=== PATIENT | female | born 1940 | race Caucasian/White ===

== ENCOUNTER 2016-06-27 18:43 | Inpatient (IN) | payer OTHER ==
[2016-06-27] MEDS ORDERED: ACETAMINOPHEN 500 MG TABLET (FP) PO ONE (19:28)
[2016-06-27] MEDS ORDERED: SODIUM CHLORIDE 1,000 ML IV SCH (19:30)
[2016-06-27] MEDS ORDERED: ACETAMINOPHEN 325 MG TABLET (FP) ONE (19:42)
[2016-06-27 19:59] LABS: BASOPHIL 0.6 % (0-2.0); EOSINOPHIL 0.2 % (0-4.5); MCHC 31.1 g/dl (32.0-36.0); MEAN CELL VOLUME 73.9 fl (80-96); MEAN PLT VOLUME 8.9 fl (7.5-11.1); NEUTROPHILS 87.9 % (42.8-82.8); PLATELET COUNT 260 K/MM3 (134-434); RDW 16.8 % (11.6-15.6); WHITE BLOOD COUNT 10.4 K/mm3 (4.0-10.0)
[2016-06-27 20:17] LABS: ALBUMIN 3.2 g/dl (3.4-5.0); ANION GAP 13 (8-16); BILIRUBIN,TOTAL 0.5 mg/dL (0.2-1.0); CALCIUM 8.3 mg/dL (8.5-10.1); CO2 25 mmol/L (21-32); COCKROFT - GAULT 87.3375; CREATININE 0.7 mg/dL (0.55-1.02); GLUCOSE,RANDOM 146 mg/dL (74-106); SGPT/ALT 31 U/L (12-78); TOT PROT 6.6 g/dl (6.4-8.2)
[2016-06-27 20:20] LABS: ALK PHOS 116 U/L (45-117); TROPONIN I 0.05 ng/ml (0.00-0.05)
[2016-06-27 20:43] LABS: SGOT/AST 32 U/L (15-37)
[2016-06-27] MEDS ORDERED: LEVOFLOXACIN 500 MG IVPB 100 ML IVPB ONE ×2 (21:55→22:02)
[2016-06-27] MEDS ORDERED: methylPREDNISolone NA SUCC 125 MG/2 ML VIAL IVPB ONE (22:00)
[2016-06-27] MEDS ORDERED: FUROSEMIDE 40 MG/4 ML INJECTABLE VIAL IVPUSH ONE (22:13)
--- NOTE | 2016-06-27 22:14 | PDOC ---
History of Present Illness - General Chief Complaint: SIRS, Suspected/Possible Stated Complaint: SHORTNESS OF BREATH Time Seen by Provider: 06/27/16 19:09 History Source: Patient, Significant Other Exam Limitations: No Limitations - History of Present Illness Initial Comments: 06/27/16 22:00 76yo Female patient w/ PmHx: DM, HTN, Afib- Coumadin 6mg daily, Pacemaker, PNA ( 2 weeks from today) presents to ED c/o weakness, SOB, Cough, fever, nausea, lower extremity swelling for past couple "weeks." Patient states she was recently diagnosed with PNA but does not remember what ABX was given. She denies CP, Abd pain, Back pain, vomiting, diarrhea, dysuria, hematuria, or any other complaints at this time. PCP- Dr. Maher Timing/Duration: reports: week Severity: reports: moderate Possible Cause: Yes: illness exposure Modifying Factors: improves with: rest Associated Symptoms: reports: cough, shortness of breath Aspirin Received prior to arrival: Yes: provided at home ASA Contraindications(Core Measure): Yes: Receiving Warfarin Beta Ying Given by EMS(Core Measure): No Beta Ying Taken at Home(Core Measure): Yes Beta Ying Not Indicated at this Time(Core Measure): No Past History - Travel Traveled outside of the country in the last 30 days: No Close contact w/someone who was outside of country & ill: No - Past Medical History Allergies/Adverse Reactions: Allergies Allergy/AdvReac Type Severity Reaction Status Date / Time No Known Allergies Allergy Verified 06/27/16 18:55 Cardiac Disorders: Yes Diabetes: Yes - Surgical History Cardiac Surgery: Yes (pacemaker) - Psycho/Social/Smoking Cessation Hx Suicidal Ideation: No Smoking History: Former smoker Have you smoked in the past 12 months: No Information on smoking cessation initiated: No Hx Alcohol Use: No Drug/Substance Use Hx: No Respiratory Specific PMHX - Complaint Specific PMHX Angina: No Bronchitis: No Pneumonia: Yes Pulmonary Embolus: No TB (Tuberculosis): No Review of Systems - Review of Systems Able to Perform ROS?: Yes Is the patient limited Z[place]ian proficient: No Constitutional: Yes: Chills, Fever, Weakness Respiratory: Yes: Cough, Shortness of Breath, SOB with Exertion. No: SOB at Rest, Stridor, Wheezing, Productive cough Cardiac (ROS): No: Chest Pain, Lightheadedness, Palpitations, Syncope, Chest Tightness ABD/GI: Yes: Nausea. No: Constipated, Diarrhea, Poor Appetite, Poor Fluid Intake, Rectal Bleeding, Vomiting : No: Dysuria, Flank Pain, Hematuria Musculoskeletal: No: Back Pain, Muscle Pain, Muscle Weakness, Neck Pain Integumentary: No: Bruising, Erythema, Rash, Sweating Neurological: No: Headache, Seizure, Ataxia, Dizziness All Other Systems: Reviewed and Negative *Physical Exam - Vital Signs Last Vital Signs Temp Pulse Resp BP Pulse Ox 101.1 F H 130 H 26 H 161/101 85 L 06/27/16 18:56 06/27/16 18:56 06/27/16 18:56 06/27/16 18:56 06/27/16 18:56 - Physical Exam General Appearance: Yes: Nourished, Appropriately Dressed, Mild Distress. No: Apparent Distress, Moderate Distress, Severe Distress HEENT: positive: EOMI, SHASHANK, Normal ENT Inspection, Normal Voice, Symmetrical, TMs Normal (Bilateral Cerumen impaction (soft)), Pharynx Normal Neck: positive: Trachea midline, Supple Respiratory/Chest: positive: Labored Respiration (On exerction), Crackles (Dry Bibasilar). negative: Respiratory Distress, Accessory Muscle Use Cardiovascular: positive: Edema (Bilateral LE), Irregularly Irregular Gastrointestinal/Abdominal: positive: Normal Bowel Sounds, Soft. negative: Distended, Guarding, Rebound, Tenderness Musculoskeletal: positive: Normal Inspection. negative: CVA Tenderness Extremity: positive: Normal Capillary Refill, Normal Inspection, Normal Range of Motion, Pedal Edema, Swelling. 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 NML intact, Fully Oriented, Alert, Normal Mood/ Affect, Normal Response Heart Score/ECG Review - History History: Slightly suspicious - Electrocardiogram EKG: Normal - Age Age: >/= 65 - Risk Factors Risk Factors Heart Score: Yes Hx Hypercholesterolemia, Yes Hx Hypertension, Yes Hx Diabetes, No Smoking History, No Positive family hx of cardiac disease, No Hx Obesity Based on the list above the patient has:: >/=3 risk factors or Hx atherosclerotic disease - Troponin Troponin: </= normal limit - Score Heart Score - Total: 4 - ECG Impressions Normal ECG: No Non-specific ST Elevation: No Ischemic Changes: No Bradycardia: No Tachycardia: Afib w/rapid Vent rate Torsades kostas Pointes: No WPW: No ED Treatment Course - LABORATORY CBC & Chemistry Diagram: 06/27/16 19:35 06/27/16 19:35 - ADDITIONAL ORDERS Additional order review: Laboratory Results 06/27/16 06/27/16 19:35 19:35 Sodium 139 Potassium 4.2 Chloride 101 Carbon Dioxide 25 Anion Gap 13 BUN 14 Creatinine 0.7 Creat Clearance w eGFR > 60 Random Glucose 146 H Lactic Acid 1.912 Calcium 8.3 L Total Bilirubin 0.5 AST 32 ALT 31 Alkaline Phosphatase 116 Creatine Kinase 63 Troponin I 0.05 B-Natriuretic Peptide 836.90 H Total Protein 6.6 Albumin 3.2 L 06/27/16 19:40 Influenza Types A,B Antigen (FINESSE) - Final Nasopharyngeal Swab - Final 06/27/16 19:35 RBC 4.73 MCV 73.9 L MCHC 31.1 L RDW 16.8 H MPV 8.9 Neutrophils % 87.9 H Lymphocytes % 6.4 L Monocytes % 4.9 Eosinophils % 0.2 Basophils % 0.6 - RADIOLOGY Radiology Studies Ordered: Category Date Time Status CHEST PA & LAT [RAD] Stat Radiology 06/27/16 19:26 Completed - Medications Given in the ED: ED Medications Discontinued Medications Generic Name Dose Route Start Last Admin Trade Name Freq PRN Reason Stop Dose Admin Acetaminophen 1,000 mg 06/27/16 19:28 06/27/16 19:55 Tylenol - PO 06/27/16 19:29 1,000 mg ONCE ONE Administration *DC/Admit/Observation/Transfer Diagnosis at time of Disposition: Pneumonia Qualifiers: Pneumonia type: due to unspecified organism Laterality: right Lung location: middle lobe of lung Qualified Code(s): J18.1 - Lobar pneumonia, unspecified organism CHF exacerbation Qualifiers: Congestive heart failure type: unspecified congestive heart failure type Qualified Code(s): I50.9 - Heart failure, unspecified - Discharge Dispostion Condition at time of disposition: Fair Admit: Yes - Referrals Referrals: Lily Maher MD [Primary Care Provider] -
[2016-06-27 22:22] LABS: URINE APPEARANCE CLEAR; URINE BILIRUBIN NEGATIVE (NEGATIVE); URINE BLOOD NEGATIVE (NEGATIVE); URINE COLOR YELLOW; URINE GLUCOSE (UA) NEGATIVE (NEGATIVE); URINE KETONE NEGATIVE (NEGATIVE); URINE NITRITE NEGATIVE (NEGATIVE); URINE UROBILINOGEN NEGATIVE E.U./dl (0.2-1.0)
[2016-06-27 22:31] LABS: URINE LEUK ESTERASE 2+ (NEGATIVE); URINE PROTEIN 2+ (NEGATIVE)
[2016-06-27 22:32] LABS: URINE HYALINE CAST 1 /lpf; URINE MUCUS RARE; URINE RBC 2 /hpf (0-3); URINE WBC 21 /hpf (3-5)
[2016-06-27 22:36] LABS: INR 2.59 (0.82-1.09); PROTHROMBIN TIME (PATIENT) 29.1 SEC (9.98-11.88)
[2016-06-27 22:39] LABS: ACTIVATED PTT 39.1 SECONDS (26.9-34.4)
[2016-06-27] MEDS ORDERED: methylPREDNISolone NA SUCC 125 MG/2 ML VIAL ONE (23:40)
[2016-06-27] MEDS ORDERED: FUROSEMIDE 40 MG/4 ML INJECTABLE VIAL ONE (23:41)
[2016-06-28 01:24] LABS: TROPONIN I 0.05 ng/ml (0.00-0.05)
[2016-06-28 04:17] VITALS: BMI 29.2
[2016-06-28 07:04] LABS: MCH 22.7 pg (25.7-33.7); MCHC 30.5 g/dl (32.0-36.0); MEAN CELL VOLUME 74.2 fl (80-96); PLATELET COUNT 280 K/MM3 (134-434); RDW 16.7 % (11.6-15.6); WHITE BLOOD COUNT 7.3 K/mm3 (4.0-10.0)
[2016-06-28 07:24] LABS: INR 2.41 (0.82-1.09)
[2016-06-28 07:51] LABS: ALBUMIN 3.2 g/dl (3.4-5.0); ANION GAP 14 (8-16); CALCIUM 8.6 mg/dL (8.5-10.1); CO2 25 mmol/L (21-32); SGOT/AST 25 U/L (15-37); SGPT/ALT 32 U/L (12-78)
[2016-06-28 07:54] LABS: ALK PHOS 118 U/L (45-117); COCKROFT - GAULT 66.9885; CREATININE 0.9 mg/dL (0.55-1.02); TOT PROT 6.8 g/dl (6.4-8.2)
[2016-06-28 08:15] LABS: GLUCOSE,RANDOM 321 mg/dL (74-106)
[2016-06-28] MEDS ORDERED: FUROSEMIDE 40 MG/4 ML INJECTABLE VIAL ONE (09:38)
[2016-06-28] MEDS: FUROSEMIDE 40 MG/4 ML INJECTABLE VIAL IVPUSH SCH (09:41)
[2016-06-28] MEDS: METOPROLOL SUCCINATE 50 MG TAB.SR.24H (FP) PO SCH (09:41)
[2016-06-28] MEDS ORDERED: PNEUMOC 13-VAL CONJ-DIP CRM/PF 0.5 ML DISP.SYRIN IM ONE (10:00)
[2016-06-28] MEDS ORDERED: INSULIN (NOVOLOG) ASPART 100 UNITS/ML 10ML VIAL SQ ONE (10:06)
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
--- NOTE | 2016-06-28 10:13 | HP ---
Admitting History and Physical - Primary Care Physician PCP: Caleb Fischer - Admission History of Present Illness: Pt came to ER with SOB, fever, leg edema; pt was admitted for PNA, CHF exacerbation. Pt states that was treated for PNA 2 to 4 weeks ago (now sure about receiving an abtx). Pt with Hx/o COPD (former long time smoker, quit in 2009). Pt. 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 Pt is not sure about her meds, states that is taking Lasix, Levemir (30 units QAM), Humulog (5 units BID); she is not sure about the rest of them (family to bring them in). History Source: Patient - Past Medical History Cardiovascular: Yes: AFIB (on AC), HTN Endocrine: Yes: Diabetes Mellitus - Smoking History Smoking history: Former smoker Have you smoked in the past 12 months: No If you are a former smoker, when did you quit?: 2009 - Alcohol/Substance Use Hx Alcohol Use: No Home Medications - Allergies Allergies/Adverse Reactions: Allergies Allergy/AdvReac Type Severity Reaction Status Date / Time No Known Allergies Allergy Verified 06/27/16 18:55 - Home Medications Home Medications: Ambulatory Orders Amlodipine Besylate [Norvasc -] 10 mg PO DAILY 06/28/16 Aspirin [ASA -] 81 mg PO DAILY 06/28/16 Digoxin [Lanoxin -] 0.125 mg PO DAILY 06/28/16 Furosemide 20 mg PO DAILY 06/28/16 Insulin (Levemir) [Levemir Flexpen -] 30 units SQ DAILY 06/28/16 Lisinopril 10 mg PO DAILY 06/28/16 Metformin HCl [Glucophage] 1,000 mg PO DAILY 06/28/16 Metoprolol Succinate [Toprol Xl] 50 mg PO DAILY 06/28/16 Simvastatin 10 mg PO DAILY 06/28/16 Warfarin Sodium [Coumadin] 5 mg PO 06/28/16 Warfarin Sodium [Coumadin] 6 mg PO 06/28/16 Review of Systems - Review of Systems Constitutional: reports: Fever. denies: Night Sweats Eyes: denies: Blurred Vision, Photophobia HENT: denies: Difficult Swallowing, Ear Discharge, Ear Pain, Epistaxis Neck: denies: Stiffness Cardiovascular: reports: Edema, Shortness of Breath. denies: Chest Pain, Palpitations Respiratory: reports: Cough. denies: Hemoptysis Gastrointestinal: denies: Abdominal Pain, Diarrhea, Vomiting Genitourinary: denies: Burning, Discharge Musculoskeletal: denies: Back Pain, Extremity Pain, Joint Pain, Joint Swelling Integumentary: denies: Bruising, Eczema, Erythema Neurological: denies: Change in LOC, Dizziness, Headache, Syncope Endocrine: denies: Excessive Sweating, Intolerance to Cold Psychiatric: denies: Anxiety, Depression Physical Examination Vital Signs: Vital Signs Temperature 98.3 F 06/28/16 06:00 Pulse Rate 115 H 06/28/16 06:00 Respiratory Rate 20 06/28/16 06:00 Blood Pressure 121/80 06/28/16 06:00 O2 Sat by Pulse Oximetry (%) 94 L 06/28/16 03:45 Constitutional: Yes: No Distress, Calm Eyes: Yes: Conjunctiva Clear, EOM Intact, PERRL HENT: No: Epistaxis, Nasal Congestion Neck: Yes: Trachea Midline. No: Lymphadenopathy Cardiovascular: Yes: Regular Rate and Rhythm, S1, S2 Respiratory: Yes: Regular, Rhonchi (At right base) Gastrointestinal: Yes: Normal Bowel Sounds, Soft. No: Distention, Tenderness ...Rectal Exam: Yes: Deferred Renal/: No: CVA Tenderness - Left, CVA Tenderness - Right Breast(s): Yes: Other (deferred) Musculoskeletal: No: Back Pain, Joint Swelling Edema: LLE: Trace, RLE: Trace Integumentary: No: Bruising, Jaundice, Petechiae Neurological: Yes: Alert, Oriented, Cran Nerves II-XII Intact Labs: CBC, BMP 06/28/16 06:00 06/28/16 06:00 Imaging - Results Chest X-ray: Report Reviewed, Image Reviewed Problem List - Problems (1) Atrial fibrillation Code(s): I48.91 - UNSPECIFIED ATRIAL FIBRILLATION (2) CHF exacerbation Code(s): I50.9 - HEART FAILURE, UNSPECIFIED Qualifiers: Congestive heart failure type: unspecified congestive heart failure type Qualified Code(s): I50.9 - Heart failure, unspecified (3) Diabetes Code(s): E11.9 - TYPE 2 DIABETES MELLITUS WITHOUT COMPLICATIONS (4) Pneumonia Code(s): J18.9 - PNEUMONIA, UNSPECIFIED ORGANISM Qualifiers: Pneumonia type: due to unspecified organism Laterality: right Lung location: middle lobe of lung Qualified Code(s): J18.1 - Lobar pneumonia, unspecified organism Assessment/Plan IV abtx IV Lasix Pulmonary consult Cardio consult- case was reviewed with Dr. Davalos To obtain complete medication list- pt nurse to call me when list becames available Echo AM labs
[2016-06-28] MEDS: INSULIN DETEMIR 100 UNITS/ML MDV SQ SCH (10:29)
--- NOTE | 2016-06-28 13:27 | EKG ---
Test Reason : Blood Pressure : / mmHG Vent. Rate : 112 BPM Atrial Rate : 129 BPM P-R Int : 000 ms QRS Dur : 076 ms QT Int : 262 ms P-R-T Axes : 000 049 160 degrees QTc Int : 357 ms ATRIAL FIBRILLATION WITH RAPID VENTRICULAR RESPONSE LOW VOLTAGE QRS ABNORMAL ECG WHEN COMPARED WITH ECG OF 14-MAR-2009 10:02, ATRIAL FIBRILLATION HAS REPLACED SINUS RHYTHM ST NO LONGER DEPRESSED IN ANTERIOR LEADS NONSPECIFIC T WAVE ABNORMALITY NOW EVIDENT IN INFERIOR LEADS INVERTED T WAVES HAVE REPLACED NONSPECIFIC T WAVE ABNORMALITY IN LATERAL LEADS Confirmed by JOANN MARTINEZ MD ([id number]) on 06/28/2016 1:26:51 PM Referred By: Confirmed By:JOANN MARTINEZ MD
--- NOTE | 2016-06-28 14:15 | CON.PULM ---
Consult Consult Specialty:: PULMONARY Referred by:: Dr. Fischer Reason for Consultation:: shortness of breath - History of Present Illness Chief Complaint: shortness of breath History of Present Illness: 76yo female with h/o HTN, hyperlipidemia, DM CHF, atrial fibrillation s/p PPM who presents with worsening shortness of breath x 2 weeks. She driss any chest pain or palpitations. No fevers, chills or sweats although noted to be febrile in the ER to 101. +nonproductive cough and chest congestion with wheezing. She reports increase in her leg swelling but no orthopnea. She was placed on a course of antibiotics as an outpt. She is a former smoker but denies any history of asthma or COPD. 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 - History Source History Provided By: Patient, Significant Other Limitations to Obtaining History: No Limitations - Past Medical History Cardio/Vascular: Yes: AFIB, CHF, HTN, Hyperlipdemia Endocrine: Yes: Diabetes Mellitus - Alcohol/Substance Use Hx Alcohol Use: No - Smoking History Smoking history: Former smoker Have you smoked in the past 12 months: No If you are a former smoker, when did you quit?: 2009 Home Medications - Allergies Allergies/Adverse Reactions: Allergies Allergy/AdvReac Type Severity Reaction Status Date / Time No Known Allergies Allergy Verified 06/27/16 18:55 - Home Medications Home Medications: Ambulatory Orders Amlodipine Besylate [Norvasc -] 10 mg PO DAILY 06/28/16 Aspirin [ASA -] 81 mg PO DAILY 06/28/16 Digoxin [Lanoxin -] 0.125 mg PO DAILY 06/28/16 Furosemide 20 mg PO DAILY 06/28/16 Insulin (Levemir) [Levemir Flexpen -] 30 units SQ DAILY 06/28/16 Lisinopril 10 mg PO DAILY 06/28/16 Metformin HCl [Glucophage] 1,000 mg PO DAILY 06/28/16 Metoprolol Succinate [Toprol Xl] 50 mg PO DAILY 06/28/16 Simvastatin 10 mg PO DAILY 06/28/16 Warfarin Sodium [Coumadin] 5 mg PO 06/28/16 Warfarin Sodium [Coumadin] 6 mg PO 06/28/16 Family Disease History - Family Disease History Other Family History: non-contributory Review of Systems - Review of Systems Constitutional: denies: Chills, Fever Eyes: reports: Recent Change in Vision HENT: denies: Nasal Congestion, Throat Pain Neck: denies: Stiffness, Tenderness Cardiovascular: reports: Edema, Shortness of Breath. denies: Chest Pain, Palpitations Respiratory: reports: Cough, SOB on Exertion, Wheezing. denies: Hemoptysis Gastrointestinal: denies: Abdominal Pain, Nausea, Vomiting Genitourinary: denies: Dysuria, Hematuria Neurological: denies: Dizziness, Headache Endocrine: denies: Unexplained Weight Gain, Unexplained Weight Loss Physical Exam Vital Sings: Vital Signs Temperature 98.3 F 06/28/16 10:00 Pulse Rate 126 H 06/28/16 10:00 Respiratory Rate 20 06/28/16 10:00 Blood Pressure 128/93 06/28/16 10:00 O2 Sat by Pulse Oximetry (%) 93 L 06/28/16 09:02 Constitutional: Yes: Calm Eyes: Yes: Conjunctiva Clear, EOM Intact HENT: Yes: Atraumatic, Normocephalic Neck: Yes: Supple, Trachea Midline Cardiovascular: Yes: Regular Rate and Rhythm Respiratory: Yes: Regular, Rales (bibasilar) ...Clubbing: No Gastrointestinal: Yes: Normal Bowel Sounds, Soft. No: Tenderness Edema: Yes Neurological: Yes: Alert, Oriented Labs: CBC, BMP 06/28/16 06:00 06/28/16 06:00 Imaging - Results Chest X-ray: Report Reviewed, Image Reviewed (pulmonary vascular congestion, ? CHEN infiltrate) Problem List - Problems (1) CHF exacerbation Code(s): I50.9 - HEART FAILURE, UNSPECIFIED Qualifiers: Congestive heart failure type: unspecified congestive heart failure type Qualified Code(s): I50.9 - Heart failure, unspecified (2) UTI (urinary tract infection) Code(s): N39.0 - URINARY TRACT INFECTION, SITE NOT SPECIFIED (3) Atrial fibrillation Code(s): I48.91 - UNSPECIFIED ATRIAL FIBRILLATION (4) HTN (hypertension) Code(s): I10 - ESSENTIAL (PRIMARY) HYPERTENSION (5) Diabetes Code(s): E11.9 - TYPE 2 DIABETES MELLITUS WITHOUT COMPLICATIONS (6) Hyperlipidemia Code(s): E78.5 - HYPERLIPIDEMIA, UNSPECIFIED Assessment/Plan CHF Exacerbation Atrial Fibrillation UTI r/o Pneumonia HTN DM Hyperlipidemia - IV lasix - monitor urine output, creatinine - daily weights, I/Os - empiric antibiotics - f/u cultures - repeat CXR in AM to assess response with diuresis - rate controlled - continue anticoagulation - O2 as needed to keep SpO2 >90% - inhaled bronchodilators - can defer systemic steroids at this time Thank you for this consult Eliseo Marie MD
[2016-06-28] MEDS: WARFARIN NA 5 MG TABLET (UD) PO SCH (19:20)
[2016-06-28] MEDS: ACETAMINOPHEN 325 MG TABLET (FP) PO PRN (20:14)
[2016-06-28] MEDS ORDERED: INSULIN (NOVOLOG) ASPART 100 UNITS/ML 10ML VIAL ONE (21:25)
[2016-06-28] MEDS: INSULIN SLIDING SCALE (NOVOLOG) 1 VIAL SQ SCH (21:34)
[2016-06-28] MEDS: LEVOFLOXACIN 500 MG IVPB 100 ML IVPB SCH (21:34)
[2016-06-28] MEDS: ALBUTEROL SO4 2.5/IPRATROPIUM 0.5 INH SOL 3 ML VIAL.NEB. NEB SCH (21:58)
[2016-06-29] MEDS: INSULIN SLIDING SCALE (NOVOLOG) 1 VIAL SQ SCH ×4 (06:00→21:13)
[2016-06-29] MEDS: ALBUTEROL SO4 2.5/IPRATROPIUM 0.5 INH SOL 3 ML VIAL.NEB. NEB SCH ×3 (06:20→22:28)
[2016-06-29 06:30] LABS: INR 2.34 (0.82-1.09); PROTHROMBIN TIME (PATIENT) 26.2 SEC (9.98-11.88)
[2016-06-29 06:35] LABS: MCHC 31.4 g/dl (32.0-36.0); MEAN CELL VOLUME 73.3 fl (80-96); MEAN PLT VOLUME 8.8 fl (7.5-11.1); PLATELET COUNT 249 K/MM3 (134-434); RDW 16.5 % (11.6-15.6); WHITE BLOOD COUNT 8.6 K/mm3 (4.0-10.0)
[2016-06-29 06:55] LABS: ALBUMIN 2.9 g/dl (3.4-5.0); ANION GAP 8 (8-16); CALCIUM 8.3 mg/dL (8.5-10.1); CO2 28 mmol/L (21-32); CREATININE 0.8 mg/dL (0.55-1.02); GLUCOSE,RANDOM 94 mg/dL (74-106); SGOT/AST 26 U/L (15-37); SGPT/ALT 27 U/L (12-78)
[2016-06-29 07:09] LABS: ALK PHOS 92 U/L (45-117); BILIRUBIN,TOTAL 0.5 mg/dL (0.2-1.0); DIGOXIN LEVEL 0.2973 ng/ml (0.8-2.0); TOT PROT 5.9 g/dl (6.4-8.2)
[2016-06-29] MEDS: METOPROLOL TARTRATE 5 MG/5 ML VIAL IVPUSH PRN (07:11)
[2016-06-29] MEDS: INSULIN DETEMIR 100 UNITS/ML MDV SQ SCH (08:54)
[2016-06-29] MEDS: metFORMIN HCL 500 MG TABLET (FP) PO SCH ×2 (08:54→17:55)
[2016-06-29] MEDS: DIGOXIN 0.125 MG TABLET (FP) PO SCH (09:33)
[2016-06-29] MEDS: ASPIRIN 81 MG CHEWABLE TABLETS PO SCH (09:33)
[2016-06-29] MEDS: amLODIPine BESYLATE 10 MG TABLET (FP) PO SCH (09:34)
[2016-06-29] MEDS: METOPROLOL SUCCINATE 50 MG TAB.SR.24H (FP) PO SCH (09:34)
[2016-06-29] MEDS: FUROSEMIDE 40 MG/4 ML INJECTABLE VIAL IVPUSH SCH (09:34)
[2016-06-29] MEDS: LISINOPRIL 10 MG TABLET (FP) PO SCH (09:34)
--- NOTE | 2016-06-29 10:07 | PN ---
Progress Note, Physician History of Present Illness: Pt. with cough, [place], palpitations after nebulizer. Pt. w/o fever, CP, abd pain. N, V - Current Medication List Current Medications: Active Medications Acetaminophen (Tylenol -) 650 mg PO Q6H PRN PRN Reason: FEVER OR PAIN Last Admin: 06/28/16 20:14 Dose: 650 mg Albuterol/Ipratropium (Duoneb -) 1 amp NEB TIDR [facility] Last Admin: 06/29/16 06:20 Dose: 1 amp Amlodipine Besylate (Norvasc -) 10 mg PO DAILY [facility] Last Admin: 06/29/16 09:34 Dose: 10 mg Aspirin (Asa -) 81 mg PO DAILY [facility] Last Admin: 06/29/16 09:33 Dose: 81 mg Atorvastatin Calcium (Lipitor -) 20 mg PO [facility] Digoxin (Lanoxin -) 0.125 mg PO DAILY [facility] Last Admin: 06/29/16 09:33 Dose: 0.125 mg Furosemide (Lasix Injection -) 40 mg IVPUSH DAILY [facility] Last Admin: 06/29/16 09:34 Dose: 40 mg Levofloxacin (Levaquin 500 Mg Premixed Ivpb -) 100 mls @ 100 mls/hr IVPB HS [facility] Last Admin: 06/28/16 21:34 Dose: 100 mls/hr Insulin Aspart (Novolog Vial Sliding Scale -) 1 vial SQ ACHS [facility] PRN Reason: Protocol Last Admin: 06/29/16 06:00 Dose: Not Given Insulin Detemir (Levemir Vial) 30 units SQ ACBK [facility] Last Admin: 06/29/16 08:54 Dose: 30 unit Lisinopril (Prinivil) 10 mg PO DAILY [facility] Last Admin: 06/29/16 09:34 Dose: 10 mg Metformin HCl (Glucophage -) 1,000 mg PO BIDAC [facility] Last Admin: 06/29/16 08:54 Dose: 1,000 mg Metoprolol Succinate (Toprol Xl -) 50 mg PO DAILY [facility] Last Admin: 06/29/16 09:34 Dose: 50 mg Metoprolol Tartrate (Lopressor Injection -) 5 mg IVPUSH Q4H PRN PRN Reason: TACHYCARDIA Last Admin: 06/29/16 07:11 Dose: 5 mg Warfarin Sodium (Coumadin -) 5 mg PO [email or web address] [facility] Last Admin: 06/28/16 19:20 Dose: 5 mg Warfarin Sodium (Coumadin -) 6 mg PO [email or web address] [facility] - Objective Vital Signs: Vital Signs Temperature 98.2 F 06/29/16 06:00 Pulse Rate 128 H 06/29/16 09:33 Respiratory Rate 20 06/29/16 06:00 Blood Pressure 142/76 06/29/16 07:11 O2 Sat by Pulse Oximetry (%) 92 L 06/28/16 20:52 Constitutional: Yes: Well Nourished, No Distress Cardiovascular: Yes: Tachycardia, S1, S2 Respiratory: Yes: Regular, Rhonchi Gastrointestinal: Yes: Normal Bowel Sounds, Soft, Tenderness Edema: No Neurological: Yes: Alert, Oriented Labs: CBC, BMP 06/29/16 05:35 06/29/16 05:35 INR, PTT INR 2.34 (0.82-1.09) H 06/29/16 05:35 Problem List - Problems (1) Pneumonia Code(s): J18.9 - PNEUMONIA, UNSPECIFIED ORGANISM Qualifiers: Pneumonia type: due to unspecified organism Laterality: right Lung location: middle lobe of lung Qualified Code(s): J18.1 - Lobar pneumonia , unspecified organism (2) CHF exacerbation Code(s): I50.9 - HEART FAILURE, UNSPECIFIED Qualifiers: Congestive heart failure type: unspecified congestive heart failure type Qualified Code(s): I50.9 - Heart failure, unspecified (3) Atrial fibrillation Code(s): I48.91 - UNSPECIFIED ATRIAL FIBRILLATION (4) Diabetes Code(s): E11.9 - TYPE 2 DIABETES MELLITUS WITHOUT COMPLICATIONS Assessment/Plan IV abtx IV Lasix Pulmonary consult appreciated Cardio consult appreciated - case was reviewed with Dr. Anoop REDDING labs
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
--- NOTE | 2016-06-29 12:25 | PN ---
Progress Note, Physician History of Present Illness: PULMONARY ALERT,FEELING BETTER,LESS DYSPNEIC,+COUGH - Current Medication List Current Medications: Active Medications Acetaminophen (Tylenol -) 650 mg PO Q6H PRN PRN Reason: FEVER OR PAIN Last Admin: 06/28/16 20:14 Dose: 650 mg Albuterol/Ipratropium (Duoneb -) 1 amp NEB TIDR [facility] Last Admin: 06/29/16 06:20 Dose: 1 amp Amlodipine Besylate (Norvasc -) 10 mg PO DAILY [facility] Last Admin: 06/29/16 09:34 Dose: 10 mg Aspirin (Asa -) 81 mg PO DAILY [facility] Last Admin: 06/29/16 09:33 Dose: 81 mg Atorvastatin Calcium (Lipitor -) 20 mg PO [facility] Digoxin (Lanoxin -) 0.125 mg PO DAILY [facility] Last Admin: 06/29/16 09:33 Dose: 0.125 mg Furosemide (Lasix Injection -) 40 mg IVPUSH DAILY [facility] Last Admin: 06/29/16 09:34 Dose: 40 mg Levofloxacin (Levaquin 500 Mg Premixed Ivpb -) 100 mls @ 100 mls/hr IVPB [facility] Last Admin: 06/28/16 21:34 Dose: 100 mls/hr Insulin Aspart (Novolog Vial Sliding Scale -) 1 vial SQ ACHS [facility] PRN Reason: Protocol Last Admin: 06/29/16 06:00 Dose: Not Given Insulin Detemir (Levemir Vial) 30 units SQ ACBK [facility] Last Admin: 06/29/16 08:54 Dose: 30 unit Lisinopril (Prinivil) 10 mg PO DAILY [facility] Last Admin: 06/29/16 09:34 Dose: 10 mg Metformin HCl (Glucophage -) 1,000 mg PO BIDAC [facility] Last Admin: 06/29/16 08:54 Dose: 1,000 mg Metoprolol Succinate (Toprol Xl -) 50 mg PO DAILY [facility] Last Admin: 06/29/16 09:34 Dose: 50 mg Metoprolol Tartrate (Lopressor Injection -) 5 mg IVPUSH Q4H PRN PRN Reason: TACHYCARDIA Last Admin: 06/29/16 07:11 Dose: 5 mg Warfarin Sodium (Coumadin -) 5 mg PO SuTuThSa@18 [facility] Last Admin: 06/28/16 19:20 Dose: 5 mg Warfarin Sodium (Coumadin -) 6 mg PO MoWeFr@1800 [facility] - Objective Vital Signs: Vital Signs Temperature 98.2 F 06/29/16 06:00 Pulse Rate 128 H 06/29/16 09:33 Respiratory Rate 20 06/29/16 06:00 Blood Pressure 142/76 06/29/16 07:11 O2 Sat by Pulse Oximetry (%) 92 L 06/28/16 20:52 Constitutional: Yes: Well Nourished, Calm Eyes: Yes: WNL HENT: Yes: WNL Neck: Yes: WNL Cardiovascular: Yes: Pulse Irregular, S1, S2 Respiratory: Yes: Rales (BIBASILAR RALES) Gastrointestinal: Yes: Normal Bowel Sounds, Soft Extremities: Yes: WNL Edema: Yes Edema: LLE: Trace, RLE: Trace Labs: CBC, BMP 06/29/16 05:35 06/29/16 05:35 INR, PTT INR 2.34 (0.82-1.09) H 06/29/16 05:35 Assessment/Plan Problem List - Problems (1) CHF exacerbation Code(s): I50.9 - HEART FAILURE, UNSPECIFIED Qualifiers: Congestive heart failure type: unspecified congestive heart failure type Qualified Code(s): I50.9 - Heart failure, unspecified (2) UTI (urinary tract infection) Code(s): N39.0 - URINARY TRACT INFECTION, SITE NOT SPECIFIED (3) Atrial fibrillation Code(s): I48.91 - UNSPECIFIED ATRIAL FIBRILLATION (4) HTN (hypertension) Code(s): I10 - ESSENTIAL (PRIMARY) HYPERTENSION (5) Diabetes Code(s): E11.9 - TYPE 2 DIABETES MELLITUS WITHOUT COMPLICATIONS (6) Hyperlipidemia Code(s): E78.5 - HYPERLIPIDEMIA, UNSPECIFIED Assessment/Plan CHF Exacerbation Atrial Fibrillation UTI r/o Pneumonia HTN DM Hyperlipidemia - IV lasix - monitor urine output, creatinine - daily weights, I/Os - empiric antibiotics - repeat CXR in AM - rate controlled - continue anticoagulation - O2 as needed to keep SpO2 >90% - inhaled bronchodilators - DR SALAZAR
[2016-06-29] MEDS: WARFARIN NA 3 MG TABLET PO SCH (17:55)
[2016-06-29] MEDS: LEVOFLOXACIN 500 MG IVPB 100 ML IVPB SCH (21:12)
[2016-06-29] MEDS: ATORVASTATIN CA 20 MG TABLET (FP) PO SCH (21:13)
[2016-06-30] MEDS: INSULIN DETEMIR 100 UNITS/ML MDV SQ SCH ×2 (06:06→09:30)
[2016-06-30] MEDS: metFORMIN HCL 500 MG TABLET (FP) PO SCH ×2 (06:07→17:07)
[2016-06-30] MEDS: INSULIN SLIDING SCALE (NOVOLOG) 1 VIAL SQ SCH ×4 (06:11→22:11)
[2016-06-30] MEDS: ALBUTEROL SO4 2.5/IPRATROPIUM 0.5 INH SOL 3 ML VIAL.NEB. NEB SCH (06:35)
[2016-06-30 07:46] LABS: INR 2.52 (0.82-1.09); PROTHROMBIN TIME (PATIENT) 28.2 SEC (9.98-11.88)
[2016-06-30 07:58] LABS: CALCIUM 8.3 mg/dL (8.5-10.1); COCKROFT - GAULT 85.323; CREATININE 0.7 mg/dL (0.55-1.02)
[2016-06-30] MEDS: DIGOXIN 0.125 MG TABLET (FP) PO SCH (09:08)
[2016-06-30] MEDS: ASPIRIN 81 MG CHEWABLE TABLETS PO SCH (09:08)
[2016-06-30] MEDS: amLODIPine BESYLATE 10 MG TABLET (FP) PO SCH (09:09)
[2016-06-30] MEDS: LISINOPRIL 10 MG TABLET (FP) PO SCH (09:09)
[2016-06-30] MEDS: FUROSEMIDE 40 MG/4 ML INJECTABLE VIAL IVPUSH SCH (09:09)
[2016-06-30] MEDS: METOPROLOL SUCCINATE 50 MG TAB.SR.24H (FP) PO SCH ×3 (09:09→22:13)
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
[2016-06-30] MEDS: METOPROLOL TARTRATE 5 MG/5 ML VIAL IVPUSH PRN (10:03)
[2016-06-30] MEDS ORDERED: INSULIN (NOVOLOG) ASPART 100 UNITS/ML 10ML VIAL ONE (11:37)
--- NOTE | 2016-06-30 11:56 | PN ---
Progress Note, Physician History of Present Illness: Pt. with cough, [place], palpitations after nebulizer. Pt. w/o fever, CP, abd pain. N, V - Current Medication List Current Medications: Active Medications Acetaminophen (Tylenol -) 650 mg PO Q6H PRN PRN Reason: FEVER OR PAIN Last Admin: 06/28/16 20:14 Dose: 650 mg Albuterol/Ipratropium (Duoneb -) 1 amp NEB TIDR [facility] Last Admin: 06/30/16 06:35 Dose: 1 amp Amlodipine Besylate (Norvasc -) 10 mg PO DAILY [facility] Last Admin: 06/30/16 09:09 Dose: 10 mg Aspirin (Asa -) 81 mg PO DAILY [facility] Last Admin: 06/30/16 09:08 Dose: 81 mg Atorvastatin Calcium (Lipitor -) 20 mg PO HS [facility] Last Admin: 06/29/16 21:13 Dose: 20 mg Digoxin (Lanoxin -) 0.125 mg PO DAILY [facility] Last Admin: 06/30/16 09:08 Dose: 0.125 mg Furosemide (Lasix Injection -) 40 mg IVPUSH DAILY [facility] Last Admin: 06/30/16 09:09 Dose: 40 mg Levofloxacin (Levaquin 500 Mg Premixed Ivpb -) 100 mls @ 100 mls/hr IVPB [facility] Last Admin: 06/29/16 21:12 Dose: 100 mls/hr Insulin Aspart (Novolog Vial Sliding Scale -) 1 vial SQ ACHS [facility] PRN Reason: Protocol Last Admin: 06/30/16 06:11 Dose: Not Given Insulin Detemir (Levemir Vial) 30 units SQ ACBK [facility] Last Admin: 06/30/16 09:30 Dose: 30 unit Lisinopril (Prinivil) 10 mg PO DAILY [facility] Last Admin: 06/30/16 09:09 Dose: 10 mg Metformin HCl (Glucophage -) 1,000 mg PO BIDAC [facility] Last Admin: 06/30/16 06:07 Dose: 1,000 mg Metoprolol Succinate (Toprol Xl -) 50 mg PO BID [facility] Metoprolol Tartrate (Lopressor Injection -) 5 mg IVPUSH Q4H PRN PRN Reason: TACHYCARDIA Last Admin: 06/30/16 10:03 Dose: 5 mg Warfarin Sodium (Coumadin -) 5 mg PO SuTuThSa@18 [facility] Last Admin: 06/28/16 19:20 Dose: 5 mg Warfarin Sodium (Coumadin -) 6 mg PO MoWeFr@1800 [facility] Last Admin: 06/29/16 17:55 Dose: 6 mg - Objective Vital Signs: Vital Signs Temperature 98 F 06/30/16 06:00 Pulse Rate 130 H 06/30/16 10:03 Respiratory Rate 18 06/30/16 06:00 Blood Pressure 124/66 06/30/16 10:03 O2 Sat by Pulse Oximetry (%) 96 06/29/16 22:00 Constitutional: Yes: No Distress, Calm Cardiovascular: Yes: Regular Rate and Rhythm, Tachycardia, S1, S2 Respiratory: Yes: Regular, Rhonchi, Wheezes (scatterred) Gastrointestinal: Yes: Normal Bowel Sounds, Soft, Tenderness Edema: LLE: Trace, RLE: Trace Labs: CBC, BMP 06/29/16 05:35 06/30/16 06:00 INR, PTT INR 2.52 (0.82-1.09) H 06/30/16 06:00 Problem List - Problems (1) Pneumonia Code(s): J18.9 - PNEUMONIA, UNSPECIFIED ORGANISM Qualifiers: Pneumonia type: due to unspecified organism Laterality: right Lung location: middle lobe of lung Qualified Code(s): J18.1 - Lobar pneumonia , unspecified organism (2) CHF exacerbation Code(s): I50.9 - HEART FAILURE, UNSPECIFIED Qualifiers: Congestive heart failure type: unspecified congestive heart failure type Qualified Code(s): I50.9 - Heart failure, unspecified (3) Atrial fibrillation Code(s): I48.91 - UNSPECIFIED ATRIAL FIBRILLATION (4) Diabetes Code(s): E11.9 - TYPE 2 DIABETES MELLITUS WITHOUT COMPLICATIONS (5) HTN (hypertension) Code(s): I10 - ESSENTIAL (PRIMARY) HYPERTENSION (6) UTI (urinary tract infection) Code(s): N39.0 - URINARY TRACT INFECTION, SITE NOT SPECIFIED (7) Tachycardia Code(s): R00.0 - TACHYCARDIA, UNSPECIFIED Assessment/Plan IV abtx IV Lasix Pulmonary consult appreciated Cardio consult appreciated AM labs
--- NOTE | 2016-06-30 12:55 | PN ---
Progress Note (short form) - Note Progress Note: OOB to chair having lunch. Feels overall better, but still with congested cough. No CP. (?) Palpitations related to BD TX Intake & Output 06/27/16 06/28/16 06/29/16 06/30/16 23:59 23:59 23:59 23:59 Intake Total 760 100 350 Balance 760 100 350 Weight 173 lb 170 lb 9.6 oz 169 lb Last Vital Signs Temp Pulse Resp BP Pulse Ox 98.7 F 130 H 20 124/66 96 06/30/16 09:00 06/30/16 10:03 06/30/16 09:00 06/30/16 10:03 06/29/16 22:00 Active Medications Acetaminophen (Tylenol -) 650 mg PO Q6H PRN PRN Reason: FEVER OR PAIN Last Admin: 06/28/16 20:14 Dose: 650 mg Albuterol/Ipratropium (Duoneb -) 1 amp NEB TIDR [facility] Last Admin: 06/30/16 06:35 Dose: 1 amp Amlodipine Besylate (Norvasc -) 10 mg PO DAILY [facility] Last Admin: 06/30/16 09:09 Dose: 10 mg Aspirin (Asa -) 81 mg PO DAILY [facility] Last Admin: 06/30/16 09:08 Dose: 81 mg Atorvastatin Calcium (Lipitor -) 20 mg PO HS [facility] Last Admin: 06/29/16 21:13 Dose: 20 mg Digoxin (Lanoxin -) 0.125 mg PO DAILY [facility] Last Admin: 06/30/16 09:08 Dose: 0.125 mg Furosemide (Lasix Injection -) 40 mg IVPUSH DAILY [facility] Last Admin: 06/30/16 09:09 Dose: 40 mg Levofloxacin (Levaquin 500 Mg Premixed Ivpb -) 100 mls @ 100 mls/hr IVPB HS [facility] Last Admin: 06/29/16 21:12 Dose: 100 mls/hr Insulin Aspart (Novolog Vial Sliding Scale -) 1 vial SQ ACHS [facility] PRN Reason: Protocol Last Admin: 06/30/16 06:11 Dose: Not Given Insulin Detemir (Levemir Vial) 30 units SQ ACBK [facility] Last Admin: 06/30/16 09:30 Dose: 30 unit Lisinopril (Prinivil) 10 mg PO DAILY [facility] Last Admin: 06/30/16 09:09 Dose: 10 mg Metformin HCl (Glucophage -) 1,000 mg [facility] Last Admin: 06/30/16 06:07 Dose: 1,000 mg Metoprolol Succinate (Toprol Xl -) 50 mg PO BID [facility] Metoprolol Tartrate (Lopressor Injection -) 5 mg IVPUSH Q4H PRN PRN Reason: TACHYCARDIA Last Admin: 06/30/16 10:03 Dose: 5 mg Warfarin Sodium (Coumadin -) 5 mg PO SuTuThSa@18 [facility] Last Admin: 06/28/16 19:20 Dose: 5 mg Warfarin Sodium (Coumadin -) 6 mg PO MoWeFr@1800 [facility] Last Admin: 06/29/16 17:55 Dose: 6 mg Constitutional: Yes: NAD Eyes: Yes: WNL HENT: Yes: WNL Neck: Yes: WNL Cardiovascular: Yes: Pulse Irregular, S1, S2 Respiratory: Yes: Scattered bilateral rhonchi Gastrointestinal: Yes: Normal Bowel Sounds, Soft Extremities: Yes: WNL Edema: Yes Edema: LLE: Trace, RLE: Trace Labs: Laboratory Results - last 24 hr 06/29/16 06/29/16 06/30/16 17:06 21:10 05:39 INR Sodium Potassium Chloride Carbon Dioxide Anion Gap BUN Creatinine POC Glucometer 93 104 112 Random Glucose Calcium 06/30/16 06/30/16 06/30/16 06:00 06:00 11:42 INR 2.52 H Sodium 140 Potassium 4.0 Chloride 103 Carbon Dioxide 28 Anion Gap 9 BUN 16 D Creatinine 0.7 POC Glucometer 246 Random Glucose 127 H D Calcium 8.3 L Assessment/Plan Problem List - Problems (1) CHF exacerbation Code(s): I50.9 - HEART FAILURE, UNSPECIFIED Qualifiers: Congestive heart failure type: unspecified congestive heart failure type Qualified Code(s): I50.9 - Heart failure, unspecified (2) UTI (urinary tract infection) Code(s): N39.0 - URINARY TRACT INFECTION, SITE NOT SPECIFIED (3) Atrial fibrillation Code(s): I48.91 - UNSPECIFIED ATRIAL FIBRILLATION (4) HTN (hypertension) Code(s): I10 - ESSENTIAL (PRIMARY) HYPERTENSION (5) Diabetes Code(s): E11.9 - TYPE 2 DIABETES MELLITUS WITHOUT COMPLICATIONS (6) Hyperlipidemia Code(s): E78.5 - HYPERLIPIDEMIA, UNSPECIFIED Assessment/Plan CHF Exacerbation Atrial Fibrillation UTI Suspected Pneumonia HTN DM Hyperlipidemia - Lasix - monitor urine output, creatinine - daily weights, I/Os - ABX - rate controlled - continue anticoagulation - O2 as needed to keep SpO2 >90% - Change BD TX to just Atrovendelia Stover
[2016-06-30] MEDS: IPRATROPIUM BR 0.02% 0.5 MG/2.5 ML VIAL.NEB. NEB SCH ×2 (14:21→22:55)
[2016-06-30] MEDS: WARFARIN NA 5 MG TABLET (UD) PO SCH (17:09)
[2016-06-30] MEDS: ATORVASTATIN CA 20 MG TABLET (FP) PO SCH (22:18)
[2016-06-30] MEDS: LEVOFLOXACIN 500 MG IVPB 100 ML IVPB SCH (22:18)
[2016-06-30] MEDS: ACETAMINOPHEN 325 MG TABLET (FP) PO PRN (23:43)
[2016-07-01] MEDS: IPRATROPIUM BR 0.02% 0.5 MG/2.5 ML VIAL.NEB. NEB SCH ×3 (06:09→21:56)
[2016-07-01] MEDS: metFORMIN HCL 500 MG TABLET (FP) PO SCH ×2 (06:15→17:31)
[2016-07-01] MEDS: INSULIN DETEMIR 100 UNITS/ML MDV SQ SCH ×2 (06:16→09:07)
[2016-07-01] MEDS: INSULIN SLIDING SCALE (NOVOLOG) 1 VIAL SQ SCH ×4 (06:16→22:17)
[2016-07-01 08:30] LABS: MCH 22.9 pg (25.7-33.7); MCHC 31.1 g/dl (32.0-36.0); MEAN CELL VOLUME 73.6 fl (80-96); MEAN PLT VOLUME 8.5 fl (7.5-11.1); PLATELET COUNT 192 K/MM3 (134-434); RDW 16.8 % (11.6-15.6); WHITE BLOOD COUNT 6.9 K/mm3 (4.0-10.0)
[2016-07-01 08:38] LABS: INR 2.64 (0.82-1.09); PROTHROMBIN TIME (PATIENT) 29.6 SEC (9.98-11.88)
[2016-07-01] MEDS ORDERED: INSULIN DETEMIR 100 UNITS/ML MDV SQ ONE ×2 (08:51→19:07)
[2016-07-01 09:13] LABS: ALBUMIN 2.8 g/dl (3.4-5.0); ALK PHOS 84 U/L (45-117); ANION GAP 9 (8-16); BILIRUBIN,TOTAL 0.6 mg/dL (0.2-1.0); CALCIUM 8.3 mg/dL (8.5-10.1); CO2 28 mmol/L (21-32); CREATININE 0.6 mg/dL (0.55-1.02); GLUCOSE,RANDOM 126 mg/dL (74-106); SGOT/AST 22 U/L (15-37); SGPT/ALT 24 U/L (12-78); TOT PROT 5.7 g/dl (6.4-8.2)
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
[2016-07-01] MEDS ORDERED: INSULIN (NOVOLOG) ASPART 100 UNITS/ML 10ML VIAL ONE ×2 (11:01→19:07)
[2016-07-01] MEDS: ASPIRIN 81 MG CHEWABLE TABLETS PO SCH (11:05)
[2016-07-01] MEDS: FUROSEMIDE 40 MG/4 ML INJECTABLE VIAL IVPUSH SCH (11:05)
[2016-07-01] MEDS: METOPROLOL SUCCINATE 50 MG TAB.SR.24H (FP) PO SCH ×2 (11:05→22:17)
[2016-07-01] MEDS: DIGOXIN 0.125 MG TABLET (FP) PO SCH (11:06)
[2016-07-01] MEDS: amLODIPine BESYLATE 10 MG TABLET (FP) PO SCH (11:06)
[2016-07-01] MEDS: LISINOPRIL 10 MG TABLET (FP) PO SCH (11:06)
--- NOTE | 2016-07-01 12:58 | PN ---
Progress Note, Physician History of Present Illness: Pt. with cough, [place], palpitations after nebulizer, slightly better. Pt. w/o fever, CP, abd pain. N, V - Current Medication List Current Medications: Active Medications Acetaminophen (Tylenol -) 650 mg PO Q6H PRN PRN Reason: FEVER OR PAIN Last Admin: 06/30/16 23:43 Dose: 650 mg Amlodipine Besylate (Norvasc -) 10 mg PO DAILY REPLACED BY [facility] Last Admin: 07/01/16 11:06 Dose: 10 mg Aspirin (Asa -) 81 mg PO DAILY REPLACED BY [facility] Last Admin: 07/01/16 11:05 Dose: 81 mg Atorvastatin Calcium (Lipitor -) 20 mg PO HS REPLACED BY [facility] Last Admin: 06/30/16 22:18 Dose: 20 mg Digoxin (Lanoxin -) 0.125 mg PO DAILY REPLACED BY [facility] Last Admin: 07/01/16 11:06 Dose: 0.125 mg Furosemide (Lasix Injection -) 40 mg IVPUSH DAILY REPLACED BY [facility] Last Admin: 07/01/16 11:05 Dose: 40 mg Levofloxacin (Levaquin 500 Mg Premixed Ivpb -) 100 mls @ 100 mls/hr IVPB [facility] Last Admin: 06/30/16 22:18 Dose: 100 mls/hr Insulin Aspart (Novolog Vial Sliding Scale -) 1 vial SQ ACHS REPLACED BY [facility] PRN Reason: Protocol Last Admin: 07/01/16 12:35 Dose: 2 units Insulin Detemir (Levemir Vial) 30 units SQ ACBK REPLACED BY [facility] Last Admin: 07/01/16 09:07 Dose: 30 unit Ipratropium [place] (Atrovent 0.02% Nebulizer -) 1 amp NEB TID REPLACED BY [facility] Last Admin: 07/01/16 06:09 Dose: 1 amp Lisinopril (Prinivil) 10 mg PO DAILY REPLACED BY [facility] Last Admin: 07/01/16 11:06 Dose: 10 mg Metformin HCl (Glucophage -) 1,000 mg PO BIDAC REPLACED BY [facility] Last Admin: 07/01/16 06:15 Dose: 1,000 mg Metoprolol Succinate (Toprol Xl -) 50 mg PO BID REPLACED BY [facility] Last Admin: 07/01/16 11:05 Dose: 50 mg Metoprolol Tartrate (Lopressor Injection -) 5 mg IVPUSH Q4H PRN PRN Reason: TACHYCARDIA Last Admin: 06/30/16 10:03 Dose: 5 mg Warfarin Sodium (Coumadin -) 5 mg PO SuTuThSa@18 REPLACED BY [facility] Last Admin: 06/30/16 17:09 Dose: 5 mg Warfarin Sodium (Coumadin -) 6 mg PO MoWeFr@1800 REPLACED BY [facility] Last Admin: 06/29/16 17:55 Dose: 6 mg - Objective Vital Signs: Vital Signs Temperature 98.5 F 07/01/16 09:00 Pulse Rate 117 H 07/01/16 11:06 Respiratory Rate 18 07/01/16 09:00 Blood Pressure 118/72 07/01/16 09:00 O2 Sat by Pulse Oximetry (%) 92 L 07/01/16 09:00 Constitutional: Yes: No Distress, Calm Cardiovascular: Yes: Regular Rate and Rhythm, S1, S2 Respiratory: Yes: Regular, Rhonchi Gastrointestinal: Yes: Normal Bowel Sounds, Soft. No: Tenderness Edema: No Labs: CBC, BMP 07/01/16 07:05 07/01/16 07:05 INR, PTT INR 2.64 (0.82-1.09) H 07/01/16 07:05 Problem List - Problems (1) Pneumonia Code(s): J18.9 - PNEUMONIA, UNSPECIFIED ORGANISM Qualifiers: Pneumonia type: due to unspecified organism Laterality: right Lung location: middle lobe of lung Qualified Code(s): J18.1 - Lobar pneumonia , unspecified organism (2) CHF exacerbation Code(s): I50.9 - HEART FAILURE, UNSPECIFIED Qualifiers: Congestive heart failure type: unspecified congestive heart failure type Qualified Code(s): I50.9 - Heart failure, unspecified (3) Atrial fibrillation Code(s): I48.91 - UNSPECIFIED ATRIAL FIBRILLATION (4) Diabetes Code(s): E11.9 - TYPE 2 DIABETES MELLITUS WITHOUT COMPLICATIONS (5) HTN (hypertension) Code(s): I10 - ESSENTIAL (PRIMARY) HYPERTENSION (6) UTI (urinary tract infection) Code(s): N39.0 - URINARY TRACT INFECTION, SITE NOT SPECIFIED (7) Tachycardia Code(s): R00.0 - TACHYCARDIA, UNSPECIFIED Assessment/Plan IV abtx. IV Lasix. Pulmonary consult appreciated Cardio consult appreciated AM labs Check O2 sat on RA in AM
--- NOTE | 2016-07-01 13:23 | PN ---
Progress Note (short form) - Note Progress Note: Feels overall better. Some congested cough, but better and mostly with lying down. Ambulated in hallway yesterday and felt overall better. No CP. Intake & Output 06/28/16 06/29/16 06/30/16 07/01/16 23:59 23:59 23:59 23:59 Intake Total 760 100 760 770 Balance 760 100 760 770 Weight 170 lb 9.6 oz 169 lb 169 lb 1.6 oz 167 lb 4 oz Last Vital Signs Temp Pulse Resp BP Pulse Ox 98.5 F 117 H 18 118/72 92 L 07/01/16 09:00 07/01/16 11:06 07/01/16 09:00 07/01/16 09:00 07/01/16 09:00 Active Medications Acetaminophen (Tylenol -) 650 mg PO Q6H PRN PRN Reason: FEVER OR PAIN Last Admin: 06/30/16 23:43 Dose: 650 mg Amlodipine Besylate (Norvasc -) 10 mg PO DAILY [facility] Last Admin: 07/01/16 11:06 Dose: 10 mg Aspirin (Asa -) 81 mg PO DAILY [facility] Last Admin: 07/01/16 11:05 Dose: 81 mg Atorvastatin Calcium (Lipitor -) 20 mg PO HS [facility] Last Admin: 06/30/16 22:18 Dose: 20 mg Digoxin (Lanoxin -) 0.125 mg PO DAILY [facility] Last Admin: 07/01/16 11:06 Dose: 0.125 mg Furosemide (Lasix Injection -) 40 mg IVPUSH DAILY [facility] Last Admin: 07/01/16 11:05 Dose: 40 mg Levofloxacin (Levaquin 500 Mg Premixed Ivpb -) 100 mls @ 100 mls/hr IVPB HS [facility] Last Admin: 06/30/16 22:18 Dose: 100 mls/hr Insulin Aspart (Novolog Vial Sliding Scale -) 1 vial SQ ACHS [facility] PRN Reason: Protocol Last Admin: 07/01/16 12:35 Dose: 2 units Insulin Detemir (Levemir Vial) 30 units SQ ACBK [facility] Last Admin: 07/01/16 09:07 Dose: 30 unit Ipratropium [place] (Atrovent 0.02% Nebulizer -) 1 amp NEB TID [facility] Last Admin: 07/01/16 06:09 Dose: 1 amp Lisinopril (Prinivil) 10 mg PO DAILY [facility] Last Admin: 07/01/16 11:06 Dose: 10 mg Metformin HCl (Glucophage -) 1,000 mg PO BIDAC [facility] Last Admin: 07/01/16 06:15 Dose: 1,000 mg Metoprolol Succinate (Toprol Xl -) 50 mg PO BID [facility] Last Admin: 07/01/16 11:05 Dose: 50 mg Metoprolol Tartrate (Lopressor Injection -) 5 mg IVPUSH Q4H PRN PRN Reason: TACHYCARDIA Last Admin: 06/30/16 10:03 Dose: 5 mg Warfarin Sodium (Coumadin -) 5 mg PO SuTuThSa@18 [facility] Last Admin: 06/30/16 17:09 Dose: 5 mg Warfarin Sodium (Coumadin -) 6 mg PO MoWeFr@1800 [facility] Last Admin: 06/29/16 17:55 Dose: 6 mg Constitutional: Yes: NAD Eyes: Yes: WNL HENT: Yes: WNL Neck: Yes: WNL Cardiovascular: Yes: Pulse Irregular, S1, S2 Respiratory: Yes: Scattered bilateral rhonchi Gastrointestinal: Yes: Normal Bowel Sounds, Soft Extremities: Yes: WNL Edema: Yes Edema: LLE: Trace, RLE: Trace Labs: Laboratory Results - last 24 hr 06/30/16 06/30/16 07/01/16 16:54 21:05 05:18 WBC RBC Hgb Hct MCV MCHC RDW Plt Count MPV INR Sodium Potassium Chloride Carbon Dioxide Anion Gap BUN Creatinine Creat Clearance w eGFR POC Glucometer 158 132 105 Random Glucose Calcium Total Bilirubin AST ALT Alkaline Phosphatase Total Protein Albumin 07/01/16 07/01/16 07/01/16 07:05 07:05 07:05 WBC 6.9 RBC 4.37 Hgb 10.0 L Hct 32.2 L MCV 73.6 L MCHC 31.1 L RDW 16.8 H Plt Count 192 D MPV 8.5 INR 2.64 H Sodium 143 Potassium 4.3 Chloride 106 Carbon Dioxide 28 Anion Gap 9 BUN 15 Creatinine 0.6 Creat Clearance w eGFR > 60 POC Glucometer Random Glucose 126 H Calcium 8.3 L Total Bilirubin 0.6 AST 22 ALT 24 Alkaline Phosphatase 84 Total Protein 5.7 L Albumin 2.8 L 07/01/16 11:13 WBC RBC Hgb Hct MCV MCHC RDW Plt Count MPV INR Sodium Potassium Chloride Carbon Dioxide Anion Gap BUN Creatinine Creat Clearance w eGFR POC Glucometer 179 Random Glucose Calcium Total Bilirubin AST ALT Alkaline Phosphatase Total Protein Albumin Assessment/Plan Problem List - Problems (1) CHF exacerbation Code(s): I50.9 - HEART FAILURE, UNSPECIFIED Qualifiers: Congestive heart failure type: unspecified congestive heart failure type Qualified Code(s): I50.9 - Heart failure, unspecified (2) UTI (urinary tract infection) Code(s): N39.0 - URINARY TRACT INFECTION, SITE NOT SPECIFIED (3) Atrial fibrillation Code(s): I48.91 - UNSPECIFIED ATRIAL FIBRILLATION (4) HTN (hypertension) Code(s): I10 - ESSENTIAL (PRIMARY) HYPERTENSION (5) Diabetes Code(s): E11.9 - TYPE 2 DIABETES MELLITUS WITHOUT COMPLICATIONS (6) Hyperlipidemia Code(s): E78.5 - HYPERLIPIDEMIA, UNSPECIFIED Assessment/Plan CHF Exacerbation Atrial Fibrillation UTI Suspected Pneumonia HTN DM Hyperlipidemia - Lasix - monitor urine output, creatinine - daily weights, I/Os - ABX - rate controlled - continue anticoagulation - O2 as needed to keep SpO2 >90% - Atrmeenakshi Stover
[2016-07-01] MEDS: WARFARIN NA 5 MG TABLET (UD) PO SCH (17:31)
[2016-07-01] MEDS: ATORVASTATIN CA 20 MG TABLET (FP) PO SCH (22:17)
[2016-07-01] MEDS: LEVOFLOXACIN 500 MG IVPB 100 ML IVPB SCH (22:17)
[2016-07-02] MEDS: IPRATROPIUM BR 0.02% 0.5 MG/2.5 ML VIAL.NEB. NEB SCH ×3 (06:33→22:22)
[2016-07-02] MEDS: metFORMIN HCL 500 MG TABLET (FP) PO SCH ×2 (06:54→17:45)
[2016-07-02] MEDS: INSULIN SLIDING SCALE (NOVOLOG) 1 VIAL SQ SCH ×4 (06:55→22:19)
[2016-07-02] MEDS: INSULIN DETEMIR 100 UNITS/ML MDV SQ SCH (06:55)
[2016-07-02] MEDS ORDERED: INSULIN DETEMIR 100 UNITS/ML MDV SQ ONE (07:02)
[2016-07-02 07:23] LABS: INR 2.6 (0.82-1.09); PROTHROMBIN TIME (PATIENT) 29.2 SEC (9.98-11.88)
[2016-07-02 07:37] LABS: CALCIUM 8.7 mg/dL (8.5-10.1)
[2016-07-02 07:38] LABS: COCKROFT - GAULT 73.4995; CREATININE 0.8 mg/dL (0.55-1.02)
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
[2016-07-02] MEDS: amLODIPine BESYLATE 10 MG TABLET (FP) PO SCH (10:52)
[2016-07-02] MEDS: ASPIRIN 81 MG CHEWABLE TABLETS PO SCH (10:52)
[2016-07-02] MEDS: DIGOXIN 0.125 MG TABLET (FP) PO SCH (10:52)
[2016-07-02] MEDS: LISINOPRIL 10 MG TABLET (FP) PO SCH (10:52)
[2016-07-02] MEDS: FUROSEMIDE 40 MG/4 ML INJECTABLE VIAL IVPUSH SCH (10:52)
[2016-07-02] MEDS: METOPROLOL SUCCINATE 50 MG TAB.SR.24H (FP) PO SCH ×2 (10:52→22:15)
[2016-07-02] MEDS ORDERED: INSULIN (NOVOLOG) ASPART 100 UNITS/ML 10ML VIAL ONE (11:01)
--- NOTE | 2016-07-02 13:52 | PN ---
Progress Note, Physician History of Present Illness: pulmpnary alert,oob-chair,-sob. - Current Medication List Current Medications: Active Medications Acetaminophen (Tylenol -) 650 mg PO Q6H PRN PRN Reason: FEVER OR PAIN Last Admin: 06/30/16 23:43 Dose: 650 mg Amlodipine Besylate (Norvasc -) 10 mg PO DAILY [facility] Last Admin: 07/02/16 10:52 Dose: 10 mg Aspirin (Asa -) 81 mg PO DAILY [facility] Last Admin: 07/02/16 10:52 Dose: 81 mg Atorvastatin Calcium (Lipitor -) 20 mg PO HS [facility] Last Admin: 07/01/16 22:17 Dose: 20 mg Digoxin (Lanoxin -) 0.125 mg PO DAILY [facility] Last Admin: 07/02/16 10:52 Dose: 0.125 mg Furosemide (Lasix Injection -) 40 mg IVPUSH DAILY [facility] Last Admin: 07/02/16 10:52 Dose: 40 mg Furosemide (Lasix Injection -) 40 mg IVPUSH ONCE ONE Stop: 07/02/16 15:01 Levofloxacin (Levaquin 500 Mg Premixed Ivpb -) 100 mls @ 100 mls/hr IVPB HS [facility] Last Admin: 07/01/16 22:17 Dose: 100 mls/hr Insulin Aspart (Novolog Vial Sliding Scale -) 1 vial SQ ACHS [facility] PRN Reason: Protocol Last Admin: 07/02/16 11:34 Dose: 4 units Insulin Detemir (Levemir Vial) 30 units SQ ACBK [facility] Last Admin: 07/02/16 06:55 Dose: 30 unit Ipratropium [place] (Atrovent 0.02% Nebulizer -) 1 amp NEB TID [facility] Last Admin: 07/02/16 06:33 Dose: 1 amp Lisinopril (Prinivil) 10 mg PO DAILY [facility] Last Admin: 07/02/16 10:52 Dose: 10 mg Metformin HCl (Glucophage -) 1,000 mg PO BIDAC [facility] Last Admin: 07/02/16 06:54 Dose: 1,000 mg Metoprolol Succinate (Toprol Xl -) 50 mg PO BID [facility] Last Admin: 07/02/16 10:52 Dose: 50 mg Metoprolol Tartrate (Lopressor Injection -) 5 mg IVPUSH Q4H PRN PRN Reason: TACHYCARDIA Last Admin: 06/30/16 10:03 Dose: 5 mg Warfarin Sodium (Coumadin -) 5 mg PO SuTuThSa@18 [facility] Last Admin: 07/01/16 17:31 Dose: 5 mg Warfarin Sodium (Coumadin -) 6 mg PO MoWeFr@1800 [facility] Last Admin: 06/29/16 17:55 Dose: 6 mg - Objective Vital Signs: Vital Signs Temperature 98.1 F 07/02/16 10:00 Pulse Rate 99 H 07/02/16 10:52 Respiratory Rate 19 07/02/16 10:00 Blood Pressure 136/80 07/02/16 10:00 O2 Sat by Pulse Oximetry (%) 92 L 07/01/16 09:00 Constitutional: Yes: Well Nourished, Calm Eyes: Yes: WNL HENT: Yes: WNL Neck: Yes: WNL Cardiovascular: Yes: Pulse Irregular, S1, S2 Respiratory: Yes: Rales (bibasilar rales) Gastrointestinal: Yes: Normal Bowel Sounds, Soft Extremities: Yes: WNL Edema: Yes Labs: CBC, BMP 07/01/16 07:05 07/02/16 05:41 INR, PTT INR 2.60 (0.82-1.09) H 07/02/16 05:41 Assessment/Plan Problem List - Problems (1) CHF exacerbation Code(s): I50.9 - HEART FAILURE, UNSPECIFIED Qualifiers: Congestive heart failure type: unspecified congestive heart failure type Qualified Code(s): I50.9 - Heart failure, unspecified (2) UTI (urinary tract infection) Code(s): N39.0 - URINARY TRACT INFECTION, SITE NOT SPECIFIED (3) Atrial fibrillation Code(s): I48.91 - UNSPECIFIED ATRIAL FIBRILLATION (4) HTN (hypertension) Code(s): I10 - ESSENTIAL (PRIMARY) HYPERTENSION (5) Diabetes Code(s): E11.9 - TYPE 2 DIABETES MELLITUS WITHOUT COMPLICATIONS (6) Hyperlipidemia Code(s): E78.5 - HYPERLIPIDEMIA, UNSPECIFIED Assessment/Plan CHF Exacerbation improving Atrial Fibrillation UTI r/o Pneumonia HTN DM Hyperlipidemia - IV lasix - monitor urine output, creatinine - daily weights, I/Os - empiric antibiotics - rate controlled - continue anticoagulation - O2 as needed to keep SpO2 >90% - inhaled bronchodilators - DR SALAZAR
[2016-07-02] MEDS ORDERED: FUROSEMIDE 40 MG/4 ML INJECTABLE VIAL IVPUSH ONE (15:00)
[2016-07-02] MEDS: WARFARIN NA 3 MG TABLET PO SCH (17:45)
--- NOTE | 2016-07-02 18:22 | PN ---
Progress Note, Physician History of Present Illness: Pt.'s cough is better. Pt. w/o fever, CP, abd pain. N, V - Current Medication List Current Medications: Active Medications Acetaminophen (Tylenol -) 650 mg PO Q6H PRN PRN Reason: FEVER OR PAIN Last Admin: 06/30/16 23:43 Dose: 650 mg Amlodipine Besylate (Norvasc -) 10 mg PO DAILY [facility] Last Admin: 07/02/16 10:52 Dose: 10 mg Aspirin (Asa -) 81 mg PO DAILY [facility] Last Admin: 07/02/16 10:52 Dose: 81 mg Atorvastatin Calcium (Lipitor -) 20 mg PO HS [facility] Last Admin: 07/01/16 22:17 Dose: 20 mg Digoxin (Lanoxin -) 0.125 mg PO DAILY [facility] Last Admin: 07/02/16 10:52 Dose: 0.125 mg Furosemide (Lasix Injection -) 40 mg IVPUSH DAILY [facility] Last Admin: 07/02/16 10:52 Dose: 40 mg Levofloxacin (Levaquin 500 Mg Premixed Ivpb -) 100 mls @ 100 mls/hr IVPB [facility] Last Admin: 07/01/16 22:17 Dose: 100 mls/hr Insulin Aspart (Novolog Vial Sliding Scale -) 1 vial SQ ACHS [facility] PRN Reason: Protocol Last Admin: 07/02/16 17:19 Dose: Not Given Insulin Detemir (Levemir Vial) 30 units SQ ACBK [facility] Last Admin: 07/02/16 06:55 Dose: 30 unit Ipratropium [place] (Atrovent 0.02% Nebulizer -) 1 amp NEB TID [facility] Last Admin: 07/02/16 14:45 Dose: 1 amp Lisinopril (Prinivil) 10 mg PO DAILY [facility] Last Admin: 07/02/16 10:52 Dose: 10 mg Metformin HCl (Glucophage -) 1,000 mg PO BIDAC [facility] Last Admin: 07/02/16 17:45 Dose: 1,000 mg Metoprolol Succinate (Toprol Xl -) 50 mg PO BID [facility] Last Admin: 07/02/16 10:52 Dose: 50 mg Metoprolol Tartrate (Lopressor Injection -) 5 mg IVPUSH Q4H PRN PRN Reason: TACHYCARDIA Last Admin: 06/30/16 10:03 Dose: 5 mg Warfarin Sodium (Coumadin -) 5 mg PO SuTuThSa@18 [facility] Last Admin: 07/01/16 17:31 Dose: 5 mg Warfarin Sodium (Coumadin -) 6 mg PO MoWeFr@1800 [facility] Last Admin: 07/02/16 17:45 Dose: 6 mg - Objective Vital Signs: Vital Signs Temperature 99.2 F 07/02/16 14:00 Pulse Rate 92 H 07/02/16 14:00 Respiratory Rate 20 07/02/16 14:00 Blood Pressure 121/68 07/02/16 14:00 O2 Sat by Pulse Oximetry (%) 94 L 07/02/16 09:00 Constitutional: Yes: No Distress, Calm Cardiovascular: Yes: Regular Rate and Rhythm, S1, S2 Respiratory: Yes: Regular, Rales Gastrointestinal: Yes: Normal Bowel Sounds, Soft. No: Tenderness Edema: LLE: Trace, RLE: Trace Labs: CBC, BMP 07/01/16 07:05 07/02/16 05:41 INR, PTT INR 2.60 (0.82-1.09) H 07/02/16 05:41 Problem List - Problems (1) Pneumonia Code(s): J18.9 - PNEUMONIA, UNSPECIFIED ORGANISM Qualifiers: Pneumonia type: due to unspecified organism Laterality: right Lung location: middle lobe of lung Qualified Code(s): J18.1 - Lobar pneumonia , unspecified organism (2) CHF exacerbation Code(s): I50.9 - HEART FAILURE, UNSPECIFIED Qualifiers: Congestive heart failure type: unspecified congestive heart failure type Qualified Code(s): I50.9 - Heart failure, unspecified (3) Atrial fibrillation Code(s): I48.91 - UNSPECIFIED ATRIAL FIBRILLATION (4) Diabetes Code(s): E11.9 - TYPE 2 DIABETES MELLITUS WITHOUT COMPLICATIONS (5) HTN (hypertension) Code(s): I10 - ESSENTIAL (PRIMARY) HYPERTENSION (6) UTI (urinary tract infection) Code(s): N39.0 - URINARY TRACT INFECTION, SITE NOT SPECIFIED (7) Tachycardia Code(s): R00.0 - TACHYCARDIA, UNSPECIFIED Assessment/Plan IV abtx. IV Lasix. Pulmonary consult appreciated Cardio consult appreciated AM labs
[2016-07-02] MEDS: LEVOFLOXACIN 500 MG IVPB 100 ML IVPB SCH (22:14)
[2016-07-02] MEDS: ATORVASTATIN CA 20 MG TABLET (FP) PO SCH (22:14)
[2016-07-03] MEDS: IPRATROPIUM BR 0.02% 0.5 MG/2.5 ML VIAL.NEB. NEB SCH ×3 (06:21→21:47)
[2016-07-03] MEDS: metFORMIN HCL 500 MG TABLET (FP) PO SCH ×2 (06:47→17:46)
[2016-07-03] MEDS: INSULIN SLIDING SCALE (NOVOLOG) 1 VIAL SQ SCH ×4 (06:48→22:37)
[2016-07-03 07:52] LABS: CALCIUM 8.2 mg/dL (8.5-10.1)
[2016-07-03 07:55] LABS: COCKROFT - GAULT 82.3905; CREATININE 0.7 mg/dL (0.55-1.02)
[2016-07-03] MEDS: INSULIN DETEMIR 100 UNITS/ML MDV SQ SCH (09:45)
[2016-07-03] MEDS: amLODIPine BESYLATE 10 MG TABLET (FP) PO SCH (10:28)
[2016-07-03] MEDS: DIGOXIN 0.125 MG TABLET (FP) PO SCH (10:28)
[2016-07-03] MEDS: METOPROLOL SUCCINATE 50 MG TAB.SR.24H (FP) PO SCH ×2 (10:28→22:36)
[2016-07-03] MEDS: FUROSEMIDE 40 MG/4 ML INJECTABLE VIAL IVPUSH SCH ×2 (10:28→14:49)
[2016-07-03] MEDS: ASPIRIN 81 MG CHEWABLE TABLETS PO SCH (10:28)
[2016-07-03] MEDS: LISINOPRIL 10 MG TABLET (FP) PO SCH (10:28)
--- NOTE | 2016-07-03 10:29 | PN ---
Progress Note, Physician History of Present Illness: Pt.'s cough is worse at night, still using the O2 supplementation Pt. w/o fever, CP, abd pain. N, V - Current Medication List Current Medications: Active Medications Acetaminophen (Tylenol -) 650 mg PO Q6H PRN PRN Reason: FEVER OR PAIN Last Admin: 06/30/16 23:43 Dose: 650 mg Amlodipine Besylate (Norvasc -) 10 mg PO DAILY [facility] Last Admin: 07/02/16 10:52 Dose: 10 mg Aspirin (Asa -) 81 mg PO DAILY [facility] Last Admin: 07/02/16 10:52 Dose: 81 mg Atorvastatin Calcium (Lipitor -) 20 mg PO HS [facility] Last Admin: 07/02/16 22:14 Dose: 20 mg Digoxin (Lanoxin -) 0.125 mg PO DAILY [facility] Last Admin: 07/02/16 10:52 Dose: 0.125 mg Furosemide (Lasix Injection -) 40 mg IVPUSH DAILY [facility] Last Admin: 07/02/16 10:52 Dose: 40 mg Levofloxacin (Levaquin 500 Mg Premixed Ivpb -) 100 mls @ 100 mls/hr IVPB [facility] Last Admin: 07/02/16 22:14 Dose: 100 mls/hr Insulin Aspart (Novolog Vial Sliding Scale -) 1 vial SQ ACHS [facility] PRN Reason: Protocol Last Admin: 07/03/16 06:48 Dose: Not Given Insulin Detemir (Levemir Vial) 30 units SQ ACBK [facility] Last Admin: 07/03/16 09:45 Dose: 30 unit Ipratropium [place] (Atrovent 0.02% Nebulizer -) 1 amp NEB TID [facility] Last Admin: 07/03/16 06:21 Dose: 1 amp Lisinopril (Prinivil) 10 mg PO DAILY [facility] Last Admin: 07/02/16 10:52 Dose: 10 mg Metformin HCl (Glucophage -) 1,000 mg PO BIDAC [facility] Last Admin: 07/03/16 06:47 Dose: 1,000 mg Metoprolol Succinate (Toprol Xl -) 50 mg PO BID [facility] Last Admin: 07/02/16 22:15 Dose: 50 mg Metoprolol Tartrate (Lopressor Injection -) 5 mg IVPUSH Q4H PRN PRN Reason: TACHYCARDIA Last Admin: 06/30/16 10:03 Dose: 5 mg Warfarin Sodium (Coumadin -) 5 mg PO SuTuThSa@18 [facility] Last Admin: 07/01/16 17:31 Dose: 5 mg Warfarin Sodium (Coumadin -) 6 mg PO MoWeFr@1800 [facility] Last Admin: 07/02/16 17:45 Dose: 6 mg - Objective Vital Signs: Vital Signs Temperature 98.3 F 07/03/16 06:24 Pulse Rate 92 H 07/03/16 06:24 Respiratory Rate 18 07/03/16 06:24 Blood Pressure 127/67 07/03/16 06:24 O2 Sat by Pulse Oximetry (%) 95 07/02/16 20:53 Constitutional: Yes: No Distress, Calm Cardiovascular: Yes: Regular Rate and Rhythm, S1, S2 Respiratory: Yes: Regular, Rales (at bases and 1/3 up, R > L) Gastrointestinal: Yes: Normal Bowel Sounds, Soft. No: Tenderness Edema: LLE: Trace, RLE: Trace Labs: CBC, BMP 07/01/16 07:05 07/03/16 05:35 INR, PTT INR 2.60 (0.82-1.09) H 07/02/16 05:41 Problem List - Problems (1) Pneumonia Code(s): J18.9 - PNEUMONIA, UNSPECIFIED ORGANISM Qualifiers: Pneumonia type: due to unspecified organism Laterality: right Lung location: middle lobe of lung Qualified Code(s): J18.1 - Lobar pneumonia , unspecified organism (2) CHF exacerbation Code(s): I50.9 - HEART FAILURE, UNSPECIFIED Qualifiers: Congestive heart failure type: unspecified congestive heart failure type Qualified Code(s): I50.9 - Heart failure, unspecified (3) Atrial fibrillation Code(s): I48.91 - UNSPECIFIED ATRIAL FIBRILLATION (4) Diabetes Code(s): E11.9 - TYPE 2 DIABETES MELLITUS WITHOUT COMPLICATIONS (5) HTN (hypertension) Code(s): I10 - ESSENTIAL (PRIMARY) HYPERTENSION (6) UTI (urinary tract infection) Code(s): N39.0 - URINARY TRACT INFECTION, SITE NOT SPECIFIED (7) Tachycardia Code(s): R00.0 - TACHYCARDIA, UNSPECIFIED (8) Pacemaker Code(s): Z95.0 - PRESENCE OF CARDIAC PACEMAKER Assessment/Plan IV abtx. IV Lasix- yesterday she received an extra dose. Pulmonary consult appreciated Cardio consult appreciated AM labs To check pre and post
[2016-07-03] MEDS ORDERED: POTASSIUM CHLORIDE TABS 20 MEQ TABLET.ER (FP) PO ONE (12:00)
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
--- NOTE | 2016-07-03 15:41 | PN ---
Progress Note (short form) - Note Progress Note: PULMONARY States breathing continues to improve but not at baseline. No chest pain. Last Vital Signs Temp Pulse Resp BP Pulse Ox 98.0 F 102 H 20 114/54 94 L 07/03/16 14:00 07/03/16 14:00 07/03/16 14:00 07/03/16 14:00 07/03/16 14:00 Intake & Output 06/30/16 07/01/16 07/02/16 07/03/16 23:59 23:59 23:59 23:59 Intake Total 760 1510 1300 Balance 760 1510 1300 Weight 169 lb 1.6 oz 167 lb 4 oz 166 lb 6 oz 163 lb 3.2 oz Gen: NAD at rest Heart: tachycardic, regular Lung: scattered basilar rhonchi Abd: soft, nontender Ext: less edema CBC, BMP 07/01/16 07:05 07/03/16 05:35 Active Medications Acetaminophen (Tylenol -) 650 mg PO Q6H PRN PRN Reason: FEVER OR PAIN Last Admin: 06/30/16 23:43 Dose: 650 mg Amlodipine Besylate (Norvasc -) 10 mg PO DAILY [facility] Last Admin: 07/03/16 10:28 Dose: 10 mg Aspirin (Asa -) 81 mg PO DAILY [facility] Last Admin: 07/03/16 10:28 Dose: 81 mg Atorvastatin Calcium (Lipitor -) 20 mg PO HS [facility] Last Admin: 07/02/16 22:14 Dose: 20 mg Digoxin (Lanoxin -) 0.125 mg PO DAILY [facility] Last Admin: 07/03/16 10:28 Dose: 0.125 mg Furosemide (Lasix Injection -) 40 mg IVPUSH BID@0600,1400 [facility] Last Admin: 07/03/16 14:49 Dose: 40 mg Levofloxacin (Levaquin 500 Mg Premixed Ivpb -) 100 mls @ 100 mls/hr IVPB HS [facility] Last Admin: 07/02/16 22:14 Dose: 100 mls/hr Insulin Aspart (Novolog Vial Sliding Scale -) 1 vial SQ ACHS [facility] PRN Reason: Protocol Last Admin: 07/03/16 12:37 Dose: 2 units Insulin Detemir (Levemir Vial) 30 units SQ ACBK [facility] Last Admin: 07/03/16 09:45 Dose: 30 unit Ipratropium [place] (Atrovent 0.02% Nebulizer -) 1 amp NEB TID [facility] Last Admin: 07/03/16 14:18 Dose: Not Given Lisinopril (Prinivil) 10 mg PO DAILY [facility] Last Admin: 07/03/16 10:28 Dose: 10 mg Metformin HCl (Glucophage -) 1,000 mg PO BIDAC [facility] Last Admin: 07/03/16 06:47 Dose: 1,000 mg Metoprolol Succinate (Toprol Xl -) 50 mg PO BID [facility] Last Admin: 07/03/16 10:28 Dose: 50 mg Metoprolol Tartrate (Lopressor Injection -) 5 mg IVPUSH Q4H PRN PRN Reason: TACHYCARDIA Last Admin: 06/30/16 10:03 Dose: 5 mg Warfarin Sodium (Coumadin -) 5 mg PO SuTuThSa@18 [facility] Last Admin: 07/01/16 17:31 Dose: 5 mg Warfarin Sodium (Coumadin -) 6 mg PO MoWeFr@1800 [facility] Last Admin: 07/02/16 17:45 Dose: 6 mg A/P Acute on Chronic LV Diastolic Heart Failure Pneumonia Atrial Fibrillation UTI HTN DM Hyperlipidemia - continue lasix - monitor urine output, creatinine - daily weights, I/Os - complete antibiotics - rate controlled - continue anticoagulation - O2 as needed to keep SpO2 >90% - inhaled bronchodilators - outpt PFTs - will need outpt f/u of CXR in 6-8 weeks to ensure resolution of infiltrate Problem List - Problems (1) CHF exacerbation Code(s): I50.9 - HEART FAILURE, UNSPECIFIED Qualifiers: Congestive heart failure type: unspecified congestive heart failure type Qualified Code(s): I50.9 - Heart failure, unspecified (2) UTI (urinary tract infection) Code(s): N39.0 - URINARY TRACT INFECTION, SITE NOT SPECIFIED (3) Atrial fibrillation Code(s): I48.91 - UNSPECIFIED ATRIAL FIBRILLATION (4) HTN (hypertension) Code(s): I10 - ESSENTIAL (PRIMARY) HYPERTENSION (5) Diabetes Code(s): E11.9 - TYPE 2 DIABETES MELLITUS WITHOUT COMPLICATIONS (6) Hyperlipidemia Code(s): E78.5 - HYPERLIPIDEMIA, UNSPECIFIED
[2016-07-03] MEDS: WARFARIN NA 5 MG TABLET (UD) PO SCH (18:07)
[2016-07-03] MEDS ORDERED: INSULIN (NOVOLOG) ASPART 100 UNITS/ML 10ML VIAL ONE (22:15)
[2016-07-03] MEDS: LEVOFLOXACIN 500 MG IVPB 100 ML IVPB SCH (22:36)
[2016-07-03] MEDS: ATORVASTATIN CA 20 MG TABLET (FP) PO SCH (22:36)
[2016-07-04] MEDS: IPRATROPIUM BR 0.02% 0.5 MG/2.5 ML VIAL.NEB. NEB SCH (06:35)
[2016-07-04] MEDS: INSULIN DETEMIR 100 UNITS/ML MDV SQ SCH (06:51)
[2016-07-04] MEDS: INSULIN SLIDING SCALE (NOVOLOG) 1 VIAL SQ SCH ×2 (06:51→11:08)
[2016-07-04] MEDS: FUROSEMIDE 40 MG/4 ML INJECTABLE VIAL IVPUSH SCH (06:51)
[2016-07-04] MEDS: metFORMIN HCL 500 MG TABLET (FP) PO SCH (06:52)
[2016-07-04 07:26] LABS: INR 2.78 (0.82-1.09); PROTHROMBIN TIME (PATIENT) 31.2 SEC (9.98-11.88)
[2016-07-04 07:40] LABS: CALCIUM 8.6 mg/dL (8.5-10.1); CREATININE 0.9 mg/dL (0.55-1.02)
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
[2016-07-04] MEDS: METOPROLOL SUCCINATE 50 MG TAB.SR.24H (FP) PO SCH (10:16)
[2016-07-04] MEDS: amLODIPine BESYLATE 10 MG TABLET (FP) PO SCH (10:16)
[2016-07-04] MEDS: DIGOXIN 0.125 MG TABLET (FP) PO SCH (10:16)
[2016-07-04] MEDS: ASPIRIN 81 MG CHEWABLE TABLETS PO SCH (10:16)
[2016-07-04] MEDS: LISINOPRIL 10 MG TABLET (FP) PO SCH (10:16)
--- NOTE | 2016-07-04 10:56 | DS ---
Physical Examination Vital Signs: Vital Signs Temperature 98.1 F 07/04/16 06:00 Pulse Rate 99 H 07/04/16 10:16 Respiratory Rate 16 07/04/16 06:00 Blood Pressure 132/67 07/04/16 06:00 O2 Sat by Pulse Oximetry (%) 96 07/03/16 21:00 Findings/Remarks: Pt with less cough, no SOB, no CO, no palpitations, no wheezing, no abd pain Constitutional: Yes: No Distress, Calm Cardiovascular: Yes: Pulse Irregular, S1, S2 Respiratory: Yes: Regular, Rales (scattered at bases) Gastrointestinal: Yes: Normal Bowel Sounds, Soft. No: Palpable Mass, Tenderness Edema: No Neurological: Yes: Alert, Oriented Labs: CBC, BMP 07/01/16 07:05 07/04/16 05:35 Discharge Summary Reason For Visit: ACUTE ON CHRONIC CONGESTIVE HEART FAILURE Current Active Problems Atrial fibrillation (Acute) CHF exacerbation (Acute) Diabetes (Acute) HTN (hypertension) (Acute) Hyperlipidemia (Acute) Pacemaker (Acute) Pneumonia (Acute) Tachycardia (Acute) UTI (urinary tract infection) (Acute) Hospital Course: Pt came to ER for fever, SOB, leg edema. Pt. was admitted to telemetry for PNA , CHF exacerbation. Pt was started on IV Lasix, IV abtx. Pt was seen in consult by Pulmonary (Dr. Grubbs) and Cardio (Dr. Davalos). Pt improved slowly; her pre and post showed O2 sat of 88% in RA while walking; pt to be DC'ed home on O2 supplementation while walking (pt is aware). Pt. to be DC'ed home today with outpatient follow up. Condition: Fair - Instructions Diet, Activity, Other Instructions: ADA, low salt, low cholesterol Follow up with Dr. Humera Saeed (Lung doctor), own heart doctor ( in 1 week). Referrals: Wes Grubbs MD [Staff Physician] - (in 1-2 weeks- would need PFT) Lily Maher MD [Primary Care Provider] - (within one week- pt needs INR and BMP checked) Disposition: HOME - Home Medications Comprehensive Discharge Medication List: Ambulatory Orders Please NOTE that this list might not be accurate/ complete Amlodipine Besylate [Norvasc -] 10 mg PO DAILY 06/28/16 Aspirin [ASA -] 81 mg PO DAILY 06/28/16 Digoxin [Lanoxin -] 0.125 mg PO DAILY 06/28/16 Furosemide 40 mg PO BID 06/28/16 Insulin (Levemir) [Levemir Flexpen -] 30 units SQ DAILY 06/28/16 Lisinopril 10 mg PO DAILY 06/28/16 Metformin HCl [Glucophage] 1,000 mg PO DAILY 06/28/16 Metoprolol Succinate [Toprol Xl] 50 mg PO BID 06/28/16 Simvastatin 10 mg PO DAILY 06/28/16 Warfarin Sodium [Coumadin] 5 mg PO 06/28/16 Warfarin Sodium [Coumadin] 6 mg PO 06/28/16 Levaquin 500 mg PO daily Atrovent Inh, 2 puffs PRN every 6 hours
--- NOTE | 2016-07-04 11:12 | PN ---
Progress Note (short form) - Note Progress Note: PULMONARY VSS/AFEBRILE ANICTERIC CHEST DISTANT BUT CLEAR S1S2 BS+ NO EDEMA LABS/MEDS/NOTES/IMAGING/REVIEWED Acute on Chronic LV Diastolic Heart Failure Pneumonia Atrial Fibrillation UTI HTN DM Hyperlipidemia - continue lasix - monitor urine output, creatinine - daily weights, I/Os - complete antibiotics - rate controlled - continue anticoagulation - O2 as needed to keep SpO2 >90% - inhaled bronchodilators - outpt PFTs - will need outpt f/u of CXR in 6-8 weeks to ensure resolution of infiltrates Amos ASTORGA MD
--- NOTE | 2016-07-04 11:54 | PN ---
Progress Note (short form) - Note Progress Note: Case was Dd/w Dr. Tavares; he agrees with Rx and DC. Case was d/w Dr. Maher (PCP). Case was d/w pt.'s nurse, medications were reviewed/ checked Time spent for patient DC: over 50 min. Problem List - Problems (1) Pneumonia Code(s): J18.9 - PNEUMONIA, UNSPECIFIED ORGANISM Qualifiers: Pneumonia type: due to unspecified organism Laterality: right Lung location: middle lobe of lung Qualified Code(s): J18.1 - Lobar pneumonia , unspecified organism (2) CHF exacerbation Code(s): I50.9 - HEART FAILURE, UNSPECIFIED Qualifiers: Congestive heart failure type: unspecified congestive heart failure type Qualified Code(s): I50.9 - Heart failure, unspecified (3) Atrial fibrillation Code(s): I48.91 - UNSPECIFIED ATRIAL FIBRILLATION (4) Diabetes Code(s): E11.9 - TYPE 2 DIABETES MELLITUS WITHOUT COMPLICATIONS (5) HTN (hypertension) Code(s): I10 - ESSENTIAL (PRIMARY) HYPERTENSION (6) UTI (urinary tract infection) Code(s): N39.0 - URINARY TRACT INFECTION, SITE NOT SPECIFIED (7) Tachycardia Code(s): R00.0 - TACHYCARDIA, UNSPECIFIED (8) Pacemaker Code(s): Z95.0 - PRESENCE OF CARDIAC PACEMAKER
[2016-07-04 13:59] VITALS: BP 103/54; PULSE 84; TEMP 98.4
[2016-07-04] MEDS ORDERED: FUROSEMIDE 40 MG TABLET (FP) PO SCH (14:00)
[2016-07-05] MEDS ORDERED: LEVOFLOXACIN 500 MG TABLET (FP) PO SCH (10:00)
== END 2016-07-04 16:40 | disposition home or self-care (01) | DRG 291 ==
LOC: JER 18:43 → JERBED 22:20 → UNDOADMIN 23:51 → JERBED 23:51 → J4S 06-28 03:38
PROVIDERS: ADMIT Specialist; ATTEND Specialist
PROC: 3E0F7GC Introduction of Other Therapeutic Substance into Respiratory Tract, Via Natural or Artificial Opening (ICD-10-PCS; principal; 2016-06-28)
PROC: 3E0234Z Introduction of Serum, Toxoid and Vaccine into Muscle, Percutaneous Approach (ICD-10-PCS; 2016-06-28)
DX: I11.0 Hypertensive heart disease with heart failure (principal); J18.9 Pneumonia, unspecified organism; J44.0 Chronic obstructive pulmonary disease with (acute) lower respiratory infection; N39.0 Urinary tract infection, site not specified; I50.33 Acute on chronic diastolic (congestive) heart failure; I48.91 Unspecified atrial fibrillation; Z79.01 Long term (current) use of anticoagulants; Z95.0 Presence of cardiac pacemaker; E11.9 Type 2 diabetes mellitus without complications; Z23 Encounter for immunization; Z79.4 Long term (current) use of insulin; Z87.891 Personal history of nicotine dependence; Z95.2 Presence of prosthetic heart valve; R00.0 Tachycardia, unspecified
CPT/HCPCS: 36415; 71010-TC; 71020-TC; 80048; 80053; 80162; 81003; 81015; 82550; 83605; 83880; 84484; 85025; 85027; 85610; 85730; 87040; 87086; 87254; 87804; 90670; 93005; 93010; 93306-TC; 94640; 94761; 99285-25

== ENCOUNTER 2017-06-19 20:35 | Emergency (ER) | payer OTHER ==
--- NOTE | 2017-06-19 20:52 | PDOC ---
Rapid Medical Evaluation Time Seen by Provider: 06/19/17 20:52 Medical Evaluation: Allergies Allergy/AdvReac Type Severity Reaction Status Date / Time No Known Allergies Allergy Verified 06/27/16 18:55 06/19/17 20:52 I have performed a brief in-person evaluation of this patient. The patient presents with a chief complaint of: impacted ears, bleeding from ears, on coumadin for afib Pertinent physical exam findings: well appearing I have ordered the following: labs The patient will proceed to the ED for further evaluation. Discharge Disposition - Diagnosis Bleeding from left ear - Referrals - Patient Instructions - Post Discharge Activity
[2017-06-19 20:56] VITALS: BP 125/65; TEMP 98.1; BMI 34.9
[2017-06-19 22:06] LABS: BASO % 0.9 % (0-2.0); EOS % 4.5 % (0-4.5); HEMATOCRIT 32.5 % (32.4-45.2); HEMOGLOBIN 10.4 GM/dL (10.7-15.3); LYMPH % 22.5 % (8-40); MCH 24.4 pg (25.7-33.7); MCHC 32.1 g/dl (32.0-36.0); MEAN CELL VOLUME 75.9 fl (80-96); MEAN PLT VOLUME 9.6 fl (7.5-11.1); MONO % 6.7 % (3.8-10.2); NEUT % 65.4 % (42.8-82.8); PLATELET COUNT 244 K/MM3 (134-434); RBC 4.28 M/mm3 (3.60-5.2); RDW 16.3 % (11.6-15.6); WHITE BLOOD COUNT 9.3 K/mm3 (4.0-10.0)
[2017-06-19 22:33] LABS: INR 2.65 (0.82-1.09)
[2017-06-19 22:46] LABS: ALBUMIN 3.3 g/dl (3.4-5.0); ANION GAP 7 (8-16); BILIRUBIN,TOTAL 0.2 mg/dL (0.2-1.0); BLOOD UREA NITROGEN 31 mg/dL (7-18); CALCIUM 8.9 mg/dL (8.5-10.1); CHLORIDE 106 mmol/L (98-107); CO2 28 mmol/L (21-32); CREATININE 1.1 mg/dL (0.55-1.02); GLUCOSE,RANDOM 223 mg/dL (74-106); POTASSIUM 4.4 mmol/L (3.5-5.1); SGOT/AST 23 U/L (15-37); SGPT/ALT 25 U/L (12-78); SODIUM 141 mmol/L (136-145); TOT PROT 6.8 g/dl (6.4-8.2)
[2017-06-19 22:49] LABS: ALK PHOS 145 U/L (45-117)
--- NOTE | 2017-06-20 00:14 | PDOC ---
History of Present Illness - General Chief Complaint: Ear Problem Stated Complaint: EAR PAIN Time Seen by Provider: 06/19/17 20:52 - History of Present Illness Initial Comments: 06/20/17 00:19 "The patient is a 77 year old female, with a significant past medical history of hypertension, hyperlipidemia, diabetes, valve replacement, AFib(on Coumadin) , who presents to the emergency department with left ear pain and bleeding since earlier today. The patient reports using Debrox ear drops to remove wax from her ear. Shortly after, patient reports using a Qtip to clean out her ear. She felt a sudden pain while using the Qtip and subsequently began to bleed. Patient reports associated left ear pain and difficulty hearing. She denies any right ear symptoms. She denies any headache, dizziness, lightheadedness, changes in gait, loss of balance, or changes in vision. She denies any fever or chills. She denies any recent travel or sick contacts. Allergies: NKDA Past Surgical History: Valve repair, pacemaker Social History: Non smoker. No ETOH or recreational drug use. PCP: Dr. Fischer " Past History - Past Medical History Allergies/Adverse Reactions: Allergies Allergy/AdvReac Type Severity Reaction Status Date / Time No Known Allergies Allergy Verified 06/19/17 20:56 Home Medications: Ambulatory Orders Amlodipine Besylate [Norvasc -] 10 mg PO DAILY 06/28/16 Aspirin [ASA -] 81 mg PO DAILY 06/28/16 Lisinopril 10 mg PO DAILY 06/28/16 Metformin HCl [Glucophage] 1,000 mg PO DAILY 06/28/16 Simvastatin 10 mg PO DAILY 06/28/16 Acetaminophen [Tylenol .Regular Strength -] 650 mg PO Q6H PRN #0 tablet Digoxin [Lanoxin -] 0.125 mg PO DAILY tablet 07/04/16 Furosemide [Lasix -] 40 mg PO BID@0600,1400 #180 tablet 07/04/16 Insulin (Levemir) [Levemir Vial] 30 units SQ ACBK ml 07/04/16 Ipratropium [place] [Atrovent Hfa] 12.9 gm IH Q6H #0 hfa.aer.ad 07/04/16 Metoprolol Succinate [Toprol XL -] 50 mg PO BID #60 tablet 07/04/16 Warfarin Na [Coumadin -] 5 mg PO SuTuThSa@18 tablet 07/04/16 Warfarin Na [Coumadin -] 6 mg PO MoWeFr@1800 tablet 07/04/16 Ofloxacin Otic [Floxin Otic -] 5 drop BID 5 Days #1 bottle 06/20/17 Cardiac Disorders: Yes (afib on coumadin, CABG, PPM) CVA: No COPD: Yes CHF: Yes Diabetes: Yes HTN: Yes Hypercholesterolemia: Yes - Surgical History Cardiac Surgery: Yes (pacemaker, CABG) - Immunization History Immunization Up to Date: Yes - Suicide/Smoking/Psychosocial Hx Smoking History: Never smoked Have you smoked in the past 12 months: No If you are a former smoker, when did you quit?: 2009 Information on smoking cessation initiated: No Hx Alcohol Use: No Drug/Substance Use Hx: No Substance Use Type: None Hx Substance Use Treatment: No Review of Systems - Review of Systems Comments:: 06/20/17 00:20 "GENERAL/CONSTITUTIONAL: No fever or chills. No weakness. HEAD, EYES, EARS, NOSE AND THROAT: +Left ear pain/ bleeding/ difficulty hearing. No change in vision. No sore throat. CARDIOVASCULAR: No chest pain or shortness of breath. RESPIRATORY: No cough, wheezing, or hemoptysis. GASTROINTESTINAL: No nausea, vomiting, diarrhea or constipation. GENITOURINARY: No dysuria, frequency, or change in urination. MUSCULOSKELETAL: No joint or muscle swelling or pain. No neck or back pain. SKIN: No rash NEUROLOGIC: No headache, vertigo, loss of consciousness, or change in strength/ sensation. ENDOCRINE: No increased thirst. No abnormal weight change. HEMATOLOGIC/LYMPHATIC: No anemia, easy bleeding, or history of blood clots. ALLERGIC/IMMUNOLOGIC: No hives or skin allergy. " *Physical Exam - Vital Signs Last Vital Signs Temp Pulse Resp BP Pulse Ox 98.1 F 16 125/65 98 06/19/17 20:53 06/19/17 20:53 06/19/17 20:53 06/19/17 20:53 - Physical Exam Comments: 06/20/17 00:20 "GENERAL: Awake, alert, and fully oriented, in no acute distress. HEAD: No signs of trauma EYES: PERRLA, EOMI, sclera anicteric, conjunctiva clear ENT: +left TM perforation, dried blood in ear canal, and decreased hearing to left ear. Right TM normal. Nares patent, oropharynx clear without exudates. Moist mucosa NECK: Nontender, no stepoffs, Normal ROM, supple, no lymphadenopathy, JVD, or masses LUNGS: Breath sounds equal, clear to auscultation bilaterally. No wheezes, and no crackles HEART: Regular rate and rhythm, normal S1 and S2, no murmurs, rubs or gallops ABDOMEN: Soft, nontender, normoactive bowel sounds. No guarding, no rebound. No masses EXTREMITIES: Normal range of motion, no edema. No clubbing or cyanosis. No cords, erythema, or tenderness NEUROLOGICAL: Cranial nerves II through XII intact. 5/5 strength and sensation in all extremities, Normal speech, normal gait, normal cerebellar function SKIN: Warm, Dry, normal turgor, no rashes or lesions noted." ED Treatment Course - LABORATORY CBC & Chemistry Diagram: 06/19/17 21:49 06/19/17 21:49 - ADDITIONAL ORDERS Additional order review: Laboratory Results 06/19/17 06/19/17 06/19/17 21:49 21:49 21:49 PT with INR INR Sodium 141 Potassium 4.4 Chloride 106 Carbon Dioxide 28 Anion Gap 7 L BUN 31 H Creatinine 1.1 H Creat Clearance w eGFR 48.42 Random Glucose 223 H Calcium 8.9 Total Bilirubin 0.2 D AST 23 ALT 25 Alkaline Phosphatase 145 H Creatine Kinase 40 Troponin I 0.02 B-Natriuretic Peptide 856.30 H Total Protein 6.8 Albumin 3.3 L Blood Type O POSITIVE Antibody Screen Negative 06/19/17 21:49 PT with INR 30.00 H INR 2.65 H Sodium Potassium Chloride Carbon Dioxide Anion Gap BUN Creatinine Creat Clearance w eGFR Random Glucose Calcium Total Bilirubin AST ALT Alkaline Phosphatase Creatine Kinase Troponin I B-Natriuretic Peptide Total Protein Albumin Blood Type Antibody Screen 06/19/17 21:49 RBC 4.28 MCV 75.9 L MCHC 32.1 RDW 16.3 H MPV 9.6 D Neutrophils % 65.4 D Lymphocytes % 22.5 D Monocytes % 6.7 Eosinophils % 4.5 D Basophils % 0.9 Medical Decision Making - Medical Decision Making 06/20/17 00:09 77 F with ruptured L TM after attempting to clean out ear wax with Q-tip. No active bleeding from ear on exam. Pt's INR today is 2.65. - Ofloxacin ear drops - ENT f/u Pt is well appearing, with normal vitals. Clinically stable for DC at this time. I discussed the physical exam findings, ancillary test results and final diagnoses with the patient. I answered all of the patient's questions. The patient was satisfied with the care received and felt comfortable with the discharge plan and treatment plan. The patient agrees to follow up with the primary care physician within 24-72 hours. *DC/Admit/Observation/Transfer Diagnosis at time of Disposition: Bleeding from left ear, Tympanic membrane perforation - Discharge Dispostion Disposition: HOME - Referrals Referrals: Lily Maher MD [Primary Care Provider] - Ap Mott MD [Staff Physician] - - Patient Instructions Printed Discharge Instructions: DI for Tympanic Membrane Perforation-Adult Additional Instructions: You have a ruptured tympanic membrane (ear drum). This may heal on its own, but in some severe cases, surgery is necessary to repair it. You must follow up with an [id number] (ENT) specialist within 1 week for further evaluation. Call the number provided to make an appointment. Use the antibiotic ear drops as prescribed to prevent infection. Avoid getting any water or liquid in your ear at all times, as this may lead to infections. - Post Discharge Activity - Attestations Physician Attestion: 06/20/17 00:16 I, Dr. Adolfo Lynn MD, attest that this document has been prepared under my direction and personally reviewed by me in its entirety. I further attest, that it accurately reflects all work, treatment, procedures and medical decision -making performed by me.
--- NOTE | 2017-06-20 11:22 | EKG ---
Test Reason : Blood Pressure : / mmHG Vent. Rate : 094 BPM Atrial Rate : 098 BPM P-R Int : 000 ms QRS Dur : 082 ms QT Int : 352 ms P-R-T Axes : 000 057 106 degrees QTc Int : 440 ms ATRIAL FIBRILLATION NONSPECIFIC T WAVE ABNORMALITY ABNORMAL ECG WHEN COMPARED WITH ECG OF 27-JUN-2016 19:02, NONSPECIFIC T WAVE ABNORMALITY NO LONGER EVIDENT IN INFERIOR LEADS Confirmed by JUAN KAM, JOANN ([id number]) on 06/20/2017 11:21:56 AM Referred By: Confirmed By:JOANN MARTINEZ MD
== END 2017-06-20 00:31 | disposition home or self-care (01) ==
LOC: JER 20:35
DX: S09.22XA Traumatic rupture of left ear drum, initial encounter (principal); Y93.E8 Activity, other personal hygiene; Y92.018 Other place in single-family (private) house as the place of occurrence of the external cause; Y99.8 Other external cause status; I25.10 Atherosclerotic heart disease of native coronary artery without angina pectoris; I10 Essential (primary) hypertension; Z95.1 Presence of aortocoronary bypass graft; I48.91 Unspecified atrial fibrillation; Z79.01 Long term (current) use of anticoagulants; E78.5 Hyperlipidemia, unspecified; E78.00 Pure hypercholesterolemia, unspecified; E11.9 Type 2 diabetes mellitus without complications; Z79.4 Long term (current) use of insulin; Z95.2 Presence of prosthetic heart valve
CPT/HCPCS: 36415; 80053; 82550; 83880; 84484; 85025; 85610; 86850; 86900; 86901; 93005; 93010; 99282-25

== ENCOUNTER 2017-07-03 13:21 | Inpatient (IN) | payer OTHER ==
[2017-07-03 13:32] VITALS: BMI 34.9
--- NOTE | 2017-07-03 13:52 | PDOC ---
History of Present Illness - General History Source: Patient Exam Limitations: No Limitations - History of Present Illness Initial Comments: 07/03/17 14:19 The patient is a 77 year old female, with a significant past medical history of hypertension, hyperlipidemia, diabetes, valve replacement, AFib(on Coumadin), who presents to the emergency department s/p witnessed mechanical fall earlier today. The patient reports she was [place], when her foot got caught between the escalator and the landing point, after which she tripped and fell on her right side. The patient reports hitting her head and associated headache, but denies any LOC, changes in vision, dizziness, lightheadedness, weakness, changes in gait, neck or back pain, numbness or tingling. She reports right shoulder, elbow, and knee pain. She reports mild shortness of breath, but denies any chest pain, diaphoresis, palpitations, or lower extremity edema. She denies any abdominal pain, nausea, or vomiting. She denies any other trauma. The patient is on blood thinners. Allergies: NKDA Past Surgical History: Valve repair, pacemaker Social History: Non smoker. No ETOH or recreational drug use. PCP: Dr. Fischer <Donato Rivera - Last Filed: 07/03/17 18:04> <Dann Cullen - Last Filed: 07/03/17 19:37> <Adrianne Dhaliwal - Last Filed: 07/05/17 10:30> - General Chief Complaint: Injury Stated Complaint: FALL Time Seen by Provider: 07/03/17 13:50 Past History <Donato Rivera - Last Filed: 07/03/17 18:04> <Dann Cullen - Last Filed: 07/03/17 19:37> - Past Medical History Cardiac Disorders: Yes (afib on coumadin, CABG, PPM) CVA: No COPD: Yes CHF: Yes Diabetes: Yes HTN: Yes Hypercholesterolemia: Yes - Surgical History Cardiac Surgery: Yes (pacemaker, CABG) - Immunization History Immunization Up to Date: Yes - Suicide/Smoking/Psychosocial Hx Smoking History: Former smoker Have you smoked in the past 12 months: No If you are a former smoker, when did you quit?: 2007 Information on smoking cessation initiated: No Hx Alcohol Use: No Drug/Substance Use Hx: No Substance Use Type: None Hx Substance Use Treatment: No <IsraAdrianne - Last Filed: 07/05/17 10:30> - Past Medical History Allergies/Adverse Reactions: Allergies Allergy/AdvReac Type Severity Reaction Status Date / Time No Known Allergies Allergy Verified 07/03/17 13:24 Home Medications: Ambulatory Orders Amlodipine Besylate [Norvasc -] 10 mg PO DAILY 06/28/16 Aspirin [ASA -] 81 mg PO DAILY 06/28/16 Lisinopril 10 mg PO DAILY 06/28/16 Simvastatin 10 mg PO DAILY 06/28/16 Furosemide [Lasix -] 40 mg PO BID@0600,1400 #180 tablet 07/04/16 Metoprolol Succinate [Toprol XL -] 50 mg PO BID #60 tablet 07/04/16 Warfarin Na [Coumadin -] 5 mg PO SuTuThSa@18 tablet 07/04/16 Warfarin Na [Coumadin -] 6 mg PO MoWeFr@1800 tablet 07/04/16 Insulin (Levemir) [Levemir Vial] 38 units SQ ACBK 07/03/17 Sitagliptin Phos/Metformin HCl [Janumet 50-1,000 mg Tablet] 1 each PO DAILY 04/21 Review of Systems - Review of Systems Able to Perform ROS?: Yes Comments:: 07/03/17 14:19 GENERAL/CONSTITUTIONAL: No fever or chills. No weakness. HEAD, EYES, EARS, NOSE AND THROAT: No change in vision. No ear pain or discharge. No sore throat. CARDIOVASCULAR: No chest pain or shortness of breath. RESPIRATORY: No cough, wheezing, or hemoptysis. GASTROINTESTINAL: No nausea, vomiting, diarrhea or constipation. GENITOURINARY: No dysuria, frequency, or change in urination. MUSCULOSKELETAL: +Right shoulder, elbow, and knee pain. No muscle swelling. No neck or back pain. SKIN: No rash NEUROLOGIC: +Headache, dizziness. No vertigo, loss of consciousness, or change in strength/sensation. ENDOCRINE: No increased thirst. No abnormal weight change. HEMATOLOGIC/LYMPHATIC: No anemia, easy bleeding, or history of blood clots. ALLERGIC/IMMUNOLOGIC: No hives or skin allergy. <Donato Rivera - Last Filed: 07/03/17 18:04> *Physical Exam - Vital Signs Last Vital Signs Temp Pulse Resp BP Pulse Ox 98.2 F 102 H 15 114/58 97 07/03/17 13:24 07/03/17 13:24 07/03/17 13:24 07/03/17 13:24 07/03/17 13:24 - Physical Exam Comments: 07/03/17 14:19 GENERAL: The patient is in no acute distress. HEAD: Normal with no signs of trauma. EYES: PERRLA, EOMI, sclera anicteric, conjunctiva clear. ENT: Ears normal, nares patent, oropharynx clear without exudates. Moist mucous membranes. NECK: Normal range of motion, supple without lymphadenopathy, JVD, or masses. LUNGS: Breath sounds equal, clear to auscultation bilaterally. No wheezes, and no crackles. HEART: Regular rate and rhythm, normal S1 and S2 without murmur, rub or gallop. ABDOMEN: Soft, nontender, normoactive bowel sounds. No guarding, no rebound. No masses palpable. EXTREMITIES: Normal range of motion, no edema. No clubbing or cyanosis. No erythema, or tenderness. NEUROLOGICAL: Cranial nerves II through XII grossly intact. Normal speech. No focal neurological deficits. MUSCULOSKELETAL: Back non-tender to palpation, no CVA tenderness SKIN: Superficial abrasion to the medial aspect of the right knee. Warm, Dry, normal turgor, no rashes or lesions noted. <Donato Rivera - Last Filed: 07/03/17 18:04> - Vital Signs Last Vital Signs Temp Pulse Resp BP Pulse Ox 98.4 F 96 H 17 132/65 95 07/03/17 18:37 07/03/17 18:37 07/03/17 18:37 07/03/17 18:37 07/03/17 18:37 <Dann Cullen - Last Filed: 07/03/17 19:37> - Vital Signs Last Vital Signs Temp Pulse Resp BP Pulse Ox 98.2 F 102 H 15 114/58 97 07/03/17 13:24 07/03/17 13:24 07/03/17 13:24 07/03/17 13:24 07/03/17 13:24 <Adrianne Dhaliwal - Last Filed: 07/05/17 10:30> ED Treatment Course - LABORATORY CBC & Chemistry Diagram: 07/03/17 14:07 07/03/17 14:07 - RADIOLOGY Radiograph Interpretation: 07/03/17 15:12 EXAM: Head CT INTERPRETED BY: Dr. Loza REVIEWED BY: Dr. Dhaliwal IMPRESSION: [id number] atrophy and mild periventricular chronic microvascular ischemic disease changes without gross evidence of acute intracranial pathology. Correlate clinically to determine further evaluation and follow-up. <Donato Rivera - Last Filed: 07/03/17 18:04> - LABORATORY CBC & Chemistry Diagram: 07/03/17 14:07 07/03/17 14:07 - ADDITIONAL ORDERS Additional order review: Laboratory Results 07/03/17 07/03/17 07/03/17 15:51 14:07 14:07 PT with INR 18.70 H INR 1.65 H D Sodium 140 Potassium 4.8 Chloride 105 Carbon Dioxide 28 Anion Gap 7 L BUN 27 H Creatinine 1.1 H Creat Clearance w eGFR 48.42 Random Glucose 109 H Calcium 8.6 Total Bilirubin 0.4 D AST 27 ALT 25 Alkaline Phosphatase 130 H Creatine Kinase 250 H Creatine Kinase Index 2.1 CK-MB (CK-2) 5.486 H Troponin I 0.02 B-Natriuretic Peptide 995.44 H Total Protein 6.8 Albumin 3.4 Stool Occult Blood Positive 07/03/17 14:07 RBC 3.71 MCV 74.1 L MCHC 31.7 L RDW 16.5 H MPV 9.0 Neutrophils % No Result Required. Lymphocytes % No Result Required. - Medications Given in the ED: ED Medications Discontinued Medications Generic Name Dose Route Start Last Admin Trade Name Freq PRN Reason Stop Dose Admin Morphine Sulfate 2 mg 07/03/17 16:36 07/03/17 17:29 Morphine Injection - IVPUSH 07/03/17 16:37 2 mg ONCE ONE Administration <Dann Cullen - Last Filed: 07/03/17 19:37> - LABORATORY CBC & Chemistry Diagram: 07/05/17 06:30 07/05/17 06:30 <Adrianne Dhaliwal - Last Filed: 07/05/17 10:30> Medical Decision Making - Medical Decision Making 07/03/17 17:11 First call placed to Dr. Caleb Fischer at 17:14. Awaiting call back. Second call place to Dr. Fischer at 18:03. Case discussed at this time. <Donato Rivera - Last Filed: 07/03/17 18:04> - Medical Decision Making 07/03/17 19:[address] Caleb Fischer to inform him that the patient has decided not to leave AMA. Dr. Fischer states that the patient's PMD will fax over information on the patient. <ReyesvalerieDann - Last Filed: 07/03/17 19:37> - Medical Decision Making 77 yo F who presents to the ER with a complaint of musculoskeltal pain s/p fall in the [place] yesterday afternoon Pt states she tripped while getting off the escalator, fell forward struck her forehead and fell backwards onto her right side No LOC No amnesia Pt was assisted to standing Refused transport to the hospital Presents today for evaluation due to increased pain No nausea or vomiting Pt is ambulatory with pain Rates pain 07/1107/03/17 17:24 Laboratory Tests 06/19/17 06/19/17 06/19/17 21:49 21:49 21:49 WBC 9.3 D Hgb 10.4 L Hct 32.5 Plt Count 244 D PT with INR 30.00 H INR 2.65 H Sodium 141 Potassium Chloride 106 Carbon Dioxide 28 BUN 31 H Creatinine 1.1 H Creatine Kinase Index CK-MB (CK-2) Troponin I 0.02 B-Natriuretic Peptide Total Protein Albumin Stool Occult Blood 06/19/17 07/03/17 07/03/17 21:49 14:07 14:07 WBC 11.4 H Hgb 8.7 L D Hct 27.5 L D Plt Count 306 D PT with INR 18.70 H INR 1.65 H D Sodium Potassium Chloride Carbon Dioxide BUN Creatinine Creatine Kinase Index CK-MB (CK-2) Troponin I B-Natriuretic Peptide 856.30 H Total Protein Albumin Stool Occult Blood 07/03/17 07/03/17 14:07 15:51 WBC Hgb Hct Plt Count PT with INR INR Sodium 140 Potassium 4.8 Chloride 105 Carbon Dioxide 28 BUN 27 H Creatinine 1.1 H Creatine Kinase Index 2.1 CK-MB (CK-2) 5.486 H Troponin I 0.02 B-Natriuretic Peptide 995.44 H Total Protein 6.8 Albumin 3.4 Stool Occult Blood Positive EKG: Atrial fibrillation, rate of 90 bpm, axis is normal, intervals are normal, no ST elevations or depressions Guiaic (+) Pt was supposed to follow up with GI but did not Will admit to Dr Fischer I have reviewed this plan with the patient and her They are refusing to stay Will AMA Clinical Impression: Hemoglobin decrease, initial presentation Guiaic (+) stools, initial presentation Note: The patient insists on leaving the emergency dept and is signing out against medical advice. The patient understands the risks and complications that may result from the refusal of medical care and admission which includes and permanent disability. The patient has the mental capacity of understanding the risks of refusing care and is capable of making an informed decision. The patient was instructed to return to the emergency department should she change her mind regarding medical care or should her condition worsen. The patient signed the Against Medical Advice form. 07/03/17 19:29 Pt decided to stay in the hospital Will admit to Dr Fischer Clinical Impression: Hemoglobin decrease, initial presentation Guiaic (+) stools, initial presentation <Adrianne Dhaliwal - Last Filed: 07/05/17 10:30> *DC/Admit/Observation/Transfer - Attestations Scribe Attestion: 07/03/17 14:20 Documentation prepared by Donato Rivera, acting as medical corps officer for Adrianne Dhaliwal MD. <Donato Rivera - Last Filed: 07/03/17 18:04> <Dann Cullen - Last Filed: 07/03/17 19:37> - Discharge Dispostion Admit: Yes <Adrianne Dhaliwal - Last Filed: 07/05/17 10:30> Diagnosis at time of Disposition: Hemoglobin decreased, Guaiac + stool Accident due to mechanical fall without injury Qualifiers: Encounter type: initial encounter Qualified Code(s): W19.XXXA - Unspecified fall, initial encounter - Discharge Dispostion Condition at time of disposition: Stable
[2017-07-03 14:22] LABS: WHITE BLOOD COUNT 11.4 K/mm3 (4.0-10.0)
[2017-07-03 14:27] LABS: HEMATOCRIT 27.5 % (32.4-45.2); HEMOGLOBIN 8.7 GM/dL (10.7-15.3); MCH 23.5 pg (25.7-33.7); MCHC 31.7 g/dl (32.0-36.0); MEAN CELL VOLUME 74.1 fl (80-96); PLATELET COUNT 306 K/MM3 (134-434); RBC 3.71 M/mm3 (3.60-5.2); RDW 16.5 % (11.6-15.6)
[2017-07-03 14:46] LABS: INR 1.65 (0.82-1.09); PROTHROMBIN TIME (PATIENT) 18.7 SEC (9.7-13.0)
[2017-07-03 14:48] LABS: ALBUMIN 3.4 g/dl (3.4-5.0); ALK PHOS 130 U/L (45-117); ANION GAP 7 (8-16); BILIRUBIN,TOTAL 0.4 mg/dL (0.2-1.0); BLOOD UREA NITROGEN 27 mg/dL (7-18); CALCIUM 8.6 mg/dL (8.5-10.1); CHLORIDE 105 mmol/L (98-107); CO2 28 mmol/L (21-32); CREATININE 1.1 mg/dL (0.55-1.02); GLUCOSE,RANDOM 109 mg/dL (74-106); POTASSIUM 4.8 mmol/L (3.5-5.1); SGOT/AST 27 U/L (15-37); SGPT/ALT 25 U/L (12-78); SODIUM 140 mmol/L (136-145); TOT PROT 6.8 g/dl (6.4-8.2)
[2017-07-03 14:50] LABS: N-TERMINAL BNP 995.44 pg/ml (5-450)
[2017-07-03 15:09] LABS: TEAR DROP CELLS 1+
[2017-07-03] MEDS ORDERED: morphine CARPU-JECT 4 MG/1 ML DISP.SYRIN IVPUSH ONE (16:36)
[2017-07-03] MEDS ORDERED: morphine SULFATE 4 MG/ML VIAL ONE (17:27)
--- NOTE | 2017-07-03 19:51 | EKG ---
Test Reason : Blood Pressure : / mmHG Vent. Rate : 098 BPM Atrial Rate : 312 BPM P-R Int : 000 ms QRS Dur : 076 ms QT Int : 348 ms P-R-T Axes : 000 044 106 degrees QTc Int : 444 ms ATRIAL FIBRILLATION NONSPECIFIC T WAVE ABNORMALITY ABNORMAL ECG WHEN COMPARED WITH ECG OF 19-JUN-2017 21:53, NO SIGNIFICANT CHANGE WAS FOUND Confirmed by MENA ROSARIO MD ([id number]) on 07/03/2017 7:50:57 PM Referred By: Confirmed By:MENA ROSARIO MD
[2017-07-03] MEDS ORDERED: HEPARIN NA (PORCINE) 5,000 UNITS/ML 1ML VIAL IVPUSH PRN ×2 (22:31)
[2017-07-03] MEDS: HEPARIN - 25,000 UNIT in SODIUM CHLORIDE 495 ML IV SCH (23:27)
[2017-07-04] MEDS: PANTOPRAZOLE SODIUM 40 MG VIAL IVPUSH ONE ×2 (01:45→05:40)
[2017-07-04] MEDS: FUROSEMIDE 40 MG TABLET (FP) PO SCH ×2 (05:32→13:22)
[2017-07-04] MEDS: INSULIN SLIDING SCALE (NOVOLOG) 1 VIAL SQ SCH ×5 (06:08→21:42)
[2017-07-04] MEDS ORDERED: PANTOPRAZOLE SODIUM 40 MG VIAL IVPUSH ONE (06:30)
[2017-07-04 07:51] LABS: HEMATOCRIT 25.3 % (32.4-45.2); MCH 23.3 pg (25.7-33.7); MCHC 31.5 g/dl (32.0-36.0); MEAN PLT VOLUME 9.2 fl (7.5-11.1); PLATELET COUNT 240 K/MM3 (134-434); RBC 3.42 M/mm3 (3.60-5.2); RDW 16.2 % (11.6-15.6); WHITE BLOOD COUNT 8.6 K/mm3 (4.0-10.0)
[2017-07-04 08:14] LABS: ANION GAP 5 (8-16); BILIRUBIN,TOTAL 0.5 mg/dL (0.2-1.0); BLOOD UREA NITROGEN 22 mg/dL (7-18); CALCIUM 8.3 mg/dL (8.5-10.1); CHLORIDE 106 mmol/L (98-107); CO2 29 mmol/L (21-32); CREATININE 0.9 mg/dL (0.55-1.02); GLUCOSE,RANDOM 167 mg/dL (74-106); POTASSIUM 4.6 mmol/L (3.5-5.1); SGOT/AST 21 U/L (15-37); SGPT/ALT 19 U/L (12-78); SODIUM 140 mmol/L (136-145); TOT PROT 6.1 g/dl (6.4-8.2)
[2017-07-04 08:18] LABS: ALK PHOS 97 U/L (45-117)
[2017-07-04 08:35] LABS: INR 1.76 (0.82-1.09); PROTHROMBIN TIME (PATIENT) 19.9 SEC (9.7-13.0)
--- NOTE | 2017-07-04 09:56 | HP ---
Admitting History and Physical - Primary Care Physician PCP: Caleb Fischer - Admission Chief Complaint: Fall History of Present Illness: Pt with significant history of A Fib on AC, worsening anemia, CAD (with abnormal recent Stress test), mechanical fall (couple of days ago, in a bank) , came to ER to be evaluated after the fall; in ER she was found to have a significant lower H/H and stool + for blood. Pt was admitted for Anemia, GIB. History Source: Patient Limitations to Obtaining History: No Limitations - Past Medical History Cardiovascular: Yes: AFIB (on AC), Aortic Stenosis (s/p ring repair at [facility]), CAD , HTN, Other (PPM) Pulmonary: Yes: COPD ...: No Endocrine: Yes: Diabetes Mellitus - Smoking History Smoking history: Former smoker Have you smoked in the past 12 months: No If you are a former smoker, when did you quit?: 2007 - Alcohol/Substance Use Hx Alcohol Use: No Home Medications - Allergies Allergies/Adverse Reactions: Allergies Allergy/AdvReac Type Severity Reaction Status Date / Time No Known Allergies Allergy Verified 07/16/17 16:49 - Home Medications Home Medications: Ambulatory Orders Amlodipine Besylate [Norvasc -] 10 mg PO DAILY 06/28/16 Aspirin [ASA -] 81 mg PO DAILY 06/28/16 Lisinopril 10 mg PO DAILY 06/28/16 Simvastatin 10 mg PO DAILY 06/28/16 Furosemide [Lasix -] 40 mg PO BID@0600,1400 #180 tablet 07/04/16 Metoprolol Succinate [Toprol XL -] 50 mg PO BID #60 tablet 07/04/16 Insulin (Levemir) [Levemir Vial] 38 units SQ ACBK 07/03/17 Sitagliptin Phos/Metformin HCl [Janumet 50-1,000 mg Tablet] 1 each PO DAILY 04/21 Ascorbic Acid [Vitamin C -] 500 mg PO BID 30 Days #60 tablet MDD 2 07/10/17 Bacitracin - [Bacitracin Topical Ointment -] 1 applic TP BID tube 07/10/17 Ferrous Sulfate [Feosol] 325 mg PO BID #60 ud MDD 2 07/10/17 Polyethylene Glycol 3350 [Miralax 119 gm Btl -] 17 gm PO BID 30 Days #1 bottle MDD 2 07/10/17 Warfarin Na [Coumadin -] 5 mg PO SuTuThSa@18 #0 tablet 07/10/17 Warfarin Na [Coumadin -] 6 mg PO MoWeFr@1800 #0 tablet 07/10/17 Review of Systems - Review of Systems Constitutional: denies: Chills, Fever, Unintentional Wgt. Loss Eyes: denies: Blurred Vision, Recent Change in Vision HENT: reports: Ear Pain. denies: Difficult Swallowing, Ear Discharge, Epistaxis , Gingival Bleeding, Nasal Congestion, Throat Pain Cardiovascular: denies: Chest Pain, Edema, Palpitations Respiratory: denies: SOB, SOB on Exertion Gastrointestinal: reports: Vomiting Blood. denies: Abdominal Pain, Diarrhea, Rectal Bleeding Genitourinary: denies: Burning, Discharge, Dysuria Musculoskeletal: denies: Back Pain, Muscle Pain Integumentary: reports: Eczema, Rash. denies: Blister Neurological: reports: Change in Speech, Incoordination. denies: Change in LOC , Numbness, Unsteady Gait, Weakness Endocrine: reports: Excessive Sweating. denies: Intolerance to Cold Hematology/Lymphatic: reports: Excessive Bleeding. denies: Easily Bruised Psychiatric: denies: Anxiety, Depression Physical Examination Vital Signs: Vital Signs Temperature 97.7 F 07/04/17 06:01 Pulse Rate 100 H 07/04/17 06:01 Respiratory Rate 20 07/04/17 06:01 Blood Pressure 118/63 07/04/17 06:01 O2 Sat by Pulse Oximetry (%) 93 L 07/04/17 01:00 Constitutional: Yes: No Distress, Calm Eyes: Yes: Conjunctiva Clear, EOM Intact, PERRL HENT: Yes: Atraumatic. No: Drooling, Epistaxis, Pharyngeal Erythema, Rhinnorhea Neck: Yes: Trachea Midline. No: Lymphadenopathy, Thyromegaly Cardiovascular: Yes: Pulse Irregular, S1, S2 Respiratory: Yes: Regular, Other ( coarse BS bilat.) Gastrointestinal: Yes: Normal Bowel Sounds, Soft. No: Hepatomegaly, Splenomegaly ...Rectal Exam: Yes: Deferred Renal/: Yes: CVA Tenderness - Left, CVA Tenderness - Right. No: Bladder Distention Breast(s): Yes: Other (deferred) Musculoskeletal: No: Back Pain, Joint Stiffness, Joint Swelling Extremities: No: Cold, Cool Edema: No Neurological: Yes: Alert, Oriented, Other (motor and sensory examination i s symmetric in UE/LE/ face) Psychiatric: Yes: Alert, Oriented Labs: CBC, BMP 07/04/17 06:45 07/04/17 06:45 Imaging - Results X-ray: Report Reviewed Cat Scan: Report Reviewed Problem List - Problems (1) GIB (gastrointestinal bleeding) Code(s): K92.2 - GASTROINTESTINAL HEMORRHAGE, UNSPECIFIED Qualifiers: GI bleed type/associated pathology: unspecified gastrointestinal hemorrhage type Qualified Code(s): K92.2 - Gastrointestinal hemorrhage, unspecified (2) Anemia Code(s): D64.9 - ANEMIA, UNSPECIFIED Qualifiers: Iron deficiency anemia type: chronic blood loss (3) CAD (coronary artery disease) Code(s): I25.10 - ATHSCL HEART DISEASE OF [place] CORONARY ARTERY W/O ANG PCTRS (4) Abnormal stress test Code(s): R94.39 - ABNORMAL RESULT OF OTHER CARDIOVASCULAR FUNCTION STUDY (5) Guaiac + stool Code(s): R19.5 - OTHER FECAL ABNORMALITIES (6) COPD (chronic obstructive pulmonary disease) Code(s): J44.9 - CHRONIC OBSTRUCTIVE PULMONARY DISEASE, UNSPECIFIED (7) Diabetes mellitus Code(s): E11.9 - TYPE 2 DIABETES MELLITUS WITHOUT COMPLICATIONS (8) Fall Code(s): W19.XXXA - UNSPECIFIED FALL, INITIAL ENCOUNTER (9) Diabetes Code(s): E11.9 - TYPE 2 DIABETES MELLITUS WITHOUT COMPLICATIONS Assessment/Plan Amitted ro monitor bed Monitor H/H PPI GI consult Cardio consult Clear liquid diet, untill seen by GI Insulin on hold untillpt resumes baseline diet. PPI Coumadin was held ; pt was statrted on Heparin infusion. Case was d/w pt and pt's (at bedside). Both were made aware that possible Heparin side efect can be more bleed and anemia getting worse; risks associated with stopping Coumadin or Heparin (e.g., but not limited to, : stroke , [place], acute ischemic event, ) were discussed with both of them; both were offered possibility of asking questions, all questions were answered. Possibility of blood transfusion was d/w with both, allquestions were answered. Pt's nurse at bedside, witnessed above discussion. Pt.s case was d/w pt's nurse. Repeate CBC today. AM labs.
[2017-07-04] MEDS ORDERED: ASPIRIN 81 MG CHEWABLE TABLETS PO SCH (10:00)
[2017-07-04] MEDS: HEPARIN - 25,000 UNIT in SODIUM CHLORIDE 495 ML IV SCH (10:00)
[2017-07-04] MEDS: LISINOPRIL 10 MG TABLET (FP) PO SCH (10:01)
[2017-07-04] MEDS: amLODIPine BESYLATE 10 MG TABLET (FP) PO SCH (10:01)
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
[2017-07-04 17:04] LABS: HEMATOCRIT 24.6 % (32.4-45.2); HEMOGLOBIN 7.8 GM/dL (10.7-15.3); MCH 23.2 pg (25.7-33.7); MCHC 31.6 g/dl (32.0-36.0); MEAN CELL VOLUME 73.4 fl (80-96); MEAN PLT VOLUME 9.1 fl (7.5-11.1); PLATELET COUNT 246 K/MM3 (134-434); RBC 3.35 M/mm3 (3.60-5.2); RDW 16.2 % (11.6-15.6); WHITE BLOOD COUNT 7.1 K/mm3 (4.0-10.0)
--- NOTE | 2017-07-04 20:21 | CON.GI ---
Consult Consult Specialty:: Gastroenterology Referred by:: Dr Fischer Reason for Consultation:: Anemia, GI bleed` - History of Present Illness Chief Complaint: I fell down. History of Present Illness: 77F is admitted after a fall and is found to have a decreasing Hb from 10 to 7.8. She denies any overt GI bleeding. She denies any change in bowel habits, abdominal pain, weight loss, narrowed stools ,dysphagia or early satiety. She denies a FH of GI malignancy. She has never had an EGD or a colonoscopy. She is on warfarin for atrial fibrillation and has a PPM and had a mitral valve repair at [facility] in 2009. - History Source History Provided By: Patient Limitations to Obtaining History: No Limitations - Past Medical History Cardio/Vascular: Yes: AFIB (on AC), CHF (diastolic), HTN, Hyperlipdemia, Mitral Insufficiency (required MVR in 2009 at [facility]) Pulmonary: Yes: COPD ...: No Heme/Onc: Yes: Anemia Rheumatology: Yes: Other (osteoarthritis) Endocrine: Yes: Diabetes Mellitus - Past Surgical History Additional Surgical History: Mitral valve replacement. Right foot bone surgery. 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 Place of : [facility] History of Recent Travel: No Home Medications - Allergies Allergies/Adverse Reactions: Allergies Allergy/AdvReac Type Severity Reaction Status Date / Time No Known Allergies Allergy Verified 07/03/17 13:24 - Home Medications Home Medications: Ambulatory Orders Amlodipine Besylate [Norvasc -] 10 mg PO DAILY 06/28/16 Aspirin [ASA -] 81 mg PO DAILY 06/28/16 Lisinopril 10 mg PO DAILY 06/28/16 Simvastatin 10 mg PO DAILY 06/28/16 Furosemide [Lasix -] 40 mg PO BID@0600,1400 #180 tablet 07/04/16 Metoprolol Succinate [Toprol XL -] 50 mg PO BID #60 tablet 07/04/16 Warfarin Na [Coumadin -] 5 mg PO SuTuThSa@18 tablet 07/04/16 Warfarin Na [Coumadin -] 6 mg PO MoWeFr@1800 tablet 07/04/16 Insulin (Levemir) [Levemir Vial] 38 units SQ ACBK 07/03/17 Sitagliptin Phos/Metformin HCl [Janumet 50-1,000 mg Tablet] 1 each PO DAILY 04/21 Family Disease History - Family Disease History Family Disease History: Heart Disease: Father ( [place] age 67), Mother ( CHF in her 70's) Other Family History: No cancer Review of Systems - Review of Systems Constitutional: reports: No Symptoms Eyes: reports: No Symptoms HENT: reports: No Symptoms Neck: reports: No Symptoms Cardiovascular: reports: Shortness of Breath Respiratory: reports: Exercise Intolerance, SOB on Exertion Gastrointestinal: reports: No Symptoms Genitourinary: reports: No Symptoms Musculoskeletal: reports: No Symptoms Physical Exam-GI Vital Signs: Vital Signs Temperature 98.2 F 07/04/17 17:00 Pulse Rate 111 H 07/04/17 17:00 Respiratory Rate 20 07/04/17 17:00 Blood Pressure 141/76 07/04/17 17:00 O2 Sat by Pulse Oximetry (%) 95 07/04/17 10:00 CBC,CMP WBC 7.1 K/mm3 (4.0-10.0) 07/04/17 16:15 RBC 3.35 M/mm3 (3.60-5.2) L 07/04/17 16:15 Hgb 7.8 GM/dL (10.7-15.3) L 07/04/17 16:15 Hct 24.6 % (32.4-45.2) L 07/04/17 16:15 MCV 73.4 fl (80-96) L 07/04/17 16:15 MCH 23.2 pg (25.7-33.7) L 07/04/17 16:15 MCHC 31.6 g/dl (32.0-36.0) L 07/04/17 16:15 RDW 16.2 % (11.6-15.6) H 07/04/17 16:15 Plt Count 246 K/MM3 (134-434) 07/04/17 16:15 MPV 9.1 fl (7.5-11.1) 07/04/17 16:15 Total Counted 100 07/03/17 14:07 Neutrophils % No Result Required. 07/03/17 14:07 Neutrophils % (Manual) 79.0 % (42.8-82.8) 07/03/17 14:07 Lymphocytes % No Result Required. 07/03/17 14:07 Lymphocytes % (Manual) 14.0 % (8-40) 07/03/17 14:07 Monocytes % (Manual) 5 % (3.8-10.2) 07/03/17 14:07 Eosinophils % (Manual) 2.0 % (0-4.5) 07/03/17 14:07 Microcytosis 1+ 07/03/17 14:07 Tear Drop Cells 1+ 07/03/17 14:07 Sodium 140 mmol/L (136-145) 07/04/17 06:45 Potassium 4.6 mmol/L (3.5-5.1) 07/04/17 06:45 Chloride 106 mmol/L (98-107) 07/04/17 06:45 Carbon Dioxide 29 mmol/L (21-32) 07/04/17 06:45 Anion Gap 5 (8-16) L 07/04/17 06:45 BUN 22 mg/dL (7-18) H 07/04/17 06:45 Creatinine 0.9 mg/dL (0.55-1.02) 07/04/17 06:45 Creat Clearance w eGFR > 60 (>60) 07/04/17 06:45 POC Glucometer 270 UNITS (80-120) 07/04/17 18:04 Random Glucose 167 mg/dL (74-106) H 07/04/17 06:45 Calcium 8.3 mg/dL (8.5-10.1) L 07/04/17 06:45 Total Bilirubin 0.5 mg/dL (0.2-1.0) D 07/04/17 06:45 AST 21 U/L (15-37) 07/04/17 06:45 ALT 19 U/L (12-78) 07/04/17 06:45 Alkaline Phosphatase 97 U/L (45-117) 07/04/17 06:45 Creatine Kinase 250 IU/L (26-192) H 07/03/17 14:07 Creatine Kinase Index 2.1 % (0.0-5.0) 07/03/17 14:07 CK-MB (CK-2) 5.486 ng/mL (0.5-3.6) H 07/03/17 14:07 Troponin I 0.02 ng/ml (0.00-0.05) 07/03/17 14:07 B-Natriuretic Peptide 995.44 pg/ml (5-450) H 07/03/17 14:07 Total Protein 6.1 g/dl (6.4-8.2) L 07/04/17 06:45 Albumin 3.0 g/dl (3.4-5.0) L 07/04/17 06:45 Current Medications Generic Name Dose Route Start Last Admin Trade Name Freq PRN Reason Stop Dose Admin Amlodipine Besylate 10 mg 07/04/17 10:00 07/04/17 10:01 Norvasc - PO 10 mg DAILY BAHMAN Administration Atorvastatin Calcium 10 mg 07/04/17 22:00 Lipitor - PO HS BAHMAN Furosemide 40 mg 07/04/17 06:00 07/04/17 13:22 Lasix - PO 40 mg BID@0600,1400 BAHMAN Administration Heparin Sodium (Porcine) 1,000 unit 07/03/17 22:31 07/04/17 10:00 Heparin - IVPUSH 1,000 unit PRN PRN Administration Heparin Heparin Sodium (Porcine) 5,000 unit 07/03/17 22:31 Heparin - IVPUSH PRN PRN Heparin Insulin Aspart 1 vial 07/04/17 07:00 07/04/17 18:12 Novolog Vial Sliding Scale - SQ 6 units ACHS BAMHAN Administration Protocol Lisinopril 10 mg 07/04/17 10:00 07/04/17 10:01 Prinivil PO 10 mg DAILY BAHMAN Administration Metoprolol Succinate 50 mg 07/03/17 22:45 07/04/17 10:01 Toprol Xl - PO 50 mg BID BAHMAN Administration Constitutional: Yes: No Distress Eyes: Yes: Conjunctiva Clear HENT: Yes: Normocephalic Neck: Yes: Supple Cardiovascular: Yes: Regular Rate and Rhythm (left PPM) Respiratory: Yes: CTA Bilaterally Gastrointestinal Inspection: Yes: WNL ...Auscultate: Yes: Normoactive Bowel Sounds ...Palpate: Yes: Soft, Other (nontender) ...Rectal Exam: Yes: Guaiac Positive (brown guaiac positive stool), Sphincter Tone Normal Musculoskeletal: Yes: WNL Edema: No Peripheral Pulses WNL: Yes Neurological: Yes: Alert, Oriented Labs: CBC, BMP 07/04/17 16:15 07/04/17 06:45 INR, PTT INR 1.76 (0.82-1.09) H 07/04/17 07:35 Laboratory Tests 06/27/16 06/19/17 07/03/17 19:35 21:49 14:07 Hgb 10.9 10.4 L 8.7 L D 07/04/17 16:15 Hgb 7.8 L Problem List - Problems (1) GIB (gastrointestinal bleeding) Assessment/Plan: Mikayla's microcytic anemia appears to be due to GI blood loss. Potential etiologies include ulcer disease, erosive gastritis/duodenitis, bleeding AVMs, GERD, neoplasms among others. I have proposed both an EGD and a colonoscopy after she is transfused and her INR normalizes if she is medically cleared. I have discussed both procedures in detail and informed her and her of the potential for such complications as perforation and hemorrhage. We also discussed the risks of anesthesia and of thromboembolic phenomena as we interrupt her anticoagulation. She has signed informed consents for both. I will try to schedule her for 07/08. PPUI will be given empirically in the interim Code(s): K92.2 - GASTROINTESTINAL HEMORRHAGE, UNSPECIFIED Qualifiers: GI bleed type/associated pathology: unspecified gastrointestinal hemorrhage type Qualified Code(s): K92.2 - Gastrointestinal hemorrhage, unspecified (2) H/O mitral valve replacement Code(s): Z95.2 - PRESENCE OF PROSTHETIC HEART VALVE (3) Anemia Code(s): D64.9 - ANEMIA, UNSPECIFIED Qualifiers: Iron deficiency anemia type: chronic blood loss
[2017-07-04] MEDS: ATORVASTATIN CA 10 MG TABLET (FP) PO SCH (21:41)
[2017-07-04] MEDS: PANTOPRAZOLE 40 MG TABLET (FP) PO SCH (21:41)
[2017-07-04] MEDS: POLYETHYLENE GLYCOL 3350 119 GM BTL PO SCH (21:52)
[2017-07-05] MEDS: ACETAMINOPHEN 325 MG TABLET (FP) PO PRN ×3 (01:51→21:29)
[2017-07-05] MEDS: FUROSEMIDE 40 MG TABLET (FP) PO SCH ×2 (06:49→14:22)
[2017-07-05] MEDS: INSULIN SLIDING SCALE (NOVOLOG) 1 VIAL SQ SCH ×4 (06:49→21:28)
[2017-07-05 07:05] LABS: INR 1.53 (0.82-1.09); PROTHROMBIN TIME (PATIENT) 17.3 SEC (9.7-13.0)
[2017-07-05 07:28] LABS: ALBUMIN 2.9 g/dl (3.4-5.0); ANION GAP 9 (8-16); BLOOD UREA NITROGEN 16 mg/dL (7-18); CHLORIDE 104 mmol/L (98-107); CO2 27 mmol/L (21-32); GLUCOSE,RANDOM 199 mg/dL (74-106); POTASSIUM 4.4 mmol/L (3.5-5.1); SODIUM 140 mmol/L (136-145)
[2017-07-05 07:31] LABS: HEMATOCRIT 27.3 % (32.4-45.2); HEMOGLOBIN 8.8 GM/dL (10.7-15.3); MCH 24.2 pg (25.7-33.7); MCHC 32.2 g/dl (32.0-36.0); MEAN PLT VOLUME 9.1 fl (7.5-11.1); PLATELET COUNT 230 K/MM3 (134-434); RBC 3.63 M/mm3 (3.60-5.2); RDW 16.4 % (11.6-15.6)
[2017-07-05 07:57] LABS: ALK PHOS 94 U/L (45-117); BILIRUBIN,TOTAL 0.9 mg/dL (0.2-1.0); CREATININE 0.9 mg/dL (0.55-1.02); SGOT/AST 22 U/L (15-37); SGPT/ALT 18 U/L (12-78); TOT PROT 6.1 g/dl (6.4-8.2)
[2017-07-05] MEDS: POLYETHYLENE GLYCOL 3350 119 GM BTL PO SCH ×2 (09:26→21:28)
[2017-07-05] MEDS: amLODIPine BESYLATE 10 MG TABLET (FP) PO SCH (09:27)
[2017-07-05] MEDS: PANTOPRAZOLE 40 MG TABLET (FP) PO SCH ×2 (09:27→21:28)
[2017-07-05] MEDS: LISINOPRIL 10 MG TABLET (FP) PO SCH (09:27)
--- NOTE | 2017-07-05 10:04 | PN ---
Progress Note, Physician History of Present Illness: Pt w/o SOB, CP, palpitations, abd apin. Pt noticed blood in her today. - Current Medication List Current Medications: Active Medications Acetaminophen (Tylenol -) 650 mg PO Q6H PRN PRN Reason: PAIN LEVEL 5-10 Last Admin: 07/05/17 01:51 Dose: 650 mg Amlodipine Besylate (Norvasc -) 10 mg PO DAILY [facility] Last Admin: 07/05/17 09:27 Dose: 10 mg Atorvastatin Calcium (Lipitor -) 10 mg PO HS [facility] Last Admin: 07/04/17 21:41 Dose: 10 mg Bisacodyl (Dulcolax -) 20 mg PO ONCE ONE Stop: 07/07/17 18:01 Furosemide (Lasix -) 40 mg PO BID@0600,1400 [facility] Last Admin: 07/05/17 06:49 Dose: 40 mg Heparin Sodium (Porcine) (Heparin -) 1,000 unit IVPUSH PRN PRN PRN Reason: Heparin Last Admin: 07/04/17 10:00 Dose: 1,000 unit Heparin Sodium (Porcine) (Heparin -) 5,000 unit IVPUSH PRN PRN PRN Reason: Heparin Stop: 07/07/17 11:00 Insulin Aspart (Novolog Vial Sliding Scale -) 1 vial SQ ACHS [facility] PRN Reason: Protocol Last Admin: 07/05/17 06:49 Dose: 4 units Lisinopril (Prinivil) 10 mg PO DAILY [facility] Last Admin: 07/05/17 09:27 Dose: 10 mg Metoprolol Succinate (Toprol Xl -) 50 mg PO BID [facility] Last Admin: 07/05/17 09:27 Dose: 50 mg Pantoprazole Sodium (Protonix -) 40 mg PO BID [facility] Last Admin: 07/05/17 09:27 Dose: 40 mg Polyethylene Glycol (Miralax (For Daily Use) -) 17 gm PO BID [facility] Last Admin: 07/05/17 09:26 Dose: 17 gm Polyethylene Glycol/Electrolytes (Golytely Solution -) 4,000 ml PO ONCE ONE Stop: 07/07/17 09:01 - Objective Vital Signs: Vital Signs Temperature 97.9 F 07/05/17 08:20 Pulse Rate 61 07/05/17 08:20 Respiratory Rate 18 07/05/17 08:20 Blood Pressure 142/68 07/05/17 08:20 O2 Sat by Pulse Oximetry (%) 95 07/04/17 20:37 Constitutional: Yes: No Distress, Calm Cardiovascular: Yes: Regular Rate and Rhythm, S1, S2 Respiratory: Yes: Regular, Other (coarse BS, no rales) Gastrointestinal: Yes: Normal Bowel Sounds, Soft. No: Tenderness Edema: No Neurological: Yes: Alert, Oriented Labs: CBC, BMP 07/05/17 06:30 07/05/17 06:30 INR, PTT INR 1.53 (0.82-1.09) H 07/05/17 06:30 Problem List - Problems (1) GIB (gastrointestinal bleeding) Code(s): K92.2 - GASTROINTESTINAL HEMORRHAGE, UNSPECIFIED Qualifiers: GI bleed type/associated pathology: unspecified gastrointestinal hemorrhage type Qualified Code(s): K92.2 - Gastrointestinal hemorrhage, unspecified (2) Anemia Code(s): D64.9 - ANEMIA, UNSPECIFIED Qualifiers: Iron deficiency anemia type: chronic blood loss (3) CAD (coronary artery disease) Code(s): I25.10 - ATHSCL HEART DISEASE OF [place] CORONARY ARTERY W/O ANG PCTRS (4) Abnormal stress test Code(s): R94.39 - ABNORMAL RESULT OF OTHER CARDIOVASCULAR FUNCTION STUDY (5) Guaiac + stool Code(s): R19.5 - OTHER FECAL ABNORMALITIES (6) COPD (chronic obstructive pulmonary disease) Code(s): J44.9 - CHRONIC OBSTRUCTIVE PULMONARY DISEASE, UNSPECIFIED (7) Diabetes mellitus Code(s): E11.9 - TYPE 2 DIABETES MELLITUS WITHOUT COMPLICATIONS (8) Fall Code(s): W19.XXXA - UNSPECIFIED FALL, INITIAL ENCOUNTER (9) Diabetes Code(s): E11.9 - TYPE 2 DIABETES MELLITUS WITHOUT COMPLICATIONS Assessment/Plan Admitted to monitor bed. h/H was trending down yesterday, Heparin infusion was DC'ed, one unit of PRBC was given llast night. To continue to monitor H/H PPI GI and Cardio consult appreciated Diet was advanced Start Levemir to hold AC; case was d/w w Dr Davalos- he agrees with holding AC. Pt's case was d/w pt's nurse. AM labs.
[2017-07-05] MEDS: INSULIN (LEVEMIR) 100 UNITS/ML UNITS SQ SCH (11:14)
--- NOTE | 2017-07-05 11:45 | PN ---
Progress Note (short form) - Note Progress Note: s: no cp palps dizzy, mild rajput o: Vital Signs Period Temp Pulse Resp BP Sys/[place] Pulse Ox Last 24 Hr 97.9 F-98.6 F 61-111 18-20 114-144/50-76 94-95 nad no jvd irreg, tachy, s1s2 no mrg ctab, nl eff no jaundice diaphoresis aaox3 no le edema bl, no c/c Current Medications Generic Name Dose Route Start Last Admin Trade Name Freq PRN Reason Stop Dose Admin Acetaminophen 650 mg 07/05/17 01:36 07/05/17 01:51 Tylenol - PO 650 mg Q6H PRN Administration PAIN LEVEL 5-10 Amlodipine Besylate 10 mg 07/04/17 10:00 07/05/17 09:27 Norvasc - PO 10 mg DAILY [facility] Administration Atorvastatin Calcium 10 mg 07/04/17 22:00 07/04/17 21:41 Lipitor - PO 10 mg HS [facility] Administration Bisacodyl 20 mg 07/07/17 18:00 Dulcolax - PO 07/07/17 18:01 ONCE ONE Furosemide 40 mg 07/04/17 06:00 07/05/17 06:49 Lasix - PO 40 mg BID@0600,1400 [facility] Administration Heparin Sodium (Porcine) 1,000 unit 07/03/17 22:31 07/04/17 10:00 Heparin - IVPUSH 1,000 unit PRN PRN Administration Heparin Heparin Sodium (Porcine) 5,000 unit 07/03/17 22:31 Heparin - IVPUSH 07/07/17 11:00 PRN PRN Heparin Insulin Aspart 1 vial 07/04/17 07:00 07/05/17 11:15 Novolog Vial Sliding Scale - SQ 6 units ACHS [facility] Administration Protocol Insulin Detemir 28 units 07/05/17 10:30 07/05/17 11:14 Levemir Vial SQ 28 units ACBK [facility] Administration Lisinopril 10 mg 07/04/17 10:00 07/05/17 09:27 Prinivil PO 10 mg DAILY [facility] Administration Metoprolol Succinate 50 mg 07/03/17 22:45 07/05/17 09:27 Toprol Xl - PO 50 mg BID [facility] Administration Pantoprazole Sodium 40 mg 07/04/17 22:00 07/05/17 09:27 Protonix - PO 40 mg BID [facility] Administration Polyethylene Glycol 17 gm 07/04/17 22:00 07/05/17 09:26 Miralax (For Daily Use) - PO 17 gm BID [facility] Administration Polyethylene Glycol/Electrolytes 4,000 ml 07/07/17 09:00 Golytely Solution - PO 07/07/17 09:01 ONCE ONE CBC, BMP 07/05/17 06:30 07/05/17 06:30 ecg: afib rate 90s, nl qtc, no ischemic changes echo 06/2016: nl lv/rv, mild emmanuelle, mv ring, mod tr, mild phtn tele: afib, rate ok a/p: 77 f hx mv ring repair 2009, afib, dm, htn, ppm, hld, chf here s/p fall. fall: -mechanical, no indication of cardiac etiology anemia: -incidentally found here -GI planning scopes on saturday -no cardiac contraindication to foc/egd if needed -holding ac due to continued low hgb and some blood in bm this AM -stopped aspirin as no strong indication for it since she is on ac chronic diastolic chf: -stable, cont po lasix 40 bid mv repair: -normal fcn on recent echo afib: -cont bb, rate ok -ac on hold as above -was on coumadin at home htn: -cont toprol, norvasc, lisinopril ppm: -outpt f/u hld: -cont home statin
--- NOTE | 2017-07-05 16:56 | PN ---
GI Progress Note Subjective: GI NOte: Breathing easier after transfusion. NO bleeding noted. INR 1.53. Dr. Davalos's clearance appreciated. Scheduled for EGD and colonoscopy on Saturday. - Objective Vital Signs: Vital Signs Temperature 98 F 07/05/17 14:22 Pulse Rate 98 H 07/05/17 14:22 Respiratory Rate 20 07/05/17 14:22 Blood Pressure 129/53 07/05/17 14:22 O2 Sat by Pulse Oximetry (%) 94 L 07/05/17 08:00 Laboratory Tests 07/04/17 07/05/17 07/05/17 16:15 06:30 06:30 Hgb 7.8 L 8.8 L D Retic Count 2.64 H PT with INR INR 07/05/17 06:30 Hgb Retic Count PT with INR 17.30 H INR 1.53 H Constitutional: No Distress ...Auscultate: Yes: Normoactive Bowel Sounds ...Palpate: Yes: Soft, Other (nontender) Labs: CBC, BMP 07/05/17 06:30 07/05/17 06:30 INR, PTT INR 1.53 (0.82-1.09) H 07/05/17 06:30 Problem List - Problems (1) GIB (gastrointestinal bleeding) Assessment/Plan: Will prep for EGD and colonoscopy for Saturday. Dr Hernandez is covering. Code(s): K92.2 - GASTROINTESTINAL HEMORRHAGE, UNSPECIFIED Qualifiers: GI bleed type/associated pathology: unspecified gastrointestinal hemorrhage type Qualified Code(s): K92.2 - Gastrointestinal hemorrhage, unspecified (2) H/O mitral valve replacement Code(s): Z95.2 - PRESENCE OF PROSTHETIC HEART VALVE (3) Anemia Code(s): D64.9 - ANEMIA, UNSPECIFIED Qualifiers: Iron deficiency anemia type: chronic blood loss
[2017-07-05] MEDS: ATORVASTATIN CA 10 MG TABLET (FP) PO SCH (21:28)
[2017-07-06] MEDS: ACETAMINOPHEN 325 MG TABLET (FP) PO PRN ×2 (03:51→20:14)
[2017-07-06] MEDS: FUROSEMIDE 40 MG TABLET (FP) PO SCH ×2 (06:13→13:39)
[2017-07-06] MEDS: INSULIN SLIDING SCALE (NOVOLOG) 1 VIAL SQ SCH ×3 (06:15→21:32)
[2017-07-06] MEDS: INSULIN (LEVEMIR) 100 UNITS/ML UNITS SQ SCH (06:16)
[2017-07-06 07:52] LABS: INR 1.37 (0.82-1.09); PROTHROMBIN TIME (PATIENT) 15.5 SEC (9.7-13.0)
[2017-07-06 08:01] LABS: HEMATOCRIT 27.3 % (32.4-45.2); HEMOGLOBIN 8.8 GM/dL (10.7-15.3); MCH 23.9 pg (25.7-33.7); MCHC 32.2 g/dl (32.0-36.0); MEAN CELL VOLUME 74.3 fl (80-96); MEAN PLT VOLUME 8.9 fl (7.5-11.1); PLATELET COUNT 229 K/MM3 (134-434); RBC 3.68 M/mm3 (3.60-5.2); RDW 16.6 % (11.6-15.6); WHITE BLOOD COUNT 7.6 K/mm3 (4.0-10.0)
[2017-07-06 08:08] LABS: SERUM IRON SATURATION 6 % (15-55); TOTAL IRON BINDING CAPACITY 466 ug/dL (250-450); UIBC 437 ug/dL (118-369)
[2017-07-06] MEDS: LISINOPRIL 10 MG TABLET (FP) PO SCH (09:13)
[2017-07-06] MEDS: amLODIPine BESYLATE 10 MG TABLET (FP) PO SCH (09:13)
[2017-07-06] MEDS: PANTOPRAZOLE 40 MG TABLET (FP) PO SCH ×2 (09:13→21:29)
[2017-07-06] MEDS: POLYETHYLENE GLYCOL 3350 119 GM BTL PO SCH ×2 (09:14→21:30)
--- NOTE | 2017-07-06 10:39 | PN ---
Progress Note (short form) - Note Progress Note: s: no cp palps dizzy,sob o: Vital Signs Period Temp Pulse Resp BP Sys/[place] Pulse Ox Last 24 Hr 97.9 F-98.9 F 95-101 18-20 112-129/53-86 95 nad no jvd irreg, tachy, s1s2 no mrg ctab, nl eff no jaundice diaphoresis aaox3 no le edema bl, no c/c Current Medications Generic Name Dose Route Start Last Admin Trade Name Freq PRN Reason Stop Dose Admin Acetaminophen 650 mg 07/05/17 01:36 07/06/17 03:51 Tylenol - PO 650 mg Q6H PRN Administration PAIN LEVEL 5-10 Amlodipine Besylate 10 mg 07/04/17 10:00 07/06/17 09:13 Norvasc - PO 10 mg DAILY [facility] Administration Atorvastatin Calcium 10 mg 07/04/17 22:00 07/05/17 21:28 Lipitor - PO 10 mg HS [facility] Administration Bisacodyl 20 mg 07/07/17 18:00 Dulcolax - PO 07/07/17 18:01 ONCE ONE Furosemide 40 mg 07/04/17 06:00 07/06/17 06:13 Lasix - PO 40 mg BID@0600,1400 [facility] Administration Heparin Sodium (Porcine) 1,000 unit 07/03/17 22:31 07/04/17 10:00 Heparin - IVPUSH 1,000 unit PRN PRN Administration Heparin Heparin Sodium (Porcine) 5,000 unit 07/03/17 22:31 Heparin - IVPUSH 07/07/17 11:00 PRN PRN Heparin Insulin Aspart 1 vial 07/04/17 07:00 07/06/17 06:15 Novolog Vial Sliding Scale - SQ 8 units ACHS [facility] Administration Protocol Insulin Detemir 28 units 07/05/17 10:30 07/06/17 06:16 Levemir Vial SQ 28 units ACBK [facility] Administration Lisinopril 10 mg 07/04/17 10:00 07/06/17 09:13 Prinivil PO 10 mg DAILY [facility] Administration Metoprolol Succinate 50 mg 07/03/17 22:45 07/06/17 09:13 Toprol Xl - PO 50 mg BID [facility] Administration Pantoprazole Sodium 40 mg 07/04/17 22:00 07/06/17 09:13 Protonix - PO 40 mg BID [facility] Administration Polyethylene Glycol 17 gm 07/04/17 22:00 07/06/17 09:14 Miralax (For Daily Use) - PO 17 gm BID [facility] Administration Polyethylene Glycol/Electrolytes 4,000 ml 07/07/17 09:00 Golytely Solution - PO 07/07/17 09:01 ONCE ONE CBC, BMP 07/06/17 05:00 07/05/17 06:30 ecg: afib rate 90s, nl qtc, no ischemic changes echo 06/2016: nl lv/rv, mild emmanuelle, mv ring, mod tr, mild phtn tele: afib, rate ok a/p: 77 f hx mv ring repair 2009, afib, dm, htn, ppm, hld, chf here s/p fall. fall: -mechanical, no indication of cardiac etiology anemia: -incidentally found here -GI planning scopes on saturday -no cardiac contraindication to foc/egd if needed -holding ac due to continued low hgb -stopped aspirin as no strong indication for it since she is on ac chronic diastolic chf: -stable, cont po lasix 40 bid mv repair: -normal fcn on recent echo afib: -cont bb, rate ok -ac on hold as above -was on coumadin at home htn: -cont toprol, norvasc, lisinopril ppm: -outpt f/u hld: -cont home statin
--- NOTE | 2017-07-06 12:06 | PN ---
Progress Note, Physician Chief Complaint: in bed NAD no CP/SOB no abdominal pain no bleed at bedside consults tests meds and plan reviewed and d/w pt and in detail - Current Medication List Current Medications: Active Medications Acetaminophen (Tylenol -) 650 mg PO Q6H PRN PRN Reason: PAIN LEVEL 5-10 Last Admin: 07/06/17 03:51 Dose: 650 mg Amlodipine Besylate (Norvasc -) 10 mg PO DAILY [facility] Last Admin: 07/06/17 09:13 Dose: 10 mg Atorvastatin Calcium (Lipitor -) 10 mg PO HS [facility] Last Admin: 07/05/17 21:28 Dose: 10 mg Bisacodyl (Dulcolax -) 20 mg PO ONCE ONE Stop: 07/07/17 18:01 Furosemide (Lasix -) 40 mg PO BID@0600,1400 [facility] Last Admin: 07/06/17 06:13 Dose: 40 mg Heparin Sodium (Porcine) (Heparin -) 1,000 unit IVPUSH PRN PRN PRN Reason: Heparin Last Admin: 07/04/17 10:00 Dose: 1,000 unit Heparin Sodium (Porcine) (Heparin -) 5,000 unit IVPUSH PRN PRN PRN Reason: Heparin Stop: 07/07/17 11:00 Insulin Aspart (Novolog Vial Sliding Scale -) 1 vial SQ ACHS [facility] PRN Reason: Protocol Last Admin: 07/06/17 06:15 Dose: 8 units Insulin Detemir (Levemir Vial) 28 units SQ ACBK [facility] Last Admin: 07/06/17 06:16 Dose: 28 units Lisinopril (Prinivil) 10 mg PO DAILY [facility] Last Admin: 07/06/17 09:13 Dose: 10 mg Metoprolol Succinate (Toprol Xl -) 50 mg PO BID [facility] Last Admin: 07/06/17 09:13 Dose: 50 mg Pantoprazole Sodium (Protonix -) 40 mg PO BID [facility] Last Admin: 07/06/17 09:13 Dose: 40 mg Polyethylene Glycol (Miralax (For Daily Use) -) 17 gm PO BID [facility] Last Admin: 07/06/17 09:14 Dose: 17 gm Polyethylene Glycol/Electrolytes (Golytely Solution -) 4,000 ml PO ONCE ONE Stop: 07/07/17 09:01 - Objective Vital Signs: Vital Signs Temperature 98.5 F 07/06/17 06:00 Pulse Rate 100 H 07/06/17 06:00 Respiratory Rate 18 07/06/17 06:00 Blood Pressure 121/64 07/06/17 06:00 O2 Sat by Pulse Oximetry (%) 95 07/05/17 21:00 Constitutional: Yes: No Distress, Calm Eyes: Yes: Conjunctiva Clear HENT: Yes: Atraumatic Neck: Yes: Supple Cardiovascular: No: Regular Rate and Rhythm Respiratory: Yes: CTA Bilaterally Gastrointestinal: Yes: Soft. No: Distention, Tenderness Genitourinary: No: CVA Tenderness - Left, CVA Tenderness - Right Musculoskeletal: No: Joint Stiffness, Joint Swelling Extremities: No: Cold, Cool, Cyanosis Edema: No Integumentary: No: Rash, Venous Stasis Changes Neurological: Yes: WNL, Alert, Oriented ...Motor Strength: WNL Psychiatric: Yes: WNL, Alert, Oriented. No: Agitated, Suicidal Ideation Labs: CBC, BMP 07/06/17 05:00 07/05/17 06:30 INR, PTT INR 1.37 (0.82-1.09) H 07/06/17 05:00 - ....Imaging Other: Report Reviewed Assessment/Plan A/P 77 yoF hx mv ring repair 2009, afib, dm, htn, ppm, hld, chf here s/p fall. anemia: -incidentally found here -GI planning scopes on saturday -holding ac due to continued low hgb -stopped aspirin as no strong indication for it since she is on ac chronic diastolic chf: -stable, cont po lasix 40 bid afib: -cont bb, rate ok -ac on hold as above -was on coumadin at home, held b/o anemia r/o GIB htn: -cont toprol, norvasc, lisinopril ppm: -outpt f/u hld: -cont home statin d/w pt and staff, d/w pt's at bedside, will d/w pt's PCP dr Nikhil Maher pt advised to f/u closely with PCP GI and cardio after DC from hospital; she and her said she will; she also said she has COPD and a stable lung nodule, saw few times pulm at [facility]; she has home O2 prn use at night; she said she had few chest CTs in the past with her pulm dr and told stable; advised f/u with pulm and PCP for lung nodule (pt aware can be cancer) after DC from H she said she will.
[2017-07-06] MEDS: ATORVASTATIN CA 10 MG TABLET (FP) PO SCH (21:29)
[2017-07-07 00:10] LABS: TRANSGLUTAMINASE IGA < 2 U/mL (0-3); TRANSGLUTAMINASE IGG < 2 U/mL (0-5)
[2017-07-07] MEDS: FUROSEMIDE 40 MG TABLET (FP) PO SCH ×2 (06:06→14:12)
[2017-07-07] MEDS: INSULIN (LEVEMIR) 100 UNITS/ML UNITS SQ SCH (06:08)
[2017-07-07] MEDS: INSULIN SLIDING SCALE (NOVOLOG) 1 VIAL SQ SCH ×4 (06:09→21:28)
--- NOTE | 2017-07-07 06:59 | PN ---
Progress Note, Physician Chief Complaint: in bed no new c/o stable; awaiting EGD per GI, cleared by cardiology off anticoagulation, d/w pt and risks of CVA/NM/clotting with holding the AC and risks of bleeding with continuing the AC; at this point risks of bleeding seem to be higher that risks of clotting but d/w pt and about all the above, also including disability and - they are aware and agreed with plan - Current Medication List Current Medications: Active Medications Acetaminophen (Tylenol -) 650 mg PO Q6H PRN PRN Reason: PAIN LEVEL 5-10 Last Admin: 07/06/17 20:14 Dose: 650 mg Amlodipine Besylate (Norvasc -) 10 mg PO DAILY [facility] Last Admin: 07/06/17 09:13 Dose: 10 mg Atorvastatin Calcium (Lipitor -) 10 mg PO HS [facility] Last Admin: 07/06/17 21:29 Dose: 10 mg Bisacodyl (Dulcolax -) 20 mg PO ONCE ONE Stop: 07/07/17 18:01 Furosemide (Lasix -) 40 mg PO BID@0600,1400 [facility] Last Admin: 07/07/17 06:06 Dose: 40 mg Heparin Sodium (Porcine) (Heparin -) 1,000 unit IVPUSH PRN PRN PRN Reason: Heparin Last Admin: 07/04/17 10:00 Dose: 1,000 unit Heparin Sodium (Porcine) (Heparin -) 5,000 unit IVPUSH PRN PRN PRN Reason: Heparin Stop: 07/07/17 11:00 Insulin Aspart (Novolog Vial Sliding Scale -) 1 vial SQ [facility] PRN Reason: Protocol Last Admin: 07/07/17 06:09 Dose: 6 units Insulin Detemir (Levemir Vial) 28 units SQ ACBK [facility] Last Admin: 07/07/17 06:08 Dose: 28 units Lisinopril (Prinivil) 10 mg PO DAILY [facility] Last Admin: 07/06/17 09:13 Dose: 10 mg Metoprolol Succinate (Toprol Xl -) 50 mg PO BID [facility] Last Admin: 07/06/17 21:29 Dose: 50 mg Pantoprazole Sodium (Protonix -) 40 mg PO BID [facility] Last Admin: 07/06/17 21:29 Dose: 40 mg Polyethylene Glycol (Miralax (For Daily Use) -) 17 gm PO BID [facility] Last Admin: 07/06/17 21:30 Dose: Not Given Polyethylene Glycol/Electrolytes (Golytely Solution -) 4,000 ml PO ONCE ONE Stop: 07/07/17 09:01 - Objective Vital Signs: Vital Signs Temperature 98 F 07/07/17 06:00 Pulse Rate 96 H 07/07/17 06:00 Respiratory Rate 18 07/07/17 06:00 Blood Pressure 97/59 07/07/17 06:00 O2 Sat by Pulse Oximetry (%) 97 07/06/17 21:00 Constitutional: Yes: No Distress, Calm Eyes: Yes: Conjunctiva Clear HENT: Yes: Atraumatic Neck: Yes: Supple Cardiovascular: No: Regular Rate and Rhythm Respiratory: Yes: CTA Bilaterally Gastrointestinal: Yes: Soft. No: Distention, Tenderness Genitourinary: No: CVA Tenderness - Left, CVA Tenderness - Right Musculoskeletal: No: Joint Stiffness, Joint Swelling Extremities: No: Cold, Cool, Cyanosis Edema: No Integumentary: No: Rash, Venous Stasis Changes Neurological: Yes: WNL, Alert, Oriented ...Motor Strength: WNL Psychiatric: Yes: WNL, Alert, Oriented. No: Agitated, Suicidal Ideation Labs: INR, PTT INR 1.37 (0.82-1.09) H 07/06/17 05:00 - ....Imaging Other: Report Reviewed Assessment/Plan A/P 77 yoF hx mv ring repair 2009, afib, dm, htn, ppm, hld, chf here s/p fall. anemia: -incidentally found here -GI planning scopes on saturday -holding ac due to continued low hgb -stopped aspirin as no strong indication for it since she is on ac chronic diastolic chf: -stable, cont po lasix 40 bid afib: -cont bb, rate ok -ac on hold as above -was on coumadin at home, held b/o anemia r/o GIB, pt and aware of possible risks and consequences see above htn: -cont toprol, norvasc, lisinopril ppm: -outpt f/u hld: -cont home statin d/w pt and staff, d/w pt's at bedside, will d/w pt's PCP dr Nikhil Maher pt advised to f/u closely with PCP GI and cardio after DC from hospital;h/o COPD and a stable lung nodule, saw few times manuela waller at [facility]; she has home O2 prn use at night; she said she had few chest CTs in the past with her pulm and told stable; again d/w pt and advised f/u with pulm and PCP for lung nodule (pt aware can be cancer) after DC from she said she will.
[2017-07-07 07:03] LABS: ALBUMIN 2.9 g/dl (3.4-5.0); ANION GAP 6 (8-16); BLOOD UREA NITROGEN 23 mg/dL (7-18); CALCIUM 8.1 mg/dL (8.5-10.1); CHLORIDE 107 mmol/L (98-107); CO2 28 mmol/L (21-32); GLUCOSE,RANDOM 254 mg/dL (74-106); POTASSIUM 4.5 mmol/L (3.5-5.1); SGOT/AST 32 U/L (15-37); SGPT/ALT 31 U/L (12-78); SODIUM 141 mmol/L (136-145)
[2017-07-07 07:04] LABS: INR 1.15 (0.82-1.09)
[2017-07-07 07:05] LABS: ALK PHOS 126 U/L (45-117); BASO % 0.5 % (0-2.0); BILIRUBIN,TOTAL 0.5 mg/dL (0.2-1.0); EOS % 2.3 % (0-4.5); HEMATOCRIT 26.1 % (32.4-45.2); HEMOGLOBIN 8.4 GM/dL (10.7-15.3); LYMPH % 21.1 % (8-40); MCH 23.9 pg (25.7-33.7); MCHC 32.1 g/dl (32.0-36.0); MEAN CELL VOLUME 74.6 fl (80-96); MONO % 6.8 % (3.8-10.2); NEUT % 69.3 % (42.8-82.8); PLATELET COUNT 212 K/MM3 (134-434); RDW 16.8 % (11.6-15.6); WHITE BLOOD COUNT 8.3 K/mm3 (4.0-10.0)
[2017-07-07] MEDS ORDERED: PEG 3350/NA SULF BICARB CL/KCL 4000 ML SOLN.RECON PO ONE (09:00)
[2017-07-07] MEDS ORDERED: PT OWN MED DRAWER 7, Y5N ONE (09:14)
[2017-07-07] MEDS: PANTOPRAZOLE 40 MG TABLET (FP) PO SCH ×2 (09:47→21:27)
[2017-07-07] MEDS: LISINOPRIL 10 MG TABLET (FP) PO SCH (09:47)
[2017-07-07] MEDS: amLODIPine BESYLATE 10 MG TABLET (FP) PO SCH (09:47)
[2017-07-07] MEDS: POLYETHYLENE GLYCOL 3350 119 GM BTL PO SCH ×2 (09:49→21:29)
--- NOTE | 2017-07-07 10:47 | PN ---
Progress Note (short form) - Note Progress Note: s: no cp palps dizzy,sob o: Vital Signs Period Temp Pulse Resp BP Sys/[place] Pulse Ox Last 24 Hr 98 F-99.1 F 95-100 16-19 97-118/59-88 97 nad no jvd irreg, s1s2 no mrg ctab, nl eff no jaundice diaphoresis aaox3 no le edema bl, no c/c Current Medications Generic Name Dose Route Start Last Admin Trade Name Freq PRN Reason Stop Dose Admin Acetaminophen 650 mg 07/05/17 01:36 07/06/17 20:14 Tylenol - PO 650 mg Q6H PRN Administration PAIN LEVEL 5-10 Amlodipine Besylate 10 mg 07/04/17 10:00 07/07/17 09:47 Norvasc - PO 10 mg DAILY [facility] Administration Atorvastatin Calcium 10 mg 07/04/17 22:00 07/06/17 21:29 Lipitor - PO 10 mg HS [facility] Administration Bisacodyl 20 mg 07/07/17 18:00 Dulcolax - PO 07/07/17 18:01 ONCE ONE Furosemide 40 mg 07/04/17 06:00 07/07/17 06:06 Lasix - PO 40 mg BID@0600,1400 [facility] Administration Heparin Sodium (Porcine) 1,000 unit 07/03/17 22:31 07/04/17 10:00 Heparin - IVPUSH 1,000 unit PRN PRN Administration Heparin Heparin Sodium (Porcine) 5,000 unit 07/03/17 22:31 Heparin - IVPUSH 07/07/17 11:00 PRN PRN Heparin Insulin Aspart 1 vial 07/04/17 07:00 07/07/17 06:09 Novolog Vial Sliding Scale - SQ 6 units ACHS [facility] Administration Protocol Insulin Detemir 28 units 07/05/17 10:30 07/07/17 06:08 Levemir Vial SQ 28 units ACBK [facility] Administration Lisinopril 10 mg 07/04/17 10:00 07/07/17 09:47 Prinivil PO 10 mg DAILY [facility] Administration Metoprolol Succinate 50 mg 07/03/17 22:45 07/07/17 09:47 Toprol Xl - PO 50 mg BID [facility] Administration Pantoprazole Sodium 40 mg 07/04/17 22:00 07/07/17 09:47 Protonix - PO 40 mg BID [facility] Administration Polyethylene Glycol 17 gm 07/04/17 22:00 07/07/17 09:49 Miralax (For Daily Use) - PO 17 gm BID [facility] Administration CBC, BMP 07/07/17 05:00 07/07/17 05:00 ecg: afib rate 90s, nl qtc, no ischemic changes echo 06/2016: nl lv/rv, mild emmanuelle, mv ring, mod tr, mild phtn tele: afib, rate ok a/p: 77 f hx mv ring repair 2009, afib, dm, htn, ppm, hld, chf here s/p fall. fall: -mechanical, no indication of cardiac etiology anemia: -incidentally found here -GI planning scopes on saturday -no cardiac contraindication to foc/egd if needed -holding ac due to continued low hgb -stopped aspirin as no strong indication for it since she is on ac chronic diastolic chf: -stable, cont po lasix 40 bid mv repair: -normal fcn on recent echo afib: -cont bb, rate ok -ac on hold as above -was on coumadin at home htn: -cont toprol, norvasc, lisinopril ppm: -outpt f/u hld: -cont home statin
[2017-07-07] MEDS ORDERED: BISACODYL 5 MG TABLET.DR (FP) PO ONE (18:00)
[2017-07-07] MEDS: ACETAMINOPHEN 325 MG TABLET (FP) PO PRN (21:27)
[2017-07-07] MEDS: ATORVASTATIN CA 10 MG TABLET (FP) PO SCH (21:27)
[2017-07-07] MEDS ORDERED: METOPROLOL TARTRATE 5 MG/5 ML VIAL IVPUSH PRN (22:46)
[2017-07-07] MEDS ORDERED: METOPROLOL TARTRATE 5 MG/5 ML VIAL IVPUSH ONE (23:00)
[2017-07-08] MEDS: INSULIN SLIDING SCALE (NOVOLOG) 1 VIAL SQ SCH ×4 (06:23→22:15)
[2017-07-08] MEDS: INSULIN (LEVEMIR) 100 UNITS/ML UNITS SQ SCH (06:23)
[2017-07-08] MEDS: FUROSEMIDE 40 MG TABLET (FP) PO SCH ×2 (06:24→13:17)
[2017-07-08 07:14] LABS: BASO % 0.5 % (0-2.0); EOS % 1.6 % (0-4.5); HEMATOCRIT 27.5 % (32.4-45.2); HEMOGLOBIN 8.7 GM/dL (10.7-15.3); MCH 23.7 pg (25.7-33.7); MCHC 31.7 g/dl (32.0-36.0); MEAN CELL VOLUME 74.7 fl (80-96); MEAN PLT VOLUME 8.9 fl (7.5-11.1); NEUT % 67.9 % (42.8-82.8); PLATELET COUNT 230 K/MM3 (134-434); RBC 3.68 M/mm3 (3.60-5.2); RDW 17.4 % (11.6-15.6); WHITE BLOOD COUNT 8.1 K/mm3 (4.0-10.0)
[2017-07-08 07:15] LABS: INR 1.14 (0.82-1.09); PROTHROMBIN TIME (PATIENT) 12.9 SEC (9.7-13.0)
[2017-07-08 07:18] LABS: ANION GAP 5 (8-16); BLOOD UREA NITROGEN 14 mg/dL (7-18); CALCIUM 8.3 mg/dL (8.5-10.1); CHLORIDE 105 mmol/L (98-107); CO2 32 mmol/L (21-32); CREATININE 0.8 mg/dL (0.55-1.02); GLUCOSE,RANDOM 177 mg/dL (74-106); POTASSIUM 3.9 mmol/L (3.5-5.1); SODIUM 142 mmol/L (136-145)
--- NOTE | 2017-07-08 09:49 | PN ---
Progress Note, Physician History of Present Illness: Pt w/o SOB, CP, palpitations, abd apin. Pt still noticed blood on toilet paper. Pt is [facility], waiting to go for EGD/ colonoscopy. - Current Medication List Current Medications: Active Medications Acetaminophen (Tylenol -) 650 mg PO Q6H PRN PRN Reason: PAIN LEVEL 5-10 Last Admin: 07/07/17 21:27 Dose: 650 mg Amlodipine Besylate (Norvasc -) 10 mg PO DAILY [facility] Last Admin: 07/07/17 09:47 Dose: 10 mg Atorvastatin Calcium (Lipitor -) 10 mg PO HS [facility] Last Admin: 07/07/17 21:27 Dose: 10 mg Furosemide (Lasix -) 40 mg PO BID@0600,1400 [facility] Last Admin: 07/08/17 06:24 Dose: Not Given Heparin Sodium (Porcine) (Heparin -) 1,000 unit IVPUSH PRN PRN PRN Reason: Heparin Last Admin: 07/04/17 10:00 Dose: 1,000 unit Insulin Aspart (Novolog Vial Sliding Scale -) 1 vial SQ ACHS [facility] PRN Reason: Protocol Last Admin: 07/08/17 06:23 Dose: Not Given Insulin Detemir (Levemir Vial) 28 units SQ ACBK [facility] Last Admin: 07/08/17 06:23 Dose: Not Given Lisinopril (Prinivil) 10 mg PO DAILY [facility] Last Admin: 07/07/17 09:47 Dose: 10 mg Metoprolol Succinate (Toprol Xl -) 50 mg PO BID [facility] Last Admin: 07/07/17 21:27 Dose: 50 mg Metoprolol Tartrate (Lopressor Injection -) 5 mg IVPUSH Q4H PRN PRN Reason: HR > 130 Pantoprazole Sodium (Protonix -) 40 mg PO BID [facility] Last Admin: 07/07/17 21:27 Dose: 40 mg Polyethylene Glycol (Miralax (For Daily Use) -) 17 gm PO BID [facility] Last Admin: 07/07/17 21:29 Dose: Not Given - Objective Vital Signs: Vital Signs Temperature 98 F 07/08/17 06:00 Pulse Rate 100 H 07/08/17 06:00 Respiratory Rate 18 07/08/17 06:00 Blood Pressure 114/74 07/08/17 06:00 O2 Sat by Pulse Oximetry (%) 96 07/07/17 21:00 Constitutional: Yes: No Distress, Calm Cardiovascular: Yes: Regular Rate and Rhythm, S1, S2 Respiratory: Yes: Regular, Other (coarse BS, minimal scaterred rhonchi) Gastrointestinal: Yes: Normal Bowel Sounds, Soft. No: Tenderness Edema: No Neurological: Yes: Alert, Oriented Labs: CBC, BMP 07/08/17 06:30 07/08/17 06:30 INR, PTT INR 1.14 (0.82-1.09) 07/08/17 06:30 Problem List - Problems (1) GIB (gastrointestinal bleeding) Code(s): K92.2 - GASTROINTESTINAL HEMORRHAGE, UNSPECIFIED Qualifiers: GI bleed type/associated pathology: unspecified gastrointestinal hemorrhage type Qualified Code(s): K92.2 - Gastrointestinal hemorrhage, unspecified (2) Anemia Code(s): D64.9 - ANEMIA, UNSPECIFIED Qualifiers: Iron deficiency anemia type: chronic blood loss (3) CAD (coronary artery disease) Code(s): I25.10 - ATHSCL HEART DISEASE OF [place] CORONARY ARTERY W/O ANG PCTRS (4) Abnormal stress test Code(s): R94.39 - ABNORMAL RESULT OF OTHER CARDIOVASCULAR FUNCTION STUDY (5) Guaiac + stool Code(s): R19.5 - OTHER FECAL ABNORMALITIES (6) COPD (chronic obstructive pulmonary disease) Code(s): J44.9 - CHRONIC OBSTRUCTIVE PULMONARY DISEASE, UNSPECIFIED (7) Diabetes mellitus Code(s): E11.9 - TYPE 2 DIABETES MELLITUS WITHOUT COMPLICATIONS (8) Fall Code(s): W19.XXXA - UNSPECIFIED FALL, INITIAL ENCOUNTER (9) Diabetes Code(s): E11.9 - TYPE 2 DIABETES MELLITUS WITHOUT COMPLICATIONS Assessment/Plan Admitted to monitor bed. To continue to monitor H/H. PPI GI and Cardio consult appreciated AC on hold. To f/u EGD/colonoscopy report. AM labs.
[2017-07-08] MEDS ORDERED: MIDAZOLAM HCL 2 MG/2 ML SINGLE DOSE VIAL ONE (10:23)
[2017-07-08] MEDS ORDERED: PROPOFOL 20 ML ONE (10:23)
[2017-07-08] MEDS ORDERED: INSULIN (NOVOLOG) ASPART 100 UNITS/ML 10ML VIAL ONE ×2 (13:04→18:37)
--- NOTE | 2017-07-08 13:10 | PN ---
Progress Note (short form) - Note Progress Note: GI Procedures Note: Please see scanned EGD and colonoscopy reports. Bleeding source appears to be vascular ectasias, likely in the small bowel as large cecal nonbleeding angiodysplasias were seen. 4 colon polyps were removed. Should have capsule endoscopy as outpatient. Please refrain from anticoagulation for 5 days. Will need iron and Vitamin C to keep up with GI blood loss while on coumadin. Problem List - Problems (1) GIB (gastrointestinal bleeding) Code(s): K92.2 - GASTROINTESTINAL HEMORRHAGE, UNSPECIFIED Qualifiers: GI bleed type/associated pathology: unspecified gastrointestinal hemorrhage type Qualified Code(s): K92.2 - Gastrointestinal hemorrhage, unspecified (2) H/O mitral valve replacement Code(s): Z95.2 - PRESENCE OF PROSTHETIC HEART VALVE (3) Anemia Code(s): D64.9 - ANEMIA, UNSPECIFIED Qualifiers: Iron deficiency anemia type: chronic blood loss
[2017-07-08] MEDS: POLYETHYLENE GLYCOL 3350 119 GM BTL PO SCH ×2 (13:16→22:16)
[2017-07-08] MEDS: amLODIPine BESYLATE 10 MG TABLET (FP) PO SCH (13:16)
[2017-07-08] MEDS: PANTOPRAZOLE 40 MG TABLET (FP) PO SCH ×2 (13:17→22:03)
[2017-07-08] MEDS: LISINOPRIL 10 MG TABLET (FP) PO SCH (13:17)
--- NOTE | 2017-07-08 16:36 | PN ---
Progress Note (short form) - Note Progress Note: CC: s/p fall s: no cp palps, sob. . mild dizziness on sitting up. Had endoscopy today. o: Current Medications Acetaminophen (Tylenol -) 650 mg PO Q6H PRN PRN Reason: PAIN LEVEL 5-10 Last Admin: 07/07/17 21:27 Dose: 650 mg Amlodipine Besylate (Norvasc -) 10 mg PO DAILY [facility] Last Admin: 07/08/17 13:16 Dose: 10 mg Atorvastatin Calcium (Lipitor -) 10 mg PO HS [facility] Last Admin: 07/07/17 21:27 Dose: 10 mg Furosemide (Lasix -) 40 mg PO BID@0600,1400 [facility] Last Admin: 07/08/17 13:17 Dose: 40 mg Heparin Sodium (Porcine) (Heparin -) 1,000 unit IVPUSH PRN PRN PRN Reason: Heparin Last Admin: 07/04/17 10:00 Dose: 1,000 unit Insulin Aspart (Novolog Vial Sliding Scale -) 1 vial SQ ACHS [facility] PRN Reason: Protocol Last Admin: 07/08/17 13:16 Dose: 4 units Insulin Detemir (Levemir Vial) 28 units SQ ACBK [facility] Last Admin: 07/08/17 06:23 Dose: Not Given Lisinopril (Prinivil) 10 mg PO DAILY [facility] Last Admin: 07/08/17 13:17 Dose: 10 mg Metoprolol Succinate (Toprol Xl -) 50 mg PO BID [facility] Last Admin: 07/08/17 13:17 Dose: 50 mg Metoprolol Tartrate (Lopressor Injection -) 5 mg IVPUSH Q4H PRN PRN Reason: HR > 130 Pantoprazole Sodium (Protonix -) 40 mg PO BID [facility] Last Admin: 07/08/17 13:17 Dose: 40 mg Polyethylene Glycol (Miralax (For Daily Use) -) 17 gm PO BID [facility] Last Admin: 07/08/17 13:16 Dose: Not Given Vital Signs - 24 hr 07/07/17 07/07/17 07/07/17 18:00 21:00 22:17 Temperature 97.9 F 98.5 F Pulse Rate 98 H 98 H Respiratory 19 18 Rate Blood Pressure 152/64 129/73 O2 Sat by Pulse 96 Oximetry (%) 07/07/17 07/08/17 07/08/17 22:57 02:00 06:00 Temperature 97.4 F L 98 F Pulse Rate 135 H 91 H 100 H Respiratory 18 18 Rate Blood Pressure 133/70 120/75 114/74 O2 Sat by Pulse Oximetry (%) 07/08/17 07/08/17 07/08/17 09:00 10:00 11:08 Temperature 97.8 F 98 F Pulse Rate 100 H 89 Respiratory 18 18 13 Rate Blood Pressure 115/68 92/51 O2 Sat by Pulse 99 97 Oximetry (%) 07/08/17 07/08/17 07/08/17 11:22 11:38 11:49 Temperature Pulse Rate 86 92 H 86 Respiratory 18 16 18 Rate Blood Pressure 99/52 122/65 118/56 O2 Sat by Pulse 98 100 99 Oximetry (%) 07/08/17 15:34 Temperature 98.1 F Pulse Rate 116 H Respiratory Rate Blood Pressure 117/75 O2 Sat by Pulse Oximetry (%) Intake & Output 07/06/17 07/07/17 07/08/17 07/09/17 07:59 07:59 07:59 07:59 Intake Total 790 1270 1160 200 Balance 790 1270 1160 200 Weight 184 lb 180 lb 6.4 oz nad calm no jvd irreg, s1s2 no mrg ctab, nl eff + bs soft nt nd no jaundice diaphoresis aaox3 no le edema bl, no c/c CBC, BMP 07/08/17 06:30 07/08/17 06:30 Laboratory Tests 07/07/17 07/08/17 05:00 06:30 Hgb 8.4 L INR 1.14 ecg: afib rate 90s, nl qtc, no ischemic changes echo 06/2016: nl lv/rv, mild emmanuelle, mv ring, mod tr, mild phtn endoscopy 07/2017: Bleeding source appears to be vascular ectasias, likely in the small bowel as large cecal nonbleeding angiodysplasias were seen. 4 colon polyps were removed. Should have capsule endoscopy as outpatient. tele: afib, rate uptrend into 110's. a/p: 77 f hx mv ring repair 2009, afib, dm, htn, ppm, hld, chf here s/p fall. fall: -mechanical, no indication of cardiac etiology anemia: -incidentally found here -no cardiac contraindication to foc/egd if needed --> s/p EGD 07/08 -holding ac due to continued low hgb -stopped aspirin as no strong indication for it since she is on ac - Per GI recs: Refrain from anticoagulation for 5 days. chronic diastolic chf: -stable, cont po lasix 40 bid mv repair: -normal fcn on recent echo afib: -cont bb, rate ok -07/08: rate slightly elevated s/p bowel prep and endoscopy, con't to monitor. If still elevated tomorrow, can consider need to uptitrate regimen. -ac on hold as above, will need to hold for additional 5 days after endoscopy -was on coumadin at home htn: -cont toprol, norvasc, lisinopril -07/08 running on low end, s/p anesthesia, con't to monitor. ppm: -ongoing outpt f/u hld: -cont home statin
[2017-07-08] MEDS: ATORVASTATIN CA 10 MG TABLET (FP) PO SCH (22:03)
[2017-07-08] MEDS: ACETAMINOPHEN 325 MG TABLET (FP) PO PRN (22:22)
[2017-07-09] MEDS: FUROSEMIDE 40 MG TABLET (FP) PO SCH ×2 (06:10→13:21)
[2017-07-09] MEDS ORDERED: INSULIN (NOVOLOG) ASPART 100 UNITS/ML 10ML VIAL ONE ×3 (06:32→22:16)
[2017-07-09] MEDS: INSULIN (LEVEMIR) 100 UNITS/ML UNITS SQ SCH (06:35)
[2017-07-09] MEDS: INSULIN SLIDING SCALE (NOVOLOG) 1 VIAL SQ SCH ×5 (06:36→22:45)
[2017-07-09 06:55] LABS: HEMATOCRIT 26.1 % (32.4-45.2); HEMOGLOBIN 8.3 GM/dL (10.7-15.3); MCH 23.8 pg (25.7-33.7); MCHC 31.8 g/dl (32.0-36.0); MEAN CELL VOLUME 74.7 fl (80-96); MEAN PLT VOLUME 8.7 fl (7.5-11.1); PLATELET COUNT 200 K/MM3 (134-434); RDW 16.9 % (11.6-15.6); WHITE BLOOD COUNT 10.4 K/mm3 (4.0-10.0)
[2017-07-09] MEDS: amLODIPine BESYLATE 10 MG TABLET (FP) PO SCH (09:57)
[2017-07-09] MEDS: LISINOPRIL 10 MG TABLET (FP) PO SCH (09:57)
[2017-07-09] MEDS: PANTOPRAZOLE 40 MG TABLET (FP) PO SCH ×2 (09:57→21:19)
--- NOTE | 2017-07-09 09:57 | PN ---
Progress Note, Physician History of Present Illness: Pt w/o SOB, CP, palpitations, abd pain. - Current Medication List Current Medications: Active Medications Acetaminophen (Tylenol -) 650 mg PO Q6H PRN PRN Reason: PAIN LEVEL 5-10 Last Admin: 07/08/17 22:22 Dose: 650 mg Amlodipine Besylate (Norvasc -) 10 mg PO DAILY [facility] Last Admin: 07/08/17 13:16 Dose: 10 mg Atorvastatin Calcium (Lipitor -) 10 mg PO HS [facility] Last Admin: 07/08/17 22:03 Dose: 10 mg Furosemide (Lasix -) 40 mg PO BID@0600,1400 [facility] Last Admin: 07/09/17 06:10 Dose: 40 mg Heparin Sodium (Porcine) (Heparin -) 1,000 unit IVPUSH PRN PRN PRN Reason: Heparin Last Admin: 07/04/17 10:00 Dose: 1,000 unit Insulin Aspart (Novolog Vial Sliding Scale -) 1 vial SQ ACHS [facility] PRN Reason: Protocol Last Admin: 07/09/17 06:36 Dose: 6 units Insulin Detemir (Levemir Vial) 28 units SQ ACBK [facility] Last Admin: 07/09/17 06:35 Dose: 28 units Lisinopril (Prinivil) 10 mg PO DAILY [facility] Last Admin: 07/08/17 13:17 Dose: 10 mg Metoprolol Succinate (Toprol Xl -) 50 mg PO BID [facility] Last Admin: 07/08/17 22:03 Dose: 50 mg Metoprolol Tartrate (Lopressor Injection -) 5 mg IVPUSH Q4H PRN PRN Reason: HR > 130 Pantoprazole Sodium (Protonix -) 40 mg PO BID [facility] Last Admin: 07/08/17 22:03 Dose: 40 mg Polyethylene Glycol (Miralax (For Daily Use) -) 17 gm PO BID [facility] Last Admin: 07/08/17 22:16 Dose: Not Given - Objective Vital Signs: Vital Signs Temperature 98.3 F 07/09/17 05:34 Pulse Rate 101 H 07/09/17 05:34 Respiratory Rate 20 07/09/17 05:34 Blood Pressure 141/59 07/09/17 05:34 O2 Sat by Pulse Oximetry (%) 94 L 07/08/17 21:00 Constitutional: Yes: No Distress, Calm Cardiovascular: Yes: Regular Rate and Rhythm, S1, S2 Respiratory: Yes: Regular, CTA Bilaterally Gastrointestinal: Yes: Normal Bowel Sounds, Soft. No: Tenderness Edema: No Neurological: Yes: Alert, Oriented Labs: CBC, BMP 07/09/17 05:53 07/08/17 06:30 INR, PTT INR 1.14 (0.82-1.09) 07/08/17 06:30 Problem List - Problems (1) GIB (gastrointestinal bleeding) Code(s): K92.2 - GASTROINTESTINAL HEMORRHAGE, UNSPECIFIED Qualifiers: GI bleed type/associated pathology: unspecified gastrointestinal hemorrhage type Qualified Code(s): K92.2 - Gastrointestinal hemorrhage, unspecified (2) Anemia Code(s): D64.9 - ANEMIA, UNSPECIFIED Qualifiers: Iron deficiency anemia type: chronic blood loss (3) CAD (coronary artery disease) Code(s): I25.10 - ATHSCL HEART DISEASE OF [place] CORONARY ARTERY W/O ANG PCTRS (4) Abnormal stress test Code(s): R94.39 - ABNORMAL RESULT OF OTHER CARDIOVASCULAR FUNCTION STUDY (5) Guaiac + stool Code(s): R19.5 - OTHER FECAL ABNORMALITIES (6) COPD (chronic obstructive pulmonary disease) Code(s): J44.9 - CHRONIC OBSTRUCTIVE PULMONARY DISEASE, UNSPECIFIED (7) Diabetes mellitus Code(s): E11.9 - TYPE 2 DIABETES MELLITUS WITHOUT COMPLICATIONS (8) Fall Code(s): W19.XXXA - UNSPECIFIED FALL, INITIAL ENCOUNTER (9) Diabetes Code(s): E11.9 - TYPE 2 DIABETES MELLITUS WITHOUT COMPLICATIONS Assessment/Plan Admitted to monitor bed. s/p EGD and colonoscopy (4 polyps were removed) yesterday. Slight drop in H/H- to f/u with GI To continue to monitor H/H. PPI GI and Cardio consult appreciated AC on hold for 5 days, per GI recommendation. AM labs.
[2017-07-09] MEDS: POLYETHYLENE GLYCOL 3350 119 GM BTL PO SCH ×2 (10:06→21:20)
--- NOTE | 2017-07-09 12:03 | PN ---
Progress Note (short form) - Note Progress Note: CC: s/p fall s: Feels well, no cp palps, sob, dizziness. o: Current Medications Acetaminophen (Tylenol -) 650 mg PO Q6H PRN PRN Reason: PAIN LEVEL 5-10 Last Admin: 07/08/17 22:22 Dose: 650 mg Amlodipine Besylate (Norvasc -) 10 mg PO DAILY [facility] Last Admin: 07/09/17 09:57 Dose: 10 mg Atorvastatin Calcium (Lipitor -) 10 mg PO HS [facility] Last Admin: 07/08/17 22:03 Dose: 10 mg Furosemide (Lasix -) 40 mg PO BID@0600,1400 [facility] Last Admin: 07/09/17 06:10 Dose: 40 mg Heparin Sodium (Porcine) (Heparin -) 1,000 unit IVPUSH PRN PRN PRN Reason: Heparin Last Admin: 07/04/17 10:00 Dose: 1,000 unit Insulin Aspart (Novolog Vial Sliding Scale -) 1 vial SQ ACHS [facility] PRN Reason: Protocol Last Admin: 07/09/17 06:36 Dose: 6 units Insulin Detemir (Levemir Vial) 28 units SQ ACBK [facility] Last Admin: 07/09/17 06:35 Dose: 28 units Lisinopril (Prinivil) 10 mg PO DAILY [facility] Last Admin: 07/09/17 09:57 Dose: 10 mg Metoprolol Succinate (Toprol Xl -) 50 mg PO BID [facility] Last Admin: 07/09/17 09:57 Dose: 50 mg Metoprolol Tartrate (Lopressor Injection -) 5 mg IVPUSH Q4H PRN PRN Reason: HR > 130 Pantoprazole Sodium (Protonix -) 40 mg PO BID [facility] Last Admin: 07/09/17 09:57 Dose: 40 mg Polyethylene Glycol (Miralax (For Daily Use) -) 17 gm PO BID [facility] Last Admin: 07/08/17 22:16 Dose: Not Given Vital Signs - 24 hr 07/08/17 07/08/17 07/08/17 15:34 17:00 21:00 Temperature 98.1 F 98.2 F Pulse Rate 116 H 119 H Respiratory 18 Rate Blood Pressure 117/75 112/40 O2 Sat by Pulse 94 L Oximetry (%) 07/08/17 07/09/17 07/09/17 22:00 02:00 05:34 Temperature 98.2 F 98.2 F 98.3 F Pulse Rate 108 H 105 H 101 H Respiratory 20 20 20 Rate Blood Pressure 137/68 119/54 141/59 O2 Sat by Pulse Oximetry (%) 07/09/17 09:00 Temperature 98.3 F Pulse Rate 92 H Respiratory 20 Rate Blood Pressure 101/58 O2 Sat by Pulse 94 L Oximetry (%) nad calm no jvd irreg, s1s2 no mrg ctab, nl eff + bs soft nt nd no jaundice diaphoresis aaox3 no le edema bl, no c/c CBC, BMP 07/09/17 05:53 07/08/17 06:30 tele: afib, rate back down to 80's-90's. ecg: afib rate 90s, nl qtc, no ischemic changes echo 06/2016: nl lv/rv, mild emmanuelle, mv ring, mod tr, mild phtn endoscopy 07/2017: Bleeding source appears to be vascular ectasias, likely in the small bowel as large cecal nonbleeding angiodysplasias were seen. 4 colon polyps were removed. Should have capsule endoscopy as outpatient. a/p: 77 f hx mv ring repair 2009, afib, dm, htn, ppm, hld, chf here s/p fall. fall: -mechanical, no indication of cardiac etiology anemia: -incidentally found here -no cardiac contraindication to foc/egd if needed --> s/p endoscopy 07/08 -stopped aspirin as no strong indication for it since she is on ac -holding ac due to continued low hgb. Per GI recs: Refrain from anticoagulation for 5 days after endoscopy 07/08. chronic diastolic chf: -stable, cont po lasix 40 bid mv repair: -normal fcn on recent echo afib: -cont bb, rate ok -was on coumadin at home. ac on hold as above, per gi recs - will need to hold for additional 5 days after endoscopy 07/08 htn: -cont toprol, norvasc, lisinopril - running on low end 07/08, s/p anesthesia, now improved, no change in regimen. ppm: -ongoing outpt f/u hld: -cont home statin Ok to d/c tele from CV perspective if not needed from GI perspective.
[2017-07-09] MEDS: ACETAMINOPHEN 325 MG TABLET (FP) PO PRN ×2 (13:54→20:32)
--- NOTE | 2017-07-09 16:59 | PATH ---
Surgical Pathology Report Patient Name: KEITH HERNANDEZ [facility]. Rec. #: [id number] /Age/Gender: 1940 (Age: 77) / F Account: [id number] Location: 4 W TELEMETRY U Taken: 07/08/2017 Received: 07/08/2017 Reported: 07/09/2017 Physicians: Travis Zheng M.D. Specimen(s) Received A: BX SECOND PORTION DUODENUM AND DUODENAL BULB B: BX GASTRIC ANTRUM C: POLYPS FROM MID TRANSVERSE COLON D: BX POLYPS PROXIMAL TRANSVERSE COLON Clinical History Occult blood in stool, decreased hemoglobin Postoperative diagnosis: Mild gastritis, colon polyps, diverticulosis, angiodysplasia Final Diagnosis A. DUODENUM, SECOND PORTION AND DUODENAL BULB, BIOPSY: DUODENAL MUCOSA WITHOUT SIGNIFICANT PATHOLOGIC FINDINGS. B. STOMACH, ANTRUM, BIOPSY: GASTRIC ANTRAL MUCOSA WITH MILD CHRONIC GASTRITIS. IMMUNOHISTOCHEMICAL STAIN FOR H. PYLORI IS NEGATIVE. C. MID TRANSVERSE COLON, POLYP, BIOPSY: TUBULAR ADENOMA(S). D. PROXIMAL TRANSVERSE COLON, POLYP, BIOPSY: TUBULAR ADENOMA. SEPARATE FRAGMENTS OF POLYPOID COLONIC MUCOSA WITHOUT SIGNIFICANT PATHOLOGIC FINDINGS. Electronically Signed Paola Gilman M.D. Gross Description A. Received in formalin, labeled "biopsy second portion of duodenum and duodenal bulb" are 2 kennedy, irregular portions of soft tissue measuring 0.3 and 0.4 cm. in greatest dimension. The specimens are submitted in toto in one cassette. B. Received in formalin, labeled "biopsy gastric antrum" are 3 kennedy, irregular portions of soft tissue averaging 0.2 cm. in greatest dimension. The specimens are submitted in toto in one cassette. C. Received in formalin, labeled "polyp mid transverse colon" are 6 kennedy, irregular portions of soft tissue ranging from 0.2-0.6 cm. in greatest dimension. The specimens are submitted in toto in one cassette. D. Received in formalin, labeled "polyp proximal transverse" are 5 kennedy, irregular portions of soft tissue ranging from 0.1-0.4 cm. in greatest dimension. The specimens are submitted in toto in one cassette. DL07/08/2017 saudi07/08/2017
--- NOTE | 2017-07-09 21:08 | PN ---
GI Progress Note Subjective: GI NOte; No adverse events following the GI endoscopies. The colon polyps are adenomas but given the wide based one would refrain from resuming coumadin until 07/13. I have advised Mikayla to take iron together with Vitamin C BID to keep up with vascular ectasia GI blood losses and to take Miralax daily to prevent hard traumatic stool and constipation. Advised repeat colonoscopy in 3 years. - Objective Vital Signs: Vital Signs Temperature 98.2 F 07/09/17 20:33 Pulse Rate 102 H 07/09/17 20:33 Respiratory Rate 20 07/09/17 20:33 Blood Pressure 123/71 07/09/17 20:33 O2 Sat by Pulse Oximetry (%) 96 07/09/17 20:33 Constitutional: No Distress ...Auscultate: Yes: Normoactive Bowel Sounds ...Palpate: Yes: Soft, Other (nontender) Labs: CBC, BMP 07/09/17 05:53 07/08/17 06:30 INR, PTT INR 1.14 (0.82-1.09) 07/08/17 06:30 Assessment/Plan NO GI objections to discharge on iron/Vit C BID and Miralax daily Problem List - Problems (1) GIB (gastrointestinal bleeding) Code(s): K92.2 - GASTROINTESTINAL HEMORRHAGE, UNSPECIFIED Qualifiers: GI bleed type/associated pathology: unspecified gastrointestinal hemorrhage type Qualified Code(s): K92.2 - Gastrointestinal hemorrhage, unspecified (2) H/O mitral valve replacement Code(s): Z95.2 - PRESENCE OF PROSTHETIC HEART VALVE (3) Anemia Code(s): D64.9 - ANEMIA, UNSPECIFIED Qualifiers: Iron deficiency anemia type: chronic blood loss (4) Colon adenomas Code(s): D12.6 - BENIGN NEOPLASM OF COLON, UNSPECIFIED (5) Angiodysplasia of colon with hemorrhage Code(s): K55.21 - ANGIODYSPLASIA OF COLON WITH HEMORRHAGE
[2017-07-09] MEDS: ASCORBIC ACID 500 MG TABLET (FP) PO SCH (21:19)
[2017-07-09] MEDS: ATORVASTATIN CA 10 MG TABLET (FP) PO SCH (21:19)
[2017-07-09] MEDS: FERROUS SO4 325 MG TABLET (FP) PO SCH (21:19)
[2017-07-10 03:27] VITALS: TEMP 98.1
[2017-07-10] MEDS: FUROSEMIDE 40 MG TABLET (FP) PO SCH ×2 (05:59→13:33)
[2017-07-10] MEDS: INSULIN SLIDING SCALE (NOVOLOG) 1 VIAL SQ SCH ×2 (06:00→11:39)
[2017-07-10] MEDS: INSULIN (LEVEMIR) 100 UNITS/ML UNITS SQ SCH (06:30)
[2017-07-10 07:46] VITALS: BP 129/76; PULSE 90
[2017-07-10 09:27] LABS: HEMATOCRIT 25.8 % (32.4-45.2); HEMOGLOBIN 8.3 GM/dL (10.7-15.3); MCH 24.2 pg (25.7-33.7); MCHC 32.2 g/dl (32.0-36.0); MEAN CELL VOLUME 75.1 fl (80-96); MEAN PLT VOLUME 9.4 fl (7.5-11.1); PLATELET COUNT 214 K/MM3 (134-434); RBC 3.43 M/mm3 (3.60-5.2); RDW 16.7 % (11.6-15.6); WHITE BLOOD COUNT 6.6 K/mm3 (4.0-10.0)
[2017-07-10] MEDS: ASCORBIC ACID 500 MG TABLET (FP) PO SCH (09:57)
[2017-07-10] MEDS: amLODIPine BESYLATE 10 MG TABLET (FP) PO SCH (09:58)
[2017-07-10] MEDS: FERROUS SO4 325 MG TABLET (FP) PO SCH (09:58)
[2017-07-10] MEDS: PANTOPRAZOLE 40 MG TABLET (FP) PO SCH (09:59)
[2017-07-10] MEDS: POLYETHYLENE GLYCOL 3350 119 GM BTL PO SCH (09:59)
[2017-07-10] MEDS: LISINOPRIL 10 MG TABLET (FP) PO SCH (09:59)
[2017-07-10 10:24] LABS: CHLORIDE 105 mmol/L (98-107); POTASSIUM 3.9 mmol/L (3.5-5.1); SODIUM 138 mmol/L (136-145)
[2017-07-10 11:23] LABS: ANION GAP 13 (8-16); BLOOD UREA NITROGEN 9 mg/dL (7-18); CALCIUM 8.1 mg/dL (8.5-10.1); CO2 20 mmol/L (21-32); CREATININE 0.7 mg/dL (0.55-1.02); GLUCOSE,RANDOM 80 mg/dL (74-106)
--- NOTE | 2017-07-10 11:51 | PN ---
Progress Note (short form) - Note Progress Note: s: no cp palps dizzy,sob o: Vital Signs Period Temp Pulse Resp BP Sys/[place] Pulse Ox Last 24 Hr 98.1 F-98.8 F 83-102 18-20 97-131/50-79 96-96 nad no jvd irreg, s1s2 no mrg ctab, nl eff no jaundice diaphoresis aaox3 no le edema bl, no c/c Current Medications Generic Name Dose Route Start Last Admin Trade Name Freq PRN Reason Stop Dose Admin Acetaminophen 650 mg 07/05/17 01:36 07/09/17 20:32 Tylenol - PO 650 mg Q6H PRN Administration PAIN LEVEL 5-10 Amlodipine Besylate 10 mg 07/04/17 10:00 07/10/17 09:58 Norvasc - PO 10 mg DAILY [facility] Administration Ascorbic Acid 500 mg 07/09/17 22:00 07/10/17 09:57 Vitamin C - PO 500 mg BID [facility] Administration Atorvastatin Calcium 10 mg 07/04/17 22:00 07/09/17 21:19 Lipitor - PO 10 mg HS [facility] Administration Ferrous Sulfate 325 mg 07/09/17 22:00 07/10/17 09:58 Feosol - PO 325 mg BID [facility] Administration Furosemide 40 mg 07/04/17 06:00 07/10/17 05:59 Lasix - PO 40 mg BID@0600,1400 [facility] Administration Heparin Sodium (Porcine) 1,000 unit 07/03/17 22:31 07/04/17 10:00 Heparin - IVPUSH 1,000 unit PRN PRN Administration Heparin Insulin Aspart 1 vial 07/04/17 07:00 07/10/17 11:39 Novolog Vial Sliding Scale - SQ 4 units ACHS [facility] Administration Protocol Insulin Detemir 28 units 07/05/17 10:30 07/10/17 06:30 Levemir Vial SQ 28 units ACBK [facility] Administration Lisinopril 10 mg 07/04/17 10:00 07/10/17 09:59 Prinivil PO 10 mg DAILY [facility] Administration Metoprolol Succinate 50 mg 07/03/17 22:45 07/10/17 09:59 Toprol Xl - PO 50 mg BID [facility] Administration Metoprolol Tartrate 5 mg 07/07/17 22:46 Lopressor Injection - IVPUSH Q4H PRN HR > 130 Pantoprazole Sodium 40 mg 07/04/17 22:00 07/10/17 09:59 Protonix - PO 40 mg BID [facility] Administration Polyethylene Glycol 17 gm 07/04/17 22:00 07/10/17 09:59 Miralax (For Daily Use) - PO 17 gm BID [facility] Administration CBC, BMP 07/10/17 06:30 tele: afib, rate ok ecg: afib rate 90s, nl qtc, no ischemic changes echo 06/2016: nl lv/rv, mild emmanuelle, mv ring, mod tr, mild phtn endoscopy 07/2017: Bleeding source appears to be vascular ectasias, likely in the small bowel as large cecal nonbleeding angiodysplasias were seen. 4 colon polyps were removed. Should have capsule endoscopy as outpatient. a/p: 77 f hx mv ring repair 2009, afib, dm, htn, ppm, hld, chf here s/p fall. fall: -mechanical, no indication of cardiac etiology anemia: -incidentally found here -no cardiac contraindication to foc/egd if needed --> s/p endoscopy 07/08 -stopped aspirin as no strong indication for it since she is on ac -holding ac due to continued low hgb. Per GI recs: Refrain from anticoagulation for 5 days after endoscopy 07/08. chronic diastolic chf: -stable, cont po lasix 40 bid mv repair: -normal fcn on recent echo afib: -cont bb, rate ok -was on coumadin at home. ac on hold as above, per gi recs - will need to hold for additional 5 days after endoscopy 07/08 htn: -cont toprol, norvasc, lisinopril - running on low end 07/08, s/p anesthesia, now improved, no change in regimen. ppm: -ongoing outpt f/u hld: -cont home statin cardiac melendez ok for dc
[2017-07-10] MEDS ORDERED: BACITRACIN 15 GM TUBE TOPICAL OINTMENT TP SCH (12:15)
--- NOTE | 2017-07-10 12:26 | DS ---
Physical Examination Vital Signs: Vital Signs Temperature 98.1 F 07/10/17 07:43 Pulse Rate 90 07/10/17 07:43 Respiratory Rate 20 07/10/17 07:46 Blood Pressure 129/76 07/10/17 07:43 O2 Sat by Pulse Oximetry (%) 96 07/10/17 07:46 Findings/Remarks: Pt w/o SOB, CP, palpitations, N,V, abd pain, blood in stool. Time spent for cooordinating pt's care: over 50 minutes. Constitutional: Yes: No Distress, Calm Cardiovascular: Yes: Regular Rate and Rhythm, S1, S2 Respiratory: Yes: Regular, CTA Bilaterally Gastrointestinal: Yes: Normal Bowel Sounds, Soft. No: Tenderness Edema: No Integumentary: Yes: Other (Right antecubital fosa erythema, skin break, no calor , no discharge.) Neurological: Yes: Alert, Oriented Labs: CBC, BMP 07/10/17 06:30 07/10/17 06:30 Discharge Summary Reason For Visit: OCCULT BLOOD IN STOOL, DECREASED HEMOGLOBIN Current Active Problems Abnormal stress test (Acute) Accident due to mechanical fall without injury (Acute) Anemia (Acute) Angiodysplasia of colon with hemorrhage (Acute) CAD (coronary artery disease) (Acute) COPD (chronic obstructive pulmonary disease) (Acute) Colon adenomas (Acute) Diabetes mellitus (Acute) Fall (Acute) GIB (gastrointestinal bleeding) (Acute) Guaiac + stool (Acute) H/O mitral valve replacement (Acute) Hemoglobin decreased (Acute) Procedures: Principal: EGD. Colonoscopy. Knee, Shoulder, Elbow XR. Head CT scan Hospital Course: Pt came to ER after fell in a bank, couple of days prior to ER visit. In ER she was found to have worsening anemia and have blood in the stool. Pt was admitted , was seen by Cardio ( Dr. Davalos) and GI (Dr. Aquino). Pt H/H decreased while in the hospital, AC was stopped, pt received PRBC transfusion. Pt underwent EGD and colonoscopy, positive fro cecal non-bleeding angiodysplasias and four colon polyps that were removed; AC is on hold untill 07/13/17. Pt needs to f/u with Dr. Aquino for capsule endoscopy ( after DC) and repeated colonoscopy (in 3 years). Pt to follow-up with Dr. Nikhil Maher early next week, and her it support specialist for follow-up on lung nodule. Pt and ( at bedside) were in informed about recommended follow-up( as above) and treatment ( medications were reviewed.), all questions were answered. Condition: Stable - Instructions Diet, Activity, Other Instructions: YOU MUST CALL DR MAHER TOMORROW MORNING YOU MUST COME TO THE ER FOR ANY WEAKNESS ANY OTHER CONCERNS OR COMPLAINTS On 07/13/2017 to start Coumadin, in the evening, as follow: 7.5 mg on Saturday and Saturday, 6 mg on Saturday, 5 mg alternating with 6 mg starting Saturday (same as before hospitalization). Referrals: Lily Maher MD [Primary Care Provider] - (early next week) Dayo Aquino MD [Staff Physician] - (in 1-2 weeks) - Home Medications Comprehensive Discharge Medication List: Ambulatory Orders
[2017-07-10] MEDS: ACETAMINOPHEN 325 MG TABLET (FP) PO PRN (13:35)
== END 2017-07-10 13:40 | disposition home or self-care (01) | DRG 378 ==
LOC: JER 13:21 → JERBED 19:23 → J4W 20:43
PROVIDERS: ADMIT Specialist; ATTEND Specialist
PROC: 30233N1 Transfusion of Nonautologous Red Blood Cells into Peripheral Vein, Percutaneous Approach (ICD-10-PCS; principal; 2017-07-04)
PROC: 0DD98ZX Extraction of Duodenum, Via Natural or Artificial Opening Endoscopic, Diagnostic (ICD-10-PCS; 2017-07-08)
PROC: 0DD68ZX Extraction of Stomach, Via Natural or Artificial Opening Endoscopic, Diagnostic (ICD-10-PCS; 2017-07-08)
PROC: 0DBL8ZX Excision of Transverse Colon, Via Natural or Artificial Opening Endoscopic, Diagnostic (ICD-10-PCS; 2017-07-08)
PROC: 0DDL8ZX Extraction of Transverse Colon, Via Natural or Artificial Opening Endoscopic, Diagnostic (ICD-10-PCS; 2017-07-08)
DX: K31.811 Angiodysplasia of stomach and duodenum with bleeding (principal); I50.32 Chronic diastolic (congestive) heart failure; D62 Acute posthemorrhagic anemia; I35.0 Nonrheumatic aortic (valve) stenosis; I48.91 Unspecified atrial fibrillation; E11.9 Type 2 diabetes mellitus without complications; I25.10 Atherosclerotic heart disease of native coronary artery without angina pectoris; J44.9 Chronic obstructive pulmonary disease, unspecified; K57.30 Diverticulosis of large intestine without perforation or abscess without bleeding; K64.8 Other hemorrhoids; R94.39 Abnormal result of other cardiovascular function study; W01.0XXA Fall on same level from slipping, tripping and stumbling without subsequent striking against object, initial encounter; E78.5 Hyperlipidemia, unspecified; I11.0 Hypertensive heart disease with heart failure; M19.90 Unspecified osteoarthritis, unspecified site; D12.6 Benign neoplasm of colon, unspecified; D50.0 Iron deficiency anemia secondary to blood loss (chronic); R91.1 Solitary pulmonary nodule; K29.70 Gastritis, unspecified, without bleeding; Z95.2 Presence of prosthetic heart valve; Z95.0 Presence of cardiac pacemaker; Z87.891 Personal history of nicotine dependence; Y92.89 Other specified places as the place of occurrence of the external cause
CPT/HCPCS: 36415; 36430; 70450-TC; 73030-TC-RT-FY; 73070-TC-RT-FY; 73562-TC-RT-FY; 80048; 80053; 82272; 82550; 82553; 82607; 82728; 82746; 82962; 83516; 83540; 83550; 83880; 84484; 85025; 85027; 85044; 85610; 85730; 86850; 86900; 86901; 86922; 88305-TC; 93005; 93010; 99284-25; J1644; P9038; P9058

== ENCOUNTER 2017-07-16 16:45 | Inpatient (IN) | payer OTHER ==
[2017-07-16] MEDS ORDERED: SODIUM CHLORIDE 1,000 ML IV SCH (17:00)
[2017-07-16 17:28] LABS: BASO % 0.8 % (0-2.0); EOS % 1.1 % (0-4.5); HEMATOCRIT 32.9 % (32.4-45.2); HEMOGLOBIN 9.9 GM/dL (10.7-15.3); LYMPH % 13.8 % (8-40); MCH 23.2 pg (25.7-33.7); MCHC 30.2 g/dl (32.0-36.0); MEAN PLT VOLUME 8.7 fl (7.5-11.1); MONO % 7.2 % (3.8-10.2); NEUT % 77.1 % (42.8-82.8); PLATELET COUNT 297 K/MM3 (134-434); RBC 4.28 M/mm3 (3.60-5.2); RDW 19.6 % (11.6-15.6); WHITE BLOOD COUNT 10.1 K/mm3 (4.0-10.0)
--- NOTE | 2017-07-16 17:33 | PDOC ---
Attending Attestation - [facility] HPI: 07/16/17 18:41 The patient is a 77 year old female with a significant past medical history of atrial fibrillation on coumadin, coronary artery bypass graft, permanent pacemaker, chronic pulmonary obstructive disorder, diabetes, hypertension, and hyperlipidemia, brought in by EMS, who presents to the emergency department for evaluation dysarthria. The patients reports she dropped at item while shopping at [employer] around 3pm. He reports the patient had garbled speech and difficulty articulating which prompted her to be transported to the emergency department. The patient was recently admitted for a head strike 2 weeks ago, and was noted to be anemic. Of note, the patient was taken off coumadin for upper endoscopy and colonoscopy 2 weeks ago, but restarted Coumadin on Saturday (07/13). The patient does not follow with a neurologist. The patient denies chest pain, shortness of breath, headache, and dizziness. Denies fevers, chills, nausea, vomiting, diarrhea, and constipation. Denies dysuria, frequency, urgency, and hematuria. Allergies: NKDA Past surgical history: Pacemaker, CABG Social history: Former smoker 2007. No reported alcohol or drug use. PCP: Dr. Maher ([phone]) - Physicial Exam PE: Vitals: Triage Vital signs reviewed General Appearance: no acute distress, well nourished well developed, Head: Atraumatic, normocephalic Eyes: Pupils equal reactive round, extraocular movement intact Nose: Nares patent bilaterally;no nasal congestion Neck: Supple;No Nuchal rigidity Chest Wall: Nontender Cardiac: Regular rate and rhythm, no murmurs, no rubs, no gallops, Lungs: Clear to auscultation bilateral, good air movement bilaterally, Abdomen: Soft, nondistended, normal bowel sounds, nontender to palpation Rectal: Exam deferred Extremities: Full range of motion to all extremities, no cyanosis, clubbing, or edema Skin: Warm and dry, no rashes or lesions, no petechiae Neuro: (+)Slurred speech. (+)Facial droop. Psych: normal mood, normal affect - Medical Decision Making The patient is a 77 year old female with a significant past medical history of atrial fibrillation on coumadin, coronary artery bypass graft, permanent pacemaker, chronic pulmonary obstructive disorder, diabetes, hypertension, and hyperlipidemia, brought in by EMS, who presents to the emergency department for evaluation dysarthria. Plan: Head CT MRI brain MRA head and neck labs ECG <Amada Finn - Last Filed: 07/16/17 18:43> - Medical Decision Making 07/16/17 19:[address] Fischer, who admits for patient's PCP Dr. Maher, at . Awaiting callback. <Elsie Chase - Last Filed: 07/16/17 19:44> - Resident Resident Name: Oscar Kang - ED Attending Attestation I have performed the following: I have examined & evaluated the patient, The case was reviewed & discussed with the resident, I agree w/resident's findings & plan, Exceptions are as noted - Critical Care Time Total Critical Care Time: 45 Critical Care Statement: The care of this patient involved high complexity decision making to prevent further life threatening deterioration of the patient 's condition and/or to evaluate & treat vital organ system(s) failure or risk of failure. - Medical Decision Making 07/16/17 19:46 Code Ho activated. Patient presented to the emergency department with minor facial droop and slurred speech. NIHSS 2. Case discussed with Dr. Sutherland neurology. Given patient's stroke scale no indication for TPA at this time. Head CT demonstrates no acute hemorrhage. Patient is subtherapeutic on her INR. Case discussed with both GI neurology recommendation is to restart heparin. Based on recent GI bleed risks of additional stroker progression of stroke outweigh risks of GI bleed. Which can be treated with transfusion Decision made to place patient on heparin drip. Patient will be admitted to medicine for further management neurology to consult. <Kevin Simpson - Last Filed: 07/16/17 19:48> Heart Score/ECG Review - ECG Impressions Comment:: ECG reviewed by Dr. Simpson at 17:09. Impression: Atrial fibrillation with rapid ventricular response. Low voltage QRS. Nonspecific ST and T wave abnormality. Abnormal ECG. Vent. Rate 111 bpm NE Interval * ms QRS duration 78 ms QT/QTc 284/386 ms P-R-T axes * 46 106 <Amada Finn - Last Filed: 07/16/17 18:43> NIH Stroke Scale - Initial Evaluation Level of consciousness: Alert Ask patient the month and their age: Answers both correctly Ask patient to open & close eyes; make fist and let go: Obeys both correctly Best gaze (horizontal eye movement): Normal Visual field testing: No visual field loss Facial paresis (Show teeth/raise eyebrows/close eyes tight): Minor paralysis ( flattened nasolabial fold, asymmetry on smiling) Motor Function: Left Arm: Normal Motor Function: Right Arm: Normal (extends arm 90 (or 45) degrees for 10 seconds without drift Motor Function: Left Leg: Normal (extends leg 30 degrees for 5 seconds without drift) Motor Function: Right Leg: Normal (extends leg 30 degrees for 5 seconds without drift) Limb Ataxia: No ataxia Sensory(Use pinprick test arms,legs,trunk,face/side to side): Normal Best language (Describe picture, name items, read sentences): No Aphasia Dysarthria (read several words): Mild to moderate slurring of words Extinction and Inattention: No abnormality - Total Score NIH Stroke Scale Score: 2 <Kevin Simpson - Last Filed: 07/16/17 19:48> Attestations - Attestations Documentation prepared by Amada Finn, acting as medical transcription for Kevin Simpson MD. <Amada Finn - Last Filed: 07/16/17 18:43>
[2017-07-16 17:39] LABS: INR 1.6 (0.82-1.09); PROTHROMBIN TIME (PATIENT) 18.1 SEC (9.7-13.0)
--- NOTE | 2017-07-16 17:40 | PDOC ---
History of Present Illness - General Chief Complaint: CVA/TIA Stated Complaint: DIZZINESS Time Seen by Provider: 07/16/17 17:04 - History of Present Illness Initial Comments: Patient is a 77 year old female, with a significant past medical history of DM2 , HTN, afib (on coumadin), CHF, who presents to the emergency department with new onset dysarthria beginning at 3PM today. The patient denies chest pain, shortness of breath, headache or dizziness. Denies fever, chills, nausea, vomiting, diarrhea and constipation. Denies dysuria, frequency, urgency and hematuria. Allergies: Past surgical history: Social History: PMD: 07/16/17 17:38 Past History - Past Medical History Allergies/Adverse Reactions: Allergies Allergy/AdvReac Type Severity Reaction Status Date / Time No Known Allergies Allergy Verified 07/16/17 16:49 Home Medications: Ambulatory Orders Amlodipine Besylate [Norvasc -] 10 mg PO DAILY 06/28/16 Aspirin [ASA -] 81 mg PO DAILY 06/28/16 Lisinopril 10 mg PO DAILY 06/28/16 Simvastatin 10 mg PO DAILY 06/28/16 Furosemide [Lasix -] 40 mg PO BID@0600,1400 #180 tablet 07/04/16 Metoprolol Succinate [Toprol XL -] 50 mg PO BID #60 tablet 07/04/16 Insulin (Levemir) [Levemir Vial] 38 units SQ ACBK 07/03/17 Sitagliptin Phos/Metformin HCl [Janumet 50-1,000 mg Tablet] 1 each PO DAILY 04/21 Ascorbic Acid [Vitamin C -] 500 mg PO BID 30 Days #60 tablet MDD 2 07/10/17 Bacitracin - [Bacitracin Topical Ointment -] 1 applic TP BID tube 07/10/17 Ferrous Sulfate [Feosol] 325 mg PO BID #60 ud MDD 2 07/10/17 Polyethylene Glycol 3350 [Miralax 119 gm Btl -] 17 gm PO BID 30 Days #1 bottle MDD 2 07/10/17 Warfarin Na [Coumadin -] 5 mg PO SuTuThSa@18 #0 tablet 07/10/17 Warfarin Na [Coumadin -] 6 mg PO MoWeFr@1800 #0 tablet 07/10/17 Cardiac Disorders: Yes (afib on coumadin, CABG, PPM) CVA: No COPD: Yes CHF: Yes Diabetes: Yes GI Disorders: Yes (GI BLEED) HTN: Yes Hypercholesterolemia: Yes - Surgical History Cardiac Surgery: Yes (pacemaker, CABG) Orthopedic Surgery: (BONE TUMOR REMOVAL 5YRS OLD) - Immunization History Immunization Up to Date: Yes - Suicide/Smoking/Psychosocial Hx Smoking History: Former smoker Have you smoked in the past 12 months: No If you are a former smoker, when did you quit?: 2007 Information on smoking cessation initiated: No Hx Alcohol Use: No Drug/Substance Use Hx: No Substance Use Type: None Hx Substance Use Treatment: No *Physical Exam - Vital Signs Last Vital Signs Temp Pulse Resp BP Pulse Ox 98.2 F 110 H 20 143/60 96 07/16/17 16:49 07/16/17 16:49 07/16/17 16:49 07/16/17 16:49 07/16/17 16:49 ED Treatment Course - LABORATORY CBC & Chemistry Diagram: 07/16/17 17:15 07/16/17 17:15 - ADDITIONAL ORDERS Additional order review: 07/16/17 17:15 RBC 4.28 D MCV 77.0 L MCHC 30.2 L RDW 19.6 H D MPV 8.7 Neutrophils % 77.1 Lymphocytes % 13.8 D Monocytes % 7.2 Eosinophils % 1.1 Basophils % 0.8
[2017-07-16 17:48] LABS: ALBUMIN 3.3 g/dl (3.4-5.0); ANION GAP 9 (8-16); BLOOD UREA NITROGEN 19 mg/dL (7-18); CALCIUM 8.8 mg/dL (8.5-10.1); CHLORIDE 104 mmol/L (98-107); CHOLESTEROL 109 mg/dL (50-200); CO2 28 mmol/L (21-32); CREATININE 1.2 mg/dL (0.55-1.02); GLUCOSE,RANDOM 152 mg/dL (74-106); POTASSIUM 4.1 mmol/L (3.5-5.1); SGOT/AST 31 U/L (15-37); SGPT/ALT 22 U/L (12-78); SODIUM 141 mmol/L (136-145); TRIGLYCERIDES 144 mg/dL (35-160)
--- NOTE | 2017-07-16 17:57 | PDOC ---
History of Present Illness <Elsie Chase - Last Filed: 07/16/17 19:42> - History of Present Illness Initial Comments: Patient is a 77 year old female, with a significant past medical history of DM2 , Afib (on coumadin), HTN, CHF, who presents to the emergency department after acute onset of dysarthria noted by her at 3PM today while shopping at [facility]. Per , Pt was in her usual state of health when they were shopping at [facility]. Per , pt abruptly dropped item and became acutely dysarthric, unable to articulate intelligible words at the time. EMS was alerted and patient was brought to [facility]. Pt with progressive improvement in dysarthria upon presentation. Gloria Nickerson called. Pt with no prior strokes, no neuro symptoms. Recently off coumadin due to GI bleed on prior admission, restarted on saturday. Pt with dysarthria, L sided subtle facial droop in L labial fold, L tongue deviation on initial exam, initial NIHSS score of 2. patient denies chest pain, shortness of breath, headache or dizziness. Denies fever, chills, nausea, vomiting, diarrhea and constipation. Denies dysuria, frequency, urgency and hematuria. Allergies: None Past surgical history: n/a Social History: Denies smoking, alcohol, drug use PMD: Dr. Maher 07/16/17 17:52 07/16/17 19:28 <Oscar Kang - Last Filed: 07/17/17 07:05> - General Chief Complaint: CVA/TIA Stated Complaint: DIZZINESS Time Seen by Provider: 07/16/17 17:04 Past History <Elsie Chase - Last Filed: 07/16/17 19:42> - Past Medical History Cardiac Disorders: Yes (afib on coumadin, CABG, PPM) CVA: No COPD: Yes CHF: Yes Diabetes: Yes GI Disorders: Yes (GI BLEED) HTN: Yes Hypercholesterolemia: Yes - Surgical History Cardiac Surgery: Yes (pacemaker, CABG) Orthopedic Surgery: (BONE TUMOR REMOVAL 5YRS OLD) - Immunization History Immunization Up to Date: Yes - Suicide/Smoking/Psychosocial Hx Smoking History: Former smoker Have you smoked in the past 12 months: No If you are a former smoker, when did you quit?: 2007 Information on smoking cessation initiated: No Hx Alcohol Use: No Drug/Substance Use Hx: No Substance Use Type: None Hx Substance Use Treatment: No <Oscar Kang - Last Filed: 07/17/17 07:05> - Past Medical History Allergies/Adverse Reactions: Allergies Allergy/AdvReac Type Severity Reaction Status Date / Time No Known Allergies Allergy Verified 07/16/17 16:49 Home Medications: Ambulatory Orders Amlodipine Besylate [Norvasc -] 10 mg PO DAILY 06/28/16 Aspirin [ASA -] 81 mg PO DAILY 06/28/16 Lisinopril 10 mg PO DAILY 06/28/16 Simvastatin 10 mg PO DAILY 06/28/16 Furosemide [Lasix -] 40 mg PO BID@0600,1400 #180 tablet 07/04/16 Metoprolol Succinate [Toprol XL -] 50 mg PO BID #60 tablet 07/04/16 Insulin (Levemir) [Levemir Vial] 38 units SQ ACBK 07/03/17 Sitagliptin Phos/Metformin HCl [Janumet 50-1,000 mg Tablet] 1 each PO DAILY 04/21 Ascorbic Acid [Vitamin C -] 500 mg PO BID 30 Days #60 tablet MDD 2 07/10/17 Bacitracin - [Bacitracin Topical Ointment -] 1 applic TP BID tube 07/10/17 Ferrous Sulfate [Feosol] 325 mg PO BID #60 ud MDD 2 07/10/17 Polyethylene Glycol 3350 [Miralax 119 gm Btl -] 17 gm PO BID 30 Days #1 bottle MDD 2 07/10/17 Warfarin Na [Coumadin -] 5 mg PO SuTuThSa@18 #0 tablet 07/10/17 Warfarin Na [Coumadin -] 6 mg PO MoWeFr@1800 #0 tablet 07/10/17 Review of Systems - Review of Systems Comments:: GENERAL/CONSTITUTIONAL: No fever or chills. No weakness. HEAD, EYES, EARS, NOSE AND THROAT: Small vision field defect in middle of visual field in L eye, chronic. No ear pain or discharge. No sore throat. CARDIOVASCULAR: No chest pain or shortness of breath RESPIRATORY: No cough, wheezing, or hemoptysis. GASTROINTESTINAL: No nausea, vomiting, diarrhea or constipation. GENITOURINARY: No dysuria, frequency, or change in urination. MUSCULOSKELETAL: No joint or muscle swelling or pain. No neck or back pain. SKIN: No rash NEUROLOGIC: Severe dysathria with inability to articulate words intelligibly on initial symptoms onset, improved to mild slurry of words. No headache, vertigo, loss of consciousness, or change in strength/sensation. ENDOCRINE: No increased thirst. No abnormal weight change HEMATOLOGIC/LYMPHATIC: No anemia, easy bleeding, or history of blood clots. ALLERGIC/IMMUNOLOGIC: No hives or skin allergy. 07/16/17 17:52 <Oscar Kang - Last Filed: 07/17/17 07:05> *Physical Exam - Vital Signs Last Vital Signs Temp Pulse Resp BP Pulse Ox 98.2 F 89 20 143/60 97 07/16/17 16:49 07/16/17 16:55 07/16/17 16:49 07/16/17 16:49 07/16/17 16:55 <Elsie Chase - Last Filed: 07/16/17 19:42> - Vital Signs Last Vital Signs Temp Pulse Resp BP Pulse Ox 98.2 F 110 H 20 143/60 96 07/16/17 16:49 07/16/17 16:49 07/16/17 16:49 07/16/17 16:49 07/16/17 16:49 - Physical Exam Comments: GENERAL: Elderly woman, A&Ox3 HEAD: No signs of trauma, normocephalic, atraumatic EYES: PERRLA, EOMI, sclera anicteric, conjunctiva clear ENT: Auricles normal inspection, hearing grossly normal, nares patent, oropharynx clear without exudates. Moist mucosa NECK: Normal ROM, supple, no lymphadenopathy, JVD, or masses LUNGS: No distress, speaks full sentences, clear to auscultation bilaterally HEART: IRR IRR, normal S1 and S2, no murmurs, rubs or gallops, peripheral pulses normal and equal bilaterally. ABDOMEN: Soft, nontender, normoactive bowel sounds. No guarding, no rebound. No masses EXTREMITIES : Normal inspection, Normal range of motion, no edema. No clubbing or cyanosis. NEUROLOGICAL: Subtle L facial droop, L tongue deviation. Facial sensation preserved BL. 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 Mild slurred speech, thought blocking noted during conversation. gait not evaluated. 5/5 strength in all extremities, preserved sensation globally. No pronator drift. SKIN: Warm, Dry, normal turgor, no rashes or lesions noted 07/16/17 17:52 <Oscar Kang - Last Filed: 07/17/17 07:05> NIH Stroke Scale - Last Known Well Date/Time & Onset Date Last Known Well: 07/16/17 (Last known well at around 3PM) - Initial Evaluation Level of consciousness: Alert Ask patient the month and their age: Answers both correctly Ask patient to open & close eyes; make fist and let go: Obeys both correctly Best gaze (horizontal eye movement): Normal Visual field testing: No visual field loss Facial paresis (Show teeth/raise eyebrows/close eyes tight): Minor paralysis ( flattened nasolabial fold, asymmetry on smiling) Motor Function: Left Arm: Normal Motor Function: Right Arm: Normal (extends arm 90 (or 45) degrees for 10 seconds without drift Motor Function: Left Leg: Normal (extends leg 30 degrees for 5 seconds without drift) Motor Function: Right Leg: Normal (extends leg 30 degrees for 5 seconds without drift) Sensory(Use pinprick test arms,legs,trunk,face/side to side): Normal Best language (Describe picture, name items, read sentences): No Aphasia Dysarthria (read several words): Mild to moderate slurring of words Extinction and Inattention: No abnormality - Total Score NIH Stroke Scale Score: 2 <Oscar Kang - Last Filed: 07/17/17 07:05> tPA Exclusion Checklist 0-3hr - Time Elapsed Date last known well: 07/16/17 (3PM) - Thrombolytic Therapy Candidate Is the patient eligible for Thrombolytic Therapy?: No - Exclusion Criteria 0-3hr Recent IC/spinal surgery,head trauma or stroke w/in last 3mo: Yes Blding diathesis(low plt ct, inc PTT,INR>1.7 or use of NOAC): No - Relative Exclusion Criteria 0-3h Stroke severity too mild: Yes - Ineligibility reason(s) Reasons No tPA given: See reason(s) noted above (NIHSS 2, recent head trauma ) <Oscar Kang - Last Filed: 07/17/17 07:05> Critical Care Time/MDM Note - Medical Decision Making Note: 07/16/17 19:[address] Fischer, who admits for patient's PCP Dr. Lily Maher, at [phone]. Awaiting callback. <Elsie Chase - Last Filed: 07/16/17 19:42> - Medical Decision Making Note: 77 yo woman with pmh of DM2, HTN, Afib (coumadin) presenting with acute onset dysarthria, mild facial droop starting at 3PM this PM. Pt received non-con CT head negative for acute bleed or mass effect. NIHSS score of 2. CBC, CMP, PT/INR , Lipid panel sent. Pt unable to obtain MRI as has PPM. Case discussed with neurologist on-call, Dr. Sutherland, who recommend starting heparin gtt if cleared by GI, due to prior GI bleed two weeks ago on prior heparin gtt. Dr. Aquino contacted who performed prior EGD/Colonoscopy, notified of case, agreed with plan to start heparin gtt with vigilant surveillance for GI bleed and serial CBC. Heparin gtt started. Pt with recurrence of dysarthria again in ED, Dr. Sutherland contacted, recommended continuation of current plan. Call placed to Dr. Fischer, awaiting call-back for admission. 07/16/17 20:[address] Fischer. Agreed with plan, admit pt to Telemetry. Request NPO prior to bedside swallow eval. Recommended cardiology consult given Trop of 3.0. Repeat trop ordered for 11PM, cardiology consulted. EKG with no ischemic changes on presentation. Care transferred to Dr. Ji, sign out provided. Pt admitted to inpt Telemetry. Family appraised of plan, amenable, all questions answered. <Oscar Kang - Last Filed: 07/17/17 07:05> Discharge Disposition - Discharge Dispostion Last Admission D/C Date: 07/10/17 <Oscar Kang - Last Filed: 07/17/17 07:05> Attestations - Attestations 07/16/17 19:44 Documentation prepared by Elsie Chase, acting as director of medical staff services for Oscar Kang MD. <Elsie Chase - Last Filed: 07/16/17 19:42>
[2017-07-16 17:58] LABS: ALK PHOS 197 U/L (45-117); BILIRUBIN,TOTAL 0.4 mg/dL (0.2-1.0); HDL CHOLESTEROL 39 mg/dL (40-60); TOT PROT 7.3 g/dl (6.4-8.2)
[2017-07-16] MEDS ORDERED: HEPARIN NA (PORCINE) 5,000 UNITS/ML 1ML VIAL IVPUSH PRN ×3 (17:58→19:00)
[2017-07-16] MEDS ORDERED: HEPARIN - 25,000 UNIT in SODIUM CHLORIDE 495 ML IV SCH (18:00)
[2017-07-16] MEDS ORDERED: ASPIRIN 325 MG ENTERIC COATED TABLET (FP) PO ONE (18:02)
[2017-07-16 18:27] LABS: URINE APPEARANCE SLCLOUDY; URINE BILIRUBIN NEGATIVE (<2.0 mg/dL); URINE COLOR YELLOW; URINE GLUCOSE (UA) NEGATIVE (NEGATIVE); URINE KETONE NEGATIVE (NEGATIVE); URINE LEUK ESTERASE TRACE (NEGATIVE); URINE NITRITE NEGATIVE (NEGATIVE); URINE UROBILINOGEN NEGATIVE mg/dL (0.2-1.0)
[2017-07-16] MEDS ORDERED: HEPARIN INFUSION - 25,000 UNITS/500 ML INFUS.BAG IVPB ONE (18:30)
[2017-07-16] MEDS ORDERED: ASPIRIN 325 MG ENTERIC COATED TABLET (FP) ONE (18:33)
[2017-07-16 19:15] LABS: URINE PROTEIN 1+ (NEGATIVE)
[2017-07-16 19:20] LABS: EPI CELLS RARE /HPF (FEW); URINE HYALINE CAST 3 /lpf; URINE MUCUS RARE
[2017-07-16] MEDS: HEPARIN - 25,000 UNIT in SODIUM CHLORIDE 495 ML IV SCH (19:44)
--- NOTE | 2017-07-16 20:28 | PDOC ---
*Physical Exam - Vital Signs Last Vital Signs Temp Pulse Resp BP Pulse Ox 98.2 F 89 20 143/60 97 07/16/17 16:49 07/16/17 16:55 07/16/17 16:49 07/16/17 16:49 07/16/17 16:55 ED Treatment Course - LABORATORY CBC & Chemistry Diagram: 07/16/17 17:15 07/16/17 17:15 - ADDITIONAL ORDERS Additional order review: Laboratory Results 07/16/17 07/16/17 07/16/17 19:56 18:00 17:15 PT with INR INR Sodium Potassium Chloride Carbon Dioxide Anion Gap BUN Creatinine Creat Clearance w eGFR POC Glucometer 83.45445 Random Glucose Calcium Total Bilirubin AST ALT Alkaline Phosphatase Creatine Kinase Troponin I Total Protein Albumin Triglycerides Cholesterol Total LDL Cholesterol HDL Cholesterol Urine Color Yellow Urine Appearance Slcloudy Urine pH 5.0 Ur Specific Bishop 1.023 Urine Protein 1+ H Urine Glucose (UA) Negative Urine Ketones Negative Urine Blood Negative Urine Nitrite Negative Urine Bilirubin Negative Urine Urobilinogen Negative Ur Leukocyte Esterase Trace Urine WBC (Auto) 7 Urine RBC (Auto) 1 Ur Epithelial Cells Rare Hyaline Casts 3 Urine Mucus Rare Blood Type O POSITIVE Antibody Screen Negative 07/16/17 07/16/17 17:15 17:15 PT with INR 18.10 H INR 1.60 H D Sodium 141 Potassium 4.1 Chloride 104 Carbon Dioxide 28 Anion Gap 9 BUN 19 H Creatinine 1.2 H Creat Clearance w eGFR 43.80 POC Glucometer Random Glucose 152 H Calcium 8.8 Total Bilirubin 0.4 AST 31 ALT 22 Alkaline Phosphatase 197 H Creatine Kinase 100 Troponin I 3.00 H* Total Protein 7.3 Albumin 3.3 L Triglycerides 144 Cholesterol 109 Total LDL Cholesterol 58 HDL Cholesterol 39 L Urine Color Urine Appearance Urine pH Ur Specific Bishop Urine Protein Urine Glucose (UA) Urine Ketones Urine Blood Urine Nitrite Urine Bilirubin Urine Urobilinogen Ur Leukocyte Esterase Urine WBC (Auto) Urine RBC (Auto) Ur Epithelial Cells Hyaline Casts Urine Mucus Blood Type Antibody Screen 07/16/17 07/16/17 19:56 17:15 RBC 4.28 D MCV 77.0 L MCHC 30.2 L RDW 19.6 H D MPV 8.7 Neutrophils % 77.1 Lymphocytes % 13.8 D Monocytes % 7.2 Eosinophils % 1.1 Basophils % 0.8 POC Glucometer 83.70147 - Medications Given in the ED: ED Medications Discontinued Medications Generic Name Dose Route Start Last Admin Trade Name Baldo PRN Reason Stop Dose Admin Aspirin 325 mg 07/16/17 18:02 07/16/17 18:02 Ecotrin - PO 07/16/17 18:03 325 mg ONCE ONE Administration Heparin Sodium (Porcine) 25, 500 mls @ 20 mls/hr 07/16/17 18:00 07/16/17 18: 05 000 unit/ Sodium Chloride IV Not Given TITR BAHMAN Protocol 1,000 UNIT/HR Medical Decision Making - Medical Decision Making 07/16/17 20:[address] Kang. 07/16/17 20:27 *DC/Admit/Observation/Transfer - Referrals Referrals: Lily Maher MD [Primary Care Provider] - - Patient Instructions - Post Discharge Activity
[2017-07-16] MEDS: INSULIN SLIDING SCALE (NOVOLOG) 1 VIAL SQ SCH (22:56)
--- NOTE | 2017-07-16 23:19 | HP ---
Admitting History and Physical - Primary Care Physician PCP: Caleb Fischer - Admission Chief Complaint: Gargled speech History of Present Illness: Pt with significant Hx/o A Fib on AC, recent GIB and anemia requiring PRBC transfusion and EGD/ colonoscopy (s/p four colon polyp resection), off Coumadin post colon polyp resection, was in [employer] store today (she dropped an item from the cart without noticing it- per her ) and later in [employer] store when developed garbled speech. Pt came by EMS to ER, found to have dysarthria and left side tongue deviation, had head CT scan (negative for acute event); pt was diagnosed with CVA and was started on IV Heparin. Pt also reports to me that today in the morning she had chest pressure (but didn 't tell anybody-her got upset hearing this), for couple of hours, coming and going, no radiation, not associated with SOB/ palpitations/ dizziness. Pt also reports left side blurry vision, developed couple of days after was discharged from the hospital. Pt got in touch with Dr. Nikhil Maher yesterday, was offered office visit and INR check yesterday or today but patient "didn't fell like going" for a visit ( because had other things to do); patient decided to try to go for INR check today after store trips or tomorrow. Information was offered by pt and patient's (at bedside). History Source: Patient, Family Member (, at bedside.) - Past Medical History Cardiovascular: Yes: AFIB (on AC), Aortic Stenosis (s/p ring repair at [facility]), CAD , HTN, Other (PPM) Pulmonary: Yes: COPD Gastrointestinal: Yes: GI Bleed, Other (colon polyps, s/p four polyps resection) Heme/Onc: Yes: Anemia Rheumatology: Yes: Other (osteoarthritis) Endocrine: Yes: Diabetes Mellitus - Smoking History Smoking history: Former smoker Have you smoked in the past 12 months: No If you are a former smoker, when did you quit?: 2007 - Alcohol/Substance Use Hx Alcohol Use: No History of Substance Use: reports: None - Social History Usual Living Arrangement: Yes: With Spouse ADL: Independent 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 History of Recent Travel: No Home Medications - Allergies Allergies/Adverse Reactions: Allergies Allergy/AdvReac Type Severity Reaction Status Date / Time No Known Allergies Allergy Verified 07/16/17 16:49 - Home Medications Home Medications: Ambulatory Orders Amlodipine Besylate [Norvasc -] 10 mg PO DAILY 06/28/16 Aspirin [ASA -] 81 mg PO DAILY 06/28/16 Lisinopril 10 mg PO DAILY 06/28/16 Simvastatin 10 mg PO DAILY 06/28/16 Furosemide [Lasix -] 40 mg PO BID@0600,1400 #180 tablet 07/04/16 Insulin (Levemir) [Levemir Vial] 38 units SQ ACBK 07/03/17 Sitagliptin Phos/Metformin HCl [Janumet 50-1,000 mg Tablet] 1 each PO DAILY 04/21 Ascorbic Acid [Vitamin C -] 500 mg PO BID 30 Days #60 tablet MDD 2 07/10/17 Bacitracin - [Bacitracin Topical Ointment -] 1 applic TP BID tube 07/10/17 Ferrous Sulfate [Feosol] 325 mg PO BID #60 ud MDD 2 07/10/17 Warfarin Na [Coumadin -] 5 mg PO SuTuThSa@18 #0 tablet 07/10/17 Warfarin Na [Coumadin -] 6 mg PO MoWeFr@1800 #0 tablet 07/10/17 Metoprolol Succinate [Toprol XL -] 50 mg PO DAILY 07/17/17 Polyethylene Glycol 3350 [Miralax 119 gm Btl -] 17 gm PO BID PRN MDD 2 07/17/17 Family Disease History - Family Disease History Family Disease History: Heart Disease: Father ( [place] age 67), Mother ( CHF in her 70's) Review of Systems - Review of Systems Constitutional: denies: Chills, Fever Eyes: reports: Blurred Vision (with left side gaze). denies: Eye Pain, Photophobia HENT: denies: Difficult Swallowing, Ear Discharge, Ear Pain, Nasal Congestion, Throat Pain Neck: denies: Pain on Movement, Stiffness Cardiovascular: denies: Chest Pain (now), Palpitations, Shortness of Breath Respiratory: denies: Cough, SOB, SOB on Exertion, Wheezing Gastrointestinal: denies: Abdominal Pain, Diarrhea, Nausea, Vomiting Genitourinary: denies: Burning, Discharge Musculoskeletal: reports: Joint Swelling. denies: Back Pain, Muscle Pain Neurological: reports: Change in Speech. denies: Change in LOC, Confusion, Dizziness, Incoordination, Syncope, Unsteady Gait, Weakness Endocrine: denies: Excessive Sweating, Intolerance to Cold Hematology/Lymphatic: denies: Easily Bruised, Excessive Bleeding Psychiatric: denies: Anxiety, Depression Physical Examination Vital Signs: Vital Signs Temperature 98.1 F 07/16/17 22:00 Pulse Rate 118 H 07/16/17 22:00 Respiratory Rate 18 07/16/17 22:00 Blood Pressure 130/81 07/16/17 22:00 O2 Sat by Pulse Oximetry (%) 97 07/16/17 22:00 Constitutional: Yes: No Distress, Calm Eyes: Yes: Conjunctiva Clear, EOM Intact, PERRL HENT: Yes: Normocephalic. No: Epistaxis, Rhinnorhea Neck: Yes: Trachea Midline. No: Tenderness Cardiovascular: Yes: Tachycardia, S1, S2 Respiratory: Yes: Regular, Other (Bilat BS: coarse BS at bases, L > R.) Gastrointestinal: Yes: Normal Bowel Sounds, Soft. No: Tenderness ...Rectal Exam: Yes: Deferred Renal/: No: Bladder Distention, [place] Present Breast(s): Yes: Other (deferred) Musculoskeletal: No: Back Pain, Joint Stiffness, Joint Swelling Extremities: No: Cold, Cool, Cyanosis Edema: No Integumentary: No: Bruising, Rash Neurological: Yes: Alert, Oriented, Dysarthria, Other (left tongue deviation) Labs: CBC, BMP 07/16/17 17:15 07/16/17 17:15 Imaging - Results Cat Scan: Report Reviewed Problem List - Problems (1) CVA (cerebral vascular accident) Code(s): I63.9 - CEREBRAL INFARCTION, UNSPECIFIED (2) Elevated troponin I level Assessment/Plan: Probable NSTEMI vs elevated Trop i secondary to CVA To monitor CE Code(s): R74.8 - ABNORMAL LEVELS OF OTHER SERUM ENZYMES (3) Anemia Code(s): D64.9 - ANEMIA, UNSPECIFIED Qualifiers: Iron deficiency anemia type: chronic blood loss (4) GIB (gastrointestinal bleeding) Code(s): K92.2 - GASTROINTESTINAL HEMORRHAGE, UNSPECIFIED Qualifiers: GI bleed type/associated pathology: unspecified gastrointestinal hemorrhage type Qualified Code(s): K92.2 - Gastrointestinal hemorrhage, unspecified (5) Atrial fibrillation Code(s): I48.91 - UNSPECIFIED ATRIAL FIBRILLATION (6) CAD (coronary artery disease) Code(s): I25.10 - ATHSCL HEART DISEASE OF [place] CORONARY ARTERY W/O ANG PCTRS (7) COPD (chronic obstructive pulmonary disease) Code(s): J44.9 - CHRONIC OBSTRUCTIVE PULMONARY DISEASE, UNSPECIFIED (8) Diabetes mellitus Code(s): E11.9 - TYPE 2 DIABETES MELLITUS WITHOUT COMPLICATIONS (9) HTN (hypertension) Code(s): I10 - ESSENTIAL (PRIMARY) HYPERTENSION (10) Hyperlipidemia Code(s): E78.5 - HYPERLIPIDEMIA, UNSPECIFIED (11) Lung nodule Code(s): R91.1 - SOLITARY PULMONARY NODULE (12) Pacemaker Code(s): Z95.0 - PRESENCE OF CARDIAC PACEMAKER Assessment/Plan Admit to monitor bed. IV Heparin Neurochecks Serial CE Neuro consult Cardio Consult GI consult NPO. IVF. Speech/ swallow eval DVT proph. GI proph. AM labs. Pt's condition and treatment were reviewed with pt and pt's ; both confirmed that were aware of risks associated with holding (secondary to GIB) Coumadin , and that were hopping that nothing would happen to patient. All questions were answered. Time spent for managing patient care: over 85 minutes.
[2017-07-16] MEDS: DEXTROSE 5%-NORMAL SALINE 1,000 ML IV SCH (23:29)
[2017-07-17] MEDS: METOPROLOL TARTRATE 5 MG/5 ML VIAL IVPUSH PRN ×3 (01:20→11:56)
[2017-07-17] MEDS ORDERED: METOPROLOL TARTRATE 5 MG/5 ML VIAL ONE (02:31)
[2017-07-17] MEDS ORDERED: NITROGLYCERIN 2% OINTMENT - 1GM PACKET TD ONE (04:15)
[2017-07-17] MEDS: INSULIN SLIDING SCALE (NOVOLOG) 1 VIAL SQ SCH ×2 (05:13→17:00)
[2017-07-17 06:52] LABS: CHLORIDE 108 mmol/L (98-107); POTASSIUM 3.6 mmol/L (3.5-5.1); SODIUM 143 mmol/L (136-145)
[2017-07-17 07:15] LABS: ALBUMIN 2.9 g/dl (3.4-5.0); ALK PHOS 156 U/L (45-117); ANION GAP 9 (8-16); BILIRUBIN,TOTAL 0.7 mg/dL (0.2-1.0); BLOOD UREA NITROGEN 13 mg/dL (7-18); CALCIUM 8.1 mg/dL (8.5-10.1); CO2 26 mmol/L (21-32); CREATININE 0.7 mg/dL (0.55-1.02); GLUCOSE,RANDOM 143 mg/dL (74-106); SGOT/AST 40 U/L (15-37); SGPT/ALT 19 U/L (12-78); TOT PROT 6.2 g/dl (6.4-8.2)
[2017-07-17 08:01] LABS: HEMATOCRIT 29.2 % (32.4-45.2); MCH 23.7 pg (25.7-33.7); MCHC 30.8 g/dl (32.0-36.0); MEAN CELL VOLUME 76.9 fl (80-96); MEAN PLT VOLUME 9.3 fl (7.5-11.1); PLATELET COUNT 228 K/MM3 (134-434); RDW 20.8 % (11.6-15.6)
--- NOTE | 2017-07-17 09:52 | CON.NEURO ---
Consult - History of Present Illness History of Present Illness: 77 YO Hx/o A Fib on AC, recent GIB and anemia requiring PRBC transfusion and EGD/ colonoscopy (s/p four colon polyp resection), off Coumadin post colon polyp resection (was restarted on 07/13/17) , was in [employer] store 07/16/17 (she dropped an item from the cart without noticing it- per her ) and later in [employer] store when developed garbled speech. Pt came by EMS to ER, found to have dysarthria and left side tongue deviation, had head CT scan (negative for acute event); found to have SUB TX INR spoke to ER at the time, low NIH - HX of coumadin , recent GI BLEED, no TPA given pt was diagnosed with TIA and was started on IV Heparin. HX of GI bleed-- but risk/benefits discussed with team and was cleared for HEPARIN appaers to have worsening aphasia , slight R hemiparesis family bedside - Past Medical History Cardio/Vascular: Yes: AFIB (on AC), Aortic Stenosis (s/p ring repair at 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 History of Recent Travel: No Home Medications - Allergies Allergies/Adverse Reactions: Allergies Allergy/AdvReac Type Severity Reaction Status Date / Time No Known Allergies Allergy Verified 07/16/17 16:49 - Home Medications Home Medications: Ambulatory Orders Amlodipine Besylate [Norvasc -] 10 mg PO DAILY 06/28/16 Aspirin [ASA -] 81 mg PO DAILY 06/28/16 Lisinopril 10 mg PO DAILY 06/28/16 Simvastatin 10 mg PO DAILY 06/28/16 Furosemide [Lasix -] 40 mg PO BID@0600,1400 #180 tablet 07/04/16 Insulin (Levemir) [Levemir Vial] 38 units SQ ACBK 07/03/17 Sitagliptin Phos/Metformin HCl [Janumet 50-1,000 mg Tablet] 1 each PO DAILY 04/21 Ascorbic Acid [Vitamin C -] 500 mg PO BID 30 Days #60 tablet MDD 2 07/10/17 Bacitracin - [Bacitracin Topical Ointment -] 1 applic TP BID tube 07/10/17 Ferrous Sulfate [Feosol] 325 mg PO BID #60 ud MDD 2 07/10/17 Warfarin Na [Coumadin -] 5 mg PO SuTuThSa@18 #0 tablet 07/10/17 Warfarin Na [Coumadin -] 6 mg PO MoWeFr@1800 #0 tablet 07/10/17 Metoprolol Succinate [Toprol XL -] 50 mg PO DAILY 07/17/17 Polyethylene Glycol 3350 [Miralax 119 gm Btl -] 17 gm PO BID PRN MDD 2 07/17/17 Family Disease History - Family Disease History Family Disease History: Heart Disease: Father ( [place] age 67), Mother ( CHF in her 70's) Physical Exam-Neuro Vital Signs: Vital Signs Temperature 99.3 F 07/17/17 08:06 Pulse Rate 115 H 07/17/17 09:00 Respiratory Rate 21 07/17/17 09:00 Blood Pressure 146/91 07/17/17 09:00 O2 Sat by Pulse Oximetry (%) 93 L 07/17/17 07:45 Labs: CBC, BMP 07/17/17 06:00 07/17/17 06:00 INR, PTT INR 1.60 (0.82-1.09) H D 07/16/17 17:15 - Neuro Exam Level Of Consciousness: Yes: Alert (awake, but poor attention , + expressive aphasia, mild Right hemiparesis F/A >L, R plantar up ) NIH Stroke Scale - Last Known Well Date/Time & Onset Date Last Known Well: 07/16/17 Time Last Known Well: 16:00 - Initial Evaluation Level of consciousness: Not alert, but arousable with minimal stimulation Ask patient the month and their age: Both incorrect Ask patient to open & close eyes; make fist and let go: Both incorrect Best gaze (horizontal eye movement): Normal Visual field testing: No visual field loss Facial paresis (Show teeth/raise eyebrows/close eyes tight): Partial paralysis ( total or near paralysis of lower face) Motor Function: Left Arm: Normal Motor Function: Right Arm: Drift Motor Function: Left Leg: Normal (extends leg 30 degrees for 5 seconds without drift) Motor Function: Right Leg: Normal (extends leg 30 degrees for 5 seconds without drift) Limb Ataxia: No ataxia Sensory(Use pinprick test arms,legs,trunk,face/side to side): Normal Best language (Describe picture, name items, read sentences): Severe aphasia Dysarthria (read several words): Near unintelligible or unable to speak Extinction and Inattention: No abnormality (12) - Total Score NIH Stroke Scale Score: 12 Assessment/Plan Hx/o A Fib on AC, recent GIB and anemia requiring PRBC transfusion and EGD/ colonoscopy (s/p four colon polyp resection), off Coumadin post colon polyp resection (was recently restarted in 07/13/17) , with new onset aphasia, dysarthria on 07/16/17 ound to have SUB TX INR in ER spoke to ER at the time, low NIH - HX of coumadin , recent GI bleed , no TPA given pt was diagnosed with TIA and was started on IV Heparin. HX of GI bleed--HX of GI bleed-- but risk/benefits discussed with team and was cleared for HEPARIN Sx progressed through out day L MCA STROKE -- from afib , sub TX INR, with expressive aphasia and mild R HEMIP ; NIH 12 on heparin check HD CT today and in AM , to ensure no hemorrhagic conversion FU H /H counts /GI status FU CARDIAC will need REHAB explained all to family DR MARIE
--- NOTE | 2017-07-17 09:52 | CON.CARD ---
Cardiology Consult (text) - Consultation Consultation Note: cc:difficulty speaking hpi: 77 f hx mv ring repair 2009, afib, dm, htn, ppm, hld, chf here with difficulty speaking. Recent admit for anemia, GIB. Polyps/ectasias found and coumadin held for 5 days. Yesterday noticed change in speech so brought to ER. Diagnosed with cva. Also with NSTEMI. Had some cp yesterday, nothing further this AM. Currently no cp, sob, palps, dizzy, pnd, orthopnea, le edema. No loc. Sees dr camejo at [facility] for cardio. pmh: per hpi psh: ppm, mv repair social: no tob fam: no premature cad, scd ros: per hpi; no nvd, wt loss, fever, gib, hematuria, dysuria meds: Ambulatory Orders Amlodipine Besylate [Norvasc -] 10 mg PO DAILY 06/28/16 Aspirin [ASA -] 81 mg PO DAILY 06/28/16 Lisinopril 10 mg PO DAILY 06/28/16 Simvastatin 10 mg PO DAILY 06/28/16 Furosemide [Lasix -] 40 mg PO BID@0600,1400 #180 tablet 07/04/16 Insulin (Levemir) [Levemir Vial] 38 units SQ ACBK 07/03/17 Sitagliptin Phos/Metformin HCl [Janumet 50-1,000 mg Tablet] 1 each PO DAILY 04/21 Ascorbic Acid [Vitamin C -] 500 mg PO BID 30 Days #60 tablet MDD 2 07/10/17 Bacitracin - [Bacitracin Topical Ointment -] 1 applic TP BID tube 07/10/17 Ferrous Sulfate [Feosol] 325 mg PO BID #60 ud MDD 2 07/10/17 Warfarin Na [Coumadin -] 5 mg PO SuTuThSa@18 #0 tablet 07/10/17 Warfarin Na [Coumadin -] 6 mg PO MoWeFr@1800 #0 tablet 07/10/17 Metoprolol Succinate [Toprol XL -] 50 mg PO DAILY 07/17/17 Polyethylene Glycol 3350 [Miralax 119 gm Btl -] 17 gm PO BID PRN MDD 2 07/17/17 pe: Vital Signs Temp 99.3 F 07/17/17 08:06 Pulse 115 H 07/17/17 09:00 Resp 21 07/17/17 09:00 BP 146/91 07/17/17 09:00 Pulse Ox 93 L 07/17/17 07:45 Intake & Output 07/16/17 07/16/17 07/17/17 11:59 23:59 11:59 Weight 185 lb 185 lb 6.54 oz Other: Voiding Method Toilet Bedpan Height 5 ft 1 in 5 ft 1 in Body Mass Index (BMI) 34.9 35.0 Weight Measurement Method Built in [facility] Weight Measurement Method Est/Stated by Patient nad no jvd irreg, tachy, s1s2 no mrg ctab, nl eff abd nt nd pos bs pos dp pt no carotid bruits no jaundice diaphoresis aaox3 no le edema bl, no c/c slurred speech Current Medications Generic Name Dose Route Start Last Admin Trade Name Freq PRN Reason Stop Dose Admin Heparin Sodium (Porcine) 1,000 unit 07/16/17 19:00 Heparin - IVPUSH PRN PRN Heparin Heparin Sodium (Porcine) 5,000 unit 07/16/17 19:00 Heparin - IVPUSH PRN PRN Heparin Heparin Sodium (Porcine) 25, 500 mls @ 20 mls/hr 07/16/17 19:00 07/17/17 04: 35 000 unit/ Sodium Chloride IV 1,000 unit/hr TITR BAHMAN 20 mls/hr Protocol Titration 1,000 UNIT/HR Dextrose/Sodium Chloride 1,000 mls @ 60 mls/hr 07/16/17 22:45 07/16/17 23:29 D5-Ns - IV 60 mls/hr ASDIR BAHMAN Administration Insulin Aspart 1 vial 07/16/17 22:45 07/17/17 05:13 Novolog Vial Sliding Scale - SQ 2 units Q6H BAHMAN Administration Protocol Metoprolol Tartrate 5 mg 07/16/17 22:39 07/17/17 05:45 Lopressor Injection - IVPUSH 5 mg Q4H PRN Administration TACHYCARDIA Laboratory Last Values WBC 13.0 K/mm3 (4.0-10.0) H 07/17/17 06:00 RBC 3.80 M/mm3 (3.60-5.2) 07/17/17 06:00 Hgb 9.0 GM/dL (10.7-15.3) L 07/17/17 06:00 Hct 29.2 % (32.4-45.2) L 07/17/17 06:00 MCV 76.9 fl (80-96) L 07/17/17 06:00 MCH 23.7 pg (25.7-33.7) L 07/17/17 06:00 MCHC 30.8 g/dl (32.0-36.0) L 07/17/17 06:00 RDW 20.8 % (11.6-15.6) H 07/17/17 06:00 Plt Count 228 K/MM3 (134-434) D 07/17/17 06:00 MPV 9.3 fl (7.5-11.1) 07/17/17 06:00 Neutrophils % 77.1 % (42.8-82.8) 07/16/17 17:15 Lymphocytes % 13.8 % (8-40) D 07/16/17 17:15 Monocytes % 7.2 % (3.8-10.2) 07/16/17 17:15 Eosinophils % 1.1 % (0-4.5) 07/16/17 17:15 Basophils % 0.8 % (0-2.0) 07/16/17 17:15 PT with INR 18.10 SEC (9.7-13.0) H 07/16/17 17:15 INR 1.60 (0.82-1.09) H D 07/16/17 17:15 PTT (Actin FS) 51.8 SECONDS (26.9-34.4) H D 07/17/17 03:17 Sodium 143 mmol/L (136-145) 07/17/17 06:00 Potassium 3.6 mmol/L (3.5-5.1) 07/17/17 06:00 Chloride 108 mmol/L (98-107) H 07/17/17 06:00 Carbon Dioxide 26 mmol/L (21-32) 07/17/17 06:00 Anion Gap 9 (8-16) 07/17/17 06:00 BUN 13 mg/dL (7-18) 07/17/17 06:00 Creatinine 0.7 mg/dL (0.55-1.02) 07/17/17 06:00 Creat Clearance w eGFR > 60 (>60) 07/17/17 06:00 POC Glucometer 151 UNITS (80-120) 07/17/17 05:09 Random Glucose 143 mg/dL (74-106) H 07/17/17 06:00 Calcium 8.1 mg/dL (8.5-10.1) L 07/17/17 06:00 Total Bilirubin 0.7 mg/dL (0.2-1.0) D 07/17/17 06:00 AST 40 U/L (15-37) H 07/17/17 06:00 ALT 19 U/L (12-78) 07/17/17 06:00 Alkaline Phosphatase 156 U/L (45-117) H 07/17/17 06:00 Creatine Kinase 136 IU/L (26-192) 07/17/17 06:00 Troponin I 11.60 ng/ml (0.00-0.05) H* 07/17/17 06:00 Total Protein 6.2 g/dl (6.4-8.2) L 07/17/17 06:00 Albumin 2.9 g/dl (3.4-5.0) L 07/17/17 06:00 Triglycerides 144 mg/dL (35-160) 07/16/17 17:15 Cholesterol 109 mg/dL (50-200) 07/16/17 17:15 Total LDL Cholesterol 58 mg/dL (5-100) 07/16/17 17:15 HDL Cholesterol 39 mg/dL (40-60) L 07/16/17 17:15 TSH 0.71 uIU/ml (0.358-3.74) 07/17/17 06:00 Free T4 1.53 ng/dl (0.76-1.46) H 07/17/17 06:00 Urine Color Yellow 07/16/17 18:00 Urine Appearance Slcloudy 07/16/17 18:00 Urine pH 5.0 (5.0-8.0) 07/16/17 18:00 Ur Specific [place] 1.023 (1.001-1.035) 07/16/17 18:00 Urine Protein 1+ (NEGATIVE) H 07/16/17 18:00 Urine Glucose (UA) Negative (NEGATIVE) 07/16/17 18:00 Urine Ketones Negative (NEGATIVE) 07/16/17 18:00 Urine Blood Negative (NEGATIVE) 07/16/17 18:00 Urine Nitrite Negative (NEGATIVE) 07/16/17 18:00 Urine Bilirubin Negative (<2.0 mg/dL) 07/16/17 18:00 Urine Urobilinogen Negative mg/dL (0.2-1.0) 07/16/17 18:00 Ur Leukocyte Esterase Trace (NEGATIVE) 07/16/17 18:00 Urine WBC (Auto) 7 /hpf (3-5) 07/16/17 18:00 Urine RBC (Auto) 1 /hpf (0-3) 07/16/17 18:00 Ur Epithelial Cells Rare /HPF (FEW) 07/16/17 18:00 Hyaline Casts 3 /lpf 07/16/17 18:00 Urine Mucus Rare 07/16/17 18:00 Blood Type O POSITIVE 07/16/17 17:15 Antibody Screen Negative 07/16/17 17:15 tele: afib, rate 110s ecg: afib rate 110s, nl qtc, no ischemic changes, nonspec st-t changes, no sig change from prior ecg earlier this month echo 06/2016: nl lv/rv, mild emmanuelle, mv ring, mod tr, mild phtn endoscopy 07/2017: Bleeding source appears to be vascular ectasias, likely in the small bowel as large cecal nonbleeding angiodysplasias were seen. 4 colon polyps were removed. Should have capsule endoscopy as outpatient. est cct 35 mins a/p: hpi: 77 f hx mv ring repair 2009, afib, dm, htn, ppm, hld, chf here with difficulty speaking. cva: -occurred in setting of holding coumadin for 5 days 2/2 gib and polypectomy -now back on ac with hep gtt -initial head ct unremarkable. has ppm so can't have mri. will likely need repeat ct to monitor. neuro following. NSTEMI: -no cp at present -ecg unchanged from prior -cont tele, check echo -cont hep gtt -when able to take po would start asa/plavix as well -will likely need cardiac cath after acute cva issues resolve anemia: -endoscopy 07/2017: Bleeding source appears to be vascular ectasias, likely in the small bowel. -hgb stable here chronic diastolic chf: -stable, resume po lasix 40 bid when taking po mv repair: -normal fcn on recent echo afib: -cont bb, getting iv for now as npo, cont tele -cont ac htn: -cont iv bb for now -resume home meds (toprol, norvasc, lisinopril) when taking po ppm: -ongoing outpt f/u hld: -cont home statin when taking po
--- NOTE | 2017-07-17 10:45 | PN ---
Progress Note, Physician History of Present Illness: Pt w/o SOB, CP, palpitations, weakness. Pt states that her speech is the same. Per pt family ( and daughter are at bedside) pt didn't rest much last night. - Current Medication List Current Medications: Active Medications Heparin Sodium (Porcine) (Heparin -) 1,000 unit IVPUSH PRN PRN PRN Reason: Heparin Heparin Sodium (Porcine) (Heparin -) 5,000 unit IVPUSH PRN PRN PRN Reason: Heparin Heparin Sodium (Porcine) 25, (000 unit/ Sodium Chloride) 500 mls @ 20 mls/hr IV TITR BAHMAN; 1,000 UNIT/HR PRN Reason: Protocol Last Titration: 07/17/17 04:35 Dose: 1,000 unit/hr, 20 mls/hr Dextrose/Sodium Chloride (D5-Ns -) 1,000 mls @ 60 mls/hr IV ASDIR BAHMAN Last Admin: 07/16/17 23:29 Dose: 60 mls/hr Insulin Aspart (Novolog Vial Sliding Scale -) 1 vial SQ Q6H BAHMAN PRN Reason: Protocol Last Admin: 07/17/17 05:13 Dose: 2 units Metoprolol Tartrate (Lopressor Injection -) 5 mg IVPUSH Q4H PRN PRN Reason: TACHYCARDIA Last Admin: 07/17/17 05:45 Dose: 5 mg - Objective Vital Signs: Vital Signs Temperature 99.3 F 07/17/17 08:06 Pulse Rate 113 H 07/17/17 10:00 Respiratory Rate 20 07/17/17 10:00 Blood Pressure 176/91 07/17/17 10:00 O2 Sat by Pulse Oximetry (%) 93 L 07/17/17 07:45 Constitutional: Yes: No Distress, Calm Cardiovascular: Yes: Tachycardia, S1, S2 Respiratory: Yes: Regular, CTA Bilaterally. No: Rales Gastrointestinal: Yes: Normal Bowel Sounds, Soft. No: Tenderness Edema: No Neurological: Yes: Alert, Oriented, Dysarthria, Facial Droop (slight right mouth corner droop), Weakness (mild right hand weakness comparing with last night examination, 4-5/5), Other (Symmetric sensory examination in UE/ LE/ face. Symmetric motor examination in LE.) Psychiatric: Yes: Alert, Oriented Labs: CBC, BMP 07/17/17 06:00 07/17/17 06:00 INR, PTT INR 1.60 (0.82-1.09) H D 07/16/17 17:15 Problem List - Problems (1) NSTEMI (non-ST elevated myocardial infarction) Code(s): I21.4 - NON-ST ELEVATION (NSTEMI) MYOCARDIAL INFARCTION (2) CVA (cerebral vascular accident) Code(s): I63.9 - CEREBRAL INFARCTION, UNSPECIFIED (3) Elevated troponin I level Code(s): R74.8 - ABNORMAL LEVELS OF OTHER SERUM ENZYMES (4) Anemia Code(s): D64.9 - ANEMIA, UNSPECIFIED Qualifiers: Iron deficiency anemia type: chronic blood loss Qualified Code(s): D50.0 - Iron deficiency anemia secondary to blood loss (chronic) (5) GIB (gastrointestinal bleeding) Code(s): K92.2 - GASTROINTESTINAL HEMORRHAGE, UNSPECIFIED Qualifiers: GI bleed type/associated pathology: unspecified gastrointestinal hemorrhage type Qualified Code(s): K92.2 - Gastrointestinal hemorrhage, unspecified (6) Atrial fibrillation Code(s): I48.91 - UNSPECIFIED ATRIAL FIBRILLATION (7) CAD (coronary artery disease) Code(s): I25.10 - ATHSCL HEART DISEASE OF [place] CORONARY ARTERY W/O ANG PCTRS (8) COPD (chronic obstructive pulmonary disease) Code(s): J44.9 - CHRONIC OBSTRUCTIVE PULMONARY DISEASE, UNSPECIFIED (9) Diabetes mellitus Code(s): E11.9 - TYPE 2 DIABETES MELLITUS WITHOUT COMPLICATIONS (10) HTN (hypertension) Code(s): I10 - ESSENTIAL (PRIMARY) HYPERTENSION (11) Hyperlipidemia Code(s): E78.5 - HYPERLIPIDEMIA, UNSPECIFIED (12) Lung nodule Code(s): R91.1 - SOLITARY PULMONARY NODULE (13) Pacemaker Code(s): Z95.0 - PRESENCE OF CARDIAC PACEMAKER Assessment/Plan Admitted to ICU IV Heparin Neurochecks Serial CE Neuro consult appreciated, case was d/w Dr. Sutherland; for Head CT scan today. Cardio Consult appreciated, case was d/w Dr. Davalos; to monitor CE, ECHO today. GI consult NPO. IVF. Speech/ swallow evaluation DVT proph. GI proph. AM labs. Pt's condition and treatment were reviewed with pt and pt's family (are at bedside). All questions were answered. Time spent for managing patient care: over 55 minutes.
--- NOTE | 2017-07-17 11:09 | EKG ---
Test Reason : Blood Pressure : / mmHG Vent. Rate : 111 BPM Atrial Rate : 120 BPM P-R Int : 000 ms QRS Dur : 078 ms QT Int : 284 ms P-R-T Axes : 000 046 106 degrees QTc Int : 386 ms ATRIAL FIBRILLATION WITH RAPID VENTRICULAR RESPONSE LOW VOLTAGE QRS NONSPECIFIC ST AND T WAVE ABNORMALITY ABNORMAL ECG WHEN COMPARED WITH ECG OF 03-JUL-2017 14:10, NO SIGNIFICANT CHANGE WAS FOUND Confirmed by ABRAHAM KAM, MENA ([id number]) on 07/17/2017 11:09:22 AM Referred By: Confirmed By:MENA ROSARIO MD
--- NOTE | 2017-07-17 12:17 | CON.GI ---
Consult Consult Specialty:: Gastroenterology Referred by:: Dr. Fischer Reason for Consultation:: Need for anticoagulation for CVA with h/o recent GI Bleed. - History of Present Illness Chief Complaint: Garbled speech and right sided weakness History of Present Illness: 77F developed garbles speech and RUE weakenss while shopping yesterday. Her coumain had been resumed on 07/13/17. It was interrupted when she presented with Hb drop and GI bleeding on 07/04/17. EGD on 07/08/17 revealed atrophic gastritis and no bleeding source. Colonoscopy on 07/08/17 led to the removal of 4 adenomatous polyps from the transverse colon. The study also revealed nonbleeding cecal angiodysplasias and mild diverticulosis in the sigmoid. Her anemia was felt to reflect resolved bleeding from small bowel vascular ectasias and a capsule endoscopy was advised as an outpatient. He coumadion hasd to be held to allow the polypectomy sites to heal. - History Source History Provided By: Family Member, Medical Record Limitations to Obtaining History: Clinical Condition - Past Medical History Cardio/Vascular: Yes: AFIB (on AC), Aortic Stenosis (s/p ring repair at [facility]), CAD, HTN, Mitral Insufficiency (MVR 2009 [facility]), Other (PPM) Pulmonary: Yes: COPD Gastrointestinal: Yes: Diverticulosis, GI Bleed (recent bleed felt 2ndary to vascular ectasias), Other (07/19 four adenomatous tx colon polyps resected, cecal angiodysplasias seen) ...: No Rheumatology: Yes: Other (osteoarthritis) Endocrine: Yes: Diabetes Mellitus - Past Surgical History Past Surgical History: Yes: Colonoscopy, Upper Endoscopy Additional Surgical History: Mitral valve replacement 2009. right foot surgery. 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 History of Recent Travel: No Home Medications - Allergies Allergies/Adverse Reactions: Allergies Allergy/AdvReac Type Severity Reaction Status Date / Time No Known Allergies Allergy Verified 07/16/17 16:49 - Home Medications Home Medications: Ambulatory Orders Amlodipine Besylate [Norvasc -] 10 mg PO DAILY 06/28/16 Aspirin [ASA -] 81 mg PO DAILY 06/28/16 Lisinopril 10 mg PO DAILY 06/28/16 Simvastatin 10 mg PO DAILY 06/28/16 Furosemide [Lasix -] 40 mg PO BID@0600,1400 #180 tablet 07/04/16 Insulin (Levemir) [Levemir Vial] 38 units SQ ACBK 07/03/17 Sitagliptin Phos/Metformin HCl [Janumet 50-1,000 mg Tablet] 1 each PO DAILY 04/21 Ascorbic Acid [Vitamin C -] 500 mg PO BID 30 Days #60 tablet MDD 2 07/10/17 Bacitracin - [Bacitracin Topical Ointment -] 1 applic TP BID tube 07/10/17 Ferrous Sulfate [Feosol] 325 mg PO BID #60 ud MDD 2 07/10/17 Warfarin Na [Coumadin -] 5 mg PO SuTuThSa@18 #0 tablet 07/10/17 Warfarin Na [Coumadin -] 6 mg PO MoWeFr@1800 #0 tablet 07/10/17 Metoprolol Succinate [Toprol XL -] 50 mg PO DAILY 07/17/17 Polyethylene Glycol 3350 [Miralax 119 gm Btl -] 17 gm PO BID PRN MDD 2 07/17/17 Family Disease History - Family Disease History Family Disease History: Heart Disease: Father ( [place] age 67), Mother ( CHF in her 70's) Review of Systems Unable to obtain ROS, reason: due to CVA Physical Exam-GI Vital Signs: Vital Signs Temperature 99.1 F 07/17/17 10:00 Pulse Rate 126 H 07/17/17 11:56 Respiratory Rate 20 07/17/17 11:21 Blood Pressure 147/84 07/17/17 11:56 O2 Sat by Pulse Oximetry (%) 93 L 07/17/17 07:45 CBC,CMP WBC 13.0 K/mm3 (4.0-10.0) H 07/17/17 06:00 RBC 3.80 M/mm3 (3.60-5.2) 07/17/17 06:00 Hgb 9.0 GM/dL (10.7-15.3) L 07/17/17 06:00 Hct 29.2 % (32.4-45.2) L 07/17/17 06:00 MCV 76.9 fl (80-96) L 07/17/17 06:00 MCH 23.7 pg (25.7-33.7) L 07/17/17 06:00 MCHC 30.8 g/dl (32.0-36.0) L 07/17/17 06:00 RDW 20.8 % (11.6-15.6) H 07/17/17 06:00 Plt Count 228 K/MM3 (134-434) D 07/17/17 06:00 MPV 9.3 fl (7.5-11.1) 07/17/17 06:00 Neutrophils % 77.1 % (42.8-82.8) 07/16/17 17:15 Lymphocytes % 13.8 % (8-40) D 07/16/17 17:15 Monocytes % 7.2 % (3.8-10.2) 07/16/17 17:15 Eosinophils % 1.1 % (0-4.5) 07/16/17 17:15 Basophils % 0.8 % (0-2.0) 07/16/17 17:15 Sodium 143 mmol/L (136-145) 07/17/17 06:00 Potassium 3.6 mmol/L (3.5-5.1) 07/17/17 06:00 Chloride 108 mmol/L (98-107) H 07/17/17 06:00 Carbon Dioxide 26 mmol/L (21-32) 07/17/17 06:00 Anion Gap 9 (8-16) 07/17/17 06:00 BUN 13 mg/dL (7-18) 07/17/17 06:00 Creatinine 0.7 mg/dL (0.55-1.02) 07/17/17 06:00 Creat Clearance w eGFR > 60 (>60) 07/17/17 06:00 POC Glucometer 151 UNITS (80-120) 07/17/17 05:09 Random Glucose 143 mg/dL (74-106) H 07/17/17 06:00 Calcium 8.1 mg/dL (8.5-10.1) L 07/17/17 06:00 Total Bilirubin 0.7 mg/dL (0.2-1.0) D 05/16/18 06:00 AST 40 U/L (15-37) H 07/17/17 06:00 ALT 19 U/L (12-78) 07/17/17 06:00 Alkaline Phosphatase 156 U/L (45-117) H 07/17/17 06:00 Creatine Kinase 136 IU/L (26-192) 07/17/17 06:00 Troponin I 11.60 ng/ml (0.00-0.05) H* 07/17/17 06:00 Total Protein 6.2 g/dl (6.4-8.2) L 07/17/17 06:00 Albumin 2.9 g/dl (3.4-5.0) L 07/17/17 06:00 Triglycerides 144 mg/dL (35-160) 07/16/17 17:15 Cholesterol 109 mg/dL (50-200) 07/16/17 17:15 Total LDL Cholesterol 58 mg/dL (5-100) 07/16/17 17:15 HDL Cholesterol 39 mg/dL (40-60) L 07/16/17 17:15 TSH 0.71 uIU/ml (0.358-3.74) 07/17/17 06:00 Free T4 1.53 ng/dl (0.76-1.46) H 07/17/17 06:00 Current Medications Generic Name Dose Route Start Last Admin Trade Name Freq PRN Reason Stop Dose Admin Heparin Sodium (Porcine) 1,000 unit 07/16/17 19:00 Heparin - IVPUSH PRN PRN Heparin Heparin Sodium (Porcine) 5,000 unit 07/16/17 19:00 Heparin - IVPUSH PRN PRN Heparin Heparin Sodium (Porcine) 25, 500 mls @ 20 mls/hr 07/16/17 19:00 07/17/17 04: 35 000 unit/ Sodium Chloride IV 1,000 unit/hr TITR BAHMAN 20 mls/hr Protocol Titration 1,000 UNIT/HR Dextrose/Sodium Chloride 1,000 mls @ 60 mls/hr 07/16/17 22:45 07/16/17 23:29 D5-Ns - IV 60 mls/hr ASDIR BAHMAN Administration Insulin Aspart 1 vial 07/16/17 22:45 07/17/17 05:13 Novolog Vial Sliding Scale - SQ 2 units Q6H BAHMAN Administration Protocol Metoprolol Tartrate 5 mg 07/16/17 22:39 07/17/17 11:56 Lopressor Injection - IVPUSH 5 mg Q4H PRN Administration TACHYCARDIA Pantoprazole Sodium 40 mg 07/17/17 11:30 Protonix Iv IVPUSH DAILY BAHMAN Constitutional: Yes: Anxious Eyes: Yes: Conjunctiva Clear HENT: Yes: Normocephalic Neck: Yes: Supple Cardiovascular: Yes: Pulse Irregular, Other (left PPM) Respiratory: Yes: CTA Bilaterally Gastrointestinal Inspection: Yes: WNL ...Auscultate: Yes: Normoactive Bowel Sounds ...Palpate: Yes: Soft, Other (nontender) ...Rectal Exam: Yes: Guaiac Positive (brown formed trace guaiac positive stool) Neurological: Yes: Dysarthria, Facial Droop (right), Weakness (RUE) Labs: CBC, BMP 07/17/17 06:00 07/17/17 06:00 INR, PTT INR 1.60 (0.82-1.09) H D 07/16/17 17:15 Problem List - Problems (1) GIB (gastrointestinal bleeding) Assessment/Plan: Despite the occult GI bleeding anticoagulation needs to be given to try to reverse the CVA deficits. Would stay within the therapeutic range. Her polypectomy sites hsould be adequately healed and her occult bleeding is likely from vascular ectasia in the cecum and small bowel. If major bleeding ensues a CTA will become indicated. A PPI should be given to protect against stress gastritis developing. I have discussed the situation with Mikayla's who is at her bedside. Code(s): K92.2 - GASTROINTESTINAL HEMORRHAGE, UNSPECIFIED Qualifiers: GI bleed type/associated pathology: unspecified gastrointestinal hemorrhage type Qualified Code(s): K92.2 - Gastrointestinal hemorrhage, unspecified (2) Diverticulosis Code(s): K57.90 - DVRTCLOS OF INTEST, PART UNSP, W/O PERF OR ABSCESS W/O BLEED (3) CVA (cerebral vascular accident) Code(s): I63.9 - CEREBRAL INFARCTION, UNSPECIFIED (4) Angiodysplasia of colon with hemorrhage Code(s): K55.21 - ANGIODYSPLASIA OF COLON WITH HEMORRHAGE (5) Colon adenomas Code(s): D12.6 - BENIGN NEOPLASM OF COLON, UNSPECIFIED
--- NOTE | 2017-07-17 12:18 | PN ---
Physical Exam: SUBJECTIVE: Patient seen and examined OBJECTIVE: Vital Signs Period Temp Pulse Resp BP Sys/[place] Pulse Ox Last 24 Hr 98.1 F-99.3 F 89-130 18-28 126-176/60-122 93-98 GENERAL: The patient is awake, alert, and fully oriented, in no acute distress. HEAD: Normal with no signs of trauma. EYES: PERRL, extraocular movements intact, sclera anicteric, conjunctiva clear. No ptosis. ENT: Ears normal, nares patent, oropharynx clear without exudates, moist mucous membranes. NECK: Trachea midline, full range of motion, supple. LUNGS: Breath sounds equal, clear to auscultation bilaterally, no wheezes, no crackles, no accessory muscle use. HEART: Regular rate and rhythm, S1, S2 without murmur, rub or gallop. ABDOMEN: Soft, nontender, nondistended, normoactive bowel sounds, no guarding, no rebound, no hepatosplenomegaly, no masses. EXTREMITIES: 2+ pulses, warm, well-perfused, no edema. NEUROLOGICAL: Cranial nerves II through XII grossly intact. Normal speech, gait not observed. PSYCH: Normal mood, normal affect. SKIN: Warm, dry, normal turgor, no rashes or lesions noted Laboratory Results - last 24 hr 07/16/17 07/16/17 07/16/17 17:15 17:15 17:15 WBC 10.1 H D RBC 4.28 D Hgb 9.9 L D Hct 32.9 D MCV 77.0 L MCH 23.2 L MCHC 30.2 L RDW 19.6 H D Plt Count 297 D MPV 8.7 Neutrophils % 77.1 Lymphocytes % 13.8 D Monocytes % 7.2 Eosinophils % 1.1 Basophils % 0.8 PT with INR 18.10 H INR 1.60 H D PTT (Actin FS) Sodium 141 Potassium 4.1 Chloride 104 Carbon Dioxide 28 Anion Gap 9 BUN 19 H Creatinine 1.2 H Creat Clearance w eGFR 43.80 POC Glucometer Random Glucose 152 H Calcium 8.8 Total Bilirubin 0.4 AST 31 ALT 22 Alkaline Phosphatase 197 H Creatine Kinase 100 Troponin I 3.00 H* Total Protein 7.3 Albumin 3.3 L Triglycerides 144 Cholesterol 109 Total LDL Cholesterol 58 HDL Cholesterol 39 L TSH Free T4 Urine Color Urine Appearance Urine pH Ur Specific Convent Urine Protein Urine Glucose (UA) Urine Ketones Urine Blood Urine Nitrite Urine Bilirubin Urine Urobilinogen Ur Leukocyte Esterase Urine WBC (Auto) Urine RBC (Auto) Ur Epithelial Cells Hyaline Casts Urine Mucus Blood Type Antibody Screen 07/16/17 07/16/17 07/16/17 17:15 18:00 19:56 WBC RBC Hgb Hct MCV MCH MCHC RDW Plt Count MPV Neutrophils % Lymphocytes % Monocytes % Eosinophils % Basophils % PT with INR INR PTT (Actin FS) Sodium Potassium Chloride Carbon Dioxide Anion Gap BUN Creatinine Creat Clearance w eGFR POC Glucometer 83.07614 Random Glucose Calcium Total Bilirubin AST ALT Alkaline Phosphatase Creatine Kinase Troponin I Total Protein Albumin Triglycerides Cholesterol Total LDL Cholesterol HDL Cholesterol TSH Free T4 Urine Color Yellow Urine Appearance Slcloudy Urine pH 5.0 Ur Specific Convent 1.023 Urine Protein 1+ H Urine Glucose (UA) Negative Urine Ketones Negative Urine Blood Negative Urine Nitrite Negative Urine Bilirubin Negative Urine Urobilinogen Negative Ur Leukocyte Esterase Trace Urine WBC (Auto) 7 Urine RBC (Auto) 1 Ur Epithelial Cells Rare Hyaline Casts 3 Urine Mucus Rare Blood Type O POSITIVE Antibody Screen Negative 07/16/17 07/17/17 07/17/17 23:16 03:17 05:09 WBC RBC Hgb Hct MCV MCH MCHC RDW Plt Count MPV Neutrophils % Lymphocytes % Monocytes % Eosinophils % Basophils % PT with INR INR PTT (Actin FS) 51.8 H D Sodium Potassium Chloride Carbon Dioxide Anion Gap BUN Creatinine Creat Clearance w eGFR POC Glucometer 151 Random Glucose Calcium Total Bilirubin AST ALT Alkaline Phosphatase Creatine Kinase 149 Troponin I 9.20 H* Total Protein Albumin Triglycerides Cholesterol Total LDL Cholesterol HDL Cholesterol TSH Free T4 Urine Color Urine Appearance Urine pH Ur Specific Convent Urine Protein Urine Glucose (UA) Urine Ketones Urine Blood Urine Nitrite Urine Bilirubin Urine Urobilinogen Ur Leukocyte Esterase Urine WBC (Auto) Urine RBC (Auto) Ur Epithelial Cells Hyaline Casts Urine Mucus Blood Type Antibody Screen 07/17/17 07/17/17 07/17/17 06:00 06:00 06:00 WBC 13.0 H RBC 3.80 Hgb 9.0 L Hct 29.2 L MCV 76.9 L MCH 23.7 L MCHC 30.8 L RDW 20.8 H Plt Count 228 D MPV 9.3 Neutrophils % Lymphocytes % Monocytes % Eosinophils % Basophils % PT with INR INR PTT (Actin FS) Sodium 143 Potassium 3.6 Chloride 108 H Carbon Dioxide 26 Anion Gap 9 BUN 13 Creatinine 0.7 Creat Clearance w eGFR > 60 POC Glucometer Random Glucose 143 H Calcium 8.1 L Total Bilirubin 0.7 D AST 40 H ALT 19 Alkaline Phosphatase 156 H Creatine Kinase 136 Troponin I 11.60 H* Total Protein 6.2 L Albumin 2.9 L Triglycerides Cholesterol Total LDL Cholesterol HDL Cholesterol TSH 0.71 Free T4 1.53 H Urine Color Urine Appearance Urine pH Ur Specific Convent Urine Protein Urine Glucose (UA) Urine Ketones Urine Blood Urine Nitrite Urine Bilirubin Urine Urobilinogen Ur Leukocyte Esterase Urine WBC (Auto) Urine RBC (Auto) Ur Epithelial Cells Hyaline Casts Urine Mucus Blood Type Antibody Screen Active Medications Generic Name Dose Route Start Last Admin Trade Name Freq PRN Reason Stop Dose Admin Heparin Sodium (Porcine) 1,000 unit 07/16/17 19:00 Heparin - IVPUSH PRN PRN Heparin Heparin Sodium (Porcine) 5,000 unit 07/16/17 19:00 Heparin - IVPUSH PRN PRN Heparin Heparin Sodium (Porcine) 25, 500 mls @ 20 mls/hr 07/16/17 19:00 07/17/17 04: 35 000 unit/ Sodium Chloride IV 1,000 unit/hr TITR BAHMAN 20 mls/hr Protocol Titration 1,000 UNIT/HR Dextrose/Sodium Chloride 1,000 mls @ 60 mls/hr 07/16/17 22:45 07/16/17 23:29 D5-Ns - IV 60 mls/hr ASDIR BAHMAN Administration Insulin Aspart 1 vial 07/16/17 22:45 07/17/17 05:13 Novolog Vial Sliding Scale - SQ 2 units Q6H BAHMAN Administration Protocol Metoprolol Tartrate 5 mg 07/16/17 22:39 07/17/17 11:56 Lopressor Injection - IVPUSH 5 mg Q4H PRN Administration TACHYCARDIA Pantoprazole Sodium 40 mg 07/17/17 11:30 Protonix Iv IVPUSH DAILY [facility] ASSESSMENT/PLAN:
--- NOTE | 2017-07-17 12:43 | CONSULT ---
Admitting History and Physical - Primary Care Physician PCP: Caleb Fischer - Admission History of Present Illness: Per EMR: Hx/o A Fib on AC, recent GIB and anemia requiring PRBC transfusion and EGD/ colonoscopy (s/p four colon polyp resection), off Coumadin post colon polyp resection (was recently restarted in 07/13/17) , with new onset aphasia, dysarthria on 07/16/17 Found to have SUB TX INR in ER spoke to ER at the time, low NIH - HX of coumadin , recent GI bleed , no TPA given pt was diagnosed with TIA and was started on IV Heparin. HX of GI bleed--HX of GI bleed-- but risk/benefits discussed with team and was cleared for HEPARIN Sx progressed through out day L MCA STROKE History Source: Family Member, Medical Record Limitations to Obtaining History: Clinical Condition - Past Medical History Cardiovascular: Yes: AFIB (on AC), Aortic Stenosis (s/p ring repair at [facility]), CAD , HTN, Mitral Insufficiency (MVR 2009 [facility]), Other (PPM) Pulmonary: Yes: COPD Gastrointestinal: Yes: Diverticulosis, GI Bleed (recent bleed felt 2ndary to vascular ectasias), Other (07/19 four adenomatous tx colon polyps resected, cecal angiodysplasias seen) ...: No Heme/Onc: Yes: Anemia Rheumatology: Yes: Other (osteoarthritis) Endocrine: Yes: Diabetes Mellitus - Past Surgical History Past Surgical History: Yes: Colonoscopy, Upper Endoscopy - Smoking History Smoking history: Former smoker Have you smoked in the past 12 months: No If you are a former smoker, when did you quit?: 2007 - Alcohol/Substance Use Hx Alcohol Use: No History of Substance Use: reports: None - Social History ADL: Independent 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 History of Recent Travel: No History - Admission Reason For Visit: CEREBROVASCULAR ACCIDENT(CVA) - Diagnostics X-ray: Report Reviewed CT Scan: Report Reviewed - General Mental Status: Awake and Alert Attention: Mild Impairment Ability to Follow Directions: Fair (intermittent, single step commands) - Hearing Hearing: Functional Hearing Aide: No Speech Evaluation - Communication Primary Language: UGAND[place] Communication: Yes: Dysarthria, Aphasia Oral Expression Ability: Yes: Moderate Impairment, Severe Impairment - Speech Production Apraxia: Yes Able to Make Needs Known: Yes: Severely Impaired Intelligibility: Yes: Severely Impaired - Speech Characteristics Voice Loudness: Mildly Soft/Quiet Voice Pitch: Yes: Normal Voice Phonatory-based Quality: Yes: Dysphonia Speech Pattern: Impaired Speech Clarity: < 25% Articulation: Yes: Imprecise - Language/Auditory Comprehension Observation: Able to respond to yes/no queries: Yes (70% accuracy on simple level), Yes/No Confusion: Yes (intermittent), Comprehends Conversational Speech : Yes (social speech, simple with getur), Benefits from Slow Speech: Yes, Benefits from Repetiton: Yes - Language/Verbal Expression Aphasia: Yes: Nonfluent, Anomia, Impaired Repetition, Apraxia, Sound Errors Able to Respond to Simple Queries: Yes: Severely Impaired Able to Communicate Wants and Needs: Yes: Severely Impaired Functional Communication Status: Yes: Severely Impaired Aware of Errors: No Attempts to Correct Errors: No Use of Gestures: No - Swallow Evaluation/Bedside Assessment Current Nutritional Intake: NPO Dentition: Yes: Missing Teeth Facial Symmetry at Rest: Facial Droop Right Laryngeal Elevation: Impaired Laryngeal Movement: Reduced Excursion, Labored,delay initiation, Reduced Velocity Rate of Intake: Slow/Holding Labial Seal: Impaired Right Oral Prep Time: Increased A-P Transit: Impaired Pocketing: Present Right Timing of Swallow: Delayed Coughing/Throat Clear: No (thin liquid) Recommendations - Speech Evaluation, Impression/Plan Impression: Moderate to Severe expressive Aphasia and Moderate receptive deficits. Rare intelligible words produced initially. Following practice, a couple of words and phrase I LOVE YOU elicited, with Apraxic/paraphasic errors. Unable to respond to simple questions. Impaired awareness with lack of frustation.Cooperative. Swallowing quite delayed and dyscoordination, at times absent, with moderate risk of aspiration. - Disposition Discharge to: [facility] - Dysphagia Impressions/Plan Swallowing Skills: Impaired Dysphagia Impressions: Moderate Impairment, Severe Impairment, Suspect Aspiration *Silent aspiration: cannot be R/O at bedside Dysphagia Treatment Plan: Other (Elevate [facility], [facility] care.) Recommendations: Modified Barium Swallow (when stronger- 07/18?), Other (Family educated at length on Aphasia, and ways to maximize communication, and on Dysphagia.) - Recommendations Diet Consistency: NPO Medication Administration: Crushed with applesauce (if needed) Liquids: NPO
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
--- NOTE | 2017-07-17 12:57 | PN ---
Teaching Attending Note Name of Resident: Moose Navarro ATTENDING PHYSICIAN STATEMENT I saw and evaluated the patient. I reviewed the resident's note and discussed the case with the resident. I agree with the resident's findings and plan as documented. SUBJECTIVE: Pt seen and examined in the ICU. Briefly, 77yo female with h/o HTN, DM, hyperlipidemia, atrial fibrillation s/p PPM, h/o MV ring repair, LV diastolic dysfunction, recent admission for GI bleed found to have small bowel ectasias and cecal angiodysplasias taken off anticoagulation during the admission but was restarted few days ago who was admitted with dysarthria and aphasa. Apparently reported some chest pain yesterday. Not a tPA candidate due to anticoagulation. Currently in the ICU, aphasic. OBJECTIVE: Last Vital Signs Temp Pulse Resp BP Pulse Ox 99.1 F 126 H 20 147/84 93 L 07/17/17 10:00 07/17/17 11:56 07/17/17 11:21 07/17/17 11:56 07/17/17 07:45 Intake & Output 07/14/17 07/15/17 07/16/17 07/17/17 23:59 23:59 23:59 23:59 Weight 83.915 kg 84.1 kg Gen: aphasic Heart: tachycardic, irregular Lung: decreased breath sounds at the bases Abd: soft, nontender Ext: no edema CBC, BMP 07/17/17 06:00 07/17/17 06:00 Troponin, BNP 07/16/17 07/16/17 07/17/17 17:15 23:16 06:00 Troponin I 3.00 H* 9.20 H* 11.60 H* Active Medications Heparin Sodium (Porcine) (Heparin -) 1,000 unit IVPUSH PRN PRN PRN Reason: Heparin Heparin Sodium (Porcine) (Heparin -) 5,000 unit IVPUSH PRN PRN PRN Reason: Heparin Heparin Sodium (Porcine) 25, (000 unit/ Sodium Chloride) 500 mls @ 20 mls/hr IV TITR BAHMAN; 1,000 UNIT/HR PRN Reason: Protocol Last Titration: 07/17/17 04:35 Dose: 1,000 unit/hr, 20 mls/hr Dextrose/Sodium Chloride (D5-Ns -) 1,000 mls @ 60 mls/hr IV ASDIR BAHMAN Last Admin: 07/16/17 23:29 Dose: 60 mls/hr Insulin Aspart (Novolog Vial Sliding Scale -) 1 vial SQ Q6H BAHMAN PRN Reason: Protocol Last Admin: 07/17/17 05:13 Dose: 2 units Metoprolol Tartrate (Lopressor Injection -) 5 mg IVPUSH Q4H PRN PRN Reason: TACHYCARDIA Last Admin: 07/17/17 11:56 Dose: 5 mg Pantoprazole Sodium (Protonix Iv) 40 mg IVPUSH DAILY [facility] ASSESSMENT AND PLAN: Acute CVA Acute NSTEMI LV Diastolic Dysfunction Atrial Fibrillation with RVR s/p PPM HTN DM Hyperlipidemia h/o GI Bleed Anemia - continue anticoagulation - trend cardiac enzymes - monitor H/H - echocardiogram - rate control - allow permissive hypertension - monitor CT head per neuro - will need cardiac cath when stable - ICU monitoring critical care time spent in reviewing chart, evaluating patient and formulating plan 35 min
[2017-07-17 15:40] LABS: BASO % 0.4 % (0-2.0); EOS % 0.1 % (0-4.5); HEMOGLOBIN 8.7 GM/dL (10.7-15.3); LYMPH % 9.6 % (8-40); MCH 23.2 pg (25.7-33.7); MCHC 30.1 g/dl (32.0-36.0); MEAN CELL VOLUME 77.3 fl (80-96); MEAN PLT VOLUME 8.9 fl (7.5-11.1); NEUT % 82.9 % (42.8-82.8); PLATELET COUNT 250 K/MM3 (134-434); RBC 3.75 M/mm3 (3.60-5.2); RDW 19.7 % (11.6-15.6); WHITE BLOOD COUNT 11.6 K/mm3 (4.0-10.0)
[2017-07-17] MEDS: PANTOPRAZOLE SODIUM 40 MG VIAL IVPUSH SCH (16:50)
[2017-07-17] MEDS: HEPARIN - 25,000 UNIT in SODIUM CHLORIDE 495 ML IV SCH ×2 (17:04→19:30)
[2017-07-17] MEDS: DEXTROSE 5%-NORMAL SALINE 1,000 ML IV SCH (17:24)
[2017-07-18] MEDS: INSULIN SLIDING SCALE (NOVOLOG) 1 VIAL SQ SCH ×7 (01:10→21:24)
[2017-07-18] MEDS: DEXTROSE 5%-NORMAL SALINE 1,000 ML IV SCH (01:11)
[2017-07-18] MEDS: METOPROLOL TARTRATE 5 MG/5 ML VIAL IVPUSH PRN (03:00)
[2017-07-18 06:53] LABS: BASO % 0.5 % (0-2.0); EOS % 0.4 % (0-4.5); HEMATOCRIT 29.2 % (32.4-45.2); HEMOGLOBIN 9.2 GM/dL (10.7-15.3); LYMPH % 13.2 % (8-40); MCHC 31.4 g/dl (32.0-36.0); MEAN CELL VOLUME 76.5 fl (80-96); MEAN PLT VOLUME 8.7 fl (7.5-11.1); MONO % 7.6 % (3.8-10.2); NEUT % 78.3 % (42.8-82.8); PLATELET COUNT 259 K/MM3 (134-434); RBC 3.81 M/mm3 (3.60-5.2); RDW 19.9 % (11.6-15.6); WHITE BLOOD COUNT 10.3 K/mm3 (4.0-10.0)
[2017-07-18 07:18] LABS: CHLORIDE 111 mmol/L (98-107); POTASSIUM 3.9 mmol/L (3.5-5.1); SODIUM 144 mmol/L (136-145)
--- NOTE | 2017-07-18 09:29 | PN ---
Progress Note, Physician History of Present Illness: Pt w/o SOB, CP, palpitations. Pt with right hand weakness, cannot speak Pt's is at bedside, - Current Medication List Current Medications: Active Medications Heparin Sodium (Porcine) (Heparin -) 1,000 unit IVPUSH PRN PRN PRN Reason: Heparin Heparin Sodium (Porcine) (Heparin -) 5,000 unit IVPUSH PRN PRN PRN Reason: Heparin Heparin Sodium (Porcine) 25, (000 unit/ Sodium Chloride) 500 mls @ 20 mls/hr IV TITR BAHMAN; 1,000 UNIT/HR PRN Reason: Protocol Last Titration: 07/18/17 09:10 Dose: 0 unit/hr, 0 mls/hr Insulin Aspart (Novolog Vial Sliding Scale -) 1 vial SQ Q4H BAHMAN PRN Reason: Protocol Last Admin: 07/18/17 06:30 Dose: 2 units Metoprolol Tartrate (Lopressor Injection -) 5 mg IVPUSH Q4H PRN PRN Reason: TACHYCARDIA Last Admin: 07/18/17 03:00 Dose: 5 mg Pantoprazole Sodium (Protonix Iv) 40 mg IVPUSH DAILY [facility] Last Admin: 07/17/17 16:50 Dose: 40 mg - Objective Vital Signs: Vital Signs Temperature 98.2 F 07/18/17 02:00 Pulse Rate 124 H 07/18/17 08:00 Respiratory Rate 22 07/18/17 08:00 Blood Pressure 147/97 07/18/17 08:00 O2 Sat by Pulse Oximetry (%) 95 07/17/17 20:59 Constitutional: Yes: No Distress, Calm Neck: Yes: Trachea Midline Cardiovascular: Yes: Regular Rate and Rhythm, S1, S2 Respiratory: Yes: Regular, CTA Bilaterally. No: Rales Gastrointestinal: Yes: Normal Bowel Sounds, Soft. No: Tenderness Edema: No Neurological: Yes: Alert, Oriented, Aphasia, Weakness (Right hand 3-4/5; right leg 4/5), Other Labs: CBC, BMP 07/18/17 06:10 07/18/17 06:10 INR, PTT INR 1.60 (0.82-1.09) H D 07/16/17 17:15 - ....Imaging Cat Scan: Report Reviewed (last night and today Head CT scans were noted) Problem List - Problems (1) Brain bleed Assessment/Plan: Pt's condition and treatment was reviewed with pt's . Risks associated with intracranial bleed were reviewed with her ; all questions were answered. Risks associated with lack of anticoagulation ( stopping Heparin) in a patient with A fib and acute heart attack were reviewed with her ; all questions were answered. He agrees that best approach for now is to hold Heparin. To stop heparin, to f/u with Neurology. To repeate head CT scan tomorrow. Code(s): I61.9 - NONTRAUMATIC INTRACEREBRAL HEMORRHAGE, UNSPECIFIED (2) NSTEMI (non-ST elevated myocardial infarction) Code(s): I21.4 - NON-ST ELEVATION (NSTEMI) MYOCARDIAL INFARCTION (3) CVA (cerebral vascular accident) Code(s): I63.9 - CEREBRAL INFARCTION, UNSPECIFIED (4) Elevated troponin I level Code(s): R74.8 - ABNORMAL LEVELS OF OTHER SERUM ENZYMES (5) Anemia Code(s): D64.9 - ANEMIA, UNSPECIFIED Qualifiers: Iron deficiency anemia type: chronic blood loss (6) GIB (gastrointestinal bleeding) Code(s): K92.2 - GASTROINTESTINAL HEMORRHAGE, UNSPECIFIED Qualifiers: GI bleed type/associated pathology: unspecified gastrointestinal hemorrhage type Qualified Code(s): K92.2 - Gastrointestinal hemorrhage, unspecified (7) Atrial fibrillation Code(s): I48.91 - UNSPECIFIED ATRIAL FIBRILLATION (8) CAD (coronary artery disease) Code(s): I25.10 - ATHSCL HEART DISEASE OF [place] CORONARY ARTERY W/O ANG PCTRS (9) COPD (chronic obstructive pulmonary disease) Code(s): J44.9 - CHRONIC OBSTRUCTIVE PULMONARY DISEASE, UNSPECIFIED (10) Diabetes mellitus Code(s): E11.9 - TYPE 2 DIABETES MELLITUS WITHOUT COMPLICATIONS (11) HTN (hypertension) Code(s): I10 - ESSENTIAL (PRIMARY) HYPERTENSION (12) Hyperlipidemia Code(s): E78.5 - HYPERLIPIDEMIA, UNSPECIFIED (13) Lung nodule Code(s): R91.1 - SOLITARY PULMONARY NODULE (14) Pacemaker Code(s): Z95.0 - PRESENCE OF CARDIAC PACEMAKER Assessment/Plan Admitted to ICU IV Heparin was started on admission. To stop heparin secondary to intracranial bleed; to f/u with Neuro and Cardio. Neurochecks To monitor CE Neuro, Cardio, GI, Speech/ swallow consults and f/u appreciated, NPO. IVF. DVT proph. GI proph. AM labs. Pt's condition and treatment were reviewed with pt's at bedside. All questions were answered. Prognosis: reserved Time spent for managing patient care: over 40 minutes.
[2017-07-18] MEDS ORDERED: ASPIRIN 81 MG CHEWABLE TABLETS PO SCH (10:00)
[2017-07-18 10:46] LABS: ALBUMIN 2.9 g/dl (3.4-5.0); ANION GAP 9 (8-16); BLOOD UREA NITROGEN 8 mg/dL (7-18); CALCIUM 8.2 mg/dL (8.5-10.1); CO2 24 mmol/L (21-32); CREATININE 0.7 mg/dL (0.55-1.02); GLUCOSE,RANDOM 136 mg/dL (74-106); MAGNESIUM 2.3 mg/dL (1.8-2.4); SGOT/AST 25 U/L (15-37); SGPT/ALT 16 U/L (12-78)
[2017-07-18 10:48] LABS: ALK PHOS 155 U/L (45-117); BILIRUBIN,TOTAL 0.6 mg/dL (0.2-1.0); PHOSPHOROUS 2.6 mg/dL (2.5-4.9); TOT PROT 6.2 g/dl (6.4-8.2)
--- NOTE | 2017-07-18 11:10 | PN ---
Progress Note (short form) - Note Progress Note: s: no cp sob palps dizzy; still with slurred speech and right weakness o: Vital Signs Temp 98.8 F 07/18/17 09:42 Pulse 119 H 07/18/17 10:00 Resp 22 07/18/17 10:00 BP 141/94 07/18/17 10:00 Pulse Ox 95 07/17/17 20:59 Intake & Output 07/17/17 07/17/17 07/18/17 11:59 23:59 11:59 Intake Total 960 960 Output Total 240 100 Balance 720 860 Weight 185 lb 6.54 oz 183 lb Intake: IV 960 960 D5-Ns - 1,000 ml @ 60 mls 720 720 /hr IV ASDIR BAHMAN Rx#: [id number] Heparin - 25,000 Unit In 240 240 Normal Saline - 495 ml @ 1,000 UNIT/HR 20 mls/hr IV TITR BAHMAN Rx#: [id number] Output: Urine 240 100 Void 240 100 Other: Voiding Method Bedpan Bedpan # Unmeasured Voids Void 3 1 Bowel Movement No No Height 5 ft 1 in Body Mass Index (BMI) 35.0 Weight Measurement Method Built in Bedscale Built in Bedscale nad no jvd irreg, tachy, s1s2 no mrg ctab, nl eff abd nt nd pos bs no jaundice diaphoresis aaox3 no le edema bl, no c/c slurred speech Current Medications Generic Name Dose Route Start Last Admin Trade Name Freq PRN Reason Stop Dose Admin Atorvastatin Calcium 80 mg 07/18/17 22:00 Lipitor - PO HS BAHMAN Heparin Sodium (Porcine) 1,000 unit 07/16/17 19:00 Heparin - IVPUSH PRN PRN Heparin Heparin Sodium (Porcine) 5,000 unit 07/16/17 19:00 Heparin - IVPUSH PRN PRN Heparin Heparin Sodium (Porcine) 25, 500 mls @ 20 mls/hr 07/16/17 19:00 07/18/17 09: 10 000 unit/ Sodium Chloride IV 0 unit/hr TITR BAHMAN 0 mls/hr Protocol Titration 1,000 UNIT/HR Insulin Aspart 1 vial 07/17/17 16:30 07/18/17 06:30 Novolog Vial Sliding Scale - SQ 2 units Q4H BAHMAN Administration Protocol Metoprolol Tartrate 5 mg 07/16/17 22:39 07/18/17 03:00 Lopressor Injection - IVPUSH 5 mg Q4H PRN Administration TACHYCARDIA Metoprolol Tartrate 50 mg 07/18/17 11:00 Lopressor - PO BID BAHMAN Pantoprazole Sodium 40 mg 07/17/17 11:30 07/17/17 16:50 Protonix Iv IVPUSH 40 mg DAILY BAHMAN Administration Laboratory Last Values WBC 10.3 K/mm3 (4.0-10.0) H 07/18/17 06:10 RBC 3.81 M/mm3 (3.60-5.2) 07/18/17 06:10 Hgb 9.2 GM/dL (10.7-15.3) L 07/18/17 06:10 Hct 29.2 % (32.4-45.2) L 07/18/17 06:10 MCV 76.5 fl (80-96) L 07/18/17 06:10 MCH 24.0 pg (25.7-33.7) L 07/18/17 06:10 MCHC 31.4 g/dl (32.0-36.0) L 07/18/17 06:10 RDW 19.9 % (11.6-15.6) H 07/18/17 06:10 Plt Count 259 K/MM3 (134-434) 07/18/17 06:10 MPV 8.7 fl (7.5-11.1) 07/18/17 06:10 Neutrophils % 78.3 % (42.8-82.8) 07/18/17 06:10 Lymphocytes % 13.2 % (8-40) D 07/18/17 06:10 Monocytes % 7.6 % (3.8-10.2) 07/18/17 06:10 Eosinophils % 0.4 % (0-4.5) D 07/18/17 06:10 Basophils % 0.5 % (0-2.0) 07/18/17 06:10 PT with INR 18.10 SEC (9.7-13.0) H 07/16/17 17:15 INR 1.60 (0.82-1.09) H D 07/16/17 17:15 PTT (Actin FS) 71.2 SECONDS (26.9-34.4) H D 07/18/17 06:10 Sodium 144 mmol/L (136-145) 07/18/17 06:10 Potassium 3.9 mmol/L (3.5-5.1) 07/18/17 06:10 Chloride 111 mmol/L (98-107) H 07/18/17 06:10 Carbon Dioxide 24 mmol/L (21-32) 07/18/17 06:10 Anion Gap 9 (8-16) 07/18/17 06:10 BUN 8 mg/dL (7-18) 07/18/17 06:10 Creatinine 0.7 mg/dL (0.55-1.02) 07/18/17 06:10 Creat Clearance w eGFR > 60 (>60) 07/18/17 06:10 POC Glucometer 151 UNITS (80-120) 07/17/17 05:09 Random Glucose 136 mg/dL (74-106) H 07/18/17 06:10 Calcium 8.2 mg/dL (8.5-10.1) L 07/18/17 06:10 Phosphorus 2.6 mg/dL (2.5-4.9) 07/18/17 06:10 Magnesium 2.3 mg/dL (1.8-2.4) 07/18/17 06:10 Total Bilirubin 0.6 mg/dL (0.2-1.0) 07/18/17 06:10 AST 25 U/L (15-37) 07/18/17 06:10 ALT 16 U/L (12-78) 07/18/17 06:10 Alkaline Phosphatase 155 U/L (45-117) H 07/18/17 06:10 Creatine Kinase 89 IU/L (26-192) 07/17/17 14:20 Troponin I 8.77 ng/ml (0.00-0.05) H* 07/17/17 14:20 Total Protein 6.2 g/dl (6.4-8.2) L 07/18/17 06:10 Albumin 2.9 g/dl (3.4-5.0) L 07/18/17 06:10 Triglycerides 144 mg/dL (35-160) 07/16/17 17:15 Cholesterol 109 mg/dL (50-200) 07/16/17 17:15 Total LDL Cholesterol 58 mg/dL (5-100) 07/16/17 17:15 HDL Cholesterol 39 mg/dL (40-60) L 07/16/17 17:15 TSH 0.71 uIU/ml (0.358-3.74) 07/17/17 06:00 Free T4 1.53 ng/dl (0.76-1.46) H 07/17/17 06:00 Urine Color Yellow 07/16/17 18:00 Urine Appearance Slcloudy 07/16/17 18:00 Urine pH 5.0 (5.0-8.0) 07/16/17 18:00 Ur Specific [place] 1.023 (1.001-1.035) 07/16/17 18:00 Urine Protein 1+ (NEGATIVE) H 07/16/17 18:00 Urine Glucose (UA) Negative (NEGATIVE) 07/16/17 18:00 Urine Ketones Negative (NEGATIVE) 07/16/17 18:00 Urine Blood Negative (NEGATIVE) 07/16/17 18:00 Urine Nitrite Negative (NEGATIVE) 07/16/17 18:00 Urine Bilirubin Negative (<2.0 mg/dL) 07/16/17 18:00 Urine Urobilinogen Negative mg/dL (0.2-1.0) 07/16/17 18:00 Ur Leukocyte Esterase Trace (NEGATIVE) 07/16/17 18:00 Urine WBC (Auto) 7 /hpf (3-5) 07/16/17 18:00 Urine RBC (Auto) 1 /hpf (0-3) 07/16/17 18:00 Ur Epithelial Cells Rare /HPF (FEW) 07/16/17 18:00 Hyaline Casts 3 /lpf 07/16/17 18:00 Urine Mucus Rare 07/16/17 18:00 Blood Type O POSITIVE 07/16/17 17:15 Antibody Screen Negative 07/16/17 17:15 tele: afib, rate 110s ecg: afib rate 110s, nl qtc, no ischemic changes, nonspec st-t changes, no sig change from prior ecg earlier this month echo 06/2016: nl lv/rv, mild emmanuelle, mv ring, mod tr, mild phtn echo 07/2017: nl lv, rv tds, emmanuelle, mod-sev tr, nl rvsp cxr: no sig chf endoscopy 07/2017: Bleeding source appears to be vascular ectasias, likely in the small bowel as large cecal nonbleeding angiodysplasias were seen. 4 colon polyps were removed. Should have capsule endoscopy as outpatient. est cct 36 mins a/p: hpi: 77 f hx mv ring repair 2009, afib, dm, htn, ppm, hld, chf here with difficulty speaking. cva: -occurred in setting of holding coumadin for 5 days 2/2 gib and polypectomy -head ct shows possible bleed near cva so hep gtt stopped -neuro following. NSTEMI: -no cp at present -ecg unchanged from prior -echo with nl lvef -cont tele -hep gtt stopped due to bleed near cva -no asa/plavix for now either due to bleed -will likely need cardiac cath after acute cva issues resolve anemia: -endoscopy 07/2017: Bleeding source appears to be vascular ectasias, likely in the small bowel. -hgb stable here chronic diastolic chf: -stable, resume po lasix 40 bid when taking po mv repair: -normal fcn on recent echo afib: -cont bb, getting iv for now as npo, cont tele -ac held as above htn: -cont iv bb for now -resume home meds (toprol, norvasc, lisinopril) when taking po ppm: -ongoing outpt f/u hld: -cont home statin when taking po
--- NOTE | 2017-07-18 11:35 | PN ---
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 Now comprehension of simple commands much improved and y/n responses 100% accurate. Still quite apraxic, with rare single words elicited upon repetition but able to approximate " I love you" to . I constructed a basic needs communication board and she was able to point to pictures and single words with 100% accuracy. Swallowing delayed but much improved in ability to trigger a swallow with improved VOM/ROM IMP:Improving auditory./graphic comprehension and use of Gesture. Expressive language still quite limited at this time Swallow improving Improving prognosis REC: Dys puree/nectar MBS Excellent candidate for aggressive rehabilitation. Consider CHOLO
--- NOTE | 2017-07-18 11:54 | PN ---
Teaching Attending Note Name of Resident: Ritu Mazariegos ATTENDING PHYSICIAN STATEMENT I saw and evaluated the patient. I reviewed the resident's note and discussed the case with the resident. I agree with the resident's findings and plan as documented. SUBJECTIVE: Pt seen and examined in the ICU. Remains aphasic. Neuro exam worse this AM with worsening right sided weakness. CT head this AM showing questionable hemorrhage. OBJECTIVE: Last Vital Signs Temp Pulse Resp BP Pulse Ox 98.8 F 119 H 22 141/94 95 07/18/17 09:42 07/18/17 10:00 07/18/17 10:00 07/18/17 10:00 07/17/17 20:59 Intake & Output 07/15/17 07/16/17 07/17/17 07/18/17 23:59 23:59 23:59 23:59 Intake Total 960 960 Output Total 240 100 Balance 720 860 Weight 83.915 kg 84.1 kg 83.007 kg Gen: aphasic Heart: tachcycardic, irregular Lung: scattered rhonchi Abd: soft, nontender Ext: no edema CBC, BMP 07/18/17 06:10 07/18/17 06:10 Active Medications Atorvastatin Calcium (Lipitor -) 80 mg PO HS BAHMAN Heparin Sodium (Porcine) (Heparin -) 1,000 unit IVPUSH PRN PRN PRN Reason: Heparin Heparin Sodium (Porcine) (Heparin -) 5,000 unit IVPUSH PRN PRN PRN Reason: Heparin Heparin Sodium (Porcine) 25, (000 unit/ Sodium Chloride) 500 mls @ 20 mls/hr IV TITR BAHMAN; 1,000 UNIT/HR PRN Reason: Protocol Last Titration: 07/18/17 09:10 Dose: 0 unit/hr, 0 mls/hr Insulin Aspart (Novolog Vial Sliding Scale -) 1 vial SQ Q4H BAHMAN PRN Reason: Protocol Last Admin: 07/18/17 06:30 Dose: 2 units Metoprolol Tartrate (Lopressor Injection -) 5 mg IVPUSH Q4H PRN PRN Reason: TACHYCARDIA Last Admin: 07/18/17 03:00 Dose: 5 mg Metoprolol Tartrate (Lopressor -) 50 mg PO BID BAHMAN Pantoprazole Sodium (Protonix Iv) 40 mg IVPUSH DAILY BAHMAN Last Admin: 07/17/17 16:50 Dose: 40 mg ASSESSMENT AND PLAN: Acute CVA Acute NSTEMI LV Diastolic Dysfunction Atrial Fibrillation with RVR s/p PPM HTN DM Hyperlipidemia h/o GI Bleed Anemia - anticoagulation, antiplatelets if ok with neurology - trend cardiac enzymes - statin - monitor H/H - rate control - monitor CT head per neuro - will need cardiac cath when stable - rehab/PT - swallow eval in progress - continue ICU monitoring critical care time spent in reviewing chart, evaluating patient and formulating plan 35 min
[2017-07-18] MEDS: METOPROLOL TARTRATE 50 MG TABLET (FP) PO SCH ×2 (12:37→21:24)
[2017-07-18] MEDS: PANTOPRAZOLE SODIUM 40 MG VIAL IVPUSH SCH (12:37)
--- NOTE | 2017-07-18 12:45 | PN ---
Physical Exam: SUBJECTIVE: Patient seen and examined. HR last night 140's, Lopressor medicated. Remains aphasic. Worsening R sided weakness this AM CT head showing minimal hemorrhage. OBJECTIVE: Vital Signs Period Temp Pulse Resp BP Sys/[place] Pulse Ox Last 24 Hr 98.2 F-98.8 F 92-138 15-24 107-151/62-124 95 GENERAL: aphasic, alert, able to follow commands. in nad EYES: extraocular movements intact, sclera anicteric ENT: ropharynx clear without exudates, moist mucous membranes. NECK: supple. LUNGS: scattered rhonchi HEART: irregularly irregular ABDOMEN: Soft, nontender, nondistended, normoactive bowel sounds EXTREMITIES: 2+ pulses, no edema NEUROLOGICAL: L facial droop. 3/5 weakness on Left side, 1/5 strength RUE, RLE. PSYCH: Normal mood, normal affect. SKIN: Warm, dry, normal turgor, no rashes or lesions noted Laboratory Results - last 24 hr 07/17/17 07/17/17 07/17/17 14:20 14:20 21:30 WBC 11.6 H RBC 3.75 Hgb 8.7 L Hct 29.0 L MCV 77.3 L MCH 23.2 L MCHC 30.1 L RDW 19.7 H Plt Count 250 MPV 8.9 Neutrophils % 82.9 H Lymphocytes % 9.6 D Monocytes % 7.0 Eosinophils % 0.1 D Basophils % 0.4 PTT (Actin FS) 33.8 D Sodium Potassium Chloride Carbon Dioxide Anion Gap BUN Creatinine Creat Clearance w eGFR Random Glucose Calcium Phosphorus Magnesium Total Bilirubin AST ALT Alkaline Phosphatase Creatine Kinase 89 Troponin I 8.77 H* Total Protein Albumin 07/18/17 07/18/17 07/18/17 06:10 06:10 06:10 WBC 10.3 H RBC 3.81 Hgb 9.2 L Hct 29.2 L MCV 76.5 L MCH 24.0 L MCHC 31.4 L RDW 19.9 H Plt Count 259 MPV 8.7 Neutrophils % 78.3 Lymphocytes % 13.2 D Monocytes % 7.6 Eosinophils % 0.4 D Basophils % 0.5 PTT (Actin FS) 71.2 H D Sodium 144 Potassium 3.9 Chloride 111 H Carbon Dioxide 24 Anion Gap 9 BUN 8 Creatinine 0.7 Creat Clearance w eGFR > 60 Random Glucose 136 H Calcium 8.2 L Phosphorus 2.6 Magnesium 2.3 Total Bilirubin 0.6 AST 25 ALT 16 Alkaline Phosphatase 155 H Creatine Kinase Troponin I 5.55 H* Total Protein 6.2 L Albumin 2.9 L Active Medications Generic Name Dose Route Start Last Admin Trade Name Freq PRN Reason Stop Dose Admin Atorvastatin Calcium 80 mg 07/18/17 22:00 Lipitor - PO HS BAHMAN Heparin Sodium (Porcine) 1,000 unit 07/16/17 19:00 Heparin - IVPUSH PRN PRN Heparin Heparin Sodium (Porcine) 5,000 unit 07/16/17 19:00 Heparin - IVPUSH PRN PRN Heparin Heparin Sodium (Porcine) 25, 500 mls @ 20 mls/hr 07/16/17 19:00 07/18/17 09: 10 000 unit/ Sodium Chloride IV 0 unit/hr TITR BAHMAN 0 mls/hr Protocol Titration 1,000 UNIT/HR Insulin Aspart 1 vial 07/17/17 16:30 07/18/17 06:30 Novolog Vial Sliding Scale - SQ 2 units Q4H BAHMAN Administration Protocol Metoprolol Tartrate 5 mg 07/16/17 22:39 07/18/17 03:00 Lopressor Injection - IVPUSH 5 mg Q4H PRN Administration TACHYCARDIA Metoprolol Tartrate 50 mg 07/18/17 11:00 Lopressor - PO BID BAHMAN Pantoprazole Sodium 40 mg 07/17/17 11:30 07/17/17 16:50 Protonix Iv IVPUSH 40 mg DAILY BAHMAN Administration ASSESSMENT/PLAN: 77F w/ hx of mv ring repair in 2009, a-fib, dm, htn, ppm, hld, and chf who presented with difficulty speaking, found to have aphasia , admitted to the ICU for stroke management. #Neuro -Acute CVA: L MCA infarct -CT Head: questionable minimal R occipital hemmorhage -Heparin gtt held this am. Will repeat head CT in am. -A/C, antiplately if ok by neuro -No MRI due to pacemaker. -FU neuro reccs #CV -Acute NSTEMI -Heparin drip held due to brain bleed -Echo -Start ASA, plavix when ok by neuro -Atorvastatin 80mg -Afib -Metoprolol tart 50mg BID for rate control. -Trops trending down -Cont. Lasix 40mg PO BID -Fu cardio reccs #GI -hx of bleed -stable H&H -monitor -hx of vascular ectasia -PPI -Follow GI reccs #Endocrine -BGM -ISS #FEN -No IV fluids -WNL -Dysphagia/puree #PPX -PPI -Hep SQ Visit type - Emergency Visit Emergency Visit: Yes ED Registration Date: 07/16/17 Care time: The patient presented to the Emergency Department on the above date and was hospitalized for further evaluation of their emergent condition. - New Patient This patient is new to me today: Yes Date on this admission: 07/18/17 - Critical Care Critical Care patient: Yes Total Critical Care Time (in minutes): 45 Critical Care Statement: The care of this patient involved high complexity decision making to prevent further life threatening deterioration of the patient 's condition and/or to evaluate & treat vital organ system(s) failure or risk of failure.
[2017-07-18 14:16] VITALS: BMI 34.5
[2017-07-18] MEDS: LISINOPRIL 10 MG TABLET (FP) PO SCH (16:24)
[2017-07-18] MEDS: FUROSEMIDE 40 MG TABLET (FP) PO SCH (16:24)
--- NOTE | 2017-07-18 17:47 | PN ---
Progress Note (short form) - Note Progress Note: 77 YO Hx/o A Fib on AC, recent GIB and anemia requiring PRBC transfusion and EGD/ colonoscopy (s/p four colon polyp resection), off Coumadin post colon polyp resection (was restarted on 07/13/17) , was in [employer] store 07/16/17 (she dropped an item from the cart without noticing it- per her ) and later in [employer] store when developed garbled speech. Pt came by EMS to ER, found to have dysarthria and left side tongue deviation, had head CT scan (negative for acute event); found to have SUB TX INR spoke to ER at the time, low NIH - HX of coumadin , recent GI BLEED, no TPA given pt was diagnosed with TIA and was started on IV Heparin. HX of GI bleed-- but risk/benefits discussed with team and was cleared for HEPARIN FU : R sided weakness worse, aphasic rpt HD CT No significant interval change in the size or appearance of the previously visualized acute/ subacute infarct in the right occipital lobe with questionable minimal hemorrhage, for which continued follow-up or an MRI is needed. - Past Medical History Cardio/Vascular: Yes: AFIB (on AC), Aortic Stenosis (s/p ring repair at [facility]), CAD, HTN, Other (PPM) Pulmonary: Yes: COPD Gastrointestinal: Yes: GI Bleed, Other (colon polyps, s/p four polyps resection) ...: No Rheumatology: Yes: Other (osteoarthritis) Endocrine: Yes: Diabetes Mellitus - Alcohol/Substance Use Hx Alcohol Use: No History of Substance Use: reports: None - Smoking History Smoking history: Former smoker Have you smoked in the past 12 months: No If you are a former smoker, when did you quit?: 2007 - Social History Usual Living Arrangement: With Spouse ADL: Independent 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 History of Recent Travel: No Home Medications - Allergies Allergies/Adverse Reactions: Allergies Allergy/AdvReac Type Severity Reaction Status Date / Time No Known Allergies Allergy Verified 07/16/17 16:49 - Home Medications Home Medications: Ambulatory Orders Amlodipine Besylate [Norvasc -] 10 mg PO DAILY 06/28/16 Aspirin [ASA -] 81 mg PO DAILY 06/28/16 Lisinopril 10 mg PO DAILY 06/28/16 Simvastatin 10 mg PO DAILY 06/28/16 Furosemide [Lasix -] 40 mg PO BID@0600,1400 #180 tablet 07/04/16 Insulin (Levemir) [Levemir Vial] 38 units SQ ACBK 07/03/17 Sitagliptin Phos/Metformin HCl [Janumet 50-1,000 mg Tablet] 1 each PO DAILY 04/21 Ascorbic Acid [Vitamin C -] 500 mg PO BID 30 Days #60 tablet MDD 2 07/10/17 Bacitracin - [Bacitracin Topical Ointment -] 1 applic TP BID tube 07/10/17 Ferrous Sulfate [Feosol] 325 mg PO BID #60 ud MDD 2 07/10/17 Warfarin Na [Coumadin -] 5 mg PO SuTuThSa@18 #0 tablet 07/10/17 Warfarin Na [Coumadin -] 6 mg PO MoWeFr@1800 #0 tablet 07/10/17 Metoprolol Succinate [Toprol XL -] 50 mg PO DAILY 07/17/17 Polyethylene Glycol 3350 [Miralax 119 gm Btl -] 17 gm PO BID PRN MDD 2 07/17/17 Family Disease History - Family Disease History Family Disease History: Heart Disease: Father ( [place] age 67), Mother ( CHF in her 70's) Physical Exam-Neuro Vital Signs: Vital Signs Temperature 98.6 F 07/18/17 14:00 Pulse Rate 122 H 07/18/17 16:00 Respiratory Rate 22 07/18/17 16:00 Blood Pressure 144/89 07/18/17 16:00 O2 Sat by Pulse Oximetry (%) 96 07/18/17 09:00 Labs: CBCD WBC 10.3 K/mm3 (4.0-10.0) H 07/18/17 06:10 RBC 3.81 M/mm3 (3.60-5.2) 07/18/17 06:10 Hgb 9.2 GM/dL (10.7-15.3) L 07/18/17 06:10 Hct 29.2 % (32.4-45.2) L 07/18/17 06:10 MCV 76.5 fl (80-96) L 07/18/17 06:10 MCHC 31.4 g/dl (32.0-36.0) L 07/18/17 06:10 RDW 19.9 % (11.6-15.6) H 07/18/17 06:10 Plt Count 259 K/MM3 (134-434) 07/18/17 06:10 MPV 8.7 fl (7.5-11.1) 07/18/17 06:10 CMP Sodium 144 mmol/L (136-145) 07/18/17 06:10 Potassium 3.9 mmol/L (3.5-5.1) 07/18/17 06:10 Chloride 111 mmol/L (98-107) H 07/18/17 06:10 Carbon Dioxide 24 mmol/L (21-32) 07/18/17 06:10 Anion Gap 9 (8-16) 07/18/17 06:10 BUN 8 mg/dL (7-18) 07/18/17 06:10 Creatinine 0.7 mg/dL (0.55-1.02) 07/18/17 06:10 Creat Clearance w eGFR > 60 (>60) 07/18/17 06:10 Calcium 8.2 mg/dL (8.5-10.1) L 07/18/17 06:10 Total Bilirubin 0.6 mg/dL (0.2-1.0) 07/18/17 06:10 AST 25 U/L (15-37) 07/18/17 06:10 ALT 16 U/L (12-78) 07/18/17 06:10 Alkaline Phosphatase 155 U/L (45-117) H 07/18/17 06:10 Total Protein 6.2 g/dl (6.4-8.2) L 07/18/17 06:10 Albumin 2.9 g/dl (3.4-5.0) L 07/18/17 06:10 - Neuro Exam Level Of Consciousness: Yes: Alert (awake, but poor attention , + expressive aphasia, mild Right hemiparesis F/A >L, R plantar up ) NIH Stroke Scale - Last Known Well Date/Time & Onset Date Last Known Well: 07/16/17 Time Last Known Well: 16:00 - Initial Evaluation Level of consciousness: Not alert, but arousable with minimal stimulation Ask patient the month and their age: Both incorrect Ask patient to open & close eyes; make fist and let go: Both incorrect Best gaze (horizontal eye movement): Normal Visual field testing: No visual field loss Facial paresis (Show teeth/raise eyebrows/close eyes tight): Partial paralysis ( total or near paralysis of lower face) Motor Function: Left Arm: Normal Motor Function: Right Arm: Drift Motor Function: Left Leg: Normal (extends leg 30 degrees for 5 seconds without drift) Motor Function: Right Leg: Normal (extends leg 30 degrees for 5 seconds without drift) Limb Ataxia: No ataxia Sensory(Use pinprick test arms,legs,trunk,face/side to side): Normal Best language (Describe picture, name items, read sentences): Severe aphasia Dysarthria (read several words): Near unintelligible or unable to speak Extinction and Inattention: No abnormality (12) - Total Score NIH Stroke Scale Score: 12 Assessment/Plan Hx/o A Fib on AC, recent GIB and anemia requiring PRBC transfusion and EGD/ colonoscopy (s/p four colon polyp resection), off Coumadin post colon polyp resection (was recently restarted in 07/13/17) , with new onset aphasia, dysarthria on 07/16/17 ound to have SUB TX INR in ER spoke to ER at the time, low NIH - HX of coumadin , recent GI bleed , no TPA given pt was diagnosed with TIA and was started on IV Heparin. HX of GI bleed--HX of GI bleed-- but risk/benefits discussed with team and was cleared for HEPARIN Sx progressed through out day L MCA STROKE -- from afib , sub TX INR, with expressive aphasia and R HEMIP; min hemorrhage on CT--- hold heparin x 24 hours and can restart in AM , check HD CT tomorrow afternoon DR MARIE
[2017-07-18] MEDS: ATORVASTATIN CA 80 MG TABLET (FP) PO SCH (21:23)
[2017-07-19] MEDS: INSULIN SLIDING SCALE (NOVOLOG) 1 VIAL SQ SCH ×6 (01:00→21:29)
[2017-07-19] MEDS: FUROSEMIDE 40 MG TABLET (FP) PO SCH ×2 (05:47→14:27)
[2017-07-19 06:34] LABS: HEMATOCRIT 29.9 % (32.4-45.2); HEMOGLOBIN 9.3 GM/dL (10.7-15.3); MCH 23.9 pg (25.7-33.7); MCHC 31.1 g/dl (32.0-36.0); MEAN CELL VOLUME 76.9 fl (80-96); MEAN PLT VOLUME 9.1 fl (7.5-11.1); PLATELET COUNT 278 K/MM3 (134-434); RBC 3.89 M/mm3 (3.60-5.2); RDW 19.4 % (11.6-15.6); WHITE BLOOD COUNT 11.1 K/mm3 (4.0-10.0)
[2017-07-19 07:12] LABS: ALBUMIN 2.8 g/dl (3.4-5.0); ANION GAP 6 (8-16); BLOOD UREA NITROGEN 11 mg/dL (7-18); CALCIUM 8.4 mg/dL (8.5-10.1); CHLORIDE 110 mmol/L (98-107); CO2 28 mmol/L (21-32); MAGNESIUM 2.3 mg/dL (1.8-2.4); PHOSPHOROUS 3.4 mg/dL (2.5-4.9); POTASSIUM 4.3 mmol/L (3.5-5.1); SODIUM 144 mmol/L (136-145)
[2017-07-19 07:17] LABS: ALK PHOS 148 U/L (45-117); BILIRUBIN,TOTAL 0.7 mg/dL (0.2-1.0); CREATININE 0.7 mg/dL (0.55-1.02); GLUCOSE,RANDOM 174 mg/dL (74-106); SGOT/AST 17 U/L (15-37); SGPT/ALT 16 U/L (12-78); TOT PROT 6.1 g/dl (6.4-8.2)
--- NOTE | 2017-07-19 08:43 | PN ---
Progress Note (short form) - Note Progress Note: 77 YO Hx/o A Fib on AC, recent GIB and anemia requiring PRBC transfusion and EGD / colonoscopy (s/p four colon polyp resection), off Coumadin post colon polyp resection (was restarted on 07/13/17) , was in [employer] store 07/16/17 (she dropped an item from the cart without noticing it- per her ) and later in [employer] store when developed garbled speech. Pt came by EMS to ER, found to have dysarthria and left side tongue deviation, had head CT scan (negative for acute event); found to have SUB TX INR spoke to ER at the time, low NIH - HX of coumadin , recent GI BLEED, no TPA given pt was diagnosed with TIA and was started on IV Heparin. HX of GI bleed-- but risk/benefits discussed with team and was cleared for HEPARIN FU : R sided weakness worse, aphasic rpt HD CT No significant interval change in the size or appearance of the previously visualized acute/ subacute infarct in the right occipital lobe with questionable minimal hemorrhage, for which continued follow-up or an MRI is needed. - Past Medical History Cardio/Vascular: Yes: AFIB (on AC), Aortic Stenosis (s/p ring repair at 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 History of Recent Travel: No Home Medications - Allergies Allergies/Adverse Reactions: Allergies Allergy/AdvReac Type Severity Reaction Status Date / Time No Known Allergies Allergy Verified 07/16/17 16:49 - Home Medications Home Medications: Ambulatory Orders Amlodipine Besylate [Norvasc -] 10 mg PO DAILY 06/28/16 Aspirin [ASA -] 81 mg PO DAILY 06/28/16 Lisinopril 10 mg PO DAILY 06/28/16 Simvastatin 10 mg PO DAILY 06/28/16 Furosemide [Lasix -] 40 mg PO BID@0600,1400 #180 tablet 07/04/16 Insulin (Levemir) [Levemir Vial] 38 units SQ ACBK 07/03/17 Sitagliptin Phos/Metformin HCl [Janumet 50-1,000 mg Tablet] 1 each PO DAILY 04/21 Ascorbic Acid [Vitamin C -] 500 mg PO BID 30 Days #60 tablet MDD 2 07/10/17 Bacitracin - [Bacitracin Topical Ointment -] 1 applic TP BID tube 07/10/17 Ferrous Sulfate [Feosol] 325 mg PO BID #60 ud MDD 2 07/10/17 Warfarin Na [Coumadin -] 5 mg PO SuTuThSa@18 #0 tablet 07/10/17 Warfarin Na [Coumadin -] 6 mg PO MoWeFr@1800 #0 tablet 07/10/17 Metoprolol Succinate [Toprol XL -] 50 mg PO DAILY 07/17/17 Polyethylene Glycol 3350 [Miralax 119 gm Btl -] 17 gm PO BID PRN MDD 2 07/17/17 Family Disease History - Family Disease History Family Disease History: Heart Disease: Father ( [place] age 67), Mother ( CHF in her 70's) Physical Exam-Neuro Vital Signs: Vital Signs Temperature 98.8 F 07/18/17 17:00 Pulse Rate 127 H 07/19/17 07:00 Respiratory Rate 21 07/19/17 07:00 Blood Pressure 115/89 07/19/17 07:00 O2 Sat by Pulse Oximetry (%) 97 07/18/17 21:00 Labs: CBCD WBC 10.3 K/mm3 (4.0-10.0) H 07/18/17 06:10 RBC 3.81 M/mm3 (3.60-5.2) 07/18/17 06:10 Hgb 9.2 GM/dL (10.7-15.3) L 07/18/17 06:10 Hct 29.2 % (32.4-45.2) L 07/18/17 06:10 MCV 76.5 fl (80-96) L 07/18/17 06:10 MCHC 31.4 g/dl (32.0-36.0) L 07/18/17 06:10 RDW 19.9 % (11.6-15.6) H 07/18/17 06:10 Plt Count 259 K/MM3 (134-434) 07/18/17 06:10 MPV 8.7 fl (7.5-11.1) 07/18/17 06:10 CMP Sodium 144 mmol/L (136-145) 07/18/17 06:10 Potassium 3.9 mmol/L (3.5-5.1) 07/18/17 06:10 Chloride 111 mmol/L (98-107) H 07/18/17 06:10 Carbon Dioxide 24 mmol/L (21-32) 07/18/17 06:10 Anion Gap 9 (8-16) 07/18/17 06:10 BUN 8 mg/dL (7-18) 07/18/17 06:10 Creatinine 0.7 mg/dL (0.55-1.02) 07/18/17 06:10 Creat Clearance w eGFR > 60 (>60) 07/18/17 06:10 Calcium 8.2 mg/dL (8.5-10.1) L 07/18/17 06:10 Total Bilirubin 0.6 mg/dL (0.2-1.0) 07/18/17 06:10 AST 25 U/L (15-37) 07/18/17 06:10 ALT 16 U/L (12-78) 07/18/17 06:10 Alkaline Phosphatase 155 U/L (45-117) H 07/18/17 06:10 Total Protein 6.2 g/dl (6.4-8.2) L 07/18/17 06:10 Albumin 2.9 g/dl (3.4-5.0) L 07/18/17 06:10 - Neuro Exam Level Of Consciousness: Yes: Alert (awake, but poor attention , + expressive aphasia, mild Right hemiparesis F/A >L, R plantar up ) NIH Stroke Scale - Last Known Well Date/Time & Onset Date Last Known Well: 07/16/17 Time Last Known Well: 16:00 - Initial Evaluation Level of consciousness: Not alert, but arousable with minimal stimulation Ask patient the month and their age: Both incorrect Ask patient to open & close eyes; make fist and let go: Both incorrect Best gaze (horizontal eye movement): Normal Visual field testing: No visual field loss Facial paresis (Show teeth/raise eyebrows/close eyes tight): Partial paralysis ( total or near paralysis of lower face) Motor Function: Left Arm: Normal Motor Function: Right Arm: Drift Motor Function: Left Leg: Normal (extends leg 30 degrees for 5 seconds without drift) Motor Function: Right Leg: Normal (extends leg 30 degrees for 5 seconds without drift) Limb Ataxia: No ataxia Sensory(Use pinprick test arms,legs,trunk,face/side to side): Normal Best language (Describe picture, name items, read sentences): Severe aphasia Dysarthria (read several words): Near unintelligible or unable to speak Extinction and Inattention: No abnormality (12) - Total Score NIH Stroke Scale Score: 12 Assessment/Plan Hx/o A Fib on AC, recent GIB and anemia requiring PRBC transfusion and EGD/ colonoscopy (s/p four colon polyp resection), off Coumadin post colon polyp resection (was recently restarted in 07/13/17) , with new onset aphasia, dysarthria on 07/16/17 ound to have SUB TX INR in ER spoke to ER at the time, low NIH - HX of coumadin , recent GI bleed , no TPA given pt was diagnosed with TIA and was started on IV Heparin. HX of GI bleed--HX of GI bleed-- but risk/benefits discussed with team and was cleared for HEPARIN Sx progressed through out day L MCA STROKE -- from afib , sub TX INR, with expressive aphasia and R HEMIP; min hemorrhage on CT--- held heparin x 24 hours and can restart in this AM , check HD CT this afternoon DR MARIE
--- NOTE | 2017-07-19 09:04 | PN ---
Progress Note, Physician History of Present Illness: Pt w/o SOB, cough, CP, palpitations, abd pain.. Pt with right hand weakness, cannot speak. Pt's is at bedside, - Current Medication List Current Medications: Active Medications Atorvastatin Calcium (Lipitor -) 80 mg PO HS [facility] Last Admin: 07/18/17 21:23 Dose: 80 mg Furosemide (Lasix -) 40 mg PO BID@0600,1400 [facility] Last Admin: 07/19/17 05:47 Dose: 40 mg Heparin Sodium (Porcine) (Heparin -) 1,000 unit IVPUSH PRN PRN PRN Reason: Heparin Heparin Sodium (Porcine) (Heparin -) 5,000 unit IVPUSH PRN PRN PRN Reason: Heparin Heparin Sodium (Porcine) 25, (000 unit/ Sodium Chloride) 500 mls @ 20 mls/hr IV TITR [facility]; 1,000 UNIT/HR PRN Reason: Protocol Last Titration: 07/18/17 09:10 Dose: 0 unit/hr, 0 mls/hr Insulin Aspart (Novolog Vial Sliding Scale -) 1 vial SQ Q4H [facility] PRN Reason: Protocol Last Admin: 07/19/17 01:00 Dose: 2 units Lisinopril (Prinivil) 10 mg PO DAILY [facility] Last Admin: 07/18/17 16:24 Dose: 10 mg Metoprolol Tartrate (Lopressor Injection -) 5 mg IVPUSH Q4H PRN PRN Reason: TACHYCARDIA Last Admin: 07/18/17 03:00 Dose: 5 mg Metoprolol Tartrate (Lopressor -) 50 mg PO BID [facility] Last Admin: 07/18/17 21:24 Dose: 50 mg Pantoprazole Sodium (Protonix Iv) 40 mg IVPUSH DAILY [facility] Last Admin: 07/18/17 12:37 Dose: 40 mg - Objective Vital Signs: Vital Signs Temperature 98.8 F 07/18/17 17:00 Pulse Rate 127 H 07/19/17 07:00 Respiratory Rate 21 07/19/17 07:00 Blood Pressure 115/89 07/19/17 07:00 O2 Sat by Pulse Oximetry (%) 97 07/18/17 21:00 Constitutional: Yes: No Distress, Calm Cardiovascular: Yes: Tachycardia, S1, S2 Respiratory: Yes: Regular, CTA Bilaterally, Other (coarse BS at bases) Gastrointestinal: Yes: Normal Bowel Sounds, Soft. No: Tenderness Edema: No Neurological: Yes: Alert, Oriented, Other (Pt's is more alert today. Neuro examination is unchanged.) Labs: CBC, BMP 07/19/17 05:55 07/19/17 05:55 INR, PTT INR 1.60 (0.82-1.09) H D 07/16/17 17:15 Problem List - Problems (1) Brain bleed Code(s): I61.9 - NONTRAUMATIC INTRACEREBRAL HEMORRHAGE, UNSPECIFIED (2) NSTEMI (non-ST elevated myocardial infarction) Code(s): I21.4 - NON-ST ELEVATION (NSTEMI) MYOCARDIAL INFARCTION (3) CVA (cerebral vascular accident) Code(s): I63.9 - CEREBRAL INFARCTION, UNSPECIFIED (4) Elevated troponin I level Code(s): R74.8 - ABNORMAL LEVELS OF OTHER SERUM ENZYMES (5) Anemia Code(s): D64.9 - ANEMIA, UNSPECIFIED Qualifiers: Iron deficiency anemia type: chronic blood loss (6) GIB (gastrointestinal bleeding) Code(s): K92.2 - GASTROINTESTINAL HEMORRHAGE, UNSPECIFIED Qualifiers: GI bleed type/associated pathology: unspecified gastrointestinal hemorrhage type Qualified Code(s): K92.2 - Gastrointestinal hemorrhage, unspecified (7) Atrial fibrillation Code(s): I48.91 - UNSPECIFIED ATRIAL FIBRILLATION (8) CAD (coronary artery disease) Code(s): I25.10 - ATHSCL HEART DISEASE OF [place] CORONARY ARTERY W/O ANG PCTRS (9) COPD (chronic obstructive pulmonary disease) Code(s): J44.9 - CHRONIC OBSTRUCTIVE PULMONARY DISEASE, UNSPECIFIED (10) Diabetes mellitus Code(s): E11.9 - TYPE 2 DIABETES MELLITUS WITHOUT COMPLICATIONS (11) HTN (hypertension) Code(s): I10 - ESSENTIAL (PRIMARY) HYPERTENSION (12) Hyperlipidemia Code(s): E78.5 - HYPERLIPIDEMIA, UNSPECIFIED (13) Lung nodule Code(s): R91.1 - SOLITARY PULMONARY NODULE (14) Pacemaker Code(s): Z95.0 - PRESENCE OF CARDIAC PACEMAKER Assessment/Plan Admitted to ICU IV Heparin was started on admission. Heparin is on hold secondary to intracranial bleed; Case was d/w Dr. Sutherland at bedside; to restart Heparin this AM and repeat Head CT scan w/o C this afternoon. Neurochecks. To monitor CE Neuro, Cardio, GI, Speech/ swallow consults and f/u appreciated, NPO. IVF. DVT proph. GI proph. AM labs. Pt's conditon and treatmnet plan was reviewed with ICU resident; to continue to monitor pt in ICU. Pt's condition and treatment were reviewed with pt's at bedside. All questions were answered. Pt case was d/w her nurse. Prognosis: reserved Time spent for managing patient care: over 45 minutes.
[2017-07-19] MEDS: LISINOPRIL 10 MG TABLET (FP) PO SCH (09:41)
[2017-07-19] MEDS: METOPROLOL TARTRATE 50 MG TABLET (FP) PO SCH ×2 (09:41→21:29)
[2017-07-19] MEDS: PANTOPRAZOLE SODIUM 40 MG VIAL IVPUSH SCH (09:42)
[2017-07-19] MEDS: HEPARIN - 25,000 UNIT in SODIUM CHLORIDE 495 ML IV SCH (10:00)
--- NOTE | 2017-07-19 12:18 | PN ---
Progress Note, [employer] - Note Progress Note: Selected Entries 07/18/17 07/18/17 07/18/17 02:00 12:00 14:00 Lunch Temperature 98.2 F 98.8 F 98.6 F 07/18/17 07/18/17 14:25 17:00 Lunch 100% Temperature 98.8 F Laboratory Tests 07/17/17 07/18/17 07/19/17 06:00 06:10 05:55 WBC 13.0 H 10.3 H 11.1 H Sleepy today but arousable. Performance similar to yesterday. Educated family to practice speech drills and use communication board. Encourage yes/no responses and use of gestures. Pt will benefit from intensive PT/OT/ST Tongue coated- Mouth care/thrush? Continue puree/nectar. Monitor tolerance, fever, congestion Defer MBS for now. Pt not ready for diet upgrade.
--- NOTE | 2017-07-19 12:29 | PN ---
Progress Note (short form) - Note Progress Note: s: no cp sob palps dizzy; still with slurred speech and right weakness o: Current Medications Generic Name Dose Route Start Last Admin Trade Name Freq PRN Reason Stop Dose Admin Atorvastatin Calcium 80 mg 07/18/17 22:00 07/18/17 21:23 Lipitor - PO 80 mg HS [facility] Administration Furosemide 40 mg 07/18/17 14:00 07/19/17 05:47 Lasix - PO 40 mg BID@0600,1400 [facility] Administration Heparin Sodium (Porcine) 1,000 unit 07/16/17 19:00 Heparin - IVPUSH PRN PRN Heparin Heparin Sodium (Porcine) 5,000 unit 07/16/17 19:00 Heparin - IVPUSH PRN PRN Heparin Heparin Sodium (Porcine) 25, 500 mls @ 20 mls/hr 07/16/17 19:00 07/19/17 10: 00 000 unit/ Sodium Chloride IV 1,000 unit/hr TITR [facility] 20 mls/hr Protocol Administration 1,000 UNIT/HR Insulin Aspart 1 vial 07/17/17 16:30 07/19/17 10:12 Novolog Vial Sliding Scale - SQ 8 units Q4H [facility] Administration Protocol Lisinopril 10 mg 07/18/17 13:00 07/19/17 09:41 Prinivil PO 10 mg DAILY [facility] Administration Metoprolol Tartrate 5 mg 07/16/17 22:39 07/18/17 03:00 Lopressor Injection - IVPUSH 5 mg Q4H PRN Administration TACHYCARDIA Metoprolol Tartrate 50 mg 07/18/17 11:00 07/19/17 09:41 Lopressor - PO 50 mg BID [facility] Administration Pantoprazole Sodium 40 mg 07/17/17 11:30 07/19/17 09:42 Protonix Iv IVPUSH 40 mg DAILY [facility] Administration Vital Signs Temp 98.8 F 07/18/17 17:00 Pulse 127 H 07/19/17 07:00 Resp 21 07/19/17 07:00 BP 115/89 07/19/17 07:00 Pulse Ox 97 07/18/17 21:00 Intake & Output 07/18/17 07/19/17 07/19/17 23:59 11:59 23:59 Intake Total 256 100 Output Total 300 Balance -44 100 Weight 183 lb 177 lb 4.026 oz Intake: IV 46 Heparin - 25,000 Unit In 46 Normal Saline - 495 ml @ 1,000 UNIT/HR 20 mls/hr IV TITR [facility] Rx#: [id number] Oral 210 100 Output: Urine 300 Void 300 Other: Voiding Method Indwelling Catheter # Unmeasured Voids Void 2 1 Bowel Movement No No Height 5 ft 1 in Body Mass Index (BMI) 34.5 Weight Measurement Method Built in [facility] nad no jvd irreg, tachy, s1s2 no mrg ctab, nl eff abd nt nd pos bs no jaundice diaphoresis aaox3 no le edema bl, no c/c slurred speech Laboratory Last Values WBC 11.1 K/mm3 (4.0-10.0) H 07/19/17 05:55 RBC 3.89 M/mm3 (3.60-5.2) 07/19/17 05:55 Hgb 9.3 GM/dL (10.7-15.3) L 07/19/17 05:55 Hct 29.9 % (32.4-45.2) L 07/19/17 05:55 MCV 76.9 fl (80-96) L 07/19/17 05:55 MCH 23.9 pg (25.7-33.7) L 07/19/17 05:55 MCHC 31.1 g/dl (32.0-36.0) L 07/19/17 05:55 RDW 19.4 % (11.6-15.6) H 07/19/17 05:55 Plt Count 278 K/MM3 (134-434) 07/19/17 05:55 MPV 9.1 fl (7.5-11.1) 07/19/17 05:55 Neutrophils % 78.3 % (42.8-82.8) 07/18/17 06:10 Lymphocytes % 13.2 % (8-40) D 07/18/17 06:10 Monocytes % 7.6 % (3.8-10.2) 07/18/17 06:10 Eosinophils % 0.4 % (0-4.5) D 07/18/17 06:10 Basophils % 0.5 % (0-2.0) 07/18/17 06:10 PT with INR 18.10 SEC (9.7-13.0) H 07/16/17 17:15 INR 1.60 (0.82-1.09) H D 07/16/17 17:15 PTT (Actin FS) 28.4 SECONDS (26.9-34.4) D 07/19/17 05:55 Sodium 144 mmol/L (136-145) 07/19/17 05:55 Potassium 4.3 mmol/L (3.5-5.1) 07/19/17 05:55 Chloride 110 mmol/L (98-107) H 07/19/17 05:55 Carbon Dioxide 28 mmol/L (21-32) 07/19/17 05:55 Anion Gap 6 (8-16) L 07/19/17 05:55 BUN 11 mg/dL (7-18) 07/19/17 05:55 Creatinine 0.7 mg/dL (0.55-1.02) 07/19/17 05:55 Creat Clearance w eGFR > 60 (>60) 07/19/17 05:55 POC Glucometer 153.32686 UNITS (80-120) 07/18/17 12:34 Random Glucose 174 mg/dL (74-106) H 07/19/17 05:55 Calcium 8.4 mg/dL (8.5-10.1) L 07/19/17 05:55 Phosphorus 3.4 mg/dL (2.5-4.9) 07/19/17 05:55 Magnesium 2.3 mg/dL (1.8-2.4) 07/19/17 05:55 Total Bilirubin 0.7 mg/dL (0.2-1.0) 07/19/17 05:55 AST 17 U/L (15-37) 07/19/17 05:55 ALT 16 U/L (12-78) 07/19/17 05:55 Alkaline Phosphatase 148 U/L (45-117) H 07/19/17 05:55 Creatine Kinase 32 IU/L (26-192) 07/19/17 05:55 Troponin I 3.57 ng/ml (0.00-0.05) H* 07/19/17 05:55 Total Protein 6.1 g/dl (6.4-8.2) L 07/19/17 05:55 Albumin 2.8 g/dl (3.4-5.0) L 07/19/17 05:55 Triglycerides 144 mg/dL (35-160) 07/16/17 17:15 Cholesterol 109 mg/dL (50-200) 07/16/17 17:15 Total LDL Cholesterol 58 mg/dL (5-100) 07/16/17 17:15 HDL Cholesterol 39 mg/dL (40-60) L 07/16/17 17:15 TSH 0.71 uIU/ml (0.358-3.74) 07/17/17 06:00 Free T4 1.53 ng/dl (0.76-1.46) H 07/17/17 06:00 Urine Color Yellow 07/16/17 18:00 Urine Appearance Slcloudy 07/16/17 18:00 Urine pH 5.0 (5.0-8.0) 07/16/17 18:00 Ur Specific [place] 1.023 (1.001-1.035) 07/16/17 18:00 Urine Protein 1+ (NEGATIVE) H 07/16/17 18:00 Urine Glucose (UA) Negative (NEGATIVE) 07/16/17 18:00 Urine Ketones Negative (NEGATIVE) 07/16/17 18:00 Urine Blood Negative (NEGATIVE) 07/16/17 18:00 Urine Nitrite Negative (NEGATIVE) 07/16/17 18:00 Urine Bilirubin Negative (<2.0 mg/dL) 07/16/17 18:00 Urine Urobilinogen Negative mg/dL (0.2-1.0) 07/16/17 18:00 Ur Leukocyte Esterase Trace (NEGATIVE) 07/16/17 18:00 Urine WBC (Auto) 7 /hpf (3-5) 07/16/17 18:00 Urine RBC (Auto) 1 /hpf (0-3) 07/16/17 18:00 Ur Epithelial Cells Rare /HPF (FEW) 07/16/17 18:00 Hyaline Casts 3 /lpf 07/16/17 18:00 Urine Mucus Rare 07/16/17 18:00 Blood Type O POSITIVE 07/16/17 17: Antibody Screen Negative 07/16/17 17:15 tele: afib, rate 110s ecg: afib rate 110s, nl qtc, no ischemic changes, nonspec st-t changes, no sig change from prior ecg earlier this month echo 06/2016: nl lv/rv, mild emmanuelle, mv ring, mod tr, mild phtn echo 07/2017: nl lv, rv tds, emmanuelle, mod-sev tr, nl rvsp cxr: no sig chf endoscopy 07/2017: Bleeding source appears to be vascular ectasias, likely in the small bowel as large cecal nonbleeding angiodysplasias were seen. 4 colon polyps were removed. Should have capsule endoscopy as outpatient. est cct 35 mins a/p: hpi: 77 f hx mv ring repair 2009, afib, dm, htn, ppm, hld, chf here with difficulty speaking. cva: -occurred in setting of holding coumadin for 5 days 2/2 gib and polypectomy -head ct shows possible bleed near cva so hep gtt stopped 07/18, cleared to resume 07/19 by neuro -neuro following NSTEMI: -no cp at present -ecg unchanged from prior -echo with nl lvef -cont tele -hep gtt -asa/plavix not given due to possible bleed on head ct -will likely need cardiac cath after acute cva issues resolve anemia: -endoscopy 07/2017: Bleeding source appears to be vascular ectasias, likely in the small bowel. -hgb stable here chronic diastolic chf: -stable, cont lasix 40 po bid mv repair: -normal fcn on recent echo afib: -on hep gtt -rvr at times but now getting po meds. Monitor hr with po meds. Can give iv lopressor/iv dilt if needed while adjusting po meds. htn: -cont home meds ppm: -ongoing outpt f/u hld: -cont statin
--- NOTE | 2017-07-19 13:29 | PN ---
Teaching Attending Note Name of Resident: Ritu Mazariegos ATTENDING PHYSICIAN STATEMENT I saw and evaluated the patient. I reviewed the resident's note and discussed the case with the resident. I agree with the resident's findings and plan as documented. SUBJECTIVE: Patient seen and examined in the ICU. Remains aphasic. Neuro exam worse this AM with worsening right sided weakness. CT head this AM showing questionable hemorrhage. Noted the decision was made to start IV Heparin. Will have repeat CT this afternoon. OBJECTIVE: Intake & Output 07/16/17 07/17/17 07/18/17 07/19/17 23:59 23:59 23:59 23:59 Intake Total 960 1216 100 Output Total 240 400 Balance 720 816 100 Weight 185 lb 185 lb 6.54 oz 183 lb 177 lb 4.026 oz Last Vital Signs Temp Pulse Resp BP Pulse Ox 98.8 F 127 H 21 115/89 97 07/18/17 17:00 07/19/17 07:00 07/19/17 07:00 07/19/17 07:00 07/18/17 21:00 Active Medications Atorvastatin Calcium (Lipitor -) 80 mg PO HS [facility] Last Admin: 07/18/17 21:23 Dose: 80 mg Furosemide (Lasix -) 40 mg PO BID@0600,1400 [facility] Last Admin: 07/19/17 05:47 Dose: 40 mg Heparin Sodium (Porcine) (Heparin -) 1,000 unit IVPUSH PRN PRN PRN Reason: Heparin Heparin Sodium (Porcine) (Heparin -) 5,000 unit IVPUSH PRN PRN PRN Reason: Heparin Heparin Sodium (Porcine) 25, (000 unit/ Sodium Chloride) 500 mls @ 20 mls/hr IV TITR [facility]MAN; 1,000 UNIT/HR PRN Reason: Protocol Last Admin: 07/19/17 10:00 Dose: 1,000 unit/hr, 20 mls/hr Insulin Aspart (Novolog Vial Sliding Scale -) 1 vial SQ Q4H [facility] PRN Reason: Protocol Last Admin: 07/19/17 12:53 Dose: 4 units Lisinopril (Prinivil) 10 mg PO DAILY [facility] Last Admin: 07/19/17 09:41 Dose: 10 mg Metoprolol Tartrate (Lopressor Injection -) 5 mg IVPUSH Q4H PRN PRN Reason: TACHYCARDIA Last Admin: 07/18/17 03:00 Dose: 5 mg Metoprolol Tartrate (Lopressor -) 50 mg PO BID [facility] Last Admin: 07/19/17 09:41 Dose: 50 mg Pantoprazole Sodium (Protonix Iv) 40 mg IVPUSH DAILY [facility] Last Admin: 07/19/17 09:42 Dose: 40 mg Gen: aphasic Heart: tachcycardic, irregular Lung: scattered rhonchi Abd: soft, nontender Ext: no edema Laboratory Results - last 24 hr 07/17/17 07/17/17 07/18/17 16:40 22:17 00:27 WBC RBC Hgb Hct MCV MCH MCHC RDW Plt Count MPV PTT (Actin FS) Sodium Potassium Chloride Carbon Dioxide Anion Gap BUN Creatinine Creat Clearance w eGFR POC Glucometer 281.54477 189.73984 241.44894 Random Glucose Calcium Phosphorus Magnesium Total Bilirubin AST ALT Alkaline Phosphatase Creatine Kinase Troponin I Total Protein Albumin 07/18/17 07/18/17 07/18/17 06:25 09:03 12:34 WBC RBC Hgb Hct MCV MCH MCHC RDW Plt Count MPV PTT (Actin FS) Sodium Potassium Chloride Carbon Dioxide Anion Gap BUN Creatinine Creat Clearance w eGFR POC Glucometer 170.94562 114.10229 153.76257 Random Glucose Calcium Phosphorus Magnesium Total Bilirubin AST ALT Alkaline Phosphatase Creatine Kinase Troponin I Total Protein Albumin 07/19/17 07/19/17 07/19/17 05:55 05:55 05:55 WBC 11.1 H RBC 3.89 Hgb 9.3 L Hct 29.9 L MCV 76.9 L MCH 23.9 L MCHC 31.1 L RDW 19.4 H Plt Count 278 MPV 9.1 PTT (Actin FS) 28.4 D Sodium 144 Potassium 4.3 Chloride 110 H Carbon Dioxide 28 Anion Gap 6 L BUN 11 Creatinine 0.7 Creat Clearance w eGFR > 60 POC Glucometer Random Glucose 174 H Calcium 8.4 L Phosphorus 3.4 Magnesium 2.3 Total Bilirubin 0.7 AST 17 ALT 16 Alkaline Phosphatase 148 H Creatine Kinase Troponin I Total Protein 6.1 L Albumin 2.8 L 07/19/17 05:55 WBC RBC Hgb Hct MCV MCH MCHC RDW Plt Count MPV PTT (Actin FS) Sodium Potassium Chloride Carbon Dioxide Anion Gap BUN Creatinine Creat Clearance w eGFR POC Glucometer Random Glucose Calcium Phosphorus Magnesium Total Bilirubin AST ALT Alkaline Phosphatase Creatine Kinase 32 Troponin I 3.57 H* Total Protein Albumin ASSESSMENT AND PLAN: Acute CVA Acute NSTEMI LV Diastolic Dysfunction Atrial Fibrillation with RVR s/p PPM HTN DM Hyperlipidemia h/o GI Bleed Anemia - Noted IV Heparin was started, very close monitoring of PTT - For repeat Head CT this afternoon - statin - monitor H/H - rate control - swallow evaluation - BP Monitoring - Follow Neuro exam - continue ICU monitoring Dr Stover Critical care time spent in reviewing chart, evaluating patient and formulating plan 36 min
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
--- NOTE | 2017-07-19 17:51 | PN ---
Progress Note (short form) - Note Progress Note: ICU Evening Resident CT Head read shows no increase in size of infarct or the small area of hemorrhage. Just natural evolving changes. Will continue hepartin ggt. Dr Cortes informed, requests repeat head CT in 48 hours, order placed Patient and informed. No neurological changes. Will watch this evening.
--- NOTE | 2017-07-19 18:22 | PN ---
GI Progress Note Subjective: Gi NOte: Recent events noted. Minimal improvement neurologically. Fortunately no bleeding. - Objective Vital Signs: Vital Signs Temperature 98.8 F 07/18/17 17:00 Pulse Rate 127 H 07/19/17 07:00 Respiratory Rate 21 07/19/17 07:00 Blood Pressure 115/89 07/19/17 07:00 O2 Sat by Pulse Oximetry (%) 97 07/18/17 21:00 Laboratory Tests 07/16/17 07/17/17 07/18/17 17:15 14:20 06:10 Hgb 9.9 L D 8.7 L 9.2 L 07/19/17 05:55 Hgb 9.3 L Constitutional: Calm ...Auscultate: Yes: Normoactive Bowel Sounds ...Palpate: Yes: Soft, Other (nontender) Labs: CBC, BMP 07/19/17 05:55 07/19/17 05:55 INR, PTT INR 1.60 (0.82-1.09) H D 07/16/17 17:15 Problem List - Problems (1) GIB (gastrointestinal bleeding) Assessment/Plan: No evidence of bleeding fortunately. Code(s): K92.2 - GASTROINTESTINAL HEMORRHAGE, UNSPECIFIED Qualifiers: GI bleed type/associated pathology: unspecified gastrointestinal hemorrhage type Qualified Code(s): K92.2 - Gastrointestinal hemorrhage, unspecified (2) Diverticulosis Code(s): K57.90 - DVRTCLOS OF INTEST, PART UNSP, W/O PERF OR ABSCESS W/O BLEED (3) CVA (cerebral vascular accident) Code(s): I63.9 - CEREBRAL INFARCTION, UNSPECIFIED (4) Angiodysplasia of colon with hemorrhage Code(s): K55.21 - ANGIODYSPLASIA OF COLON WITH HEMORRHAGE (5) Colon adenomas Code(s): D12.6 - BENIGN NEOPLASM OF COLON, UNSPECIFIED
[2017-07-19] MEDS: ATORVASTATIN CA 80 MG TABLET (FP) PO SCH (21:29)
[2017-07-20] MEDS: HEPARIN - 25,000 UNIT in SODIUM CHLORIDE 495 ML IV SCH ×3 (01:00→19:44)
[2017-07-20 06:02] LABS: HEMATOCRIT 30.1 % (32.4-45.2); HEMOGLOBIN 9.5 GM/dL (10.7-15.3); MCHC 31.4 g/dl (32.0-36.0); MEAN CELL VOLUME 76.3 fl (80-96); MEAN PLT VOLUME 8.8 fl (7.5-11.1); PLATELET COUNT 317 K/MM3 (134-434); RBC 3.94 M/mm3 (3.60-5.2); RDW 19.2 % (11.6-15.6)
[2017-07-20 06:35] LABS: ALBUMIN 2.6 g/dl (3.4-5.0); BLOOD UREA NITROGEN 16 mg/dL (7-18); CALCIUM 7.9 mg/dL (8.5-10.1); CHLORIDE 111 mmol/L (98-107); POTASSIUM 4.1 mmol/L (3.5-5.1); SGOT/AST 16 U/L (15-37); SODIUM 145 mmol/L (136-145)
[2017-07-20] MEDS: NYSTATIN 500,000 UNITS/5 ML SUSPENSION PO SCH ×4 (06:50→17:24)
[2017-07-20] MEDS: FUROSEMIDE 40 MG TABLET (FP) PO SCH ×2 (06:50→16:09)
[2017-07-20 06:55] LABS: ALK PHOS 147 U/L (45-117); ANION GAP 4 (8-16); BILIRUBIN,TOTAL 0.6 mg/dL (0.2-1.0); CO2 30 mmol/L (21-32); CREATININE 0.8 mg/dL (0.55-1.02); GLUCOSE,RANDOM 170 mg/dL (74-106); MAGNESIUM 2.2 mg/dL (1.8-2.4); PHOSPHOROUS 3.8 mg/dL (2.5-4.9); SGPT/ALT 13 U/L (12-78)
[2017-07-20] MEDS: INSULIN SLIDING SCALE (NOVOLOG) 1 VIAL SQ SCH ×6 (06:56→20:36)
[2017-07-20] MEDS: PANTOPRAZOLE SODIUM 40 MG VIAL IVPUSH SCH (09:03)
[2017-07-20] MEDS: METOPROLOL TARTRATE 50 MG TABLET (FP) PO SCH ×2 (09:03→21:40)
[2017-07-20] MEDS: LISINOPRIL 10 MG TABLET (FP) PO SCH (09:03)
--- NOTE | 2017-07-20 11:33 | PN ---
Progress Note (short form) - Note Progress Note: PULMONARY/CCM Pt seen and examined in the ICU. Still with right hemiparesis and aphasic. On heparin gtt. Last Vital Signs Temp Pulse Resp BP Pulse Ox 98.3 F 112 H 28 H 118/83 100 07/20/17 08:00 07/20/17 08:00 07/20/17 08:00 07/20/17 08:00 07/20/17 09:00 Intake & Output 07/17/17 07/18/17 07/19/17 07/20/17 23:59 23:59 23:59 23:59 Intake Total 960 1216 800 Output Total 050 174 1651 Balance 720 816 -750 Weight 84.1 kg 83.007 kg 80.4 kg Gen: aphasic Heart: tachycardic, irregular Lung: decreased breath sounds at the bases Abd: soft, nontender Ext: no edema CBC, BMP 07/20/17 05:50 07/20/17 05:50 Active Medications Atorvastatin Calcium (Lipitor -) 80 mg PO HS [facility] Last Admin: 07/19/17 21:29 Dose: 80 mg Furosemide (Lasix -) 40 mg PO BID@0600,1400 [facility] Last Admin: 07/20/17 06:50 Dose: 40 mg Heparin Sodium (Porcine) (Heparin -) 1,000 unit IVPUSH PRN PRN PRN Reason: Heparin Heparin Sodium (Porcine) (Heparin -) 5,000 unit IVPUSH PRN PRN PRN Reason: Heparin Last Admin: 07/19/17 17:39 Dose: 5,000 unit Heparin Sodium (Porcine) 25, (000 unit/ Sodium Chloride) 500 mls @ 20 mls/hr IV TITR [facility]; 1,000 UNIT/HR PRN Reason: Protocol Last Admin: 07/20/17 09:03 Dose: 1,250 unit/hr, 25 mls/hr Insulin Aspart (Novolog Vial Sliding Scale -) 1 vial SQ Q4H [facility] PRN Reason: Protocol Last Admin: 07/20/17 09:04 Dose: Not Given Lisinopril (Prinivil) 10 mg PO DAILY [facility] Last Admin: 07/20/17 09:03 Dose: 10 mg Metoprolol Tartrate (Lopressor Injection -) 5 mg IVPUSH Q4H PRN PRN Reason: TACHYCARDIA Last Admin: 07/18/17 03:00 Dose: 5 mg Metoprolol Tartrate (Lopressor -) 50 mg PO BID [facility] Last Admin: 07/20/17 09:03 Dose: 50 mg Nystatin (Nystatin Oral Suspension -) 500,000 units PO Q6HPO [facility] Last Admin: 07/20/17 06:52 Dose: 500,000 units Pantoprazole Sodium (Protonix Iv) 40 mg IVPUSH DAILY [facility] Last Admin: 07/20/17 09:03 Dose: 40 mg A/P Acute CVA Acute NSTEMI LV Diastolic Dysfunction Atrial Fibrillation with RVR s/p PPM HTN DM Hyperlipidemia h/o GI Bleed Anemia - continue anticoagulation - trend cardiac enzymes - statin - monitor H/H - rate control - will need cardiac cath when stable - rehab/PT - continue ICU monitoring critical care time spent in reviewing chart, evaluating patient and formulating plan 35 min
[2017-07-20] MEDS ORDERED: INSULIN (LEVEMIR) 100 UNITS/ML UNITS SQ ONE (12:02)
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
[2017-07-20] MEDS: INSULIN (LEVEMIR) 100 UNITS/ML UNITS SQ SCH (12:07)
--- NOTE | 2017-07-20 14:01 | PN ---
Progress Note, Physician History of Present Illness: Pt's is at bedside. Pt cannot speak. Pt w/o SOB, cough, CP, palpitations, abd pain. - Current Medication List Current Medications: Active Medications Atorvastatin Calcium (Lipitor -) 80 mg PO HS [facility] Last Admin: 07/19/17 21:29 Dose: 80 mg Furosemide (Lasix -) 40 mg PO BID@0600,1400 [facility] Last Admin: 07/20/17 06:50 Dose: 40 mg Heparin Sodium (Porcine) (Heparin -) 1,000 unit IVPUSH PRN PRN PRN Reason: Heparin Heparin Sodium (Porcine) (Heparin -) 5,000 unit IVPUSH PRN PRN PRN Reason: Heparin Last Admin: 07/19/17 17:39 Dose: 5,000 unit Heparin Sodium (Porcine) 25, (000 unit/ Sodium Chloride) 500 mls @ 20 mls/hr IV TITR [facility]; 1,000 UNIT/HR PRN Reason: Protocol Last Admin: 07/20/17 09:03 Dose: 1,250 unit/hr, 25 mls/hr Insulin Aspart (Novolog Vial Sliding Scale -) 1 vial SQ Q4H [facility] PRN Reason: Protocol Last Admin: 07/20/17 12:04 Dose: 10 units Insulin Detemir (Levemir Vial) 30 units SQ ONCE [facility] Last Admin: 07/20/17 12:07 Dose: 30 units Insulin Detemir (Levemir Vial) 30 units SQ 0700 [facility] Lisinopril (Prinivil) 10 mg PO DAILY [facility] Last Admin: 07/20/17 09:03 Dose: 10 mg Metoprolol Tartrate (Lopressor Injection -) 5 mg IVPUSH Q4H PRN PRN Reason: TACHYCARDIA Last Admin: 07/18/17 03:00 Dose: 5 mg Metoprolol Tartrate (Lopressor -) 50 mg PO BID [facility] Last Admin: 07/20/17 09:03 Dose: 50 mg Nystatin (Nystatin Oral Suspension -) 500,000 units PO Q6HPO [facility] Last Admin: 07/20/17 12:14 Dose: 500,000 units Pantoprazole Sodium (Protonix Iv) 40 mg IVPUSH DAILY [facility] Last Admin: 07/20/17 09:03 Dose: 40 mg - Objective Vital Signs: Vital Signs Temperature 98.7 F 07/20/17 12:00 Pulse Rate 108 H 07/20/17 12:00 Respiratory Rate 22 07/20/17 12:00 Blood Pressure 107/62 07/20/17 12:00 O2 Sat by Pulse Oximetry (%) 100 07/20/17 09:00 Constitutional: Yes: No Distress, Calm Cardiovascular: Yes: Pulse Irregular, S1, S2 Respiratory: Yes: Regular, CTA Bilaterally. No: Rales Gastrointestinal: Yes: Normal Bowel Sounds, Soft. No: Tenderness Edema: No Neurological: Yes: Alert, Oriented, Other (motor examination is unchanged) Labs: CBC, BMP 07/20/17 05:50 07/20/17 05:50 INR, PTT INR 1.60 (0.82-1.09) H D 07/16/17 17:15 - ....Imaging Cat Scan: Report Reviewed Problem List - Problems (1) Brain bleed Code(s): I61.9 - NONTRAUMATIC INTRACEREBRAL HEMORRHAGE, UNSPECIFIED (2) NSTEMI (non-ST elevated myocardial infarction) Code(s): I21.4 - NON-ST ELEVATION (NSTEMI) MYOCARDIAL INFARCTION (3) CVA (cerebral vascular accident) Assessment/Plan: acute/ subacute CVA, in patient with NSTEMI, Hx/o A Fib and recent anemia secondary to GIB. Pt now with expressive aphasia and right hemiparesis. Code(s): I63.9 - CEREBRAL INFARCTION, UNSPECIFIED (4) Elevated troponin I level Code(s): R74.8 - ABNORMAL LEVELS OF OTHER SERUM ENZYMES (5) Anemia Code(s): D64.9 - ANEMIA, UNSPECIFIED Qualifiers: Iron deficiency anemia type: chronic blood loss (6) GIB (gastrointestinal bleeding) Code(s): K92.2 - GASTROINTESTINAL HEMORRHAGE, UNSPECIFIED Qualifiers: GI bleed type/associated pathology: unspecified gastrointestinal hemorrhage type Qualified Code(s): K92.2 - Gastrointestinal hemorrhage, unspecified (7) Atrial fibrillation Code(s): I48.91 - UNSPECIFIED ATRIAL FIBRILLATION (8) CAD (coronary artery disease) Code(s): I25.10 - ATHSCL HEART DISEASE OF [place] CORONARY ARTERY W/O ANG PCTRS (9) COPD (chronic obstructive pulmonary disease) Code(s): J44.9 - CHRONIC OBSTRUCTIVE PULMONARY DISEASE, UNSPECIFIED (10) Diabetes mellitus Code(s): E11.9 - TYPE 2 DIABETES MELLITUS WITHOUT COMPLICATIONS (11) HTN (hypertension) Code(s): I10 - ESSENTIAL (PRIMARY) HYPERTENSION (12) Hyperlipidemia Code(s): E78.5 - HYPERLIPIDEMIA, UNSPECIFIED (13) Lung nodule Code(s): R91.1 - SOLITARY PULMONARY NODULE (14) Pacemaker Code(s): Z95.0 - PRESENCE OF CARDIAC PACEMAKER Assessment/Plan Admitted to ICU IV Heparin was started on admission. Heparin was on hold fro 24 hours (secondary to intracranial bleed). Heparin was restarted yesterday and repeat Head CT scan w/o worsening bleed. Neurochecks. To monitor CE Neuro, Cardio, GI, Speech/ swallow consults and f/u appreciated, DVT proph. GI proph. AM labs. Pt's condition and treatment were reviewed with pt's at bedside. All questions were answered. Pt case was d/w her nurse. Prognosis: reserved Time spent for managing patient care: over 40 minutes.
[2017-07-20] MEDS ORDERED: HEMOQUE TEST 1 EACH EACH ONE (16:04)
[2017-07-20] MEDS: ATORVASTATIN CA 80 MG TABLET (FP) PO SCH (21:40)
[2017-07-21] MEDS: INSULIN SLIDING SCALE (NOVOLOG) 1 VIAL SQ SCH ×5 (02:49→23:10)
[2017-07-21] MEDS: FUROSEMIDE 40 MG TABLET (FP) PO SCH ×2 (05:48→14:07)
[2017-07-21] MEDS: NYSTATIN 500,000 UNITS/5 ML SUSPENSION PO SCH ×5 (05:49→23:09)
[2017-07-21] MEDS: HEPARIN - 25,000 UNIT in SODIUM CHLORIDE 495 ML IV SCH (05:51)
[2017-07-21 06:07] LABS: BASO % 0.7 % (0-2.0); EOS % 2.7 % (0-4.5); HEMATOCRIT 30.5 % (32.4-45.2); HEMOGLOBIN 9.5 GM/dL (10.7-15.3); LYMPH % 14.3 % (8-40); MCH 23.9 pg (25.7-33.7); MCHC 31.3 g/dl (32.0-36.0); MEAN CELL VOLUME 76.4 fl (80-96); MEAN PLT VOLUME 8.7 fl (7.5-11.1); MONO % 8.2 % (3.8-10.2); NEUT % 74.1 % (42.8-82.8); PLATELET COUNT 413 K/MM3 (134-434); RBC 3.99 M/mm3 (3.60-5.2); RDW 19.4 % (11.6-15.6)
[2017-07-21 06:41] LABS: CHLORIDE 112 mmol/L (98-107); POTASSIUM 3.9 mmol/L (3.5-5.1); SODIUM 147 mmol/L (136-145)
[2017-07-21] MEDS: INSULIN (LEVEMIR) 100 UNITS/ML UNITS SQ SCH (06:46)
[2017-07-21 06:52] LABS: ALBUMIN 2.7 g/dl (3.4-5.0); ALK PHOS 161 U/L (45-117); ANION GAP 5 (8-16); BILIRUBIN,TOTAL 0.6 mg/dL (0.2-1.0); BLOOD UREA NITROGEN 16 mg/dL (7-18); CALCIUM 8.3 mg/dL (8.5-10.1); CO2 30 mmol/L (21-32); CREATININE 0.9 mg/dL (0.55-1.02); GLUCOSE,RANDOM 119 mg/dL (74-106); MAGNESIUM 2.3 mg/dL (1.8-2.4); PHOSPHOROUS 3.9 mg/dL (2.5-4.9); SGOT/AST 21 U/L (15-37); SGPT/ALT 17 U/L (12-78); TOT PROT 6.1 g/dl (6.4-8.2)
[2017-07-21] MEDS: HEPARIN NA (PORCINE) 5,000 UNITS/ML 1ML VIAL IVPUSH PRN ×2 (08:31→17:02)
[2017-07-21] MEDS: LISINOPRIL 10 MG TABLET (FP) PO SCH (09:14)
[2017-07-21] MEDS: METOPROLOL TARTRATE 50 MG TABLET (FP) PO SCH ×3 (09:14→23:09)
[2017-07-21] MEDS: PANTOPRAZOLE SODIUM 40 MG VIAL IVPUSH SCH (09:14)
--- NOTE | 2017-07-21 10:31 | PN ---
Progress Note (short form) - Note Progress Note: PULMONARY/CCM Pt seen and examined in the ICU. Still with right hemiparesis and aphasic. Slight movement of right leg and hand per at bedside. On heparin gtt. Last Vital Signs Temp Pulse Resp BP Pulse Ox 98.6 F 122 H 24 130/78 98 07/21/17 04:00 07/21/17 08:00 07/21/17 08:00 07/21/17 08:00 07/21/17 08:56 Intake & Output 07/18/17 07/19/17 07/20/17 07/21/17 23:59 23:59 23:59 23:59 Intake Total 1216 800 750 275 Output Total 400 1550 1700 500 Balance 816 -750 -950 -225 Weight 83.007 kg 80.4 kg 80.399 kg Gen: aphasic Heart: tachycardic, irregular Lung: decreased breath sounds at the bases Abd: soft, nontender Ext: no edema CBC, BMP 07/21/17 05:55 07/21/17 05:55 Active Medications Atorvastatin Calcium (Lipitor -) 80 mg PO HS [facility] Last Admin: 07/20/17 21:40 Dose: 80 mg Furosemide (Lasix -) 40 mg PO BID@0600,1400 [facility] Last Admin: 07/21/17 05:48 Dose: 40 mg Heparin Sodium (Porcine) (Heparin -) 1,000 unit IVPUSH PRN PRN PRN Reason: Heparin Last Admin: 07/21/17 08:31 Dose: 1,000 unit Heparin Sodium (Porcine) (Heparin -) 5,000 unit IVPUSH PRN PRN PRN Reason: Heparin Last Admin: 07/19/17 17:39 Dose: 5,000 unit Heparin Sodium (Porcine) 25, (000 unit/ Sodium Chloride) 500 mls @ 20 mls/hr IV TITR [facility]; 1,000 UNIT/HR PRN Reason: Protocol Last Titration: 07/21/17 08:25 Dose: 1,350 unit/hr, 27 mls/hr Insulin Aspart (Novolog Vial Sliding Scale -) 1 vial SQ ACHS [facility] PRN Reason: Protocol Insulin Detemir (Levemir Vial) 30 units SQ ONCE [facility] Last Admin: 07/20/17 12:07 Dose: 30 units Insulin Detemir (Levemir Vial) 30 units SQ 0700 [facility] Last Admin: 07/21/17 06:46 Dose: 30 units Lisinopril (Prinivil) 10 mg PO DAILY [facility] Last Admin: 07/21/17 09:14 Dose: 10 mg Metoprolol Tartrate (Lopressor Injection -) 5 mg IVPUSH Q4H PRN PRN Reason: TACHYCARDIA Last Admin: 07/18/17 03:00 Dose: 5 mg Metoprolol Tartrate (Lopressor -) 50 mg PO BID [facility] Last Admin: 07/21/17 09:14 Dose: 50 mg Nystatin (Nystatin Oral Suspension -) 500,000 units PO Q6HPO [facility] Last Admin: 07/21/17 05:49 Dose: 500,000 units Pantoprazole Sodium (Protonix Iv) 40 mg IVPUSH DAILY [facility] Last Admin: 07/21/17 09:14 Dose: 40 mg A/P Acute CVA Acute NSTEMI LV Diastolic Dysfunction Atrial Fibrillation with RVR s/p PPM HTN DM Hyperlipidemia h/o GI Bleed Anemia - continue anticoagulation - statin - monitor H/H - rate control with metoprolol - will need cardiac cath when stable - rehab/PT - continue ICU monitoring, can likely transfer to telemetry in AM critical care time spent in reviewing chart, evaluating patient and formulating plan 35 min
[2017-07-21] MEDS ORDERED: DEXTROSE 50%-WATER - 25 GM/50 ML VIAL IVPUSH PRN ×2 (10:50→10:52)
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
--- NOTE | 2017-07-21 12:02 | PN ---
Progress Note, Physician History of Present Illness: Pt w/o SOB, CP, palpitations. Pt with expressive aphasia Pt's is at bedside, - Current Medication List Current Medications: Active Medications Atorvastatin Calcium (Lipitor -) 80 mg PO HS [facility] Last Admin: 07/20/17 21:40 Dose: 80 mg Dextrose (D50w (Vial) -) 25 gm IVPUSH PRN PRN PRN Reason: IF BLOOD SUGAR < 50 Dextrose (D50w (Vial) -) 12.5 gm IVPUSH PRN PRN PRN Reason: IF BLOOD SUGAR 50-69 Furosemide (Lasix -) 40 mg PO BID@0600,1400 [facility] Last Admin: 07/21/17 05:48 Dose: 40 mg Heparin Sodium (Porcine) (Heparin -) 1,000 unit IVPUSH PRN PRN PRN Reason: Heparin Last Admin: 07/21/17 08:31 Dose: 1,000 unit Heparin Sodium (Porcine) (Heparin -) 5,000 unit IVPUSH PRN PRN PRN Reason: Heparin Last Admin: 07/19/17 17:39 Dose: 5,000 unit Heparin Sodium (Porcine) 25, (000 unit/ Sodium Chloride) 500 mls @ 20 mls/hr IV TITR [facility]; 1,000 UNIT/HR PRN Reason: Protocol Last Titration: 07/21/17 08:25 Dose: 1,350 unit/hr, 27 mls/hr Insulin Aspart (Novolog Vial Sliding Scale -) 1 vial SQ ACHS [facility] PRN Reason: Protocol Insulin Detemir (Levemir Vial) 30 units SQ ONCE [facility] Last Admin: 07/20/17 12:07 Dose: 30 units Insulin Detemir (Levemir Vial) 30 units SQ 0700 [facility] Last Admin: 07/21/17 06:46 Dose: 30 units Lisinopril (Prinivil) 10 mg PO DAILY [facility] Last Admin: 07/21/17 09:14 Dose: 10 mg Metoprolol Tartrate (Lopressor Injection -) 5 mg IVPUSH Q4H PRN PRN Reason: TACHYCARDIA Last Admin: 07/18/17 03:00 Dose: 5 mg Metoprolol Tartrate (Lopressor -) 75 mg PO BID [facility] Nystatin (Nystatin Oral Suspension -) 500,000 units PO Q6HPO [facility] Last Admin: 07/21/17 05:49 Dose: 500,000 units Pantoprazole Sodium (Protonix Iv) 40 mg IVPUSH DAILY [facility] Last Admin: 07/21/17 09:14 Dose: 40 mg - Objective Vital Signs: Vital Signs Temperature 98.6 F 07/21/17 04:00 Pulse Rate 100 H 07/21/17 10:00 Respiratory Rate 24 07/21/17 10:00 Blood Pressure 106/66 07/21/17 10:00 O2 Sat by Pulse Oximetry (%) 98 07/21/17 08:56 Constitutional: Yes: No Distress, Calm Cardiovascular: Yes: Pulse Irregular, S1, S2 Respiratory: Yes: Regular, CTA Bilaterally, Other (coarse BS) Gastrointestinal: Yes: Normal Bowel Sounds, Soft. No: Tenderness Edema: No Neurological: Yes: Alert, Oriented, Other (Right hemiparesis Expressive aphasia) Labs: CBC, BMP 07/21/17 05:55 07/21/17 05:55 INR, PTT INR 1.60 (0.82-1.09) H D 07/16/17 17:15 Problem List - Problems (1) Brain bleed Code(s): I61.9 - NONTRAUMATIC INTRACEREBRAL HEMORRHAGE, UNSPECIFIED (2) NSTEMI (non-ST elevated myocardial infarction) Code(s): I21.4 - NON-ST ELEVATION (NSTEMI) MYOCARDIAL INFARCTION (3) CVA (cerebral vascular accident) Code(s): I63.9 - CEREBRAL INFARCTION, UNSPECIFIED (4) Elevated troponin I level Code(s): R74.8 - ABNORMAL LEVELS OF OTHER SERUM ENZYMES (5) Anemia Code(s): D64.9 - ANEMIA, UNSPECIFIED Qualifiers: Iron deficiency anemia type: chronic blood loss (6) GIB (gastrointestinal bleeding) Code(s): K92.2 - GASTROINTESTINAL HEMORRHAGE, UNSPECIFIED Qualifiers: GI bleed type/associated pathology: unspecified gastrointestinal hemorrhage type Qualified Code(s): K92.2 - Gastrointestinal hemorrhage, unspecified (7) Atrial fibrillation Code(s): I48.91 - UNSPECIFIED ATRIAL FIBRILLATION (8) CAD (coronary artery disease) Code(s): I25.10 - ATHSCL HEART DISEASE OF [place] CORONARY ARTERY W/O ANG PCTRS (9) COPD (chronic obstructive pulmonary disease) Code(s): J44.9 - CHRONIC OBSTRUCTIVE PULMONARY DISEASE, UNSPECIFIED (10) Diabetes mellitus Code(s): E11.9 - TYPE 2 DIABETES MELLITUS WITHOUT COMPLICATIONS (11) HTN (hypertension) Code(s): I10 - ESSENTIAL (PRIMARY) HYPERTENSION (12) Hyperlipidemia Code(s): E78.5 - HYPERLIPIDEMIA, UNSPECIFIED (13) Lung nodule Code(s): R91.1 - SOLITARY PULMONARY NODULE (14) Pacemaker Code(s): Z95.0 - PRESENCE OF CARDIAC PACEMAKER Assessment/Plan Admitted to ICU IV Heparin was started on admission. Heparin was stopped secondary to intracranial bleed; 24 hours later Heparin was restarted. Neurochecks To monitor CE Neuro, Cardio, GI, Speech/ swallow consults and f/u appreciated, DVT proph. GI proph. AM labs. Pt's condition and treatment were reviewed with pt's at bedside. All questions were answered. Prognosis: reserved Time spent for managing patient care: over 40 minutes.
--- NOTE | 2017-07-21 14:22 | PN ---
Progress Note (short form) - Note Progress Note: 7 YO Hx/o A Fib on AC, recent GIB and anemia requiring PRBC transfusion and EGD / colonoscopy (s/p four colon polyp resection), off Coumadin post colon polyp resection (was restarted on 07/13/17) , was in [employer] store 07/16/17 (she dropped an item from the cart without noticing it- per her ) and later in [employer] store when developed garbled speech. Pt came by EMS to ER, found to have dysarthria and left side tongue deviation, had head CT scan (negative for acute event); found to have SUB TX INR spoke to ER at the time, low NIH - HX of coumadin , recent GI BLEED, no TPA given pt was diagnosed with TIA and was started on IV Heparin. HX of GI bleed-- but risk/benefits discussed with team and was cleared for HEPARIN FU : R sided weakness worse, aphasic rpt HD CT No significant interval change in the size or appearance of the previously visualized acute/ subacute infarct in the right occipital lobe with questionable minimal hemorrhage, for which continued follow-up or an MRI is needed. - Past Medical History Cardio/Vascular: Yes: AFIB (on AC), Aortic Stenosis (s/p ring repair at [facility]), CAD, HTN, Other (PPM) Pulmonary: Yes: COPD Gastrointestinal: Yes: GI Bleed, Other (colon polyps, s/p four polyps resection) ...: No Rheumatology: Yes: Other (osteoarthritis) Endocrine: Yes: Diabetes Mellitus - Alcohol/Substance Use Hx Alcohol Use: No History of Substance Use: reports: None - Smoking History Smoking history: Former smoker Have you smoked in the past 12 months: No If you are a former smoker, when did you quit?: 2007 - Social History Usual Living Arrangement: With Spouse ADL: Independent 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 History of Recent Travel: No Home Medications - Allergies Allergies/Adverse Reactions: Allergies Allergy/AdvReac Type Severity Reaction Status Date / Time No Known Allergies Allergy Verified 07/16/17 16:49 - Home Medications Home Medications: Ambulatory Orders Amlodipine Besylate [Norvasc -] 10 mg PO DAILY 06/28/16 Aspirin [ASA -] 81 mg PO DAILY 06/28/16 Lisinopril 10 mg PO DAILY 06/28/16 Simvastatin 10 mg PO DAILY 06/28/16 Furosemide [Lasix -] 40 mg PO BID@0600,1400 #180 tablet 07/04/16 Insulin (Levemir) [Levemir Vial] 38 units SQ ACBK 07/03/17 Sitagliptin Phos/Metformin HCl [Janumet 50-1,000 mg Tablet] 1 each PO DAILY 04/21 Ascorbic Acid [Vitamin C -] 500 mg PO BID 30 Days #60 tablet MDD 2 07/10/17 Bacitracin - [Bacitracin Topical Ointment -] 1 applic TP BID tube 07/10/17 Ferrous Sulfate [Feosol] 325 mg PO BID #60 ud MDD 2 07/10/17 Warfarin Na [Coumadin -] 5 mg PO SuTuThSa@18 #0 tablet 07/10/17 Warfarin Na [Coumadin -] 6 mg PO MoWeFr@1800 #0 tablet 07/10/17 Metoprolol Succinate [Toprol XL -] 50 mg PO DAILY 07/17/17 Polyethylene Glycol 3350 [Miralax 119 gm Btl -] 17 gm PO BID PRN MDD 2 07/17/17 Family Disease History - Family Disease History Family Disease History: Heart Disease: Father ( VT age 67), Mother ( CHF in her 70's) Physical Exam-Neuro - Neuro Exam Level Of Consciousness:Exam: Awake, no vocalizations, moves left side to command , right side minimally NIH Stroke Scale - Last Known Well Date/Time & Onset Date Last Known Well: 07/16/17 Time Last Known Well: 16:00 - Initial Evaluation Level of consciousness: Not alert, but arousable with minimal stimulation Ask patient the month and their age: Both incorrect Ask patient to open & close eyes; make fist and let go: Both incorrect Best gaze (horizontal eye movement): Normal Visual field testing: No visual field loss Facial paresis (Show teeth/raise eyebrows/close eyes tight): Partial paralysis ( total or near paralysis of lower face) Motor Function: Left Arm: Normal Motor Function: Right Arm: Drift Motor Function: Left Leg: Normal (extends leg 30 degrees for 5 seconds without drift) Motor Function: Right Leg: Normal (extends leg 30 degrees for 5 seconds without drift) Limb Ataxia: No ataxia Sensory(Use pinprick test arms,legs,trunk,face/side to side): Normal Best language (Describe picture, name items, read sentences): Severe aphasia Dysarthria (read several words): Near unintelligible or unable to speak Extinction and Inattention: No abnormality (12) - Total Score NIH Stroke Scale Score: 12 Assessment/Plan Hx/o A Fib on AC, recent GIB and anemia requiring PRBC transfusion and EGD/ colonoscopy (s/p four colon polyp resection), off Coumadin post colon polyp resection (was recently restarted in 07/13/17) , with new onset aphasia, dysarthria on 07/16/17 ound to have SUB TX INR in ER spoke to ER at the time, low NIH - HX of coumadin , recent GI bleed , no TPA given pt was diagnosed with TIA and was started on IV Heparin. HX of GI bleed--HX of GI bleed-- but risk/benefits discussed with team and was cleared for HEPARIN Sx progressed through out day L MCA STROKE -- from afib , sub TX INR, with expressive aphasia and R HEMIP; min hemorrhage on CT--- held heparin x 24 hours and now back on it. Is due for repeat head CT, though she certainly looks clinically stable.
[2017-07-21] MEDS: ATORVASTATIN CA 80 MG TABLET (FP) PO SCH (23:08)
[2017-07-22] MEDS: HEPARIN - 25,000 UNIT in SODIUM CHLORIDE 495 ML IV SCH ×4 (00:54→22:24)
[2017-07-22] MEDS: NYSTATIN 500,000 UNITS/5 ML SUSPENSION PO SCH ×3 (05:52→23:38)
[2017-07-22] MEDS: FUROSEMIDE 40 MG TABLET (FP) PO SCH ×2 (05:52→13:43)
[2017-07-22] MEDS: INSULIN (LEVEMIR) 100 UNITS/ML UNITS SQ SCH (06:02)
[2017-07-22] MEDS: INSULIN SLIDING SCALE (NOVOLOG) 1 VIAL SQ SCH ×4 (06:03→23:38)
[2017-07-22 06:30] LABS: BASO % 0.6 % (0-2.0); EOS % 2.7 % (0-4.5); HEMATOCRIT 30.9 % (32.4-45.2); HEMOGLOBIN 9.7 GM/dL (10.7-15.3); LYMPH % 13.6 % (8-40); MCH 23.8 pg (25.7-33.7); MCHC 31.3 g/dl (32.0-36.0); MEAN PLT VOLUME 8.7 fl (7.5-11.1); MONO % 8.5 % (3.8-10.2); NEUT % 74.6 % (42.8-82.8); PLATELET COUNT 438 K/MM3 (134-434); RBC 4.07 M/mm3 (3.60-5.2); RDW 19.5 % (11.6-15.6); WHITE BLOOD COUNT 10.9 K/mm3 (4.0-10.0)
[2017-07-22 06:46] LABS: CHLORIDE 110 mmol/L (98-107); POTASSIUM 3.8 mmol/L (3.5-5.1); SODIUM 145 mmol/L (136-145)
[2017-07-22 06:58] LABS: ALBUMIN 2.6 g/dl (3.4-5.0); ALK PHOS 165 U/L (45-117); ANION GAP 6 (8-16); BILIRUBIN,TOTAL 0.6 mg/dL (0.2-1.0); BLOOD UREA NITROGEN 13 mg/dL (7-18); CALCIUM 8.3 mg/dL (8.5-10.1); CO2 29 mmol/L (21-32); CREATININE 0.8 mg/dL (0.55-1.02); GLUCOSE,RANDOM 160 mg/dL (74-106); MAGNESIUM 2.2 mg/dL (1.8-2.4); SGOT/AST 25 U/L (15-37); SGPT/ALT 21 U/L (12-78); TOT PROT 5.8 g/dl (6.4-8.2)
--- NOTE | 2017-07-22 07:32 | PN ---
Progress Note (short form) - Note Progress Note: S: -- Minimal mvmt in RLE -- Gradually worsening mental status. Repeat scan shows no bleed. -- HR 90s-100s. Increased Lopressor BID --> TID O: Vital Signs Period Temp Pulse Resp BP Sys/[place] Pulse Ox Last 24 Hr 98 F-98.5 F 24-122 20-26 106-152/64-86 98-98 Tele - Tachy 90s-100s GEN: Awake, alert, still has expressive aphasia HEENT: PERRLA, no JVD CV: S1, S2, RRR LUNG: Bibasilar crackles ABD: Soft, NT, ND MSK: No edema, no erythema NEURO: Still 0/5 strength in RUE and RLE. 4/5 LUE and LLE. A/P: 77yo F with PMHx of Afib who was briefly taken off Coumadin for recent GIB requiring transfusion and scoping who developed L CVA. # Acute L MCA Embolic Stroke -- Patient was off AC for five days due to recent GIB and subsequent diagnostic scopes. Presented w/ dysarthria, low NIH. No tPA due to GIB. No MRI due to ppm. Placed on Hep ggt. Risks/benefits discussed. Gradually developed expressive aphasia and R hemiparesis. Heparin was held x24h after CT shows stable minimal ?hemorrhagic conversion, but was restarted after subsequent head CT showed no change. Will obtain PM&R consult for rehab. # Afib w/ PPM -- Increased dose of Lopressor 75po BID --> TID. IV Lopressor prn for RVR. Hep ggt for AC # Recent GIB -- Likely from vascular ectasias. Resolving as per recent colonoscopy. Need outpatient capsule endoscopy to ensure no other source. No active GIB katlyn. FOBT neg. # Microcytic Anemia -- Recent labs c/w DEANGELO. On iron supplements as outpatient. # NSTEMI -- Trops peaked. No active CP. EKG unchanged. Has cardiac RF. Continue tele. Echo. Continue hep ggt. Will need eventual cardiac cath. ASA/Plavix when able to take PO # dCHF -- Not in exacerbation. Continue home Lasix PO 40bid # IDDM -- Levemir 30u. ISS and BGM achs # HTN -- Lopressor 75po TID w/ Lisinoprol 10 # FEN/PPx -- No IVF. Diabetic dysphagia puree. Hep ggt. PPI # Dispo -- Transfer to tele Som Marx MD pGY1 ICU Resident
[2017-07-22] MEDS: LISINOPRIL 10 MG TABLET (FP) PO SCH (09:07)
[2017-07-22] MEDS: METOPROLOL TARTRATE 50 MG TABLET (FP) PO SCH ×2 (09:07→21:08)
--- NOTE | 2017-07-22 09:35 | PN ---
Progress Note, Physician History of Present Illness: Pt w/o SOB, CP, palpitations. Pt with expressive aphasia Pt was seen and examined in ICU. - Current Medication List Current Medications: Active Medications Atorvastatin Calcium (Lipitor -) 80 mg PO HS [facility] Last Admin: 07/21/17 23:08 Dose: 80 mg Dextrose (D50w (Vial) -) 25 gm IVPUSH PRN PRN PRN Reason: IF BLOOD SUGAR < 50 Dextrose (D50w (Vial) -) 12.5 gm IVPUSH PRN PRN PRN Reason: IF BLOOD SUGAR 50-69 Furosemide (Lasix -) 40 mg PO BID@0600,1400 [facility] Last Admin: 07/22/17 05:52 Dose: 40 mg Heparin Sodium (Porcine) (Heparin -) 1,000 unit IVPUSH PRN PRN PRN Reason: Heparin Last Admin: 07/21/17 17:02 Dose: 1,000 unit Heparin Sodium (Porcine) (Heparin -) 5,000 unit IVPUSH PRN PRN PRN Reason: Heparin Last Admin: 07/19/17 17:39 Dose: 5,000 unit Heparin Sodium (Porcine) 25, (000 unit/ Sodium Chloride) 500 mls @ 20 mls/hr IV TITR [facility]; 1,000 UNIT/HR PRN Reason: Protocol Last Admin: 07/22/17 01:18 Dose: 1,450 unit/hr, 29 mls/hr Insulin Aspart (Novolog Vial Sliding Scale -) 1 vial SQ ACHS [facility] PRN Reason: Protocol Last Admin: 07/22/17 06:03 Dose: 2 units Insulin Detemir (Levemir Vial) 30 units SQ 0700 [facility] Last Admin: 07/22/17 06:02 Dose: 30 units Lisinopril (Prinivil) 10 mg PO DAILY [facility] Last Admin: 07/22/17 09:07 Dose: 10 mg Metoprolol Tartrate (Lopressor Injection -) 5 mg IVPUSH Q4H PRN PRN Reason: TACHYCARDIA Last Admin: 07/18/17 03:00 Dose: 5 mg Metoprolol Tartrate (Lopressor -) 75 mg PO BID [facility] Last Admin: 07/22/17 09:07 Dose: 75 mg Nystatin (Nystatin Oral Suspension -) 500,000 units PO Q6HPO [facility] Last Admin: 07/22/17 05:52 Dose: 500,000 units Pantoprazole Sodium (Protonix -) 40 mg PO DAILY [facility] Last Admin: 07/22/17 09:07 Dose: 40 mg - Objective Vital Signs: Vital Signs Temperature 98 F 07/22/17 06:00 Pulse Rate 112 H 07/22/17 06:00 Respiratory Rate 23 07/22/17 06:00 Blood Pressure 152/86 07/22/17 06:00 O2 Sat by Pulse Oximetry (%) 98 07/21/17 22:00 Constitutional: Yes: No Distress, Calm Neck: Yes: Trachea Midline Cardiovascular: Yes: Tachycardia, S1, S2 Respiratory: Yes: Regular, CTA Bilaterally. No: Rales Gastrointestinal: Yes: Normal Bowel Sounds, Soft. No: Tenderness Edema: No Neurological: Yes: Alert, Oriented, Other (unchanged right side examination.) Psychiatric: Yes: Alert, Oriented Labs: CBC, BMP 07/22/17 05:50 07/22/17 05:50 INR, PTT INR 1.60 (0.82-1.09) H D 07/16/17 17:15 - ....Imaging Cat Scan: Report Reviewed Problem List - Problems (1) Brain bleed Assessment/Plan: No new findings on recent Head CT scans Code(s): I61.9 - NONTRAUMATIC INTRACEREBRAL HEMORRHAGE, UNSPECIFIED (2) NSTEMI (non-ST elevated myocardial infarction) Code(s): I21.4 - NON-ST ELEVATION (NSTEMI) MYOCARDIAL INFARCTION (3) CVA (cerebral vascular accident) Assessment/Plan: Subacute right occipital infarct Acute/subacute left frontal lobe in the [facility] territory. Code(s): I63.9 - CEREBRAL INFARCTION, UNSPECIFIED (4) Elevated troponin I level Code(s): R74.8 - ABNORMAL LEVELS OF OTHER SERUM ENZYMES (5) Anemia Code(s): D64.9 - ANEMIA, UNSPECIFIED Qualifiers: Iron deficiency anemia type: chronic blood loss (6) GIB (gastrointestinal bleeding) Code(s): K92.2 - GASTROINTESTINAL HEMORRHAGE, UNSPECIFIED Qualifiers: GI bleed type/associated pathology: unspecified gastrointestinal hemorrhage type Qualified Code(s): K92.2 - Gastrointestinal hemorrhage, unspecified (7) Atrial fibrillation Code(s): I48.91 - UNSPECIFIED ATRIAL FIBRILLATION (8) CAD (coronary artery disease) Code(s): I25.10 - ATHSCL HEART DISEASE OF [place] CORONARY ARTERY W/O ANG PCTRS (9) COPD (chronic obstructive pulmonary disease) Code(s): J44.9 - CHRONIC OBSTRUCTIVE PULMONARY DISEASE, UNSPECIFIED (10) Diabetes mellitus Code(s): E11.9 - TYPE 2 DIABETES MELLITUS WITHOUT COMPLICATIONS (11) HTN (hypertension) Code(s): I10 - ESSENTIAL (PRIMARY) HYPERTENSION (12) Hyperlipidemia Code(s): E78.5 - HYPERLIPIDEMIA, UNSPECIFIED (13) Lung nodule Code(s): R91.1 - SOLITARY PULMONARY NODULE (14) Pacemaker Code(s): Z95.0 - PRESENCE OF CARDIAC PACEMAKER Assessment/Plan Admitted to ICU IV Heparin was started on admission. Heparin was stopped secondary to intracranial bleed; 24 hours later Heparin was restarted, patinet is tolerating it well. Neurochecks To monitor CE- trending down. Neuro, Cardio, GI, Speech/ swallow consults and f/u appreciated, DVT proph. GI proph. AM labs. Pt's Glc is trending up as pt PO intake improves; consider increasing Levemir. Pt's care was d/w pt's nurse. Prognosis: reserved Time spent for managing patient care: over 40 minutes.
[2017-07-22] MEDS ORDERED: PANTOPRAZOLE 40 MG TABLET (FP) PO SCH (10:00)
--- NOTE | 2017-07-22 10:39 | PN ---
Progress Note, [employer] - Note Progress Note: Selected Entries 07/21/17 07/21/17 07/21/17 04:00 09:53 10:00 Breakfast 100% Lunch Temperature 98.6 F 98.4 F 07/21/17 07/21/17 07/22/17 14:11 18:00 02:00 Breakfast Lunch 100% Temperature 98.5 F 98 F 07/22/17 07/22/17 07/22/17 06:00 10:13 10:14 Breakfast 75% Lunch Temperature 98 F 99.6 F Laboratory Tests 07/20/17 07/21/17 07/22/17 05:50 05:55 05:50 WBC 10.0 11.0 H 10.9 H Pt on pureed diet/nectar thick liquids. Repeat CT head noted- "Evolving" infarcts. For me she is significantly worse today. She is MUTE, no vocalizations aT ALL. No repetition or even unintelligible attempts at verbalizations. No spontaneous use of gesture and rare, diminished y/n headshake response(100% last week) . Establishes and maintains eye contact. May undeerstand but unable to demonstrate (Increased oral/verbal/limb apraxia suspected.) Unable to point to communication board (100% last week) Able to imitate gestures but perseverates on the same ones without appropriate spontaneity. Swallowing overtly functional for pureed diet/nectar. I would not upgrade diet at this time. Defer MBS for diet upgrade. However, if noted cough, congestion, fever, MBS to r/o silent aspiration. Reviewed with Critical Care, Nursing. PMR consult Pt will need intensive therapy- Acute rehab vs STR
[2017-07-22] MEDS ORDERED: METOPROLOL TARTRATE 50 MG TABLET (FP) PO SCH (14:00)
--- NOTE | 2017-07-22 14:25 | PN ---
Teaching Attending Note Name of Resident: Som Marx ATTENDING PHYSICIAN STATEMENT I saw and evaluated the patient. I reviewed the resident's note and discussed the case with the resident. I agree with the resident's findings and plan as documented. SUBJECTIVE: Patient seen and examined in the ICU. Still with right hemiparesis and aphasic. Slight movement of right leg and hand per at bedside. Remains on heparin drip. Intake & Output 07/19/17 07/20/17 07/21/17 07/22/17 23:59 23:59 23:59 23:59 Intake Total 663 344 1946 398 Output Total 1550 1700 2100 1200 Balance -750 -950 -475 -802 Weight 177 lb 4.026 oz 177 lb 4 oz 176 lb 3 oz Last Vital Signs Temp Pulse Resp BP Pulse Ox 98.6 F 101 H 22 111/74 98 07/22/17 12:30 07/22/17 13:50 07/22/17 13:50 07/22/17 13:50 07/22/17 10:17 Active Medications Atorvastatin Calcium (Lipitor -) 80 mg PO HS [facility] Last Admin: 07/21/17 23:08 Dose: 80 mg Dextrose (D50w (Vial) -) 25 gm IVPUSH PRN PRN PRN Reason: IF BLOOD SUGAR < 50 Dextrose (D50w (Vial) -) 12.5 gm IVPUSH PRN PRN PRN Reason: IF BLOOD SUGAR 50-69 Furosemide (Lasix -) 40 mg PO BID@0600,1400 [facility] Last Admin: 07/22/17 13:43 Dose: 40 mg Heparin Sodium (Porcine) (Heparin -) 1,000 unit IVPUSH PRN PRN PRN Reason: Heparin Last Admin: 07/21/17 17:02 Dose: 1,000 unit Heparin Sodium (Porcine) (Heparin -) 5,000 unit IVPUSH PRN PRN PRN Reason: Heparin Last Admin: 07/19/17 17:39 Dose: 5,000 unit Heparin Sodium (Porcine) 25, (000 unit/ Sodium Chloride) 500 mls @ 20 mls/hr IV TITR [facility]; 1,000 UNIT/HR PRN Reason: Protocol Last Admin: 07/22/17 01:18 Dose: 1,450 unit/hr, 29 mls/hr Insulin Aspart (Novolog Vial Sliding Scale -) 1 vial SQ ACHS [facility] PRN Reason: Protocol Last Admin: 07/22/17 11:10 Dose: 10 units Insulin Detemir (Levemir Vial) 30 units SQ 0700 [facility] Last Admin: 07/22/17 06:02 Dose: 30 units Lisinopril (Prinivil) 10 mg PO DAILY [facility] Last Admin: 07/22/17 09:07 Dose: 10 mg Metoprolol Tartrate (Lopressor Injection -) 5 mg IVPUSH Q4H PRN PRN Reason: TACHYCARDIA Last Admin: 07/18/17 03:00 Dose: 5 mg Metoprolol Tartrate (Lopressor -) 75 mg PO TID [facility] Last Admin: 07/22/17 13:48 Dose: Not Given Nystatin (Nystatin Oral Suspension -) 500,000 units PO Q6HPO [facility] Last Admin: 07/22/17 11:19 Dose: 500,000 units Pantoprazole Sodium (Protonix -) 40 mg PO DAILY [facility] Last Admin: 07/22/17 09:07 Dose: 40 mg Gen: aphasic Heart: tachycardic, irregular Lung: decreased breath sounds at the bases Abd: soft, nontender Ext: no edema Laboratory Results - last 24 hr 07/21/17 07/21/17 07/21/17 15:00 17:30 21:49 WBC RBC Hgb Hct MCV MCH MCHC RDW Plt Count MPV Neutrophils % Lymphocytes % Monocytes % Eosinophils % Basophils % PTT (Actin FS) 44.3 H Sodium Potassium Chloride Carbon Dioxide Anion Gap BUN Creatinine Creat Clearance w eGFR POC Glucometer [phone] Random Glucose Calcium Phosphorus Magnesium Total Bilirubin AST ALT Alkaline Phosphatase Creatine Kinase Troponin I Total Protein Albumin Stool Occult Blood Negative 07/21/17 07/22/17 07/22/17 22:20 05:40 05:50 WBC RBC Hgb Hct MCV MCH MCHC RDW Plt Count MPV Neutrophils % Lymphocytes % Monocytes % Eosinophils % Basophils % PTT (Actin FS) 69.4 H D 62.7 H Sodium Potassium Chloride Carbon Dioxide Anion Gap BUN Creatinine Creat Clearance w eGFR POC Glucometer [phone] Random Glucose Calcium Phosphorus Magnesium Total Bilirubin AST ALT Alkaline Phosphatase Creatine Kinase Troponin I Total Protein Albumin Stool Occult Blood 07/22/17 07/22/17 07/22/17 05:50 05:50 05:50 WBC 10.9 H RBC 4.07 Hgb 9.7 L Hct 30.9 L MCV 76.0 L MCH 23.8 L MCHC 31.3 L RDW 19.5 H Plt Count 438 H MPV 8.7 Neutrophils % 74.6 Lymphocytes % 13.6 Monocytes % 8.5 Eosinophils % 2.7 Basophils % 0.6 PTT (Actin FS) Sodium 145 Potassium 3.8 Chloride 110 H Carbon Dioxide 29 Anion Gap 6 L BUN 13 Creatinine 0.8 Creat Clearance w eGFR > 60 POC Glucometer Random Glucose 160 H Calcium 8.3 L Phosphorus 4.0 Magnesium 2.2 Total Bilirubin 0.6 AST 25 ALT 21 Alkaline Phosphatase 165 H Creatine Kinase 17 L Troponin I 0.77 H* Total Protein 5.8 L Albumin 2.6 L Stool Occult Blood A/P Acute CVA Acute NSTEMI LV Diastolic Dysfunction Atrial Fibrillation with RVR s/p PPM HTN DM Hyperlipidemia h/o GI Bleed Anemia - AC, will need to decide or oral therapy - Statin - Monitor H/H - Rate control with metoprolol - rehab/PT - Cardiac Telemetry monitoring Dr Stover Critical care time spent in reviewing chart, evaluating patient and formulating plan 36 min
--- NOTE | 2017-07-22 15:12 | PN ---
Progress Note (short form) - Note Progress Note: CC: cva/nstemi S: lopressor increased to 75 tid. remains aphasic. appears comfortable. Current Medications Atorvastatin Calcium (Lipitor -) 80 mg PO HS [facility] Last Admin: 07/21/17 23:08 Dose: 80 mg Dextrose (D50w (Vial) -) 25 gm IVPUSH PRN PRN PRN Reason: IF BLOOD SUGAR < 50 Dextrose (D50w (Vial) -) 12.5 gm IVPUSH PRN PRN PRN Reason: IF BLOOD SUGAR 50-69 Furosemide (Lasix -) 40 mg PO BID@0600,1400 [facility] Last Admin: 07/22/17 13:43 Dose: 40 mg Heparin Sodium (Porcine) (Heparin -) 1,000 unit IVPUSH PRN PRN PRN Reason: Heparin Last Admin: 07/21/17 17:02 Dose: 1,000 unit Heparin Sodium (Porcine) (Heparin -) 5,000 unit IVPUSH PRN PRN PRN Reason: Heparin Last Admin: 07/19/17 17:39 Dose: 5,000 unit Heparin Sodium (Porcine) 25, (000 unit/ Sodium Chloride) 500 mls @ 20 mls/hr IV TITR [facility]; 1,000 UNIT/HR PRN Reason: Protocol Last Admin: 07/22/17 01:18 Dose: 1,450 unit/hr, 29 mls/hr Insulin Aspart (Novolog Vial Sliding Scale -) 1 vial SQ ACHS [facility] PRN Reason: Protocol Last Admin: 07/22/17 11:10 Dose: 10 units Insulin Detemir (Levemir Vial) 30 units SQ 0700 [facility] Last Admin: 07/22/17 06:02 Dose: 30 units Lisinopril (Prinivil) 10 mg PO DAILY [facility] Last Admin: 07/22/17 09:07 Dose: 10 mg Metoprolol Tartrate (Lopressor Injection -) 5 mg IVPUSH Q4H PRN PRN Reason: TACHYCARDIA Last Admin: 07/18/17 03:00 Dose: 5 mg Metoprolol Tartrate (Lopressor -) 75 mg PO TID [facility] Last Admin: 07/22/17 13:48 Dose: Not Given Nystatin (Nystatin Oral Suspension -) 500,000 units PO Q6HPO [facility] Last Admin: 07/22/17 11:19 Dose: 500,000 units Pantoprazole Sodium (Protonix -) 40 mg PO DAILY [facility] Last Admin: 07/22/17 09:07 Dose: 40 mg - Objective Vital Signs - 24 hr 07/21/17 07/21/17 07/21/17 16:00 18:00 22:00 Temperature 98.5 F Pulse Rate 24 L 102 H Respiratory 26 H 22 Rate Blood Pressure 130/78 139/64 O2 Sat by Pulse 98 Oximetry (%) 07/22/17 07/22/17 07/22/17 00:00 02:00 04:00 Temperature 98 F Pulse Rate 93 H 109 H 102 H Respiratory 23 22 20 Rate Blood Pressure 119/79 130/70 145/81 O2 Sat by Pulse Oximetry (%) 07/22/17 07/22/17 07/22/17 06:00 10:14 10:17 Temperature 98 F 99.6 F Pulse Rate 112 H 69 Respiratory 23 24 Rate Blood Pressure 152/86 117/51 O2 Sat by Pulse 98 Oximetry (%) 07/22/17 07/22/17 07/22/17 12:00 12:30 13:50 Temperature 98.6 F Pulse Rate 88 101 H Respiratory 22 22 Rate Blood Pressure 123/50 111/74 O2 Sat by Pulse Oximetry (%) 07/22/17 14:59 Temperature Pulse Rate 100 H Respiratory 24 Rate Blood Pressure 133/68 O2 Sat by Pulse Oximetry (%) Intake & Output 07/20/17 07/21/17 07/22/17 07/23/17 07:59 07:59 07:59 07:59 Intake Total 700 1025 1748 Output Total 1550 2200 2800 Balance -959 -4575 -1052 Weight 177 lb 4 oz 176 lb 3 oz nad, aphasic jvd flat, neck supple irreg, s1s2 no mrg ctab, nl eff abd nt nd pos bs no jaundice diaphoresis alert no le edema bl, no c/c Labs: CBC, BMP 07/22/17 05:50 07/22/17 05:50 tele: afib, rate 100's-110s ecg: afib rate 110s, nl qtc, no ischemic changes, nonspec st-t changes, no sig change from prior ecg earlier this month echo 06/2016: nl lv/rv, mild emmanuelle, mv ring, mod tr, mild phtn echo 07/2017: nl lv, rv tds, emmanuelle, mod-sev tr, nl rvsp cxr: no sig chf endoscopy 07/2017: Bleeding source appears to be vascular ectasias, likely in the small bowel as large cecal nonbleeding angiodysplasias were seen. 4 colon polyps were removed. Should have capsule endoscopy as outpatient. Assessment/Plan a/p: hpi: 77 f hx mv ring repair 2009, afib, dm, htn, ppm, hld, chf here with difficulty speaking. cva: -occurred in setting of holding coumadin for 5 days 2/2 gib and polypectomy -head ct shows possible bleed near cva so hep gtt stopped 07/18, cleared to resume 07/19 by neuro -neuro following NSTEMI: -no cp at present -ecg unchanged from prior -echo with nl lvef -cont tele -hep gtt -asa/plavix not given due to possible bleed on head ct -will likely need cardiac cath after acute cva issues resolve -07/20: Troponin down trending 2.15 (3.52) -07/21: Stable anemia: -endoscopy 07/2017: Bleeding source appears to be vascular ectasias, likely in the small bowel. -hgb stable today (07/20) 9.5 (9.3) -07/21: Hgb stable at 9.5 chronic diastolic chf: -stable, cont lasix 40 po bid mv repair: -normal fcn on recent echo afib: -on hep gtt -rvr at times but now getting po meds. -07/21: RVR overnight -07/21-: Further uptitrated lopressor.
[2017-07-22] MEDS ORDERED: INSULIN REGULAR HUMAN 100 UNITS/ML *VIAL SQ ONE (15:21)
[2017-07-22] MEDS ORDERED: INSULIN (NOVOLOG) ASPART 100 UNITS/ML 10ML VIAL SQ ONE (15:21)
[2017-07-22] MEDS ORDERED: INSULIN SLIDING SCALE (NOVOLOG) 1 VIAL SQ ONE (15:21)
--- NOTE | 2017-07-22 16:50 | PN ---
Progress Note (short form) - Note Progress Note: 7 YO Hx/o A Fib on AC, recent GIB and anemia requiring PRBC transfusion and EGD / colonoscopy (s/p four colon polyp resection), off Coumadin post colon polyp resection (was restarted on 07/13/17) , was in [employer] store 07/16/17 (she dropped an item from the cart without noticing it- per her ) and later in [employer] store when developed garbled speech. Pt came by EMS to ER, found to have dysarthria and left side tongue deviation, had head CT scan (negative for acute event); found to have SUB TX INR spoke to ER at the time, low NIH - HX of coumadin , recent GI BLEED, no TPA given pt was diagnosed with TIA and was started on IV Heparin. HX of GI bleed-- but risk/benefits discussed with team and was cleared for HEPARIN FU : R sided weakness worse, aphasic rpt HD CT No significant interval change in the size or appearance of the previously visualized acute/ subacute infarct in the right occipital lobe with questionable minimal hemorrhage, for which continued follow-up or an MRI is needed. - Past Medical History Cardio/Vascular: Yes: AFIB (on AC), Aortic Stenosis (s/p ring repair at [facility]), CAD, HTN, Other (PPM) Pulmonary: Yes: COPD Gastrointestinal: Yes: GI Bleed, Other (colon polyps, s/p four polyps resection) ...: No Rheumatology: Yes: Other (osteoarthritis) Endocrine: Yes: Diabetes Mellitus - Alcohol/Substance Use Hx Alcohol Use: No History of Substance Use: reports: None - Smoking History Smoking history: Former smoker Have you smoked in the past 12 months: No If you are a former smoker, when did you quit?: 2007 - Social History Usual Living Arrangement: With Spouse ADL: Independent 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 [employer] History of Recent Travel: No Home Medications - Allergies Allergies/Adverse Reactions: Allergies Allergy/AdvReac Type Severity Reaction Status Date / Time No Known Allergies Allergy Verified 07/16/17 16:49 - Home Medications Home Medications: Ambulatory Orders Amlodipine Besylate [Norvasc -] 10 mg PO DAILY 06/28/16 Aspirin [ASA -] 81 mg PO DAILY 06/28/16 Lisinopril 10 mg PO DAILY 06/28/16 Simvastatin 10 mg PO DAILY 06/28/16 Furosemide [Lasix -] 40 mg PO BID@0600,1400 #180 tablet 07/04/16 Insulin (Levemir) [Levemir Vial] 38 units SQ [facility] 07/03/17 Sitagliptin Phos/Metformin HCl [Janumet 50-1,000 mg Tablet] 1 each PO DAILY 04/21 Ascorbic Acid [Vitamin C -] 500 mg PO BID 30 Days #60 tablet MDD 2 07/10/17 Bacitracin - [Bacitracin Topical Ointment -] 1 applic TP BID tube 07/10/17 Ferrous Sulfate [Feosol] 325 mg PO BID #60 ud MDD 2 07/10/17 Warfarin Na [Coumadin -] 5 mg PO SuTuThSa@18 #0 tablet 07/10/17 Warfarin Na [Coumadin -] 6 mg PO MoWeFr@1800 #0 tablet 07/10/17 Metoprolol Succinate [Toprol XL -] 50 mg PO DAILY 07/17/17 Polyethylene Glycol 3350 [Miralax 119 gm Btl -] 17 gm PO BID PRN MDD 2 07/17/17 Family Disease History - Family Disease History Family Disease History: Heart Disease: Father ( [place] age 67), Mother ( CHF in her 70's) Physical Exam-Neuro - Neuro Exam Level Of Consciousness:Exam: Awake, no vocalizations, moves left side to command , right side minimally. Very alert and interactive with family NIH Stroke Scale - Last Known Well Date/Time & Onset Date Last Known Well: 07/16/17 Time Last Known Well: 16:00 - Initial Evaluation Level of consciousness: Not alert, but arousable with minimal stimulation Ask patient the month and their age: Both incorrect Ask patient to open & close eyes; make fist and let go: Both incorrect Best gaze (horizontal eye movement): Normal Visual field testing: No visual field loss Facial paresis (Show teeth/raise eyebrows/close eyes tight): Partial paralysis ( total or near paralysis of lower face) Motor Function: Left Arm: Normal Motor Function: Right Arm: Drift Motor Function: Left Leg: Normal (extends leg 30 degrees for 5 seconds without drift) Motor Function: Right Leg: Normal (extends leg 30 degrees for 5 seconds without drift) Limb Ataxia: No ataxia Sensory(Use pinprick test arms,legs,trunk,face/side to side): Normal Best language (Describe picture, name items, read sentences): Severe aphasia Dysarthria (read several words): Near unintelligible or unable to speak Extinction and Inattention: No abnormality (12) - Total Score NIH Stroke Scale Score: 12 Assessment/Plan Hx/o A Fib on AC, recent GIB and anemia requiring PRBC transfusion and EGD/ colonoscopy (s/p four colon polyp resection), off Coumadin post colon polyp resection (was recently restarted in 07/13/17) , with new onset aphasia, dysarthria on 07/16/17 ound to have SUB TX INR in ER spoke to ER at the time, low NIH - HX of coumadin , recent GI bleed , no TPA given pt was diagnosed with TIA and was started on IV Heparin. HX of GI bleed--HX of GI bleed-- but risk/benefits discussed with team and was cleared for HEPARIN Sx progressed through out day L MCA STROKE -- from afib , sub TX INR, with expressive aphasia and R HEMIP; min hemorrhage on CT--- held heparin x 24 hours and now back on it. Is due for repeat head CT, though she certainly looks clinically stable. F/U CT from yesterday with no new blood.
[2017-07-22 16:55] LABS: ANION GAP 6 (8-16); BLOOD UREA NITROGEN 20 mg/dL (7-18); CALCIUM 8.2 mg/dL (8.5-10.1); CHLORIDE 107 mmol/L (98-107); CO2 28 mmol/L (21-32); CREATININE 1.2 mg/dL (0.55-1.02); GLUCOSE,RANDOM 299 mg/dL (74-106); SODIUM 141 mmol/L (136-145)
[2017-07-22 17:29] LABS: POTASSIUM 4.6 mmol/L (3.5-5.1)
[2017-07-22] MEDS ORDERED: DEXTROSE 50%-WATER - 25 GM/50 ML VIAL IVPUSH PRN ×2 (18:17)
[2017-07-22] MEDS ORDERED: HEPARIN NA (PORCINE) 5,000 UNITS/ML 1ML VIAL IVPUSH PRN ×4 (18:17)
[2017-07-22] MEDS ORDERED: METOPROLOL TARTRATE 5 MG/5 ML VIAL IVPUSH PRN (18:17)
[2017-07-22] MEDS: ATORVASTATIN CA 80 MG TABLET (FP) PO SCH (21:08)
[2017-07-23] MEDS: METOPROLOL TARTRATE 50 MG TABLET (FP) PO SCH ×3 (05:38→22:37)
[2017-07-23] MEDS: NYSTATIN 500,000 UNITS/5 ML SUSPENSION PO SCH ×4 (05:38→23:29)
[2017-07-23] MEDS: FUROSEMIDE 40 MG TABLET (FP) PO SCH ×2 (05:39→13:20)
[2017-07-23] MEDS: INSULIN SLIDING SCALE (NOVOLOG) 1 VIAL SQ SCH ×4 (06:40→22:37)
[2017-07-23] MEDS: INSULIN (LEVEMIR) 100 UNITS/ML UNITS SQ SCH (06:40)
[2017-07-23 06:44] LABS: HEMATOCRIT 31.2 % (32.4-45.2); HEMOGLOBIN 9.7 GM/dL (10.7-15.3); MCH 23.5 pg (25.7-33.7); MCHC 31.1 g/dl (32.0-36.0); MEAN CELL VOLUME 75.4 fl (80-96); MEAN PLT VOLUME 8.4 fl (7.5-11.1); PLATELET COUNT 465 K/MM3 (134-434); RBC 4.14 M/mm3 (3.60-5.2); WHITE BLOOD COUNT 9.9 K/mm3 (4.0-10.0)
[2017-07-23 07:10] LABS: ALBUMIN 2.5 g/dl (3.4-5.0); ANION GAP 5 (8-16); BILIRUBIN,TOTAL 0.6 mg/dL (0.2-1.0); BLOOD UREA NITROGEN 16 mg/dL (7-18); CALCIUM 8.3 mg/dL (8.5-10.1); CHLORIDE 111 mmol/L (98-107); CO2 29 mmol/L (21-32); CREATININE 0.9 mg/dL (0.55-1.02); GLUCOSE,RANDOM 182 mg/dL (74-106); SGOT/AST 28 U/L (15-37); SGPT/ALT 24 U/L (12-78); SODIUM 145 mmol/L (136-145)
[2017-07-23 07:13] LABS: ALK PHOS 168 U/L (45-117)
[2017-07-23] MEDS: LISINOPRIL 10 MG TABLET (FP) PO SCH (09:02)
[2017-07-23] MEDS: PANTOPRAZOLE 40 MG TABLET (FP) PO SCH (09:02)
--- NOTE | 2017-07-23 10:07 | PN ---
Progress Note, [facility] - Note Progress Note: Some iomprovement as compared to yesterday. No longer mute with attempts at communication with unintelligible, audible verbalizations. Not responding with yes/no headshake/nod. Able to produce some gesture upon command eg throw me a kiss. Able to point now to single words on comm baord but only on left side of sheet, c/w right hemianopsia/neglect? This is new, not seen on Saturday. Seems to be comprehending more, with severe Apraxia/expressive Aphasia. Selected Entries 07/22/17 07/22/17 07/22/17 02:00 06:00 10:13 Breakfast 75% Temperature 98 F 98 F 07/22/17 07/22/17 07/22/17 10:14 12:30 20:00 Breakfast Temperature 99.6 F 98.6 F 99.6 F 07/23/17 07/23/17 01:22 06:00 Breakfast Temperature 98.5 F 98.5 F Laboratory Tests 07/22/17 07/23/17 05:50 06:20 WBC 10.9 H 9.9 Laboratory Tests 07/20/17 07/21/17 07/23/17 05:50 05:55 06:20 Random Glucose 170 H 119 H 182 H Glucose 299 07/22/17 New comm board created on left side only for now.
--- NOTE | 2017-07-23 10:58 | CONS ---
DATE OF CONSULTATION: 07/23/2017 REFERRING PHYSICIAN: Caleb Fischer MD HISTORY OF PRESENT ILLNESS: The patient is a 77-year-old woman with past medical history of atrial fibrillation with recent GI bleed, permanent pacemaker, and diabetes who was admitted on July 16, 2017 to [facility] with right-sided weakness and difficulty speaking. The patient evidently had been admitted recently with occult blood in the stool and anemia. She was taken off anticoagulation and undergone colonoscopy, which apparently showed some polyps. It was recommended to have a capsule endoscopy as an outpatient, and it was recommended no anticoagulation for 5 days. She subsequently was discharged on July 10 and restarted anticoagulation sometime around the . She was well until July 16 when she was shopping with her , dropped something and then subsequently developed some garbled speech. She was taken to [facility] and has had multiple CAT scans, which showed at first a right occipital lobe subacute infarct but no left MCA infarct but on subsequent images July 18 and July 19 started to show a left periventricular white matter extending into the centrum semiovale consistent with an infarct in the left MCA distribution. Despite some small hemorrhage, the patient was started on IV heparin but continues to be aphasic, although per her , she is starting to speak and could sing happy birthday. The patient also continues to have right-sided weakness, although he states she is moving her right hand and right lower extremity. The patient has SCDs in addition to anticoagulation on heparin. Most recent CBC, WBC is normal 9.9, hemoglobin 9.7, platelet count 465. Her PTT is 53.9. Chemistry shows a decreased total protein 6, albumin 2.5. her troponins had been elevated up to 9.2 then 11.6 but have been trending better, and as of yesterday's blood work, 0.77. Otherwise, chemistry today showed sodium 145, potassium 4, chloride 111, BUN 16, creatinine 0.9, CO2 is 29. The patient has been seen by physical therapy. Required moderate assist of 2 for [id number] transfer. Unable to ambulate. The patient is now seen in rehabilitation evaluation. Of note, the patient is getting thickened liquids and is followed by Ashley Padilla who noted that her swallowing is improving and she is on dysphagia puree with nectar-thickened liquids. PAST MEDICAL HISTORY: As above. Atrial fibrillation, GI bleed, anemia, permanent pacemaker, hypertension, diabetes. PAST SURGICAL HISTORY: As above. SOCIAL HISTORY: Lives with her in an elevator-accessible apartment. Premorbidly he states she was completely independent, ambulatory without assistive device. Current function as above. REVIEW OF SYSTEMS: No headache. No lightheadedness or dizziness. No blurry vision, double vision, or loss of vision. She does have difficulty speaking as well as difficulty swallowing but can comprehend. No chest pain or shortness of breath. Weakness of the right upper and right lower extremity. No reported sensory deficit. No weakness of the left upper or left lower extremity. No arthralgias. No back pain or neck pain. No bowel or bladder incontinence. No fever or chills. No skin rash. PHYSICAL EXAMINATION: General: The patient is an elderly woman seen lying in bed. She is in no acute distress. She is awake and for the most part cooperative with the exam. HEENT: She is normocephalic and atraumatic. Her extraocular muscles appear intact. She has right facial weakness central 7th nerve. Neck: Supple. Extremities: Without any pitting edema. She is a little sensitive in the right lower extremity but more diffuse than isolated. Calf tenderness. Skin: Without any heel breakdown. Neuromuscular: She is awake, alert, and seems oriented. Cranial nerves, right central 7th nerve. Otherwise, 2-12 appear grossly intact. She has 0/5 strength throughout the right upper extremity and only 1/5 proximal right lower extremity strength. Distally 0/5 but good strength and range in the left upper and left lower extremity all 5/5. She seems to grimace to pinprick in both the upper and lower extremities bilaterally. Her reflexes are depressed on the right compared to the left. Upgoing toe on the right, downgoing on the left but good passive range of motion throughout all 4 limbs. No joint tenderness. OVERALL IMPRESSION: 1. Deficits in mobility and activities of daily living, multifactorial. 2. Cerebrovascular accident with dominant right hemiparesis almost hemiplegia. 3. Expressive aphasia. 4. Dysphagia. 5. Anemia status post recent gastrointestinal bleed. 6. Atrial fibrillation. 7. Hypoalbuminemia. 8. Increased risk for deep vein thrombosis due to immobility. 9. Increased risk for decubitus ulceration due to immobility. 10. History of permanent pacemaker. 11. History of hypertension. 12. History of diabetes. PLAN/SUGGEST: 1. Extensively discussed with . The patient is a good candidate for an acute rehabilitation program. 2. Continue physical therapy. 3. Out of bed to chair with assistance. 4. Continue dysphagia diet, pureed with thickened liquids, per Speech Pathology. 5. SCDs. 6. Anticoagulation. 7. Skin precautions. Monitor heel and sacrum for any erythema. 8. Daily range of motion. Discussed with . 9. Case management to see if the patient is a candidate for Sunday or [facility]. Thank you for this referral. FRANKLYN PA M.D. [id number]
[2017-07-23] MEDS ORDERED: PT OWN MED DRAWER 7, Y5N ONE ×2 (11:03→15:49)
--- NOTE | 2017-07-23 12:46 | PN ---
Progress Note (short form) - Note Progress Note: CC: cva/nstemi S: Uptitrated lopressor to tid yesterday, but may have only received it bid. a little more interactive today. eating well. appears comfortable. Current Medications Atorvastatin Calcium (Lipitor -) 80 mg PO HS [facility] Last Admin: 07/22/17 21:08 Dose: 80 mg Dextrose (D50w (Vial) -) 25 gm IVPUSH PRN PRN PRN Reason: IF BLOOD SUGAR < 50 Dextrose (D50w (Vial) -) 12.5 gm IVPUSH PRN PRN PRN Reason: IF BLOOD SUGAR 50-69 Furosemide (Lasix -) 40 mg PO BID@0600,1400 [facility] Last Admin: 07/23/17 05:39 Dose: 40 mg Heparin Sodium (Porcine) (Heparin -) 1,000 unit IVPUSH PRN PRN PRN Reason: Heparin Heparin Sodium (Porcine) (Heparin -) 5,000 unit IVPUSH PRN PRN PRN Reason: Heparin Heparin Sodium (Porcine) 25, (000 unit/ Sodium Chloride) 500 mls @ 20 mls/hr IV TITR [facility]; 1,000 UNIT/HR PRN Reason: Protocol Last Admin: 07/22/17 22:24 Dose: 1,450 unit/hr, 29 mls/hr Insulin Aspart (Novolog Vial Sliding Scale -) 1 vial SQ ACHS [facility] PRN Reason: Protocol Last Admin: 07/23/17 11:13 Dose: 6 units Insulin Detemir (Levemir Vial) 30 units SQ 0700 [facility] Last Admin: 07/23/17 06:40 Dose: 30 units Lisinopril (Prinivil) 10 mg PO DAILY [facility] Last Admin: 07/23/17 09:02 Dose: 10 mg Metoprolol Tartrate (Lopressor -) 75 mg PO TID [facility] Last Admin: 07/23/17 05:38 Dose: 75 mg Metoprolol Tartrate (Lopressor Injection -) 5 mg IVPUSH Q4H PRN PRN Reason: TACHYCARDIA Nystatin (Nystatin Oral Suspension -) 500,000 units PO Q6HPO [facility] Last Admin: 07/23/17 12:07 Dose: 500,000 units Pantoprazole Sodium (Protonix -) 40 mg PO DAILY [facility] Last Admin: 07/23/17 09:02 Dose: 40 mg - Objective Vital Signs - 24 hr 07/22/17 07/22/17 07/22/17 13:50 14:59 16:00 Temperature Pulse Rate 101 H 100 H 112 H Respiratory 22 24 22 Rate Blood Pressure 111/74 133/68 148/69 O2 Sat by Pulse Oximetry (%) 07/22/17 07/22/17 07/22/17 18:00 20:00 21:00 Temperature 99.6 F Pulse Rate 96 H 110 H Respiratory 22 22 Rate Blood Pressure 139/98 135/81 O2 Sat by Pulse 99 Oximetry (%) 07/23/17 07/23/17 07/23/17 01:22 06:00 09:00 Temperature 98.5 F 98.5 F Pulse Rate 97 H 113 H Respiratory 20 20 Rate Blood Pressure 113/66 139/72 O2 Sat by Pulse 95 Oximetry (%) 07/23/17 10:00 Temperature 99.2 F Pulse Rate 96 H Respiratory 20 Rate Blood Pressure 129/66 O2 Sat by Pulse Oximetry (%) Intake & Output 07/21/17 07/22/17 07/23/17 07/24/17 07:59 07:59 07:59 07:59 Intake Total 1025 1748 1296 Output Total 2200 2800 1600 Balance -1175 -1052 -304 Weight 177 lb 4 oz 176 lb 3 oz nad, aphasic jvd flat, neck supple irreg, s1s2 no mrg ctab, nl eff abd nt nd pos bs no jaundice diaphoresis alert no le edema bl, no c/c Labs: CBC, BMP 07/23/17 06:20 07/23/17 06:20 Laboratory Tests 07/22/17 07/23/17 05:50 06:20 Total Bilirubin 0.6 AST 28 ALT 24 Alkaline Phosphatase 168 H Creatine Kinase 17 L Troponin I 0.77 H* 0.32 H Albumin 2.5 L tele: afib, rate 100's-110s ecg: afib rate 110s, nl qtc, no ischemic changes, nonspec st-t changes, no sig change from prior ecg earlier this month echo 06/2016: nl lv/rv, mild emmanuelle, mv ring, mod tr, mild phtn echo 07/2017: nl lv, rv tds, emmanuelle, mod-sev tr, nl rvsp cxr: no sig chf endoscopy 07/2017: Bleeding source appears to be vascular ectasias, likely in the small bowel as large cecal nonbleeding angiodysplasias were seen. 4 colon polyps were removed. Should have capsule endoscopy as outpatient. Assessment/Plan a/p: hpi: 77 f hx mv ring repair 2009, afib, dm, htn, ppm, hld, chf here with difficulty speaking. cva: -occurred in setting of holding coumadin for 5 days 2/2 gib and polypectomy -head ct shows possible bleed near cva so hep gtt stopped 07/18, cleared to resume 07/19 by neuro. -neuro following - 07/23: per pmd and neuro, ok to transition to oral AC -> will transition to eliquis tomorrow am. NSTEMI: -no cp at present -ecg unchanged from prior -echo with nl lvef -cont tele -hep gtt -asa/plavix not given due to possible bleed on head ct -will likely need cardiac cath after acute cva issues resolve -07/20-07/23: Troponin down trending 2.15 (3.52) anemia: -endoscopy 07/2017: Bleeding source appears to be vascular ectasias, likely in the small bowel. -hgb stable today (07/20) 9.5 (9.3) -07/21-07/23: Hgb stable ~ 9's. chronic diastolic chf: -stable, cont lasix 40 po bid mv repair: -normal fcn on recent echo afib: -on hep gtt --> transitioning to eliquis as mentioned above. -rvr at times but now getting po meds. -07/21: RVR overnight -07/21-: Further uptitrated lopressor.
--- NOTE | 2017-07-23 15:40 | PN ---
Progress Note (short form) - Note Progress Note: 7 YO Hx/o A Fib on AC, recent GIB and anemia requiring PRBC transfusion and EGD / colonoscopy (s/p four colon polyp resection), off Coumadin post colon polyp resection (was restarted on 07/13/17) , was in [employer] store 07/16/17 (she dropped an item from the cart without noticing it- per her ) and later in [employer] store when developed garbled speech. Pt came by EMS to ER, found to have dysarthria and left side tongue deviation, had head CT scan (negative for acute event); found to have SUB TX INR spoke to ER at the time, low NIH - HX of coumadin , recent GI BLEED, no TPA given pt was diagnosed with TIA and was started on IV Heparin. HX of GI bleed-- but risk/benefits discussed with team and was cleared for HEPARIN FU : R sided weakness worse, aphasic rpt HD CT No significant interval change in the size or appearance of the previously visualized acute/ subacute infarct in the right occipital lobe with questionable minimal hemorrhage, for which continued follow-up or an MRI is needed. - Past Medical History Cardio/Vascular: Yes: AFIB (on AC), Aortic Stenosis (s/p ring repair at [facility]), CAD, HTN, Other (PPM) Pulmonary: Yes: COPD Gastrointestinal: Yes: GI Bleed, Other (colon polyps, s/p four polyps resection) ...: No Rheumatology: Yes: Other (osteoarthritis) Endocrine: Yes: Diabetes Mellitus - Alcohol/Substance Use Hx Alcohol Use: No History of Substance Use: reports: None - Smoking History Smoking history: Former smoker Have you smoked in the past 12 months: No If you are a former smoker, when did you quit?: 2007 - Social History Usual Living Arrangement: With Spouse ADL: Independent 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 History of Recent Travel: No Home Medications - Allergies Allergies/Adverse Reactions: Allergies Allergy/AdvReac Type Severity Reaction Status Date / Time No Known Allergies Allergy Verified 07/16/17 16:49 - Home Medications Home Medications: Ambulatory Orders Amlodipine Besylate [Norvasc -] 10 mg PO DAILY 06/28/16 Aspirin [ASA -] 81 mg PO DAILY 06/28/16 Lisinopril 10 mg PO DAILY 06/28/16 Simvastatin 10 mg PO DAILY 06/28/16 Furosemide [Lasix -] 40 mg PO BID@0600,1400 #180 tablet 07/04/16 Insulin (Levemir) [Levemir Vial] 38 units SQ ACBK 07/03/17 Sitagliptin Phos/Metformin HCl [Janumet 50-1,000 mg Tablet] 1 each PO DAILY 04/21 Ascorbic Acid [Vitamin C -] 500 mg PO BID 30 Days #60 tablet MDD 2 07/10/17 Bacitracin - [Bacitracin Topical Ointment -] 1 applic TP BID tube 07/10/17 Ferrous Sulfate [Feosol] 325 mg PO BID #60 ud MDD 2 07/10/17 Warfarin Na [Coumadin -] 5 mg PO SuTuThSa@18 #0 tablet 07/10/17 Warfarin Na [Coumadin -] 6 mg PO MoWeFr@1800 #0 tablet 07/10/17 Metoprolol Succinate [Toprol XL -] 50 mg PO DAILY 07/17/17 Polyethylene Glycol 3350 [Miralax 119 gm Btl -] 17 gm PO BID PRN MDD 2 07/17/17 Family Disease History - Family Disease History Family Disease History: Heart Disease: Father ( [place] age 67), Mother ( CHF in her 70's) Physical Exam-Neuro - Neuro Exam Level Of Consciousness:Exam: Awake, no vocalizations, moves left side to command , right side minimally. Very alert and interactive with family NIH Stroke Scale - Last Known Well Date/Time & Onset Date Last Known Well: 07/16/17 Time Last Known Well: 16:00 - Initial Evaluation Level of consciousness: Not alert, but arousable with minimal stimulation Ask patient the month and their age: Both incorrect Ask patient to open & close eyes; make fist and let go: Both incorrect Best gaze (horizontal eye movement): Normal Visual field testing: No visual field loss Facial paresis (Show teeth/raise eyebrows/close eyes tight): Partial paralysis ( total or near paralysis of lower face) Motor Function: Left Arm: Normal Motor Function: Right Arm: Drift Motor Function: Left Leg: Normal (extends leg 30 degrees for 5 seconds without drift) Motor Function: Right Leg: Normal (extends leg 30 degrees for 5 seconds without drift) Limb Ataxia: No ataxia Sensory(Use pinprick test arms,legs,trunk,face/side to side): Normal Best language (Describe picture, name items, read sentences): Severe aphasia Dysarthria (read several words): Near unintelligible or unable to speak Extinction and Inattention: No abnormality (12) - Total Score NIH Stroke Scale Score: 12 Assessment/Plan Hx/o A Fib on AC, recent GIB and anemia requiring PRBC transfusion and EGD/ colonoscopy (s/p four colon polyp resection), off Coumadin post colon polyp resection (was recently restarted in 07/13/17) , with new onset aphasia, dysarthria on 07/16/17 ound to have SUB TX INR in ER spoke to ER at the time, low NIH - HX of coumadin , recent GI bleed , no TPA given pt was diagnosed with TIA and was started on IV Heparin. HX of GI bleed--HX of GI bleed-- but risk/benefits discussed with team and was cleared for HEPARIN Sx progressed through out day L MCA STROKE -- from afib , sub TX INR, with expressive aphasia and R HEMIP; min hemorrhage on CT--- held heparin x 24 hours and now back on it. Is due for repeat head CT, though she certainly looks clinically stable. Remains alert. Can be transitioned to oral anticoagulation.
--- NOTE | 2017-07-23 17:14 | PN ---
Progress Note, Physician History of Present Illness: Pt w/o SOB, CP, palpitations. Pt with expressive aphasia. Pt's at bedside. - Current Medication List Current Medications: Active Medications Atorvastatin Calcium (Lipitor -) 80 mg PO HS [facility] Last Admin: 07/22/17 21:08 Dose: 80 mg Dextrose (D50w (Vial) -) 25 gm IVPUSH PRN PRN PRN Reason: IF BLOOD SUGAR < 50 Dextrose (D50w (Vial) -) 12.5 gm IVPUSH PRN PRN PRN Reason: IF BLOOD SUGAR 50-69 Ferrous Sulfate (Feosol -) 325 mg PO DAILY [facility] Furosemide (Lasix -) 40 mg PO BID@0600,1400 [facility] Last Admin: 07/23/17 13:20 Dose: 40 mg Heparin Sodium (Porcine) (Heparin -) 1,000 unit IVPUSH PRN PRN PRN Reason: Heparin Heparin Sodium (Porcine) (Heparin -) 5,000 unit IVPUSH PRN PRN PRN Reason: Heparin Heparin Sodium (Porcine) 25, (000 unit/ Sodium Chloride) 500 mls @ 20 mls/hr IV TITR [facility]; 1,000 UNIT/HR PRN Reason: Protocol Last Admin: 07/22/17 22:24 Dose: 1,450 unit/hr, 29 mls/hr Insulin Aspart (Novolog Vial Sliding Scale -) 1 vial SQ ACHS [facility] PRN Reason: Protocol Last Admin: 07/23/17 16:55 Dose: 4 units Insulin Detemir (Levemir Vial) 30 units SQ 0700 [facility] Last Admin: 07/23/17 06:40 Dose: 30 units Lisinopril (Prinivil) 10 mg PO DAILY [facility] Last Admin: 07/23/17 09:02 Dose: 10 mg Metoprolol Tartrate (Lopressor -) 75 mg PO TID [facility] Last Admin: 07/23/17 13:23 Dose: 75 mg Metoprolol Tartrate (Lopressor Injection -) 5 mg IVPUSH Q4H PRN PRN Reason: TACHYCARDIA Nystatin (Nystatin Oral Suspension -) 500,000 units PO Q6HPO [facility] Last Admin: 07/23/17 12:07 Dose: 500,000 units Pantoprazole Sodium (Protonix -) 40 mg PO DAILY [facility] Last Admin: 07/23/17 09:02 Dose: 40 mg - Objective Vital Signs: Vital Signs Temperature 99 F 07/23/17 14:25 Pulse Rate 105 H 07/23/17 14:25 Respiratory Rate 18 07/23/17 14:25 Blood Pressure 141/66 07/23/17 14:25 O2 Sat by Pulse Oximetry (%) 95 07/23/17 09:00 Constitutional: Yes: No Distress, Calm Cardiovascular: Yes: Pulse Irregular, S1, S2 Respiratory: Yes: Regular, CTA Bilaterally. No: Rales Gastrointestinal: Yes: Normal Bowel Sounds, Soft. No: Tenderness Neurological: Yes: Alert, Oriented Labs: CBC, BMP 07/23/17 06:20 07/23/17 06:20 INR, PTT INR 1.60 (0.82-1.09) H D 07/16/17 17:15 Problem List - Problems (1) Brain bleed Code(s): I61.9 - NONTRAUMATIC INTRACEREBRAL HEMORRHAGE, UNSPECIFIED (2) NSTEMI (non-ST elevated myocardial infarction) Code(s): I21.4 - NON-ST ELEVATION (NSTEMI) MYOCARDIAL INFARCTION (3) CVA (cerebral vascular accident) Code(s): I63.9 - CEREBRAL INFARCTION, UNSPECIFIED (4) Elevated troponin I level Code(s): R74.8 - ABNORMAL LEVELS OF OTHER SERUM ENZYMES (5) Anemia Code(s): D64.9 - ANEMIA, UNSPECIFIED Qualifiers: Iron deficiency anemia type: chronic blood loss (6) GIB (gastrointestinal bleeding) Code(s): K92.2 - GASTROINTESTINAL HEMORRHAGE, UNSPECIFIED Qualifiers: GI bleed type/associated pathology: unspecified gastrointestinal hemorrhage type Qualified Code(s): K92.2 - Gastrointestinal hemorrhage, unspecified (7) Atrial fibrillation Code(s): I48.91 - UNSPECIFIED ATRIAL FIBRILLATION (8) CAD (coronary artery disease) Code(s): I25.10 - ATHSCL HEART DISEASE OF [place] CORONARY ARTERY W/O ANG PCTRS (9) COPD (chronic obstructive pulmonary disease) Code(s): J44.9 - CHRONIC OBSTRUCTIVE PULMONARY DISEASE, UNSPECIFIED (10) Diabetes mellitus Code(s): E11.9 - TYPE 2 DIABETES MELLITUS WITHOUT COMPLICATIONS (11) HTN (hypertension) Code(s): I10 - ESSENTIAL (PRIMARY) HYPERTENSION (12) Hyperlipidemia Code(s): E78.5 - HYPERLIPIDEMIA, UNSPECIFIED (13) Lung nodule Code(s): R91.1 - SOLITARY PULMONARY NODULE (14) Pacemaker Code(s): Z95.0 - PRESENCE OF CARDIAC PACEMAKER Assessment/Plan Admitted to ICU, transferred to Telemetry. IV Heparin was started on admission. Heparin was stopped secondary to intracranial bleed; 24 hours later Heparin was restarted, patient is tolerating it well. Neurochecks To monitor CE- trending down. Neuro, Cardio, GI, Speech/ swallow consults and f/u appreciated, DVT proph. GI proph. AM labs. Case was d/w Cardio and Neuro; to switch pt to PO AC (choice of AC to be decided by Cardio) Pt's care was d/w pt's nurse. Restart Ferrous Sulfate PO Na+ is trending up; to increase PO intake of free water. For Head CT scan in AM. Pt's condition and care was d/w pt's ; all questions were answered Prognosis: reserved Time spent for managing patient care: over 45 minutes.
[2017-07-23] MEDS: HEPARIN - 25,000 UNIT in SODIUM CHLORIDE 495 ML IV SCH (18:33)
[2017-07-23] MEDS: ATORVASTATIN CA 80 MG TABLET (FP) PO SCH (22:37)
[2017-07-24] MEDS: INSULIN SLIDING SCALE (NOVOLOG) 1 VIAL SQ SCH ×6 (02:20→21:48)
[2017-07-24] MEDS: FUROSEMIDE 40 MG TABLET (FP) PO SCH ×2 (06:40→14:36)
[2017-07-24] MEDS: METOPROLOL TARTRATE 50 MG TABLET (FP) PO SCH ×3 (06:40→21:47)
[2017-07-24] MEDS: NYSTATIN 500,000 UNITS/5 ML SUSPENSION PO SCH ×5 (06:40→23:09)
[2017-07-24] MEDS: INSULIN (LEVEMIR) 100 UNITS/ML UNITS SQ SCH ×2 (06:41→08:01)
[2017-07-24] MEDS ORDERED: INSULIN (NOVOLOG) ASPART 100 UNITS/ML 10ML VIAL ONE ×3 (07:00→21:30)
[2017-07-24 07:49] LABS: CHLORIDE 109 mmol/L (98-107); POTASSIUM 4.1 mmol/L (3.5-5.1); SODIUM 147 mmol/L (136-145)
[2017-07-24 08:04] LABS: ANION GAP 7 (8-16); BLOOD UREA NITROGEN 15 mg/dL (7-18); CALCIUM 8.6 mg/dL (8.5-10.1); CO2 31 mmol/L (21-32); CREATININE 0.8 mg/dL (0.55-1.02); GLUCOSE,RANDOM 158 mg/dL (74-106)
[2017-07-24] MEDS: FERROUS SO4 325 MG TABLET (FP) PO SCH (08:15)
[2017-07-24 08:18] LABS: HEMATOCRIT 32.2 % (32.4-45.2); HEMOGLOBIN 9.9 GM/dL (10.7-15.3); MCH 23.1 pg (25.7-33.7); MCHC 30.6 g/dl (32.0-36.0); MEAN CELL VOLUME 75.6 fl (80-96); MEAN PLT VOLUME 9.4 fl (7.5-11.1); PLATELET COUNT 488 K/MM3 (134-434); RBC 4.26 M/mm3 (3.60-5.2); RDW 19.3 % (11.6-15.6); WHITE BLOOD COUNT 10.4 K/mm3 (4.0-10.0)
--- NOTE | 2017-07-24 09:20 | PN ---
Progress Note (short form) - Note Progress Note: 7 YO Hx/o A Fib on AC, recent GIB and anemia requiring PRBC transfusion and EGD / colonoscopy (s/p four colon polyp resection), off Coumadin post colon polyp resection (was restarted on 07/13/17) , was in [employer] store 07/16/17 (she dropped an item from the cart without noticing it- per her ) and later in [employer] store when developed garbled speech. Pt came by EMS to ER, found to have dysarthria and left side tongue deviation, had head CT scan (negative for acute event); found to have SUB TX INR spoke to ER at the time, low NIH - HX of coumadin , recent GI BLEED, no TPA given pt was diagnosed with TIA and was started on IV Heparin. HX of GI bleed-- but risk/benefits discussed with team and was cleared for HEPARIN FU : R sided weakness worse, aphasic rpt HD CT No significant interval change in the size or appearance of the previously visualized acute/ subacute infarct in the right occipital lobe with questionable minimal hemorrhage, for which continued follow-up or an MRI is needed. - Past Medical History Cardio/Vascular: Yes: AFIB (on AC), Aortic Stenosis (s/p ring repair at [facility]), CAD, HTN, Other (PPM) Pulmonary: Yes: COPD Gastrointestinal: Yes: GI Bleed, Other (colon polyps, s/p four polyps resection) ...: No Rheumatology: Yes: Other (osteoarthritis) Endocrine: Yes: Diabetes Mellitus - Alcohol/Substance Use Hx Alcohol Use: No History of Substance Use: reports: None - Smoking History Smoking history: Former smoker Have you smoked in the past 12 months: No If you are a former smoker, when did you quit?: 2007 - Social History Usual Living Arrangement: With Spouse ADL: Independent 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 History of Recent Travel: No Home Medications - Allergies Allergies/Adverse Reactions: Allergies Allergy/AdvReac Type Severity Reaction Status Date / Time No Known Allergies Allergy Verified 07/16/17 16:49 - Home Medications Home Medications: Ambulatory Orders Amlodipine Besylate [Norvasc -] 10 mg PO DAILY 06/28/16 Aspirin [ASA -] 81 mg PO DAILY 06/28/16 Lisinopril 10 mg PO DAILY 06/28/16 Simvastatin 10 mg PO DAILY 06/28/16 Furosemide [Lasix -] 40 mg PO BID@0600,1400 #180 tablet 07/04/16 Insulin (Levemir) [Levemir Vial] 38 units SQ ACBK 07/03/17 Sitagliptin Phos/Metformin HCl [Janumet 50-1,000 mg Tablet] 1 each PO DAILY 04/21 Ascorbic Acid [Vitamin C -] 500 mg PO BID 30 Days #60 tablet MDD 2 07/10/17 Bacitracin - [Bacitracin Topical Ointment -] 1 applic TP BID tube 07/10/17 Ferrous Sulfate [Feosol] 325 mg PO BID #60 ud MDD 2 07/10/17 Warfarin Na [Coumadin -] 5 mg PO SuTuThSa@18 #0 tablet 07/10/17 Warfarin Na [Coumadin -] 6 mg PO MoWeFr@1800 #0 tablet 07/10/17 Metoprolol Succinate [Toprol XL -] 50 mg PO DAILY 07/17/17 Polyethylene Glycol 3350 [Miralax 119 gm Btl -] 17 gm PO BID PRN MDD 2 07/17/17 Family Disease History - Family Disease History Family Disease History: Heart Disease: Father ( [place] age 67), Mother ( CHF in her 70's) Physical Exam-Neuro - getting ct scan NIH Stroke Scale - Last Known Well Date/Time & Onset Date Last Known Well: 07/16/17 Time Last Known Well: 16:00 - Initial Evaluation Level of consciousness: Not alert, but arousable with minimal stimulation Ask patient the month and their age: Both incorrect Ask patient to open & close eyes; make fist and let go: Both incorrect Best gaze (horizontal eye movement): Normal Visual field testing: No visual field loss Facial paresis (Show teeth/raise eyebrows/close eyes tight): Partial paralysis ( total or near paralysis of lower face) Motor Function: Left Arm: Normal Motor Function: Right Arm: Drift Motor Function: Left Leg: Normal (extends leg 30 degrees for 5 seconds without drift) Motor Function: Right Leg: Normal (extends leg 30 degrees for 5 seconds without drift) Limb Ataxia: No ataxia Sensory(Use pinprick test arms,legs,trunk,face/side to side): Normal Best language (Describe picture, name items, read sentences): Severe aphasia Dysarthria (read several words): Near unintelligible or unable to speak Extinction and Inattention: No abnormality (12) - Total Score NIH Stroke Scale Score: 12 Assessment/Plan Hx/o A Fib on AC, recent GIB and anemia requiring PRBC transfusion and EGD/ colonoscopy (s/p four colon polyp resection), off Coumadin post colon polyp resection (was recently restarted in 07/13/17) , with new onset aphasia, dysarthria on 07/16/17 ound to have SUB TX INR in ER spoke to ER at the time, low NIH - HX of coumadin , recent GI bleed , no TPA given pt was diagnosed with TIA and was started on IV Heparin. HX of GI bleed--HX of GI bleed-- but risk/benefits discussed with team and was cleared for HEPARIN Sx progressed through out day L MCA STROKE -- from afib , sub TX INR, with expressive aphasia and R HEMIP; min hemorrhage on CT--- held heparin x 24 hours and now back on it. Is due for repeat head CT, though she certainly looks clinically stable. Remains alert. Can be transitioned to oral anticoagulation.
[2017-07-24] MEDS: APIXABAN 5 MG TABLET PO SCH ×2 (10:15→21:47)
[2017-07-24] MEDS: LISINOPRIL 10 MG TABLET (FP) PO SCH (10:15)
[2017-07-24] MEDS: PANTOPRAZOLE 40 MG TABLET (FP) PO SCH (10:15)
--- NOTE | 2017-07-24 10:28 | PN ---
Progress Note, Physician History of Present Illness: Pt w/o SOB, CP, palpitations, abd pain. Pt with expressive aphasia. Pt's at bedside. - Current Medication List Current Medications: Active Medications Apixaban (Eliquis -) 5 mg PO BID [facility] Last Admin: 07/24/17 10:15 Dose: 5 mg Atorvastatin Calcium (Lipitor -) 80 mg PO HS [facility] Last Admin: 07/23/17 22:37 Dose: 80 mg Dextrose (D50w (Vial) -) 25 gm IVPUSH PRN PRN PRN Reason: IF BLOOD SUGAR < 50 Dextrose (D50w (Vial) -) 12.5 gm IVPUSH PRN PRN PRN Reason: IF BLOOD SUGAR 50-69 Ferrous Sulfate (Feosol -) 325 mg PO DAILY@0800 [facility] Last Admin: 07/24/17 08:15 Dose: 325 mg Furosemide (Lasix -) 40 mg PO BID@0600,1400 [facility] Last Admin: 07/24/17 06:40 Dose: 40 mg Insulin Aspart (Novolog Vial Sliding Scale -) 1 vial SQ ACHS [facility]; Protocol Last Admin: 07/24/17 06:41 Dose: 2 units Insulin Detemir (Levemir Vial) 30 units SQ 0700 [facility] Last Admin: 07/24/17 06:41 Dose: 30 units Lisinopril (Prinivil) 10 mg PO DAILY [facility] Last Admin: 07/24/17 10:15 Dose: 10 mg Metoprolol Tartrate (Lopressor -) 75 mg PO TID [facility] Last Admin: 07/24/17 06:40 Dose: 75 mg Metoprolol Tartrate (Lopressor Injection -) 5 mg IVPUSH Q4H PRN PRN Reason: TACHYCARDIA Nystatin (Nystatin Oral Suspension -) 500,000 units PO Q6HPO [facility] Last Admin: 07/24/17 06:40 Dose: 500,000 units Pantoprazole Sodium (Protonix -) 40 mg PO DAILY [facility] Last Admin: 07/24/17 10:15 Dose: 40 mg - Objective Vital Signs: Vital Signs Temperature 99 F 07/24/17 10:25 Pulse Rate 97 H 07/24/17 10:25 Respiratory Rate 18 07/24/17 10:25 Blood Pressure 143/76 07/24/17 10:25 O2 Sat by Pulse Oximetry (%) 96 07/23/17 21:00 Constitutional: Yes: No Distress, Calm Cardiovascular: Yes: Pulse Irregular, S1, S2 Respiratory: Yes: Regular, CTA Bilaterally. No: Rales Gastrointestinal: Yes: Normal Bowel Sounds, Soft. No: Tenderness Edema: No Neurological: Yes: Alert, Oriented, Other (unchanged neuro examination) Labs: CBC, BMP 07/24/17 06:20 07/24/17 06:20 INR, PTT INR 1.60 (0.82-1.09) H D 07/16/17 17:15 Problem List - Problems (1) Brain bleed Code(s): I61.9 - NONTRAUMATIC INTRACEREBRAL HEMORRHAGE, UNSPECIFIED (2) NSTEMI (non-ST elevated myocardial infarction) Code(s): I21.4 - NON-ST ELEVATION (NSTEMI) MYOCARDIAL INFARCTION (3) CVA (cerebral vascular accident) Code(s): I63.9 - CEREBRAL INFARCTION, UNSPECIFIED (4) Elevated troponin I level Code(s): R74.8 - ABNORMAL LEVELS OF OTHER SERUM ENZYMES (5) Anemia Code(s): D64.9 - ANEMIA, UNSPECIFIED Qualifiers: Iron deficiency anemia type: chronic blood loss (6) GIB (gastrointestinal bleeding) Code(s): K92.2 - GASTROINTESTINAL HEMORRHAGE, UNSPECIFIED Qualifiers: GI bleed type/associated pathology: unspecified gastrointestinal hemorrhage type Qualified Code(s): K92.2 - Gastrointestinal hemorrhage, unspecified (7) Atrial fibrillation Code(s): I48.91 - UNSPECIFIED ATRIAL FIBRILLATION (8) CAD (coronary artery disease) Code(s): I25.10 - ATHSCL HEART DISEASE OF [place] CORONARY ARTERY W/O ANG PCTRS (9) COPD (chronic obstructive pulmonary disease) Code(s): J44.9 - CHRONIC OBSTRUCTIVE PULMONARY DISEASE, UNSPECIFIED (10) Diabetes mellitus Code(s): E11.9 - TYPE 2 DIABETES MELLITUS WITHOUT COMPLICATIONS (11) HTN (hypertension) Code(s): I10 - ESSENTIAL (PRIMARY) HYPERTENSION (12) Hyperlipidemia Code(s): E78.5 - HYPERLIPIDEMIA, UNSPECIFIED (13) Lung nodule Code(s): R91.1 - SOLITARY PULMONARY NODULE (14) Pacemaker Code(s): Z95.0 - PRESENCE OF CARDIAC PACEMAKER (15) Hypernatremia Code(s): E87.0 - HYPEROSMOLALITY AND HYPERNATREMIA Assessment/Plan Admitted to ICU, transferred to Telemetry. IV Heparin was started on admission. Heparin was stopped secondary to intracranial bleed; 24 hours later Heparin was restarted, patient is tolerating it well. Pt was started on Eliquis today (Heparin was stopped). Neurochecks To monitor CE- trending down. Neuro, Cardio, GI, Speech/ swallow consults and f/u appreciated. DVT proph. GI proph. Na+ is trending up; to increase PO intake of free water. AM labs. Today Head CT scan report was reviewed. Pt's at bedside. Ashley Padilla at bedside (reevaluating patient and teaching pt and pt's about importance of communicating board). Pt's care was d/w pt's nurse, at bedside. Pt's care was d/w Dr. Davalos, at bedside; Cardiac cath after pt is DC'ed from Rehab. CM for Rehab placement (pt's is aware). Prognosis: reserved Time spent for managing patient care: over 40 minutes.
--- NOTE | 2017-07-24 11:03 | PN ---
Progress Note, W[employer]MIST - Note Progress Note: New comm board created on left side only for now with 30% accuracy today. Continued training pt's ion eliciting y/n responses, use of functional gesture, comm board for improved communication. Severe expressive deficits. Writing and speech non functional. Comprehension seems worse than actual function, I suspect, due to apraxia. However, I believe she is understanding simple 1 stage/ social speech/simple conversation but not 2 stage/rapid conversation. Suggest: Sunday rehab for PT/OT/Speech/continued family traINING..
--- NOTE | 2017-07-24 11:16 | PN ---
Progress Note (short form) - Note Progress Note: s: no cp sob palps dizzy; still with slurred speech and right weakness o: Current Medications Generic Name Dose Route Start Last Admin Trade Name Ebenq PRN Reason Stop Dose Admin Apixaban 5 mg 07/24/17 10:00 07/24/17 10:15 Eliquis - PO 5 mg BID [facility] Administration Atorvastatin Calcium 80 mg 07/22/17 22:00 07/23/17 22:37 Lipitor - PO 80 mg HS [facility] Administration Dextrose 25 gm 07/22/17 18:17 D50w (Vial) - IVPUSH PRN PRN IF BLOOD SUGAR < 50 Dextrose 12.5 gm 07/22/17 18:17 D50w (Vial) - IVPUSH PRN PRN IF BLOOD SUGAR 50-69 Ferrous Sulfate 325 mg 07/24/17 08:00 07/24/17 08:15 Feosol - PO 325 mg DAILY@0800 [facility] Administration Furosemide 40 mg 07/23/17 06:00 07/24/17 06:40 Lasix - PO 40 mg BID@0600,1400 [facility] Administration Insulin Aspart 1 vial 07/22/17 22:00 07/24/17 06:41 Novolog Vial Sliding Scale - SQ 2 units ACHS [facility] Administration Protocol Insulin Detemir 30 units 07/23/17 07:00 07/24/17 06:41 Levemir Vial SQ 30 units 0700 [facility] Administration Lisinopril 10 mg 07/23/17 10:00 07/24/17 10:15 Prinivil PO 10 mg DAILY [facility] Administration Metoprolol Tartrate 75 mg 07/22/17 22:00 07/24/17 06:40 Lopressor - PO 75 mg TID [facility] Administration Metoprolol Tartrate 5 mg 07/22/17 18:17 Lopressor Injection - IVPUSH Q4H PRN TACHYCARDIA Nystatin 500,000 units 07/23/17 00:00 07/24/17 06:40 Nystatin Oral Suspension - PO 500,000 units Q6HPO [facility] Administration Pantoprazole Sodium 40 mg 07/23/17 10:00 07/24/17 10:15 Protonix - PO 40 mg DAILY [facility] Administration Vital Signs Period Temp Pulse Resp BP Sys/[place] Pulse Ox Last 24 Hr 97.2 F-99.1 F 89-108 18-20 115-143/52-88 96 nad no jvd irreg, tachy, s1s2 no mrg ctab, nl eff abd nt nd pos bs no jaundice diaphoresis aaox3 no le edema bl, no c/c slurred speech CBC, BMP 07/24/17 06:20 07/24/17 06:20 tele: afib, rate ok ecg: afib rate 110s, nl qtc, no ischemic changes, nonspec st-t changes, no sig change from prior ecg earlier this month echo 06/2016: nl lv/rv, mild emmanuelle, mv ring, mod tr, mild phtn echo 07/2017: nl lv, rv tds, emmanuelle, mod-sev tr, nl rvsp cxr: no sig chf endoscopy 07/2017: Bleeding source appears to be vascular ectasias, likely in the small bowel as large cecal nonbleeding angiodysplasias were seen. 4 colon polyps were removed. Should have capsule endoscopy as outpatient. Assessment/Plan a/p: hpi: 77 f hx mv ring repair 2009, afib, dm, htn, ppm, hld, chf here with difficulty speaking. cva: -occurred in setting of holding coumadin for 5 days 2/2 gib and polypectomy -head ct shows possible bleed near cva so hep gtt stopped 07/18, cleared to resume 07/19 by neuro. -neuro following -back on ac, eliquis NSTEMI: -no cp at present -ecg unchanged from prior -echo with nl lvef -will likely need cardiac cath after acute cva issues resolve, will d/w interventionalist anemia: -endoscopy 07/2017: Bleeding source appears to be vascular ectasias, likely in the small bowel. -hgb stable today (07/20) 9.5 (9.3) -07/21-07/24: Hgb stable ~ 9's. chronic diastolic chf: -stable, cont lasix 40 po bid mv repair: -normal fcn on recent echo afib: -on eliquis -rate ok on bb
[2017-07-24] MEDS ORDERED: SODIUM CHLORIDE 0.45% 500 ML IV SCH (21:45)
[2017-07-24] MEDS: ATORVASTATIN CA 80 MG TABLET (FP) PO SCH (21:47)
[2017-07-25] MEDS ORDERED: INSULIN (NOVOLOG) ASPART 100 UNITS/ML 10ML VIAL ONE ×2 (06:02→21:38)
[2017-07-25] MEDS: NYSTATIN 500,000 UNITS/5 ML SUSPENSION PO SCH ×3 (06:10→17:21)
[2017-07-25] MEDS: FUROSEMIDE 40 MG TABLET (FP) PO SCH ×2 (06:11→13:56)
[2017-07-25] MEDS: METOPROLOL TARTRATE 50 MG TABLET (FP) PO SCH ×3 (06:11→21:45)
[2017-07-25] MEDS: INSULIN SLIDING SCALE (NOVOLOG) 1 VIAL SQ SCH ×4 (06:17→21:46)
[2017-07-25] MEDS: INSULIN (LEVEMIR) 100 UNITS/ML UNITS SQ SCH (06:17)
[2017-07-25 06:39] LABS: HEMATOCRIT 32.5 % (32.4-45.2); HEMOGLOBIN 9.9 GM/dL (10.7-15.3); MCH 23.1 pg (25.7-33.7); MCHC 30.6 g/dl (32.0-36.0); MEAN CELL VOLUME 75.6 fl (80-96); MEAN PLT VOLUME 8.6 fl (7.5-11.1); PLATELET COUNT 517 K/MM3 (134-434); RBC 4.29 M/mm3 (3.60-5.2); RDW 19.1 % (11.6-15.6); WHITE BLOOD COUNT 9.6 K/mm3 (4.0-10.0)
[2017-07-25 07:33] LABS: ANION GAP 7 (8-16); BLOOD UREA NITROGEN 16 mg/dL (7-18); CALCIUM 8.6 mg/dL (8.5-10.1); CHLORIDE 109 mmol/L (98-107); CO2 28 mmol/L (21-32); CREATININE 0.8 mg/dL (0.55-1.02); GLUCOSE,RANDOM 214 mg/dL (74-106); POTASSIUM 4.3 mmol/L (3.5-5.1); SODIUM 144 mmol/L (136-145)
--- NOTE | 2017-07-25 09:29 | PN ---
Progress Note, Physician History of Present Illness: Pt w/o SOB, CP, palpitations, abd pain. Pt with expressive aphasia. Pt's at bedside. - Current Medication List Current Medications: Active Medications Apixaban (Eliquis -) 5 mg PO BID COUNTS INCLUDE 234 BEDS AT THE [facility] Last Admin: 07/24/17 21:47 Dose: 5 mg Atorvastatin Calcium (Lipitor -) 80 mg PO HS COUNTS INCLUDE 234 BEDS AT THE [facility] Last Admin: 07/24/17 21:47 Dose: 80 mg Dextrose (D50w (Vial) -) 25 gm IVPUSH PRN PRN PRN Reason: IF BLOOD SUGAR < 50 Dextrose (D50w (Vial) -) 12.5 gm IVPUSH PRN PRN PRN Reason: IF BLOOD SUGAR 50-69 Ferrous Sulfate (Feosol -) 325 mg PO DAILY@0800 COUNTS INCLUDE 234 BEDS AT THE [facility] Last Admin: 07/24/17 08:15 Dose: 325 mg Furosemide (Lasix -) 40 mg PO BID@0600,1400 COUNTS INCLUDE 234 BEDS AT THE [facility] Last Admin: 07/25/17 06:11 Dose: 40 mg Sodium Chloride (1/2 Normal Saline) 500 mls @ 50 mls/hr IV ASDIR COUNTS INCLUDE 234 BEDS AT THE [facility] Last Admin: 07/24/17 21:54 Dose: 50 mls/hr Insulin Aspart (Novolog Vial Sliding Scale -) 1 vial SQ ACHS COUNTS INCLUDE 234 BEDS AT THE [facility]; Protocol Last Admin: 07/25/17 06:17 Dose: 4 units Insulin Detemir (Levemir Vial) 30 units SQ 0700 COUNTS INCLUDE 234 BEDS AT THE [facility] Last Admin: 07/25/17 06:17 Dose: 30 units Lisinopril (Prinivil) 10 mg PO DAILY COUNTS INCLUDE 234 BEDS AT THE [facility] Last Admin: 07/24/17 10:15 Dose: 10 mg Metoprolol Tartrate (Lopressor -) 75 mg PO TID COUNTS INCLUDE 234 BEDS AT THE [facility] Last Admin: 07/25/17 06:11 Dose: 75 mg Metoprolol Tartrate (Lopressor Injection -) 5 mg IVPUSH Q4H PRN PRN Reason: TACHYCARDIA Nystatin (Nystatin Oral Suspension -) 500,000 units PO Q6HPO COUNTS INCLUDE 234 BEDS AT THE [facility] Last Admin: 07/25/17 06:10 Dose: 500,000 units Pantoprazole Sodium (Protonix -) 40 mg PO DAILY COUNTS INCLUDE 234 BEDS AT THE [facility] Last Admin: 07/24/17 10:15 Dose: 40 mg - Objective Vital Signs: Vital Signs Temperature 98.4 F 07/25/17 06:00 Pulse Rate 109 H 07/25/17 06:00 Respiratory Rate 20 07/25/17 06:00 Blood Pressure 136/80 07/25/17 06:00 O2 Sat by Pulse Oximetry (%) 97 07/24/17 20:30 Constitutional: Yes: Calm Cardiovascular: Yes: Regular Rate and Rhythm, S1, S2 Respiratory: Yes: Regular, CTA Bilaterally Gastrointestinal: Yes: Normal Bowel Sounds, Soft, Melena. No: Tenderness Edema: No Neurological: Yes: Alert, Oriented, Other (unchanged Neuro examination) Labs: CBC, BMP 07/25/17 05:35 07/25/17 05:35 INR, PTT INR 1.60 (0.82-1.09) H D 07/16/17 17:15 Problem List - Problems (1) Brain bleed Code(s): I61.9 - NONTRAUMATIC INTRACEREBRAL HEMORRHAGE, UNSPECIFIED (2) NSTEMI (non-ST elevated myocardial infarction) Code(s): I21.4 - NON-ST ELEVATION (NSTEMI) MYOCARDIAL INFARCTION (3) CVA (cerebral vascular accident) Code(s): I63.9 - CEREBRAL INFARCTION, UNSPECIFIED (4) Elevated troponin I level Code(s): R74.8 - ABNORMAL LEVELS OF OTHER SERUM ENZYMES (5) Anemia Code(s): D64.9 - ANEMIA, UNSPECIFIED Qualifiers: Iron deficiency anemia type: chronic blood loss (6) GIB (gastrointestinal bleeding) Code(s): K92.2 - GASTROINTESTINAL HEMORRHAGE, UNSPECIFIED Qualifiers: GI bleed type/associated pathology: unspecified gastrointestinal hemorrhage type Qualified Code(s): K92.2 - Gastrointestinal hemorrhage, unspecified (7) Atrial fibrillation Code(s): I48.91 - UNSPECIFIED ATRIAL FIBRILLATION (8) CAD (coronary artery disease) Code(s): I25.10 - ATHSCL HEART DISEASE OF [place] CORONARY ARTERY W/O ANG PCTRS (9) COPD (chronic obstructive pulmonary disease) Code(s): J44.9 - CHRONIC OBSTRUCTIVE PULMONARY DISEASE, UNSPECIFIED (10) Diabetes mellitus Code(s): E11.9 - TYPE 2 DIABETES MELLITUS WITHOUT COMPLICATIONS (11) HTN (hypertension) Code(s): I10 - ESSENTIAL (PRIMARY) HYPERTENSION (12) Hyperlipidemia Code(s): E78.5 - HYPERLIPIDEMIA, UNSPECIFIED (13) Lung nodule Code(s): R91.1 - SOLITARY PULMONARY NODULE (14) Pacemaker Code(s): Z95.0 - PRESENCE OF CARDIAC PACEMAKER (15) Hypernatremia Code(s): E87.0 - HYPEROSMOLALITY AND HYPERNATREMIA Assessment/Plan Admitted to ICU, transferred to Telemetry. IV Heparin was started on admission.Heparin was stopped secondary to intracranial bleed; 24 hours later Heparin was restarted, patient is t olerating it well. Pt was started on Eliquis yesterday (Heparin was stopped). Neurochecks To monitor CE- trending down. Neuro, Cardio, GI, Speech/ swallow consults and f/u appreciated. DVT proph. GI proph. To increase PO intake of free water; I spoke with pt's nurse and nursing rate supervisor. Pt's at bedside. Latest Head CT scan report was reviewed again with pt's ; he was made aware that pt has a degree of visual field deficit- per CT scan report- although difficult to evaluate now, secondary to pt's condition. CM for Rehab placement (pt's is aware).
[2017-07-25] MEDS: PANTOPRAZOLE 40 MG TABLET (FP) PO SCH (09:37)
[2017-07-25] MEDS: FERROUS SO4 325 MG TABLET (FP) PO SCH (09:37)
[2017-07-25] MEDS: APIXABAN 5 MG TABLET PO SCH ×2 (09:37→21:46)
[2017-07-25] MEDS: LISINOPRIL 10 MG TABLET (FP) PO SCH (09:37)
--- NOTE | 2017-07-25 11:26 | PN ---
Progress Note (short form) - Note Progress Note: s: no cp sob palps dizzy; still with slurred speech and right weakness o: Current Medications Generic Name Dose Route Start Last Admin Trade Name Ebenq PRN Reason Stop Dose Admin Apixaban 5 mg 07/24/17 10:00 07/25/17 09:37 Eliquis - PO 5 mg BID [facility] Administration Atorvastatin Calcium 80 mg 07/22/17 22:00 07/24/17 21:47 Lipitor - PO 80 mg HS [facility] Administration Dextrose 25 gm 07/22/17 18:17 D50w (Vial) - IVPUSH PRN PRN IF BLOOD SUGAR < 50 Dextrose 12.5 gm 07/22/17 18:17 D50w (Vial) - IVPUSH PRN PRN IF BLOOD SUGAR 50-69 Ferrous Sulfate 325 mg 07/24/17 08:00 07/25/17 09:37 Feosol - PO 325 mg DAILY@0800 [facility] Administration Furosemide 40 mg 07/23/17 06:00 07/25/17 06:11 Lasix - PO 40 mg BID@0600,1400 [facility] Administration Sodium Chloride 500 mls @ 50 mls/hr 07/24/17 21:45 07/24/17 21:54 1/2 Normal Saline IV 50 mls/hr ASDIR [facility] Administration Insulin Aspart 1 vial 07/22/17 22:00 07/25/17 06:17 Novolog Vial Sliding Scale - SQ 4 units ACHS [facility] Administration Protocol Insulin Detemir 30 units 07/23/17 07:00 07/25/17 06:17 Levemir Vial SQ 30 units 0700 [facility] Administration Lisinopril 10 mg 07/23/17 10:00 07/25/17 09:37 Prinivil PO 10 mg DAILY [facility] Administration Metoprolol Tartrate 75 mg 07/22/17 22:00 07/25/17 06:11 Lopressor - PO 75 mg TID [facility] Administration Metoprolol Tartrate 5 mg 07/22/17 18:17 Lopressor Injection - IVPUSH Q4H PRN TACHYCARDIA Nystatin 500,000 units 07/23/17 00:00 07/25/17 06:10 Nystatin Oral Suspension - PO 500,000 units Q6HPO [facility] Administration Pantoprazole Sodium 40 mg 07/23/17 10:00 07/25/17 09:37 Protonix - PO 40 mg DAILY [facility] Administration Vital Signs Period Temp Pulse Resp BP Sys/[place] Pulse Ox Last 24 Hr 98.2 F-99.2 F 96-109 16-20 130-146/62-100 97-97 nad no jvd irreg, tachy, s1s2 no mrg ctab, nl eff abd nt nd pos bs no jaundice diaphoresis aaox3 no le edema bl, no c/c slurred speech CBC, BMP 07/25/17 05:35 07/25/17 05:35 tele: afib, rate ok ecg: afib rate 110s, nl qtc, no ischemic changes, nonspec st-t changes, no sig change from prior ecg earlier this month echo 06/2016: nl lv/rv, mild emmanuelle, mv ring, mod tr, mild phtn echo 07/2017: nl lv, rv tds, emmanuelle, mod-sev tr, nl rvsp cxr: no sig chf endoscopy 07/2017: Bleeding source appears to be vascular ectasias, likely in the small bowel as large cecal nonbleeding angiodysplasias were seen. 4 colon polyps were removed. Should have capsule endoscopy as outpatient. Assessment/Plan a/p: hpi: 77 f hx mv ring repair 2009, afib, dm, htn, ppm, hld, chf here with difficulty speaking. cva: -occurred in setting of holding coumadin for 5 days 2/2 gib and polypectomy -head ct shows possible bleed near cva so hep gtt stopped 07/18, cleared to resume 07/19 by neuro. -neuro following -back on ac, eliquis NSTEMI: -no cp at present -ecg unchanged from prior -echo with nl lvef -will likely need cardiac cath after acute cva issues resolve--> d/w interventionalist and plan is for cath after rehab is complete. anemia: -endoscopy 07/2017: Bleeding source appears to be vascular ectasias, likely in the small bowel. -hgb stable today (07/20) 9.5 (9.3) -07/21-07/24: Hgb stable ~ 9's. chronic diastolic chf: -stable, cont lasix 40 po bid mv repair: -normal fcn on recent echo afib: -on eliquis -rate ok on bb cardiac melendez stable for rehab
--- NOTE | 2017-07-25 11:26 | PN ---
Progress Note, REHEATER - Note Progress Note: Pt very motivated in speech therapy. Severe vocal/gera-verbal apraxia with rare sounds elicited. Produced rare words in social speech/automatic series tasks and in saying "Our Father..." Excellent attention span. Pointing to words on communication board 60% of time (8 way discrimination/all on left side of page for now). Using gesture more. Pt's is uinderstanding more about Aphasia and he practices Comm board and word elicitation drills with her. REC: Acute rehabilitation
--- NOTE | 2017-07-25 12:52 | PN ---
Progress Note (short form) - Note Progress Note: PULMONARY Still with right hemiparesis and aphasic. Slight movement of right leg and hand per at bedside Last Vital Signs Temp Pulse Resp BP Pulse Ox 99.1 F 107 H 20 146/100 97 07/25/17 09:46 07/25/17 09:46 07/25/17 09:46 07/25/17 09:46 07/25/17 09:00 Gen: aphasic Heart: tachycardic, irregular Lung: decreased breath sounds at the bases Abd: soft, nontender Ext: no edema CBC, BMP 07/25/17 05:35 07/25/17 05:35 Active Medications Apixaban (Eliquis -) 5 mg PO BID [facility] Last Admin: 07/25/17 09:37 Dose: 5 mg Atorvastatin Calcium (Lipitor -) 80 mg PO HS [facility] Last Admin: 07/24/17 21:47 Dose: 80 mg Dextrose (D50w (Vial) -) 25 gm IVPUSH PRN PRN PRN Reason: IF BLOOD SUGAR < 50 Dextrose (D50w (Vial) -) 12.5 gm IVPUSH PRN PRN PRN Reason: IF BLOOD SUGAR 50-69 Ferrous Sulfate (Feosol -) 325 mg PO DAILY@0800 [facility] Last Admin: 07/25/17 09:37 Dose: 325 mg Furosemide (Lasix -) 40 mg PO BID@0600,1400 [facility] Last Admin: 07/25/17 06:11 Dose: 40 mg Sodium Chloride (1/2 Normal Saline) 500 mls @ 50 mls/hr IV ASDIR [facility] Last Admin: 07/24/17 21:54 Dose: 50 mls/hr Insulin Aspart (Novolog Vial Sliding Scale -) 1 vial SQ ACHS [facility]; Protocol Last Admin: 07/25/17 06:17 Dose: 4 units Insulin Detemir (Levemir Vial) 30 units SQ 0700 [facility] Last Admin: 07/25/17 06:17 Dose: 30 units Lisinopril (Prinivil) 10 mg PO DAILY [facility] Last Admin: 07/25/17 09:37 Dose: 10 mg Metoprolol Tartrate (Lopressor -) 75 mg PO TID [facility] Last Admin: 07/25/17 06:11 Dose: 75 mg Metoprolol Tartrate (Lopressor Injection -) 5 mg IVPUSH Q4H PRN PRN Reason: TACHYCARDIA Nystatin (Nystatin Oral Suspension -) 500,000 units PO Q6HPO [facility] Last Admin: 07/25/17 06:10 Dose: 500,000 units Pantoprazole Sodium (Protonix -) 40 mg PO DAILY [facility] Last Admin: 07/25/17 09:37 Dose: 40 mg A/P Acute CVA Acute NSTEMI LV Diastolic Dysfunction Atrial Fibrillation with RVR s/p PPM HTN DM Hyperlipidemia h/o GI Bleed Anemia - continue anticoagulation - statin - monitor H/H - rate control with metoprolol - rehab/PT
--- NOTE | 2017-07-25 14:37 | PN ---
Progress Note (short form) - Note Progress Note: 7 YO Hx/o A Fib on AC, recent GIB and anemia requiring PRBC transfusion and EGD / colonoscopy (s/p four colon polyp resection), off Coumadin post colon polyp resection (was restarted on 07/13/17) , was in [employer] store 07/16/17 (she dropped an item from the cart without noticing it- per her ) and later in [employer] store when developed garbled speech. Pt came by EMS to ER, found to have dysarthria and left side tongue deviation, had head CT scan (negative for acute event); found to have SUB TX INR spoke to ER at the time, low NIH - HX of coumadin , recent GI BLEED, no TPA given pt was diagnosed with TIA and was started on IV Heparin. HX of GI bleed-- but risk/benefits discussed with team and was cleared for HEPARIN FU : R sided weakness worse, aphasic rpt HD CT No significant interval change in the size or appearance of the previously visualized acute/ subacute infarct in the right occipital lobe with questionable minimal hemorrhage, for which continued follow-up or an MRI is needed. - Past Medical History Cardio/Vascular: Yes: AFIB (on AC), Aortic Stenosis (s/p ring repair at [facility]), CAD, HTN, Other (PPM) Pulmonary: Yes: COPD Gastrointestinal: Yes: GI Bleed, Other (colon polyps, s/p four polyps resection) ...: No Rheumatology: Yes: Other (osteoarthritis) Endocrine: Yes: Diabetes Mellitus - Alcohol/Substance Use Hx Alcohol Use: No History of Substance Use: reports: None - Smoking History Smoking history: Former smoker Have you smoked in the past 12 months: No If you are a former smoker, when did you quit?: 2007 - Social History Usual Living Arrangement: With Spouse ADL: Independent 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 History of Recent Travel: No Home Medications - Allergies Allergies/Adverse Reactions: Allergies Allergy/AdvReac Type Severity Reaction Status Date / Time No Known Allergies Allergy Verified 07/16/17 16:49 - Home Medications Home Medications: Ambulatory Orders Amlodipine Besylate [Norvasc -] 10 mg PO DAILY 06/28/16 Aspirin [ASA -] 81 mg PO DAILY 06/28/16 Lisinopril 10 mg PO DAILY 06/28/16 Simvastatin 10 mg PO DAILY 06/28/16 Furosemide [Lasix -] 40 mg PO BID@0600,1400 #180 tablet 07/04/16 Insulin (Levemir) [Levemir Vial] 38 units SQ ACBK 07/03/17 Sitagliptin Phos/Metformin HCl [Janumet 50-1,000 mg Tablet] 1 each PO DAILY 04/21 Ascorbic Acid [Vitamin C -] 500 mg PO BID 30 Days #60 tablet MDD 2 07/10/17 Bacitracin - [Bacitracin Topical Ointment -] 1 applic TP BID tube 07/10/17 Ferrous Sulfate [Feosol] 325 mg PO BID #60 ud MDD 2 07/10/17 Warfarin Na [Coumadin -] 5 mg PO SuTuThSa@18 #0 tablet 07/10/17 Warfarin Na [Coumadin -] 6 mg PO MoWeFr@1800 #0 tablet 07/10/17 Metoprolol Succinate [Toprol XL -] 50 mg PO DAILY 07/17/17 Polyethylene Glycol 3350 [Miralax 119 gm Btl -] 17 gm PO BID PRN MDD 2 07/17/17 Family Disease History - Family Disease History Family Disease History: Heart Disease: Father ( [place] age 67), Mother ( CHF in her 70's) Physical Exam-Neuro Awake, alert, and in good spirits. Some vocalizations, but no verbiage. NIH Stroke Scale - Last Known Well Date/Time & Onset Date Last Known Well: 07/16/17 Time Last Known Well: 16:00 - Initial Evaluation Level of consciousness: Not alert, but arousable with minimal stimulation Ask patient the month and their age: Both incorrect Ask patient to open & close eyes; make fist and let go: Both incorrect Best gaze (horizontal eye movement): Normal Visual field testing: No visual field loss Facial paresis (Show teeth/raise eyebrows/close eyes tight): Partial paralysis ( total or near paralysis of lower face) Motor Function: Left Arm: Normal Motor Function: Right Arm: Drift Motor Function: Left Leg: Normal (extends leg 30 degrees for 5 seconds without drift) Motor Function: Right Leg: Normal (extends leg 30 degrees for 5 seconds without drift) Limb Ataxia: No ataxia Sensory(Use pinprick test arms,legs,trunk,face/side to side): Normal Best language (Describe picture, name items, read sentences): Severe aphasia Dysarthria (read several words): Near unintelligible or unable to speak Extinction and Inattention: No abnormality (12) - Total Score NIH Stroke Scale Score: [address] scan 07/24 evolving L MCA infarct. No bleed. Assessment/Plan Hx/o A Fib on AC, recent GIB and anemia requiring PRBC transfusion and EGD/ colonoscopy (s/p four colon polyp resection), off Coumadin post colon polyp resection (was recently restarted in 07/13/17) , with new onset aphasia, dysarthria on 07/16/17 ound to have SUB TX INR in ER spoke to ER at the time, low NIH - HX of coumadin , recent GI bleed , no TPA given pt was diagnosed with TIA and was started on IV Heparin. HX of GI bleed--HX of GI bleed-- but risk/benefits discussed with team and was cleared for HEPARIN Sx progressed through out day L MCA STROKE -- from afib , sub TX INR, with expressive aphasia and R HEMIP; Remains alert. Can be transitioned to oral anticoagulation.
[2017-07-25] MEDS ORDERED: PT OWN MED DRAWER 7, Y5N ONE (17:28)
[2017-07-25] MEDS: ATORVASTATIN CA 80 MG TABLET (FP) PO SCH (21:46)
[2017-07-26] MEDS: NYSTATIN 500,000 UNITS/5 ML SUSPENSION PO SCH ×3 (00:10→13:55)
[2017-07-26 06:27] LABS: HEMATOCRIT 33.8 % (32.4-45.2); HEMOGLOBIN 10.3 GM/dL (10.7-15.3); MCH 22.6 pg (25.7-33.7); MCHC 30.4 g/dl (32.0-36.0); MEAN CELL VOLUME 74.4 fl (80-96); MEAN PLT VOLUME 8.3 fl (7.5-11.1); PLATELET COUNT 538 K/MM3 (134-434); RBC 4.54 M/mm3 (3.60-5.2); RDW 19.1 % (11.6-15.6); WHITE BLOOD COUNT 11.4 K/mm3 (4.0-10.0)
[2017-07-26] MEDS ORDERED: INSULIN (NOVOLOG) ASPART 100 UNITS/ML 10ML VIAL ONE (06:35)
[2017-07-26] MEDS: METOPROLOL TARTRATE 50 MG TABLET (FP) PO SCH ×2 (06:39→13:55)
[2017-07-26] MEDS: INSULIN (LEVEMIR) 100 UNITS/ML UNITS SQ SCH (06:39)
[2017-07-26] MEDS: FUROSEMIDE 40 MG TABLET (FP) PO SCH ×2 (06:39→13:55)
[2017-07-26] MEDS: INSULIN SLIDING SCALE (NOVOLOG) 1 VIAL SQ SCH ×2 (06:40→12:49)
[2017-07-26] MEDS ORDERED: PT OWN MED DRAWER 7, Y5N ONE ×2 (09:02→13:28)
[2017-07-26] MEDS: FERROUS SO4 325 MG TABLET (FP) PO SCH (09:06)
[2017-07-26] MEDS: PANTOPRAZOLE 40 MG TABLET (FP) PO SCH (09:06)
[2017-07-26] MEDS: LISINOPRIL 10 MG TABLET (FP) PO SCH (09:06)
[2017-07-26] MEDS: APIXABAN 5 MG TABLET PO SCH (09:06)
--- NOTE | 2017-07-26 10:00 | DS ---
Physical Examination Vital Signs: Vital Signs Temperature 98.0 F 07/26/17 06:30 Pulse Rate 108 H 07/26/17 06:30 Respiratory Rate 18 07/26/17 09:00 Blood Pressure 124/57 07/26/17 06:30 O2 Sat by Pulse Oximetry (%) 97 07/26/17 09:00 Findings/Remarks: Pt w/o SOB, CP, palpitations, abd pain. Pt's is at the bedside; benefits and dificulties during Rehab were reviewed with pt and pt's . We discussed about removing [place]; risk of urinary infection were reviewed with both; pt doen't want it removed, states that pt doesn't want to use bedpan; pt maintain [place] for now. Constitutional: Yes: No Distress, Calm Cardiovascular: Yes: Regular Rate and Rhythm, S1, S2 Respiratory: Yes: Regular, CTA Bilaterally. No: Rales Gastrointestinal: Yes: Normal Bowel Sounds, Soft. No: Tenderness Edema: No Neurological: Yes: Alert, Oriented, Other (Sensory is symmetric Motor is unchanged on right side (arm and leg) Motor on left side 5/5. Pt makes noise while trying to speak- improved over the last days, when she was mute.) Labs: CBC, BMP 07/26/17 06:00 07/25/17 05:35 Discharge Summary Reason For Visit: CEREBROVASCULAR ACCIDENT(CVA) Current Active Problems Brain bleed (Acute) CVA (cerebral vascular accident) (Acute) Diverticulosis (Acute) Elevated troponin I level (Acute) Hypernatremia (Acute) NSTEMI (non-ST elevated myocardial infarction) (Acute) Procedures: Principal: Head CT scans Hospital Course: Pt came to ER with garbaled speech in the afternoon; pt had chest pain in the morning for couple of hours w/o seeking medical help. In ER she was found to have elevated Trop I/ NSTEMI, Acute CVA; pt was started on IV Heparin drip, admitted to ICU; CVA evolved with speech getting worse, pt became aphasic, and developed right hemiplegia. Pt was seen in consult by Neuro (Dr Sutherland), Cardi ( Dr. Davalos), CCM team, GI (Dr. Lyles). During hospitalization pt had several head CT scans. Pt's latest head CT scan showed occipital lobe subacute infarct , left periventricular subacute infarct. Pt's hospital stay was also significant for right occipital lobe petechial hemorrhage, which on followup CT scan resolved. Pt was started on PO AC (Eliquis), medication was adjusted for better HR abd HTN control. Pt to be DC'ed to Rehab. Pt needs folllow-up with Cardio (Dr. Benitez) after Rehab for cardiac reevaluation. Condition: Fair - Instructions Diet, Activity, Other Instructions: ADA, Low fat, Low cholesterol Dysphagia Diet. Follow-up with Cardio (Dr. Benitez) after Rehab for cardiac reevaluation. Referrals: Lily Maher MD [Primary Care Provider] - 1 Week (within 1 week after discharge from Rehab) Kevin Davalos MD [Staff Physician] - (within 1 week after discharge from Rehab) Disposition: NURSING HOME FACILITY - Home Medications Comprehensive Discharge Medication List: Ambulatory Orders
--- NOTE | 2017-07-26 11:20 | PN ---
Progress Note (short form) - Note Progress Note: s: no cp sob palps dizzy; still with slurred speech and right weakness o: Current Medications Generic Name Dose Route Start Last Admin Trade Name Ebenq PRN Reason Stop Dose Admin Apixaban 5 mg 07/24/17 10:00 07/26/17 09:06 Eliquis - PO 5 mg BID [facility] Administration Atorvastatin Calcium 80 mg 07/22/17 22:00 07/25/17 21:46 Lipitor - PO 80 mg HS [facility] Administration Dextrose 25 gm 07/22/17 18:17 D50w (Vial) - IVPUSH PRN PRN IF BLOOD SUGAR < 50 Dextrose 12.5 gm 07/22/17 18:17 D50w (Vial) - IVPUSH PRN PRN IF BLOOD SUGAR 50-69 Ferrous Sulfate 325 mg 07/24/17 08:00 07/26/17 09:06 Feosol - PO 325 mg DAILY@0800 [facility] Administration Furosemide 40 mg 07/23/17 06:00 07/26/17 06:39 Lasix - PO 40 mg BID@0600,1400 [facility] Administration Insulin Aspart 1 vial 07/22/17 22:00 07/26/17 06:40 Novolog Vial Sliding Scale - SQ 6 units ACHS [facility] Administration Protocol Insulin Detemir 30 units 07/23/17 07:00 07/26/17 06:39 Levemir Vial SQ 30 units 0700 [facility] Administration Lisinopril 10 mg 07/23/17 10:00 07/26/17 09:06 Prinivil PO 10 mg DAILY [facility] Administration Metoprolol Tartrate 75 mg 07/22/17 22:00 07/26/17 06:39 Lopressor - PO 75 mg TID [facility] Administration Metoprolol Tartrate 5 mg 07/22/17 18:17 Lopressor Injection - IVPUSH Q4H PRN TACHYCARDIA Nystatin 500,000 units 07/23/17 00:00 07/26/17 06:39 Nystatin Oral Suspension - PO 500,000 units Q6HPO [facility] Administration Pantoprazole Sodium 40 mg 07/23/17 10:00 07/26/17 09:06 Protonix - PO 40 mg DAILY [facility] Administration Vital Signs Period Temp Pulse Resp BP Sys/[place]fe Pulse Ox Last 24 Hr 98.0 F-98.9 F 91-108 18- 121-132/57-76 97-97 nad no jvd irreg, tachy, s1s2 no mrg ctab, nl eff abd nt nd pos bs no jaundice diaphoresis aaox3 no le edema bl, no c/c slurred speech CBC, BMP 07/26/17 06:00 07/25/17 05:35 tele: afib, rate ok ecg: afib rate 110s, nl qtc, no ischemic changes, nonspec st-t changes, no sig change from prior ecg earlier this month echo 06/2016: nl lv/rv, mild emmanuelle, mv ring, mod tr, mild phtn echo 07/2017: nl lv, rv tds, emmanuelle, mod-sev tr, nl rvsp cxr: no sig chf endoscopy 07/2017: Bleeding source appears to be vascular ectasias, likely in the small bowel as large cecal nonbleeding angiodysplasias were seen. 4 colon polyps were removed. Should have capsule endoscopy as outpatient. Assessment/Plan a/p: hpi: 77 f hx mv ring repair 2009, afib, dm, htn, ppm, hld, chf here with difficulty speaking. cva: -occurred in setting of holding coumadin for 5 days 2/2 gib and polypectomy -head ct shows possible bleed near cva so hep gtt stopped 07/18, cleared to resume 07/19 by neuro. -neuro following -back on ac, eliquis NSTEMI: -no cp at present -ecg unchanged from prior -echo with nl lvef -will likely need cardiac cath after acute cva issues resolve--> d/w interventionalist and plan is for cath after rehab is complete. anemia: -endoscopy 07/2017: Bleeding source appears to be vascular ectasias, likely in the small bowel. -hgb stable today (07/20) 9.5 (9.3) -07/21-07/24: Hgb stable ~ 9's. chronic diastolic chf: -stable, cont lasix 40 po bid mv repair: -normal fcn on recent echo afib: -on eliquis -rate ok on bb cardiac melendez stable for rehab
--- NOTE | 2017-07-26 12:26 | PN ---
Progress Note (short form) - Note Progress Note: 7 YO Hx/o A Fib on AC, recent GIB and anemia requiring PRBC transfusion and EGD / colonoscopy (s/p four colon polyp resection), off Coumadin post colon polyp resection (was restarted on 07/13/17) , was in [employer] store 07/16/17 (she dropped an item from the cart without noticing it- per her ) and later in [employer] store when developed garbled speech. Pt came by EMS to ER, found to have dysarthria and left side tongue deviation, had head CT scan (negative for acute event); found to have SUB TX INR spoke to ER at the time, low NIH - HX of coumadin , recent GI BLEED, no TPA given pt was diagnosed with TIA and was started on IV Heparin. HX of GI bleed-- but risk/benefits discussed with team and was cleared for HEPARIN FU : R sided weakness worse, aphasic rpt HD CT No significant interval change in the size or appearance of the previously visualized acute/ subacute infarct in the right occipital lobe with questionable minimal hemorrhage, for which continued follow-up or an MRI is needed. - Past Medical History Cardio/Vascular: Yes: AFIB (on AC), Aortic Stenosis (s/p ring repair at [facility]), CAD, HTN, Other (PPM) Pulmonary: Yes: COPD Gastrointestinal: Yes: GI Bleed, Other (colon polyps, s/p four polyps resection) ...: No Rheumatology: Yes: Other (osteoarthritis) Endocrine: Yes: Diabetes Mellitus - Alcohol/Substance Use Hx Alcohol Use: No History of Substance Use: reports: None - Smoking History Smoking history: Former smoker Have you smoked in the past 12 months: No If you are a former smoker, when did you quit?: 2007 - Social History Usual Living Arrangement: With Spouse ADL: Independent 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 History of Recent Travel: No Home Medications - Allergies Allergies/Adverse Reactions: Allergies Allergy/AdvReac Type Severity Reaction Status Date / Time No Known Allergies Allergy Verified 07/16/17 16:49 - Home Medications Home Medications: Ambulatory Orders Amlodipine Besylate [Norvasc -] 10 mg PO DAILY 06/28/16 Aspirin [ASA -] 81 mg PO DAILY 06/28/16 Lisinopril 10 mg PO DAILY 06/28/16 Simvastatin 10 mg PO DAILY 06/28/16 Furosemide [Lasix -] 40 mg PO BID@0600,1400 #180 tablet 07/04/16 Insulin (Levemir) [Levemir Vial] 38 units SQ ACBK 07/03/17 Sitagliptin Phos/Metformin HCl [Janumet 50-1,000 mg Tablet] 1 each PO DAILY 04/21 Ascorbic Acid [Vitamin C -] 500 mg PO BID 30 Days #60 tablet MDD 2 07/10/17 Bacitracin - [Bacitracin Topical Ointment -] 1 applic TP BID tube 07/10/17 Ferrous Sulfate [Feosol] 325 mg PO BID #60 ud MDD 2 07/10/17 Warfarin Na [Coumadin -] 5 mg PO SuTuThSa@18 #0 tablet 07/10/17 Warfarin Na [Coumadin -] 6 mg PO MoWeFr@1800 #0 tablet 07/10/17 Metoprolol Succinate [Toprol XL -] 50 mg PO DAILY 07/17/17 Polyethylene Glycol 3350 [Miralax 119 gm Btl -] 17 gm PO BID PRN MDD 2 07/17/17 Family Disease History - Family Disease History Family Disease History: Heart Disease: Father ( [place] age 67), Mother ( CHF in her 70's) Physical Exam-Neuro Awake, alert, and in good spirits. Some vocalizations, but no verbiage. NIH Stroke Scale - Last Known Well Date/Time & Onset Date Last Known Well: 07/16/17 Time Last Known Well: 16:00 - Initial Evaluation Level of consciousness: Not alert, but arousable with minimal stimulation Ask patient the month and their age: Both incorrect Ask patient to open & close eyes; make fist and let go: Both incorrect Best gaze (horizontal eye movement): Normal Visual field testing: No visual field loss Facial paresis (Show teeth/raise eyebrows/close eyes tight): Partial paralysis ( total or near paralysis of lower face) Motor Function: Left Arm: Normal Motor Function: Right Arm: Drift Motor Function: Left Leg: Normal (extends leg 30 degrees for 5 seconds without drift) Motor Function: Right Leg: Normal (extends leg 30 degrees for 5 seconds without drift) Limb Ataxia: No ataxia Sensory(Use pinprick test arms,legs,trunk,face/side to side): Normal Best language (Describe picture, name items, read sentences): Severe aphasia Dysarthria (read several words): Near unintelligible or unable to speak Extinction and Inattention: No abnormality (12) - Total Score NIH Stroke Scale Score: [address] scan 07/24 evolving L MCA infarct. No bleed. Assessment/Plan Hx/o A Fib on AC, recent GIB and anemia requiring PRBC transfusion and EGD/ colonoscopy (s/p four colon polyp resection), off Coumadin post colon polyp resection (was recently restarted in 07/13/17) , with new onset aphasia, dysarthria on 07/16/17 ound to have SUB TX INR in ER spoke to ER at the time, low NIH - HX of coumadin , recent GI bleed , no TPA given pt was diagnosed with TIA and was started on IV Heparin. HX of GI bleed--HX of GI bleed-- but risk/benefits discussed with team and was cleared for HEPARIN Sx progressed through out day L MCA STROKE -- from afib , sub TX INR, with expressive aphasia and R HEMIP; Remains alert. Can be transitioned to oral anticoagulation. No neurologic contraindication to discharge to rehabilitation facility.
[2017-07-26 14:07] VITALS: BP 124/72; PULSE 117; TEMP 97.4
== END 2017-07-26 14:03 | DRG 64 ==
LOC: JER 16:45 → JERBED 20:16 → J4S 07-17 03:53 → JICU 07-17 07:22 → J4S 07-22 19:15
PROVIDERS: ADMIT Specialist; ATTEND Specialist
DX: I63.9 Cerebral infarction, unspecified (principal); I21.4 Non-ST elevation (NSTEMI) myocardial infarction; J44.1 Chronic obstructive pulmonary disease with (acute) exacerbation; K92.2 Gastrointestinal hemorrhage, unspecified; E87.0 Hyperosmolality and hypernatremia; G81.91 Hemiplegia, unspecified affecting right dominant side; I50.32 Chronic diastolic (congestive) heart failure; E78.5 Hyperlipidemia, unspecified; E11.9 Type 2 diabetes mellitus without complications; I48.91 Unspecified atrial fibrillation; I25.10 Atherosclerotic heart disease of native coronary artery without angina pectoris; D64.9 Anemia, unspecified; R91.1 Solitary pulmonary nodule; Z79.01 Long term (current) use of anticoagulants; Z95.1 Presence of aortocoronary bypass graft; R47.1 Dysarthria and anarthria; Z87.891 Personal history of nicotine dependence; R29.810 Facial weakness; R47.81 Slurred speech; I11.0 Hypertensive heart disease with heart failure; Z79.84 Long term (current) use of oral hypoglycemic drugs; Z79.4 Long term (current) use of insulin; M19.90 Unspecified osteoarthritis, unspecified site
CPT/HCPCS: 36415; 70450-TC; 71045-TC-FY; 80048; 80053; 81003; 81015; 82272; 82465; 82550; 82962; 83718; 83721; 83735; 84100; 84439; 84443; 84478; 84484; 85025; 85027; 85610; 85730; 86850; 86900; 86901; 93005; 93010; 93306-TC; 97116-GP; 97161-GP; 99285-25; J1644; J7030

== ENCOUNTER 2018-04-28 20:11 | Inpatient (IN) | payer OTHER ==
--- NOTE | 2018-04-28 21:00 | PDOC ---
History of Present Illness - General Chief Complaint: Pain Stated Complaint: ABDOMINAL PAIN Time Seen by Provider: 04/28/18 20:59 - History of Present Illness Initial Comments: 78 year old female with history of A-Fib on AC (Eliquis), hx of GIB (requiring transfusion), EGD/ colonoscopy (s/p four colon polyp resection), and recent stroke 9 months prior while off Coumadin for her colonoscopy with subsequent 8 month rehab course presenting with abdominal pain and nausea. Patient has baseline expressive deficits from her previous stroke. Describes her abdominal pain as achy right lower quadrant and occasionally nausea. Denies any bleeding from any orifice. 04/28/18 21:01 Past History - Past Medical History Allergies/Adverse Reactions: Allergies Allergy/AdvReac Type Severity Reaction Status Date / Time No Known Allergies Allergy Verified 07/16/17 16:49 Home Medications: Ambulatory Orders Apixaban [Eliquis -] 5 mg PO BID tablet 07/26/17 Ascorbic Acid [Vitamin C -] 500 mg PO DAILY 30 Days #60 tablet MDD 2 07/26/17 Atorvastatin Ca [Lipitor] 80 mg PO HS tablet 07/26/17 Ferrous Sulfate [Feosol] 325 mg PO DAILY@0800 ud 07/26/17 Pantoprazole Sodium [Protonix -] 40 mg PO DAILY tablet.ec 07/26/17 Fluoxetine HCl Liquid [Prozac Oral Solution -] 20 mg PO DAILY 04/28/18 Furosemide [Lasix -] 20 mg PO BID@0600,1400 04/28/18 Insulin Glargine,Hum.rec.anlog [Lantus] 16 unit SQ HS 04/28/18 L. Acidophilus/Pectin, [place] [Acidophilus-Pectin Capsule] 1 each PO TID Loperamide HCl [Loperamide] 2 mg PO DAILY 04/28/18 Metformin HCl [Glucophage] 1,000 mg PO BID 04/28/18 Metoprolol Tartrate [Lopressor -] 75 mg PO TID 04/28/18 Sitagliptin Phosphate [Januvia] 50 mg PO BID 04/28/18 Tamsulosin HCl [Flomax] 0.4 mg PO DAILY 04/28/18 Anemia: Yes Cardiac Disorders: Yes (afib on coumadin, CABG, PPM) CVA: No COPD: Yes (uses nc o2 @ night 1 lpm) CHF: Yes Diabetes: Yes GI Disorders: Yes (GI BLEED) HTN: Yes Hypercholesterolemia: Yes - Surgical History Cardiac Surgery: Yes (pacemaker, CABG) Orthopedic Surgery: (BONE TUMOR REMOVAL 5YRS OLD) - Immunization History Immunization Up to Date: Yes - Suicide/Smoking/Psychosocial Hx Smoking History: Unknown if ever smoked Have you smoked in the past 12 months: No If you are a former smoker, when did you quit?: 2007 Hx Alcohol Use: No Drug/Substance Use Hx: No Substance Use Type: None Hx Substance Use Treatment: No Review of Systems - Review of Systems Constitutional: No: Chills, Diaphoresis, Fever, Loss of Appetite HEENTM: No: Blurred Vision, Tearing Respiratory: No: Cough, Orthopnea, Shortness of Breath Cardiac (ROS): No: Chest Pain, Edema, Irregular Heart Rate ABD/GI: Yes: Nausea. No: Diarrhea, Poor Appetite, Poor Fluid Intake, Vomiting : No: Dysuria, Discharge, Frequency Musculoskeletal: No: Back Pain, Joint Pain, Joint Swelling Integumentary: No: Lesions, Lumps, Pallor, Pruritus Neurological: Yes: Pre-Existing Deficit (right sided weakness and aphasia) Psychiatric: No: Anxiety, Depression Endocrine: No: Flushing Hematologic/Lymphatic: Yes: Blood Clots. No: Anemia, Easy Bleeding *Physical Exam - Vital Signs Last Vital Signs Temp Pulse Resp BP Pulse Ox 98.5 F 84 20 183/95 H 96 04/28/18 20:23 04/28/18 20:23 04/28/18 20:23 04/28/18 20:23 04/28/18 20:23 - Physical Exam General Appearance: Yes: Nourished, Appropriately Dressed. No: Apparent Distress HEENT: positive: EOMI, SHASHANK, Normal Voice. negative: Normal ENT Inspection ( mild expressive aphasia/ slow speech) Neck: positive: Trachea midline, Normal Thyroid, Supple. negative: Tender, Rigid Respiratory/Chest: positive: Lungs Clear, Normal Breath Sounds. negative: Chest Tender, Respiratory Distress, Accessory Muscle Use Cardiovascular: positive: Irregularly Irregular. negative: Regular Rhythm, Regular Rate Gastrointestinal/Abdominal: positive: Normal Bowel Sounds (right lower quadrant mild abdominal pain), Tender, Flat, Soft Rectal Exam: positive: heme negative stool, normal exam, normal rectal tone. negative: hemorrhoids Lymphatic: negative: Adenopathy, Tenderness Musculoskeletal: positive: Decreased Range of Motion (right upper extremity decreased). negative: Normal Inspection (residual deficit in the right upper extremity) Extremity: positive: Normal Capillary Refill, Normal Range of Motion. negative : Normal Inspection (right upper and lower extremity weakness) Integumentary: positive: Normal Color, Dry, Warm Neurologic: positive: Fully Oriented, Alert, Normal Mood/Affect, Normal Response. negative: Motor Strength 5/5 (minimal movement of right sided with good left side movement) Moderate Sedation - Procedure Monitoring Vital Signs: Procedure Monitoring Vital Signs Temperature 98.5 F 04/28/18 20:23 Pulse Rate 84 04/28/18 20:23 Respiratory Rate 20 04/28/18 20:23 Blood Pressure 183/95 H 04/28/18 20:23 O2 Sat by Pulse Oximetry (%) 96 04/28/18 20:23 ED Treatment Course - LABORATORY CBC & Chemistry Diagram: 04/28/18 21:33 04/28/18 21:33 Medical Decision Making - Medical Decision Making 78 year old female with thromboembolic disease presenting with abdominal pain and nausea. Labs demonstrated some mild transaminitis (AST x3 and ALT x 1.5) with no other abnormalities. CT abdomen pelvis with IV contrast demonstrated some mild liver changes, splenic infarcts, and hepatic congestion from heart failure. 04/28/18 23:32 Troponin came back at 4.5 with previous values significantly lower. EKG demonstrated afib, rate 79, low voltage overall, with non-specific ST changes and overall so we will admit the patient tele-obs under Dr. Fischer with Dr. Gaines as the cardiology consult who recommended adding a dose of metoprolol to decrease her heart rate and bp (80 and 169 SBP) to decrease demand. Patient symptom free and will be sent to tele obs unit. 04/29/18 01:40 *DC/Admit/Observation/Transfer Diagnosis at time of Disposition: Troponin level elevated - Discharge Dispostion Condition at time of disposition: Stable Decision to Admit order: Yes - Referrals Referrals: Lily Maher MD [Primary Care Provider] - - Patient Instructions - Post Discharge Activity
[2018-04-28 21:50] LABS: BASO % 0.3 % (0-2.0); EOS % 0.8 % (0-4.5); HEMATOCRIT 37.3 % (32.4-45.2); HEMOGLOBIN 12.6 GM/dL (10.7-15.3); MCH 28.3 pg (25.7-33.7); MCHC 33.9 g/dl (32.0-36.0); MEAN CELL VOLUME 83.7 fl (80-96); MEAN PLT VOLUME 9.7 fl (7.5-11.1); MONO % 7.9 % (3.8-10.2); PLATELET COUNT 190 K/MM3 (134-434); RBC 4.46 M/mm3 (3.60-5.2); RDW 16.1 % (11.6-15.6)
[2018-04-28 22:20] LABS: ALBUMIN 3.5 g/dl (3.4-5.0); ALK PHOS 184 U/L (45-117); AMYLASE 25 U/L (25-115); ANION GAP 9 MMOL/L (8-16); BILIRUBIN,DIRECT 0.3 mg/dL (0.0-0.2); BILIRUBIN,TOTAL 0.8 mg/dL (0.2-1); BLOOD UREA NITROGEN 18 mg/dL (7-18); CALCIUM 9.4 mg/dL (8.5-10.1); CHLORIDE 105 mmol/L (98-107); CO2 29 mmol/L (21-32); CREATININE 1.1 mg/dL (0.55-1.3); GLUCOSE,RANDOM 172 mg/dL (74-106); LIPASE 113 U/L (73-393); SGOT/AST 129 U/L (15-37); SGPT/ALT 95 U/L (13-61); SODIUM 143 mmol/L (136-145); TOT PROT 6.9 g/dl (6.4-8.2)
[2018-04-28] MEDS ORDERED: PANTOPRAZOLE SODIUM 40 MG VIAL IVPUSH ONE (22:20)
[2018-04-28] MEDS ORDERED: MAG HYDROX/AL HYDROX/SIMETH 30 ML UNIT-DOSE CUP PO ONE (22:20)
[2018-04-28] MEDS ORDERED: FAMOTIDINE 20 MG/50 ML IVPB 20 MG/50 ML MG IVPB ONE ×3 (22:20→22:38)
[2018-04-28 22:30] LABS: INR 1.11 (0.83-1.09); PROTHROMBIN TIME (PATIENT) 13.1 SEC (9.7-13.0)
[2018-04-28] MEDS ORDERED: PANTOPRAZOLE SODIUM 40 MG VIAL ONE (22:37)
[2018-04-28] MEDS ORDERED: MAG HYDROX/AL HYDROX/SIMETH 30 ML UNIT-DOSE CUP ONE (22:37)
--- NOTE | 2018-04-29 00:54 | PDOC ---
Attending Attestation - HPI HPI: 04/29/18 00:55 The patient is a 78 year old female, with a significant past medical history of CVA (2017), DM2, Afib (on coumadin), HTN, HLD, CHF, COPD, CAD (s/p bypass graft , permanent pacemaker), who presents to the emergency department with, abdominal pain and nausea. She denies recent fevers, chills, headache or dizziness. She denies recent nausea, vomit, diarrhea or constipation. She denies recent dysuria, frequency, urgency or hematuria. She denies recent chest pain or shortness of breath. Allergies: NKDA Past surgical history: Pacemaker, CABG Social history: Former smoker 2007. No reported alcohol or drug use. Primary Care Physician: Dr. Maher <Kala Ratliff - Last Filed: 04/29/18 00:55> - Resident Resident Name: Cindi Walker - ED Attending Attestation I have performed the following: I have examined & evaluated the patient, The case was reviewed & discussed with the resident, I agree w/resident's findings & plan, Exceptions are as noted - Physicial Exam PE: 04/29/18 02:37 78-year-old female presented with abdominal pain started earlier in the evening Head normocephalic/atraumatic. Eyes extraocular muscles intact Neck supple Lungs clear to auscultation bilaterally CVS irregularly irregular rhythm. Abdomen right lower abdominal pain with palpation Musculoskeletal decreased range of motion right upper extremity. Decreased. Extremities, chronic weakness, right upper and lower extremities. Skin warm and dry. Alert and oriented and conversant - Medical Decision Making 04/29/18 02:38 Of the patient is specifically complained of chest pain. Her troponin was above 4 and she'll be admitted. CAT scan abdomen and pelvis showed that she had splenic infarcts, hepatic congestion with from heart failure and mild liver changes. There is no aortic aneurysm. EKG to my showed A. fib, rate of 79. Patient will be admitted to Dr. Gutierrez ct scan of abd/pev: acute/subacute splenic infarcts, organomegaly,hepatic ocngestion <Alicja Saldivar - Last Filed: 04/29/18 02:41> Attestations - Attestations 04/29/18 00:55 Documentation prepared by Kala Ratliff, acting as medical record specialist for Alicja Saldivar MD. <Kala Ratliff - Last Filed: 04/29/18 00:55>
[2018-04-29] MEDS ORDERED: ASPIRIN 81 MG CHEWABLE TABLETS PO ONE (01:42)
[2018-04-29] MEDS ORDERED: METOPROLOL TARTRATE 50 MG TABLET (FP) ONE (01:43)
[2018-04-29] MEDS ORDERED: ASPIRIN 81 MG CHEWABLE TABLETS ONE (01:46)
[2018-04-29 03:10] LABS: URINE APPEARANCE SLCLOUDY; URINE BILIRUBIN NEGATIVE (<2.0 mg/dL); URINE COLOR YELLOW; URINE GLUCOSE (UA) 3+ (NEGATIVE); URINE KETONE 1+ (NEGATIVE); URINE LEUK ESTERASE TRACE (NEGATIVE); URINE NITRITE NEGATIVE (NEGATIVE); URINE PROTEIN 1+ (NEGATIVE); URINE UROBILINOGEN NEGATIVE mg/dL (0.2-1.0)
[2018-04-29 03:20] LABS: EPI CELLS RARE /HPF (FEW); URINE BACTERIA FEW /hpf (NONE SEEN)
--- NOTE | 2018-04-29 09:32 | HP ---
Admitting History and Physical - Primary Care Physician PCP: Caleb Fischer - Admission Chief Complaint: Abd pain, Nausea. Chest pressure History of Present Illness: Pt with significant Hx/o CVA (summer) with right side hemiparesis and aphasia, CAD, A fib on AC, DC'ed home last week from [place] developed abd pain, mid abdomen, and nausea and chest pressure (not associated with palpitations, SOB, dizziness) yesterday. In ER abd CT scan w/o acute findings but pt has elevated Trop I. History Source: Patient Limitations to Obtaining History: Other (Aphasia) - Past Medical History INTERNET ARCHITECT: Yes: CVA (with right side hemiparesis and Aphasia) Cardiovascular: Yes: AFIB (on AC), Aortic Stenosis (s/p ring repair at [facility]), CAD , HTN, Mitral Insufficiency (MVR 2009 [facility]), Other (PPM) Pulmonary: Yes: COPD Gastrointestinal: Yes: Diverticulosis, GI Bleed (recent bleed felt 2ndary to vascular ectasias), Other (07/19 four adenomatous tx colon polyps resected, cecal angiodysplasias seen) Heme/Onc: Yes: Anemia Rheumatology: Yes: Other (osteoarthritis) Endocrine: Yes: Diabetes Mellitus - Past Surgical History Past Surgical History: Yes: Colonoscopy, Upper Endoscopy - Smoking History Smoking history: Unknown if ever smoked Have you smoked in the past 12 months: No If you are a former smoker, when did you quit?: 2007 - Alcohol/Substance Use Hx Alcohol Use: No History of Substance Use: reports: None - Social History ADL: Independent 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 History of Recent Travel: No Home Medications - Allergies Allergies/Adverse Reactions: Allergies Allergy/AdvReac Type Severity Reaction Status Date / Time No Known Allergies Allergy Verified 07/16/17 16:49 - Home Medications Home Medications: Ambulatory Orders Apixaban [Eliquis -] 5 mg PO BID tablet 07/26/17 Ascorbic Acid [Vitamin C -] 500 mg PO DAILY 30 Days #60 tablet MDD 2 07/26/17 Atorvastatin Ca [Lipitor] 80 mg PO HS tablet 07/26/17 Ferrous Sulfate [Feosol] 325 mg PO DAILY@0800 ud 07/26/17 Pantoprazole Sodium [Protonix -] 40 mg PO DAILY tablet.ec 07/26/17 Fluoxetine HCl Liquid [Prozac Oral Solution -] 20 mg PO DAILY 04/28/18 Furosemide [Lasix -] 20 mg PO BID@0600,1400 04/28/18 Insulin Glargine,Hum.rec.anlog [Lantus] 16 unit SQ HS 04/28/18 L. Acidophilus/Pectin, [place] [Acidophilus-Pectin Capsule] 1 each PO TID Loperamide HCl [Loperamide] 2 mg PO DAILY 04/28/18 Metformin HCl [Glucophage] 1,000 mg PO BID 04/28/18 Metoprolol Tartrate [Lopressor -] 75 mg PO TID 04/28/18 Sitagliptin Phosphate [Januvia] 50 mg PO BID 04/28/18 Tamsulosin HCl [Flomax] 0.4 mg PO DAILY 04/28/18 Family Disease History - Family Disease History Family Disease History: Heart Disease: Father ( [place] age 67), Mother ( CHF in her 70's) Review of Systems - Review of Systems Constitutional: denies: Chills, Fever Eyes: denies: Blurred Vision, Double Vision HENT: denies: Ear Discharge, Nasal Congestion, Throat Pain Neck: denies: Pain on Movement, Stiffness Cardiovascular: denies: Chest Pain (now), Palpitations, Shortness of Breath Respiratory: denies: Cough, Exercise Intolerance, SOB Gastrointestinal: denies: Abdominal Pain (now), Constipation, Diarrhea, Vomiting Genitourinary: denies: Burning, Dysuria Musculoskeletal: denies: Back Pain, Muscle Pain Integumentary: denies: Bruising, Rash Neurological: denies: Change in LOC, Change in Speech, Numbness Endocrine: denies: Excessive Sweating, Intolerance to Cold Hematology/Lymphatic: denies: Easily Bruised, Excessive Bleeding Psychiatric: reports: Anxiety (occasionally). denies: Altered Sleep Pattern, Depression Physical Examination Vital Signs: Vital Signs Temperature 98.5 F 04/29/18 06:32 Pulse Rate 77 04/29/18 06:32 Respiratory Rate 19 04/29/18 06:32 Blood Pressure 164/78 04/29/18 06:32 O2 Sat by Pulse Oximetry (%) 100 04/29/18 06:32 Constitutional: Yes: No Distress, Calm Eyes: Yes: EOM Intact. No: Diplopia HENT: No: Epistaxis, Rhinnorhea Neck: Yes: Trachea Midline. No: Lymphadenopathy Cardiovascular: Yes: Pulse Irregular, S1, S2 Respiratory: Yes: Regular, CTA Bilaterally. No: Rhonchi Gastrointestinal: Yes: Normal Bowel Sounds, Soft. No: Palpable Mass, Tenderness ...Rectal Exam: Yes: Deferred Renal/: Yes: CVA Tenderness - Left, CVA Tenderness - Right Breast(s): Yes: Other (deferred) Musculoskeletal: No: Joint Swelling, Muscle Pain Extremities: No: Cold, Cool Edema: No Neurological: Yes: Alert, Oriented, Aphasia, Other (decereased motor on right side) Psychiatric: Yes: Alert, Oriented Labs: CBC, BMP 04/28/18 21:33 04/28/18 21:33 Imaging - Results Cat Scan: Report Reviewed Problem List - Problems (1) NSTEMI (non-ST elevated myocardial infarction) Code(s): I21.4 - NON-ST ELEVATION (NSTEMI) MYOCARDIAL INFARCTION (2) Abdominal pain Assessment/Plan: unclear etiology; to monitor Code(s): R10.9 - UNSPECIFIED ABDOMINAL PAIN (3) CVA (cerebral vascular accident) Code(s): I63.9 - CEREBRAL INFARCTION, UNSPECIFIED (4) Diabetes mellitus Code(s): E11.9 - TYPE 2 DIABETES MELLITUS WITHOUT COMPLICATIONS Qualifiers: Diabetes mellitus type: type 2 Diabetes mellitus emt intermediate insulin use: without jail use Diabetes mellitus complication status: without complication Qualified Code(s): E11.9 - Type 2 diabetes mellitus without complications (5) HTN (hypertension) Code(s): I10 - ESSENTIAL (PRIMARY) HYPERTENSION Qualifiers: Hypertension type: essential hypertension Qualified Code(s): I10 - Essential (primary) hypertension (6) Hyperlipidemia Code(s): E78.5 - HYPERLIPIDEMIA, UNSPECIFIED Qualifiers: Hyperlipidemia type: pure hypercholesterolemia Qualified Code(s): E78.00 - Pure hypercholesterolemia, unspecified; E78.0 - Pure hypercholesterolemia (7) Pacemaker Code(s): Z95.0 - PRESENCE OF CARDIAC PACEMAKER (8) CAD (coronary artery disease) Code(s): I25.10 - ATHSCL HEART DISEASE OF [place] CORONARY ARTERY W/O ANG PCTRS Qualifiers: Coronary Disease-Associated Artery/Lesion type: [place] artery [place] vs. transplanted heart: [place] heart Associated angina: without angina Qualified Code(s): I25.10 - Atherosclerotic heart disease of [place] coronary artery without angina pectoris (9) COPD (chronic obstructive pulmonary disease) Code(s): J44.9 - CHRONIC OBSTRUCTIVE PULMONARY DISEASE, UNSPECIFIED (10) Abnormal LFTs Code(s): R94.5 - ABNORMAL RESULTS OF LIVER FUNCTION STUDIES Assessment/Plan Admit to monitor bed. Serial CE Cardio Consult. Repeat labs Cont AC, ASA, BB, Statin. Case was d/w pt and pt's (at bedside); all questions were answered. AM labs
--- NOTE | 2018-04-29 10:44 | CON.CARD ---
Consult Consult Specialty:: Cardiology Referred by:: Dr. Fischer Reason for Consultation:: Cardiac evaluation - History of Present Illness Chief Complaint: Abdominal discomfort History of Present Illness: Patient is a 78 year old female with underlying history of CVA with right sided residual weakness, type 2 DM, hypercholesterolemia, AF on Coumadin therapy, HTN , CAD, angina, history of mitral valve repair, sick sinus syndrome s/p PPM and COPD who presents with abdominal pain and nausea. He had seen Dr. Dread Cowan of [facility] previously and when she was admitted to [facility] previously, she was seen by the [facility]. She has dysarthria due to CVA, otherwise she is alert and oriented. She denies chest pain, SOB or palpitations. She denies paroxysmal nocturnal dyspnea or orthopnea. She denies fever or chills. She denies headache or lightheadedness. PMD: Lily Maher MD and had seen Dread Cowan MD (Cardiology) but has not seen either for some time - History Source History Provided By: Patient, Family Member, Medical Record Limitations to Obtaining History: Physical Impairment - Past Medical History Cardio/Vascular: Yes: AFIB, CAD, HTN, Mitral Insufficiency (? mitral valve repair), Other (PPM) Pulmonary: Yes: COPD, Sleep Apnea Gastrointestinal: Yes: Diverticulosis, GI Bleed (recent bleed felt 2ndary to vascular ectasias), Other (07/19 four adenomatous tx colon polyps resected, cecal angiodysplasias seen) Rheumatology: Yes: Other (osteoarthritis) Endocrine: Yes: Diabetes Mellitus - Past Surgical History Past Surgical History: Yes: Colonoscopy, Upper Endoscopy Additional Surgical History: Mitral valve repair (needs to be clarified) - Alcohol/Substance Use Hx Alcohol Use: No History of Substance Use: reports: None - Smoking History Smoking history: Former smoker Have you smoked in the past 12 months: No If you are a former smoker, when did you quit?: 2007 - Social History Usual Living Arrangement: With Spouse ADL: Independent 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 History of Recent Travel: No Home Medications - Allergies Allergies/Adverse Reactions: Allergies Allergy/AdvReac Type Severity Reaction Status Date / Time No Known Allergies Allergy Verified 07/16/17 16:49 - Home Medications Home Medications: Ambulatory Orders Apixaban [Eliquis -] 5 mg PO BID tablet 07/26/17 Ascorbic Acid [Vitamin C -] 500 mg PO DAILY 30 Days #60 tablet MDD 2 07/26/17 Atorvastatin Ca [Lipitor] 80 mg PO HS tablet 07/26/17 Ferrous Sulfate [Feosol] 325 mg PO DAILY@0800 ud 07/26/17 Pantoprazole Sodium [Protonix -] 40 mg PO DAILY tablet.ec 07/26/17 Fluoxetine HCl Liquid [Prozac Oral Solution -] 20 mg PO DAILY 04/28/18 Furosemide [Lasix -] 20 mg PO BID@0600,1400 04/28/18 Insulin Glargine,Hum.rec.anlog [Lantus] 16 unit SQ HS 04/28/18 L. Acidophilus/Pectin, Otoe [Acidophilus-Pectin Capsule] 1 each PO TID Loperamide HCl [Loperamide] 2 mg PO DAILY 04/28/18 Metformin HCl [Glucophage] 1,000 mg PO BID 04/28/18 Metoprolol Tartrate [Lopressor -] 75 mg PO TID 04/28/18 Sitagliptin Phosphate [Januvia] 50 mg PO BID 04/28/18 Tamsulosin HCl [Flomax] 0.4 mg PO DAILY 04/28/18 Family Disease History - Family Disease History Family Disease History: Heart Disease: Father ( [place] age 67), Mother ( CHF in her 70's) Review of Systems - Review of Systems Constitutional: denies: Chills, Fever Cardiovascular: denies: Chest Pain, Palpitations, Shortness of Breath Respiratory: denies: Cough, Hemoptysis, Orthopnea, PND, SOB, SOB on Exertion Gastrointestinal: reports: Constipation, Nausea. denies: Melena, Rectal Bleeding, Vomiting Genitourinary: denies: Dysuria, Hematuria Neurological: reports: Change in Speech, Unsteady Gait. denies: Dizziness, Headache, Seizure, Syncope Vital Signs: Vital Signs Temperature 98.5 F 04/29/18 06:32 Pulse Rate 77 04/29/18 06:32 Respiratory Rate 19 04/29/18 06:32 Blood Pressure 164/78 04/29/18 06:32 O2 Sat by Pulse Oximetry (%) 100 04/29/18 06:32 Eyes: Yes: PERRL HENT: Yes: Atraumatic Neck: Yes: Supple Respiratory: Yes: CTA Bilaterally Gastrointestinal: Yes: Normal Bowel Sounds, Soft. No: Tenderness Cardiovascular: Yes: Pulse Irregular JVD: No PMI: Non-Displaced Heart Sounds: Yes: S1, S2 Murmur: Yes: Systolic Murmur, Grade 1 Edema: No - Other Data Labs, Other Data: CBC, BMP 04/28/18 21:33 04/28/18 21:33 INR, PTT INR 1.11 (0.83-1.09) H 04/28/18 21:55 Troponin, BNP 04/28/18 04/29/18 23:34 02:27 Troponin I 4.45 H* 4.07 H* Laboratory Results - last 24 hr 04/28/18 04/28/18 04/28/18 21:33 21:33 21:35 WBC 10.0 RBC 4.46 Hgb 12.6 Hct 37.3 MCV 83.7 MCH 28.3 D MCHC 33.9 RDW 16.1 H Plt Count 190 D MPV 9.7 D Absolute Neuts (auto) 7.9 Neutrophils % 79.0 Lymphocytes % 12.0 Monocytes % 7.9 Eosinophils % 0.8 Basophils % 0.3 Nucleated RBC % 0 PT with INR INR Sodium 143 Potassium 4.0 Chloride 105 Carbon Dioxide 29 Anion Gap 9 BUN 18 Creatinine 1.1 Creat Clearance w eGFR 48.29 POC Glucometer Random Glucose 172 H Lactic Acid 1.4 Calcium 9.4 Total Bilirubin 0.8 Direct Bilirubin 0.3 H AST 129 H ALT 95 H Alkaline Phosphatase 184 H Troponin I Total Protein 6.9 Albumin 3.5 Total Amylase 25 Lipase 113 Urine Color Urine Appearance Urine pH Ur Specific [place] Urine Protein Urine Glucose (UA) Urine Ketones Urine Blood Urine Nitrite Urine Bilirubin Urine Urobilinogen Ur Leukocyte Esterase Urine WBC (Auto) Urine RBC (Auto) Ur Epithelial Cells Urine Bacteria Stool Occult Blood 04/28/18 04/28/18 04/28/18 21:55 22:46 23:34 WBC RBC Hgb Hct MCV MCH MCHC RDW Plt Count MPV Absolute Neuts (auto) Neutrophils % Lymphocytes % Monocytes % Eosinophils % Basophils % Nucleated RBC % PT with INR 13.10 H INR 1.11 H Sodium Potassium Chloride Carbon Dioxide Anion Gap BUN Creatinine Creat Clearance w eGFR POC Glucometer Random Glucose Lactic Acid Calcium Total Bilirubin Direct Bilirubin AST ALT Alkaline Phosphatase Troponin I 4.45 H* Total Protein Albumin Total Amylase Lipase Urine Color Urine Appearance Urine pH Ur Specific [place] Urine Protein Urine Glucose (UA) Urine Ketones Urine Blood Urine Nitrite Urine Bilirubin Urine Urobilinogen Ur Leukocyte Esterase Urine WBC (Auto) Urine RBC (Auto) Ur Epithelial Cells Urine Bacteria Stool Occult Blood Negative 04/29/18 04/29/18 04/29/18 02:27 02:57 11:30 WBC RBC Hgb Hct MCV MCH MCHC RDW Plt Count MPV Absolute Neuts (auto) Neutrophils % Lymphocytes % Monocytes % Eosinophils % Basophils % Nucleated RBC % PT with INR INR Sodium Potassium Chloride Carbon Dioxide Anion Gap BUN Creatinine Creat Clearance w eGFR POC Glucometer 192 Random Glucose Lactic Acid Calcium Total Bilirubin Direct Bilirubin AST ALT Alkaline Phosphatase Troponin I 4.07 H* Total Protein Albumin Total Amylase Lipase Urine Color Yellow Urine Appearance Slcloudy Urine pH 6.0 Ur Specific [place] 1.035 Urine Protein 1+ H Urine Glucose (UA) 3+ H Urine Ketones 1+ H Urine Blood Negative Urine Nitrite Negative Urine Bilirubin Negative Urine Urobilinogen Negative Ur Leukocyte Esterase Trace Urine WBC (Auto) 27 Urine RBC (Auto) 4 Ur Epithelial Cells Rare Urine Bacteria Few Stool Occult Blood Atrial fibrillation nonspecific ST-T abnormality Imaging - Results Cat Scan: Report Reviewed (Abdominal CT noted) EKG: Report Reviewed Problem List - Problems (1) Troponin level elevated Code(s): R74.8 - ABNORMAL LEVELS OF OTHER SERUM ENZYMES (2) Anemia Code(s): D64.9 - ANEMIA, UNSPECIFIED Qualifiers: Iron deficiency anemia type: chronic blood loss (3) CHF exacerbation Code(s): I50.9 - HEART FAILURE, UNSPECIFIED Qualifiers: Qualified Code(s): I50.9 - Heart failure, unspecified (4) CVA (cerebral vascular accident) Code(s): I63.9 - CEREBRAL INFARCTION, UNSPECIFIED (5) NSTEMI (non-ST elevated myocardial infarction) Code(s): I21.4 - NON-ST ELEVATION (NSTEMI) MYOCARDIAL INFARCTION (6) Atrial fibrillation Code(s): I48.91 - UNSPECIFIED ATRIAL FIBRILLATION Qualifiers: Atrial fibrillation type: permanent Qualified Code(s): I48.2 - Chronic atrial fibrillation (7) CAD (coronary artery disease) Code(s): I25.10 - ATHSCL HEART DISEASE OF [place] CORONARY ARTERY W/O ANG PCTRS Qualifiers: Coronary Disease-Associated Artery/Lesion type: [place] artery [place] vs. transplanted heart: [place] heart Associated angina: without angina Qualified Code(s): I25.10 - Atherosclerotic heart disease of [place] coronary artery without angina pectoris (8) COPD (chronic obstructive pulmonary disease) Code(s): J44.9 - CHRONIC OBSTRUCTIVE PULMONARY DISEASE, UNSPECIFIED (9) Diabetes mellitus Code(s): E11.9 - TYPE 2 DIABETES MELLITUS WITHOUT COMPLICATIONS Qualifiers: Diabetes mellitus type: type 2 Diabetes mellitus fci insulin use: without middle or intermediate school principal use Diabetes mellitus complication status: without complication Qualified Code(s): E11.9 - Type 2 diabetes mellitus without complications (10) HTN (hypertension) Code(s): I10 - ESSENTIAL (PRIMARY) HYPERTENSION Qualifiers: Hypertension type: essential hypertension Qualified Code(s): I10 - Essential (primary) hypertension (11) Hyperlipidemia Code(s): E78.5 - HYPERLIPIDEMIA, UNSPECIFIED Qualifiers: Hyperlipidemia type: pure hypercholesterolemia Qualified Code(s): E78.00 - Pure hypercholesterolemia, unspecified; E78.0 - Pure hypercholesterolemia (12) Pacemaker Code(s): Z95.0 - PRESENCE OF CARDIAC PACEMAKER Assessment/Plan 1. Abdominal pain and nausea, etiology to be determined 2. Elevated troponin suggests demand ischemia vs. NSTEMI 3. Permanent AF [id number] score of 9 4. CAD, angina 5. HTN 6. Hypercholesterolemia 7. DM 8. 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 ? Mitral valve repair 10. Sick sinus syndrome s/p PPM 11. COPD PLAN: 1. Agree with Eliquis 5 mg BID as tolerated 2. Continue Metoprolol. Add ACEI or ARB 3. Continue statin therapy 4. Diuretics and monitor renal function and electrolytes 5. Trend troponin to document peak 6. DM management 7. Echocardiography to assess LV/RV and valvular function 8. Nuclear MPI when clinically stable 9. Pacemaker needs to be interrogated as she has not done since last hospitalization last year. Further plans are to follow George Carlson MD
--- NOTE | 2018-04-29 10:48 | EKG ---
Test Reason : Blood Pressure : / mmHG Vent. Rate : 079 BPM Atrial Rate : 102 BPM P-R Int : 000 ms QRS Dur : 078 ms QT Int : 380 ms P-R-T Axes : 000 040 110 degrees QTc Int : 435 ms ATRIAL FIBRILLATION NONSPECIFIC ST AND T WAVE ABNORMALITY ABNORMAL ECG Confirmed by David Teixeira MD ([id number]) on 04/29/2018 10:47:57 AM Referred By: Confirmed By:David Teixeira MD
--- NOTE | 2018-04-29 10:48 | EKG ---
Test Reason : Blood Pressure : / mmHG Vent. Rate : 085 BPM Atrial Rate : 357 BPM P-R Int : 000 ms QRS Dur : 088 ms QT Int : 396 ms P-R-T Axes : 000 072 113 degrees QTc Int : 471 ms ATRIAL FIBRILLATION NONSPECIFIC ST AND T WAVE ABNORMALITY PROLONGED QT ABNORMAL ECG WHEN COMPARED WITH ECG OF 28-APR-2018 23:41, NO SIGNIFICANT CHANGE WAS FOUND Confirmed by David Teixeira MD ([id number]) on 04/29/2018 10:47:41 AM Referred By: Confirmed By:David Teixeira MD
[2018-04-29] MEDS: INSULIN SLIDING SCALE (NOVOLOG) 1 VIAL SQ SCH ×3 (11:35→22:00)
[2018-04-29] MEDS ORDERED: PANTOPRAZOLE 40 MG TABLET (FP) ONE (12:11)
[2018-04-29] MEDS ORDERED: APIXABAN 5 MG TABLET PO ONE (12:11)
[2018-04-29] MEDS ORDERED: TAMSULOSIN HCL 0.4 MG CAP ONE (12:12)
[2018-04-29] MEDS: TAMSULOSIN HCL 0.4 MG CAP PO SCH (12:33)
[2018-04-29] MEDS: APIXABAN 5 MG TABLET PO SCH ×2 (12:33→23:39)
[2018-04-29] MEDS: PANTOPRAZOLE 40 MG TABLET (FP) PO SCH (12:33)
[2018-04-29] MEDS: FLUoxetine HCL 20 MG CAPSULE (FP) PO SCH (12:34)
[2018-04-29 13:52] LABS: HEMATOCRIT 37.4 % (32.4-45.2); HEMOGLOBIN 12.3 GM/dL (10.7-15.3); MCH 27.4 pg (25.7-33.7); MCHC 32.9 g/dl (32.0-36.0); MEAN CELL VOLUME 83.4 fl (80-96); MEAN PLT VOLUME 9.7 fl (7.5-11.1); PLATELET COUNT 165 K/MM3 (134-434); RBC 4.48 M/mm3 (3.60-5.2); RDW 16.5 % (11.6-15.6); WHITE BLOOD COUNT 10.3 K/mm3 (4.0-10.0)
[2018-04-29 14:15] LABS: ALBUMIN 3.1 g/dl (3.4-5.0); ALK PHOS 164 U/L (45-117); ANION GAP 7 MMOL/L (8-16); BILIRUBIN,TOTAL 0.9 mg/dL (0.2-1); BLOOD UREA NITROGEN 13 mg/dL (7-18); CALCIUM 8.3 mg/dL (8.5-10.1); CHLORIDE 103 mmol/L (98-107); CO2 27 mmol/L (21-32); GLUCOSE,RANDOM 294 mg/dL (74-106); POTASSIUM 3.4 mmol/L (3.5-5.1); SGOT/AST 75 U/L (15-37); SGPT/ALT 70 U/L (13-61); SODIUM 137 mmol/L (136-145); TOT PROT 6.3 g/dl (6.4-8.2)
[2018-04-29] MEDS ORDERED: FUROSEMIDE 40 MG TABLET (FP) ONE (14:42)
[2018-04-29] MEDS: FUROSEMIDE 20 MG TABLET (FP) PO SCH (14:51)
[2018-04-29] MEDS: METOPROLOL TARTRATE 50 MG TABLET (FP) PO SCH ×2 (14:51→23:39)
[2018-04-29] MEDS: LACTOBACILLUS ACIDOPHILUS 1 TABLET PO SCH ×2 (14:51→23:39)
[2018-04-29 15:38] VITALS: BMI 24.9
[2018-04-29] MEDS: metFORMIN HCL 500 MG TABLET (FP) PO SCH ×2 (16:37→16:48)
[2018-04-29] MEDS: sitaGLIPtin PHOSPHATE 50 MG TABLET PO SCH (16:38)
[2018-04-29] MEDS: ATORVASTATIN CA 80 MG TABLET (FP) PO SCH (23:39)
[2018-04-29] MEDS: INSULIN (LEVEMIR) 100 UNITS/ML UNITS SQ SCH (23:42)
[2018-04-30 06:33] LABS: BASO % 0.4 % (0-2.0); EOS % 0.4 % (0-4.5); HEMOGLOBIN 11.8 GM/dL (10.7-15.3); LYMPH % 15.3 % (8-40); MCH 27.3 pg (25.7-33.7); MCHC 32.8 g/dl (32.0-36.0); MEAN CELL VOLUME 83.1 fl (80-96); NEUT % 74.9 % (42.8-82.8); PLATELET COUNT 159 K/MM3 (134-434); RBC 4.33 M/mm3 (3.60-5.2); WHITE BLOOD COUNT 11.5 K/mm3 (4.0-10.0)
[2018-04-30 07:06] LABS: ALK PHOS 159 U/L (45-117); ANION GAP 8 MMOL/L (8-16); BLOOD UREA NITROGEN 13 mg/dL (7-18); CALCIUM 8.5 mg/dL (8.5-10.1); CHLORIDE 105 mmol/L (98-107); CHOLESTEROL 119 mg/dL (50-200); CO2 28 mmol/L (21-32); CREATININE 0.9 mg/dL (0.55-1.3); GLUCOSE,RANDOM 194 mg/dL (74-106); HDL CHOLESTEROL 41 mg/dL (40-60); POTASSIUM 3.4 mmol/L (3.5-5.1); SGOT/AST 55 U/L (15-37); SGPT/ALT 59 U/L (13-61); SODIUM 141 mmol/L (136-145); TOT PROT 6.2 g/dl (6.4-8.2); TRIGLYCERIDES 80 mg/dL (0-150)
[2018-04-30] MEDS: sitaGLIPtin PHOSPHATE 50 MG TABLET PO SCH ×2 (07:27→18:09)
[2018-04-30] MEDS: FUROSEMIDE 20 MG TABLET (FP) PO SCH ×2 (07:27→15:54)
[2018-04-30] MEDS: LACTOBACILLUS ACIDOPHILUS 1 TABLET PO SCH ×3 (07:28→21:58)
--- NOTE | 2018-04-30 09:32 | PN ---
Progress Note, Physician History of Present Illness: LUQ abd pain and nausea resolving, denies chest pain or dyspnea. - Current Medication List Current Medications: Active Medications Apixaban (Eliquis -) 5 mg PO BID [facility] Last Admin: 04/29/18 23:39 Dose: 5 mg Atorvastatin Calcium (Lipitor -) 80 mg PO [facility] Last Admin: 04/29/18 23:39 Dose: 80 mg Ferrous Sulfate (Feosol -) 325 mg PO DAILY@0800 [facility] Fluoxetine HCl (Prozac -) 20 mg PO DAILY [facility] Last Admin: 04/29/18 12:34 Dose: 20 mg Furosemide (Lasix -) 20 mg PO BID@0600,1400 [facility] Last Admin: 04/30/18 07:27 Dose: 20 mg Insulin Aspart (Novolog Vial Sliding Scale -) 1 vial SQ [facility]; Protocol Last Admin: 04/29/18 22:00 Dose: 4 units Insulin Detemir (Levemir Vial) 16 units SQ [facility] Last Admin: 04/29/18 23:42 Dose: 16 units Lactobacillus Acidophilus (Bacid -) 1 tab PO TID [facility] Last Admin: 04/30/18 07:28 Dose: 1 tab Metformin HCl (Glucophage -) 1,000 mg PO BIDAC [facility] Last Admin: 04/29/18 16:48 Dose: Not Given Metoprolol Tartrate (Lopressor -) 75 mg PO TID [facility] Last Admin: 04/29/18 23:39 Dose: 75 mg Pantoprazole Sodium (Protonix -) 40 mg PO DAILY [facility] Last Admin: 04/29/18 12:33 Dose: 40 mg Sitagliptin Phosphate (Januvia -) 50 mg PO BIDAC [facility] Last Admin: 04/30/18 07:27 Dose: 50 mg Tamsulosin HCl (Flomax -) 0.4 mg PO DAILY@0830 [facility] Last Admin: 04/29/18 12:33 Dose: 0.4 mg - Objective Vital Signs: Vital Signs Temperature 98.2 F 04/30/18 01:46 Pulse Rate 88 04/30/18 01:46 Respiratory Rate 18 04/30/18 01:46 Blood Pressure 152/77 04/30/18 01:46 O2 Sat by Pulse Oximetry (%) 99 04/29/18 15:42 Constitutional: Yes: No Distress, Calm, Thin Neck: Yes: Supple Cardiovascular: Yes: Regular Rate and Rhythm Respiratory: Yes: Regular, Diminished, On Nasal O2 Gastrointestinal: Yes: Normal Bowel Sounds, Soft Edema: No Labs: CBC, BMP 04/30/18 05:30 04/30/18 05:30 INR, PTT INR 1.11 (0.83-1.09) H 04/28/18 21:55 - ....Imaging Cat Scan: Report Reviewed (Abd/pelvic CT: Multiple splenic infarcts acute/ subacute) Problem List - Problems (1) Splenic infarct Code(s): D73.5 - INFARCTION OF SPLEEN (2) NSTEMI (non-ST elevated myocardial infarction) Code(s): I21.4 - NON-ST ELEVATION (NSTEMI) MYOCARDIAL INFARCTION (3) Anemia Code(s): D64.9 - ANEMIA, UNSPECIFIED Qualifiers: Iron deficiency anemia type: chronic blood loss (4) CVA (cerebral vascular accident) Code(s): I63.9 - CEREBRAL INFARCTION, UNSPECIFIED Qualifiers: CVA mechanism: embolism (5) Atrial fibrillation Code(s): I48.91 - UNSPECIFIED ATRIAL FIBRILLATION Qualifiers: Atrial fibrillation type: permanent Qualified Code(s): I48.2 - Chronic atrial fibrillation (6) CAD (coronary artery disease) Code(s): I25.10 - ATHSCL HEART DISEASE OF [place] CORONARY ARTERY W/O ANG PCTRS Qualifiers: Coronary Disease-Associated Artery/Lesion type: [place] artery [place] vs. transplanted heart: [place] heart Associated angina: without angina Qualified Code(s): I25.10 - Atherosclerotic heart disease of [place] coronary artery without angina pectoris (7) H/O mitral valve replacement Code(s): Z95.2 - PRESENCE OF PROSTHETIC HEART VALVE (8) HTN (hypertension) Code(s): I10 - ESSENTIAL (PRIMARY) HYPERTENSION Qualifiers: Hypertension type: essential hypertension Qualified Code(s): I10 - Essential (primary) hypertension (9) Hyperlipidemia Code(s): E78.5 - HYPERLIPIDEMIA, UNSPECIFIED Qualifiers: Hyperlipidemia type: pure hypercholesterolemia Qualified Code(s): E78.00 - Pure hypercholesterolemia, unspecified; E78.0 - Pure hypercholesterolemia (10) Pacemaker Code(s): Z95.0 - PRESENCE OF CARDIAC PACEMAKER (11) Sick sinus syndrome Code(s): I49.5 - SICK SINUS SYNDROME (12) Diastolic dysfunction Code(s): I51.89 - OTHER ILL-DEFINED HEART DISEASES Assessment/Plan 04/30/2018 Echo: Normal LV size and fxn, severe TR RVSP 50-60 mmHg, mild MR 1. Abdominal pain and nausea, -> splenic infarcts, suspect non-compliance instead of Eliquis failure 2. CAD - NSTEMI 3. Permanent AF [id number] score of 9 4. Anemia likely SB vascular ectasias 5. HTN 6. Hypercholesterolemia 7. DM 8. 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 Mitral valve ring repair 2009 10. Sick sinus syndrome s/p PPM 11. COPD 12. CONOR resolved 13. Diastolic dysfunction PLAN: 1. 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 Oral diuretics Lasix 20 bid, and monitor renal function and electrolytes, replete K 3. Troponins downtrending 4. Nuclear MPI when clinically stable 5. Pacemaker needs to be interrogated as she has not done since last hospitalization last year. 6. Sees Dread Butts, consider [facility] as outpatient if Eliquis compliance is suboptimal given recurrent embolic events
[2018-04-30] MEDS: APIXABAN 5 MG TABLET PO SCH ×2 (09:43→21:58)
[2018-04-30] MEDS: PANTOPRAZOLE 40 MG TABLET (FP) PO SCH (09:43)
[2018-04-30] MEDS: FLUoxetine HCL 20 MG CAPSULE (FP) PO SCH (09:43)
[2018-04-30] MEDS: METOPROLOL TARTRATE 50 MG TABLET (FP) PO SCH ×3 (09:43→21:58)
[2018-04-30] MEDS: TAMSULOSIN HCL 0.4 MG CAP PO SCH (09:44)
[2018-04-30] MEDS: FERROUS SO4 325 MG TABLET (FP) PO SCH (09:44)
--- NOTE | 2018-04-30 10:56 | ECHO ---
Name: KEITH HERNANDEZ Exam:Adult Echocardiogram Study Date: 04/30/2018 07:33 AM Age: 78 yrs Reason For Study: NSTEMI Height: 64 in Weight: 145 lb BSA: 1.7 m2 MMode/2D Measurements & Calculations IVSd: 0.91 cm Ao root diam: 2.4 cm LVIDd: 3.9 cm LA dimension: 3.5 cm LVIDs: 2.3 cm LVPWd: 0.94 cm EDV(Teich): 66.0 ml LAV (MOD-bp): 63.2 ml ESV(Teich): 19.0 ml Doppler Measurements & Calculations MV E max otis: 201.0 cm/sec MR max otis: 459.1 cm/sec MV dec time: 0.19 sec MR max P.3 mmHg TR max otis: 307.9 cm/sec Med Peak E' Otis: 8.1 cm/sec TR max P.2 mmHg Med E/e': 25.0 Lat Peak E' Otis: 4.7 cm/sec Lat E/e': 43.0 PI Vmax: 126.2 cm/sec Procedure A two-dimensional transthoracic echocardiogram with color flow and Doppler was performed. Left Ventricle The left ventricular size, thickness and function are normal. The left ventricular ejection fraction is normal. Regional wall motion abnormalities cannot be excluded due to limited visualization. Right Ventricle The right ventricle is normal in size and function. Atria Normal left and right atrial size and function. Mitral Valve There is mild mitral valve thickening. There is no mitral valve stenosis. There is mild mitral regurg itation. Tricuspid Valve There is mild tricuspid valve thickening. There is no tricuspid stenosis. There is severe tricuspid regurgitation. Right ventricular systolic pressure is elevated at 50-60mmHg. Aortic Valve The aortic valve is not well visualized. No hemodynamically significant valvular aortic stenosis. No aortic regurgitation is present. Pulmonic Valve The pulmonic valve is not well visualized. Great Vessels The aortic root is normal size. Pericardium/Pleura There is no pericardial effusion. Interpretation Summary The left ventricular size, thickness and function are normal The left ventricular ejection fraction is normal. There is severe tricuspid regurgitation. Right ventricular systolic pressure is elevated at 50-60mmHg. There is mild mitral regurgitation. Regional wall motion abnormalities cannot be excluded due to limited visualization. MD Brendan Wan 04/30/2018 10:55 AM
[2018-04-30] MEDS ORDERED: LOSARTAN POTASSIUM 25 MG TABLET PO SCH (12:00)
[2018-04-30] MEDS ORDERED: POTASSIUM CHLORIDE ORAL LIQUID 20 MEQ/15 ML PO ONE (12:15)
[2018-04-30] MEDS: INSULIN SLIDING SCALE (NOVOLOG) 1 VIAL SQ SCH ×3 (12:47→21:58)
[2018-04-30] MEDS: metFORMIN HCL 500 MG TABLET (FP) PO SCH ×2 (13:09→17:58)
[2018-04-30] MEDS: LISINOPRIL 10 MG TABLET (FP) PO SCH (13:18)
--- NOTE | 2018-04-30 16:21 | PN ---
Progress Note, Physician History of Present Illness: Pt w/o CP, palpitations, SOB, Dizziness, abd pain (now) - Current Medication List Current Medications: Active Medications Apixaban (Eliquis -) 5 mg PO BID [facility] Last Admin: 04/30/18 09:43 Dose: 5 mg Atorvastatin Calcium (Lipitor -) 80 mg PO HS [facility] Last Admin: 04/29/18 23:39 Dose: 80 mg Ferrous Sulfate (Feosol -) 325 mg PO DAILY@0800 [facility] Last Admin: 04/30/18 09:44 Dose: 325 mg Fluoxetine HCl (Prozac -) 20 mg PO DAILY [facility] Last Admin: 04/30/18 09:43 Dose: 20 mg Furosemide (Lasix -) 20 mg PO BID@0600,1400 [facility] Last Admin: 04/30/18 15:54 Dose: 20 mg Insulin Aspart (Novolog Vial Sliding Scale -) 1 vial SQ [facility]; Protocol Last Admin: 04/30/18 12:47 Dose: Not Given Insulin Detemir (Levemir Vial) 16 units SQ [facility] Last Admin: 04/29/18 23:42 Dose: 16 units Lactobacillus Acidophilus (Bacid -) 1 tab PO TID [facility] Last Admin: 04/30/18 15:53 Dose: 1 tab Lisinopril (Prinivil) 10 mg PO DAILY [facility] Last Admin: 04/30/18 13:18 Dose: 10 mg Metformin HCl (Glucophage -) 1,000 mg PO BIDAC [facility] Last Admin: 04/30/18 13:09 Dose: Not Given Metoprolol Tartrate (Lopressor -) 75 mg PO TID [facility] Last Admin: 04/30/18 13:17 Dose: 75 mg Pantoprazole Sodium (Protonix -) 40 mg PO DAILY [facility] Last Admin: 04/30/18 09:43 Dose: 40 mg Sitagliptin Phosphate (Januvia -) 50 mg PO BIDAC [facility] Last Admin: 04/30/18 07:27 Dose: 50 mg Tamsulosin HCl (Flomax -) 0.4 mg PO DAILY@0830 [facility] Last Admin: 04/30/18 09:44 Dose: 0.4 mg - Objective Vital Signs: Vital Signs Temperature 99.1 F 04/30/18 14:00 Pulse Rate 103 H 04/30/18 14:00 Respiratory Rate 20 04/30/18 14:00 Blood Pressure 133/71 04/30/18 14:00 O2 Sat by Pulse Oximetry (%) 100 04/30/18 09:00 Constitutional: Yes: No Distress, Calm Cardiovascular: Yes: Pulse Irregular, S1, S2 Respiratory: Yes: Regular, CTA Bilaterally. No: Rales Gastrointestinal: Yes: Normal Bowel Sounds, Soft. No: Tenderness Edema: No Neurological: Yes: Alert, Oriented, Aphasia (at baseline) Labs: CBC, BMP 04/30/18 05:30 04/30/18 05:30 INR, PTT INR 1.11 (0.83-1.09) H 04/28/18 21:55 Problem List - Problems (1) NSTEMI (non-ST elevated myocardial infarction) Code(s): I21.4 - NON-ST ELEVATION (NSTEMI) MYOCARDIAL INFARCTION (2) UTI (urinary tract infection) Code(s): N39.0 - URINARY TRACT INFECTION, SITE NOT SPECIFIED (3) Abdominal pain Code(s): R10.9 - UNSPECIFIED ABDOMINAL PAIN (4) CVA (cerebral vascular accident) Code(s): I63.9 - CEREBRAL INFARCTION, UNSPECIFIED Qualifiers: CVA mechanism: embolism (5) Diabetes mellitus Code(s): E11.9 - TYPE 2 DIABETES MELLITUS WITHOUT COMPLICATIONS Qualifiers: Diabetes mellitus type: type 2 Diabetes mellitus retirement insulin use: without retirement use Diabetes mellitus complication status: without complication Qualified Code(s): E11.9 - Type 2 diabetes mellitus without complications (6) HTN (hypertension) Code(s): I10 - ESSENTIAL (PRIMARY) HYPERTENSION Qualifiers: Hypertension type: essential hypertension Qualified Code(s): I10 - Essential (primary) hypertension (7) Hyperlipidemia Code(s): E78.5 - HYPERLIPIDEMIA, UNSPECIFIED Qualifiers: Hyperlipidemia type: pure hypercholesterolemia Qualified Code(s): E78.00 - Pure hypercholesterolemia, unspecified; E78.0 - Pure hypercholesterolemia (8) Pacemaker Code(s): Z95.0 - PRESENCE OF CARDIAC PACEMAKER (9) CAD (coronary artery disease) Code(s): I25.10 - ATHSCL HEART DISEASE OF [place] CORONARY ARTERY W/O ANG PCTRS Qualifiers: Coronary Disease-Associated Artery/Lesion type: [place] artery [place] vs. transplanted heart: [place] heart Associated angina: without angina Qualified Code(s): I25.10 - Atherosclerotic heart disease of [place] coronary artery without angina pectoris (10) COPD (chronic obstructive pulmonary disease) Code(s): J44.9 - CHRONIC OBSTRUCTIVE PULMONARY DISEASE, UNSPECIFIED (11) Abnormal LFTs Code(s): R94.5 - ABNORMAL RESULTS OF LIVER FUNCTION STUDIES Assessment/Plan Admit to monitor bed. Start abtx replete K Serial CE -trending down Cardio Consult is appreciated. Cont AC, ASA, BB, Statin. Pt's condition and labs and abd/pelvis CT scan was d/w pt and pt's and pt's dg (at bedside); all questions were answered. AM labs
[2018-04-30] MEDS ORDERED: POTASSIUM CHLORIDE TABS 20 MEQ TABLET.ER (FP) PO ONE (16:22)
[2018-04-30] MEDS ORDERED: DEXTROSE 5%-WATER - 50 ML IVPB ONE (17:59)
[2018-04-30] MEDS ORDERED: cefTRIAXone SODIUM 1 GM VIAL ONE (17:59)
[2018-04-30] MEDS: CEFTRIAXONE 1 GM in DEXTROSE 5%-WATER - 50 ML IVPB SCH (18:09)
[2018-04-30] MEDS: ATORVASTATIN CA 80 MG TABLET (FP) PO SCH (21:58)
[2018-04-30] MEDS: INSULIN (LEVEMIR) 100 UNITS/ML UNITS SQ SCH (21:59)
[2018-05-01] MEDS: FUROSEMIDE 20 MG TABLET (FP) PO SCH ×2 (06:31→14:54)
[2018-05-01] MEDS: INSULIN SLIDING SCALE (NOVOLOG) 1 VIAL SQ SCH ×3 (06:31→21:57)
[2018-05-01] MEDS: METOPROLOL TARTRATE 50 MG TABLET (FP) PO SCH ×3 (06:31→21:58)
[2018-05-01] MEDS: LACTOBACILLUS ACIDOPHILUS 1 TABLET PO SCH ×3 (06:31→21:58)
[2018-05-01 06:32] LABS: HEMATOCRIT 32.4 % (32.4-45.2); HEMOGLOBIN 10.9 GM/dL (10.7-15.3); MCH 27.7 pg (25.7-33.7); MCHC 33.7 g/dl (32.0-36.0); MEAN CELL VOLUME 82.2 fl (80-96); MEAN PLT VOLUME 9.9 fl (7.5-11.1); PLATELET COUNT 141 K/MM3 (134-434); RBC 3.95 M/mm3 (3.60-5.2); RDW 15.9 % (11.6-15.6); WHITE BLOOD COUNT 9.6 K/mm3 (4.0-10.0)
[2018-05-01] MEDS: metFORMIN HCL 500 MG TABLET (FP) PO SCH ×2 (06:32→17:15)
[2018-05-01] MEDS: sitaGLIPtin PHOSPHATE 50 MG TABLET PO SCH ×2 (06:33→17:15)
[2018-05-01 07:28] LABS: ALBUMIN 2.6 g/dl (3.4-5.0); ALK PHOS 145 U/L (45-117); ANION GAP 6 MMOL/L (8-16); BILIRUBIN,TOTAL 0.8 mg/dL (0.2-1); BLOOD UREA NITROGEN 14 mg/dL (7-18); CHLORIDE 106 mmol/L (98-107); CO2 29 mmol/L (21-32); CREATININE 0.9 mg/dL (0.55-1.3); GLUCOSE,RANDOM 58 mg/dL (74-106); MAGNESIUM 2.2 mg/dL (1.8-2.4); POTASSIUM 3.4 mmol/L (3.5-5.1); SGOT/AST 62 U/L (15-37); SGPT/ALT 63 U/L (13-61); SODIUM 140 mmol/L (136-145); TOT PROT 5.5 g/dl (6.4-8.2)
--- NOTE | 2018-05-01 09:00 | PN ---
Progress Note, Physician History of Present Illness: LUQ abd pain and nausea resolved and tolerating diet, denies chest pain or dyspnea. Sitting in chair. - Current Medication List Current Medications: Active Medications Apixaban (Eliquis -) 5 mg PO BID [facility] Last Admin: 04/30/18 21:58 Dose: 5 mg Atorvastatin Calcium (Lipitor -) 80 mg PO HS [facility] Last Admin: 04/30/18 21:58 Dose: 80 mg Ferrous Sulfate (Feosol -) 325 mg PO DAILY@0800 [facility] Last Admin: 04/30/18 09:44 Dose: 325 mg Fluoxetine HCl (Prozac -) 20 mg PO DAILY [facility] Last Admin: 04/30/18 09:43 Dose: 20 mg Furosemide (Lasix -) 20 mg PO BID@0600,1400 [facility] Last Admin: 05/01/18 06:31 Dose: 20 mg Ceftriaxone Sodium 1 gm/ (Dextrose) 50 mls @ 100 mls/hr IVPB DAILY [facility] Last Admin: 04/30/18 18:09 Dose: 100 mls/hr Insulin Aspart (Novolog Vial Sliding Scale -) 1 vial SQ [facility]; Protocol Last Admin: 05/01/18 06:31 Dose: Not Given Insulin Detemir (Levemir Vial) 16 units SQ [facility] Last Admin: 04/30/18 21:59 Dose: 16 units Lactobacillus Acidophilus (Bacid -) 1 tab PO TID [facility] Last Admin: 05/01/18 06:31 Dose: 1 tab Lisinopril (Prinivil) 10 mg PO DAILY [facility] Last Admin: 04/30/18 13:18 Dose: 10 mg Metformin HCl (Glucophage -) 1,000 mg PO BIDAC [facility] Last Admin: 05/01/18 06:32 Dose: Not Given Metoprolol Tartrate (Lopressor -) 75 mg PO TID [facility] Last Admin: 05/01/18 06:31 Dose: 75 mg Pantoprazole Sodium (Protonix -) 40 mg PO DAILY [facility] Last Admin: 04/30/18 09:43 Dose: 40 mg Sitagliptin Phosphate (Januvia -) 50 mg PO BIDAC [facility] Last Admin: 05/01/18 06:33 Dose: Not Given Tamsulosin HCl (Flomax -) 0.4 mg PO DAILY@0830 [facility] Last Admin: 04/30/18 09:44 Dose: 0.4 mg - Objective Vital Signs: Vital Signs Temperature 97.8 F 05/01/18 06:35 Pulse Rate 92 H 05/01/18 06:35 Respiratory Rate 18 05/01/18 06:35 Blood Pressure 137/82 05/01/18 06:35 O2 Sat by Pulse Oximetry (%) 98 04/30/18 21:00 Constitutional: Yes: No Distress, Calm Neck: Yes: Supple Cardiovascular: Yes: Pulse Irregular, Murmur (2/6 SM) Respiratory: Yes: Regular, Diminished Gastrointestinal: Yes: Normal Bowel Sounds, Soft, Abdomen, Obese Edema: No Neurological: Yes: Pre-Existing Deficit ...Motor Strength: RUE Labs: CBC, BMP 05/01/18 05:30 05/01/18 05:30 INR, PTT INR 1.11 (0.83-1.09) H 04/28/18 21:55 Problem List - Problems (1) Splenic infarct Code(s): D73.5 - INFARCTION OF SPLEEN (2) NSTEMI (non-ST elevated myocardial infarction) Code(s): I21.4 - NON-ST ELEVATION (NSTEMI) MYOCARDIAL INFARCTION (3) Anemia Code(s): D64.9 - ANEMIA, UNSPECIFIED Qualifiers: Iron deficiency anemia type: chronic blood loss (4) CVA (cerebral vascular accident) Code(s): I63.9 - CEREBRAL INFARCTION, UNSPECIFIED Qualifiers: CVA mechanism: embolism (5) Atrial fibrillation Code(s): I48.91 - UNSPECIFIED ATRIAL FIBRILLATION Qualifiers: Atrial fibrillation type: permanent Qualified Code(s): I48.2 - Chronic atrial fibrillation (6) CAD (coronary artery disease) Code(s): I25.10 - ATHSCL HEART DISEASE OF [place] CORONARY ARTERY W/O ANG PCTRS Qualifiers: Coronary Disease-Associated Artery/Lesion type: [place] artery [place] vs. transplanted heart: [place] heart Associated angina: without angina Qualified Code(s): I25.10 - Atherosclerotic heart disease of [place] coronary artery without angina pectoris (7) H/O mitral valve replacement Code(s): Z95.2 - PRESENCE OF PROSTHETIC HEART VALVE (8) HTN (hypertension) Code(s): I10 - ESSENTIAL (PRIMARY) HYPERTENSION Qualifiers: Hypertension type: essential hypertension Qualified Code(s): I10 - Essential (primary) hypertension (9) Hyperlipidemia Code(s): E78.5 - HYPERLIPIDEMIA, UNSPECIFIED Qualifiers: Hyperlipidemia type: pure hypercholesterolemia Qualified Code(s): E78.00 - Pure hypercholesterolemia, unspecified; E78.0 - Pure hypercholesterolemia (10) Pacemaker Code(s): Z95.0 - PRESENCE OF CARDIAC PACEMAKER (11) Sick sinus syndrome Code(s): I49.5 - SICK SINUS SYNDROME (12) Diastolic dysfunction Code(s): I51.89 - OTHER ILL-DEFINED HEART DISEASES Assessment/Plan 04/30/2018 Echo: Normal LV size and fxn, severe TR RVSP 50-60 mmHg, mild MR 1. Abdominal pain and nausea, -> splenic infarcts, suspect non-compliance instead of Eliquis failure 2. CAD - NSTEMI 3. Permanent AF [id number] score of 9 4. Anemia likely SB vascular ectasias 5. HTN 6. Hypercholesterolemia 7. DM 8. 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 Mitral valve ring repair 2009 10. Sick sinus syndrome s/p PPM 11. COPD 12. CONOR resolved 13. Diastolic dysfunction PLAN: 1. 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 Oral diuretics Lasix 20 bid, and monitor renal function and electrolytes, replete K 3. Troponins downtrending 4. Nuclear MPI when clinically stable 5. Pacemaker needs to be interrogated as she has not done since last hospitalization last year. 6. Sees [facility], consider [facility] as outpatient if Eliquis compliance is suboptimal given recurrent embolic events 7. PT->SNF
[2018-05-01] MEDS ORDERED: PT OWN MED DRAWER 7, Y5N ONE (09:22)
[2018-05-01] MEDS ORDERED: DEXTROSE 5%-WATER - 50 ML IVPB ONE (09:23)
[2018-05-01] MEDS ORDERED: cefTRIAXone SODIUM 1 GM VIAL ONE (09:23)
[2018-05-01] MEDS: TAMSULOSIN HCL 0.4 MG CAP PO SCH (10:14)
[2018-05-01] MEDS: FLUoxetine HCL 20 MG CAPSULE (FP) PO SCH (10:14)
[2018-05-01] MEDS: PANTOPRAZOLE 40 MG TABLET (FP) PO SCH (10:14)
[2018-05-01] MEDS: LISINOPRIL 10 MG TABLET (FP) PO SCH (10:14)
[2018-05-01] MEDS: CEFTRIAXONE 1 GM in DEXTROSE 5%-WATER - 50 ML IVPB SCH (10:14)
[2018-05-01] MEDS: FERROUS SO4 325 MG TABLET (FP) PO SCH (10:14)
[2018-05-01] MEDS: APIXABAN 5 MG TABLET PO SCH ×2 (10:14→21:58)
[2018-05-01] MEDS ORDERED: POTASSIUM CHLORIDE TABS 20 MEQ TABLET.ER (FP) PO ONE (16:12)
--- NOTE | 2018-05-01 16:12 | PN ---
Progress Note, Physician History of Present Illness: Pt w/o CP, palpitations, SOB, Dizziness, abd pain. - Current Medication List Current Medications: Active Medications Apixaban (Eliquis -) 5 mg PO BID [facility] Last Admin: 05/01/18 10:14 Dose: 5 mg Atorvastatin Calcium (Lipitor -) 80 mg PO HS [facility] Last Admin: 04/30/18 21:58 Dose: 80 mg Ferrous Sulfate (Feosol -) 325 mg PO DAILY@0800 [facility] Last Admin: 05/01/18 10:14 Dose: 325 mg Fluoxetine HCl (Prozac -) 20 mg PO DAILY [facility] Last Admin: 05/01/18 10:14 Dose: 20 mg Furosemide (Lasix -) 20 mg PO BID@0600,1400 [facility] Last Admin: 05/01/18 14:54 Dose: 20 mg Ceftriaxone Sodium 1 gm/ (Dextrose) 50 mls @ 100 mls/hr IVPB DAILY [facility] Last Admin: 05/01/18 10:14 Dose: 100 mls/hr Insulin Aspart (Novolog Vial Sliding Scale -) 1 vial SQ [facility]; Protocol Last Admin: 05/01/18 12:09 Dose: Not Given Insulin Detemir (Levemir Vial) 16 units SQ [facility] Last Admin: 04/30/18 21:59 Dose: 16 units Lactobacillus Acidophilus (Bacid -) 1 tab PO TID [facility] Last Admin: 05/01/18 14:56 Dose: 1 tab Lisinopril (Prinivil) 10 mg PO DAILY [facility] Last Admin: 05/01/18 10:14 Dose: 10 mg Metformin HCl (Glucophage -) 1,000 mg PO BIDAC [facility] Last Admin: 05/01/18 06:32 Dose: Not Given Metoprolol Tartrate (Lopressor -) 75 mg PO TID [facility] Last Admin: 05/01/18 14:54 Dose: 75 mg Pantoprazole Sodium (Protonix -) 40 mg PO DAILY [facility] Last Admin: 05/01/18 10:14 Dose: 40 mg Sitagliptin Phosphate (Januvia -) 50 mg PO BIDAC [facility] Last Admin: 05/01/18 06:33 Dose: Not Given Tamsulosin HCl (Flomax -) 0.4 mg PO DAILY@0830 [facility] Last Admin: 05/01/18 10:14 Dose: 0.4 mg - Objective Vital Signs: Vital Signs Temperature 98.6 F 0228/19 14:00 Pulse Rate 106 H 05/01/18 14:00 Respiratory Rate 20 05/01/18 14:00 Blood Pressure 121/73 05/01/18 14:00 O2 Sat by Pulse Oximetry (%) 98 05/01/18 09:00 Constitutional: Yes: No Distress, Calm Cardiovascular: Yes: Pulse Irregular, S1, S2 Respiratory: Yes: Regular, CTA Bilaterally. No: Rales Gastrointestinal: Yes: Normal Bowel Sounds, Soft. No: Tenderness Edema: No Neurological: Yes: Alert, Oriented Labs: CBC, BMP 05/01/18 05:30 05/01/18 05:30 INR, PTT INR 1.11 (0.83-1.09) H 04/28/18 21:55 Problem List - Problems (1) NSTEMI (non-ST elevated myocardial infarction) Code(s): I21.4 - NON-ST ELEVATION (NSTEMI) MYOCARDIAL INFARCTION (2) UTI (urinary tract infection) Code(s): N39.0 - URINARY TRACT INFECTION, SITE NOT SPECIFIED (3) Abdominal pain Code(s): R10.9 - UNSPECIFIED ABDOMINAL PAIN (4) CVA (cerebral vascular accident) Code(s): I63.9 - CEREBRAL INFARCTION, UNSPECIFIED Qualifiers: CVA mechanism: embolism (5) Diabetes mellitus Code(s): E11.9 - TYPE 2 DIABETES MELLITUS WITHOUT COMPLICATIONS Qualifiers: Diabetes mellitus type: type 2 Diabetes mellitus long term care pharmacist insulin use: without senior care use Diabetes mellitus complication status: without complication Qualified Code(s): E11.9 - Type 2 diabetes mellitus without complications (6) HTN (hypertension) Code(s): I10 - ESSENTIAL (PRIMARY) HYPERTENSION Qualifiers: Hypertension type: essential hypertension Qualified Code(s): I10 - Essential (primary) hypertension (7) Hyperlipidemia Code(s): E78.5 - HYPERLIPIDEMIA, UNSPECIFIED Qualifiers: Hyperlipidemia type: pure hypercholesterolemia Qualified Code(s): E78.00 - Pure hypercholesterolemia, unspecified; E78.0 - Pure hypercholesterolemia (8) Pacemaker Code(s): Z95.0 - PRESENCE OF CARDIAC PACEMAKER (9) CAD (coronary artery disease) Code(s): I25.10 - ATHSCL HEART DISEASE OF [place] CORONARY ARTERY W/O ANG PCTRS Qualifiers: Coronary Disease-Associated Artery/Lesion type: [place] artery [place] vs. transplanted heart: [place] heart Associated angina: without angina Qualified Code(s): I25.10 - Atherosclerotic heart disease of [place] coronary artery without angina pectoris (10) COPD (chronic obstructive pulmonary disease) Code(s): J44.9 - CHRONIC OBSTRUCTIVE PULMONARY DISEASE, UNSPECIFIED (11) Abnormal LFTs Code(s): R94.5 - ABNORMAL RESULTS OF LIVER FUNCTION STUDIES (12) Cyst of left kidney Code(s): N28.1 - CYST OF KIDNEY, ACQUIRED (13) Splenic infarct Code(s): D73.5 - INFARCTION OF SPLEEN (14) Hepatomegaly Code(s): R16.0 - HEPATOMEGALY, NOT ELSEWHERE CLASSIFIED (15) Sigmoid diverticulosis Code(s): K57.30 - DVRTCLOS OF LG INT W/O PERFORATION OR ABSCESS W/O BLEEDING Assessment/Plan Admitted to monitor bed. Started on IV abtx Replete K Serial CE -trending down Cardio Consult is appreciated. Case was d/w Dr. Gaines and pt is ready for DC with outpatient f/u. Cont AC, ASA, BB, Statin. Pt's condition and labs and abd/pelvis CT scan was d/w again with her and recommendation for GI and followup were made. Pt's states that he doesn't know how to give patient Insuline ( in PM) and cannot manage all her meds. Pt's is the pt's home child care provider. DC home seems unsafe for today; to teach pt's how to give Insuline SQ to pt and to go over her medications. To DC pt home in AM if seems safe; otherwise consider SFN. Pt's condition and plan was discussed in details with her nurse and CW, few times. Time spent for managing pt's care: over 50 minutes.
[2018-05-01] MEDS: INSULIN (LEVEMIR) 100 UNITS/ML UNITS SQ SCH (21:58)
[2018-05-01] MEDS: ATORVASTATIN CA 80 MG TABLET (FP) PO SCH (21:58)
--- NOTE | 2018-05-01 22:19 | DS ---
Physical Examination Vital Signs: Vital Signs Temperature 98.2 F 05/01/18 18:00 Pulse Rate 90 05/01/18 18:00 Respiratory Rate 18 05/01/18 18:00 Blood Pressure 134/72 05/01/18 18:00 O2 Sat by Pulse Oximetry (%) 98 05/01/18 09:00 Findings/Remarks: See today progress note for HPI, PE, Plan Labs: CBC, BMP 05/01/18 05:30 05/01/18 05:30 Discharge Summary Reason For Visit: ELEVATED TROPONIN I LEVEL Current Active Problems Abdominal pain (Acute) Abnormal LFTs (Acute) Diastolic dysfunction (Acute) NSTEMI (non-ST elevated myocardial infarction) (Acute) Sick sinus syndrome (Acute) Splenic infarct (Acute) Troponin level elevated (Acute) UTI (urinary tract infection) (Acute) Procedures: Principal: Abdomnial/ Pelvis CT scan Hospital Course: Pt came to ER c/o abd pain, found to have elevated Trop I and considered to have NSTEMI and was admitted to Telemetry. Pt was seen by Cardiology ( Dr Carlson/ E[place]). Pt with significant Telemetry event/ arrhythmia, Trop I are trending down , pt is clinically improving. Pt with elevated LFT's at admission, trending down during hospitalization. Pt was noticed to have UTI and was started on IV abtx. Pt had an abd/ pelvis CT scan at admission, significant for splenic infarcts, left renal cysts vs nodule, cholelithiasis, hepatomegaly, fatty liver , sigmoid diverticulosis, T12 and L1 compression fracture; all these findings need outpatient follow-up. To DC pt's home with outpatient f/u with PCP, Cardio , GI, . Condition: Stable - Instructions Referrals: Salvador Gaines MD [Staff Physician] - (i 1-2 weeks) Lily Maher MD [Primary Care Provider] - (With-in one week. Pt needs evaluation for left renal cyst vs mass. Pt needs GI eval for evaluation of hepatomegaly, fatty liver. ) Disposition: HOME - Home Medications Comprehensive Discharge Medication List: Ambulatory Orders See Home Medication List or DC instructions
[2018-05-02] MEDS: FUROSEMIDE 20 MG TABLET (FP) PO SCH (06:57)
[2018-05-02] MEDS: METOPROLOL TARTRATE 50 MG TABLET (FP) PO SCH (06:57)
[2018-05-02] MEDS: LACTOBACILLUS ACIDOPHILUS 1 TABLET PO SCH (06:57)
[2018-05-02] MEDS: metFORMIN HCL 500 MG TABLET (FP) PO SCH (07:03)
[2018-05-02] MEDS: sitaGLIPtin PHOSPHATE 50 MG TABLET PO SCH (07:03)
[2018-05-02] MEDS: INSULIN SLIDING SCALE (NOVOLOG) 1 VIAL SQ SCH (07:03)
[2018-05-02] MEDS ORDERED: cefTRIAXone SODIUM 1 GM VIAL ONE (08:41)
[2018-05-02] MEDS ORDERED: DEXTROSE 5%-WATER - 50 ML IVPB ONE (08:42)
[2018-05-02] MEDS: TAMSULOSIN HCL 0.4 MG CAP PO SCH (08:58)
[2018-05-02] MEDS: CEFTRIAXONE 1 GM in DEXTROSE 5%-WATER - 50 ML IVPB SCH ×2 (08:58→09:33)
[2018-05-02] MEDS: FERROUS SO4 325 MG TABLET (FP) PO SCH (08:58)
[2018-05-02] MEDS: FLUoxetine HCL 20 MG CAPSULE (FP) PO SCH ×2 (08:59→09:33)
[2018-05-02] MEDS: LISINOPRIL 10 MG TABLET (FP) PO SCH (08:59)
[2018-05-02] MEDS: PANTOPRAZOLE 40 MG TABLET (FP) PO SCH (08:59)
[2018-05-02] MEDS: APIXABAN 5 MG TABLET PO SCH (08:59)
[2018-05-02 09:08] LABS: BLOOD UREA NITROGEN 14 mg/dL (7-18); GLUCOSE,RANDOM 61 mg/dL (74-106)
[2018-05-02 09:09] LABS: ANION GAP 7 MMOL/L (8-16); CALCIUM 8.3 mg/dL (8.5-10.1); CHLORIDE 106 mmol/L (98-107); CO2 27 mmol/L (21-32); MAGNESIUM 2.1 mg/dL (1.8-2.4); POTASSIUM 3.8 mmol/L (3.5-5.1); SODIUM 140 mmol/L (136-145)
--- NOTE | 2018-05-02 09:41 | PN ---
Progress Note, Physician History of Present Illness: Pt w/o CP, palpitations, SOB, dizziness, abd pain, dysuria. - Current Medication List Current Medications: Active Medications Apixaban (Eliquis -) 5 mg PO BID [facility] Last Admin: 05/02/18 08:59 Dose: 5 mg Atorvastatin Calcium (Lipitor -) 80 mg PO [facility] Last Admin: 05/01/18 21:58 Dose: 80 mg Ferrous Sulfate (Feosol -) 325 mg PO DAILY@0800 [facility] Last Admin: 05/02/18 08:58 Dose: 325 mg Fluoxetine HCl (Prozac -) 20 mg PO DAILY [facility] Last Admin: 05/02/18 09:33 Dose: Not Given Furosemide (Lasix -) 20 mg PO BID@0600,1400 [facility] Last Admin: 05/02/18 06:57 Dose: 20 mg Ceftriaxone Sodium 1 gm/ (Dextrose) 50 mls @ 100 mls/hr IVPB DAILY [facility] Last Admin: 05/02/18 09:33 Dose: Not Given Insulin Aspart (Novolog Vial Sliding Scale -) 1 vial SQ [facility]; Protocol Last Admin: 05/02/18 07:03 Dose: Not Given Insulin Detemir (Levemir Vial) 16 units SQ [facility] Last Admin: 05/01/18 21:58 Dose: 16 units Lactobacillus Acidophilus (Bacid -) 1 tab PO TID [facility] Last Admin: 05/02/18 06:57 Dose: 1 tab Lisinopril (Prinivil) 10 mg PO DAILY [facility] Last Admin: 05/02/18 08:59 Dose: 10 mg Metformin HCl (Glucophage -) 1,000 mg PO BIDAC [facility] Last Admin: 05/02/18 07:03 Dose: Not Given Metoprolol Tartrate (Lopressor -) 75 mg PO TID [facility] Last Admin: 05/02/18 06:57 Dose: 75 mg Pantoprazole Sodium (Protonix -) 40 mg PO DAILY [facility] Last Admin: 05/02/18 08:59 Dose: 40 mg Sitagliptin Phosphate (Januvia -) 50 mg PO BIDAC [facility] Last Admin: 05/02/18 07:03 Dose: Not Given Tamsulosin HCl (Flomax -) 0.4 mg PO DAILY@0830 [facility] Last Admin: 05/02/18 08:58 Dose: 0.4 mg - Objective Vital Signs: Vital Signs Temperature 97.0 F L 03/01/19 06:00 Pulse Rate 92 H 05/02/18 06:00 Respiratory Rate 20 05/02/18 06:00 Blood Pressure 145/87 05/02/18 06:00 O2 Sat by Pulse Oximetry (%) 97 05/01/18 21:00 Constitutional: Yes: No Distress, Calm Cardiovascular: Yes: Pulse Irregular, S1, S2 Respiratory: Yes: Regular, CTA Bilaterally. No: Rales Gastrointestinal: Yes: Normal Bowel Sounds, Soft, Abdomen, Obese Edema: No Neurological: Yes: Alert, Oriented Labs: CBC, BMP 05/01/18 05:30 05/02/18 05:30 INR, PTT INR 1.11 (0.83-1.09) H 04/28/18 21:55 Problem List - Problems (1) NSTEMI (non-ST elevated myocardial infarction) Code(s): I21.4 - NON-ST ELEVATION (NSTEMI) MYOCARDIAL INFARCTION (2) UTI (urinary tract infection) Code(s): N39.0 - URINARY TRACT INFECTION, SITE NOT SPECIFIED (3) Abdominal pain Code(s): R10.9 - UNSPECIFIED ABDOMINAL PAIN (4) CVA (cerebral vascular accident) Code(s): I63.9 - CEREBRAL INFARCTION, UNSPECIFIED Qualifiers: CVA mechanism: embolism (5) Diabetes mellitus Code(s): E11.9 - TYPE 2 DIABETES MELLITUS WITHOUT COMPLICATIONS Qualifiers: Diabetes mellitus type: type 2 Diabetes mellitus watermaster insulin use: without watermaster use Diabetes mellitus complication status: without complication Qualified Code(s): E11.9 - Type 2 diabetes mellitus without complications (6) HTN (hypertension) Code(s): I10 - ESSENTIAL (PRIMARY) HYPERTENSION Qualifiers: Hypertension type: essential hypertension Qualified Code(s): I10 - Essential (primary) hypertension (7) Hyperlipidemia Code(s): E78.5 - HYPERLIPIDEMIA, UNSPECIFIED Qualifiers: Hyperlipidemia type: pure hypercholesterolemia Qualified Code(s): E78.00 - Pure hypercholesterolemia, unspecified; E78.0 - Pure hypercholesterolemia (8) Pacemaker Code(s): Z95.0 - PRESENCE OF CARDIAC PACEMAKER (9) CAD (coronary artery disease) Code(s): I25.10 - ATHSCL HEART DISEASE OF [place] CORONARY ARTERY W/O ANG PCTRS Qualifiers: Coronary Disease-Associated Artery/Lesion type: [place] artery [place] vs. transplanted heart: [place] heart Associated angina: without angina Qualified Code(s): I25.10 - Atherosclerotic heart disease of [place] coronary artery without angina pectoris (10) COPD (chronic obstructive pulmonary disease) Code(s): J44.9 - CHRONIC OBSTRUCTIVE PULMONARY DISEASE, UNSPECIFIED (11) Abnormal LFTs Code(s): R94.5 - ABNORMAL RESULTS OF LIVER FUNCTION STUDIES (12) Cyst of left kidney Code(s): N28.1 - CYST OF KIDNEY, ACQUIRED (13) Splenic infarct Code(s): D73.5 - INFARCTION OF SPLEEN (14) Hepatomegaly Code(s): R16.0 - HEPATOMEGALY, NOT ELSEWHERE CLASSIFIED (15) Sigmoid diverticulosis Code(s): K57.30 - DVRTCLOS OF LG INT W/O PERFORATION OR ABSCESS W/O BLEEDING Assessment/Plan Admitted to monitor bed. Started on IV abtx Repleted K Serial CE -trending down Cardio Consult is appreciated. Case was discussed yesterday with Dr. Gaines and pt is ready for DC with outpatient f/u. Cont AC, ASA, BB, Statin. Pt's condition and labs and abd/pelvis CT scan was d/w again with her and recommendation for PCP, GI and follow-up were made. Pt's states that he doesn't know how to give patient Insuline ( in PM). 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 Pt's daughter is sick and cannot help with her mother care. DC home seems unsafe for today if [facility] cannot come to her house and give Insuline. Pt's condition and plan was discussed in details with her nurse and CW.
[2018-05-02 10:59] VITALS: BP 141/98; PULSE 84; TEMP 98.4
== END 2018-05-02 11:30 | disposition home or self-care (01) | DRG 281 ==
LOC: JER 20:11 → JERBED 04-29 01:40 → J4W 04-29 15:11
PROVIDERS: ADMIT Internal Medicine; ATTEND Internal Medicine
DX: I21.4 Non-ST elevation (NSTEMI) myocardial infarction (principal); N39.0 Urinary tract infection, site not specified; I50.22 Chronic systolic (congestive) heart failure; I69.351 Hemiplegia and hemiparesis following cerebral infarction affecting right dominant side; I11.0 Hypertensive heart disease with heart failure; I48.2 Chronic atrial fibrillation; E11.9 Type 2 diabetes mellitus without complications; J44.9 Chronic obstructive pulmonary disease, unspecified; I49.5 Sick sinus syndrome; I69.320 Aphasia following cerebral infarction; E78.5 Hyperlipidemia, unspecified; Z95.0 Presence of cardiac pacemaker; Z79.01 Long term (current) use of anticoagulants; Z79.4 Long term (current) use of insulin; Z79.84 Long term (current) use of oral hypoglycemic drugs; I25.10 Atherosclerotic heart disease of native coronary artery without angina pectoris; Z95.1 Presence of aortocoronary bypass graft; Z87.891 Personal history of nicotine dependence; K57.30 Diverticulosis of large intestine without perforation or abscess without bleeding; D73.5 Infarction of spleen; D64.9 Anemia, unspecified; I25.2 Old myocardial infarction; Z91.14 Patient's other noncompliance with medication regimen
CPT/HCPCS: 36415; 74177-TC; 80048; 80053; 80061; 81003; 81015; 82150; 82248; 82272; 82550; 82962; 83605; 83690; 83721; 83735; 84484; 85025; 85027; 85610; 87086; 87186; 93005; 93010; 93306-TC; 97116-GP; 97161-GP; 99284-25

== ENCOUNTER 2018-05-28 20:42 | Inpatient (IN) | payer OTHER ==
[2018-05-28 21:07] VITALS: BMI 27.4
--- NOTE | 2018-05-28 21:29 | PDOC ---
History of Present Illness - General Chief Complaint: Hematuria Stated Complaint: UTI Time Seen by Provider: 05/28/18 21:16 History Source: Patient, Spouse ( present at bedside.) Exam Limitations: Physical Impairment - History of Present Illness Initial Comments: HPI: 78 y/o female presenting to [facility] complaining of single episode of hematuria this evening. Pts stated the pts home health aid noted half a cup of blood in the toilet this evening with a single spot of blood in the pts diaper. Pt endorses pain while voiding. Denies abdominal or back pain. No h/o of nephrolithiasis. Takes coumadin for A-fib. Left renal cyst noted on CT of abdomen and pelvis in Apr 2018. unable to provide details about pts medical or prescription history. PCP: Dr. Amado Kemp Hx: - Lives at home with . Has home health aide in the evening. Spends days at [place] day rehab program. Medical Hx: - CVA, July 2017, persistent right facial droop, right arm, and right leg deficits. - Afib - CAD - Left Renal Cyst - HTN - HLD - Diabetes - COPD - H/o of Mitral Valve Replacement - Splenic infarct - NSTEMI, Apr 2018 - Diverticulosis Past History - Past Medical History Allergies/Adverse Reactions: Allergies Allergy/AdvReac Type Severity Reaction Status Date / Time No Known Allergies Allergy Verified 05/28/18 21:04 Home Medications: Ambulatory Orders Apixaban [Eliquis -] 5 mg PO BID tablet 07/26/17 Ascorbic Acid [Vitamin C -] 500 mg PO DAILY 30 Days #60 tablet MDD 2 07/26/17 Atorvastatin Ca [Lipitor] 80 mg PO HS tablet 07/26/17 Ferrous Sulfate [Feosol] 325 mg PO DAILY@0800 ud 07/26/17 Pantoprazole Sodium [Protonix -] 40 mg PO DAILY tablet.ec 07/26/17 Fluoxetine HCl Liquid [Prozac 20mg/5mL Oral Solution -] 20 mg PO DAILY 04/28/18 Furosemide [Lasix -] 20 mg PO BID@0600,1400 04/28/18 L. Acidophilus/Pectin, [place] [Acidophilus-Pectin Capsule] 1 each PO TID Loperamide HCl [Loperamide] 2 mg PO DAILY 04/28/18 Metformin HCl [Glucophage] 1,000 mg PO BID 04/28/18 Metoprolol Tartrate [Lopressor -] 75 mg PO TID 04/28/18 Sitagliptin Phosphate [Januvia] 50 mg PO BID 04/28/18 Tamsulosin HCl [Flomax] 0.4 mg PO DAILY 04/28/18 Cefpodoxime Proxetil [Vantin -] 200 mg PO Q12H 5 Days #10 tablet MDD 2 05/02/18 Insulin (Levemir) [Levemir Vial] 16 units SQ HS units 05/02/18 Lisinopril [Prinivil] 10 mg PO DAILY #30 tablet MDD 1 05/02/18 Anemia: Yes Cardiac Disorders: Yes (afib on coumadin, CABG, PPM) CVA: No COPD: Yes (uses nc o2 @ night 1 lpm) CHF: Yes Diabetes: Yes GI Disorders: Yes (GI BLEED) HTN: Yes Hypercholesterolemia: Yes - Surgical History Cardiac Surgery: Yes (pacemaker, CABG) Orthopedic Surgery: (BONE TUMOR REMOVAL 5YRS OLD) - Immunization History Immunization Up to Date: Yes - Suicide/Smoking/Psychosocial Hx Smoking History: Never smoked Have you smoked in the past 12 months: No If you are a former smoker, when did you quit?: 2007 Information on smoking cessation initiated: No Hx Alcohol Use: No Drug/Substance Use Hx: No Substance Use Type: None Hx Substance Use Treatment: No Review of Systems - Review of Systems Able to Perform ROS?: Yes Comments:: In addition to that documented in the HPI above, the additional ROS was obtained : Constitutional: Denies fevers or chills Head: Denies vision changes ENMT: Denies sore throat CV: Denies chest pain Resp: Denies SOB GI: Denies vomiting or diarrhea : Per HPI MSK: Denies recent trauma Skin: Denies new rashes Neuro: Denies new numbness or tingling or weakness Endocrine: Denies polyuria Heme: Denies bleeding or bruising *Physical Exam - Vital Signs Last Vital Signs Temp Pulse Resp BP Pulse Ox 98.7 F 91 H 18 137/56 L 95 05/28/18 20:45 05/28/18 20:45 05/28/18 20:45 05/28/18 20:45 05/28/18 20:45 - Physical Exam Comments: Constitutional: Well-developed, well-nourished, non-toxic elderly adult female in no acute distress or obvious discomfort. Found semi-mccarthy's on hospital bed. Alert and oriented x4. Answered all questions appropriately and completely. Slurred speech. Head: Normocephalic. No obvious external signs of trauma. Right facial droop. Eyes: Sclerae white. Ears: Hearing grossly intact. Nose: No nasal discharge. Neck: Supple, trachea is midline. Cardiovascular / Chest: Irregularly irregular rate and rhythm. No murmur, rubs , clicks, or gallops. Peripheral pulses: radial pulses full. Respiratory: Breathing unlabored. Equal chest rise and fall. Clear to auscultation bilaterally. No stridor, no wheezing, no rhonchi. Gastrointestinal: abdomen is soft, non-tender, non-distended. No suprapubic tenderness. No pulsatile masses. No overlying skin lesions or obvious signs of trauma. Neuro: Alert and oriented. Unable to move right arm or leg. Skin: Warm, dry, and intact. : No R or L CVA tenderness. Psych: Affect: appropriate. Mood: normal. ED Treatment Course - LABORATORY CBC & Chemistry Diagram: 05/28/18 21:40 05/28/18 23:01 - ADDITIONAL ORDERS Additional order review: 05/28/18 05/28/18 05/28/18 23:01 22:12 21:40 PT with INR INR Sodium 143 Cancelled Potassium 3.6 Cancelled Chloride 109 H Cancelled Carbon Dioxide 25 Cancelled Anion Gap 9 Cancelled BUN 21 H Cancelled Creatinine 1.2 Cancelled Creat Clearance w eGFR 43.68 Cancelled Random Glucose 93 Cancelled Calcium 9.1 Cancelled Total Bilirubin 0.7 Cancelled AST 17 Cancelled ALT 22 Cancelled Alkaline Phosphatase 140 H Cancelled Total Protein 6.2 L Cancelled Albumin 3.1 L Cancelled Urine Color Red Urine Appearance Turbid Urine pH 5.0 Ur Specific [place] 1.021 Urine Protein 2+ H Urine Glucose (UA) Negative Urine Ketones Negative Urine Blood 2+ H Urine Nitrite Positive H Urine Bilirubin 1+ H Urine Urobilinogen 0.2 Ur Leukocyte Esterase 2+ H Urine WBC (Auto) 154 Urine RBC (Auto) 7496 Urine Casts (Auto) 25 U Pathogenic Cast Auto None seen U Epithel Cells (Auto) 0.2 Urine Bacteria (Auto) 3153.1 05/28/18 21:40 PT with INR 18.80 H INR 1.59 H Sodium Potassium Chloride Carbon Dioxide Anion Gap BUN Creatinine Creat Clearance w eGFR Random Glucose Calcium Total Bilirubin AST ALT Alkaline Phosphatase Total Protein Albumin Urine Color Urine Appearance Urine pH Ur Specific [place] Urine Protein Urine Glucose (UA) Urine Ketones Urine Blood Urine Nitrite Urine Bilirubin Urine Urobilinogen Ur Leukocyte Esterase Urine WBC (Auto) Urine RBC (Auto) Urine Casts (Auto) U Pathogenic Cast Auto U Epithel Cells (Auto) Urine Bacteria (Auto) 05/28/18 21:40 RBC 4.40 MCV 83.5 MCHC 31.8 L RDW 16.3 H MPV 10.2 Neutrophils % 57.4 D Lymphocytes % 28.8 D Monocytes % 9.0 Eosinophils % 4.1 D Basophils % 0.7 - RADIOLOGY Radiology Studies Ordered: Category Date Time Status KIDNEY / RENAL US [US] Stat Ultrasound 05/28/18 21:45 Ordered PELVIC / BLADDER US [US] Stat Ultrasound 05/28/18 21:45 Ordered Radiograph Interpretation: Renal and Bladder U/S: Sterling Law MD wrote on May 29, 2018 at 01:13 AM: Referring Physician: BISHOP HERNANDEZ Patient Name: KEITH HERNANDEZ THIS IS A PRELIMINARY REPORT FROM [facility] DATE OF SERVICE: 2018-05-29 00:26:45 IMAGES: 17 EXAM: US KIDNEY / RENAL US / PELVIC / BLADDER US HISTORY: Hematuria COMPARISON: None. FINDINGS: Right kidney measures 10.2 cm in length. There is no hydronephrosis renal mass or stone. Left kidney measures 11.0 cm in length. There is no hydronephrosis or renal stone. There is a 2 cm lower pole cyst. There is a [place] catheter in the bladder with no significant post void residual IMPRESSION: No acute findings THIS DOCUMENT HAS BEEN ELECTRONICALLY SIGNED Sterling Law MD 05/29/2018 01:12 EST - Medications Given in the ED: ED Medications Discontinued Medications Generic Name Dose Route Start Last Admin Trade Name Freq PRN Reason Stop Dose Admin Ceftriaxone Sodium 1,000 mg/ 50 mls @ 100 mls/hr 05/28/18 23:48 05/29/18 00: 20 Dextrose IVPB 05/29/18 00:17 100 mls/hr ONCE ONE Administration Medical Decision Making - Medical Decision Making *Reviewed vital signs, nursing notes, and prior visit documentation (if available). 78 y/o female presenting with hematuria and dysuria. Afebrile. Vitals unremarkable for hypotension or tachycardia. Suspect likely hematuria secondary to coumadin. Possible hemorrhagic cystitis. Low suspicion for pyelonephritis given lack of CVA tenderness and normal vital signs. Will obtain UA, urine culture, basic labs to evaluate for renal function. Will obtain bladder and renal U/S to evaluate for interval changes of cyst. UA remarkable for 2+ blood, nitrites, leukocyte esterase, and pyuria. Suspect hemorrhagic cystitis. CBC unremarkable for leukocytosis. INR is subtherapeutic. Will defer further management to medicine team given hematuria. Ordered ceftriaxone for hemorrhagic cystitis. Last urine culture grew proteus mirabilis and klebsiella pneumonia, which were both sensitive to ceftriaxone. 23:[address] Claudia Fischer. Verbally appraised of the pts HPI, ED course, and current plan of management. Will admit pt to med/surg on inpatient status for hemorrhagic cystitis. U/S pending. Ordered EKG and CXR for admission purposes. EKG revealed A-fib with a ventricular rate of 86 bpm. No ischemic changes. Consistent with history. No acute findings on renal and bladder U/S. *DC/Admit/Observation/Transfer Diagnosis at time of Disposition: Acute hemorrhagic cystitis - Discharge Dispostion Condition at time of disposition: Stable - Referrals - Patient Instructions - Post Discharge Activity
--- NOTE | 2018-05-28 21:33 | PDOC ---
Attending Attestation - HPI HPI: 05/28/18 21:57 The patient is a 78 year old female with a past medical history of afib (on coumadin), diabetes, anemia, COPD, CHF, HTN, HLD, and CVA (with residual right facial droop and right upper and lower extremity paralysis) here today for evaluation of hematuria. Patient reports having hematuria tonight when she urinated and pain when she urinated. Patients aide reports that the blood was bright red. Patient's also reports that the patient had one episode of loose stool which is normal after a deviation in diet. Patient denies headache, lightheadedness. Denies fever, chills. Denies chest pain, shortness of breath. Denies nausea, vomiting, diarrhea, abdominal pain. Allergies: NKA PCP: Lily Maher - Physicial Exam PE: 05/28/18 22:19 Constitutional: Awake, alert, oriented. No acute distress. Head: Normocephalic. Atraumatic Eyes: PERRL. EOMI. Conjunctivae are not pale. ENT: Mucous membranes are moist and intact. Posterior pharynx without exudates or erythema. Uvula midline. Neck: Supple. Full ROM. No lymphadenopathy. Cardiovascular: Regular rate. Regular rhythm. S1, S2 regular. Distal pulses are 2+ and symmetric. Pulmonary/Chest: No evidence of respiratory distress. Clear to auscultation bilaterally No wheezing, rales or rhonchi. Abdominal: Soft and non-distended. There is no tenderness. No rebound, guarding or rigidity. No organomegaly. No palpable masses. Good bowel sounds. Back: No CVA tenderness. Genitourinary: +purple tinged unclotted urine. Musculoskeletal: No edema. No cyanosis. No clubbing. Full range of motion in all extremities. Nocalf tenderness. Radial/pedal pulses are intact and 2+ bilaterally Skin: Skin is warm and dry. No petechiae. No purpura. Neurological: +residual right upper and lower extremity paralysis and right sided facial droop. +gargled speech. Alert and oriented to person, place, and time. Psychiatric: Good eye contact. Normal interaction, affect and behavior. <Lino Murphy - Last Filed: 05/28/18 22:18> - Resident Resident Name: Roanld Carreno - ED Attending Attestation I have performed the following: I have examined & evaluated the patient, The case was reviewed & discussed with the resident, I agree w/resident's findings & plan, Exceptions are as noted - Medical Decision Making 05/28/18 21:33 I, Dr. Deirdre Landeros, DO, attest that this document has been prepared under my direction and personally reviewed by me in its entirety. I further attest, that it accurately reflects all work, treatment, procedures and medical decision -making performed by me. 05/28/18 22:15 a/p: 78yo female with hx of CVA with R sided deficits presents for eval of hematuria -pt is on coumadin -states blood in diaper earlier and blood tinged urine at home with the home health aide -pt lives at home with her -suspect elevated inr vs uti -recent ct showed renal infarct and splenic infarct in the past and poss cyst to kidney -will send labs, urine, ucx, renal ultrasound -will place craven catheter 05/28/18 22:16 craven catheter placed with purple tinged urine, no clots 05/28/18 22:17 inr 1.59 05/28/18 23:48 pt with uti - old cultures sensitive to rocephin urine culture pending call placed to Dr. Fischer for admission for UTI as cause of hematuria 05/28/18 23:58 resident discussed the case w dr fischer who accepts pt to service <Deirdre Landeros - Last Filed: 05/29/18 00:02> Heart Score/ECG Review - ECG Intrepretation Comment:: 05/29/18 00:01 afib at 86, low voltage, nl axis, t wave flattening in the lateral leads, no acute changes <Deirdre Landeros - Last Filed: 05/29/18 00:02> Attestations - Attestations 05/28/18 21:57 Documentation prepared by ARIAN Mcmahon, acting as medical billing supervisor for Deirdre Landeros DO. <Lino Murphy - Last Filed: 05/28/18 22:18>
[2018-05-28 21:57] LABS: BASO % 0.7 % (0-2.0); EOS % 4.1 % (0-4.5); HEMATOCRIT 36.8 % (32.4-45.2); HEMOGLOBIN 11.7 GM/dL (10.7-15.3); LYMPH % 28.8 % (8-40); MCH 26.6 pg (25.7-33.7); MCHC 31.8 g/dl (32.0-36.0); MEAN CELL VOLUME 83.5 fl (80-96); MEAN PLT VOLUME 10.2 fl (7.5-11.1); NEUT % 57.4 % (42.8-82.8); PLATELET COUNT 190 K/MM3 (134-434); RDW 16.3 % (11.6-15.6); WHITE BLOOD COUNT 8.6 K/mm3 (4.0-10.0)
[2018-05-28 22:10] LABS: INR 1.59 (0.83-1.09); PROTHROMBIN TIME (PATIENT) 18.8 SEC (9.7-13.0)
[2018-05-28 22:20] LABS: EPI CELLS 0.2 /HPF (0-5); URINE APPEARANCE TURBID; URINE BACTERIA 3153.1 /hpf (NEGATIVE); URINE BILIRUBIN 1+ (NEGATIVE); URINE CASTS 25 /hpf (0-8); URINE COLOR RED; URINE GLUCOSE (UA) NEGATIVE (NEGATIVE); URINE KETONE NEGATIVE (NEGATIVE); URINE LEUK ESTERASE 2+ (NEGATIVE); URINE NITRITE POSITIVE (NEGATIVE); URINE PROTEIN 2+ (NEGATIVE); URINE RBC 7496 /hpf (0-4); URINE UROBILINOGEN 0.2 mg/dL (0.2-1.0); URINE WBC 154 /hpf (0-5)
--- NOTE | 2018-05-28 22:39 | PDOC ---
History of Present Illness - General Chief Complaint: Hematuria Stated Complaint: UTI Time Seen by Provider: 05/28/18 21:16 History Source: Patient, Spouse ( at bedside.), Old Records Exam Limitations: No Limitations - History of Present Illness Initial Comments: HPI: 78 y/o female presenting to [facility] ER complaining of single episode of hematuria this evening. Pts stated the pts home health aid noted half a cup of blood in the toilet this evening with a single spot of blood in the pts diaper. Pt endorses pain while voiding. Denies abdominal or back pain. No h/o of nephrolithiasis. Takes coumadin for A-fib. Left renal cyst noted on CT of abdomen and pelvis in Apr 2018. unable to provide details about pts medical or prescription history. PCP: Dr. Amado Kemp Hx: - Lives at home with . Has home health aide in the evening. Spends days at [place] day rehab program. Medical Hx: - CVA, July 2017, persistent right facial droop, right arm, and right leg deficits. - Afib - CAD - Left Renal Cyst - HTN - HLD - Diabetes - COPD - H/o of Mitral Valve Replacement - Splenic infarct - NSTEMI, Apr 2018 - Diverticulosis Past History - Past Medical History Allergies/Adverse Reactions: Allergies Allergy/AdvReac Type Severity Reaction Status Date / Time No Known Allergies Allergy Verified 05/28/18 21:04 Home Medications: Ambulatory Orders Apixaban [Eliquis -] 5 mg PO BID tablet 07/26/17 Ascorbic Acid [Vitamin C -] 500 mg PO DAILY 30 Days #60 tablet MDD 2 07/26/17 Atorvastatin Ca [Lipitor] 80 mg PO HS tablet 07/26/17 Ferrous Sulfate [Feosol] 325 mg PO DAILY@0800 ud 07/26/17 Pantoprazole Sodium [Protonix -] 40 mg PO DAILY tablet.ec 07/26/17 Fluoxetine HCl Liquid [Prozac 20mg/5mL Oral Solution -] 20 mg PO DAILY 04/28/18 Furosemide [Lasix -] 20 mg PO BID@0600,1400 04/28/18 L. Acidophilus/Pectin, [employer] [Acidophilus-Pectin Capsule] 1 each PO TID Loperamide HCl [Loperamide] 2 mg PO DAILY 04/28/18 Metformin HCl [Glucophage] 1,000 mg PO BID 04/28/18 Metoprolol Tartrate [Lopressor -] 75 mg PO TID 04/28/18 Sitagliptin Phosphate [Januvia] 50 mg PO BID 04/28/18 Tamsulosin HCl [Flomax] 0.4 mg PO DAILY 04/28/18 Cefpodoxime Proxetil [Vantin -] 200 mg PO Q12H 5 Days #10 tablet MDD 2 05/02/18 Insulin (Levemir) [Levemir Vial] 16 units SQ HS units 05/02/18 Lisinopril [Prinivil] 10 mg PO DAILY #30 tablet MDD 1 05/02/18 Anemia: Yes Cardiac Disorders: Yes (afib on coumadin, CABG, PPM) CVA: No COPD: Yes (uses nc o2 @ night 1 lpm) CHF: Yes Diabetes: Yes GI Disorders: Yes (GI BLEED) HTN: Yes Hypercholesterolemia: Yes - Surgical History Cardiac Surgery: Yes (pacemaker, CABG) Orthopedic Surgery: (BONE TUMOR REMOVAL 5YRS OLD) - Immunization History Immunization Up to Date: Yes - Suicide/Smoking/Psychosocial Hx Smoking History: Never smoked Have you smoked in the past 12 months: No If you are a former smoker, when did you quit?: 2007 Information on smoking cessation initiated: No Hx Alcohol Use: No Drug/Substance Use Hx: No Substance Use Type: None Hx Substance Use Treatment: No Review of Systems - Review of Systems Able to Perform ROS?: Yes Comments:: In addition to that documented in the HPI above, the additional ROS was obtained : Constitutional: Denies fevers or chills Head: Denies vision changes ENMT: Denies sore throat CV: Denies chest pain Resp: Denies SOB GI: Denies vomiting or diarrhea : Per HPI MSK: Denies recent trauma Skin: Denies new rashes Neuro: Denies new numbness or tingling or weakness Endocrine: Denies polyuria Heme: Denies bleeding or bruising *Physical Exam - Vital Signs Last Vital Signs Temp Pulse Resp BP Pulse Ox 98.7 F 91 H 18 137/56 L 95 05/28/18 20:45 05/28/18 20:45 05/28/18 20:45 05/28/18 20:45 05/28/18 20:45 - Physical Exam Comments: Constitutional: Well-developed, well-nourished, non-toxic elderly adult female in no acute distress or obvious discomfort. Found semi-folwers on hospital bed. Alert and oriented x4. Answered all questions appropriately and completely. Slurred speech. Head: Normocephalic. No obvious external signs of trauma. Right facial droop. Eyes: Sclerae white. Ears: Hearing grossly intact. Nose: No nasal discharge. Neck: Supple, trachea is midline. Cardiovascular / Chest: Irregularly irregular rate and rhythm. No murmur, rubs , clicks, or gallops. Peripheral pulses: radial pulses full. Respiratory: Breathing unlabored. Equal chest rise and fall. Clear to auscultation bilaterally. No stridor, no wheezing, no rhonchi. Gastrointestinal: abdomen is soft, non-tender, non-distended. No suprapubic tenderness. No pulsatile masses. No overlying skin lesions or obvious signs of trauma. Neuro: Alert and oriented. Unable to move right arm or leg. Skin: Warm, dry, and intact. : No R or L CVA tenderness. Psych: Affect: appropriate. Mood: normal. ED Treatment Course - LABORATORY CBC & Chemistry Diagram: 05/29/18 17:00 05/28/18 23:01 - ADDITIONAL ORDERS Additional order review: Laboratory Results 05/28/18 05/28/18 05/28/18 22:12 21:40 21:40 PT with INR 18.80 H INR 1.59 H Sodium Cancelled Potassium Cancelled Chloride Cancelled Carbon Dioxide Cancelled Anion Gap Cancelled BUN Cancelled Creatinine Cancelled Creat Clearance w eGFR Cancelled Random Glucose Cancelled Calcium Cancelled Total Bilirubin Cancelled AST Cancelled ALT Cancelled Alkaline Phosphatase Cancelled Total Protein Cancelled Albumin Cancelled Urine Color Red Urine Appearance Turbid Urine pH 5.0 Ur Specific [place] 1.021 Urine Protein 2+ H Urine Glucose (UA) Negative Urine Ketones Negative Urine Blood 2+ H Urine Nitrite Positive H Urine Bilirubin 1+ H Urine Urobilinogen 0.2 Ur Leukocyte Esterase 2+ H Urine WBC (Auto) 154 Urine RBC (Auto) 7496 Urine Casts (Auto) 25 U Pathogenic Cast Auto None seen U Epithel Cells (Auto) 0.2 Urine Bacteria (Auto) 3153.1 05/28/18 21:40 RBC 4.40 MCV 83.5 MCHC 31.8 L RDW 16.3 H MPV 10.2 Neutrophils % 57.4 D Lymphocytes % 28.8 D Monocytes % 9.0 Eosinophils % 4.1 D Basophils % 0.7 - RADIOLOGY Radiology Studies Ordered: Category Date Time Status KIDNEY / RENAL US [US] Stat Ultrasound 05/28/18 21:45 Ordered PELVIC / BLADDER US [US] Stat Ultrasound 05/28/18 21:45 Ordered - Medications Given in the ED: ED Medications Discontinued Medications Generic Name Dose Route Start Last Admin Trade Name Baldo PRN Reason Stop Dose Admin Ceftriaxone Sodium 1,000 mg/ 50 mls @ 100 mls/hr 05/28/18 23:48 05/29/18 00: 20 Dextrose IVPB 05/29/18 00:17 100 mls/hr ONCE ONE Administration Medical Decision Making - Medical Decision Making *Reviewed vital signs, nursing notes, and prior visit documentation (if available). 78 y/o female presenting with hematuria and dysuria. Afebrile. Vitals unremarkable for hypotension or tachycardia. Suspect likely hematuria secondary to coumadin. Possible hemorrhagic cystitis. Low suspicion for pyelonephritis given lack of CVA tenderness and normal vital signs. Will obtain UA, urine culture, basic labs to evaluate for renal function. Will obtain bladder and renal U/S to evaluate for interval changes of cyst. UA remarkable for 2+ blood, nitrites, leukocyte esterase, and pyuria. Suspect hemorrhagic cystitis. CBC unremarkable for leukocytosis. INR is subtherapeutic. Will defer further management to medicine team given hematuria. Ordered ceftriaxone for hemorrhagic cystitis. Last urine culture grew proteus mirabilis and klebsiella pneumonia, which were both sensitive to ceftriaxone. 23:[address] Claudia Fischer. Verbally appraised of the pts HPI, ED course, and current plan of management. Will admit pt to med/surg on inpatient status for hemorrhagic cystitis. U/S pending. Ordered EKG and CXR for admission purposes. EKG revealed A-fib with a ventricular rate of 86 bpm. No ischemic changes. Consistent with history. *DC/Admit/Observation/Transfer Diagnosis at time of Disposition: Acute hemorrhagic cystitis - Discharge Dispostion Condition at time of disposition: Stable Decision to Admit order: Yes - Referrals - Patient Instructions - Post Discharge Activity
[2018-05-28 23:37] LABS: ALBUMIN 3.1 g/dl (3.4-5.0); ALK PHOS 140 U/L (45-117); ANION GAP 9 MMOL/L (8-16); BILIRUBIN,TOTAL 0.7 mg/dL (0.2-1); BLOOD UREA NITROGEN 21 mg/dL (7-18); CALCIUM 9.1 mg/dL (8.5-10.1); CHLORIDE 109 mmol/L (98-107); CO2 25 mmol/L (21-32); CREATININE 1.2 mg/dL (0.55-1.3); GLUCOSE,RANDOM 93 mg/dL (74-106); POTASSIUM 3.6 mmol/L (3.5-5.1); SGOT/AST 17 U/L (15-37); SGPT/ALT 22 U/L (13-61); SODIUM 143 mmol/L (136-145); TOT PROT 6.2 g/dl (6.4-8.2)
[2018-05-28] MEDS ORDERED: CEFTRIAXONE 1,000 MG in DEXTROSE 5%-WATER - 50 ML IVPB ONE (23:48)
[2018-05-29] MEDS ORDERED: CEFTRIAXONE 1 GM/50 ML BAG ONE (00:17)
--- NOTE | 2018-05-29 09:56 | HP ---
Admitting History and Physical - Primary Care Physician PCP: Caleb Fischer - Admission History of Present Illness: Pt reports dysuria and frequency over the last 2 days; since yesterday she noticed blood in the urine than got worse. 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) Cardiovascular: Yes: AFIB (on AC), Aortic Stenosis (s/p ring repair at [facility]), CAD , HTN, Mitral Insufficiency (MVR 2009 [facility]), Other (PPM) Pulmonary: Yes: COPD Gastrointestinal: Yes: Diverticulosis, GI Bleed (recent bleed felt 2ndary to vascular ectasias), Other (07/19 four adenomatous tx colon polyps resected, cecal angiodysplasias seen) ...: No Heme/Onc: Yes: Anemia Rheumatology: Yes: Other (osteoarthritis) Endocrine: Yes: Diabetes Mellitus - Past Surgical History Past Surgical History: Yes: Colonoscopy, Upper Endoscopy - Smoking History Smoking history: Never smoked Have you smoked in the past 12 months: No If you are a former smoker, when did you quit?: 2007 - Alcohol/Substance Use Hx Alcohol Use: No History of Substance Use: reports: None - Social History ADL: Independent 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 History of Recent Travel: No Home Medications - Allergies Allergies/Adverse Reactions: Allergies Allergy/AdvReac Type Severity Reaction Status Date / Time No Known Allergies Allergy Verified 05/28/18 21:04 - Home Medications Home Medications: Ambulatory Orders Apixaban [Eliquis -] 5 mg PO BID tablet 07/26/17 Ascorbic Acid [Vitamin C -] 500 mg PO DAILY 30 Days #60 tablet MDD 2 07/26/17 Atorvastatin Ca [Lipitor] 80 mg PO HS tablet 07/26/17 Ferrous Sulfate [Feosol] 325 mg PO DAILY@0800 ud 07/26/17 Pantoprazole Sodium [Protonix -] 40 mg PO DAILY tablet.ec 07/26/17 Fluoxetine HCl Liquid [Prozac 20mg/5mL Oral Solution -] 20 mg PO DAILY 04/28/18 Furosemide [Lasix -] 20 mg PO BID@0600,1400 04/28/18 L. Acidophilus/Pectin, [place] [Acidophilus-Pectin Capsule] 1 each PO TID Loperamide HCl [Loperamide] 2 mg PO DAILY 04/28/18 Metformin HCl [Glucophage] 1,000 mg PO BID 04/28/18 Metoprolol Tartrate [Lopressor -] 75 mg PO TID 04/28/18 Sitagliptin Phosphate [Januvia] 50 mg PO BID 04/28/18 Tamsulosin HCl [Flomax] 0.4 mg PO DAILY 04/28/18 Cefpodoxime Proxetil [Vantin -] 200 mg PO Q12H 5 Days #10 tablet MDD 2 05/02/18 Insulin (Levemir) [Levemir Vial] 16 units SQ HS units 05/02/18 Lisinopril [Prinivil] 10 mg PO DAILY #30 tablet MDD 1 05/02/18 Family Disease History - Family Disease History Family Disease History: Heart Disease: Father ( [place] age 67), Mother ( CHF in her 70's) Review of Systems - Review of Systems Constitutional: denies: Chills, Fever Eyes: denies: Blurred Vision, Recent Change in Vision HENT: denies: Ear Discharge, Ear Pain, Nasal Congestion, Throat Pain Neck: denies: Pain on Movement, Stiffness Cardiovascular: denies: Chest Pain, Edema, Palpitations Respiratory: denies: Cough, SOB Gastrointestinal: denies: Abdominal Pain, Diarrhea, Nausea, Vomiting Genitourinary: reports: Dysuria, Frequency. denies: Flank Pain Musculoskeletal: denies: Back Pain, Joint Swelling, Muscle Pain Neurological: denies: Change in LOC, Numbness, Syncope Endocrine: denies: Excessive Sweating, Intolerance to Cold Hematology/Lymphatic: denies: Easily Bruised Psychiatric: denies: Anxiety, Depression Physical Examination Vital Signs: Vital Signs Temperature 98 F 05/29/18 05:55 Pulse Rate 108 H 05/29/18 05:55 Respiratory Rate 20 05/29/18 05:55 Blood Pressure 157/75 05/29/18 05:55 O2 Sat by Pulse Oximetry (%) 95 05/29/18 02:51 Constitutional: Yes: No Distress, Calm Eyes: Yes: Conjunctiva Clear. No: Tearing HENT: No: Normocephalic, Epistaxis, Rhinnorhea Neck: Yes: Trachea Midline. No: Lymphadenopathy Cardiovascular: Yes: Regular Rate and Rhythm, S1, S2 Respiratory: No: CTA Bilaterally, Rhonchi Gastrointestinal: Yes: Normal Bowel Sounds, Soft. No: Tenderness, Tenderness, Rebound ...Rectal Exam: Yes: Deferred Renal/: No: CVA Tenderness - Left, CVA Tenderness - Right Breast(s): Yes: Other (deferred) Edema: No Integumentary: No: Bruising, Rash Neurological: Yes: Alert, Oriented, Other (weakness of thr right side ( 3/5 in leg and arm) comparing with left) Psychiatric: Yes: Alert, Oriented Labs: CBC, BMP 05/28/18 21:40 05/28/18 23:01 Imaging - Results Chest X-ray: Report Reviewed Problem List - Problems (1) Acute hemorrhagic cystitis Code(s): N30.01 - ACUTE CYSTITIS WITH HEMATURIA (2) CVA (cerebral vascular accident) Assessment/Plan: with right hemiplegia and dysarthria Code(s): I63.9 - CEREBRAL INFARCTION, UNSPECIFIED Qualifiers: CVA mechanism: embolism (3) CAD (coronary artery disease) Code(s): I25.10 - ATHSCL HEART DISEASE OF [place] CORONARY ARTERY W/O ANG PCTRS Qualifiers: Coronary Disease-Associated Artery/Lesion type: [place] artery [place] vs. transplanted heart: [place] heart Associated angina: without angina Qualified Code(s): I25.10 - Atherosclerotic heart disease of [place] coronary artery without angina pectoris (4) Diabetes mellitus Code(s): E11.9 - TYPE 2 DIABETES MELLITUS WITHOUT COMPLICATIONS Qualifiers: Diabetes mellitus type: type 2 Diabetes mellitus long-term insulin use: without terminal operations manager use Diabetes mellitus complication status: without complication Qualified Code(s): E11.9 - Type 2 diabetes mellitus without complications (5) HTN (hypertension) Code(s): I10 - ESSENTIAL (PRIMARY) HYPERTENSION Qualifiers: Hypertension type: essential hypertension Qualified Code(s): I10 - Essential (primary) hypertension (6) A-fib Code(s): I48.91 - UNSPECIFIED ATRIAL FIBRILLATION Assessment/Plan IV Ceftriaxone Cardio Consult consult F/u H/H AC on hold AM labs
--- NOTE | 2018-05-29 11:08 | CON.CARD ---
Consult Consult Specialty:: Cardiology Referred by:: Zenia Fischer MD Reason for Consultation:: Pre-op CV evaluation - History of Present Illness Chief Complaint: Hematuria History of Present Illness: Patient is a 78 year old female with underlying history of CVA with right sided residual weakness, type 2 DM, hypercholesterolemia, AF on Eliquis with recent splenic infarcts, HTN, CAD, angina, history of mitral valve ring repair, sick sinus syndrome s/p PPM and COPD who presents with hematuria w/o clots, craven inserted, denies dysuria, CVA tenderness, fevers, chills, chest pain, dyspnea, near or true syncope, palpitations, orthopnea, PND or LE edema. 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) Cardio/Vascular: Yes: AFIB (on AC), Aortic Stenosis (s/p ring repair at [facility]), CAD, HTN, Mitral Insufficiency (MVR 2009 [facility]), Other (PPM) Pulmonary: Yes: COPD Gastrointestinal: Yes: Diverticulosis, GI Bleed (recent bleed felt 2ndary to vascular ectasias), Other (07/19 four adenomatous tx colon polyps resected, cecal angiodysplasias seen) ...: No Rheumatology: Yes: Other (osteoarthritis) Endocrine: Yes: Diabetes Mellitus - Past Surgical History Past Surgical History: Yes: Colonoscopy, Upper Endoscopy - Alcohol/Substance Use Hx Alcohol Use: No History of Substance Use: reports: None - Smoking History Smoking history: Never smoked Have you smoked in the past 12 months: No If you are a former smoker, when did you quit?: 2007 - Social History Usual Living Arrangement: With Spouse ADL: Independent 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 History of Recent Travel: No Home Medications - Allergies Allergies/Adverse Reactions: Allergies Allergy/AdvReac Type Severity Reaction Status Date / Time No Known Allergies Allergy Verified 05/28/18 21:04 - Home Medications Home Medications: Ambulatory Orders Apixaban [Eliquis -] 5 mg PO BID tablet 07/26/17 Ascorbic Acid [Vitamin C -] 500 mg PO DAILY 30 Days #60 tablet MDD 2 07/26/17 Atorvastatin Ca [Lipitor] 80 mg PO HS tablet 07/26/17 Ferrous Sulfate [Feosol] 325 mg PO DAILY@0800 ud 07/26/17 Pantoprazole Sodium [Protonix -] 40 mg PO DAILY tablet.ec 07/26/17 Fluoxetine HCl Liquid [Prozac 20mg/5mL Oral Solution -] 20 mg PO DAILY 04/28/18 Furosemide [Lasix -] 20 mg PO BID@0600,1400 04/28/18 L. Acidophilus/Pectin, [place] [Acidophilus-Pectin Capsule] 1 each PO TID Loperamide HCl [Loperamide] 2 mg PO DAILY 04/28/18 Metformin HCl [Glucophage] 1,000 mg PO BID 04/28/18 Metoprolol Tartrate [Lopressor -] 75 mg PO TID 04/28/18 Sitagliptin Phosphate [Januvia] 50 mg PO BID 04/28/18 Tamsulosin HCl [Flomax] 0.4 mg PO DAILY 04/28/18 Cefpodoxime Proxetil [Vantin -] 200 mg PO Q12H 5 Days #10 tablet MDD 2 05/02/18 Insulin (Levemir) [Levemir Vial] 16 units SQ HS units 05/02/18 Lisinopril [Prinivil] 10 mg PO DAILY #30 tablet MDD 1 05/02/18 Family Disease History - Family Disease History Family Disease History: Heart Disease: Father ( [place] age 67), Mother ( CHF in her 70's) Review of Systems - Review of Systems Genitourinary: reports: Hematuria Vital Signs: Vital Signs Temperature 98 F 05/29/18 05:55 Pulse Rate 108 H 05/29/18 05:55 Respiratory Rate 20 05/29/18 05:55 Blood Pressure 157/75 05/29/18 05:55 O2 Sat by Pulse Oximetry (%) 95 05/29/18 02:51 Constitutional: Yes: No Distress, Calm, Thin Neck: Yes: Supple Respiratory: Yes: Regular, Diminished, On Nasal O2 Gastrointestinal: Yes: Soft, Hypoactive Bowel Sounds Renal/: Yes: [place] Present, Hematuria Cardiovascular: Yes: Pulse Irregular JVD: No Carotid Bruit: No Heart Sounds: Yes: S1, S2 Murmur: Yes: Systolic Murmur, Grade 2 Edema: No - Other Data Labs, Other Data: CBC, BMP 05/28/18 21:40 05/28/18 23:01 INR, PTT INR 1.59 (0.83-1.09) H 05/28/18 21:40 Afib Echo: Report Reviewed Ejection Fraction %: LVEF > or = 40 % Imaging - Results Chest X-ray: Report Reviewed (NAD) Ultrasound: Report Reviewed (No hydronephrosis, cystitis suspected) Problem List - Problems (1) CKD (chronic kidney disease) Code(s): N18.9 - CHRONIC KIDNEY DISEASE, UNSPECIFIED Qualifiers: Chronic kidney disease stage: stage 2 (mild) Qualified Code(s): N18.2 - Chronic kidney disease, stage 2 (mild) (2) Acute hemorrhagic cystitis Code(s): N30.01 - ACUTE CYSTITIS WITH HEMATURIA (3) Angiodysplasia of colon with hemorrhage Code(s): K55.21 - ANGIODYSPLASIA OF COLON WITH HEMORRHAGE (4) CVA (cerebral vascular accident) Code(s): I63.9 - CEREBRAL INFARCTION, UNSPECIFIED Qualifiers: CVA mechanism: embolism (5) Diastolic dysfunction Code(s): I51.89 - OTHER ILL-DEFINED HEART DISEASES (6) Sick sinus syndrome Code(s): I49.5 - SICK SINUS SYNDROME (7) Splenic infarct Code(s): D73.5 - INFARCTION OF SPLEEN (8) UTI (urinary tract infection) Code(s): N39.0 - URINARY TRACT INFECTION, SITE NOT SPECIFIED Qualifiers: Urinary tract infection type: acute cystitis Hematuria presence: with hematuria Qualified Code(s): N30.01 - Acute cystitis with hematuria (9) Atrial fibrillation Code(s): I48.91 - UNSPECIFIED ATRIAL FIBRILLATION Qualifiers: Atrial fibrillation type: permanent Qualified Code(s): I48.2 - Chronic atrial fibrillation (10) CAD (coronary artery disease) Code(s): I25.10 - ATHSCL HEART DISEASE OF [place] CORONARY ARTERY W/O ANG PCTRS Qualifiers: Coronary Disease-Associated Artery/Lesion type: [place] artery [place] vs. transplanted heart: [place] heart Associated angina: without angina Qualified Code(s): I25.10 - Atherosclerotic heart disease of [place] coronary artery without angina pectoris (11) H/O mitral valve replacement Code(s): Z95.2 - PRESENCE OF PROSTHETIC HEART VALVE (12) HTN (hypertension) Code(s): I10 - ESSENTIAL (PRIMARY) HYPERTENSION Qualifiers: Hypertension type: essential hypertension Qualified Code(s): I10 - Essential (primary) hypertension (13) Hyperlipidemia Code(s): E78.5 - HYPERLIPIDEMIA, UNSPECIFIED Qualifiers: Hyperlipidemia type: pure hypercholesterolemia Qualified Code(s): E78.00 - Pure hypercholesterolemia, unspecified; E78.0 - Pure hypercholesterolemia (14) Pacemaker Code(s): Z95.0 - PRESENCE OF CARDIAC PACEMAKER (15) Pre-operative cardiovascular examination Code(s): Z01.810 - ENCOUNTER FOR PREPROCEDURAL CARDIOVASCULAR EXAMINATION Assessment/Plan 04/30/2018 Echo: Normal LV size and fxn, severe TR RVSP 50-60 mmHg, mild MR 12/17/2016 reveal: 03/2009 acute systolic CHF and AL, R&LHc 90% distal OM1, 60% D1, preserved LV fxn, elevated LVEDP [place] severe posterior leaflet prolapse with severe MR->MV annuloplasty repair, afib, sinus arrest->PPM, CAD left alone. [facility] Echo: 06/28/16 normal biventricular fxn, COSMO, mod TR, MV ring Nuc stress 09/13/2016 Anterolateral ischemia/infarct SDS 3 EF 82%, abnl ecg changes 1. Hematuria suspect hemorrhagic cystitis 2. CAD h/o [place], angina pectoris 3. Permanent AF [id number] score of 9 with h/o splenic infarcts, suspect non- compliance instead of Eliquis failure 4. Anemia likely SB vascular ectasias 5. HTN 6. Hypercholesterolemia 7. DM 8. 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 Mitral valve ring repair 2009 10. Sick sinus syndrome s/p PPM 11. COPD 12. CKD 13. Diastolic dysfunction PLAN: 1. Hold Eliquis 5 mg BID pending hemostasis 2. Given absence of symptoms of acute coronary syndrome, decompensated CHF or malignant arrhythmia, may proceed with cystoscopy from CV-standpoint without further testing 3. Continue Lipitor 80 qhs, Lopressor 75 tid, and lisinopril 10 qd with uptitration as tolerated as renal fxn stabilized, not on Plavix 75 qd given h/o GI bleed from SB AVM 4. Decrease oral diuretics Lasix 20 qd, and monitor renal function and electrolytes, replete K 5. Sees Dread Cowan of [facility], consider [facility] as outpatient if Eliquis compliance is suboptimal or recurrent bleeding given recurrent embolic events
--- NOTE | 2018-05-29 11:50 | EKG ---
Test Reason : Blood Pressure : / mmHG Vent. Rate : 086 BPM Atrial Rate : 088 BPM P-R Int : 000 ms QRS Dur : 078 ms QT Int : 352 ms P-R-T Axes : 000 046 098 degrees QTc Int : 421 ms ATRIAL FIBRILLATION LOW VOLTAGE QRS NONSPECIFIC ST AND T WAVE ABNORMALITY ABNORMAL ECG WHEN COMPARED WITH ECG OF 29-APR-2018 01:53, T WAVE INVERSION NO LONGER EVIDENT IN LATERAL LEADS Confirmed by JUAN KAM, JOANN ([id number]) on 05/29/2018 11:50:12 AM Referred By: Confirmed By:JOANN MARTINEZ MD
[2018-05-29] MEDS ORDERED: FUROSEMIDE 40 MG TABLET (FP) PO SCH (14:00)
[2018-05-29] MEDS: PANTOPRAZOLE 40 MG TABLET (FP) PO SCH (14:36)
[2018-05-29] MEDS: TAMSULOSIN HCL 0.4 MG CAP PO SCH (14:36)
[2018-05-29] MEDS: LOPERAMIDE HCL 2 MG CAPSULE PO SCH (14:37)
[2018-05-29] MEDS: FLUoxetine HCL 20 MG/5 ML 120 BOTTLE PO SCH (14:37)
[2018-05-29] MEDS: ASCORBIC ACID 500 MG TABLET (FP) PO SCH (14:37)
[2018-05-29] MEDS: FERROUS SO4 325 MG TABLET (FP) PO SCH (14:37)
[2018-05-29] MEDS: LACTOBACILLUS ACIDOPHILUS 1 TABLET PO SCH ×2 (14:44→21:31)
[2018-05-29] MEDS: METOPROLOL TARTRATE 50 MG TABLET (FP) PO SCH ×2 (14:48→21:31)
[2018-05-29] MEDS: LISINOPRIL 10 MG TABLET (FP) PO SCH (14:49)
[2018-05-29] MEDS: INSULIN SLIDING SCALE (NOVOLOG) 1 VIAL SQ SCH ×2 (17:31→21:32)
[2018-05-29] MEDS: sitaGLIPtin PHOSPHATE 50 MG TABLET PO SCH (17:31)
[2018-05-29] MEDS: metFORMIN HCL 500 MG TABLET (FP) PO SCH (17:31)
[2018-05-29 17:53] LABS: HEMATOCRIT 34.4 % (32.4-45.2); HEMOGLOBIN 11.2 GM/dL (10.7-15.3); MCH 26.8 pg (25.7-33.7); MCHC 32.5 g/dl (32.0-36.0); MEAN CELL VOLUME 82.3 fl (80-96); MEAN PLT VOLUME 10.3 fl (7.5-11.1); PLATELET COUNT 164 K/MM3 (134-434); RBC 4.18 M/mm3 (3.60-5.2); RDW 16.1 % (11.6-15.6); WHITE BLOOD COUNT 6.6 K/mm3 (4.0-10.0)
--- NOTE | 2018-05-29 18:20 | CON.GU ---
Consult - History of Present Illness History of Present Illness: 78 yo female with recent stroke, on Eliquus, now admitted with gross hematuria. No flank pain or dysuria. UA suggestive of uti. 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) Cardio/Vascular: Yes: AFIB (on AC), Aortic Stenosis (s/p ring repair at [facility]), CAD, HTN, Mitral Insufficiency (MVR 2009 [facility]), Other (PPM) Pulmonary: Yes: COPD Gastrointestinal: Yes: Diverticulosis, GI Bleed (recent bleed felt 2ndary to vascular ectasias), Other (07/19 four adenomatous tx colon polyps resected, cecal angiodysplasias seen) ...: No Rheumatology: Yes: Other (osteoarthritis) Endocrine: Yes: Diabetes Mellitus - Past Surgical History Past Surgical History: Yes: Colonoscopy, Upper Endoscopy - Alcohol/Substance Use Hx Alcohol Use: No History of Substance Use: reports: None - Smoking History Smoking history: Never smoked Have you smoked in the past 12 months: No If you are a former smoker, when did you quit?: 2007 - Social History Usual Living Arrangement: With Spouse ADL: Independent 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 History of Recent Travel: No Home Medications - Allergies Allergies/Adverse Reactions: Allergies Allergy/AdvReac Type Severity Reaction Status Date / Time No Known Allergies Allergy Verified 05/28/18 21:04 - Home Medications Home Medications: Ambulatory Orders Apixaban [Eliquis -] 5 mg PO BID tablet 07/26/17 Ascorbic Acid [Vitamin C -] 500 mg PO DAILY 30 Days #60 tablet MDD 2 07/26/17 Atorvastatin Ca [Lipitor] 80 mg PO HS tablet 07/26/17 Ferrous Sulfate [Feosol] 325 mg PO DAILY@0800 ud 07/26/17 Pantoprazole Sodium [Protonix -] 40 mg PO DAILY tablet.ec 07/26/17 Fluoxetine HCl Liquid [Prozac 20mg/5mL Oral Solution -] 20 mg PO DAILY 04/28/18 Furosemide [Lasix -] 20 mg PO BID@0600,1400 04/28/18 L. Acidophilus/Pectin, [place] [Acidophilus-Pectin Capsule] 1 each PO TID Loperamide HCl [Loperamide] 2 mg PO DAILY 04/28/18 Metformin HCl [Glucophage] 1,000 mg PO BID 04/28/18 Metoprolol Tartrate [Lopressor -] 75 mg PO TID 04/28/18 Sitagliptin Phosphate [Januvia] 50 mg PO BID 04/28/18 Tamsulosin HCl [Flomax] 0.4 mg PO DAILY 04/28/18 Cefpodoxime Proxetil [Vantin -] 200 mg PO Q12H 5 Days #10 tablet MDD 2 05/02/18 Insulin (Levemir) [Levemir Vial] 16 units SQ HS units 05/02/18 Lisinopril [Prinivil] 10 mg PO DAILY #30 tablet MDD 1 05/02/18 Family Disease History - Family Disease History Family Disease History: Heart Disease: Father ( [place] age 67), Mother ( CHF in her 70's) Review of Systems - Review of Systems Genitourinary: reports: Hematuria Physical Exam- Vital Signs: Vital Signs Temperature 98.3 F 05/29/18 13:27 Pulse Rate 119 H 05/29/18 13:27 Respiratory Rate 20 05/29/18 13:27 Blood Pressure 127/73 05/29/18 13:27 O2 Sat by Pulse Oximetry (%) 95 05/29/18 02:51 Renal/: Yes: [place] Present, Hematuria Labs: CBC, BMP 05/29/18 17:00 05/28/18 23:01 Imaging - Results Ultrasound: Report Reviewed Problem List - Problems (1) Gross hematuria Assessment/Plan: agree with abx while awaiting cultures, hold anticoagulation, bladder irrigation Code(s): R31.0 - GROSS HEMATURIA
[2018-05-29] MEDS ORDERED: INSULIN (NOVOLOG) ASPART 100 UNITS/ML 10ML VIAL ONE (20:43)
[2018-05-29] MEDS ORDERED: DEXTROSE 5%-WATER - 50 ML IVPB ONE (20:44)
[2018-05-29] MEDS ORDERED: cefTRIAXone SODIUM 1 GM VIAL ONE (20:44)
[2018-05-29] MEDS: INSULIN (LEVEMIR) 100 UNITS/ML UNITS SQ SCH (21:32)
[2018-05-29] MEDS: CEFTRIAXONE 1 GM in DEXTROSE 5%-WATER - 50 ML IVPB SCH (21:32)
[2018-05-29] MEDS: ATORVASTATIN CA 80 MG TABLET (FP) PO SCH (21:32)
[2018-05-30] MEDS: INSULIN SLIDING SCALE (NOVOLOG) 1 VIAL SQ SCH ×4 (06:02→21:36)
[2018-05-30] MEDS: metFORMIN HCL 500 MG TABLET (FP) PO SCH ×2 (06:02→18:37)
[2018-05-30] MEDS: METOPROLOL TARTRATE 50 MG TABLET (FP) PO SCH ×3 (06:03→21:39)
[2018-05-30] MEDS: LACTOBACILLUS ACIDOPHILUS 1 TABLET PO SCH ×3 (06:03→21:38)
[2018-05-30] MEDS: sitaGLIPtin PHOSPHATE 50 MG TABLET PO SCH ×2 (06:03→18:37)
[2018-05-30] MEDS ORDERED: PT OWN MED DRAWER 7, Y5N ONE (08:29)
[2018-05-30 08:35] LABS: BASO % 0.6 % (0-2.0); EOS % 4.1 % (0-4.5); HEMATOCRIT 36.2 % (32.4-45.2); HEMOGLOBIN 11.6 GM/dL (10.7-15.3); LYMPH % 21.9 % (8-40); MCH 26.1 pg (25.7-33.7); MCHC 32.2 g/dl (32.0-36.0); MEAN CELL VOLUME 81.1 fl (80-96); MEAN PLT VOLUME 9.7 fl (7.5-11.1); MONO % 6.3 % (3.8-10.2); NEUT % 67.1 % (42.8-82.8); PLATELET COUNT 167 K/MM3 (134-434); RBC 4.46 M/mm3 (3.60-5.2); RDW 15.7 % (11.6-15.6); WHITE BLOOD COUNT 7.2 K/mm3 (4.0-10.0)
[2018-05-30 08:54] LABS: ALK PHOS 123 U/L (45-117); ANION GAP 7 MMOL/L (8-16); BILIRUBIN,TOTAL 0.6 mg/dL (0.2-1); BLOOD UREA NITROGEN 16 mg/dL (7-18); CALCIUM 8.9 mg/dL (8.5-10.1); CHLORIDE 108 mmol/L (98-107); CO2 27 mmol/L (21-32); CREATININE 0.9 mg/dL (0.55-1.3); GLUCOSE,RANDOM 89 mg/dL (74-106); POTASSIUM 3.6 mmol/L (3.5-5.1); SGOT/AST 17 U/L (15-37); SGPT/ALT 19 U/L (13-61); SODIUM 142 mmol/L (136-145); TOT PROT 5.7 g/dl (6.4-8.2)
--- NOTE | 2018-05-30 10:29 | PN ---
Progress Note, Physician History of Present Illness: Pt w/o fever, chills. Pt with gas and on and off abd pain, non localized. Pt w/o BM yesterday and today. Pt w/o SOB, CP, palpitations. Pt's nurse is at bedside. Pt's [place] with hematuria but slighter color. - Current Medication List Current Medications: Active Medications Ascorbic Acid (Vitamin C -) 500 mg PO DAILY [facility] Last Admin: 05/29/18 14:37 Dose: 500 mg Atorvastatin Calcium (Lipitor -) 80 mg PO HS [facility] Last Admin: 05/29/18 21:32 Dose: 80 mg Ferrous Sulfate (Feosol -) 325 mg PO DAILY@0800 [facility] Last Admin: 05/29/18 14:37 Dose: 325 mg Fluoxetine HCl (Prozac Oral Solution -) 20 mg PO DAILY [facility] Last Admin: 05/29/18 14:37 Dose: Not Given Furosemide (Lasix -) 20 mg PO DAILY [facility] Ceftriaxone Sodium 1 gm/ (Dextrose) 50 mls @ 100 mls/hr IVPB [facility] Last Admin: 05/29/18 21:32 Dose: 100 mls/hr Insulin Aspart (Novolog Vial Sliding Scale -) 0 - 10 vial SQ [facility]; Protocol Last Admin: 05/30/18 06:02 Dose: Not Given Insulin Detemir (Levemir Vial) 16 units SQ [facility] Last Admin: 05/29/18 21:32 Dose: 16 units Lactobacillus Acidophilus (Bacid -) 1 tab PO TID [facility] Last Admin: 05/30/18 06:03 Dose: 1 tab Lisinopril (Prinivil) 10 mg PO DAILY [facility] Last Admin: 05/29/18 14:49 Dose: 10 mg Loperamide HCl (Imodium -) 2 mg PO DAILY [facility] Last Admin: 05/29/18 14:37 Dose: Not Given Metformin HCl (Glucophage -) 1,000 mg PO BIDAC [facility] Last Admin: 05/30/18 06:02 Dose: Not Given Metoprolol Tartrate (Lopressor -) 75 mg PO TID [facility] Last Admin: 05/30/18 06:03 Dose: 75 mg Pantoprazole Sodium (Protonix -) 40 mg PO DAILY [facility] Last Admin: 05/29/18 14:36 Dose: 40 mg Sitagliptin Phosphate (Januvia -) 50 mg PO BIDAC [facility] Last Admin: 05/30/18 06:03 Dose: 50 mg Tamsulosin HCl (Flomax -) 0.4 mg PO DAILY@0830 [facility] Last Admin: 05/29/18 14:36 Dose: 0.4 mg - Objective Vital Signs: Vital Signs Temperature 98.6 F 05/30/18 05:39 Pulse Rate 97 H 05/30/18 05:39 Respiratory Rate 20 05/30/18 05:39 Blood Pressure 155/83 05/30/18 05:39 O2 Sat by Pulse Oximetry (%) 97 05/29/18 21:00 Constitutional: Yes: No Distress. No: Anxious Cardiovascular: Yes: Regular Rate and Rhythm, S1, S2 Respiratory: Yes: Regular, CTA Bilaterally. No: Rales Gastrointestinal: Yes: Normal Bowel Sounds, Soft. No: Tenderness Edema: No Neurological: Yes: Alert, Oriented Labs: CBC, BMP 05/30/18 08:20 05/30/18 08:20 INR, PTT INR 1.59 (0.83-1.09) H 05/28/18 21:40 Problem List - Problems (1) Acute hemorrhagic cystitis Code(s): N30.01 - ACUTE CYSTITIS WITH HEMATURIA (2) CVA (cerebral vascular accident) Code(s): I63.9 - CEREBRAL INFARCTION, UNSPECIFIED Qualifiers: CVA mechanism: embolism (3) CAD (coronary artery disease) Code(s): I25.10 - ATHSCL HEART DISEASE OF [place] CORONARY ARTERY W/O ANG PCTRS Qualifiers: Coronary Disease-Associated Artery/Lesion type: [place] artery [place] vs. transplanted heart: [place] heart Associated angina: without angina Qualified Code(s): I25.10 - Atherosclerotic heart disease of [place] coronary artery without angina pectoris (4) Diabetes mellitus Code(s): E11.9 - TYPE 2 DIABETES MELLITUS WITHOUT COMPLICATIONS Qualifiers: Diabetes mellitus type: type 2 Diabetes mellitus shelter insulin use: without bed bug exterminator use Diabetes mellitus complication status: without complication Qualified Code(s): E11.9 - Type 2 diabetes mellitus without complications (5) HTN (hypertension) Code(s): I10 - ESSENTIAL (PRIMARY) HYPERTENSION Qualifiers: Hypertension type: essential hypertension Qualified Code(s): I10 - Essential (primary) hypertension (6) A-fib Code(s): I48.91 - UNSPECIFIED ATRIAL FIBRILLATION (7) Constipation Code(s): K59.00 - CONSTIPATION, UNSPECIFIED (8) Abdominal gas pain Code(s): R14.1 - GAS PAIN Assessment/Plan IV Ceftriaxone Cardio and consults are appreciated F/u H/H AC on hold. Add Simethicone and Colace. AM labs
[2018-05-30] MEDS ORDERED: SIMETHICONE 80 MG TAB.CHEW (FP) PO PRN (10:46)
[2018-05-30] MEDS: PANTOPRAZOLE 40 MG TABLET (FP) PO SCH (11:00)
[2018-05-30] MEDS: LOPERAMIDE HCL 2 MG CAPSULE PO SCH (11:00)
[2018-05-30] MEDS: FERROUS SO4 325 MG TABLET (FP) PO SCH (11:00)
[2018-05-30] MEDS: ASCORBIC ACID 500 MG TABLET (FP) PO SCH (11:00)
[2018-05-30] MEDS: LISINOPRIL 10 MG TABLET (FP) PO SCH (11:00)
[2018-05-30] MEDS: FUROSEMIDE 20 MG TABLET (FP) PO SCH (11:00)
[2018-05-30] MEDS: TAMSULOSIN HCL 0.4 MG CAP PO SCH (11:00)
[2018-05-30] MEDS: FLUoxetine HCL 20 MG/5 ML 120 BOTTLE PO SCH (11:00)
[2018-05-30] MEDS: DOCUSATE SODIUM 100 MG CAPSULE (FP) PO SCH ×2 (11:03→21:38)
--- NOTE | 2018-05-30 11:36 | PN ---
Progress Note, Physician History of Present Illness: Hematuria cleared, eating lunch in chair. - Current Medication List Current Medications: Active Medications Ascorbic Acid (Vitamin C -) 500 mg PO DAILY [facility] Last Admin: 05/30/18 11:00 Dose: 500 mg Atorvastatin Calcium (Lipitor -) 80 mg PO HS [facility] Last Admin: 05/29/18 21:32 Dose: 80 mg Docusate Sodium (Colace -) 100 mg PO BID [facility] Last Admin: 05/30/18 11:03 Dose: 100 mg Ferrous Sulfate (Feosol -) 325 mg PO DAILY@0800 [facility] Last Admin: 05/30/18 11:00 Dose: 325 mg Fluoxetine HCl (Prozac Oral Solution -) 20 mg PO DAILY [facility] Last Admin: 05/30/18 11:00 Dose: Not Given Furosemide (Lasix -) 20 mg PO DAILY [facility] Last Admin: 05/30/18 11:00 Dose: 20 mg Ceftriaxone Sodium 1 gm/ (Dextrose) 50 mls @ 100 mls/hr IVPB [facility] Last Admin: 05/29/18 21:32 Dose: 100 mls/hr Insulin Aspart (Novolog Vial Sliding Scale -) 0 - 10 vial SQ [facility]; Protocol Last Admin: 05/30/18 06:02 Dose: Not Given Insulin Detemir (Levemir Vial) 16 units SQ [facility] Last Admin: 05/29/18 21:32 Dose: 16 units Lactobacillus Acidophilus (Bacid -) 1 tab PO TID [facility] Last Admin: 05/30/18 06:03 Dose: 1 tab Lisinopril (Prinivil) 10 mg PO DAILY [facility] Last Admin: 05/30/18 11:00 Dose: 10 mg Loperamide HCl (Imodium -) 2 mg PO DAILY [facility] Last Admin: 05/30/18 11:00 Dose: Not Given Metformin HCl (Glucophage -) 1,000 mg PO BIDAC [facility] Last Admin: 05/30/18 06:02 Dose: Not Given Metoprolol Tartrate (Lopressor -) 75 mg PO TID [facility] Last Admin: 05/30/18 06:03 Dose: 75 mg Pantoprazole Sodium (Protonix -) 40 mg PO DAILY [facility] Last Admin: 05/30/18 11:00 Dose: 40 mg Simethicone (Mylicon -) 80 mg PO TID PRN PRN Reason: GAS Sitagliptin Phosphate (Januvia -) 50 mg PO BIDAC [facility] Last Admin: 05/30/18 06:03 Dose: 50 mg Tamsulosin HCl (Flomax -) 0.4 mg PO DAILY@0830 [facility] Last Admin: 05/30/18 11:00 Dose: 0.4 mg - Objective Vital Signs: Vital Signs Temperature 98.6 F 05/30/18 05:39 Pulse Rate 97 H 05/30/18 05:39 Respiratory Rate 20 05/30/18 05:39 Blood Pressure 155/83 05/30/18 05:39 O2 Sat by Pulse Oximetry (%) 97 05/29/18 21:00 Constitutional: Yes: No Distress, Calm Neck: Yes: Supple Cardiovascular: Yes: Pulse Irregular Respiratory: Yes: Regular, Diminished Gastrointestinal: Yes: Normal Bowel Sounds, Soft Edema: No Labs: CBC, BMP 05/30/18 08:20 05/30/18 08:20 INR, PTT INR 1.59 (0.83-1.09) H 05/28/18 21:40 Problem List - Problems (1) CKD (chronic kidney disease) Code(s): N18.9 - CHRONIC KIDNEY DISEASE, UNSPECIFIED Qualifiers: Chronic kidney disease stage: stage 2 (mild) Qualified Code(s): N18.2 - Chronic kidney disease, stage 2 (mild) (2) Angiodysplasia of colon with hemorrhage Code(s): K55.21 - ANGIODYSPLASIA OF COLON WITH HEMORRHAGE (3) CVA (cerebral vascular accident) Code(s): I63.9 - CEREBRAL INFARCTION, UNSPECIFIED Qualifiers: CVA mechanism: embolism (4) Diastolic dysfunction Code(s): I51.89 - OTHER ILL-DEFINED HEART DISEASES (5) Sick sinus syndrome Code(s): I49.5 - SICK SINUS SYNDROME (6) Splenic infarct Code(s): D73.5 - INFARCTION OF SPLEEN (7) UTI (urinary tract infection) Code(s): N39.0 - URINARY TRACT INFECTION, SITE NOT SPECIFIED Qualifiers: Urinary tract infection type: acute cystitis Hematuria presence: with hematuria Qualified Code(s): N30.01 - Acute cystitis with hematuria (8) Atrial fibrillation Code(s): I48.91 - UNSPECIFIED ATRIAL FIBRILLATION Qualifiers: Atrial fibrillation type: permanent Qualified Code(s): I48.2 - Chronic atrial fibrillation (9) CAD (coronary artery disease) Code(s): I25.10 - ATHSCL HEART DISEASE OF [place] CORONARY ARTERY W/O ANG PCTRS Qualifiers: Coronary Disease-Associated Artery/Lesion type: [place] artery [place] vs. transplanted heart: [place] heart Associated angina: without angina Qualified Code(s): I25.10 - Atherosclerotic heart disease of [place] coronary artery without angina pectoris (10) H/O mitral valve replacement Code(s): Z95.2 - PRESENCE OF PROSTHETIC HEART VALVE (11) HTN (hypertension) Code(s): I10 - ESSENTIAL (PRIMARY) HYPERTENSION Qualifiers: Hypertension type: essential hypertension Qualified Code(s): I10 - Essential (primary) hypertension (12) Hyperlipidemia Code(s): E78.5 - HYPERLIPIDEMIA, UNSPECIFIED Qualifiers: Hyperlipidemia type: pure hypercholesterolemia Qualified Code(s): E78.00 - Pure hypercholesterolemia, unspecified; E78.0 - Pure hypercholesterolemia (13) Pacemaker Code(s): Z95.0 - PRESENCE OF CARDIAC PACEMAKER (14) Gross hematuria Code(s): R31.0 - GROSS HEMATURIA Assessment/Plan 04/30/2018 Echo: Normal LV size and fxn, severe TR RVSP 50-60 mmHg, mild MR 12/17/2016 reveal: 03/2009 acute systolic CHF and AR, R&LHc 90% distal OM1, 60% D1, preserved LV fxn, elevated LVEDP BULMARO severe posterior leaflet prolapse with severe MR->MV annuloplasty repair, afib, sinus arrest->PPM, CAD left alone. [facility] Echo: 06/28/16 normal biventricular fxn, COSMO, mod TR, MV ring Nuc stress 09/13/2016 Anterolateral ischemia/infarct SDS 3 EF 82%, abnl ecg changes 1. Hematuria referable to UTI clearing 2. CAD h/o AR, angina pectoris 3. Permanent AF [id number] score of 9 with h/o splenic infarcts, suspect non- compliance instead of Eliquis failure 4. Anemia likely SB vascular ectasias 5. HTN 6. Hypercholesterolemia 7. DM 8. 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 Mitral valve ring repair 2009 10. Sick sinus syndrome s/p PPM 11. COPD 12. CKD 13. Diastolic dysfunction PLAN: 1. Hold Eliquis 5 mg BID pending hemostasis, empiric abx per C&S and bladder irrigation 2. Given absence of symptoms of acute coronary syndrome, decompensated CHF or malignant arrhythmia, may proceed with cystoscopy from CV-standpoint without further testing if clinically warranted 3. Continue Lipitor 80 qhs, Lopressor 75 tid, and lisinopril 10 qd with uptitration as tolerated as renal fxn stabilized, not on Plavix 75 qd given h/o GI bleed from SB AVM 4. Decrease oral diuretics Lasix 20 qd, and monitor renal function and electrolytes, replete K 5. Sees Dread Cowan of [facility], consider Watchman as outpatient if Eliquis compliance is suboptimal or recurrent bleeding given recurrent embolic events
[2018-05-30] MEDS ORDERED: INSULIN (NOVOLOG) ASPART 100 UNITS/ML 10ML VIAL ONE (18:36)
[2018-05-30] MEDS ORDERED: cefTRIAXone SODIUM 1 GM VIAL ONE (20:53)
[2018-05-30] MEDS ORDERED: DEXTROSE 5%-WATER - 50 ML IVPB ONE (20:53)
[2018-05-30] MEDS: INSULIN (LEVEMIR) 100 UNITS/ML UNITS SQ SCH (21:37)
[2018-05-30] MEDS: CEFTRIAXONE 1 GM in DEXTROSE 5%-WATER - 50 ML IVPB SCH (21:37)
[2018-05-30] MEDS: ATORVASTATIN CA 80 MG TABLET (FP) PO SCH (21:38)
[2018-05-31] MEDS: metFORMIN HCL 500 MG TABLET (FP) PO SCH ×2 (06:37→16:42)
[2018-05-31] MEDS: METOPROLOL TARTRATE 50 MG TABLET (FP) PO SCH ×3 (06:37→23:12)
[2018-05-31] MEDS: LACTOBACILLUS ACIDOPHILUS 1 TABLET PO SCH ×3 (06:37→23:11)
[2018-05-31] MEDS: sitaGLIPtin PHOSPHATE 50 MG TABLET PO SCH ×2 (06:38→16:42)
[2018-05-31] MEDS: INSULIN SLIDING SCALE (NOVOLOG) 1 VIAL SQ SCH ×4 (06:38→23:16)
[2018-05-31 07:06] LABS: HEMOGLOBIN 11.1 GM/dL (10.7-15.3); MCH 26.8 pg (25.7-33.7); MCHC 32.6 g/dl (32.0-36.0); MEAN CELL VOLUME 82.2 fl (80-96); MEAN PLT VOLUME 10.3 fl (7.5-11.1); PLATELET COUNT 166 K/MM3 (134-434); RBC 4.14 M/mm3 (3.60-5.2); RDW 15.5 % (11.6-15.6); WHITE BLOOD COUNT 7.4 K/mm3 (4.0-10.0)
[2018-05-31 07:26] LABS: ANION GAP 6 MMOL/L (8-16); BLOOD UREA NITROGEN 19 mg/dL (7-18); CALCIUM 8.4 mg/dL (8.5-10.1); CHLORIDE 108 mmol/L (98-107); CO2 26 mmol/L (21-32); GLUCOSE,RANDOM 95 mg/dL (74-106); POTASSIUM 3.4 mmol/L (3.5-5.1); SODIUM 140 mmol/L (136-145)
[2018-05-31] MEDS ORDERED: INSULIN (NOVOLOG) ASPART 100 UNITS/ML 10ML VIAL ONE (08:28)
[2018-05-31] MEDS: TAMSULOSIN HCL 0.4 MG CAP PO SCH (09:29)
[2018-05-31] MEDS: ASCORBIC ACID 500 MG TABLET (FP) PO SCH (09:29)
[2018-05-31] MEDS: FERROUS SO4 325 MG TABLET (FP) PO SCH (09:29)
[2018-05-31] MEDS: PANTOPRAZOLE 40 MG TABLET (FP) PO SCH (09:29)
[2018-05-31] MEDS: LISINOPRIL 10 MG TABLET (FP) PO SCH (09:29)
[2018-05-31] MEDS: FUROSEMIDE 20 MG TABLET (FP) PO SCH (09:30)
--- NOTE | 2018-05-31 09:30 | PN ---
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 7d/w - Current Medication List Current Medications: Active Medications Ascorbic Acid (Vitamin C -) 500 mg PO DAILY [facility] Last Admin: 05/31/18 09:29 Dose: 500 mg Atorvastatin Calcium (Lipitor -) 80 mg PO HS [facility] Last Admin: 05/30/18 21:38 Dose: 80 mg Docusate Sodium (Colace -) 100 mg PO BID [facility] Last Admin: 05/30/18 21:38 Dose: 100 mg Ferrous Sulfate (Feosol -) 325 mg PO DAILY@0800 [facility] Last Admin: 05/31/18 09:29 Dose: 325 mg Fluoxetine HCl (Prozac Oral Solution -) 20 mg PO DAILY [facility] Last Admin: 05/30/18 11:00 Dose: Not Given Furosemide (Lasix -) 20 mg PO DAILY [facility] Last Admin: 05/31/18 09:30 Dose: 20 mg Ceftriaxone Sodium 1 gm/ (Dextrose) 50 mls @ 100 mls/hr IVPB [facility] Last Admin: 05/30/18 21:37 Dose: 100 mls/hr Insulin Aspart (Novolog Vial Sliding Scale -) 0 - 10 vial SQ [facility]; Protocol Last Admin: 05/31/18 06:38 Dose: Not Given Insulin Detemir (Levemir Vial) 16 units SQ [facility] Last Admin: 05/30/18 21:37 Dose: 16 units Lactobacillus Acidophilus (Bacid -) 1 tab PO TID [facility] Last Admin: 05/31/18 06:37 Dose: 1 tab Lisinopril (Prinivil) 10 mg PO DAILY [facility] Last Admin: 05/31/18 09:29 Dose: 10 mg Loperamide HCl (Imodium -) 2 mg PO DAILY [facility] Last Admin: 05/30/18 11:00 Dose: Not Given Metformin HCl (Glucophage -) 1,000 mg PO BIDAC [facility] Last Admin: 05/31/18 06:37 Dose: 1,000 mg Metoprolol Tartrate (Lopressor -) 75 mg PO TID [facility] Last Admin: 05/31/18 06:37 Dose: 75 mg Pantoprazole Sodium (Protonix -) 40 mg PO DAILY [facility] Last Admin: 05/31/18 09:29 Dose: 40 mg Potassium Chloride (K-Dur -) 10 meq PO DAILY [facility] Simethicone (Mylicon -) 80 mg PO TID PRN PRN Reason: GAS Sitagliptin Phosphate (Januvia -) 50 mg PO BIDAC [facility] Last Admin: 05/31/18 06:38 Dose: 50 mg Tamsulosin HCl (Flomax -) 0.4 mg PO DAILY@0830 [facility] Last Admin: 05/31/18 09:29 Dose: 0.4 mg - Objective Vital Signs: Vital Signs Temperature 97.6 F 05/31/18 05:14 Pulse Rate 88 05/31/18 05:14 Respiratory Rate 18 05/31/18 05:14 Blood Pressure 132/97 05/31/18 05:14 O2 Sat by Pulse Oximetry (%) 97 05/30/18 21:00 Constitutional: Yes: No Distress, Calm Eyes: Yes: Conjunctiva Clear HENT: Yes: Atraumatic Neck: Yes: Supple Cardiovascular: No: Regular Rate and Rhythm Respiratory: Yes: CTA Bilaterally Gastrointestinal: Yes: Soft. No: Tenderness Genitourinary: Yes: [place] Present. No: Hematuria Musculoskeletal: No: Back Pain Extremities: No: Cold, Cool, Cyanosis Edema: No Integumentary: No: Rash, Venous Stasis Changes Neurological: Yes: Alert ...Motor Strength: RUE (weak), RLE (weak) Psychiatric: Yes: Alert. No: Agitated Labs: CBC, BMP 05/31/18 05:30 05/31/18 05:30 INR, PTT INR 1.59 (0.83-1.09) H 05/28/18 21:40 - ....Imaging Other: Report Reviewed Assessment/Plan Patient is a 78 year old female with underlying history of CVA with right sided residual weakness, type 2 DM, hypercholesterolemia, AF on Eliquis with recent splenic infarcts, HTN, CAD, angina, history of mitral valve ring repair, sick sinus syndrome s/p PPM and COPD admitted with gross hematuria, craven inserted, UCx c/w UTI on IV ceftriaxone hematuria cleared; seen by , US renal unremarkable restart eliquis; risk of hematuria while on AC and CVA while off AC d/w pt and daughter at beside they are aware cardio and f/u UCx final report PT rehab; decubs aspiration PFX d/w pt and daughter prognosis guarded will call PMD dr Maher; pt will need close f/u neurology for CVA, cardiology , and PMD after DC from H d/w pt and daughter
[2018-05-31] MEDS: FLUoxetine HCL 20 MG/5 ML 120 BOTTLE PO SCH (09:32)
[2018-05-31] MEDS: LOPERAMIDE HCL 2 MG CAPSULE PO SCH (09:32)
[2018-05-31] MEDS: DOCUSATE SODIUM 100 MG CAPSULE (FP) PO SCH ×2 (09:34→23:11)
[2018-05-31] MEDS: POTASSIUM CHLORIDE TABS 10 MEQ TABLET.ER (FP) PO SCH (10:48)
--- NOTE | 2018-05-31 13:03 | PN ---
Progress Note, Physician History of Present Illness: Hematuria cleared, ambulating tenuously with walker assistance. - Current Medication List Current Medications: Active Medications Apixaban (Eliquis -) 5 mg PO BID [facility] Ascorbic Acid (Vitamin C -) 500 mg PO DAILY [facility] Last Admin: 05/31/18 09:29 Dose: 500 mg Atorvastatin Calcium (Lipitor -) 80 mg PO HS [facility] Last Admin: 05/30/18 21:38 Dose: 80 mg Docusate Sodium (Colace -) 100 mg PO BID [facility] Last Admin: 05/31/18 09:34 Dose: 100 mg Ferrous Sulfate (Feosol -) 325 mg PO DAILY@0800 [facility] Last Admin: 05/31/18 09:29 Dose: 325 mg Fluoxetine HCl (Prozac Oral Solution -) 20 mg PO DAILY [facility] Last Admin: 05/31/18 09:32 Dose: Not Given Furosemide (Lasix -) 20 mg PO DAILY [facility] Last Admin: 05/31/18 09:30 Dose: 20 mg Ceftriaxone Sodium 1 gm/ (Dextrose) 50 mls @ 100 mls/hr IVPB [facility] Last Admin: 05/30/18 21:37 Dose: 100 mls/hr Insulin Aspart (Novolog Vial Sliding Scale -) 0 - 10 vial SQ [facility]; Protocol Last Admin: 05/31/18 10:54 Dose: Not Given Insulin Detemir (Levemir Vial) 16 units SQ [facility] Last Admin: 05/30/18 21:37 Dose: 16 units Lactobacillus Acidophilus (Bacid -) 1 tab PO TID [facility] Last Admin: 05/31/18 06:37 Dose: 1 tab Lisinopril (Prinivil) 10 mg PO DAILY [facility] Last Admin: 05/31/18 09:29 Dose: 10 mg Loperamide HCl (Imodium -) 2 mg PO DAILY [facility] Last Admin: 05/31/18 09:32 Dose: Not Given Metformin [facility] ([facility] -) [facility] Last Admin: 05/31/18 06:37 Dose: 1,000 mg Metoprolol Tartrate (Lopressor -) 75 mg PO TID [facility] Last Admin: 05/31/18 06:37 Dose: 75 mg Pantoprazole Sodium (Protonix -) 40 mg PO DAILY [facility] Last Admin: 05/31/18 09:29 Dose: 40 mg Potassium Chloride (K-Dur -) 10 meq PO DAILY [facility] Last Admin: 05/31/18 10:48 Dose: 10 meq Simethicone (Mylicon -) 80 mg PO TID PRN PRN Reason: GAS Sitagliptin Phosphate (Januvia -) 50 mg PO BIDAC [facility] Last Admin: 05/31/18 06:38 Dose: 50 mg Tamsulosin HCl (Flomax -) 0.4 mg PO DAILY@0830 [facility] Last Admin: 05/31/18 09:29 Dose: 0.4 mg - Objective Vital Signs: Vital Signs Temperature 98.5 F 05/31/18 09:35 Pulse Rate 94 H 05/31/18 09:35 Respiratory Rate 18 05/31/18 09:35 Blood Pressure 136/76 05/31/18 09:35 O2 Sat by Pulse Oximetry (%) 95 05/31/18 09:00 Constitutional: Yes: No Distress, Calm, Thin Neck: Yes: Supple Cardiovascular: Yes: Regular Rate and Rhythm Respiratory: Yes: Regular, Diminished Gastrointestinal: Yes: Normal Bowel Sounds, Soft Genitourinary: Yes: [place] Present Edema: No Labs: CBC, BMP 05/31/18 05:30 05/31/18 05:30 INR, PTT INR 1.59 (0.83-1.09) H 05/28/18 21:40 Problem List - Problems (1) CKD (chronic kidney disease) Code(s): N18.9 - CHRONIC KIDNEY DISEASE, UNSPECIFIED Qualifiers: Chronic kidney disease stage: stage 2 (mild) Qualified Code(s): N18.2 - Chronic kidney disease, stage 2 (mild) (2) Angiodysplasia of colon with hemorrhage Code(s): K55.21 - ANGIODYSPLASIA OF COLON WITH HEMORRHAGE (3) CVA (cerebral vascular accident) Code(s): I63.9 - CEREBRAL INFARCTION, UNSPECIFIED Qualifiers: CVA mechanism: embolism (4) Diastolic dysfunction Code(s): I51.89 - OTHER ILL-DEFINED HEART DISEASES (5) Sick sinus syndrome Code(s): I49.5 - SICK SINUS SYNDROME (6) Splenic infarct Code(s): D73.5 - INFARCTION OF SPLEEN (7) UTI (urinary tract infection) Code(s): N39.0 - URINARY TRACT INFECTION, SITE NOT SPECIFIED Qualifiers: Urinary tract infection type: acute cystitis Hematuria presence: with hematuria Qualified Code(s): N30.01 - Acute cystitis with hematuria (8) Atrial fibrillation Code(s): I48.91 - UNSPECIFIED ATRIAL FIBRILLATION Qualifiers: Atrial fibrillation type: permanent Qualified Code(s): I48.2 - Chronic atrial fibrillation (9) CAD (coronary artery disease) Code(s): I25.10 - ATHSCL HEART DISEASE OF [place] CORONARY ARTERY W/O ANG PCTRS Qualifiers: Coronary Disease-Associated Artery/Lesion type: [place] artery [place] vs. transplanted heart: [place] heart Associated angina: without angina Qualified Code(s): I25.10 - Atherosclerotic heart disease of [place] coronary artery without angina pectoris (10) H/O mitral valve replacement Code(s): Z95.2 - PRESENCE OF PROSTHETIC HEART VALVE (11) HTN (hypertension) Code(s): I10 - ESSENTIAL (PRIMARY) HYPERTENSION Qualifiers: Hypertension type: essential hypertension Qualified Code(s): I10 - Essential (primary) hypertension (12) Hyperlipidemia Code(s): E78.5 - HYPERLIPIDEMIA, UNSPECIFIED Qualifiers: Hyperlipidemia type: pure hypercholesterolemia Qualified Code(s): E78.00 - Pure hypercholesterolemia, unspecified; E78.0 - Pure hypercholesterolemia (13) Pacemaker Code(s): Z95.0 - PRESENCE OF CARDIAC PACEMAKER (14) Gross hematuria Code(s): R31.0 - GROSS HEMATURIA Assessment/Plan 04/30/2018 Echo: Normal LV size and fxn, severe TR RVSP 50-60 mmHg, mild MR 12/17/2016 reveal: 03/2009 acute systolic CHF and [place], R&LHc 90% distal OM1, 60% D1, preserved LV fxn, elevated LVEDP BULMARO severe posterior leaflet prolapse with severe MR->MV annuloplasty repair, afib, sinus arrest->PPM, CAD left alone. [facility] Echo: 06/28/16 normal biventricular fxn, COSMO, mod TR, MV ring Nuc stress 09/13/2016 Anterolateral ischemia/infarct SDS 3 EF 82%, abnl ecg changes 1. Hematuria referable to Klebsiella UTI clearing 2. CAD h/o TN, angina pectoris 3. Permanent AF [id number] score of 9 with h/o splenic infarcts, suspect non- compliance instead of Eliquis failure 4. Anemia likely [place] vascular ectasias 5. HTN 6. Hypercholesterolemia 7. DM 8. 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 Mitral valve ring repair 2009 10. Sick sinus syndrome s/p PPM 11. COPD 12. CKD 13. Diastolic dysfunction PLAN: 1. Resumed Eliquis 5 mg BID given hemostasis, complete abx per C&S 2. Continue Lipitor 80 qhs, Lopressor 75 tid, and lisinopril 10 qd with uptitration as tolerated as renal fxn stabilized, not on Plavix 75 qd given h/o GI bleed from SB AVM 3. Decrease oral diuretics Lasix 20 qd, and monitor renal function and electrolytes, replete K 4. Sees Dread Cowan of [facility], consider Watch[facility] as outpatient if Eliquis compliance is suboptimal or recurrent bleeding given recurrent embolic events
[2018-05-31] MEDS ORDERED: PT OWN MED DRAWER 7, Y5N ONE ×2 (22:02→22:46)
[2018-05-31] MEDS ORDERED: cefTRIAXone SODIUM 1 GM VIAL ONE (22:02)
[2018-05-31] MEDS ORDERED: DEXTROSE 5%-WATER - 50 ML IVPB ONE (22:03)
[2018-05-31] MEDS: CEFTRIAXONE 1 GM in DEXTROSE 5%-WATER - 50 ML IVPB SCH (23:11)
[2018-05-31] MEDS: ATORVASTATIN CA 80 MG TABLET (FP) PO SCH (23:11)
[2018-05-31] MEDS: APIXABAN 5 MG TABLET PO SCH (23:14)
[2018-05-31] MEDS: INSULIN (LEVEMIR) 100 UNITS/ML UNITS SQ SCH (23:14)
[2018-06-01] MEDS: LACTOBACILLUS ACIDOPHILUS 1 TABLET PO SCH ×3 (05:42→22:18)
[2018-06-01] MEDS: METOPROLOL TARTRATE 50 MG TABLET (FP) PO SCH ×3 (05:42→22:21)
[2018-06-01] MEDS: INSULIN SLIDING SCALE (NOVOLOG) 1 VIAL SQ SCH ×4 (06:11→22:22)
[2018-06-01] MEDS: metFORMIN HCL 500 MG TABLET (FP) PO SCH ×2 (06:11→17:41)
[2018-06-01] MEDS: sitaGLIPtin PHOSPHATE 50 MG TABLET PO SCH ×2 (06:11→17:42)
[2018-06-01] MEDS ORDERED: PT OWN MED DRAWER 7, Y5N ONE ×3 (06:16→21:58)
[2018-06-01 07:03] LABS: BASO % 0.6 % (0-2.0); EOS % 5.5 % (0-4.5); HEMATOCRIT 34.6 % (32.4-45.2); HEMOGLOBIN 11.1 GM/dL (10.7-15.3); LYMPH % 28.7 % (8-40); MCH 26.2 pg (25.7-33.7); MCHC 32.1 g/dl (32.0-36.0); MEAN CELL VOLUME 81.4 fl (80-96); MEAN PLT VOLUME 10.1 fl (7.5-11.1); MONO % 6.6 % (3.8-10.2); NEUT % 58.6 % (42.8-82.8); PLATELET COUNT 162 K/MM3 (134-434); RBC 4.25 M/mm3 (3.60-5.2); RDW 16.1 % (11.6-15.6); WHITE BLOOD COUNT 6.1 K/mm3 (4.0-10.0)
[2018-06-01 07:30] LABS: ALBUMIN 2.9 g/dl (3.4-5.0); ALK PHOS 144 U/L (45-117); ANION GAP 7 MMOL/L (8-16); BILIRUBIN,TOTAL 0.3 mg/dL (0.2-1); BLOOD UREA NITROGEN 20 mg/dL (7-18); CALCIUM 8.5 mg/dL (8.5-10.1); CHLORIDE 107 mmol/L (98-107); CO2 30 mmol/L (21-32); GLUCOSE,RANDOM 101 mg/dL (74-106); POTASSIUM 3.6 mmol/L (3.5-5.1); SGOT/AST 43 U/L (15-37); SGPT/ALT 32 U/L (13-61); SODIUM 144 mmol/L (136-145); TOT PROT 5.7 g/dl (6.4-8.2)
--- NOTE | 2018-06-01 08:47 | PN ---
Progress Note, Physician Chief Complaint: OOB to WC feeling better DC Bernard; no hematuria; watch for retention; diarrhea today no abdominal pain; was on colace prn, held; is on ATB, will check for CDiff d/w pt' s at bedside - Current Medication List Current Medications: Active Medications Apixaban (Eliquis -) 5 mg PO BID [facility] Last Admin: 05/31/18 23:14 Dose: 5 mg Ascorbic Acid (Vitamin C -) 500 mg PO DAILY [facility] Last Admin: 05/31/18 09:29 Dose: 500 mg Atorvastatin Calcium (Lipitor -) 80 mg PO HS [facility] Last Admin: 05/31/18 23:11 Dose: 80 mg Docusate Sodium (Colace -) 100 mg PO BID [facility] Last Admin: 05/31/18 23:11 Dose: 100 mg Ferrous Sulfate (Feosol -) 325 mg PO DAILY@0800 [facility] Last Admin: 05/31/18 09:29 Dose: 325 mg Fluoxetine HCl (Prozac Oral Solution -) 20 mg PO DAILY [facility] Last Admin: 05/31/18 09:32 Dose: Not Given Furosemide (Lasix -) 20 mg PO DAILY [facility] Last Admin: 05/31/18 09:30 Dose: 20 mg Ceftriaxone Sodium 1 gm/ (Dextrose) 50 mls @ 100 mls/hr IVPB [facility] Last Admin: 05/31/18 23:11 Dose: 100 mls/hr Insulin Aspart (Novolog Vial Sliding Scale -) 0 - 10 vial SQ [facility]; Protocol Last Admin: 06/01/18 06:11 Dose: Not Given Insulin Detemir (Levemir Vial) 16 units SQ [facility] Last Admin: 05/31/18 23:14 Dose: 16 units Lactobacillus Acidophilus (Bacid -) 1 tab PO TID [facility] Last Admin: 06/01/18 05:42 Dose: 1 tab Lisinopril (Prinivil) 10 mg PO DAILY [facility] Last Admin: 05/31/18 09:29 Dose: 10 mg Loperamide HCl (Imodium -) 2 mg PO DAILY [facility] Last Admin: 05/31/18 09:32 Dose: Not Given [facility]formin [facility] ([facility] -) [facility] Last Admin: 06/01/18 06:11 Dose: 1,000 mg Metoprolol Tartrate (Lopressor -) 75 mg PO TID [facility] Last Admin: 06/01/18 05:42 Dose: 75 mg Pantoprazole Sodium (Protonix -) 40 mg PO DAILY [facility] Last Admin: 05/31/18 09:29 Dose: 40 mg Potassium Chloride (K-Dur -) 10 meq PO DAILY [facility] Last Admin: 05/31/18 10:48 Dose: 10 meq Simethicone (Mylicon -) 80 mg PO TID PRN PRN Reason: GAS Sitagliptin Phosphate (Januvia -) 50 mg PO BIDAC [facility] Last Admin: 06/01/18 06:11 Dose: 50 mg Tamsulosin HCl (Flomax -) 0.4 mg PO DAILY@0830 [facility] Last Admin: 05/31/18 09:29 Dose: 0.4 mg - Objective Vital Signs: Vital Signs Temperature 98.2 F 06/01/18 05:51 Pulse Rate 69 06/01/18 05:51 Respiratory Rate 20 06/01/18 05:51 Blood Pressure 151/73 06/01/18 05:51 O2 Sat by Pulse Oximetry (%) 95 05/31/18 21:00 Constitutional: Yes: No Distress, Calm Eyes: Yes: Conjunctiva Clear HENT: Yes: Atraumatic Neck: Yes: Supple Cardiovascular: Yes: Regular Rate and Rhythm Respiratory: Yes: CTA Bilaterally Gastrointestinal: Yes: Soft Genitourinary: No: Hematuria Musculoskeletal: No: Joint Stiffness, Joint Swelling Extremities: No: Cold, Cool, Cyanosis Edema: No Integumentary: No: Rash, Venous Stasis Changes Neurological: Yes: Alert ...Motor Strength: RUE (weakness, old), RLE (weakness, old) Psychiatric: Yes: Alert. No: Agitated, Suicidal Ideation Labs: CBC, BMP 06/01/18 06:00 06/01/18 06:00 INR, PTT INR 1.59 (0.83-1.09) H 05/28/18 21:40 - ....Imaging Other: Report Reviewed Assessment/Plan Patient is a 78 year old female with underlying history of CVA with right sided residual weakness, type 2 DM, hypercholesterolemia, AF on Eliquis with recent splenic infarcts, HTN, CAD, angina, history of mitral valve ring repair, sick sinus syndrome s/p PPM and COPD admitted with gross hematuria, and UTI on IV ceftriaxone hematuria cleared; DC Bernard seen by , US renal unremarkable restart eliquis; risk of hematuria while on AC and CVA while off AC d/w pt and at beside they are aware cardio and f/u diarrhea: check stools for CDiff; will need GI f/u outpt PT rehab; decubs aspiration PFX d/w pt and prognosis guarded called PMD dr Maher; pt will need close f/u neurology for CVA, cardiology, and PMD after DC from H d/w pt and at bedside
[2018-06-01] MEDS: TAMSULOSIN HCL 0.4 MG CAP PO SCH (09:09)
[2018-06-01] MEDS: DOCUSATE SODIUM 100 MG CAPSULE (FP) PO SCH ×3 (09:09→22:19)
[2018-06-01] MEDS: ASCORBIC ACID 500 MG TABLET (FP) PO SCH (09:09)
[2018-06-01] MEDS: LOPERAMIDE HCL 2 MG CAPSULE PO SCH (09:10)
[2018-06-01] MEDS: FERROUS SO4 325 MG TABLET (FP) PO SCH (09:10)
[2018-06-01] MEDS: APIXABAN 5 MG TABLET PO SCH ×2 (09:10→23:30)
[2018-06-01] MEDS: FUROSEMIDE 20 MG TABLET (FP) PO SCH (09:10)
[2018-06-01] MEDS: POTASSIUM CHLORIDE TABS 10 MEQ TABLET.ER (FP) PO SCH (09:10)
[2018-06-01] MEDS: PANTOPRAZOLE 40 MG TABLET (FP) PO SCH (09:10)
[2018-06-01] MEDS: LISINOPRIL 10 MG TABLET (FP) PO SCH (09:10)
[2018-06-01] MEDS: FLUoxetine HCL 20 MG/5 ML 120 BOTTLE PO SCH (09:11)
[2018-06-01] MEDS ORDERED: cefTRIAXone SODIUM 1 GM VIAL ONE (21:58)
[2018-06-01] MEDS ORDERED: DEXTROSE 5%-WATER - 50 ML IVPB ONE (21:58)
[2018-06-01] MEDS: INSULIN (LEVEMIR) 100 UNITS/ML UNITS SQ SCH (22:19)
[2018-06-01] MEDS: ATORVASTATIN CA 80 MG TABLET (FP) PO SCH (22:20)
[2018-06-01] MEDS: CEFTRIAXONE 1 GM in DEXTROSE 5%-WATER - 50 ML IVPB SCH (22:22)
[2018-06-02] MEDS: LACTOBACILLUS ACIDOPHILUS 1 TABLET PO SCH ×3 (05:48→21:47)
[2018-06-02] MEDS: METOPROLOL TARTRATE 50 MG TABLET (FP) PO SCH ×3 (05:50→21:47)
[2018-06-02] MEDS: sitaGLIPtin PHOSPHATE 50 MG TABLET PO SCH ×2 (06:05→16:09)
[2018-06-02] MEDS: metFORMIN HCL 500 MG TABLET (FP) PO SCH ×2 (06:05→16:09)
[2018-06-02] MEDS: INSULIN SLIDING SCALE (NOVOLOG) 1 VIAL SQ SCH ×4 (06:05→21:46)
[2018-06-02 07:59] LABS: BASO % 0.6 % (0-2.0); EOS % 5.5 % (0-4.5); HEMATOCRIT 35.7 % (32.4-45.2); HEMOGLOBIN 11.2 GM/dL (10.7-15.3); LYMPH % 27.2 % (8-40); MCH 25.6 pg (25.7-33.7); MCHC 31.3 g/dl (32.0-36.0); MEAN CELL VOLUME 81.9 fl (80-96); MEAN PLT VOLUME 9.6 fl (7.5-11.1); MONO % 8.2 % (3.8-10.2); NEUT % 58.5 % (42.8-82.8); PLATELET COUNT 174 K/MM3 (134-434); RBC 4.36 M/mm3 (3.60-5.2); RDW 16.2 % (11.6-15.6); WHITE BLOOD COUNT 6.1 K/mm3 (4.0-10.0)
[2018-06-02 08:27] LABS: ALBUMIN 2.8 g/dl (3.4-5.0); ALK PHOS 143 U/L (45-117); ANION GAP 5 MMOL/L (8-16); BILIRUBIN,TOTAL 0.5 mg/dL (0.2-1); BLOOD UREA NITROGEN 17 mg/dL (7-18); CALCIUM 8.7 mg/dL (8.5-10.1); CHLORIDE 109 mmol/L (98-107); CO2 28 mmol/L (21-32); CREATININE 0.9 mg/dL (0.55-1.3); GLUCOSE,RANDOM 102 mg/dL (74-106); SGOT/AST 31 U/L (15-37); SGPT/ALT 32 U/L (13-61); SODIUM 143 mmol/L (136-145); TOT PROT 5.8 g/dl (6.4-8.2)
[2018-06-02] MEDS: FERROUS SO4 325 MG TABLET (FP) PO SCH (09:30)
[2018-06-02] MEDS: FUROSEMIDE 20 MG TABLET (FP) PO SCH (09:30)
[2018-06-02] MEDS: PANTOPRAZOLE 40 MG TABLET (FP) PO SCH (09:30)
[2018-06-02] MEDS: APIXABAN 5 MG TABLET PO SCH ×2 (09:30→21:47)
[2018-06-02] MEDS: FLUoxetine HCL 20 MG CAPSULE (FP) PO SCH (09:30)
[2018-06-02] MEDS: ASCORBIC ACID 500 MG TABLET (FP) PO SCH (09:30)
[2018-06-02] MEDS: TAMSULOSIN HCL 0.4 MG CAP PO SCH (09:30)
[2018-06-02] MEDS: POTASSIUM CHLORIDE TABS 10 MEQ TABLET.ER (FP) PO SCH (09:31)
[2018-06-02] MEDS: LISINOPRIL 10 MG TABLET (FP) PO SCH (09:31)
[2018-06-02] MEDS: DOCUSATE SODIUM 100 MG CAPSULE (FP) PO SCH (09:31)
--- NOTE | 2018-06-02 09:47 | PN ---
Progress Note, Physician History of Present Illness: Pt w/o fever, chills. Pt with watery BM now; pt had another BM couple of hours earlier. Pt w/o SOB, CP, palpitations. Pt's nurse is at bedside. De [place] was removed - Current Medication List Current Medications: Active Medications Apixaban (Eliquis -) 5 mg PO BID [facility] Last Admin: 06/02/18 09:30 Dose: 5 mg Ascorbic Acid (Vitamin C -) 500 mg PO DAILY [facility] Last Admin: 06/02/18 09:30 Dose: 500 mg Atorvastatin Calcium (Lipitor -) 80 mg PO HS [facility] Last Admin: 06/01/18 22:20 Dose: 80 mg Ferrous Sulfate (Feosol -) 325 mg PO DAILY@0800 [facility] Last Admin: 06/02/18 09:30 Dose: 325 mg Fluoxetine HCl (Prozac -) 20 mg PO DAILY [facility] Last Admin: 06/02/18 09:30 Dose: 20 mg Furosemide (Lasix -) 20 mg PO DAILY [facility] Last Admin: 06/02/18 09:30 Dose: 20 mg Ceftriaxone Sodium 1 gm/ (Dextrose) 50 mls @ 100 mls/hr IVPB [facility] Last Admin: 06/01/18 22:22 Dose: 100 mls/hr Insulin Aspart (Novolog Vial Sliding Scale -) 0 - 10 vial SQ [facility]; Protocol Last Admin: 06/02/18 06:05 Dose: Not Given Insulin Detemir (Levemir Vial) 12 units SQ [facility] Last Admin: 06/01/18 22:19 Dose: 12 unit Lactobacillus Acidophilus (Bacid -) 1 tab PO TID [facility] Last Admin: 06/02/18 05:48 Dose: 1 tab Lisinopril (Prinivil) 10 mg PO DAILY [facility] Last Admin: 06/02/18 09:31 Dose: 10 mg Loperamide HCl (Imodium -) 2 mg PO DAILY [facility] Last Admin: 06/01/18 09:10 Dose: Not Given Metformin HCl (Glucophage -) 1,000 mg PO BIDAC [facility] Last Admin: 06/02/18 06:05 Dose: 1,000 mg Metoprolol Tartrate (Lopressor -) 75 mg PO TID [facility] Last Admin: 06/02/18 05:50 Dose: 75 mg Pantoprazole Sodium (Protonix -) 40 mg PO DAILY [facility] Last Admin: 06/02/18 09:30 Dose: 40 mg Potassium Chloride (K-Dur -) 10 meq PO DAILY [facility] Last Admin: 06/02/18 09:31 Dose: 10 meq Simethicone (Mylicon -) 80 mg PO TID PRN PRN Reason: GAS Sitagliptin Phosphate (Januvia -) 50 mg PO BIDAC [facility] Last Admin: 06/02/18 06:05 Dose: 50 mg Tamsulosin HCl (Flomax -) 0.4 mg PO DAILY@0830 [facility] Last Admin: 06/02/18 09:30 Dose: 0.4 mg - Objective Vital Signs: Vital Signs Temperature 98.2 F 06/02/18 05:22 Pulse Rate 69 06/02/18 05:22 Respiratory Rate 20 06/02/18 05:22 Blood Pressure 135/79 06/02/18 05:22 O2 Sat by Pulse Oximetry (%) 96 06/01/18 21:00 Constitutional: Yes: No Distress, Calm Cardiovascular: Yes: Regular Rate and Rhythm, S1, S2 Respiratory: Yes: Regular, CTA Bilaterally. No: Rhonchi Gastrointestinal: Yes: Normal Bowel Sounds, Soft. No: Hepatomegaly, Tenderness , Tenderness, Rebound Edema: No Neurological: Yes: Alert, Oriented Labs: CBC, BMP 06/02/18 07:15 06/02/18 07:15 INR, PTT INR 1.59 (0.83-1.09) H 05/28/18 21:40 Problem List - Problems (1) Acute hemorrhagic cystitis Code(s): N30.01 - ACUTE CYSTITIS WITH HEMATURIA (2) CVA (cerebral vascular accident) Code(s): I63.9 - CEREBRAL INFARCTION, UNSPECIFIED Qualifiers: CVA mechanism: embolism (3) CAD (coronary artery disease) Code(s): I25.10 - ATHSCL HEART DISEASE OF [place] CORONARY ARTERY W/O ANG PCTRS Qualifiers: Coronary Disease-Associated Artery/Lesion type: [place] artery [place] vs. transplanted heart: [place] heart Associated angina: without angina Qualified Code(s): I25.10 - Atherosclerotic heart disease of [place] coronary artery without angina pectoris (4) Diabetes mellitus Code(s): E11.9 - TYPE 2 DIABETES MELLITUS WITHOUT COMPLICATIONS Qualifiers: Diabetes mellitus type: type 2 Diabetes mellitus intermediate project manager insulin use: without prison use Diabetes mellitus complication status: without complication Qualified Code(s): E11.9 - Type 2 diabetes mellitus without complications (5) HTN (hypertension) Code(s): I10 - ESSENTIAL (PRIMARY) HYPERTENSION Qualifiers: Hypertension type: essential hypertension Qualified Code(s): I10 - Essential (primary) hypertension (6) A-fib Code(s): I48.91 - UNSPECIFIED ATRIAL FIBRILLATION (7) Constipation Code(s): K59.00 - CONSTIPATION, UNSPECIFIED (8) Abdominal gas pain Code(s): R14.1 - GAS PAIN (9) Diarrhea Assessment/Plan: send C diff (I spoke with pt's nurse) Code(s): R19.7 - DIARRHEA, UNSPECIFIED Assessment/Plan IV Ceftriaxone Cardio and consults are appreciated Pt was started on AC. Send C Diff. (last Colace yesterday morning). To monitor BM AM labs Case was d/w pt's nurse. Pt's condition was reviewed with her , all questions were answered.
--- NOTE | 2018-06-02 11:06 | PN ---
Progress Note, Physician History of Present Illness: Hematuria cleared, ambulating tenuously with walker assistance. Jonnathan kim/nataliya. - Current Medication List Current Medications: Active Medications Apixaban (Eliquis -) 5 mg PO BID [facility] Last Admin: 06/02/18 09:30 Dose: 5 mg Ascorbic Acid (Vitamin C -) 500 mg PO DAILY [facility] Last Admin: 06/02/18 09:30 Dose: 500 mg Atorvastatin Calcium (Lipitor -) 80 mg PO HS [facility] Last Admin: 06/01/18 22:20 Dose: 80 mg Ferrous Sulfate (Feosol -) 325 mg PO DAILY@0800 [facility] Last Admin: 06/02/18 09:30 Dose: 325 mg Fluoxetine HCl (Prozac -) 20 mg PO DAILY [facility] Last Admin: 06/02/18 09:30 Dose: 20 mg Furosemide (Lasix -) 20 mg PO DAILY [facility] Last Admin: 06/02/18 09:30 Dose: 20 mg Ceftriaxone Sodium 1 gm/ (Dextrose) 50 mls @ 100 mls/hr IVPB [facility] Last Admin: 06/01/18 22:22 Dose: 100 mls/hr Insulin Aspart (Novolog Vial Sliding Scale -) 0 - 10 vial SQ [facility]; Protocol Last Admin: 06/02/18 06:05 Dose: Not Given Insulin Detemir (Levemir Vial) 12 units SQ [facility] Last Admin: 06/01/18 22:19 Dose: 12 unit Lactobacillus Acidophilus (Bacid -) 1 tab PO TID [facility] Last Admin: 06/02/18 05:48 Dose: 1 tab Lisinopril (Prinivil) 10 mg PO DAILY [facility] Last Admin: 06/02/18 09:31 Dose: 10 mg Loperamide HCl (Imodium -) 2 mg PO DAILY [facility] Last Admin: 06/01/18 09:10 Dose: Not Given Metformin HCl (Glucophage -) 1,000 mg PO BIDAC [facility] Last Admin: 06/02/18 06:05 Dose: 1,000 mg Metoprolol Tartrate (Lopressor -) 75 mg PO TID [facility] Last Admin: 06/02/18 05:50 Dose: 75 mg Pantoprazole Sodium (Protonix -) 40 mg PO DAILY [facility] Last Admin: 06/02/18 09:30 Dose: 40 mg Potassium Chloride (K-Dur -) 10 meq PO DAILY [facility] Last Admin: 06/02/18 09:31 Dose: 10 meq Simethicone (Mylicon -) 80 mg PO TID PRN PRN Reason: GAS Sitagliptin Phosphate (Januvia -) 50 mg PO BIDAC [facility] Last Admin: 06/02/18 06:05 Dose: 50 mg Tamsulosin HCl (Flomax -) 0.4 mg PO DAILY@0830 [facility] Last Admin: 06/02/18 09:30 Dose: 0.4 mg - Objective Vital Signs: Vital Signs Temperature 98.2 F 06/02/18 05:22 Pulse Rate 69 06/02/18 05:22 Respiratory Rate 20 06/02/18 05:22 Blood Pressure 135/79 06/02/18 05:22 O2 Sat by Pulse Oximetry (%) 96 06/01/18 21:00 Constitutional: Yes: No Distress, Calm, Thin Neck: Yes: Supple Cardiovascular: Yes: Pulse Irregular, Murmur Respiratory: Yes: Regular, Diminished, On Nasal O2 Gastrointestinal: Yes: Normal Bowel Sounds, Soft Edema: No Labs: CBC, BMP 06/02/18 07:15 06/02/18 07:15 INR, PTT INR 1.59 (0.83-1.09) H 05/28/18 21:40 Problem List - Problems (1) CKD (chronic kidney disease) Code(s): N18.9 - CHRONIC KIDNEY DISEASE, UNSPECIFIED Qualifiers: Chronic kidney disease stage: stage 2 (mild) Qualified Code(s): N18.2 - Chronic kidney disease, stage 2 (mild) (2) Angiodysplasia of colon with hemorrhage Code(s): K55.21 - ANGIODYSPLASIA OF COLON WITH HEMORRHAGE (3) CVA (cerebral vascular accident) Code(s): I63.9 - CEREBRAL INFARCTION, UNSPECIFIED Qualifiers: CVA mechanism: embolism (4) Diastolic dysfunction Code(s): I51.89 - OTHER ILL-DEFINED HEART DISEASES (5) Sick sinus syndrome Code(s): I49.5 - SICK SINUS SYNDROME (6) Splenic infarct Code(s): D73.5 - INFARCTION OF SPLEEN (7) UTI (urinary tract infection) Code(s): N39.0 - URINARY TRACT INFECTION, SITE NOT SPECIFIED Qualifiers: Urinary tract infection type: acute cystitis Hematuria presence: with hematuria Qualified Code(s): N30.01 - Acute cystitis with hematuria (8) Atrial fibrillation Code(s): I48.91 - UNSPECIFIED ATRIAL FIBRILLATION Qualifiers: Atrial fibrillation type: permanent Qualified Code(s): I48.2 - Chronic atrial fibrillation (9) CAD (coronary artery disease) Code(s): I25.10 - ATHSCL HEART DISEASE OF [place] CORONARY ARTERY W/O ANG PCTRS Qualifiers: Coronary Disease-Associated Artery/Lesion type: [place] artery [place] vs. transplanted heart: [place] heart Associated angina: without angina Qualified Code(s): I25.10 - Atherosclerotic heart disease of [place] coronary artery without angina pectoris (10) H/O mitral valve replacement Code(s): Z95.2 - PRESENCE OF PROSTHETIC HEART VALVE (11) HTN (hypertension) Code(s): I10 - ESSENTIAL (PRIMARY) HYPERTENSION Qualifiers: Hypertension type: essential hypertension Qualified Code(s): I10 - Essential (primary) hypertension (12) Hyperlipidemia Code(s): E78.5 - HYPERLIPIDEMIA, UNSPECIFIED Qualifiers: Hyperlipidemia type: pure hypercholesterolemia Qualified Code(s): E78.00 - Pure hypercholesterolemia, unspecified; E78.0 - Pure hypercholesterolemia (13) Pacemaker Code(s): Z95.0 - PRESENCE OF CARDIAC PACEMAKER (14) Gross hematuria Code(s): R31.0 - GROSS HEMATURIA Assessment/Plan 04/30/2018 Echo: Normal LV size and fxn, severe TR RVSP 50-60 mmHg, mild MR 12/17/2016 reveal: 03/2009 acute systolic CHF and CA, R&LHc 90% distal OM1, 60% D1, preserved LV fxn, elevated LVEDP [place] severe posterior leaflet prolapse with severe MR->MV annuloplasty repair, afib, sinus arrest->PPM, CAD left alone. [facility] Echo: 06/28/16 normal biventricular fxn, COSMO, mod TR, MV ring Nuc stress 09/13/2016 Anterolateral ischemia/infarct SDS 3 EF 82%, abnl ecg changes 1. Hematuria referable to Klebsiella UTI clearing 2. CAD h/o CA, angina pectoris 3. Permanent AF [id number] score of 9 with h/o splenic infarcts, suspect non- compliance instead of Eliquis failure 4. Anemia likely SB vascular ectasias 5. HTN 6. Hypercholesterolemia 7. DM 8. 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 Mitral valve ring repair 2009 10. Sick sinus syndrome s/p PPM 11. COPD 12. CKD 13. Diastolic dysfunction PLAN: 1. Continue Eliquis 5 mg BID given hemostasis, complete abx per C&S, f/u c. diff toxin 2. Continue Lipitor 80 qhs, Lopressor 75 tid, and lisinopril 10 qd with uptitration as tolerated as renal fxn stabilized, not on Plavix 75 qd given h/o GI bleed from SB AVM 3. Decreased oral diuretics Lasix 20 qd, and monitor renal function and electrolytes, replete K 4. Sees [facility] of [facility], consider [facility] as outpatient if Eliquis compliance is suboptimal or recurrent bleeding given recurrent embolic events
[2018-06-02] MEDS: LOPERAMIDE HCL 2 MG CAPSULE PO SCH (13:53)
[2018-06-02] MEDS ORDERED: INSULIN (NOVOLOG) ASPART 100 UNITS/ML 10ML VIAL ONE (20:50)
[2018-06-02] MEDS ORDERED: cefTRIAXone SODIUM 1 GM VIAL ONE (20:51)
[2018-06-02] MEDS ORDERED: DEXTROSE 5%-WATER - 50 ML IVPB ONE (20:53)
[2018-06-02] MEDS: CEFTRIAXONE 1 GM in DEXTROSE 5%-WATER - 50 ML IVPB SCH (21:46)
[2018-06-02] MEDS: INSULIN (LEVEMIR) 100 UNITS/ML UNITS SQ SCH (21:46)
[2018-06-02] MEDS: ATORVASTATIN CA 80 MG TABLET (FP) PO SCH (21:47)
[2018-06-03] MEDS: INSULIN SLIDING SCALE (NOVOLOG) 1 VIAL SQ SCH ×2 (06:02→11:05)
[2018-06-03] MEDS: METOPROLOL TARTRATE 50 MG TABLET (FP) PO SCH (06:07)
[2018-06-03] MEDS: LACTOBACILLUS ACIDOPHILUS 1 TABLET PO SCH (06:07)
[2018-06-03] MEDS: sitaGLIPtin PHOSPHATE 50 MG TABLET PO SCH (06:08)
[2018-06-03] MEDS: metFORMIN HCL 500 MG TABLET (FP) PO SCH (06:08)
[2018-06-03] MEDS: TAMSULOSIN HCL 0.4 MG CAP PO SCH (09:05)
[2018-06-03] MEDS: APIXABAN 5 MG TABLET PO SCH (09:05)
[2018-06-03] MEDS: ASCORBIC ACID 500 MG TABLET (FP) PO SCH (09:05)
[2018-06-03] MEDS: FLUoxetine HCL 20 MG CAPSULE (FP) PO SCH (09:06)
[2018-06-03] MEDS: FERROUS SO4 325 MG TABLET (FP) PO SCH (09:06)
[2018-06-03] MEDS: FUROSEMIDE 20 MG TABLET (FP) PO SCH (09:06)
[2018-06-03] MEDS: PANTOPRAZOLE 40 MG TABLET (FP) PO SCH (09:06)
[2018-06-03] MEDS: LISINOPRIL 10 MG TABLET (FP) PO SCH (09:06)
[2018-06-03] MEDS: LOPERAMIDE HCL 2 MG CAPSULE PO SCH (09:06)
[2018-06-03] MEDS: POTASSIUM CHLORIDE TABS 10 MEQ TABLET.ER (FP) PO SCH (09:06)
--- NOTE | 2018-06-03 10:13 | DS ---
Physical Examination Vital Signs: Vital Signs Temperature 98.3 F 06/03/18 05:36 Pulse Rate 83 06/03/18 05:36 Respiratory Rate 18 06/03/18 05:36 Blood Pressure 157/80 06/03/18 05:36 O2 Sat by Pulse Oximetry (%) 97 06/02/18 21:00 Findings/Remarks: Pt w/o fever, cough, abd pain, dysuria, nausea, vomiting, diarrhea; ppt w/o SOB , CP, palpitations. Pt's is at bedside; DC planning was reviewed. Constitutional: Yes: No Distress, Calm Cardiovascular: Yes: Regular Rate and Rhythm, S1, S2 Respiratory: Yes: Regular, CTA Bilaterally. No: Rales Gastrointestinal: Yes: Normal Bowel Sounds, Soft. No: Palpable Mass, Tenderness Edema: No Neurological: Yes: Alert, Oriented Labs: CBC, BMP 06/02/18 07:15 06/02/18 07:15 Stool for C Diff is negative Discharge Summary Reason For Visit: ACUTE HEMORRHAGE CYSTITIS Current Active Problems A-fib (Acute) Abdominal gas pain (Acute) Acute hemorrhagic cystitis (Acute) CKD (chronic kidney disease) (Acute) Constipation (Acute) Diarrhea (Acute) Gross hematuria (Acute) Pre-operative cardiovascular examination (Acute) Procedures: Principal: Renal US ( + cyst). Bladder US. CXR Hospital Course: Pt came to ER with gross hematuria, noticed to have UTI; pt was started on IV Abtx; UCX came back + for K. Pna. Pt's NOAC was placed on hold and later restarted. Pt developed diarrhea for couple of days, stool for C Diff was negative for C Diff. Pt was seen by Cardio (Dr. Gaines), (Dr. Lafleur). Pt to be DC'ed home with PO abtx, F/u with PCP, . Condition: Stable - Instructions Diet, Activity, Other Instructions: Resume diet. CBC, BMP in AM. To f/u with PCP (Dr. Lily Maher), (Dr. Lafleur), Neurologist, Cardiologyst Disposition: HOME - Home Medications Comprehensive Discharge Medication List: Ambulatory Orders See DC Patient instructions
[2018-06-03 10:35] VITALS: BP 150/72; PULSE 84; TEMP 98.2
== END 2018-06-03 12:41 | disposition home or self-care (01) | DRG 690 ==
LOC: JER 20:42 → JERBED 05-29 00:03 → J7W 05-29 02:36
PROVIDERS: ADMIT Internal Medicine; ATTEND Internal Medicine
DX: N30.01 Acute cystitis with hematuria (principal); I69.351 Hemiplegia and hemiparesis following cerebral infarction affecting right dominant side; N28.1 Cyst of kidney, acquired; I25.10 Atherosclerotic heart disease of native coronary artery without angina pectoris; I10 Essential (primary) hypertension; E78.5 Hyperlipidemia, unspecified; E11.9 Type 2 diabetes mellitus without complications; J44.9 Chronic obstructive pulmonary disease, unspecified; Z95.2 Presence of prosthetic heart valve; I25.2 Old myocardial infarction; Z79.4 Long term (current) use of insulin; I11.0 Hypertensive heart disease with heart failure; I50.9 Heart failure, unspecified; Z79.01 Long term (current) use of anticoagulants; I69.331 Monoplegia of upper limb following cerebral infarction affecting right dominant side; I69.320 Aphasia following cerebral infarction; I12.9 Hypertensive chronic kidney disease with stage 1 through stage 4 chronic kidney disease, or unspecified chronic kidney disease; N18.2 Chronic kidney disease, stage 2 (mild); I48.2 Chronic atrial fibrillation; Z95.0 Presence of cardiac pacemaker; R19.7 Diarrhea, unspecified
CPT/HCPCS: 36415; 71045-TC-FY; 76775-TC; 76856-TC; 80048; 80053; 81003; 82962; 85025; 85027; 85610; 87086; 87186; 87324; 87449; 93005; 93010; 97116-GP; 97162-GP; 99282-25

== ENCOUNTER 2018-06-24 04:01 | Inpatient (IN) | payer OTHER ==
--- NOTE | 2018-06-24 04:14 | PDOC ---
History of Present Illness - General Chief Complaint: Weakness Stated Complaint: GENERALIZED WEAKNESS Time Seen by Provider: 06/24/18 04:13 - History of Present Illness Initial Comments: 06/24/18 05:18 The patient is a 78 year old female with a history of HTN, HLD, DM, CHF, COPD, Afib, CVA with residual right sided deficits and dysarthria who presents for evaluation of chest pain and generalized weakness. The patient is accompanied by her family who assist in providing the history given the patient's dysarthria. He notes that the patient woke him this morning indicating that she was experiencing chest pain and said "hospital" prompting his presentation to the ED for further evaluation. He also notes an 1-2 minute episode yesterday evening where the patient had a "blank stare" as well before returning to baseline. Unable to obtain a ROS from the patient due to her dysarthria. Past History - Past Medical History Allergies/Adverse Reactions: Allergies Allergy/AdvReac Type Severity Reaction Status Date / Time No Known Allergies Allergy Verified 06/24/18 04:16 Home Medications: Ambulatory Orders Apixaban [Eliquis -] 5 mg PO BID tablet 07/26/17 Ascorbic Acid [Vitamin C -] 500 mg PO DAILY 30 Days #60 tablet MDD 2 07/26/17 Atorvastatin Ca [Lipitor] 80 mg PO HS tablet 07/26/17 Ferrous Sulfate [Feosol] 325 mg PO DAILY@0800 ud 07/26/17 Pantoprazole Sodium [Protonix -] 40 mg PO DAILY tablet.ec 07/26/17 Fluoxetine HCl Liquid [Prozac 20mg/5mL Oral Solution -] 20 mg PO DAILY 04/28/18 Furosemide [Lasix -] 20 mg PO BID@0600,1400 04/28/18 L. Acidophilus/Pectin, Harris [Acidophilus-Pectin Capsule] 1 each PO TID Metformin HCl [Glucophage] 1,000 mg PO BID 04/28/18 Metoprolol Tartrate [Lopressor -] 75 mg PO TID 04/28/18 Sitagliptin Phosphate [Januvia] 50 mg PO BID 04/28/18 Tamsulosin HCl [Flomax] 0.4 mg PO DAILY 04/28/18 Insulin (Levemir) [Levemir Vial] 16 units SQ HS units 03/01/19 Lisinopril [Prinivil] 10 mg PO DAILY #30 tablet MDD 1 05/02/18 Cefpodoxime Proxetil [Vantin -] 200 mg PO Q12H 5 Days #10 tablet MDD 2 06/03/18 Cefpodoxime Proxetil [Vantin -] 200 mg PO Q12H 5 Days #10 tablet MDD 2 06/03/18 Ceftriaxone [Rocephin -] 1 gm IVPB HS 5 Days #10 vial 06/03/18 Anemia: Yes Asthma: No Cancer: No Cardiac Disorders: Yes (afib on coumadin, CABG, PPM) CVA: Yes (july 2017 right sided weakness, dysarthria) COPD: Yes (uses nc o2 @ night 1 lpm) CHF: Yes Dementia: No Diabetes: Yes GI Disorders: Yes (GI BLEED) Disorders: No HTN: Yes Hypercholesterolemia: Yes Liver Disease: No Seizures: No Thyroid Disease: No - Surgical History Abdominal Surgery: No Appendectomy: No Cardiac Surgery: Yes (pacemaker, CABG) Cholecystectomy: No Lung Surgery: No Neurologic Surgery: No Orthopedic Surgery: (BONE TUMOR REMOVAL 5YRS OLD) - Immunization History Immunization Up to Date: Yes - Suicide/Smoking/Psychosocial Hx Smoking History: Never smoked Have you smoked in the past 12 months: No If you are a former smoker, when did you quit?: 2007 Hx Alcohol Use: No Drug/Substance Use Hx: No Substance Use Type: None Hx Substance Use Treatment: No Review of Systems - Review of Systems Able to Perform ROS?: No (Dysarthria) *Physical Exam - Physical Exam Comments: 06/24/18 05:23 General Appearance: Nourished. No Apparent Distress HEENT: EOMI, SHASH[place]. No Pharyngeal Erythema, Tonsillar Exudate, Tonsillar Erythema Neck: No Cervical Lymphadenopathy Respiratory/Chest: Lungs Clear, Normal Breath Sounds. No Crackles, Rales, Rhonchi, Wheezing Cardiovascular: Regular Rhythm, Regular Rate. No Murmur, Gallops, Rubs Gastrointestinal/Abdominal: Normal Bowel Sounds, Soft. No Guarding, Rebound, Tenderness Musculoskeletal: No CVA Tenderness Extremity: Normal Capillary Refill Integumentary: Normal Color, Dry, Warm Neurologic: Fully Oriented, Alert, Normal Mood/Affect, Normal Response, Motor Strength 5/5 on the Left. Movement in plain of the bed of the right lower extremity. No movement of the right upper extremity. Extremely dysarthric Heart Score/ECG Review #1 ECG reviewed & interpreted by me at: 06:00 06/24/18 06:00 Atrial Fibrillation HR 90 QRS 82 QTc 447 ED Treatment Course - LABORATORY CBC & Chemistry Diagram: 06/24/18 05:08 06/24/18 05:39 Medical Decision Making - Medical Decision Making 06/24/18 05:25 The patient is a 78 year old female with a history of HTN, HLD, DM, CHF, COPD, Afib, CVA with residual right sided deficits and dysarthria who presents for evaluation of chest pain and generalized weakness. Differential includes but is not limited to: ACS, Arrythmia, Intracranial process, Infectious, Metabolic Derangement. Given the patient's history and physical exam, we will obtain a cbc, cmp, UA, troponin, coags, ekg, chest plain film, head ct to evaluate further. We will continue to monitor and reassess while here in the ED. 06/24/18 06:40 CBC is unremarkable. CMP is unremarkable. Troponin is elevated to 0.06. Given the patient's cardiac risk factors and history, she will require observation admission for further monitoring and management. Patient is still pending head CT and chest plain film. We will continue to monitor and reassess while here in the ED. 06/24/18 06:44 We discussed the case with Dr. Fischer who accepted the patient for admission. *DC/Admit/Observation/Transfer Diagnosis at time of Disposition: Weakness Chest pain Qualifiers: Chest pain type: unspecified Qualified Code(s): R07.9 - Chest pain, unspecified - Discharge Dispostion Condition at time of disposition: Stable Decision to Admit order: Yes - Referrals Referrals: Zenia Fischer [Primary Care Provider] - - Patient Instructions - Post Discharge Activity
[2018-06-24 04:16] VITALS: BMI 27.4
--- NOTE | 2018-06-24 04:19 | PDOC ---
Attending Attestation - Resident Resident Name: Lino Austin - ED Attending Attestation I have performed the following: The case was reviewed & discussed with the resident, I agree w/resident's findings & plan - HPI HPI: 06/25/18 19:53 78-year-old female arrives to the hospital with possible complaints of chest pain according to her who is at the bedside. Patient's communication skills are severely limited due to history of CVA with resulting aphasia. According to her she stated Hospital and grabbed her chest. Patient is unable to communicate additional history. There is no known trauma reported. - Physicial Exam PE: 06/25/18 19:54 Agree with resident's exam - Medical Decision Making 06/25/18 19:54 78-year-old female with limited communication skills and possible recent history of chest pain EKG consistent with atrial fibrillation, patient is currently anticoagulated on Eliquis Plan for observation admission to medical service
[2018-06-24 05:24] LABS: HEMATOCRIT 34.9 % (32.4-45.2); HEMOGLOBIN 11.4 GM/dL (10.7-15.3); MEAN CELL VOLUME 80.7 fl (80-96); RBC 4.33 M/mm3 (3.60-5.2); WHITE BLOOD COUNT 10.2 K/mm3 (4.0-10.0)
[2018-06-24 05:25] LABS: BASO % 0.6 % (0-2.0); LYMPH % 22.5 % (8-40); MCH 26.4 pg (25.7-33.7); MCHC 32.7 g/dl (32.0-36.0); MEAN PLT VOLUME 9.6 fl (7.5-11.1); MONO % 6.8 % (3.8-10.2); NEUT % 66.1 % (42.8-82.8); PLATELET COUNT 212 K/MM3 (134-434); RDW 16.6 % (11.6-15.6)
[2018-06-24 05:41] LABS: INR 1.71 (0.83-1.09); PROTHROMBIN TIME (PATIENT) 20.3 SEC (9.7-13.0)
[2018-06-24 05:44] LABS: ACTIVATED PTT 34.4 SECONDS (25.2-36.5)
[2018-06-24 06:23] LABS: URINE APPEARANCE CLOUDY; URINE BACTERIA 512.5 /hpf (NEGATIVE); URINE BILIRUBIN NEGATIVE (NEGATIVE); URINE CASTS 8 /lpf (0-8); URINE COLOR YELLOW; URINE GLUCOSE (UA) NEGATIVE (NEGATIVE); URINE KETONE NEGATIVE (NEGATIVE); URINE LEUK ESTERASE 2+ (NEGATIVE); URINE NITRITE NEGATIVE (NEGATIVE); URINE PROTEIN 1+ (NEGATIVE); URINE WBC 47 /hpf (0-5)
[2018-06-24 06:30] LABS: ALBUMIN 3.1 g/dl (3.4-5.0); ALK PHOS 135 U/L (45-117); ANION GAP 8 MMOL/L (8-16); BILIRUBIN,TOTAL 0.9 mg/dL (0.2-1); BLOOD UREA NITROGEN 23 mg/dL (7-18); CALCIUM 8.8 mg/dL (8.5-10.1); CHLORIDE 105 mmol/L (98-107); CO2 30 mmol/L (21-32); CREATININE 1.1 mg/dL (0.55-1.3); GLUCOSE,RANDOM 136 mg/dL (74-106); SGOT/AST 25 U/L (15-37); SGPT/ALT 26 U/L (13-61); SODIUM 143 mmol/L (136-145); TOT PROT 5.9 g/dl (6.4-8.2)
[2018-06-24 08:19] LABS: INR 1.68 (0.83-1.09); PROTHROMBIN TIME (PATIENT) 19.9 SEC (9.7-13.0)
[2018-06-24 08:22] LABS: ACTIVATED PTT 33.9 SECONDS (25.2-36.5)
[2018-06-24 08:28] LABS: URINE RBC 5.5 /hpf (0-4)
[2018-06-24 08:29] LABS: URINE CRYSTALS CALCIUM OXALATE SEEN /hpf
[2018-06-24] MEDS ORDERED: LISINOPRIL 10 MG TABLET (FP) PO SCH (12:00)
[2018-06-24] MEDS ORDERED: PANTOPRAZOLE 40 MG TABLET (FP) ONE (12:20)
[2018-06-24] MEDS ORDERED: sitaGLIPtin PHOSPHATE 50 MG TABLET ONE ×2 (12:21→16:47)
[2018-06-24] MEDS ORDERED: APIXABAN 5 MG TABLET PO ONE ×2 (12:21→22:17)
[2018-06-24] MEDS ORDERED: LISINOPRIL 20 MG TABLET (FP) ONE (12:21)
[2018-06-24] MEDS ORDERED: TAMSULOSIN HCL 0.4 MG CAP ONE ×2 (12:22→12:34)
--- NOTE | 2018-06-24 12:26 | EKG ---
Test Reason : Blood Pressure : / mmHG Vent. Rate : 090 BPM Atrial Rate : 101 BPM P-R Int : 000 ms QRS Dur : 082 ms QT Int : 366 ms P-R-T Axes : 000 057 107 degrees QTc Int : 447 ms ATRIAL FIBRILLATION LOW VOLTAGE QRS NONSPECIFIC ST AND T WAVE ABNORMALITY ABNORMAL ECG Confirmed by MD STEPHANY, HEATHER ([id number]) on 06/24/2018 12:26:22 PM Referred By: Confirmed By:HEATHER HAMMOND MD
[2018-06-24] MEDS: APIXABAN 5 MG TABLET PO SCH ×2 (12:37→23:00)
[2018-06-24] MEDS: TAMSULOSIN HCL 0.4 MG CAP PO SCH (12:37)
[2018-06-24] MEDS: PANTOPRAZOLE 40 MG TABLET (FP) PO SCH (12:38)
[2018-06-24] MEDS: FLUoxetine HCL 20 MG CAPSULE (FP) PO SCH (12:38)
[2018-06-24] MEDS ORDERED: FUROSEMIDE 40 MG TABLET (FP) ONE (14:23)
[2018-06-24] MEDS: METOPROLOL TARTRATE 50 MG TABLET (FP) PO SCH ×2 (14:40→20:27)
[2018-06-24] MEDS: FUROSEMIDE 20 MG TABLET (FP) PO SCH (14:40)
[2018-06-24] MEDS: ASCORBIC ACID 500 MG TABLET (FP) PO SCH (14:40)
--- NOTE | 2018-06-24 15:41 | HP ---
Admitting History and Physical - Primary Care Physician PCP: Caleb Fischer - Admission Chief Complaint: CP. Unresponsiveness History of Present Illness: Pt and provides HPI. Pts states that last night, at bed time, Mrs Spivey for few seconds stared at him and didnt answered or move; than she started to act normal. This AM, around 3 AM, she woke up to go to the bathroom and developed SSCP for few minutes w/o radiation, associated with lightheadedness, no SOB/ palpitations associated with CP. Since in ER pt w/o CP. 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) Cardiovascular: Yes: AFIB (on AC), Aortic Stenosis (s/p ring repair at [facility]), CAD , HTN, Mitral Insufficiency (MVR 2009 [facility]), Other (PPM) Pulmonary: Yes: COPD Gastrointestinal: Yes: Diverticulosis, GI Bleed (recent bleed felt to be 2ndary to vascular ectasias), Other (07/19 four adenomatous tx colon polyps resected, cecal angiodysplasias seen) Heme/Onc: Yes: Anemia Rheumatology: Yes: Other (osteoarthritis) Endocrine: Yes: Diabetes Mellitus - Past Surgical History Past Surgical History: Yes: Colonoscopy, Upper Endoscopy - Smoking History Smoking history: Never smoked Have you smoked in the past 12 months: No If you are a former smoker, when did you quit?: 2007 - Alcohol/Substance Use Hx Alcohol Use: No History of Substance Use: reports: None - Social History ADL: Independent 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 History of Recent Travel: No Home Medications - Allergies Allergies/Adverse Reactions: Allergies Allergy/AdvReac Type Severity Reaction Status Date / Time No Known Allergies Allergy Verified 06/24/18 04:16 - Home Medications Home Medications: Ambulatory Orders Apixaban [Eliquis -] 5 mg PO BID tablet 07/26/17 Ascorbic Acid [Vitamin C -] 500 mg PO DAILY 30 Days #60 tablet MDD 2 07/26/17 Atorvastatin Ca [Lipitor] 80 mg PO HS tablet 07/26/17 Ferrous Sulfate [Feosol] 325 mg PO DAILY@0800 ud 07/26/17 Pantoprazole Sodium [Protonix -] 40 mg PO DAILY tablet.ec 07/26/17 Fluoxetine HCl Liquid [Prozac 20mg/5mL Oral Solution -] 20 mg PO DAILY 04/28/18 Furosemide [Lasix -] 20 mg PO BID@0600,1400 04/28/18 L. Acidophilus/Pectin, [place] [Acidophilus-Pectin Capsule] 1 each PO TID Metformin HCl [Glucophage] 1,000 mg PO BID 04/28/18 Metoprolol Tartrate [Lopressor -] 75 mg PO TID 04/28/18 Sitagliptin Phosphate [Januvia] 50 mg PO BID 04/28/18 Tamsulosin HCl [Flomax] 0.4 mg PO DAILY 04/28/18 Insulin (Levemir) [Levemir Vial] 16 units SQ HS units 05/02/18 Lisinopril [Prinivil] 10 mg PO DAILY #30 tablet MDD 1 05/02/18 Family Disease History - Family Disease History Family Disease History: Heart Disease: Father ( [place] age 67), Mother ( CHF in her 70's) Review of Systems - Review of Systems Constitutional: denies: Chills, Fever Eyes: denies: Blurred Vision, Double Vision HENT: denies: Ear Discharge, Nasal Congestion, Throat Pain Neck: denies: Decreased ROM, Stiffness Cardiovascular: reports: Chest Pain (now). denies: Edema, Palpitations Respiratory: denies: Cough, Wheezing Gastrointestinal: denies: Abdominal Pain, Diarrhea, Nausea, Vomiting Genitourinary: denies: Burning, Frequency Musculoskeletal: denies: Back Pain, Muscle Pain Integumentary: denies: Bruising, Rash Neurological: denies: Change in LOC (per patient), Confusion Endocrine: denies: Excessive Sweating, Intolerance to Cold Hematology/Lymphatic: denies: Easily Bruised, Excessive Bleeding Psychiatric: denies: Anxiety, Depression Physical Examination Vital Signs: Vital Signs Temperature 98.1 F 06/24/18 14:41 Pulse Rate 130 H 06/24/18 14:41 Respiratory Rate 06/24/18 14:41 Blood Pressure 148/82 06/24/18 14:41 O2 Sat by Pulse Oximetry (%) 93 L 06/24/18 09:00 Constitutional: Yes: No Distress, Calm Eyes: Yes: Conjunctiva Clear, EOM Intact HENT: No: Epistaxis, Pharyngeal Erythema, Rhinnorhea Neck: Yes: Trachea Midline. No: Lymphadenopathy Cardiovascular: Yes: Regular Rate and Rhythm, S1, S2 Respiratory: Yes: Regular, CTA Bilaterally. No: Rales Gastrointestinal: Yes: Normal Bowel Sounds, Soft. No: Tenderness ...Rectal Exam: Yes: Deferred Breast(s): Yes: Other (deferred) Musculoskeletal: No: Back Pain, Joint Swelling Extremities: Yes: Other (leg is larger then left (old)) Edema: No Integumentary: No: Bruising, Jaundice Neurological: Yes: Alert, Oriented Labs: CBC, BMP 06/24/18 05:08 06/24/18 05:39 Imaging - Results Chest X-ray: Report Reviewed Cat Scan: Report Reviewed Problem List - Problems (1) TIA (transient ischemic attack) Code(s): G45.9 - TRANSIENT CEREBRAL ISCHEMIC ATTACK, UNSPECIFIED (2) Chest pain Code(s): R07.9 - CHEST PAIN, UNSPECIFIED Qualifiers: Chest pain type: unspecified Qualified Code(s): R07.9 - Chest pain, unspecified (3) Abnormal urine Code(s): R82.90 - UNSPECIFIED ABNORMAL FINDINGS IN URINE (4) CVA (cerebral vascular accident) Code(s): I63.9 - CEREBRAL INFARCTION, UNSPECIFIED (5) CAD (coronary artery disease) Code(s): I25.10 - ATHSCL HEART DISEASE OF [place] CORONARY ARTERY W/O ANG PCTRS (6) Diabetes mellitus Code(s): E11.9 - TYPE 2 DIABETES MELLITUS WITHOUT COMPLICATIONS Assessment/Plan Admit to monitor bed Serial CE Cardio consult Neuro consult Possible UTI (per her nurse UA and UCX from straight cath). Ceftriaxone IV X 1, monitor UCX. AM labs. Pts condition was d/w her nurse, pt and pts
[2018-06-24] MEDS ORDERED: CEFTRIAXONE 1 GM in DEXTROSE 5%-WATER - 50 ML IVPB ONE (16:00)
[2018-06-24] MEDS ORDERED: metFORMIN HCL 500 MG TABLET (FP) ONE ×2 (16:47→17:04)
--- NOTE | 2018-06-24 17:06 | PN ---
Progress Note (short form) - Note Progress Note: Chief Complaint: Events noted, notes reviewed, reported chest pain, currently asymptomatic, denies any dyspnea History of Present Illness: Seen and examined in the emergency room as a telemetry hold. Full consult dictated Current Medications: Current Medications Apixaban (Eliquis -) 5 mg PO BID [facility] Last Admin: 06/24/18 12:37 Dose: 5 mg Ascorbic Acid (Vitamin C -) 500 mg PO DAILY [facility] Last Admin: 06/24/18 14:40 Dose: 500 mg Atorvastatin Calcium (Lipitor -) 80 mg PO HS [facility] Ferrous Sulfate (Feosol -) 325 mg PO DAILY@0800 [facility] Fluoxetine HCl (Prozac -) 20 mg PO DAILY [facility] Last Admin: 06/24/18 12:38 Dose: Not Given Furosemide (Lasix -) 20 mg PO BID@0600,1400 [facility] Last Admin: 06/24/18 14:40 Dose: 20 mg Insulin Aspart (Novolog Vial Sliding Scale -) 1 vial SQ [facility]; Protocol Insulin Detemir (Levemir Vial) 16 units SQ [facility] Lisinopril (Prinivil) 10 mg PO DAILY [facility] Last Admin: 06/24/18 12:38 Dose: 10 mg Metformin HCl (Glucophage -) 1,000 mg PO BIDAC [facility] Metoprolol Tartrate (Lopressor -) 75 mg PO TID [facility] Last Admin: 06/24/18 14:40 Dose: 75 mg Pantoprazole Sodium (Protonix -) 40 mg PO DAILY [facility] Last Admin: 06/24/18 12:38 Dose: 40 mg Sitagliptin Phosphate (Januvia -) 50 mg PO BIDAC [facility] Tamsulosin HCl (Flomax -) 0.4 mg PO DAILY@0830 [facility] Last Admin: 06/24/18 12:37 Dose: 0.4 mg Review of Systems Cardiovascular: As noted above Respiratory: denies: denies: Cough or Sputum Production Gastrointestinal: denies: Nausea, Vomiting, Diarrhea, Constipation or Abdominal Discomfort Musculoskeletal: No Symptoms Reported Endocrine: No Symptoms Reported - Objective Vital Signs: Last Vital Signs Temp Pulse Resp BP Pulse Ox 98.1 F 130 H 19 148/82 93 L 06/24/18 14:41 06/24/18 14:41 06/24/18 14:41 06/24/18 14:41 06/24/18 09:00 Intake & Output 06/21/18 06/22/18 06/23/18 06/24/18 23:59 23:59 23:59 23:59 Weight 150 lb Neck: Supple negative JVD no bruit Cardiovascular: S1 S2 Irregularly Irregular Grade 2/6 SM apical Respiratory: Diminished Breath Sounds Bilaterally Gastrointestinal: Soft Benign Normal Bowel Sounds Ext: Negative Edema Bilaterally Labs: Troponin, BNP 06/24/18 06/24/18 06/24/18 05:08 05:39 12:44 Troponin I Cancelled 0.06 H 0.07 H CBC, BMP 06/24/18 05:08 06/24/18 05:39 Hepatic Panel Total Bilirubin 0.9 mg/dL (0.2-1) 06/24/18 05:39 AST 25 U/L (15-37) 06/24/18 05:39 ALT 26 U/L (13-61) 06/24/18 05:39 Alkaline Phosphatase 135 U/L (45-117) H 06/24/18 05:39 Albumin 3.1 g/dl (3.4-5.0) L 06/24/18 05:39 INR, PTT INR 1.68 (0.83-1.09) H 06/24/18 05:39 Assessment/Plan: ASSESSMENT: 1. Chest pain syndrome in a patient with known history of coronary artery disease demand ischemic injury angina pectoris 2. Diastolic left ventricular dysfunction with clinical class 0 [place] Heart Association classification left ventricular failure 3. Permanent atrial fibrillation [id number] score of 9, on anticoagulation therapy with Eliquis 4. Sick sinus syndrome post permanent pacemaker implantation 5. Post mitral valve repair 6. HTN 7. DM 8. Hypercholesterolemia 9. 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 COPD 11. CKD PLAN: 1. Continue Eliquis 2. Continue Lipitor 3. Continue Lopressor 4. Continue Lisinopril and titrate dosage as needed with close monitoring of renal functional 5. Add Ranexa 6. As outlined in the prior notes patient to followup with Dr. Dread Cowan/ cardiology/[place], to consider Watchman as outpatient if Eliquis compliance is sub-optimal or recurrent bleeding Karla Hernandes MD
[2018-06-24] MEDS ORDERED: INSULIN (NOVOLOG) ASPART 100 UNITS/ML 10ML VIAL ONE ×2 (17:15→23:04)
[2018-06-24] MEDS ORDERED: CEFTRIAXONE 1 GM/50 ML BAG ONE (17:15)
[2018-06-24] MEDS: sitaGLIPtin PHOSPHATE 50 MG TABLET PO SCH (17:35)
[2018-06-24] MEDS: INSULIN SLIDING SCALE (NOVOLOG) 1 VIAL SQ SCH ×2 (17:35→23:20)
[2018-06-24] MEDS: metFORMIN HCL 500 MG TABLET (FP) PO SCH (19:17)
--- NOTE | 2018-06-24 19:34 | CONS ---
DATE OF CONSULTATION: 06/24/2018 REQUESTING PHYSICIAN: Zenia Fischer M.D. CHIEF COMPLAINT: Chest pain. HISTORY OF PRESENT ILLNESS: Patient known to our service from prior hospitalization. A 78-year-old female with known history of coronary artery disease, angina pectoris, diastolic left ventricular dysfunction with clinical class 1 [place] [employer] classification left ventricular failure, permanent atrial fibrillation on chronic anticoagulation therapy, sick sinus syndrome, post permanent pacemaker implantation, cerebrovascular disease with right-sided residual deficit, hypertensive cardiovascular disease, diabetes mellitus, hypercholesterolemia, chronic obstructive pulmonary disease, who presented to [facility] emergency room after reporting chest discomfort to her . According to the who was at the bedside, she reported transient chest discomfort, and she requested to be evaluated at the hospital. Patient currently is eating lunch and denies any chest discomfort. No reported dyspnea. No reported orthopnea or paroxysmal nocturnal dyspnea. No reported peripheral edema. No reported palpitation. Patient has had a complex history with recurrent embolic disease deemed Coumadin failure and subsequently questionable Eliquis failure, although compliance was an issue. PAST MEDICAL HISTORY: Coronary artery disease, angina pectoris, diastolic left ventricular dysfunction with clinical class 0 [place] [employer] classification left ventricular failure, permanent atrial fibrillation on anticoagulation therapy, sick sinus syndrome post permanent pacemaker implantation, mitral valve disease post mitral valve repair, cerebrovascular disease with residual deficit of right-sided weakness, hypertensive cardiovascular disease, diabetes mellitus, hypercholesterolemia, chronic obstructive pulmonary disease, degenerative joint disease. SOCIAL HISTORY: Prior history of tobacco abuse. FAMILY HISTORY: No history of coronary artery disease. ALLERGIES: None reported. MEDICAL THERAPY: Currently include Eliquis 5 mg once a day, vitamin C 500 mg once a day, Lipitor 80 mg once a day, ferrous sulfate 325 mg once a day, Prozac 20 mg once a day, Lasix 20 mg twice a day, insulin, lisinopril 10 mg once a day, metformin 1000 mg twice a day, Lopressor 75 mg 3 times a day, Protonix 40 mg once a day, Januvia 50 mg twice a day, Flomax 0.4 mg once a day. REVIEW OF SYSTEMS: Head and neck: Denies headache, photophobia, blurring of vision. Respiratory: Denies cough or sputum production. Cardiovascular: As noted above. Gastrointestinal: Denies nausea, vomiting, diarrhea. Genitourinary: No symptoms reported. PHYSICAL EXAMINATION: Vital signs: Blood pressure is 148/82, pulse rate is 130 irregular. Head/Neck: Pupils equally reactive to light and accommodation. Extraocular muscles are intact. Anicteric sclerae. Negative JVD. No bruit appreciated. Chest: Clear to auscultation and percussion. Cardiovascular: S1, S2 irregularly irregular. Grade 1-2 over 6 systolic apical murmur. No clicks or gallops. Abdomen: Soft, benign. Normoactive bowel sounds. Extremities: Negative edema. Intact distal pulses. No calf tenderness. Electrocardiogram reveals atrial fibrillation with nonspecific ST segment and T wave abnormality. CT scan of the head noted. Chest x-ray noted. CBC revealed white cell count 10.2, hemoglobin 11.4, platelet count of 212, INR 1.68. Basic metabolic profile revealed sodium 143, potassium 4.0, BUN 23, creatinine 1.1 . Estimated GFR 48.29, glucose 136. Troponin 0.06, repeat 0.07. ASSESSMENT: 1. Chest pain syndrome in a patient with known history of coronary artery disease with evidence of demand ischemic injury, angina pectoris. 2. Diastolic left ventricular dysfunction with clinical class 0 [place] Heart [employer] classification left ventricular failure. 3. Permanent atrial fibrillation, CHADS VASc score of 9 on anticoagulation therapy with Eliquis. 4. Sick sinus syndrome, post permanent pacemaker implantation. 5. Post mitral valve repair, mitral valve anuloplasty. 6. Hypertensive cardiovascular disease. 7. Diabetes mellitus. 8. Hypercholesterolemia. 9. History of cerebrovascular disease with residual deficit. 10. History of chronic obstructive pulmonary disease. 11. Chronic kidney disease . RECOMMENDATION: 1. Continuation of Eliquis therapy. 2. Continuation of Lipitor. 3. Continuation of Lopressor. 4. Continuation of lisinopril and titration of dosage as needed with close monitoring of renal function. 5. Addition of Ranexa. 6. Will plan for conservative medical management considering the above-noted comorbidities and patient as outlined in prior notes is to follow up with her waiter/waitress head, Dr. Dread Cowan, at [facility]. Consideration for Watchman left atrial appendage closure device if Eliquis compliance is an issue, or patient has recurrence of bleed. Thank you for kind referral. ETTA MCKEON M.D. LANE/[id number]
--- NOTE | 2018-06-24 21:06 | CON.NEURO ---
Consult Consult Specialty:: NEUROLOGY-GEETHA KAM Reason for Consultation:: Staring spell - History of Present Illness History of Present Illness: Pt and provides HPI. Pts states that last night, at bed time, Mrs Spivey for few seconds stared at him and didnt answered or move; than she started to act normal. This AM, around 3 AM, she woke up to go to the bathroom and developed SSCP for few minutes w/o radiation, associated with lightheadedness, no SOB/ palpitations associated with CP. Since in ER pt w/o CP. History Source: Patient, Family Member () -She has a right hemiplegia since stroke in July last year. Denies complaints at this time, her describes seconds of staring last night. CT head- old left parietal subcort/bg region infarct, old right parietal inf. 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) Cardio/Vascular: Yes: AFIB (on AC), Aortic Stenosis (s/p ring repair at [facility]), CAD, HTN, Mitral Insufficiency (MVR 2009 [facility]), Other (PPM) Pulmonary: Yes: COPD Gastrointestinal: Yes: Diverticulosis, GI Bleed (recent bleed felt to be 2ndary to vascular ectasias), Other (07/19 four adenomatous tx colon polyps resected, cecal angiodysplasias seen) Rheumatology: Yes: Other (osteoarthritis) Endocrine: Yes: Diabetes Mellitus - Past Surgical History Past Surgical History: Yes: Colonoscopy, Upper Endoscopy - Alcohol/Substance Use Hx Alcohol Use: No History of Substance Use: reports: None - Smoking History Smoking history: Never smoked Have you smoked in the past 12 months: No If you are a former smoker, when did you quit?: 2007 - Social History Usual Living Arrangement: With Spouse ADL: Independent 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 History of Recent Travel: No Home Medications - Allergies Allergies/Adverse Reactions: Allergies Allergy/AdvReac Type Severity Reaction Status Date / Time No Known Allergies Allergy Verified 06/24/18 04:16 - Home Medications Home Medications: Ambulatory Orders Apixaban [Eliquis -] 5 mg PO BID tablet 07/26/17 Ascorbic Acid [Vitamin C -] 500 mg PO DAILY 30 Days #60 tablet MDD 2 07/26/17 Atorvastatin Ca [Lipitor] 80 mg PO HS tablet 07/26/17 Ferrous Sulfate [Feosol] 325 mg PO DAILY@0800 ud 07/26/17 Pantoprazole Sodium [Protonix -] 40 mg PO DAILY tablet.ec 07/26/17 Fluoxetine HCl Liquid [Prozac 20mg/5mL Oral Solution -] 20 mg PO DAILY 04/28/18 Furosemide [Lasix -] 20 mg PO BID@0600,1400 04/28/18 L. Acidophilus/Pectin, [place] [Acidophilus-Pectin Capsule] 1 each PO TID Metformin HCl [Glucophage] 1,000 mg PO BID 04/28/18 Metoprolol Tartrate [Lopressor -] 75 mg PO TID 04/28/18 Sitagliptin Phosphate [Januvia] 50 mg PO BID 04/28/18 Tamsulosin HCl [Flomax] 0.4 mg PO DAILY 04/28/18 Insulin (Levemir) [Levemir Vial] 16 units SQ HS units 05/02/18 Lisinopril [Prinivil] 10 mg PO DAILY #30 tablet MDD 1 05/02/18 Family Disease History - Family Disease History Family Disease History: Heart Disease: Father ( [place] age 67), Mother ( CHF in her 70's) Physical Exam-Neuro Vital Signs: Vital Signs Temperature 98.6 F 06/24/18 17:36 Pulse Rate 106 H 06/24/18 20:05 Respiratory Rate 18 06/24/18 20:05 Blood Pressure 165/108 H 06/24/18 20:05 O2 Sat by Pulse Oximetry (%) 93 L 06/24/18 20:05 Labs: CBC, BMP 06/24/18 05:08 06/24/18 05:39 INR, PTT INR 1.68 (0.83-1.09) H 06/24/18 05:39 - Neuro Exam Level Of Consciousness: Yes: Alert, Oriented to Person, Oriented to Place, Oriented to Time Eyes: Yes: [place] Cranial Nerves II-XII Intact: No (old right cent. facial) Gag: Present DTR's: 1+ Left Achilles, 1+ Right Achilles, 2+ Left Bicep, 2+ Left Tricep, 2+ Left Brachioradialis, 2+ Right Brachioradialis, 3+ Right Bicep, 3+ Right Tricep Babinski: Present (right) Response to pain prick: Normal Response to temperature: Normal Response to vibration: Normal Motor Strength: 1/5: Right Arm, Right Leg, 5/5: Left Arm, Left Leg Assessment/Plan Staring spell last night x seconds, old right hemiplegia. DDX. includes post. circ. tia(embolic vs hemodynamic), partial seizure. Suggest: MRI brain Cont. apixaban. Will check carotid study from past if done. Further managemnet after MRI.
[2018-06-24] MEDS ORDERED: INSULIN (LEVEMIR) 100 UNITS/ML UNITS SQ ONE (22:37)
[2018-06-24] MEDS: ATORVASTATIN CA 80 MG TABLET (FP) PO SCH (23:20)
[2018-06-24] MEDS: INSULIN (LEVEMIR) 100 UNITS/ML UNITS SQ SCH (23:20)
[2018-06-24] MEDS: RANOLAZINE E.R. 500 MG TABLET (FP) PO SCH (23:20)
[2018-06-25 06:04] LABS: HEMATOCRIT 37.9 % (32.4-45.2); HEMOGLOBIN 12.3 GM/dL (10.7-15.3); MCHC 32.4 g/dl (32.0-36.0); MEAN CELL VOLUME 80.4 fl (80-96); MEAN PLT VOLUME 9.8 fl (7.5-11.1); PLATELET COUNT 225 K/MM3 (134-434); RBC 4.72 M/mm3 (3.60-5.2); RDW 16.3 % (11.6-15.6); WHITE BLOOD COUNT 10.9 K/mm3 (4.0-10.0)
[2018-06-25 06:48] LABS: ALBUMIN 3.2 g/dl (3.4-5.0); ALK PHOS 137 U/L (45-117); ANION GAP 11 MMOL/L (8-16); BILIRUBIN,TOTAL 1.1 mg/dL (0.2-1); BLOOD UREA NITROGEN 18 mg/dL (7-18); CHLORIDE 105 mmol/L (98-107); CO2 28 mmol/L (21-32); CREATININE 1.1 mg/dL (0.55-1.3); GLUCOSE,RANDOM 83 mg/dL (74-106); MAGNESIUM 1.2 mg/dL (1.8-2.4); POTASSIUM 3.3 mmol/L (3.5-5.1); SGOT/AST 17 U/L (15-37); SGPT/ALT 24 U/L (13-61); SODIUM 143 mmol/L (136-145)
[2018-06-25] MEDS: metFORMIN HCL 500 MG TABLET (FP) PO SCH ×2 (07:00→17:18)
[2018-06-25] MEDS: FUROSEMIDE 20 MG TABLET (FP) PO SCH ×2 (07:00→14:08)
[2018-06-25] MEDS: METOPROLOL TARTRATE 50 MG TABLET (FP) PO SCH ×3 (07:00→21:58)
[2018-06-25] MEDS: INSULIN SLIDING SCALE (NOVOLOG) 1 VIAL SQ SCH ×4 (07:01→21:56)
[2018-06-25] MEDS: sitaGLIPtin PHOSPHATE 50 MG TABLET PO SCH ×2 (07:01→17:19)
[2018-06-25] MEDS ORDERED: MAGNESIUM SULF 50% (8.12 MEQ/2 ML-1 GM VIAL) IVPB ONE (07:43)
[2018-06-25] MEDS ORDERED: POTASSIUM CHLORIDE ORAL LIQUID 20 MEQ/15 ML PO ONE (07:46)
--- NOTE | 2018-06-25 08:32 | PN ---
Progress Note (short form) - Note Progress Note: Chief Complaint: Events noted, notes reviewed, awake and alert, no further chest pain reported, denies any dyspnea History of Present Illness: Seen and examined on telemetry. Events noted, notes reviewed, awake and alert, no further chest pain reported, denies any dyspnea Current Medications: Current Medications Apixaban (Eliquis -) 5 mg PO BID [facility] Last Admin: 06/24/18 23:00 Dose: 5 mg Ascorbic Acid (Vitamin C -) 500 mg PO DAILY [facility] Last Admin: 06/24/18 14:40 Dose: 500 mg Atorvastatin Calcium (Lipitor -) 80 mg PO [facility] Last Admin: 06/24/18 23:20 Dose: 80 mg Ferrous Sulfate (Feosol -) 325 mg PO DAILY@0800 [facility] Fluoxetine HCl (Prozac -) 20 mg PO DAILY [facility] Last Admin: 06/24/18 12:38 Dose: Not Given Furosemide (Lasix -) 20 mg PO BID@0600,1400 [facility] Last Admin: 06/25/18 07:00 Dose: 20 mg Insulin Aspart (Novolog Vial Sliding Scale -) 1 vial SQ [facility]; Protocol Last Admin: 06/25/18 07:01 Dose: Not Given Insulin Detemir (Levemir Vial) 16 units SQ [facility] Last Admin: 06/24/18 23:20 Dose: 16 unit Lisinopril (Prinivil) 20 mg PO DAILY [facility] Metformin HCl (Glucophage -) 1,000 mg PO BIDAC [facility] Last Admin: 06/25/18 07:00 Dose: Not Given Metoprolol Tartrate (Lopressor -) 75 mg PO TID [facility] Last Admin: 06/25/18 07:00 Dose: 75 mg Pantoprazole Sodium (Protonix -) 40 mg PO DAILY [facility] Last Admin: 06/24/18 12:38 Dose: 40 mg Ranolazine (Ranexa -) 500 mg PO BID [facility] Last Admin: 06/24/18 23:20 Dose: 500 mg Sitagliptin Phosphate (Januvia -) 50 mg PO BIDAC [facility] Last Admin: 06/25/18 07:01 Dose: Not Given Tamsulosin HCl (Flomax -) 0.4 mg PO DAILY@0830 [facility] Last Admin: 06/24/18 12:37 Dose: 0.4 mg Review of Systems Cardiovascular: As noted above Respiratory: denies: denies: Cough or Sputum Production Gastrointestinal: denies: Nausea, Vomiting, Diarrhea, Constipation or Abdominal Discomfort Musculoskeletal: No Symptoms Reported Endocrine: No Symptoms Reported - Objective Vital Signs: Last Vital Signs Temp Pulse Resp BP Pulse Ox 98.1 F 92 H 18 139/51 L 95 06/25/18 06:00 06/25/18 06:00 06/25/18 06:00 06/25/18 06:00 06/24/18 23:10 Intake & Output 06/22/18 06/23/18 06/24/18 06/25/18 23:59 23:59 23:59 23:59 Intake Total 0 Balance 0 Weight 150 lb Neck: Supple negative JVD no bruit Cardiovascular: S1 S2 Irregularly Irregular Grade 2/6 SM apical Respiratory: Diminished Breath Sounds Bilaterally Gastrointestinal: Soft Benign Normal Bowel Sounds Ext: Negative Edema Bilaterally Labs: CBC, BMP 06/25/18 05:30 06/25/18 05:30 Hepatic Panel Total Bilirubin 1.1 mg/dL (0.2-1) H 06/25/18 05:30 AST 17 U/L (15-37) 06/25/18 05:30 ALT 24 U/L (13-61) 06/25/18 05:30 Alkaline Phosphatase 137 U/L (45-117) H 06/25/18 05:30 Albumin 3.2 g/dl (3.4-5.0) L 06/25/18 05:30 Assessment/Plan: ASSESSMENT: 1. Chest pain syndrome in a patient with known history of coronary artery disease demand ischemic injury angina pectoris 2. Diastolic left ventricular dysfunction with clinical class 0 [place] Heart [employer] classification left ventricular failure 3. Permanent atrial fibrillation [id number] score of 9, on anticoagulation therapy with Eliquis 4. Sick sinus syndrome post permanent pacemaker implantation 5. Post mitral valve repair 6. HTN 7. DM 8. Hypercholesterolemia 9. 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 COPD 11. CKD PLAN: 1. Continue Eliquis 2. Continue Lipitor 3. Continue Lopressor 4. Continue Lisinopril and titrate dosage as needed with close monitoring of renal functional 5. Continue Ranexa 6. As outlined in the prior notes patient to followup with Dr. Dread Cowan/ cardiology/[facility], to consider Watchman as outpatient if Eliquis compliance is sub-optimal or recurrent bleeding/history of GI bleed- vascular ectasia Karla Hernandes MD
[2018-06-25] MEDS: PANTOPRAZOLE 40 MG TABLET (FP) PO SCH (09:25)
[2018-06-25] MEDS: FLUoxetine HCL 20 MG CAPSULE (FP) PO SCH (09:25)
[2018-06-25] MEDS: FERROUS SO4 325 MG TABLET (FP) PO SCH (09:25)
[2018-06-25] MEDS: LISINOPRIL 20 MG TABLET (FP) PO SCH (09:25)
[2018-06-25] MEDS: APIXABAN 5 MG TABLET PO SCH ×2 (09:25→21:59)
[2018-06-25] MEDS: TAMSULOSIN HCL 0.4 MG CAP PO SCH (09:25)
[2018-06-25] MEDS: ASCORBIC ACID 500 MG TABLET (FP) PO SCH (09:25)
[2018-06-25] MEDS: RANOLAZINE E.R. 500 MG TABLET (FP) PO SCH ×2 (09:25→21:59)
--- NOTE | 2018-06-25 12:13 | PN ---
Progress Note, Physician History of Present Illness: Pt w/o CP, SOB, palp abd pain Pt's at bedside, no new episode of unresponsivenes - Current Medication List Current Medications: Active Medications Apixaban (Eliquis -) 5 mg PO BID [facility] Last Admin: 06/25/18 09:25 Dose: 5 mg Ascorbic Acid (Vitamin C -) 500 mg PO DAILY [facility] Last Admin: 06/25/18 09:25 Dose: 500 mg Atorvastatin Calcium (Lipitor -) 80 mg PO HS [facility] Last Admin: 06/24/18 23:20 Dose: 80 mg Ferrous Sulfate (Feosol -) 325 mg PO DAILY@0800 [facility] Last Admin: 06/25/18 09:25 Dose: 325 mg Fluoxetine HCl (Prozac -) 20 mg PO DAILY [facility] Last Admin: 06/25/18 09:25 Dose: 20 mg Furosemide (Lasix -) 20 mg PO BID@0600,1400 [facility] Last Admin: 06/25/18 07:00 Dose: 20 mg Insulin Aspart (Novolog Vial Sliding Scale -) 1 vial SQ [facility]; Protocol Last Admin: 06/25/18 11:05 Dose: 2 unit Insulin Detemir (Levemir Vial) 16 units SQ [facility] Last Admin: 06/24/18 23:20 Dose: 16 unit Lisinopril (Prinivil) 20 mg PO DAILY [facility] Last Admin: 06/25/18 09:25 Dose: 20 mg Metformin HCl (Glucophage -) 1,000 mg PO BIDAC [facility] Last Admin: 06/25/18 07:00 Dose: Not Given Metoprolol Tartrate (Lopressor -) 75 mg PO TID [facility] Last Admin: 06/25/18 07:00 Dose: 75 mg Pantoprazole Sodium (Protonix -) 40 mg PO DAILY [facility] Last Admin: 06/25/18 09:25 Dose: 40 mg Ranolazine (Ranexa -) 500 mg PO BID [facility] Last Admin: 06/25/18 09:25 Dose: 500 mg Sitagliptin Phosphate (Januvia -) 50 mg PO BIDAC [facility] Last Admin: 06/25/18 07:01 Dose: Not Given Tamsulosin HCl (Flomax -) 0.4 mg PO DAILY@0830 [facility] Last Admin: 06/25/18 09:25 Dose: 0.4 mg - Objective Vital Signs: Vital Signs Temperature 97.8 F 06/25/18 10:00 Pulse Rate 93 H 06/25/18 10:00 Respiratory Rate 18 06/25/18 10:00 Blood Pressure 155/72 06/25/18 10:00 O2 Sat by Pulse Oximetry (%) 95 06/25/18 10:00 Constitutional: Yes: No Distress, Calm Cardiovascular: Yes: Regular Rate and Rhythm, S1, S2 Respiratory: Yes: Regular. No: Rales Gastrointestinal: Yes: Normal Bowel Sounds, Soft. No: Tenderness Edema: No Neurological: Yes: Alert, Oriented Labs: CBC, BMP 06/25/18 05:30 06/25/18 05:30 INR, PTT INR 1.68 (0.83-1.09) H 06/24/18 05:39 Problem List - Problems (1) TIA (transient ischemic attack) Code(s): G45.9 - TRANSIENT CEREBRAL ISCHEMIC ATTACK, UNSPECIFIED (2) Chest pain Code(s): R07.9 - CHEST PAIN, UNSPECIFIED Qualifiers: Chest pain type: unspecified Qualified Code(s): R07.9 - Chest pain, unspecified (3) Abnormal urine Code(s): R82.90 - UNSPECIFIED ABNORMAL FINDINGS IN URINE (4) CVA (cerebral vascular accident) Code(s): I63.9 - CEREBRAL INFARCTION, UNSPECIFIED (5) CAD (coronary artery disease) Code(s): I25.10 - ATHSCL HEART DISEASE OF [place] CORONARY ARTERY W/O ANG PCTRS (6) Diabetes mellitus Code(s): E11.9 - TYPE 2 DIABETES MELLITUS WITHOUT COMPLICATIONS (7) Hypokalemia Code(s): E87.6 - HYPOKALEMIA Assessment/Plan Admitted to monitor bed Serial CE negative Cardio, Neuro consults are appreciated Contaminated UCX; to resend it. AM labs. Pts condition was d/w her nurse, pt and pts
[2018-06-25] MEDS: INSULIN (LEVEMIR) 100 UNITS/ML UNITS SQ SCH (21:56)
[2018-06-25] MEDS: ATORVASTATIN CA 80 MG TABLET (FP) PO SCH (21:59)
[2018-06-26 05:56] LABS: HEMATOCRIT 34.1 % (32.4-45.2); HEMOGLOBIN 11.2 GM/dL (10.7-15.3); MCH 26.5 pg (25.7-33.7); MEAN CELL VOLUME 80.2 fl (80-96); MEAN PLT VOLUME 9.6 fl (7.5-11.1); PLATELET COUNT 196 K/MM3 (134-434); RBC 4.25 M/mm3 (3.60-5.2); RDW 16.2 % (11.6-15.6); WHITE BLOOD COUNT 8.3 K/mm3 (4.0-10.0)
[2018-06-26] MEDS: INSULIN SLIDING SCALE (NOVOLOG) 1 VIAL SQ SCH ×4 (06:14→22:09)
[2018-06-26 06:15] LABS: ANION GAP 9 MMOL/L (8-16); BLOOD UREA NITROGEN 21 mg/dL (7-18); CALCIUM 8.2 mg/dL (8.5-10.1); CHLORIDE 107 mmol/L (98-107); CO2 28 mmol/L (21-32); CREATININE 1.2 mg/dL (0.55-1.3); GLUCOSE,RANDOM 99 mg/dL (74-106); POTASSIUM 3.5 mmol/L (3.5-5.1); SODIUM 144 mmol/L (136-145)
[2018-06-26] MEDS: METOPROLOL TARTRATE 50 MG TABLET (FP) PO SCH ×3 (06:15→22:08)
[2018-06-26] MEDS: FUROSEMIDE 20 MG TABLET (FP) PO SCH ×2 (06:15→13:31)
[2018-06-26 06:16] LABS: ALBUMIN 2.8 g/dl (3.4-5.0); ALK PHOS 118 U/L (45-117); BILIRUBIN,TOTAL 0.7 mg/dL (0.2-1); SGOT/AST 17 U/L (15-37); SGPT/ALT 20 U/L (13-61); TOT PROT 5.6 g/dl (6.4-8.2)
[2018-06-26] MEDS: TAMSULOSIN HCL 0.4 MG CAP PO SCH (09:13)
[2018-06-26] MEDS: RANOLAZINE E.R. 500 MG TABLET (FP) PO SCH ×2 (09:14→22:08)
[2018-06-26] MEDS: LISINOPRIL 20 MG TABLET (FP) PO SCH (09:14)
[2018-06-26] MEDS: ASCORBIC ACID 500 MG TABLET (FP) PO SCH (09:14)
[2018-06-26] MEDS: FERROUS SO4 325 MG TABLET (FP) PO SCH (09:14)
[2018-06-26] MEDS: PANTOPRAZOLE 40 MG TABLET (FP) PO SCH (09:14)
[2018-06-26] MEDS: FLUoxetine HCL 20 MG CAPSULE (FP) PO SCH (09:14)
[2018-06-26] MEDS: sitaGLIPtin PHOSPHATE 50 MG TABLET PO SCH ×2 (09:14→17:03)
[2018-06-26] MEDS: APIXABAN 5 MG TABLET PO SCH ×2 (09:14→22:08)
[2018-06-26] MEDS: metFORMIN HCL 500 MG TABLET (FP) PO SCH ×2 (09:14→17:03)
--- NOTE | 2018-06-26 09:26 | PN ---
Progress Note, Physician History of Present Illness: Pt is sitting comfortablty in the lounge chair. Pt w/o CP, SOB, palp abd pain Pt's at bedside, states that pt is better today. - Current Medication List Current Medications: Active Medications Apixaban (Eliquis -) 5 mg PO BID [facility] Last Admin: 06/26/18 09:14 Dose: 5 mg Ascorbic Acid (Vitamin C -) 500 mg PO DAILY [facility] Last Admin: 06/26/18 09:14 Dose: 500 mg Atorvastatin Calcium (Lipitor -) 80 mg PO HS [facility] Last Admin: 06/25/18 21:59 Dose: 80 mg Ferrous Sulfate (Feosol -) 325 mg PO DAILY@0800 [facility] Last Admin: 06/26/18 09:14 Dose: 325 mg Fluoxetine HCl (Prozac -) 20 mg PO DAILY [facility] Last Admin: 06/26/18 09:14 Dose: 20 mg Furosemide (Lasix -) 20 mg PO BID@0600,1400 [facility] Last Admin: 06/26/18 06:15 Dose: 20 mg Insulin Aspart (Novolog Vial Sliding Scale -) 1 vial SQ [facility]; Protocol Last Admin: 06/26/18 06:14 Dose: Not Given Insulin Detemir (Levemir Vial) 16 units SQ [facility] Last Admin: 06/25/18 21:56 Dose: 16 unit Lisinopril (Prinivil) 20 mg PO DAILY [facility] Last Admin: 06/26/18 09:14 Dose: 20 mg Metformin HCl (Glucophage -) 1,000 mg PO BIDAC [facility] Last Admin: 06/26/18 09:14 Dose: 1,000 mg Metoprolol Tartrate (Lopressor -) 75 mg PO TID [facility] Last Admin: 06/26/18 06:15 Dose: 75 mg Pantoprazole Sodium (Protonix -) 40 mg PO DAILY [facility] Last Admin: 06/26/18 09:14 Dose: 40 mg Ranolazine (Ranexa -) 500 mg PO BID [facility] Last Admin: 06/26/18 09:14 Dose: 500 mg Sitagliptin Phosphate (Januvia -) 50 mg PO BIDAC [facility] Last Admin: 06/26/18 09:14 Dose: 50 mg Tamsulosin HCl (Flomax -) 0.4 mg PO DAILY@0830 [facility] Last Admin: 06/26/18 09:13 Dose: 0.4 mg - Objective Vital Signs: Vital Signs Temperature 98.3 F 06/26/18 05:34 Pulse Rate 74 06/26/18 05:34 Respiratory Rate 18 06/26/18 09:00 Blood Pressure 148/85 06/26/18 05:34 O2 Sat by Pulse Oximetry (%) 96 06/26/18 09:00 Constitutional: Yes: No Distress, Calm Cardiovascular: Yes: Regular Rate and Rhythm, S1, S2 Respiratory: Yes: Regular, Other (coarse BS bilat at bases). No: Rales Gastrointestinal: Yes: Normal Bowel Sounds, Soft. No: Tenderness Edema: No Neurological: Yes: Alert, Oriented Labs: CBC, BMP 06/26/18 05:30 06/26/18 05:30 INR, PTT INR 1.68 (0.83-1.09) H 06/24/18 05:39 Problem List - Problems (1) TIA (transient ischemic attack) Code(s): G45.9 - TRANSIENT CEREBRAL ISCHEMIC ATTACK, UNSPECIFIED (2) Chest pain Code(s): R07.9 - CHEST PAIN, UNSPECIFIED Qualifiers: Chest pain type: unspecified Qualified Code(s): R07.9 - Chest pain, unspecified (3) Abnormal urine Code(s): R82.90 - UNSPECIFIED ABNORMAL FINDINGS IN URINE (4) CVA (cerebral vascular accident) Code(s): I63.9 - CEREBRAL INFARCTION, UNSPECIFIED (5) CAD (coronary artery disease) Code(s): I25.10 - ATHSCL HEART DISEASE OF [place] CORONARY ARTERY W/O ANG PCTRS Qualifiers: Coronary Disease-Associated Artery/Lesion type: [place] artery [place] vs. transplanted heart: [place] heart Associated angina: without angina Qualified Code(s): I25.10 - Atherosclerotic heart disease of [place] coronary artery without angina pectoris (6) Diabetes mellitus Code(s): E11.9 - TYPE 2 DIABETES MELLITUS WITHOUT COMPLICATIONS Qualifiers: Diabetes mellitus type: type 2 (7) Hypokalemia Code(s): E87.6 - HYPOKALEMIA Assessment/Plan Admitted to monitor bed Serial CE negative Cardio, Neuro consults are appreciated To f/u UCX Pending MRI AM labs. Pts condition was d/w her nurse, pt and pts
--- NOTE | 2018-06-26 10:52 | PN ---
Progress Note, Physician History of Present Illness: Denies further chest pain or palpitations, dyspnea. OOB to chair. - Current Medication List Current Medications: Active Medications Apixaban (Eliquis -) 5 mg PO BID [facility] Last Admin: 06/26/18 09:14 Dose: 5 mg Ascorbic Acid (Vitamin C -) 500 mg PO DAILY [facility] Last Admin: 06/26/18 09:14 Dose: 500 mg Atorvastatin Calcium (Lipitor -) 80 mg PO [facility] Last Admin: 06/25/18 21:59 Dose: 80 mg Ferrous Sulfate (Feosol -) 325 mg PO DAILY@0800 [facility] Last Admin: 06/26/18 09:14 Dose: 325 mg Fluoxetine HCl (Prozac -) 20 mg PO DAILY [facility] Last Admin: 06/26/18 09:14 Dose: 20 mg Furosemide (Lasix -) 20 mg PO BID@0600,1400 [facility] Last Admin: 06/26/18 06:15 Dose: 20 mg Insulin Aspart (Novolog Vial Sliding Scale -) 1 vial SQ [facility]; Protocol Last Admin: 06/26/18 06:14 Dose: Not Given Insulin Detemir (Levemir Vial) 16 units SQ [facility] Last Admin: 06/25/18 21:56 Dose: 16 unit Lisinopril (Prinivil) 20 mg PO DAILY [facility] Last Admin: 06/26/18 09:14 Dose: 20 mg Metformin HCl (Glucophage -) 1,000 mg PO BIDAC [facility] Last Admin: 06/26/18 09:14 Dose: 1,000 mg Metoprolol Tartrate (Lopressor -) 75 mg PO TID [facility] Last Admin: 06/26/18 06:15 Dose: 75 mg Pantoprazole Sodium (Protonix -) 40 mg PO DAILY [facility] Last Admin: 06/26/18 09:14 Dose: 40 mg Ranolazine (Ranexa -) 500 mg PO BID [facility] Last Admin: 06/26/18 09:14 Dose: 500 mg Sitagliptin Phosphate (Januvia -) 50 mg PO BIDAC [facility] Last Admin: 06/26/18 09:14 Dose: 50 mg Tamsulosin HCl (Flomax -) 0.4 mg PO DAILY@0830 [facility] Last Admin: 06/26/18 09:13 Dose: 0.4 mg - Objective Vital Signs: Vital Signs Temperature 98.4 F 06/26/18 10:00 Pulse Rate 73 06/26/18 10:00 Respiratory Rate 18 06/26/18 10:00 Blood Pressure 141/87 06/26/18 10:00 O2 Sat by Pulse Oximetry (%) 96 06/26/18 09:00 Constitutional: Yes: No Distress, Calm, Thin Neck: Yes: Supple Cardiovascular: Yes: Pulse Irregular Respiratory: Yes: Regular, CTA Bilaterally Gastrointestinal: Yes: Normal Bowel Sounds, Soft Edema: No Labs: CBC, BMP 06/26/18 05:30 06/26/18 05:30 INR, PTT INR 1.68 (0.83-1.09) H 06/24/18 05:39 - ....Imaging EKG: Report Reviewed (Tele: Afib v-paced) Problem List - Problems (1) Demand ischemia Code(s): I24.8 - OTHER FORMS OF ACUTE ISCHEMIC HEART DISEASE (2) CAD (coronary artery disease) Code(s): I25.10 - ATHSCL HEART DISEASE OF [place] CORONARY ARTERY W/O ANG PCTRS Qualifiers: Coronary Disease-Associated Artery/Lesion type: [place] artery [place] vs. transplanted heart: [place] heart Associated angina: without angina Qualified Code(s): I25.10 - Atherosclerotic heart disease of [place] coronary artery without angina pectoris (3) Chest pain Code(s): R07.9 - CHEST PAIN, UNSPECIFIED Qualifiers: Chest pain type: unspecified Qualified Code(s): R07.9 - Chest pain, unspecified (4) A-fib Code(s): I48.91 - UNSPECIFIED ATRIAL FIBRILLATION Qualifiers: Atrial fibrillation type: persistent Qualified Code(s): I48.1 - Persistent atrial fibrillation (5) Angiodysplasia of colon with hemorrhage Code(s): K55.21 - ANGIODYSPLASIA OF COLON WITH HEMORRHAGE (6) CVA (cerebral vascular accident) Code(s): I63.9 - CEREBRAL INFARCTION, UNSPECIFIED Qualifiers: CVA mechanism: embolism (7) Diastolic dysfunction Code(s): I51.89 - OTHER ILL-DEFINED HEART DISEASES (8) Sick sinus syndrome Code(s): I49.5 - SICK SINUS SYNDROME (9) Diabetes mellitus Code(s): E11.9 - TYPE 2 DIABETES MELLITUS WITHOUT COMPLICATIONS Qualifiers: Diabetes mellitus type: type 2 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 use Diabetes mellitus complication status: without complication Qualified Code(s): E11.9 - Type 2 diabetes mellitus without complications (10) H/O mitral valve replacement Code(s): Z95.2 - PRESENCE OF PROSTHETIC HEART VALVE (11) HTN (hypertension) Code(s): I10 - ESSENTIAL (PRIMARY) HYPERTENSION Qualifiers: Hypertension type: essential hypertension Qualified Code(s): I10 - Essential (primary) hypertension (12) Hyperlipidemia Code(s): E78.5 - HYPERLIPIDEMIA, UNSPECIFIED Qualifiers: Hyperlipidemia type: pure hypercholesterolemia Qualified Code(s): E78.00 - Pure hypercholesterolemia, unspecified; E78.0 - Pure hypercholesterolemia (13) Pacemaker Code(s): Z95.0 - PRESENCE OF CARDIAC PACEMAKER Assessment/Plan 04/30/2018 Echo: Normal LV size and fxn, severe TR RVSP 50-60 mmHg, mild MR 12/17/2016 reveal: 03/2009 acute systolic CHF and MD, R&LHc 90% distal OM1, 60% D1, preserved LV fxn, elevated LVEDP [place] severe posterior leaflet prolapse with severe MR->MV annuloplasty repair, afib, sinus arrest->PPM, CAD left alone. [facility] Echo: 06/28/16 normal biventricular fxn, COSMO, mod TR, MV ring Nuc stress 09/13/2016 Anterolateral ischemia/infarct SDS 3 EF 82%, abnl ecg changes 1. Chest pain syndrome in a patient with known history of coronary artery disease demand ischemic injury angina pectoris 2. Diastolic left ventricular dysfunction with clinical class 0 [place] [employer] classification left ventricular failure 3. Permanent atrial fibrillation [id number] score of 9, on anticoagulation therapy with Eliquis 4. Sick sinus syndrome post permanent pacemaker implantation 5. Post mitral valve repair 6. HTN 7. DM 8. Hypercholesterolemia 9. 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 COPD 11. CKD PLAN: 1. Continue Eliquis 5 bid 2. Continue Lipitor 80 qhs 3. Continue Lopressor 75 tid 4. Continue Lisinopril 20 qd and Lasix 20 bid titrate dosage as needed with close monitoring of renal function 5. Continue Ranexa 500 bid 6. As outlined in the prior notes patient to followup with Dr. Dread Cowan/ cardiology/[facility], to consider Watchman as outpatient if Eliquis compliance is sub-optimal or recurrent bleeding/history of GI bleed- vascular ectasia
[2018-06-26] MEDS ORDERED: INSULIN SLIDING SCALE (NOVOLOG) 1 VIAL SQ ONE (11:53)
[2018-06-26] MEDS: ATORVASTATIN CA 80 MG TABLET (FP) PO SCH (22:08)
[2018-06-26] MEDS: INSULIN (LEVEMIR) 100 UNITS/ML UNITS SQ SCH (22:09)
[2018-06-27] MEDS: metFORMIN HCL 500 MG TABLET (FP) PO SCH ×2 (06:55→16:34)
[2018-06-27] MEDS: sitaGLIPtin PHOSPHATE 50 MG TABLET PO SCH ×2 (06:55→16:34)
[2018-06-27] MEDS: METOPROLOL TARTRATE 50 MG TABLET (FP) PO SCH ×3 (06:55→21:05)
[2018-06-27] MEDS: FUROSEMIDE 20 MG TABLET (FP) PO SCH ×2 (06:56→14:32)
[2018-06-27] MEDS: INSULIN SLIDING SCALE (NOVOLOG) 1 VIAL SQ SCH ×4 (06:56→21:07)
[2018-06-27 07:37] LABS: ANION GAP 8 MMOL/L (8-16); BLOOD UREA NITROGEN 27 mg/dL (7-18); CALCIUM 8.6 mg/dL (8.5-10.1); CHLORIDE 105 mmol/L (98-107); CO2 30 mmol/L (21-32); CREATININE 1.1 mg/dL (0.55-1.3); GLUCOSE,RANDOM 98 mg/dL (74-106); MAGNESIUM 1.5 mg/dL (1.8-2.4); POTASSIUM 3.5 mmol/L (3.5-5.1); SODIUM 143 mmol/L (136-145)
[2018-06-27] MEDS ORDERED: PT OWN MED DRAWER 7, Y5N ONE (10:06)
[2018-06-27] MEDS: LISINOPRIL 20 MG TABLET (FP) PO SCH (10:08)
[2018-06-27] MEDS: ASCORBIC ACID 500 MG TABLET (FP) PO SCH (10:08)
[2018-06-27] MEDS: APIXABAN 5 MG TABLET PO SCH ×2 (10:08→21:05)
[2018-06-27] MEDS: RANOLAZINE E.R. 500 MG TABLET (FP) PO SCH ×2 (10:08→21:05)
[2018-06-27] MEDS: PANTOPRAZOLE 40 MG TABLET (FP) PO SCH (10:08)
[2018-06-27] MEDS: TAMSULOSIN HCL 0.4 MG CAP PO SCH (10:09)
[2018-06-27] MEDS: FERROUS SO4 325 MG TABLET (FP) PO SCH (10:09)
[2018-06-27] MEDS: FLUoxetine HCL 20 MG CAPSULE (FP) PO SCH (10:13)
--- NOTE | 2018-06-27 11:33 | PN ---
Progress Note, Physician History of Present Illness: Denies further chest pain or palpitations, dyspnea. OOB to chair. - Current Medication List Current Medications: Active Medications Apixaban (Eliquis -) 5 mg PO BID [facility] Last Admin: 06/27/18 10:08 Dose: 5 mg Ascorbic Acid (Vitamin C -) 500 mg PO DAILY [facility] Last Admin: 06/27/18 10:08 Dose: 500 mg Atorvastatin Calcium (Lipitor -) 80 mg PO [facility] Last Admin: 06/26/18 22:08 Dose: 80 mg Ferrous Sulfate (Feosol -) 325 mg PO DAILY@0800 [facility] Last Admin: 06/27/18 10:09 Dose: 325 mg Fluoxetine HCl (Prozac -) 20 mg PO DAILY [facility] Last Admin: 06/27/18 10:13 Dose: Not Given Furosemide (Lasix -) 20 mg PO BID@0600,1400 [facility] Last Admin: 06/27/18 06:56 Dose: 20 mg Insulin Aspart (Novolog Vial Sliding Scale -) 1 vial SQ [facility]; Protocol Last Admin: 06/27/18 06:56 Dose: Not Given Insulin Detemir (Levemir Vial) 16 units SQ [facility] Last Admin: 06/26/18 22:09 Dose: Not Given Lisinopril (Prinivil) 20 mg PO DAILY [facility] Last Admin: 06/27/18 10:08 Dose: 20 mg Metformin HCl (Glucophage -) 1,000 mg PO BIDAC [facility] Last Admin: 06/27/18 06:55 Dose: 1,000 mg Metoprolol Tartrate (Lopressor -) 75 mg PO TID [facility] Last Admin: 06/27/18 06:55 Dose: 75 mg Pantoprazole Sodium (Protonix -) 40 mg PO DAILY [facility] Last Admin: 06/27/18 10:08 Dose: 40 mg Ranolazine (Ranexa -) 500 mg PO BID [facility] Last Admin: 06/27/18 10:08 Dose: 500 mg Sitagliptin Phosphate (Januvia -) 50 mg PO BIDAC [facility] Last Admin: 06/27/18 06:55 Dose: 50 mg Tamsulosin HCl (Flomax -) 0.4 mg PO DAILY@0830 [facility] Last Admin: 06/27/18 10:09 Dose: 0.4 mg - Objective Vital Signs: Vital Signs Temperature 98.1 F 06/27/18 05:57 Pulse Rate 76 06/27/18 05:57 Respiratory Rate 16 06/27/18 05:57 Blood Pressure 132/57 L 06/27/18 05:57 O2 Sat by Pulse Oximetry (%) 97 06/26/18 20:51 Constitutional: Yes: No Distress, Calm, Thin Neck: Yes: Supple Cardiovascular: Yes: Regular Rate and Rhythm Respiratory: Yes: Regular, Diminished Gastrointestinal: Yes: Normal Bowel Sounds, Soft Edema: No Labs: CBC, BMP 06/26/18 05:30 06/27/18 06:00 INR, PTT INR 1.68 (0.83-1.09) H 06/24/18 05:39 Problem List - Problems (1) Demand ischemia Code(s): I24.8 - OTHER FORMS OF ACUTE ISCHEMIC HEART DISEASE (2) CAD (coronary artery disease) Code(s): I25.10 - ATHSCL HEART DISEASE OF [place] CORONARY ARTERY W/O ANG PCTRS Qualifiers: Coronary Disease-Associated Artery/Lesion type: [place] artery [place] vs. transplanted heart: [place] heart Associated angina: without angina Qualified Code(s): I25.10 - Atherosclerotic heart disease of [place] coronary artery without angina pectoris (3) Chest pain Code(s): R07.9 - CHEST PAIN, UNSPECIFIED Qualifiers: Chest pain type: unspecified Qualified Code(s): R07.9 - Chest pain, unspecified (4) A-fib Code(s): I48.91 - UNSPECIFIED ATRIAL FIBRILLATION Qualifiers: Atrial fibrillation type: persistent Qualified Code(s): I48.1 - Persistent atrial fibrillation (5) Angiodysplasia of colon with hemorrhage Code(s): K55.21 - ANGIODYSPLASIA OF COLON WITH HEMORRHAGE (6) CVA (cerebral vascular accident) Code(s): I63.9 - CEREBRAL INFARCTION, UNSPECIFIED Qualifiers: CVA mechanism: embolism (7) Diastolic dysfunction Code(s): I51.89 - OTHER ILL-DEFINED HEART DISEASES (8) Sick sinus syndrome Code(s): I49.5 - SICK SINUS SYNDROME (9) Diabetes mellitus Code(s): E11.9 - TYPE 2 DIABETES MELLITUS WITHOUT COMPLICATIONS Qualifiers: Diabetes mellitus type: type 2 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 use Diabetes mellitus complication status: without complication Qualified Code(s): E11.9 - Type 2 diabetes mellitus without complications (10) H/O mitral valve replacement Code(s): Z95.2 - PRESENCE OF PROSTHETIC HEART VALVE (11) HTN (hypertension) Code(s): I10 - ESSENTIAL (PRIMARY) HYPERTENSION Qualifiers: Hypertension type: essential hypertension Qualified Code(s): I10 - Essential (primary) hypertension (12) Hyperlipidemia Code(s): E78.5 - HYPERLIPIDEMIA, UNSPECIFIED Qualifiers: Hyperlipidemia type: pure hypercholesterolemia Qualified Code(s): E78.00 - Pure hypercholesterolemia, unspecified; E78.0 - Pure hypercholesterolemia (13) Pacemaker Code(s): Z95.0 - PRESENCE OF CARDIAC PACEMAKER Assessment/Plan 04/30/2018 Echo: Normal LV size and fxn, severe TR RVSP 50-60 mmHg, mild MR 12/17/2016 reveal: 03/2009 acute systolic CHF and [place], R&LHc 90% distal OM1, 60% D1, preserved LV fxn, elevated LVEDP [place] severe posterior leaflet prolapse with severe MR->MV annuloplasty repair, afib, sinus arrest->PPM, CAD left alone. [facility] Echo: 06/28/16 normal biventricular fxn, COSMO, mod TR, MV ring Nuc stress 09/13/2016 Anterolateral ischemia/infarct SDS 3 EF 82%, abnl ecg changes 1. Chest pain syndrome in a patient with known history of coronary artery disease demand ischemic injury angina pectoris 2. Diastolic left ventricular dysfunction with clinical class 0 [place] Heart Association classification left ventricular failure 3. Permanent atrial fibrillation [id number] score of 9, on anticoagulation therapy with Eliquis 4. Sick sinus syndrome post permanent pacemaker implantation 5. Post mitral valve repair 6. HTN 7. DM 8. Hypercholesterolemia 9. 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 COPD 11. CKD PLAN: 1. Continue Eliquis 5 bid 2. Continue Lipitor 80 qhs 3. Continue Lopressor 75 tid 4. Continue Lisinopril 20 qd and Lasix 20 bid titrate dosage as needed with close monitoring of renal function 5. Continue Ranexa 500 bid 6. As outlined in the prior notes patient to followup with Dr. Dread Cowan/ cardiology/[facility], to consider Watchman as outpatient if Eliquis compliance is sub-optimal or recurrent bleeding/history of GI bleed- vascular ectasia
--- NOTE | 2018-06-27 16:55 | PN ---
Progress Note (short form) - Note Progress Note: No further events similar to one that brought her in to hospital. She is at her baseline, unable to have MRI-has a PPM. Event ddx. TIA or more likely a partial sz. her exam/CT head are unrevealing, would not intervene further, no indication for placement on AED. Thank you, Mariah Johns MD
--- NOTE | 2018-06-27 20:09 | PN ---
Progress Note, Physician History of Present Illness: Pt is sitting comfortably in bed. Pt w/o CP, SOB, palp abd pain Pt's at bedside, states that pt is better today. - Current Medication List Current Medications: Active Medications Apixaban (Eliquis -) 5 mg PO BID [facility] Last Admin: 06/27/18 10:08 Dose: 5 mg Ascorbic Acid (Vitamin C -) 500 mg PO DAILY [facility] Last Admin: 06/27/18 10:08 Dose: 500 mg Atorvastatin Calcium (Lipitor -) 80 mg PO [facility] Last Admin: 06/26/18 22:08 Dose: 80 mg Ferrous Sulfate (Feosol -) 325 mg PO DAILY@0800 [facility] Last Admin: 06/27/18 10:09 Dose: 325 mg Fluoxetine HCl (Prozac -) 20 mg PO DAILY [facility] Last Admin: 06/27/18 10:13 Dose: Not Given Furosemide (Lasix -) 20 mg PO BID@0600,1400 [facility] Last Admin: 06/27/18 14:32 Dose: 20 mg Insulin Aspart (Novolog Vial Sliding Scale -) 1 vial SQ [facility]; Protocol Last Admin: 06/27/18 17:44 Dose: Not Given Insulin Detemir (Levemir Vial) 16 units SQ [facility] Last Admin: 06/26/18 22:09 Dose: Not Given Lisinopril (Prinivil) 20 mg PO DAILY [facility] Last Admin: 06/27/18 10:08 Dose: 20 mg Metformin HCl (Glucophage -) 1,000 mg PO BIDAC [facility] Last Admin: 06/27/18 16:34 Dose: 1,000 mg Metoprolol Tartrate (Lopressor -) 75 mg PO TID [facility] Last Admin: 06/27/18 14:32 Dose: 75 mg Pantoprazole Sodium (Protonix -) 40 mg PO DAILY [facility] Last Admin: 06/27/18 10:08 Dose: 40 mg Ranolazine (Ranexa -) 500 mg PO BID [facility] Last Admin: 06/27/18 10:08 Dose: 500 mg Sitagliptin Phosphate (Januvia -) 50 mg PO BIDAC [facility] Last Admin: 06/27/18 16:34 Dose: 50 mg Tamsulosin HCl (Flomax -) 0.4 mg PO DAILY@0830 [facility] Last Admin: 06/27/18 10:09 Dose: 0.4 mg - Objective Vital Signs: Vital Signs Temperature 98.3 F 06/27/18 17:25 Pulse Rate 68 06/27/18 17:25 Respiratory Rate 18 06/27/18 17:25 Blood Pressure 135/69 06/27/18 17:25 O2 Sat by Pulse Oximetry (%) 96 06/27/18 09:00 Constitutional: Yes: No Distress, Calm Cardiovascular: Yes: Regular Rate and Rhythm, S1, S2 Respiratory: Yes: Regular, CTA Bilaterally. No: Rales Gastrointestinal: Yes: Normal Bowel Sounds, Soft. No: Tenderness Edema: No Neurological: Yes: Alert, Oriented Labs: CBC, BMP 06/26/18 05:30 06/27/18 06:00 INR, PTT INR 1.68 (0.83-1.09) H 06/24/18 05:39 Problem List - Problems (1) TIA (transient ischemic attack) Code(s): G45.9 - TRANSIENT CEREBRAL ISCHEMIC ATTACK, UNSPECIFIED (2) Chest pain Code(s): R07.9 - CHEST PAIN, UNSPECIFIED Qualifiers: Chest pain type: unspecified Qualified Code(s): R07.9 - Chest pain, unspecified (3) Abnormal urine Code(s): R82.90 - UNSPECIFIED ABNORMAL FINDINGS IN URINE (4) CVA (cerebral vascular accident) Code(s): I63.9 - CEREBRAL INFARCTION, UNSPECIFIED (5) CAD (coronary artery disease) Code(s): I25.10 - ATHSCL HEART DISEASE OF [place] CORONARY ARTERY W/O ANG PCTRS Qualifiers: Coronary Disease-Associated Artery/Lesion type: [place] artery [place] vs. transplanted heart: [place] heart Associated angina: without angina Qualified Code(s): I25.10 - Atherosclerotic heart disease of [place] coronary artery without angina pectoris (6) Diabetes mellitus Code(s): E11.9 - TYPE 2 DIABETES MELLITUS WITHOUT COMPLICATIONS Qualifiers: Diabetes mellitus type: type 2 (7) Hypokalemia Code(s): E87.6 - HYPOKALEMIA Assessment/Plan Admitted to monitor bed Serial CE negative Cardio, Neuro consults are appreciated To f/u UCX Tof/u with Neuro about further evaluation tests (pt cannot have MRI. secondary to PPM) AM labs. Pts condition was d/w her nurse, pt and pts
[2018-06-27] MEDS: ATORVASTATIN CA 80 MG TABLET (FP) PO SCH (21:05)
[2018-06-27] MEDS: INSULIN (LEVEMIR) 100 UNITS/ML UNITS SQ SCH (21:06)
[2018-06-28] MEDS: FUROSEMIDE 20 MG TABLET (FP) PO SCH ×2 (06:51→13:46)
[2018-06-28] MEDS: METOPROLOL TARTRATE 50 MG TABLET (FP) PO SCH ×3 (06:52→21:51)
[2018-06-28] MEDS: INSULIN SLIDING SCALE (NOVOLOG) 1 VIAL SQ SCH ×4 (06:54→22:32)
[2018-06-28] MEDS: metFORMIN HCL 500 MG TABLET (FP) PO SCH ×2 (07:04→17:50)
[2018-06-28] MEDS: sitaGLIPtin PHOSPHATE 50 MG TABLET PO SCH ×2 (07:04→17:50)
[2018-06-28] MEDS: FLUoxetine HCL 20 MG CAPSULE (FP) PO SCH (10:00)
[2018-06-28] MEDS: FERROUS SO4 325 MG TABLET (FP) PO SCH (10:08)
[2018-06-28] MEDS: PANTOPRAZOLE 40 MG TABLET (FP) PO SCH (10:08)
[2018-06-28] MEDS: RANOLAZINE E.R. 500 MG TABLET (FP) PO SCH ×2 (10:08→21:51)
[2018-06-28] MEDS: ASCORBIC ACID 500 MG TABLET (FP) PO SCH (10:09)
[2018-06-28] MEDS: LISINOPRIL 20 MG TABLET (FP) PO SCH (10:09)
[2018-06-28] MEDS: TAMSULOSIN HCL 0.4 MG CAP PO SCH (10:09)
[2018-06-28] MEDS: APIXABAN 5 MG TABLET PO SCH ×2 (10:09→21:51)
--- NOTE | 2018-06-28 11:30 | PN ---
Progress Note, Physician History of Present Illness: Denies further chest pain or palpitations, dyspnea. OOB to chair. - Current Medication List Current Medications: Active Medications Apixaban (Eliquis -) 5 mg PO BID [facility] Last Admin: 06/28/18 10:09 Dose: 5 mg Ascorbic Acid (Vitamin C -) 500 mg PO DAILY [facility] Last Admin: 06/28/18 10:09 Dose: 500 mg Atorvastatin Calcium (Lipitor -) 80 mg PO [facility] Last Admin: 06/27/18 21:05 Dose: 80 mg Ferrous Sulfate (Feosol -) 325 mg PO DAILY@0800 [facility] Last Admin: 06/28/18 10:08 Dose: 325 mg Fluoxetine HCl (Prozac -) 20 mg PO DAILY [facility] Last Admin: 06/28/18 10:00 Dose: Not Given Furosemide (Lasix -) 20 mg PO BID@0600,1400 [facility] Last Admin: 06/28/18 06:51 Dose: 20 mg Insulin Aspart (Novolog Vial Sliding Scale -) 1 vial SQ [facility]; Protocol Last Admin: 06/28/18 11:17 Dose: 2 unit Insulin Detemir (Levemir Vial) 16 units SQ [facility] Last Admin: 06/27/18 21:06 Dose: 16 unit Lisinopril (Prinivil) 20 mg PO DAILY [facility] Last Admin: 06/28/18 10:09 Dose: 20 mg Metformin HCl (Glucophage -) 1,000 mg PO BIDAC [facility] Last Admin: 06/28/18 07:04 Dose: Not Given Metoprolol Tartrate (Lopressor -) 75 mg PO TID [facility] Last Admin: 06/28/18 06:52 Dose: 75 mg Pantoprazole Sodium (Protonix -) 40 mg PO DAILY [facility] Last Admin: 06/28/18 10:08 Dose: 40 mg Ranolazine (Ranexa -) 500 mg PO BID [facility] Last Admin: 06/28/18 10:08 Dose: 500 mg Sitagliptin Phosphate (Januvia -) 50 mg PO BIDAC [facility] Last Admin: 06/28/18 07:04 Dose: Not Given Tamsulosin HCl (Flomax -) 0.4 mg PO DAILY@0830 [facility] Last Admin: 06/28/18 10:09 Dose: 0.4 mg - Objective Vital Signs: Vital Signs Temperature 97.6 F 06/28/18 07:20 Pulse Rate 76 06/28/18 07:20 Respiratory Rate 20 06/28/18 07:20 Blood Pressure 161/80 06/28/18 07:20 O2 Sat by Pulse Oximetry (%) 95 06/27/18 21:00 Constitutional: Yes: No Distress, Calm, Thin Neck: Yes: Supple Cardiovascular: Yes: Pulse Irregular Respiratory: Yes: Regular, Diminished, On Nasal O2 Gastrointestinal: Yes: Normal Bowel Sounds, Soft Edema: No Labs: CBC, BMP 06/26/18 05:30 06/27/18 06:00 INR, PTT INR 1.68 (0.83-1.09) H 06/24/18 05:39 - ....Imaging EKG: Report Reviewed (Tele: afib occ paced) Problem List - Problems (1) Demand ischemia Code(s): I24.8 - OTHER FORMS OF ACUTE ISCHEMIC HEART DISEASE (2) CAD (coronary artery disease) Code(s): I25.10 - ATHSCL HEART DISEASE OF [place] CORONARY ARTERY W/O ANG PCTRS Qualifiers: Coronary Disease-Associated Artery/Lesion type: [place] artery [place] vs. transplanted heart: [place] heart Associated angina: without angina Qualified Code(s): I25.10 - Atherosclerotic heart disease of [place] coronary artery without angina pectoris (3) Chest pain Code(s): R07.9 - CHEST PAIN, UNSPECIFIED Qualifiers: Chest pain type: unspecified Qualified Code(s): R07.9 - Chest pain, unspecified (4) A-fib Code(s): I48.91 - UNSPECIFIED ATRIAL FIBRILLATION Qualifiers: Atrial fibrillation type: persistent Qualified Code(s): I48.1 - Persistent atrial fibrillation (5) Angiodysplasia of colon with hemorrhage Code(s): K55.21 - ANGIODYSPLASIA OF COLON WITH HEMORRHAGE (6) CVA (cerebral vascular accident) Code(s): I63.9 - CEREBRAL INFARCTION, UNSPECIFIED Qualifiers: CVA mechanism: embolism (7) Diastolic dysfunction Code(s): I51.89 - OTHER ILL-DEFINED HEART DISEASES (8) Sick sinus syndrome Code(s): I49.5 - SICK SINUS SYNDROME (9) Diabetes mellitus Code(s): E11.9 - TYPE 2 DIABETES MELLITUS WITHOUT COMPLICATIONS Qualifiers: Diabetes mellitus type: type 2 Diabetes mellitus termite helper insulin use: without termite helper use Diabetes mellitus complication status: without complication Qualified Code(s): E11.9 - Type 2 diabetes mellitus without complications (10) H/O mitral valve replacement Code(s): Z95.2 - PRESENCE OF PROSTHETIC HEART VALVE (11) HTN (hypertension) Code(s): I10 - ESSENTIAL (PRIMARY) HYPERTENSION Qualifiers: Hypertension type: essential hypertension Qualified Code(s): I10 - Essential (primary) hypertension (12) Hyperlipidemia Code(s): E78.5 - HYPERLIPIDEMIA, UNSPECIFIED Qualifiers: Hyperlipidemia type: pure hypercholesterolemia Qualified Code(s): E78.00 - Pure hypercholesterolemia, unspecified; E78.0 - Pure hypercholesterolemia (13) Pacemaker Code(s): Z95.0 - PRESENCE OF CARDIAC PACEMAKER Assessment/Plan 04/30/2018 Echo: Normal LV size and fxn, severe TR RVSP 50-60 mmHg, mild MR 12/17/2016 reveal: 03/2009 acute systolic CHF and CA, R&LHc 90% distal OM1, 60% D1, preserved LV fxn, elevated LVEDP [place] severe posterior leaflet prolapse with severe MR->MV annuloplasty repair, afib, sinus arrest->PPM, CAD left alone. [facility] Echo: 06/28/16 normal biventricular fxn, COSMO, mod TR, MV ring Nuc stress 09/13/2016 Anterolateral ischemia/infarct SDS 3 EF 82%, abnl ecg changes 1. Chest pain syndrome in a patient with known history of coronary artery disease demand ischemic injury angina pectoris 2. Diastolic left ventricular dysfunction with clinical class 0 [place] [employer] classification left ventricular failure 3. Permanent atrial fibrillation [id number] score of 9, on anticoagulation therapy with Eliquis 4. Sick sinus syndrome post permanent pacemaker implantation 5. Post mitral valve repair 6. HTN 7. DM 8. Hypercholesterolemia 9. 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 COPD 11. CKD 12. Partial seizure suspected PLAN: 1. Continue Eliquis 5 bid 2. Continue Lipitor 80 qhs 3. Continue Lopressor 75 tid 4. Continue Lisinopril 20 qd and Lasix 20 bid titrate dosage as needed with close monitoring of renal function 5. Continue Ranexa 500 bid 6. As outlined in the prior notes patient to followup with Dr. Dread Cowan/ cardiology/[facility], to consider Watchman as outpatient if Eliquis compliance is sub-optimal or recurrent bleeding/history of GI bleed- vascular ectasia 7. No AED per neurology
--- NOTE | 2018-06-28 12:43 | PN ---
Progress Note, Physician History of Present Illness: Pt is sitting comfortably in bed. Pt w/o CP, SOB, palp abd pain Pt's at bedside. - Current Medication List Current Medications: Active Medications Apixaban (Eliquis -) 5 mg PO BID [facility] Last Admin: 06/28/18 10:09 Dose: 5 mg Ascorbic Acid (Vitamin C -) 500 mg PO DAILY [facility] Last Admin: 06/28/18 10:09 Dose: 500 mg Atorvastatin Calcium (Lipitor -) 80 mg PO HS [facility] Last Admin: 06/27/18 21:05 Dose: 80 mg Ferrous Sulfate (Feosol -) 325 mg PO DAILY@0800 [facility] Last Admin: 06/28/18 10:08 Dose: 325 mg Fluoxetine HCl (Prozac -) 20 mg PO DAILY [facility] Last Admin: 06/28/18 10:00 Dose: Not Given Furosemide (Lasix -) 20 mg PO BID@0600,1400 [facility] Last Admin: 06/28/18 06:51 Dose: 20 mg Insulin Aspart (Novolog Vial Sliding Scale -) 1 vial SQ [facility]; Protocol Last Admin: 06/28/18 11:17 Dose: 2 unit Insulin Detemir (Levemir Vial) 16 units SQ [facility] Last Admin: 06/27/18 21:06 Dose: 16 unit Lisinopril (Prinivil) 20 mg PO DAILY [facility] Last Admin: 06/28/18 10:09 Dose: 20 mg Metformin HCl (Glucophage -) 1,000 mg PO BIDAC [facility] Last Admin: 06/28/18 07:04 Dose: Not Given Metoprolol Tartrate (Lopressor -) 75 mg PO TID [facility] Last Admin: 06/28/18 06:52 Dose: 75 mg Pantoprazole Sodium (Protonix -) 40 mg PO DAILY [facility] Last Admin: 06/28/18 10:08 Dose: 40 mg Ranolazine (Ranexa -) 500 mg PO BID [facility] Last Admin: 06/28/18 10:08 Dose: 500 mg Sitagliptin Phosphate (Januvia -) 50 mg PO BIDAC [facility] Last Admin: 06/28/18 07:04 Dose: Not Given Tamsulosin HCl (Flomax -) 0.4 mg PO DAILY@0830 [facility] Last Admin: 06/28/18 10:09 Dose: 0.4 mg - Objective Vital Signs: Vital Signs Temperature 97.6 F 06/28/18 10:00 Pulse Rate 80 06/28/18 10:00 Respiratory Rate 20 06/28/18 10:00 Blood Pressure 144/76 06/28/18 10:00 O2 Sat by Pulse Oximetry (%) 95 06/28/18 10:00 Constitutional: Yes: No Distress, Calm Cardiovascular: Yes: Regular Rate and Rhythm, S1, S2 Respiratory: Yes: Regular, CTA Bilaterally. No: Rales Gastrointestinal: Yes: Normal Bowel Sounds, Soft. No: Tenderness Edema: No Neurological: Yes: Alert, Oriented Labs: CBC, BMP 06/26/18 05:30 06/27/18 06:00 INR, PTT INR 1.68 (0.83-1.09) H 06/24/18 05:39 Problem List - Problems (1) TIA (transient ischemic attack) Code(s): G45.9 - TRANSIENT CEREBRAL ISCHEMIC ATTACK, UNSPECIFIED (2) Chest pain Code(s): R07.9 - CHEST PAIN, UNSPECIFIED Qualifiers: Chest pain type: unspecified Qualified Code(s): R07.9 - Chest pain, unspecified (3) Abnormal urine Code(s): R82.90 - UNSPECIFIED ABNORMAL FINDINGS IN URINE (4) CVA (cerebral vascular accident) Code(s): I63.9 - CEREBRAL INFARCTION, UNSPECIFIED (5) CAD (coronary artery disease) Code(s): I25.10 - ATHSCL HEART DISEASE OF [place] CORONARY ARTERY W/O ANG PCTRS Qualifiers: Coronary Disease-Associated Artery/Lesion type: [place] artery [place] vs. transplanted heart: [place] heart Associated angina: without angina Qualified Code(s): I25.10 - Atherosclerotic heart disease of [place] coronary artery without angina pectoris (6) Diabetes mellitus Code(s): E11.9 - TYPE 2 DIABETES MELLITUS WITHOUT COMPLICATIONS Qualifiers: Diabetes mellitus type: type 2 (7) Hypokalemia Code(s): E87.6 - HYPOKALEMIA Assessment/Plan Admitted to monitor bed Serial CE negative Cardio, Neuro consults are appreciated Pt is cleared by Neuro for DC; pt cannot resume [facility] program until Saturday and pt' states that cannot take care of her at home. DC planning for Saturday. Pts condition was d/w her nurse, pt and pts
[2018-06-28] MEDS: ATORVASTATIN CA 80 MG TABLET (FP) PO SCH (21:51)
[2018-06-28] MEDS: INSULIN (LEVEMIR) 100 UNITS/ML UNITS SQ SCH (22:32)
[2018-06-29] MEDS: FUROSEMIDE 20 MG TABLET (FP) PO SCH ×2 (06:29→13:19)
[2018-06-29] MEDS: METOPROLOL TARTRATE 50 MG TABLET (FP) PO SCH ×3 (06:29→22:19)
[2018-06-29] MEDS: INSULIN SLIDING SCALE (NOVOLOG) 1 VIAL SQ SCH ×4 (06:31→22:19)
[2018-06-29] MEDS: sitaGLIPtin PHOSPHATE 50 MG TABLET PO SCH ×2 (06:31→17:20)
[2018-06-29] MEDS: metFORMIN HCL 500 MG TABLET (FP) PO SCH ×2 (06:31→17:20)
[2018-06-29] MEDS: RANOLAZINE E.R. 500 MG TABLET (FP) PO SCH ×2 (09:06→22:19)
[2018-06-29] MEDS: LISINOPRIL 20 MG TABLET (FP) PO SCH (09:06)
[2018-06-29] MEDS: ASCORBIC ACID 500 MG TABLET (FP) PO SCH (09:06)
[2018-06-29] MEDS: APIXABAN 5 MG TABLET PO SCH ×2 (09:06→22:19)
[2018-06-29] MEDS: PANTOPRAZOLE 40 MG TABLET (FP) PO SCH (09:06)
[2018-06-29] MEDS: FERROUS SO4 325 MG TABLET (FP) PO SCH (09:06)
[2018-06-29] MEDS: TAMSULOSIN HCL 0.4 MG CAP PO SCH (09:06)
[2018-06-29] MEDS: FLUoxetine HCL 20 MG CAPSULE (FP) PO SCH (09:07)
--- NOTE | 2018-06-29 12:10 | PN ---
Progress Note, Physician History of Present Illness: Denies further chest pain or palpitations, dyspnea. OOB to chair. - Current Medication List Current Medications: Active Medications Apixaban (Eliquis -) 5 mg PO BID [facility] Last Admin: 06/29/18 09:06 Dose: 5 mg Ascorbic Acid (Vitamin C -) 500 mg PO DAILY [facility] Last Admin: 06/29/18 09:06 Dose: 500 mg Atorvastatin Calcium (Lipitor -) 80 mg PO [facility] Last Admin: 06/28/18 21:51 Dose: 80 mg Ferrous Sulfate (Feosol -) 325 mg PO DAILY@0800 [facility] Last Admin: 06/29/18 09:06 Dose: 325 mg Fluoxetine HCl (Prozac -) 20 mg PO DAILY [facility] Last Admin: 06/29/18 09:07 Dose: Not Given Furosemide (Lasix -) 20 mg PO BID@0600,1400 [facility] Last Admin: 06/29/18 06:29 Dose: 20 mg Insulin Aspart (Novolog Vial Sliding Scale -) 1 vial SQ [facility]; Protocol Last Admin: 06/29/18 11:06 Dose: Not Given Insulin Detemir (Levemir Vial) 16 units SQ [facility] Last Admin: 06/28/18 22:32 Dose: 16 unit Lisinopril (Prinivil) 20 mg PO DAILY [facility] Last Admin: 06/29/18 09:06 Dose: 20 mg Metformin HCl (Glucophage -) 1,000 mg PO BIDAC [facility] Last Admin: 06/29/18 06:31 Dose: Not Given Metoprolol Tartrate (Lopressor -) 75 mg PO TID [facility] Last Admin: 06/29/18 06:29 Dose: 75 mg Pantoprazole Sodium (Protonix -) 40 mg PO DAILY [facility] Last Admin: 06/29/18 09:06 Dose: 40 mg Ranolazine (Ranexa -) 500 mg PO BID [facility] Last Admin: 06/29/18 09:06 Dose: 500 mg Sitagliptin Phosphate (Januvia -) 50 mg PO BIDAC [facility] Last Admin: 06/29/18 06:31 Dose: Not Given Tamsulosin HCl (Flomax -) 0.4 mg PO DAILY@0830 [facility] Last Admin: 06/29/18 09:06 Dose: 0.4 mg - Objective Vital Signs: Vital Signs Temperature 98.0 F 06/29/18 10:00 Pulse Rate 84 06/29/18 10:00 Respiratory Rate 18 06/29/18 10:00 Blood Pressure 126/64 06/29/18 10:00 O2 Sat by Pulse Oximetry (%) 94 L 06/29/18 10:00 Constitutional: Yes: No Distress, Calm, Thin Neck: Yes: Supple Cardiovascular: Yes: Pulse Irregular Respiratory: Yes: Regular, Diminished Gastrointestinal: Yes: Normal Bowel Sounds, Soft Edema: No Labs: CBC, BMP 06/26/18 05:30 06/27/18 06:00 INR, PTT INR 1.68 (0.83-1.09) H 06/24/18 05:39 Problem List - Problems (1) Demand ischemia Code(s): I24.8 - OTHER FORMS OF ACUTE ISCHEMIC HEART DISEASE (2) CAD (coronary artery disease) Code(s): I25.10 - ATHSCL HEART DISEASE OF [place] CORONARY ARTERY W/O ANG PCTRS Qualifiers: Coronary Disease-Associated Artery/Lesion type: [place] artery [place] vs. transplanted heart: [place] heart Associated angina: without angina Qualified Code(s): I25.10 - Atherosclerotic heart disease of [place] coronary artery without angina pectoris (3) Chest pain Code(s): R07.9 - CHEST PAIN, UNSPECIFIED Qualifiers: Chest pain type: unspecified Qualified Code(s): R07.9 - Chest pain, unspecified (4) A-fib Code(s): I48.91 - UNSPECIFIED ATRIAL FIBRILLATION Qualifiers: Atrial fibrillation type: persistent Qualified Code(s): I48.1 - Persistent atrial fibrillation (5) Angiodysplasia of colon with hemorrhage Code(s): K55.21 - ANGIODYSPLASIA OF COLON WITH HEMORRHAGE (6) CVA (cerebral vascular accident) Code(s): I63.9 - CEREBRAL INFARCTION, UNSPECIFIED Qualifiers: CVA mechanism: embolism (7) Diastolic dysfunction Code(s): I51.89 - OTHER ILL-DEFINED HEART DISEASES (8) Sick sinus syndrome Code(s): I49.5 - SICK SINUS SYNDROME (9) Diabetes mellitus Code(s): E11.9 - TYPE 2 DIABETES MELLITUS WITHOUT COMPLICATIONS Qualifiers: Diabetes mellitus type: type 2 Diabetes mellitus regional intermodal truck driver insulin use: without regional intermodal truck driver use Diabetes mellitus complication status: without complication Qualified Code(s): E11.9 - Type 2 diabetes mellitus without complications (10) H/O mitral valve replacement Code(s): Z95.2 - PRESENCE OF PROSTHETIC HEART VALVE (11) HTN (hypertension) Code(s): I10 - ESSENTIAL (PRIMARY) HYPERTENSION Qualifiers: Hypertension type: essential hypertension Qualified Code(s): I10 - Essential (primary) hypertension (12) Hyperlipidemia Code(s): E78.5 - HYPERLIPIDEMIA, UNSPECIFIED Qualifiers: Hyperlipidemia type: pure hypercholesterolemia Qualified Code(s): E78.00 - Pure hypercholesterolemia, unspecified; E78.0 - Pure hypercholesterolemia (13) Pacemaker Code(s): Z95.0 - PRESENCE OF CARDIAC PACEMAKER Assessment/Plan 04/30/2018 Echo: Normal LV size and fxn, severe TR RVSP 50-60 mmHg, mild MR 12/17/2016 reveal: 03/2009 acute systolic CHF and ID, R&LHc 90% distal OM1, 60% D1, preserved LV fxn, elevated LVEDP [place] severe posterior leaflet prolapse with severe MR->MV annuloplasty repair, afib, sinus arrest->PPM, CAD left alone. [facility] Echo: 06/28/16 normal biventricular fxn, COSMO, mod TR, MV ring Nuc stress 09/13/2016 Anterolateral ischemia/infarct SDS 3 EF 82%, abnl ecg changes 1. Chest pain syndrome in a patient with known history of coronary artery disease demand ischemic injury angina pectoris 2. Diastolic left ventricular dysfunction with clinical class 0 [place] [employer] classification left ventricular failure 3. Permanent atrial fibrillation [id number] score of 9, on anticoagulation therapy with Eliquis 4. Sick sinus syndrome post permanent pacemaker implantation 5. Post mitral valve repair 6. HTN 7. DM 8. Hypercholesterolemia 9. 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 COPD 11. CKD 12. Partial seizure suspected PLAN: 1. Continue Eliquis 5 bid 2. Continue Lipitor 80 qhs 3. Continue Lopressor 75 tid 4. Continue Lisinopril 20 qd and Lasix 20 bid titrate dosage as needed with close monitoring of renal function 5. Continue Ranexa 500 bid 6. As outlined in the prior notes patient to followup with Dr. Dread Cowan/ cardiology/[facility], to consider Watchman as outpatient if Eliquis compliance is sub-optimal or recurrent bleeding/history of GI bleed- vascular ectasia 7. No AED per neurology 8. D/c to [facility] Saturday
--- NOTE | 2018-06-29 16:50 | PN ---
Progress Note, Physician History of Present Illness: Pt w/o CP, SOB, palp, abd pain, passing out. Pt's at bedside, states that pt is better today. - Current Medication List Current Medications: Active Medications Apixaban (Eliquis -) 5 mg PO BID [facility] Last Admin: 06/29/18 09:06 Dose: 5 mg Ascorbic Acid (Vitamin C -) 500 mg PO DAILY [facility] Last Admin: 06/29/18 09:06 Dose: 500 mg Atorvastatin Calcium (Lipitor -) 80 mg PO [facility] Last Admin: 06/28/18 21:51 Dose: 80 mg Ferrous Sulfate (Feosol -) 325 mg PO DAILY@0800 [facility] Last Admin: 06/29/18 09:06 Dose: 325 mg Fluoxetine HCl (Prozac -) 20 mg PO DAILY [facility] Last Admin: 06/29/18 09:07 Dose: Not Given Furosemide (Lasix -) 20 mg PO BID@0600,1400 [facility] Last Admin: 06/29/18 13:19 Dose: 20 mg Insulin Aspart (Novolog Vial Sliding Scale -) 1 vial SQ [facility]; Protocol Last Admin: 06/29/18 16:40 Dose: Not Given Insulin Detemir (Levemir Vial) 16 units SQ [facility] Last Admin: 06/28/18 22:32 Dose: 16 unit Lisinopril (Prinivil) 20 mg PO DAILY [facility] Last Admin: 06/29/18 09:06 Dose: 20 mg Metformin HCl (Glucophage -) 1,000 mg PO BIDAC [facility] Last Admin: 06/29/18 06:31 Dose: Not Given Metoprolol Tartrate (Lopressor -) 75 mg PO TID [facility] Last Admin: 06/29/18 13:19 Dose: 75 mg Pantoprazole Sodium (Protonix -) 40 mg PO DAILY [facility] Last Admin: 06/29/18 09:06 Dose: 40 mg Ranolazine (Ranexa -) 500 mg PO BID [facility] Last Admin: 06/29/18 09:06 Dose: 500 mg Sitagliptin Phosphate (Januvia -) 50 mg PO BIDAC [facility] Last Admin: 06/29/18 06:31 Dose: Not Given Tamsulosin HCl (Flomax -) 0.4 mg PO DAILY@0830 [facility] Last Admin: 06/29/18 09:06 Dose: 0.4 mg - Objective Vital Signs: Vital Signs Temperature 98.6 F 06/29/18 15:46 Pulse Rate 74 06/29/18 15:46 Respiratory Rate 18 06/29/18 15:46 Blood Pressure 120/53 L 06/29/18 15:46 O2 Sat by Pulse Oximetry (%) 94 L 06/29/18 10:00 Constitutional: Yes: No Distress, Calm Cardiovascular: Yes: Regular Rate and Rhythm, S1, S2 Respiratory: Yes: Regular, Other (coarse BS at bases). No: Rales Gastrointestinal: Yes: Normal Bowel Sounds, Soft. No: Tenderness Edema: No Neurological: Yes: Alert, Oriented Labs: CBC, BMP 06/26/18 05:30 06/27/18 06:00 INR, PTT INR 1.68 (0.83-1.09) H 06/24/18 05:39 Problem List - Problems (1) TIA (transient ischemic attack) Code(s): G45.9 - TRANSIENT CEREBRAL ISCHEMIC ATTACK, UNSPECIFIED (2) Chest pain Code(s): R07.9 - CHEST PAIN, UNSPECIFIED Qualifiers: Chest pain type: unspecified Qualified Code(s): R07.9 - Chest pain, unspecified (3) Abnormal urine Code(s): R82.90 - UNSPECIFIED ABNORMAL FINDINGS IN URINE (4) CVA (cerebral vascular accident) Code(s): I63.9 - CEREBRAL INFARCTION, UNSPECIFIED (5) CAD (coronary artery disease) Code(s): I25.10 - ATHSCL HEART DISEASE OF [place] CORONARY ARTERY W/O ANG PCTRS Qualifiers: Coronary Disease-Associated Artery/Lesion type: [place] artery [place] vs. transplanted heart: [place] heart Associated angina: without angina Qualified Code(s): I25.10 - Atherosclerotic heart disease of [place] coronary artery without angina pectoris (6) Diabetes mellitus Code(s): E11.9 - TYPE 2 DIABETES MELLITUS WITHOUT COMPLICATIONS Qualifiers: Diabetes mellitus type: type 2 (7) Hypokalemia Code(s): E87.6 - HYPOKALEMIA Assessment/Plan Admitted to monitor bed Serial CE negative Cardio, Neuro consults are appreciated. Pt was cleared for DC by Neuro. Pt at her baseline (per her ). pt to be DC'ed tomorrow. Pts condition was d/w her nurse, pt and pts
[2018-06-29] MEDS: ATORVASTATIN CA 80 MG TABLET (FP) PO SCH (22:19)
[2018-06-29] MEDS: INSULIN (LEVEMIR) 100 UNITS/ML UNITS SQ SCH (22:19)
[2018-06-30] MEDS: METOPROLOL TARTRATE 50 MG TABLET (FP) PO SCH (06:20)
[2018-06-30] MEDS: FUROSEMIDE 20 MG TABLET (FP) PO SCH (06:21)
[2018-06-30] MEDS: sitaGLIPtin PHOSPHATE 50 MG TABLET PO SCH (06:21)
[2018-06-30] MEDS: metFORMIN HCL 500 MG TABLET (FP) PO SCH (06:21)
[2018-06-30] MEDS: INSULIN SLIDING SCALE (NOVOLOG) 1 VIAL SQ SCH (06:22)
[2018-06-30] MEDS ORDERED: INSULIN (LEVEMIR) 100 UNITS/ML UNITS SQ ONE (07:46)
[2018-06-30] MEDS ORDERED: INSULIN SLIDING SCALE (NOVOLOG) 1 VIAL SQ ONE (07:46)
[2018-06-30] MEDS: RANOLAZINE E.R. 500 MG TABLET (FP) PO SCH (09:07)
[2018-06-30] MEDS: APIXABAN 5 MG TABLET PO SCH (09:07)
[2018-06-30] MEDS: LISINOPRIL 20 MG TABLET (FP) PO SCH (09:07)
[2018-06-30] MEDS: ASCORBIC ACID 500 MG TABLET (FP) PO SCH (09:07)
[2018-06-30] MEDS: FLUoxetine HCL 20 MG CAPSULE (FP) PO SCH (09:07)
[2018-06-30] MEDS: FERROUS SO4 325 MG TABLET (FP) PO SCH (09:07)
[2018-06-30] MEDS: PANTOPRAZOLE 40 MG TABLET (FP) PO SCH (09:07)
[2018-06-30] MEDS: TAMSULOSIN HCL 0.4 MG CAP PO SCH (09:07)
--- NOTE | 2018-06-30 09:41 | DS ---
Physical Examination Vital Signs: Vital Signs Temperature 97.9 F 06/30/18 06:11 Pulse Rate 76 06/30/18 06:11 Respiratory Rate 18 06/30/18 06:11 Blood Pressure 148/77 06/30/18 06:11 O2 Sat by Pulse Oximetry (%) 94 L 06/29/18 21:00 Findings/Remarks: Pt w/o SOB, CP, palp, syncope, chocking, abd pain. Pt's at bedside; both wants to restart Rehab/ [facility] program ANTHONY. Constitutional: Yes: No Distress, Calm Cardiovascular: Yes: Regular Rate and Rhythm, S1, S2 Respiratory: Yes: Regular, CTA Bilaterally. No: Rales Gastrointestinal: Yes: Normal Bowel Sounds, Soft. No: Tenderness Neurological: Yes: Alert, Oriented Labs: CBC, BMP 06/26/18 05:30 06/27/18 06:00 Discharge Summary Reason For Visit: WEAKNESS, CHEST PAIN Current Active Problems Abnormal urine (Acute) CAD (coronary artery disease) (Acute) CVA (cerebral vascular accident) (Acute) Chest pain (Acute) Demand ischemia (Acute) Diabetes mellitus (Acute) Hypokalemia (Acute) TIA (transient ischemic attack) (Acute) Weakness (Acute) Procedures: Principal: Head CT scan. CXR Hospital Course: Pt came to ER after an episode of unresponsiveness the night before and [facility] early childhood assistant the day of ER visit. Pt was admitted to Telemetry, was seen by Cardio (Dr. Gaines), Neuro (Dr. Johns). Pt's serial CE were negative, pt' Head CT scan was negative for acute events. Pt was cleared by Cardion and Neuro for DC back home/ Rehab program. Condition: Stable - Instructions Diet, Activity, Other Instructions: resume diet and activities Referrals: Lily Maher MD [Staff Physician] - (within 1 week. Pt needs f/u with Dr Dread Cowan ) Disposition: HOME - Home Medications Comprehensive Discharge Medication List: Ambulatory Orders See Patient's Discharge Instructions
[2018-06-30 10:51] VITALS: BP 154/80; PULSE 78; TEMP 97.7
== END 2018-06-30 12:05 | disposition home or self-care (01) | DRG 69 ==
LOC: JER 04:01 → JERBED 06:39 → OBSVTOIN 11:54 → J4S 23:46
PROVIDERS: ADMIT Internal Medicine; ATTEND Internal Medicine
DX: G45.9 Transient cerebral ischemic attack, unspecified (principal); I69.351 Hemiplegia and hemiparesis following cerebral infarction affecting right dominant side; I24.8 Other forms of acute ischemic heart disease; I48.1 Persistent atrial fibrillation; I13.0 Hypertensive heart and chronic kidney disease with heart failure and stage 1 through stage 4 chronic kidney disease, or unspecified chronic kidney disease; E78.5 Hyperlipidemia, unspecified; J44.9 Chronic obstructive pulmonary disease, unspecified; I48.91 Unspecified atrial fibrillation; E78.00 Pure hypercholesterolemia, unspecified; R07.89 Other chest pain; I34.0 Nonrheumatic mitral (valve) insufficiency; I25.10 Atherosclerotic heart disease of native coronary artery without angina pectoris; K57.90 Diverticulosis of intestine, part unspecified, without perforation or abscess without bleeding; D64.9 Anemia, unspecified; R82.90 Unspecified abnormal findings in urine; I51.89 Other ill-defined heart diseases; E87.6 Hypokalemia; E11.22 Type 2 diabetes mellitus with diabetic chronic kidney disease; N18.9 Chronic kidney disease, unspecified; I69.320 Aphasia following cerebral infarction; Z95.2 Presence of prosthetic heart valve; Z95.0 Presence of cardiac pacemaker; Z95.1 Presence of aortocoronary bypass graft
CPT/HCPCS: 36415; 70450-TC; 71045-TC-FY; 80048; 80053; 81003; 82550; 82962; 83735; 84484; 85025; 85027; 85610; 85730; 87086; 87186; 93005; 93010; 97116-GP; 97162-GP; 99285-25; G0378

== ENCOUNTER 2018-08-09 15:33 | Emergency (ER) | payer OTHER | END 2018-08-09 23:41 | disposition home or self-care (01) | LOC: JER 15:33 ==

== ENCOUNTER 2019-02-09 18:41 | Inpatient (IN) | payer OTHER ==
--- NOTE | 2019-02-09 19:22 | PDOC ---
History of Present Illness - General Chief Complaint: SIRS, Suspected/Possible Stated Complaint: SEPSIS Time Seen by Provider: 02/09/19 19:22 History Source: Spouse Exam Limitations: Unresponsive (non verbal) - History of Present Illness Initial Comments: 02/09/19 20:36 78yF w PMHx CAD, a fib on AC, DM, HTN, COPD, GI bleed, CVA (RUE/LE paralysis, non verbal), presenting from [facility] w hypotension, fevers. Pt is non verbal. Per , pt was seen at [facility] for CVA 2 weeks ago, trached for respiratory failure, sent to [place] without improvement of symptoms. At [place], developed sacral ulcer and von arm swelling, breathing not improved. Sent to ED today for hypotension and fever concern. Baseline able to eye track and follow simple commands like hand squeezing PCP Dr Fischer, only short term stay at [facility] Past History - Past Medical History Allergies/Adverse Reactions: Allergies Allergy/AdvReac Type Severity Reaction Status Date / Time No Known Allergies Allergy Verified 02/09/19 18:58 Home Medications: Ambulatory Orders Apixaban [Eliquis -] 5 mg PO BID tablet 07/26/17 Ascorbic Acid [Vitamin C -] 500 mg PO DAILY 30 Days #60 tablet MDD 2 07/26/17 Atorvastatin Ca [Lipitor] 80 mg PO HS tablet 07/26/17 Ferrous Sulfate [Feosol] 325 mg PO DAILY@0800 ud 07/26/17 Pantoprazole Sodium [Protonix -] 40 mg PO DAILY tablet.ec 07/26/17 Fluoxetine HCl Liquid [Prozac 20mg/5mL Oral Solution -] 20 mg PO DAILY 04/28/18 Furosemide [Lasix -] 20 mg PO BID@0600,1400 04/28/18 L. Acidophilus/Pectin, [place] [Acidophilus-Pectin Capsule] 1 each PO TID Metformin HCl [Glucophage] 1,000 mg PO BID 04/28/18 Metoprolol Tartrate [Lopressor -] 75 mg PO TID 04/28/18 Sitagliptin Phosphate [Januvia] 50 mg PO BID 04/28/18 Tamsulosin HCl [Flomax] 0.4 mg PO DAILY 04/28/18 Insulin (Levemir) [Levemir Vial] 16 units SQ HS units 05/02/18 Lisinopril [Prinivil] 10 mg PO DAILY #30 tablet MDD 1 05/02/18 Ranolazine [Ranexa -] 500 mg PO BID tab 06/30/18 Anemia: Yes Asthma: No Cancer: No Cardiac Disorders: Yes (afib on coumadin, CABG, PPM) CVA: Yes (july 2017 right sided weakness, dysarthria) COPD: Yes (uses nc o2 @ night 1 lpm) CHF: Yes Dementia: No Diabetes: Yes GI Disorders: Yes (GI BLEED) Disorders: No HTN: Yes Hypercholesterolemia: Yes Liver Disease: No Seizures: No Thyroid Disease: No - Surgical History Abdominal Surgery: No Appendectomy: No Cardiac Surgery: Yes (pacemaker, CABG) Cholecystectomy: No Lung Surgery: No Neurologic Surgery: No Orthopedic Surgery: (BONE TUMOR REMOVAL 5YRS OLD) - Immunization History Immunization Up to Date: Yes - Psycho Social/Smoking Cessation Hx Smoking History: Unknown if ever smoked Have you smoked in the past 12 months: No If you are a former smoker, when did you quit?: 2007 Hx Alcohol Use: No Drug/Substance Use Hx: No Substance Use Type: None Hx Substance Use Treatment: No Review of Systems - Review of Systems Able to Perform ROS?: No (non verbal) *Physical Exam - Vital Signs Last Vital Signs Temp Pulse Resp BP Pulse Ox 124 H 18 116/65 97 02/09/19 19:09 02/09/19 19:09 02/09/19 18:46 02/09/19 19:09 - Physical Exam General Appearance: Yes: Appropriately Dressed, Other (trached connected to vent ) HEENT: positive: SHASHANK. negative: EOMI, Normal Voice, Scleral Icterus (R), Scleral Icterus (L), Rhinorrhea Respiratory/Chest: positive: Decreased Breath Sounds. negative: Chest Tender, Respiratory Distress, Crackles, Rales, Rhonchi, Stridor, Wheezing Cardiovascular: positive: Regular Rhythm, S1, S2, Tachycardia. negative: Murmur Gastrointestinal/Abdominal: positive: Normal Bowel Sounds, Flat, Soft. negative : Tender, Organomegaly Musculoskeletal: positive: Other (8cm circumferential midline sacral ulcer covered w sponge and dressing, brown purulent discharge, mild surounding erythema, no bone seen) Extremity: positive: Swelling (+2 pitting edema von arms and hands,+1 BLE), Other (intermittent erythematous blisters von forearms) Integumentary: positive: Dry Neurologic: negative: slip seat coverer II-XII NML intact, Fully Oriented, Responsive ED Treatment Course - LABORATORY CBC & Chemistry Diagram: 02/09/19 20:50 02/09/19 20:50 Medical Decision Making - Medical Decision Making 02/09/19 22:20 CBC CMP lactate VBG trop UA blood/urine cx EKG shows a fib rate controlled, HR 108, QTc 393 WBC 16, Hgb 6.6, trop 0.06, lactate 1.5, UTI CXR shows von effusions L>R Head CT pending vanc, zosyn, 30mg/kg NS, tylenol --- 78yF w PMHx CAD, a fib on AC, DM, HTN, COPD, GI bleed, CVA (RUE/LE paralysis, non verbal), presenting from [facility] w hypotension, fever d/t UTI (+ bacteria and yeast), CHF exacerbation (elevated BNP, worsening BUE edema, lung infiltrates, cardiac pmhx), and anemia Hgb 6.6 - consented w /HCP, given 2u pRBC. Elevated trop 0.06 d/t demand. Low concern for ACS (no ST changes on EKG). Given vanc, zosyn, 30mg/kg NS, tylenol Admitted to tele on ICU floor per Dr Fischer for anemia requiring transfusion, UTI, CHF exacerbation, chronic trach on ventilator Pending head CT, fobt Discharge - Discharge Information Problems reviewed: Yes Clinical Impression/Diagnosis: Sepsis Qualifiers: Sepsis type: sepsis due to unspecified organism Sepsis acute organ dysfunction status: without acute organ dysfunction Qualified Code(s): A41.9 - Sepsis, unspecified organism UTI (urinary tract infection) Qualifiers: Urinary tract infection type: catheter-associated UTI Indwelling urinary catheter type: unspecified Encounter type: initial encounter Qualified Code(s): T83.511A - Infection and inflammatory reaction due to indwelling urethral catheter, initial encounter; N39.0 - Urinary tract infection, site not specified CHF exacerbation Qualifiers: Heart failure type: unspecified Qualified Code(s): I50.9 - Heart failure, unspecified Anemia Qualifiers: Anemia type: unspecified type Qualified Code(s): D64.9 - Anemia, unspecified Condition: Stable - Follow up/Referral Referrals: Jagjit Tavares MD [Primary Care Provider] - - Patient Discharge Instructions - Post Discharge Activity
[2019-02-09] MEDS ORDERED: SODIUM CHLORIDE 2,449 ML IV ONE (19:44)
[2019-02-09] MEDS ORDERED: VANCOMYCIN 1 GM in D5W (PRE-DOCKED) 1,000 MG/250 ML IVPB ONE (21:20)
[2019-02-09] MEDS ORDERED: ACETAMINOPHEN 1000 MG/100 ML VIAL (NON FORMULARY) IVPB ONE (21:21)
[2019-02-09] MEDS ORDERED: PIPERACILLIN/TAZOB 4.5 GM 4.5 GM in DEXTROSE 5%-WATER 100 ML IVPB ONE (21:21)
[2019-02-09 21:37] LABS: VENOUS PC02 39.3 mmHg (38-52); VENOUS PH 7.52 (7.31-7.41); VENOUS PO2 53.9 mmHg (28-48)
[2019-02-09] MEDS ORDERED: ACETAMINOPHEN INJECTION 100 ML IVPB ONE (21:37)
[2019-02-09 21:38] LABS: BASO % 0.4 % (0-2.0); EOS % 1.5 % (0-4.5); HEMATOCRIT 22.1 % (32.4-45.2); LYMPH % 13.7 % (8-40); MCH 24.7 pg (25.7-33.7); MCHC 29.6 g/dl (32.0-36.0); MEAN CELL VOLUME 83.2 fl (80-96); NEUT % 79.4 % (42.8-82.8); PLATELET COUNT 351 K/MM3 (134-434); RBC 2.66 M/mm3 (3.60-5.2); RDW 20.1 % (11.6-15.6); WHITE BLOOD COUNT 16.8 K/mm3 (4.0-10.0)
[2019-02-09] MEDS ORDERED: VANCOMYCIN 1 GRAM (PRE-DOCKED) 1,000 MG/250 ML BAG IVPB ONE (21:38)
[2019-02-09] MEDS ORDERED: PIPERACILLIN/TAZOB 4.5 GM 4.5 GM/100 ML BAG IVPB ONE (21:38)
[2019-02-09 21:51] LABS: HEMOGLOBIN 6.6 GM/dL (10.7-15.3)
[2019-02-09 21:58] LABS: EPI CELLS 17.7 /HPF (0-5/HPF); HYALINE CASTS 12 /lpf (0-8); URINE APPEARANCE TURBID; URINE BACTERIA 1462.1 /hpf (NEGATIVE); URINE BILIRUBIN NEGATIVE (NEGATIVE); URINE COLOR YELLOW; URINE GLUCOSE (UA) NEGATIVE (NEGATIVE); URINE KETONE NEGATIVE (NEGATIVE); URINE LEUK ESTERASE 3+ (NEGATIVE); URINE NITRITE NEGATIVE (NEGATIVE); URINE PROTEIN 1+ (NEGATIVE); URINE UROBILINOGEN 0.2 mg/dL (0.2-1.0); URINE WBC 1262 /hpf (0-5); YEAST REVIEW (NEGATIVE)
[2019-02-09 22:05] LABS: INR 1.28 (0.83-1.09); PROTHROMBIN TIME (PATIENT) 15.1 SEC (9.7-13.0)
[2019-02-09 22:06] LABS: ALBUMIN 1.2 g/dl (3.4-5.0); BILIRUBIN,TOTAL 0.2 mg/dL (0.2-1); BLOOD UREA NITROGEN 52.3 mg/dL (7-18); CALCIUM 8.2 mg/dL (8.5-10.1); CREATININE 0.8 mg/dL (0.55-1.3); POTASSIUM 3.4 mmol/L (3.5-5.1); TOT PROT 5.3 g/dl (6.4-8.2)
[2019-02-09 22:08] LABS: ACTIVATED PTT 32.9 SECONDS (25.2-36.5)
--- NOTE | 2019-02-09 22:31 | PDOC ---
Documentation entered by Kala Ratliff SCRIBE, acting as scribe for Alicja Saldivar MD. Alicja Saldivar MD: This documentation has been prepared by the Gaudencio faith Nirvannie, SCRIBE, under my direction and personally reviewed by me in its entirety. I confirm that the documentation accurately reflects all work, treatment, procedures, and medical decision making performed by me. Attending Attestation - Resident Resident Name: Alcides Aguilar - ED Attending Attestation I have performed the following: I have examined & evaluated the patient, The case was reviewed & discussed with the resident, I agree w/resident's findings & plan - HPI HPI: 02/09/19 21:21 78-year-old female brought in by ambulance from [facility] for sepsis Past medical history severe strokes and she is a chronic trach patient, nonverbal baseline - Physicial Exam PE: 02/09/19 22:11 Nonverbal 78-year-old female brought in by ambulance for fever Head is normocephalic atraumatic Neck intact trach Lungs have scattered rhonchi CVS regular regular rhythm Abdomen nontender Extremities pitting edema Neuro patient's eyes are open and she tracks with her eyes , nonverbal - Medical Decision Making 02/09/19 22:13 Labs show a significant anemia with hemoglobin 6.6 and a leukocytosis of 16,000 for WBC 02/09/19 22:14 trop o.06 UA +uti 02/09/19 22:31 cxr chf,cannot r/o infiltrates 02/10/19 01:36 admitted for sepsis
[2019-02-09 23:38] LABS: N-TERMINAL BNP 3849.5 pg/ml (5-450)
[2019-02-09 23:44] LABS: URINE RBC 75 /hpf (0-4)
--- NOTE | 2019-02-10 02:15 | HP ---
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) Cardiovascular: Yes: AFIB (on AC), Aortic Stenosis (s/p ring repair at [facility]), CAD , HTN, Mitral Insufficiency (MVR 2009 [facility]), Other (PPM) Pulmonary: Yes: COPD Gastrointestinal: Yes: Diverticulosis, GI Bleed (recent bleed felt to be 2ndary to vascular ectasias), Other (07/19 four adenomatous tx colon polyps resected, cecal angiodysplasias seen) Heme/Onc: Yes: Anemia Rheumatology: Yes: Other (osteoarthritis) Endocrine: Yes: Diabetes Mellitus - Past Surgical History Past Surgical History: Yes: Colonoscopy, Upper Endoscopy - Smoking History Smoking history: Unknown if ever smoked Have you smoked in the past 12 months: No If you are a former smoker, when did you quit?: 2007 - Alcohol/Substance Use Hx Alcohol Use: No History of Substance Use: reports: None - Social History ADL: Independent 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 History of Recent Travel: No Home Medications - Allergies Allergies/Adverse Reactions: Allergies Allergy/AdvReac Type Severity Reaction Status Date / Time No Known Allergies Allergy Verified 02/09/19 18:58 - Home Medications Home Medications: Ambulatory Orders Apixaban [Eliquis -] 5 mg PO BID tablet 07/26/17 Ascorbic Acid [Vitamin C -] 500 mg PO DAILY 30 Days #60 tablet MDD 2 07/26/17 Atorvastatin Ca [Lipitor] 80 mg PO HS tablet 07/26/17 Ferrous Sulfate [Feosol] 325 mg PO DAILY@0800 ud 07/26/17 Pantoprazole Sodium [Protonix -] 40 mg PO DAILY tablet.ec 07/26/17 Fluoxetine HCl Liquid [Prozac 20mg/5mL Oral Solution -] 20 mg PO DAILY 04/28/18 Furosemide [Lasix -] 20 mg PO BID@0600,1400 04/28/18 L. Acidophilus/Pectin, [place] [Acidophilus-Pectin Capsule] 1 each PO TID Metformin HCl [Glucophage] 1,000 mg PO BID 04/28/18 Metoprolol Tartrate [Lopressor -] 75 mg PO TID 04/28/18 Sitagliptin Phosphate [Januvia] 50 mg PO BID 04/28/18 Tamsulosin HCl [Flomax] 0.4 mg PO DAILY 04/28/18 Insulin (Levemir) [Levemir Vial] 16 units SQ HS units 05/02/18 Lisinopril [Prinivil] 10 mg PO DAILY #30 tablet MDD 1 05/02/18 Ranolazine [Ranexa -] 500 mg PO BID tab 06/30/18 Physical Examination Vital Signs: Vital Signs Temperature 100.5 F H 02/09/19 21:32 Pulse Rate 113 H 02/10/19 02:00 Respiratory Rate 18 02/09/19 23:05 Blood Pressure 132/74 02/10/19 02:00 O2 Sat by Pulse Oximetry (%) 100 02/10/19 02:00 Labs: CBC, BMP 02/09/19 20:50 02/09/19 20:50
--- NOTE | 2019-02-10 03:24 | CONSULT ---
Consultation: REQUESTING PROVIDER: CONSULT REQUEST: We have been asked to medically evaluate this patient for CHF exacerbation in a trach/vent patient with urosepsis. HISTORY OF PRESENT ILLNESS: HPI: 78yo F w PMHx CAD, a fib on AC, DM, HTN, COPD, GI bleed, CVA (RUE/LE paralysis, non verbal), presenting from [facility] w/ hypotension, fevers. Pt is non verbal at baseline but reportedly eye tracks and follows simple commands ( hand squeeze). Per , pt was seen at [facility] for CVA 2 weeks ago, trached for respiratory failure. Sent to [facility] without improvement of symptoms. At [place], developed sacral ulcer and von arm swelling, breathing not improved. Sent to ED today for hypotension and fever. Patient , tearful and poor historian, states that patient was recently discontinued off AC and has developed bilateral upper extremity edema - reportedly new since ~2 weeks ago per , not noted in prior notes. ED Course: Patient found to meet sepsis criteria, given empiric antibiotics and IVF. BNP 4x previous high. Hgb 6.6, patient transfused [address] with indeterminate age infarct. REVIEW OF SYSTEMS: Limited 2/2 mental status PHYSICAL EXAMINATION Vital Signs - 24 hr 02/09/19 02/09/19 02/09/19 18:46 19:09 19:30 Temperature Pulse Rate 126 H 124 H Pulse Rate [ 112 H Left] Respiratory 18 18 14 Rate Blood Pressure 116/65 Blood Pressure 126/59 L [Left Arm] O2 Sat by Pulse 97 100 Oximetry (%) 02/09/19 02/09/19 02/09/19 20:00 21:00 21:32 Temperature 100.5 F H Pulse Rate 112 H Pulse Rate [ 110 H Left] Respiratory 14 Rate Blood Pressure 102/49 L Blood Pressure 111/87 102/52 L [Left Arm] O2 Sat by Pulse 96 100 100 Oximetry (%) 02/09/19 02/09/19 02/09/19 22:30 23:05 23:30 Temperature Pulse Rate 72 Pulse Rate [ 109 H Left] Respiratory 18 Rate Blood Pressure Blood Pressure 103/47 L 108/57 L [Left Arm] O2 Sat by Pulse 100 100 100 Oximetry (%) 02/10/19 02/10/19 02/10/19 00:30 01:59 02:00 Temperature Pulse Rate Pulse Rate [ 110 H 113 H Left] Respiratory Rate Blood Pressure Blood Pressure 123/87 119/64 132/74 [Left Arm] O2 Sat by Pulse 100 100 100 Oximetry (%) 02/10/19 02:29 Temperature Pulse Rate Pulse Rate [ Left] Respiratory 18 Rate Blood Pressure Blood Pressure [Left Arm] O2 Sat by Pulse Oximetry (%) GENERAL: Awake, ventilated via trach, in no acute distress. HEAD: Normal with no signs of trauma. EYES: Pupils equal, round and reactive to light, extraocular movements intact, sclera anicteric, conjunctiva clear. EARS, NOSE, THROAT: Ears grossly normal, nares patent, patient refuses to open her mouth. NECK: JVD noted, tracheostomy. LUNGS: Ventilator sounds equal. No wheezes or crackles appreciated. HEART: Regular rate and rhythm, normal S1/S2 without murmur appreciated. ABDOMEN: Soft, non-tender, non-distended, normoactive bowel sounds x4, no guarding, no rebound, no masses. MUSCULOSKELETAL: Unable to assess. BACK: Reported stage 4 sacral ulcer. UPPER EXTREMITIES: Warm, 2+ pitting edema. No cyanosis. No clubbing. LOWER EXTREMITIES: Warm, well-perfused. Trace pitting edema, R > L. NEUROLOGICAL: Does not follow finger, does not follow command to squeeze finger. PSYCHIATRIC: Unable to assess. SKIN: Warm, dry. Laboratory Results - last 24 hr 02/09/19 02/09/19 02/09/19 20:42 20:50 20:50 WBC RBC Hgb Hct MCV MCH MCHC RDW Plt Count MPV Absolute Neuts (auto) Neutrophils % Lymphocytes % Monocytes % Eosinophils % Basophils % Nucleated RBC % PT with INR 15.10 H INR 1.28 H PTT (Actin FS) 32.9 VBG pH POC VBG pCO2 POC VBG pO2 VBG HCO3 VBG O2 Sat (Dylan) VBG Base Excess Sodium 155 H Potassium 3.4 L Chloride 115 H Carbon Dioxide 34 H Anion Gap 7 L BUN 52.3 H Creatinine 0.8 Est GFR (CKD-EPI)AfAm 83.00 Est GFR (CKD-EPI)NonAf 71.61 Random Glucose 244 H Lactic Acid 1.5 Calcium 8.2 L Total Bilirubin 0.2 AST 21 ALT 26 Alkaline Phosphatase 201 H Creatine Kinase Troponin I B-Natriuretic Peptide 3849.5 H Total Protein 5.3 L Albumin 1.2 L Urine Color Urine Appearance Urine pH Ur Specific [place] Urine Protein Urine Glucose (UA) Urine Ketones Urine Blood Urine Nitrite Urine Bilirubin Urine Urobilinogen Ur Leukocyte Esterase Urine WBC (Auto) Urine RBC (Auto) Urine Casts (Auto) U Pathogenic Cast Auto U Epithel Cells (Auto) Urine Bacteria (Auto) Urine Yeast (Auto) Blood Type Antibody Screen Crossmatch 02/09/19 02/09/19 02/09/19 20:50 20:50 20:50 WBC RBC Hgb Hct MCV MCH MCHC RDW Plt Count MPV Absolute Neuts (auto) Neutrophils % Lymphocytes % Monocytes % Eosinophils % Basophils % Nucleated RBC % PT with INR INR PTT (Actin FS) VBG pH 7.52 H POC VBG pCO2 39.3 POC VBG pO2 53.9 H VBG HCO3 32.0 H VBG O2 Sat (Dylan) 87.9 H VBG Base Excess 8.7 H Sodium Potassium Chloride Carbon Dioxide Anion Gap BUN Creatinine Est GFR (CKD-EPI)AfAm Est GFR (CKD-EPI)NonAf Random Glucose Lactic Acid Calcium Total Bilirubin AST ALT Alkaline Phosphatase Creatine Kinase 38 Troponin I 0.06 H B-Natriuretic Peptide Total Protein Albumin Urine Color Yellow Urine Appearance Turbid Urine pH 7.0 D Ur Specific [place] 1.016 Urine Protein 1+ H Urine Glucose (UA) Negative Urine Ketones Negative Urine Blood 1+ H Urine Nitrite Negative Urine Bilirubin Negative Urine Urobilinogen 0.2 Ur Leukocyte Esterase 3+ H Urine WBC (Auto) 1262 Urine RBC (Auto) 75 Urine Casts (Auto) 12 U Pathogenic Cast Auto None seen U Epithel Cells (Auto) 17.7 Urine Bacteria (Auto) 1462.1 Urine Yeast (Auto) Review A* Blood Type Antibody Screen Crossmatch 02/09/19 02/09/19 20:50 22:19 WBC 16.8 H RBC 2.66 L Hgb 6.6 L* Hct 22.1 L D MCV 83.2 MCH 24.7 L MCHC 29.6 L RDW 20.1 H Plt Count 351 D MPV 10.0 Absolute Neuts (auto) 13.4 H Neutrophils % 79.4 Lymphocytes % 13.7 D Monocytes % 5.0 Eosinophils % 1.5 Basophils % 0.4 Nucleated RBC % 0 PT with INR INR PTT (Actin FS) VBG pH POC VBG pCO2 POC VBG pO2 VBG HCO3 VBG O2 Sat (Dylan) VBG Base Excess Sodium Potassium Chloride Carbon Dioxide Anion Gap BUN Creatinine Est GFR (CKD-EPI)AfAm Est GFR (CKD-EPI)NonAf Random Glucose Lactic Acid Calcium Total Bilirubin AST ALT Alkaline Phosphatase Creatine Kinase Troponin I B-Natriuretic Peptide Total Protein Albumin Urine Color Urine Appearance Urine pH Ur Specific [place] Urine Protein Urine Glucose (UA) Urine Ketones Urine Blood Urine Nitrite Urine Bilirubin Urine Urobilinogen Ur Leukocyte Esterase Urine WBC (Auto) Urine RBC (Auto) Urine Casts (Auto) U Pathogenic Cast Auto U Epithel Cells (Auto) Urine Bacteria (Auto) Urine Yeast (Auto) Blood Type O POSITIVE Antibody Screen Negative Crossmatch See Detail ASSESSMENT/PLAN: 78yo F w PMHx CAD, a fib on AC, DM, HTN, COPD, GI bleed, CVA (RUE/LE paralysis, non verbal), presenting from [facility] w/ hypotension, fevers. Found to be septic , with UTI on UA - presumed urosepsis, superimposed CHF exacerbation with elevated BNP and peripheral edema. #Afib #DM #HTN #COPD #CHF #GIB #CVA #Sepsis (Urosepsis) #UTI #Hypernatremia #Hypokalemia - Monitor vitals - 40 mg IV Lasix - Strict I&O - Maintain [place] - Monitor and replete lytes - Continue Zosyn - Consult ID - Hold HTN meds - Hold metformin - Hold PO lasix - Resume other medications as tolerated - BGM, ISS - Suggest wound care consult for stag 4 sacral ulcer - ABG - Trend H&H, transfuse >8 - CT with indeterminate age infarct, patient recently off AC - Not TPA candidate given Hx GIB and prior recent CVAs - Called IoC to compare with prior CT, without response Dispo: - Patient does not require ICU level care. - Would benefit from telemetry for urosepsis with CHF exacerbation in trached/ vented patient. - We will continue to follow the patient. - Thank you for this consultative opportunity. Visit type - Emergency Visit Emergency Visit: Yes Care time: The patient presented to the Emergency Department on the above date and was hospitalized for further evaluation of their emergent condition. - New Patient This patient is new to me today: Yes Date on this admission: 02/10/19 - Critical Care Critical Care patient: Yes Total Critical Care Time (in minutes): 36 Critical Care Statement: The care of this patient involved high complexity decision making to prevent further life threatening deterioration of the patient 's condition and/or to evaluate & treat vital organ system(s) failure or risk of failure. ATTENDING PHYSICIAN STATEMENT I saw and evaluated the patient. I reviewed the resident's note and discussed the case with the resident. I agree with the resident's findings and plan as documented. SUBJECTIVE: OBJECTIVE: ASSESSMENT AND PLAN:
[2019-02-10] MEDS ORDERED: PIPERACILLIN/TAZOB 3.375 GM 3.375 GM in DEXTROSE 5%-WATER - 50 ML IVPB ONE (08:00)
[2019-02-10] MEDS ORDERED: METOPROLOL TARTRATE 5 MG/5 ML VIAL IVPUSH PRN (08:08)
[2019-02-10] MEDS ORDERED: SODIUM CHLORIDE 0.45% 1,000 ML IV SCH (08:30)
[2019-02-10] MEDS ORDERED: PIPERACILLIN/TAZOBACTAM 3.375 GM VIAL IVPB ONE ×2 (08:41→17:23)
[2019-02-10] MEDS ORDERED: DEXTROSE 5%-WATER - 50 ML IVPB ONE ×2 (08:42→17:23)
--- NOTE | 2019-02-10 09:03 | PN ---
Progress Note, Physician - Current Medication List Current Medications: Active Medications Sodium Chloride (1/2 Normal Saline) 1,000 mls @ 42 mls/hr IV ASDIR BAHMAN Last Admin: 02/10/19 08:47 Dose: 42 mls/hr Insulin Aspart (Novolog Vial Sliding Scale -) 1 vial SQ ACHS BAHMAN; Protocol Metoprolol Tartrate (Lopressor Injection -) 5 mg IVPUSH Q4H PRN PRN Reason: HYPERTENSION - Objective Vital Signs: Vital Signs Temperature 98.6 F 02/10/19 06:00 Pulse Rate 102 H 02/10/19 08:36 Respiratory Rate 18 02/10/19 08:37 Blood Pressure 121/65 02/10/19 06:00 O2 Sat by Pulse Oximetry (%) 99 02/10/19 08:36 Cardiovascular: Yes: S1, S2 Respiratory: Yes: Mechanically Ventilated, Rales Gastrointestinal: Yes: Normal Bowel Sounds, Soft Edema: No Labs: CBC, BMP 02/09/19 20:50 02/09/19 20:50 INR, PTT INR 1.28 (0.83-1.09) H 02/09/19 20:50 Problem List - Problems (1) Anemia Assessment/Plan: Transfuse Prbc monitor counts GI consult Code(s): D64.9 - ANEMIA, UNSPECIFIED Qualifiers: Anemia type: unspecified type Qualified Code(s): D64.9 - Anemia, unspecified (2) CHF exacerbation Assessment/Plan: cxr with effusion lasix 40 ivp Code(s): I50.9 - HEART FAILURE, UNSPECIFIED Qualifiers: Heart failure type: unspecified Qualified Code(s): I50.9 - Heart failure, unspecified (3) Sepsis Assessment/Plan: iv abx cultures id consult Code(s): A41.9 - SEPSIS, UNSPECIFIED ORGANISM Qualifiers: Sepsis type: sepsis due to unspecified organism Sepsis acute organ dysfunction status: without acute organ dysfunction Qualified Code(s): A41.9 - Sepsis, unspecified organism (4) UTI (urinary tract infection) Assessment/Plan: abx cultures Code(s): N39.0 - URINARY TRACT INFECTION, SITE NOT SPECIFIED Qualifiers: Urinary tract infection type: catheter-associated UTI Indwelling urinary catheter type: unspecified Encounter type: initial encounter Qualified Code( s): T83.511A - Infection and inflammatory reaction due to indwelling urethral catheter, initial encounter; N39.0 - Urinary tract infection, site not specified (5) A-fib Assessment/Plan: no ac due to anemia monitor rate Code(s): I48.91 - UNSPECIFIED ATRIAL FIBRILLATION Qualifiers: Atrial fibrillation type: persistent (6) CVA (cerebral vascular accident) Assessment/Plan: h/o cva--ct noted r/o new event neuro consult Code(s): I63.9 - CEREBRAL INFARCTION, UNSPECIFIED
--- NOTE | 2019-02-10 09:06 | EKG ---
Test Reason : Blood Pressure : / mmHG Vent. Rate : 108 BPM Atrial Rate : 340 BPM P-R Int : 000 ms QRS Dur : 080 ms QT Int : 294 ms P-R-T Axes : 000 045 132 degrees QTc Int : 393 ms ATRIAL FIBRILLATION WITH RAPID VENTRICULAR RESPONSE LOW VOLTAGE QRS CANNOT RULE OUT ANTERIOR INFARCT , AGE UNDETERMINED ABNORMAL ECG WHEN COMPARED WITH ECG OF 09-AUG-2018 17:40, NONSPECIFIC T WAVE ABNORMALITY NOW EVIDENT IN INFERIOR LEADS NONSPECIFIC T WAVE ABNORMALITY NOW EVIDENT IN ANTERIOR LEADS Confirmed by David Teixeira MD ([id number]) on 02/10/2019 9:06:36 AM Referred By: Confirmed By:David Teixeira MD
--- NOTE | 2019-02-10 09:20 | PN ---
Physical Exam: SUBJECTIVE: Patient seen and examined. Patient has a trachesostomy, unable to talk but seems aware and alert, tracks movement in room. Spoke with daughter, who states she is HCP, over the phone. Patient was admitted at [facility] from the beginning of November until about 2 weeks ago when she was discharged. She has had a chronic sacral ulcer which was being treated while at [facility]. She has had 2 CVA, one in the past and one recently in November prior to admission at [facility]. Patient was being seen at [facility] by a cloth trimmer hand who started her on abx over the last weekend for PNA. OBJECTIVE: Vital Signs Period Temp Pulse Resp BP Sys/[place] Pulse Ox Last 24 Hr 98.6 F-100.5 F 72-126 14-18 102-132/47-87 96-100 GENERAL: The patient is awake, alert, tracks movement. HEAD: NC/AT EYES: EOMI ENT: dry mucous membranes NECK: tracheostomy in place LUNGS: diminished breath sounds bilaterally, no wheezes, no crackles, no accessory muscle use. HEART: RRR, no murmur heard ABDOMEN: Soft, nontender, nondistended, normoactive bowel sounds, no guarding EXTREMITIES: 2+ pulses, warm. +edema of all extremities NEUROLOGICAL: alert, tracks movement in room PSYCH: unable to assess SKIN: Warm, dry. Stage 4 sacral ulcer Laboratory Results - last 24 hr 02/09/19 02/09/19 02/09/19 20:42 20:50 20:50 WBC RBC Hgb Hct MCV MCH MCHC RDW Plt Count MPV Absolute Neuts (auto) Neutrophils % Lymphocytes % Monocytes % Eosinophils % Basophils % Nucleated RBC % PT with INR 15.10 H INR 1.28 H PTT (Actin FS) 32.9 VBG pH POC VBG pCO2 POC VBG pO2 VBG HCO3 VBG O2 Sat (Dylan) VBG Base Excess Sodium 155 H Potassium 3.4 L Chloride 115 H Carbon Dioxide 34 H Anion Gap 7 L BUN 52.3 H Creatinine 0.8 Est GFR (CKD-EPI)AfAm 83.00 Est GFR (CKD-EPI)NonAf 71.61 Random Glucose 244 H Lactic Acid 1.5 Calcium 8.2 L Total Bilirubin 0.2 AST 21 ALT 26 Alkaline Phosphatase 201 H Creatine Kinase Troponin I B-Natriuretic Peptide 3849.5 H Total Protein 5.3 L Albumin 1.2 L Urine Color Urine Appearance Urine pH Ur Specific [place] Urine Protein Urine Glucose (UA) Urine Ketones Urine Blood Urine Nitrite Urine Bilirubin Urine Urobilinogen Ur Leukocyte Esterase Urine WBC (Auto) Urine RBC (Auto) Urine Casts (Auto) U Pathogenic Cast Auto U Epithel Cells (Auto) Urine Bacteria (Auto) Urine Yeast (Auto) Stool Occult Blood Blood Type Antibody Screen Crossmatch 02/09/19 02/09/19 02/09/19 20:50 20:50 20:50 WBC RBC Hgb Hct MCV MCH MCHC RDW Plt Count MPV Absolute Neuts (auto) Neutrophils % Lymphocytes % Monocytes % Eosinophils % Basophils % Nucleated RBC % PT with INR INR PTT (Actin FS) VBG pH 7.52 H POC VBG pCO2 39.3 POC VBG pO2 53.9 H VBG HCO3 32.0 H VBG O2 Sat (Dylan) 87.9 H VBG Base Excess 8.7 H Sodium Potassium Chloride Carbon Dioxide Anion Gap BUN Creatinine Est GFR (CKD-EPI)AfAm Est GFR (CKD-EPI)NonAf Random Glucose Lactic Acid Calcium Total Bilirubin AST ALT Alkaline Phosphatase Creatine Kinase 38 Troponin I 0.06 H B-Natriuretic Peptide Total Protein Albumin Urine Color Yellow Urine Appearance Turbid Urine pH 7.0 D Ur Specific [place] 1.016 Urine Protein 1+ H Urine Glucose (UA) Negative Urine Ketones Negative Urine Blood 1+ H Urine Nitrite Negative Urine Bilirubin Negative Urine Urobilinogen 0.2 Ur Leukocyte Esterase 3+ H Urine WBC (Auto) 1262 Urine RBC (Auto) 75 Urine Casts (Auto) 12 U Pathogenic Cast Auto None seen U Epithel Cells (Auto) 17.7 Urine Bacteria (Auto) 1462.1 Urine Yeast (Auto) Review A* Stool Occult Blood Blood Type Antibody Screen Crossmatch 02/09/19 02/09/19 02/10/19 20:50 22:19 05:30 WBC 16.8 H RBC 2.66 L Hgb 6.6 L* Hct 22.1 L D MCV 83.2 MCH 24.7 L MCHC 29.6 L RDW 20.1 H Plt Count 351 D MPV 10.0 Absolute Neuts (auto) 13.4 H Neutrophils % 79.4 Lymphocytes % 13.7 D Monocytes % 5.0 Eosinophils % 1.5 Basophils % 0.4 Nucleated RBC % 0 PT with INR INR PTT (Actin FS) VBG pH POC VBG pCO2 POC VBG pO2 VBG HCO3 VBG O2 Sat (Dylan) VBG Base Excess Sodium Potassium Chloride Carbon Dioxide Anion Gap BUN Creatinine Est GFR (CKD-EPI)AfAm Est GFR (CKD-EPI)NonAf Random Glucose Lactic Acid Calcium Total Bilirubin AST ALT Alkaline Phosphatase Creatine Kinase Troponin I B-Natriuretic Peptide Total Protein Albumin Urine Color Urine Appearance Urine pH Ur Specific [place] Urine Protein Urine Glucose (UA) Urine Ketones Urine Blood Urine Nitrite Urine Bilirubin Urine Urobilinogen Ur Leukocyte Esterase Urine WBC (Auto) Urine RBC (Auto) Urine Casts (Auto) U Pathogenic Cast Auto U Epithel Cells (Auto) Urine Bacteria (Auto) Urine Yeast (Auto) Stool Occult Blood Positive Blood Type O POSITIVE Antibody Screen Negative Crossmatch See Detail Active Medications Generic Name Dose Route Start Last Admin Trade Name Freq PRN Reason Stop Dose Admin Sodium Chloride 1,000 mls @ 42 mls/hr 02/10/19 08:30 02/10/19 08:47 1/2 Normal Saline IV 42 mls/hr ASDIR BAHMAN Administration Insulin Aspart 1 vial 02/10/19 11:00 Novolog Vial Sliding Scale - SQ ACHS BAHMAN Protocol Metoprolol Tartrate 5 mg 02/10/19 08:08 Lopressor Injection - IVPUSH Q4H PRN HYPERTENSION ASSESSMENT/PLAN: 78 y/o/f w PMHx CAD, a fib on AC, DM, HTN, COPD, GI bleed, CVA (RUE/LE paralysis , non verbal), presenting from [facility] w/ hypotension, fevers. Found to be septic, with UTI on UA - presumed urosepsis, superimposed CHF exacerbation with elevated BNP and peripheral edema. #Neuro - alert, awake, tracks movement in room - Hx of 2 strokes - Head CT without acute pathology, chronic infarcts of unknown age identified #Cardiovascular - hx of HTN - Lopressor 5mg IV Q4hr PRN for hypertension - Lasix 40mg IV once ordered #Pulm - Hx of COPD - maintain SpO2 >90% - patient with tracheostomy, adjust vent settings as appropriate #GI - Stool occult blood positive - initial hgb 6.6, now 8.7 s/p 1 unit PRBC transfusion - monitor H&H, transfuse as needed - GI consulted #Renal - BUN/Cr at 42.9/0.7. Renal function improving compared to initial labs - maintain craven #Endo - Hx DM - ISS - BGMs #ID - WBC 19.0, febrile on admission, now afebrile. monitor - Sepsis 2/2 UTI vs. PNA vs. Sacral would source - Cultures negative to date - Follow up sacral wound culture - Continue Zosyn - ID on board - Wound care consulted #Prophylaxis - holding chemical AC for now due to possible GI bleed #FEN - hold IVF due to volume overloaded status - Monitor and replete lytes as needed - Hypo K+, repleted #Disposition - Stable for transfer to [facility] floor Visit type - Emergency Visit Emergency Visit: Yes ED Registration Date: 02/09/19 Care time: The patient presented to the Emergency Department on the above date and was hospitalized for further evaluation of their emergent condition. - New Patient This patient is new to me today: Yes Date on this admission: 02/10/19 - Critical Care Critical Care patient: Yes Total Critical Care Time (in minutes): 36 Critical Care Statement: The care of this patient involved high complexity decision making to prevent further life threatening deterioration of the patient 's condition and/or to evaluate & treat vital organ system(s) failure or risk of failure. ATTENDING PHYSICIAN STATEMENT I saw and evaluated the patient. I reviewed the resident's note and discussed the case with the resident. I agree with the resident's findings and plan as documented. SUBJECTIVE: OBJECTIVE: ASSESSMENT AND PLAN:
[2019-02-10] MEDS ORDERED: MUPIROCIN 2% TOPICAL OINTMENT FOR DECOLONIZATION NS SCH (10:00)
[2019-02-10] MEDS ORDERED: FUROSEMIDE 40 MG/4 ML INJECTABLE VIAL IVPUSH ONE (10:14)
[2019-02-10 10:35] LABS: BASO % 0.3 % (0-2.0); EOS % 2.4 % (0-4.5); HEMATOCRIT 28.4 % (32.4-45.2); HEMOGLOBIN 8.7 GM/dL (10.7-15.3); LYMPH % 9.8 % (8-40); MCH 25.8 pg (25.7-33.7); MCHC 30.6 g/dl (32.0-36.0); MEAN CELL VOLUME 84.2 fl (80-96); MEAN PLT VOLUME 9.6 fl (7.5-11.1); MONO % 4.2 % (3.8-10.2); NEUT % 83.3 % (42.8-82.8); PLATELET COUNT 350 K/MM3 (134-434); RBC 3.37 M/mm3 (3.60-5.2)
--- NOTE | 2019-02-10 10:53 | PN ---
Teaching Attending Note Name of Resident: Valeriy Downey ATTENDING PHYSICIAN STATEMENT I saw and evaluated the patient. I reviewed the resident's note and discussed the case with the resident. I agree with the resident's findings and plan as documented. SUBJECTIVE: Pt seen and examined in the ICU. Vented, awake. Fever curve trending down. OBJECTIVE: Vital Signs Period Temp Pulse Resp BP Sys/[place] Pulse Ox Last 24 Hr 98.1 F-100.5 F 72-126 14-18 102-132/24-87 96-100 Intake & Output 02/07/19 02/08/19 02/09/19 02/10/19 23:59 23:59 23:59 23:59 Output Total 200 Balance -200 Weight 81.647 kg 67.132 kg Gen: vented, awake Heart: irregular Lung: decreased breath sounds at the bases Abd: soft, nontender Ext: + edema CBC, BMP 02/10/19 10:10 Active Medications Insulin Aspart (Novolog Vial Sliding Scale -) 1 vial SQ ACHS BAHMAN; Protocol Metoprolol Tartrate (Lopressor Injection -) 5 mg IVPUSH Q4H PRN PRN Reason: HYPERTENSION ASSESSMENT AND PLAN: UTI r/o Sacral Decubitus Ulcer Infection Sepsis Volume Overload Acute on Chronic Diastolic Heart Failure Chronic Respiratory Failure h/o CVA COPD Atrial Fibrillation h/o GI Bleed HTN DM Anemia - IV antibiotics - f/u cultures - monitor H/H - holding anticoagulation for now - lasix - monitor urine output, creatinine - rate control - taper FiO2 to keep SpO2 >90% - DVT prophylaxis - can monitor on vent floor
[2019-02-10 11:04] LABS: ALBUMIN 1.2 g/dl (3.4-5.0); BILIRUBIN,TOTAL 0.4 mg/dL (0.2-1); BLOOD UREA NITROGEN 42.9 mg/dL (7-18); CREATININE 0.7 mg/dL (0.55-1.3); MAGNESIUM 2.7 mg/dL (1.8-2.4); PHOSPHOROUS 3.5 mg/dL (2.5-4.9); POTASSIUM 3.2 mmol/L (3.5-5.1); TOT PROT 5.3 g/dl (6.4-8.2)
[2019-02-10] MEDS: INSULIN SLIDING SCALE (NOVOLOG) 1 VIAL SQ SCH ×3 (12:22→21:46)
[2019-02-10] MEDS: KCL 10 MEQ IVPB 10 MEQ/100 ML INFUS.BAG IVPB SCH ×3 (12:24→16:23)
--- NOTE | 2019-02-10 12:39 | PN ---
Progress Note (short form) - Note Progress Note: ID CONSULT DICTATED SEPSIS UTI R/O SEPSIS SECONDARY TO UTI STAGE IV SACRAL DECUBITUS AWAIT C/S EMPIRIC ZOSYN
--- NOTE | 2019-02-10 15:39 | CONSULT ---
- Consultation REQUESTING PROVIDER: WOUND CARE - Zac Shore CONSULT REQUEST: We have been asked to surgically evaluate this patient for Sacral Ulcer PCP: Oni Wolfe History Source: Family Member, Transfer Record Limitations to Obtaining History: Clinical Condition HPI: Called to [facility] 78 yo female with sacral ulcer. PMHx: CVA (right hemiparesis and Aphasia) AFIB Aortic Stenosis CAD HTN Mitral Insufficiency COPD Diverticulosis GI Bleed Anemia Osteoarthritis Diabetes Mellitus PSHx: Colonoscopy, Upper Endoscopy, Colon polypectomy, Aortic Stenosis (s/p ring repair at [facility]), MVR 2010 [facility]), PPM, Trach Home Meds Apixaban [Eliquis -] 5 mg PO BID tablet 07/26/17 Ascorbic Acid [Vitamin C -] 500 mg PO DAILY 30 Days #60 tablet MDD 2 07/26/17 Atorvastatin Ca [Lipitor] 80 mg PO HS tablet 07/26/17 Ferrous Sulfate [Feosol] 325 mg PO DAILY@0800 ud 07/26/17 Pantoprazole Sodium [Protonix -] 40 mg PO DAILY tablet.ec 07/26/17 Fluoxetine HCl Liquid [Prozac 20mg/5mL Oral Solution -] 20 mg PO DAILY 04/28/18 Furosemide [Lasix -] 20 mg PO BID@0600,1400 04/28/18 L. Acidophilus/Pectin, [place] [Acidophilus-Pectin Capsule] 1 each PO TID Metformin HCl [Glucophage] 1,000 mg PO BID 04/28/18 Metoprolol Tartrate [Lopressor -] 75 mg PO TID 04/28/18 Sitagliptin Phosphate [Januvia] 50 mg PO BID 04/28/18 Tamsulosin HCl [Flomax] 0.4 mg PO DAILY 04/28/18 Insulin (Levemir) [Levemir Vial] 16 units SQ HS units 05/02/18 Lisinopril [Prinivil] 10 mg PO DAILY #30 tablet MDD 1 05/02/18 Ranolazine [Ranexa -] 500 mg PO BID tab 06/30/18 Allergies: NKDA ROS: Unable to obtain due to patient's clinicla condition. PE: GENERAL: Awake, alert, in no acute distress. HEAD: NC. AT. EYES: PERRL, sclera anicteric, conjunctiva clear. NECK: Trach on vent SKIN: Stage 4 sacral ulcer ~ 10 cm x 10 cm, bone exposed. + circumfrential undermining 5-6 cm. WOund is clean/pink. Base with small area of fibrinous exudate. No foul odor or evidence of infection Last Vital Signs Temp Pulse Resp BP Pulse Ox 98.3 F 106 H 18 114/49 L 100 02/10/19 14:00 02/10/19 14:00 02/10/19 14:00 02/10/19 14:00 02/10/19 10:00 CBC, BMP 02/10/19 10:10 02/10/19 10:10 Hepatic Panel Total Bilirubin 0.4 mg/dL (0.2-1) 02/10/19 10:10 AST 21 U/L (15-37) 02/10/19 10:10 ALT 26 U/L (13-61) 02/10/19 10:10 Alkaline Phosphatase 187 U/L (45-117) H 02/10/19 10:10 Albumin 1.2 g/dl (3.4-5.0) L 02/10/19 10:10 INR, PTT INR 1.28 (0.83-1.09) H 02/09/19 20:50 Urine Test Results Urine Color Yellow 02/09/19 20:50 Urine Appearance Turbid 02/09/19 20:50 Urine pH 7.0 (5.0-8.0) D 02/09/19 20:50 Ur Specific [place] 1.016 (1.010-1.035) 02/09/19 20:50 Urine Protein 1+ (NEGATIVE) H 02/09/19 20:50 Urine Glucose (UA) Negative (NEGATIVE) 02/09/19 20:50 Urine Ketones Negative (NEGATIVE) 02/09/19 20:50 Urine Blood 1+ (NEGATIVE) H 02/09/19 20:50 Urine Nitrite Negative (NEGATIVE) 02/09/19 20:50 Urine Bilirubin Negative (NEGATIVE) 02/09/19 20:50 Ur Leukocyte Esterase 3+ (NEGATIVE) H 02/09/19 20:50 Problem List - Problems (1) Stage 4 skin ulcer of sacral region Assessment/Plan: -Reposition every two hours while in bed -Air mattress recommended -Use drawsheets and Trendelenburg when repositioning to reduce friction and shear -Manageincontinence via timely cleansing, use of appropriate incontinence disposables and use of barrier ointment to intact skin -Ensure adequate hydration/nutrition, supplementation per primary team -Ensure off-loading to all bony areas (heels, ankles, hips and tailbone) with Allevyn/Optifoam -Clean open wounds with normal saline and apply (insert ointment/dressing) -Pack wound daily with moist kerlix, cover with OPTIfoam dressing -No surgical intervention -Cont ICU management Above plan discussed with my attending and agrees On behalf of Dr. Shore, thank you for the opportunity to participate in your patient's care. Code(s): L98.429 - NON-PRESSURE CHRONIC ULCER OF BACK WITH UNSPECIFIED SEVERITY (2) UTI (urinary tract infection) Code(s): N39.0 - URINARY TRACT INFECTION, SITE NOT SPECIFIED Qualifiers: Urinary tract infection type: catheter-associated UTI Indwelling urinary catheter type: unspecified Encounter type: initial encounter Qualified Code( s): T83.511A - Infection and inflammatory reaction due to indwelling urethral catheter, initial encounter; N39.0 - Urinary tract infection, site not specified (3) A-fib Code(s): I48.91 - UNSPECIFIED ATRIAL FIBRILLATION Qualifiers: Atrial fibrillation type: persistent (4) CAD (coronary artery disease) Code(s): I25.10 - ATHSCL HEART DISEASE OF [place] CORONARY ARTERY W/O ANG PCTRS Qualifiers: Coronary Disease-Associated Artery/Lesion type: [place] artery [place] vs. transplanted heart: [place] heart Associated angina: without angina Qualified Code(s): I25.10 - Atherosclerotic heart disease of [place] coronary artery without angina pectoris (5) CVA (cerebral vascular accident) Code(s): I63.9 - CEREBRAL INFARCTION, UNSPECIFIED Qualifiers: CVA mechanism: embolism (6) GIB (gastrointestinal bleeding) Code(s): K92.2 - GASTROINTESTINAL HEMORRHAGE, UNSPECIFIED Qualifiers: GI bleed type/associated pathology: unspecified gastrointestinal hemorrhage type Qualified Code(s): K92.2 - Gastrointestinal hemorrhage, unspecified (7) Diabetes mellitus Code(s): E11.9 - TYPE 2 DIABETES MELLITUS WITHOUT COMPLICATIONS Qualifiers: Diabetes mellitus type: type 2 Diabetes mellitus group home insulin use: without group home use Diabetes mellitus complication status: without complication Qualified Code(s): E11.9 - Type 2 diabetes mellitus without complications Visit type - Case Type Case Type: ED Admission - Emergency Emergency Visit: Yes ED Registration Date: 02/09/19 Care time: The patient presented to the Emergency Department on the above date and was hospitalized for further evaluation of their emergent condition. - New patient This patient is new to me today: Yes Date on this admission: 02/10/19
--- NOTE | 2019-02-10 16:07 | CONS ---
GASTROINTESTINAL CONSULTATION DATE OF CONSULTATION: DATE OF DICTATION: 02/10/2019 HISTORY OF PRESENT ILLNESS: Patient is a 78-year-old, female, past medical history of CAD, atrial fibrillation on anticoagulation, diabetes, hypertension, COPD, GI bleed, CVA with right upper quadrant and lower quadrant paralysis, nonverbal, PEG tube, and tracheostomy, who presents from the detention with complaints of hypotension and fevers. Patient is admitted with a diagnosis of CHF exacerbation and urosepsis. Patient's is at the bedside and provides some history regarding previous episode of GI bleed in 2018; at which time, patient had an upper endoscopy and colonoscopy. Upper endoscopy revealed gastritis. Colonoscopy revealed 4 polyps, which were removed at the time, as well as angiodysplasias of the cecum. No cautery was performed, secondary to no visualization of active bleeding at the time. Patient's hemoglobin, yesterday, was 6.6. As per the staff and nurse, there has been no report of any melena, hematochezia, vomiting or hematemesis. Further history cannot be obtained from the patient, secondary to her underlying comorbidities. PAST MEDICAL AND SURGICAL HISTORY: As listed on the HPI. ALLERGIES: No known drug allergies. HOME MEDICATIONS: Were reviewed. SOCIAL HISTORY: No smoking, drinking or using drugs. FAMILY HISTORY: Unable to obtain. REVIEW OF SYSTEMS: Limited, secondary to her underlying illness. PHYSICAL EXAMINATION: Vital Signs: Temperature 98, pulse 106, blood pressure 114/49, respiratory rate 12. She is on FiO2 of 40%, 100% saturation. General: In no acute distress. HEENT: Anicteric sclera. Cardiovascular: S1, S2. Regular rate and rhythm. Lungs: Clear anteriorly bilaterally. Abdomen: Soft. Nontender. PEG tube in place. Extremities: Without edema. LABORATORIES: White blood cell count 19, hemoglobin and hematocrit 8.7 over 28, MCV 84. On admission, her hemoglobin was 6.6 before transfusion, platelet count 340. Coagulation: INR 1.28. Sodium 153, potassium 3.2, BUN over creatinine 42 over 0.7, glucose 251, AST 21, ALT 26, alkaline phosphatase 186. Troponin was 0.06, currently 0.05, BNP over 3000. Urine: Leukocyte esterase 3+. The stool for occult blood is positive. IMAGING: She had a CT of the head done, today, which revealed nonhemorrhagic hypodensity infarct of indeterminate age, observed in the posterior aspect of the right centrum semiovale, involving the ventral aspect of the right precentral gyrus, not present on CT of the brain in 2019. IMPRESSION: 1. Sepsis. 2. Acute congestive heart failure. 3. History of cerebrovascular accident. 4. Now with anemia. Gastrointestinal blood loss cannot be excluded, at this time. Stool for occult blood is positive. Considering her acute diastolic heart failure and urosepsis, would prefer to hold off on any invasive procedures at this time. She should be treated conservatively with PPI. Hold anticoagulation. Serial CBCs q.12. Once she is optimized, from a cardiopulmonary perspective, repeat endoscopic evaluation can be performed. The likely etiology of her anemia is small-bowel angiodysplasia, which is intermittently oozing, in the setting of anticoagulation. Will follow. DO KARI LOZOYA/[id number]
[2019-02-10] MEDS: PIPERACILLIN/TAZOB 3.375 GM 3.375 GM in DEXTROSE 5%-WATER - 50 ML IVPB SCH (17:32)
--- NOTE | 2019-02-10 19:26 | CON.NEURO ---
Consult Consult Specialty:: NEUROLOGY-GEETHA KAM - History of Present Illness History of Present Illness: 78yo F w PMHx CAD, a fib on AC, DM, HTN, COPD, GI bleed, CVA (RUE/LE paralysis, non verbal), presenting from [facility] w/ hypotension, fevers. Pt is non verbal at baseline but reportedly eye tracks and follows simple commands (hand squeeze) . Per , pt was seen at [facility] for CVA 2 weeks ago, trached for respiratory failure. Sent to [facility] without improvement of symptoms. At [place], developed sacral ulcer and von arm swelling, breathing not improved. Sent to ED today for hypotension and fever. Patient , tearful and poor historian, states that patient was recently discontinued off AC and has developed bilateral upper extremity edema - reportedly new since ~2 weeks ago per , not noted in prior notes. ED Course: Patient found to meet sepsis criteria, given empiric antibiotics and IVF. BNP 4x previous high. Hgb 6.6, patient transfused [address] with indeterminate age infarct. Pt. unable to relate hx-CT head todayold right occipital/left b/g, i/c, marmolejo and centrum infarcts . Age indeterminate right centrum small infarct involving vent. aspect of right precentral gyrus-not present on CT 08/20 - Past Medical History PATENT AGENT: Yes: CVA (with right side hemiparesis and Aphasia) Cardio/Vascular: Yes: AFIB (on AC), Aortic Stenosis (s/p ring repair at [facility]), CAD, HTN, Mitral Insufficiency (MVR 2009 [facility]), Other (PPM) Pulmonary: Yes: COPD Gastrointestinal: Yes: Diverticulosis, GI Bleed (recent bleed felt to be 2ndary to vascular ectasias), Other (07/19 four adenomatous tx colon polyps resected, cecal angiodysplasias seen) Rheumatology: Yes: Other (osteoarthritis) Endocrine: Yes: Diabetes Mellitus - Past Surgical History Past Surgical History: Yes: Colonoscopy, Upper Endoscopy - Alcohol/Substance Use Hx Alcohol Use: No History of Substance Use: reports: None - Smoking History Smoking history: Unknown if ever smoked Have you smoked in the past 12 months: No If you are a former smoker, when did you quit?: 2007 - Social History Usual Living Arrangement: With Spouse ADL: Independent 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 History of Recent Travel: No Home Medications - Allergies Allergies/Adverse Reactions: Allergies Allergy/AdvReac Type Severity Reaction Status Date / Time No Known Allergies Allergy Verified 02/09/19 18:58 - Home Medications Home Medications: Ambulatory Orders Apixaban [Eliquis -] 5 mg PO BID tablet 07/26/17 Ascorbic Acid [Vitamin C -] 500 mg PO DAILY 30 Days #60 tablet MDD 2 07/26/17 Atorvastatin Ca [Lipitor] 80 mg PO HS tablet 07/26/17 Ferrous Sulfate [Feosol] 325 mg PO DAILY@0800 ud 07/26/17 Pantoprazole Sodium [Protonix -] 40 mg PO DAILY tablet.ec 07/26/17 Fluoxetine HCl Liquid [Prozac 20mg/5mL Oral Solution -] 20 mg PO DAILY 04/28/18 Furosemide [Lasix -] 20 mg PO BID@0600,1400 04/28/18 L. Acidophilus/Pectin, [place] [Acidophilus-Pectin Capsule] 1 each PO TID Metformin HCl [Glucophage] 1,000 mg PO BID 04/28/18 Metoprolol Tartrate [Lopressor -] 75 mg PO TID 04/28/18 Sitagliptin Phosphate [Januvia] 50 mg PO BID 04/28/18 Tamsulosin HCl [Flomax] 0.4 mg PO DAILY 04/28/18 Insulin (Levemir) [Levemir Vial] 16 units SQ HS units 05/02/18 Lisinopril [Prinivil] 10 mg PO DAILY #30 tablet MDD 1 05/02/18 Ranolazine [Ranexa -] 500 mg PO BID tab 06/30/18 Physical Exam-Neuro Vital Signs: Vital Signs Temperature 98.1 F 02/10/19 18:17 Pulse Rate 108 H 02/10/19 18:17 Respiratory Rate 19 02/10/19 18:17 Blood Pressure 106/58 L 02/10/19 18:17 O2 Sat by Pulse Oximetry (%) 99 02/10/19 10:20 Labs: CBC, BMP 02/10/19 10:10 02/10/19 10:10 INR, PTT INR 1.28 (0.83-1.09) H 02/09/19 20:50 - Neuro Exam Level Of Consciousness: Yes: Alert (Unable to test further) Eyes: Yes: PERRL (+ left HH to visual threat) Mini Mental Exam: Follows simple commands, tracks examiner with her eyes DTR's: 0 Left Brachioradialis, 0 Right Brachioradialis, 0 Left Achilles, 0 Right Achilles, 1+ Left Bicep, 1+ Right Bicep, 1+ Left Tricep, 1+ Right Tricep Motor Strength: 0/5: Right Arm, Right Leg, 1/5: Left Leg, 2/5: Left Arm Gait: Other (Unable to test) Assessment/Plan pt. with afib, cerebral multiple infarcts that appear embolic(she has afib), her mental status 2/2 delirium is improving. The right centrum infarct is not recent, appears at least weeks old as per todays CT. Suggest-resume a/c when possible. Carotid doppler study if not done within last 1 year. Thank you, Mariah Johns MD
[2019-02-10] MEDS ORDERED: CHLORHEXIDINE GLUCONATE 4% CLEANSER FOR DECOLONIZATION TP SCH (22:00)
[2019-02-11] MEDS ORDERED: PIPERACILLIN/TAZOBACTAM 3.375 GM VIAL IVPB ONE ×3 (01:15→18:58)
[2019-02-11] MEDS ORDERED: DEXTROSE 5%-WATER - 50 ML IVPB ONE ×3 (01:16→18:58)
[2019-02-11] MEDS: PIPERACILLIN/TAZOB 3.375 GM 3.375 GM in DEXTROSE 5%-WATER - 50 ML IVPB SCH ×3 (01:43→19:00)
[2019-02-11] MEDS: INSULIN SLIDING SCALE (NOVOLOG) 1 VIAL SQ SCH ×4 (07:03→22:37)
[2019-02-11 07:43] LABS: HEMATOCRIT 26.1 % (32.4-45.2); HEMOGLOBIN 8.3 GM/dL (10.7-15.3); MCH 26.7 pg (25.7-33.7); MCHC 31.8 g/dl (32.0-36.0); MEAN CELL VOLUME 83.9 fl (80-96); MEAN PLT VOLUME 9.7 fl (7.5-11.1); PLATELET COUNT 380 K/MM3 (134-434); RDW 19.1 % (11.6-15.6); WHITE BLOOD COUNT 16.3 K/mm3 (4.0-10.0)
[2019-02-11 08:13] LABS: ALBUMIN 1.3 g/dl (3.4-5.0); BILIRUBIN,TOTAL 0.4 mg/dL (0.2-1); BLOOD UREA NITROGEN 37.4 mg/dL (7-18); CALCIUM 8.1 mg/dL (8.5-10.1); CREATININE 0.6 mg/dL (0.55-1.3); MAGNESIUM 2.5 mg/dL (1.8-2.4); PHOSPHOROUS 4.1 mg/dL (2.5-4.9); POTASSIUM 3.3 mmol/L (3.5-5.1); TOT PROT 5.1 g/dl (6.4-8.2)
[2019-02-11] MEDS ORDERED: METOPROLOL TARTRATE 5 MG/5 ML VIAL IVPUSH PRN (08:19)
--- NOTE | 2019-02-11 09:42 | PN ---
Progress Note, Physician - Current Medication List Current Medications: Active Medications Piperacillin Sod/Tazobactam (Sod 3.375 gm/ Dextrose) 50 mls @ 100 mls/hr IVPB Q8H-IV [facility]; Protocol Last Admin: 02/11/19 01:43 Dose: 100 mls/hr Potassium Chloride (Potassium Chloride 10 Meq Premix Ivpb -) 10 meq in 100 mls @ 100 mls/hr IVPB Q60M [facility] Stop: 02/11/19 12:44 Sodium Chloride (1/2 Normal Saline) 1,000 mls @ 75 mls/hr IV ASDIR [facility] Insulin Aspart (Novolog Vial Sliding Scale -) 1 vial SQ ACHS [facility]; Protocol Last Admin: 02/11/19 07:03 Dose: Not Given Metoprolol Tartrate (Lopressor Injection -) 5 mg IVPUSH Q4H PRN PRN Reason: TACHYCARDIA - Objective Vital Signs: Vital Signs Temperature 98.0 F 02/11/19 06:00 Pulse Rate 123 H 02/11/19 08:23 Respiratory Rate 20 02/11/19 08:23 Blood Pressure 106/61 02/11/19 06:00 O2 Sat by Pulse Oximetry (%) 100 02/11/19 08:23 Cardiovascular: Yes: S1, S2 Respiratory: Yes: Mechanically Ventilated Gastrointestinal: Yes: Normal Bowel Sounds, Soft Neurological: Yes: Alert Labs: CBC, BMP 02/11/19 06:40 02/11/19 06:40 INR, PTT INR 1.28 (0.83-1.09) H 02/09/19 20:50 Problem List - Problems (1) Anemia Assessment/Plan: Transfuse Prbc monitor counts GI consult Code(s): D64.9 - ANEMIA, UNSPECIFIED Qualifiers: Anemia type: unspecified type Qualified Code(s): D64.9 - Anemia, unspecified (2) CHF exacerbation Assessment/Plan: cxr with effusion lasix 40 ivp Code(s): I50.9 - HEART FAILURE, UNSPECIFIED Qualifiers: Heart failure type: unspecified Qualified Code(s): I50.9 - Heart failure, unspecified (3) Sepsis Assessment/Plan: iv abx cultures id consult Code(s): A41.9 - SEPSIS, UNSPECIFIED ORGANISM Qualifiers: Sepsis type: sepsis due to unspecified organism Sepsis acute organ dysfunction status: without acute organ dysfunction Qualified Code(s): A41.9 - Sepsis, unspecified organism (4) UTI (urinary tract infection) Assessment/Plan: abx cultures Code(s): N39.0 - URINARY TRACT INFECTION, SITE NOT SPECIFIED Qualifiers: Urinary tract infection type: catheter-associated UTI Indwelling urinary catheter type: unspecified Encounter type: initial encounter Qualified Code( s): T83.511A - Infection and inflammatory reaction due to indwelling urethral catheter, initial encounter; N39.0 - Urinary tract infection, site not specified (5) A-fib Assessment/Plan: no ac due to anemia monitor rate ON METOPROLOL GIVE ONE DOSE DIG Code(s): I48.91 - UNSPECIFIED ATRIAL FIBRILLATION Qualifiers: Atrial fibrillation type: persistent (6) CVA (cerebral vascular accident) Assessment/Plan: h/o cva--ct noted r/o new event neuro consult Code(s): I63.9 - CEREBRAL INFARCTION, UNSPECIFIED (7) Hypernatremia Assessment/Plan: GIVEN LASIX YESTERDAY MONITOR RENAL CONSULT Code(s): E87.0 - HYPEROSMOLALITY AND HYPERNATREMIA
[2019-02-11] MEDS ORDERED: SODIUM CHLORIDE 0.45% 1,000 ML IV SCH (09:45)
[2019-02-11] MEDS: KCL 10 MEQ IVPB 10 MEQ/100 ML INFUS.BAG IVPB SCH ×3 (10:00→12:05)
[2019-02-11] MEDS ORDERED: FUROSEMIDE 40 MG/4 ML INJECTABLE VIAL IVPUSH ONE (11:10)
[2019-02-11] MEDS ORDERED: DEXTROSE 5%-WATER - 1,000 ML IV SCH (11:30)
--- NOTE | 2019-02-11 11:31 | CONSULT ---
Consult - text type - Consultation Consultation Note: Renal consult for Hypernatremia This is a 78 year old woman with history of recent CVA (now non-verbal), Afib on A/C, DM, Hypertension, COPD, CAD who [place] with hypotension and fevers and noted to have hypernatremia. Pt seen and examined in the ICU. Awake on Vent, non-verbal. On IVF. Craven in place. NO fevers overnight. HR elevated, BP stable. PMhx: as above Allergies: NKDA Family Hx: Unable to obtain Social Hx: Unable to obtain ROS: Unable to obtain due to clinical status Home Medications Medication Instructions Recorded Apixaban [Eliquis -] 5 mg PO BID tablet 07/26/17 Ascorbic Acid [Vitamin C -] 500 mg PO DAILY 30 Days #60 tablet 07/26/17 MDD 2 Atorvastatin Ca [Lipitor] 80 mg PO HS tablet 07/26/17 Ferrous Sulfate [Feosol] 325 mg PO DAILY@0800 ud 07/26/17 Pantoprazole Sodium [Protonix -] 40 mg PO DAILY tablet.ec 07/26/17 Fluoxetine HCl Liquid [Prozac 20 mg PO DAILY 04/28/18 20mg/5mL Oral Solution -] Furosemide [Lasix -] 20 mg PO BID@0600,1400 04/28/18 L. Acidophilus/Pectin, [place] 1 each PO TID 04/28/18 [Acidophilus-Pectin Capsule] Metformin HCl [Glucophage] 1,000 mg PO BID 04/28/18 Metoprolol Tartrate [Lopressor -] 75 mg PO TID 04/28/18 Sitagliptin Phosphate [Januvia] 50 mg PO BID 04/28/18 Tamsulosin HCl [Flomax] 0.4 mg PO DAILY 04/28/18 Insulin (Levemir) [Levemir Vial] 16 units SQ HS units 05/02/18 Lisinopril [Prinivil] 10 mg PO DAILY #30 tablet MDD 1 05/02/18 Ranolazine [Ranexa -] 500 mg PO BID tab 06/30/18 Vital Signs Temperature 98.0 F 02/11/19 06:00 Pulse Rate 118 H 02/11/19 10:03 Respiratory Rate 20 02/11/19 08:23 Blood Pressure 117/85 02/11/19 10:03 O2 Sat by Pulse Oximetry (%) 100 02/11/19 08:23 Intake & Output 02/08/19 02/09/19 02/10/19 02/11/19 23:59 23:59 23:59 23:59 Intake Total 900 50 Output Total 1550 275 Balance -650 -225 Weight 81.647 kg 67.132 kg 68.1 kg awake on vent, non-verbal trach in place tachycardic, no M/R Dec BS bilateral lung bases soft NT/ND NO LE edema, clubbing or cyanosis craven in place CBC, BMP 02/11/19 06:40 02/11/19 06:40 Laboratory Tests 02/09/19 02/10/19 02/11/19 20:50 10:10 06:40 Sodium 155 H 153 H 157 H Current Medications Heparin Sodium (Porcine) (Heparin -) 5,000 unit SQ BID [facility] Piperacillin Sod/Tazobactam (Sod 3.375 gm/ Dextrose) 50 mls @ 100 mls/hr IVPB Q8H-IV [facility]; Protocol Last Admin: 02/11/19 10:09 Dose: 100 mls/hr Potassium Chloride (Potassium Chloride 10 Meq Premix Ivpb -) 10 meq in 100 mls @ 100 mls/hr IVPB Q60M [facility] Stop: 02/11/19 12:44 Last Admin: 02/11/19 11:03 Dose: 100 mls/hr Dextrose (D5w -) 1,000 mls @ 100 mls/hr IV .Q10H [facility] Insulin Aspart (Novolog Vial Sliding Scale -) 1 vial SQ ACHS [facility]; Protocol Last Admin: 02/11/19 07:03 Dose: Not Given Metoprolol Tartrate (Lopressor Injection -) 5 mg IVPUSH Q4H PRN PRN Reason: TACHYCARDIA Last Admin: 02/11/19 10:03 Dose: 5 mg Metoprolol Tartrate (Lopressor -) 75 mg PO TID [facility] Pantoprazole Sodium (Protonix -) 40 mg PO DAILY [facility] Ranolazine (Ranexa -) 500 mg PO BID [facility] 78 year old woman with history of recent CVA (now non-verbal), Afib on A/C, DM, Hypertension, COPD, CAD who [place] with hypotension and fevers and noted to have hypernatremia. 1. Hypernatremia (water deficit 1.7L) 2. Fever/Sepsis 3. Recent CVA 4. Anemia 5. Suspected metabolic alkalosis 6. Leukocytosis 7. Pleural effusions/CHF with preserved LVEF (ECHO 04/2018) Water deficit is 1.7L, change IVF to D5W at 100cc per hour. Continue vent support as per ICU can give additional IV Lasix as needed for pleural effusions Continue tube feeds supplement K via feeding tube Continue antibiotics as per ICU trend H/H check ABG if bicab trends up Thank you Tashi Aguirre DO
--- NOTE | 2019-02-11 11:33 | PN ---
Teaching Attending Note Name of Resident: Dread Fernandez ATTENDING PHYSICIAN STATEMENT I saw and evaluated the patient. I reviewed the resident's note and discussed the case with the resident. I agree with the resident's findings and plan as documented. SUBJECTIVE: Pt seen and examined in the ICU. Awake, nonverbal. No fevers recorded. OBJECTIVE: Vital Signs Period Temp Pulse Resp BP Sys/[place] Pulse Ox Last 24 Hr 98.0 F-98.3 F 106-128 15-23 99-132/49-85 99-100 Intake & Output 02/08/19 02/09/19 02/10/19 02/11/19 23:59 23:59 23:59 23:59 Intake Total 900 50 Output Total 1550 275 Balance -650 -225 Weight 81.647 kg 67.132 kg 68.1 kg Gen: vented, awake Heart: irregular Lung: decreased breath sounds at the bases Abd: soft, nontender Ext: + edema CBC, BMP 02/11/19 06:40 02/11/19 06:40 Active Medications Heparin Sodium (Porcine) (Heparin -) 5,000 unit SQ BID [facility] Piperacillin Sod/Tazobactam (Sod 3.375 gm/ Dextrose) 50 mls @ 100 mls/hr IVPB Q8H-IV [facility]; Protocol Last Admin: 02/11/19 10:09 Dose: 100 mls/hr Potassium Chloride (Potassium Chloride 10 Meq Premix Ivpb -) 10 meq in 100 mls @ 100 mls/hr IVPB Q60M [facility] Stop: 02/11/19 12:44 Last Admin: 02/11/19 11:03 Dose: 100 mls/hr Dextrose (D5w -) 1,000 mls @ 100 mls/hr IV .Q10H [facility] Insulin Aspart (Novolog Vial Sliding Scale -) 1 vial SQ ACHS [facility]; Protocol Last Admin: 02/11/19 07:03 Dose: Not Given Metoprolol Tartrate (Lopressor Injection -) 5 mg IVPUSH Q4H PRN PRN Reason: TACHYCARDIA Last Admin: 02/11/19 10:03 Dose: 5 mg Metoprolol Tartrate (Lopressor -) 75 mg PO TID [facility] Pantoprazole Sodium (Protonix -) 40 mg PO DAILY [facility] Ranolazine (Ranexa -) 500 mg PO BID [facility] ASSESSMENT AND PLAN: UTI r/o Sacral Decubitus Ulcer Infection Sepsis Volume Overload Acute on Chronic Diastolic Heart Failure Chronic Respiratory Failure h/o CVA COPD Atrial Fibrillation h/o GI Bleed HTN DM Anemia - continue antibiotics - f/u cultures - monitor H/H - holding anticoagulation for now - increase free water - lasix - monitor urine output, creatinine - replete lytes - rate control, resume home metoprolol dose - start enteral feeds - taper FiO2 to keep SpO2 >90% - DVT/GI prophylaxis - can monitor on vent floor
--- NOTE | 2019-02-11 13:47 | PN ---
Physical Exam: SUBJECTIVE: Patient seen and examined on AM bedside rounds. Remains trached / ventilated. Tracking movements but nonverbal. OBJECTIVE: Vital Signs Period Temp Pulse Resp BP Sys/[place] Pulse Ox Last 24 Hr 98.0 F-98.3 F 106-128 15-23 99-117/49-85 99-100 GENERAL: The patient is awake, alert, tracks movement. HEAD: NC/AT EYES: EOMI ENT: dry mucous membranes NECK: tracheostomy in place LUNGS: diminished breath sounds bilaterally, no wheezes, no crackles, no accessory muscle use. HEART: RRR, no murmur heard ABDOMEN: Soft, nontender, nondistended, normoactive bowel sounds, no guarding EXTREMITIES: 2+ pulses, warm. +edema of all extremities NEUROLOGICAL: alert, tracks movement in room PSYCH: unable to assess SKIN: Warm, dry. Stage 4 sacral ulcer Laboratory Results - last 24 hr 02/10/19 02/10/19 02/11/19 16:26 21:37 06:40 WBC 16.3 H RBC 3.10 L Hgb 8.3 L Hct 26.1 L MCV 83.9 MCH 26.7 MCHC 31.8 L RDW 19.1 H Plt Count 380 MPV 9.7 Sodium Potassium Chloride Carbon Dioxide Anion Gap BUN Creatinine Est GFR (CKD-EPI)AfAm Est GFR (CKD-EPI)NonAf POC Glucometer 165 178 Random Glucose Calcium Phosphorus Magnesium Total Bilirubin AST ALT Alkaline Phosphatase Total Protein Albumin 02/11/19 02/11/19 02/11/19 06:40 06:49 11:21 WBC RBC Hgb Hct MCV MCH MCHC RDW Plt Count MPV Sodium 157 H Potassium 3.3 L Chloride 117 H Carbon Dioxide 34 H Anion Gap 6 L BUN 37.4 H Creatinine 0.6 Est GFR (CKD-EPI)AfAm 102.62 Est GFR (CKD-EPI)NonAf 88.54 POC Glucometer 137 146 Random Glucose 136 H Calcium 8.1 L Phosphorus 4.1 Magnesium 2.5 H Total Bilirubin 0.4 AST 15 ALT 22 Alkaline Phosphatase 159 H Total Protein 5.1 L Albumin 1.3 L Active Medications Generic Name Dose Route Start Last Admin Trade Name Freq PRN Reason Stop Dose Admin Digoxin 0.25 mg 02/11/19 13:35 Lanoxin Injection - IVPUSH 02/11/19 13:36 ONCE ONE Heparin Sodium (Porcine) 5,000 unit 02/11/19 22:00 Heparin - SQ BID [facility] Piperacillin Sod/Tazobactam 50 mls @ 100 mls/hr 02/10/19 18:00 02/11/19 10:09 Sod 3.375 gm/ Dextrose IVPB 100 mls/hr Q8H-IV [facility] Administration Protocol Dextrose 1,000 mls @ 100 mls/hr 02/11/19 11:30 D5w - IV .Q10H [facility] Insulin Aspart 1 vial 02/10/19 11:00 02/11/19 12:29 Novolog Vial Sliding Scale - SQ Not Given ACHS [facility] Protocol Metoprolol Tartrate 5 mg 02/11/19 08:19 02/11/19 10:03 Lopressor Injection - IVPUSH 5 mg Q4H PRN Administration TACHYCARDIA Metoprolol Tartrate 75 mg 02/11/19 14:00 Lopressor - PO TID [facility] Pantoprazole Sodium 40 mg 02/12/19 10:00 Protonix - PO DAILY [facility] Ranolazine 500 mg 02/11/19 22:00 Ranexa - PO BID [facility] ASSESSMENT/PLAN: 78 y/o/f w PMHx CAD, a fib on AC, DM, HTN, COPD, GI bleed, CVA (RUE/LE paralysis , non verbal), presenting from [facility] w/ hypotension, fevers. Found to be septic, with UTI on UA - presumed urosepsis, superimposed CHF exacerbation with elevated BNP and peripheral edema. #Neuro - Alert, awake, tracks movement in room - Hx of 2 strokes - Admission head CT without acute pathology, chronic infarcts of unknown age identified #Cardiovascular: HTN - Hx of HTN - Lopressor 5mg IV Q4hr PRN for hypertension - Lasix 40mg IV as necessary - Restarted home metoprolol TID #Pulm: COPD - Maintain SpO2 >90% - Patient with tracheostomy, adjust vent settings as appropriate - CXR improving #GI - Stool occult blood positive - Initial hgb 6.6, now 8.7 s/p 1 unit PRBC transfusion, improving - Monitor H&H, transfuse as needed - Starting tube feeds today - Appreciate GI recs #Renal - Trend BUN/Cr. Renal function improving compared to initial labs. - Maintain craven #Endo - Hx DM - ISS - BGMs #ID - WBC 19.0, febrile on admission, now afebrile. monitor - Sepsis 2/2 UTI vs. PNA vs. Sacral would source - Cultures negative to date, f/u - Follow up sacral wound culture - Continue Zosyn - ID on board, appreciate recs - Wound care consulted #Prophylaxis - Starting SQH, monitor given ?GI bleed #FEN - Hold IVF due to volume overloaded status - Increasing free water for hypernatremia - Monitor and replete lytes as needed #Disposition [facility] Visit type - Emergency Visit Emergency Visit: Yes ED Registration Date: 02/09/19 Care time: The patient presented to the Emergency Department on the above date and was hospitalized for further evaluation of their emergent condition. - New Patient This patient is new to me today: No - Critical Care Critical Care patient: Yes Total Critical Care Time (in minutes): 36 Critical Care Statement: The care of this patient involved high complexity decision making to prevent further life threatening deterioration of the patient 's condition and/or to evaluate & treat vital organ system(s) failure or risk of failure. ATTENDING PHYSICIAN STATEMENT I saw and evaluated the patient. I reviewed the resident's note and discussed the case with the resident. I agree with the resident's findings and plan as documented. SUBJECTIVE: OBJECTIVE: ASSESSMENT AND PLAN:
[2019-02-11] MEDS: METOPROLOL TARTRATE 50 MG TABLET (FP) PO SCH ×2 (13:56→21:21)
[2019-02-11] MEDS ORDERED: DIGOXIN 0.5 MG/2 ML AMPUL IVPUSH ONE (14:00)
--- NOTE | 2019-02-11 14:24 | CON.CARD ---
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), CAD, HTN, Mitral Insufficiency (MVR 2009 [facility]), Other (PPM) Pulmonary: Yes: COPD Gastrointestinal: Yes: Diverticulosis, GI Bleed (recent bleed felt to be 2ndary to vascular ectasias), Other (07/19 four adenomatous tx colon polyps resected, cecal angiodysplasias seen) Rheumatology: Yes: Other (osteoarthritis) Endocrine: Yes: Diabetes Mellitus - Past Surgical History Past Surgical History: Yes: Colonoscopy, Upper Endoscopy - Alcohol/Substance Use Hx Alcohol Use: No History of Substance Use: reports: None - Smoking History Smoking history: Unknown if ever smoked Have you smoked in the past 12 months: No If you are a former smoker, when did you quit?: 2007 - Social History Usual Living Arrangement: With Spouse ADL: Independent 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 [employer] History of Recent Travel: No Home Medications - Allergies Allergies/Adverse Reactions: Allergies Allergy/AdvReac Type Severity Reaction Status Date / Time No Known Allergies Allergy Verified 02/09/19 18:58 - Home Medications Home Medications: Ambulatory Orders Apixaban [Eliquis -] 5 mg PO BID tablet 07/26/17 Ascorbic Acid [Vitamin C -] 500 mg PO DAILY 30 Days #60 tablet MDD 2 07/26/17 Atorvastatin Ca [Lipitor] 80 mg PO HS tablet 07/26/17 Ferrous Sulfate [Feosol] 325 mg PO DAILY@0800 ud 07/26/17 Pantoprazole Sodium [Protonix -] 40 mg PO DAILY tablet.ec 07/26/17 Fluoxetine HCl Liquid [Prozac 20mg/5mL Oral Solution -] 20 mg PO DAILY 04/28/18 Furosemide [Lasix -] 20 mg PO BID@0600,1400 04/28/18 L. Acidophilus/Pectin, [place] [Acidophilus-Pectin Capsule] 1 each PO TID Metformin HCl [Glucophage] 1,000 mg PO BID 04/28/18 Metoprolol Tartrate [Lopressor -] 75 mg PO TID 04/28/18 Sitagliptin Phosphate [Januvia] 50 mg PO BID 04/28/18 Tamsulosin HCl [Flomax] 0.4 mg PO DAILY 04/28/18 Insulin (Levemir) [Levemir Vial] 16 units SQ HS units 05/02/18 Lisinopril [Prinivil] 10 mg PO DAILY #30 tablet MDD 1 05/02/18 Ranolazine [Ranexa -] 500 mg PO BID tab 06/30/18 Review of Systems Unable to obtain ROS, reason: Trach Vital Signs: Vital Signs Temperature 98.0 F 02/11/19 06:00 Pulse Rate 110 H 02/11/19 13:55 Respiratory Rate 18 02/11/19 11:48 Blood Pressure 117/85 02/11/19 10:03 O2 Sat by Pulse Oximetry (%) 100 02/11/19 08:23 Constitutional: Yes: No Distress, Calm, Thin Neck: Yes: Supple Respiratory: Yes: Regular, Diminished, Mechanically Ventilated, Rhonchi Gastrointestinal: Yes: Normal Bowel Sounds, Soft Cardiovascular: Yes: Pulse Irregular JVD: No Carotid Bruit: No Heart Sounds: Yes: S1, S2 Murmur: Yes: Systolic Murmur, Grade 1 Edema: No - Other Data Labs, Other Data: CBC, BMP 02/11/19 06:40 02/11/19 06:40 INR, PTT INR 1.28 (0.83-1.09) H 02/09/19 20:50 Afib @108 PRWP Ejection Fraction %: LVEF > or = 40 % Imaging - Results Chest X-ray: Report Reviewed (Bilateral effusions with congestion) Cat Scan: Report Reviewed (HCT: Chronic bilateral cerebral infarcts) Problem List - Problems (1) Anemia Code(s): D64.9 - ANEMIA, UNSPECIFIED Qualifiers: Anemia type: unspecified type Qualified Code(s): D64.9 - Anemia, unspecified (2) CHF exacerbation Code(s): I50.9 - HEART FAILURE, UNSPECIFIED Qualifiers: Heart failure type: unspecified Qualified Code(s): I50.9 - Heart failure, unspecified (3) Sepsis Code(s): A41.9 - SEPSIS, UNSPECIFIED ORGANISM Qualifiers: Sepsis type: sepsis due to unspecified organism Sepsis acute organ dysfunction status: without acute organ dysfunction Qualified Code(s): A41.9 - Sepsis, unspecified organism (4) Stage 4 skin ulcer of sacral region Code(s): L98.429 - NON-PRESSURE CHRONIC ULCER OF BACK WITH UNSPECIFIED SEVERITY (5) UTI (urinary tract infection) Code(s): N39.0 - URINARY TRACT INFECTION, SITE NOT SPECIFIED Qualifiers: Urinary tract infection type: catheter-associated UTI Indwelling urinary catheter type: unspecified Encounter type: initial encounter Qualified Code( s): T83.511A - Infection and inflammatory reaction due to indwelling urethral catheter, initial encounter; N39.0 - Urinary tract infection, site not specified (6) A-fib Code(s): I48.91 - UNSPECIFIED ATRIAL FIBRILLATION Qualifiers: Atrial fibrillation type: persistent Qualified Code(s): I48.19 - Other persistent atrial fibrillation (7) Angiodysplasia of colon with hemorrhage Code(s): K55.21 - ANGIODYSPLASIA OF COLON WITH HEMORRHAGE (8) CAD (coronary artery disease) Code(s): I25.10 - ATHSCL HEART DISEASE OF [place] CORONARY ARTERY W/O ANG PCTRS Qualifiers: Coronary Disease-Associated Artery/Lesion type: [place] artery [place] vs. transplanted heart: [place] heart Associated angina: without angina Qualified Code(s): I25.10 - Atherosclerotic heart disease of [place] coronary artery without angina pectoris (9) CKD (chronic kidney disease) Code(s): N18.9 - CHRONIC KIDNEY DISEASE, UNSPECIFIED Qualifiers: Chronic kidney disease stage: stage 2 (mild) Qualified Code(s): N18.2 - Chronic kidney disease, stage 2 (mild) (10) CVA (cerebral vascular accident) Code(s): I63.9 - CEREBRAL INFARCTION, UNSPECIFIED Qualifiers: CVA mechanism: embolism (11) Diabetes mellitus Code(s): E11.9 - TYPE 2 DIABETES MELLITUS WITHOUT COMPLICATIONS Qualifiers: Diabetes mellitus type: type 2 (12) GIB (gastrointestinal bleeding) Code(s): K92.2 - GASTROINTESTINAL HEMORRHAGE, UNSPECIFIED Qualifiers: GI bleed type/associated pathology: unspecified gastrointestinal hemorrhage type Qualified Code(s): K92.2 - Gastrointestinal hemorrhage, unspecified (13) Hemoglobin decreased Code(s): R71.0 - PRECIPITOUS DROP IN HEMATOCRIT (14) Hypernatremia Code(s): E87.0 - HYPEROSMOLALITY AND HYPERNATREMIA (15) Diabetes mellitus Code(s): E11.9 - TYPE 2 DIABETES MELLITUS WITHOUT COMPLICATIONS Qualifiers: Diabetes mellitus type: type 2 Diabetes mellitus intermediate card tender insulin use: without intermediate card tender use Diabetes mellitus complication status: without complication Qualified Code(s): E11.9 - Type 2 diabetes mellitus without complications (16) H/O mitral valve replacement Code(s): Z95.2 - PRESENCE OF PROSTHETIC HEART VALVE (17) HTN (hypertension) Code(s): I10 - ESSENTIAL (PRIMARY) HYPERTENSION Qualifiers: Hypertension type: essential hypertension Qualified Code(s): I10 - Essential (primary) hypertension (18) Hyperlipidemia Code(s): E78.5 - HYPERLIPIDEMIA, UNSPECIFIED Qualifiers: Hyperlipidemia type: pure hypercholesterolemia Qualified Code(s): E78.00 - Pure hypercholesterolemia, unspecified; E78.0 - Pure hypercholesterolemia (19) Pacemaker Code(s): Z95.0 - PRESENCE OF CARDIAC PACEMAKER Assessment/Plan 04/30/2018 Echo: Normal LV size and fxn, severe TR RVSP 50-60 mmHg, mild MR EGD and colonoscopy in 07/2017 revealing gastritis, cecal AVM and four tubular adenomas 12/17/2016 reveal: 03/2009 acute systolic CHF and MD, R&LHc 90% distal OM1, 60% D1, preserved LV fxn, elevated LVEDP [place] severe posterior leaflet prolapse with severe MR->MV annuloplasty repair, afib, sinus arrest->PPM, CAD left alone. [facility] Echo: 06/28/16 normal biventricular fxn, COSMO, mod TR, MV ring Nuc stress 09/13/2016 Anterolateral ischemia/infarct SDS 3 EF 82%, abnl ecg changes 1. Acute on chronic diastolic heart failure 2. Chronic respiratory failure s/p trach and PEG 2. Coronary artery disease demand ischemic injury angina pectoris 3. Permanent atrial fibrillation [id number] score of 9, on anticoagulation therapy now off Eliquis 4. Sick sinus syndrome post permanent pacemaker implantation 5. Post mitral valve repair 6. UTI, r/o stage IV sacral decubitus ulcer Infection 6. HTN 7. DM 8. Hypercholesterolemia 9. 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 COPD 11. CKD with hypernatremia 12. Anemia post transfusion, suspect component of chronic blood loss from underlying avms based on prior endoscopic findings PLAN: 1. Continue antibiotics per C&S 2. Monitor Hgb post transfusion and resume Eliquis 5 bid once hemostasis assured and able to undergo endoscopic evaluation with possible therapeutic intent after optimization from a cardiorespiratory standpoint and electrolytes normalized 3. IV diuresis with monitor diuretic response, renal fxn and electrolytes, increase free water repletion and replete K 4. Continue Lipitor 80 qhs, Lopressor 75 tid, Lisinopril 10 qd and Ranexa 500 bid 5. Enteral feeds 6. Patient previously followed up with Dr. Dread Cowan/cardiology/[facility], to consider Watchman as outpatient if Eliquis compliance is sub-optimal or recurrent bleeding/history of GI bleed- vascular ectasia 7. Wound care 8. Thank you for consultative opportunity
--- NOTE | 2019-02-11 15:55 | PN.GI ---
GI Progress Note Subjective: Pt seen/examined at bedside, pts present. Pt nonverbal, greenish brown stool reported per nursing staff. - Objective Vital Signs: Vital Signs Temperature 98.7 F 02/11/19 14:00 Pulse Rate 100 H 02/11/19 14:00 Respiratory Rate 18 02/11/19 15:50 Blood Pressure 104/47 L 02/11/19 14:00 O2 Sat by Pulse Oximetry (%) 100 02/11/19 08:23 Constitutional: Other (nonverbal, no obvious distress) Cardiovascular: Yes: WNL, Regular Rate and Rhythm Respiratory: Yes: Mechanically Ventilated ...Palpate: Yes: Other (Abd soft, no tenderness elicited, non distended +PEG in place) Labs: CBC, BMP 02/11/19 06:40 02/11/19 06:40 INR, PTT INR 1.28 (0.83-1.09) H 02/09/19 20:50 Problem List - Problems (1) Anemia Assessment/Plan: 78yo female h/o CVA, respiratory failure s/p trach, PEG, A fib on eliquis ( currently on hold), sick sinus syndrome s/p PPM and COPD presenting from [facility] with fever and hypotension with anemia. No overt bleeding. Prior EGD and colonoscopy in 07/2017 revealing gastritis, cecal AVM and four tubular adenomas. While etiology for anemia may be multifactorial suspect component of chronic blood loss from underlying avms based on prior endoscopic findings. -Continue to monitor Hb and for evidence of bleeding -PPI daily -Repeat iron studies/ferritin on pretransfusion labs if possible -No urgency for endoscopy in absence of overt bleeding however as pt is to resume a/c would recommend endoscopic evaluation with possible therapeutic intent once further optimized from a cardiorespiratory standpoint and electrolytes normalized Code(s): D64.9 - ANEMIA, UNSPECIFIED Qualifiers: Anemia type: unspecified type Qualified Code(s): D64.9 - Anemia, unspecified
[2019-02-11] MEDS: HEPARIN NA (PORCINE) 5,000 UNITS/ML 1ML VIAL SQ SCH (21:20)
[2019-02-11] MEDS: RANOLAZINE E.R. 500 MG TABLET (FP) PO SCH (21:21)
--- NOTE | 2019-02-11 23:26 | PN ---
Progress Note, Physician History of Present Illness: AWAKE ON VENT NO ACUTE DISTRESS TEMPS DOWN AFEBRILE URINE C/S LF SACRAL WOUND C/S POLYMICROBIAL WBC IMPROVED - Current Medication List Current Medications: Active Medications Heparin Sodium (Porcine) (Heparin -) 5,000 unit SQ BID [facility] Last Admin: 02/11/19 21:20 Dose: 5,000 unit Piperacillin Sod/Tazobactam (Sod 3.375 gm/ Dextrose) 50 mls @ 100 mls/hr IVPB Q8H-IV [facility]; Protocol Last Admin: 02/11/19 19:00 Dose: 100 mls/hr Dextrose (D5w -) 1,000 mls @ 100 mls/hr IV .Q10H [facility] Insulin Aspart (Novolog Vial Sliding Scale -) 1 vial SQ ACHS [facility]; Protocol Last Admin: 02/11/19 22:37 Dose: 4 units Metoprolol Tartrate (Lopressor Injection -) 5 mg IVPUSH Q4H PRN PRN Reason: TACHYCARDIA Last Admin: 02/11/19 10:03 Dose: 5 mg Metoprolol Tartrate (Lopressor -) 75 mg PO TID [facility] Last Admin: 02/11/19 21:21 Dose: 75 mg Pantoprazole Sodium (Protonix -) 40 mg PO DAILY [facility] Ranolazine (Ranexa -) 500 mg PO BID [facility] Last Admin: 02/11/19 21:21 Dose: 500 mg - Objective Vital Signs: Vital Signs Temperature 98.7 F 02/11/19 14:00 Pulse Rate 90 02/11/19 18:00 Respiratory Rate 18 02/11/19 20:30 Blood Pressure 110/43 L 02/11/19 18:00 O2 Sat by Pulse Oximetry (%) 100 02/11/19 08:23 Constitutional: Yes: No Distress Eyes: Yes: Conjunctiva Clear Cardiovascular: Yes: Regular Rate and Rhythm, S1, S2 Respiratory: Yes: CTA Bilaterally Gastrointestinal: Yes: Normal Bowel Sounds, Soft Labs: CBC, BMP 02/11/19 06:40 02/11/19 06:40 INR, PTT INR 1.28 (0.83-1.09) H 02/09/19 20:50 Assessment/Plan UTI R/O SEPSIS SECONDARY TO UTI STAGE IV SACRAL DECUBITUS LEUKOCYTOSIS CHRONIC RESPIRATORY FAILURE AWAIT C/S CONTINUE EMPIRIC ZOSYN
[2019-02-12] MEDS ORDERED: DEXTROSE 5%-WATER - 50 ML IVPB ONE (01:02)
[2019-02-12] MEDS ORDERED: PIPERACILLIN/TAZOBACTAM 3.375 GM VIAL IVPB ONE (01:02)
[2019-02-12] MEDS: PIPERACILLIN/TAZOB 3.375 GM 3.375 GM in DEXTROSE 5%-WATER - 50 ML IVPB SCH ×2 (01:34→22:36)
[2019-02-12] MEDS: METOPROLOL TARTRATE 25 MG TABLET (FP) PO SCH ×2 (06:32→16:02)
--- NOTE | 2019-02-12 07:13 | PN ---
Physical Exam: SUBJECTIVE: Patient seen and examined. No acute events overnight. Patient unable to speak due to trach. OBJECTIVE: Vital Signs Period Temp Pulse Resp BP Sys/[place] Pulse Ox Last 24 Hr 98.2 F-98.7 F 77-123 16-23 95-117/43-85 100-100 GENERAL: The patient is awake, alert, tracks movement. HEAD: NC/AT EYES: EOMI ENT: dry mucous membranes NECK: tracheostomy in place LUNGS: diminished breath sounds bilaterally, no wheezes, no crackles, no accessory muscle use. HEART: RRR, no murmur heard ABDOMEN: Soft, nontender, nondistended, normoactive bowel sounds, no guarding EXTREMITIES: 2+ pulses, warm. +edema of all extremities, somewhat improving NEUROLOGICAL: alert, tracks movement in room SKIN: Warm, dry. Stage 4 sacral ulcer Laboratory Results - last 24 hr 02/11/19 02/11/19 02/11/19 06:40 06:40 11:21 WBC 16.3 H RBC 3.10 L Hgb 8.3 L Hct 26.1 L MCV 83.9 MCH 26.7 MCHC 31.8 L RDW 19.1 H Plt Count 380 MPV 9.7 Sodium 157 H Potassium 3.3 L Chloride 117 H Carbon Dioxide 34 H Anion Gap 6 L BUN 37.4 H Creatinine 0.6 Est GFR (CKD-EPI)AfAm 102.62 Est GFR (CKD-EPI)NonAf 88.54 POC Glucometer 146 Random Glucose 136 H Calcium 8.1 L Phosphorus 4.1 Magnesium 2.5 H Total Bilirubin 0.4 AST 15 ALT 22 Alkaline Phosphatase 159 H Total Protein 5.1 L Albumin 1.3 L 02/11/19 02/11/19 17:00 22:15 WBC RBC Hgb Hct MCV MCH MCHC RDW Plt Count MPV Sodium Potassium Chloride Carbon Dioxide Anion Gap BUN Creatinine Est GFR (CKD-EPI)AfAm Est GFR (CKD-EPI)NonAf POC Glucometer 194 221 Random Glucose Calcium Phosphorus Magnesium Total Bilirubin AST ALT Alkaline Phosphatase Total Protein Albumin Active Medications Generic Name Dose Route Start Last Admin Trade Name Freq PRN Reason Stop Dose Admin Heparin Sodium (Porcine) 5,000 unit 02/11/19 22:00 02/11/19 21:20 Heparin - SQ 5,000 unit BID [facility] Administration Piperacillin Sod/Tazobactam 50 mls @ 100 mls/hr 12/10/19 18:00 02/12/19 01:34 Sod 3.375 gm/ Dextrose IVPB 100 mls/hr Q8H-IV [facility] Administration Protocol Dextrose 1,000 mls @ 100 mls/hr 02/11/19 11:30 D5w - IV .Q10H [facility] Insulin Aspart 1 vial 02/10/19 11:00 02/11/19 22:37 Novolog Vial Sliding Scale - SQ 4 units ACHS [facility] Administration Protocol Metoprolol Tartrate 5 mg 02/11/19 08:19 02/11/19 10:03 Lopressor Injection - IVPUSH 5 mg Q4H PRN Administration TACHYCARDIA Metoprolol Tartrate 75 mg 02/12/19 06:30 02/12/19 06:32 Lopressor - PO 75 mg TID [facility] Administration Pantoprazole Sodium 40 mg 02/12/19 10:00 Protonix - PO DAILY [facility] Ranolazine 500 mg 02/11/19 22:00 02/11/19 21:21 Ranexa - PO 500 mg BID [facility] Administration ASSESSMENT/PLAN: 78 y/o/f w PMHx CAD, a fib on AC, DM, HTN, COPD, GI bleed, CVA (RUE/LE paralysis , non verbal), presenting from [facility] w/ hypotension, fevers. Found to be septic, with UTI on UA - presumed urosepsis, superimposed CHF exacerbation with elevated BNP and peripheral edema. #Neuro - Alert, awake, tracks movement in room - Hx of 2 strokes - Admission head CT without acute pathology, chronic infarcts of unknown age identified #Cardiovascular - Hx of HTN - Lopressor 5mg IV Q4hr PRN for hypertension - Lasix 40mg BID - Restarted home metoprolol TID #Pulm - hx COPD - Maintain SpO2 >90% - Patient with tracheostomy, adjust vent settings as appropriate - CXR with improving aeration today #GI - Stool occult blood positive - Initial hgb 6.6, now 8.5. Stable - s/p 1 unit PRBC transfusion - Monitor H&H, transfuse as needed - advance tube feeds to goal - Appreciate GI recs - As per GI - No urgency for endoscopy in absence of overt bleeding however as pt is to resume a/c would recommend endoscopic evaluation with possible therapeutic intent once further optimized from a cardiorespiratory standpoint and electrolytes normalized #Renal - Trend BUN/Cr. Renal function improving compared to initial labs. - Maintain craven #Endo - Hx DM - ISS - BGMs #ID - WBC 15, febrile on admission, now afebrile. monitor - Sepsis 2/2 UTI vs. PNA vs. Sacral would source - Wound and urine cultures growing carbapenem resistant organisms, abx as per ID - Blood cx negative to date - ID on board, appreciate recs - Starting Avycaz - Wound care consulted - Isolation precautions #Prophylaxis - Started Lovenox 70mg BID, patient with history of multiple CVAs #FEN - D5W @100mls/hr - Increasing free water for hypernatremia - Monitor and replete lytes as needed #Disposition - Pending transfer to [facility] floor, stable Visit type - Emergency Visit Emergency Visit: Yes ED Registration Date: 02/09/19 Care time: The patient presented to the Emergency Department on the above date and was hospitalized for further evaluation of their emergent condition. - New Patient This patient is new to me today: No - Critical Care Critical Care patient: Yes Total Critical Care Time (in minutes): 36 Critical Care Statement: The care of this patient involved high complexity decision making to prevent further life threatening deterioration of the patient 's condition and/or to evaluate & treat vital organ system(s) failure or risk of failure. ATTENDING PHYSICIAN STATEMENT I saw and evaluated the patient. I reviewed the resident's note and discussed the case with the resident. I agree with the resident's findings and plan as documented. SUBJECTIVE: OBJECTIVE: ASSESSMENT AND PLAN:
[2019-02-12] MEDS: INSULIN SLIDING SCALE (NOVOLOG) 1 VIAL SQ SCH ×4 (07:50→22:20)
--- NOTE | 2019-02-12 09:02 | PN ---
Progress Note, Physician History of Present Illness: Afebrile, hemodynamics stabilizing, remains in rate-controlled afib. - Current Medication List Current Medications: Active Medications Heparin Sodium (Porcine) (Heparin -) 5,000 unit SQ BID [facility] Last Admin: 02/11/19 21:20 Dose: 5,000 unit Piperacillin Sod/Tazobactam (Sod 3.375 gm/ Dextrose) 50 mls @ 100 mls/hr IVPB Q8H-IV [facility]; Protocol Last Admin: 02/12/19 01:34 Dose: 100 mls/hr Dextrose (D5w -) 1,000 mls @ 100 mls/hr IV .Q10H [facility] Insulin Aspart (Novolog Vial Sliding Scale -) 1 vial SQ ACHS [facility]; Protocol Last Admin: 02/12/19 07:50 Dose: 6 units Metoprolol Tartrate (Lopressor Injection -) 5 mg IVPUSH Q4H PRN PRN Reason: TACHYCARDIA Last Admin: 02/11/19 10:03 Dose: 5 mg Metoprolol Tartrate (Lopressor -) 75 mg PO TID [facility] Last Admin: 02/12/19 06:32 Dose: 75 mg Pantoprazole Sodium (Protonix -) 40 mg PO DAILY [facility] Ranolazine (Ranexa -) 500 mg PO BID [facility] Last Admin: 02/11/19 21:21 Dose: 500 mg - Objective Vital Signs: Vital Signs Temperature 98.1 F 02/12/19 06:00 Pulse Rate 88 02/12/19 08:22 Respiratory Rate 18 02/12/19 08:22 Blood Pressure 106/62 02/12/19 06:00 O2 Sat by Pulse Oximetry (%) 99 02/12/19 08:22 Constitutional: Yes: No Distress, Calm HENT: Yes: Other (Trach) Neck: Yes: Supple Cardiovascular: Yes: Pulse Irregular Respiratory: Yes: Mechanically Ventilated, Rhonchi Gastrointestinal: Yes: Normal Bowel Sounds, Soft, Other (PEG in place) Edema: No Labs: CBC, BMP 02/11/19 06:40 02/11/19 06:40 INR, PTT INR 1.28 (0.83-1.09) H 02/09/19 20:50 - ....Imaging Chest X-ray: Report Reviewed (Resolving LLL PNA) EKG: Report Reviewed (Tele: Afib with occ PVC) Problem List - Problems (1) Anemia Code(s): D64.9 - ANEMIA, UNSPECIFIED Qualifiers: Anemia type: unspecified type Qualified Code(s): D64.9 - Anemia, unspecified (2) CHF exacerbation Code(s): I50.9 - HEART FAILURE, UNSPECIFIED Qualifiers: Heart failure type: unspecified Qualified Code(s): I50.9 - Heart failure, unspecified (3) Sepsis Code(s): A41.9 - SEPSIS, UNSPECIFIED ORGANISM Qualifiers: Sepsis type: sepsis due to unspecified organism Sepsis acute organ dysfunction status: without acute organ dysfunction Qualified Code(s): A41.9 - Sepsis, unspecified organism (4) Stage 4 skin ulcer of sacral region Code(s): L98.429 - NON-PRESSURE CHRONIC ULCER OF BACK WITH UNSPECIFIED SEVERITY (5) UTI (urinary tract infection) Code(s): N39.0 - URINARY TRACT INFECTION, SITE NOT SPECIFIED Qualifiers: Urinary tract infection type: catheter-associated UTI Indwelling urinary catheter type: unspecified Encounter type: initial encounter Qualified Code( s): T83.511A - Infection and inflammatory reaction due to indwelling urethral catheter, initial encounter; N39.0 - Urinary tract infection, site not specified (6) A-fib Code(s): I48.91 - UNSPECIFIED ATRIAL FIBRILLATION Qualifiers: Atrial fibrillation type: persistent (7) Angiodysplasia of colon with hemorrhage Code(s): K55.21 - ANGIODYSPLASIA OF COLON WITH HEMORRHAGE (8) CAD (coronary artery disease) Code(s): I25.10 - ATHSCL HEART DISEASE OF [place] CORONARY ARTERY W/O ANG PCTRS Qualifiers: Coronary Disease-Associated Artery/Lesion type: [place] artery [place] vs. transplanted heart: [place] heart Associated angina: without angina Qualified Code(s): I25.10 - Atherosclerotic heart disease of [place] coronary artery without angina pectoris (9) CKD (chronic kidney disease) Code(s): N18.9 - CHRONIC KIDNEY DISEASE, UNSPECIFIED Qualifiers: Chronic kidney disease stage: stage 2 (mild) Qualified Code(s): N18.2 - Chronic kidney disease, stage 2 (mild) (10) CVA (cerebral vascular accident) Code(s): I63.9 - CEREBRAL INFARCTION, UNSPECIFIED Qualifiers: CVA mechanism: embolism (11) Diabetes mellitus Code(s): E11.9 - TYPE 2 DIABETES MELLITUS WITHOUT COMPLICATIONS Qualifiers: Diabetes mellitus type: type 2 (12) GIB (gastrointestinal bleeding) Code(s): K92.2 - GASTROINTESTINAL HEMORRHAGE, UNSPECIFIED Qualifiers: GI bleed type/associated pathology: unspecified gastrointestinal hemorrhage type Qualified Code(s): K92.2 - Gastrointestinal hemorrhage, unspecified (13) Hemoglobin decreased Code(s): R71.0 - PRECIPITOUS DROP IN HEMATOCRIT (14) Hypernatremia Code(s): E87.0 - HYPEROSMOLALITY AND HYPERNATREMIA (15) Diabetes mellitus Code(s): E11.9 - TYPE 2 DIABETES MELLITUS WITHOUT COMPLICATIONS Qualifiers: Diabetes mellitus type: type 2 Diabetes mellitus snf insulin use: without terminologist use Diabetes mellitus complication status: without complication Qualified Code(s): E11.9 - Type 2 diabetes mellitus without complications (16) H/O mitral valve replacement Code(s): Z95.2 - PRESENCE OF PROSTHETIC HEART VALVE (17) HTN (hypertension) Code(s): I10 - ESSENTIAL (PRIMARY) HYPERTENSION Qualifiers: Hypertension type: essential hypertension Qualified Code(s): I10 - Essential (primary) hypertension (18) Hyperlipidemia Code(s): E78.5 - HYPERLIPIDEMIA, UNSPECIFIED Qualifiers: Hyperlipidemia type: pure hypercholesterolemia Qualified Code(s): E78.00 - Pure hypercholesterolemia, unspecified; E78.0 - Pure hypercholesterolemia (19) Pacemaker Code(s): Z95.0 - PRESENCE OF CARDIAC PACEMAKER Assessment/Plan 04/30/2018 Echo: Normal LV size and fxn, severe TR RVSP 50-60 mmHg, mild MR EGD and colonoscopy in 07/2017 revealing gastritis, cecal AVM and four tubular adenomas 12/17/2016 reveal: 03/2009 acute systolic CHF and VT, R&LHc 90% distal OM1, 60% D1, preserved LV fxn, elevated LVEDP [place]UL[place] severe posterior leaflet prolapse with severe MR->MV annuloplasty repair, afib, sinus arrest->PPM, CAD left alone. [facility] Echo: 06/28/16 normal biventricular fxn, COSMO, mod TR, MV ring Nuc stress 09/13/2016 Anterolateral ischemia/infarct SDS 3 EF 82%, abnl ecg changes 1. Acute on chronic diastolic heart failure 2. Chronic respiratory failure s/p trach and PEG 2. Coronary artery disease demand ischemic injury angina pectoris 3. Permanent atrial fibrillation [id number] score of 9, on anticoagulation therapy now off Eliquis 4. Sick sinus syndrome post permanent pacemaker implantation 5. Post mitral valve repair 6. UTI, r/o stage IV sacral decubitus ulcer Infection 6. HTN 7. DM 8. Hypercholesterolemia 9. 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 COPD 11. CKD with hypernatremia 12. Anemia post transfusion, suspect component of chronic blood loss from underlying avms based on prior endoscopic findings PLAN: 1. Continue antibiotics per C&S 2. Monitor Hgb post transfusion and resume Eliquis 5 bid once hemostasis assured and able to undergo endoscopic evaluation with possible therapeutic intent after optimization from a cardiorespiratory standpoint and electrolytes normalized 3. IV diuresis as needed with monitor diuretic response, renal fxn and electrolytes, increase free water repletion and replete K 4. Continue Lipitor 80 qhs, Lopressor 75 tid, and Ranexa 500 bid. Lisinopril 10 qd held for now 5. Enteral feeds 6. Wound care, change DVT prophylaxis to full dose Lovenox pending endoscopic evaluation
[2019-02-12 09:34] LABS: BASO % 0.5 % (0-2.0); EOS % 2.3 % (0-4.5); HEMATOCRIT 27.4 % (32.4-45.2); HEMOGLOBIN 8.5 GM/dL (10.7-15.3); LYMPH % 11.1 % (8-40); MCH 26.3 pg (25.7-33.7); MCHC 30.9 g/dl (32.0-36.0); MEAN CELL VOLUME 85.3 fl (80-96); MONO % 3.6 % (3.8-10.2); NEUT % 82.5 % (42.8-82.8); PLATELET COUNT 400 K/MM3 (134-434); RBC 3.21 M/mm3 (3.60-5.2); RDW 20.1 % (11.6-15.6)
[2019-02-12 09:57] LABS: ALBUMIN 1.2 g/dl (3.4-5.0); BILIRUBIN,TOTAL 0.4 mg/dL (0.2-1); BLOOD UREA NITROGEN 33.1 mg/dL (7-18); CALCIUM 8.1 mg/dL (8.5-10.1); CREATININE 0.8 mg/dL (0.55-1.3); MAGNESIUM 2.5 mg/dL (1.8-2.4); PHOSPHOROUS 3.8 mg/dL (2.5-4.9); POTASSIUM 3.9 mmol/L (3.5-5.1)
--- NOTE | 2019-02-12 09:58 | PN ---
Progress Note, Physician Chief Complaint: IN ICU ON VENT SUPPORT AWAKE ANXIOUS EVENTS AND NOTES REVIEWED - Current Medication List Current Medications: Active Medications Heparin Sodium (Porcine) (Heparin -) 5,000 unit SQ BID [facility] Last Admin: 02/11/19 21:20 Dose: 5,000 unit Piperacillin Sod/Tazobactam (Sod 3.375 gm/ Dextrose) 50 mls @ 100 mls/hr IVPB Q8H-IV [facility]; Protocol Last Admin: 02/12/19 01:34 Dose: 100 mls/hr Dextrose (D5w -) 1,000 mls @ 100 mls/hr IV .Q10H [facility] Insulin Aspart (Novolog Vial Sliding Scale -) 1 vial SQ ACHS [facility]; Protocol Last Admin: 02/12/19 07:50 Dose: 6 units Metoprolol Tartrate (Lopressor Injection -) 5 mg IVPUSH Q4H PRN PRN Reason: TACHYCARDIA Last Admin: 02/11/19 10:03 Dose: 5 mg Metoprolol Tartrate (Lopressor -) 75 mg PO TID [facility] Last Admin: 02/12/19 06:32 Dose: 75 mg Pantoprazole Sodium (Protonix -) 40 mg PO DAILY [facility] Ranolazine (Ranexa -) 500 mg PO BID [facility] Last Admin: 02/11/19 21:21 Dose: 500 mg - Objective Vital Signs: Vital Signs Temperature 98.1 F 02/12/19 06:00 Pulse Rate 88 02/12/19 08:22 Respiratory Rate 18 02/12/19 08:22 Blood Pressure 99/43 L 02/12/19 08:00 O2 Sat by Pulse Oximetry (%) 99 02/12/19 08:22 Constitutional: Yes: Mild Distress Cardiovascular: Yes: Tachycardia, Pulse Irregular Respiratory: Yes: Diminished, Mechanically Ventilated Gastrointestinal: Yes: Soft Genitourinary: Yes: Incontinence Integumentary: Yes: Pressure Ulcer (SACRAL) Labs: CBC, BMP 02/12/19 08:48 02/12/19 08:48 INR, PTT INR 1.28 (0.83-1.09) H 02/09/19 20:50 Problem List - Problems (1) Sacral decubitus ulcer Code(s): L89.159 - PRESSURE ULCER OF SACRAL REGION, UNSPECIFIED STAGE (2) Anemia Code(s): D64.9 - ANEMIA, UNSPECIFIED Qualifiers: Anemia type: unspecified type Qualified Code(s): D64.9 - Anemia, unspecified (3) CHF exacerbation Code(s): I50.9 - HEART FAILURE, UNSPECIFIED Qualifiers: Heart failure type: unspecified Qualified Code(s): I50.9 - Heart failure, unspecified (4) Sepsis Code(s): A41.9 - SEPSIS, UNSPECIFIED ORGANISM Qualifiers: Sepsis type: sepsis due to unspecified organism Sepsis acute organ dysfunction status: without acute organ dysfunction Qualified Code(s): A41.9 - Sepsis, unspecified organism (5) Stage 4 skin ulcer of sacral region Code(s): L98.429 - NON-PRESSURE CHRONIC ULCER OF BACK WITH UNSPECIFIED SEVERITY (6) A-fib Code(s): I48.91 - UNSPECIFIED ATRIAL FIBRILLATION Qualifiers: Atrial fibrillation type: persistent (7) CAD (coronary artery disease) Code(s): I25.10 - ATHSCL HEART DISEASE OF [place] CORONARY ARTERY W/O ANG PCTRS Qualifiers: Coronary Disease-Associated Artery/Lesion type: [place] artery [place] vs. transplanted heart: [place] heart Associated angina: without angina Qualified Code(s): I25.10 - Atherosclerotic heart disease of [place] coronary artery without angina pectoris (8) CKD (chronic kidney disease) Code(s): N18.9 - CHRONIC KIDNEY DISEASE, UNSPECIFIED Qualifiers: Chronic kidney disease stage: stage 2 (mild) Qualified Code(s): N18.2 - Chronic kidney disease, stage 2 (mild) (9) Diabetes mellitus Code(s): E11.9 - TYPE 2 DIABETES MELLITUS WITHOUT COMPLICATIONS Qualifiers: Diabetes mellitus type: type 2 Assessment/Plan VENT SUPPORT IN ICU CARDIO/PULMONARY CONSULT APPRECIATED SACRAL WOUND CARE SURGICAL EVAL OFFLOAD/PRESSURE CARE TO DECUBITI ORDERED IV ABX RENAL EVAL
[2019-02-12] MEDS ORDERED: FUROSEMIDE 40 MG/4 ML INJECTABLE VIAL IVPUSH ONE (09:59)
--- NOTE | 2019-02-12 10:54 | PN ---
Progress Note, Physician History of Present Illness: AWAKE ON VENT NO ACUTE DISTRESS TEMPS DOWN AFEBRILE URINE C/S CRE SACRAL WOUND C/S POLYMICROBIAL, INCLUDING CRE WBC IMPROVED - Current Medication List Current Medications: Active Medications Furosemide (Lasix Injection -) 40 mg IVPUSH BID@0600,1400 [facility] Heparin Sodium (Porcine) (Heparin -) 5,000 unit SQ BID [facility] Last Admin: 02/11/19 21:20 Dose: 5,000 unit Dextrose (D5w -) 1,000 mls @ 100 mls/hr IV .Q10H [facility] Insulin Aspart (Novolog Vial Sliding Scale -) 1 vial SQ ACHS [facility]; Protocol Last Admin: 02/12/19 07:50 Dose: 6 units Metoprolol Tartrate (Lopressor Injection -) 5 mg IVPUSH Q4H PRN PRN Reason: TACHYCARDIA Last Admin: 02/11/19 10:03 Dose: 5 mg Metoprolol Tartrate (Lopressor -) 75 mg PO TID [facility] Last Admin: 02/12/19 06:32 Dose: 75 mg Pantoprazole Sodium (Protonix -) 40 mg PO DAILY [facility] Ranolazine (Ranexa -) 500 mg PO BID [facility] Last Admin: 02/11/19 21:21 Dose: 500 mg - Objective Vital Signs: Vital Signs Temperature 97.8 F 02/12/19 10:00 Pulse Rate 76 02/12/19 10:00 Respiratory Rate 23 H 02/12/19 10:00 Blood Pressure 86/57 L 02/12/19 10:00 O2 Sat by Pulse Oximetry (%) 99 02/12/19 08:22 Constitutional: Yes: No Distress Eyes: Yes: Conjunctiva Clear Cardiovascular: Yes: Regular Rate and Rhythm, S1, S2 Respiratory: Yes: Mechanically Ventilated Gastrointestinal: Yes: Normal Bowel Sounds, Soft. No: Tenderness Labs: CBC, BMP 02/12/19 08:48 02/12/19 08:48 INR, PTT INR 1.28 (0.83-1.09) H 02/09/19 20:50 Assessment/Plan UTI R/O SEPSIS SECONDARY TO UTI STAGE IV SACRAL DECUBITUS LEUKOCYTOSIS CHRONIC RESPIRATORY FAILURE SUBSTITUTE AVYCAZ CONTACT PRECAUTIONS
--- NOTE | 2019-02-12 11:28 | PN ---
Teaching Attending Note Name of Resident: Valeriy Downey ATTENDING PHYSICIAN STATEMENT I saw and evaluated the patient. I reviewed the resident's note and discussed the case with the resident. I agree with the resident's findings and plan as documented. SUBJECTIVE: Pt seen and examined in the ICU. More tachypneic today. Vented, awake. No fevers recorded. Sacral ulcer growing CRE. OBJECTIVE: Vital Signs Period Temp Pulse Resp BP Sys/[place] Pulse Ox Last 24 Hr 97.8 F-98.7 F 76-110 18-23 86-114/43-67 99-100 Intake & Output 02/09/19 02/10/19 02/11/19 02/12/19 23:59 23:59 23:59 23:59 Intake Total 900 1985 910 Output Total 1550 1025 300 Balance -650 960 610 Weight 81.647 kg 67.132 kg 68.039 kg 68.084 kg Gen: vented, tachypneic Heart: irregular Lung: scattered rhonchi Abd: soft, nontender Ext: + edema CBC, BMP 02/12/19 08:48 02/12/19 08:48 Active Medications Enoxaparin Sodium (Lovenox -) 70 mg SQ BID [facility] Furosemide (Lasix Injection -) 40 mg IVPUSH BID@0600,1400 [facility] Dextrose (D5w -) 1,000 mls @ 100 mls/hr IV .Q10H [facility] Ceftazidime/Avibactam 2.5 gm/ (Dextrose) 250 mls @ 125 mls/hr IVPB Q8H-IV [facility]; Protocol Insulin Aspart (Novolog Vial Sliding Scale -) 1 vial SQ ACHS [facility]; Protocol Last Admin: 02/12/19 07:50 Dose: 6 units Metoprolol Tartrate (Lopressor Injection -) 5 mg IVPUSH Q4H PRN PRN Reason: TACHYCARDIA Last Admin: 02/11/19 10:03 Dose: 5 mg Metoprolol Tartrate (Lopressor -) 75 mg PO TID [facility] Last Admin: 02/12/19 06:32 Dose: 75 mg Pantoprazole Sodium (Protonix -) 40 mg PO DAILY [facility] Ranolazine (Ranexa -) 500 mg PO BID [facility] Last Admin: 02/11/19 21:21 Dose: 500 mg ASSESSMENT AND PLAN: UTI r/o Sacral Decubitus Ulcer Infection Sepsis Volume Overload Acute on Chronic Diastolic Heart Failure Chronic Respiratory Failure h/o CVA COPD Atrial Fibrillation h/o GI Bleed HTN DM Anemia - continue antibiotics per ID - rate controlled - resume anticoagulation - monitor H/H - increase free water - lasix - monitor urine output, creatinine - advance enteral feeds - taper FiO2 to keep SpO2 >90% - DVT/GI prophylaxis - can monitor on vent floor
[2019-02-12] MEDS: FUROSEMIDE 40 MG/4 ML INJECTABLE VIAL IVPUSH SCH ×2 (12:06→16:02)
[2019-02-12] MEDS: ENOXAPARIN NA (PORCINE) 80 MG/0.8 ML DISP.SYRIN SQ SCH ×2 (12:06→22:12)
[2019-02-12] MEDS: RANOLAZINE E.R. 500 MG TABLET (FP) PO SCH ×2 (12:06→22:18)
[2019-02-12] MEDS: PANTOPRAZOLE 40 MG TABLET (FP) PO SCH (12:06)
[2019-02-12] MEDS: CEFTAZIDIME/AVIBACTAM 2.5 GM in DEXTROSE 5%-WATER - 250 ML IVPB SCH ×2 (12:32→18:00)
--- NOTE | 2019-02-12 13:25 | PN ---
Progress Note (short form) - Note Progress Note: Renal follow up for hypernatremia Seen and examined at the bedside awake on vent no overnight events making urine Vital Signs Temperature 97.8 F 02/12/19 10:00 Pulse Rate 76 02/12/19 10:00 Respiratory Rate 22 H 02/12/19 12:29 Blood Pressure 86/57 L 02/12/19 10:00 O2 Sat by Pulse Oximetry (%) 99 02/12/19 08:22 Intake & Output 02/09/19 02/10/19 02/11/19 02/12/19 23:59 23:59 23:59 23:59 Intake Total 900 1985 910 Output Total 1550 1025 300 Balance -650 960 610 Weight 81.647 kg 67.132 kg 68.039 kg 68.084 kg awake on vent, non-verbal Dec BS bilateral lung bases soft NT/ND NO LE edema, clubbing or cyanosis craven in place CBC, BMP 02/12/19 08:48 02/12/19 08:48 Current Medications Enoxaparin Sodium (Lovenox -) 70 mg SQ BID [facility] Last Admin: 02/12/19 12:06 Dose: 70 mg Furosemide (Lasix Injection -) 40 mg IVPUSH BID@0600,1400 [facility] Last Admin: 02/12/19 12:06 Dose: 40 mg Dextrose (D5w -) 1,000 mls @ 100 mls/hr IV .Q10H [facility] Ceftazidime/Avibactam 2.5 gm/ (Dextrose) 250 mls @ 125 mls/hr IVPB Q8H-IV [facility]; Protocol Last Admin: 02/12/19 12:32 Dose: 125 mls/hr Insulin Aspart (Novolog Vial Sliding Scale -) 1 vial SQ ACHS [facility]; Protocol Last Admin: 02/12/19 12:32 Dose: 4 units Metoprolol Tartrate (Lopressor Injection -) 5 mg IVPUSH Q4H PRN PRN Reason: TACHYCARDIA Last Admin: 02/11/19 10:03 Dose: 5 mg Metoprolol Tartrate (Lopressor -) 75 mg PO TID [facility] Last Admin: 02/12/19 06:32 Dose: 75 mg Pantoprazole Sodium (Protonix -) 40 mg PO DAILY [facility] Last Admin: 02/12/19 12:06 Dose: 40 mg Ranolazine (Ranexa -) 500 mg PO BID [facility] Last Admin: 02/12/19 12:06 Dose: 500 mg 78 year old woman with history of recent CVA (now non-verbal), Afib on A/C, DM, Hypertension, COPD, CAD who presented from [place] with hypotension and fevers and noted to have hypernatremia. 1. Hypernatremia 2. Fever/Sepsis 3. Recent CVA 4. Anemia 5. Suspected metabolic alkalosis 6. Leukocytosis 7. Pleural effusions/CHF with preserved LVEF (ECHO 04/2018) Serum Na improving, continue D5W Can increase free water via GT as well Continue vent support as per ICU can give additional IV Lasix as needed for pleural effusions Continue tube feeds Continue antibiotics as per ICU trend H/H ICU monitoring Thank you Tashi Aguirre DO
[2019-02-12] MEDS ORDERED: FUROSEMIDE 40 MG/4 ML INJECTABLE VIAL IVPUSH SCH (14:00)
[2019-02-12] MEDS ORDERED: PT OWN MED DRAWER 7, Y5N ONE ×2 (17:54→21:54)
[2019-02-12] MEDS ORDERED: CEFTAZIDIME/AVIBACTAM 2.5 GM in DEXTROSE 5%-WATER - 250 ML IVPB SCH (18:00)
[2019-02-12] MEDS ORDERED: INSULIN (NOVOLOG) ASPART 100 UNITS/ML 10ML VIAL ONE (18:08)
--- NOTE | 2019-02-12 18:14 | PN.GI ---
GI Progress Note Subjective: No acute events No overt bleeding present at bedside - Objective Vital Signs: Vital Signs Temperature 98.2 F 02/12/19 16:00 Pulse Rate 80 02/12/19 16:00 Respiratory Rate 20 02/12/19 16:29 Blood Pressure 100/47 L 02/12/19 16:00 O2 Sat by Pulse Oximetry (%) 99 02/12/19 08:22 Constitutional: Calm Eyes: No: Sclera Icterus Cardiovascular: Yes: Pulse Irregular Labs: CBC, BMP 02/12/19 08:48 02/12/19 08:48 INR, PTT INR 1.28 (0.83-1.09) H 02/09/19 20:50 Problem List - Problems (1) Anemia Assessment/Plan: 78yo female h/o CVA, respiratory failure s/p trach, PEG, A fib on eliquis ( currently on hold), sick sinus syndrome s/p PPM and COPD [facility] with fever and hypotension with anemia. No overt bleeding. Multifactorial etiology of anemia with suspected component of chronic blood loss from underlying avms based on prior endoscopic findings. Continue to monitor Hb and for evidence of bleeding PPI daily Repeat iron studies/ferritin on pretransfusion labs if possible No urgency for endoscopy in absence of overt bleeding however as pt is to resume a/c, endoscopic evaluation could be considered with possible therapeutic intent once further optimized from a cardiorespiratory standpoint and electrolytes normalized Code(s): D64.9 - ANEMIA, UNSPECIFIED Qualifiers: Anemia type: unspecified type Qualified Code(s): D64.9 - Anemia, unspecified
[2019-02-12] MEDS: HEPARIN NA (PORCINE) 5,000 UNITS/ML 1ML VIAL SQ SCH (22:35)
[2019-02-12] MEDS: METOPROLOL TARTRATE 50 MG TABLET (FP) PO SCH (22:35)
[2019-02-13] MEDS: METOPROLOL TARTRATE 25 MG TABLET (FP) PO SCH ×4 (01:27→22:19)
[2019-02-13] MEDS: CEFTAZIDIME/AVIBACTAM 2.5 GM in DEXTROSE 5%-WATER - 250 ML IVPB SCH ×3 (02:02→19:54)
[2019-02-13] MEDS: FUROSEMIDE 40 MG/4 ML INJECTABLE VIAL IVPUSH SCH ×2 (05:54→14:06)
[2019-02-13] MEDS: INSULIN SLIDING SCALE (NOVOLOG) 1 VIAL SQ SCH ×5 (05:59→22:44)
[2019-02-13 06:45] LABS: HEMATOCRIT 26.2 % (32.4-45.2); HEMOGLOBIN 8.4 GM/dL (10.7-15.3); MCH 26.9 pg (25.7-33.7); MCHC 31.9 g/dl (32.0-36.0); MEAN CELL VOLUME 84.4 fl (80-96); MEAN PLT VOLUME 9.5 fl (7.5-11.1); PLATELET COUNT 417 K/MM3 (134-434); RBC 3.11 M/mm3 (3.60-5.2); RDW 20.6 % (11.6-15.6); WHITE BLOOD COUNT 15.9 K/mm3 (4.0-10.0)
[2019-02-13] MEDS: DEXTROSE 5%-WATER - 1,000 ML IV SCH (07:00)
[2019-02-13 07:30] LABS: ALBUMIN 1.2 g/dl (3.4-5.0); BILIRUBIN,TOTAL 0.4 mg/dL (0.2-1); BLOOD UREA NITROGEN 29.9 mg/dL (7-18); CALCIUM 7.9 mg/dL (8.5-10.1); CREATININE 0.9 mg/dL (0.55-1.3); MAGNESIUM 2.3 mg/dL (1.8-2.4); PHOSPHOROUS 2.9 mg/dL (2.5-4.9); POTASSIUM 3.2 mmol/L (3.5-5.1); TOT PROT 5.1 g/dl (6.4-8.2)
[2019-02-13] MEDS: KCL 10 MEQ IVPB 10 MEQ/100 ML INFUS.BAG IVPB SCH ×2 (09:21→11:00)
[2019-02-13] MEDS: ENOXAPARIN NA (PORCINE) 80 MG/0.8 ML DISP.SYRIN SQ SCH ×2 (09:26→22:19)
[2019-02-13] MEDS: RANOLAZINE E.R. 500 MG TABLET (FP) PO SCH (09:27)
[2019-02-13] MEDS: PANTOPRAZOLE 40 MG TABLET (FP) PO SCH (09:28)
--- NOTE | 2019-02-13 09:44 | PN ---
Teaching Attending Note Name of Resident: Valeriy Downey ATTENDING PHYSICIAN STATEMENT I saw and evaluated the patient. I reviewed the resident's note and discussed the case with the resident. I agree with the resident's findings and plan as documented. SUBJECTIVE: Patient seen and examined in the ICU. Awake on AC Mode of vent. Able to track, responsive. No acute events overnight. Intake & Output 02/10/19 02/11/19 02/12/19 02/13/19 23:59 23:59 23:59 23:59 Intake Total 900 1985 3470 1972 Output Total 1550 1025 550 600 Balance -569 126 4841 1372 Weight 148 lb 150 lb 150 lb 1.6 oz 153 lb 8 oz Last Vital Signs Temp Pulse Resp BP Pulse Ox 98.9 F 66 28 H 115/57 L 100 02/13/19 06:00 02/13/19 08:00 02/13/19 08:00 02/13/19 08:00 02/13/19 08:00 Active Medications Enoxaparin Sodium (Lovenox -) 70 mg SQ BID [facility] Last Admin: 02/13/19 09:26 Dose: 70 mg Furosemide (Lasix Injection -) 40 mg IVPUSH BID@0600,1400 [facility] Last Admin: 02/13/19 05:54 Dose: 40 mg Ceftazidime/Avibactam 2.5 gm/ (Dextrose) 250 mls @ 125 mls/hr IVPB Q8H-IV [facility]; Protocol Last Admin: 02/13/19 09:24 Dose: 125 mls/hr Dextrose (D5w -) 1,000 mls @ 42 mls/hr IV ASDIR [facility] Last Admin: 02/13/19 07:00 Dose: 42 mls/hr Potassium Chloride (Potassium Chloride 10 Meq Premix Ivpb -) 10 meq in 100 mls @ 100 mls/hr IVPB Q60M [facility] Stop: 02/13/19 09:59 Last Admin: 02/13/19 09:21 Dose: 100 mls/hr Insulin Aspart (Novolog Vial Sliding Scale -) 1 vial SQ ACHS [facility]; Protocol Last Admin: 02/13/19 05:59 Dose: 8 units Metoprolol Tartrate (Lopressor Injection -) 5 mg IVPUSH Q4H PRN PRN Reason: TACHYCARDIA Last Admin: 02/11/19 10:03 Dose: 5 mg Metoprolol Tartrate (Lopressor -) 75 mg PO TID [facility] Last Admin: 02/13/19 05:38 Dose: 75 mg Pantoprazole Sodium (Protonix -) 40 mg PO DAILY [facility] Last Admin: 02/13/19 09:28 Dose: Not Given Ranolazine (Ranexa -) 500 mg PO BID [facility] Last Admin: 02/13/19 09:27 Dose: Not Given Gen: Awake, vented, NAD Heart: irregular Lung: Vented, scattered rhonchi, no wheeze Abd: soft, nontender Ext: + edema Laboratory Results - last 24 hr 02/09/19 02/12/19 02/12/19 22:19 08:48 12:18 WBC RBC Hgb Hct MCV MCH MCHC RDW Plt Count MPV Sodium 152 H Potassium 3.9 Chloride 114 H Carbon Dioxide 31 Anion Gap 7 L BUN 33.1 H Creatinine 0.8 Est GFR (CKD-EPI)AfAm 83.00 Est GFR (CKD-EPI)NonAf 71.61 POC Glucometer 259 Random Glucose 317 H Calcium 8.1 L Phosphorus 3.8 Magnesium 2.5 H Total Bilirubin 0.4 AST 21 ALT 20 Alkaline Phosphatase 161 H Total Protein 5.0 L Albumin 1.2 L Blood Type O POSITIVE Antibody Screen Negative Crossmatch See Detail 02/12/19 02/12/19 02/13/19 18:03 22:09 05:44 WBC RBC Hgb Hct MCV MCH MCHC RDW Plt Count MPV Sodium Potassium Chloride Carbon Dioxide Anion Gap BUN Creatinine Est GFR (CKD-EPI)AfAm Est GFR (CKD-EPI)NonAf POC Glucometer 329 252 332 Random Glucose Calcium Phosphorus Magnesium Total Bilirubin AST ALT Alkaline Phosphatase Total Protein Albumin Blood Type Antibody Screen Crossmatch 02/13/19 02/13/19 06:20 06:20 WBC 15.9 H RBC 3.11 L Hgb 8.4 L Hct 26.2 L MCV 84.4 MCH 26.9 MCHC 31.9 L RDW 20.6 H Plt Count 417 MPV 9.5 Sodium 146 H Potassium 3.2 L Chloride 109 H Carbon Dioxide 31 Anion Gap 7 L BUN 29.9 H Creatinine 0.9 Est GFR (CKD-EPI)AfAm 71.98 Est GFR (CKD-EPI)NonAf 62.11 POC Glucometer Random Glucose 346 H Calcium 7.9 L Phosphorus 2.9 Magnesium 2.3 Total Bilirubin 0.4 AST 20 ALT 24 Alkaline Phosphatase 214 H Total Protein 5.1 L Albumin 1.2 L Blood Type Antibody Screen Crossmatch ASSESSMENT AND PLAN: UTI Sacral Decubitus Ulcer Infection Sepsis Volume Overload Acute on Chronic Diastolic Heart Failure Chronic Respiratory Failure h/o CVA COPD Atrial Fibrillation h/o GI Bleed HTN DM Anemia - continue antibiotics per ID - rate controlled - resume anticoagulation - monitor H/H - increase free water - Minimize IVF - Lasix - monitor urine output, creatinine - Enteral feeds - taper FiO2 to keep SpO2 >90% - DVT/GI prophylaxis - Vent floor monitoring Dr Stover
--- NOTE | 2019-02-13 09:52 | PN ---
Physical Exam: SUBJECTIVE: Patient seen and examined. Unable to talk due to trach. Tracks movement and alert. Patient had a bed and was supposed to be sent to vent floor yesterday but was kept in ICU due to objections by the who was present. OBJECTIVE: Vital Signs Period Temp Pulse Resp BP Sys/[place] Pulse Ox Last 24 Hr 97.8 F-98.9 F 66-98 18-28 86-115/47-77 100-100 GENERAL: The patient is awake, alert, tracks movement. HEAD: NC/AT EYES: EOMI ENT: dry mucous membranes NECK: tracheostomy in place, midline LUNGS: diminished breath sounds bilaterally, no wheezes, no crackles, no accessory muscle use. HEART: RRR, no murmur heard ABDOMEN: Soft, nontender, nondistended, normoactive bowel sounds, no guarding EXTREMITIES: 2+ pulses, warm. edema of lower extremities improved, +edema of bilateral upper extremities still. NEUROLOGICAL: alert, tracks movement in room SKIN: Warm, dry. Stage 4 sacral ulcer Laboratory Results - last 24 hr 02/09/19 02/12/19 02/12/19 22:19 08:48 12:18 WBC RBC Hgb Hct MCV MCH MCHC RDW Plt Count MPV Sodium 152 H Potassium 3.9 Chloride 114 H Carbon Dioxide 31 Anion Gap 7 L BUN 33.1 H Creatinine 0.8 Est GFR (CKD-EPI)AfAm 83.00 Est GFR (CKD-EPI)NonAf 71.61 POC Glucometer 259 Random Glucose 317 H Calcium 8.1 L Phosphorus 3.8 Magnesium 2.5 H Total Bilirubin 0.4 AST 21 ALT 20 Alkaline Phosphatase 161 H Total Protein 5.0 L Albumin 1.2 L Blood Type O POSITIVE Antibody Screen Negative Crossmatch See Detail 02/12/19 02/12/19 02/13/19 18:03 22:09 05:44 WBC RBC Hgb Hct MCV MCH MCHC RDW Plt Count MPV Sodium Potassium Chloride Carbon Dioxide Anion Gap BUN Creatinine Est GFR (CKD-EPI)AfAm Est GFR (CKD-EPI)NonAf POC Glucometer 329 252 332 Random Glucose Calcium Phosphorus Magnesium Total Bilirubin AST ALT Alkaline Phosphatase Total Protein Albumin Blood Type Antibody Screen Crossmatch 02/13/19 02/13/19 06:20 06:20 WBC 15.9 H RBC 3.11 L Hgb 8.4 L Hct 26.2 L MCV 84.4 MCH 26.9 MCHC 31.9 L RDW 20.6 H Plt Count 417 MPV 9.5 Sodium 146 H Potassium 3.2 L Chloride 109 H Carbon Dioxide 31 Anion Gap 7 L BUN 29.9 H Creatinine 0.9 Est GFR (CKD-EPI)AfAm 71.98 Est GFR (CKD-EPI)NonAf 62.11 POC Glucometer Random Glucose 346 H Calcium 7.9 L Phosphorus 2.9 Magnesium 2.3 Total Bilirubin 0.4 AST 20 ALT 24 Alkaline Phosphatase 214 H Total Protein 5.1 L Albumin 1.2 L Blood Type Antibody Screen Crossmatch Active Medications Generic Name Dose Route Start Last Admin Trade Name Freq PRN Reason Stop Dose Admin Enoxaparin Sodium 70 mg 02/12/19 11:00 02/13/19 09:26 Lovenox - SQ 70 mg BID [facility] Administration Furosemide 40 mg 02/12/19 10:00 02/13/19 05:54 Lasix Injection - IVPUSH 40 mg BID@0600,1400 [facility] Administration Ceftazidime/Avibactam 2.5 gm/ 250 mls @ 125 mls/hr 02/12/19 11:45 02/13/19 09 :24 Dextrose IVPB 125 mls/hr Q8H-IV [facility] Administration Protocol Dextrose 1,000 mls @ 42 mls/hr 02/13/19 06:02 02/13/19 07:00 D5w - IV 42 mls/hr ASDIR [facility] Administration Potassium Chloride 10 meq in 100 mls @ 100 mls/hr 02/13/19 08:00 02/13/19 09: 21 Potassium Chloride 10 Meq Premix Ivpb - IVPB 02/13/19 09:59 100 mls/hr Q60M [facility] Administration Insulin Aspart 1 vial 02/10/19 11:00 02/13/19 05:59 Novolog Vial Sliding Scale - SQ 8 units ACHS [facility] Administration Protocol Metoprolol Tartrate 5 mg 02/11/19 08:19 02/11/19 10:03 Lopressor Injection - IVPUSH 5 mg Q4H PRN Administration TACHYCARDIA Metoprolol Tartrate 75 mg 02/12/19 06:30 02/13/19 05:38 Lopressor - PO 75 mg TID [facility] Administration Pantoprazole Sodium 40 mg 02/12/19 10:00 02/13/19 09:28 Protonix - PO Not Given DAILY [facility] Ranolazine 500 mg 02/11/19 22:00 02/13/19 09:27 Ranexa - PO Not Given BID [facility] ASSESSMENT/PLAN: 78 y/o/f w PMHx CAD, a fib on AC, DM, HTN, COPD, GI bleed, CVA (RUE/LE paralysis , non verbal), presenting from [facility] w/ hypotension, fevers. Found to be septic, with UTI on UA - presumed urosepsis, superimposed CHF exacerbation with elevated BNP and peripheral edema. #Neuro - Alert, awake, tracks movement in room - Hx of 2 strokes - Admission head CT without acute pathology, chronic infarcts of unknown age identified #Cardiovascular - Hx of HTN - Lopressor 5mg IV Q4hr PRN for hypertension - Lasix 40mg BID - Restarted home metoprolol TID #Pulm - hx COPD - Maintain SpO2 >90% - Patient with tracheostomy, adjust vent settings as appropriate - CXR with moderate bilateral pleural effusions with vascular congestive features, unchanged from prior study. #GI - Stool occult blood positive - Initial hgb 6.6, now 8.4. Stable - s/p 1 unit PRBC transfusion - Monitor H&H, transfuse as needed - advanced tube feeds to goal - Appreciate GI recs - As per GI - No urgency for endoscopy in absence of overt bleeding however as pt is to resume a/c would recommend endoscopic evaluation with possible therapeutic intent once further optimized from a cardiorespiratory standpoint and electrolytes normalized #Renal - Trend BUN/Cr. Renal function improving compared to initial labs. - Maintain craven #Endo - Hx DM - ISS - BGMs #ID - WBC 15.9, febrile on admission, now afebrile. monitor - Sepsis 2/2 UTI vs. PNA vs. Sacral would source - Wound and urine cultures growing carbapenem resistant organisms, abx as per ID - Blood cx negative to date - ID on board, appreciate recs - Starting Avycaz - Wound care consulted - recommend packing wound with moist kerlix and applying OPTIfoam dressing, no surgical intervention at this time. - Isolation precautions due to CRE organisms in wound and urine #Prophylaxis - Started Lovenox 70mg BID, patient with history of multiple CVAs #FEN - D5W @42mls/hr - Increasing free water for hypernatremia - Monitor and replete lytes as needed #Disposition - Pending transfer to [facility] floor, stable Visit type - Emergency Visit Emergency Visit: Yes ED Registration Date: 02/09/19 Care time: The patient presented to the Emergency Department on the above date and was hospitalized for further evaluation of their emergent condition. - New Patient This patient is new to me today: No - Critical Care Critical Care patient: Yes Total Critical Care Time (in minutes): 36 Critical Care Statement: The care of this patient involved high complexity decision making to prevent further life threatening deterioration of the patient 's condition and/or to evaluate & treat vital organ system(s) failure or risk of failure. ATTENDING PHYSICIAN STATEMENT I saw and evaluated the patient. I reviewed the resident's note and discussed the case with the resident. I agree with the resident's findings and plan as documented. SUBJECTIVE: OBJECTIVE: ASSESSMENT AND PLAN:
--- NOTE | 2019-02-13 10:46 | PN ---
Progress Note, Physician History of Present Illness: Afebrile, hemodynamics stabilizing, remains in rate-controlled afib. - Current Medication List Current Medications: Active Medications Enoxaparin Sodium (Lovenox -) 70 mg SQ BID [facility] Last Admin: 02/13/19 09:26 Dose: 70 mg Furosemide (Lasix Injection -) 40 mg IVPUSH BID@0600,1400 [facility] Last Admin: 02/13/19 05:54 Dose: 40 mg Ceftazidime/Avibactam 2.5 gm/ (Dextrose) 250 mls @ 125 mls/hr IVPB Q8H-IV [facility]; Protocol Last Admin: 02/13/19 09:24 Dose: 125 mls/hr Dextrose (D5w -) 1,000 mls @ 42 mls/hr IV ASDIR [facility] Last Admin: 02/13/19 07:00 Dose: 42 mls/hr Insulin Aspart (Novolog Vial Sliding Scale -) 1 vial SQ ACHS [facility]; Protocol Last Admin: 02/13/19 05:59 Dose: 8 units Metoprolol Tartrate (Lopressor Injection -) 5 mg IVPUSH Q4H PRN PRN Reason: TACHYCARDIA Last Admin: 02/11/19 10:03 Dose: 5 mg Metoprolol Tartrate (Lopressor -) 75 mg PO TID [facility] Last Admin: 02/13/19 05:38 Dose: 75 mg Pantoprazole Sodium (Protonix -) 40 mg PO DAILY [facility] Last Admin: 02/13/19 09:28 Dose: Not Given Ranolazine (Ranexa -) 500 mg PO BID [facility] Last Admin: 02/13/19 09:27 Dose: Not Given - Objective Vital Signs: Vital Signs Temperature 98.5 F 02/13/19 10:00 Pulse Rate 73 02/13/19 10:00 Respiratory Rate 23 H 02/13/19 10:00 Blood Pressure 113/58 L 02/13/19 10:00 O2 Sat by Pulse Oximetry (%) 100 02/13/19 08:00 Constitutional: Yes: No Distress, Calm, Thin Neck: Yes: Supple, Other (Trach) Cardiovascular: Yes: Pulse Irregular Respiratory: Yes: Regular, Diminished, Mechanically Ventilated, Rhonchi Gastrointestinal: Yes: Normal Bowel Sounds, Soft, Other (PEG) Edema: Yes Edema: LLE: Trace, RLE: Trace Labs: CBC, BMP 02/13/19 06:20 02/13/19 06:20 INR, PTT INR 1.28 (0.83-1.09) H 02/09/19 20:50 - ....Imaging Chest X-ray: Report Reviewed (Moderate bilateral effusions with vascular congestion) EKG: Report Reviewed (Tele: Afib) Problem List - Problems (1) Anemia Code(s): D64.9 - ANEMIA, UNSPECIFIED Qualifiers: Anemia type: unspecified type Qualified Code(s): D64.9 - Anemia, unspecified (2) CHF exacerbation Code(s): I50.9 - HEART FAILURE, UNSPECIFIED Qualifiers: Heart failure type: unspecified Qualified Code(s): I50.9 - Heart failure, unspecified (3) Sepsis Code(s): A41.9 - SEPSIS, UNSPECIFIED ORGANISM Qualifiers: Sepsis type: sepsis due to unspecified organism Sepsis acute organ dysfunction status: without acute organ dysfunction Qualified Code(s): A41.9 - Sepsis, unspecified organism (4) Stage 4 skin ulcer of sacral region Code(s): L98.429 - NON-PRESSURE CHRONIC ULCER OF BACK WITH UNSPECIFIED SEVERITY (5) UTI (urinary tract infection) Code(s): N39.0 - URINARY TRACT INFECTION, SITE NOT SPECIFIED Qualifiers: Urinary tract infection type: catheter-associated UTI Indwelling urinary catheter type: unspecified Encounter type: initial encounter Qualified Code( s): T83.511A - Infection and inflammatory reaction due to indwelling urethral catheter, initial encounter; N39.0 - Urinary tract infection, site not specified (6) A-fib Code(s): I48.91 - UNSPECIFIED ATRIAL FIBRILLATION Qualifiers: Atrial fibrillation type: persistent (7) Angiodysplasia of colon with hemorrhage Code(s): K55.21 - ANGIODYSPLASIA OF COLON WITH HEMORRHAGE (8) CAD (coronary artery disease) Code(s): I25.10 - ATHSCL HEART DISEASE OF [place] CORONARY ARTERY W/O ANG PCTRS Qualifiers: Coronary Disease-Associated Artery/Lesion type: [place] artery [place] vs. transplanted heart: [place] heart Associated angina: without angina Qualified Code(s): I25.10 - Atherosclerotic heart disease of [place] coronary artery without angina pectoris (9) CKD (chronic kidney disease) Code(s): N18.9 - CHRONIC KIDNEY DISEASE, UNSPECIFIED Qualifiers: Chronic kidney disease stage: stage 2 (mild) Qualified Code(s): N18.2 - Chronic kidney disease, stage 2 (mild) (10) CVA (cerebral vascular accident) Code(s): I63.9 - CEREBRAL INFARCTION, UNSPECIFIED Qualifiers: CVA mechanism: embolism (11) Diabetes mellitus Code(s): E11.9 - TYPE 2 DIABETES MELLITUS WITHOUT COMPLICATIONS Qualifiers: Diabetes mellitus type: type 2 (12) GIB (gastrointestinal bleeding) Code(s): K92.2 - GASTROINTESTINAL HEMORRHAGE, UNSPECIFIED Qualifiers: GI bleed type/associated pathology: unspecified gastrointestinal hemorrhage type Qualified Code(s): K92.2 - Gastrointestinal hemorrhage, unspecified (13) Hemoglobin decreased Code(s): R71.0 - PRECIPITOUS DROP IN HEMATOCRIT (14) Hypernatremia Code(s): E87.0 - HYPEROSMOLALITY AND HYPERNATREMIA (15) Diabetes mellitus Code(s): E11.9 - TYPE 2 DIABETES MELLITUS WITHOUT COMPLICATIONS Qualifiers: Diabetes mellitus type: type 2 Diabetes mellitus intermediate insulin use: without intermediate use Diabetes mellitus complication status: without complication Qualified Code(s): E11.9 - Type 2 diabetes mellitus without complications (16) H/O mitral valve replacement Code(s): Z95.2 - PRESENCE OF PROSTHETIC HEART VALVE (17) HTN (hypertension) Code(s): I10 - ESSENTIAL (PRIMARY) HYPERTENSION Qualifiers: Hypertension type: essential hypertension Qualified Code(s): I10 - Essential (primary) hypertension (18) Hyperlipidemia Code(s): E78.5 - HYPERLIPIDEMIA, UNSPECIFIED Qualifiers: Hyperlipidemia type: pure hypercholesterolemia Qualified Code(s): E78.00 - Pure hypercholesterolemia, unspecified; E78.0 - Pure hypercholesterolemia (19) Pacemaker Code(s): Z95.0 - PRESENCE OF CARDIAC PACEMAKER Assessment/Plan 04/30/2018 Echo: Normal LV size and fxn, severe TR RVSP 50-60 mmHg, mild MR EGD and colonoscopy in 07/2017 revealing gastritis, cecal AVM and four tubular adenomas 12/17/2016 reveal: 03/2009 acute systolic CHF and CO, R&LHc 90% distal OM1, 60% D1, preserved LV fxn, elevated LVEDP BULMARO severe posterior leaflet prolapse with severe MR->MV annuloplasty repair, afib, sinus arrest->PPM, CAD left alone. [facility] Echo: 06/28/16 normal biventricular fxn, COSMO, mod TR, MV ring Nuc stress 09/13/2016 Anterolateral ischemia/infarct SDS 3 EF 82%, abnl ecg changes 1. Acute on chronic diastolic heart failure 2. Chronic respiratory failure s/p trach and PEG 2. Coronary artery disease demand ischemic injury angina pectoris 3. Permanent atrial fibrillation [id number] score of 9, on anticoagulation therapy now off Eliquis 4. Sick sinus syndrome post permanent pacemaker implantation 5. Post mitral valve repair 6. UTI, r/o stage IV sacral decubitus ulcer Infection 6. HTN 7. DM 8. Hypercholesterolemia 9. 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 COPD 11. CKD with hypernatremia 12. Anemia post transfusion, suspect component of chronic blood loss from underlying avms based on prior endoscopic findings PLAN: 1. Continue antibiotics per C&S 2. Monitor Hgb post transfusion and resume Eliquis 5 bid once hemostasis assured and able to undergo endoscopic evaluation with possible therapeutic intent after optimization from a cardiorespiratory standpoint and electrolytes normalized 3. IV diuresis with monitor diuretic response, renal fxn and electrolytes, free water repletion and replete K 4. Continue Lopressor 75 tid, and Ranexa 500 bid. Lisinopril 10 qd and Lipitor 80 qd held for now 5. Enteral feeds 6. Wound care, full dose Lovenox pending endoscopic evaluation
--- NOTE | 2019-02-13 11:19 | PN ---
Progress Note, Physician Chief Complaint: patient seen and examined in ICU on AC mode of vent - Current Medication List Current Medications: Active Medications Enoxaparin Sodium (Lovenox -) 70 mg SQ BID [facility] Last Admin: 02/13/19 09:26 Dose: 70 mg Furosemide (Lasix Injection -) 40 mg IVPUSH BID@0600,1400 [facility] Last Admin: 02/13/19 05:54 Dose: 40 mg Ceftazidime/Avibactam 2.5 gm/ (Dextrose) 250 mls @ 125 mls/hr IVPB Q8H-IV [facility]; Protocol Last Admin: 02/13/19 09:24 Dose: 125 mls/hr Dextrose (D5w -) 1,000 mls @ 42 mls/hr IV ASDIR [facility] Last Admin: 02/13/19 07:00 Dose: 42 mls/hr Insulin Aspart (Novolog Vial Sliding Scale -) 1 vial SQ ACHS [facility]; Protocol Last Admin: 02/13/19 05:59 Dose: 8 units Metoprolol Tartrate (Lopressor Injection -) 5 mg IVPUSH Q4H PRN PRN Reason: TACHYCARDIA Last Admin: 02/11/19 10:03 Dose: 5 mg Metoprolol Tartrate (Lopressor -) 75 mg PO TID [facility] Last Admin: 02/13/19 05:38 Dose: 75 mg Pantoprazole Sodium (Protonix -) 40 mg PO DAILY [facility] Last Admin: 02/13/19 09:28 Dose: Not Given Ranolazine (Ranexa -) 500 mg PO BID [facility] Last Admin: 02/13/19 09:27 Dose: Not Given - Objective Vital Signs: Vital Signs Temperature 98.5 F 02/13/19 10:00 Pulse Rate 73 02/13/19 10:00 Respiratory Rate 23 H 02/13/19 10:00 Blood Pressure 113/58 L 02/13/19 10:00 O2 Sat by Pulse Oximetry (%) 100 02/13/19 10:00 Constitutional: Yes: Calm Neck: Yes: Other (trach) Cardiovascular: Yes: Regular Rate and Rhythm, S1, S2 Respiratory: Yes: Mechanically Ventilated Gastrointestinal: Yes: Normal Bowel Sounds, Soft, Other (g tube) Edema: Yes Edema: LUE: 1+, RUE: 1+ Labs: CBC, BMP 02/13/19 06:20 02/13/19 06:20 INR, PTT INR 1.28 (0.83-1.09) H 02/09/19 20:50 Problem List - Problems (1) Hypernatremia Assessment/Plan: d5w sodium is trending down Code(s): E87.0 - HYPEROSMOLALITY AND HYPERNATREMIA (2) Stage 4 skin ulcer of sacral region Assessment/Plan: Microbiology 02/10/19 05:30 Coccyx Gram Stain - Final 02/10/19 05:30 Coccyx Wound Culture - Preliminary Enterobacter Cloacae Proteus Species Enterococcus Faecalis avycaz Code(s): L98.429 - NON-PRESSURE CHRONIC ULCER OF BACK WITH UNSPECIFIED SEVERITY (3) UTI (urinary tract infection) Assessment/Plan: iv abx Microbiology 02/09/19 20:50 Urine - Urine Clean Catch Urine Culture - Preliminary Enterobacter Cloacae Code(s): N39.0 - URINARY TRACT INFECTION, SITE NOT SPECIFIED Qualifiers: Urinary tract infection type: catheter-associated UTI Indwelling urinary catheter type: unspecified Encounter type: initial encounter Qualified Code( s): T83.511A - Infection and inflammatory reaction due to indwelling urethral catheter, initial encounter; N39.0 - Urinary tract infection, site not specified (4) Pleural effusion Assessment/Plan: iv lasix Code(s): J90 - PLEURAL EFFUSION, NOT ELSEWHERE CLASSIFIED (5) Anemia Assessment/Plan: s/p prbc GI on board Code(s): D64.9 - ANEMIA, UNSPECIFIED Qualifiers: Anemia type: unspecified type Qualified Code(s): D64.9 - Anemia, unspecified (6) A-fib Assessment/Plan: on lovenox and metoprolol Code(s): I48.91 - UNSPECIFIED ATRIAL FIBRILLATION Qualifiers: Atrial fibrillation type: persistent
--- NOTE | 2019-02-13 14:11 | PN ---
Progress Note (short form) - Note Progress Note: Renal follow up for hypernatremia Seen and examined at the bedside awake on vent FiO2 is 40% no overnight events Vital Signs Temperature 98.4 F 02/13/19 14:00 Pulse Rate 70 02/13/19 14:00 Respiratory Rate 24 H 02/13/19 14:00 Blood Pressure 112/42 L 02/13/19 14:00 O2 Sat by Pulse Oximetry (%) 100 02/13/19 10:00 Intake & Output 02/10/19 02/11/19 02/12/19 02/13/19 23:59 23:59 23:59 23:59 Intake Total 900 1985 3470 2722 Output Total 1550 1025 550 600 Balance -458 026 7122 2122 Weight 67.132 kg 68.039 kg 68.084 kg 69.626 kg awake on vent, non-verbal Dec BS bilateral lung bases soft NT/ND NO LE edema, clubbing or cyanosis craven in place CBC, BMP 02/13/19 06:20 02/13/19 06:20 Current Medications Enoxaparin Sodium (Lovenox -) 70 mg SQ BID [facility] Last Admin: 02/13/19 09:26 Dose: 70 mg Furosemide (Lasix Injection -) 40 mg IVPUSH BID@0600,1400 [facility] Last Admin: 02/13/19 14:06 Dose: 40 mg Ceftazidime/Avibactam 2.5 gm/ (Dextrose) 250 mls @ 125 mls/hr IVPB Q8H-IV [facility]; Protocol Last Admin: 02/13/19 09:24 Dose: 125 mls/hr Dextrose (D5w -) 1,000 mls @ 42 mls/hr IV ASDIR [facility] Last Admin: 02/13/19 07:00 Dose: 42 mls/hr Insulin Aspart (Novolog Vial Sliding Scale -) 1 vial SQ ACHS [facility]; Protocol Last Admin: 02/13/19 11:41 Dose: 6 units Metoprolol Tartrate (Lopressor Injection -) 5 mg IVPUSH Q4H PRN PRN Reason: TACHYCARDIA Last Admin: 02/11/19 10:03 Dose: 5 mg Metoprolol Tartrate (Lopressor -) 75 mg PO TID [facility] Last Admin: 02/13/19 05:38 Dose: 75 mg Pantoprazole Sodium (Protonix Iv) 40 mg IVPUSH DAILY [facility] 78 year old woman with history of recent CVA (now non-verbal), Afib on A/C, DM, Hypertension, COPD, CAD who presented [place] with hypotension and fevers and noted to have hypernatremia. 1. Hypernatremia 2. Fever/Sepsis 3. Recent CVA 4. Anemia 5. Suspected metabolic alkalosis 6. Leukocytosis 7. Pleural effusions/CHF with preserved LVEF (ECHO 04/2018) Serum Na improving, continue D5W for additional 24 hours Can increase free water via GT as well Continue vent support as per ICU can give additional IV Lasix as needed for pleural effusions Continue tube feeds Continue antibiotics as per ICU trend H/H ICU monitoring Thank you Tashi Aguirre DO
--- NOTE | 2019-02-13 15:24 | PN.GI ---
GI Progress Note Subjective: H/H stable No overt bleeding Blood glucose still elevated - Objective Vital Signs: Vital Signs Temperature 98.4 F 02/13/19 14:00 Pulse Rate 70 02/13/19 14:00 Respiratory Rate 24 H 02/13/19 14:00 Blood Pressure 112/42 L 02/13/19 14:00 O2 Sat by Pulse Oximetry (%) 100 02/13/19 10:00 Constitutional: Calm Eyes: No: Sclera Icterus Cardiovascular: Yes: Pulse Irregular Respiratory: Yes: Diminished (at bases bilaterally.) Gastrointestinal Inspection: Yes: Other (G tube in). No: Distention ...Auscultate: Yes: Normoactive Bowel Sounds ...Palpate: Yes: Soft. No: Mass, Tenderness ...Percussion: No: Tympanitic Edema: No (No LE edema) Neurological: Yes: Alert, Other (On vent) Labs: CBC, BMP 02/13/19 06:20 02/13/19 06:20 INR, PTT INR 1.28 (0.83-1.09) H 02/09/19 20:50 Problem List - Problems (1) Anemia Assessment/Plan: No overt bleeding Continue to monitor H/H Glycemic control Continue PPI Lytes being corrected EGD when optimized, possibly for 02/16 Code(s): D64.9 - ANEMIA, UNSPECIFIED Qualifiers: Anemia type: unspecified type Qualified Code(s): D64.9 - Anemia, unspecified
[2019-02-13] MEDS ORDERED: PT OWN MED DRAWER 7, Y5N ONE (16:05)
[2019-02-13] MEDS: PANTOPRAZOLE SODIUM 40 MG VIAL IVPUSH SCH (16:08)
[2019-02-13] MEDS: BANATROL PLUS POWDER PACKET PO SCH ×2 (16:08→22:19)
[2019-02-14] MEDS: CEFTAZIDIME/AVIBACTAM 2.5 GM in DEXTROSE 5%-WATER - 250 ML IVPB SCH ×3 (02:47→17:07)
[2019-02-14] MEDS: INSULIN SLIDING SCALE (NOVOLOG) 1 VIAL SQ SCH ×4 (06:17→22:33)
[2019-02-14] MEDS: METOPROLOL TARTRATE 25 MG TABLET (FP) PO SCH ×3 (06:18→22:21)
[2019-02-14] MEDS: FUROSEMIDE 40 MG/4 ML INJECTABLE VIAL IVPUSH SCH ×2 (06:18→13:24)
[2019-02-14] MEDS: BANATROL PLUS POWDER PACKET PO SCH ×3 (06:18→22:21)
[2019-02-14] MEDS: DEXTROSE 5%-WATER - 1,000 ML IV SCH (06:18)
--- NOTE | 2019-02-14 09:19 | PN ---
Progress Note, Physician History of Present Illness: AWAKE ON VENT NO ACUTE DISTRESS TEMPS DOWN AFEBRILE URINE C/S CRE SACRAL WOUND C/S POLYMICROBIAL, INCLUDING VRE WBC IMPROVED - Current Medication List Current Medications: Active Medications Enoxaparin Sodium (Lovenox -) 70 mg SQ BID [facility] Last Admin: 02/13/19 22:19 Dose: 70 mg Furosemide (Lasix Injection -) 40 mg IVPUSH BID@0600,1400 [facility] Last Admin: 02/14/19 06:18 Dose: 40 mg Ceftazidime/Avibactam 2.5 gm/ (Dextrose) 250 mls @ 125 mls/hr IVPB Q8H-IV [facility]; Protocol Last Admin: 02/14/19 02:47 Dose: 125 mls/hr Dextrose (D5w -) 1,000 mls @ 42 mls/hr IV ASDIR [facility] Last Admin: 02/14/19 06:18 Dose: 42 mls/hr Insulin Aspart (Novolog Vial Sliding Scale -) 1 vial SQ ACHS [facility]; Protocol Last Admin: 02/14/19 06:17 Dose: 8 units Metoprolol Tartrate (Lopressor Injection -) 5 mg IVPUSH Q4H PRN PRN Reason: TACHYCARDIA Last Admin: 02/11/19 10:03 Dose: 5 mg Metoprolol Tartrate (Lopressor -) 75 mg PO TID [facility] Last Admin: 02/14/19 06:18 Dose: 75 mg Pantoprazole Sodium (Protonix Iv) 40 mg IVPUSH DAILY [facility] Last Admin: 02/13/19 16:08 Dose: 40 mg - Objective Vital Signs: Vital Signs Temperature 98.3 F 02/14/19 06:00 Pulse Rate 67 02/14/19 08:15 Respiratory Rate 24 H 02/14/19 08:13 Blood Pressure 124/70 02/14/19 06:00 O2 Sat by Pulse Oximetry (%) 100 02/14/19 08:15 Constitutional: Yes: No Distress Cardiovascular: Yes: S1, S2 Respiratory: Yes: CTA Bilaterally Gastrointestinal: Yes: Normal Bowel Sounds, Soft Edema: No Labs: CBC, BMP 02/13/19 06:20 INR, PTT INR 1.28 (0.83-1.09) H 02/09/19 20:50 Assessment/Plan UTI R/O SEPSIS SECONDARY TO UTI STAGE IV SACRAL DECUBITUS LEUKOCYTOSIS CHRONIC RESPIRATORY FAILURE CONTINUE AVYCAZ CONTACT PRECAUTIONS
[2019-02-14 09:26] LABS: ALBUMIN 1.2 g/dl (3.4-5.0); BILIRUBIN,TOTAL 0.2 mg/dL (0.2-1); BLOOD UREA NITROGEN 23.4 mg/dL (7-18); CALCIUM 7.7 mg/dL (8.5-10.1); CREATININE 0.8 mg/dL (0.55-1.3); POTASSIUM 3.3 mmol/L (3.5-5.1)
[2019-02-14] MEDS ORDERED: INSULIN (NOVOLOG) ASPART 100 UNITS/ML 10ML VIAL ONE (10:24)
[2019-02-14] MEDS: ENOXAPARIN NA (PORCINE) 80 MG/0.8 ML DISP.SYRIN SQ SCH ×2 (10:49→22:21)
[2019-02-14] MEDS: PANTOPRAZOLE SODIUM 40 MG VIAL IVPUSH SCH (10:50)
--- NOTE | 2019-02-14 12:42 | PN ---
Progress Note, Physician - Current Medication List Current Medications: Active Medications Enoxaparin Sodium (Lovenox -) 70 mg SQ BID [facility] Last Admin: 02/14/19 10:49 Dose: 70 mg Furosemide (Lasix Injection -) 40 mg IVPUSH BID@0600,1400 [facility] Last Admin: 02/14/19 06:18 Dose: 40 mg Ceftazidime/Avibactam 2.5 gm/ (Dextrose) 250 mls @ 125 mls/hr IVPB Q8H-IV [facility]; Protocol Last Admin: 02/14/19 10:58 Dose: 125 mls/hr Dextrose (D5w -) 1,000 mls @ 42 mls/hr IV ASDIR [facility] Last Admin: 02/14/19 06:18 Dose: 42 mls/hr Insulin Aspart (Novolog Vial Sliding Scale -) 1 vial SQ ACHS [facility]; Protocol Last Admin: 02/14/19 10:59 Dose: 6 units Metoprolol Tartrate (Lopressor Injection -) 5 mg IVPUSH Q4H PRN PRN Reason: TACHYCARDIA Last Admin: 02/11/19 10:03 Dose: 5 mg Metoprolol Tartrate (Lopressor -) 75 mg PO TID [facility] Last Admin: 02/14/19 06:18 Dose: 75 mg Pantoprazole Sodium (Protonix Iv) 40 mg IVPUSH DAILY [facility] Last Admin: 02/14/19 10:50 Dose: 40 mg - Objective Vital Signs: Vital Signs Temperature 97.5 F L 02/14/19 10:00 Pulse Rate 80 02/14/19 10:00 Respiratory Rate 21 H 02/14/19 11:49 Blood Pressure 103/50 L 02/14/19 10:00 O2 Sat by Pulse Oximetry (%) 100 02/14/19 08:15 Cardiovascular: Yes: S1, S2 Respiratory: Yes: Mechanically Ventilated Gastrointestinal: Yes: Normal Bowel Sounds, Soft Labs: CBC, BMP 02/13/19 06:20 02/14/19 08:35 INR, PTT INR 1.28 (0.83-1.09) H 02/09/19 20:50 Problem List - Problems (1) Anemia Code(s): D64.9 - ANEMIA, UNSPECIFIED Qualifiers: Anemia type: unspecified type Qualified Code(s): D64.9 - Anemia, unspecified (2) CHF exacerbation Code(s): I50.9 - HEART FAILURE, UNSPECIFIED Qualifiers: Heart failure type: unspecified Qualified Code(s): I50.9 - Heart failure, unspecified (3) Sepsis Code(s): A41.9 - SEPSIS, UNSPECIFIED ORGANISM Qualifiers: Sepsis type: sepsis due to unspecified organism Sepsis acute organ dysfunction status: without acute organ dysfunction Qualified Code(s): A41.9 - Sepsis, unspecified organism (4) UTI (urinary tract infection) Code(s): N39.0 - URINARY TRACT INFECTION, SITE NOT SPECIFIED Qualifiers: Urinary tract infection type: catheter-associated UTI Indwelling urinary catheter type: unspecified Encounter type: initial encounter Qualified Code( s): T83.511A - Infection and inflammatory reaction due to indwelling urethral catheter, initial encounter; N39.0 - Urinary tract infection, site not specified (5) A-fib Code(s): I48.91 - UNSPECIFIED ATRIAL FIBRILLATION Qualifiers: Atrial fibrillation type: persistent (6) CVA (cerebral vascular accident) Code(s): I63.9 - CEREBRAL INFARCTION, UNSPECIFIED (7) Hypernatremia Code(s): E87.0 - HYPEROSMOLALITY AND HYPERNATREMIA Assessment/Plan - Problems (1) Hypernatremia Assessment/Plan: sodium is trending down--142 Code(s): E87.0 - HYPEROSMOLALITY AND HYPERNATREMIA (2) Stage 4 skin ulcer of sacral region Assessment/Plan: Microbiology 02/10/19 05:30 Coccyx Gram Stain - Final 02/10/19 05:30 Coccyx Wound Culture - Preliminary Enterobacter Cloacae Proteus Species Enterococcus Faecalis avycaz Code(s): L98.429 - NON-PRESSURE CHRONIC ULCER OF BACK WITH UNSPECIFIED SEVERITY (3) UTI (urinary tract infection) Assessment/Plan: iv abx Microbiology 02/09/19 20:50 Urine - Urine Clean Catch Urine Culture - Preliminary Enterobacter Cloacae Code(s): N39.0 - URINARY TRACT INFECTION, SITE NOT SPECIFIED Qualifiers: Urinary tract infection type: catheter-associated UTI Indwelling urinary catheter type: unspecified Encounter type: initial encounter Qualified Code( s): T83.511A - Infection and inflammatory reaction due to indwelling urethral catheter, initial encounter; N39.0 - Urinary tract infection, site not specified (4) Pleural effusion Assessment/Plan: iv lasix Code(s): J90 - PLEURAL EFFUSION, NOT ELSEWHERE CLASSIFIED (5) Anemia Assessment/Plan: s/p prbc GI on board Code(s): D64.9 - ANEMIA, UNSPECIFIED Qualifiers: Anemia type: unspecified type Qualified Code(s): D64.9 - Anemia, unspecified (6) A-fib Assessment/Plan: on lovenox and metoprolol Code(s): I48.91 - UNSPECIFIED ATRIAL FIBRILLATION Qualifiers: Atrial fibrillation type: persistent (7) Hypokalemia Assessment/Plan: replace potassium
--- NOTE | 2019-02-14 12:50 | PN ---
Progress Note, Physician History of Present Illness: pulmonary alert,awake,-resp distress on vent support ac mode - Current Medication List Current Medications: Active Medications Enoxaparin Sodium (Lovenox -) 70 mg SQ BID [facility] Last Admin: 02/14/19 10:49 Dose: 70 mg Furosemide (Lasix Injection -) 40 mg IVPUSH BID@0600,1400 [facility] Last Admin: 02/14/19 06:18 Dose: 40 mg Ceftazidime/Avibactam 2.5 gm/ (Dextrose) 250 mls @ 125 mls/hr IVPB Q8H-IV [facility]; Protocol Last Admin: 02/14/19 10:58 Dose: 125 mls/hr Dextrose (D5w -) 1,000 mls @ 42 mls/hr IV ASDIR [facility] Last Admin: 02/14/19 06:18 Dose: 42 mls/hr Insulin Aspart (Novolog Vial Sliding Scale -) 1 vial SQ ACHS [facility]; Protocol Last Admin: 02/14/19 10:59 Dose: 6 units Metoprolol Tartrate (Lopressor Injection -) 5 mg IVPUSH Q4H PRN PRN Reason: TACHYCARDIA Last Admin: 02/11/19 10:03 Dose: 5 mg Metoprolol Tartrate (Lopressor -) 75 mg PO TID [facility] Last Admin: 02/14/19 06:18 Dose: 75 mg Pantoprazole Sodium (Protonix Iv) 40 mg IVPUSH DAILY [facility] Last Admin: 02/14/19 10:50 Dose: 40 mg - Objective Vital Signs: Vital Signs Temperature 97.5 F L 02/14/19 10:00 Pulse Rate 80 02/14/19 10:00 Respiratory Rate 21 H 02/14/19 11:49 Blood Pressure 103/50 L 02/14/19 10:00 O2 Sat by Pulse Oximetry (%) 100 02/14/19 08:15 Constitutional: Yes: Well Nourished, Calm Eyes: Yes: WNL HENT: Yes: WNL Neck: Yes: Supple (trach) Cardiovascular: Yes: Pulse Irregular, S1, S2 Respiratory: Yes: Rhonchi (few rhonchi) Gastrointestinal: Yes: Normal Bowel Sounds, Soft Extremities: Yes: WNL Edema: No Labs: CBC, BMP 02/14/19 08:35 Problem List - Problems (1) Acute and chronic respiratory failure Code(s): J96.20 - ACUTE AND CHR RESP FAILURE, UNSP W HYPOXIA OR HYPERCAPNIA (2) Anemia Code(s): D64.9 - ANEMIA, UNSPECIFIED Qualifiers: Anemia type: unspecified type Qualified Code(s): D64.9 - Anemia, unspecified (3) CHF exacerbation Code(s): I50.9 - HEART FAILURE, UNSPECIFIED Qualifiers: Heart failure type: unspecified Qualified Code(s): I50.9 - Heart failure, unspecified (4) Sepsis Code(s): A41.9 - SEPSIS, UNSPECIFIED ORGANISM Qualifiers: Sepsis type: sepsis due to unspecified organism Sepsis acute organ dysfunction status: without acute organ dysfunction Qualified Code(s): A41.9 - Sepsis, unspecified organism (5) Stage 4 skin ulcer of sacral region Code(s): L98.429 - NON-PRESSURE CHRONIC ULCER OF BACK WITH UNSPECIFIED SEVERITY (6) A-fib Code(s): I48.91 - UNSPECIFIED ATRIAL FIBRILLATION Qualifiers: Atrial fibrillation type: persistent (7) CAD (coronary artery disease) Code(s): I25.10 - ATHSCL HEART DISEASE OF [place] CORONARY ARTERY W/O ANG PCTRS Qualifiers: Coronary Disease-Associated Artery/Lesion type: [place] artery [place] vs. transplanted heart: [place] heart Associated angina: without angina Qualified Code(s): I25.10 - Atherosclerotic heart disease of [place] coronary artery without angina pectoris (8) CKD (chronic kidney disease) Code(s): N18.9 - CHRONIC KIDNEY DISEASE, UNSPECIFIED Qualifiers: Chronic kidney disease stage: stage 2 (mild) Qualified Code(s): N18.2 - Chronic kidney disease, stage 2 (mild) (9) CVA (cerebral vascular accident) Code(s): I63.9 - CEREBRAL INFARCTION, UNSPECIFIED Qualifiers: CVA mechanism: embolism (10) H/O mitral valve replacement Code(s): Z95.2 - PRESENCE OF PROSTHETIC HEART VALVE (11) Ventilator dependent Code(s): Z99.11 - DEPENDENCE ON RESPIRATOR [VENTILATOR] STATUS Assessment/Plan ASSESSMENT AND PLAN: UTI Sacral Decubitus Ulcer Infection Sepsis Volume Overload Acute on Chronic Diastolic Heart Failure Chronic Respiratory Failure h/o CVA COPD Atrial Fibrillation h/o GI Bleed HTN DM Anemia - continue antibiotics per ID - rate controlled - ranticoagulation - monitor H/H - increase free water - Minimize IVF - Lasix - monitor urine output, creatinine - Enteral feeds - taper FiO2 to keep SpO2 >90% - DVT/GI prophylaxis DR SALAZAR
[2019-02-14] MEDS: KCL 10 MEQ IVPB 10 MEQ/100 ML INFUS.BAG IVPB SCH ×2 (13:35→15:00)
--- NOTE | 2019-02-14 19:20 | PN ---
Progress Note, Physician History of Present Illness: Pt seen and examined at bedside. She appears comfortable. She is trached and vented. She is tolerating feeds. - Current Medication List Current Medications: Active Medications Enoxaparin Sodium (Lovenox -) 70 mg SQ BID [facility] Last Admin: 02/14/19 10:49 Dose: 70 mg Furosemide (Lasix Injection -) 40 mg IVPUSH BID@0600,1400 [facility] Last Admin: 02/14/19 13:24 Dose: 40 mg Ceftazidime/Avibactam 2.5 gm/ (Dextrose) 250 mls @ 125 mls/hr IVPB Q8H-IV [facility]; Protocol Last Admin: 02/14/19 17:07 Dose: 125 mls/hr Dextrose (D5w -) 1,000 mls @ 42 mls/hr IV ASDIR [facility] Last Admin: 02/14/19 06:18 Dose: 42 mls/hr Insulin Aspart (Novolog Vial Sliding Scale -) 1 vial SQ ACHS [facility]; Protocol Last Admin: 02/14/19 16:29 Dose: 6 units Metoprolol Tartrate (Lopressor Injection -) 5 mg IVPUSH Q4H PRN PRN Reason: TACHYCARDIA Last Admin: 02/11/19 10:03 Dose: 5 mg Metoprolol Tartrate (Lopressor -) 75 mg PO TID [facility] Last Admin: 02/14/19 13:23 Dose: 75 mg Pantoprazole Sodium (Protonix Iv) 40 mg IVPUSH DAILY [facility] Last Admin: 02/14/19 10:50 Dose: 40 mg - Objective Vital Signs: Vital Signs Temperature 98.3 F 02/14/19 14:00 Pulse Rate 79 02/14/19 14:00 Respiratory Rate 24 H 02/14/19 16:40 Blood Pressure 124/68 02/14/19 14:00 O2 Sat by Pulse Oximetry (%) 100 02/14/19 09:00 Constitutional: Yes: Calm Eyes: Yes: Conjunctiva Clear HENT: Yes: Atraumatic Neck: Yes: Other (trache) Cardiovascular: Yes: S1, S2 Respiratory: Yes: Mechanically Ventilated Gastrointestinal: Yes: Soft Genitourinary: Yes: Incontinence Musculoskeletal: Yes: Muscle Weakness Edema: Yes Edema: LUE: 1+, RUE: 1+, LLE: 1+, RLE: 1+ Labs: CBC, BMP 02/13/19 06:20 02/14/19 08:35 INR, PTT INR 1.28 (0.83-1.09) H 02/09/19 20:50 Assessment/Plan Current Medications Generic Name Dose Route Start Last Admin Trade Name Ebenq PRN Reason Stop Dose Admin Enoxaparin Sodium 70 mg 02/12/19 11:00 02/14/19 10:49 Lovenox - SQ 70 mg BID [facility] Administration Furosemide 40 mg 02/12/19 10:00 02/14/19 13:24 Lasix Injection - IVPUSH 40 mg BID@0600,1400 [facility] Administration Ceftazidime/Avibactam 2.5 gm/ 250 mls @ 125 mls/hr 02/12/19 11:45 02/14/19 17 :07 Dextrose IVPB 125 mls/hr Q8H-IV [facility] Administration Protocol Dextrose 1,000 mls @ 42 mls/hr 02/13/19 06:02 02/14/19 06:18 D5w - IV 42 mls/hr ASDIR [facility] Administration Insulin Aspart 1 vial 02/13/19 22:00 02/14/19 16:29 Novolog Vial Sliding Scale - SQ 6 units ACHS [facility] Administration Protocol Metoprolol Tartrate 5 mg 02/11/19 08:19 02/11/19 10:03 Lopressor Injection - IVPUSH 5 mg Q4H PRN Administration TACHYCARDIA Metoprolol Tartrate 75 mg 02/12/19 06:30 02/14/19 13:23 Lopressor - PO 75 mg TID [facility] Administration Pantoprazole Sodium 40 mg 02/13/19 14:15 02/14/19 10:50 Protonix Iv IVPUSH 40 mg DAILY [facility] Administration 1. Hypernatremia 2. Fever/Sepsis 3. Recent CVA 4. Anemia 5. Suspected metabolic alkalosis 6. Leukocytosis 7. Pleural effusions/CHF with preserved LVEF (ECHO 04/2018) Plan - sodium is improved - cont lasix - d/c d5w - cont feeds - repeat labs in am
--- NOTE | 2019-02-14 19:40 | PN ---
Progress Note, Physician Chief Complaint: Pt has eyes open; does not respond to verbal queries History of Present Illness: 78yF white woman with PMHx severe pulmonary HTN, CAD, a fib on AC, DM, HTN, COPD , GI bleed, CVA (RUE/LE paralysis, non verbal), diastolic CHF, presenting from [facility] w hypotension, fevers. Pt is non verbal. Per , pt was seen at [facility] for CVA 2 weeks ago, trached for respiratory failure, sent [place] without improvement of symptoms. [place], developed sacral ulcer and von arm swelling, breathing not improved. Sent to ED today for hypotension and fever concern. Baseline able to eye track and follow simple commands like hand squeezing PCP Dr Ficsher, only short term stay at [facility] - Current Medication List Current Medications: Active Medications Enoxaparin Sodium (Lovenox -) 70 mg SQ BID [facility] Last Admin: 02/14/19 10:49 Dose: 70 mg Furosemide (Lasix Injection -) 40 mg IVPUSH BID@0600,1400 [facility] Last Admin: 02/14/19 13:24 Dose: 40 mg Ceftazidime/Avibactam 2.5 gm/ (Dextrose) 250 mls @ 125 mls/hr IVPB Q8H-IV [facility]; Protocol Last Admin: 02/14/19 17:07 Dose: 125 mls/hr Insulin Aspart (Novolog Vial Sliding Scale -) 1 vial SQ ACHS [facility]; Protocol Last Admin: 02/14/19 16:29 Dose: 6 units Metoprolol Tartrate (Lopressor Injection -) 5 mg IVPUSH Q4H PRN PRN Reason: TACHYCARDIA Last Admin: 02/11/19 10:03 Dose: 5 mg Metoprolol Tartrate (Lopressor -) 75 mg PO TID [facility] Last Admin: 02/14/19 13:23 Dose: 75 mg Pantoprazole Sodium (Protonix Iv) 40 mg IVPUSH DAILY [facility] Last Admin: 02/14/19 10:50 Dose: 40 mg - Objective Vital Signs: Vital Signs Temperature 98.3 F 02/14/19 14:00 Pulse Rate 79 02/14/19 14:00 Respiratory Rate 24 H 02/14/19 16:40 Blood Pressure 124/68 02/14/19 14:00 O2 Sat by Pulse Oximetry (%) 100 02/14/19 09:00 Constitutional: Yes: Other (unable to communicate) Eyes: Yes: WNL Neck: Yes: Decreased ROM Cardiovascular: Yes: S1 (varies in intensity), S2 Respiratory: Yes: Diminished, Tachypnea Gastrointestinal: Yes: Soft ...Rectal Exam: Yes: Deferred Genitourinary: Yes: Anuria Breast(s): Yes: WNL Musculoskeletal: Yes: Muscle Weakness Extremities: Yes: Cool Edema: No Peripheral Pulses WNL: Yes Integumentary: Yes: WNL Neurological: Yes: Weakness, Other Psychiatric: Yes: Other Labs: CBC, BMP 02/13/19 06:20 02/14/19 08:35 INR, PTT INR 1.28 (0.83-1.09) H 02/09/19 20:50 Abnormal Lab Results 02/15/19 02/15/19 07:55 07:55 WBC 14.3 H RBC 3.34 L Hgb 8.7 L Hct 28.6 L MCHC 30.4 L RDW 21.2 H Absolute Neuts (auto) 11.7 H BUN 20.6 H Random Glucose 262 H Calcium 8.1 L Alkaline Phosphatase 268 H Total Protein 5.6 L Albumin 1.3 L - ....Imaging Chest X-ray: Image Reviewed (bilateral pleural effusion) Problem List - Problems (1) S/P mitral valve repair Assessment/Plan: NL LVEF, mild MR, severe TR on 04/2018 ECHO. Code(s): Z98.890 - OTHER SPECIFIED POSTPROCEDURAL STATES (2) Acute and chronic respiratory failure Code(s): J96.20 - ACUTE AND CHR RESP FAILURE, UNSP W HYPOXIA OR HYPERCAPNIA (3) Anemia Assessment/Plan: On Lovenox (apixaban held until workup of anemia completed). Code(s): D64.9 - ANEMIA, UNSPECIFIED Qualifiers: Anemia type: unspecified type Qualified Code(s): D64.9 - Anemia, unspecified (4) Sacral decubitus ulcer Code(s): L89.159 - PRESSURE ULCER OF SACRAL REGION, UNSPECIFIED STAGE (5) Stage 4 skin ulcer of sacral region Code(s): L98.429 - NON-PRESSURE CHRONIC ULCER OF BACK WITH UNSPECIFIED SEVERITY (6) Ventilator dependent Code(s): Z99.11 - DEPENDENCE ON RESPIRATOR [VENTILATOR] STATUS (7) A-fib Assessment/Plan: On metoprolol for HR control. Apixaban held (on Lovenox) pending EGD, GI mcdonald for anemia. Code(s): I48.91 - UNSPECIFIED ATRIAL FIBRILLATION Qualifiers: Atrial fibrillation type: persistent (8) CVA (cerebral vascular accident) Code(s): I63.9 - CEREBRAL INFARCTION, UNSPECIFIED (9) Diastolic dysfunction Code(s): I51.89 - OTHER ILL-DEFINED HEART DISEASES (10) COPD (chronic obstructive pulmonary disease) Code(s): J44.9 - CHRONIC OBSTRUCTIVE PULMONARY DISEASE, UNSPECIFIED (11) Diabetes Code(s): E11.9 - TYPE 2 DIABETES MELLITUS WITHOUT COMPLICATIONS (12) Severe pulmonary arterial systolic hypertension Code(s): I27.21 - SECONDARY PULMONARY ARTERIAL HYPERTENSION (13) Tracheostomy care Code(s): Z43.0 - ENCOUNTER FOR ATTENTION TO TRACHEOSTOMY (14) CVA (cerebral vascular accident) Assessment/Plan: f/u with neurologist Code(s): I63.9 - CEREBRAL INFARCTION, UNSPECIFIED Qualifiers: CVA mechanism: embolism (15) Hypernatremia Assessment/Plan: now Na is Wnl. F/u Rx with net lead architect. Code(s): E87.0 - HYPEROSMOLALITY AND HYPERNATREMIA
[2019-02-14] MEDS ORDERED: PT OWN MED DRAWER 7, Y5N ONE (20:53)
[2019-02-15] MEDS ORDERED: PT OWN MED DRAWER 7, Y5N ONE ×3 (01:13→17:51)
[2019-02-15] MEDS: CEFTAZIDIME/AVIBACTAM 2.5 GM in DEXTROSE 5%-WATER - 250 ML IVPB SCH ×3 (01:17→18:41)
[2019-02-15] MEDS: FUROSEMIDE 40 MG/4 ML INJECTABLE VIAL IVPUSH SCH ×2 (06:29→14:01)
[2019-02-15] MEDS: BANATROL PLUS POWDER PACKET PO SCH ×2 (06:29→13:29)
[2019-02-15] MEDS: METOPROLOL TARTRATE 25 MG TABLET (FP) PO SCH ×3 (06:30→22:21)
[2019-02-15] MEDS: INSULIN SLIDING SCALE (NOVOLOG) 1 VIAL SQ SCH ×4 (06:41→22:17)
[2019-02-15 08:57] LABS: ALBUMIN 1.3 g/dl (3.4-5.0); BILIRUBIN,TOTAL 0.3 mg/dL (0.2-1); BLOOD UREA NITROGEN 20.6 mg/dL (7-18); CALCIUM 8.1 mg/dL (8.5-10.1); CREATININE 0.8 mg/dL (0.55-1.3); POTASSIUM 3.6 mmol/L (3.5-5.1); TOT PROT 5.6 g/dl (6.4-8.2)
--- NOTE | 2019-02-15 11:07 | PN ---
Progress Note, Physician - Current Medication List Current Medications: Active Medications Enoxaparin Sodium (Lovenox -) 70 mg SQ BID [facility] Last Admin: 02/14/19 22:21 Dose: 70 mg Furosemide (Lasix Injection -) 40 mg IVPUSH BID@0600,1400 [facility] Last Admin: 02/15/19 06:29 Dose: 40 mg Ceftazidime/Avibactam 2.5 gm/ (Dextrose) 250 mls @ 125 mls/hr IVPB Q8H-IV [facility]; Protocol Last Admin: 02/15/19 01:17 Dose: 125 mls/hr Insulin Aspart (Novolog Vial Sliding Scale -) 1 vial SQ ACHS [facility]; Protocol Last Admin: 02/15/19 06:41 Dose: 8 units Metoprolol Tartrate (Lopressor Injection -) 5 mg IVPUSH Q4H PRN PRN Reason: TACHYCARDIA Last Admin: 02/11/19 10:03 Dose: 5 mg Metoprolol Tartrate (Lopressor -) 75 mg PO TID [facility] Last Admin: 02/15/19 06:30 Dose: 75 mg Pantoprazole Sodium (Protonix Iv) 40 mg IVPUSH DAILY [facility] Last Admin: 02/14/19 10:50 Dose: 40 mg - Objective Vital Signs: Vital Signs Temperature 98.3 F 02/15/19 05:36 Pulse Rate 80 02/15/19 08:00 Respiratory Rate 25 H 02/15/19 08:00 Blood Pressure 115/59 L 02/15/19 05:36 O2 Sat by Pulse Oximetry (%) 99 02/15/19 08:00 Cardiovascular: Yes: S1, S2 Respiratory: Yes: Regular, CTA Bilaterally Gastrointestinal: Yes: Normal Bowel Sounds, Soft Labs: CBC, BMP 02/13/19 06:20 02/15/19 07:55 INR, PTT INR 1.28 (0.83-1.09) H 02/09/19 20:50 Problem List - Problems (1) Anemia Code(s): D64.9 - ANEMIA, UNSPECIFIED Qualifiers: Anemia type: unspecified type Qualified Code(s): D64.9 - Anemia, unspecified (2) CHF exacerbation Code(s): I50.9 - HEART FAILURE, UNSPECIFIED Qualifiers: Heart failure type: unspecified Qualified Code(s): I50.9 - Heart failure, unspecified (3) Sepsis Code(s): A41.9 - SEPSIS, UNSPECIFIED ORGANISM Qualifiers: Sepsis type: sepsis due to unspecified organism Sepsis acute organ dysfunction status: without acute organ dysfunction Qualified Code(s): A41.9 - Sepsis, unspecified organism (4) UTI (urinary tract infection) Code(s): N39.0 - URINARY TRACT INFECTION, SITE NOT SPECIFIED Qualifiers: Urinary tract infection type: catheter-associated UTI Indwelling urinary catheter type: unspecified Encounter type: initial encounter Qualified Code( s): T83.511A - Infection and inflammatory reaction due to indwelling urethral catheter, initial encounter; N39.0 - Urinary tract infection, site not specified (5) A-fib Code(s): I48.91 - UNSPECIFIED ATRIAL FIBRILLATION Qualifiers: Atrial fibrillation type: persistent (6) CVA (cerebral vascular accident) Code(s): I63.9 - CEREBRAL INFARCTION, UNSPECIFIED (7) Hypernatremia Code(s): E87.0 - HYPEROSMOLALITY AND HYPERNATREMIA Assessment/Plan - Problems (1) Hypernatremia Assessment/Plan: sodium is trending down--142 Code(s): E87.0 - HYPEROSMOLALITY AND HYPERNATREMIA (2) Stage 4 skin ulcer of sacral region Assessment/Plan: Microbiology 02/10/19 05:30 Coccyx Gram Stain - Final 02/10/19 05:30 Coccyx Wound Culture - Preliminary Enterobacter [place]ae Proteus Species Enterococcus Faecalis avycaz Code(s): L98.429 - NON-PRESSURE CHRONIC ULCER OF BACK WITH UNSPECIFIED SEVERITY (3) UTI (urinary tract infection) Assessment/Plan: iv abx Microbiology 02/09/19 20:50 Urine - Urine Clean Catch Urine Culture - Preliminary Enterobacter Cloacae Code(s): N39.0 - URINARY TRACT INFECTION, SITE NOT SPECIFIED Qualifiers: Urinary tract infection type: catheter-associated UTI Indwelling urinary catheter type: unspecified Encounter type: initial encounter Qualified Code( s): T83.511A - Infection and inflammatory reaction due to indwelling urethral catheter, initial encounter; N39.0 - Urinary tract infection, site not specified (4) Pleural effusion Assessment/Plan: iv lasix Code(s): J90 - PLEURAL EFFUSION, NOT ELSEWHERE CLASSIFIED (5) Anemia Assessment/Plan: s/p prbc GI on board Code(s): D64.9 - ANEMIA, UNSPECIFIED Qualifiers: Anemia type: unspecified type Qualified Code(s): D64.9 - Anemia, unspecified (6) A-fib Assessment/Plan: on lovenox and metoprolol Code(s): I48.91 - UNSPECIFIED ATRIAL FIBRILLATION Qualifiers: Atrial fibrillation type: persistent (7) Hypokalemia Assessment/Plan: replace potassium
[2019-02-15] MEDS: ENOXAPARIN NA (PORCINE) 80 MG/0.8 ML DISP.SYRIN SQ SCH ×2 (11:12→22:16)
[2019-02-15] MEDS: PANTOPRAZOLE SODIUM 40 MG VIAL IVPUSH SCH (11:14)
[2019-02-15 11:23] LABS: BASO % 0.2 % (0-2.0); HEMATOCRIT 28.6 % (32.4-45.2); HEMOGLOBIN 8.7 GM/dL (10.7-15.3); LYMPH % 11.1 % (8-40); MCH 26.1 pg (25.7-33.7); MCHC 30.4 g/dl (32.0-36.0); MEAN CELL VOLUME 85.8 fl (80-96); MEAN PLT VOLUME 10.2 fl (7.5-11.1); MONO % 3.8 % (3.8-10.2); NEUT % 81.9 % (42.8-82.8); PLATELET COUNT 413 K/MM3 (134-434); RBC 3.34 M/mm3 (3.60-5.2); RDW 21.2 % (11.6-15.6); WHITE BLOOD COUNT 14.3 K/mm3 (4.0-10.0)
[2019-02-15 12:15] LABS: ANISOCYTOSIS 2+; PLATELET ESTIMATE NORMAL
[2019-02-15] MEDS: KCL 10 MEQ IVPB 10 MEQ/100 ML INFUS.BAG IVPB SCH ×2 (12:49→14:01)
--- NOTE | 2019-02-15 14:34 | PN ---
Progress Note, Physician History of Present Illness: pulmonary awake ,not following commands on vent support ac mode -resp distress - Current Medication List Current Medications: Active Medications Enoxaparin Sodium (Lovenox -) 70 mg SQ BID [facility] Last Admin: 02/15/19 11:12 Dose: 70 mg Furosemide (Lasix Injection -) 40 mg IVPUSH BID@0600,1400 [facility] Last Admin: 02/15/19 14:01 Dose: 40 mg Ceftazidime/Avibactam 2.5 gm/ (Dextrose) 250 mls @ 125 mls/hr IVPB Q8H-IV [facility]; Protocol Last Admin: 02/15/19 11:11 Dose: 125 mls/hr Insulin Aspart (Novolog Vial Sliding Scale -) 1 vial SQ ACHS [facility]; Protocol Last Admin: 02/15/19 12:07 Dose: 4 units Metoprolol Tartrate (Lopressor Injection -) 5 mg IVPUSH Q4H PRN PRN Reason: TACHYCARDIA Last Admin: 02/11/19 10:03 Dose: 5 mg Metoprolol Tartrate (Lopressor -) 75 mg PO TID [facility] Last Admin: 02/15/19 13:59 Dose: 75 mg Pantoprazole Sodium (Protonix Iv) 40 mg IVPUSH DAILY [facility] Last Admin: 02/15/19 11:14 Dose: 40 mg - Objective Vital Signs: Vital Signs Temperature 98.3 F 02/15/19 10:00 Pulse Rate 78 02/15/19 11:15 Respiratory Rate 18 02/15/19 11:15 Blood Pressure 115/61 02/15/19 10:00 O2 Sat by Pulse Oximetry (%) 99 02/15/19 11:15 Constitutional: Yes: Well Nourished, Calm, Other (awake) Eyes: Yes: WNL HENT: Yes: WNL Neck: Yes: Supple (trach) Cardiovascular: Yes: Pulse Irregular, S1, S2 Respiratory: Yes: Rhonchi (few scattered rhonchi) Gastrointestinal: Yes: Normal Bowel Sounds, Soft Extremities: Yes: WNL Edema: No Labs: CBC, BMP 02/15/19 07:55 02/15/19 07:55 INR, PTT INR 1.28 (0.83-1.09) H 02/09/19 20:50 - ....Imaging Chest X-ray: Image Reviewed Problem List - Problems (1) Acute and chronic respiratory failure Code(s): J96.20 - ACUTE AND CHR RESP FAILURE, UNSP W HYPOXIA OR HYPERCAPNIA (2) Anemia Code(s): D64.9 - ANEMIA, UNSPECIFIED Qualifiers: Anemia type: unspecified type Qualified Code(s): D64.9 - Anemia, unspecified (3) CHF exacerbation Code(s): I50.9 - HEART FAILURE, UNSPECIFIED Qualifiers: Heart failure type: unspecified Qualified Code(s): I50.9 - Heart failure, unspecified (4) Sepsis Code(s): A41.9 - SEPSIS, UNSPECIFIED ORGANISM Qualifiers: Sepsis type: sepsis due to unspecified organism Sepsis acute organ dysfunction status: without acute organ dysfunction Qualified Code(s): A41.9 - Sepsis, unspecified organism (5) Stage 4 skin ulcer of sacral region Code(s): L98.429 - NON-PRESSURE CHRONIC ULCER OF BACK WITH UNSPECIFIED SEVERITY (6) A-fib Code(s): I48.91 - UNSPECIFIED ATRIAL FIBRILLATION Qualifiers: Atrial fibrillation type: persistent (7) CAD (coronary artery disease) Code(s): I25.10 - ATHSCL HEART DISEASE OF [place] CORONARY ARTERY W/O ANG PCTRS Qualifiers: Coronary Disease-Associated Artery/Lesion type: [place] artery [place] vs. transplanted heart: [place] heart Associated angina: without angina Qualified Code(s): I25.10 - Atherosclerotic heart disease of [place] coronary artery without angina pectoris (8) CKD (chronic kidney disease) Code(s): N18.9 - CHRONIC KIDNEY DISEASE, UNSPECIFIED Qualifiers: Chronic kidney disease stage: stage 2 (mild) Qualified Code(s): N18.2 - Chronic kidney disease, stage 2 (mild) (9) CVA (cerebral vascular accident) Code(s): I63.9 - CEREBRAL INFARCTION, UNSPECIFIED Qualifiers: CVA mechanism: embolism (10) H/O mitral valve replacement Code(s): Z95.2 - PRESENCE OF PROSTHETIC HEART VALVE (11) Ventilator dependent Code(s): Z99.11 - DEPENDENCE ON RESPIRATOR [VENTILATOR] STATUS Assessment/Plan ASSESSMENT AND PLAN: UTI Sacral Decubitus Ulcer Infection Sepsis Volume Overload Acute on Chronic Diastolic Heart Failure Chronic Respiratory Failure h/o CVA COPD Atrial Fibrillation h/o GI Bleed HTN DM Anemia - continue antibiotics per ID - rate controlled - anticoagulation - monitor H/H - Lasix - monitor urine output, creatinine - Enteral feeds - vent support ac mode - DVT/GI prophylaxis DR SALAZAR
--- NOTE | 2019-02-15 19:54 | PN ---
Progress Note, Physician History of Present Illness: Pt seen and examined at bedside. She appears comfortable. - Current Medication List Current Medications: Active Medications Enoxaparin Sodium (Lovenox -) 70 mg SQ BID [facility] Last Admin: 02/15/19 11:12 Dose: 70 mg Furosemide (Lasix Injection -) 40 mg IVPUSH BID@0600,1400 [facility] Last Admin: 02/15/19 14:01 Dose: 40 mg Ceftazidime/Avibactam 2.5 gm/ (Dextrose) 250 mls @ 125 mls/hr IVPB Q8H-IV [facility]; Protocol Last Admin: 02/15/19 18:41 Dose: 125 mls/hr Insulin Aspart (Novolog Vial Sliding Scale -) 1 vial SQ ACHS [facility]; Protocol Last Admin: 02/15/19 17:16 Dose: 4 units Metoprolol Tartrate (Lopressor Injection -) 5 mg IVPUSH Q4H PRN PRN Reason: TACHYCARDIA Last Admin: 02/11/19 10:03 Dose: 5 mg Metoprolol Tartrate (Lopressor -) 75 mg PO TID [facility] Last Admin: 02/15/19 13:59 Dose: 75 mg Pantoprazole Sodium (Protonix Iv) 40 mg IVPUSH DAILY [facility] Last Admin: 02/15/19 11:14 Dose: 40 mg - Objective Vital Signs: Vital Signs Temperature 97.4 F L 02/15/19 18:00 Pulse Rate 76 02/15/19 18:00 Respiratory Rate 18 02/15/19 18:00 Blood Pressure 124/68 02/15/19 18:00 O2 Sat by Pulse Oximetry (%) 99 02/15/19 16:18 Constitutional: Yes: Calm Eyes: Yes: Conjunctiva Clear Neck: Yes: Other (trache) Cardiovascular: Yes: S1, S2 Respiratory: Yes: Mechanically Ventilated Genitourinary: Yes: [place] Present Musculoskeletal: Yes: Muscle Weakness Edema: Yes Edema: LUE: 1+, RUE: 1+, LLE: Trace, RLE: Trace Neurological: Yes: Confusion Labs: CBC, BMP 02/15/19 07:55 02/15/19 07:55 INR, PTT INR 1.28 (0.83-1.09) H 02/09/19 20:50 Assessment/Plan Current Medications Generic Name Dose Route Start Last Admin Trade Name Freq PRN Reason Stop Dose Admin Enoxaparin Sodium 70 mg 02/12/19 11:00 02/15/19 11:12 Lovenox - SQ 70 mg BID [facility] Administration Furosemide 40 mg 02/12/19 10:00 02/15/19 14:01 Lasix Injection - IVPUSH 40 mg BID@0600,1400 [facility] Administration Ceftazidime/Avibactam 2.5 gm/ 250 mls @ 125 mls/hr 02/12/19 11:45 02/15/19 18 :41 Dextrose IVPB 125 mls/hr Q8H-IV [facility] Administration Protocol Insulin Aspart 1 vial 02/13/19 22:00 02/15/19 17:16 Novolog Vial Sliding Scale - SQ 4 units ACHS [facility] Administration Protocol Metoprolol Tartrate 5 mg 02/11/19 08:19 02/11/19 10:03 Lopressor Injection - IVPUSH 5 mg Q4H PRN Administration TACHYCARDIA Metoprolol Tartrate 75 mg 02/12/19 06:30 02/15/19 13:59 Lopressor - PO 75 mg TID [facility] Administration Pantoprazole Sodium 40 mg 02/13/19 14:15 02/15/19 11:14 Protonix Iv IVPUSH 40 mg DAILY [facility] Administration 1. Hypernatremia 2. Fever/Sepsis 3. Recent CVA 4. Anemia 5. Suspected metabolic alkalosis 6. Leukocytosis 7. Pleural effusions/CHF with preserved LVEF (ECHO 04/2018) Plan - monitor lytes - sodium stable - cont lasix - pt tolerating feeds
[2019-02-15] MEDS ORDERED: INSULIN (NOVOLOG) ASPART 100 UNITS/ML 10ML VIAL ONE (21:56)
[2019-02-16] MEDS ORDERED: PT OWN MED DRAWER 7, Y5N ONE ×2 (02:38→05:31)
[2019-02-16] MEDS: CEFTAZIDIME/AVIBACTAM 2.5 GM in DEXTROSE 5%-WATER - 250 ML IVPB SCH ×3 (03:00→18:50)
[2019-02-16] MEDS: METOPROLOL TARTRATE 25 MG TABLET (FP) PO SCH ×3 (07:03→23:24)
[2019-02-16] MEDS: FUROSEMIDE 40 MG/4 ML INJECTABLE VIAL IVPUSH SCH ×2 (07:04→14:55)
[2019-02-16] MEDS: INSULIN SLIDING SCALE (NOVOLOG) 1 VIAL SQ SCH ×4 (07:11→23:28)
--- NOTE | 2019-02-16 07:34 | PN ---
Progress Note, Physician Chief Complaint: Pt remains on ventilator, with eyes open, appear to follow movement; does not respond to verbal queries History of Present Illness: 78yF white woman with PMHx severe pulmonary HTN, CAD, a fib on AC, DM, HTN, COPD , GI bleed, CVA (RUE/LE paralysis, non verbal), diastolic CHF, anemia, presenting from [facility] w hypotension, fevers. Pt is non verbal. Per , pt was seen at [facility] for CVA 2 weeks ago, trached for respiratory failure, sent to [place] without improvement of symptoms. At [place], developed sacral ulcer and von arm swelling, breathing not improved. Sent to ED today for hypotension and fever concern. Baseline able to eye track and follow simple commands like hand squeezing PCP Dr Fischer, only short term stay at [facility] - Current Medication List Current Medications: Active Medications Enoxaparin Sodium (Lovenox -) 70 mg SQ BID [facility] Last Admin: 02/15/19 22:16 Dose: 70 mg Furosemide (Lasix Injection -) 40 mg IVPUSH BID@0600,1400 [facility] Last Admin: 02/16/19 07:04 Dose: 40 mg Ceftazidime/Avibactam 2.5 gm/ (Dextrose) 250 mls @ 125 mls/hr IVPB Q8H-IV [facility]; Protocol Last Admin: 02/16/19 03:00 Dose: 125 mls/hr Insulin Aspart (Novolog Vial Sliding Scale -) 1 vial SQ ACHS [facility]; Protocol Last Admin: 02/16/19 07:11 Dose: Not Given Metoprolol Tartrate (Lopressor Injection -) 5 mg IVPUSH Q4H PRN PRN Reason: TACHYCARDIA Last Admin: 02/11/19 10:03 Dose: 5 mg Metoprolol Tartrate (Lopressor -) 75 mg PO TID [facility] Last Admin: 02/16/19 07:03 Dose: 75 mg Pantoprazole Sodium (Protonix Iv) 40 mg IVPUSH DAILY [facility] Last Admin: 02/15/19 11:14 Dose: 40 mg - Objective Vital Signs: Vital Signs Temperature 98.1 F 02/16/19 01:00 Pulse Rate 75 02/16/19 04:10 Respiratory Rate 18 02/16/19 04:10 Blood Pressure 119/59 L 02/16/19 01:00 O2 Sat by Pulse Oximetry (%) 99 02/16/19 04:10 Constitutional: Yes: Other (uncommunicative) Eyes: Yes: WNL HENT: Yes: Other Neck: Yes: Decreased ROM, Other (tracheostomy) Cardiovascular: Yes: S1 (varies in intensity), S2 Respiratory: Yes: Diminished, Mechanically Ventilated Gastrointestinal: Yes: Soft Breast(s): No: Left Musculoskeletal: Yes: Muscle Weakness Extremities: Yes: Cool Edema: No Peripheral Pulses WNL: Yes Integumentary: Yes: Incision Wound/Incision: Yes: Clean/Dry (tracheostomy) Neurological: Yes: Weakness Psychiatric: Yes: Other Labs: INR, PTT INR 1.28 (0.83-1.09) H 02/09/19 20:50 - ....Imaging Chest X-ray: Image Reviewed EKG: Image Reviewed (AF with RVR) Problem List - Problems (1) S/P mitral valve repair Assessment/Plan: NL LVEF, mild MR, severe TR on 04/2018 ECHO. Code(s): Z98.890 - OTHER SPECIFIED POSTPROCEDURAL STATES (2) Acute and chronic respiratory failure Code(s): J96.20 - ACUTE AND CHR RESP FAILURE, UNSP W HYPOXIA OR HYPERCAPNIA (3) Anemia Assessment/Plan: On Lovenox (apixaban held until workup of anemia completed). Code(s): D64.9 - ANEMIA, UNSPECIFIED Qualifiers: Anemia type: unspecified type Qualified Code(s): D64.9 - Anemia, unspecified (4) Sacral decubitus ulcer Assessment/Plan: admitted febrile. On antibiotics; f/u with ID, wound care. Code(s): L89.159 - PRESSURE ULCER OF SACRAL REGION, UNSPECIFIED STAGE (5) Stage 4 skin ulcer of sacral region Code(s): L98.429 - NON-PRESSURE CHRONIC ULCER OF BACK WITH UNSPECIFIED SEVERITY (6) Ventilator dependent Code(s): Z99.11 - DEPENDENCE ON RESPIRATOR [VENTILATOR] STATUS (7) A-fib Assessment/Plan: On metoprolol for HR control. Apixaban held (on Lovenox) pending EGD, GI w/u for anemia. Code(s): I48.91 - UNSPECIFIED ATRIAL FIBRILLATION Qualifiers: Atrial fibrillation type: persistent (8) CVA (cerebral vascular accident) Code(s): I63.9 - CEREBRAL INFARCTION, UNSPECIFIED (9) Diastolic dysfunction Code(s): I51.89 - OTHER ILL-DEFINED HEART DISEASES (10) COPD (chronic obstructive pulmonary disease) Code(s): J44.9 - CHRONIC OBSTRUCTIVE PULMONARY DISEASE, UNSPECIFIED (11) Diabetes Code(s): E11.9 - TYPE 2 DIABETES MELLITUS WITHOUT COMPLICATIONS (12) Severe pulmonary arterial systolic hypertension Code(s): I27.21 - SECONDARY PULMONARY ARTERIAL HYPERTENSION (13) Tracheostomy care Code(s): Z43.0 - ENCOUNTER FOR ATTENTION TO TRACHEOSTOMY (14) CVA (cerebral vascular accident) Assessment/Plan: f/u with neurologist Code(s): I63.9 - CEREBRAL INFARCTION, UNSPECIFIED Qualifiers: CVA mechanism: embolism
[2019-02-16 08:11] LABS: ALBUMIN 1.2 g/dl (3.4-5.0); BILIRUBIN,TOTAL 0.3 mg/dL (0.2-1); BLOOD UREA NITROGEN 18.9 mg/dL (7-18); CALCIUM 7.9 mg/dL (8.5-10.1); CREATININE 0.6 mg/dL (0.55-1.3); POTASSIUM 3.9 mmol/L (3.5-5.1); TOT PROT 5.3 g/dl (6.4-8.2)
[2019-02-16 08:16] LABS: BASO % 0.4 % (0-2.0); EOS % 3.5 % (0-4.5); HEMATOCRIT 27.7 % (32.4-45.2); HEMOGLOBIN 8.6 GM/dL (10.7-15.3); LYMPH % 12.2 % (8-40); MCH 26.1 pg (25.7-33.7); MCHC 30.8 g/dl (32.0-36.0); MEAN CELL VOLUME 84.6 fl (80-96); MONO % 3.9 % (3.8-10.2); PLATELET COUNT 410 K/MM3 (134-434); RBC 3.28 M/mm3 (3.60-5.2); RDW 21.7 % (11.6-15.6); WHITE BLOOD COUNT 12.5 K/mm3 (4.0-10.0)
[2019-02-16] MEDS: ENOXAPARIN NA (PORCINE) 80 MG/0.8 ML DISP.SYRIN SQ SCH ×2 (10:59→23:24)
[2019-02-16] MEDS: PANTOPRAZOLE SODIUM 40 MG VIAL IVPUSH SCH (10:59)
--- NOTE | 2019-02-16 11:36 | PN ---
Progress Note (short form) - Note Progress Note: EGD cancelled for today as therapeutic lovenox not held Will plan for procedure tomorrow, consent for EGD and for anesthesia obtained from [facility] by phone NPO after MN Please hold AM dose of lovenox Communicated with RN
[2019-02-16] MEDS ORDERED: INSULIN (NOVOLOG) ASPART 100 UNITS/ML 10ML VIAL SQ ONE (12:01)
--- NOTE | 2019-02-16 12:05 | PN ---
Progress Note, Physician Chief Complaint: patient seen and examined - Current Medication List Current Medications: Active Medications Enoxaparin Sodium (Lovenox -) 70 mg SQ BID [facility] Last Admin: 02/16/19 10:59 Dose: 70 mg Furosemide (Lasix Injection -) 40 mg IVPUSH BID@0600,1400 [facility] Last Admin: 02/16/19 07:04 Dose: 40 mg Ceftazidime/Avibactam 2.5 gm/ (Dextrose) 250 mls @ 125 mls/hr IVPB Q8H-IV [facility]; Protocol Last Admin: 02/16/19 10:58 Dose: 125 mls/hr Sodium Chloride (Normal Saline -) 1,000 mls @ 50 mls/hr IV ASDIR [facility] Stop: 02/17/19 12:02 Insulin Aspart (Novolog Vial Sliding Scale -) 1 vial SQ ACHS [facility]; Protocol Last Admin: 02/16/19 07:11 Dose: Not Given Insulin Aspart (Novolog Vial) 4 units SQ ONCE ONE; Protocol Stop: 02/16/19 12:02 Metoprolol Tartrate (Lopressor Injection -) 5 mg IVPUSH Q4H PRN PRN Reason: TACHYCARDIA Last Admin: 02/11/19 10:03 Dose: 5 mg Metoprolol Tartrate (Lopressor -) 75 mg PO TID [facility] Last Admin: 02/16/19 07:03 Dose: 75 mg Pantoprazole Sodium (Protonix Iv) 40 mg IVPUSH DAILY [facility] Last Admin: 02/16/19 10:59 Dose: 40 mg - Objective Vital Signs: Vital Signs Temperature 98.4 F 02/16/19 05:00 Pulse Rate 93 H 02/16/19 08:41 Respiratory Rate 20 02/16/19 08:41 Blood Pressure 133/71 02/16/19 05:00 O2 Sat by Pulse Oximetry (%) 98 02/16/19 08:41 Labs: CBC, BMP 02/16/19 07:05 02/16/19 07:05 INR, PTT INR 1.28 (0.83-1.09) H 02/09/19 20:50 Problem List - Problems (1) Hypernatremia Code(s): E87.0 - HYPEROSMOLALITY AND HYPERNATREMIA (2) Stage 4 skin ulcer of sacral region Code(s): L98.429 - NON-PRESSURE CHRONIC ULCER OF BACK WITH UNSPECIFIED SEVERITY (3) UTI (urinary tract infection) Code(s): N39.0 - URINARY TRACT INFECTION, SITE NOT SPECIFIED Qualifiers: Urinary tract infection type: catheter-associated UTI Indwelling urinary catheter type: unspecified Encounter type: initial encounter Qualified Code( s): T83.511A - Infection and inflammatory reaction due to indwelling urethral catheter, initial encounter; N39.0 - Urinary tract infection, site not specified (4) Pleural effusion Code(s): J90 - PLEURAL EFFUSION, NOT ELSEWHERE CLASSIFIED (5) Anemia Code(s): D64.9 - ANEMIA, UNSPECIFIED Qualifiers: Anemia type: unspecified type Qualified Code(s): D64.9 - Anemia, unspecified (6) A-fib Code(s): I48.91 - UNSPECIFIED ATRIAL FIBRILLATION Qualifiers: Atrial fibrillation type: persistent
--- NOTE | 2019-02-16 12:08 | PN ---
Progress Note, Physician Chief Complaint: patient to get EGD tmw TF restarted - Current Medication List Current Medications: Active Medications Enoxaparin Sodium (Lovenox -) 70 mg SQ BID [facility] Last Admin: 02/16/19 10:59 Dose: 70 mg Furosemide (Lasix Injection -) 40 mg IVPUSH BID@0600,1400 [facility] Last Admin: 02/16/19 07:04 Dose: 40 mg Ceftazidime/Avibactam 2.5 gm/ (Dextrose) 250 mls @ 125 mls/hr IVPB Q8H-IV [facility]; Protocol Last Admin: 02/16/19 10:58 Dose: 125 mls/hr Sodium Chloride (Normal Saline -) 1,000 mls @ 50 mls/hr IV ASDIR [facility] Stop: 02/17/19 12:02 Insulin Aspart (Novolog Vial Sliding Scale -) 1 vial SQ ACHS [facility]; Protocol Last Admin: 02/16/19 07:11 Dose: Not Given Metoprolol Tartrate (Lopressor Injection -) 5 mg IVPUSH Q4H PRN PRN Reason: TACHYCARDIA Last Admin: 02/11/19 10:03 Dose: 5 mg Metoprolol Tartrate (Lopressor -) 75 mg PO TID [facility] Last Admin: 02/16/19 07:03 Dose: 75 mg Pantoprazole Sodium (Protonix Iv) 40 mg IVPUSH DAILY [facility] Last Admin: 02/16/19 10:59 Dose: 40 mg - Objective Vital Signs: Vital Signs Temperature 98.4 F 02/16/19 05:00 Pulse Rate 93 H 02/16/19 08:41 Respiratory Rate 20 02/16/19 08:41 Blood Pressure 133/71 02/16/19 05:00 O2 Sat by Pulse Oximetry (%) 98 02/16/19 08:41 Constitutional: Yes: Calm Cardiovascular: Yes: Regular Rate and Rhythm, S1, S2 Respiratory: Yes: CTA Bilaterally, Mechanically Ventilated Gastrointestinal: Yes: Normal Bowel Sounds, Soft, Other (g tube) Labs: CBC, BMP 02/16/19 07:05 02/16/19 07:05 INR, PTT INR 1.28 (0.83-1.09) H 02/09/19 20:50 Problem List - Problems (1) Anemia Assessment/Plan: s/p prbc GI to do EGD in AM hold TF tonight NPO after midnight hold lovenox AM dose Code(s): D64.9 - ANEMIA, UNSPECIFIED Qualifiers: Anemia type: unspecified type Qualified Code(s): D64.9 - Anemia, unspecified (2) Hypernatremia Assessment/Plan: recheck sodium today labs ordered ivf stopped Code(s): E87.0 - HYPEROSMOLALITY AND HYPERNATREMIA (3) Stage 4 skin ulcer of sacral region Assessment/Plan: Microbiology 02/10/19 05:30 Coccyx Gram Stain - Final 02/10/19 05:30 Coccyx Wound Culture - Preliminary Enterobacter Cloacae Proteus Species Enterococcus Faecalis avycaz ID on board Code(s): L98.429 - NON-PRESSURE CHRONIC ULCER OF BACK WITH UNSPECIFIED SEVERITY (4) UTI (urinary tract infection) Assessment/Plan: iv abx Microbiology 02/09/19 20:50 Urine - Urine Clean Catch Urine Culture - Preliminary Enterobacter Cloacae Code(s): N39.0 - URINARY TRACT INFECTION, SITE NOT SPECIFIED Qualifiers: Urinary tract infection type: catheter-associated UTI Indwelling urinary catheter type: unspecified Encounter type: initial encounter Qualified Code( s): T83.511A - Infection and inflammatory reaction due to indwelling urethral catheter, initial encounter; N39.0 - Urinary tract infection, site not specified (5) Pleural effusion Assessment/Plan: iv lasix bid check labs Code(s): J90 - PLEURAL EFFUSION, NOT ELSEWHERE CLASSIFIED (6) A-fib Assessment/Plan: on lovenox and metoprolol hold lovenox A Mdose for EGD in AM Code(s): I48.91 - UNSPECIFIED ATRIAL FIBRILLATION Qualifiers: Atrial fibrillation type: persistent (7) Diabetes mellitus Assessment/Plan: insulin sliding scale bgm hgab1c 7.6 Code(s): E11.9 - TYPE 2 DIABETES MELLITUS WITHOUT COMPLICATIONS Qualifiers: Diabetes mellitus type: type 2
[2019-02-16] MEDS ORDERED: SODIUM CHLORIDE 1,000 ML IV SCH (12:15)
--- NOTE | 2019-02-16 12:38 | PN ---
Progress Note (short form) - Note Progress Note: PULMONARY Vented, awake. No fevers recorded. Vital Signs Period Temp Pulse Resp BP Sys/[place] Pulse Ox Last 24 Hr 97.4 F-98.5 F 73-107 18-23 119-133/59-84 98-99 Gen: vented, awake Heart: RRR Lung: decreased breath sounds at the bases Abd: soft, nontender Ext: no edema CBC, BMP 02/16/19 07:05 02/16/19 07:05 Active Medications Enoxaparin Sodium (Lovenox -) 70 mg SQ BID [facility] Last Admin: 02/16/19 10:59 Dose: 70 mg Furosemide (Lasix Injection -) 40 mg IVPUSH BID@0600,1400 [facility] Last Admin: 02/16/19 07:04 Dose: 40 mg Ceftazidime/Avibactam 2.5 gm/ (Dextrose) 250 mls @ 125 mls/hr IVPB Q8H-IV [facility]; Protocol Last Admin: 02/16/19 10:58 Dose: 125 mls/hr Insulin Aspart (Novolog Vial Sliding Scale -) 1 vial SQ ACHS [facility]; Protocol Last Admin: 02/16/19 12:21 Dose: Not Given Metoprolol Tartrate (Lopressor Injection -) 5 mg IVPUSH Q4H PRN PRN Reason: TACHYCARDIA Last Admin: 02/11/19 10:03 Dose: 5 mg Metoprolol Tartrate (Lopressor -) 75 mg PO TID [facility] Last Admin: 02/16/19 07:03 Dose: 75 mg Pantoprazole Sodium (Protonix Iv) 40 mg IVPUSH DAILY [facility] Last Admin: 02/16/19 10:59 Dose: 40 mg A/P UTI Sacral Decubitus Ulcer Sepsis Volume Overload Acute on Chronic Diastolic Heart Failure Chronic Respiratory Failure h/o CVA COPD Atrial Fibrillation h/o GI Bleed HTN DM Anemia - continue antibiotics per ID - rate controlled - continue anticoagulation - monitor H/H - continue lasix - monitor urine output, creatinine - enteral feeds - DVT/GI prophylaxis
--- NOTE | 2019-02-16 12:48 | PN ---
Progress Note (short form) - Note Progress Note: Renal follow up for hypernatremia Seen and examined at the bedside on vent via trach no overnight events continues to have loose stools via rectal tube making urine Vital Signs Temperature 98.4 F 02/16/19 05:00 Pulse Rate 93 H 02/16/19 08:41 Respiratory Rate 22 H 02/16/19 12:30 Blood Pressure 133/71 02/16/19 05:00 O2 Sat by Pulse Oximetry (%) 98 02/16/19 08:41 Intake & Output 02/13/19 02/14/19 02/15/19 02/16/19 23:59 23:59 23:59 23:59 Intake Total 3902 4035 240 Output Total 1400 1500 500 Balance 2502 4035 -1260 -500 Weight 69.626 kg 71.781 kg 71.668 kg awake on vent, non-verbal Dec BS bilateral lung bases soft NT/ND NO LE edema, clubbing or cyanosis craven in place CBC, BMP 02/16/19 07:05 02/16/19 07:05 Current Medications Enoxaparin Sodium (Lovenox -) 70 mg SQ BID [facility] [place] Last Admin: 02/16/19 10:59 Dose: 70 mg Furosemide (Lasix Injection -) 40 mg IVPUSH BID@0600,1400 [facility] Last Admin: 02/16/19 07:04 Dose: 40 mg Ceftazidime/Avibactam 2.5 gm/ (Dextrose) 250 mls @ 125 mls/hr IVPB Q8H-IV [facility]; Protocol Last Admin: 02/16/19 10:58 Dose: 125 mls/hr Insulin Aspart (Novolog Vial Sliding Scale -) 1 vial SQ ACHS [facility]; Protocol Last Admin: 02/16/19 12:21 Dose: Not Given Metoprolol Tartrate (Lopressor Injection -) 5 mg IVPUSH Q4H PRN PRN Reason: TACHYCARDIA Last Admin: 02/11/19 10:03 Dose: 5 mg Metoprolol Tartrate (Lopressor -) 75 mg PO TID [facility] Last Admin: 02/16/19 07:03 Dose: 75 mg Pantoprazole Sodium (Protonix Iv) 40 mg IVPUSH DAILY [facility] Last Admin: 02/16/19 10:59 Dose: 40 mg 78 year old woman with history of recent CVA (now non-verbal), Afib on A/C, DM, Hypertension, COPD, CAD who presented from [place] with hypotension and fevers and noted to have hypernatremia. 1. Hypernatremia 2. Fever/Sepsis 3. Recent CVA 4. Anemia 5. Suspected metabolic alkalosis 6. Leukocytosis 7. Pleural effusions/CHF with preserved LVEF (ECHO 04/2018) Serum Na now improved to within normal limits Continue free water via G-tube Continue vent support as per pulmonary on IV Lasix BID for pleural effusions Continue tube feeds Continue antibiotics as per ICU trend H/H trend renal function and electrolytes daily while on IV diuretics Thank you Tashi Aguirre DO
[2019-02-16 13:14] LABS: BASO % 0.6 % (0-2.0); EOS % 4.3 % (0-4.5); HEMATOCRIT 29.3 % (32.4-45.2); HEMOGLOBIN 9.1 GM/dL (10.7-15.3); MCH 26.4 pg (25.7-33.7); MEAN CELL VOLUME 85.3 fl (80-96); MEAN PLT VOLUME 9.9 fl (7.5-11.1); MONO % 2.7 % (3.8-10.2); NEUT % 80.4 % (42.8-82.8); PLATELET COUNT 430 K/MM3 (134-434); RBC 3.44 M/mm3 (3.60-5.2); RDW 21.4 % (11.6-15.6); WHITE BLOOD COUNT 11.3 K/mm3 (4.0-10.0)
--- NOTE | 2019-02-16 13:17 | PN ---
Progress Note, Physician Chief Complaint: Events noted Maintained on vent support via tracheostomy History of Present Illness: Patient was seen and examined. Awake. Nonverbal, but cannot speak with trache On vent support - Current Medication List Current Medications: Active Medications Enoxaparin Sodium (Lovenox -) 70 mg SQ BID [facility] Last Admin: 02/16/19 10:59 Dose: 70 mg Furosemide (Lasix Injection -) 40 mg IVPUSH BID@0600,1400 [facility] Last Admin: 02/16/19 07:04 Dose: 40 mg Ceftazidime/Avibactam 2.5 gm/ (Dextrose) 250 mls @ 125 mls/hr IVPB Q8H-IV [facility]; Protocol Last Admin: 02/16/19 10:58 Dose: 125 mls/hr Insulin Aspart (Novolog Vial Sliding Scale -) 1 vial SQ ACHS [facility]; Protocol Last Admin: 02/16/19 12:21 Dose: Not Given Metoprolol Tartrate (Lopressor Injection -) 5 mg IVPUSH Q4H PRN PRN Reason: TACHYCARDIA Last Admin: 02/11/19 10:03 Dose: 5 mg Metoprolol Tartrate (Lopressor -) 75 mg PO TID [facility] Last Admin: 02/16/19 07:03 Dose: 75 mg Pantoprazole Sodium (Protonix Iv) 40 mg IVPUSH DAILY [facility] Last Admin: 02/16/19 10:59 Dose: 40 mg - Objective Vital Signs: Vital Signs Temperature 97.8 F 02/16/19 09:00 Pulse Rate 91 H 02/16/19 09:00 Respiratory Rate 22 H 02/16/19 12:30 Blood Pressure 142/90 02/16/19 09:00 O2 Sat by Pulse Oximetry (%) 98 02/16/19 08:41 Neck: Yes: Supple Cardiovascular: Yes: Pulse Irregular, S1, S2 Respiratory: Yes: Diminished, Mechanically Ventilated Gastrointestinal: Yes: Normal Bowel Sounds, Soft. No: Tenderness Edema: Yes Edema: LLE: Trace, RLE: Trace Labs: CBC, BMP 02/16/19 12:58 Problem List - Problems (1) Acute and chronic respiratory failure Code(s): J96.20 - ACUTE AND CHR RESP FAILURE, UNSP W HYPOXIA OR HYPERCAPNIA (2) Anemia Code(s): D64.9 - ANEMIA, UNSPECIFIED Qualifiers: Anemia type: unspecified type Qualified Code(s): D64.9 - Anemia, unspecified (3) Pleural effusion Code(s): J90 - PLEURAL EFFUSION, NOT ELSEWHERE CLASSIFIED (4) S/P mitral valve repair Code(s): Z98.890 - OTHER SPECIFIED POSTPROCEDURAL STATES (5) Sacral decubitus ulcer Code(s): L89.159 - PRESSURE ULCER OF SACRAL REGION, UNSPECIFIED STAGE (6) Sepsis Code(s): A41.9 - SEPSIS, UNSPECIFIED ORGANISM Qualifiers: Sepsis type: sepsis due to unspecified organism Sepsis acute organ dysfunction status: without acute organ dysfunction Qualified Code(s): A41.9 - Sepsis, unspecified organism (7) Severe pulmonary arterial systolic hypertension Code(s): I27.21 - SECONDARY PULMONARY ARTERIAL HYPERTENSION (8) UTI (urinary tract infection) Code(s): N39.0 - URINARY TRACT INFECTION, SITE NOT SPECIFIED Qualifiers: Urinary tract infection type: catheter-associated UTI Indwelling urinary catheter type: unspecified Encounter type: initial encounter Qualified Code( s): T83.511A - Infection and inflammatory reaction due to indwelling urethral catheter, initial encounter; N39.0 - Urinary tract infection, site not specified (9) Ventilator dependent Code(s): Z99.11 - DEPENDENCE ON RESPIRATOR [VENTILATOR] STATUS (10) A-fib Code(s): I48.91 - UNSPECIFIED ATRIAL FIBRILLATION Qualifiers: Atrial fibrillation type: persistent (11) CAD (coronary artery disease) Code(s): I25.10 - ATHSCL HEART DISEASE OF [place] CORONARY ARTERY W/O ANG PCTRS Qualifiers: Coronary Disease-Associated Artery/Lesion type: [place] artery [place] vs. transplanted heart: [place] heart Associated angina: without angina Qualified Code(s): I25.10 - Atherosclerotic heart disease of [place] coronary artery without angina pectoris (12) CKD (chronic kidney disease) Code(s): N18.9 - CHRONIC KIDNEY DISEASE, UNSPECIFIED Qualifiers: Chronic kidney disease stage: stage 2 (mild) Qualified Code(s): N18.2 - Chronic kidney disease, stage 2 (mild) (13) CVA (cerebral vascular accident) Code(s): I63.9 - CEREBRAL INFARCTION, UNSPECIFIED (14) Demand ischemia Code(s): I24.8 - OTHER FORMS OF ACUTE ISCHEMIC HEART DISEASE (15) Diabetes mellitus Code(s): E11.9 - TYPE 2 DIABETES MELLITUS WITHOUT COMPLICATIONS Qualifiers: Diabetes mellitus type: type 2 (16) Diastolic dysfunction Code(s): I51.89 - OTHER ILL-DEFINED HEART DISEASES (17) GIB (gastrointestinal bleeding) Code(s): K92.2 - GASTROINTESTINAL HEMORRHAGE, UNSPECIFIED Qualifiers: GI bleed type/associated pathology: unspecified gastrointestinal hemorrhage type Qualified Code(s): K92.2 - Gastrointestinal hemorrhage, unspecified (18) Sick sinus syndrome Code(s): I49.5 - SICK SINUS SYNDROME (19) Sigmoid diverticulosis Code(s): K57.30 - DVRTCLOS OF LG INT W/O PERFORATION OR ABSCESS W/O BLEEDING (20) COPD (chronic obstructive pulmonary disease) Code(s): J44.9 - CHRONIC OBSTRUCTIVE PULMONARY DISEASE, UNSPECIFIED (21) HTN (hypertension) Code(s): I10 - ESSENTIAL (PRIMARY) HYPERTENSION Qualifiers: Hypertension type: essential hypertension Qualified Code(s): I10 - Essential (primary) hypertension (22) Hyperlipidemia Code(s): E78.5 - HYPERLIPIDEMIA, UNSPECIFIED Qualifiers: Hyperlipidemia type: pure hypercholesterolemia Qualified Code(s): E78.00 - Pure hypercholesterolemia, unspecified; E78.0 - Pure hypercholesterolemia (23) Pacemaker Code(s): Z95.0 - PRESENCE OF CARDIAC PACEMAKER Assessment/Plan 1. Acute on chronic diastolic heart failure 2. Chronic respiratory failure s/p trache and PEG 3. Coronary artery disease demand ischemic injury angina pectoris 4. Permanent atrial fibrillation [id number] score of 9 5. Sick sinus syndrome post permanent pacemaker implantation 6. Post mitral valve repair 7. UTI 8. Sacral decubitus ulcer Infection 9. HTN 7. DM 10. Hypercholesterolemia 11. 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 COPD 13. CKD with hypernatremia 14. Anemia post transfusion PLAN: 1. Continue antibiotics 2. Monitor Hgb post transfusion and resume Eliquis 5 bid once hemostasis assured. Currently on Lovenox 70 mg SQ BID 3. IV diuresis with monitoring renal function and electrolytes. 4. Continue Lopressor 75 mg TID. Currently off Ranexa, Lisinopril and Lipitor 5. Continue enteral feeds 6. Wound care George Carlson MD
[2019-02-16 13:39] LABS: ALBUMIN 1.3 g/dl (3.4-5.0); BILIRUBIN,TOTAL 0.3 mg/dL (0.2-1); BLOOD UREA NITROGEN 17.7 mg/dL (7-18); CALCIUM 8.1 mg/dL (8.5-10.1); CREATININE 0.7 mg/dL (0.55-1.3); POTASSIUM 3.4 mmol/L (3.5-5.1); TOT PROT 5.5 g/dl (6.4-8.2)
--- NOTE | 2019-02-16 14:45 | EKG ---
Test Reason : Blood Pressure : / mmHG Vent. Rate : 078 BPM Atrial Rate : 136 BPM P-R Int : 000 ms QRS Dur : 086 ms QT Int : 362 ms P-R-T Axes : 000 027 147 degrees QTc Int : 412 ms ATRIAL FIBRILLATION LOW VOLTAGE QRS NONSPECIFIC T WAVE ABNORMALITY ABNORMAL ECG WHEN COMPARED WITH ECG OF 09-FEB-2019 21:59, NO SIGNIFICANT CHANGE WAS FOUND Confirmed by DEMETRIO DE LA CRUZ MD ([id number]) on 02/16/2019 2:45:14 PM Referred By: ERIK MCKEON Confirmed By:DEMETRIO DE LA CRUZ MD
[2019-02-16] MEDS ORDERED: POTASSIUM CHLORIDE ORAL LIQUID 20 MEQ/15 ML GT ONE (15:20)
--- NOTE | 2019-02-16 16:13 | PN ---
Progress Note, Physician History of Present Illness: AWAKE ON VENT NO ACUTE DISTRESS TEMPS DOWN AFEBRILE URINE C/S CRE SACRAL WOUND C/S POLYMICROBIAL, INCLUDING VRE WBC IMPROVED - Current Medication List Current Medications: Active Medications Enoxaparin Sodium (Lovenox -) 70 mg SQ BID [facility] Last Admin: 02/16/19 10:59 Dose: 70 mg Furosemide (Lasix Injection -) 40 mg IVPUSH BID@0600,1400 [facility] Last Admin: 02/16/19 14:55 Dose: 40 mg Ceftazidime/Avibactam 2.5 gm/ (Dextrose) 250 mls @ 125 mls/hr IVPB Q8H-IV [facility]; Protocol Last Admin: 02/16/19 10:58 Dose: 125 mls/hr Insulin Aspart (Novolog Vial Sliding Scale -) 1 vial SQ ACHS [facility]; Protocol Last Admin: 02/16/19 12:21 Dose: Not Given Metoprolol Tartrate (Lopressor Injection -) 5 mg IVPUSH Q4H PRN PRN Reason: TACHYCARDIA Last Admin: 02/11/19 10:03 Dose: 5 mg Metoprolol Tartrate (Lopressor -) 75 mg PO TID [facility] Last Admin: 02/16/19 14:55 Dose: 75 mg Pantoprazole Sodium (Protonix Iv) 40 mg IVPUSH DAILY [facility] Last Admin: 02/16/19 10:59 Dose: 40 mg - Objective Vital Signs: Vital Signs Temperature 98.7 F 02/16/19 13:00 Pulse Rate 89 02/16/19 13:00 Respiratory Rate 20 02/16/19 16:08 Blood Pressure 106/45 L 02/16/19 13:00 O2 Sat by Pulse Oximetry (%) 98 02/16/19 08:41 Labs: CBC, BMP 02/16/19 12:58 02/16/19 12:58 INR, PTT INR 1.28 (0.83-1.09) H 02/09/19 20:50
--- NOTE | 2019-02-16 16:16 | PN ---
Progress Note, Physician History of Present Illness: AWAKE ON VENT NO ACUTE DISTRESS TEMPS DOWN AFEBRILE URINE C/S CRE SACRAL WOUND C/S POLYMICROBIAL, INCLUDING VRE WBC IMPROVED - Current Medication List Current Medications: Active Medications Enoxaparin Sodium (Lovenox -) 70 mg SQ BID [facility] Last Admin: 02/16/19 10:59 Dose: 70 mg Furosemide (Lasix Injection -) 40 mg IVPUSH BID@0600,1400 [facility] Last Admin: 02/16/19 14:55 Dose: 40 mg Ceftazidime/Avibactam 2.5 gm/ (Dextrose) 250 mls @ 125 mls/hr IVPB Q8H-IV [facility]; Protocol Last Admin: 02/16/19 10:58 Dose: 125 mls/hr Insulin Aspart (Novolog Vial Sliding Scale -) 1 vial SQ ACHS [facility]; Protocol Last Admin: 02/16/19 12:21 Dose: Not Given Metoprolol Tartrate (Lopressor Injection -) 5 mg IVPUSH Q4H PRN PRN Reason: TACHYCARDIA Last Admin: 02/11/19 10:03 Dose: 5 mg Metoprolol Tartrate (Lopressor -) 75 mg PO TID [facility] Last Admin: 02/16/19 14:55 Dose: 75 mg Pantoprazole Sodium (Protonix Iv) 40 mg IVPUSH DAILY [facility] Last Admin: 02/16/19 10:59 Dose: 40 mg - Objective Vital Signs: Vital Signs Temperature 98.7 F 02/16/19 13:00 Pulse Rate 89 02/16/19 13:00 Respiratory Rate 20 02/16/19 16:08 Blood Pressure 106/45 L 02/16/19 13:00 O2 Sat by Pulse Oximetry (%) 98 02/16/19 08:41 Constitutional: Yes: No Distress Eyes: Yes: Conjunctiva Clear Cardiovascular: Yes: Regular Rate and Rhythm, S1, S2 Respiratory: Yes: Diminished Gastrointestinal: Yes: Normal Bowel Sounds, Soft. No: Tenderness Edema: Yes Edema: LUE: 1+, RUE: 1+ Labs: CBC, BMP 02/16/19 12:58 02/16/19 12:58 INR, PTT INR 1.28 (0.83-1.09) H 02/09/19 20:50 Assessment/Plan UTI R/O SEPSIS SECONDARY TO UTI STAGE IV SACRAL DECUBITUS LEUKOCYTOSIS CHRONIC RESPIRATORY FAILURE CONTINUE [facility] CONTACT PRECAUTIONS
[2019-02-17] MEDS: CEFTAZIDIME/AVIBACTAM 2.5 GM in DEXTROSE 5%-WATER - 250 ML IVPB SCH ×3 (02:54→17:51)
[2019-02-17] MEDS: FUROSEMIDE 40 MG/4 ML INJECTABLE VIAL IVPUSH SCH ×2 (05:50→14:26)
[2019-02-17] MEDS: METOPROLOL TARTRATE 25 MG TABLET (FP) PO SCH ×3 (05:59→22:37)
[2019-02-17] MEDS: INSULIN SLIDING SCALE (NOVOLOG) 1 VIAL SQ SCH ×4 (06:28→22:39)
--- NOTE | 2019-02-17 09:07 | PN ---
Progress Note, Physician - Current Medication List Current Medications: Active Medications Enoxaparin Sodium (Lovenox -) 70 mg SQ BID [facility] Last Admin: 02/16/19 23:24 Dose: 70 mg Furosemide (Lasix Injection -) 40 mg IVPUSH BID@0600,1400 [facility] Last Admin: 02/17/19 05:50 Dose: 40 mg Ceftazidime/Avibactam 2.5 gm/ (Dextrose) 250 mls @ 125 mls/hr IVPB Q8H-IV [facility]; Protocol Last Admin: 02/17/19 02:54 Dose: 125 mls/hr Insulin Aspart (Novolog Vial Sliding Scale -) 1 vial SQ ACHS [facility]; Protocol Last Admin: 02/17/19 06:28 Dose: Not Given Metoprolol Tartrate (Lopressor Injection -) 5 mg IVPUSH Q4H PRN PRN Reason: TACHYCARDIA Last Admin: 02/11/19 10:03 Dose: 5 mg Metoprolol Tartrate (Lopressor -) 75 mg PO TID [facility] Last Admin: 02/17/19 05:59 Dose: 75 mg Pantoprazole Sodium (Protonix Iv) 40 mg IVPUSH DAILY [facility] Last Admin: 02/16/19 10:59 Dose: 40 mg - Objective Vital Signs: Vital Signs Temperature 98.4 F 02/17/19 06:00 Pulse Rate 99 H 02/17/19 06:00 Respiratory Rate 18 02/17/19 06:00 Blood Pressure 144/76 02/17/19 06:00 O2 Sat by Pulse Oximetry (%) 98 02/16/19 21:00 Cardiovascular: Yes: S1 Respiratory: Yes: Mechanically Ventilated Gastrointestinal: Yes: Normal Bowel Sounds, Soft Labs: CBC, BMP 02/16/19 12:58 02/16/19 12:58 INR, PTT INR 1.28 (0.83-1.09) H 02/09/19 20:50 Problem List - Problems (1) Anemia Code(s): D64.9 - ANEMIA, UNSPECIFIED Qualifiers: Anemia type: unspecified type Qualified Code(s): D64.9 - Anemia, unspecified (2) CHF exacerbation Code(s): I50.9 - HEART FAILURE, UNSPECIFIED Qualifiers: Heart failure type: unspecified Qualified Code(s): I50.9 - Heart failure, unspecified (3) Sepsis Code(s): A41.9 - SEPSIS, UNSPECIFIED ORGANISM Qualifiers: Sepsis type: sepsis due to unspecified organism Sepsis acute organ dysfunction status: without acute organ dysfunction Qualified Code(s): A41.9 - Sepsis, unspecified organism (4) UTI (urinary tract infection) Code(s): N39.0 - URINARY TRACT INFECTION, SITE NOT SPECIFIED Qualifiers: Urinary tract infection type: catheter-associated UTI Indwelling urinary catheter type: unspecified Encounter type: initial encounter Qualified Code( s): T83.511A - Infection and inflammatory reaction due to indwelling urethral catheter, initial encounter; N39.0 - Urinary tract infection, site not specified (5) A-fib Code(s): I48.91 - UNSPECIFIED ATRIAL FIBRILLATION Qualifiers: Atrial fibrillation type: persistent (6) CVA (cerebral vascular accident) Code(s): I63.9 - CEREBRAL INFARCTION, UNSPECIFIED Assessment/Plan - Problems (1) Anemia Assessment/Plan: s/p prbc GI to do EGD hold TF for egd hold lovenox AM dose Code(s): D64.9 - ANEMIA, UNSPECIFIED Qualifiers: Anemia type: unspecified type Qualified Code(s): D64.9 - Anemia, unspecified (2) Hypernatremia Assessment/Plan: recheck sodium today labs ordered ivf stopped Code(s): E87.0 - HYPEROSMOLALITY AND HYPERNATREMIA (3) Stage 4 skin ulcer of sacral region Assessment/Plan: Microbiology 02/10/19 05:30 Coccyx Gram Stain - Final 02/10/19 05:30 Coccyx Wound Culture - Preliminary Enterobacter Cloacae Proteus Species Enterococcus Faecalis avycaz ID on board Code(s): L98.429 - NON-PRESSURE CHRONIC ULCER OF BACK WITH UNSPECIFIED SEVERITY (4) UTI (urinary tract infection) Assessment/Plan: iv abx Microbiology 02/09/19 20:50 Urine - Urine Clean Catch Urine Culture - Preliminary Enterobacter Cloacae Code(s): N39.0 - URINARY TRACT INFECTION, SITE NOT SPECIFIED Qualifiers: Urinary tract infection type: catheter-associated UTI Indwelling urinary catheter type: unspecified Encounter type: initial encounter Qualified Code( s): T83.511A - Infection and inflammatory reaction due to indwelling urethral catheter, initial encounter; N39.0 - Urinary tract infection, site not specified (5) Pleural effusion Assessment/Plan: iv lasix bid check labs Code(s): J90 - PLEURAL EFFUSION, NOT ELSEWHERE CLASSIFIED (6) A-fib Assessment/Plan: on lovenox and metoprolol hold lovenox A Mdose for EGD Code(s): I48.91 - UNSPECIFIED ATRIAL FIBRILLATION Qualifiers: Atrial fibrillation type: persistent (7) Diabetes mellitus Assessment/Plan: insulin sliding scale bgm hgab1c 7.6 Code(s): E11.9 - TYPE 2 DIABETES MELLITUS WITHOUT COMPLICATIONS Qualifiers: Diabetes mellitus type: type 2
[2019-02-17] MEDS ORDERED: PT OWN MED DRAWER 7, Y5N ONE ×2 (09:15→17:27)
[2019-02-17] MEDS: ENOXAPARIN NA (PORCINE) 80 MG/0.8 ML DISP.SYRIN SQ SCH (09:18)
[2019-02-17] MEDS: PANTOPRAZOLE SODIUM 40 MG VIAL IVPUSH SCH (09:20)
[2019-02-17 09:27] LABS: MAGNESIUM 2.3 mg/dL (1.8-2.4); PHOSPHOROUS 1.9 mg/dL (2.5-4.9)
--- NOTE | 2019-02-17 11:30 | PN ---
Progress Note (short form) - Note Progress Note: PULMONARY Vented, awake. No fevers recorded. Vital Signs Period Temp Pulse Resp BP Sys/[place] Pulse Ox Last 24 Hr 97.4 F-98.7 F 79-104 18-22 106-144/45-76 98 Gen: vented, awake Heart: RRR Lung: decreased breath sounds at the bases Abd: soft, nontender Ext: + edema CBC, BMP 02/16/19 12:58 02/16/19 12:58 Active Medications Enoxaparin Sodium (Lovenox -) [address] [facility] Last Admin: 02/17/19 09:18 Dose: Not Given Furosemide (Lasix Injection -) 40 mg IVPUSH BID@0600,1400 [facility] Last Admin: 02/17/19 05:50 Dose: 40 mg Ceftazidime/Avibactam 2.5 gm/ (Dextrose) 250 mls @ 125 mls/hr IVPB Q8H-IV [facility]; Protocol Last Admin: 02/17/19 10:21 Dose: 125 mls/hr Insulin Aspart (Novolog Vial Sliding Scale -) [address] [facility]; Protocol Last Admin: 02/17/19 06:28 Dose: Not Given Metoprolol Tartrate (Lopressor Injection -) 5 mg IVPUSH Q4H PRN PRN Reason: TACHYCARDIA Last Admin: 02/11/19 10:03 Dose: 5 mg Metoprolol Tartrate (Lopressor -) [address] [facility] Last Admin: 02/17/19 05:59 Dose: 75 mg Pantoprazole Sodium (Protonix Iv) [address] [facility] Last Admin: 02/17/19 09:20 Dose: 40 mg A/P UTI Sacral Decubitus Ulcer Sepsis Volume Overload Acute on Chronic Diastolic Heart Failure Chronic Respiratory Failure h/o CVA COPD Atrial Fibrillation h/o GI Bleed HTN DM Anemia - continue antibiotics per ID - rate controlled - continue anticoagulation - monitor H/H - continue lasix - monitor urine output, creatinine - enteral feeds - DVT/GI prophylaxis
--- NOTE | 2019-02-17 13:04 | PN ---
Progress Note (short form) - Note Progress Note: Renal follow up for hypernatremia Seen and examined at the bedside awake on vent continues to have diarrhea Vital Signs Temperature 97.4 F L 02/17/19 09:16 Pulse Rate 95 H 02/17/19 09:16 Respiratory Rate 20 02/17/19 09:16 Blood Pressure 140/73 02/17/19 09:16 O2 Sat by Pulse Oximetry (%) 98 02/16/19 21:00 Intake & Output 02/14/19 02/15/19 02/16/19 02/17/19 23:59 23:59 23:59 23:59 Intake Total 4035 240 0 Output Total 1500 3800 400 Balance 4035 -1260 -3800 -400 Weight 71.781 kg 71.668 kg awake on vent, non-verbal Dec BS bilateral lung bases soft NT/ND NO LE edema, clubbing or cyanosis craven in place CBC, BMP 02/16/19 12:58 Current Medications Enoxaparin Sodium (Lovenox -) 70 mg SQ BID [facility] Last Admin: 02/17/19 09:18 Dose: Not Given Furosemide (Lasix Injection -) 40 mg IVPUSH BID@0600,1400 [facility] Last Admin: 02/17/19 05:50 Dose: 40 mg Ceftazidime/Avibactam 2.5 gm/ (Dextrose) 250 mls @ 125 mls/hr IVPB Q8H-IV [facility]; Protocol Last Admin: 02/17/19 10:21 Dose: 125 mls/hr Insulin Aspart (Novolog Vial Sliding Scale -) 1 vial SQ ACHS [facility]; Protocol Last Admin: 02/17/19 12:12 Dose: Not Given Metoprolol Tartrate (Lopressor Injection -) 5 mg IVPUSH Q4H PRN PRN Reason: TACHYCARDIA Last Admin: 02/11/19 10:03 Dose: 5 mg Metoprolol Tartrate (Lopressor -) 75 mg PO TID [facility] Last Admin: 02/17/19 05:59 Dose: 75 mg Pantoprazole Sodium (Protonix Iv) 40 mg IVPUSH DAILY [facility] Last Admin: 02/17/19 09:20 Dose: 40 mg 78 year old woman with history of recent CVA (now non-verbal), Afib on A/C, DM, Hypertension, COPD, CAD who presented from [place] with hypotension and fevers and noted to have hypernatremia. 1. Hypernatremia 2. Fever/Sepsis 3. Recent CVA 4. Anemia 5. Suspected metabolic alkalosis 6. Leukocytosis 7. Pleural effusions/CHF with preserved LVEF (ECHO 04/2018) 8. Hypophosphatemia Renal function and electrolytes stable as of yesterday, todays labs pending Continue free water via G-tube once pt is no longer NPO Continue vent support as per pulmonary on IV Lasix BID for pleural effusions Continue tube feeds Continue antibiotics as per ICU trend H/H trend renal function and electrolytes daily while on IV diuretics Give IV K-phos today Thank you Tashi Aguirre DO
[2019-02-17 13:30] LABS: CALCIUM 8.3 mg/dL (8.5-10.1); CREATININE 0.6 mg/dL (0.55-1.3); POTASSIUM 4.1 mmol/L (3.5-5.1)
[2019-02-17] MEDS ORDERED: POTASSIUM PHOSPHATE 30 MM in DEXTROSE 5%-WATER - 500 ML IVPB ONE (14:00)
[2019-02-17] MEDS ORDERED: D5-1/2NS+20 MEQ KCL - 20 MEQ/1,000 ML INFUS.BAG IV ONE (17:30)
--- NOTE | 2019-02-17 19:02 | PN ---
Progress Note, Physician Chief Complaint: Events noted Maintained on vent support via tracheostomy History of Present Illness: Patient was seen and examined. Awake. Nonverbal On vent support - Current Medication List Current Medications: Active Medications Enoxaparin Sodium (Lovenox -) 70 mg SQ BID [facility] Last Admin: 02/17/19 09:18 Dose: Not Given Furosemide (Lasix Injection -) 40 mg IVPUSH BID@0600,1400 [facility] Last Admin: 02/17/19 14:26 Dose: 40 mg Ceftazidime/Avibactam 2.5 gm/ (Dextrose) 250 mls @ 125 mls/hr IVPB Q8H-IV [facility]; Protocol Last Admin: 02/17/19 17:51 Dose: 125 mls/hr Potassium Phosphate 30 mm/ (Dextrose) 510 mls @ 62.5 mls/hr IVPB ONCE ONE Stop: 02/17/19 22:09 Last Admin: 02/17/19 14:26 Dose: 62.5 mls/hr Potassium Chloride/Dextrose/Sod Cl (D5-1/2ns+20 Meq Kcl -) 20 meq in 1,000 mls @ 75 mls/hr IV ONCE ONE Stop: 02/18/19 06:49 Insulin Aspart (Novolog Vial Sliding Scale -) 1 vial SQ ACHS [facility]; Protocol Last Admin: 02/17/19 17:27 Dose: Not Given Metoprolol Tartrate (Lopressor Injection -) 5 mg IVPUSH Q4H PRN PRN Reason: TACHYCARDIA Last Admin: 02/11/19 10:03 Dose: 5 mg Metoprolol Tartrate (Lopressor -) 75 mg PO TID [facility] Last Admin: 02/17/19 14:26 Dose: 75 mg Pantoprazole Sodium (Protonix Iv) 40 mg IVPUSH DAILY [facility] Last Admin: 02/17/19 09:20 Dose: 40 mg - Objective Vital Signs: Vital Signs Temperature 98.4 F 02/17/19 18:00 Pulse Rate 91 H 02/17/19 18:00 Respiratory Rate 20 02/17/19 18:00 Blood Pressure 155/75 02/17/19 18:00 O2 Sat by Pulse Oximetry (%) 99 02/17/19 09:00 Neck: Yes: Supple Cardiovascular: Yes: Regular Rate and Rhythm, S1, S2 Respiratory: Yes: Mechanically Ventilated Gastrointestinal: Yes: Normal Bowel Sounds, Soft. No: Tenderness Edema: Yes Edema: LLE: Trace, RLE: Trace Labs: CBC, BMP 02/16/19 12:58 02/17/19 12:30 Problem List - Problems (1) Acute and chronic respiratory failure Code(s): J96.20 - ACUTE AND CHR RESP FAILURE, UNSP W HYPOXIA OR HYPERCAPNIA (2) Anemia Code(s): D64.9 - ANEMIA, UNSPECIFIED Qualifiers: Anemia type: unspecified type Qualified Code(s): D64.9 - Anemia, unspecified (3) Pleural effusion Code(s): J90 - PLEURAL EFFUSION, NOT ELSEWHERE CLASSIFIED (4) S/P mitral valve repair Code(s): Z98.890 - OTHER SPECIFIED POSTPROCEDURAL STATES (5) Sacral decubitus ulcer Code(s): L89.159 - PRESSURE ULCER OF SACRAL REGION, UNSPECIFIED STAGE (6) Sepsis Code(s): A41.9 - SEPSIS, UNSPECIFIED ORGANISM Qualifiers: Sepsis type: sepsis due to unspecified organism Sepsis acute organ dysfunction status: without acute organ dysfunction Qualified Code(s): A41.9 - Sepsis, unspecified organism (7) Severe pulmonary arterial systolic hypertension Code(s): I27.21 - SECONDARY PULMONARY ARTERIAL HYPERTENSION (8) UTI (urinary tract infection) Code(s): N39.0 - URINARY TRACT INFECTION, SITE NOT SPECIFIED Qualifiers: Urinary tract infection type: catheter-associated UTI Indwelling urinary catheter type: unspecified Encounter type: initial encounter Qualified Code( s): T83.511A - Infection and inflammatory reaction due to indwelling urethral catheter, initial encounter; N39.0 - Urinary tract infection, site not specified (9) Ventilator dependent Code(s): Z99.11 - DEPENDENCE ON RESPIRATOR [VENTILATOR] STATUS (10) A-fib Code(s): I48.91 - UNSPECIFIED ATRIAL FIBRILLATION Qualifiers: Atrial fibrillation type: persistent (11) CAD (coronary artery disease) Code(s): I25.10 - ATHSCL HEART DISEASE OF [place] CORONARY ARTERY W/O ANG PCTRS Qualifiers: Coronary Disease-Associated Artery/Lesion type: [place] artery [place] vs. transplanted heart: [place] heart Associated angina: without angina Qualified Code(s): I25.10 - Atherosclerotic heart disease of [place] coronary artery without angina pectoris (12) CKD (chronic kidney disease) Code(s): N18.9 - CHRONIC KIDNEY DISEASE, UNSPECIFIED Qualifiers: Chronic kidney disease stage: stage 2 (mild) Qualified Code(s): N18.2 - Chronic kidney disease, stage 2 (mild) (13) CVA (cerebral vascular accident) Code(s): I63.9 - CEREBRAL INFARCTION, UNSPECIFIED (14) Demand ischemia Code(s): I24.8 - OTHER FORMS OF ACUTE ISCHEMIC HEART DISEASE (15) Diabetes mellitus Code(s): E11.9 - TYPE 2 DIABETES MELLITUS WITHOUT COMPLICATIONS Qualifiers: Diabetes mellitus type: type 2 (16) Diastolic dysfunction Code(s): I51.89 - OTHER ILL-DEFINED HEART DISEASES (17) GIB (gastrointestinal bleeding) Code(s): K92.2 - GASTROINTESTINAL HEMORRHAGE, UNSPECIFIED Qualifiers: GI bleed type/associated pathology: unspecified gastrointestinal hemorrhage type Qualified Code(s): K92.2 - Gastrointestinal hemorrhage, unspecified (18) Sick sinus syndrome Code(s): I49.5 - SICK SINUS SYNDROME (19) Sigmoid diverticulosis Code(s): K57.30 - DVRTCLOS OF LG INT W/O PERFORATION OR ABSCESS W/O BLEEDING (20) COPD (chronic obstructive pulmonary disease) Code(s): J44.9 - CHRONIC OBSTRUCTIVE PULMONARY DISEASE, UNSPECIFIED (21) HTN (hypertension) Code(s): I10 - ESSENTIAL (PRIMARY) HYPERTENSION Qualifiers: Hypertension type: essential hypertension Qualified Code(s): I10 - Essential (primary) hypertension (22) Hyperlipidemia Code(s): E78.5 - HYPERLIPIDEMIA, UNSPECIFIED Qualifiers: Hyperlipidemia type: pure hypercholesterolemia Qualified Code(s): E78.00 - Pure hypercholesterolemia, unspecified; E78.0 - Pure hypercholesterolemia (23) Pacemaker Code(s): Z95.0 - PRESENCE OF CARDIAC PACEMAKER Assessment/Plan 1. Acute on chronic diastolic heart failure 2. Chronic respiratory failure s/p trache and PEG 3. Coronary artery disease demand ischemic injury angina pectoris 4. Permanent atrial fibrillation [id number] score of 9 5. Sick sinus syndrome post permanent pacemaker implantation 6. Post mitral valve repair 7. UTI 8. Sacral decubitus ulcer Infection 9. HTN 7. DM 10. Hypercholesterolemia 11. 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 COPD 13. CKD with hypernatremia 14. Anemia post transfusion PLAN: 1. Continue antibiotics coverage 2. Monitor H/H post transfusion and resume Eliquis 5 bid once hemostasis assured. Currently on Lovenox 70 mg SQ BID 3. IV diuresis with monitoring renal function and electrolytes. 4. Continue Lopressor 75 mg TID. IV Lopressor as needed. Currently off Ranexa, Lisinopril and Lipitor 5. Continue enteral feeds 6. Wound care 7. Vent support George Carlson MD
--- NOTE | 2019-02-17 19:20 | PN ---
Progress Note, Physician History of Present Illness: AWAKE ON VENTILATOR NO ACUTE DISTRESS AFEBRILE WBC IMPROVED - Current Medication List Current Medications: Active Medications Enoxaparin Sodium (Lovenox -) 70 mg SQ BID [facility] Last Admin: 02/17/19 09:18 Dose: Not Given Furosemide (Lasix Injection -) 40 mg IVPUSH BID@0600,1400 [facility] Last Admin: 02/17/19 14:26 Dose: 40 mg Ceftazidime/Avibactam 2.5 gm/ (Dextrose) 250 mls @ 125 mls/hr IVPB Q8H-IV [facility]; Protocol Last Admin: 02/17/19 17:51 Dose: 125 mls/hr Potassium Phosphate 30 mm/ (Dextrose) 510 mls @ 62.5 mls/hr IVPB ONCE ONE Stop: 02/17/19 22:09 Last Admin: 02/17/19 14:26 Dose: 62.5 mls/hr Potassium Chloride/Dextrose/Sod Cl (D5-1/2ns+20 Meq Kcl -) 20 meq in 1,000 mls @ 75 mls/hr IV ONCE ONE Stop: 02/18/19 06:49 Insulin Aspart (Novolog Vial Sliding Scale -) 1 vial SQ ACHS [facility]; Protocol Last Admin: 02/17/19 17:27 Dose: Not Given Metoprolol Tartrate (Lopressor Injection -) 5 mg IVPUSH Q4H PRN PRN Reason: TACHYCARDIA Last Admin: 02/11/19 10:03 Dose: 5 mg Metoprolol Tartrate (Lopressor -) 75 mg PO TID [facility] Last Admin: 02/17/19 14:26 Dose: 75 mg Pantoprazole Sodium (Protonix Iv) 40 mg IVPUSH DAILY [facility] Last Admin: 02/17/19 09:20 Dose: 40 mg - Objective Vital Signs: Vital Signs Temperature 98.4 F 02/17/19 18:00 Pulse Rate 91 H 02/17/19 18:00 Respiratory Rate 20 02/17/19 18:00 Blood Pressure 155/75 02/17/19 18:00 O2 Sat by Pulse Oximetry (%) 99 02/17/19 09:00 Constitutional: Yes: No Distress Eyes: Yes: Conjunctiva Clear Cardiovascular: Yes: Regular Rate and Rhythm, S1, S2 Respiratory: Yes: Mechanically Ventilated Gastrointestinal: Yes: Normal Bowel Sounds, Soft Edema: Yes Edema: LUE: 1+, RUE: 1+ Labs: CBC, BMP 02/16/19 12:58 02/17/19 12:30 INR, PTT INR 1.28 (0.83-1.09) H 02/09/19 20:50 Assessment/Plan UTI R/O SEPSIS SECONDARY TO UTI STAGE IV SACRAL DECUBITUS LEUKOCYTOSIS CHRONIC RESPIRATORY FAILURE CONTINUE [facility] CONTACT PRECAUTIONS
[2019-02-18] MEDS ORDERED: PT OWN MED DRAWER 7, Y5N ONE ×3 (01:38→18:49)
[2019-02-18] MEDS: CEFTAZIDIME/AVIBACTAM 2.5 GM in DEXTROSE 5%-WATER - 250 ML IVPB SCH ×3 (01:43→19:06)
[2019-02-18] MEDS: INSULIN SLIDING SCALE (NOVOLOG) 1 VIAL SQ SCH ×6 (06:43→22:53)
[2019-02-18] MEDS: METOPROLOL TARTRATE 25 MG TABLET (FP) PO SCH ×3 (06:43→22:51)
[2019-02-18] MEDS: FUROSEMIDE 40 MG/4 ML INJECTABLE VIAL IVPUSH SCH ×2 (06:57→13:35)
[2019-02-18 07:46] LABS: BASO % 0.7 % (0-2.0); EOS % 4.6 % (0-4.5); HEMATOCRIT 29.3 % (32.4-45.2); HEMOGLOBIN 9.3 GM/dL (10.7-15.3); LYMPH % 15.8 % (8-40); MCH 26.6 pg (25.7-33.7); MCHC 31.6 g/dl (32.0-36.0); MEAN CELL VOLUME 84.3 fl (80-96); MEAN PLT VOLUME 9.7 fl (7.5-11.1); MONO % 6.4 % (3.8-10.2); NEUT % 72.5 % (42.8-82.8); PLATELET COUNT 432 K/MM3 (134-434); RBC 3.48 M/mm3 (3.60-5.2)
[2019-02-18 07:52] LABS: ALBUMIN 1.3 g/dl (3.4-5.0); BILIRUBIN,TOTAL 0.3 mg/dL (0.2-1); BLOOD UREA NITROGEN 13.7 mg/dL (7-18); CALCIUM 8.2 mg/dL (8.5-10.1); CREATININE 0.7 mg/dL (0.55-1.3); MAGNESIUM 2.1 mg/dL (1.8-2.4); POTASSIUM 3.9 mmol/L (3.5-5.1); TOT PROT 5.4 g/dl (6.4-8.2)
--- NOTE | 2019-02-18 09:49 | PN ---
Progress Note, Physician - Current Medication List Current Medications: Active Medications Enoxaparin Sodium (Lovenox -) 70 mg SQ BID [facility] Last Admin: 02/17/19 09:18 Dose: Not Given Furosemide (Lasix Injection -) 40 mg IVPUSH BID@0600,1400 [facility] Last Admin: 02/18/19 06:57 Dose: 40 mg Ceftazidime/Avibactam 2.5 gm/ (Dextrose) 250 mls @ 125 mls/hr IVPB Q8H-IV [facility]; Protocol Last Admin: 02/18/19 01:43 Dose: 125 mls/hr Insulin Aspart (Novolog Vial Sliding Scale -) 1 vial SQ ACHS [facility]; Protocol Last Admin: 02/18/19 06:43 Dose: Not Given Metoprolol Tartrate (Lopressor Injection -) 5 mg IVPUSH Q4H PRN PRN Reason: TACHYCARDIA Last Admin: 02/11/19 10:03 Dose: 5 mg Metoprolol Tartrate (Lopressor -) 75 mg PO TID [facility] Last Admin: 02/18/19 06:43 Dose: Not Given Pantoprazole Sodium (Protonix Iv) 40 mg IVPUSH DAILY [facility] Last Admin: 02/17/19 09:20 Dose: 40 mg - Objective Vital Signs: Vital Signs Temperature 97.1 F L 02/18/19 06:00 Pulse Rate 97 H 02/18/19 06:00 Respiratory Rate 20 02/18/19 06:00 Blood Pressure 133/68 02/18/19 06:00 O2 Sat by Pulse Oximetry (%) 99 02/17/19 21:00 Cardiovascular: Yes: S1, S2 Respiratory: Yes: Mechanically Ventilated Gastrointestinal: Yes: Normal Bowel Sounds, Soft Labs: CBC, BMP 02/18/19 06:58 02/18/19 06:58 INR, PTT INR 1.28 (0.83-1.09) H 02/09/19 20:50 Problem List - Problems (1) Anemia Code(s): D64.9 - ANEMIA, UNSPECIFIED Qualifiers: Anemia type: unspecified type Qualified Code(s): D64.9 - Anemia, unspecified (2) CHF exacerbation Code(s): I50.9 - HEART FAILURE, UNSPECIFIED Qualifiers: Heart failure type: unspecified Qualified Code(s): I50.9 - Heart failure, unspecified (3) Sepsis Code(s): A41.9 - SEPSIS, UNSPECIFIED ORGANISM Qualifiers: Sepsis type: sepsis due to unspecified organism Sepsis acute organ dysfunction status: without acute organ dysfunction Qualified Code(s): A41.9 - Sepsis, unspecified organism (4) UTI (urinary tract infection) Code(s): N39.0 - URINARY TRACT INFECTION, SITE NOT SPECIFIED Qualifiers: Urinary tract infection type: catheter-associated UTI Indwelling urinary catheter type: unspecified Encounter type: initial encounter Qualified Code( s): T83.511A - Infection and inflammatory reaction due to indwelling urethral catheter, initial encounter; N39.0 - Urinary tract infection, site not specified (5) A-fib Code(s): I48.91 - UNSPECIFIED ATRIAL FIBRILLATION Qualifiers: Atrial fibrillation type: persistent (6) CVA (cerebral vascular accident) Code(s): I63.9 - CEREBRAL INFARCTION, UNSPECIFIED Assessment/Plan - Problems (1) Anemia Assessment/Plan: s/p prbc GI to do EGD hold TF for egd hold lovenox AM dose Code(s): D64.9 - ANEMIA, UNSPECIFIED Qualifiers: Anemia type: unspecified type Qualified Code(s): D64.9 - Anemia, unspecified (2) Hypernatremia Assessment/Plan: recheck sodium today labs ordered ivf stopped Code(s): E87.0 - HYPEROSMOLALITY AND HYPERNATREMIA (3) Stage 4 skin ulcer of sacral region Assessment/Plan: Microbiology 02/10/19 05:30 Coccyx Gram Stain - Final 02/10/19 05:30 Coccyx Wound Culture - Preliminary Enterobacter [place] Proteus Species Enterococcus Faecalis avycaz-day 7 ID on board Code(s): L98.429 - NON-PRESSURE CHRONIC ULCER OF BACK WITH UNSPECIFIED SEVERITY (4) UTI (urinary tract infection) Assessment/Plan: iv abx Microbiology 02/09/19 20:50 Urine - Urine Clean Catch Urine Culture - Preliminary Enterobacter [place] Code(s): N39.0 - URINARY TRACT INFECTION, SITE NOT SPECIFIED Qualifiers: Urinary tract infection type: catheter-associated UTI Indwelling urinary catheter type: unspecified Encounter type: initial encounter Qualified Code( s): T83.511A - Infection and inflammatory reaction due to indwelling urethral catheter, initial encounter; N39.0 - Urinary tract infection, site not specified (5) Pleural effusion Assessment/Plan: iv lasix bid check labs Code(s): J90 - PLEURAL EFFUSION, NOT ELSEWHERE CLASSIFIED (6) A-fib Assessment/Plan: on lovenox and metoprolol hold lovenox A Mdose for EGD Code(s): I48.91 - UNSPECIFIED ATRIAL FIBRILLATION Qualifiers: Atrial fibrillation type: persistent (7) Diabetes mellitus Assessment/Plan: insulin sliding scale bgm [id number] 7.6 Code(s): E11.9 - TYPE 2 DIABETES MELLITUS WITHOUT COMPLICATIONS Qualifiers: Diabetes mellitus type: type 2
[2019-02-18] MEDS: PANTOPRAZOLE SODIUM 40 MG VIAL IVPUSH SCH (10:48)
[2019-02-18 13:27] LABS: INR 1.05 (0.83-1.09); PROTHROMBIN TIME (PATIENT) 12.4 SEC (9.7-13.0)
--- NOTE | 2019-02-18 14:03 | PN ---
Progress Note, Physician History of Present Illness: PULMONARY AWAKE,ALERT,-RESP DISTRESS ON VENT SUPPORT AC MODE - Current Medication List Current Medications: Active Medications Enoxaparin Sodium (Lovenox -) 70 mg SQ BID [facility] Last Admin: 02/17/19 09:18 Dose: Not Given Furosemide (Lasix Injection -) 40 mg IVPUSH BID@0600,1400 [facility] Last Admin: 02/18/19 13:35 Dose: 40 mg Ceftazidime/Avibactam 2.5 gm/ (Dextrose) 250 mls @ 125 mls/hr IVPB Q8H-IV [facility]; Protocol Last Admin: 02/18/19 10:50 Dose: 125 mls/hr Insulin Aspart (Novolog Vial Sliding Scale -) 1 vial SQ ACHS [facility]; Protocol Last Admin: 02/18/19 13:43 Dose: 8 units Metoprolol Tartrate (Lopressor Injection -) 5 mg IVPUSH Q4H PRN PRN Reason: TACHYCARDIA Last Admin: 02/11/19 10:03 Dose: 5 mg Metoprolol Tartrate (Lopressor -) 75 mg PO TID [facility] Last Admin: 02/18/19 13:36 Dose: Not Given Pantoprazole Sodium (Protonix Iv) 40 mg IVPUSH DAILY [facility] Last Admin: 02/18/19 10:48 Dose: 40 mg - Objective Vital Signs: Vital Signs Temperature 97.6 F 02/18/19 11:05 Pulse Rate 111 H 02/18/19 11:05 Respiratory Rate 20 02/18/19 11:05 Blood Pressure 142/70 02/18/19 11:05 O2 Sat by Pulse Oximetry (%) 99 02/17/19 21:00 Constitutional: Yes: Well Nourished, Calm Eyes: Yes: WNL HENT: Yes: WNL Neck: Yes: Supple (TRACH) Cardiovascular: Yes: Pulse Irregular, S1, S2 Respiratory: Yes: Diminished Gastrointestinal: Yes: Normal Bowel Sounds, Soft Extremities: Yes: WNL Edema: No Labs: CBC, BMP 02/18/19 06:58 02/18/19 06:58 INR, PTT INR 1.05 (0.83-1.09) 02/18/19 09:58 Problem List - Problems (1) Acute and chronic respiratory failure Code(s): J96.20 - ACUTE AND CHR RESP FAILURE, UNSP W HYPOXIA OR HYPERCAPNIA (2) Anemia Code(s): D64.9 - ANEMIA, UNSPECIFIED Qualifiers: Anemia type: unspecified type Qualified Code(s): D64.9 - Anemia, unspecified (3) CHF exacerbation Code(s): I50.9 - HEART FAILURE, UNSPECIFIED Qualifiers: Heart failure type: unspecified Qualified Code(s): I50.9 - Heart failure, unspecified (4) Sepsis Code(s): A41.9 - SEPSIS, UNSPECIFIED ORGANISM Qualifiers: Sepsis type: sepsis due to unspecified organism Sepsis acute organ dysfunction status: without acute organ dysfunction Qualified Code(s): A41.9 - Sepsis, unspecified organism (5) Stage 4 skin ulcer of sacral region Code(s): L98.429 - NON-PRESSURE CHRONIC ULCER OF BACK WITH UNSPECIFIED SEVERITY (6) A-fib Code(s): I48.91 - UNSPECIFIED ATRIAL FIBRILLATION Qualifiers: Atrial fibrillation type: persistent (7) CAD (coronary artery disease) Code(s): I25.10 - ATHSCL HEART DISEASE OF [place] CORONARY ARTERY W/O ANG PCTRS Qualifiers: Coronary Disease-Associated Artery/Lesion type: [place] artery [place] vs. transplanted heart: [place] heart Associated angina: without angina Qualified Code(s): I25.10 - Atherosclerotic heart disease of [place] coronary artery without angina pectoris (8) CKD (chronic kidney disease) Code(s): N18.9 - CHRONIC KIDNEY DISEASE, UNSPECIFIED Qualifiers: Chronic kidney disease stage: stage 2 (mild) Qualified Code(s): N18.2 - Chronic kidney disease, stage 2 (mild) (9) CVA (cerebral vascular accident) Code(s): I63.9 - CEREBRAL INFARCTION, UNSPECIFIED Qualifiers: CVA mechanism: embolism (10) H/O mitral valve replacement Code(s): Z95.2 - PRESENCE OF PROSTHETIC HEART VALVE (11) Ventilator dependent Code(s): Z99.11 - DEPENDENCE ON RESPIRATOR [VENTILATOR] STATUS Assessment/Plan ASSESSMENT AND PLAN: UTI Sacral Decubitus Ulcer Infection Sepsis Volume Overload Acute on Chronic Diastolic Heart Failure Chronic Respiratory Failure h/o CVA COPD Atrial Fibrillation h/o GI Bleed HTN DM Anemia - antibiotics completed - rate controlled - anticoagulation - monitor H/H - Lasix - monitor urine output, creatinine - Enteral feeds - vent support ac mode - DVT/GI prophylaxis DR SALAZAR
--- NOTE | 2019-02-18 14:05 | PN ---
Progress Note, Physician History of Present Illness: Afebrile, hemodynamics stabilizing, remains in rate-controlled afib. EGD today revealing mild patchy antral erythema otherwise unremarkable. No obvious ulcers or angioectasias seen. - Current Medication List Current Medications: Active Medications Enoxaparin Sodium (Lovenox -) 70 mg SQ BID [facility] Last Admin: 02/17/19 09:18 Dose: Not Given Furosemide (Lasix Injection -) 40 mg IVPUSH BID@0600,1400 [facility] Last Admin: 02/18/19 13:35 Dose: 40 mg Ceftazidime/Avibactam 2.5 gm/ (Dextrose) 250 mls @ 125 mls/hr IVPB Q8H-IV [facility]; Protocol Last Admin: 02/18/19 10:50 Dose: 125 mls/hr Insulin Aspart (Novolog Vial Sliding Scale -) 1 vial SQ ACHS [facility]; Protocol Last Admin: 02/18/19 13:43 Dose: 8 units Metoprolol Tartrate (Lopressor Injection -) 5 mg IVPUSH Q4H PRN PRN Reason: TACHYCARDIA Last Admin: 02/11/19 10:03 Dose: 5 mg Metoprolol Tartrate (Lopressor -) 75 mg PO TID [facility] Last Admin: 02/18/19 13:36 Dose: Not Given Pantoprazole Sodium (Protonix Iv) 40 mg IVPUSH DAILY [facility] Last Admin: 02/18/19 10:48 Dose: 40 mg - Objective Vital Signs: Vital Signs Temperature 97.6 F 02/18/19 11:05 Pulse Rate 111 H 02/18/19 11:05 Respiratory Rate 20 02/18/19 11:05 Blood Pressure 142/70 02/18/19 11:05 O2 Sat by Pulse Oximetry (%) 99 02/17/19 21:00 Constitutional: Yes: No Distress, Calm HENT: Yes: Other (Trach) Cardiovascular: Yes: Pulse Irregular Respiratory: Yes: Mechanically Ventilated, Rhonchi Gastrointestinal: Yes: Normal Bowel Sounds, Soft Edema: No Labs: CBC, BMP 02/18/19 06:58 02/18/19 06:58 INR, PTT INR 1.05 (0.83-1.09) 02/18/19 09:58 - ....Imaging Chest X-ray: Report Reviewed (Congestion) Problem List - Problems (1) Anemia Code(s): D64.9 - ANEMIA, UNSPECIFIED Qualifiers: Anemia type: unspecified type Qualified Code(s): D64.9 - Anemia, unspecified (2) CHF exacerbation Code(s): I50.9 - HEART FAILURE, UNSPECIFIED Qualifiers: Heart failure type: unspecified Qualified Code(s): I50.9 - Heart failure, unspecified (3) Sepsis Code(s): A41.9 - SEPSIS, UNSPECIFIED ORGANISM Qualifiers: Sepsis type: sepsis due to unspecified organism Sepsis acute organ dysfunction status: without acute organ dysfunction Qualified Code(s): A41.9 - Sepsis, unspecified organism (4) Stage 4 skin ulcer of sacral region Code(s): L98.429 - NON-PRESSURE CHRONIC ULCER OF BACK WITH UNSPECIFIED SEVERITY (5) UTI (urinary tract infection) Code(s): N39.0 - URINARY TRACT INFECTION, SITE NOT SPECIFIED Qualifiers: Urinary tract infection type: catheter-associated UTI Indwelling urinary catheter type: unspecified Encounter type: initial encounter Qualified Code( s): T83.511A - Infection and inflammatory reaction due to indwelling urethral catheter, initial encounter; N39.0 - Urinary tract infection, site not specified (6) A-fib Code(s): I48.91 - UNSPECIFIED ATRIAL FIBRILLATION Qualifiers: Atrial fibrillation type: persistent (7) Angiodysplasia of colon with hemorrhage Code(s): K55.21 - ANGIODYSPLASIA OF COLON WITH HEMORRHAGE (8) CAD (coronary artery disease) Code(s): I25.10 - ATHSCL HEART DISEASE OF [place] CORONARY ARTERY W/O ANG PCTRS Qualifiers: Coronary Disease-Associated Artery/Lesion type: [place] artery [place] vs. transplanted heart: [place] heart Associated angina: without angina Qualified Code(s): I25.10 - Atherosclerotic heart disease of [place] coronary artery without angina pectoris (9) CKD (chronic kidney disease) Code(s): N18.9 - CHRONIC KIDNEY DISEASE, UNSPECIFIED Qualifiers: Chronic kidney disease stage: stage 2 (mild) Qualified Code(s): N18.2 - Chronic kidney disease, stage 2 (mild) (10) CVA (cerebral vascular accident) Code(s): I63.9 - CEREBRAL INFARCTION, UNSPECIFIED Qualifiers: CVA mechanism: embolism (11) Diabetes mellitus Code(s): E11.9 - TYPE 2 DIABETES MELLITUS WITHOUT COMPLICATIONS Qualifiers: Diabetes mellitus type: type 2 (12) GIB (gastrointestinal bleeding) Code(s): K92.2 - GASTROINTESTINAL HEMORRHAGE, UNSPECIFIED Qualifiers: GI bleed type/associated pathology: unspecified gastrointestinal hemorrhage type Qualified Code(s): K92.2 - Gastrointestinal hemorrhage, unspecified (13) Hemoglobin decreased Code(s): R71.0 - PRECIPITOUS DROP IN HEMATOCRIT (14) Hypernatremia Code(s): E87.0 - HYPEROSMOLALITY AND HYPERNATREMIA (15) Diabetes mellitus Code(s): E11.9 - TYPE 2 DIABETES MELLITUS WITHOUT COMPLICATIONS Qualifiers: Diabetes mellitus type: type 2 Diabetes mellitus fpc insulin use: without terminal operations supervisor use Diabetes mellitus complication status: without complication Qualified Code(s): E11.9 - Type 2 diabetes mellitus without complications (16) H/O mitral valve replacement Code(s): Z95.2 - PRESENCE OF PROSTHETIC HEART VALVE (17) HTN (hypertension) Code(s): I10 - ESSENTIAL (PRIMARY) HYPERTENSION Qualifiers: Hypertension type: essential hypertension Qualified Code(s): I10 - Essential (primary) hypertension (18) Hyperlipidemia Code(s): E78.5 - HYPERLIPIDEMIA, UNSPECIFIED Qualifiers: Hyperlipidemia type: pure hypercholesterolemia Qualified Code(s): E78.00 - Pure hypercholesterolemia, unspecified; E78.0 - Pure hypercholesterolemia (19) Pacemaker Code(s): Z95.0 - PRESENCE OF CARDIAC PACEMAKER Assessment/Plan 02/18/2019 EGD revealing mild patchy antral erythema otherwise unremarkable. No obvious ulcers or angioectasias seen 04/30/2018 Echo: Normal LV size and fxn, severe TR RVSP 50-60 mmHg, mild MR EGD and colonoscopy in 07/2017 revealing gastritis, cecal AVM and four tubular adenomas 12/17/2016 reveal: 03/2009 acute systolic CHF and AR, R&LHc 90% distal OM1, 60% D1, preserved LV fxn, elevated LVEDP BULMARO severe posterior leaflet prolapse with severe MR->MV annuloplasty repair, afib, sinus arrest->PPM, CAD left alone. [facility] Echo: 06/28/16 normal biventricular fxn, COSMO, mod TR, MV ring Nuc stress 09/13/2016 Anterolateral ischemia/infarct SDS 3 EF 82%, abnl ecg changes 1. Acute on chronic diastolic heart failure 2. Chronic respiratory failure s/p tracheostomy and PEG 3. Coronary artery disease demand ischemic injury angina pectoris 4. Permanent atrial fibrillation [id number] score of 9 5. Sick sinus syndrome post permanent pacemaker implantation 6. Post mitral valve repair 7. UTI 8. Sacral decubitus ulcer Infection 9. HTN 7. DM 10. Hypercholesterolemia 11. 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 COPD 13. Hypernatremia resolved 14. Anemia post transfusion, h/o GI bleed PLAN: 1. Complete antibiotics coverage per ID 2. Monitor H/H post transfusion and resume Eliquis 5 bid as hemostasis assured per GI input 3. IV diuresis with monitoring diuretic response, renal function and electrolytes 4. Continue Lopressor 75 mg TID. IV Lopressor as needed. Currently off Ranexa, Lisinopril and Lipitor 5. Continue enteral feeds 6. Wound care, DVT and GI prophylaxis 7. AC mode vent support 8. As no obvious source for anemia found, colonoscopy could be considered based on prior findings of cecal AVMs, but daughter Roxie (MELVI) declines, opting for conservative measures with iron or transfusion as needed.
--- NOTE | 2019-02-18 15:59 | PN ---
Progress Note (short form) - Note Progress Note: Brief GI note EGD today revealing mild patchy antral erythema otherwise unremarkable. No obvious ulcers or angioectasias seen. See scanned endoscopy for details. As no obvious source for anemia found, colonoscopy could be considered based on prior findings of cecal AVMs. Spoke with pts daughterRoxie by phone (NOK) as requested after the procedure and discussed findings and possible colonoscopy to further r/o potential source of bleed/therapeutic intent considering prior colonoscopy findings and also potential for missed lesions if colonoscopy not pursued. She verbalized understanding and wants to avoid colonoscopy at this time, opting for conservative measures with iron or transfusion as needed. Recommendations: -Resume prior diet/tube feeds per radio operator ground -PPI daily -Check iron studies/ferritin -Iron supplement if needed -No GI contraindication to resuming a/c based on EGD findings. Discussed with pts daughter. Problem List - Problems (1) Anemia Code(s): D64.9 - ANEMIA, UNSPECIFIED Qualifiers: Anemia type: unspecified type Qualified Code(s): D64.9 - Anemia, unspecified
[2019-02-18] MEDS: APIXABAN 5 MG TABLET PO SCH (22:51)
[2019-02-19] MEDS: CEFTAZIDIME/AVIBACTAM 2.5 GM in DEXTROSE 5%-WATER - 250 ML IVPB SCH ×3 (02:27→17:51)
[2019-02-19] MEDS: METOPROLOL TARTRATE 25 MG TABLET (FP) PO SCH ×3 (06:30→23:23)
[2019-02-19] MEDS: FUROSEMIDE 40 MG/4 ML INJECTABLE VIAL IVPUSH SCH (06:31)
[2019-02-19] MEDS: INSULIN SLIDING SCALE (NOVOLOG) 1 VIAL SQ SCH ×4 (06:37→23:48)
--- NOTE | 2019-02-19 08:29 | PN ---
Progress Note, Physician - Current Medication List Current Medications: Active Medications Apixaban (Eliquis -) 5 mg PO BID [facility] Last Admin: 02/18/19 22:51 Dose: 5 mg Atorvastatin Calcium (Lipitor -) 80 mg PO HS [facility] Fluoxetine HCl (Prozac Oral Solution -) 20 mg PO DAILY [facility] Furosemide (Lasix Injection -) 40 mg IVPUSH BID@0600,1400 [facility] Last Admin: 02/19/19 06:31 Dose: 40 mg Ceftazidime/Avibactam 2.5 gm/ (Dextrose) 250 mls @ 125 mls/hr IVPB Q8H-IV [facility]; Protocol Last Admin: 02/19/19 02:27 Dose: 125 mls/hr Insulin Aspart (Novolog Vial Sliding Scale -) 1 vial SQ ACHS [facility]; Protocol Last Admin: 02/19/19 06:37 Dose: Not Given Metoprolol Tartrate (Lopressor Injection -) 5 mg IVPUSH Q4H PRN PRN Reason: TACHYCARDIA Last Admin: 02/11/19 10:03 Dose: 5 mg Metoprolol Tartrate (Lopressor -) 75 mg PO TID [facility] Last Admin: 02/19/19 06:30 Dose: 75 mg Pantoprazole Sodium (Protonix Iv) 40 mg IVPUSH DAILY [facility] Last Admin: 02/18/19 10:48 Dose: 40 mg - Objective Vital Signs: Vital Signs Temperature 97.4 F L 02/19/19 06:00 Pulse Rate 95 H 02/19/19 06:00 Respiratory Rate 18 02/19/19 06:00 Blood Pressure 145/68 02/19/19 06:00 O2 Sat by Pulse Oximetry (%) 100 02/18/19 21:00 Cardiovascular: Yes: S1, S2 Respiratory: Yes: Mechanically Ventilated Gastrointestinal: Yes: Normal Bowel Sounds, Soft Edema: No Labs: CBC, BMP 02/18/19 06:58 02/18/19 06:58 INR, PTT INR 1.05 (0.83-1.09) 02/18/19 09:58 Problem List - Problems (1) Anemia Code(s): D64.9 - ANEMIA, UNSPECIFIED Qualifiers: Anemia type: unspecified type Qualified Code(s): D64.9 - Anemia, unspecified (2) CHF exacerbation Code(s): I50.9 - HEART FAILURE, UNSPECIFIED Qualifiers: Heart failure type: unspecified Qualified Code(s): I50.9 - Heart failure, unspecified (3) Sepsis Code(s): A41.9 - SEPSIS, UNSPECIFIED ORGANISM Qualifiers: Sepsis type: sepsis due to unspecified organism Sepsis acute organ dysfunction status: without acute organ dysfunction Qualified Code(s): A41.9 - Sepsis, unspecified organism (4) UTI (urinary tract infection) Code(s): N39.0 - URINARY TRACT INFECTION, SITE NOT SPECIFIED Qualifiers: Urinary tract infection type: catheter-associated UTI Indwelling urinary catheter type: unspecified Encounter type: initial encounter Qualified Code( s): T83.511A - Infection and inflammatory reaction due to indwelling urethral catheter, initial encounter; N39.0 - Urinary tract infection, site not specified (5) A-fib Code(s): I48.91 - UNSPECIFIED ATRIAL FIBRILLATION Qualifiers: Atrial fibrillation type: persistent (6) CVA (cerebral vascular accident) Code(s): I63.9 - CEREBRAL INFARCTION, UNSPECIFIED Assessment/Plan - Problems (1) Anemia Assessment/Plan: s/p prbc GI to do EGD hold TF for egd hold lovenox AM dose Code(s): D64.9 - ANEMIA, UNSPECIFIED Qualifiers: Anemia type: unspecified type Qualified Code(s): D64.9 - Anemia, unspecified (2) Hypernatremia Assessment/Plan: recheck sodium today labs ordered ivf stopped Code(s): E87.0 - HYPEROSMOLALITY AND HYPERNATREMIA (3) Stage 4 skin ulcer of sacral region Assessment/Plan: Microbiology 02/10/19 05:30 Coccyx Gram Stain - Final 02/10/19 05:30 Coccyx Wound Culture - Preliminary Enterobacter [place]ae Proteus Species Enterococcus Faecalis avycaz-day 8 ID on board Code(s): L98.429 - NON-PRESSURE CHRONIC ULCER OF BACK WITH UNSPECIFIED SEVERITY (4) UTI (urinary tract infection) Assessment/Plan: iv abx Microbiology 02/09/19 20:50 Urine - Urine Clean Catch Urine Culture - Preliminary Enterobacter [place]ae Code(s): N39.0 - URINARY TRACT INFECTION, SITE NOT SPECIFIED Qualifiers: Urinary tract infection type: catheter-associated UTI Indwelling urinary catheter type: unspecified Encounter type: initial encounter Qualified Code( s): T83.511A - Infection and inflammatory reaction due to indwelling urethral catheter, initial encounter; N39.0 - Urinary tract infection, site not specified (5) Pleural effusion Assessment/Plan: iv lasix bid check labs Code(s): J90 - PLEURAL EFFUSION, NOT ELSEWHERE CLASSIFIED (6) A-fib Assessment/Plan: on lovenox and metoprolol Code(s): I48.91 - UNSPECIFIED ATRIAL FIBRILLATION Qualifiers: Atrial fibrillation type: persistent (7) Diabetes mellitus Assessment/Plan: insulin sliding scale bgm hgab1c 7.6 Code(s): E11.9 - TYPE 2 DIABETES MELLITUS WITHOUT COMPLICATIONS Qualifiers: Diabetes mellitus type: type 2
[2019-02-19] MEDS ORDERED: INSULIN (NOVOLOG) ASPART 100 UNITS/ML 10ML VIAL ONE (11:33)
--- NOTE | 2019-02-19 11:45 | PN ---
Progress Note, Physician History of Present Illness: Afebrile, hemodynamics stabilizing, remains in rate-controlled afib. EGD revealing mild patchy antral erythema otherwise unremarkable. No obvious ulcers or angioectasias seen. - Current Medication List Current Medications: Active Medications Apixaban (Eliquis -) 5 mg PO BID [facility] Last Admin: 02/18/19 22:51 Dose: 5 mg Atorvastatin Calcium (Lipitor -) 80 mg PO HS [facility] Fluoxetine HCl (Prozac Oral Solution -) 20 mg PO DAILY [facility] Furosemide (Lasix Injection -) 40 mg IVPUSH BID@0600,1400 [facility] Last Admin: 02/19/19 06:31 Dose: 40 mg Ceftazidime/Avibactam 2.5 gm/ (Dextrose) 250 mls @ 125 mls/hr IVPB Q8H-IV [facility]; Protocol Last Admin: 02/19/19 02:27 Dose: 125 mls/hr Insulin Aspart (Novolog Vial Sliding Scale -) 1 vial SQ ACHS [facility]; Protocol Last Admin: 02/19/19 06:37 Dose: Not Given Metoprolol Tartrate (Lopressor Injection -) 5 mg IVPUSH Q4H PRN PRN Reason: TACHYCARDIA Last Admin: 02/11/19 10:03 Dose: 5 mg Metoprolol Tartrate (Lopressor -) 75 mg PO TID [facility] Last Admin: 02/19/19 06:30 Dose: 75 mg Pantoprazole Sodium (Protonix Iv) 40 mg IVPUSH DAILY [facility] Last Admin: 02/18/19 10:48 Dose: 40 mg - Objective Vital Signs: Vital Signs Temperature 97.4 F L 02/19/19 06:00 Pulse Rate 86 02/19/19 08:41 Respiratory Rate 18 02/19/19 08:41 Blood Pressure 145/68 02/19/19 06:00 O2 Sat by Pulse Oximetry (%) 98 02/19/19 08:41 Constitutional: Yes: No Distress, Calm, Thin Neck: Yes: Supple, Other (Tracheostomy) Cardiovascular: Yes: Pulse Irregular, Murmur Respiratory: Yes: Mechanically Ventilated, Rhonchi Gastrointestinal: Yes: Normal Bowel Sounds, Soft, Other (PEG in place) Edema: Yes Edema: LLE: Trace, RLE: Trace Labs: CBC, BMP 02/18/19 06:58 02/18/19 06:58 INR, PTT INR 1.05 (0.83-1.09) 02/18/19 09:58 Problem List - Problems (1) Anemia Code(s): D64.9 - ANEMIA, UNSPECIFIED Qualifiers: Anemia type: unspecified type Qualified Code(s): D64.9 - Anemia, unspecified (2) CHF exacerbation Code(s): I50.9 - HEART FAILURE, UNSPECIFIED Qualifiers: Heart failure type: unspecified Qualified Code(s): I50.9 - Heart failure, unspecified (3) Sepsis Code(s): A41.9 - SEPSIS, UNSPECIFIED ORGANISM Qualifiers: Sepsis type: sepsis due to unspecified organism Sepsis acute organ dysfunction status: without acute organ dysfunction Qualified Code(s): A41.9 - Sepsis, unspecified organism (4) Stage 4 skin ulcer of sacral region Code(s): L98.429 - NON-PRESSURE CHRONIC ULCER OF BACK WITH UNSPECIFIED SEVERITY (5) UTI (urinary tract infection) Code(s): N39.0 - URINARY TRACT INFECTION, SITE NOT SPECIFIED Qualifiers: Urinary tract infection type: catheter-associated UTI Indwelling urinary catheter type: unspecified Encounter type: initial encounter Qualified Code( s): T83.511A - Infection and inflammatory reaction due to indwelling urethral catheter, initial encounter; N39.0 - Urinary tract infection, site not specified (6) A-fib Code(s): I48.91 - UNSPECIFIED ATRIAL FIBRILLATION Qualifiers: Atrial fibrillation type: persistent (7) Angiodysplasia of colon with hemorrhage Code(s): K55.21 - ANGIODYSPLASIA OF COLON WITH HEMORRHAGE (8) CAD (coronary artery disease) Code(s): I25.10 - ATHSCL HEART DISEASE OF [place] CORONARY ARTERY W/O ANG PCTRS Qualifiers: Coronary Disease-Associated Artery/Lesion type: [place] artery [place] vs. transplanted heart: [place] heart Associated angina: without angina Qualified Code(s): I25.10 - Atherosclerotic heart disease of [place] coronary artery without angina pectoris (9) CKD (chronic kidney disease) Code(s): N18.9 - CHRONIC KIDNEY DISEASE, UNSPECIFIED Qualifiers: Chronic kidney disease stage: stage 2 (mild) Qualified Code(s): N18.2 - Chronic kidney disease, stage 2 (mild) (10) CVA (cerebral vascular accident) Code(s): I63.9 - CEREBRAL INFARCTION, UNSPECIFIED Qualifiers: CVA mechanism: embolism (11) Diabetes mellitus Code(s): E11.9 - TYPE 2 DIABETES MELLITUS WITHOUT COMPLICATIONS Qualifiers: Diabetes mellitus type: type 2 (12) GIB (gastrointestinal bleeding) Code(s): K92.2 - GASTROINTESTINAL HEMORRHAGE, UNSPECIFIED Qualifiers: GI bleed type/associated pathology: unspecified gastrointestinal hemorrhage type Qualified Code(s): K92.2 - Gastrointestinal hemorrhage, unspecified (13) Hemoglobin decreased Code(s): R71.0 - PRECIPITOUS DROP IN HEMATOCRIT (14) Hypernatremia Code(s): E87.0 - HYPEROSMOLALITY AND HYPERNATREMIA (15) Diabetes mellitus Code(s): E11.9 - TYPE 2 DIABETES MELLITUS WITHOUT COMPLICATIONS Qualifiers: Diabetes mellitus type: type 2 Diabetes mellitus snf insulin use: without snf use Diabetes mellitus complication status: without complication Qualified Code(s): E11.9 - Type 2 diabetes mellitus without complications (16) H/O mitral valve replacement Code(s): Z95.2 - PRESENCE OF PROSTHETIC HEART VALVE (17) HTN (hypertension) Code(s): I10 - ESSENTIAL (PRIMARY) HYPERTENSION Qualifiers: Hypertension type: essential hypertension Qualified Code(s): I10 - Essential (primary) hypertension (18) Hyperlipidemia Code(s): E78.5 - HYPERLIPIDEMIA, UNSPECIFIED Qualifiers: Hyperlipidemia type: pure hypercholesterolemia Qualified Code(s): E78.00 - Pure hypercholesterolemia, unspecified; E78.0 - Pure hypercholesterolemia (19) Pacemaker Code(s): Z95.0 - PRESENCE OF CARDIAC PACEMAKER Assessment/Plan 02/18/2019 EGD revealing mild patchy antral erythema otherwise unremarkable. No obvious ulcers or angioectasias seen 04/30/2018 Echo: Normal LV size and fxn, severe TR RVSP 50-60 mmHg, mild MR EGD and colonoscopy in 07/2017 revealing gastritis, cecal AVM and four tubular adenomas 12/17/2016 reveal: 03/2009 acute systolic CHF and [place], R&LHc 90% distal OM1, 60% D1, preserved LV fxn, elevated LVEDP BULMARO severe posterior leaflet prolapse with severe MR->MV annuloplasty repair, afib, sinus arrest->PPM, CAD left alone. [facility] Echo: 04/27/17 normal biventricular fxn, COSMO, mod TR, MV ring Nuc stress 09/13/2016 Anterolateral ischemia/infarct SDS 3 EF 82%, abnl ecg changes 1. Acute on chronic diastolic heart failure 2. Chronic respiratory failure s/p tracheostomy and PEG 3. Coronary artery disease demand ischemic injury angina pectoris 4. Permanent atrial fibrillation [id number] score of 9 5. Sick sinus syndrome post permanent pacemaker implantation 6. Post mitral valve repair 7. UTI 8. Sacral decubitus ulcer Infection 9. HTN 7. DM 10. Hypercholesterolemia 11. 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 COPD 13. Hypernatremia resolved 14. Anemia post transfusion, h/o GI bleed, cecal AVMs PLAN: 1. Complete antibiotics coverage per ID 2. Monitor H/H post transfusion and resumed Eliquis 5 bid as hemostasis assured per GI input 3. Resume Lasix 20 bid with monitoring diuretic response, renal function and electrolytes 4. Continue Lopressor 75 mg TID and Lipitor 80 qd. IV Lopressor as needed. Currently off Ranexa and Lisinopril 5. Continue enteral feeds 6. Wound care, DVT and GI prophylaxis 7. AC mode vent support 8. As no obvious source for anemia found, colonoscopy could be considered based on prior findings of cecal AVMs, but daughter Roxie (MELVI) declines, opting for conservative measures with iron or transfusion as needed.
[2019-02-19] MEDS: PANTOPRAZOLE SODIUM 40 MG VIAL IVPUSH SCH (12:02)
[2019-02-19] MEDS: APIXABAN 5 MG TABLET PO SCH ×2 (12:02→23:23)
[2019-02-19] MEDS: FLUoxetine HCL 20 MG/5 ML 120 BOTTLE PO SCH (12:03)
--- NOTE | 2019-02-19 12:21 | PN ---
Progress Note (short form) - Note Progress Note: PULMONARY Vented, awake. No fevers recorded. s/p EGD. Vital Signs Period Temp Pulse Resp BP Sys/[place] Pulse Ox Last 24 Hr 97.4 F-98.5 F 86-112 18-22 128-145/67-71 98-100 Gen: vented, awake Heart: RRR Lung: decreased breath sounds at the bases Abd: soft, nontender Ext: + edema CBC, BMP 02/18/19 06:58 02/18/19 06:58 Active Medications Apixaban (Eliquis -) 5 mg PO BID [facility] Last Admin: 02/19/19 12:02 Dose: 5 mg Atorvastatin Calcium (Lipitor -) 80 mg PO HS [facility] Fluoxetine HCl (Prozac Oral Solution -) 20 mg PO DAILY [facility] Last Admin: 02/19/19 12:03 Dose: 20 mg Furosemide (Lasix Injection -) 40 mg IVPUSH BID@0600,1400 [facility] Last Admin: 02/19/19 06:31 Dose: 40 mg Furosemide (Lasix -) 20 mg PO BID@0600,1400 [facility] Ceftazidime/Avibactam 2.5 gm/ (Dextrose) 250 mls @ 125 mls/hr IVPB Q8H-IV [facility]; Protocol Last Admin: 02/19/19 12:08 Dose: 125 mls/hr Insulin Aspart (Novolog Vial Sliding Scale -) 1 vial SQ ACHS [facility]; Protocol Last Admin: 02/19/19 12:00 Dose: 8 units Metoprolol Tartrate (Lopressor Injection -) 5 mg IVPUSH Q4H PRN PRN Reason: TACHYCARDIA Last Admin: 02/11/19 10:03 Dose: 5 mg Metoprolol Tartrate (Lopressor -) 75 mg PO TID [facility] Last Admin: 02/19/19 06:30 Dose: 75 mg Pantoprazole Sodium (Protonix Iv) 40 mg IVPUSH DAILY [facility] Last Admin: 02/19/19 12:02 Dose: 40 mg A/P UTI Sacral Decubitus Ulcer Sepsis Volume Overload Acute on Chronic Diastolic Heart Failure Chronic Respiratory Failure h/o CVA COPD Atrial Fibrillation h/o GI Bleed HTN DM Anemia - continue antibiotics per ID - rate controlled - resume anticoagulation - monitor H/H - continue lasix - monitor urine output, creatinine - enteral feeds - DVT/GI prophylaxis
--- NOTE | 2019-02-19 12:23 | PN ---
Progress Note (short form) - Note Progress Note: Renal follow up for hypernatremia Seen and examined at the bedside awake on vent continues to have loose stool via rectal tube no overnight events at the bedside Vital Signs Temperature 97.4 F L 02/19/19 06:00 Pulse Rate 86 02/19/19 08:41 Respiratory Rate 18 02/19/19 12:13 Blood Pressure 145/68 02/19/19 06:00 O2 Sat by Pulse Oximetry (%) 98 02/19/19 08:41 Intake & Output 02/16/19 02/17/19 02/18/19 02/19/19 23:59 23:59 23:59 23:59 Intake Total 250 950 250 Output Total 3800 2100 4364 900 Balance -6100 -1062 -0285 -650 Weight 71.242 kg awake on vent, non-verbal Dec BS bilateral lung bases soft NT/ND NO LE edema, clubbing or cyanosis craven in place CBC, BMP 02/18/19 06:58 02/18/19 06:58 Current Medications Apixaban (Eliquis -) 5 mg PO BID [facility] Last Admin: 02/19/19 12:02 Dose: 5 mg Atorvastatin Calcium (Lipitor -) 80 mg PO HS [facility] Fluoxetine HCl (Prozac Oral Solution -) 20 mg PO DAILY [facility] Last Admin: 02/19/19 12:03 Dose: 20 mg Furosemide (Lasix Injection -) 40 mg IVPUSH BID@0600,1400 [facility] Last Admin: 02/19/19 06:31 Dose: 40 mg Furosemide (Lasix -) 20 mg PO BID@0600,1400 [facility] Ceftazidime/Avibactam 2.5 gm/ (Dextrose) 250 mls @ 125 mls/hr IVPB Q8H-IV [facility]; Protocol Last Admin: 02/19/19 12:08 Dose: 125 mls/hr Insulin Aspart (Novolog Vial Sliding Scale -) 1 vial SQ ACHS [facility]; Protocol Last Admin: 02/19/19 12:00 Dose: 8 units Metoprolol Tartrate (Lopressor Injection -) 5 mg IVPUSH Q4H PRN PRN Reason: TACHYCARDIA Last Admin: 02/11/19 10:03 Dose: 5 mg Metoprolol Tartrate (Lopressor -) 75 mg PO TID [facility] Last Admin: 02/19/19 06:30 Dose: 75 mg Pantoprazole Sodium (Protonix Iv) 40 mg IVPUSH DAILY [facility] Last Admin: 02/19/19 12:02 Dose: 40 mg 78 year old woman with history of recent CVA (now non-verbal), Afib on A/C, DM, Hypertension, COPD, CAD who presented from [place] with hypotension and fevers and noted to have hypernatremia. 1. Hypernatremia 2. Fever/Sepsis 3. Recent CVA 4. Anemia 5. Suspected metabolic alkalosis 6. Leukocytosis 7. Pleural effusions/CHF with preserved LVEF (ECHO 04/2018) 8. Hypophosphatemia no new labs today clinically stable Continue free water via G-tube Continue vent support as per pulmonary on IV Lasix BID for pleural effusions, CXR 02/17 shows persistent effusions. Can check CXR in AM tomorrow. Continue tube feeds Continue antibiotics as per ICU trend H/H Thank you Tashi Aguirre DO
[2019-02-19] MEDS: FUROSEMIDE 20 MG TABLET (FP) PO SCH (14:57)
[2019-02-19] MEDS: ATORVASTATIN CA 80 MG TABLET (FP) PO SCH (23:23)
[2019-02-20] MEDS: CEFTAZIDIME/AVIBACTAM 2.5 GM in DEXTROSE 5%-WATER - 250 ML IVPB SCH ×3 (02:35→17:30)
[2019-02-20] MEDS: FUROSEMIDE 20 MG TABLET (FP) PO SCH ×2 (06:39→15:06)
[2019-02-20] MEDS: METOPROLOL TARTRATE 25 MG TABLET (FP) PO SCH ×3 (06:39→22:49)
[2019-02-20] MEDS: INSULIN SLIDING SCALE (NOVOLOG) 1 VIAL SQ SCH ×4 (06:42→23:31)
[2019-02-20 08:46] LABS: BLOOD UREA NITROGEN 15.9 mg/dL (7-18); CALCIUM 8.1 mg/dL (8.5-10.1); CREATININE 0.7 mg/dL (0.55-1.3); MAGNESIUM 2.3 mg/dL (1.8-2.4); PHOSPHOROUS 2.2 mg/dL (2.5-4.9); POTASSIUM 4.1 mmol/L (3.5-5.1)
[2019-02-20] MEDS ORDERED: PT OWN MED DRAWER 7, Y5N ONE (08:57)
[2019-02-20] MEDS: FLUoxetine HCL 20 MG/5 ML 120 BOTTLE PO SCH (09:04)
[2019-02-20] MEDS: APIXABAN 5 MG TABLET PO SCH ×2 (09:04→22:49)
[2019-02-20] MEDS: PANTOPRAZOLE SODIUM 40 MG VIAL IVPUSH SCH (09:04)
--- NOTE | 2019-02-20 09:57 | PN ---
Progress Note, Physician Chief Complaint: Pleural Effusion Afib Stage 4 Ulcer sacral region History of Present Illness: Previous notes and events reviewed mechanically ventilated NAD no leukocytosis afebrile EGD 02/18 - Current Medication List Current Medications: Active Medications Apixaban (Eliquis -) 5 mg PO BID [facility] Last Admin: 02/20/19 09:04 Dose: 5 mg Atorvastatin Calcium (Lipitor -) 80 mg PO HS [facility] Last Admin: 02/19/19 23:23 Dose: 80 mg Fluoxetine HCl (Prozac Oral Solution -) 20 mg PO DAILY [facility] Last Admin: 02/20/19 09:04 Dose: 20 mg Furosemide (Lasix -) 20 mg PO BID@0600,1400 [facility] Last Admin: 02/20/19 06:39 Dose: 20 mg Ceftazidime/Avibactam 2.5 gm/ (Dextrose) 250 mls @ 125 mls/hr IVPB Q8H-IV [facility]; Protocol Last Admin: 02/20/19 09:20 Dose: 125 mls/hr Insulin Aspart (Novolog Vial Sliding Scale -) 1 vial SQ ACHS [facility]; Protocol Last Admin: 02/20/19 06:42 Dose: 4 units Metoprolol Tartrate (Lopressor Injection -) 5 mg IVPUSH Q4H PRN PRN Reason: TACHYCARDIA Last Admin: 02/11/19 10:03 Dose: 5 mg Metoprolol Tartrate (Lopressor -) 75 mg PO TID [facility] Last Admin: 02/20/19 06:39 Dose: 75 mg Pantoprazole Sodium (Protonix Iv) 40 mg IVPUSH DAILY [facility] Last Admin: 02/20/19 09:04 Dose: 40 mg Potassium Phos/Sodium Phos (Phos-Nak Packet -) 1 packet GT TID [facility] Stop: 02/21/19 06:01 - Objective Vital Signs: Vital Signs Temperature 97.8 F 02/20/19 06:00 Pulse Rate 81 02/20/19 08:27 Respiratory Rate 19 02/20/19 08:25 Blood Pressure 123/67 02/20/19 06:00 O2 Sat by Pulse Oximetry (%) 100 02/20/19 08:27 Constitutional: Yes: No Distress, Calm Eyes: Yes: Conjunctiva Clear HENT: Yes: Atraumatic Neck: Yes: Other (trach) Cardiovascular: Yes: Regular Rate and Rhythm Respiratory: Yes: Regular, Diminished, Mechanically Ventilated Gastrointestinal: Yes: Normal Bowel Sounds, Soft, Other (Gtube) Genitourinary: Yes: Incontinence Musculoskeletal: Yes: Muscle Weakness Extremities: Yes: WNL Edema: Yes Edema: LUE: 2+, RUE: 2+ Neurological: Yes: Pre-Existing Deficit Labs: CBC, BMP 02/18/19 06:58 02/20/19 06:00 INR, PTT INR 1.05 (0.83-1.09) 02/18/19 09:58 Microbiology 02/09/19 20:50 Blood - Peripheral Venous Blood Culture - Final NO GROWTH AFTER 5 DAYS INCUBATION 02/09/19 20:50 Blood - Peripheral Venous Blood Culture - Final NO GROWTH AFTER 5 DAYS INCUBATION 02/10/19 05:30 Coccyx Gram Stain - Final 02/10/19 05:30 Coccyx Wound Culture - Final Enterobacter Cloacae Proteus Mirabilis Enterococcus Faecalis 02/09/19 20:50 Urine - Urine Clean Catch Urine Culture - Final Enterobacter Cloacae Problem List - Problems (1) Acute and chronic respiratory failure Assessment/Plan: -Pulm on board -mechanically ventilated -keep SpO2 >90% Code(s): J96.20 - ACUTE AND CHR RESP FAILURE, UNSP W HYPOXIA OR HYPERCAPNIA (2) Anemia Assessment/Plan: -Hg 9.3 -monitor Hg daily, transfuse for Hg <7.0 to avoid fluid overload -GI on board -EGD on 02/18/19 shows mild patchy antral erythema, no obvious ulcers -Stool OB positive Code(s): D64.9 - ANEMIA, UNSPECIFIED Qualifiers: Anemia type: unspecified type Qualified Code(s): D64.9 - Anemia, unspecified (3) Pleural effusion Assessment/Plan: -Pulm on board -Furosemide -keep SpO2 >90% -CXR moderate bilateral pleural effusion with vascular congestive changes Code(s): J90 - PLEURAL EFFUSION, NOT ELSEWHERE CLASSIFIED (4) Sepsis Assessment/Plan: -ID on board -Avycaz -BC neg -UC positive, Sacral wound culture positive -no leukocytosis -afebrile -LA 1.5 Code(s): A41.9 - SEPSIS, UNSPECIFIED ORGANISM Qualifiers: Sepsis type: sepsis due to unspecified organism Sepsis acute organ dysfunction status: without acute organ dysfunction Qualified Code(s): A41.9 - Sepsis, unspecified organism (5) Stage 4 skin ulcer of sacral region Assessment/Plan: -Sacral wound culture positive -ID on board -Azactam -no leukocytosis -air mattress -turn q2h -offloading -pack wound with moist kerlix and cover with OPTIfoam -daily dressing changes Code(s): L98.429 - NON-PRESSURE CHRONIC ULCER OF BACK WITH UNSPECIFIED SEVERITY (6) A-fib Assessment/Plan: -Eliquis and Metoprolol Code(s): I48.91 - UNSPECIFIED ATRIAL FIBRILLATION Qualifiers: Atrial fibrillation type: persistent (7) Diabetes mellitus Assessment/Plan: -BGM ACHS -HgA1c 7.6% -ISS Code(s): E11.9 - TYPE 2 DIABETES MELLITUS WITHOUT COMPLICATIONS Qualifiers: Diabetes mellitus type: type 2 (8) GIB (gastrointestinal bleeding) Assessment/Plan: -Hg 9.3 -monitor Hg daily, transfuse for Hg <7.0 to avoid fluid overload -GI on board -EGD on 02/18/19 shows mild patchy antral erythema, no obvious ulcers -Stool OB positive Code(s): K92.2 - GASTROINTESTINAL HEMORRHAGE, UNSPECIFIED Qualifiers: GI bleed type/associated pathology: unspecified gastrointestinal hemorrhage type Qualified Code(s): K92.2 - Gastrointestinal hemorrhage, unspecified (9) UTI (urinary tract infection) Assessment/Plan: -ID on board -UC positive -no leukocytosis -afebrile -Avycaz Code(s): N39.0 - URINARY TRACT INFECTION, SITE NOT SPECIFIED Qualifiers: Urinary tract infection type: acute cystitis Hematuria presence: with hematuria Qualified Code(s): N30.01 - Acute cystitis with hematuria (10) CAD (coronary artery disease) Assessment/Plan: -Atorvastatin Code(s): I25.10 - ATHSCL HEART DISEASE OF [place] CORONARY ARTERY W/O ANG PCTRS Qualifiers: Coronary Disease-Associated Artery/Lesion type: [place] artery [place] vs. transplanted heart: [place] heart Associated angina: without angina Qualified Code(s): I25.10 - Atherosclerotic heart disease of [place] coronary artery without angina pectoris (11) COPD (chronic obstructive pulmonary disease) Assessment/Plan: -Pulm on board -mechanically ventilated -keep SpO2 >90% Code(s): J44.9 - CHRONIC OBSTRUCTIVE PULMONARY DISEASE, UNSPECIFIED (12) Hyperlipidemia Assessment/Plan: -Atorvastatin Code(s): E78.5 - HYPERLIPIDEMIA, UNSPECIFIED Qualifiers: Hyperlipidemia type: pure hypercholesterolemia Qualified Code(s): E78.00 - Pure hypercholesterolemia, unspecified; E78.0 - Pure hypercholesterolemia Assessment/Plan see problem list
--- NOTE | 2019-02-20 11:07 | PN ---
Progress Note (short form) - Note Progress Note: Renal follow up for hypernatremia Seen and examined at the bedside on vent no overnight events on G-tube feeds making urine still having loose stools as per nurse Vital Signs Temperature 97.8 F 02/20/19 06:00 Pulse Rate 81 02/20/19 08:27 Respiratory Rate 19 02/20/19 08:25 Blood Pressure 123/67 02/20/19 06:00 O2 Sat by Pulse Oximetry (%) 100 02/20/19 08:27 Intake & Output 02/17/19 02/18/19 02/19/19 02/20/19 23:59 23:59 23:59 23:59 Intake Total 535 012 0843 1100 Output Total 2100 2425 2350 200 Balance -1850 -1475 -1005 900 Weight 71.242 kg awake on vent, non-verbal Dec BS bilateral lung bases soft NT/ND NO LE edema, clubbing or cyanosis craven in place CBC, BMP 02/18/19 06:58 02/20/19 06:00 Current Medications Apixaban (Eliquis -) 5 mg PO BID [facility] Last Admin: 02/20/19 09:04 Dose: 5 mg Atorvastatin Calcium (Lipitor -) 80 mg PO HS [facility] Last Admin: 02/19/19 23:23 Dose: 80 mg Fluoxetine HCl (Prozac Oral Solution -) 20 mg PO DAILY [facility] Last Admin: 02/20/19 09:04 Dose: 20 mg Furosemide (Lasix -) 20 mg PO BID@0600,1400 [facility] Last Admin: 02/20/19 06:39 Dose: 20 mg Ceftazidime/Avibactam 2.5 gm/ (Dextrose) 250 mls @ 125 mls/hr IVPB Q8H-IV [facility]; Protocol Last Admin: 02/20/19 09:20 Dose: 125 mls/hr Insulin Aspart (Novolog Vial Sliding Scale -) 1 vial SQ ACHS [facility]; Protocol Last Admin: 02/20/19 06:42 Dose: 4 units Metoprolol Tartrate (Lopressor Injection -) 5 mg IVPUSH Q4H PRN PRN Reason: TACHYCARDIA Last Admin: 02/11/19 10:03 Dose: 5 mg Metoprolol Tartrate (Lopressor -) 75 mg PO TID [facility] Last Admin: 02/20/19 06:39 Dose: 75 mg Pantoprazole Sodium (Protonix Iv) 40 mg IVPUSH DAILY [facility] Last Admin: 02/20/19 09:04 Dose: 40 mg Potassium Phos/Sodium Phos (Phos-Nak Packet -) 1 packet GT TID [facility] Stop: 02/21/19 06:01 78 year old woman with history of recent CVA (now non-verbal), Afib on A/C, DM, Hypertension, COPD, CAD who presented from [place] with hypotension and fevers and noted to have hypernatremia. 1. Hypernatremia 2. Fever/Sepsis 3. Recent CVA 4. Anemia 5. Suspected metabolic alkalosis 6. Leukocytosis 7. Pleural effusions/CHF with preserved LVEF (ECHO 04/2018) 8. Hypophosphatemia Renal function and serum sodium are improved and stable continue tube feeds and free water via G-tube Continue vent support as per pulmonary CXR shows improvement in pulmonary congestion, now on oral diuretics on IV Ceftazidine trend H/H supplement phos via G-tube Will follow up as needed please call with any questions or concerns Thank you Tashi Aguirre DO
--- NOTE | 2019-02-20 11:31 | PN ---
Progress Note, Physician History of Present Illness: Afebrile, hemodynamics stable, remains in rate-controlled afib. EGD revealing mild patchy antral erythema otherwise unremarkable. No obvious ulcers or angioectasias seen. - Current Medication List Current Medications: Active Medications Apixaban (Eliquis -) 5 mg PO BID [facility] Last Admin: 02/20/19 09:04 Dose: 5 mg Atorvastatin Calcium (Lipitor -) 80 mg PO HS [facility] Last Admin: 02/19/19 23:23 Dose: 80 mg Fluoxetine HCl (Prozac Oral Solution -) 20 mg PO DAILY [facility] Last Admin: 02/20/19 09:04 Dose: 20 mg Furosemide (Lasix -) 20 mg PO BID@0600,1400 [facility] Last Admin: 02/20/19 06:39 Dose: 20 mg Ceftazidime/Avibactam 2.5 gm/ (Dextrose) 250 mls @ 125 mls/hr IVPB Q8H-IV [facility]; Protocol Last Admin: 02/20/19 09:20 Dose: 125 mls/hr Insulin Aspart (Novolog Vial Sliding Scale -) 1 vial SQ ACHS [facility]; Protocol Last Admin: 02/20/19 11:25 Dose: 8 units Metoprolol Tartrate (Lopressor Injection -) 5 mg IVPUSH Q4H PRN PRN Reason: TACHYCARDIA Last Admin: 02/11/19 10:03 Dose: 5 mg Metoprolol Tartrate (Lopressor -) 75 mg PO TID [facility] Last Admin: 02/20/19 06:39 Dose: 75 mg Pantoprazole Sodium (Protonix Iv) 40 mg IVPUSH DAILY [facility] Last Admin: 02/20/19 09:04 Dose: 40 mg Potassium Phos/Sodium Phos (Phos-Nak Packet -) 1 packet GT TID [facility] Stop: 02/21/19 06:01 - Objective Vital Signs: Vital Signs Temperature 97.8 F 02/20/19 06:00 Pulse Rate 81 02/20/19 08:27 Respiratory Rate 19 02/20/19 08:25 Blood Pressure 123/67 02/20/19 06:00 O2 Sat by Pulse Oximetry (%) 100 02/20/19 08:27 Constitutional: Yes: No Distress, Calm, Thin HENT: Yes: Other (Tracheostomy) Cardiovascular: Yes: Pulse Irregular Respiratory: Yes: Mechanically Ventilated, Rhonchi Gastrointestinal: Yes: Normal Bowel Sounds, Soft, Other (PEG in place) Edema: Yes Edema: LLE: Trace, RLE: Trace Labs: CBC, BMP 02/18/19 06:58 02/20/19 06:00 INR, PTT INR 1.05 (0.83-1.09) 02/18/19 09:58 - ....Imaging Chest X-ray: Report Reviewed (Improved aeration) Problem List - Problems (1) Anemia Code(s): D64.9 - ANEMIA, UNSPECIFIED Qualifiers: Anemia type: unspecified type Qualified Code(s): D64.9 - Anemia, unspecified (2) CHF exacerbation Code(s): I50.9 - HEART FAILURE, UNSPECIFIED Qualifiers: Heart failure type: unspecified Qualified Code(s): I50.9 - Heart failure, unspecified (3) Sepsis Code(s): A41.9 - SEPSIS, UNSPECIFIED ORGANISM Qualifiers: Sepsis type: sepsis due to unspecified organism Sepsis acute organ dysfunction status: without acute organ dysfunction Qualified Code(s): A41.9 - Sepsis, unspecified organism (4) Stage 4 skin ulcer of sacral region Code(s): L98.429 - NON-PRESSURE CHRONIC ULCER OF BACK WITH UNSPECIFIED SEVERITY (5) UTI (urinary tract infection) Code(s): N39.0 - URINARY TRACT INFECTION, SITE NOT SPECIFIED Qualifiers: Urinary tract infection type: catheter-associated UTI Indwelling urinary catheter type: unspecified Encounter type: initial encounter Qualified Code( s): T83.511A - Infection and inflammatory reaction due to indwelling urethral catheter, initial encounter; N39.0 - Urinary tract infection, site not specified (6) A-fib Code(s): I48.91 - UNSPECIFIED ATRIAL FIBRILLATION Qualifiers: Atrial fibrillation type: persistent (7) Angiodysplasia of colon with hemorrhage Code(s): K55.21 - ANGIODYSPLASIA OF COLON WITH HEMORRHAGE (8) CAD (coronary artery disease) Code(s): I25.10 - ATHSCL HEART DISEASE OF [place] CORONARY ARTERY W/O ANG PCTRS Qualifiers: Coronary Disease-Associated Artery/Lesion type: [place] artery [place] vs. transplanted heart: [place] heart Associated angina: without angina Qualified Code(s): I25.10 - Atherosclerotic heart disease of [place] coronary artery without angina pectoris (9) CKD (chronic kidney disease) Code(s): N18.9 - CHRONIC KIDNEY DISEASE, UNSPECIFIED Qualifiers: Chronic kidney disease stage: stage 2 (mild) Qualified Code(s): N18.2 - Chronic kidney disease, stage 2 (mild) (10) CVA (cerebral vascular accident) Code(s): I63.9 - CEREBRAL INFARCTION, UNSPECIFIED Qualifiers: CVA mechanism: embolism (11) Diabetes mellitus Code(s): E11.9 - TYPE 2 DIABETES MELLITUS WITHOUT COMPLICATIONS Qualifiers: Diabetes mellitus type: type 2 (12) GIB (gastrointestinal bleeding) Code(s): K92.2 - GASTROINTESTINAL HEMORRHAGE, UNSPECIFIED Qualifiers: GI bleed type/associated pathology: unspecified gastrointestinal hemorrhage type Qualified Code(s): K92.2 - Gastrointestinal hemorrhage, unspecified (13) Hemoglobin decreased Code(s): R71.0 - PRECIPITOUS DROP IN HEMATOCRIT (14) Diabetes mellitus Code(s): E11.9 - TYPE 2 DIABETES MELLITUS WITHOUT COMPLICATIONS Qualifiers: Diabetes mellitus type: type 2 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: without senior living use Diabetes mellitus complication status: without complication Qualified Code(s): E11.9 - Type 2 diabetes mellitus without complications (15) H/O mitral valve replacement Code(s): Z95.2 - PRESENCE OF PROSTHETIC HEART VALVE (16) HTN (hypertension) Code(s): I10 - ESSENTIAL (PRIMARY) HYPERTENSION Qualifiers: Hypertension type: essential hypertension Qualified Code(s): I10 - Essential (primary) hypertension (17) Hyperlipidemia Code(s): E78.5 - HYPERLIPIDEMIA, UNSPECIFIED Qualifiers: Hyperlipidemia type: pure hypercholesterolemia Qualified Code(s): E78.00 - Pure hypercholesterolemia, unspecified; E78.0 - Pure hypercholesterolemia (18) Pacemaker Code(s): Z95.0 - PRESENCE OF CARDIAC PACEMAKER Assessment/Plan 02/18/2019 EGD revealing mild patchy antral erythema otherwise unremarkable. No obvious ulcers or angioectasias seen 04/30/2018 Echo: Normal LV size and fxn, severe TR RVSP 50-60 mmHg, mild MR EGD and colonoscopy in 07/2017 revealing gastritis, cecal AVM and four tubular adenomas 12/17/2016 reveal: 03/2009 acute systolic CHF and GA, R&LHc 90% distal OM1, 60% D1, preserved LV fxn, elevated LVEDP [place] severe posterior leaflet prolapse with severe MR->MV annuloplasty repair, afib, sinus arrest->PPM, CAD left alone. [facility] Echo: 06/28/16 normal biventricular fxn, COSMO, mod TR, MV ring Nuc stress 09/13/2016 Anterolateral ischemia/infarct SDS 3 EF 82%, abnl ecg changes 1. Acute on chronic diastolic heart failure resolving 2. Chronic respiratory failure s/p tracheostomy and PEG 3. Coronary artery disease demand ischemic injury angina pectoris 4. Permanent atrial fibrillation [id number] score of 9 5. Sick sinus syndrome post permanent pacemaker implantation 6. Post mitral valve repair 7. UTI 8. Sacral decubitus ulcer Infection 9. HTN 7. DM 10. Hypercholesterolemia 11. 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 COPD 13. Hypernatremia resolved 14. Anemia post transfusion, h/o GI bleed, cecal AVMs PLAN: 1. Complete antibiotics coverage per ID 2. Monitor H/H post transfusion and continue Eliquis 5 bid as hemostasis assured per GI input 3. Resumed Lasix 20 bid with monitoring diuretic response, renal function and electrolytes 4. Continue Lopressor 75 mg TID and Lipitor 80 qd. IV Lopressor as needed. Currently off Ranexa and Lisinopril 5. Continue enteral feeds 6. Wound care, DVT and GI prophylaxis 7. AC mode vent support 8. As no obvious source for anemia found, colonoscopy could be considered based on prior findings of cecal AVMs, but daughter Roxie (NOK) declines, opting for conservative measures with iron or transfusion as needed.
--- NOTE | 2019-02-20 11:32 | PN ---
Progress Note (short form) - Note Progress Note: Vented, awake. No fevers recorded. No acute events overnight. Intake & Output 02/17/19 02/18/19 02/19/19 02/20/19 23:59 23:59 23:59 23:59 Intake Total 043 141 9569 1100 Output Total 2100 2425 2350 200 Balance -1850 -1475 -1005 900 Weight 157 lb 1 oz Last Vital Signs Temp Pulse Resp BP Pulse Ox 97.8 F 81 19 123/67 100 02/20/19 06:00 02/20/19 08:27 02/20/19 08:25 02/20/19 06:00 02/20/19 08:27 Active Medications Apixaban (Eliquis -) 5 mg PO BID [facility] Last Admin: 02/20/19 09:04 Dose: 5 mg Atorvastatin Calcium (Lipitor -) 80 mg PO HS [facility] Last Admin: 02/19/19 23:23 Dose: 80 mg Fluoxetine HCl (Prozac Oral Solution -) 20 mg PO DAILY [facility] Last Admin: 02/20/19 09:04 Dose: 20 mg Furosemide (Lasix -) 20 mg PO BID@0600,1400 [facility] Last Admin: 02/20/19 06:39 Dose: 20 mg Ceftazidime/Avibactam 2.5 gm/ (Dextrose) 250 mls @ 125 mls/hr IVPB Q8H-IV [facility]; Protocol Last Admin: 02/20/19 09:20 Dose: 125 mls/hr Insulin Aspart (Novolog Vial Sliding Scale -) 1 vial SQ ACHS [facility]; Protocol Last Admin: 02/20/19 11:25 Dose: 8 units Metoprolol Tartrate (Lopressor Injection -) 5 mg IVPUSH Q4H PRN PRN Reason: TACHYCARDIA Last Admin: 02/11/19 10:03 Dose: 5 mg Metoprolol Tartrate (Lopressor -) 75 mg PO TID [facility] Last Admin: 02/20/19 06:39 Dose: 75 mg Pantoprazole Sodium (Protonix Iv) 40 mg IVPUSH DAILY [facility] Last Admin: 02/20/19 09:04 Dose: 40 mg Potassium Phos/Sodium Phos (Phos-Nak Packet -) 1 packet GT TID [facility] Stop: 02/21/19 06:01 Gen: vented, awake Heart: RRR Lung: decreased breath sounds at the bases Abd: soft, nontender Ext: + edema Laboratory Results - last 24 hr 02/19/19 02/19/19 02/19/19 11:57 16:31 23:47 Sodium Potassium Chloride Carbon Dioxide Anion Gap BUN Creatinine Est GFR (CKD-EPI)AfAm Est GFR (CKD-EPI)NonAf POC Glucometer 303 218 210 Random Glucose Calcium Phosphorus Magnesium 02/20/19 02/20/19 02/20/19 06:00 06:40 11:21 Sodium 137 Potassium 4.1 Chloride 104 Carbon Dioxide 24 Anion Gap 8 BUN 15.9 Creatinine 0.7 Est GFR (CKD-EPI)AfAm 97.54 Est GFR (CKD-EPI)NonAf 84.16 POC Glucometer 247 323 Random Glucose 280 H Calcium 8.1 L Phosphorus 2.2 L Magnesium 2.3 A/P UTI Sacral Decubitus Ulcer Sepsis Volume Overload Acute on Chronic Diastolic Heart Failure Chronic Respiratory Failure h/o CVA COPD Atrial Fibrillation h/o GI Bleed HTN DM Anemia - continue antibiotics per ID - rate controlled - AC - monitor H/H - continue lasix - monitor urine output, creatinine - enteral feeds - GI prophylaxis Dr Stover
--- NOTE | 2019-02-20 15:01 | CONS ---
INFECTIOUS DISEASE CONSULTATION DATE OF CONSULTATION: DATE OF DICTATION: 02/11/2019 HISTORY OF PRESENT ILLNESS: The patient is a 78-year-old, female who is evaluated for sepsis. History was obtained from the chart, as well as the patient's who was present at the time of the examination. She is 78 years old. She is a resident of a nursing facility. She was recently hospitalized at [facility], where her course was complicated by respiratory failure, requiring tracheostomy. At the care home, she was noted to be hypotensive and febrile. She was transferred to the emergency room, on February 09, 2019. She was evaluated in the emergency room, where cultures were obtained. She was empirically treated with Zosyn. She is awake; however, she is not verbally responsive. The is . He states that she has developed a stage IV sacral decubitus ulcer and is receiving care for that. She is unable to offer any additional history or offer any complaints. PAST MEDICAL HISTORY: Positive for coronary artery disease, atrial fibrillation, diabetes mellitus, hypertension, hyperlipidemia, COPD, gastrointestinal bleeding, stroke. PAST SURGICAL HISTORY: Status post coronary artery bypass graft, permanent pacemaker. ALLERGIES: No known allergies. MEDICATIONS: Eliquis, Lipitor, Feosol, Protonix, Prozac, Lasix, Glucophage, Lopressor, Januvia, Flomax, lisinopril, Ranexa. SOCIAL HISTORY: She resides in a alf facility. Nonsmoker. Nondrinker. Dependent in activities of daily living. SYSTEMS REVIEW: Neurologic: Positive for stroke. Cardiac: Positive for atrial fibrillation. Respiratory: Chronic respiratory failure. Gastrointestinal: Negative vomiting or diarrhea. Genitourinary: Positive for urinary tract infection. LABORATORY DATA: White count 19.0, hematocrit 28.4, platelets 350. Creatinine 0.7. Blood culture is negative. Urine culture growing a lactose bareback rider. Chest x-ray shows a left pleural effusion. PHYSICAL EXAMINATION: General: On exam, she is awake and responsive. She is in no acute distress. Vital Signs: Temperature is 98.3, blood pressure 114/49, pulse 106 regular, respirations 18 per minute, T-maximum 100.5. Eyes: Sclerae are anicteric. Heart: Heart sounds S1, S2. Neck: Tracheostomy in place. Lungs: Diminished breath sounds bilaterally. Abdomen: Soft and nontender. Extremities: Negative for edema. IMPRESSION: 1. Urinary tract infection. Possible sepsis, secondary to urinary tract infection. 2. Stage IV sacral decubitus ulcer. 3. Status post cerebrovascular accident. 4. Marked leukocytosis. 5. Respiratory failure. 6. Chronic obstructive pulmonary disease. Await sepsis workup. Empiric antibiotic coverage of care home-acquired pathogens with Zosyn. Supportive measures. Will follow. Thank you for the kind referral. SHARMAINE PARR M.D. [id number]
[2019-02-20] MEDS: NAPH,MB-DB/K PH,MBDB POWDER PACKET GT SCH ×2 (15:07→22:49)
[2019-02-20 16:10] VITALS: BMI 28.7
[2019-02-20] MEDS: ATORVASTATIN CA 80 MG TABLET (FP) PO SCH (22:49)
[2019-02-20] MEDS ORDERED: ALBUTEROL SO4 2.5/IPRATROPIUM 0.5 INH SOL 3 ML VIAL.NEB. NEB ONE (22:54)
[2019-02-21] MEDS: CEFTAZIDIME/AVIBACTAM 2.5 GM in DEXTROSE 5%-WATER - 250 ML IVPB SCH ×3 (02:41→17:38)
[2019-02-21] MEDS: METOPROLOL TARTRATE 25 MG TABLET (FP) PO SCH ×3 (05:43→21:10)
[2019-02-21] MEDS: FUROSEMIDE 20 MG TABLET (FP) PO SCH ×2 (05:43→14:26)
[2019-02-21] MEDS: NAPH,MB-DB/K PH,MBDB POWDER PACKET GT SCH (05:43)
[2019-02-21] MEDS: INSULIN SLIDING SCALE (NOVOLOG) 1 VIAL SQ SCH ×4 (06:40→21:11)
[2019-02-21 09:00] LABS: HEMATOCRIT 27.4 % (32.4-45.2); HEMOGLOBIN 8.6 GM/dL (10.7-15.3); MCH 26.3 pg (25.7-33.7); MCHC 31.4 g/dl (32.0-36.0); MEAN CELL VOLUME 83.7 fl (80-96); MEAN PLT VOLUME 9.7 fl (7.5-11.1); PLATELET COUNT 363 K/MM3 (134-434); RBC 3.28 M/mm3 (3.60-5.2); RDW 20.3 % (11.6-15.6); WHITE BLOOD COUNT 9.2 K/mm3 (4.0-10.0)
[2019-02-21 09:38] LABS: ALBUMIN 1.1 g/dl (3.4-5.0); BILIRUBIN,TOTAL 0.3 mg/dL (0.2-1); BLOOD UREA NITROGEN 19.1 mg/dL (7-18); CALCIUM 8.2 mg/dL (8.5-10.1); CREATININE 0.6 mg/dL (0.55-1.3); POTASSIUM 3.9 mmol/L (3.5-5.1); TOT PROT 5.1 g/dl (6.4-8.2)
[2019-02-21] MEDS: APIXABAN 5 MG TABLET PO SCH ×2 (10:41→21:10)
[2019-02-21] MEDS: PANTOPRAZOLE SODIUM 40 MG VIAL IVPUSH SCH (10:41)
[2019-02-21] MEDS ORDERED: PT OWN MED DRAWER 7, Y5N ONE ×2 (10:43→17:11)
--- NOTE | 2019-02-21 11:17 | PN ---
Progress Note, Physician Chief Complaint: Pleural Effusion Afib Stage 4 Ulcer sacral region History of Present Illness: mechanically ventilated NAD no leukocytosis afebrile EGD 02/18 - Current Medication List Current Medications: Active Medications Apixaban (Eliquis -) 5 mg PO BID [facility] Last Admin: 02/21/19 10:41 Dose: 5 mg Atorvastatin Calcium (Lipitor -) 80 mg PO HS [facility] Last Admin: 02/20/19 22:49 Dose: 80 mg Fluoxetine HCl (Prozac Oral Solution -) 20 mg PO DAILY [facility] Last Admin: 02/20/19 09:04 Dose: 20 mg Furosemide (Lasix -) 20 mg PO BID@0600,1400 [facility] Last Admin: 02/21/19 05:43 Dose: 20 mg Ceftazidime/Avibactam 2.5 gm/ (Dextrose) 250 mls @ 125 mls/hr IVPB Q8H-IV [facility]; Protocol Last Admin: 02/21/19 10:41 Dose: 125 mls/hr Insulin Aspart (Novolog Vial Sliding Scale -) 1 vial SQ ACHS [facility]; Protocol Last Admin: 02/21/19 06:40 Dose: 6 units Metoprolol Tartrate (Lopressor Injection -) 5 mg IVPUSH Q4H PRN PRN Reason: TACHYCARDIA Last Admin: 02/11/19 10:03 Dose: 5 mg Metoprolol Tartrate (Lopressor -) 75 mg PO TID [facility] Last Admin: 02/21/19 05:43 Dose: 75 mg Pantoprazole Sodium (Protonix Iv) 40 mg IVPUSH DAILY [facility] Last Admin: 02/21/19 10:41 Dose: 40 mg - Objective Vital Signs: Vital Signs Temperature 98.0 F 02/21/19 05:58 Pulse Rate 84 02/21/19 05:58 Respiratory Rate 19 02/21/19 08:18 Blood Pressure 155/66 02/21/19 05:58 O2 Sat by Pulse Oximetry (%) 100 02/20/19 21:00 Labs: CBC, BMP 02/21/19 07:35 02/21/19 07:35 INR, PTT INR 1.05 (0.83-1.09) 02/18/19 09:58 Assessment/Plan (1) Acute and chronic respiratory failure Assessment/Plan: -Pulm on board -mechanically ventilated -keep SpO2 >90% Code(s): J96.20 - ACUTE AND CHR RESP FAILURE, UNSP W HYPOXIA OR HYPERCAPNIA (2) Anemia Assessment/Plan: -monitor Hg daily, transfuse for Hg <7.0 to avoid fluid overload -Stool OB positive -GI on board -EGD on 02/18/19 shows mild patchy antral erythema, no obvious ulcers Code(s): D64.9 - ANEMIA, UNSPECIFIED Qualifiers: Anemia type: unspecified type Qualified Code(s): D64.9 - Anemia, unspecified (3) Pleural effusion Assessment/Plan: -Pulm on board -Furosemide -keep SpO2 >90% -CXR moderate bilateral pleural effusion with vascular congestive changes Code(s): J90 - PLEURAL EFFUSION, NOT ELSEWHERE CLASSIFIED (4) Sepsis Assessment/Plan: -ID on board -Avycaz -BC neg -Cultures: Microbiology 02/09/19 20:50 Blood - Peripheral Venous Blood Culture - Final NO GROWTH AFTER 5 DAYS INCUBATION 02/09/19 20:50 Blood - Peripheral Venous Blood Culture - Final NO GROWTH AFTER 5 DAYS INCUBATION 02/10/19 05:30 Coccyx Gram Stain - Final 02/10/19 05:30 Coccyx Wound Culture - Final Enterobacter Cloacae Proteus Mirabilis Enterococcus Faecalis 02/09/19 20:50 Urine - Urine Clean Catch Urine Culture - Final Enterobacter Cloacae -no leukocytosis -afebrile Code(s): A41.9 - SEPSIS, UNSPECIFIED ORGANISM Qualifiers: Sepsis type: sepsis due to unspecified organism Sepsis acute organ dysfunction status: without acute organ dysfunction Qualified Code(s): A41.9 - Sepsis, unspecified organism (5) Stage 4 skin ulcer of sacral region Assessment/Plan: -Sacral wound culture positive -ID on board -Azactam -no leukocytosis -air mattress -turn q2h -offloading -pack wound with moist kerlix and cover with OPTIfoam -daily dressing changes Code(s): L98.429 - NON-PRESSURE CHRONIC ULCER OF BACK WITH UNSPECIFIED SEVERITY (6) A-fib Assessment/Plan: -Eliquis and Metoprolol Code(s): I48.91 - UNSPECIFIED ATRIAL FIBRILLATION Qualifiers: Atrial fibrillation type: persistent (7) Diabetes mellitus Assessment/Plan: -BGM ACHS -HgA1c 7.6% -ISS Code(s): E11.9 - TYPE 2 DIABETES MELLITUS WITHOUT COMPLICATIONS Qualifiers: Diabetes mellitus type: type 2 (8) GIB (gastrointestinal bleeding) Assessment/Plan: -monitor Hg daily, transfuse for Hg <7.0 to avoid fluid overload -GI on board -EGD on 02/18/19 shows mild patchy antral erythema, no obvious ulcers -Stool OB positive Code(s): K92.2 - GASTROINTESTINAL HEMORRHAGE, UNSPECIFIED Qualifiers: GI bleed type/associated pathology: unspecified gastrointestinal hemorrhage type Qualified Code(s): K92.2 - Gastrointestinal hemorrhage, unspecified (9) UTI (urinary tract infection) Assessment/Plan: -ID on board -UC positive -no leukocytosis -afebrile -Avycaz Code(s): N39.0 - URINARY TRACT INFECTION, SITE NOT SPECIFIED Qualifiers: Urinary tract infection type: acute cystitis Hematuria presence: with hematuria Qualified Code(s): N30.01 - Acute cystitis with hematuria (10) CAD (coronary artery disease) Assessment/Plan: -Atorvastatin Code(s): I25.10 - ATHSCL HEART DISEASE OF [place] CORONARY ARTERY W/O ANG PCTRS Qualifiers: Coronary Disease-Associated Artery/Lesion type: [place] artery [place] vs. transplanted heart: [place] heart Associated angina: without angina Qualified Code(s): I25.10 - Atherosclerotic heart disease of [place] coronary artery without angina pectoris (11) COPD (chronic obstructive pulmonary disease) Assessment/Plan: -Pulm on board -mechanically ventilated -keep SpO2 >90% Code(s): J44.9 - CHRONIC OBSTRUCTIVE PULMONARY DISEASE, UNSPECIFIED (12) Hyperlipidemia Assessment/Plan: -Atorvastatin Code(s): E78.5 - HYPERLIPIDEMIA, UNSPECIFIED Qualifiers: Hyperlipidemia type: pure hypercholesterolemia Qualified Code(s): E78.00 - Pure hypercholesterolemia, unspecified; E78.0 - Pure hypercholesterolemia Assessment/Plan see problem list
[2019-02-21] MEDS: FLUoxetine HCL 20 MG/5 ML 120 BOTTLE PO SCH (11:48)
--- NOTE | 2019-02-21 12:29 | PN ---
Progress Note, Physician History of Present Illness: Afebrile, hemodynamics stable, remains in rate-controlled afib. EGD revealing mild patchy antral erythema otherwise unremarkable. No obvious ulcers or angioectasias seen. - Current Medication List Current Medications: Active Medications Apixaban (Eliquis -) 5 mg PO BID [facility] Last Admin: 02/21/19 10:41 Dose: 5 mg Atorvastatin Calcium (Lipitor -) 80 mg PO HS [facility] Last Admin: 02/20/19 22:49 Dose: 80 mg Fluoxetine HCl (Prozac Oral Solution -) 20 mg PO DAILY [facility] Last Admin: 02/21/19 11:48 Dose: 20 mg Furosemide (Lasix -) 20 mg PO BID@0600,1400 [facility] Last Admin: 02/21/19 05:43 Dose: 20 mg Ceftazidime/Avibactam 2.5 gm/ (Dextrose) 250 mls @ 125 mls/hr IVPB Q8H-IV [facility]; Protocol Last Admin: 02/21/19 10:41 Dose: 125 mls/hr Insulin Aspart (Novolog Vial Sliding Scale -) 1 vial SQ ACHS [facility]; Protocol Last Admin: 02/21/19 12:02 Dose: 6 units Metoprolol Tartrate (Lopressor Injection -) 5 mg IVPUSH Q4H PRN PRN Reason: TACHYCARDIA Last Admin: 02/11/19 10:03 Dose: 5 mg Metoprolol Tartrate (Lopressor -) 75 mg PO TID [facility] Last Admin: 02/21/19 05:43 Dose: 75 mg Nystatin (Nystop Powder -) 1 applic TP TID [facility] Pantoprazole Sodium (Protonix Iv) 40 mg IVPUSH DAILY [facility] Last Admin: 02/21/19 10:41 Dose: 40 mg - Objective Vital Signs: Vital Signs Temperature 98.0 F 02/21/19 05:58 Pulse Rate 84 02/21/19 05:58 Respiratory Rate 18 02/21/19 11:52 Blood Pressure 155/66 02/21/19 05:58 O2 Sat by Pulse Oximetry (%) 100 02/20/19 21:00 Constitutional: Yes: No Distress, Calm Neck: Yes: Other (Tracheostomy) Respiratory: Yes: Mechanically Ventilated, Rhonchi Gastrointestinal: Yes: Normal Bowel Sounds, Soft, Other (PEG in place) Edema: Yes Edema: LUE: 1+, RUE: 1+, LLE: Trace, RLE: Trace Labs: CBC, BMP 02/21/19 07:35 02/21/19 07:35 INR, PTT INR 1.05 (0.83-1.09) 02/18/19 09:58 Problem List - Problems (1) Anemia Code(s): D64.9 - ANEMIA, UNSPECIFIED Qualifiers: Anemia type: unspecified type Qualified Code(s): D64.9 - Anemia, unspecified (2) CHF exacerbation Code(s): I50.9 - HEART FAILURE, UNSPECIFIED Qualifiers: Heart failure type: unspecified Qualified Code(s): I50.9 - Heart failure, unspecified (3) Sepsis Code(s): A41.9 - SEPSIS, UNSPECIFIED ORGANISM Qualifiers: Sepsis type: sepsis due to unspecified organism Sepsis acute organ dysfunction status: without acute organ dysfunction Qualified Code(s): A41.9 - Sepsis, unspecified organism (4) Stage 4 skin ulcer of sacral region Code(s): L98.429 - NON-PRESSURE CHRONIC ULCER OF BACK WITH UNSPECIFIED SEVERITY (5) UTI (urinary tract infection) Code(s): N39.0 - URINARY TRACT INFECTION, SITE NOT SPECIFIED Qualifiers: Urinary tract infection type: catheter-associated UTI Indwelling urinary catheter type: unspecified Encounter type: initial encounter Qualified Code( s): T83.511A - Infection and inflammatory reaction due to indwelling urethral catheter, initial encounter; N39.0 - Urinary tract infection, site not specified (6) A-fib Code(s): I48.91 - UNSPECIFIED ATRIAL FIBRILLATION Qualifiers: Atrial fibrillation type: persistent (7) Angiodysplasia of colon with hemorrhage Code(s): K55.21 - ANGIODYSPLASIA OF COLON WITH HEMORRHAGE (8) CAD (coronary artery disease) Code(s): I25.10 - ATHSCL HEART DISEASE OF [place] CORONARY ARTERY W/O ANG PCTRS Qualifiers: Coronary Disease-Associated Artery/Lesion type: [place] artery [place] vs. transplanted heart: [place] heart Associated angina: without angina Qualified Code(s): I25.10 - Atherosclerotic heart disease of [place] coronary artery without angina pectoris (9) CKD (chronic kidney disease) Code(s): N18.9 - CHRONIC KIDNEY DISEASE, UNSPECIFIED Qualifiers: Chronic kidney disease stage: stage 2 (mild) Qualified Code(s): N18.2 - Chronic kidney disease, stage 2 (mild) (10) CVA (cerebral vascular accident) Code(s): I63.9 - CEREBRAL INFARCTION, UNSPECIFIED Qualifiers: CVA mechanism: embolism (11) Diabetes mellitus Code(s): E11.9 - TYPE 2 DIABETES MELLITUS WITHOUT COMPLICATIONS Qualifiers: Diabetes mellitus type: type 2 (12) GIB (gastrointestinal bleeding) Code(s): K92.2 - GASTROINTESTINAL HEMORRHAGE, UNSPECIFIED Qualifiers: GI bleed type/associated pathology: unspecified gastrointestinal hemorrhage type Qualified Code(s): K92.2 - Gastrointestinal hemorrhage, unspecified (13) Hemoglobin decreased Code(s): R71.0 - PRECIPITOUS DROP IN HEMATOCRIT (14) Diabetes mellitus Code(s): E11.9 - TYPE 2 DIABETES MELLITUS WITHOUT COMPLICATIONS Qualifiers: Diabetes mellitus type: type 2 Diabetes mellitus fpc insulin use: 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 Diabetes mellitus complication status: without complication Qualified Code(s): E11.9 - Type 2 diabetes mellitus without complications (15) H/O mitral valve replacement Code(s): Z95.2 - PRESENCE OF PROSTHETIC HEART VALVE (16) HTN (hypertension) Code(s): I10 - ESSENTIAL (PRIMARY) HYPERTENSION Qualifiers: Hypertension type: essential hypertension Qualified Code(s): I10 - Essential (primary) hypertension (17) Hyperlipidemia Code(s): E78.5 - HYPERLIPIDEMIA, UNSPECIFIED Qualifiers: Hyperlipidemia type: pure hypercholesterolemia Qualified Code(s): E78.00 - Pure hypercholesterolemia, unspecified; E78.0 - Pure hypercholesterolemia (18) Pacemaker Code(s): Z95.0 - PRESENCE OF CARDIAC PACEMAKER Assessment/Plan 02/18/2019 EGD revealing mild patchy antral erythema otherwise unremarkable. No obvious ulcers or angioectasias seen 04/30/2018 Echo: Normal LV size and fxn, severe TR RVSP 50-60 mmHg, mild MR EGD and colonoscopy in 07/2017 revealing gastritis, cecal AVM and four tubular adenomas 12/17/2016 reveal: 03/2009 acute systolic CHF and MO, R&LHc 90% distal OM1, 60% D1, preserved LV fxn, elevated LVEDP BUL[place] severe posterior leaflet prolapse with severe MR->MV annuloplasty repair, afib, sinus arrest->PPM, CAD left alone. [facility] Echo: 06/28/16 normal biventricular fxn, COSMO, mod TR, MV ring Nuc stress 09/13/2016 Anterolateral ischemia/infarct SDS 3 EF 82%, abnl ecg changes 1. Acute on chronic diastolic heart failure resolving 2. Chronic respiratory failure s/p tracheostomy and PEG 3. Coronary artery disease demand ischemic injury angina pectoris 4. Permanent atrial fibrillation [id number] score of 9 5. Sick sinus syndrome post permanent pacemaker implantation 6. Post mitral valve repair 7. UTI 8. Sacral decubitus ulcer Infection 9. HTN 7. DM 10. Hypercholesterolemia 11. 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 COPD 13. Hypernatremia resolved 14. Anemia post transfusion, h/o GI bleed, cecal AVMs PLAN: 1. Complete antibiotics coverage per ID 2. Monitor H/H post transfusion and continue Eliquis 5 bid as hemostasis assured per GI input 3. Resumed Lasix 20 bid with monitoring diuretic response, renal function and electrolytes 4. Continue Lopressor 75 mg TID and Lipitor 80 qd, resume lisinopril 10 qd. IV Lopressor as needed. Currently off Ranexa. 5. Continue enteral feeds 6. Wound care, DVT and GI prophylaxis 7. AC mode vent support 8. As no obvious source for anemia found, colonoscopy could be considered based on prior findings of cecal AVMs, but daughter Roxie (MELVI) declines, opting for conservative measures with iron or transfusion as needed.
--- NOTE | 2019-02-21 14:03 | PN ---
Progress Note (short form) - Note Progress Note: PULMONARY Vented, awake. No fevers recorded. Vital Signs Period Temp Pulse Resp BP Sys/[place] Pulse Ox Last 24 Hr 98.0 F-98.8 F 74-92 18-20 135-155/60-67 100 Gen: vented, awake Heart: RRR Lung: decreased breath sounds at the bases Abd: soft, nontender Ext: + edema CBC, BMP 02/21/19 07:35 02/21/19 07:35 Active Medications Apixaban (Eliquis -) 5 mg PO BID [facility] Last Admin: 02/21/19 10:41 Dose: 5 mg Atorvastatin Calcium (Lipitor -) 80 mg PO HS [facility] Last Admin: 02/20/19 22:49 Dose: 80 mg Fluoxetine HCl (Prozac Oral Solution -) 20 mg PO DAILY [facility] Last Admin: 02/21/19 11:48 Dose: 20 mg Furosemide (Lasix -) 20 mg PO BID@0600,1400 [facility] Last Admin: 02/21/19 05:43 Dose: 20 mg Ceftazidime/Avibactam 2.5 gm/ (Dextrose) 250 mls @ 125 mls/hr IVPB Q8H-IV [facility]; Protocol Last Admin: 02/21/19 10:41 Dose: 125 mls/hr Insulin Aspart (Novolog Vial Sliding Scale -) 1 vial SQ ACHS [facility]; Protocol Last Admin: 02/21/19 12:02 Dose: 6 units Lisinopril (Prinivil) 10 mg PEG DAILY [facility] Metoprolol Tartrate (Lopressor Injection -) 5 mg IVPUSH Q4H PRN PRN Reason: TACHYCARDIA Last Admin: 02/11/19 10:03 Dose: 5 mg Metoprolol Tartrate (Lopressor -) 75 mg PO TID [facility] Last Admin: 02/21/19 05:43 Dose: 75 mg Nystatin (Nystop Powder -) 1 applic TP TID [facility] Pantoprazole Sodium (Protonix Iv) 40 mg IVPUSH DAILY [facility] Last Admin: 02/21/19 10:41 Dose: 40 mg A/P UTI Sacral Decubitus Ulcer Sepsis Volume Overload Acute on Chronic Diastolic Heart Failure Chronic Respiratory Failure h/o CVA COPD Atrial Fibrillation h/o GI Bleed HTN DM Anemia - continue antibiotics per ID - rate controlled - resume anticoagulation - monitor H/H - continue lasix - monitor urine output, creatinine - enteral feeds - DVT/GI prophylaxis
[2019-02-21] MEDS: NYSTATIN POWDER 100,000 UNITS/GM - 15 GM TOPICAL POWDER TP SCH ×2 (14:26→21:11)
[2019-02-21] MEDS ORDERED: INSULIN (NOVOLOG) ASPART 100 UNITS/ML 10ML VIAL ONE (20:37)
[2019-02-21] MEDS: ATORVASTATIN CA 80 MG TABLET (FP) PO SCH (21:10)
[2019-02-22] MEDS ORDERED: PT OWN MED DRAWER 7, Y5N ONE ×2 (00:15→17:00)
[2019-02-22] MEDS: CEFTAZIDIME/AVIBACTAM 2.5 GM in DEXTROSE 5%-WATER - 250 ML IVPB SCH ×3 (01:08→17:36)
[2019-02-22] MEDS: NYSTATIN POWDER 100,000 UNITS/GM - 15 GM TOPICAL POWDER TP SCH ×3 (05:32→22:06)
[2019-02-22] MEDS: METOPROLOL TARTRATE 25 MG TABLET (FP) PO SCH ×3 (05:32→22:06)
[2019-02-22] MEDS: FUROSEMIDE 20 MG TABLET (FP) PO SCH ×2 (05:32→15:33)
[2019-02-22] MEDS: INSULIN SLIDING SCALE (NOVOLOG) 1 VIAL SQ SCH ×4 (06:39→22:05)
--- NOTE | 2019-02-22 10:07 | PN ---
Progress Note, Physician Chief Complaint: Pleural Effusion Afib Stage 4 Ulcer sacral region History of Present Illness: mechanically ventilated NAD no leukocytosis afebrile EGD 02/18 - Current Medication List Current Medications: Active Medications Apixaban (Eliquis -) 5 mg PO BID [facility] Last Admin: 02/21/19 21:10 Dose: 5 mg Atorvastatin Calcium (Lipitor -) 80 mg PO HS [facility] Last Admin: 02/21/19 21:10 Dose: 80 mg Fluoxetine HCl (Prozac Oral Solution -) 20 mg PO DAILY [facility] Last Admin: 02/21/19 11:48 Dose: 20 mg Furosemide (Lasix -) 20 mg PO BID@0600,1400 [facility] Last Admin: 02/22/19 05:32 Dose: 20 mg Ceftazidime/Avibactam 2.5 gm/ (Dextrose) 250 mls @ 125 mls/hr IVPB Q8H-IV [facility]; Protocol Last Admin: 02/22/19 01:08 Dose: 125 mls/hr Insulin Aspart (Novolog Vial Sliding Scale -) 1 vial SQ ACHS [facility]; Protocol Last Admin: 02/22/19 06:39 Dose: 8 units Lisinopril (Prinivil) 10 mg PEG DAILY [facility] Metoprolol Tartrate (Lopressor Injection -) 5 mg IVPUSH Q4H PRN PRN Reason: TACHYCARDIA Last Admin: 02/11/19 10:03 Dose: 5 mg Metoprolol Tartrate (Lopressor -) 75 mg PO TID [facility] Last Admin: 02/22/19 05:32 Dose: 75 mg Nystatin (Nystop Powder -) 1 applic TP TID [facility] Last Admin: 02/22/19 05:32 Dose: 1 applic Pantoprazole Sodium (Protonix Iv) 40 mg IVPUSH DAILY [facility] Last Admin: 02/21/19 10:41 Dose: 40 mg - Objective Vital Signs: Vital Signs Temperature 98.4 F 02/22/19 09:02 Pulse Rate 82 02/22/19 09:02 Respiratory Rate 18 02/22/19 09:02 Blood Pressure 131/57 L 02/22/19 09:02 O2 Sat by Pulse Oximetry (%) 100 02/21/19 21:00 Constitutional: Yes: Well Nourished, No Distress, Calm Cardiovascular: Yes: Regular Rate and Rhythm Respiratory: Yes: Regular, Mechanically Ventilated Gastrointestinal: Yes: WNL Genitourinary: Yes: [place] Present Musculoskeletal: Yes: WNL Extremities: Yes: WNL Edema: Yes Edema: RUE: 1+ Peripheral Pulses WNL: No Neurological: Yes: Pre-Existing Deficit Labs: CBC, BMP 02/21/19 07:35 02/21/19 07:35 INR, PTT INR 1.05 (0.83-1.09) 02/18/19 09:58 Assessment/Plan (1) Acute and chronic respiratory failure Assessment/Plan: -Pulm on board -mechanically ventilated -keep SpO2 >90% Code(s): J96.20 - ACUTE AND CHR RESP FAILURE, UNSP W HYPOXIA OR HYPERCAPNIA (2) Anemia Assessment/Plan: -monitor Hg daily, transfuse for Hg <7.0 to avoid fluid overload -Stool OB positive -GI on board -EGD on 02/18/19 shows mild patchy antral erythema, no obvious ulcers Code(s): D64.9 - ANEMIA, UNSPECIFIED Qualifiers: Anemia type: unspecified type Qualified Code(s): D64.9 - Anemia, unspecified (3) Pleural effusion Assessment/Plan: -Pulm on board -Furosemide -keep SpO2 >90% -CXR moderate bilateral pleural effusion with vascular congestive changes Code(s): J90 - PLEURAL EFFUSION, NOT ELSEWHERE CLASSIFIED (4) Sepsis Assessment/Plan: -ID on board -Avycaz -BC neg -Cultures: Microbiology 02/09/19 20:50 Blood - Peripheral Venous Blood Culture - Final NO GROWTH AFTER 5 DAYS INCUBATION 02/09/19 20:50 Blood - Peripheral Venous Blood Culture - Final NO GROWTH AFTER 5 DAYS INCUBATION 02/10/19 05:30 Coccyx Gram Stain - Final 02/10/19 05:30 Coccyx Wound Culture - Final Enterobacter Cloacae Proteus Mirabilis Enterococcus Faecalis 02/09/19 20:50 Urine - Urine Clean Catch Urine Culture - Final Enterobacter Cloacae -no leukocytosis -afebrile Code(s): A41.9 - SEPSIS, UNSPECIFIED ORGANISM Qualifiers: Sepsis type: sepsis due to unspecified organism Sepsis acute organ dysfunction status: without acute organ dysfunction Qualified Code(s): A41.9 - Sepsis, unspecified organism (5) Stage 4 skin ulcer of sacral region Assessment/Plan: -Sacral wound culture positive -ID on board -Azactam -no leukocytosis -air mattress -turn q2h -offloading -pack wound with moist kerlix and cover with OPTIfoam -daily dressing changes Code(s): L98.429 - NON-PRESSURE CHRONIC ULCER OF BACK WITH UNSPECIFIED SEVERITY (6) A-fib Assessment/Plan: -Eliquis and Metoprolol Code(s): I48.91 - UNSPECIFIED ATRIAL FIBRILLATION Qualifiers: Atrial fibrillation type: persistent (7) Diabetes mellitus Assessment/Plan: -BGM ACHS -HgA1c 7.6% -ISS Code(s): E11.9 - TYPE 2 DIABETES MELLITUS WITHOUT COMPLICATIONS Qualifiers: Diabetes mellitus type: type 2 (8) GIB (gastrointestinal bleeding) Assessment/Plan: -monitor Hg daily, transfuse for Hg <7.0 to avoid fluid overload -GI on board -EGD on 02/18/19 shows mild patchy antral erythema, no obvious ulcers -Stool OB positive Code(s): K92.2 - GASTROINTESTINAL HEMORRHAGE, UNSPECIFIED Qualifiers: GI bleed type/associated pathology: unspecified gastrointestinal hemorrhage type Qualified Code(s): K92.2 - Gastrointestinal hemorrhage, unspecified (9) UTI (urinary tract infection) Assessment/Plan: -ID on board -UC positive -no leukocytosis -afebrile -Avycaz Code(s): N39.0 - URINARY TRACT INFECTION, SITE NOT SPECIFIED Qualifiers: Urinary tract infection type: acute cystitis Hematuria presence: with hematuria Qualified Code(s): N30.01 - Acute cystitis with hematuria (10) CAD (coronary artery disease) Assessment/Plan: -Atorvastatin Code(s): I25.10 - ATHSCL HEART DISEASE OF [place] CORONARY ARTERY W/O ANG PCTRS Qualifiers: Coronary Disease-Associated Artery/Lesion type: [place] artery [place] vs. transplanted heart: [place] heart Associated angina: without angina Qualified Code(s): I25.10 - Atherosclerotic heart disease of [place] coronary artery without angina pectoris (11) COPD (chronic obstructive pulmonary disease) Assessment/Plan: -Pulm on board -mechanically ventilated -keep SpO2 >90% Code(s): J44.9 - CHRONIC OBSTRUCTIVE PULMONARY DISEASE, UNSPECIFIED (12) Hyperlipidemia Assessment/Plan: -Atorvastatin Code(s): E78.5 - HYPERLIPIDEMIA, UNSPECIFIED Qualifiers: Hyperlipidemia type: pure hypercholesterolemia Qualified Code(s): E78.00 - Pure hypercholesterolemia, unspecified; E78.0 - Pure hypercholesterolemia Assessment/Plan see problem list
[2019-02-22] MEDS ORDERED: INSULIN (NOVOLOG) ASPART 100 UNITS/ML 10ML VIAL ONE (10:10)
[2019-02-22] MEDS: APIXABAN 5 MG TABLET PO SCH ×2 (10:17→22:06)
[2019-02-22] MEDS: PANTOPRAZOLE SODIUM 40 MG VIAL IVPUSH SCH (10:17)
--- NOTE | 2019-02-22 12:25 | PN ---
Progress Note (short form) - Note Progress Note: PULMONARY Vented, awake. No fevers recorded. Vital Signs Period Temp Pulse Resp BP Sys/[place] Pulse Ox Last 24 Hr 98.2 F-98.9 F 71-94 - 121-155/57-75 100 Gen: vented, awake Heart: RRR Lung: decreased breath sounds at the bases Abd: soft, nontender Ext: + edema CBC, BMP 02/21/19 07:35 02/21/19 07:35 Active Medications Apixaban (Eliquis -) 5 mg PO BID [facility] Last Admin: 02/22/19 10:17 Dose: 5 mg Atorvastatin Calcium (Lipitor -) 80 mg PO HS [facility] Last Admin: 02/21/19 21:10 Dose: 80 mg Fluoxetine HCl (Prozac Oral Solution -) 20 mg PO DAILY [facility] Last Admin: 02/21/19 11:48 Dose: 20 mg Furosemide (Lasix -) 20 mg PO BID@0600,1400 [facility] Last Admin: 02/22/19 05:32 Dose: 20 mg Ceftazidime/Avibactam 2.5 gm/ (Dextrose) 250 mls @ 125 mls/hr IVPB Q8H-IV [facility]; Protocol Last Admin: 02/22/19 10:17 Dose: 125 mls/hr Insulin Aspart (Novolog Vial Sliding Scale -) 1 vial SQ ACHS [facility]; Protocol Last Admin: 02/22/19 11:18 Dose: 6 units Lisinopril (Prinivil) 10 mg PEG DAILY [facility] Metoprolol Tartrate (Lopressor Injection -) 5 mg IVPUSH Q4H PRN PRN Reason: TACHYCARDIA Last Admin: 02/11/19 10:03 Dose: 5 mg Metoprolol Tartrate (Lopressor -) 75 mg PO TID [facility] Last Admin: 02/22/19 05:32 Dose: 75 mg Nystatin (Nystop Powder -) 1 applic TP TID [facility] Last Admin: 02/22/19 05:32 Dose: 1 applic Pantoprazole Sodium (Protonix Iv) 40 mg IVPUSH DAILY [facility] Last Admin: 02/22/19 10:17 Dose: 40 mg A/P UTI Sacral Decubitus Ulcer Sepsis Volume Overload Acute on Chronic Diastolic Heart Failure Chronic Respiratory Failure h/o CVA COPD Atrial Fibrillation h/o GI Bleed HTN DM Anemia - continue antibiotics per ID - rate controlled - resume anticoagulation - monitor H/H - continue lasix - monitor urine output, creatinine - enteral feeds - DVT/GI prophylaxis
[2019-02-22] MEDS: LISINOPRIL 10 MG TABLET (FP) PEG SCH (12:38)
[2019-02-22] MEDS: FLUoxetine HCL 20 MG/5 ML 120 BOTTLE PO SCH (12:39)
--- NOTE | 2019-02-22 14:23 | PN ---
Progress Note, Physician History of Present Illness: Afebrile, hemodynamics stable, remains in rate-controlled afib. EGD revealing mild patchy antral erythema otherwise unremarkable. No obvious ulcers or angioectasias seen. - Current Medication List Current Medications: Active Medications Albuterol Sulfate (Ventolin 0.083% Nebulizer Soln -) 1 amp NEB Q4H PRN PRN Reason: SHORT OF BREATH/WHEEZING Apixaban (Eliquis -) 5 mg PO BID ON LICENSE OF [facility] Last Admin: 02/22/19 10:17 Dose: 5 mg Atorvastatin Calcium (Lipitor -) 80 mg PO HS [facility] Last Admin: 02/21/19 21:10 Dose: 80 mg Fluoxetine HCl (Prozac Oral Solution -) 20 mg PO DAILY ON [facility] OF [facility] Last Admin: 02/22/19 12:39 Dose: 20 mg Furosemide (Lasix -) 20 mg PO BID@0600,1400 ON LICENSE OF [facility] Last Admin: 02/22/19 05:32 Dose: 20 mg Ceftazidime/Avibactam 2.5 gm/ (Dextrose) 250 mls @ 125 mls/hr IVPB Q8H-IV [facility]; Protocol Last Admin: 02/22/19 10:17 Dose: 125 mls/hr Insulin Aspart (Novolog Vial Sliding Scale -) 1 vial SQ ACHS [facility]; Protocol Last Admin: 02/22/19 11:18 Dose: 6 units Lisinopril (Prinivil) 10 mg PEG DAILY [facility] OF [facility] Last Admin: 02/22/19 12:38 Dose: 10 mg Metoprolol Tartrate (Lopressor Injection -) 5 mg IVPUSH Q4H PRN PRN Reason: TACHYCARDIA Last Admin: 02/11/19 10:03 Dose: 5 mg Metoprolol Tartrate (Lopressor -) 75 mg PO TID ON LICENSE OF [facility] Last Admin: 02/22/19 05:32 Dose: 75 mg Nystatin (Nystop Powder -) 1 applic TP TID ON LICENSE OF [facility] Last Admin: 02/22/19 05:32 Dose: 1 applic Pantoprazole Sodium (Protonix Iv) 40 mg IVPUSH DAILY ON LICENSE OF [facility] Last Admin: 02/22/19 10:17 Dose: 40 mg - Objective Vital Signs: Vital Signs Temperature 98.4 F 02/22/19 09:02 Pulse Rate 82 02/22/19 09:02 Respiratory Rate 21 H 02/22/19 12:10 Blood Pressure 131/57 L 02/22/19 09:02 O2 Sat by Pulse Oximetry (%) 100 02/22/19 09:00 Constitutional: Yes: No Distress, Calm, Thin HENT: Yes: Other (Tracheostomy) Cardiovascular: Yes: Regular Rate and Rhythm Respiratory: Yes: Mechanically Ventilated, Rhonchi Gastrointestinal: Yes: Normal Bowel Sounds, Soft, Other (PEG in place) Edema: No Labs: CBC, BMP 02/21/19 07:35 02/21/19 07:35 INR, PTT INR 1.05 (0.83-1.09) 02/18/19 09:58 Problem List - Problems (1) Anemia Code(s): D64.9 - ANEMIA, UNSPECIFIED Qualifiers: Anemia type: unspecified type Qualified Code(s): D64.9 - Anemia, unspecified (2) CHF exacerbation Code(s): I50.9 - HEART FAILURE, UNSPECIFIED Qualifiers: Heart failure type: unspecified Qualified Code(s): I50.9 - Heart failure, unspecified (3) Sepsis Code(s): A41.9 - SEPSIS, UNSPECIFIED ORGANISM Qualifiers: Sepsis type: sepsis due to unspecified organism Sepsis acute organ dysfunction status: without acute organ dysfunction Qualified Code(s): A41.9 - Sepsis, unspecified organism (4) Stage 4 skin ulcer of sacral region Code(s): L98.429 - NON-PRESSURE CHRONIC ULCER OF BACK WITH UNSPECIFIED SEVERITY (5) UTI (urinary tract infection) Code(s): N39.0 - URINARY TRACT INFECTION, SITE NOT SPECIFIED Qualifiers: Urinary tract infection type: catheter-associated UTI Indwelling urinary catheter type: unspecified Encounter type: initial encounter Qualified Code( s): T83.511A - Infection and inflammatory reaction due to indwelling urethral catheter, initial encounter; N39.0 - Urinary tract infection, site not specified (6) A-fib Code(s): I48.91 - UNSPECIFIED ATRIAL FIBRILLATION Qualifiers: Atrial fibrillation type: persistent (7) Angiodysplasia of colon with hemorrhage Code(s): K55.21 - ANGIODYSPLASIA OF COLON WITH HEMORRHAGE (8) CAD (coronary artery disease) Code(s): I25.10 - ATHSCL HEART DISEASE OF [place] CORONARY ARTERY W/O ANG PCTRS Qualifiers: Coronary Disease-Associated Artery/Lesion type: [place] artery [place] vs. transplanted heart: [place] heart Associated angina: without angina Qualified Code(s): I25.10 - Atherosclerotic heart disease of [place] coronary artery without angina pectoris (9) CKD (chronic kidney disease) Code(s): N18.9 - CHRONIC KIDNEY DISEASE, UNSPECIFIED Qualifiers: Chronic kidney disease stage: stage 2 (mild) Qualified Code(s): N18.2 - Chronic kidney disease, stage 2 (mild) (10) CVA (cerebral vascular accident) Code(s): I63.9 - CEREBRAL INFARCTION, UNSPECIFIED Qualifiers: CVA mechanism: embolism (11) Diabetes mellitus Code(s): E11.9 - TYPE 2 DIABETES MELLITUS WITHOUT COMPLICATIONS Qualifiers: Diabetes mellitus type: type 2 (12) GIB (gastrointestinal bleeding) Code(s): K92.2 - GASTROINTESTINAL HEMORRHAGE, UNSPECIFIED Qualifiers: GI bleed type/associated pathology: unspecified gastrointestinal hemorrhage type Qualified Code(s): K92.2 - Gastrointestinal hemorrhage, unspecified (13) Hemoglobin decreased Code(s): R71.0 - PRECIPITOUS DROP IN HEMATOCRIT (14) Diabetes mellitus Code(s): E11.9 - TYPE 2 DIABETES MELLITUS WITHOUT COMPLICATIONS Qualifiers: Diabetes mellitus type: type 2 Diabetes mellitus half-way insulin use: without moth exterminator use Diabetes mellitus complication status: without complication Qualified Code(s): E11.9 - Type 2 diabetes mellitus without complications (15) H/O mitral valve replacement Code(s): Z95.2 - PRESENCE OF PROSTHETIC HEART VALVE (16) HTN (hypertension) Code(s): I10 - ESSENTIAL (PRIMARY) HYPERTENSION Qualifiers: Hypertension type: essential hypertension Qualified Code(s): I10 - Essential (primary) hypertension (17) Hyperlipidemia Code(s): E78.5 - HYPERLIPIDEMIA, UNSPECIFIED Qualifiers: Hyperlipidemia type: pure hypercholesterolemia Qualified Code(s): E78.00 - Pure hypercholesterolemia, unspecified; E78.0 - Pure hypercholesterolemia (18) Pacemaker Code(s): Z95.0 - PRESENCE OF CARDIAC PACEMAKER Assessment/Plan 02/18/2019 EGD revealing mild patchy antral erythema otherwise unremarkable. No obvious ulcers or angioectasias seen 04/30/2018 Echo: Normal LV size and fxn, severe TR RVSP 50-60 mmHg, mild MR EGD and colonoscopy in 07/2017 revealing gastritis, cecal AVM and four tubular adenomas 12/17/2016 reveal: 03/2009 acute systolic CHF and DC, R&LHc 90% distal OM1, 60% D1, preserved LV fxn, elevated LVEDP [place]UL[place] severe posterior leaflet prolapse with severe MR->MV annuloplasty repair, afib, sinus arrest->PPM, CAD left alone. [facility] Echo: 06/28/16 normal biventricular fxn, COSMO, mod TR, MV ring Nuc stress 09/13/2016 Anterolateral ischemia/infarct SDS 3 EF 82%, abnl ecg changes 1. Acute on chronic diastolic heart failure resolving 2. Chronic respiratory failure s/p tracheostomy and PEG 3. Coronary artery disease demand ischemic injury angina pectoris 4. Permanent atrial fibrillation [id number] score of 9 5. Sick sinus syndrome post permanent pacemaker implantation 6. Post mitral valve repair 7. UTI 8. Sacral decubitus ulcer Infection 9. HTN 7. DM 10. Hypercholesterolemia 11. 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 COPD 13. Hypernatremia resolved 14. Anemia post transfusion, h/o GI bleed, cecal AVMs PLAN: 1. Complete antibiotics coverage per ID 2. Monitor H/H post transfusion and continue Eliquis 5 bid as hemostasis assured per GI input 3. Continue Lasix 20 bid with monitoring diuretic response, renal function and electrolytes 4. Continue Lopressor 75 mg TID, Lipitor 80 qd, and lisinopril 10 qd. IV Lopressor as needed. Currently off Ranexa. 5. Continue enteral feeds 6. Wound care, DVT and GI prophylaxis 7. AC mode vent support 8. As no obvious source for anemia found, colonoscopy could be considered based on prior findings of cecal AVMs, but daughter Roxie (MELVI) declines, opting for conservative measures with iron or transfusion as needed.
[2019-02-22] MEDS: ATORVASTATIN CA 80 MG TABLET (FP) PO SCH (22:06)
[2019-02-23] MEDS ORDERED: PT OWN MED DRAWER 7, Y5N ONE ×4 (01:23→17:37)
[2019-02-23] MEDS: CEFTAZIDIME/AVIBACTAM 2.5 GM in DEXTROSE 5%-WATER - 250 ML IVPB SCH ×3 (01:45→18:07)
[2019-02-23] MEDS: METOPROLOL TARTRATE 25 MG TABLET (FP) PO SCH ×3 (05:53→23:49)
[2019-02-23] MEDS: INSULIN SLIDING SCALE (NOVOLOG) 1 VIAL SQ SCH ×6 (05:53→23:50)
[2019-02-23] MEDS: NYSTATIN POWDER 100,000 UNITS/GM - 15 GM TOPICAL POWDER TP SCH ×3 (05:53→23:52)
[2019-02-23] MEDS: FUROSEMIDE 20 MG TABLET (FP) PO SCH ×2 (05:53→14:49)
[2019-02-23 07:40] LABS: BASO % 0.6 % (0-2.0); HEMATOCRIT 29.3 % (32.4-45.2); HEMOGLOBIN 9.1 GM/dL (10.7-15.3); LYMPH % 14.1 % (8-40); MCH 26.3 pg (25.7-33.7); MCHC 30.9 g/dl (32.0-36.0); MEAN CELL VOLUME 85.1 fl (80-96); MEAN PLT VOLUME 10.3 fl (7.5-11.1); MONO % 6.9 % (3.8-10.2); NEUT % 74.4 % (42.8-82.8); PLATELET COUNT 329 K/MM3 (134-434); RBC 3.45 M/mm3 (3.60-5.2); WHITE BLOOD COUNT 10.8 K/mm3 (4.0-10.0)
--- NOTE | 2019-02-23 10:44 | PN ---
Progress Note, Physician Chief Complaint: Pleural Effusion Afib Stage 4 Ulcer sacral region History of Present Illness: Previous notes and events reviewed mechanically ventilated NAD mild leukocytosis afebrile EGD 02/18 Stool OB positive Hg 9.1 - Current Medication List Current Medications: Active Medications Albuterol Sulfate (Ventolin 0.083% Nebulizer Soln -) 1 amp NEB Q4H PRN PRN Reason: SHORT OF BREATH/WHEEZING Apixaban (Eliquis -) 5 mg PO BID REPLACED BY [facility] Last Admin: 02/22/19 22:06 Dose: 5 mg Atorvastatin Calcium (Lipitor -) 80 mg PO HS REPLACED BY [facility] Last Admin: 02/22/19 22:06 Dose: 80 mg Fluoxetine HCl (Prozac Oral Solution -) 20 mg PO DAILY REPLACED BY [facility] Last Admin: 02/22/19 12:39 Dose: 20 mg Furosemide (Lasix -) 20 mg PO BID@0600,1400 REPLACED BY [facility] Last Admin: 02/23/19 05:53 Dose: 20 mg Ceftazidime/Avibactam 2.5 gm/ (Dextrose) 250 mls @ 125 mls/hr IVPB Q8H-IV REPLACED BY [facility]; Protocol Last Admin: 02/23/19 01:45 Dose: 125 mls/hr Insulin Aspart (Novolog Vial Sliding Scale -) 1 vial SQ ACHS REPLACED BY [facility]; Protocol Last Admin: 02/23/19 06:14 Dose: Not Given Lisinopril (Prinivil) 10 mg PEG DAILY REPLACED BY [facility] Last Admin: 02/22/19 12:38 Dose: 10 mg Metoprolol Tartrate (Lopressor Injection -) 5 mg IVPUSH Q4H PRN PRN Reason: TACHYCARDIA Last Admin: 02/11/19 10:03 Dose: 5 mg Metoprolol Tartrate (Lopressor -) 75 mg PO TID REPLACED BY [facility] Last Admin: 02/23/19 05:53 Dose: 75 mg Nystatin (Nystop Powder -) 1 applic TP TID REPLACED BY [facility] Last Admin: 02/23/19 05:53 Dose: 1 applic Pantoprazole Sodium (Protonix Iv) 40 mg IVPUSH DAILY REPLACED BY [facility] Last Admin: 02/22/19 10:17 Dose: 40 mg - Objective Vital Signs: Vital Signs Temperature 97.9 F 02/23/19 06:00 Pulse Rate 97 H 02/23/19 06:00 Respiratory Rate 23 H 02/23/19 08:18 Blood Pressure 152/74 02/23/19 06:00 O2 Sat by Pulse Oximetry (%) 100 02/22/19 21:00 Constitutional: Yes: No Distress, Calm Eyes: Yes: Conjunctiva Clear HENT: Yes: Atraumatic Cardiovascular: Yes: Regular Rate and Rhythm Respiratory: Yes: Regular, Diminished, Mechanically Ventilated Gastrointestinal: Yes: Normal Bowel Sounds, Soft, Other (Gtube) Genitourinary: Yes: [place] Present Musculoskeletal: Yes: Muscle Weakness Extremities: Yes: WNL Edema: Yes (upper extremity) Integumentary: Yes: Pressure Ulcer Neurological: Yes: Alert, Pre-Existing Deficit Psychiatric: Yes: Alert Labs: CBC, BMP 02/23/19 06:00 02/21/19 07:35 INR, PTT INR 1.05 (0.83-1.09) 02/18/19 09:58 Microbiology 02/09/19 20:50 Blood - Peripheral Venous Blood Culture - Final NO GROWTH AFTER 5 DAYS INCUBATION 02/09/19 20:50 Blood - Peripheral Venous Blood Culture - Final NO GROWTH AFTER 5 DAYS INCUBATION 02/10/19 05:30 Coccyx Gram Stain - Final 02/10/19 05:30 Coccyx Wound Culture - Final Enterobacter Cloacae Proteus Mirabilis Enterococcus Faecalis 02/09/19 20:50 Urine - Urine Clean Catch Urine Culture - Final Enterobacter Cloacae Problem List - Problems (1) Acute and chronic respiratory failure Assessment/Plan: -Pulm on board -mechanically ventilated -keep SpO2 >90% Code(s): J96.20 - ACUTE AND CHR RESP FAILURE, UNSP W HYPOXIA OR HYPERCAPNIA (2) Anemia Assessment/Plan: -Hg 9.1 -monitor Hg daily, transfuse for Hg <7.0 to avoid fluid overload -GI on board -EGD on 02/18/19 shows mild patchy antral erythema, no obvious ulcers -Stool OB positive Code(s): D64.9 - ANEMIA, UNSPECIFIED Qualifiers: Anemia type: unspecified type Qualified Code(s): D64.9 - Anemia, unspecified (3) Pleural effusion Assessment/Plan: -Pulm on board -Furosemide -keep SpO2 >90% -CXR moderate bilateral pleural effusion with vascular congestive changes Code(s): J90 - PLEURAL EFFUSION, NOT ELSEWHERE CLASSIFIED (4) Sepsis Assessment/Plan: -ID on board -Avycaz -BC neg -UC positive, Sacral wound culture positive -no leukocytosis -afebrile -LA 1.5 Code(s): A41.9 - SEPSIS, UNSPECIFIED ORGANISM Qualifiers: Sepsis type: sepsis due to unspecified organism Sepsis acute organ dysfunction status: without acute organ dysfunction Qualified Code(s): A41.9 - Sepsis, unspecified organism (5) Stage 4 skin ulcer of sacral region Assessment/Plan: -Sacral wound culture positive -ID on board -Azactam -leukocytosis -air mattress -turn q2h -offloading -pack wound with moist kerlix and cover with OPTIfoam -daily dressing changes Code(s): L98.429 - NON-PRESSURE CHRONIC ULCER OF BACK WITH UNSPECIFIED SEVERITY (6) A-fib Assessment/Plan: -Eliquis and Metoprolol Code(s): I48.91 - UNSPECIFIED ATRIAL FIBRILLATION Qualifiers: Atrial fibrillation type: persistent (7) Diabetes mellitus Assessment/Plan: -BGM ACHS -HgA1c 7.6% -ISS Code(s): E11.9 - TYPE 2 DIABETES MELLITUS WITHOUT COMPLICATIONS Qualifiers: Diabetes mellitus type: type 2 (8) GIB (gastrointestinal bleeding) Assessment/Plan: -Hg 9.1 -monitor Hg daily, transfuse for Hg <7.0 to avoid fluid overload -GI on board -EGD on 02/18/19 shows mild patchy antral erythema, no obvious ulcers -Stool OB positive Code(s): K92.2 - GASTROINTESTINAL HEMORRHAGE, UNSPECIFIED Qualifiers: GI bleed type/associated pathology: unspecified gastrointestinal hemorrhage type Qualified Code(s): K92.2 - Gastrointestinal hemorrhage, unspecified (9) UTI (urinary tract infection) Assessment/Plan: -ID on board -UC positive -no leukocytosis -afebrile -Avycaz Code(s): N39.0 - URINARY TRACT INFECTION, SITE NOT SPECIFIED Qualifiers: Urinary tract infection type: acute cystitis Hematuria presence: with hematuria Qualified Code(s): N30.01 - Acute cystitis with hematuria (10) CAD (coronary artery disease) Assessment/Plan: -Atorvastatin Code(s): I25.10 - ATHSCL HEART DISEASE OF [place] CORONARY ARTERY W/O ANG PCTRS Qualifiers: Coronary Disease-Associated Artery/Lesion type: [place] artery [place] vs. transplanted heart: [place] heart Associated angina: without angina Qualified Code(s): I25.10 - Atherosclerotic heart disease of [place] coronary artery without angina pectoris (11) COPD (chronic obstructive pulmonary disease) Assessment/Plan: -Pulm on board -mechanically ventilated -keep SpO2 >90% Code(s): J44.9 - CHRONIC OBSTRUCTIVE PULMONARY DISEASE, UNSPECIFIED (12) Hyperlipidemia Assessment/Plan: -Atorvastatin Code(s): E78.5 - HYPERLIPIDEMIA, UNSPECIFIED Qualifiers: Hyperlipidemia type: pure hypercholesterolemia Qualified Code(s): E78.00 - Pure hypercholesterolemia, unspecified; E78.0 - Pure hypercholesterolemia Assessment/Plan see problem list
[2019-02-23] MEDS: APIXABAN 5 MG TABLET PO SCH ×2 (11:03→23:50)
[2019-02-23] MEDS: LISINOPRIL 10 MG TABLET (FP) PEG SCH (11:03)
[2019-02-23] MEDS: PANTOPRAZOLE SODIUM 40 MG VIAL IVPUSH SCH (11:04)
--- NOTE | 2019-02-23 11:09 | DS ---
Physical Examination Vital Signs: Vital Signs Temperature 97.9 F 02/23/19 06:00 Pulse Rate 90 02/23/19 11:00 Respiratory Rate 23 H 02/23/19 11:00 Blood Pressure 150/70 02/23/19 11:00 O2 Sat by Pulse Oximetry (%) 100 02/22/19 21:00 Findings/Remarks: Laboratory Last Values WBC 10.8 K/mm3 (4.0-10.0) H 02/23/19 06:00 RBC 3.45 M/mm3 (3.60-5.2) L 02/23/19 06:00 Hgb 9.1 GM/dL (10.7-15.3) L 02/23/19 06:00 Hct 29.3 % (32.4-45.2) L 02/23/19 06:00 MCV 85.1 fl (80-96) 02/23/19 06:00 MCH 26.3 pg (25.7-33.7) 02/23/19 06:00 MCHC 30.9 g/dl (32.0-36.0) L 02/23/19 06:00 RDW 20.0 % (11.6-15.6) H 02/23/19 06:00 Plt Count 329 K/MM3 (134-434) 02/23/19 06:00 MPV 10.3 fl (7.5-11.1) 02/23/19 06:00 Absolute Neuts (auto) 8.0 K/mm3 (1.5-8.0) 02/23/19 06:00 Neutrophils % 74.4 % (42.8-82.8) 02/23/19 06:00 Lymphocytes % 14.1 % (8-40) 02/23/19 06:00 Monocytes % 6.9 % (3.8-10.2) 02/23/19 06:00 Eosinophils % 4.0 % (0-4.5) 02/23/19 06:00 Basophils % 0.6 % (0-2.0) 02/23/19 06:00 Nucleated RBC % 0 % (0-0) 02/23/19 06:00 Hypochromia 1+ 02/15/19 07:55 Platelet Estimate Normal 02/15/19 07:55 Anisocytosis 2+ 02/15/19 07:55 Schistocytes 1+ 02/15/19 07:55 PT with INR 12.40 SEC (9.7-13.0) 02/18/19 09:58 INR 1.05 (0.83-1.09) 02/18/19 09:58 PTT (Actin FS) 32.9 SECONDS (25.2-36.5) 02/09/19 20:50 VBG pH 7.52 (7.31-7.41) H 02/09/19 20:50 POC VBG pCO2 39.3 mmHg (38-52) 02/09/19 20:50 POC VBG pO2 53.9 mmHg (28-48) H 02/09/19 20:50 VBG HCO3 32.0 mmol/L (23-29) H 02/09/19 20:50 VBG O2 Sat (Dylan) 87.9 % (70-80) H 02/09/19 20:50 VBG Base Excess 8.7 meq/l (-2-2) H 02/09/19 20:50 Sodium 140 mmol/L (136-145) 02/21/19 07:35 Potassium 3.9 mmol/L (3.5-5.1) 02/21/19 07:35 Chloride 106 mmol/L (98-107) 02/21/19 07:35 Carbon Dioxide 27 mmol/L (21-32) 02/21/19 07:35 Anion Gap 7 MMOL/L (8-16) L 02/21/19 07:35 BUN 19.1 mg/dL (7-18) H 02/21/19 07:35 Creatinine 0.6 mg/dL (0.55-1.3) 02/21/19 07:35 Est GFR (CKD-EPI)AfAm 102.62 02/21/19 07:35 Est GFR (CKD-EPI)NonAf 88.54 02/21/19 07:35 POC Glucometer 287 UNITS (80-120) 02/23/19 05:25 Random Glucose 253 mg/dL (74-106) H 02/21/19 07:35 Hemoglobin A1c % 7.6 % (4.2-6.3) H 02/14/19 21:37 Lactic Acid 1.5 mmol/L (0.4-2.0) 02/09/19 20:42 Calcium 8.2 mg/dL (8.5-10.1) L 02/21/19 07:35 Phosphorus 2.2 mg/dL (2.5-4.9) L 02/20/19 06:00 Magnesium 2.3 mg/dL (1.8-2.4) 02/20/19 06:00 Iron 43 ug/dL (50-175) L 02/19/19 07:08 TIBC 262 ug/dL (250-450) 02/19/19 07:08 Iron Saturation 16 % (17.5-39) L 02/19/19 07:08 Unsaturated IBC 219 ug/dL (200-275) 02/19/19 07:08 Ferritin 1214.0 ng/ml (8-388) H 02/19/19 07:08 Total Bilirubin 0.3 mg/dL (0.2-1) 02/21/19 07:35 AST 38 U/L (15-37) H 02/21/19 07:35 ALT 19 U/L (13-61) 02/21/19 07:35 Alkaline Phosphatase 223 U/L (45-117) H 02/21/19 07:35 Creatine Kinase 45 U/L (26-192) 02/10/19 10:10 Troponin I 0.05 ng/ml (0.00-0.05) 02/10/19 10:10 B-Natriuretic Peptide 3849.5 pg/ml (5-450) H 02/09/19 20:50 Total Protein 5.1 g/dl (6.4-8.2) L 02/21/19 07:35 Albumin 1.1 g/dl (3.4-5.0) L 02/21/19 07:35 Urine Color Yellow 02/09/19 20:50 Urine Appearance Turbid 02/09/19 20:50 Urine pH 7.0 (5.0-8.0) D 02/09/19 20:50 Ur Specific [place] 1.016 (1.010-1.035) 02/09/19 20:50 Urine Protein 1+ (NEGATIVE) H 02/09/19 20:50 Urine Glucose (UA) Negative (NEGATIVE) 02/09/19 20:50 Urine Ketones Negative (NEGATIVE) 02/09/19 20:50 Urine Blood 1+ (NEGATIVE) H 02/09/19 20:50 Urine Nitrite Negative (NEGATIVE) 02/09/19 20:50 Urine Bilirubin Negative (NEGATIVE) 02/09/19 20:50 Urine Urobilinogen 0.2 mg/dL (0.2-1.0) 02/09/19 20:50 Ur Leukocyte Esterase 3+ (NEGATIVE) H 02/09/19 20:50 Urine WBC (Auto) 1262 /hpf (0-5) 02/09/19 20:50 Urine RBC (Auto) 75 /hpf (0-4) 02/09/19 20:50 Urine Casts (Auto) 12 /lpf (0-8) 02/09/19 20:50 U Pathogenic Cast Auto None seen /lpf (NEGATIVE) 02/09/19 20:50 U Epithel Cells (Auto) 17.7 /HPF (0-5/HPF) 02/09/19 20:50 Urine Bacteria (Auto) 1462.1 /hpf (NEGATIVE) 02/09/19 20:50 Urine Yeast (Auto) Review (NEGATIVE) A* 02/09/19 20:50 Stool Occult Blood Positive (NEGATIVE) 02/13/19 06:00 Blood Type O POSITIVE 02/09/19 22:19 Antibody Screen Negative 02/09/19 22:19 Crossmatch See Detail 02/09/19 22:19 Home Medication List Medication Instructions Recorded Confirmed Type Fluoxetine HCl Liquid [Prozac 20 mg PO DAILY 04/28/18 02/10/19 History 20mg/5mL Oral Solution -] Furosemide [Lasix -] 20 mg PO BID@0600,1400 04/28/18 02/10/19 History L. Acidophilus/Pectin, [place] 1 each PO TID 04/28/18 02/10/19 History [Acidophilus-Pectin Capsule] Metformin HCl [Glucophage] 1,000 mg PO BID 04/28/18 02/10/19 History Metoprolol Tartrate [Lopressor -] 75 mg PO TID 04/28/18 02/10/19 History Sitagliptin Phosphate [Januvia] 50 mg PO BID 04/28/18 02/10/19 History Tamsulosin HCl [Flomax] 0.4 mg PO DAILY 04/28/18 02/10/19 History Active Medications Generic Name Dose Route Start Last Admin Trade Name Freq PRN Reason Stop Dose Admin Albuterol Sulfate 1 amp 02/22/19 12:29 Ventolin 0.083% Nebulizer Soln - NEB Q4H PRN SHORT OF BREATH/WHEEZING Apixaban 5 mg 02/18/19 22:00 02/23/19 11:03 Eliquis - PO 5 mg BID [facility] Administration Atorvastatin Calcium 80 mg 02/19/19 22:00 02/22/19 22:06 Lipitor - PO 80 mg HS [facility] Administration Fluoxetine HCl 20 mg 02/19/19 10:00 02/22/19 12:39 Prozac Oral Solution - PO 20 mg DAILY [facility] Administration Furosemide 20 mg 02/19/19 14:00 02/23/19 05:53 Lasix - PO 20 mg BID@0600,1400 [facility] Administration Ceftazidime/Avibactam 2.5 gm/ 250 mls @ 125 mls/hr 02/12/19 11:45 02/23/19 11 :04 Dextrose IVPB 125 mls/hr Q8H-IV [facility] Administration Protocol Insulin Aspart 1 vial 02/13/19 22:00 02/23/19 06:14 Novolog Vial Sliding Scale - SQ Not Given ACHS [facility] Protocol Lisinopril 10 mg 02/22/19 12:35 02/23/19 11:03 Prinivil PEG 10 mg DAILY [facility] Administration Metoprolol Tartrate 5 mg 02/11/19 08:19 02/11/19 10:03 Lopressor Injection - IVPUSH 5 mg Q4H PRN Administration TACHYCARDIA Metoprolol Tartrate 75 mg 02/12/19 06:30 02/23/19 05:53 Lopressor - PO 75 mg TID [facility] Administration Nystatin 1 applic 02/21/19 14:00 02/23/19 05:53 Nystop Powder - TP 1 applic TID [facility] Administration Pantoprazole Sodium 40 mg 02/13/19 14:15 02/23/19 11:04 Protonix Iv IVPUSH 40 mg DAILY [facility] Administration Microbiology 02/09/19 20:50 Blood - Peripheral Venous Blood Culture - Final NO GROWTH AFTER 5 DAYS INCUBATION 02/09/19 20:50 Blood - Peripheral Venous Blood Culture - Final NO GROWTH AFTER 5 DAYS INCUBATION 02/10/19 05:30 Coccyx Gram Stain - Final 02/10/19 05:30 Coccyx Wound Culture - Final Enterobacter Cloacae Proteus Mirabilis Enterococcus Faecalis 02/09/19 20:50 Urine - Urine Clean Catch Urine Culture - Final Enterobacter Cloacae Constitutional: Yes: No Distress, Calm Eyes: Yes: Conjunctiva Clear HENT: Yes: Atraumatic Neck: Yes: Other (trach) Cardiovascular: Yes: Regular Rate and Rhythm Respiratory: Yes: Regular, Diminished, Mechanically Ventilated Gastrointestinal: Yes: Normal Bowel Sounds, Soft, Other (Gtube) Renal/: Yes: [place] Present Musculoskeletal: Yes: Muscle Weakness Extremities: Yes: WNL Edema: Yes Integumentary: Yes: Pressure Ulcer Neurological: Yes: Alert, Pre-Existing Deficit Psychiatric: Yes: Alert Labs: CBC, BMP 02/23/19 06:00 02/21/19 07:35 Discharge Summary Problems reviewed: Yes Reason For Visit: URINARY TRACT INFECTION, CONGESTIVE HEART FAILURE Current Active Problems Acute and chronic respiratory failure (Acute) Anemia (Acute) CHF exacerbation (Acute) Pleural effusion (Acute) Pleural effusion (Acute) S/P mitral valve repair (Acute) Sacral decubitus ulcer (Acute) Sepsis (Acute) Severe pulmonary arterial systolic hypertension (Acute) Stage 4 skin ulcer of sacral region (Acute) Tracheostomy care (Acute) UTI (urinary tract infection) (Acute) Ventilator dependent (Acute) Condition: Stable - Instructions Diet, Activity, Other Instructions: follow up with pmd in 2 weeks continue with medication as prescribed return to ER if develop severe chest pain, respiratory distress, ams Referrals: Jagjit Tavares MD [Primary Care Provider] - Disposition: NURSING HOME FACILITY - Home Medications Comprehensive Discharge Medication List: Ambulatory Orders Apixaban [Eliquis -] 5 mg PO BID tablet 07/26/17 Ascorbic Acid [Vitamin C -] 500 mg PO DAILY 30 Days #60 tablet MDD 2 07/26/17 Atorvastatin Ca [Lipitor] 80 mg PO HS tablet 07/26/17 Ferrous Sulfate [Feosol] 325 mg PO DAILY@0800 ud 07/26/17 Pantoprazole Sodium [Protonix -] 40 mg PO DAILY tablet.ec 07/26/17 Fluoxetine HCl Liquid [Prozac 20mg/5mL Oral Solution -] 20 mg PO DAILY 04/28/18 Furosemide [Lasix -] 20 mg PO BID@0600,1400 04/28/18 L. Acidophilus/Pectin, [place] [Acidophilus-Pectin Capsule] 1 each PO TID Metformin HCl [Glucophage] 1,000 mg PO BID 04/28/18 Metoprolol Tartrate [Lopressor -] 75 mg PO TID 04/28/18 Sitagliptin Phosphate [Januvia] 50 mg PO BID 04/28/18 Tamsulosin HCl [Flomax] 0.4 mg PO DAILY 04/28/18 Insulin (Levemir) [Levemir Vial] 16 units SQ HS units 05/02/18 Lisinopril [Prinivil] 10 mg PO DAILY #30 tablet MDD 1 05/02/18 Ranolazine [Ranexa -] 500 mg PO BID tab 06/30/18
--- NOTE | 2019-02-23 11:12 | PN ---
Progress Note (short form) - Note Progress Note: Vented, AC Mode. Awake. No fevers recorded. Intake & Output 02/20/19 02/21/19 02/22/19 02/23/19 23:59 23:59 23:59 23:59 Intake Total 2750 2700 2900 1600 Output Total 1100 1750 500 600 Balance 0348 446 0345 1000 Last Vital Signs Temp Pulse Resp BP Pulse Ox 97.9 F 90 23 H 150/70 100 02/23/19 06:00 02/23/19 11:00 02/23/19 11:00 02/23/19 11:00 02/22/19 21:00 Active Medications Albuterol Sulfate (Ventolin 0.083% Nebulizer Soln -) 1 amp NEB Q4H PRN PRN Reason: SHORT OF BREATH/WHEEZING Apixaban (Eliquis -) 5 mg PO BID [facility] Last Admin: 02/23/19 11:03 Dose: 5 mg Atorvastatin Calcium (Lipitor -) 80 mg PO HS [facility] Last Admin: 02/22/19 22:06 Dose: 80 mg Fluoxetine HCl (Prozac Oral Solution -) 20 mg PO DAILY [facility] Last Admin: 02/22/19 12:39 Dose: 20 mg Furosemide (Lasix -) 20 mg PO BID@0600,1400 [facility] Last Admin: 02/23/19 05:53 Dose: 20 mg Ceftazidime/Avibactam 2.5 gm/ (Dextrose) 250 mls @ 125 mls/hr IVPB Q8H-IV [facility]; Protocol Last Admin: 02/23/19 11:04 Dose: 125 mls/hr Insulin Aspart (Novolog Vial Sliding Scale -) 1 vial SQ ACHS [facility]; Protocol Last Admin: 02/23/19 06:14 Dose: Not Given Lisinopril (Prinivil) 10 mg PEG DAILY [facility] Last Admin: 02/23/19 11:03 Dose: 10 mg Metoprolol Tartrate (Lopressor Injection -) 5 mg IVPUSH Q4H PRN PRN Reason: TACHYCARDIA Last Admin: 02/11/19 10:03 Dose: 5 mg Metoprolol Tartrate (Lopressor -) 75 mg PO TID [facility] Last Admin: 02/23/19 05:53 Dose: 75 mg Nystatin (Nystop Powder -) 1 applic TP TID [facility] Last Admin: 02/23/19 05:53 Dose: 1 applic Pantoprazole Sodium (Protonix Iv) 40 mg IVPUSH DAILY [facility] Last Admin: 02/23/19 11:04 Dose: 40 mg Gen: vented, awake Heart: RRR Lung: decreased breath sounds at the bases Abd: soft, nontender Ext: + edema Laboratory Results - last 24 hr 02/22/19 02/22/19 02/22/19 11:10 16:24 22:02 WBC RBC Hgb Hct MCV MCH MCHC RDW Plt Count MPV Absolute Neuts (auto) Neutrophils % Lymphocytes % Monocytes % Eosinophils % Basophils % Nucleated RBC % POC Glucometer 284 222 259 02/23/19 02/23/19 05:25 06:00 WBC 10.8 H RBC 3.45 L Hgb 9.1 L Hct 29.3 L MCV 85.1 MCH 26.3 MCHC 30.9 L RDW 20.0 H Plt Count 329 MPV 10.3 Absolute Neuts (auto) 8.0 Neutrophils % 74.4 Lymphocytes % 14.1 Monocytes % 6.9 Eosinophils % 4.0 Basophils % 0.6 Nucleated RBC % 0 POC Glucometer 287 A/P UTI Sacral Decubitus Ulcer Sepsis Volume Overload Acute on Chronic Diastolic Heart Failure Chronic Respiratory Failure h/o CVA COPD Atrial Fibrillation h/o GI Bleed HTN DM Anemia - Antibiotics per ID - rate controlled - Anticoagulation - Monitor H/H - Lasix - monitor urine output, creatinine - enteral feeds - DVT/GI prophylaxis Dr Stover
--- NOTE | 2019-02-23 11:57 | PN ---
Progress Note, Physician History of Present Illness: Afebrile, hemodynamics stable, remains in rate-controlled afib. EGD revealing mild patchy antral erythema otherwise unremarkable. No obvious ulcers or angioectasias seen. - Current Medication List Current Medications: Active Medications Albuterol Sulfate (Ventolin 0.083% Nebulizer Soln -) 1 amp NEB Q4H PRN PRN Reason: SHORT OF BREATH/WHEEZING Apixaban (Eliquis -) 5 mg PO BID [facility] Last Admin: 02/23/19 11:03 Dose: 5 mg Atorvastatin Calcium (Lipitor -) 80 mg PO HS [facility] Last Admin: 02/22/19 22:06 Dose: 80 mg Fluoxetine HCl (Prozac Oral Solution -) 20 mg PO DAILY [facility] Last Admin: 02/22/19 12:39 Dose: 20 mg Furosemide (Lasix -) 20 mg PO BID@0600,1400 [facility] Last Admin: 02/23/19 05:53 Dose: 20 mg Ceftazidime/Avibactam 2.5 gm/ (Dextrose) 250 mls @ 125 mls/hr IVPB Q8H-IV [facility]; Protocol Last Admin: 02/23/19 11:04 Dose: 125 mls/hr Insulin Aspart (Novolog Vial Sliding Scale -) 1 vial SQ ACHS [facility]; Protocol Last Admin: 02/23/19 06:14 Dose: Not Given Lisinopril (Prinivil) 10 mg PEG DAILY [facility] Last Admin: 02/23/19 11:03 Dose: 10 mg Metoprolol Tartrate (Lopressor Injection -) 5 mg IVPUSH Q4H PRN PRN Reason: TACHYCARDIA Last Admin: 02/11/19 10:03 Dose: 5 mg Metoprolol Tartrate (Lopressor -) 75 mg PO TID [facility] Last Admin: 02/23/19 05:53 Dose: 75 mg Nystatin (Nystop Powder -) 1 applic TP TID [facility] Last Admin: 02/23/19 05:53 Dose: 1 applic Pantoprazole Sodium (Protonix Iv) 40 mg IVPUSH DAILY [facility] Last Admin: 02/23/19 11:04 Dose: 40 mg - Objective Vital Signs: Vital Signs Temperature 97.9 F 02/23/19 06:00 Pulse Rate 90 02/23/19 11:00 Respiratory Rate 23 H 02/23/19 11:00 Blood Pressure 120/60 02/23/19 11:00 O2 Sat by Pulse Oximetry (%) 100 02/22/19 21:00 Constitutional: Yes: No Distress, Calm Neck: Yes: Supple, Other (Tracehostomy) Cardiovascular: Yes: Pulse Irregular Respiratory: Yes: Mechanically Ventilated, Rhonchi Gastrointestinal: Yes: Normal Bowel Sounds, Soft, Other (PEG in place) Edema: Yes Edema: LUE: 1+, RUE: 1+, LLE: Trace, RLE: Trace Labs: CBC, BMP 02/23/19 06:00 02/21/19 07:35 INR, PTT INR 1.05 (0.83-1.09) 02/18/19 09:58 Problem List - Problems (1) Anemia Code(s): D64.9 - ANEMIA, UNSPECIFIED Qualifiers: Anemia type: unspecified type Qualified Code(s): D64.9 - Anemia, unspecified (2) CHF exacerbation Code(s): I50.9 - HEART FAILURE, UNSPECIFIED Qualifiers: Heart failure type: unspecified Qualified Code(s): I50.9 - Heart failure, unspecified (3) Sepsis Code(s): A41.9 - SEPSIS, UNSPECIFIED ORGANISM Qualifiers: Sepsis type: sepsis due to unspecified organism Sepsis acute organ dysfunction status: without acute organ dysfunction Qualified Code(s): A41.9 - Sepsis, unspecified organism (4) Stage 4 skin ulcer of sacral region Code(s): L98.429 - NON-PRESSURE CHRONIC ULCER OF BACK WITH UNSPECIFIED SEVERITY (5) UTI (urinary tract infection) Code(s): N39.0 - URINARY TRACT INFECTION, SITE NOT SPECIFIED Qualifiers: Urinary tract infection type: catheter-associated UTI Indwelling urinary catheter type: unspecified Encounter type: initial encounter Qualified Code( s): T83.511A - Infection and inflammatory reaction due to indwelling urethral catheter, initial encounter; N39.0 - Urinary tract infection, site not specified (6) A-fib Code(s): I48.91 - UNSPECIFIED ATRIAL FIBRILLATION Qualifiers: Atrial fibrillation type: persistent (7) Angiodysplasia of colon with hemorrhage Code(s): K55.21 - ANGIODYSPLASIA OF COLON WITH HEMORRHAGE (8) CAD (coronary artery disease) Code(s): I25.10 - ATHSCL HEART DISEASE OF [place] CORONARY ARTERY W/O ANG PCTRS Qualifiers: Coronary Disease-Associated Artery/Lesion type: [place] artery [place] vs. transplanted heart: [place] heart Associated angina: without angina Qualified Code(s): I25.10 - Atherosclerotic heart disease of [place] coronary artery without angina pectoris (9) CKD (chronic kidney disease) Code(s): N18.9 - CHRONIC KIDNEY DISEASE, UNSPECIFIED Qualifiers: Chronic kidney disease stage: stage 2 (mild) Qualified Code(s): N18.2 - Chronic kidney disease, stage 2 (mild) (10) CVA (cerebral vascular accident) Code(s): I63.9 - CEREBRAL INFARCTION, UNSPECIFIED Qualifiers: CVA mechanism: embolism (11) Diabetes mellitus Code(s): E11.9 - TYPE 2 DIABETES MELLITUS WITHOUT COMPLICATIONS Qualifiers: Diabetes mellitus type: type 2 (12) GIB (gastrointestinal bleeding) Code(s): K92.2 - GASTROINTESTINAL HEMORRHAGE, UNSPECIFIED Qualifiers: GI bleed type/associated pathology: unspecified gastrointestinal hemorrhage type Qualified Code(s): K92.2 - Gastrointestinal hemorrhage, unspecified (13) Hemoglobin decreased Code(s): R71.0 - PRECIPITOUS DROP IN HEMATOCRIT (14) Diabetes mellitus Code(s): E11.9 - TYPE 2 DIABETES MELLITUS WITHOUT COMPLICATIONS Qualifiers: Diabetes mellitus type: type 2 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: without fdc use Diabetes mellitus complication status: without complication Qualified Code(s): E11.9 - Type 2 diabetes mellitus without complications (15) H/O mitral valve replacement Code(s): Z95.2 - PRESENCE OF PROSTHETIC HEART VALVE (16) HTN (hypertension) Code(s): I10 - ESSENTIAL (PRIMARY) HYPERTENSION Qualifiers: Hypertension type: essential hypertension Qualified Code(s): I10 - Essential (primary) hypertension (17) Hyperlipidemia Code(s): E78.5 - HYPERLIPIDEMIA, UNSPECIFIED Qualifiers: Hyperlipidemia type: pure hypercholesterolemia Qualified Code(s): E78.00 - Pure hypercholesterolemia, unspecified; E78.0 - Pure hypercholesterolemia (18) Pacemaker Code(s): Z95.0 - PRESENCE OF CARDIAC PACEMAKER Assessment/Plan 02/18/2019 EGD revealing mild patchy antral erythema otherwise unremarkable. No obvious ulcers or angioectasias seen 04/30/2018 Echo: Normal LV size and fxn, severe TR RVSP 50-60 mmHg, mild MR EGD and colonoscopy in 07/2017 revealing gastritis, cecal AVM and four tubular adenomas 12/17/2016 reveal: 03/2009 acute systolic CHF and [place], R&LHc 90% distal OM1, 60% D1, preserved LV fxn, elevated LVEDP BULMARO severe posterior leaflet prolapse with severe MR->MV annuloplasty repair, afib, sinus arrest->PPM, CAD left alone. [facility] Echo: 06/28/16 normal biventricular fxn, COSMO, mod TR, MV ring Nuc stress 09/13/2016 Anterolateral ischemia/infarct SDS 3 EF 82%, abnl ecg changes 1. Acute on chronic diastolic heart failure resolving 2. Chronic respiratory failure s/p tracheostomy and PEG 3. Coronary artery disease demand ischemic injury angina pectoris 4. Permanent atrial fibrillation [id number] score of 9 5. Sick sinus syndrome post permanent pacemaker implantation 6. Post mitral valve repair 7. UTI 8. Sacral decubitus ulcer Infection 9. HTN 7. DM 10. Hypercholesterolemia 11. 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 COPD 13. Hypernatremia resolved 14. Anemia post transfusion, h/o GI bleed, cecal AVMs PLAN: 1. Complete antibiotics coverage per ID 2. Monitor H/H post transfusion and continue Eliquis 5 bid as hemostasis assured per GI input 3. Continue Lasix 20 bid with monitoring diuretic response, renal function and electrolytes 4. Continue Lopressor 75 mg TID, Lipitor 80 qd, and lisinopril 10 qd. IV Lopressor as needed. Currently off Ranexa. 5. Continue enteral feeds 6. Wound care, DVT and GI prophylaxis 7. AC mode vent support 8. As no obvious source for anemia found, colonoscopy could be considered based on prior findings of cecal AVMs, but daughter Roxie (NOK) declines, opting for conservative measures with iron or transfusion as needed.
[2019-02-23] MEDS: FLUoxetine HCL 20 MG/5 ML 120 BOTTLE PO SCH (13:11)
--- NOTE | 2019-02-23 15:21 | PN ---
Progress Note, Physician History of Present Illness: AWAKE ON VENTILATOR NO ACUTE DISTRESS AFEBRILE - Current Medication List Current Medications: Active Medications Albuterol Sulfate (Ventolin 0.083% Nebulizer Soln -) 1 amp NEB Q4H PRN PRN Reason: SHORT OF BREATH/WHEEZING Apixaban (Eliquis -) 5 mg PO BID [facility] Last Admin: 02/23/19 11:03 Dose: 5 mg Atorvastatin Calcium (Lipitor -) 80 mg PO HS [facility] Last Admin: 02/22/19 22:06 Dose: 80 mg Fluoxetine HCl (Prozac Oral Solution -) 20 mg PO DAILY [facility] Last Admin: 02/23/19 13:11 Dose: 20 mg Furosemide (Lasix -) 20 mg PO BID@0600,1400 [facility] Last Admin: 02/23/19 14:49 Dose: 20 mg Ceftazidime/Avibactam 2.5 gm/ (Dextrose) 250 mls @ 125 mls/hr IVPB Q8H-IV [facility]; Protocol Last Admin: 02/23/19 11:04 Dose: 125 mls/hr Insulin Aspart (Novolog Vial Sliding Scale -) 1 vial SQ ACHS [facility]; Protocol Last Admin: 02/23/19 11:58 Dose: 8 units Lisinopril (Prinivil) 10 mg PEG DAILY [facility] Last Admin: 02/23/19 11:03 Dose: 10 mg Metoprolol Tartrate (Lopressor Injection -) 5 mg IVPUSH Q4H PRN PRN Reason: TACHYCARDIA Last Admin: 02/11/19 10:03 Dose: 5 mg Metoprolol Tartrate (Lopressor -) 75 mg PO TID [facility] Last Admin: 02/23/19 14:49 Dose: 75 mg Nystatin (Nystop Powder -) 1 applic TP TID [facility] Last Admin: 02/23/19 14:50 Dose: 1 applic Pantoprazole Sodium (Protonix Iv) 40 mg IVPUSH DAILY [facility] Last Admin: 02/23/19 11:04 Dose: 40 mg - Objective Vital Signs: Vital Signs Temperature 98.5 F 02/23/19 11:00 Pulse Rate 85 02/23/19 14:47 Respiratory Rate 23 H 02/23/19 14:47 Blood Pressure 140/64 02/23/19 14:47 O2 Sat by Pulse Oximetry (%) 100 02/22/19 21:00 Constitutional: Yes: No Distress Eyes: Yes: Conjunctiva Clear Cardiovascular: Yes: Regular Rate and Rhythm, S1, S2 Respiratory: Yes: Mechanically Ventilated Gastrointestinal: Yes: Normal Bowel Sounds, Soft. No: Tenderness Edema: Yes Labs: CBC, BMP 02/23/19 06:00 02/21/19 07:35 INR, PTT INR 1.05 (0.83-1.09) 02/18/19 09:58 Assessment/Plan UTI R/O SEPSIS SECONDARY TO UTI STAGE IV SACRAL DECUBITUS LEUKOCYTOSIS CHRONIC RESPIRATORY FAILURE Day #12 AVYCAZ D/C ANTIBIOTICS OBSERVE OFF
--- NOTE | 2019-02-23 17:01 | PN ---
Progress Note (short form) - Note Progress Note: Surgery follow up note: Asked to reevaluate sacral wound. Vital Signs Period Temp Pulse Resp BP Sys/[place] Pulse Ox Last 24 Hr 97.4 F-99.1 F 79-97 18-24 118-152/60-74 98-100 Sacrum: mild fibrinous material at base of wound. No foul odor. wound size 11 x 9 cm, depth 4 cm deep. It is undermined on the left lateral side about 4 cm. CBC, BMP 02/23/19 06:00 02/21/19 07:35 A/P: 78 yo female with large sacral wound Local wound care reordered today, added santyl with moist dressing, optifoam D/w Dr. Shore, no surgical debridement needed.
[2019-02-23] MEDS: ALBUTEROL SO4 0.083% IH SOL 2.5 MG/3 ML VIAL.NEB. NEB PRN (20:10)
[2019-02-23] MEDS: ATORVASTATIN CA 80 MG TABLET (FP) PO SCH (23:49)
[2019-02-24] MEDS: CEFTAZIDIME/AVIBACTAM 2.5 GM in DEXTROSE 5%-WATER - 250 ML IVPB SCH ×2 (01:31→09:46)
[2019-02-24] MEDS: ALBUTEROL SO4 0.083% IH SOL 2.5 MG/3 ML VIAL.NEB. NEB PRN (02:00)
[2019-02-24] MEDS: METOPROLOL TARTRATE 25 MG TABLET (FP) PO SCH ×3 (06:26→21:09)
[2019-02-24] MEDS: FUROSEMIDE 20 MG TABLET (FP) PO SCH ×2 (06:26→16:37)
[2019-02-24] MEDS: INSULIN SLIDING SCALE (NOVOLOG) 1 VIAL SQ SCH ×4 (06:27→21:09)
[2019-02-24] MEDS: NYSTATIN POWDER 100,000 UNITS/GM - 15 GM TOPICAL POWDER TP SCH ×3 (06:31→21:13)
[2019-02-24] MEDS: PANTOPRAZOLE SODIUM 40 MG VIAL IVPUSH SCH (09:41)
--- NOTE | 2019-02-24 10:10 | PN ---
Progress Note (short form) - Note Progress Note: CANCEL DISCHARGE UNTIL WOUND IS CHECKED TOMORROW Problem List - Problems (1) Sacral decubitus ulcer Code(s): L89.159 - PRESSURE ULCER OF SACRAL REGION, UNSPECIFIED STAGE (2) Anemia Code(s): D64.9 - ANEMIA, UNSPECIFIED Qualifiers: Anemia type: unspecified type Qualified Code(s): D64.9 - Anemia, unspecified (3) CHF exacerbation Code(s): I50.9 - HEART FAILURE, UNSPECIFIED Qualifiers: Heart failure type: unspecified Qualified Code(s): I50.9 - Heart failure, unspecified (4) Sepsis Code(s): A41.9 - SEPSIS, UNSPECIFIED ORGANISM Qualifiers: Sepsis type: sepsis due to unspecified organism Sepsis acute organ dysfunction status: without acute organ dysfunction Qualified Code(s): A41.9 - Sepsis, unspecified organism (5) Stage 4 skin ulcer of sacral region Code(s): L98.429 - NON-PRESSURE CHRONIC ULCER OF BACK WITH UNSPECIFIED SEVERITY (6) A-fib Code(s): I48.91 - UNSPECIFIED ATRIAL FIBRILLATION Qualifiers: Atrial fibrillation type: persistent (7) CAD (coronary artery disease) Code(s): I25.10 - ATHSCL HEART DISEASE OF [place] CORONARY ARTERY W/O ANG PCTRS Qualifiers: Coronary Disease-Associated Artery/Lesion type: [place] artery [place] vs. transplanted heart: [place] heart Associated angina: without angina Qualified Code(s): I25.10 - Atherosclerotic heart disease of [place] coronary artery without angina pectoris (8) CKD (chronic kidney disease) Code(s): N18.9 - CHRONIC KIDNEY DISEASE, UNSPECIFIED Qualifiers: Chronic kidney disease stage: stage 2 (mild) Qualified Code(s): N18.2 - Chronic kidney disease, stage 2 (mild) (9) Diabetes mellitus Code(s): E11.9 - TYPE 2 DIABETES MELLITUS WITHOUT COMPLICATIONS Qualifiers: Diabetes mellitus type: type 2
--- NOTE | 2019-02-24 10:45 | PN ---
Progress Note (short form) - Note Progress Note: Vented, AC Mode. Awake. No fevers recorded. Intake & Output 02/21/19 02/22/19 02/23/19 02/24/19 23:59 23:59 23:59 23:59 Intake Total 2700 2900 2950 Output Total 8980 061 3569 800 Balance 950 2400 1000 -800 Last Vital Signs Temp Pulse Resp BP Pulse Ox 98.8 F 82 18 113/53 L 100 02/24/19 09:33 02/24/19 09:33 02/24/19 09:33 02/24/19 09:33 02/23/19 21:00 Active Medications Albuterol Sulfate (Ventolin 0.083% Nebulizer Soln -) 1 amp NEB Q4H PRN PRN Reason: SHORT OF BREATH/WHEEZING Last Admin: 02/24/19 02:00 Dose: 1 amp Amino Acids (Prosource No Carb Liquid Pkt) 30 ml GT BID@0800,1730 [facility] Apixaban (Eliquis -) 5 mg PO BID [facility] Last Admin: 02/23/19 23:50 Dose: 5 mg Atorvastatin Calcium (Lipitor -) 80 mg PO HS [facility] Last Admin: 02/23/19 23:49 Dose: 80 mg Collagenase (Santyl -) 1 applic TP DAILY [facility]; Protocol Ferrous Sulfate (Feosol) 300 mg GT BID [facility] Fluoxetine HCl (Prozac Oral Solution -) 20 mg PO DAILY [facility] Last Admin: 02/23/19 13:11 Dose: 20 mg Furosemide (Lasix -) 20 mg PO BID@0600,1400 [facility] Last Admin: 02/24/19 06:26 Dose: 20 mg Ceftazidime/Avibactam 2.5 gm/ (Dextrose) 250 mls @ 125 mls/hr IVPB Q8H-IV [facility]; Protocol Last Admin: 02/24/19 09:46 Dose: 125 mls/hr Insulin Aspart (Novolog Vial Sliding Scale -) 1 vial SQ ACHS [facility]; Protocol Last Admin: 02/24/19 06:27 Dose: 6 units Lisinopril (Prinivil) 10 mg PEG DAILY [facility] Last Admin: 02/23/19 11:03 Dose: 10 mg Metoprolol Tartrate (Lopressor Injection -) 5 mg IVPUSH Q4H PRN PRN Reason: TACHYCARDIA Last Admin: 02/11/19 10:03 Dose: 5 mg Metoprolol Tartrate (Lopressor -) 75 mg PO TID [facility] Last Admin: 02/24/19 06:26 Dose: 75 mg Nystatin (Nystop Powder -) 1 applic TP TID [facility] Last Admin: 02/24/19 06:31 Dose: 1 applic Pantoprazole Sodium (Protonix Iv) 40 mg IVPUSH DAILY [facility] Last Admin: 02/24/19 09:41 Dose: 40 mg Gen: vented, awake Heart: RRR Lung: decreased breath sounds at the bases Abd: soft, nontender Ext: + edema Laboratory Results - last 24 hr 02/23/19 02/23/19 02/23/19 11:57 17:24 23:42 POC Glucometer 302 272 289 02/24/19 05:52 POC Glucometer 295 A/P UTI Sacral Decubitus Ulcer Sepsis Volume Overload Acute on Chronic Diastolic Heart Failure Chronic Respiratory Failure h/o CVA COPD Atrial Fibrillation h/o GI Bleed HTN DM Anemia - Off Antibiotics per ID - rate controlled - Anticoagulation - Monitor H/H - enteral feeds - DVT/GI prophylaxis - There is no Pulmonary contraindication for DC planning Dr Stover
[2019-02-24] MEDS: APIXABAN 5 MG TABLET PO SCH ×2 (11:15→21:09)
[2019-02-24] MEDS: LISINOPRIL 10 MG TABLET (FP) PEG SCH (11:16)
[2019-02-24] MEDS: FLUoxetine HCL 20 MG/5 ML 120 BOTTLE PO SCH (11:16)
--- NOTE | 2019-02-24 11:29 | PN ---
Progress Note, Physician Chief Complaint: Pleural Effusion Afib Stage 4 Ulcer sacral region History of Present Illness: Previous notes and events reviewed mechanically ventilated NAD no acute events overnight pending re-eval of sacral wound then will begin dc planning as per pt spouse pt has been having episodes of diarrhea, rectal tube in place - Current Medication List Current Medications: Active Medications Albuterol Sulfate (Ventolin 0.083% Nebulizer Soln -) 1 amp NEB Q4H PRN PRN Reason: SHORT OF BREATH/WHEEZING Last Admin: 02/24/19 02:00 Dose: 1 amp Amino Acids (Prosource No Carb Liquid Pkt) 30 ml GT BID@0800,1730 [facility] Apixaban (Eliquis -) 5 mg PO BID [facility] Last Admin: 02/24/19 11:15 Dose: 5 mg Atorvastatin Calcium (Lipitor -) 80 mg PO HS [facility] Last Admin: 02/23/19 23:49 Dose: 80 mg Collagenase (Santyl -) 1 applic TP DAILY [facility]; Protocol Ferrous Sulfate (Feosol) 300 mg GT BID [facility] Fluoxetine HCl (Prozac Oral Solution -) 20 mg PO DAILY [facility] Last Admin: 02/24/19 11:16 Dose: 20 mg Furosemide (Lasix -) 20 mg PO BID@0600,1400 [facility] Last Admin: 02/24/19 06:26 Dose: 20 mg Ceftazidime/Avibactam 2.5 gm/ (Dextrose) 250 mls @ 125 mls/hr IVPB Q8H-IV [facility]; Protocol Last Admin: 02/24/19 09:46 Dose: 125 mls/hr Insulin Aspart (Novolog Vial Sliding Scale -) 1 vial SQ ACHS [facility]; Protocol Last Admin: 02/24/19 11:17 Dose: 10 units Lisinopril (Prinivil) 10 mg PEG DAILY [facility] Last Admin: 02/24/19 11:16 Dose: Not Given Metoprolol Tartrate (Lopressor Injection -) 5 mg IVPUSH Q4H PRN PRN Reason: TACHYCARDIA Last Admin: 02/11/19 10:03 Dose: 5 mg Metoprolol Tartrate (Lopressor -) 75 mg PO TID [facility] Last Admin: 02/24/19 06:26 Dose: 75 mg Nystatin (Nystop Powder -) 1 applic TP TID [facility] Last Admin: 02/24/19 06:31 Dose: 1 applic Pantoprazole Sodium (Protonix Iv) 40 mg IVPUSH DAILY [facility] Last Admin: 02/24/19 09:41 Dose: 40 mg - Objective Vital Signs: Vital Signs Temperature 98.8 F 02/24/19 09:33 Pulse Rate 82 02/24/19 09:33 Respiratory Rate 18 02/24/19 09:33 Blood Pressure 113/53 L 02/24/19 09:33 O2 Sat by Pulse Oximetry (%) 100 02/23/19 21:00 Constitutional: Yes: No Distress, Calm Eyes: Yes: Conjunctiva Clear HENT: Yes: Atraumatic Cardiovascular: Yes: Regular Rate and Rhythm Respiratory: Yes: Regular, Diminished, Mechanically Ventilated Gastrointestinal: Yes: Normal Bowel Sounds, Soft, Other (g tube) ...Rectal Exam: Yes: Other (rectal tube) Genitourinary: Yes: [place] Present Musculoskeletal: Yes: Muscle Weakness Extremities: Yes: WNL Edema: Yes Edema: LUE: 2+, RUE: 2+, LLE: 1+, RLE: 1+ Integumentary: Yes: Pressure Ulcer Neurological: Yes: Alert, Pre-Existing Deficit Psychiatric: Yes: Alert Labs: CBC, BMP 02/23/19 06:00 02/21/19 07:35 INR, PTT INR 1.05 (0.83-1.09) 02/18/19 09:58 Microbiology 02/09/19 20:50 Blood - Peripheral Venous Blood Culture - Final NO GROWTH AFTER 5 DAYS INCUBATION 02/09/19 20:50 Blood - Peripheral Venous Blood Culture - Final NO GROWTH AFTER 5 DAYS INCUBATION 02/10/19 05:30 Coccyx Gram Stain - Final 02/10/19 05:30 Coccyx Wound Culture - Final Enterobacter Cloacae Proteus Mirabilis Enterococcus Faecalis 02/09/19 20:50 Urine - Urine Clean Catch Urine Culture - Final Enterobacter Cloacae Problem List - Problems (1) Acute and chronic respiratory failure Assessment/Plan: -Pulm on board -mechanically ventilated -keep SpO2 >90% Code(s): J96.20 - ACUTE AND CHR RESP FAILURE, UNSP W HYPOXIA OR HYPERCAPNIA (2) Anemia Assessment/Plan: -Hg 9.1 -monitor Hg daily, transfuse for Hg <7.0 to avoid fluid overload -GI on board -EGD on 02/18/19 shows mild patchy antral erythema, no obvious ulcers -Stool OB positive Code(s): D64.9 - ANEMIA, UNSPECIFIED Qualifiers: Anemia type: unspecified type Qualified Code(s): D64.9 - Anemia, unspecified (3) Pleural effusion Assessment/Plan: -Pulm on board -Furosemide -keep SpO2 >90% -CXR moderate bilateral pleural effusion with vascular congestive changes Code(s): J90 - PLEURAL EFFUSION, NOT ELSEWHERE CLASSIFIED (4) Sepsis Assessment/Plan: -ID on board -Avycaz discontinued, observe off as per ID -BC neg -UC positive, Sacral wound culture positive -no leukocytosis -afebrile -LA 1.5 Code(s): A41.9 - SEPSIS, UNSPECIFIED ORGANISM Qualifiers: Sepsis type: sepsis due to unspecified organism Sepsis acute organ dysfunction status: without acute organ dysfunction Qualified Code(s): A41.9 - Sepsis, unspecified organism (5) Stage 4 skin ulcer of sacral region Assessment/Plan: -Sacral wound culture positive -ID on board -santyl with moist dressing -leukocytosis -air mattress -turn q2h -offloading -pack wound with moist kerlix and cover with OPTIfoam -daily dressing changes Code(s): L98.429 - NON-PRESSURE CHRONIC ULCER OF BACK WITH UNSPECIFIED SEVERITY (6) A-fib Assessment/Plan: -Eliquis and Metoprolol Code(s): I48.91 - UNSPECIFIED ATRIAL FIBRILLATION Qualifiers: Atrial fibrillation type: persistent (7) Diabetes mellitus Assessment/Plan: -BGM ACHS -HgA1c 7.6% -ISS Code(s): E11.9 - TYPE 2 DIABETES MELLITUS WITHOUT COMPLICATIONS Qualifiers: Diabetes mellitus type: type 2 (8) GIB (gastrointestinal bleeding) Assessment/Plan: -Hg 9.1 -monitor Hg daily, transfuse for Hg <7.0 to avoid fluid overload -GI on board -EGD on 02/18/19 shows mild patchy antral erythema, no obvious ulcers -Stool OB positive Code(s): K92.2 - GASTROINTESTINAL HEMORRHAGE, UNSPECIFIED Qualifiers: GI bleed type/associated pathology: unspecified gastrointestinal hemorrhage type Qualified Code(s): K92.2 - Gastrointestinal hemorrhage, unspecified (9) UTI (urinary tract infection) Assessment/Plan: -ID on board -UC positive -no leukocytosis -afebrile -Avycaz completed, observe off as per ID Code(s): N39.0 - URINARY TRACT INFECTION, SITE NOT SPECIFIED Qualifiers: Urinary tract infection type: acute cystitis Hematuria presence: with hematuria Qualified Code(s): N30.01 - Acute cystitis with hematuria (10) CAD (coronary artery disease) Assessment/Plan: -Atorvastatin Code(s): I25.10 - ATHSCL HEART DISEASE OF [place] CORONARY ARTERY W/O ANG PCTRS Qualifiers: Coronary Disease-Associated Artery/Lesion type: [place] artery [place] vs. transplanted heart: [place] heart Associated angina: without angina Qualified Code(s): I25.10 - Atherosclerotic heart disease of [place] coronary artery without angina pectoris (11) COPD (chronic obstructive pulmonary disease) Assessment/Plan: -Pulm on board -mechanically ventilated -keep SpO2 >90% Code(s): J44.9 - CHRONIC OBSTRUCTIVE PULMONARY DISEASE, UNSPECIFIED (12) Hyperlipidemia Assessment/Plan: -Atorvastatin Code(s): E78.5 - HYPERLIPIDEMIA, UNSPECIFIED Qualifiers: Hyperlipidemia type: pure hypercholesterolemia Qualified Code(s): E78.00 - Pure hypercholesterolemia, unspecified; E78.0 - Pure hypercholesterolemia Assessment/Plan see problem list begin d/c planning after wounds re-evaluated
[2019-02-24] MEDS: COLLAGENASE CLOSTRIDIUM HIST. 30 GRAMS TUBE TP SCH (11:45)
--- NOTE | 2019-02-24 14:07 | PN ---
Progress Note, Physician History of Present Illness: Afebrile, hemodynamics stable, remains in rate-controlled afib. EGD revealing mild patchy antral erythema otherwise unremarkable. No obvious ulcers or angioectasias seen. - Current Medication List Current Medications: Active Medications Albuterol Sulfate (Ventolin 0.083% Nebulizer Soln -) 1 amp NEB Q4H PRN PRN Reason: SHORT OF BREATH/WHEEZING Last Admin: 02/24/19 02:00 Dose: 1 amp Amino Acids (Prosource No Carb Liquid Pkt) 30 ml GT BID@0800,1730 [facility] Apixaban (Eliquis -) 5 mg PO BID [facility] Last Admin: 02/24/19 11:15 Dose: 5 mg Atorvastatin Calcium (Lipitor -) 80 mg PO HS [facility] Last Admin: 02/23/19 23:49 Dose: 80 mg Collagenase (Santyl -) 1 applic TP DAILY [facility]; Protocol Ferrous Sulfate (Feosol) 300 mg GT BID [facility] Fluoxetine HCl (Prozac Oral Solution -) 20 mg PO DAILY [facility] Last Admin: 02/24/19 11:16 Dose: 20 mg Furosemide (Lasix -) 20 mg PO BID@0600,1400 [facility] Last Admin: 02/24/19 06:26 Dose: 20 mg Ceftazidime/Avibactam 2.5 gm/ (Dextrose) 250 mls @ 125 mls/hr IVPB Q8H-IV [facility]; Protocol Last Admin: 02/24/19 09:46 Dose: 125 mls/hr Insulin Aspart (Novolog Vial Sliding Scale -) 1 vial SQ ACHS [facility]; Protocol Last Admin: 02/24/19 11:17 Dose: 10 units Lisinopril (Prinivil) 10 mg PEG DAILY [facility] Last Admin: 02/24/19 11:16 Dose: Not Given Metoprolol Tartrate (Lopressor Injection -) 5 mg IVPUSH Q4H PRN PRN Reason: TACHYCARDIA Last Admin: 02/11/19 10:03 Dose: 5 mg Metoprolol Tartrate (Lopressor -) 75 mg PO TID [facility] Last Admin: 02/24/19 06:26 Dose: 75 mg Nystatin (Nystop Powder -) 1 applic TP TID [facility] Last Admin: 02/24/19 06:31 Dose: 1 applic Pantoprazole Sodium (Protonix Iv) 40 mg IVPUSH DAILY [facility] Last Admin: 02/24/19 09:41 Dose: 40 mg - Objective Vital Signs: Vital Signs Temperature 98.8 F 02/24/19 09:33 Pulse Rate 82 02/24/19 09:33 Respiratory Rate 18 02/24/19 09:33 Blood Pressure 113/53 L 02/24/19 09:33 O2 Sat by Pulse Oximetry (%) 100 02/23/19 21:00 Constitutional: Yes: No Distress, Calm Neck: Yes: Other (Tracheostomy) Cardiovascular: Yes: Regular Rate and Rhythm Respiratory: Yes: Mechanically Ventilated, Rhonchi Gastrointestinal: Yes: Normal Bowel Sounds, Soft, Other (PEG in place) Edema: Yes Labs: CBC, BMP 02/23/19 06:00 02/21/19 07:35 INR, PTT INR 1.05 (0.83-1.09) 02/18/19 09:58 Problem List - Problems (1) Anemia Code(s): D64.9 - ANEMIA, UNSPECIFIED Qualifiers: Anemia type: unspecified type Qualified Code(s): D64.9 - Anemia, unspecified (2) CHF exacerbation Code(s): I50.9 - HEART FAILURE, UNSPECIFIED Qualifiers: Heart failure type: unspecified Qualified Code(s): I50.9 - Heart failure, unspecified (3) Sepsis Code(s): A41.9 - SEPSIS, UNSPECIFIED ORGANISM Qualifiers: Sepsis type: sepsis due to unspecified organism Sepsis acute organ dysfunction status: without acute organ dysfunction Qualified Code(s): A41.9 - Sepsis, unspecified organism (4) Stage 4 skin ulcer of sacral region Code(s): L98.429 - NON-PRESSURE CHRONIC ULCER OF BACK WITH UNSPECIFIED SEVERITY (5) UTI (urinary tract infection) Code(s): N39.0 - URINARY TRACT INFECTION, SITE NOT SPECIFIED Qualifiers: Urinary tract infection type: catheter-associated UTI Indwelling urinary catheter type: unspecified Encounter type: initial encounter Qualified Code( s): T83.511A - Infection and inflammatory reaction due to indwelling urethral catheter, initial encounter; N39.0 - Urinary tract infection, site not specified (6) A-fib Code(s): I48.91 - UNSPECIFIED ATRIAL FIBRILLATION Qualifiers: Atrial fibrillation type: persistent (7) Angiodysplasia of colon with hemorrhage Code(s): K55.21 - ANGIODYSPLASIA OF COLON WITH HEMORRHAGE (8) CAD (coronary artery disease) Code(s): I25.10 - ATHSCL HEART DISEASE OF [place] CORONARY ARTERY W/O ANG PCTRS Qualifiers: Coronary Disease-Associated Artery/Lesion type: [place] artery [place] vs. transplanted heart: [place] heart Associated angina: without angina Qualified Code(s): I25.10 - Atherosclerotic heart disease of [place] coronary artery without angina pectoris (9) CKD (chronic kidney disease) Code(s): N18.9 - CHRONIC KIDNEY DISEASE, UNSPECIFIED Qualifiers: Chronic kidney disease stage: stage 2 (mild) Qualified Code(s): N18.2 - Chronic kidney disease, stage 2 (mild) (10) CVA (cerebral vascular accident) Code(s): I63.9 - CEREBRAL INFARCTION, UNSPECIFIED Qualifiers: CVA mechanism: embolism (11) Diabetes mellitus Code(s): E11.9 - TYPE 2 DIABETES MELLITUS WITHOUT COMPLICATIONS Qualifiers: Diabetes mellitus type: type 2 (12) GIB (gastrointestinal bleeding) Code(s): K92.2 - GASTROINTESTINAL HEMORRHAGE, UNSPECIFIED Qualifiers: GI bleed type/associated pathology: unspecified gastrointestinal hemorrhage type Qualified Code(s): K92.2 - Gastrointestinal hemorrhage, unspecified (13) Hemoglobin decreased Code(s): R71.0 - PRECIPITOUS DROP IN HEMATOCRIT (14) Diabetes mellitus Code(s): E11.9 - TYPE 2 DIABETES MELLITUS WITHOUT COMPLICATIONS Qualifiers: Diabetes mellitus type: type 2 Diabetes mellitus long-term insulin use: without ferry terminal supervisor use Diabetes mellitus complication status: without complication Qualified Code(s): E11.9 - Type 2 diabetes mellitus without complications (15) H/O mitral valve replacement Code(s): Z95.2 - PRESENCE OF PROSTHETIC HEART VALVE (16) HTN (hypertension) Code(s): I10 - ESSENTIAL (PRIMARY) HYPERTENSION Qualifiers: Hypertension type: essential hypertension Qualified Code(s): I10 - Essential (primary) hypertension (17) Hyperlipidemia Code(s): E78.5 - HYPERLIPIDEMIA, UNSPECIFIED Qualifiers: Hyperlipidemia type: pure hypercholesterolemia Qualified Code(s): E78.00 - Pure hypercholesterolemia, unspecified; E78.0 - Pure hypercholesterolemia (18) Pacemaker Code(s): Z95.0 - PRESENCE OF CARDIAC PACEMAKER Assessment/Plan 02/18/2019 EGD revealing mild patchy antral erythema otherwise unremarkable. No obvious ulcers or angioectasias seen 04/30/2018 Echo: Normal LV size and fxn, severe TR RVSP 50-60 mmHg, mild MR EGD and colonoscopy in 07/2017 revealing gastritis, cecal AVM and four tubular adenomas 12/17/2016 reveal: 03/2009 acute systolic CHF and MS, R&LHc 90% distal OM1, 60% D1, preserved LV fxn, elevated LVEDP [place] severe posterior leaflet prolapse with severe MR->MV annuloplasty repair, afib, sinus arrest->PPM, CAD left alone. [facility] Echo: 06/28/16 normal biventricular fxn, COSMO, mod TR, MV ring Nuc stress 09/13/2016 Anterolateral ischemia/infarct SDS 3 EF 82%, abnl ecg changes 1. Acute on chronic diastolic heart failure resolving 2. Chronic respiratory failure s/p tracheostomy and PEG 3. Coronary artery disease demand ischemic injury angina pectoris 4. Permanent atrial fibrillation [id number] score of 9 5. Sick sinus syndrome post permanent pacemaker implantation 6. Post mitral valve repair 7. UTI 8. Sacral decubitus ulcer Infection 9. HTN 7. DM 10. Hypercholesterolemia 11. 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 COPD 13. Hypernatremia resolved 14. Anemia post transfusion, h/o GI bleed, cecal AVMs PLAN: 1. Completed antibiotics coverage per ID 2. Monitor H/H post transfusion and continue Eliquis 5 bid as hemostasis assured per GI input 3. Continue Lasix 20 bid with monitoring diuretic response, renal function and electrolytes 4. Continue Lopressor 75 mg TID, Lipitor 80 qd, and lisinopril 10 qd. IV Lopressor as needed. Currently off Ranexa. 5. Continue enteral feeds 6. Wound care, DVT and GI prophylaxis 7. AC mode vent support 8. As no obvious source for anemia found, colonoscopy could be considered based on prior findings of cecal AVMs, but daughter Roxie MCGINNIS) declines, opting for conservative measures with iron or transfusion as needed.
[2019-02-24] MEDS: AMINO ACIDS/PROTEIN HYDROLYS 30 ML LIQUID.PKT GT SCH (16:47)
[2019-02-24] MEDS ORDERED: ACETAMINOPHEN 325 MG TABLET (FP) PO PRN (20:48)
[2019-02-24] MEDS ORDERED: INSULIN (NOVOLOG) ASPART 100 UNITS/ML 10ML VIAL ONE (21:05)
[2019-02-24] MEDS: FERROUS SO4 300 MG/5 ML ORAL SOLN UNIT DOSE CUPS GT SCH (21:09)
[2019-02-24] MEDS: ATORVASTATIN CA 80 MG TABLET (FP) PO SCH (21:09)
[2019-02-25] MEDS: INSULIN SLIDING SCALE (NOVOLOG) 1 VIAL SQ SCH ×4 (06:17→22:42)
[2019-02-25] MEDS: METOPROLOL TARTRATE 25 MG TABLET (FP) PO SCH ×3 (06:19→22:19)
[2019-02-25] MEDS: NYSTATIN POWDER 100,000 UNITS/GM - 15 GM TOPICAL POWDER TP SCH ×3 (06:19→22:19)
[2019-02-25] MEDS: FUROSEMIDE 20 MG TABLET (FP) PO SCH ×2 (06:19→14:40)
[2019-02-25] MEDS ORDERED: PT OWN MED DRAWER 7, Y5N ONE ×2 (06:38→09:30)
[2019-02-25 08:31] LABS: HEMATOCRIT 28.7 % (32.4-45.2); HEMOGLOBIN 8.6 GM/dL (10.7-15.3); MCH 25.7 pg (25.7-33.7); MEAN CELL VOLUME 85.8 fl (80-96); PLATELET COUNT 256 K/MM3 (134-434); RBC 3.34 M/mm3 (3.60-5.2); RDW 19.8 % (11.6-15.6); WHITE BLOOD COUNT 10.3 K/mm3 (4.0-10.0)
[2019-02-25] MEDS: AMINO ACIDS/PROTEIN HYDROLYS 30 ML LIQUID.PKT GT SCH ×2 (09:00→16:59)
[2019-02-25] MEDS: PANTOPRAZOLE SODIUM 40 MG VIAL IVPUSH SCH (09:35)
[2019-02-25] MEDS: FERROUS SO4 300 MG/5 ML ORAL SOLN UNIT DOSE CUPS GT SCH ×2 (09:35→22:19)
[2019-02-25] MEDS: LISINOPRIL 10 MG TABLET (FP) PEG SCH (09:35)
[2019-02-25] MEDS: APIXABAN 5 MG TABLET PO SCH ×2 (09:35→22:19)
[2019-02-25] MEDS: FLUoxetine HCL 20 MG/5 ML 120 BOTTLE PO SCH (09:36)
[2019-02-25 09:45] LABS: ALBUMIN 1.2 g/dl (3.4-5.0); BILIRUBIN,TOTAL 0.2 mg/dL (0.2-1); BLOOD UREA NITROGEN 26.7 mg/dL (7-18); CALCIUM 8.3 mg/dL (8.5-10.1); CREATININE 0.8 mg/dL (0.55-1.3); POTASSIUM 3.9 mmol/L (3.5-5.1); TOT PROT 5.3 g/dl (6.4-8.2)
--- NOTE | 2019-02-25 09:57 | PN ---
Progress Note, Physician Chief Complaint: Pleural Effusion Afib Stage 4 Ulcer sacral region History of Present Illness: mechanically ventilated NAD no leukocytosis afebrile Rectal tube in place 2/2 to diarrhea D/C cancelled yesterday pending sacral wound re-eval - Current Medication List Current Medications: Active Medications Acetaminophen (Tylenol -) 650 mg PO Q6H PRN PRN Reason: PAIN Last Admin: 02/24/19 21:10 Dose: 650 mg Albuterol Sulfate (Ventolin 0.083% Nebulizer Soln -) 1 amp NEB Q4H PRN PRN Reason: SHORT OF BREATH/WHEEZING Last Admin: 02/24/19 02:00 Dose: 1 amp Amino Acids (Prosource No Carb Liquid Pkt) 30 ml GT BID@0800,1730 [facility] Last Admin: 02/25/19 09:00 Dose: 30 ml Apixaban (Eliquis -) 5 mg PO BID [facility] Last Admin: 02/25/19 09:35 Dose: 5 mg Atorvastatin Calcium (Lipitor -) 80 mg PO HS [facility] Last Admin: 02/24/19 21:09 Dose: 80 mg Collagenase (Santyl -) 1 applic TP DAILY [facility]; Protocol Last Admin: 02/24/19 11:45 Dose: 1 applic Ferrous Sulfate (Feosol) 300 mg GT BID [facility] Last Admin: 02/25/19 09:35 Dose: 300 mg Fluoxetine HCl (Prozac Oral Solution -) 20 mg PO DAILY [facility] Last Admin: 02/25/19 09:36 Dose: 20 mg Furosemide (Lasix -) 20 mg PO BID@0600,1400 [facility] Last Admin: 02/25/19 06:19 Dose: 20 mg Insulin Aspart (Novolog Vial Sliding Scale -) 1 vial SQ ACHS [facility]; Protocol Last Admin: 02/25/19 06:17 Dose: 8 units Lisinopril (Prinivil) 10 mg PEG DAILY [facility] Last Admin: 02/25/19 09:35 Dose: Not Given Metoprolol Tartrate (Lopressor Injection -) 5 mg IVPUSH Q4H PRN PRN Reason: TACHYCARDIA Last Admin: 02/11/19 10:03 Dose: 5 mg Metoprolol Tartrate (Lopressor -) 75 mg PO TID [facility] Last Admin: 02/25/19 06:19 Dose: 75 mg Nystatin (Nystop Powder -) 1 applic TP TID [facility] Last Admin: 02/25/19 06:19 Dose: 1 applic Pantoprazole Sodium (Protonix Iv) 40 mg IVPUSH DAILY [facility] Last Admin: 02/25/19 09:35 Dose: 40 mg - Objective Vital Signs: Vital Signs Temperature 97.4 F L 02/25/19 09:18 Pulse Rate 82 02/25/19 09:18 Respiratory Rate 20 02/25/19 09:18 Blood Pressure 117/54 L 02/25/19 09:18 O2 Sat by Pulse Oximetry (%) 100 02/24/19 21:00 Constitutional: Yes: Well Nourished, No Distress, Calm Cardiovascular: Yes: Regular Rate and Rhythm Respiratory: Yes: Mechanically Ventilated, Rhonchi (diffuse) Gastrointestinal: Yes: Soft, Hyperactive Bowel Sounds Genitourinary: Yes: [place] Present Musculoskeletal: Yes: Other (generalized atrophy) Extremities: Yes: WNL Edema: Yes Edema: LUE: 2+, RUE: 2+, LLE: 1+, RLE: 1+ Peripheral Pulses WNL: Yes Neurological: Yes: Pre-Existing Deficit Labs: CBC, BMP 02/25/19 07:45 02/25/19 07:45 INR, PTT INR 1.05 (0.83-1.09) 02/18/19 09:58 Assessment/Plan (1) Acute and chronic respiratory failure Assessment/Plan: -Pulm on board -mechanically ventilated -keep SpO2 >90% Code(s): J96.20 - ACUTE AND CHR RESP FAILURE, UNSP W HYPOXIA OR HYPERCAPNIA (2) Anemia Assessment/Plan: -monitor Hg daily, transfuse for Hg <7.0 to avoid fluid overload -Stool OB positive -GI on board -EGD on 02/18/19 shows mild patchy antral erythema, no obvious ulcers Code(s): D64.9 - ANEMIA, UNSPECIFIED Qualifiers: Anemia type: unspecified type Qualified Code(s): D64.9 - Anemia, unspecified (3) Pleural effusion Assessment/Plan: -Pulm on board -Furosemide -keep SpO2 >90% -CXR moderate bilateral pleural effusion with vascular congestive changes Code(s): J90 - PLEURAL EFFUSION, NOT ELSEWHERE CLASSIFIED (4) Sepsis Assessment/Plan: -ID on board -Finished IV abx -BC neg -Cultures: Microbiology 02/09/19 20:50 Blood - Peripheral Venous Blood Culture - Final NO GROWTH AFTER 5 DAYS INCUBATION 02/09/19 20:50 Blood - Peripheral Venous Blood Culture - Final NO GROWTH AFTER 5 DAYS INCUBATION 02/10/19 05:30 Coccyx Gram Stain - Final 02/10/19 05:30 Coccyx Wound Culture - Final Enterobacter Cloacae Proteus Mirabilis Enterococcus Faecalis 02/09/19 20:50 Urine - Urine Clean Catch Urine Culture - Final Enterobacter Cloacae -no leukocytosis -afebrile Code(s): A41.9 - SEPSIS, UNSPECIFIED ORGANISM Qualifiers: Sepsis type: sepsis due to unspecified organism Sepsis acute organ dysfunction status: without acute organ dysfunction Qualified Code(s): A41.9 - Sepsis, unspecified organism (5) Stage 4 skin ulcer of sacral region Assessment/Plan: -Sacral wound culture positive -ID on board -Finished IV abx -no leukocytosis -air mattress -turn q2h -offloading -pack wound with moist kerlix and cover with OPTIfoam -daily dressing changes Code(s): L98.429 - NON-PRESSURE CHRONIC ULCER OF BACK WITH UNSPECIFIED SEVERITY (6) A-fib Assessment/Plan: -Eliquis and Metoprolol Code(s): I48.91 - UNSPECIFIED ATRIAL FIBRILLATION Qualifiers: Atrial fibrillation type: persistent (7) Diabetes mellitus Assessment/Plan: -BGM ACHS -HgA1c 7.6% -ISS Code(s): E11.9 - TYPE 2 DIABETES MELLITUS WITHOUT COMPLICATIONS Qualifiers: Diabetes mellitus type: type 2 (8) GIB (gastrointestinal bleeding) Assessment/Plan: -monitor Hg daily, transfuse for Hg <7.0 to avoid fluid overload -GI on board -EGD on 02/18/19 shows mild patchy antral erythema, no obvious ulcers -Stool OB positive Code(s): K92.2 - GASTROINTESTINAL HEMORRHAGE, UNSPECIFIED Qualifiers: GI bleed type/associated pathology: unspecified gastrointestinal hemorrhage type Qualified Code(s): K92.2 - Gastrointestinal hemorrhage, unspecified (9) UTI (urinary tract infection) Assessment/Plan: -ID on board -UC positive -no leukocytosis -afebrile Code(s): N39.0 - URINARY TRACT INFECTION, SITE NOT SPECIFIED Qualifiers: Urinary tract infection type: acute cystitis Hematuria presence: with hematuria Qualified Code(s): N30.01 - Acute cystitis with hematuria (10) CAD (coronary artery disease) Assessment/Plan: -Atorvastatin Code(s): I25.10 - ATHSCL HEART DISEASE OF [place] CORONARY ARTERY W/O ANG PCTRS Qualifiers: Coronary Disease-Associated Artery/Lesion type: [place] artery [place] vs. transplanted heart: [place] heart Associated angina: without angina Qualified Code(s): I25.10 - Atherosclerotic heart disease of [place] coronary artery without angina pectoris (11) COPD (chronic obstructive pulmonary disease) Assessment/Plan: -Pulm on board -mechanically ventilated -keep SpO2 >90% Code(s): J44.9 - CHRONIC OBSTRUCTIVE PULMONARY DISEASE, UNSPECIFIED (12) Hyperlipidemia Assessment/Plan: -Atorvastatin Code(s): E78.5 - HYPERLIPIDEMIA, UNSPECIFIED Qualifiers: Hyperlipidemia type: pure hypercholesterolemia Qualified Code(s): E78.00 - Pure hypercholesterolemia, unspecified; E78.0 - Pure hypercholesterolemia Assessment/Plan see problem list
--- NOTE | 2019-02-25 11:09 | PN ---
Progress Note, Physician History of Present Illness: PULMONARY AWAKE,NOT RESPONSIVE ON VENT SUPPORT AC MODE - Current Medication List Current Medications: Active Medications Acetaminophen (Tylenol -) 650 mg PO Q6H PRN PRN Reason: PAIN Last Admin: 02/24/19 21:10 Dose: 650 mg Albuterol Sulfate (Ventolin 0.083% Nebulizer Soln -) 1 amp NEB Q4H PRN PRN Reason: SHORT OF BREATH/WHEEZING Last Admin: 02/24/19 02:00 Dose: 1 amp Amino Acids (Prosource No Carb Liquid Pkt) 30 ml GT BID@0800,1730 [facility] Last Admin: 02/25/19 09:00 Dose: 30 ml Apixaban (Eliquis -) 5 mg PO BID [facility] Last Admin: 02/25/19 09:35 Dose: 5 mg Atorvastatin Calcium (Lipitor -) 80 mg PO HS [facility] Last Admin: 02/24/19 21:09 Dose: 80 mg Collagenase (Santyl -) 1 applic TP DAILY [facility]; Protocol Last Admin: 02/24/19 11:45 Dose: 1 applic Ferrous Sulfate (Feosol) 300 mg GT BID [facility] Last Admin: 02/25/19 09:35 Dose: 300 mg Fluoxetine HCl (Prozac Oral Solution -) 20 mg PO DAILY [facility] Last Admin: 02/25/19 09:36 Dose: 20 mg Furosemide (Lasix -) 20 mg PO BID@0600,1400 [facility] Last Admin: 02/25/19 06:19 Dose: 20 mg Insulin Aspart (Novolog Vial Sliding Scale -) 1 vial SQ ACHS [facility]; Protocol Last Admin: 02/25/19 06:17 Dose: 8 units Lisinopril (Prinivil) 10 mg PEG DAILY [facility] Last Admin: 02/25/19 09:35 Dose: Not Given Metoprolol Tartrate (Lopressor Injection -) 5 mg IVPUSH Q4H PRN PRN Reason: TACHYCARDIA Last Admin: 02/11/19 10:03 Dose: 5 mg Metoprolol Tartrate (Lopressor -) 75 mg PO TID [facility] Last Admin: 02/25/19 06:19 Dose: 75 mg Nystatin (Nystop Powder -) 1 applic TP TID [facility] Last Admin: 02/25/19 06:19 Dose: 1 applic Pantoprazole Sodium (Protonix Iv) 40 mg IVPUSH DAILY [facility] Last Admin: 02/25/19 09:35 Dose: 40 mg - Objective Vital Signs: Vital Signs Temperature 97.4 F L 02/25/19 09:18 Pulse Rate 82 02/25/19 09:18 Respiratory Rate 20 02/25/19 09:18 Blood Pressure 117/54 L 02/25/19 09:18 O2 Sat by Pulse Oximetry (%) 100 02/24/19 21:00 Constitutional: Yes: Well Nourished, Calm Eyes: Yes: WNL HENT: Yes: WNL Neck: Yes: Supple (TRACH) Cardiovascular: Yes: Pulse Irregular, S1, S2 Respiratory: Yes: Diminished Gastrointestinal: Yes: Normal Bowel Sounds, Soft Extremities: Yes: WNL Edema: Yes Labs: CBC, BMP 02/25/19 07:45 02/25/19 07:45 INR, PTT INR 1.05 (0.83-1.09) 02/18/19 09:58 Problem List - Problems (1) Acute and chronic respiratory failure Code(s): J96.20 - ACUTE AND CHR RESP FAILURE, UNSP W HYPOXIA OR HYPERCAPNIA (2) Anemia Code(s): D64.9 - ANEMIA, UNSPECIFIED Qualifiers: Anemia type: unspecified type Qualified Code(s): D64.9 - Anemia, unspecified (3) CHF exacerbation Code(s): I50.9 - HEART FAILURE, UNSPECIFIED Qualifiers: Heart failure type: unspecified Qualified Code(s): I50.9 - Heart failure, unspecified (4) Sepsis Code(s): A41.9 - SEPSIS, UNSPECIFIED ORGANISM Qualifiers: Sepsis type: sepsis due to unspecified organism Sepsis acute organ dysfunction status: without acute organ dysfunction Qualified Code(s): A41.9 - Sepsis, unspecified organism (5) Stage 4 skin ulcer of sacral region Code(s): L98.429 - NON-PRESSURE CHRONIC ULCER OF BACK WITH UNSPECIFIED SEVERITY (6) A-fib Code(s): I48.91 - UNSPECIFIED ATRIAL FIBRILLATION Qualifiers: Atrial fibrillation type: persistent (7) CAD (coronary artery disease) Code(s): I25.10 - ATHSCL HEART DISEASE OF [place] CORONARY ARTERY W/O ANG PCTRS Qualifiers: Coronary Disease-Associated Artery/Lesion type: [place] artery [place] vs. transplanted heart: [place] heart Associated angina: without angina Qualified Code(s): I25.10 - Atherosclerotic heart disease of [place] coronary artery without angina pectoris (8) CKD (chronic kidney disease) Code(s): N18.9 - CHRONIC KIDNEY DISEASE, UNSPECIFIED Qualifiers: Chronic kidney disease stage: stage 2 (mild) Qualified Code(s): N18.2 - Chronic kidney disease, stage 2 (mild) (9) CVA (cerebral vascular accident) Code(s): I63.9 - CEREBRAL INFARCTION, UNSPECIFIED Qualifiers: CVA mechanism: embolism (10) H/O mitral valve replacement Code(s): Z95.2 - PRESENCE OF PROSTHETIC HEART VALVE (11) Ventilator dependent Code(s): Z99.11 - DEPENDENCE ON RESPIRATOR [VENTILATOR] STATUS Assessment/Plan ASSESSMENT AND PLAN: UTI Sacral Decubitus Ulcer Infection Sepsis Volume Overload Acute on Chronic Diastolic Heart Failure Chronic Respiratory Failure h/o CVA COPD Atrial Fibrillation h/o GI Bleed HTN DM Anemia - rate controlled - anticoagulation - monitor H/H - Lasix - monitor urine output, creatinine - Enteral feeds - vent support ac mode - DVT/GI prophylaxis - DC planning DR SALAZAR
[2019-02-25] MEDS ORDERED: INSULIN (NOVOLOG) ASPART 100 UNITS/ML 10ML VIAL ONE (11:11)
[2019-02-25] MEDS: COLLAGENASE CLOSTRIDIUM HIST. 30 GRAMS TUBE TP SCH (14:10)
[2019-02-25] MEDS: ATORVASTATIN CA 80 MG TABLET (FP) PO SCH (22:19)
[2019-02-26] MEDS: METOPROLOL TARTRATE 25 MG TABLET (FP) PO SCH ×3 (05:48→23:04)
[2019-02-26] MEDS: FUROSEMIDE 20 MG TABLET (FP) PO SCH ×2 (05:48→14:56)
[2019-02-26] MEDS: NYSTATIN POWDER 100,000 UNITS/GM - 15 GM TOPICAL POWDER TP SCH ×3 (05:49→23:16)
[2019-02-26] MEDS: INSULIN SLIDING SCALE (NOVOLOG) 1 VIAL SQ SCH ×4 (06:18→23:06)
[2019-02-26 08:14] LABS: EOS % 5.6 % (0-4.5); HEMATOCRIT 30.2 % (32.4-45.2); HEMOGLOBIN 9.1 GM/dL (10.7-15.3); LYMPH % 14.1 % (8-40); MCH 25.7 pg (25.7-33.7); MCHC 30.1 g/dl (32.0-36.0); MEAN CELL VOLUME 85.4 fl (80-96); MEAN PLT VOLUME 10.1 fl (7.5-11.1); MONO % 6.8 % (3.8-10.2); NEUT % 72.5 % (42.8-82.8); PLATELET COUNT 269 K/MM3 (134-434); RBC 3.54 M/mm3 (3.60-5.2); RDW 20.2 % (11.6-15.6); WHITE BLOOD COUNT 11.8 K/mm3 (4.0-10.0)
[2019-02-26 08:36] LABS: ALBUMIN 1.3 g/dl (3.4-5.0); BILIRUBIN,TOTAL 0.2 mg/dL (0.2-1); BLOOD UREA NITROGEN 27.5 mg/dL (7-18); CALCIUM 8.3 mg/dL (8.5-10.1); CREATININE 0.7 mg/dL (0.55-1.3); POTASSIUM 4.2 mmol/L (3.5-5.1); TOT PROT 5.6 g/dl (6.4-8.2)
[2019-02-26] MEDS: AMINO ACIDS/PROTEIN HYDROLYS 30 ML LIQUID.PKT GT SCH ×2 (08:54→18:22)
[2019-02-26] MEDS ORDERED: PT OWN MED DRAWER 7, Y5N ONE (10:59)
--- NOTE | 2019-02-26 10:59 | PN ---
Progress Note, Physician Chief Complaint: Pleural Effusion Afib Stage 4 Ulcer sacral region History of Present Illness: mechanically ventilated NAD no leukocytosis afebrile Rectal tube in place 2/2 to diarrhea Cdiff PCR pending - Current Medication List Current Medications: Active Medications Acetaminophen (Tylenol -) 650 mg PO Q6H PRN PRN Reason: PAIN Last Admin: 02/24/19 21:10 Dose: 650 mg Albuterol Sulfate (Ventolin 0.083% Nebulizer Soln -) 1 amp NEB Q4H PRN PRN Reason: SHORT OF BREATH/WHEEZING Last Admin: 02/24/19 02:00 Dose: 1 amp Amino Acids (Prosource No Carb Liquid Pkt) 30 ml GT BID@0800,1730 [facility] Last Admin: 02/26/19 08:54 Dose: 30 ml Apixaban (Eliquis -) 5 mg PO BID [facility] Last Admin: 02/25/19 22:19 Dose: 5 mg Atorvastatin Calcium (Lipitor -) 80 mg PO HS [facility] Last Admin: 02/25/19 22:19 Dose: 80 mg Collagenase (Santyl -) 1 applic TP DAILY [facility]; Protocol Last Admin: 02/25/19 14:10 Dose: 1 applic Ferrous Sulfate (Feosol) 300 mg GT BID [facility] Last Admin: 02/25/19 22:19 Dose: 300 mg Fluoxetine HCl (Prozac Oral Solution -) 20 mg PO DAILY [facility] Last Admin: 02/25/19 09:36 Dose: 20 mg Furosemide (Lasix -) 20 mg PO BID@0600,1400 [facility] Last Admin: 02/26/19 05:48 Dose: 20 mg Insulin Aspart (Novolog Vial Sliding Scale -) 1 vial SQ ACHS [facility]; Protocol Last Admin: 02/26/19 06:18 Dose: 10 units Lisinopril (Prinivil) 10 mg PEG DAILY [facility] Last Admin: 02/25/19 09:35 Dose: Not Given Metoprolol Tartrate (Lopressor Injection -) 5 mg IVPUSH Q4H PRN PRN Reason: TACHYCARDIA Last Admin: 02/11/19 10:03 Dose: 5 mg Metoprolol Tartrate (Lopressor -) 75 mg PO TID [facility] Last Admin: 02/26/19 05:48 Dose: 75 mg Nystatin (Nystop Powder -) 1 applic TP TID [facility] Last Admin: 02/26/19 05:49 Dose: 1 applic Pantoprazole Sodium (Protonix Iv) 40 mg IVPUSH DAILY [facility] Last Admin: 02/25/19 09:35 Dose: 40 mg - Objective Vital Signs: Vital Signs Temperature 97.9 F 02/26/19 06:28 Pulse Rate 82 02/26/19 09:42 Respiratory Rate 21 H 02/26/19 09:42 Blood Pressure 157/86 02/26/19 06:28 O2 Sat by Pulse Oximetry (%) 96 02/26/19 09:42 Constitutional: Yes: Well Nourished, No Distress, Calm Cardiovascular: Yes: Regular Rate and Rhythm Respiratory: Yes: Mechanically Ventilated, Rhonchi (diffuse) Gastrointestinal: Yes: Normal Bowel Sounds, Soft ...Rectal Exam: Yes: Other (rectal tube) Genitourinary: Yes: [place] Present Musculoskeletal: Yes: Other (generalized atrophy) Extremities: Yes: WNL Edema: No Peripheral Pulses WNL: Yes Integumentary: Yes: Pressure Ulcer (Stage for coccygeal) Wound/Incision: Yes: Dressing Dry and Intact Neurological: Yes: Pre-Existing Deficit Labs: CBC, BMP 02/26/19 07:10 02/26/19 07:10 INR, PTT INR 1.05 (0.83-1.09) 02/18/19 09:58 Problem List - Problems (1) Diarrhea Assessment/Plan: -Chronic -Cdiff PCR pending -If negative, will try cholestyramine Problems reviewed: Yes Code(s): R19.7 - [place], UNSPECIFIED Assessment/Plan (1) Acute and chronic respiratory failure Assessment/Plan: -Pulm on board -mechanically ventilated -keep SpO2 >90% Code(s): J96.20 - ACUTE AND CHR RESP FAILURE, UNSP W HYPOXIA OR HYPERCAPNIA (2) Anemia Assessment/Plan: -Much improved -monitor H/H, transfuse for Hg <7.0 to avoid fluid overload -Stool OB positive -GI on board -EGD on 02/18/19 shows mild patchy antral erythema, no obvious ulcers Code(s): D64.9 - ANEMIA, UNSPECIFIED Qualifiers: Anemia type: unspecified type Qualified Code(s): D64.9 - Anemia, unspecified (3) Pleural effusion Assessment/Plan: -Pulm on board -Furosemide -keep SpO2 >90% -CXR moderate bilateral pleural effusion with vascular congestive changes Code(s): J90 - PLEURAL EFFUSION, NOT ELSEWHERE CLASSIFIED (4) Sepsis Assessment/Plan: -ID on board -Finished IV abx -BC neg -Cultures: Microbiology 02/09/19 20:50 Blood - Peripheral Venous Blood Culture - Final NO GROWTH AFTER 5 DAYS INCUBATION 02/09/19 20:50 Blood - Peripheral Venous Blood Culture - Final NO GROWTH AFTER 5 DAYS INCUBATION 02/10/19 05:30 Coccyx Gram Stain - Final 02/10/19 05:30 Coccyx Wound Culture - Final Enterobacter Cloacae Proteus Mirabilis Enterococcus Faecalis 02/09/19 20:50 Urine - Urine Clean Catch Urine Culture - Final Enterobacter Cloacae -no leukocytosis -afebrile Code(s): A41.9 - SEPSIS, UNSPECIFIED ORGANISM Qualifiers: Sepsis type: sepsis due to unspecified organism Sepsis acute organ dysfunction status: without acute organ dysfunction Qualified Code(s): A41.9 - Sepsis, unspecified organism (5) Stage 4 skin ulcer of sacral region Assessment/Plan: -Sacral wound culture positive -ID on board -Finished IV abx -no leukocytosis -air mattress -turn q2h -offloading -pack wound with moist kerlix and cover with OPTIfoam -daily dressing changes -Rectal tube+ [place] catheter to promote healing of the woound Code(s): L98.429 - NON-PRESSURE CHRONIC ULCER OF BACK WITH UNSPECIFIED SEVERITY (6) A-fib Assessment/Plan: -Eliquis and Metoprolol Code(s): I48.91 - UNSPECIFIED ATRIAL FIBRILLATION Qualifiers: Atrial fibrillation type: persistent (7) Diabetes mellitus Assessment/Plan: -BGM ACHS -HgA1c 7.6% -ISS Code(s): E11.9 - TYPE 2 DIABETES MELLITUS WITHOUT COMPLICATIONS Qualifiers: Diabetes mellitus type: type 2 (8) GIB (gastrointestinal bleeding) Assessment/Plan: -monitor Hg daily, transfuse for Hg <7.0 to avoid fluid overload -GI on board -EGD on 02/18/19 shows mild patchy antral erythema, no obvious ulcers -Stool OB positive Code(s): K92.2 - GASTROINTESTINAL HEMORRHAGE, UNSPECIFIED Qualifiers: GI bleed type/associated pathology: unspecified gastrointestinal hemorrhage type Qualified Code(s): K92.2 - Gastrointestinal hemorrhage, unspecified (9) UTI (urinary tract infection) Assessment/Plan: -ID on board -UC positive -no leukocytosis -afebrile Code(s): N39.0 - URINARY TRACT INFECTION, SITE NOT SPECIFIED Qualifiers: Urinary tract infection type: acute cystitis Hematuria presence: with hematuria Qualified Code(s): N30.01 - Acute cystitis with hematuria (10) CAD (coronary artery disease) Assessment/Plan: -Atorvastatin Code(s): I25.10 - ATHSCL HEART DISEASE OF [place] CORONARY ARTERY W/O ANG PCTRS Qualifiers: Coronary Disease-Associated Artery/Lesion type: [place] artery [place] vs. transplanted heart: [place] heart Associated angina: without angina Qualified Code(s): I25.10 - Atherosclerotic heart disease of [place] coronary artery without angina pectoris (11) COPD (chronic obstructive pulmonary disease) Assessment/Plan: -Pulm on board -mechanically ventilated -keep SpO2 >90% Code(s): J44.9 - CHRONIC OBSTRUCTIVE PULMONARY DISEASE, UNSPECIFIED (12) Hyperlipidemia Assessment/Plan: -Atorvastatin Code(s): E78.5 - HYPERLIPIDEMIA, UNSPECIFIED Qualifiers: Hyperlipidemia type: pure hypercholesterolemia Qualified Code(s): E78.00 - Pure hypercholesterolemia, unspecified; E78.0 - Pure hypercholesterolemia Assessment/Plan see problem list
[2019-02-26] MEDS: LISINOPRIL 10 MG TABLET (FP) PEG SCH (11:05)
[2019-02-26] MEDS: FERROUS SO4 300 MG/5 ML ORAL SOLN UNIT DOSE CUPS GT SCH ×2 (11:05→23:05)
[2019-02-26] MEDS: APIXABAN 5 MG TABLET PO SCH ×2 (11:05→23:04)
[2019-02-26] MEDS: PANTOPRAZOLE SODIUM 40 MG VIAL IVPUSH SCH (11:05)
[2019-02-26] MEDS: FLUoxetine HCL 20 MG/5 ML 120 BOTTLE PO SCH (11:05)
[2019-02-26] MEDS ORDERED: INSULIN (NOVOLOG) ASPART 100 UNITS/ML 10ML VIAL ONE (11:25)
--- NOTE | 2019-02-26 13:31 | PN ---
Progress Note (short form) - Note Progress Note: Vented, AC Mode. Awake. No fevers recorded. Intake & Output 02/23/19 02/24/19 02/25/19 02/26/19 23:59 23:59 23:59 23:59 Intake Total 2950 1710 1200 1100 Output Total 1950 1350 2350 700 Balance 1000 360 -1150 400 Last Vital Signs Temp Pulse Resp BP Pulse Ox 97 F L 96 H 20 140/70 96 02/26/19 11:02 02/26/19 11:02 02/26/19 12:19 02/26/19 11:02 02/26/19 09:42 Active Medications Acetaminophen (Tylenol -) 650 mg PO Q6H PRN PRN Reason: PAIN Last Admin: 02/24/19 21:10 Dose: 650 mg Albuterol Sulfate (Ventolin 0.083% Nebulizer Soln -) 1 amp NEB Q4H PRN PRN Reason: SHORT OF BREATH/WHEEZING Last Admin: 02/24/19 02:00 Dose: 1 amp Amino Acids (Prosource No Carb Liquid Pkt) 30 ml GT BID@0800,1730 [facility] Last Admin: 02/26/19 08:54 Dose: 30 ml Apixaban (Eliquis -) 5 mg PO BID [facility] Last Admin: 02/26/19 11:05 Dose: 5 mg Atorvastatin Calcium (Lipitor -) 80 mg PO HS [facility] Last Admin: 02/25/19 22:19 Dose: 80 mg Collagenase (Santyl -) 1 applic TP DAILY [facility]; Protocol Last Admin: 02/25/19 14:10 Dose: 1 applic Ferrous Sulfate (Feosol) 300 mg GT BID [facility] Last Admin: 02/26/19 11:05 Dose: 300 mg Fluoxetine HCl (Prozac Oral Solution -) 20 mg PO DAILY [facility] Last Admin: 02/26/19 11:05 Dose: 20 mg Furosemide (Lasix -) 20 mg PO BID@0600,1400 [facility] Last Admin: 02/26/19 05:48 Dose: 20 mg Insulin Aspart (Novolog Vial Sliding Scale -) 1 vial SQ ACHS [facility]; Protocol Last Admin: 02/26/19 11:44 Dose: 6 units Lisinopril (Prinivil) 10 mg PEG DAILY [facility] Last Admin: 02/26/19 11:05 Dose: 10 mg Metoprolol Tartrate (Lopressor Injection -) 5 mg IVPUSH Q4H PRN PRN Reason: TACHYCARDIA Last Admin: 02/11/19 10:03 Dose: 5 mg Metoprolol Tartrate (Lopressor -) 75 mg PO TID [facility] Last Admin: 02/26/19 05:48 Dose: 75 mg Nystatin (Nystop Powder -) 1 applic TP TID [facility] Last Admin: 02/26/19 05:49 Dose: 1 applic Pantoprazole Sodium (Protonix Iv) 40 mg IVPUSH DAILY [facility] Last Admin: 02/26/19 11:05 Dose: 40 mg Gen: vented, awake Heart: RRR Lung: decreased breath sounds at the bases Abd: soft, nontender Ext: + edema Laboratory Results - last 24 hr 02/25/19 02/25/19 02/26/19 16:20 22:32 05:43 WBC RBC Hgb Hct MCV MCH MCHC RDW Plt Count MPV Absolute Neuts (auto) Neutrophils % Lymphocytes % Monocytes % Eosinophils % Basophils % Nucleated RBC % Sodium Potassium Chloride Carbon Dioxide Anion Gap BUN Creatinine Est GFR (CKD-EPI)AfAm Est GFR (CKD-EPI)NonAf POC Glucometer 286 352 297 Random Glucose Calcium Total Bilirubin AST ALT Alkaline Phosphatase Total Protein Albumin 02/26/19 02/26/19 02/26/19 07:10 07:10 11:42 WBC 11.8 H RBC 3.54 L Hgb 9.1 L Hct 30.2 L MCV 85.4 MCH 25.7 MCHC 30.1 L RDW 20.2 H Plt Count 269 MPV 10.1 Absolute Neuts (auto) 8.6 H Neutrophils % 72.5 Lymphocytes % 14.1 Monocytes % 6.8 Eosinophils % 5.6 H Basophils % 1.0 Nucleated RBC % 0 Sodium 141 Potassium 4.2 Chloride 108 H Carbon Dioxide 27 Anion Gap 5 L BUN 27.5 H Creatinine 0.7 Est GFR (CKD-EPI)AfAm 97.54 Est GFR (CKD-EPI)NonAf 84.16 POC Glucometer 294 Random Glucose 282 H Calcium 8.3 L Total Bilirubin 0.2 AST 27 ALT 16 Alkaline Phosphatase 296 H Total Protein 5.6 L Albumin 1.3 L A/P UTI Sacral Decubitus Ulcer Sepsis Volume Overload Acute on Chronic Diastolic Heart Failure Chronic Respiratory Failure h/o CVA COPD Atrial Fibrillation h/o GI Bleed HTN DM Anemia - Off Antibiotics per ID - rate controlled - Anticoagulation - Monitor H/H - enteral feeds - DVT/GI prophylaxis - There is no Pulmonary contraindication for DC planning Dr Stover
[2019-02-26] MEDS: INSULIN (LEVEMIR) 100 UNITS/ML UNITS SQ SCH ×2 (14:48→23:05)
[2019-02-26] MEDS ORDERED: INSULIN (LEVEMIR) 100 UNITS/ML UNITS SQ ONE (16:32)
[2019-02-26] MEDS: COLLAGENASE CLOSTRIDIUM HIST. 30 GRAMS TUBE TP SCH (18:47)
[2019-02-26] MEDS: ATORVASTATIN CA 80 MG TABLET (FP) PO SCH (23:04)
[2019-02-27] MEDS: METOPROLOL TARTRATE 25 MG TABLET (FP) PO SCH ×3 (06:04→23:04)
[2019-02-27] MEDS: FUROSEMIDE 20 MG TABLET (FP) PO SCH ×2 (06:04→15:06)
[2019-02-27] MEDS: INSULIN (LEVEMIR) 100 UNITS/ML UNITS SQ SCH ×2 (06:05→23:21)
[2019-02-27] MEDS: NYSTATIN POWDER 100,000 UNITS/GM - 15 GM TOPICAL POWDER TP SCH ×3 (06:05→23:24)
[2019-02-27] MEDS: INSULIN SLIDING SCALE (NOVOLOG) 1 VIAL SQ SCH ×4 (06:07→23:22)
[2019-02-27] MEDS: AMINO ACIDS/PROTEIN HYDROLYS 30 ML LIQUID.PKT GT SCH ×2 (09:00→18:03)
--- NOTE | 2019-02-27 10:19 | PN ---
Progress Note, Physician Chief Complaint: Pleural Effusion Afib Stage 4 Ulcer sacral region History of Present Illness: Previous notes and events reviewed mechanically ventilated NAD no acute events overnight no leukocytosis afebrile Cdiff results pending loose stool noted in rectal tube bag - Current Medication List Current Medications: Active Medications Acetaminophen (Tylenol -) 650 mg PO Q6H PRN PRN Reason: PAIN Last Admin: 02/24/19 21:10 Dose: 650 mg Albuterol Sulfate (Ventolin 0.083% Nebulizer Soln -) 1 amp NEB Q4H PRN PRN Reason: SHORT OF BREATH/WHEEZING Last Admin: 02/24/19 02:00 Dose: 1 amp Amino Acids (Prosource No Carb Liquid Pkt) 30 ml GT BID@0800,1730 [facility] Last Admin: 02/27/19 09:00 Dose: 30 ml Apixaban (Eliquis -) 5 mg PO BID [facility] Last Admin: 02/26/19 23:04 Dose: 5 mg Atorvastatin Calcium (Lipitor -) 80 mg PO HS [facility] Last Admin: 02/26/19 23:04 Dose: 80 mg Collagenase (Santyl -) 1 applic TP DAILY [facility]; Protocol Last Admin: 02/26/19 18:47 Dose: 1 applic Ferrous Sulfate (Feosol) 300 mg GT BID [facility] Last Admin: 02/26/19 23:05 Dose: 300 mg Fluoxetine HCl (Prozac Oral Solution -) 20 mg PO DAILY [facility] Last Admin: 02/26/19 11:05 Dose: 20 mg Furosemide (Lasix -) 20 mg PO BID@0600,1400 [facility] Last Admin: 02/27/19 06:04 Dose: 20 mg Insulin Aspart (Novolog Vial Sliding Scale -) 1 vial SQ ACHS [facility]; Protocol Last Admin: 02/27/19 06:07 Dose: Not Given Insulin Detemir (Levemir Vial) 10 units SQ 0700,2200 [facility] Last Admin: 02/27/19 06:05 Dose: 10 units Lisinopril (Prinivil) 10 mg PEG DAILY [facility] Last Admin: 02/26/19 11:05 Dose: 10 mg Metoprolol Tartrate (Lopressor Injection -) 5 mg IVPUSH Q4H PRN PRN Reason: TACHYCARDIA Last Admin: 02/11/19 10:03 Dose: 5 mg Metoprolol Tartrate (Lopressor -) 75 mg PO TID [facility] Last Admin: 02/27/19 06:04 Dose: 75 mg Nystatin (Nystop Powder -) 1 applic TP TID [facility] Last Admin: 02/27/19 06:05 Dose: 1 applic Pantoprazole Sodium (Protonix Iv) 40 mg IVPUSH DAILY [facility] Last Admin: 02/26/19 11:05 Dose: 40 mg - Objective Vital Signs: Vital Signs Temperature 98.5 F 02/27/19 06:00 Pulse Rate 101 H 02/27/19 06:00 Respiratory Rate 20 02/27/19 06:00 Blood Pressure 145/75 02/27/19 06:00 O2 Sat by Pulse Oximetry (%) 100 02/26/19 21:00 Constitutional: Yes: No Distress, Calm Eyes: Yes: Conjunctiva Clear HENT: Yes: Atraumatic Neck: Yes: Other (trach) Cardiovascular: Yes: Pulse Irregular Respiratory: Yes: Regular, Diminished, Mechanically Ventilated Gastrointestinal: Yes: Normal Bowel Sounds, Soft, Other (gtube) ...Rectal Exam: Yes: Other (rectal tube) Genitourinary: Yes: [place] Present Musculoskeletal: Yes: Muscle Weakness Extremities: Yes: WNL Edema: Yes Edema: LUE: 1+, RUE: 2+ Integumentary: Yes: Pressure Ulcer Neurological: Yes: Alert, Pre-Existing Deficit Psychiatric: Yes: Alert Labs: CBC, BMP 02/26/19 07:10 02/26/19 07:10 INR, PTT INR 1.05 (0.83-1.09) 02/18/19 09:58 Microbiology 02/25/19 11:50 Stool Clostridioides difficile (PCR) - Preliminary 02/09/19 20:50 Blood - Peripheral Venous Blood Culture - Final NO GROWTH AFTER 5 DAYS INCUBATION 02/09/19 20:50 Blood - Peripheral Venous Blood Culture - Final NO GROWTH AFTER 5 DAYS INCUBATION 02/10/19 05:30 Coccyx Gram Stain - Final 02/10/19 05:30 Coccyx Wound Culture - Final Enterobacter Cloacae Proteus Mirabilis Enterococcus Faecalis 02/09/19 20:50 Urine - Urine Clean Catch Urine Culture - Final Enterobacter Cloacae Problem List - Problems (1) Acute and chronic respiratory failure Assessment/Plan: -Pulm on board -mechanically ventilated -keep SpO2 >90% Code(s): J96.20 - ACUTE AND CHR RESP FAILURE, UNSP W HYPOXIA OR HYPERCAPNIA (2) Anemia Assessment/Plan: -Hg 9.1 -monitor Hg daily, transfuse for Hg <7.0 to avoid fluid overload -GI on board -EGD on 02/18/19 shows mild patchy antral erythema, no obvious ulcers -Stool OB positive Code(s): D64.9 - ANEMIA, UNSPECIFIED Qualifiers: Anemia type: unspecified type Qualified Code(s): D64.9 - Anemia, unspecified (3) Pleural effusion Assessment/Plan: -Pulm on board -Furosemide -keep SpO2 >90% -CXR moderate bilateral pleural effusion with vascular congestive changes Code(s): J90 - PLEURAL EFFUSION, NOT ELSEWHERE CLASSIFIED (4) Sepsis Assessment/Plan: -ID on board -Avycaz discontinued, observe off as per ID -BC neg -UC positive, Sacral wound culture positive -no leukocytosis -afebrile -LA 1.5 Code(s): A41.9 - SEPSIS, UNSPECIFIED ORGANISM Qualifiers: Sepsis type: sepsis due to unspecified organism Sepsis acute organ dysfunction status: without acute organ dysfunction Qualified Code(s): A41.9 - Sepsis, unspecified organism (5) Stage 4 skin ulcer of sacral region Assessment/Plan: -Sacral wound culture positive -ID on board -santyl with moist dressing -leukocytosis -air mattress -turn q2h -offloading -pack wound with moist kerlix and cover with OPTIfoam -daily dressing changes Code(s): L98.429 - NON-PRESSURE CHRONIC ULCER OF BACK WITH UNSPECIFIED SEVERITY (6) A-fib Assessment/Plan: -Eliquis and Metoprolol Code(s): I48.91 - UNSPECIFIED ATRIAL FIBRILLATION Qualifiers: Atrial fibrillation type: persistent (7) Diabetes mellitus Assessment/Plan: -BGM ACHS -HgA1c 7.6% -ISS -Levemir BID Code(s): E11.9 - TYPE 2 DIABETES MELLITUS WITHOUT COMPLICATIONS Qualifiers: Diabetes mellitus type: type 2 (8) GIB (gastrointestinal bleeding) Assessment/Plan: -Hg 9.1 -monitor Hg daily, transfuse for Hg <7.0 to avoid fluid overload -GI on board -EGD on 02/18/19 shows mild patchy antral erythema, no obvious ulcers -Stool OB positive Code(s): K92.2 - GASTROINTESTINAL HEMORRHAGE, UNSPECIFIED Qualifiers: GI bleed type/associated pathology: unspecified gastrointestinal hemorrhage type Qualified Code(s): K92.2 - Gastrointestinal hemorrhage, unspecified (9) UTI (urinary tract infection) Assessment/Plan: -ID on board -UC positive -no leukocytosis -afebrile -Avycaz completed, observe off as per ID Code(s): N39.0 - URINARY TRACT INFECTION, SITE NOT SPECIFIED Qualifiers: Urinary tract infection type: acute cystitis Hematuria presence: with hematuria Qualified Code(s): N30.01 - Acute cystitis with hematuria (10) CAD (coronary artery disease) Assessment/Plan: -Atorvastatin Code(s): I25.10 - ATHSCL HEART DISEASE OF [place] CORONARY ARTERY W/O ANG PCTRS Qualifiers: Coronary Disease-Associated Artery/Lesion type: [place] artery [place] vs. transplanted heart: [place] heart Associated angina: without angina Qualified Code(s): I25.10 - Atherosclerotic heart disease of [place] coronary artery without angina pectoris (11) COPD (chronic obstructive pulmonary disease) Assessment/Plan: -Pulm on board -mechanically ventilated -keep SpO2 >90% Code(s): J44.9 - CHRONIC OBSTRUCTIVE PULMONARY DISEASE, UNSPECIFIED (12) Hyperlipidemia Assessment/Plan: -Atorvastatin Code(s): E78.5 - HYPERLIPIDEMIA, UNSPECIFIED Qualifiers: Hyperlipidemia type: pure hypercholesterolemia Qualified Code(s): E78.00 - Pure hypercholesterolemia, unspecified; E78.0 - Pure hypercholesterolemia Assessment/Plan see problem list begin d/c planning after wounds re-evaluated and cdiff results
--- NOTE | 2019-02-27 10:27 | PN ---
Progress Note, Physician History of Present Illness: Afebrile, hemodynamics stable, remains in rate-controlled afib. EGD revealing mild patchy antral erythema otherwise unremarkable. No obvious ulcers or angioectasias seen. - Current Medication List Current Medications: Active Medications Acetaminophen (Tylenol -) 650 mg PO Q6H PRN PRN Reason: PAIN Last Admin: 02/24/19 21:10 Dose: 650 mg Albuterol Sulfate (Ventolin 0.083% Nebulizer Soln -) 1 amp NEB Q4H PRN PRN Reason: SHORT OF BREATH/WHEEZING Last Admin: 02/24/19 02:00 Dose: 1 amp Amino Acids (Prosource No Carb Liquid Pkt) 30 ml GT BID@0800,1730 [facility] Last Admin: 02/27/19 09:00 Dose: 30 ml Apixaban (Eliquis -) 5 mg PO BID [facility] Last Admin: 02/26/19 23:04 Dose: 5 mg Atorvastatin Calcium (Lipitor -) 80 mg PO HS [facility] Last Admin: 02/26/19 23:04 Dose: 80 mg Collagenase (Santyl -) 1 applic TP DAILY [facility]; Protocol Last Admin: 02/26/19 18:47 Dose: 1 applic Ferrous Sulfate (Feosol) 300 mg GT BID [facility] Last Admin: 02/26/19 23:05 Dose: 300 mg Fluoxetine HCl (Prozac Oral Solution -) 20 mg PO DAILY [facility] Last Admin: 02/26/19 11:05 Dose: 20 mg Furosemide (Lasix -) 20 mg PO BID@0600,1400 [facility] Last Admin: 02/27/19 06:04 Dose: 20 mg Insulin Aspart (Novolog Vial Sliding Scale -) 1 vial SQ ACHS [facility]; Protocol Last Admin: 02/27/19 06:07 Dose: Not Given Insulin Detemir (Levemir Vial) 10 units SQ 0700,2200 [facility] Last Admin: 02/27/19 06:05 Dose: 10 units Lisinopril (Prinivil) 10 mg PEG DAILY [facility] Last Admin: 02/26/19 11:05 Dose: 10 mg Metoprolol Tartrate (Lopressor Injection -) 5 mg IVPUSH Q4H PRN PRN Reason: TACHYCARDIA Last Admin: 02/11/19 10:03 Dose: 5 mg Metoprolol Tartrate (Lopressor -) 75 mg PO TID [facility] Last Admin: 02/27/19 06:04 Dose: 75 mg Nystatin (Nystop Powder -) 1 applic TP TID [facility] Last Admin: 02/27/19 06:05 Dose: 1 applic Pantoprazole Sodium (Protonix Iv) 40 mg IVPUSH DAILY [facility] Last Admin: 02/26/19 11:05 Dose: 40 mg - Objective Vital Signs: Vital Signs Temperature 98.5 F 02/27/19 06:00 Pulse Rate 101 H 02/27/19 06:00 Respiratory Rate 20 02/27/19 06:00 Blood Pressure 145/75 02/27/19 06:00 O2 Sat by Pulse Oximetry (%) 100 02/26/19 21:00 Constitutional: Yes: No Distress, Calm Neck: Yes: Supple, Other (Tracheostomy) Cardiovascular: Yes: Pulse Irregular Respiratory: Yes: Mechanically Ventilated, Rhonchi Gastrointestinal: Yes: Normal Bowel Sounds, Soft, Other (PEG in place) Edema: Yes Edema: LUE: 1+, RUE: 1+, LLE: Trace, RLE: Trace Labs: CBC, BMP 02/26/19 07:10 02/26/19 07:10 INR, PTT INR 1.05 (0.83-1.09) 02/18/19 09:58 Problem List - Problems (1) Anemia Code(s): D64.9 - ANEMIA, UNSPECIFIED Qualifiers: Anemia type: unspecified type Qualified Code(s): D64.9 - Anemia, unspecified (2) CHF exacerbation Code(s): I50.9 - HEART FAILURE, UNSPECIFIED Qualifiers: Heart failure type: unspecified Qualified Code(s): I50.9 - Heart failure, unspecified (3) Sepsis Code(s): A41.9 - SEPSIS, UNSPECIFIED ORGANISM Qualifiers: Sepsis type: sepsis due to unspecified organism Sepsis acute organ dysfunction status: without acute organ dysfunction Qualified Code(s): A41.9 - Sepsis, unspecified organism (4) Stage 4 skin ulcer of sacral region Code(s): L98.429 - NON-PRESSURE CHRONIC ULCER OF BACK WITH UNSPECIFIED SEVERITY (5) UTI (urinary tract infection) Code(s): N39.0 - URINARY TRACT INFECTION, SITE NOT SPECIFIED Qualifiers: Urinary tract infection type: catheter-associated UTI Indwelling urinary catheter type: unspecified Encounter type: initial encounter Qualified Code( s): T83.511A - Infection and inflammatory reaction due to indwelling urethral catheter, initial encounter; N39.0 - Urinary tract infection, site not specified (6) A-fib Code(s): I48.91 - UNSPECIFIED ATRIAL FIBRILLATION Qualifiers: Atrial fibrillation type: persistent (7) Angiodysplasia of colon with hemorrhage Code(s): K55.21 - ANGIODYSPLASIA OF COLON WITH HEMORRHAGE (8) CAD (coronary artery disease) Code(s): I25.10 - ATHSCL HEART DISEASE OF [place] CORONARY ARTERY W/O ANG PCTRS Qualifiers: Coronary Disease-Associated Artery/Lesion type: [place] artery [place] vs. transplanted heart: [place] heart Associated angina: without angina Qualified Code(s): I25.10 - Atherosclerotic heart disease of [place] coronary artery without angina pectoris (9) CKD (chronic kidney disease) Code(s): N18.9 - CHRONIC KIDNEY DISEASE, UNSPECIFIED Qualifiers: Chronic kidney disease stage: stage 2 (mild) Qualified Code(s): N18.2 - Chronic kidney disease, stage 2 (mild) (10) CVA (cerebral vascular accident) Code(s): I63.9 - CEREBRAL INFARCTION, UNSPECIFIED Qualifiers: CVA mechanism: embolism (11) Diabetes mellitus Code(s): E11.9 - TYPE 2 DIABETES MELLITUS WITHOUT COMPLICATIONS Qualifiers: Diabetes mellitus type: type 2 (12) GIB (gastrointestinal bleeding) Code(s): K92.2 - GASTROINTESTINAL HEMORRHAGE, UNSPECIFIED Qualifiers: GI bleed type/associated pathology: unspecified gastrointestinal hemorrhage type Qualified Code(s): K92.2 - Gastrointestinal hemorrhage, unspecified (13) Hemoglobin decreased Code(s): R71.0 - PRECIPITOUS DROP IN HEMATOCRIT (14) Diabetes mellitus Code(s): E11.9 - TYPE 2 DIABETES MELLITUS WITHOUT COMPLICATIONS Qualifiers: Diabetes mellitus type: type 2 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: without longterm use Diabetes mellitus complication status: without complication Qualified Code(s): E11.9 - Type 2 diabetes mellitus without complications (15) H/O mitral valve replacement Code(s): Z95.2 - PRESENCE OF PROSTHETIC HEART VALVE (16) HTN (hypertension) Code(s): I10 - ESSENTIAL (PRIMARY) HYPERTENSION Qualifiers: Hypertension type: essential hypertension Qualified Code(s): I10 - Essential (primary) hypertension (17) Hyperlipidemia Code(s): E78.5 - HYPERLIPIDEMIA, UNSPECIFIED Qualifiers: Hyperlipidemia type: pure hypercholesterolemia Qualified Code(s): E78.00 - Pure hypercholesterolemia, unspecified; E78.0 - Pure hypercholesterolemia (18) Pacemaker Code(s): Z95.0 - PRESENCE OF CARDIAC PACEMAKER Assessment/Plan 02/18/2019 EGD revealing mild patchy antral erythema otherwise unremarkable. No obvious ulcers or angioectasias seen 04/30/2018 Echo: Normal LV size and fxn, severe TR RVSP 50-60 mmHg, mild MR EGD and colonoscopy in 07/2017 revealing gastritis, cecal AVM and four tubular adenomas 12/17/2016 reveal: 03/2009 acute systolic CHF and OK, R&LHc 90% distal OM1, 60% D1, preserved LV fxn, elevated LVEDP [place] severe posterior leaflet prolapse with severe MR->MV annuloplasty repair, afib, sinus arrest->PPM, CAD left alone. [facility] Echo: 06/28/16 normal biventricular fxn, COSMO, mod TR, MV ring Nuc stress 09/13/2016 Anterolateral ischemia/infarct SDS 3 EF 82%, abnl ecg changes 1. Acute on chronic diastolic heart failure resolving 2. Chronic respiratory failure s/p tracheostomy and PEG 3. Coronary artery disease demand ischemic injury angina pectoris 4. Permanent atrial fibrillation [id number] score of 9 5. Sick sinus syndrome post permanent pacemaker implantation 6. Post mitral valve repair 7. UTI 8. Sacral decubitus ulcer Infection 9. HTN 7. DM 10. Hypercholesterolemia 11. 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 COPD 13. Hypernatremia resolved 14. Anemia post transfusion, h/o GI bleed, cecal AVMs PLAN: 1. Completed antibiotics coverage per ID 2. Monitor H/H post transfusion and continue Eliquis 5 bid as hemostasis assured per GI input 3. Continue Lasix 20 bid with monitoring diuretic response, renal function and electrolytes 4. Continue Lopressor 75 mg TID, Lipitor 80 qd, and lisinopril 10 qd. IV Lopressor as needed. Currently off Ranexa. 5. Continue enteral feeds 6. Wound care, DVT and GI prophylaxis 7. AC mode vent support 8. As no obvious source for anemia found, colonoscopy could be considered based on prior findings of cecal AVMs, but daughter Roxie (NOK) declines, opting for conservative measures with iron or transfusion as needed.
[2019-02-27] MEDS ORDERED: PT OWN MED DRAWER 7, Y5N ONE (11:10)
[2019-02-27] MEDS: FERROUS SO4 300 MG/5 ML ORAL SOLN UNIT DOSE CUPS GT SCH ×2 (11:12→23:05)
[2019-02-27] MEDS: PANTOPRAZOLE SODIUM 40 MG VIAL IVPUSH SCH (11:12)
[2019-02-27] MEDS: COLLAGENASE CLOSTRIDIUM HIST. 30 GRAMS TUBE TP SCH (11:13)
[2019-02-27] MEDS: LISINOPRIL 10 MG TABLET (FP) PEG SCH (11:13)
[2019-02-27] MEDS: FLUoxetine HCL 20 MG/5 ML 120 BOTTLE PO SCH (11:13)
[2019-02-27] MEDS: APIXABAN 5 MG TABLET PO SCH ×2 (11:13→23:03)
[2019-02-27] MEDS ORDERED: INSULIN (NOVOLOG) ASPART 100 UNITS/ML 10ML VIAL ONE (11:42)
--- NOTE | 2019-02-27 15:24 | PN ---
Progress Note (short form) - Note Progress Note: Vented, AC Mode. Awake. No fevers recorded. Intake & Output 02/24/19 02/25/19 02/26/19 02/27/19 23:59 23:59 23:59 23:59 Intake Total 1710 1200 2200 Output Total 1350 2350 1750 1100 Balance 360 -1150 450 -1100 Last Vital Signs Temp Pulse Resp BP Pulse Ox 98.4 F 102 H 22 H 120/70 100 02/27/19 15:07 02/27/19 15:07 02/27/19 15:07 02/27/19 15:07 02/26/19 21:00 Active Medications Acetaminophen (Tylenol -) 650 mg PO Q6H PRN PRN Reason: PAIN Last Admin: 02/24/19 21:10 Dose: 650 mg Amino Acids (Prosource No Carb Liquid Pkt) 30 ml GT BID@0800,1730 [facility] Last Admin: 02/27/19 09:00 Dose: 30 ml Apixaban (Eliquis -) 5 mg PO BID [facility] Last Admin: 02/27/19 11:13 Dose: 5 mg Atorvastatin Calcium (Lipitor -) 80 mg PO HS [facility] Last Admin: 02/26/19 23:04 Dose: 80 mg Collagenase (Santyl -) 1 applic TP DAILY [facility]; Protocol Last Admin: 02/27/19 11:13 Dose: 1 applic Ferrous Sulfate (Feosol) 300 mg GT BID [facility] Last Admin: 02/27/19 11:12 Dose: 300 mg Fluoxetine HCl (Prozac Oral Solution -) 20 mg PO DAILY [facility] Last Admin: 02/27/19 11:13 Dose: 20 mg Furosemide (Lasix -) 20 mg PO BID@0600,1400 [facility] Last Admin: 02/27/19 15:06 Dose: 20 mg Insulin Aspart (Novolog Vial Sliding Scale -) 1 vial SQ ACHS [facility]; Protocol Last Admin: 02/27/19 12:02 Dose: 2 units Insulin Detemir (Levemir Vial) 10 units SQ 0700,2200 [facility] Last Admin: 02/27/19 06:05 Dose: 10 units Lisinopril (Prinivil) 10 mg PEG DAILY [facility] Last Admin: 02/27/19 11:13 Dose: 10 mg Metoprolol Tartrate (Lopressor Injection -) 5 mg IVPUSH Q4H PRN PRN Reason: TACHYCARDIA Last Admin: 02/11/19 10:03 Dose: 5 mg Metoprolol Tartrate (Lopressor -) 75 mg PO TID [facility] Last Admin: 02/27/19 15:06 Dose: 75 mg Nystatin (Nystop Powder -) 1 applic TP TID [facility] Last Admin: 02/27/19 15:07 Dose: 1 applic Pantoprazole Sodium (Protonix Iv) 40 mg IVPUSH DAILY [facility] Last Admin: 02/27/19 11:12 Dose: 40 mg Gen: vented, awake Heart: RRR Lung: decreased breath sounds at the bases Abd: soft, nontender Ext: + edema Laboratory Results - last 24 hr 02/26/19 02/26/19 02/27/19 17:22 23:01 06:00 POC Glucometer 281 172 144 02/27/19 12:01 POC Glucometer 160 A/P UTI Sacral Decubitus Ulcer Sepsis Volume Overload Acute on Chronic Diastolic Heart Failure Chronic Respiratory Failure h/o CVA COPD Atrial Fibrillation h/o GI Bleed HTN DM Anemia - Off Antibiotics per ID - rate controlled - Anticoagulation - Monitor H/H - enteral feeds - DVT/GI prophylaxis - There is no Pulmonary contraindication for DC planning Dr Stover
[2019-02-27] MEDS: ATORVASTATIN CA 80 MG TABLET (FP) PO SCH (23:04)
[2019-02-28] MEDS: FUROSEMIDE 20 MG TABLET (FP) PO SCH ×2 (06:13→14:52)
[2019-02-28] MEDS: METOPROLOL TARTRATE 25 MG TABLET (FP) PO SCH ×3 (06:13→23:38)
[2019-02-28] MEDS: NYSTATIN POWDER 100,000 UNITS/GM - 15 GM TOPICAL POWDER TP SCH ×3 (06:14→23:39)
[2019-02-28] MEDS: INSULIN (LEVEMIR) 100 UNITS/ML UNITS SQ SCH ×2 (06:15→23:39)
[2019-02-28] MEDS: INSULIN SLIDING SCALE (NOVOLOG) 1 VIAL SQ SCH ×4 (06:18→23:41)
[2019-02-28 08:02] LABS: HEMATOCRIT 31.4 % (32.4-45.2); HEMOGLOBIN 9.6 GM/dL (10.7-15.3); MCH 25.8 pg (25.7-33.7); MCHC 30.7 g/dl (32.0-36.0); MEAN PLT VOLUME 9.3 fl (7.5-11.1); PLATELET COUNT 258 K/MM3 (134-434); RBC 3.73 M/mm3 (3.60-5.2); RDW 19.9 % (11.6-15.6); WHITE BLOOD COUNT 11.5 K/mm3 (4.0-10.0)
[2019-02-28 08:20] LABS: ALBUMIN 1.4 g/dl (3.4-5.0); BILIRUBIN,TOTAL 0.2 mg/dL (0.2-1); BLOOD UREA NITROGEN 30.4 mg/dL (7-18); CALCIUM 8.4 mg/dL (8.5-10.1); CREATININE 0.5 mg/dL (0.55-1.3); POTASSIUM 3.9 mmol/L (3.5-5.1); TOT PROT 5.8 g/dl (6.4-8.2)
--- NOTE | 2019-02-28 09:48 | PN ---
Progress Note, Physician Chief Complaint: Pleural Effusion Afib Stage 4 Ulcer sacral region History of Present Illness: Previous notes and events reviewed mechanically ventilated NAD no acute events overnight leukocytosis afebrile Cdiff results pending edema RUE, Doppler ordered r/o dvt noted with leaking G tube - Current Medication List Current Medications: Active Medications Acetaminophen (Tylenol -) 650 mg PO Q6H PRN PRN Reason: PAIN Last Admin: 02/24/19 21:10 Dose: 650 mg Apixaban (Eliquis -) 5 mg PO BID [facility] Last Admin: 02/27/19 23:03 Dose: 5 mg Atorvastatin Calcium (Lipitor -) 80 mg PO HS [facility] Last Admin: 02/27/19 23:04 Dose: 80 mg Collagenase (Santyl -) 1 applic TP DAILY [facility]; Protocol Last Admin: 02/27/19 11:13 Dose: 1 applic Ferrous Sulfate (Feosol) 300 mg GT BID [facility] Last Admin: 02/27/19 23:05 Dose: 300 mg Fluoxetine HCl (Prozac Oral Solution -) 20 mg PO DAILY [facility] Last Admin: 02/27/19 11:13 Dose: 20 mg Furosemide (Lasix -) 20 mg PO BID@0600,1400 [facility] Last Admin: 02/28/19 06:13 Dose: 20 mg Insulin Aspart (Novolog Vial Sliding Scale -) 1 vial SQ [facility]; Protocol Last Admin: 02/28/19 06:18 Dose: 2 units Insulin Detemir (Levemir Vial) 10 units SQ 0700,2200 [facility] Last Admin: 02/28/19 06:15 Dose: 10 units Lisinopril (Prinivil) 10 mg PEG DAILY [facility] Last Admin: 02/27/19 11:13 Dose: 10 mg Metoprolol Tartrate (Lopressor Injection -) 5 mg IVPUSH Q4H PRN PRN Reason: TACHYCARDIA Last Admin: 02/11/19 10:03 Dose: 5 mg Metoprolol Tartrate (Lopressor -) 75 mg PO TID [facility] Last Admin: 02/28/19 06:13 Dose: 75 mg Nystatin (Nystop Powder -) 1 applic TP TID [facility] Last Admin: 02/28/19 06:14 Dose: 1 applic Pantoprazole Sodium (Protonix Iv) 40 mg IVPUSH DAILY [facility] Last Admin: 02/27/19 11:12 Dose: 40 mg - Objective Vital Signs: Vital Signs Temperature 97.5 F L 02/28/19 06:00 Pulse Rate 91 H 02/28/19 08:30 Respiratory Rate 20 02/28/19 08:28 Blood Pressure 140/73 02/28/19 06:00 O2 Sat by Pulse Oximetry (%) 99 02/28/19 08:30 Constitutional: Yes: No Distress, Calm Eyes: Yes: Conjunctiva Clear HENT: Yes: Atraumatic Neck: Yes: Other (trach) Cardiovascular: Yes: Pulse Irregular Respiratory: Yes: Regular, Diminished, Mechanically Ventilated Gastrointestinal: Yes: Normal Bowel Sounds, Soft ...Rectal Exam: Yes: Other (rectal tube) Genitourinary: Yes: [place] Present Musculoskeletal: Yes: Muscle Weakness Extremities: Yes: WNL Edema: Yes Edema: RUE: 2+ Integumentary: Yes: Pressure Ulcer Neurological: Yes: Alert, Pre-Existing Deficit Psychiatric: Yes: Alert Labs: CBC, BMP 02/28/19 07:15 02/28/19 07:15 INR, PTT INR 1.05 (0.83-1.09) 02/18/19 09:58 Microbiology 02/25/19 11:50 Stool Clostridioides difficile (PCR) - Preliminary 02/09/19 20:50 Blood - Peripheral Venous Blood Culture - Final NO GROWTH AFTER 5 DAYS INCUBATION 02/09/19 20:50 Blood - Peripheral Venous Blood Culture - Final NO GROWTH AFTER 5 DAYS INCUBATION 02/10/19 05:30 Coccyx Gram Stain - Final 02/10/19 05:30 Coccyx Wound Culture - Final Enterobacter Cloacae Proteus Mirabilis Enterococcus Faecalis 02/09/19 20:50 Urine - Urine Clean Catch Urine Culture - Final Enterobacter Cloacae Problem List - Problems (1) Acute and chronic respiratory failure Assessment/Plan: -Pulm on board -mechanically ventilated -keep SpO2 >90% Code(s): J96.20 - ACUTE AND CHR RESP FAILURE, UNSP W HYPOXIA OR HYPERCAPNIA (2) Anemia Assessment/Plan: -Hg 9.6 -monitor Hg daily, transfuse for Hg <7.0 to avoid fluid overload -GI on board -EGD on 02/18/19 shows mild patchy antral erythema, no obvious ulcers -Stool OB positive Code(s): D64.9 - ANEMIA, UNSPECIFIED Qualifiers: Anemia type: unspecified type Qualified Code(s): D64.9 - Anemia, unspecified (3) Pleural effusion Assessment/Plan: -Pulm on board -Furosemide -keep SpO2 >90% -CXR moderate bilateral pleural effusion with vascular congestive changes Code(s): J90 - PLEURAL EFFUSION, NOT ELSEWHERE CLASSIFIED (4) Sepsis Assessment/Plan: -ID on board -Avycaz discontinued, observe off as per ID -BC neg -UC positive, Sacral wound culture positive -leukocytosis -afebrile -LA 1.5 Code(s): A41.9 - SEPSIS, UNSPECIFIED ORGANISM Qualifiers: Sepsis type: sepsis due to unspecified organism Sepsis acute organ dysfunction status: without acute organ dysfunction Qualified Code(s): A41.9 - Sepsis, unspecified organism (5) Stage 4 skin ulcer of sacral region Assessment/Plan: -Sacral wound culture positive -ID on board -santyl with moist dressing -leukocytosis -air mattress -turn q2h -offloading -pack wound with moist kerlix and cover with OPTIfoam -daily dressing changes -Plastic Consult Code(s): L98.429 - NON-PRESSURE CHRONIC ULCER OF BACK WITH UNSPECIFIED SEVERITY (6) A-fib Assessment/Plan: -Eliquis and Metoprolol Code(s): I48.91 - UNSPECIFIED ATRIAL FIBRILLATION Qualifiers: Atrial fibrillation type: persistent (7) Diabetes mellitus Assessment/Plan: -BGM ACHS -HgA1c 7.6% -ISS -Levemir BID Code(s): E11.9 - TYPE 2 DIABETES MELLITUS WITHOUT COMPLICATIONS Qualifiers: Diabetes mellitus type: type 2 (8) GIB (gastrointestinal bleeding) Assessment/Plan: -Hg 9.6 -monitor Hg daily, transfuse for Hg <7.0 to avoid fluid overload -GI on board -EGD on 02/18/19 shows mild patchy antral erythema, no obvious ulcers -Stool OB positive Code(s): K92.2 - GASTROINTESTINAL HEMORRHAGE, UNSPECIFIED Qualifiers: GI bleed type/associated pathology: unspecified gastrointestinal hemorrhage type Qualified Code(s): K92.2 - Gastrointestinal hemorrhage, unspecified (9) UTI (urinary tract infection) Assessment/Plan: -ID on board -UC positive -leukocytosis -afebrile -Avycaz completed, observe off as per ID Code(s): N39.0 - URINARY TRACT INFECTION, SITE NOT SPECIFIED Qualifiers: Urinary tract infection type: acute cystitis Hematuria presence: with hematuria Qualified Code(s): N30.01 - Acute cystitis with hematuria (10) CAD (coronary artery disease) Assessment/Plan: -Atorvastatin Code(s): I25.10 - ATHSCL HEART DISEASE OF [place] CORONARY ARTERY W/O ANG PCTRS Qualifiers: Coronary Disease-Associated Artery/Lesion type: [place] artery [place] vs. transplanted heart: [place] heart Associated angina: without angina Qualified Code(s): I25.10 - Atherosclerotic heart disease of [place] coronary artery without angina pectoris (11) COPD (chronic obstructive pulmonary disease) Assessment/Plan: -Pulm on board -mechanically ventilated -keep SpO2 >90% Code(s): J44.9 - CHRONIC OBSTRUCTIVE PULMONARY DISEASE, UNSPECIFIED (12) Hyperlipidemia Assessment/Plan: -Atorvastatin Code(s): E78.5 - HYPERLIPIDEMIA, UNSPECIFIED Qualifiers: Hyperlipidemia type: pure hypercholesterolemia Qualified Code(s): E78.00 - Pure hypercholesterolemia, unspecified; E78.0 - Pure hypercholesterolemia (13) Diarrhea Assessment/Plan: -Rectal tube -Cdiff results pending -leukocytosis -stool O&P, stool culture, stool wbc Code(s): R19.7 - DIARRHEA, UNSPECIFIED Assessment/Plan see problem list
[2019-02-28] MEDS: FLUoxetine HCL 20 MG/5 ML 120 BOTTLE PO SCH (10:09)
[2019-02-28] MEDS: PANTOPRAZOLE SODIUM 40 MG VIAL IVPUSH SCH (10:09)
[2019-02-28] MEDS: FERROUS SO4 300 MG/5 ML ORAL SOLN UNIT DOSE CUPS GT SCH ×2 (10:09→23:39)
[2019-02-28] MEDS: LISINOPRIL 10 MG TABLET (FP) PEG SCH (10:10)
[2019-02-28] MEDS: COLLAGENASE CLOSTRIDIUM HIST. 30 GRAMS TUBE TP SCH (10:10)
[2019-02-28] MEDS: APIXABAN 5 MG TABLET PO SCH ×2 (10:10→23:39)
--- NOTE | 2019-02-28 11:01 | PN ---
Progress Note (short form) - Note Progress Note: Vented, AC Mode, 40% FiO2. Awake. No fevers recorded. Intake & Output 02/25/19 02/26/19 02/27/19 02/28/19 23:59 23:59 23:59 23:59 Intake Total 1200 2250 1150 1150 Output Total 2350 1750 1800 400 Balance -1150 500 -650 750 Last Vital Signs Temp Pulse Resp BP Pulse Ox 98 F 95 H 20 149/75 99 02/28/19 10:00 02/28/19 10:00 02/28/19 10:00 02/28/19 10:00 02/28/19 08:30 Active Medications Acetaminophen (Tylenol -) 650 mg PO Q6H PRN PRN Reason: PAIN Last Admin: 02/24/19 21:10 Dose: 650 mg Apixaban (Eliquis -) 5 mg PO BID [facility] Last Admin: 02/28/19 10:10 Dose: 5 mg Atorvastatin Calcium (Lipitor -) 80 mg PO HS [facility] Last Admin: 02/27/19 23:04 Dose: 80 mg Collagenase (Santyl -) 1 applic TP DAILY [facility]; Protocol Last Admin: 02/28/19 10:10 Dose: 1 applic Ferrous Sulfate (Feosol) 300 mg GT BID [facility] Last Admin: 02/28/19 10:09 Dose: 300 mg Fluoxetine HCl (Prozac Oral Solution -) 20 mg PO DAILY [facility] Last Admin: 02/28/19 10:09 Dose: 20 mg Furosemide (Lasix -) 20 mg PO BID@0600,1400 [facility] Last Admin: 02/28/19 06:13 Dose: 20 mg Insulin Aspart (Novolog Vial Sliding Scale -) 1 vial SQ ACHS [facility]; Protocol Last Admin: 02/28/19 06:18 Dose: 2 units Insulin Detemir (Levemir Vial) 10 units SQ 0700,2200 [facility] Last Admin: 02/28/19 06:15 Dose: 10 units Lisinopril (Prinivil) 10 mg PEG DAILY [facility] Last Admin: 02/28/19 10:10 Dose: 10 mg Metoprolol Tartrate (Lopressor Injection -) 5 mg IVPUSH Q4H PRN PRN Reason: TACHYCARDIA Last Admin: 02/11/19 10:03 Dose: 5 mg Metoprolol Tartrate (Lopressor -) 75 mg PO TID [facility] Last Admin: 02/28/19 06:13 Dose: 75 mg Nystatin (Nystop Powder -) 1 applic TP TID [facility] Last Admin: 02/28/19 06:14 Dose: 1 applic Pantoprazole Sodium (Protonix Iv) 40 mg IVPUSH DAILY [facility] Last Admin: 02/28/19 10:09 Dose: 40 mg Gen: vented, awake Heart: RRR Lung: decreased breath sounds at the bases Abd: soft, nontender Ext: + edema Laboratory Results - last 24 hr 02/27/19 02/27/19 02/27/19 12:01 17:45 23:20 WBC RBC Hgb Hct MCV MCH MCHC RDW Plt Count MPV Sodium Potassium Chloride Carbon Dioxide Anion Gap BUN Creatinine Est GFR (CKD-EPI)AfAm Est GFR (CKD-EPI)NonAf POC Glucometer 160 167 231 Random Glucose Calcium Total Bilirubin AST ALT Alkaline Phosphatase Total Protein Albumin 02/28/19 02/28/19 02/28/19 06:01 07:15 07:15 WBC 11.5 H RBC 3.73 Hgb 9.6 L Hct 31.4 L MCV 84.0 MCH 25.8 MCHC 30.7 L RDW 19.9 H Plt Count 258 MPV 9.3 Sodium 143 Potassium 3.9 Chloride 109 H Carbon Dioxide 29 Anion Gap 5 L BUN 30.4 H Creatinine 0.5 L Est GFR (CKD-EPI)AfAm 108.96 Est GFR (CKD-EPI)NonAf 94.01 POC Glucometer 171 Random Glucose 157 H Calcium 8.4 L Total Bilirubin 0.2 AST 38 H ALT 23 Alkaline Phosphatase 307 H Total Protein 5.8 L Albumin 1.4 L A/P UTI Sacral Decubitus Ulcer Sepsis Volume Overload Acute on Chronic Diastolic Heart Failure Chronic Respiratory Failure h/o CVA COPD Atrial Fibrillation h/o GI Bleed HTN DM Anemia - Off Antibiotics per ID - rate controlled - Anticoagulation - Monitor H/H - enteral feeds - DVT/GI prophylaxis - There is no Pulmonary contraindication for DC planning Dr Stover
[2019-02-28] MEDS: ATORVASTATIN CA 80 MG TABLET (FP) PO SCH (23:38)
[2019-03-01] MEDS: FUROSEMIDE 20 MG TABLET (FP) PO SCH ×2 (06:54→15:30)
[2019-03-01] MEDS: METOPROLOL TARTRATE 25 MG TABLET (FP) PO SCH ×3 (06:54→22:45)
[2019-03-01] MEDS: NYSTATIN POWDER 100,000 UNITS/GM - 15 GM TOPICAL POWDER TP SCH ×3 (06:55→22:44)
[2019-03-01] MEDS: INSULIN (LEVEMIR) 100 UNITS/ML UNITS SQ SCH ×2 (06:56→22:46)
[2019-03-01] MEDS: INSULIN SLIDING SCALE (NOVOLOG) 1 VIAL SQ SCH ×4 (06:58→22:45)
[2019-03-01 07:44] LABS: HEMATOCRIT 29.6 % (32.4-45.2); HEMOGLOBIN 9.2 GM/dL (10.7-15.3); MCH 26.1 pg (25.7-33.7); MEAN CELL VOLUME 84.2 fl (80-96); MEAN PLT VOLUME 9.4 fl (7.5-11.1); PLATELET COUNT 258 K/MM3 (134-434); RBC 3.51 M/mm3 (3.60-5.2); RDW 19.8 % (11.6-15.6)
[2019-03-01 08:19] LABS: ALBUMIN 1.4 g/dl (3.4-5.0); BILIRUBIN,TOTAL 0.2 mg/dL (0.2-1); BLOOD UREA NITROGEN 27.4 mg/dL (7-18); CALCIUM 8.6 mg/dL (8.5-10.1); CREATININE 0.5 mg/dL (0.55-1.3); POTASSIUM 4.3 mmol/L (3.5-5.1); TOT PROT 5.5 g/dl (6.4-8.2)
--- NOTE | 2019-03-01 09:49 | PN ---
Progress Note, Physician Chief Complaint: Pleural Effusion Afib Stage 4 Ulcer sacral region History of Present Illness: Previous notes and events reviewed mechanically ventilated NAD leukocytosis afebrile Cdiff results pending ALT, Alk Phos noted to be trending up - Current Medication List Current Medications: Active Medications Acetaminophen (Tylenol -) 650 mg PO Q6H PRN PRN Reason: PAIN Last Admin: 02/24/19 21:10 Dose: 650 mg Apixaban (Eliquis -) 5 mg PO BID [facility] Last Admin: 02/28/19 23:39 Dose: 5 mg Atorvastatin Calcium (Lipitor -) 80 mg PO HS [facility] Last Admin: 02/28/19 23:38 Dose: 80 mg Collagenase (Santyl -) 1 applic TP DAILY [facility]; Protocol Last Admin: 02/28/19 10:10 Dose: 1 applic Ferrous Sulfate (Feosol) 300 mg GT BID [facility] Last Admin: 02/28/19 23:39 Dose: 300 mg Fluoxetine HCl (Prozac Oral Solution -) 20 mg PO DAILY [facility] Last Admin: 02/28/19 10:09 Dose: 20 mg Furosemide (Lasix -) 20 mg PO BID@0600,1400 [facility] Last Admin: 03/01/19 06:54 Dose: 20 mg Insulin Aspart (Novolog Vial Sliding Scale -) 1 vial SQ ACHS [facility]; Protocol Last Admin: 03/01/19 06:58 Dose: 2 units Insulin Detemir (Levemir Vial) 10 units SQ 0700,2200 [facility] Last Admin: 03/01/19 06:56 Dose: 10 units Lisinopril (Prinivil) 10 mg PEG DAILY [facility] Last Admin: 02/28/19 10:10 Dose: 10 mg Metoprolol Tartrate (Lopressor Injection -) 5 mg IVPUSH Q4H PRN PRN Reason: TACHYCARDIA Last Admin: 02/11/19 10:03 Dose: 5 mg Metoprolol Tartrate (Lopressor -) 75 mg PO TID [facility] Last Admin: 03/01/19 06:54 Dose: 75 mg Nystatin (Nystop Powder -) 1 applic TP TID [facility] Last Admin: 03/01/19 06:55 Dose: 1 applic Pantoprazole Sodium (Protonix Iv) 40 mg IVPUSH DAILY [facility] Last Admin: 02/28/19 10:09 Dose: 40 mg - Objective Vital Signs: Vital Signs Temperature 98.8 F 03/01/19 06:00 Pulse Rate 98 H 03/01/19 06:00 Respiratory Rate 18 03/01/19 08:30 Blood Pressure 128/77 03/01/19 06:00 O2 Sat by Pulse Oximetry (%) 100 03/01/19 04:05 Constitutional: Yes: No Distress, Calm Eyes: Yes: Conjunctiva Clear HENT: Yes: Atraumatic Neck: Yes: Other (trach) Cardiovascular: Yes: Pulse Irregular Respiratory: Yes: Regular, Diminished, Mechanically Ventilated Gastrointestinal: Yes: Normal Bowel Sounds, Soft, Other (Gtube) Genitourinary: Yes: [place] Present Musculoskeletal: Yes: Muscle Weakness Extremities: Yes: WNL Edema: Yes (pedal) Integumentary: Yes: Pressure Ulcer Neurological: Yes: Alert, Pre-Existing Deficit Psychiatric: Yes: Alert Labs: CBC, BMP 03/01/19 07:15 03/01/19 07:15 INR, PTT INR 1.05 (0.83-1.09) 02/18/19 09:58 Microbiology 02/28/19 11:00 Stool Gram Stain - Final 02/25/19 11:50 Stool Clostridioides difficile (PCR) - Preliminary 02/09/19 20:50 Blood - Peripheral Venous Blood Culture - Final NO GROWTH AFTER 5 DAYS INCUBATION 02/09/19 20:50 Blood - Peripheral Venous Blood Culture - Final NO GROWTH AFTER 5 DAYS INCUBATION 02/10/19 05:30 Coccyx Gram Stain - Final 02/10/19 05:30 Coccyx Wound Culture - Final Enterobacter Cloacae Proteus Mirabilis Enterococcus Faecalis 02/09/19 20:50 Urine - Urine Clean Catch Urine Culture - Final Enterobacter Cloacae Problem List - Problems (1) Acute and chronic respiratory failure Assessment/Plan: -Pulm on board -mechanically ventilated -keep SpO2 >90% Code(s): J96.20 - ACUTE AND CHR RESP FAILURE, UNSP W HYPOXIA OR HYPERCAPNIA (2) Anemia Assessment/Plan: -Hg 9.2 -monitor Hg daily, transfuse for Hg <7.0 to avoid fluid overload -GI on board -EGD on 02/18/19 shows mild patchy antral erythema, no obvious ulcers -Stool OB positive Code(s): D64.9 - ANEMIA, UNSPECIFIED Qualifiers: Anemia type: unspecified type Qualified Code(s): D64.9 - Anemia, unspecified (3) Pleural effusion Assessment/Plan: -Pulm on board -Furosemide -keep SpO2 >90% -CXR moderate bilateral pleural effusion with vascular congestive changes Code(s): J90 - PLEURAL EFFUSION, NOT ELSEWHERE CLASSIFIED (4) Sepsis Assessment/Plan: -ID on board -Avycaz discontinued, observe off as per ID -BC neg -UC positive, Sacral wound culture positive -leukocytosis -afebrile -LA 1.5 Code(s): A41.9 - SEPSIS, UNSPECIFIED ORGANISM Qualifiers: Sepsis type: sepsis due to unspecified organism Sepsis acute organ dysfunction status: without acute organ dysfunction Qualified Code(s): A41.9 - Sepsis, unspecified organism (5) Stage 4 skin ulcer of sacral region Assessment/Plan: -Sacral wound culture positive -ID on board -santyl with moist dressing -leukocytosis -air mattress -turn q2h -offloading -pack wound with moist kerlix and cover with OPTIfoam -daily dressing changes -Plastic Consult Code(s): L98.429 - NON-PRESSURE CHRONIC ULCER OF BACK WITH UNSPECIFIED SEVERITY (6) A-fib Assessment/Plan: -Eliquis and Metoprolol Code(s): I48.91 - UNSPECIFIED ATRIAL FIBRILLATION Qualifiers: Atrial fibrillation type: persistent (7) Diabetes mellitus Assessment/Plan: -BGM ACHS -HgA1c 7.6% -ISS -Levemir BID Code(s): E11.9 - TYPE 2 DIABETES MELLITUS WITHOUT COMPLICATIONS Qualifiers: Diabetes mellitus type: type 2 (8) GIB (gastrointestinal bleeding) Assessment/Plan: -Hg 9.2 -monitor Hg daily, transfuse for Hg <7.0 to avoid fluid overload -GI on board -EGD on 02/18/19 shows mild patchy antral erythema, no obvious ulcers -Stool OB positive Code(s): K92.2 - GASTROINTESTINAL HEMORRHAGE, UNSPECIFIED Qualifiers: GI bleed type/associated pathology: unspecified gastrointestinal hemorrhage type Qualified Code(s): K92.2 - Gastrointestinal hemorrhage, unspecified (9) UTI (urinary tract infection) Assessment/Plan: -ID on board -UC positive -leukocytosis -afebrile -Avycaz completed, observe off as per ID Code(s): N39.0 - URINARY TRACT INFECTION, SITE NOT SPECIFIED Qualifiers: Urinary tract infection type: acute cystitis Hematuria presence: with hematuria Qualified Code(s): N30.01 - Acute cystitis with hematuria (10) CAD (coronary artery disease) Assessment/Plan: -Atorvastatin Code(s): I25.10 - ATHSCL HEART DISEASE OF [place] CORONARY ARTERY W/O ANG PCTRS Qualifiers: Coronary Disease-Associated Artery/Lesion type: [place] artery [place] vs. transplanted heart: [place] heart Associated angina: without angina Qualified Code(s): I25.10 - Atherosclerotic heart disease of [place] coronary artery without angina pectoris (11) COPD (chronic obstructive pulmonary disease) Assessment/Plan: -Pulm on board -mechanically ventilated -keep SpO2 >90% Code(s): J44.9 - CHRONIC OBSTRUCTIVE PULMONARY DISEASE, UNSPECIFIED (12) Hyperlipidemia Assessment/Plan: -Atorvastatin Code(s): E78.5 - HYPERLIPIDEMIA, UNSPECIFIED Qualifiers: Hyperlipidemia type: pure hypercholesterolemia Qualified Code(s): E78.00 - Pure hypercholesterolemia, unspecified; E78.0 - Pure hypercholesterolemia (13) Diarrhea Assessment/Plan: -Rectal tube -Cdiff results pending -leukocytosis -stool O&P, stool culture, stool wbc results pending Code(s): R19.7 - DIARRHEA, UNSPECIFIED Assessment/Plan see problem list D/C back to SNF when c-diff results come back
--- NOTE | 2019-03-01 10:48 | PN ---
Progress Note (short form) - Note Progress Note: Vented, AC Mode, 40% FiO2. Awake. No fevers recorded. Intake & Output 02/26/19 02/27/19 02/28/19 03/01/19 23:59 23:59 23:59 23:59 Intake Total 2250 1150 2270 1100 Output Total 1750 1800 1400 350 Balance 500 -650 870 750 Last Vital Signs Temp Pulse Resp BP Pulse Ox 98.8 F 98 H 18 128/77 100 03/01/19 06:00 03/01/19 06:00 03/01/19 08:30 03/01/19 06:00 03/01/19 04:05 Active Medications Acetaminophen (Tylenol -) 650 mg PO Q6H PRN PRN Reason: PAIN Last Admin: 02/24/19 21:10 Dose: 650 mg Apixaban (Eliquis -) 5 mg PO BID [facility] Last Admin: 02/28/19 23:39 Dose: 5 mg Atorvastatin Calcium (Lipitor -) 80 mg PO HS [facility] Last Admin: 02/28/19 23:38 Dose: 80 mg Collagenase (Santyl -) 1 applic TP DAILY [facility]; Protocol Last Admin: 02/28/19 10:10 Dose: 1 applic Ferrous Sulfate (Feosol) 300 mg GT BID [facility] Last Admin: 02/28/19 23:39 Dose: 300 mg Fluoxetine HCl (Prozac Oral Solution -) 20 mg PO DAILY [facility] Last Admin: 02/28/19 10:09 Dose: 20 mg Furosemide (Lasix -) 20 mg PO BID@0600,1400 [facility] Last Admin: 03/01/19 06:54 Dose: 20 mg Insulin Aspart (Novolog Vial Sliding Scale -) 1 vial SQ ACHS [facility]; Protocol Last Admin: 03/01/19 06:58 Dose: 2 units Insulin Detemir (Levemir Vial) 10 units SQ 0700,2200 [facility] Last Admin: 03/01/19 06:56 Dose: 10 units Lisinopril (Prinivil) 10 mg PEG DAILY [facility] Last Admin: 02/28/19 10:10 Dose: 10 mg Metoprolol Tartrate (Lopressor Injection -) 5 mg IVPUSH Q4H PRN PRN Reason: TACHYCARDIA Last Admin: 02/11/19 10:03 Dose: 5 mg Metoprolol Tartrate (Lopressor -) 75 mg PO TID [facility] Last Admin: 03/01/19 06:54 Dose: 75 mg Nystatin (Nystop Powder -) 1 applic TP TID [facility] Last Admin: 03/01/19 06:55 Dose: 1 applic Pantoprazole Sodium (Protonix Iv) 40 mg IVPUSH DAILY [facility] Last Admin: 02/28/19 10:09 Dose: 40 mg Gen: vented, awake Heart: RRR Lung: decreased breath sounds at the bases Abd: soft, nontender Ext: + edema Laboratory Results - last 24 hr 02/28/19 02/28/19 02/28/19 12:43 17:43 23:35 WBC RBC Hgb Hct MCV MCH MCHC RDW Plt Count MPV Sodium Potassium Chloride Carbon Dioxide Anion Gap BUN Creatinine Est GFR (CKD-EPI)AfAm Est GFR (CKD-EPI)NonAf POC Glucometer 196 194 181 Random Glucose Calcium Total Bilirubin AST ALT Alkaline Phosphatase Total Protein Albumin 03/01/19 03/01/19 03/01/19 06:52 07:15 07:15 WBC 11.0 H RBC 3.51 L Hgb 9.2 L Hct 29.6 L MCV 84.2 MCH 26.1 MCHC 31.0 L RDW 19.8 H Plt Count 258 MPV 9.4 Sodium 142 Potassium 4.3 Chloride 109 H Carbon Dioxide 30 Anion Gap 4 L BUN 27.4 H Creatinine 0.5 L Est GFR (CKD-EPI)AfAm 108.96 Est GFR (CKD-EPI)NonAf 94.01 POC Glucometer 196 Random Glucose 191 H Calcium 8.6 Total Bilirubin 0.2 AST 70 H ALT 36 Alkaline Phosphatase 344 H Total Protein 5.5 L Albumin 1.4 L A/P UTI Sacral Decubitus Ulcer Sepsis Volume Overload Acute on Chronic Diastolic Heart Failure Chronic Respiratory Failure h/o CVA COPD Atrial Fibrillation h/o GI Bleed HTN DM Anemia - Off Antibiotics per ID - rate controlled - Anticoagulation - Monitor H/H - enteral feeds - DVT/GI prophylaxis - There is no Pulmonary contraindication for DC planning Dr Stover
[2019-03-01] MEDS ORDERED: PT OWN MED DRAWER 7, Y5N ONE (11:10)
[2019-03-01] MEDS: LISINOPRIL 10 MG TABLET (FP) PEG SCH (11:16)
[2019-03-01] MEDS: PANTOPRAZOLE SODIUM 40 MG VIAL IVPUSH SCH (11:16)
[2019-03-01] MEDS: APIXABAN 5 MG TABLET PO SCH ×2 (11:16→22:45)
[2019-03-01] MEDS: FERROUS SO4 300 MG/5 ML ORAL SOLN UNIT DOSE CUPS GT SCH ×2 (11:16→22:45)
[2019-03-01] MEDS: COLLAGENASE CLOSTRIDIUM HIST. 30 GRAMS TUBE TP SCH (11:17)
[2019-03-01] MEDS: FLUoxetine HCL 20 MG/5 ML 120 BOTTLE PO SCH (11:17)
--- NOTE | 2019-03-01 13:28 | CONSULT ---
Consult Consult Specialty:: Plastic/Wound Speciality Referred by:: Dr Holguin Reason for Consultation:: Large sacral decubitus - History of Present Illness Chief Complaint: Post CVA patient with Grade IV sacral decubitus, skin rash.Inability to turn side to side. Functional quadriplegic. 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) Cardio/Vascular: Yes: AFIB (on AC), Aortic Stenosis (s/p ring repair at [facility]), CAD, HTN, Mitral Insufficiency (MVR 2009 [facility]), Other (PPM) Pulmonary: Yes: COPD Gastrointestinal: Yes: Diverticulosis, GI Bleed (recent bleed felt to be 2ndary to vascular ectasias), Other (07/19 four adenomatous tx colon polyps resected, cecal angiodysplasias seen.) Hepatobiliary: Yes: Cirrhosis (wound) Rheumatology: Yes: Other (osteoarthritis) Endocrine: Yes: Diabetes Mellitus - Past Surgical History Past Surgical History: Yes: Colonoscopy, Upper Endoscopy - Alcohol/Substance Use Hx Alcohol Use: No History of Substance Use: reports: None - Smoking History Smoking history: Unknown if ever smoked Have you smoked in the past 12 months: No If you are a former smoker, when did you quit?: 2007 - Social History Usual Living Arrangement: With Spouse ADL: Independent 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 History of Recent Travel: No Home Medications - Allergies Allergies/Adverse Reactions: Allergies Allergy/AdvReac Type Severity Reaction Status Date / Time No Known Allergies Allergy Verified 02/09/19 18:58 - Home Medications Home Medications: Ambulatory Orders Apixaban [Eliquis -] 5 mg PO BID tablet 07/26/17 Ascorbic Acid [Vitamin C -] 500 mg PO DAILY 30 Days #60 tablet MDD 2 07/26/17 Atorvastatin Ca [Lipitor] 80 mg PO HS tablet 07/26/17 Ferrous Sulfate [Feosol] 325 mg PO DAILY@0800 ud 07/26/17 Pantoprazole Sodium [Protonix -] 40 mg PO DAILY tablet.ec 07/26/17 Fluoxetine HCl Liquid [Prozac 20mg/5mL Oral Solution -] 20 mg PO DAILY 04/28/18 Furosemide [Lasix -] 20 mg PO BID@0600,1400 04/28/18 L. Acidophilus/Pectin, Mcpherson [Acidophilus-Pectin Capsule] 1 each PO TID Metformin HCl [Glucophage] 1,000 mg PO BID 04/28/18 Metoprolol Tartrate [Lopressor -] 75 mg PO TID 04/28/18 Sitagliptin Phosphate [Januvia] 50 mg PO BID 04/28/18 Tamsulosin HCl [Flomax] 0.4 mg PO DAILY 04/28/18 Insulin (Levemir) [Levemir Vial] 16 units SQ HS units 05/02/18 Lisinopril [Prinivil] 10 mg PO DAILY #30 tablet MDD 1 05/02/18 Ranolazine [Ranexa -] 500 mg PO BID tab 06/30/18 Albuterol 0.083% Nebulizer Sandrita [Ventolin 0.083% Nebulizer Soln -] 1 amp NEB Q4H PRN amp 02/23/19 Apixaban [Eliquis -] 5 mg PO BID tablet 02/23/19 Furosemide [Lasix -] 20 mg PO BID@0600,1400 tablet 02/23/19 Insulin Sliding Scale [Novolog Vial Sliding Scale -] 1 vial SQ ACHS units 02/23 Lisinopril [Prinivil] 10 mg PEG DAILY tablet 02/23/19 Nystatin Powder [Nystop Powder -] 1 applic TP TID applic 02/23/19 Physical Exam Vital Signs: Vital Signs Temperature 98 F 03/01/19 11:00 Pulse Rate 92 H 03/01/19 11:00 Respiratory Rate 18 03/01/19 12:00 Blood Pressure 111/44 L 03/01/19 11:00 O2 Sat by Pulse Oximetry (%) 100 03/01/19 04:05 Labs: CBC, BMP 03/01/19 07:15 03/01/19 07:15 Assessment/Plan Sacral wound : [id number] extends to bone, with UM Loose Necrotic tissue: minimal Bone exposed No odor, mild erythema, pink /red base Plan : 1. Conservative care 2.Not a candidate for surgery at present 3. Wound dressings : D/C Collagenase, apply 1/4 Dakin solution BID for 4 days, than switch to NSS Bid Frequent change of position side to side, no to lie on pressure points loner than 10min 3. Low Pressure mattress for GradeIV decubtii 4. Medical care for Resp. HTN, DM, Atrial fib Thank you, re-consult as needed
--- NOTE | 2019-03-01 15:52 | CONS ---
DATE OF CONSULTATION: DATE OF DICTATION: 03/01/2019 REQUESTING PHYSICIAN: Oni Wolfe MD REASON FOR CONSULTATION: A large sacral decubitus ulcer. Patient seen at [facility] in her room in presence of her . HISTORY: A 78-year-old diabetic female with atrial fibrillation, hypertension, COPD, GI bleeding, CVA, recently admitted at the [facility], underwent tracheostomy, was sent to [facility]. History of respiratory failure, on respirator. She has developed a decubitus ulcer. PAST HISTORY: As mentioned, diabetes mellitus, COPD, GI bleeding, hypertension, atrial fibrillation. MEDICATIONS: Noted in the chart. FOCUSED EXAMINATION: The patient is nonverbal, responds with her eyes blinking. Inability to turn side to side. Functional quadriplegia. Lower extremity swelling. Local examination of lower back, sacrum: Grade 4 decubitus ulcer, extends to the bone. Bone exposed. Bone palpable. Some necrotic tissue at the skin edges as well as under the fascia. Undermining present. Measurements: 8 x 10 cm decubitus, muscle exposed, bone exposed. Depth 0.8 cm. Skin rash, bilateral buttocks. Wound culture is positive for Enterobacter cloacae, Proteus mirabilis, Enterococcus faecalis. Patient with a tracheostomy and tube feeds. Locally patient receiving collagenase. Blood thinners, Eliquis, Lipitor, ferrous sulfate, fluoxetine, furosemide, insulin, lisinopril, metoprolol tartrate, nystatin powder, pantoprazole. TREATMENT: Necrotic tissue was excised after consent was taken from the . Necrotic tissue present at the peripheral edges and the base over the sacral bone. Patient is receiving antifungal medications on the intact skin with the rash. Counseling with the , he was informed about the patient's serious condition. Call made to her daughter, message left. 1. Conservative wound care at present until general condition improves. No surgery at the present time. Continue wound care. Discontinue collagenase. Application of 0.25% Dakin's solution twice a day. 2. Re-consult if general condition improves. DICKSON HILL M.D. [id number]
[2019-03-01] MEDS: ATORVASTATIN CA 80 MG TABLET (FP) PO SCH (22:45)
[2019-03-02] MEDS: FUROSEMIDE 20 MG TABLET (FP) PO SCH ×2 (05:46→14:29)
[2019-03-02] MEDS: METOPROLOL TARTRATE 25 MG TABLET (FP) PO SCH ×3 (05:46→22:17)
[2019-03-02] MEDS: NYSTATIN POWDER 100,000 UNITS/GM - 15 GM TOPICAL POWDER TP SCH ×3 (05:47→22:18)
[2019-03-02] MEDS: INSULIN (LEVEMIR) 100 UNITS/ML UNITS SQ SCH ×2 (06:00→22:18)
[2019-03-02] MEDS: INSULIN SLIDING SCALE (NOVOLOG) 1 VIAL SQ SCH ×4 (06:01→22:20)
[2019-03-02 08:30] LABS: HEMATOCRIT 29.4 % (32.4-45.2); HEMOGLOBIN 9.1 GM/dL (10.7-15.3); MCH 25.9 pg (25.7-33.7); MCHC 31.1 g/dl (32.0-36.0); MEAN CELL VOLUME 83.5 fl (80-96); MEAN PLT VOLUME 9.1 fl (7.5-11.1); PLATELET COUNT 261 K/MM3 (134-434); RBC 3.52 M/mm3 (3.60-5.2); RDW 19.6 % (11.6-15.6); WHITE BLOOD COUNT 10.7 K/mm3 (4.0-10.0)
[2019-03-02 09:16] LABS: ALBUMIN 1.4 g/dl (3.4-5.0); BILIRUBIN,TOTAL 0.3 mg/dL (0.2-1); BLOOD UREA NITROGEN 28.4 mg/dL (7-18); CALCIUM 8.6 mg/dL (8.5-10.1); CREATININE 0.5 mg/dL (0.55-1.3); POTASSIUM 4.1 mmol/L (3.5-5.1); TOT PROT 5.7 g/dl (6.4-8.2)
--- NOTE | 2019-03-02 10:13 | PN ---
Progress Note, Physician Chief Complaint: Events noted Maintained on vent support via tracheostomy History of Present Illness: Patient was seen and examined. Awake. Nonverbal On vent support - Current Medication List Current Medications: Active Medications Acetaminophen (Tylenol -) 650 mg PO Q6H PRN PRN Reason: PAIN Last Admin: 02/24/19 21:10 Dose: 650 mg Apixaban (Eliquis -) 5 mg PO BID [facility] Last Admin: 03/01/19 22:45 Dose: 5 mg Atorvastatin Calcium (Lipitor -) 80 mg PO HS [facility] Last Admin: 03/01/19 22:45 Dose: 80 mg Collagenase (Santyl -) 1 applic TP DAILY [facility]; Protocol Last Admin: 03/01/19 11:17 Dose: 1 applic Ferrous Sulfate (Feosol) 300 mg GT BID [facility] Last Admin: 03/01/19 22:45 Dose: 300 mg Fluoxetine HCl (Prozac Oral Solution -) 20 mg PO DAILY [facility] Last Admin: 03/01/19 11:17 Dose: 20 mg Furosemide (Lasix -) 20 mg PO BID@0600,1400 [facility] Last Admin: 03/02/19 05:46 Dose: 20 mg Insulin Aspart (Novolog Vial Sliding Scale -) 1 vial SQ ACHS [facility]; Protocol Last Admin: 03/02/19 06:01 Dose: 4 units Insulin Detemir (Levemir Vial) 10 units SQ 0700,2200 [facility] Last Admin: 03/02/19 06:00 Dose: 10 units Lisinopril (Prinivil) 10 mg PEG DAILY [facility] Last Admin: 03/01/19 11:16 Dose: 10 mg Metoprolol Tartrate (Lopressor Injection -) 5 mg IVPUSH Q4H PRN PRN Reason: TACHYCARDIA Last Admin: 02/11/19 10:03 Dose: 5 mg Metoprolol Tartrate (Lopressor -) 75 mg PO TID [facility] Last Admin: 03/02/19 05:46 Dose: 75 mg Nystatin (Nystop Powder -) 1 applic TP TID [facility] Last Admin: 03/02/19 05:47 Dose: 1 applic Pantoprazole Sodium (Protonix Iv) 40 mg IVPUSH DAILY [facility] Last Admin: 03/01/19 11:16 Dose: 40 mg - Objective Vital Signs: Vital Signs Temperature 97.8 F 03/02/19 06:52 Pulse Rate 76 03/02/19 08:23 Respiratory Rate 19 03/02/19 08:23 Blood Pressure 133/68 03/02/19 06:52 O2 Sat by Pulse Oximetry (%) 96 03/02/19 08:23 Neck: Yes: Supple Cardiovascular: Yes: Pulse Irregular, S1, S2 Respiratory: Yes: Mechanically Ventilated, Rhonchi Gastrointestinal: Yes: Normal Bowel Sounds, Soft. No: Tenderness Edema: Yes Labs: CBC, BMP 03/02/19 07:49 03/02/19 06:00 INR, PTT INR 1.05 (0.83-1.09) 02/18/19 09:58 Problem List - Problems (1) Acute and chronic respiratory failure Code(s): J96.20 - ACUTE AND CHR RESP FAILURE, UNSP W HYPOXIA OR HYPERCAPNIA (2) Anemia Code(s): D64.9 - ANEMIA, UNSPECIFIED Qualifiers: Anemia type: unspecified type Qualified Code(s): D64.9 - Anemia, unspecified (3) Pleural effusion Code(s): J90 - PLEURAL EFFUSION, NOT ELSEWHERE CLASSIFIED (4) S/P mitral valve repair Code(s): Z98.890 - OTHER SPECIFIED POSTPROCEDURAL STATES (5) Sacral decubitus ulcer Code(s): L89.159 - PRESSURE ULCER OF SACRAL REGION, UNSPECIFIED STAGE (6) Sepsis Code(s): A41.9 - SEPSIS, UNSPECIFIED ORGANISM Qualifiers: Sepsis type: sepsis due to unspecified organism Sepsis acute organ dysfunction status: without acute organ dysfunction Qualified Code(s): A41.9 - Sepsis, unspecified organism (7) Severe pulmonary arterial systolic hypertension Code(s): I27.21 - SECONDARY PULMONARY ARTERIAL HYPERTENSION (8) UTI (urinary tract infection) Code(s): N39.0 - URINARY TRACT INFECTION, SITE NOT SPECIFIED Qualifiers: Urinary tract infection type: catheter-associated UTI Indwelling urinary catheter type: unspecified Encounter type: initial encounter Qualified Code( s): T83.511A - Infection and inflammatory reaction due to indwelling urethral catheter, initial encounter; N39.0 - Urinary tract infection, site not specified (9) Ventilator dependent Code(s): Z99.11 - DEPENDENCE ON RESPIRATOR [VENTILATOR] STATUS (10) A-fib Code(s): I48.91 - UNSPECIFIED ATRIAL FIBRILLATION Qualifiers: Atrial fibrillation type: persistent (11) CAD (coronary artery disease) Code(s): I25.10 - ATHSCL HEART DISEASE OF [place] CORONARY ARTERY W/O ANG PCTRS Qualifiers: Coronary Disease-Associated Artery/Lesion type: [place] artery [place] vs. transplanted heart: [place] heart Associated angina: without angina Qualified Code(s): I25.10 - Atherosclerotic heart disease of [place] coronary artery without angina pectoris (12) CKD (chronic kidney disease) Code(s): N18.9 - CHRONIC KIDNEY DISEASE, UNSPECIFIED Qualifiers: Chronic kidney disease stage: stage 2 (mild) Qualified Code(s): N18.2 - Chronic kidney disease, stage 2 (mild) (13) CVA (cerebral vascular accident) Code(s): I63.9 - CEREBRAL INFARCTION, UNSPECIFIED (14) Demand ischemia Code(s): I24.8 - OTHER FORMS OF ACUTE ISCHEMIC HEART DISEASE (15) Diabetes mellitus Code(s): E11.9 - TYPE 2 DIABETES MELLITUS WITHOUT COMPLICATIONS Qualifiers: Diabetes mellitus type: type 2 (16) Diastolic dysfunction Code(s): I51.89 - OTHER ILL-DEFINED HEART DISEASES (17) GIB (gastrointestinal bleeding) Code(s): K92.2 - GASTROINTESTINAL HEMORRHAGE, UNSPECIFIED Qualifiers: GI bleed type/associated pathology: unspecified gastrointestinal hemorrhage type Qualified Code(s): K92.2 - Gastrointestinal hemorrhage, unspecified (18) Sick sinus syndrome Code(s): I49.5 - SICK SINUS SYNDROME (19) Sigmoid diverticulosis Code(s): K57.30 - DVRTCLOS OF LG INT W/O PERFORATION OR ABSCESS W/O BLEEDING (20) COPD (chronic obstructive pulmonary disease) Code(s): J44.9 - CHRONIC OBSTRUCTIVE PULMONARY DISEASE, UNSPECIFIED (21) HTN (hypertension) Code(s): I10 - ESSENTIAL (PRIMARY) HYPERTENSION Qualifiers: Hypertension type: essential hypertension Qualified Code(s): I10 - Essential (primary) hypertension (22) Hyperlipidemia Code(s): E78.5 - HYPERLIPIDEMIA, UNSPECIFIED Qualifiers: Hyperlipidemia type: pure hypercholesterolemia Qualified Code(s): E78.00 - Pure hypercholesterolemia, unspecified; E78.0 - Pure hypercholesterolemia (23) Pacemaker Code(s): Z95.0 - PRESENCE OF CARDIAC PACEMAKER Assessment/Plan 1. Acute on chronic diastolic heart failure 2. Chronic respiratory failure s/p tracheostomy and PEG 3. Coronary artery disease demand ischemic injury angina pectoris 4. Permanent atrial fibrillation [id number] score of 9 5. Sick sinus syndrome post permanent pacemaker implantation 6. Post mitral valve repair 7. UTI 8. Sacral decubitus ulcer Infection 9. HTN 10. DM 11. Hypercholesterolemia 12. History of CVA with dysarthria and residual right sided weakness 13. COPD 14. Hypernatremia resolved 15. Anemia post transfusion, h/o GI bleed, cecal AVMs PLAN: 1. Monitor H/H and transfuse as needed 2. Continue Eliquis 5 mg BID as tolerated 3. Continue Lasix 20 mg BID with monitoring renal function and electrolytes 4. Continue Lopressor 75 mg TID, Lipitor 80 mg QD and Lisinopril 10 mg QD. IV Lopressor as needed 5. Continue enteral feeds 6. Wound care, 7. DVT and GI prophylaxis 8. Vent support Supportive care George Carlson MD
--- NOTE | 2019-03-02 10:24 | PN ---
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 by hub inventory specialist - Current Medication List Current Medications: Active Medications Acetaminophen (Tylenol -) 650 mg PO Q6H PRN PRN Reason: PAIN Last Admin: 02/24/19 21:10 Dose: 650 mg Apixaban (Eliquis -) 5 mg PO BID [facility] Last Admin: 03/01/19 22:45 Dose: 5 mg Atorvastatin Calcium (Lipitor -) 80 mg PO HS [facility] Last Admin: 03/01/19 22:45 Dose: 80 mg Ferrous Sulfate (Feosol) 300 mg GT BID [facility] Last Admin: 03/01/19 22:45 Dose: 300 mg Fluoxetine HCl (Prozac Oral Solution -) 20 mg PO DAILY [facility] Last Admin: 03/01/19 11:17 Dose: 20 mg Furosemide (Lasix -) 20 mg PO BID@0600,1400 [facility] Last Admin: 03/02/19 05:46 Dose: 20 mg Insulin Aspart (Novolog Vial Sliding Scale -) 1 vial SQ [facility]; Protocol Last Admin: 03/02/19 06:01 Dose: 4 units Insulin Detemir (Levemir Vial) 10 units SQ 0700,2200 [facility] Last Admin: 03/02/19 06:00 Dose: 10 units Lisinopril (Prinivil) 10 mg PEG DAILY [facility] Last Admin: 03/01/19 11:16 Dose: 10 mg Metoprolol Tartrate (Lopressor Injection -) 5 mg IVPUSH Q4H PRN PRN Reason: TACHYCARDIA Last Admin: 02/11/19 10:03 Dose: 5 mg Metoprolol Tartrate (Lopressor -) 75 mg PO TID [facility] Last Admin: 03/02/19 05:46 Dose: 75 mg Nystatin (Nystop Powder -) 1 applic TP TID [facility] Last Admin: 03/02/19 05:47 Dose: 1 applic Pantoprazole Sodium (Protonix Iv) 40 mg IVPUSH DAILY [facility] Last Admin: 03/01/19 11:16 Dose: 40 mg - Objective Vital Signs: Vital Signs Temperature 97.8 F 03/02/19 06:52 Pulse Rate 76 03/02/19 08:23 Respiratory Rate 19 03/02/19 08:23 Blood Pressure 133/68 03/02/19 06:52 O2 Sat by Pulse Oximetry (%) 96 03/02/19 08:23 Constitutional: Yes: Well Nourished, No Distress, Calm Cardiovascular: Yes: Regular Rate and Rhythm Respiratory: Yes: Mechanically Ventilated, Rhonchi (diffuse) Gastrointestinal: Yes: Normal Bowel Sounds, Soft, Abdomen, Obese Genitourinary: Yes: [place] Present Musculoskeletal: Yes: Other (generalized atrophy) Extremities: Yes: WNL Edema: No Peripheral Pulses WNL: Yes Neurological: Yes: Pre-Existing Deficit Labs: CBC, BMP 03/02/19 07:49 03/02/19 06:00 INR, PTT INR 1.05 (0.83-1.09) 02/18/19 09:58 Problem List - Problems (1) Diarrhea Assessment/Plan: -Chronic -Cdiff negative -Stool cultures pending -If negative, will try cholestyramine Problems reviewed: Yes Code(s): R19.7 - DIARRHEA, UNSPECIFIED Assessment/Plan (1) Acute and chronic respiratory failure Assessment/Plan: -Pulm on board -mechanically ventilated -keep SpO2 >90% Code(s): J96.20 - ACUTE AND CHR RESP FAILURE, UNSP W HYPOXIA OR HYPERCAPNIA (2) Anemia Assessment/Plan: -Much improved -monitor H/H, transfuse for Hg <7.0 to avoid fluid overload -Stool OB positive -GI on board -EGD on 02/18/19 shows mild patchy antral erythema, no obvious ulcers Code(s): D64.9 - ANEMIA, UNSPECIFIED Qualifiers: Anemia type: unspecified type Qualified Code(s): D64.9 - Anemia, unspecified (3) Pleural effusion Assessment/Plan: -Pulm on board -Furosemide -keep SpO2 >90% -CXR moderate bilateral pleural effusion with vascular congestive changes Code(s): J90 - PLEURAL EFFUSION, NOT ELSEWHERE CLASSIFIED (4) Sepsis Assessment/Plan: -ID on board -Finished IV abx -BC neg -Cultures: Microbiology 02/09/19 20:50 Blood - Peripheral Venous Blood Culture - Final NO GROWTH AFTER 5 DAYS INCUBATION 02/09/19 20:50 Blood - Peripheral Venous Blood Culture - Final NO GROWTH AFTER 5 DAYS INCUBATION 02/10/19 05:30 Coccyx Gram Stain - Final 02/10/19 05:30 Coccyx Wound Culture - Final Enterobacter Cloacae Proteus Mirabilis Enterococcus Faecalis 02/09/19 20:50 Urine - Urine Clean Catch Urine Culture - Final Enterobacter Cloacae -no leukocytosis -afebrile Code(s): A41.9 - SEPSIS, UNSPECIFIED ORGANISM Qualifiers: Sepsis type: sepsis due to unspecified organism Sepsis acute organ dysfunction status: without acute organ dysfunction Qualified Code(s): A41.9 - Sepsis, unspecified organism (5) Stage 4 skin ulcer of sacral region Assessment/Plan: -Sacral wound culture positive -ID on board -Finished IV abx -no leukocytosis -air mattress -pack wound with moist kerlix and cover with OPTIfoam -daily dressing changes -Rectal tube+ [place] catheter to promote healing of the wound -Seen by Wound care, recommended conservative care 2/2 to co-morbidities -Wound dressings : D/C Collagenase, apply 1/4 Dakin solution BID for 4 days, than switch to NSS Bid -Frequent change of position side to side, no to lie on pressure points loner than 10min -Low Pressure mattress for GradeIV decubtii Code(s): L98.429 - NON-PRESSURE CHRONIC ULCER OF BACK WITH UNSPECIFIED SEVERITY (6) A-fib Assessment/Plan: -Eliquis and Metoprolol Code(s): I48.91 - UNSPECIFIED ATRIAL FIBRILLATION Qualifiers: Atrial fibrillation type: persistent (7) Diabetes mellitus Assessment/Plan: -BGM ACHS -HgA1c 7.6% -ISS Code(s): E11.9 - TYPE 2 DIABETES MELLITUS WITHOUT COMPLICATIONS Qualifiers: Diabetes mellitus type: type 2 (8) GIB (gastrointestinal bleeding) Assessment/Plan: -monitor Hg daily, transfuse for Hg <7.0 to avoid fluid overload -GI on board -EGD on 02/18/19 shows mild patchy antral erythema, no obvious ulcers -Stool OB positive Code(s): K92.2 - GASTROINTESTINAL HEMORRHAGE, UNSPECIFIED Qualifiers: GI bleed type/associated pathology: unspecified gastrointestinal hemorrhage type Qualified Code(s): K92.2 - Gastrointestinal hemorrhage, unspecified (9) UTI (urinary tract infection) Assessment/Plan: -ID on board -UC positive -no leukocytosis -afebrile Code(s): N39.0 - URINARY TRACT INFECTION, SITE NOT SPECIFIED Qualifiers: Urinary tract infection type: acute cystitis Hematuria presence: with hematuria Qualified Code(s): N30.01 - Acute cystitis with hematuria (10) CAD (coronary artery disease) Assessment/Plan: -Atorvastatin Code(s): I25.10 - ATHSCL HEART DISEASE OF [place] CORONARY ARTERY W/O ANG PCTRS Qualifiers: Coronary Disease-Associated Artery/Lesion type: [place] artery [place] vs. transplanted heart: [place] heart Associated angina: without angina Qualified Code(s): I25.10 - Atherosclerotic heart disease of [place] coronary artery without angina pectoris (11) COPD (chronic obstructive pulmonary disease) Assessment/Plan: -Pulm on board -mechanically ventilated -keep SpO2 >90% Code(s): J44.9 - CHRONIC OBSTRUCTIVE PULMONARY DISEASE, UNSPECIFIED (12) Hyperlipidemia Assessment/Plan: -Atorvastatin Code(s): E78.5 - HYPERLIPIDEMIA, UNSPECIFIED Qualifiers: Hyperlipidemia type: pure hypercholesterolemia Qualified Code(s): E78.00 - Pure hypercholesterolemia, unspecified; E78.0 - Pure hypercholesterolemia Assessment/Plan see problem list
[2019-03-02] MEDS ORDERED: PT OWN MED DRAWER 7, Y5N ONE (10:47)
[2019-03-02] MEDS: FLUoxetine HCL 20 MG/5 ML 120 BOTTLE PO SCH (10:57)
[2019-03-02] MEDS: PANTOPRAZOLE SODIUM 40 MG VIAL IVPUSH SCH (10:57)
[2019-03-02] MEDS: APIXABAN 5 MG TABLET PO SCH ×2 (10:57→22:17)
[2019-03-02] MEDS: FERROUS SO4 300 MG/5 ML ORAL SOLN UNIT DOSE CUPS GT SCH ×2 (10:57→22:17)
[2019-03-02] MEDS: LISINOPRIL 10 MG TABLET (FP) PEG SCH (10:57)
[2019-03-02] MEDS: COLLAGENASE CLOSTRIDIUM HIST. 30 GRAMS TUBE TP SCH (10:58)
--- NOTE | 2019-03-02 12:24 | PN ---
Progress Note (short form) - Note Progress Note: PULMONARY Vented, awake. No fevers recorded. Vital Signs Period Temp Pulse Resp BP Sys/[place] Pulse Ox Last 24 Hr 97.4 F-99.5 F 76-98 18-20 122-142/68-80 96-100 Gen: vented, awake Heart: RRR Lung: decreased breath sounds at the bases Abd: soft, nontender Ext: + edema CBC, BMP 03/02/19 07:49 03/02/19 06:00 Active Medications Acetaminophen (Tylenol -) 650 mg PO Q6H PRN PRN Reason: PAIN Last Admin: 02/24/19 21:10 Dose: 650 mg Apixaban (Eliquis -) 5 mg PO BID [facility] Last Admin: 03/02/19 10:57 Dose: 5 mg Atorvastatin Calcium (Lipitor -) 80 mg PO HS [facility] Last Admin: 03/01/19 22:45 Dose: 80 mg Ferrous Sulfate (Feosol) 300 mg GT BID [facility] Last Admin: 03/02/19 10:57 Dose: 300 mg Fluoxetine HCl (Prozac Oral Solution -) 20 mg PO DAILY [facility] Last Admin: 03/02/19 10:57 Dose: 20 mg Furosemide (Lasix -) 20 mg PO BID@0600,1400 [facility] Last Admin: 03/02/19 05:46 Dose: 20 mg Insulin Aspart (Novolog Vial Sliding Scale -) 1 vial SQ ACHS [facility]; Protocol Last Admin: 03/02/19 06:01 Dose: 4 units Insulin Detemir (Levemir Vial) 10 units SQ 0700,2200 [facility] Last Admin: 03/02/19 06:00 Dose: 10 units Lisinopril (Prinivil) 10 mg PEG DAILY [facility] Last Admin: 03/02/19 10:57 Dose: 10 mg Metoprolol Tartrate (Lopressor Injection -) 5 mg IVPUSH Q4H PRN PRN Reason: TACHYCARDIA Last Admin: 02/11/19 10:03 Dose: 5 mg Metoprolol Tartrate (Lopressor -) 75 mg PO TID [facility] Last Admin: 03/02/19 05:46 Dose: 75 mg Nystatin (Nystop Powder -) 1 applic TP TID [facility] Last Admin: 03/02/19 05:47 Dose: 1 applic Pantoprazole Sodium (Protonix Iv) 40 mg IVPUSH DAILY [facility] Last Admin: 03/02/19 10:57 Dose: 40 mg A/P UTI Sacral Decubitus Ulcer Sepsis Volume Overload Acute on Chronic Diastolic Heart Failure Chronic Respiratory Failure h/o CVA COPD Atrial Fibrillation h/o GI Bleed HTN DM Anemia - completed antibiotics - rate controlled - continue anticoagulation - monitor H/H - continue lasix - monitor urine output, creatinine - enteral feeds - DVT/GI prophylaxis
[2019-03-02] MEDS: ATORVASTATIN CA 80 MG TABLET (FP) PO SCH (22:17)
--- NOTE | 2019-03-03 03:31 | HOSP ---
Subjective - Review of Symptoms Events since last encounter: 78 year old female with PMHx CAD, a fib on AC, DM, HTN, COPD, GI bleed, CVA (RUE /LE paralysis, non verbal), presenting from [facility] w hypotension, fevers. Pt is non verbal. Per , pt was seen at [facility] for CVA 2 weeks ago, trached for respiratory failure, sent to [place] without improvement of symptoms. During course of admission tx for sepsis UTI, post antibiotics, today RN called patient noted with hematuria, craven was flushed then again noted with hematuria light red in color, patient non-verbal unable to provide any information. No acute abd distress. Discuss with nurse vitals stable, afebrile at this time. will hold eliquis x1 days and follow up urine culture in AM. monitor vitals closely, follow culture Physical Examination Vital Signs: Vital Signs Temperature 98.8 F 03/02/19 23:56 Pulse Rate 100 H 03/02/19 23:56 Respiratory Rate 18 03/03/19 00:21 Blood Pressure 140/74 03/02/19 23:56 O2 Sat by Pulse Oximetry (%) 100 03/02/19 21:00 Labs: CBC, BMP 03/02/19 07:49 03/02/19 06:00
[2019-03-03] MEDS: FUROSEMIDE 20 MG TABLET (FP) PO SCH ×2 (06:02→13:43)
[2019-03-03] MEDS: METOPROLOL TARTRATE 25 MG TABLET (FP) PO SCH ×2 (06:02→13:43)
[2019-03-03] MEDS: INSULIN (LEVEMIR) 100 UNITS/ML UNITS SQ SCH (06:02)
[2019-03-03] MEDS: NYSTATIN POWDER 100,000 UNITS/GM - 15 GM TOPICAL POWDER TP SCH ×2 (06:02→13:43)
[2019-03-03] MEDS: INSULIN SLIDING SCALE (NOVOLOG) 1 VIAL SQ SCH ×3 (06:04→16:54)
[2019-03-03] MEDS ORDERED: PT OWN MED DRAWER 7, Y5N ONE ×2 (06:59→08:55)
--- NOTE | 2019-03-03 08:48 | DS ---
Physical Examination Vital Signs: Vital Signs Temperature 98.6 F 03/03/19 06:00 Pulse Rate 82 03/03/19 08:08 Respiratory Rate 18 03/03/19 08:08 Blood Pressure 136/76 03/03/19 06:00 O2 Sat by Pulse Oximetry (%) 99 03/03/19 08:08 Findings/Remarks: 78yo F w PMHx CAD, a fib on AC, DM, HTN, COPD, GI bleed, CVA (RUE/LE paralysis, non verbal), presenting from [facility] w/ hypotension, fevers. Pt is non verbal at baseline but reportedly eye tracks and follows simple commands (hand squeeze) . Per , pt was seen at [facility] for CVA 2 weeks prior to admission at [facility] on 02/09/19 , trached for respiratory failure. Sent to [facility] without improvement of symptoms. At [place], developed sacral ulcer and von arm swelling, breathing not improved. Sent to ED Sepsis. Hospital course: During her stay patient was evaluated and treated for UTI with Avycaz. Pt has chronic diarrhea, for which rectal tube was inserted + craven to promote healing of stage 4 decubitus ulcer. IT IS RECOMMENDED THAT THEY REMAIN IN PLACE UNTIL WOUND HEALS. Her Cultures showed: Microbiology 02/25/19 11:50 Stool Clostridioides difficile (PCR) - Final NEGATIVE 02/28/19 11:00 Stool Gram Stain - Final NEGATIVE 02/28/19 11:00 Stool Salmonella/Shigella Culture - Final NO GROWTH OF SALMONELLA OR SHIGELLA SPECIES OBTAINED 02/28/19 11:00 Stool Campylobacter Culture - Final NO GROWTH OF CAMPYLOBACTER SPECIES OBTAINED 02/28/19 11:00 Stool Yersinia Culture - Final NO GROWTH OF YERSINIA SPECIES OBTAINED 02/28/19 11:00 Stool Vibrio Culture - Final NO GROWTH OF VIBRIO SPECIES OBTAINED 02/28/19 11:00 Stool Escherichia coli 0157 Culture - Final NO GROWTH OF E COLI 0157 OBTAINED 02/09/19 20:50 Blood - Peripheral Venous Blood Culture - Final NO GROWTH AFTER 5 DAYS INCUBATION 02/09/19 20:50 Blood - Peripheral Venous Blood Culture - Final NO GROWTH AFTER 5 DAYS INCUBATION 02/10/19 05:30 Coccyx Gram Stain - Final 02/10/19 05:30 Coccyx Wound Culture - Final Enterobacter Cloacae Proteus Mirabilis Enterococcus Faecalis 12/09/19 20:50 Urine - Urine Clean Catch Urine Culture - Final Enterobacter Cloacae PICC line was discontinue due to being blocked. Constitutional: Yes: Well Nourished, No Distress, Calm Cardiovascular: Yes: Regular Rate and Rhythm Respiratory: Yes: Mechanically Ventilated, Rhonchi (diffuse) Gastrointestinal: Yes: Normal Bowel Sounds, Soft ...Rectal Exam: Yes: Other (rectal tube) Renal/: Yes: Craven Present Musculoskeletal: Yes: Other (functional quadripaligia) Edema: Yes Edema: RUE: 2+ Peripheral Pulses WNL: Yes Integumentary: Yes: Pressure Ulcer (sacral) Wound/Incision: Yes: Dressing Dry and Intact (sacral) Neurological: Yes: Pre-Existing Deficit Labs: CBC, BMP 03/02/19 07:49 03/02/19 06:00 Discharge Summary Problems reviewed: Yes Reason For Visit: URINARY TRACT INFECTION, CONGESTIVE HEART FAILURE Current Active Problems Acute and chronic respiratory failure (Acute) Anemia (Acute) CHF exacerbation (Acute) Pleural effusion (Acute) Pleural effusion (Acute) S/P mitral valve repair (Acute) Sacral decubitus ulcer (Acute) Sepsis (Acute) Severe pulmonary arterial systolic hypertension (Acute) Stage 4 skin ulcer of sacral region (Acute) Tracheostomy care (Acute) UTI (urinary tract infection) (Acute) Ventilator dependent (Acute) Plan of Treatment: -air mattress -pack wound with moist kerlix and cover with OPTIfoam -daily dressing changes -Rectal tube+ Craven catheter to promote healing of the wound -Seen by Wound care, recommended conservative care 2/2 to co-morbidities -Wound dressings : D/C Collagenase, apply 1/4 Dakin solution BID for 4 days, than switch to NSS Bid -Frequent change of position side to side, no to lie on pressure points loner than 10min -Low Pressure mattress for Grade IV decubtii -MONITOR CBC WITHIN 1 WEEK Condition: Stable - Instructions Diet, Activity, Other Instructions: -air mattress -pack wound with moist kerlix and cover with OPTIfoam -daily dressing changes -Rectal tube+ Craven catheter to promote healing of the wound -Seen by Wound care, recommended conservative care 2/2 to co-morbidities -Wound dressings : D/C Collagenase, apply 1/4 Dakin solution BID for 4 days, than switch to NSS Bid -Frequent change of position side to side, no to lie on pressure points loner than 10min -Low Pressure mattress for Grade IV decubtii -MONITOR CBC WITHIN 1 WEEK Referrals: Jagjit Tavares MD [Primary Care Provider] - Disposition: [facility] - Home Medications Comprehensive Discharge Medication List: Ambulatory Orders Apixaban [Eliquis -] 5 mg PO BID tablet 07/26/17 Ascorbic Acid [Vitamin C -] 500 mg PO DAILY 30 Days #60 tablet MDD 2 07/26/17 Atorvastatin Ca [Lipitor] 80 mg PO HS tablet 07/26/17 Ferrous Sulfate [Feosol] 325 mg PO DAILY@0800 ud 07/26/17 Fluoxetine HCl Liquid [Prozac 20mg/5mL Oral Solution -] 20 mg PO DAILY 04/28/18 Furosemide [Lasix -] 20 mg PO BID@0600,1400 04/28/18 Metoprolol Tartrate [Lopressor -] 75 mg PO TID 04/28/18 Lisinopril [Prinivil] 10 mg PO DAILY #30 tablet MDD 1 05/02/18 Ranolazine [Ranexa -] 500 mg PO BID tab 06/30/18 Albuterol 0.083% Nebulizer Sandrita [Ventolin 0.083% Nebulizer Soln -] 1 amp NEB Q4H PRN amp 02/23/19 Apixaban [Eliquis -] 5 mg PO BID tablet 02/23/19 Furosemide [Lasix -] 20 mg PO BID@0600,1400 tablet 02/23/19 Insulin Sliding Scale [Novolog Vial Sliding Scale -] 1 vial SQ ACHS units 02/23 Lisinopril [Prinivil] 10 mg PEG DAILY tablet 02/23/19 Nystatin Powder [Nystop Powder -] 1 applic TP TID applic 02/23/19 Acetaminophen [Tylenol .Regular Strength -] 650 mg PO Q6H PRN tablet 03/03/19 Ferrous Sulfate [Feosol] 300 mg GT BID udc 03/03/19 Insulin (Levemir) [Levemir Vial] 10 units SQ 0700,2200 units 03/03/19 Pantoprazole Suspension [Protonix Packets For Oral Suspension -] 40 mg PEG DAILY packet 03/03/19 Sodium Hypochlorite [Dakin's Solution 0.25% (Half-Strength) -] 1 applic TP DAILY ml 03/03/19
[2019-03-03] MEDS: FLUoxetine HCL 20 MG/5 ML 120 BOTTLE PO SCH (09:16)
[2019-03-03] MEDS: LISINOPRIL 10 MG TABLET (FP) PEG SCH (09:16)
[2019-03-03] MEDS: FERROUS SO4 300 MG/5 ML ORAL SOLN UNIT DOSE CUPS GT SCH (09:16)
[2019-03-03] MEDS ORDERED: FAMOTIDINE 40 MG/5 ML ORAL SUSPENSION PEG SCH (10:00)
[2019-03-03] MEDS ORDERED: SODIUM HYPOCHLORITE 0.25%- 473 ML BULK BOTTLE TP SCH ×2 (10:00)
[2019-03-03] MEDS ORDERED: PANTOPRAZOLE SOD 40 MG SUSPENSION PACKET PEG SCH (10:00)
[2019-03-03 10:06] LABS: BASO % 0.6 % (0-2.0); EOS % 7.6 % (0-4.5); HEMATOCRIT 30.4 % (32.4-45.2); HEMOGLOBIN 9.3 GM/dL (10.7-15.3); LYMPH % 14.6 % (8-40); MCH 25.4 pg (25.7-33.7); MCHC 30.5 g/dl (32.0-36.0); MEAN CELL VOLUME 83.5 fl (80-96); MEAN PLT VOLUME 9.3 fl (7.5-11.1); MONO % 7.5 % (3.8-10.2); NEUT % 69.7 % (42.8-82.8); PLATELET COUNT 272 K/MM3 (134-434); RBC 3.64 M/mm3 (3.60-5.2); RDW 19.9 % (11.6-15.6); WHITE BLOOD COUNT 12.1 K/mm3 (4.0-10.0)
[2019-03-03 15:59] VITALS: BP 145/74; PULSE 95; TEMP 98.1
[2019-03-04] MEDS ORDERED: SODIUM HYPOCHLORITE 0.25%- 473 ML BULK BOTTLE TP SCH (10:00)
== END 2019-03-03 17:31 | DRG 870 ==
LOC: JER 18:41 → JERBED 23:03 → JICU 02-10 05:24 → J5S 02-13 16:34
PROVIDERS: ADMIT Family Medicine; ATTEND Family Medicine
PROC: 5A1955Z Respiratory Ventilation, Greater than 96 Consecutive Hours (ICD-10-PCS; principal; 2019-02-09)
PROC: 30233N1 Transfusion of Nonautologous Red Blood Cells into Peripheral Vein, Percutaneous Approach (ICD-10-PCS; 2019-02-10)
PROC: 0DJ08ZZ Inspection of Upper Intestinal Tract, Via Natural or Artificial Opening Endoscopic (ICD-10-PCS; 2019-02-18)
DX: A41.59 Other Gram-negative sepsis (principal); L89.154 Pressure ulcer of sacral region, stage 4; I50.33 Acute on chronic diastolic (congestive) heart failure; I63.40 Cerebral infarction due to embolism of unspecified cerebral artery; R53.2 Functional quadriplegia; T83.511A Infection and inflammatory reaction due to indwelling urethral catheter, initial encounter; J96.10 Chronic respiratory failure, unspecified whether with hypoxia or hypercapnia; E87.0 Hyperosmolality and hypernatremia; N39.0 Urinary tract infection, site not specified; Z99.11 Dependence on respirator [ventilator] status; J90 Pleural effusion, not elsewhere classified; I69.351 Hemiplegia and hemiparesis following cerebral infarction affecting right dominant side; I13.0 Hypertensive heart and chronic kidney disease with heart failure and stage 1 through stage 4 chronic kidney disease, or unspecified chronic kidney disease; I24.8 Other forms of acute ischemic heart disease; Y83.9 Surgical procedure, unspecified as the cause of abnormal reaction of the patient, or of later complication, without mention of misadventure at the time of the procedure; D64.9 Anemia, unspecified; I25.10 Atherosclerotic heart disease of native coronary artery without angina pectoris; E11.9 Type 2 diabetes mellitus without complications; Z93.0 Tracheostomy status; I95.9 Hypotension, unspecified; R31.9 Hematuria, unspecified; E87.70 Fluid overload, unspecified; I48.91 Unspecified atrial fibrillation; J44.9 Chronic obstructive pulmonary disease, unspecified; E78.5 Hyperlipidemia, unspecified; R19.7 Diarrhea, unspecified; N18.2 Chronic kidney disease, stage 2 (mild); D72.829 Elevated white blood cell count, unspecified; E83.39 Other disorders of phosphorus metabolism; E87.6 Hypokalemia
CPT/HCPCS: 36415; 36430; 70450-TC; 71045-TC-FY; 80048; 80053; 81003; 82272; 82550; 82728; 82803; 82962; 83036; 83540; 83550; 83605; 83735; 83880; 84100; 84484; 85025; 85027; 85610; 85730; 86850; 86900; 86901; 86922; 87040; 87045; 87046; 87070; 87086; 87177; 87184; 87186; 87205; 87209; 87493; 93005; 93010; 93971; 94002; 94640; 99285-25; J0131; J1644; J7030; P9058

== ENCOUNTER 2019-03-09 21:27 | Inpatient (IN) | payer OTHER ==
--- NOTE | 2019-03-09 21:42 | PDOC ---
History of Present Illness - General Stated Complaint: FEVER Time Seen by Provider: 03/09/19 21:41 History Source: Spouse, Residential Records Exam Limitations: Physical Impairment - History of Present Illness Initial Comments: 03/09/19 21:42 79yF w PMHx CAD, a fib on Eliquis, sick sinus syndrome s/p PPM, DM, HTN, COPD, GI bleed, CVA (RUE/LE paralysis, non verbal), chronic respiratory failure s/p trach, presenting from [facility] w fevers temp 100.6 and tachycardia to HR 150 at 845pm today. Given 650mg tylenol at 840pm. Last echo normal EF. Last seen on 02/09/19 for sepsis 2/2 UTI, CHF exacerbation, rectal tube inserted for chronic diarrhea/sacral ulcer. Pt is non verbal at baseline but eye tracks and follows simple commands (hand squeeze). health care proxy reconfirmed full code. 03/10/19 01:24 Past History - Past Medical History Allergies/Adverse Reactions: Allergies Allergy/AdvReac Type Severity Reaction Status Date / Time No Known Allergies Allergy Verified 02/09/19 18:58 Home Medications: Ambulatory Orders Apixaban [Eliquis -] 5 mg PO BID tablet 07/26/17 Ascorbic Acid [Vitamin C -] 500 mg PO DAILY 30 Days #60 tablet MDD 2 07/26/17 Atorvastatin Ca [Lipitor] 80 mg PO HS tablet 07/26/17 Ferrous Sulfate [Feosol] 325 mg PO DAILY@0800 ud 07/26/17 Fluoxetine HCl Liquid [Prozac 20mg/5mL Oral Solution -] 20 mg PO DAILY 04/28/18 Furosemide [Lasix -] 20 mg PO BID@0600,1400 04/28/18 Metoprolol Tartrate [Lopressor -] 75 mg PO TID 04/28/18 Lisinopril [Prinivil] 10 mg PO DAILY #30 tablet MDD 1 05/02/18 Ranolazine [Ranexa -] 500 mg PO BID tab 06/30/18 Albuterol 0.083% Nebulizer Sandrita [Ventolin 0.083% Nebulizer Soln -] 1 amp NEB Q4H PRN amp 02/23/19 Apixaban [Eliquis -] 5 mg PO BID tablet 02/23/19 Furosemide [Lasix -] 20 mg PO BID@0600,1400 tablet 02/23/19 Insulin Sliding Scale [Novolog Vial Sliding Scale -] 1 vial SQ ACHS units 02/23 Lisinopril [Prinivil] 10 mg PEG DAILY tablet 02/23/19 Nystatin Powder [Nystop Powder -] 1 applic TP TID applic 02/23/19 Acetaminophen [Tylenol .Regular Strength -] 650 mg PO Q6H PRN tablet 03/03/19 Ferrous Sulfate [Feosol] 300 mg GT BID udc 03/03/19 Insulin (Levemir) [Levemir Vial] 10 units SQ 0700,2200 units 03/03/19 Pantoprazole Suspension [Protonix Packets For Oral Suspension -] 40 mg PEG DAILY packet 03/03/19 Sodium Hypochlorite [Dakin's Solution 0.25% (Half-Strength) -] 1 applic TP DAILY ml 03/03/19 Anemia: Yes Asthma: No Cancer: No Cardiac Disorders: Yes (afib on coumadin, CABG, PPM) CVA: Yes (july 2017 right sided weakness, dysarthria) COPD: Yes (uses nc o2 @ night 1 lpm) CHF: Yes Dementia: No Diabetes: Yes GI Disorders: Yes (GI BLEED) Disorders: No HTN: Yes Hypercholesterolemia: Yes Liver Disease: No Seizures: No Thyroid Disease: No - Surgical History Abdominal Surgery: No Appendectomy: No Cardiac Surgery: Yes (pacemaker, CABG) Cholecystectomy: No Lung Surgery: No Neurologic Surgery: No Orthopedic Surgery: (BONE TUMOR REMOVAL 7YRS OLD) - Immunization History Immunization Up to Date: Yes - Psycho Social/Smoking Cessation Hx Smoking History: Unknown if ever smoked Have you smoked in the past 12 months: No If you are a former smoker, when did you quit?: 2007 Hx Alcohol Use: No Drug/Substance Use Hx: No Substance Use Type: None Hx Substance Use Treatment: No Review of Systems - Review of Systems Able to Perform ROS?: No *Physical Exam - Physical Exam General Appearance: Yes: Nourished, Appropriately Dressed, Mild Distress HEENT: positive: EOMI, SHASHANK. negative: Normal Voice, Scleral Icterus (R), Scleral Icterus (L), Nasal Congestion Neck: positive: Supple, Other (green purulent discharge from trach). negative: Tender, Rigid Respiratory/Chest: positive: Rhonchi (von), Other (coarse breath sounds von). negative: Chest Tender, Labored Respiration, Rapid RR, Crackles, Stridor, Wheezing Cardiovascular: positive: Regular Rhythm, S1, S2, Tachycardia. negative: Murmur Gastrointestinal/Abdominal: positive: Normal Bowel Sounds, Soft, Distended (mild ). negative: Tender, Organomegaly Musculoskeletal: positive: Other (Stage 1 decubitus ulcer) Extremity: positive: Delayed Capillary Refill, Swelling (2+ pitting BUE, 2+ R foot) Integumentary: positive: Normal Color, Dry Neurologic: negative: slip filler II-XII NML intact (cannot assess), Alert (cannot assess) Procedures - Central Line Central Line Lumen: triple Central Line Position: internal jugular (R) Anesthesia: 1% Lidocaine Amount of anesthesia (ccs): 3 Complications: none Post Central Line Insertion: sutured, good blood return, position confirmed w/ CXR ED Treatment Course - LABORATORY CBC & Chemistry Diagram: 03/09/19 22:19 03/09/19 22:19 Medical Decision Making - Critical Care Time Total Critical Care Time (minutes): 120 Critical Care Statement: The care of this patient involved high complexity decision making to prevent further life threatening deterioration of the patient 's condition and/or to evaluate & treat vital organ system(s) failure or risk of failure. - Medical Decision Making 03/09/19 22:24 CXR von pleural effusions L>R, pacemaker in place EKG shows a fib w RVR, HR 145, QTc 469, no ST changes Duplex R leg pending WBC 18 w left shift, Hgb 8.7, lactate 2.4 --- 79yF w PMHx CAD, a fib on Eliquis, sick sinus syndrome s/p PPM, DM, HTN, COPD, GI bleed, CVA (RUE/LE paralysis, non verbal), chronic respiratory failure s/p trach, presenting from [facility] w fevers and tachycardia Sepsis 2/2 UTI. Low concern for PNA (no consolidation on CXR) vs ACS (neg trop, no ST changes EKG). Anemic Hgb 8.7 Pending R leg duplex US r/o DVT Temp 102.2, BP 84/57, HR 157. Repeat 90/53 MAP 62, HR 150 with 2nd L NS running. Vent settings : TV 350, RR 18, PEEP 6, FiO2 50 Placed R IJ CVC for hypotension requiring pressors, poor peripheral access. Repeat CXR confirmed line in SVC Given tylenol, vanc, zosyn, 30mL/kg NS, started levophed drip for hypotension ICU accepted patient Admitted to ICU Dr Milligan for septic shock 2/2 UTI, hypotension, a fib w RVR Discharge - Discharge Information Problems reviewed: Yes Clinical Impression/Diagnosis: Septic shock, Atrial fibrillation with rapid ventricular response UTI (urinary tract infection) Qualifiers: Urinary tract infection type: acute cystitis Hematuria presence: without hematuria Qualified Code(s): N30.00 - Acute cystitis without hematuria Condition: Guarded - Follow up/Referral Referrals: Jagjit Tavares MD [Primary Care Provider] - - Patient Discharge Instructions - Post Discharge Activity
[2019-03-09] MEDS ORDERED: SODIUM CHLORIDE 0.9% 500 ML INFUS.BAG IV ONE (22:04)
[2019-03-09] MEDS ORDERED: VANCOMYCIN 1 GM in D5W (PRE-DOCKED) 1,000 MG/250 ML IVPB ONE (22:04)
[2019-03-09] MEDS ORDERED: PIPERACILLIN/TAZOB 4.5 GM 4.5 GM in DEXTROSE 5%-WATER 100 ML IVPB ONE (22:05)
[2019-03-09] MEDS ORDERED: ACETAMINOPHEN 1000 MG/100 ML VIAL (NON FORMULARY) IVPB ONE (22:15)
--- NOTE | 2019-03-09 22:31 | PDOC ---
Documentation entered by Kala Ratliff SCRIBE, acting as scribe for Alicja Saldivar MD. Alicja Saldivar MD: This documentation has been prepared by the Gaudencio faith Nirvannie, SCRIBE, under my direction and personally reviewed by me in its entirety. I confirm that the documentation accurately reflects all work, treatment, procedures, and medical decision making performed by me. Attending Attestation - Resident Resident Name: Alcides Aguilar - ED Attending Attestation I have performed the following: I have examined & evaluated the patient, The case was reviewed & discussed with the resident, I agree w/resident's findings & plan, Exceptions are as noted - HPI HPI: 03/09/19 22:04 The patient is a 79 year old female, with a significant past medical history of CAD, Afib, DM, HTN, COPD, GI bleed, CVA (RUE/LE paralysis, non-verbal), s/p trach who presents to the emergency department with a fever and hypotension. Per [place] paperwork: Vitals at facility: 155/53 mmHg 88-92% on vent 8:40pm: Patient given 650mg of Tylenol via Gtube Allergies: NKDA Primary Care Physician: Dr. Tavares - Physicial Exam PE: 03/09/19 22:06 GENERAL: +Hot to touch. HEENT: +Trach in place with purulent drainage surrounding. Normocephalic, atraumatic. CARDIOVASCULAR: +Tachycardic PULMONARY: +Bilateral rhonchi. ABDOMEN: Soft, non-distended, non-tender. RECTAL: +Profuse diarrhea. +Stage 1 sacral decubitus ulcer. EXTREMITIES: +Right upper and lower extremity weakness. SKIN: Warm, dry. No rash NEUROLOGICAL: +Nonverbal. - Medical Decision Making 03/09/19 22:30 79-year-old female brought in by ambulance from the senior care for hypotension , tachycardia, fever Past medical history significant for COPD, CVA, chronic vent patient Sepsis protocol initiated 03/09/19 23:09 Chest x-ray shows sm effusion and urinalysis shows UTI and antibiotics ordered 03/09/19 23:10 Patient receiving IV fluids, her lactate was found to be 2.4 CBC was reviewed and she has a leukocytosis of 18,000 and an anemia 03/09/19 23:38 - chronic diarrhea with rectal tube imp: urosepsis,chronic vent pt s/p cva with chronic rt sided residual weakness Central Line placed 03/10/19 00:18 pt is FULL CODE admit ICU 03/10/19 01:13
[2019-03-09] MEDS ORDERED: VANCOMYCIN 1 GRAM (PRE-DOCKED) 1,000 MG/250 ML BAG IVPB ONE (22:35)
[2019-03-09] MEDS ORDERED: ACETAMINOPHEN INJECTION 100 ML IVPB ONE (22:36)
[2019-03-09] MEDS ORDERED: PIPERACILLIN/TAZOB 4.5 GM 4.5 GM/100 ML BAG IVPB ONE (22:36)
[2019-03-09 22:40] LABS: VENOUS PC02 49.8 mmHg (38-52); VENOUS PH 7.45 (7.31-7.41)
[2019-03-09 22:47] LABS: BASO % 0.8 % (0-2.0); EOS % 0.6 % (0-4.5); HEMATOCRIT 28.8 % (32.4-45.2); HEMOGLOBIN 8.7 GM/dL (10.7-15.3); LYMPH % 10.3 % (8-40); MCH 24.9 pg (25.7-33.7); MCHC 30.1 g/dl (32.0-36.0); MEAN CELL VOLUME 82.7 fl (80-96); MEAN PLT VOLUME 10.1 fl (7.5-11.1); NEUT % 83.3 % (42.8-82.8); PLATELET COUNT 418 K/MM3 (134-434); RBC 3.48 M/mm3 (3.60-5.2); RDW 19.6 % (11.6-15.6); WHITE BLOOD COUNT 18.3 K/mm3 (4.0-10.0)
[2019-03-09 22:58] LABS: VENOUS PO2 < 49 mmHg (28-48)
[2019-03-09 23:15] LABS: ANISOCYTOSIS 1+; PLATELET ESTIMATE INCREASED
[2019-03-09 23:26] LABS: ALBUMIN 1.5 g/dl (3.4-5.0); BILIRUBIN,TOTAL 0.4 mg/dL (0.2-1); BLOOD UREA NITROGEN 53.8 mg/dL (7-18); CALCIUM 8.6 mg/dL (8.5-10.1); CREATININE 0.9 mg/dL (0.55-1.3); POTASSIUM 5.1 mmol/L (3.5-5.1); TOT PROT 6.3 g/dl (6.4-8.2)
[2019-03-09 23:30] LABS: HYALINE CASTS 26 /lpf (0-8); URINE APPEARANCE TURBID; URINE BACTERIA 4955.4 /hpf (NEGATIVE); URINE BILIRUBIN NEGATIVE (NEGATIVE); URINE COLOR DK YELLOW; URINE GLUCOSE (UA) NEGATIVE (NEGATIVE); URINE KETONE TRACE (NEGATIVE); URINE LEUK ESTERASE 3+ (NEGATIVE); URINE NITRITE NEGATIVE (NEGATIVE); URINE PROTEIN 2+ (NEGATIVE); URINE RBC 73 /hpf (0-4); URINE WBC 741 /hpf (0-5)
[2019-03-09 23:47] LABS: YEAST MODERATE (NEGATIVE)
[2019-03-10 00:40] LABS: INR 1.61 (0.83-1.09); PROTHROMBIN TIME (PATIENT) 19.1 SEC (9.7-13.0)
[2019-03-10] MEDS: SODIUM CHLORIDE 0.9% 1000 ML INFUS.BAG IV SCH ×2 (01:00→22:03)
[2019-03-10] MEDS ORDERED: NOREPINEPHRINE BITARTRATE 8,000 MCG in DEXTROSE 5%-WATER - 492 ML IV SCH (02:00)
--- NOTE | 2019-03-10 02:08 | CONSULT ---
Consult Consult Specialty:: ICU Referred by:: Dr Saldivar Reason for Consultation:: Septic shock - History of Present Illness Chief Complaint: Fever, diaphoresis x 1 day History of Present Illness: Pt is a 79yF w PMHx CAD, a fib on Eliquis, sick sinus syndrome s/p PPM, DM, HTN, COPD, GI bleed, CVA (RUE/LE paralysis, non verbal), chronic sacral ulcer, chronic respiratory failure s/p trach, s/p GTube, presenting from [facility] w fev ers temp 100.6 and tachycardia to HR 150, 1563/53, [id number] at 845pm today. Pt is vented and non verbal. was by the bedside and described pt being well until about 8pm when she developed fevers and diaphoresis necessitating tylenol. She was subsequently sent to the ED where she was found to be in afib w/rvr up 140s, EKG- Vent rate 145, Q waves in anterior lateral leads, low voltage with nl axis, QTC-469. Pt required increased vent settings (was desaturating at 50%fio2 when I saw and I increased fio2 to 70%). Baseline vent dnuymdta-DM-11/350/40%/5. Pt had SBP in 80s with MAP in 50s in the ED. When I saw she was receiving her second liter of fluid due initially to poor access and levophed was started. Per , pt is full code. In ED pt received, vanc, zosyn and tylenol. Last admission 02/19 pt received treatment with avycaz for enterobacter wound cx and ucx positive. 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) Cardio/Vascular: Yes: AFIB (on AC), Aortic Stenosis (s/p ring repair at [facility]), CAD, HTN, Mitral Insufficiency (MVR 2009 [facility]), Other (PPM) Pulmonary: Yes: COPD Gastrointestinal: Yes: Diverticulosis, GI Bleed (recent bleed felt to be 2ndary to vascular ectasias), Other (5/18 four adenomatous tx colon polyps resected, cecal angiodysplasias seen.) Hepatobiliary: Yes: Cirrhosis (wound) Rheumatology: Yes: Other (osteoarthritis) Endocrine: Yes: Diabetes Mellitus - Past Surgical History Past Surgical History: Yes: Colonoscopy, Upper Endoscopy - Alcohol/Substance Use Hx Alcohol Use: No History of Substance Use: reports: None - Smoking History Smoking history: Unknown if ever smoked Have you smoked in the past 12 months: No If you are a former smoker, when did you quit?: 2007 - Social History Usual Living Arrangement: With Spouse ADL: Independent 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 History of Recent Travel: No Home Medications - Allergies Allergies/Adverse Reactions: Allergies Allergy/AdvReac Type Severity Reaction Status Date / Time No Known Allergies Allergy Verified 02/09/19 18:58 - Home Medications Home Medications: Ambulatory Orders Apixaban [Eliquis -] 5 mg PO BID tablet 07/26/17 Ascorbic Acid [Vitamin C -] 500 mg PO DAILY 30 Days #60 tablet MDD 2 07/26/17 Atorvastatin Ca [Lipitor] 80 mg PO HS tablet 07/26/17 Ferrous Sulfate [Feosol] 325 mg PO DAILY@0800 ud 07/26/17 Fluoxetine HCl Liquid [Prozac 20mg/5mL Oral Solution -] 20 mg PO DAILY 04/28/18 Furosemide [Lasix -] 20 mg PO BID@0600,1400 04/28/18 Metoprolol Tartrate [Lopressor -] 75 mg PO TID 04/28/18 Lisinopril [Prinivil] 10 mg PO DAILY #30 tablet MDD 1 05/02/18 Ranolazine [Ranexa -] 500 mg PO BID tab 06/30/18 Albuterol 0.083% Nebulizer Sandrita [Ventolin 0.083% Nebulizer Soln -] 1 amp NEB Q4H PRN amp 02/23/19 Apixaban [Eliquis -] 5 mg PO BID tablet 02/23/19 Furosemide [Lasix -] 20 mg PO BID@0600,1400 tablet 02/23/19 Insulin Sliding Scale [Novolog Vial Sliding Scale -] 1 vial SQ ACHS units 02/23 Lisinopril [Prinivil] 10 mg PEG DAILY tablet 02/23/19 Nystatin Powder [Nystop Powder -] 1 applic TP TID applic 02/23/19 Acetaminophen [Tylenol .Regular Strength -] 650 mg PO Q6H PRN tablet 03/03/19 Ferrous Sulfate [Feosol] 300 mg GT BID udc 03/03/19 Insulin (Levemir) [Levemir Vial] 10 units SQ 0700,2200 units 03/03/19 Pantoprazole Suspension [Protonix Packets For Oral Suspension -] 40 mg PEG DAILY packet 03/03/19 Sodium Hypochlorite [Dakin's Solution 0.25% (Half-Strength) -] 1 applic TP DAILY ml 03/03/19 Family Medical History Family History: Unable to Obtain Review of Systems Unable to obtain ROS, reason: clinical state Physical Exam Vital Signs: Vital Signs Temperature 102.2 F H 03/09/19 21:50 Pulse Rate 157 H 03/09/19 21:50 Respiratory Rate 18 03/10/19 01:13 Blood Pressure 84/57 L 03/09/19 21:50 O2 Sat by Pulse Oximetry (%) 100 03/09/19 21:50 Constitutional: Yes: Diaphoresis, Moderate Distress Eyes: Yes: Conjunctiva Clear HENT: Yes: Other (RIJ) Cardiovascular: Yes: Tachycardia, Pulse Irregular, S1, S2 Respiratory: Yes: Mechanically Ventilated, Rhonchi Gastrointestinal: Yes: Soft, Other (PEG tube with old feed in tube) ...Rectal Exam: Yes: Other (rectal tube) Renal/: Yes: Craven Present Edema: Yes Edema: LUE: 1+, RUE: 1+ Peripheral Pulses WNL: Yes Integumentary: Yes: Pressure Ulcer ([id number]) Neurological: Yes: Aphasia, Lethargy, Other (nonverbal) Labs: CBC, BMP 03/09/19 22:19 03/09/19 22:19 Imaging - Results Chest X-ray: Image Reviewed Assessment/Plan Ambulatory Orders Apixaban [Eliquis -] 5 mg PO BID tablet 07/26/17 Ascorbic Acid [Vitamin C -] 500 mg PO DAILY 30 Days #60 tablet MDD 2 07/26/17 Atorvastatin Ca [Lipitor] 80 mg PO HS tablet 07/26/17 Ferrous Sulfate [Feosol] 325 mg PO DAILY@0800 ud 07/26/17 Fluoxetine HCl Liquid [Prozac 20mg/5mL Oral Solution -] 20 mg PO DAILY 04/28/18 Furosemide [Lasix -] 20 mg PO BID@0600,1400 04/28/18 Metoprolol Tartrate [Lopressor -] 75 mg PO TID 04/28/18 Lisinopril [Prinivil] 10 mg PO DAILY #30 tablet MDD 1 05/02/18 Ranolazine [Ranexa -] 500 mg PO BID tab 06/30/18 Albuterol 0.083% Nebulizer Sandrita [Ventolin 0.083% Nebulizer Soln -] 1 amp NEB Q4H PRN amp 02/23/19 Apixaban [Eliquis -] 5 mg PO BID tablet 02/23/19 Furosemide [Lasix -] 20 mg PO BID@0600,1400 tablet 02/23/19 Insulin Sliding Scale [Novolog Vial Sliding Scale -] 1 vial SQ ACHS units 02/23/19 Lisinopril [Prinivil] 10 mg PEG DAILY tablet 02/23/19 Nystatin Powder [Nystop Powder -] 1 applic TP TID applic 02/23/19 Acetaminophen [Tylenol .Regular Strength -] 650 mg PO Q6H PRN tablet 03/03/19 Ferrous Sulfate [Feosol] 300 mg GT BID udc 03/03/19 Insulin (Levemir) [Levemir Vial] 10 units SQ 0700,2200 units 03/03/19 Pantoprazole Suspension [Protonix Packets For Oral Suspension -] 40 mg PEG DAILY packet 03/03/19 Sodium Hypochlorite [Dakin's Solution 0.25% (Half-Strength) -] 1 applic TP DAILY ml 03/03/19 Current Medications Chlorhexidine Gluconate (Hibiclens For Decolonization -) 1 applic TP HS [facility]AHMAN Norepinephrine Bitartrate 8, (000 mcg/ Dextrose) 500 mls @ 7.26 mls/hr IV ASDIR BAHMAN; Protocol Mupirocin (Bactroban Ointment (For Decolonization) -) 1 applic NS BID [facility]AHMAN Stop: 03/15/19 09:59 Sodium Chloride (Normal Saline -) 1,936 ml 30 ml/kg (1936 ml) IV ONCE BAHMAN Last Admin: 03/10/19 01:00 Dose: 1,936 ml Assessment/Plan: Pt is a 79yF w PMHx CAD, a fib on Eliquis, sick sinus syndrome s/p PPM, DM, HTN, COPD, GI bleed, CVA (RUE/LE paralysis, non verbal), chronic sacral ulcer, chronic respiratory failure s/p trach, s/p GTube, presenting from [facility] w fevers temp 100.6 and tachycardia to HR 150, 1563/53, [id number] at 845pm , ICU consulted for septic shock secondary to UTI Neuro: #Acute metabolic encephalopathy secondary to sepsis #Hx of CVA S/p CVA (RUE/LE paralysis, non verbal) Cardio: #Hypotension in septic shock #CAD, #a fib on Eliquis, #sick sinus syndrome s/p PPM, #Hx of HTN Pt hypotensive, still getting iv fluids, but BP not recordable, Levophed added Cont aggressive fluids to keep MAP >65 Endo: DM, BGM ISS Pulm: COPD, chronic respiratory failure s/p trach- pt with sats appearing to be in the low 70s to 80s Fio2 increased, abg with resp alkalosis Will adjust vent settings GI: Hx of GI bleed, s/p GTube, MSK: chronic sacral ulcer Renal/Urogenital Positive UA Pt with chronic craven Ucx, Bcx, neck wound pending ID #Septic shock secondary to UTI qSOFA-3/3- High risk for in hospital mortality SOFA score- 4, < 33.3% mortality risk Pt received vanc/zosyn in ED Prior enterobacter with poly- resistance ID consult PPX Eliquis FEN Visit type - Emergency Visit Emergency Visit: Yes ED Registration Date: 03/09/19 Care time: The patient presented to the Emergency Department on the above date and was hospitalized for further evaluation of their emergent condition. - New Patient This patient is new to me today: Yes Date on this admission: 03/11/19 - Critical Care Critical Care patient: Yes Total Critical Care Time (in minutes): 37 Critical Care Statement: The care of this patient involved high complexity decision making to prevent further life threatening deterioration of the patient's condition and/or to evaluate & treat vital organ system(s) failure or risk of failure. ATTENDING PHYSICIAN STATEMENT I saw and evaluated the patient. I reviewed the resident's note and discussed the case with the resident. I agree with the resident's findings and plan as documented. SUBJECTIVE: OBJECTIVE: ASSESSMENT AND PLAN:
[2019-03-10 02:11] LABS: ALLENS TEST POSITIVE; ARTERIAL BLD GAS O2 SATURATION 99.5 % (95-98); ARTERIAL BLOOD GAS BASE EXCESS 6.4 meq/l (-2-2); ARTERIAL BLOOD GAS PCO2 38.4 mmHg (35-45); ARTERIAL BLOOD GAS PO2 161 mmHg (80-100); CARBOXYHEMOGLOBIN 1.4 % (0-2)
--- NOTE | 2019-03-10 02:14 | HP ---
Admitting History and Physical - Primary Care Physician PCP: Jagjit Tavares - Admission Chief Complaint: Fever, Tachycardia History of Present Illness: This is a 79 y/o woman from [facility] with a PMHx of CAD, Afib (on Eliquis), Sick Sinus Syndrome s/p PPM, CVA (RUE/LE residual, non-verbal), Chronic Respiratory Failure s/p trach- vent dependent, COPD, HTN, DM, GIB, Sacral Wound. Who presents to the ED with fever 100.6 and HR 150at 20:45 last night sent it for evaluation. Patient has a history of CVA is non-verbal and is trach- vent dependent. Patient's spouse was at bedside, provided HPI. 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) Cardiovascular: Yes: AFIB (on AC), Aortic Stenosis (s/p ring repair at [facility]), CAD , HTN, Mitral Insufficiency (MVR 2009 [facility]), Other (PPM) Pulmonary: Yes: COPD Gastrointestinal: Yes: Diverticulosis, GI Bleed (recent bleed felt to be 2ndary to vascular ectasias), Other (07/19 four adenomatous tx colon polyps resected, cecal angiodysplasias seen.) Hepatobiliary: Yes: Cirrhosis (wound) Heme/Onc: Yes: Anemia Rheumatology: Yes: Other (osteoarthritis) Endocrine: Yes: Diabetes Mellitus - Past Surgical History Past Surgical History: Yes: Colonoscopy, Upper Endoscopy Additional Past Surgical History: Tracheotomy - Advance Directives Advance Directives: Yes: Health Care Proxy - Smoking History Smoking history: Former smoker Have you smoked in the past 12 months: No If you are a former smoker, when did you quit?: 2007 - Alcohol/Substance Use Hx Alcohol Use: No History of Substance Use: reports: None - Social History Usual Living Arrangement: Yes: Residential ADL: Support Services 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 History of Recent Travel: No Home Medications - Allergies Allergies/Adverse Reactions: Allergies Allergy/AdvReac Type Severity Reaction Status Date / Time No Known Allergies Allergy Verified 02/09/19 18:58 - Home Medications Home Medications: Ambulatory Orders Apixaban [Eliquis -] 5 mg PO BID tablet 07/26/17 Ascorbic Acid [Vitamin C -] 500 mg PO DAILY 30 Days #60 tablet MDD 2 07/26/17 Atorvastatin Ca [Lipitor] 80 mg PO HS tablet 07/26/17 Ferrous Sulfate [Feosol] 325 mg PO DAILY@0800 ud 07/26/17 Fluoxetine HCl Liquid [Prozac 20mg/5mL Oral Solution -] 20 mg PO DAILY 04/28/18 Furosemide [Lasix -] 20 mg PO BID@0600,1400 04/28/18 Metoprolol Tartrate [Lopressor -] 75 mg PO TID 04/28/18 Lisinopril [Prinivil] 10 mg PO DAILY #30 tablet MDD 1 05/02/18 Ranolazine [Ranexa -] 500 mg PO BID tab 06/30/18 Albuterol 0.083% Nebulizer Sandrita [Ventolin 0.083% Nebulizer Soln -] 1 amp NEB Q4H PRN amp 02/23/19 Apixaban [Eliquis -] 5 mg PO BID tablet 02/23/19 Furosemide [Lasix -] 20 mg PO BID@0600,1400 tablet 02/23/19 Insulin Sliding Scale [Novolog Vial Sliding Scale -] 1 vial SQ ACHS units 02/23 Lisinopril [Prinivil] 10 mg PEG DAILY tablet 02/23/19 Nystatin Powder [Nystop Powder -] 1 applic TP TID applic 02/23/19 Acetaminophen [Tylenol .Regular Strength -] 650 mg PO Q6H PRN tablet 03/03/19 Ferrous Sulfate [Feosol] 300 mg GT BID udc 03/03/19 Insulin (Levemir) [Levemir Vial] 10 units SQ 0700,2200 units 03/03/19 Pantoprazole Suspension [Protonix Packets For Oral Suspension -] 40 mg PEG DAILY packet 03/03/19 Sodium Hypochlorite [Dakin's Solution 0.25% (Half-Strength) -] 1 applic TP DAILY ml 03/03/19 Family Medical History Family History: Unable to Obtain Review of Systems Unable to obtain ROS, reason: clinical condition Physical Examination Vital Signs: Vital Signs Temperature 102.2 F H 03/09/19 21:50 Pulse Rate 157 H 03/09/19 21:50 Respiratory Rate 18 03/10/19 01:13 Blood Pressure 84/57 L 03/09/19 21:50 O2 Sat by Pulse Oximetry (%) 100 03/09/19 21:50 Constitutional: Yes: No Distress, Calm, Other (non-verbal) Eyes: Yes: Conjunctiva Clear, PERRL HENT: Yes: WNL, Atraumatic, Normocephalic Neck: Yes: Supple, Other (Trach) Cardiovascular: Yes: Tachycardia, Pulse Irregular, S1, S2 Respiratory: Yes: Diminished, Mechanically Ventilated (trach), Rhonchi Gastrointestinal: Yes: Soft, Other (Peg) ...Rectal Exam: Yes: Other (rectal tube) Renal/: Yes: [place] Present (20cc dark yellow urine in collection bag) Breast(s): Yes: WNL Edema: Yes Edema: LLE: 2+, RLE: 2+ Peripheral Pulses WNL: Yes Integumentary: Yes: Pressure Ulcer (unstageable Sacral) Wound/Incision: Yes: Other (DSD applied) Neurological: Yes: Lethargy, Pre-Existing Deficit Labs: CBC, BMP 03/09/19 22:19 03/09/19 22:19 Laboratory Results - last 24 hr 03/09/19 03/09/19 03/09/19 22:19 22:19 22:19 WBC 18.3 H RBC 3.48 L Hgb 8.7 L Hct 28.8 L MCV 82.7 MCH 24.9 L MCHC 30.1 L RDW 19.6 H Plt Count 418 D MPV 10.1 Absolute Neuts (auto) 15.2 H Total Counted 100 Neutrophils % 83.3 H Neutrophils % (Manual) 77.0 Band Neutrophils % 2.0 Lymphocytes % 10.3 D Lymphocytes % (Manual) 15.0 Monocytes % 5.0 Monocytes % (Manual) 5 Eosinophils % 0.6 D Eosinophils % (Manual) 1.0 Basophils % 0.8 Nucleated RBC % 0 Hypochromia 1+ Platelet Estimate Increased Platelet Comment No clumping noted Polychromasia 1+ Anisocytosis 1+ Microcytosis 1+ PT with INR INR Anticoagulation Therapy Puncture Site ABG pH ABG pCO2 at Pt Temp ABG pO2 at Pt Temp ABG HCO3 ABG O2 Sat (Measured) ABG O2 Content ABG Base Excess Joel Test VBG pH POC VBG pCO2 POC VBG pO2 VBG HCO3 VBG O2 Sat (Dylan) VBG Base Excess Carboxyhemoglobin Methemoglobin O2 Delivery Device Oxygen Flow Rate Vent Mode Vent Rate Mechanical Rate PEEP Pressure Support Vent Sodium 148 H Potassium 5.1 Chloride 110 H Carbon Dioxide 34 H Anion Gap 5 L BUN 53.8 H Creatinine 0.9 Est GFR (CKD-EPI)AfAm 71.48 Est GFR (CKD-EPI)NonAf 61.67 POC Glucometer Random Glucose 208 H Lactic Acid 2.4 H* Calcium 8.6 Total Bilirubin 0.4 AST 103 H ALT 49 Alkaline Phosphatase 345 H Troponin I 0.03 Total Protein 6.3 L Albumin 1.5 L Urine Color Urine Appearance Urine pH Ur Specific [place] Urine Protein Urine Glucose (UA) Urine Ketones Urine Blood Urine Nitrite Urine Bilirubin Urine Urobilinogen Ur Leukocyte Esterase Urine WBC (Auto) Urine RBC (Auto) Urine Casts (Auto) U Pathogenic Cast Auto U Epithel Cells (Auto) Urine Bacteria (Auto) Urine Yeast (Auto) 03/09/19 03/09/19 03/10/19 22:19 23:14 00:05 WBC RBC Hgb Hct MCV MCH MCHC RDW Plt Count MPV Absolute Neuts (auto) Total Counted Neutrophils % Neutrophils % (Manual) Band Neutrophils % Lymphocytes % Lymphocytes % (Manual) Monocytes % Monocytes % (Manual) Eosinophils % Eosinophils % (Manual) Basophils % Nucleated RBC % Hypochromia Platelet Estimate Platelet Comment Polychromasia Anisocytosis Microcytosis PT with INR 19.10 H INR 1.61 H Anticoagulation Therapy Puncture Site ABG pH ABG pCO2 at Pt Temp ABG pO2 at Pt Temp ABG HCO3 ABG O2 Sat (Measured) ABG O2 Content ABG Base Excess Joel Test VBG pH 7.45 H POC VBG pCO2 49.8 POC VBG pO2 < 49 H VBG HCO3 33.6 H VBG O2 Sat (Dylan) 71.1 VBG Base Excess 8.8 H Carboxyhemoglobin Methemoglobin O2 Delivery Device Oxygen Flow Rate Vent Mode Vent Rate Mechanical Rate PEEP Pressure Support Vent Sodium Potassium Chloride Carbon Dioxide Anion Gap BUN Creatinine Est GFR (CKD-EPI)AfAm Est GFR (CKD-EPI)NonAf POC Glucometer Random Glucose Lactic Acid Calcium Total Bilirubin AST ALT Alkaline Phosphatase Troponin I Total Protein Albumin Urine Color Dk yellow Urine Appearance Turbid Urine pH 5.0 D Ur Specific [place] 1.025 Urine Protein 2+ H Urine Glucose (UA) Negative Urine Ketones Trace H Urine Blood 3+ H Urine Nitrite Negative Urine Bilirubin Negative Urine Urobilinogen 1.0 Ur Leukocyte Esterase 3+ H Urine WBC (Auto) 741 Urine RBC (Auto) 73 Urine Casts (Auto) 26 U Pathogenic Cast Auto Negative U Epithel Cells (Auto) 13.0 Urine Bacteria (Auto) 4955.4 Urine Yeast (Auto) Moderate 03/10/19 03/10/19 03/10/19 01:59 02:00 06:22 WBC RBC Hgb Hct MCV MCH MCHC RDW Plt Count MPV Absolute Neuts (auto) Total Counted Neutrophils % Neutrophils % (Manual) Band Neutrophils % Lymphocytes % Lymphocytes % (Manual) Monocytes % Monocytes % (Manual) Eosinophils % Eosinophils % (Manual) Basophils % Nucleated RBC % Hypochromia Platelet Estimate Platelet Comment Polychromasia Anisocytosis Microcytosis PT with INR INR Anticoagulation Therapy No Result Required. Puncture Site Right radial ABG pH 7.50 H ABG pCO2 at Pt Temp 38.4 ABG pO2 at Pt Temp 161 H ABG HCO3 29.8 H ABG O2 Sat (Measured) 99.5 H ABG O2 Content 11.2 ABG Base Excess 6.4 H Joel Test Positive VBG pH POC VBG pCO2 POC VBG pO2 VBG HCO3 VBG O2 Sat (Dylan) VBG Base Excess Carboxyhemoglobin 1.4 Methemoglobin < 1.0 O2 Delivery Device Vent Oxygen Flow Rate 70% Vent Mode No Result Required. Vent Rate 18 Mechanical Rate No Result Required. PEEP 5.0 Pressure Support Vent 350 Sodium Potassium Chloride Carbon Dioxide Anion Gap BUN Creatinine Est GFR (CKD-EPI)AfAm Est GFR (CKD-EPI)NonAf POC Glucometer 288 Random Glucose Lactic Acid 1.5 Calcium Total Bilirubin AST ALT Alkaline Phosphatase Troponin I Total Protein Albumin Urine Color Urine Appearance Urine pH Ur Specific [place] Urine Protein Urine Glucose (UA) Urine Ketones Urine Blood Urine Nitrite Urine Bilirubin Urine Urobilinogen Ur Leukocyte Esterase Urine WBC (Auto) Urine RBC (Auto) Urine Casts (Auto) U Pathogenic Cast Auto U Epithel Cells (Auto) Urine Bacteria (Auto) Urine Yeast (Auto) Imaging - Results Chest X-ray: Image Reviewed EKG: Image Reviewed Problem List - Problems (1) Septic shock Assessment/Plan: Admit to ICU Likely secondary to UTI vs Pneumonia vs Sacral Wound qSOFA-3 Sepsis Criteria Met V~ Septic Shock:T Max 102, P 157, R 26, BP 84/57, WBC 18, Lactic Acid 2.4 CURB65- 5 Continue cardiac monitoring Blood Cultures-pending Urine Culture-pending Urine Legionella pending Sputum Culture-pending Wound Culture-pending Chest Xray image reviewed EKG- Afib with RVR Appreciate Wall And Floor Tiler Consult Appreciate ID Consult NS bolus 3L given in ED Central Line placed in ED Levophed started in ED Maintain MAP > 65 Vancomycin, Zosyn given in ED, will continue Monitor CBC, BMP Ofirmev NPO Code(s): A41.9 - SEPSIS, UNSPECIFIED ORGANISM; R65.21 - SEVERE SEPSIS WITH SEPTIC SHOCK (2) Acute and chronic respiratory failure Assessment/Plan: s/p Trach- vent dependent Vent Settings, per CT records: TV 350, Fio2 40%, R18, Peep 5 Appreciate Pulmonology Consult Monitor vitals Continue home meds Code(s): J96.20 - ACUTE AND CHR RESP FAILURE, UNSP W HYPOXIA OR HYPERCAPNIA (3) Atrial fibrillation with RVR Assessment/Plan: Continue cardiac monitoring EKG reviewed Appreciate Cardiology consult Hold BB secondary to Septic Shock Duplex of LE-pending r/o DVT Wells Score 1 Code(s): I48.91 - UNSPECIFIED ATRIAL FIBRILLATION (4) CAD (coronary artery disease) Code(s): I25.10 - ATHSCL HEART DISEASE OF [place] CORONARY ARTERY W/O ANG PCTRS Qualifiers: Coronary Disease-Associated Artery/Lesion type: [place] artery [place] vs. transplanted heart: [place] heart Associated angina: without angina Qualified Code(s): I25.10 - Atherosclerotic heart disease of [place] coronary artery without angina pectoris (5) CKD (chronic kidney disease) Assessment/Plan: Appreciate Renal consult Monitor BMP Avoid Nephrotoxic Drugs Code(s): N18.9 - CHRONIC KIDNEY DISEASE, UNSPECIFIED Qualifiers: Chronic kidney disease stage: stage 2 (mild) Qualified Code(s): N18.2 - Chronic kidney disease, stage 2 (mild) (6) CVA (cerebral vascular accident) Assessment/Plan: Will continue to monitor and treat with interventions accordingly Fall Precautions Continue Lipitor Hold BP meds secondary to Septic Shock Monitor vitals Code(s): I63.9 - CEREBRAL INFARCTION, UNSPECIFIED Qualifiers: CVA mechanism: embolism (7) Diabetes mellitus Assessment/Plan: BGMs Hold home meds until tube feedings resumed Code(s): E11.9 - TYPE 2 DIABETES MELLITUS WITHOUT COMPLICATIONS Qualifiers: Diabetes mellitus type: type 2 (8) Pleural effusion Assessment/Plan: Chest Xray image reviewed Continue to monitor closely Appreciate Pulmonology consult Monitor vitals Hold Lasix secondary to Septic Shock Code(s): J90 - PLEURAL EFFUSION, NOT ELSEWHERE CLASSIFIED (9) Pneumonia Assessment/Plan: CURB65 5 Chest Xray image- ? RLL infiltrate Blood Cultures-pending Urine Legionella-pending Continue Vancomycin, Zosyn Appreciate ID consult +leukocytosis with left shift Lactic Acid 2.4~1.5 Monitor CBC Monitor vitals Code(s): J18.9 - PNEUMONIA, UNSPECIFIED ORGANISM Qualifiers: Pneumonia type: due to unspecified organism Laterality: right Lung location: middle lobe of lung (10) Sacral decubitus ulcer Assessment/Plan: Wound culture-pending Appreciate Calender Let Off Helper Consult Wound Care Resume wound vac ABX Monitor CBC Monitor vitals Code(s): L89.159 - PRESSURE ULCER OF SACRAL REGION, UNSPECIFIED STAGE (11) UTI (urinary tract infection) Assessment/Plan: UA- +3 blood, +3 leukocyte esterase, WBC 741, Bacteria 4955 Urine culture-pending Appreciate ID consult Vancomycin, Zosyn given in ED, continue Monitor CBC, BMP Monitor vitals Code(s): N39.0 - URINARY TRACT INFECTION, SITE NOT SPECIFIED Qualifiers: Urinary tract infection type: acute cystitis Hematuria presence: with hematuria Qualified Code(s): N30.01 - Acute cystitis with hematuria (12) Hypernatremia Assessment/Plan: Likely secondary to CHF vs worsening Renal function from Sepsis Appreciate Renal Consult Code(s): E87.0 - HYPEROSMOLALITY AND HYPERNATREMIA (13) COPD (chronic obstructive pulmonary disease) Assessment/Plan: trach- vent dependent Appreciate Pulm consult Continue home meds monitor Spo2 Code(s): J44.9 - CHRONIC OBSTRUCTIVE PULMONARY DISEASE, UNSPECIFIED (14) HTN (hypertension) Assessment/Plan: Hold BP meds secondary to Septic shock Cardiac Monitoring Code(s): I10 - ESSENTIAL (PRIMARY) HYPERTENSION Qualifiers: Hypertension type: essential hypertension Qualified Code(s): I10 - Essential (primary) hypertension Assessment/Plan This is a 79 y/o woman from [facility] with a PMHx of CAD, Afib (on Eliquis), Sick Sinus Syndrome s/p PPM, CVA (RUE/LE residual, non-verbal), Chronic Respiratory Failure s/p trach- vent dependent, COPD, HTN, DM, GIB, Sacral Wound. Admitted to ICU for Septic Shock, UTI, Afib with RVR, Chronic Respiratory Failure with Hypercapnia, Sacral Wound for further evaluation of their emergent condition. Plan: see Problem List FEN Replete lytes prn NPO DVT ppx OOB SCDs Continue Eliquis Code Status: Full Code, HCP Dispo: Requires Inpatient Care Visit type - Emergency Visit Emergency Visit: Yes ED Registration Date: 03/09/19 Care time: The patient presented to the Emergency Department on the above date and was hospitalized for further evaluation of their emergent condition. - New Patient This patient is new to me today: Yes Date on this admission: 03/10/19 - Critical Care Critical Care patient: Yes Total Critical Care Time (in minutes): 40 Critical Care Statement: The care of this patient involved high complexity decision making to prevent further life threatening deterioration of the patient 's condition and/or to evaluate & treat vital organ system(s) failure or risk of failure.
[2019-03-10] MEDS ORDERED: CEFTAZIDIME/AVIBACTAM 2.5 GM in DEXTROSE 5%-WATER - 250 ML IVPB ONE (05:22)
[2019-03-10] MEDS: NOREPINEPHRINE BITARTRATE 8,000 MCG in DEXTROSE 5%-WATER - 492 ML IV SCH (06:20)
[2019-03-10] MEDS: INSULIN SLIDING SCALE (NOVOLOG) 1 VIAL SQ SCH ×3 (06:37→17:58)
[2019-03-10 07:07] LABS: ARTERIAL BLOOD GAS BASE EXCESS 5.5 meq/l (-2-2); ARTERIAL BLOOD GAS PCO2 43.7 mmHg (35-45); ARTERIAL BLOOD GAS PO2 83.9 mmHg (80-100); ARTERIAL BLOOD GAS pH 7.45 (7.35-7.45)
[2019-03-10 07:08] LABS: ALLENS TEST POSITIVE
[2019-03-10 07:24] LABS: BASO % 0.4 % (0-2.0); EOS % 0.6 % (0-4.5); HEMATOCRIT 26.6 % (32.4-45.2); LYMPH % 9.5 % (8-40); MCHC 30.3 g/dl (32.0-36.0); MEAN CELL VOLUME 82.5 fl (80-96); MEAN PLT VOLUME 9.9 fl (7.5-11.1); MONO % 5.4 % (3.8-10.2); NEUT % 84.1 % (42.8-82.8); PLATELET COUNT 369 K/MM3 (134-434); RBC 3.22 M/mm3 (3.60-5.2); RDW 19.8 % (11.6-15.6); WHITE BLOOD COUNT 20.3 K/mm3 (4.0-10.0)
[2019-03-10 08:05] LABS: ALBUMIN 1.4 g/dl (3.4-5.0); BILIRUBIN,TOTAL 0.4 mg/dL (0.2-1); BLOOD UREA NITROGEN 52.3 mg/dL (7-18); CALCIUM 8.1 mg/dL (8.5-10.1); MAGNESIUM 2.6 mg/dL (1.8-2.4); PHOSPHOROUS 3.1 mg/dL (2.5-4.9); POTASSIUM 4.5 mmol/L (3.5-5.1); TOT PROT 5.7 g/dl (6.4-8.2)
--- NOTE | 2019-03-10 08:39 | PN ---
Progress Note, Physician - Current Medication List Current Medications: Active Medications Apixaban (Eliquis -) 5 mg PEG BID [facility] Chlorhexidine Gluconate (Hibiclens For Decolonization -) 1 applic TP HS [facility] Vancomycin HCl 1,500 mg/ (Dextrose) 250 mls @ 125 mls/hr IVPB Q12H [facility]; Protocol Piperacillin Sod/Tazobactam (Sod 4.5 gm/ Dextrose) 100 mls @ 200 mls/hr IVPB Q8H-IV [facility]; Protocol Norepinephrine Bitartrate 8, (000 mcg/ Dextrose) 500 mls @ 18.75 mls/hr IV TITR [facility]; Protocol Last Titration: 03/10/19 07:03 Dose: 8 mcg/min, 30 mls/hr Piperacillin Sod/Tazobactam (Sod 4.5 gm/ Dextrose) 100 mls @ 200 mls/hr IVPB Q8H-IV [facility]; Protocol Stop: 03/11/19 02:29 Insulin Aspart (Novolog Vial Sliding Scale -) 1 vial SQ Q6HPO [facility]; Protocol Last Admin: 03/10/19 06:37 Dose: 6 units Mupirocin (Bactroban Ointment (For Decolonization) -) 1 applic NS BID [facility] Stop: 03/15/19 09:59 Sodium Chloride (Normal Saline -) 1,936 ml 30 ml/kg (1936 ml) IV ONCE [facility] Last Admin: 03/10/19 01:00 Dose: 1,936 ml - Objective Vital Signs: Vital Signs Temperature 99.1 F 03/10/19 05:00 Pulse Rate 141 H 03/10/19 07:03 Respiratory Rate 22 H 03/10/19 07:00 Blood Pressure 115/92 03/10/19 07:03 O2 Sat by Pulse Oximetry (%) 100 03/10/19 07:04 Cardiovascular: Yes: Tachycardia, Pulse Irregular, S1, S2 Respiratory: Yes: Mechanically Ventilated, Rales Gastrointestinal: Yes: Normal Bowel Sounds, Soft Labs: CBC, BMP 03/10/19 05:30 03/10/19 06:00 INR, PTT INR 1.61 (0.83-1.09) H 03/10/19 00:05 Problem List - Problems (1) Sepsis Assessment/Plan: CULTURES IV ABX--ZOSYN-VANCO ID CONSULT PRESSERS TO MAINTAIN BP FLUIDS Code(s): A41.9 - SEPSIS, UNSPECIFIED ORGANISM Qualifiers: Sepsis type: sepsis due to unspecified organism Sepsis acute organ dysfunction status: without acute organ dysfunction Qualified Code(s): A41.9 - Sepsis, unspecified organism (2) CHF (congestive heart failure) Assessment/Plan: DUE TO SEPSIS-LOW ALBUMIN MAY NEED TPN REUME FEEDINGS MONITOR HOLD OFF DIURETICS DUE TO LOW BP Code(s): I50.9 - HEART FAILURE, UNSPECIFIED (3) Atrial fibrillation with RVR Assessment/Plan: WILL GIVE DIG IVP MONITOR RATE ON AC Code(s): I48.91 - UNSPECIFIED ATRIAL FIBRILLATION (4) Acute and chronic respiratory failure Assessment/Plan: ICU MONITORING PULM CONSULT VENT SETTINGS ORDERED Code(s): J96.20 - ACUTE AND CHR RESP FAILURE, UNSP W HYPOXIA OR HYPERCAPNIA
[2019-03-10] MEDS ORDERED: ALBUTEROL SO4 0.083% IH SOL 2.5 MG/3 ML VIAL.NEB. NEB PRN (08:41)
--- NOTE | 2019-03-10 09:29 | EKG ---
Test Reason : Blood Pressure : / mmHG Vent. Rate : 145 BPM Atrial Rate : 111 BPM P-R Int : 000 ms QRS Dur : 072 ms QT Int : 302 ms P-R-T Axes : 000 023 135 degrees QTc Int : 469 ms ATRIAL FIBRILLATION WITH RAPID VENTRICULAR RESPONSE LOW VOLTAGE QRS NONSPECIFIC T WAVE ABNORMALITY ABNORMAL ECG Confirmed by David Teixeira MD ([id number]) on 03/10/2019 9:29:04 AM Referred By: Confirmed By:David Teixeira MD
[2019-03-10] MEDS ORDERED: VANCOMYCIN HCL 1,500 MG in DEXTROSE 5%-WATER - 250 ML IVPB SCH (10:00)
[2019-03-10] MEDS ORDERED: PIPERACILLIN/TAZOB 4.5 GM 4.5 GM in DEXTROSE 5%-WATER 100 ML IVPB SCH (10:00)
[2019-03-10] MEDS ORDERED: DIGOXIN 0.5 MG/2 ML AMPUL IVPUSH ONE ×2 (10:15→12:45)
--- NOTE | 2019-03-10 10:35 | PN ---
Progress Note (short form) - Note Progress Note: ID CONSULT DICTATED SEPSIS/ SEPTIC SHOCK UTI/ R/O SEPSIS SECONDARY TO UTI SACRAL DECUBITUS LACTIC ACIDOSIS UNCONTROLLED DM CHRONIC RESP FAILURE HX CRE ( ENTEROBACTER IN URINE, WOUND) AWAIT C/S EMPIRIC AVYCAZ/ VANCOMYCIN HEMODYNAMIC SUPPORT STRICT ISOLATION CRITICAL CARE TIME 35MIN
[2019-03-10 10:42] LABS: EPI CELLS >36 /HPF (0-5/HPF); HYALINE CASTS 218 /lpf (0-8); PH,URINE 5.5 (5.0-8.0); URINE APPEARANCE CLOUDY; URINE BACTERIA 10.8 /hpf (NEGATIVE); URINE BILIRUBIN NEGATIVE (NEGATIVE); URINE COLOR YELLOW; URINE GLUCOSE (UA) NEGATIVE (NEGATIVE); URINE KETONE NEGATIVE (NEGATIVE); URINE LEUK ESTERASE 2+ (NEGATIVE); URINE NITRITE NEGATIVE (NEGATIVE); URINE PROTEIN 2+ (NEGATIVE); URINE RBC 23 /hpf (0-4); URINE UROBILINOGEN 0.2 mg/dL (0.2-1.0); URINE WBC 27 /hpf (0-5)
[2019-03-10 10:54] LABS: ANISOCYTOSIS 1+; MACROCYTOSIS 0; PLATELET ESTIMATE NORMAL
[2019-03-10] MEDS ORDERED: AMINO ACIDS 4.25%/D5W 1,000 ML IV SCH (11:00)
--- NOTE | 2019-03-10 11:14 | CONS ---
INFECTIOUS DISEASE CONSULTATION DATE OF CONSULTATION: DATE OF DICTATION: 03/10/2019 HISTORY: The patient is a 79-year-old female who was evaluated for septic shock. History was obtained from the chart as she cannot give a history. The patient is nonverbal at baseline. She is a senior care resident. She was transferred from the senior care after she was noted to be febrile and tachycardic. She was transferred to the emergency room where she was found to have fever 102.2 and a white blood cell count of 18,000. Cultures were obtained. She was empirically treated with vancomycin and Zosyn. She is unable to give any additional history. She has history of chronic respiratory failure on a ventilator. She is nonverbal at baseline. She had a recent long hospitalization at [facility] in February 2019, complicated by urinary tract infection and infected decubitus ulcer. Cultures of the wound and urine were positive for CRE, a resistant Enterobacter. She received a course of Avycaz. Her course has now been complicated by hypotension requiring pressors. PAST MEDICAL HISTORY: Positive for chronic respiratory failure status post tracheostomy, coronary artery disease, atrial fibrillation, sick sinus syndrome, diabetes mellitus, hypertension, COPD, history of GI bleeding, CVA, sacral decubitus ulcer, chronic diarrhea. PAST SURGICAL HISTORY: Status post tracheostomy, feeding gastrostomy, and permanent pacemaker. ALLERGIES: No known allergies. MEDICATIONS: At the present time include Tylenol, albuterol, Eliquis, Lipitor, digoxin, Paxil, norepinephrine, Protonix. SOCIAL HISTORY: She resides in a residential facility, is dependent in activities of daily living. She is bedbound and ventilator dependent. No active tobacco or alcohol use. SYSTEMS REVIEW: Neurologic: Positive for stroke. Cardiac: Positive for atrial fibrillation. Respiratory: As per HPI. Gastrointestinal: Positive for feeding gastrostomy. Genitourinary: Positive for urinary tract infection. LABORATORY DATA: White count 18.3, 83 neutrophils, 2 bands, 10 lymphocytes, hematocrit 28.8, platelets 418, BUN 52, creatinine 1.0, total bilirubin 0.4, alkaline phosphatase 277, AST 53. Cultures are pending. Urinalysis, 741 white cells. Chest x-ray, congestive changes with bibasilar pleural effusions. PHYSICAL EXAMINATION: General: On exam, she is awake but not verbally responsive. Vital Signs: Temperature 98.3, maximum temperature 102.2, blood pressure 92/55, pulse 140 irregular, respirations 22 per minute. HEENT: Sclerae anicteric. Tracheostomy is in place. Neck: There is a catheter present in the right neck. Heart: Sounds tachycardic. S1, S2. Lungs: Diminished breath sounds bilaterally. Abdomen: Soft. No tenderness elicited. Feeding gastrostomy tube present. Extremities: Positive for edema. Stage 4 sacral decubitus ulcer. IMPRESSION: 1. Sepsis/septic shock. 2. Urinary tract infection rule out sepsis secondary to urinary tract infection. 3. Sacral decubitus ulcer. 4. Lactic acidosis. 5. Uncontrolled diabetes mellitus. 6. Chronic respiratory failure. 7. History of carbapenem-resistant Enterobacteriaceae. PLAN: Await cultures. Empiric antibiotic coverage for possible CRE infection with Avycaz. We will add vancomycin for empiric gram-positive coverage pending sepsis workup. Continue hemodynamic support, pressors, ventilatory support, strict isolation. Prognosis is guarded. Critical care time spent, 35 minutes. Thank you for the kind referral. SHARMAINE PARR M.D. [id number]
[2019-03-10] MEDS: APIXABAN 5 MG TABLET PEG SCH ×2 (11:37→22:00)
[2019-03-10] MEDS: MUPIROCIN 2% TOPICAL OINTMENT FOR DECOLONIZATION NS SCH ×2 (11:37→22:02)
[2019-03-10] MEDS: FAMOTIDINE 40 MG/5 ML ORAL SUSPENSION PEG SCH ×2 (11:38→22:02)
[2019-03-10] MEDS: CEFTAZIDIME/AVIBACTAM 2.5 GM in DEXTROSE 5%-WATER - 250 ML IVPB SCH ×2 (12:00→18:15)
[2019-03-10] MEDS: VANCOMYCIN 1 GRAM (PRE-DOCKED) 1,000 MG/250 ML BAG IVPB SCH ×2 (12:00→22:03)
[2019-03-10] MEDS: FLUoxetine HCL 20 MG/5 ML 120 BOTTLE PO SCH (12:10)
[2019-03-10] MEDS ORDERED: PT OWN MED DRAWER 7, Y5N ONE ×3 (12:37→18:08)
[2019-03-10] MEDS ORDERED: METOPROLOL TARTRATE 5 MG/5 ML VIAL IVPUSH ONE (12:39)
[2019-03-10] MEDS ORDERED: METOPROLOL TARTRATE 5 MG/5 ML VIAL IVPUSH PRN (12:55)
--- NOTE | 2019-03-10 13:20 | PN ---
Teaching Attending Note Name of Resident: Buffy Delong ATTENDING PHYSICIAN STATEMENT I saw and evaluated the patient. I reviewed the resident's note and discussed the case with the resident. I agree with the resident's findings and plan as documented. SUBJECTIVE: Pt seen and examined in the ICU. Vented, awake. Off pressors, in rapid afib. OBJECTIVE: Vital Signs Period Temp Pulse Resp BP Sys/[place] Pulse Ox Last 24 Hr 97.9 F-102.2 F 120-157 18-26 73-137/43-92 99-100 Intake & Output 03/07/19 03/08/19 03/09/19 03/10/19 23:59 23:59 23:59 23:59 Intake Total 2775 Output Total 660 Balance 2115 Weight 64.54 kg 64.002 kg Gen: vented, awake Heart: tachycardic, irregular Lung: decreased breath sounds at the bases Abd: soft, nontender Ext: + edema CBC, BMP 03/10/19 05:30 03/10/19 06:00 Active Medications Albuterol Sulfate (Ventolin 0.083% Nebulizer Soln -) 1 amp NEB Q4H PRN PRN Reason: SHORT OF BREATH/WHEEZING Apixaban (Eliquis -) 5 mg PEG BID [facility] Last Admin: 03/10/19 11:37 Dose: 5 mg Atorvastatin Calcium (Lipitor -) 80 mg PO HS [facility] Chlorhexidine Gluconate (Hibiclens For Decolonization -) 1 applic TP HS [facility] Famotidine (Pepcid) 20 mg PEG BID [facility] Last Admin: 03/10/19 11:38 Dose: 20 mg Fluoxetine HCl (Prozac Oral Solution -) 20 mg PO DAILY [facility] Last Admin: 03/10/19 12:10 Dose: 20 mg Norepinephrine Bitartrate 8, (000 mcg/ Dextrose) 500 mls @ 18.75 mls/hr IV TITR [facility]; Protocol Last Titration: 03/10/19 07:03 Dose: 8 mcg/min, 30 mls/hr Amino Acids (Clinimix -) 1,000 mls @ 42 mls/hr IV Q24H [facility] Ceftazidime/Avibactam 2.5 gm/ (Dextrose) 250 mls @ 125 mls/hr IVPB Q8H-IV [facility]; Protocol Last Admin: 03/10/19 12:00 Dose: 125 mls/hr Vancomycin HCl (Vancomycin (Pre-Docked)) 1,000 mg in 250 mls @ 166.667 mls/hr IVPB Q12H [facility]; Protocol Insulin Aspart (Novolog Vial Sliding Scale -) 1 vial SQ Q6HPO [facility]; Protocol Last Admin: 03/10/19 06:37 Dose: 6 units Metoprolol Tartrate (Lopressor -) 75 mg PO TID [facility] Metoprolol Tartrate (Lopressor Injection -) 5 mg IVPUSH Q4H PRN PRN Reason: HYPERTENSION Mupirocin (Bactroban Ointment (For Decolonization) -) 1 applic NS BID [facility] Stop: 03/15/19 09:59 Last Admin: 03/10/19 11:37 Dose: 1 applic Nystatin (Nystop Powder -) 1 applic TP TID [facility] Sodium Chloride (Normal Saline -) 1,936 ml 30 ml/kg (1936 ml) IV ONCE [facility] Last Admin: 03/10/19 01:00 Dose: 1,936 ml ASSESSMENT AND PLAN: Acute on Chronic Hypoxic Respiratory Failure UTI Septic Shock Decubitus Ulcers Atrial Fibrillation with RVR s/p PPM COPD HTN DM h/o GI Bleed h/o CVA Anemia - IV antibiotics - f/u cultures - strict isolation - IVF - off pressors, maintain MAP >65 - rate control - continue anticoagulation - O2 to keep SpO2 >90% - continue assist control - enteral feeds - continue ICU monitoring critical care time spent in reviewing chart, evaluating patient and formulating plan 35 min
[2019-03-10] MEDS: NYSTATIN POWDER 100,000 UNITS/GM - 15 GM TOPICAL POWDER TP SCH ×2 (14:11→22:03)
[2019-03-10] MEDS: METOPROLOL TARTRATE 50 MG TABLET (FP) PO SCH ×2 (14:59→22:00)
[2019-03-10] MEDS ORDERED: LACTATED RINGERS SOLUTION 1,000 ML/1,000 ML INFUS.BAG IV SCH (15:45)
--- NOTE | 2019-03-10 15:47 | PN ---
Physical Exam: SUBJECTIVE: Patient seen and examined. Remains a-fib. Trached to vent. Off pressor support. OBJECTIVE: Vital Signs Period Temp Pulse Resp BP Sys/[place]kee[place] Pulse Ox Last 24 Hr 97.9 F-102.2 F 112-157 18-26 73-137/43-92 99-100 GENERAL: alert. trached to vent HEENT: NCAT. PERRLA LUNGS: scattered rhonchi. HEART: irregularly irreg, tachy. S1S2 heard, no murmurs ABDOMEN: Soft NTND. PEG tube C/D/I RECTAL: Rectal tube in place EXTREMITIES: 1+ peripheral edema SKIN: sacral ulcer [id number] Laboratory Results - last 24 hr 03/09/19 03/09/19 03/09/19 22:19 22:19 22:19 WBC 18.3 H RBC 3.48 L Hgb 8.7 L Hct 28.8 L MCV 82.7 MCH 24.9 L MCHC 30.1 L RDW 19.6 H Plt Count 418 D MPV 10.1 Absolute Neuts (auto) 15.2 H Total Counted 100 Neutrophils % 83.3 H Neutrophils % (Manual) 77.0 Band Neutrophils % 2.0 Lymphocytes % 10.3 D Lymphocytes % (Manual) 15.0 Monocytes % 5.0 Monocytes % (Manual) 5 Eosinophils % 0.6 D Eosinophils % (Manual) 1.0 Basophils % 0.8 Basophils % (Manual) Myelocytes % (Man) Promyelocytes % (Man) Blast Cells % (Manual) Nucleated RBC % 0 Metamyelocytes Hypochromia 1+ Platelet Estimate Increased Platelet Comment No clumping noted Polychromasia 1+ Poikilocytosis Anisocytosis 1+ Microcytosis 1+ Macrocytosis PT with INR INR Anticoagulation Therapy Puncture Site ABG pH ABG pCO2 at Pt Temp ABG pO2 at Pt Temp ABG HCO3 ABG O2 Sat (Measured) ABG O2 Content ABG Base Excess Joel Test VBG pH POC VBG pCO2 POC VBG pO2 VBG HCO3 VBG O2 Sat (Dylan) VBG Base Excess Carboxyhemoglobin Methemoglobin O2 Delivery Device Oxygen Flow Rate Vent Mode Vent Rate Mechanical Rate PEEP Pressure Support Vent Sodium 148 H Potassium 5.1 Chloride 110 H Carbon Dioxide 34 H Anion Gap 5 L BUN 53.8 H Creatinine 0.9 Est GFR (CKD-EPI)AfAm 71.48 Est GFR (CKD-EPI)NonAf 61.67 POC Glucometer Random Glucose 208 H Lactic Acid 2.4 H* Calcium 8.6 Phosphorus Magnesium Total Bilirubin 0.4 AST 103 H ALT 49 Alkaline Phosphatase 345 H Troponin I 0.03 Total Protein 6.3 L Albumin 1.5 L TSH Urine Color Urine Appearance Urine pH Ur Specific Ball Urine Protein Urine Glucose (UA) Urine Ketones Urine Blood Urine Nitrite Urine Bilirubin Urine Urobilinogen Ur Leukocyte Esterase Urine WBC (Auto) Urine RBC (Auto) Urine Casts (Auto) U Pathogenic Cast Auto U Epithel Cells (Auto) Urine Bacteria (Auto) Urine Yeast (Auto) 03/09/19 03/09/19 03/10/19 22:19 23:14 00:05 WBC RBC Hgb Hct MCV MCH MCHC RDW Plt Count MPV Absolute Neuts (auto) Total Counted Neutrophils % Neutrophils % (Manual) Band Neutrophils % Lymphocytes % Lymphocytes % (Manual) Monocytes % Monocytes % (Manual) Eosinophils % Eosinophils % (Manual) Basophils % Basophils % (Manual) Myelocytes % (Man) Promyelocytes % (Man) Blast Cells % (Manual) Nucleated RBC % Metamyelocytes Hypochromia Platelet Estimate Platelet Comment Polychromasia Poikilocytosis Anisocytosis Microcytosis Macrocytosis PT with INR 19.10 H INR 1.61 H Anticoagulation Therapy Puncture Site ABG pH ABG pCO2 at Pt Temp ABG pO2 at Pt Temp ABG HCO3 ABG O2 Sat (Measured) ABG O2 Content ABG Base Excess Joel Test VBG pH 7.45 H POC VBG pCO2 49.8 POC VBG pO2 < 49 H VBG HCO3 33.6 H VBG O2 Sat (Dylan) 71.1 VBG Base Excess 8.8 H Carboxyhemoglobin Methemoglobin O2 Delivery Device Oxygen Flow Rate Vent Mode Vent Rate Mechanical Rate PEEP Pressure Support Vent Sodium Potassium Chloride Carbon Dioxide Anion Gap BUN Creatinine Est GFR (CKD-EPI)AfAm Est GFR (CKD-EPI)NonAf POC Glucometer Random Glucose Lactic Acid Calcium Phosphorus Magnesium Total Bilirubin AST ALT Alkaline Phosphatase Troponin I Total Protein Albumin TSH Urine Color Dk yellow Urine Appearance Turbid Urine pH 5.0 D Ur Specific Ball 1.025 Urine Protein 2+ H Urine Glucose (UA) Negative Urine Ketones Trace H Urine Blood 3+ H Urine Nitrite Negative Urine Bilirubin Negative Urine Urobilinogen 1.0 Ur Leukocyte Esterase 3+ H Urine WBC (Auto) 741 Urine RBC (Auto) 73 Urine Casts (Auto) 26 U Pathogenic Cast Auto Negative U Epithel Cells (Auto) 13.0 Urine Bacteria (Auto) 4955.4 Urine Yeast (Auto) Moderate 03/10/19 03/10/19 03/10/19 01:59 02:00 05:30 WBC 20.3 H RBC 3.22 L Hgb 8.0 L Hct 26.6 L MCV 82.5 MCH 25.0 L MCHC 30.3 L RDW 19.8 H Plt Count 369 MPV 9.9 Absolute Neuts (auto) 17.0 H Total Counted Neutrophils % 84.1 H Neutrophils % (Manual) 88.8 H Band Neutrophils % 0.0 Lymphocytes % 9.5 Lymphocytes % (Manual) 8.2 D Monocytes % 5.4 Monocytes % (Manual) 2 L Eosinophils % 0.6 Eosinophils % (Manual) 1.0 Basophils % 0.4 Basophils % (Manual) 0.0 Myelocytes % (Man) 0 Promyelocytes % (Man) 0 Blast Cells % (Manual) 0 Nucleated RBC % 0 Metamyelocytes 0 Hypochromia 1+ Platelet Estimate Normal Platelet Comment Polychromasia 2+ Poikilocytosis 1+ Anisocytosis 1+ Microcytosis 1+ Macrocytosis 0 PT with INR INR Anticoagulation Therapy No Result Required. Puncture Site Right radial ABG pH 7.50 H ABG pCO2 at Pt Temp 38.4 ABG pO2 at Pt Temp 161 H ABG HCO3 29.8 H ABG O2 Sat (Measured) 99.5 H ABG O2 Content 11.2 ABG Base Excess 6.4 H Joel Test Positive VBG pH POC VBG pCO2 POC VBG pO2 VBG HCO3 VBG O2 Sat (Dylan) VBG Base Excess Carboxyhemoglobin 1.4 Methemoglobin < 1.0 O2 Delivery Device Vent Oxygen Flow Rate 70% Vent Mode No Result Required. Vent Rate 18 Mechanical Rate No Result Required. PEEP 5.0 Pressure Support Vent 350 Sodium Potassium Chloride Carbon Dioxide Anion Gap BUN Creatinine Est GFR (CKD-EPI)AfAm Est GFR (CKD-EPI)NonAf POC Glucometer Random Glucose Lactic Acid 1.5 Calcium Phosphorus Magnesium Total Bilirubin AST ALT Alkaline Phosphatase Troponin I Total Protein Albumin TSH Urine Color Urine Appearance Urine pH Ur Specific Ball Urine Protein Urine Glucose (UA) Urine Ketones Urine Blood Urine Nitrite Urine Bilirubin Urine Urobilinogen Ur Leukocyte Esterase Urine WBC (Auto) Urine RBC (Auto) Urine Casts (Auto) U Pathogenic Cast Auto U Epithel Cells (Auto) Urine Bacteria (Auto) Urine Yeast (Auto) 03/10/19 03/10/19 03/10/19 06:00 06:00 06:22 WBC RBC Hgb Hct MCV MCH MCHC RDW Plt Count MPV Absolute Neuts (auto) Total Counted Neutrophils % Neutrophils % (Manual) Band Neutrophils % Lymphocytes % Lymphocytes % (Manual) Monocytes % Monocytes % (Manual) Eosinophils % Eosinophils % (Manual) Basophils % Basophils % (Manual) Myelocytes % (Man) Promyelocytes % (Man) Blast Cells % (Manual) Nucleated RBC % Metamyelocytes Hypochromia Platelet Estimate Platelet Comment Polychromasia Poikilocytosis Anisocytosis Microcytosis Macrocytosis PT with INR INR Anticoagulation Therapy Puncture Site ABG pH ABG pCO2 at Pt Temp ABG pO2 at Pt Temp ABG HCO3 ABG O2 Sat (Measured) ABG O2 Content ABG Base Excess Joel Test VBG pH POC VBG pCO2 POC VBG pO2 VBG HCO3 VBG O2 Sat (Dylan) VBG Base Excess Carboxyhemoglobin Methemoglobin O2 Delivery Device Oxygen Flow Rate Vent Mode Vent Rate Mechanical Rate PEEP Pressure Support Vent Sodium 147 H Potassium 4.5 Chloride 110 H Carbon Dioxide 33 H Anion Gap 5 L BUN 52.3 H Creatinine 1.0 Est GFR (CKD-EPI)AfAm 62.93 Est GFR (CKD-EPI)NonAf 54.30 POC Glucometer 288 Random Glucose 302 H Lactic Acid Calcium 8.1 L Phosphorus 3.1 Magnesium 2.6 H Total Bilirubin 0.4 AST 53 H ALT 41 Alkaline Phosphatase 277 H Troponin I 0.03 Total Protein 5.7 L Albumin 1.4 L TSH 2.54 Urine Color Yellow Urine Appearance Cloudy Urine pH 5.5 Ur Specific Ball 1.024 Urine Protein 2+ H Urine Glucose (UA) Negative Urine Ketones Negative Urine Blood 1+ H Urine Nitrite Negative Urine Bilirubin Negative Urine Urobilinogen 0.2 Ur Leukocyte Esterase 2+ H Urine WBC (Auto) 27 Urine RBC (Auto) 23 Urine Casts (Auto) 218 U Pathogenic Cast Auto U Epithel Cells (Auto) >36 Urine Bacteria (Auto) 10.8 Urine Yeast (Auto) 03/10/19 03/10/19 03/10/19 06:30 09:00 13:10 WBC RBC Hgb Hct MCV MCH MCHC RDW Plt Count MPV Absolute Neuts (auto) Total Counted Neutrophils % Neutrophils % (Manual) Band Neutrophils % Lymphocytes % Lymphocytes % (Manual) Monocytes % Monocytes % (Manual) Eosinophils % Eosinophils % (Manual) Basophils % Basophils % (Manual) Myelocytes % (Man) Promyelocytes % (Man) Blast Cells % (Manual) Nucleated RBC % Metamyelocytes Hypochromia Platelet Estimate Platelet Comment Polychromasia Poikilocytosis Anisocytosis Microcytosis Macrocytosis PT with INR INR Anticoagulation Therapy No Result Required. Puncture Site Left radial ABG pH 7.45 ABG pCO2 at Pt Temp 43.7 ABG pO2 at Pt Temp 83.9 ABG HCO3 29.7 H ABG O2 Sat (Measured) 96.0 ABG O2 Content 13.4 ABG Base Excess 5.5 H Joel Test Positive VBG pH POC VBG pCO2 POC VBG pO2 VBG HCO3 VBG O2 Sat (Dylan) VBG Base Excess Carboxyhemoglobin Methemoglobin O2 Delivery Device Vent Oxygen Flow Rate 50% Vent Mode A/c Vent Rate 12 Mechanical Rate Yes PEEP 5.0 Pressure Support Vent 350 Sodium Potassium Chloride Carbon Dioxide Anion Gap BUN Creatinine Est GFR (CKD-EPI)AfAm Est GFR (CKD-EPI)NonAf POC Glucometer 391 Random Glucose Lactic Acid Calcium Phosphorus Magnesium Total Bilirubin AST ALT Alkaline Phosphatase Troponin I 0.03 Total Protein Albumin TSH Urine Color Urine Appearance Urine pH Ur Specific Ball Urine Protein Urine Glucose (UA) Urine Ketones Urine Blood Urine Nitrite Urine Bilirubin Urine Urobilinogen Ur Leukocyte Esterase Urine WBC (Auto) Urine RBC (Auto) Urine Casts (Auto) U Pathogenic Cast Auto U Epithel Cells (Auto) Urine Bacteria (Auto) Urine Yeast (Auto) Active Medications Generic Name Dose Route Start Last Admin Trade Name Freq PRN Reason Stop Dose Admin Albuterol Sulfate 1 amp 03/10/19 08:41 Ventolin 0.083% Nebulizer Soln - NEB Q4H PRN SHORT OF BREATH/WHEEZING Apixaban 5 mg 03/10/19 10:00 03/10/19 11:37 Eliquis - PEG 5 mg BID [facility] Administration Atorvastatin Calcium 80 mg 03/10/19 22:00 Lipitor - PO HS [facility] Chlorhexidine Gluconate 1 applic 03/10/19 22:00 Hibiclens For Decolonization - TP HS [facility] Famotidine 20 mg 03/10/19 10:45 03/10/19 11:38 Pepcid PEG 20 mg BID [facility] Administration Fluoxetine HCl 20 mg 03/10/19 11:00 03/10/19 12:10 Prozac Oral Solution - PO 20 mg DAILY [facility] Administration Norepinephrine Bitartrate 8, 500 mls @ 18.75 mls/hr 03/10/19 05:30 03/10/19 07:03 000 mcg/ Dextrose IV 8 mcg/min TITR [facility] 30 mls/hr Titration Protocol 5 MCG/MIN Amino Acids 1,000 mls @ 42 mls/hr 03/10/19 11:00 03/10/19 14:58 Clinimix - IV 42 mls/hr Q24H [facility] Administration Ceftazidime/Avibactam 2.5 gm/ 250 mls @ 125 mls/hr 03/10/19 11:00 03/10/19 12:00 Dextrose IVPB 125 mls/hr Q8H-IV [facility] Administration Protocol Vancomycin HCl 1,000 mg in 250 mls @ 166.667 mls/hr 03/10/19 11:00 03/10/19 12:00 Vancomycin (Pre-Docked) IVPB 166.667 mls/hr Q12H [facility] Administration Protocol Insulin Aspart 1 vial 03/10/19 06:00 03/10/19 13:11 Novolog Vial Sliding Scale - SQ 10 units Q6HPO [facility] Administration Protocol Metoprolol Tartrate 75 mg 03/10/19 14:00 03/10/19 14:59 Lopressor - PO 75 mg TID [facility] Administration Metoprolol Tartrate 5 mg 03/10/19 12:55 Lopressor Injection - IVPUSH Q4H PRN HYPERTENSION Mupirocin 1 applic 03/10/19 10:00 03/10/19 11:37 Bactroban Ointment (For Decolonization) - NS 03/15/19 09:59 1 applic BID [facility] Administration Nystatin 1 applic 03/10/19 14:00 03/10/19 14:11 Nystop Powder - TP 1 applic TID [facility] Administration Sodium Chloride 1,936 ml 03/09/19 22:15 03/10/19 01:00 Normal Saline - 30 ml/kg (1936 ml) 1,936 ml IV Administration ONCE [facility] ASSESSMENT/PLAN: 79 y.o. F from [place] PMH CAD, A-fib (on eliquis), CVA (RUE/LE paralysis, non verbal) , sick sinus syndrome s/p perm pacemaker placement, chronic resp failure s/p trach, COPD, HTN, DM, GIB, chronic sacral ulcer presenting w/ sepsis 2/2 UTI #[employer] -unable to assess mentation -on prozac 20mg / daily home med #CV -A-fib: given digoxin, c/w eliquis -Lopressor 75mg TID -monitor off pressor support, maintain MAP >65 -echo 04/2108: normal EF, severe TR, mild MR -lactic acidosis resolved #Pulm -Trached to vent; 350 12 5 50% -CXR: L pulmonary pleural changes -albuterol nebs prn -Maintain O2 sats >90% #ID -Sepsis: leukocytosis, +UA, tachycardic; fever resolved -Hx + cultures: CRE in urine -F/u urine, sputum, sacral ulcer cultures for this visit -Treating empirically w/ avycaz & vanc -strict isolation precautions #Heme -normocytic anemia #Endo -ISS -BGMs ACHS #FEN -LR @75mL/ hr -trend lytes replete prn; hypoalbuminemia in setting of sepsis -clinimix @42mL/ hr #PPX -DVT: Eliquis 5mg PEG BID -GI: Pepcid 20mg PEG BID #Dispo: continue ICU monitoring Visit type - Emergency Visit Emergency Visit: Yes ED Registration Date: 03/09/19 Care time: The patient presented to the Emergency Department on the above date and was hospitalized for further evaluation of their emergent condition. - New Patient This patient is new to me today: Yes Date on this admission: 03/10/19 - Critical Care Critical Care patient: Yes Total Critical Care Time (in minutes): 36 Critical Care Statement: The care of this patient involved high complexity decision making to prevent further life threatening deterioration of the patient's condition and/or to evaluate & treat vital organ system(s) failure or risk of failure. ATTENDING PHYSICIAN STATEMENT I saw and evaluated the patient. I reviewed the resident's note and discussed the case with the resident. I agree with the resident's findings and plan as documented. SUBJECTIVE: OBJECTIVE: ASSESSMENT AND PLAN:
--- NOTE | 2019-03-10 16:54 | CONSULT ---
Consult - text type - Consultation Consultation Note: Renal consult for CONOR, and electrolyte disturbances This is a 79 year old woman wit history of Chronic Respiratory failure, CAD, Afib on eliquis, CVA (non-verbal), COPD, hypertension, DM who [place] and noted to have CONOR, hypernatremia and metabolic alkalosis. PMHx: as above Allergies: NKDA Family hx: NC Social Hx: No T/A/D ROS: unable to obtain due to clinical status Home Medications Medication Instructions Recorded Apixaban [Eliquis -] 5 mg PO BID tablet 07/26/17 Ascorbic Acid [Vitamin C -] 500 mg PO DAILY 30 Days #60 tablet 07/26/17 MDD 2 Atorvastatin Ca [Lipitor] 80 mg PO HS tablet 07/26/17 Ferrous Sulfate [Feosol] 325 mg PO DAILY@0800 ud 07/26/17 Fluoxetine HCl Liquid [Prozac 20 mg PO DAILY 04/28/18 20mg/5mL Oral Solution -] Furosemide [Lasix -] 20 mg PO BID@0600,1400 04/28/18 Metoprolol Tartrate [Lopressor -] 75 mg PO TID 04/28/18 Lisinopril [Prinivil] 10 mg PO DAILY #30 tablet MDD 1 05/02/18 Ranolazine [Ranexa -] 500 mg PO BID tab 06/30/18 Albuterol 0.083% Nebulizer Sandrita 1 amp NEB Q4H PRN amp 02/23/19 [Ventolin 0.083% Nebulizer Soln -] Apixaban [Eliquis -] 5 mg PO BID tablet 02/23/19 Furosemide [Lasix -] 20 mg PO BID@0600,1400 tablet 02/23/19 Insulin Sliding Scale [Novolog 1 vial SQ ACHS units 02/23/19 Vial Sliding Scale -] Lisinopril [Prinivil] 10 mg PEG DAILY tablet 02/23/19 Nystatin Powder [Nystop Powder -] 1 applic TP TID applic 02/23/19 Acetaminophen [Tylenol .Regular 650 mg PO Q6H PRN tablet 03/03/19 Strength -] Ferrous Sulfate [Feosol] 300 mg GT BID udc 03/03/19 Insulin (Levemir) [Levemir Vial] 10 units SQ 0700,2200 units 03/03/19 Pantoprazole Suspension [Protonix 40 mg PEG DAILY packet 03/03/19 Packets For Oral Suspension -] Sodium Hypochlorite [Dakin's 1 applic TP DAILY ml 03/03/19 Solution 0.25% (Half-Strength) -] Vital Signs Temperature 98.5 F 03/10/19 14:00 Pulse Rate 112 H 03/10/19 14:00 Respiratory Rate 17 03/10/19 16:04 Blood Pressure 113/88 03/10/19 14:00 O2 Sat by Pulse Oximetry (%) 100 03/10/19 09:00 CBC, BMP 03/10/19 05:30 03/10/19 06:00 Current Medications Albuterol Sulfate (Ventolin 0.083% Nebulizer Soln -) 1 amp NEB Q4H PRN PRN Reason: SHORT OF BREATH/WHEEZING Apixaban (Eliquis -) 5 mg PEG BID [facility] Last Admin: 03/10/19 11:37 Dose: 5 mg Atorvastatin Calcium (Lipitor -) 80 mg PO HS [facility] Chlorhexidine Gluconate (Hibiclens For Decolonization -) 1 applic TP HS [facility] Famotidine (Pepcid) 20 mg PEG BID [facility] Last Admin: 03/10/19 11:38 Dose: 20 mg Fluoxetine HCl (Prozac Oral Solution -) 20 mg PO DAILY [facility] Last Admin: 03/10/19 12:10 Dose: 20 mg Norepinephrine Bitartrate 8, (000 mcg/ Dextrose) 500 mls @ 18.75 mls/hr IV TITR [facility]; Protocol Last Titration: 03/10/19 07:03 Dose: 8 mcg/min, 30 mls/hr Amino Acids (Clinimix -) 1,000 mls @ 42 mls/hr IV Q24H [facility] Last Admin: 03/10/19 14:58 Dose: 42 mls/hr Ceftazidime/Avibactam 2.5 gm/ (Dextrose) 250 mls @ 125 mls/hr IVPB Q8H-IV [facility]; Protocol Last Admin: 03/10/19 12:00 Dose: 125 mls/hr Vancomycin HCl (Vancomycin (Pre-Docked)) 1,000 mg in 250 mls @ 166.667 mls/hr IVPB Q12H [facility]; Protocol Last Admin: 03/10/19 12:00 Dose: 166.667 mls/hr Lactated Ringer's (Lactated Ringers Solution) 1,000 ml in 1,000 mls @ 75 mls/ hr IV ASDIR [facility] Insulin Aspart (Novolog Vial Sliding Scale -) 1 vial SQ Q6HPO [facility]; Protocol Last Admin: 03/10/19 13:11 Dose: 10 units Metoprolol Tartrate (Lopressor -) 75 mg PO TID [facility] Last Admin: 03/10/19 14:59 Dose: 75 mg Metoprolol Tartrate (Lopressor Injection -) 5 mg IVPUSH Q4H PRN PRN Reason: HYPERTENSION Mupirocin (Bactroban Ointment (For Decolonization) -) 1 applic NS BID [facility] Stop: 03/15/19 09:59 Last Admin: 03/10/19 11:37 Dose: 1 applic Nystatin (Nystop Powder -) 1 applic TP TID [facility] Last Admin: 03/10/19 14:11 Dose: 1 applic Sodium Chloride (Normal Saline -) 1,936 ml 30 ml/kg (1936 ml) IV ONCE [facility] Last Admin: 03/10/19 01:00 Dose: 1,936 ml 79 year old woman wit history of Chronic Respiratory failure, CAD, Afib on eliquis, CVA (non-verbal), COPD, hypertension, DM [place] and noted to have CONOR, hypernatremia and metabolic alkalosis. 1. CONOR from volume depletion 2. Metabolic alkalosis 3. Hypernatrmeia 4. Sepsis from UTI 5. Acute on Chronic anemia Check urine studies for FeNa, UPCR, Urine Eosinophils Continue isotonic fluids with LR at 75cc per hour keep MAP > 65 continue empiric antibiotics as per ICU team Trend H/H, transfuse as per ICU team Tashi Aguirre DO
[2019-03-10] MEDS: LACTATED RINGERS SOLUTION 1,000 ML/1,000 ML INFUS.BAG IV SCH (18:15)
--- NOTE | 2019-03-10 21:51 | CON.CARD ---
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 with fever and tachycardia with HR of 150's. Spouse is at bedside and history was obtained from him and prior medical record. U/A reveals leukocyte esterase and elevated WBC with bacteria suggestive of UTI. CXR revealed small pleural effusion and patient was found to be hypotensive intially and with lactic acid. 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: CVA (with right side hemiparesis and Aphasia) Cardio/Vascular: Yes: AFIB (on anticoagulation with DOAC), CAD, HTN, Hyperlipdemia, Mitral Insufficiency (MV repair 2009 [facility]), Other (PPM) Pulmonary: Yes: COPD, Other (mechanical ventilation) Gastrointestinal: Yes: Diverticulosis, GI Bleed (recent bleed felt to be 2ndary to vascular ectasias), Other (07/19 four adenomatous tx colon polyps resected, cecal angiodysplasias seen.) Rheumatology: Yes: Other (osteoarthritis) Endocrine: Yes: Diabetes Mellitus - Past Surgical History Past Surgical History: Yes: Colonoscopy, Upper Endoscopy - Alcohol/Substance Use Hx Alcohol Use: No History of Substance Use: reports: None - Smoking History Smoking history: Former smoker Have you smoked in the past 12 months: No If you are a former smoker, when did you quit?: 2007 - Social History Usual Living Arrangement: With Spouse ADL: Support Services 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 History of Recent Travel: No Home Medications - Allergies Allergies/Adverse Reactions: Allergies Allergy/AdvReac Type Severity Reaction Status Date / Time No Known Allergies Allergy Verified 02/09/19 18:58 - Home Medications Home Medications: Ambulatory Orders Apixaban [Eliquis -] 5 mg PO BID tablet 07/26/17 Ascorbic Acid [Vitamin C -] 500 mg PO DAILY 30 Days #60 tablet MDD 2 07/26/17 Atorvastatin Ca [Lipitor] 80 mg PO HS tablet 07/26/17 Ferrous Sulfate [Feosol] 325 mg PO DAILY@0800 ud 07/26/17 Fluoxetine HCl Liquid [Prozac 20mg/5mL Oral Solution -] 20 mg PO DAILY 04/28/18 Furosemide [Lasix -] 20 mg PO BID@0600,1400 04/28/18 Metoprolol Tartrate [Lopressor -] 75 mg PO TID 04/28/18 Lisinopril [Prinivil] 10 mg PO DAILY #30 tablet MDD 1 05/02/18 Ranolazine [Ranexa -] 500 mg PO BID tab 06/30/18 Albuterol 0.083% Nebulizer Sandrita [Ventolin 0.083% Nebulizer Soln -] 1 amp NEB Q4H PRN amp 02/23/19 Apixaban [Eliquis -] 5 mg PO BID tablet 02/23/19 Furosemide [Lasix -] 20 mg PO BID@0600,1400 tablet 02/23/19 Insulin Sliding Scale [Novolog Vial Sliding Scale -] 1 vial SQ ACHS units 02/23 Lisinopril [Prinivil] 10 mg PEG DAILY tablet 02/23/19 Nystatin Powder [Nystop Powder -] 1 applic TP TID applic 02/23/19 Acetaminophen [Tylenol .Regular Strength -] 650 mg PO Q6H PRN tablet 03/03/19 Ferrous Sulfate [Feosol] 300 mg GT BID udc 03/03/19 Insulin (Levemir) [Levemir Vial] 10 units SQ 0700,2200 units 03/03/19 Pantoprazole Suspension [Protonix Packets For Oral Suspension -] 40 mg PEG DAILY packet 03/03/19 Sodium Hypochlorite [Dakin's Solution 0.25% (Half-Strength) -] 1 applic TP DAILY ml 03/03/19 Review of Systems Unable to obtain ROS, reason: Unable to obtain Vital Signs: Vital Signs Temperature 98.6 F 03/10/19 16:00 Pulse Rate 91 H 03/10/19 20:00 Respiratory Rate 03/10/19 20:53 Blood Pressure 128/75 03/10/19 20:00 O2 Sat by Pulse Oximetry (%) 100 03/10/19 20:53 Respiratory: Yes: Intubated, Mechanically Ventilated Gastrointestinal: Yes: Normal Bowel Sounds, Soft. No: Tenderness Cardiovascular: Yes: Tachycardia, Pulse Irregular JVD: No Heart Sounds: Yes: S1, S2 Edema: No - Other Data Labs, Other Data: CBC, BMP 03/10/19 05:30 03/10/19 06:00 INR, PTT INR 1.61 (0.83-1.09) H 03/10/19 00:05 Troponin, BNP 03/09/19 03/10/19 03/10/19 22:19 06:00 09:00 Troponin I 0.03 0.03 0.03 Laboratory Results - last 24 hr 03/09/19 03/09/19 03/09/19 22:19 22:19 22:19 WBC 18.3 H RBC 3.48 L Hgb 8.7 L Hct 28.8 L MCV 82.7 MCH 24.9 L MCHC 30.1 L RDW 19.6 H Plt Count 418 D MPV 10.1 Absolute Neuts (auto) 15.2 H Total Counted 100 Neutrophils % 83.3 H Neutrophils % (Manual) 77.0 Band Neutrophils % 2.0 Lymphocytes % 10.3 D Lymphocytes % (Manual) 15.0 Monocytes % 5.0 Monocytes % (Manual) 5 Eosinophils % 0.6 D Eosinophils % (Manual) 1.0 Basophils % 0.8 Basophils % (Manual) Myelocytes % (Man) Promyelocytes % (Man) Blast Cells % (Manual) Nucleated RBC % 0 Metamyelocytes Hypochromia 1+ Platelet Estimate Increased Platelet Comment No clumping noted Polychromasia 1+ Poikilocytosis Anisocytosis 1+ Microcytosis 1+ Macrocytosis PT with INR INR Anticoagulation Therapy Puncture Site ABG pH ABG pCO2 at Pt Temp ABG pO2 at Pt Temp ABG HCO3 ABG O2 Sat (Measured) ABG O2 Content ABG Base Excess Joel Test VBG pH POC VBG pCO2 POC VBG pO2 VBG HCO3 VBG O2 Sat (Dylan) VBG Base Excess Carboxyhemoglobin Methemoglobin O2 Delivery Device Oxygen Flow Rate Vent Mode Vent Rate Mechanical Rate PEEP Pressure Support Vent Sodium 148 H Potassium 5.1 Chloride 110 H Carbon Dioxide 34 H Anion Gap 5 L BUN 53.8 H Creatinine 0.9 Est GFR (CKD-EPI)AfAm 71.48 Est GFR (CKD-EPI)NonAf 61.67 POC Glucometer Random Glucose 208 H Lactic Acid 2.4 H* Calcium 8.6 Phosphorus Magnesium Total Bilirubin 0.4 AST 103 H ALT 49 Alkaline Phosphatase 345 H Troponin I 0.03 Total Protein 6.3 L Albumin 1.5 L TSH Urine Color Urine Appearance Urine pH Ur Specific [place] Urine Protein Urine Glucose (UA) Urine Ketones Urine Blood Urine Nitrite Urine Bilirubin Urine Urobilinogen Ur Leukocyte Esterase Urine WBC (Auto) Urine RBC (Auto) Urine Casts (Auto) U Pathogenic Cast Auto U Epithel Cells (Auto) Urine Bacteria (Auto) Urine Yeast (Auto) 03/09/19 03/09/19 03/10/19 22:19 23:14 00:05 WBC RBC Hgb Hct MCV MCH MCHC RDW Plt Count MPV Absolute Neuts (auto) Total Counted Neutrophils % Neutrophils % (Manual) Band Neutrophils % Lymphocytes % Lymphocytes % (Manual) Monocytes % Monocytes % (Manual) Eosinophils % Eosinophils % (Manual) Basophils % Basophils % (Manual) Myelocytes % (Man) Promyelocytes % (Man) Blast Cells % (Manual) Nucleated RBC % Metamyelocytes Hypochromia Platelet Estimate Platelet Comment Polychromasia Poikilocytosis Anisocytosis Microcytosis Macrocytosis PT with INR 19.10 H INR 1.61 H Anticoagulation Therapy Puncture Site ABG pH ABG pCO2 at Pt Temp ABG pO2 at Pt Temp ABG HCO3 ABG O2 Sat (Measured) ABG O2 Content ABG Base Excess Joel Test VBG pH 7.45 H POC VBG pCO2 49.8 POC VBG pO2 < 49 H VBG HCO3 33.6 H VBG O2 Sat (Dylan) 71.1 VBG Base Excess 8.8 H Carboxyhemoglobin Methemoglobin O2 Delivery Device Oxygen Flow Rate Vent Mode Vent Rate Mechanical Rate PEEP Pressure Support Vent Sodium Potassium Chloride Carbon Dioxide Anion Gap BUN Creatinine Est GFR (CKD-EPI)AfAm Est GFR (CKD-EPI)NonAf POC Glucometer Random Glucose Lactic Acid Calcium Phosphorus Magnesium Total Bilirubin AST ALT Alkaline Phosphatase Troponin I Total Protein Albumin TSH Urine Color Dk yellow Urine Appearance Turbid Urine pH 5.0 D Ur Specific [place] 1.025 Urine Protein 2+ H Urine Glucose (UA) Negative Urine Ketones Trace H Urine Blood 3+ H Urine Nitrite Negative Urine Bilirubin Negative Urine Urobilinogen 1.0 Ur Leukocyte Esterase 3+ H Urine WBC (Auto) 741 Urine RBC (Auto) 73 Urine Casts (Auto) 26 U Pathogenic Cast Auto Negative U Epithel Cells (Auto) 13.0 Urine Bacteria (Auto) 4955.4 Urine Yeast (Auto) Moderate 03/10/19 03/10/19 03/10/19 01:59 02:00 05:30 WBC 20.3 H RBC 3.22 L Hgb 8.0 L Hct 26.6 L MCV 82.5 MCH 25.0 L MCHC 30.3 L RDW 19.8 H Plt Count 369 MPV 9.9 Absolute Neuts (auto) 17.0 H Total Counted Neutrophils % 84.1 H Neutrophils % (Manual) 88.8 H Band Neutrophils % 0.0 Lymphocytes % 9.5 Lymphocytes % (Manual) 8.2 D Monocytes % 5.4 Monocytes % (Manual) 2 L Eosinophils % 0.6 Eosinophils % (Manual) 1.0 Basophils % 0.4 Basophils % (Manual) 0.0 Myelocytes % (Man) 0 Promyelocytes % (Man) 0 Blast Cells % (Manual) 0 Nucleated RBC % 0 Metamyelocytes 0 Hypochromia 1+ Platelet Estimate Normal Platelet Comment Polychromasia 2+ Poikilocytosis 1+ Anisocytosis 1+ Microcytosis 1+ Macrocytosis 0 PT with INR INR Anticoagulation Therapy No Result Required. Puncture Site Right radial ABG pH 7.50 H ABG pCO2 at Pt Temp 38.4 ABG pO2 at Pt Temp 161 H ABG HCO3 29.8 H ABG O2 Sat (Measured) 99.5 H ABG O2 Content 11.2 ABG Base Excess 6.4 H Joel Test Positive VBG pH POC VBG pCO2 POC VBG pO2 VBG HCO3 VBG O2 Sat (Dylan) VBG Base Excess Carboxyhemoglobin 1.4 Methemoglobin < 1.0 O2 Delivery Device Vent Oxygen Flow Rate 70% Vent Mode No Result Required. Vent Rate 18 Mechanical Rate No Result Required. PEEP 5.0 Pressure Support Vent 350 Sodium Potassium Chloride Carbon Dioxide Anion Gap BUN Creatinine Est GFR (CKD-EPI)AfAm Est GFR (CKD-EPI)NonAf POC Glucometer Random Glucose Lactic Acid 1.5 Calcium Phosphorus Magnesium Total Bilirubin AST ALT Alkaline Phosphatase Troponin I Total Protein Albumin TSH Urine Color Urine Appearance Urine pH Ur Specific [place] Urine Protein Urine Glucose (UA) Urine Ketones Urine Blood Urine Nitrite Urine Bilirubin Urine Urobilinogen Ur Leukocyte Esterase Urine WBC (Auto) Urine RBC (Auto) Urine Casts (Auto) U Pathogenic Cast Auto U Epithel Cells (Auto) Urine Bacteria (Auto) Urine Yeast (Auto) 03/10/19 03/10/19 03/10/19 06:00 06:00 06:22 WBC RBC Hgb Hct MCV MCH MCHC RDW Plt Count MPV Absolute Neuts (auto) Total Counted Neutrophils % Neutrophils % (Manual) Band Neutrophils % Lymphocytes % Lymphocytes % (Manual) Monocytes % Monocytes % (Manual) Eosinophils % Eosinophils % (Manual) Basophils % Basophils % (Manual) Myelocytes % (Man) Promyelocytes % (Man) Blast Cells % (Manual) Nucleated RBC % Metamyelocytes Hypochromia Platelet Estimate Platelet Comment Polychromasia Poikilocytosis Anisocytosis Microcytosis Macrocytosis PT with INR INR Anticoagulation Therapy Puncture Site ABG pH ABG pCO2 at Pt Temp ABG pO2 at Pt Temp ABG HCO3 ABG O2 Sat (Measured) ABG O2 Content ABG Base Excess Joel Test VBG pH POC VBG pCO2 POC VBG pO2 VBG HCO3 VBG O2 Sat (Dylan) VBG Base Excess Carboxyhemoglobin Methemoglobin O2 Delivery Device Oxygen Flow Rate Vent Mode Vent Rate Mechanical Rate PEEP Pressure Support Vent Sodium 147 H Potassium 4.5 Chloride 110 H Carbon Dioxide 33 H Anion Gap 5 L BUN 52.3 H Creatinine 1.0 Est GFR (CKD-EPI)AfAm 62.93 Est GFR (CKD-EPI)NonAf 54.30 POC Glucometer 288 Random Glucose 302 H Lactic Acid Calcium 8.1 L Phosphorus 3.1 Magnesium 2.6 H Total Bilirubin 0.4 AST 53 H ALT 41 Alkaline Phosphatase 277 H Troponin I 0.03 Total Protein 5.7 L Albumin 1.4 L TSH 2.54 Urine Color Yellow Urine Appearance Cloudy Urine pH 5.5 Ur Specific [place] 1.024 Urine Protein 2+ H Urine Glucose (UA) Negative Urine Ketones Negative Urine Blood 1+ H Urine Nitrite Negative Urine Bilirubin Negative Urine Urobilinogen 0.2 Ur Leukocyte Esterase 2+ H Urine WBC (Auto) 27 Urine RBC (Auto) 23 Urine Casts (Auto) 218 U Pathogenic Cast Auto None U Epithel Cells (Auto) >36 Urine Bacteria (Auto) 10.8 Urine Yeast (Auto) 03/10/19 03/10/19 03/10/19 06:30 09:00 13:10 WBC RBC Hgb Hct MCV MCH MCHC RDW Plt Count MPV Absolute Neuts (auto) Total Counted Neutrophils % Neutrophils % (Manual) Band Neutrophils % Lymphocytes % Lymphocytes % (Manual) Monocytes % Monocytes % (Manual) Eosinophils % Eosinophils % (Manual) Basophils % Basophils % (Manual) Myelocytes % (Man) Promyelocytes % (Man) Blast Cells % (Manual) Nucleated RBC % Metamyelocytes Hypochromia Platelet Estimate Platelet Comment Polychromasia Poikilocytosis Anisocytosis Microcytosis Macrocytosis PT with INR INR Anticoagulation Therapy No Result Required. Puncture Site Left radial ABG pH 7.45 ABG pCO2 at Pt Temp 43.7 ABG pO2 at Pt Temp 83.9 ABG HCO3 29.7 H ABG O2 Sat (Measured) 96.0 ABG O2 Content 13.4 ABG Base Excess 5.5 H Joel Test Positive VBG pH POC VBG pCO2 POC VBG pO2 VBG HCO3 VBG O2 Sat (Dylan) VBG Base Excess Carboxyhemoglobin Methemoglobin O2 Delivery Device Vent Oxygen Flow Rate 50% Vent Mode A/c Vent Rate 12 Mechanical Rate Yes PEEP 5.0 Pressure Support Vent 350 Sodium Potassium Chloride Carbon Dioxide Anion Gap BUN Creatinine Est GFR (CKD-EPI)AfAm Est GFR (CKD-EPI)NonAf POC Glucometer 391 Random Glucose Lactic Acid Calcium Phosphorus Magnesium Total Bilirubin AST ALT Alkaline Phosphatase Troponin I 0.03 Total Protein Albumin TSH Urine Color Urine Appearance Urine pH Ur Specific [place] Urine Protein Urine Glucose (UA) Urine Ketones Urine Blood Urine Nitrite Urine Bilirubin Urine Urobilinogen Ur Leukocyte Esterase Urine WBC (Auto) Urine RBC (Auto) Urine Casts (Auto) U Pathogenic Cast Auto U Epithel Cells (Auto) Urine Bacteria (Auto) Urine Yeast (Auto) Atrial fibrillation with RVR Echo: Report Reviewed (Normal LVEF, pulmonary HTN (Apr 2018)) Imaging - Results Chest X-ray: Report Reviewed (Bibasilar pleural effusion) EKG: Report Reviewed Problem List - Problems (1) Atrial fibrillation with RVR Code(s): I48.91 - UNSPECIFIED ATRIAL FIBRILLATION (2) CHF (congestive heart failure) Code(s): I50.9 - HEART FAILURE, UNSPECIFIED (3) Hypernatremia Code(s): E87.0 - HYPEROSMOLALITY AND HYPERNATREMIA (4) Anemia Code(s): D64.9 - ANEMIA, UNSPECIFIED Qualifiers: Anemia type: unspecified type Qualified Code(s): D64.9 - Anemia, unspecified (5) CAD (coronary artery disease) Code(s): I25.10 - ATHSCL HEART DISEASE OF [place] CORONARY ARTERY W/O ANG PCTRS Qualifiers: Coronary Disease-Associated Artery/Lesion type: [place] artery [place] vs. transplanted heart: [place] heart Associated angina: without angina Qualified Code(s): I25.10 - Atherosclerotic heart disease of [place] coronary artery without angina pectoris (6) CKD (chronic kidney disease) Code(s): N18.9 - CHRONIC KIDNEY DISEASE, UNSPECIFIED Qualifiers: Chronic kidney disease stage: stage 2 (mild) Qualified Code(s): N18.2 - Chronic kidney disease, stage 2 (mild) (7) CVA (cerebral vascular accident) Code(s): I63.9 - CEREBRAL INFARCTION, UNSPECIFIED Qualifiers: CVA mechanism: embolism (8) Diabetes mellitus Code(s): E11.9 - TYPE 2 DIABETES MELLITUS WITHOUT COMPLICATIONS Qualifiers: Diabetes mellitus type: type 2 (9) Diastolic dysfunction Code(s): I51.89 - OTHER ILL-DEFINED HEART DISEASES (10) Pleural effusion Code(s): J90 - PLEURAL EFFUSION, NOT ELSEWHERE CLASSIFIED (11) S/P mitral valve repair Code(s): Z98.890 - OTHER SPECIFIED POSTPROCEDURAL STATES (12) Sepsis Code(s): A41.9 - SEPSIS, UNSPECIFIED ORGANISM Qualifiers: Sepsis type: sepsis due to unspecified organism Sepsis acute organ dysfunction status: without acute organ dysfunction Qualified Code(s): A41.9 - Sepsis, unspecified organism (13) Severe pulmonary arterial systolic hypertension Code(s): I27.21 - SECONDARY PULMONARY ARTERIAL HYPERTENSION (14) Sick sinus syndrome Code(s): I49.5 - SICK SINUS SYNDROME (15) UTI (urinary tract infection) Code(s): N39.0 - URINARY TRACT INFECTION, SITE NOT SPECIFIED Qualifiers: Urinary tract infection type: acute cystitis Hematuria presence: with hematuria Qualified Code(s): N30.01 - Acute cystitis with hematuria (16) Ventilator dependent Code(s): Z99.11 - DEPENDENCE ON RESPIRATOR [VENTILATOR] STATUS (17) COPD (chronic obstructive pulmonary disease) Code(s): J44.9 - CHRONIC OBSTRUCTIVE PULMONARY DISEASE, UNSPECIFIED (18) HTN (hypertension) Code(s): I10 - ESSENTIAL (PRIMARY) HYPERTENSION Qualifiers: Hypertension type: essential hypertension Qualified Code(s): I10 - Essential (primary) hypertension (19) Hyperlipidemia Code(s): E78.5 - HYPERLIPIDEMIA, UNSPECIFIED Qualifiers: Hyperlipidemia type: pure hypercholesterolemia Qualified Code(s): E78.00 - Pure hypercholesterolemia, unspecified; E78.0 - Pure hypercholesterolemia (20) Pacemaker Code(s): Z95.0 - PRESENCE OF CARDIAC PACEMAKER Assessment/Plan 1. Clinical presentation suggests sepsis/septic shock due to source with UTI 2. Acute on chronic diastolic failure 3. Respiratory failure (chronic) on mechanical ventilation s/p trache and PEG 4. CAD, angina pectoris 5. Permanent AF [id number] score of 9 on DOAC 6. Sick sinus syndrome s/p PPM 7. Post mitral valve repair 8. History of HTN 9. Hypercholesterolemia 10. COPD 11. CKD 12. Anemia 13. History of CVA PLAN: 1. Antibiotic coverage 2. Metoprolol to control HR via PEG and then additional IV Lopressor for added rate control as BP tolerates 3. Eliquis 5 mg BID 4. Continue vent support 5. Off Pressor Further plans are to follow. Guarded George Carlson MD
[2019-03-10] MEDS: CHLORHEXIDINE GLUCONATE 4% CLEANSER FOR DECOLONIZATION TP SCH (21:57)
[2019-03-10] MEDS: ATORVASTATIN CA 80 MG TABLET (FP) PO SCH (22:00)
[2019-03-11] MEDS: INSULIN SLIDING SCALE (NOVOLOG) 1 VIAL SQ SCH ×4 (00:16→16:59)
[2019-03-11] MEDS: CEFTAZIDIME/AVIBACTAM 2.5 GM in DEXTROSE 5%-WATER - 250 ML IVPB SCH ×3 (01:10→17:47)
[2019-03-11] MEDS: METOPROLOL TARTRATE 50 MG TABLET (FP) PO SCH ×3 (06:07→21:56)
[2019-03-11] MEDS: NOREPINEPHRINE BITARTRATE 8,000 MCG in DEXTROSE 5%-WATER - 492 ML IV SCH (06:36)
[2019-03-11] MEDS: NYSTATIN POWDER 100,000 UNITS/GM - 15 GM TOPICAL POWDER TP SCH ×3 (06:36→21:55)
[2019-03-11 07:02] LABS: HEMATOCRIT 26.5 % (32.4-45.2); HEMOGLOBIN 8.1 GM/dL (10.7-15.3); MCH 25.1 pg (25.7-33.7); MCHC 30.4 g/dl (32.0-36.0); MEAN CELL VOLUME 82.5 fl (80-96); MEAN PLT VOLUME 9.9 fl (7.5-11.1); PLATELET COUNT 355 K/MM3 (134-434); RBC 3.22 M/mm3 (3.60-5.2); RDW 19.1 % (11.6-15.6); WHITE BLOOD COUNT 13.6 K/mm3 (4.0-10.0)
[2019-03-11 07:36] LABS: ALBUMIN 1.3 g/dl (3.4-5.0); BILIRUBIN,TOTAL 0.3 mg/dL (0.2-1); BLOOD UREA NITROGEN 44.7 mg/dL (7-18); CALCIUM 8.3 mg/dL (8.5-10.1); CREATININE 0.8 mg/dL (0.55-1.3); MAGNESIUM 2.4 mg/dL (1.8-2.4); PHOSPHOROUS 2.9 mg/dL (2.5-4.9); POTASSIUM 3.7 mmol/L (3.5-5.1); TOT PROT 5.3 g/dl (6.4-8.2)
--- NOTE | 2019-03-11 09:10 | PN ---
Progress Note, Physician - Current Medication List Current Medications: Active Medications Albumin Human (Albumin Human 25%) 12.5 gm IVPB BID [facility] Stop: 03/12/19 22:01 Albuterol Sulfate (Ventolin 0.083% Nebulizer Soln -) 1 amp NEB Q4H PRN PRN Reason: SHORT OF BREATH/WHEEZING Apixaban (Eliquis -) 5 mg PEG BID [facility] Last Admin: 03/10/19 22:00 Dose: 5 mg Atorvastatin Calcium (Lipitor -) 80 mg PO HS [facility] Last Admin: 03/10/19 22:00 Dose: 80 mg Chlorhexidine Gluconate (Hibiclens For Decolonization -) 1 applic TP HS [facility] Last Admin: 03/10/19 21:57 Dose: 1 applic Famotidine (Pepcid) 20 mg PEG BID [facility] Last Admin: 03/10/19 22:02 Dose: 20 mg Fluoxetine HCl (Prozac Oral Solution -) 20 mg PO DAILY [facility] Last Admin: 03/10/19 12:10 Dose: 20 mg Furosemide (Lasix Injection -) 20 mg IVPUSH BID@0600,1400 [facility] Norepinephrine Bitartrate 8, (000 mcg/ Dextrose) 500 mls @ 18.75 mls/hr IV TITR [facility]; Protocol Last Admin: 03/11/19 06:36 Dose: Not Given Ceftazidime/Avibactam 2.5 gm/ (Dextrose) 250 mls @ 125 mls/hr IVPB Q8H-IV [facility]; Protocol Last Admin: 03/11/19 01:10 Dose: 125 mls/hr Vancomycin HCl (Vancomycin (Pre-Docked)) 1,000 mg in 250 mls @ 166.667 mls/hr IVPB Q12H [facility]; Protocol Last Admin: 03/10/19 22:03 Dose: 166.667 mls/hr Lactated Ringer's (Lactated Ringers Solution) 1,000 ml in 1,000 mls @ 75 mls/ hr IV ASDIR [facility] Last Admin: 03/10/19 18:15 Dose: 75 mls/hr Insulin Aspart (Novolog Vial Sliding Scale -) 1 vial SQ Q6HPO [facility]; Protocol Last Admin: 03/11/19 06:30 Dose: 6 units Metoprolol Tartrate (Lopressor -) 75 mg PO TID [facility] Last Admin: 03/11/19 06:07 Dose: 75 mg Metoprolol Tartrate (Lopressor Injection -) 5 mg IVPUSH Q4H PRN PRN Reason: HYPERTENSION Mupirocin (Bactroban Ointment (For Decolonization) -) 1 applic NS BID [facility] Stop: 03/15/19 09:59 Last Admin: 03/10/19 22:02 Dose: 1 applic Nystatin (Nystop Powder -) 1 applic TP TID [facility] Last Admin: 03/11/19 06:36 Dose: 1 applic Sodium Chloride (Normal Saline -) 1,936 ml 30 ml/kg (1936 ml) IV ONCE [facility] Last Admin: 03/10/19 22:03 Dose: Not Given - Objective Vital Signs: Vital Signs Temperature 97.9 F 03/11/19 06:00 Pulse Rate 106 H 03/11/19 06:00 Respiratory Rate 16 03/11/19 08:31 Blood Pressure 105/68 03/11/19 06:00 O2 Sat by Pulse Oximetry (%) 100 03/10/19 20:53 Cardiovascular: Yes: Tachycardia, S1, S2 Respiratory: Yes: Mechanically Ventilated, Rales Gastrointestinal: Yes: Normal Bowel Sounds, Soft, Other (peg) Labs: CBC, BMP 03/11/19 05:25 03/11/19 05:25 INR, PTT INR 1.61 (0.83-1.09) H 03/10/19 00:05 Problem List - Problems (1) Sepsis Assessment/Plan: CULTURES IV ABX--ZOSYN-VANCO ID CONSULT PRESSERS TO MAINTAIN BP FLUIDS Code(s): A41.9 - SEPSIS, UNSPECIFIED ORGANISM Qualifiers: Sepsis type: sepsis due to unspecified organism Sepsis acute organ dysfunction status: without acute organ dysfunction Qualified Code(s): A41.9 - Sepsis, unspecified organism (2) CHF (congestive heart failure) Assessment/Plan: DUE TO SEPSIS-LOW ALBUMIN cxr + congestion--Trial of albumin and lasix since alb 1.3 REUME FEEDINGS MONITOR dc clinimex Code(s): I50.9 - HEART FAILURE, UNSPECIFIED (3) Atrial fibrillation with RVR Assessment/Plan: on metoprolol MONITOR RATE ON AC Code(s): I48.91 - UNSPECIFIED ATRIAL FIBRILLATION (4) Acute and chronic respiratory failure Assessment/Plan: ICU MONITORING PULM CONSULT VENT SETTINGS ORDERED Code(s): J96.20 - ACUTE AND CHR RESP FAILURE, UNSP W HYPOXIA OR HYPERCAPNIA
[2019-03-11] MEDS ORDERED: PT OWN MED DRAWER 7, Y5N ONE ×3 (09:50→21:58)
[2019-03-11] MEDS: APIXABAN 5 MG TABLET PEG SCH ×2 (10:45→21:56)
[2019-03-11] MEDS: FLUoxetine HCL 20 MG/5 ML 120 BOTTLE PO SCH (10:45)
[2019-03-11] MEDS: FAMOTIDINE 40 MG/5 ML ORAL SUSPENSION PEG SCH ×2 (10:45→21:56)
[2019-03-11] MEDS: ALBUMIN HUMAN 25% 12.5 GM/50 ML VIAL IVPB SCH ×2 (11:00→21:59)
[2019-03-11] MEDS: MUPIROCIN 2% TOPICAL OINTMENT FOR DECOLONIZATION NS SCH ×2 (11:31→21:55)
[2019-03-11] MEDS: FUROSEMIDE 40 MG/4 ML INJECTABLE VIAL IVPUSH SCH ×2 (11:33→21:56)
[2019-03-11] MEDS: VANCOMYCIN 1 GRAM (PRE-DOCKED) 1,000 MG/250 ML BAG IVPB SCH ×2 (11:33→22:00)
--- NOTE | 2019-03-11 12:08 | PN ---
Progress Note, Physician History of Present Illness: Afebrile, WBC lower. Rate-controlled afib, nonverbal. - Current Medication List Current Medications: Active Medications Albumin Human (Albumin Human 25%) 12.5 gm IVPB BID [facility] Stop: 03/12/19 22:01 Last Admin: 03/11/19 11:00 Dose: 12.5 gm Albuterol Sulfate (Ventolin 0.083% Nebulizer Soln -) 1 amp NEB Q4H PRN PRN Reason: SHORT OF BREATH/WHEEZING Apixaban (Eliquis -) 5 mg PEG BID [facility] Last Admin: 03/11/19 10:45 Dose: 5 mg Atorvastatin Calcium (Lipitor -) 80 mg PO HS [facility] Last Admin: 03/10/19 22:00 Dose: 80 mg Chlorhexidine Gluconate (Hibiclens For Decolonization -) 1 applic TP HS [facility] Last Admin: 03/10/19 21:57 Dose: 1 applic Famotidine (Pepcid) 20 mg PEG BID [facility] Last Admin: 03/11/19 10:45 Dose: 20 mg Fluoxetine HCl (Prozac Oral Solution -) 20 mg PO DAILY [facility] Last Admin: 03/11/19 10:45 Dose: 20 mg Furosemide (Lasix Injection -) 20 mg IVPUSH BID@1030,2230 [facility] Stop: 03/12/19 22:31 Last Admin: 03/11/19 11:33 Dose: 20 mg Norepinephrine Bitartrate 8, (000 mcg/ Dextrose) 500 mls @ 18.75 mls/hr IV TITR [facility]; Protocol Last Admin: 03/11/19 06:36 Dose: Not Given Ceftazidime/Avibactam 2.5 gm/ (Dextrose) 250 mls @ 125 mls/hr IVPB Q8H-IV [facility]; Protocol Last Admin: 03/11/19 10:45 Dose: 125 mls/hr Vancomycin HCl (Vancomycin (Pre-Docked)) 1,000 mg in 250 mls @ 166.667 mls/hr IVPB Q12H [facility]; Protocol Last Admin: 03/11/19 11:33 Dose: 166.667 mls/hr Lactated Ringer's (Lactated Ringers Solution) 1,000 ml in 1,000 mls @ 75 mls/ hr IV ASDIR [facility] Last Admin: 01/07/20 18:15 Dose: 75 mls/hr Insulin Aspart (Novolog Vial Sliding Scale -) 1 vial SQ Q6HPO [facility]; Protocol Last Admin: 03/11/19 06:30 Dose: 6 units Metoprolol Tartrate (Lopressor -) 75 mg PO TID [facility] Last Admin: 03/11/19 06:07 Dose: 75 mg Metoprolol Tartrate (Lopressor Injection -) 5 mg IVPUSH Q4H PRN PRN Reason: HYPERTENSION Mupirocin (Bactroban Ointment (For Decolonization) -) 1 applic NS BID [facility] Stop: 03/15/19 09:59 Last Admin: 03/11/19 11:31 Dose: 1 applic Nystatin (Nystop Powder -) 1 applic TP TID [facility] Last Admin: 03/11/19 06:36 Dose: 1 applic Sodium Chloride (Normal Saline -) 1,936 ml 30 ml/kg (1936 ml) IV ONCE [facility] Last Admin: 03/10/19 22:03 Dose: Not Given - Objective Vital Signs: Vital Signs Temperature 97.8 F 03/11/19 10:00 Pulse Rate 86 03/11/19 10:00 Respiratory Rate 16 03/11/19 08:31 Blood Pressure 118/78 03/11/19 10:00 O2 Sat by Pulse Oximetry (%) 100 03/11/19 09:00 Neck: Yes: Other (Tracheostomy) Cardiovascular: Yes: Pulse Irregular Respiratory: Yes: Mechanically Ventilated, Rhonchi Gastrointestinal: Yes: Soft, Hypoactive Bowel Sounds Edema: Yes Edema: LLE: Trace, RLE: Trace Labs: CBC, BMP 03/11/19 05:25 03/11/19 05:25 INR, PTT INR 1.61 (0.83-1.09) H 03/10/19 00:05 Problem List - Problems (1) Bacteremia Code(s): R78.81 - BACTEREMIA (2) Atrial fibrillation with RVR Code(s): I48.91 - UNSPECIFIED ATRIAL FIBRILLATION (3) Angiodysplasia of colon with hemorrhage Code(s): K55.21 - ANGIODYSPLASIA OF COLON WITH HEMORRHAGE (4) CAD (coronary artery disease) Code(s): I25.10 - ATHSCL HEART DISEASE OF [place] CORONARY ARTERY W/O ANG PCTRS Qualifiers: Coronary Disease-Associated Artery/Lesion type: [place] artery [place] vs. transplanted heart: [place] heart Associated angina: without angina Qualified Code(s): I25.10 - Atherosclerotic heart disease of [place] coronary artery without angina pectoris (5) CVA (cerebral vascular accident) Code(s): I63.9 - CEREBRAL INFARCTION, UNSPECIFIED Qualifiers: CVA mechanism: unspecified Qualified Code(s): I63.9 - Cerebral infarction, unspecified (6) Diabetes mellitus Code(s): E11.9 - TYPE 2 DIABETES MELLITUS WITHOUT COMPLICATIONS Qualifiers: Diabetes mellitus type: type 2 (7) Diastolic dysfunction Code(s): I51.89 - OTHER ILL-DEFINED HEART DISEASES (8) S/P mitral valve repair Code(s): Z98.890 - OTHER SPECIFIED POSTPROCEDURAL STATES (9) Sick sinus syndrome Code(s): I49.5 - SICK SINUS SYNDROME (10) Stage 4 skin ulcer of sacral region Code(s): L98.429 - NON-PRESSURE CHRONIC ULCER OF BACK WITH UNSPECIFIED SEVERITY (11) Tracheostomy care Code(s): Z43.0 - ENCOUNTER FOR ATTENTION TO TRACHEOSTOMY (12) UTI (urinary tract infection) Code(s): N39.0 - URINARY TRACT INFECTION, SITE NOT SPECIFIED Qualifiers: Urinary tract infection type: acute cystitis Hematuria presence: with hematuria Qualified Code(s): N30.01 - Acute cystitis with hematuria (13) Ventilator dependent Code(s): Z99.11 - DEPENDENCE ON RESPIRATOR [VENTILATOR] STATUS Assessment/Plan 02/18/2019 EGD revealing mild patchy antral erythema otherwise unremarkable. No obvious ulcers or angioectasias seen 04/30/2018 Echo: Normal LV size and fxn, severe TR RVSP 50-60 mmHg, mild MR EGD and colonoscopy in 07/2017 revealing gastritis, cecal AVM and four tubular adenomas 12/17/2016 reveal: 03/2009 acute systolic CHF and MN, R&LHc 90% distal OM1, 60% D1, preserved LV fxn, elevated LVEDP BULMARO severe posterior leaflet prolapse with severe MR->MV annuloplasty repair, afib, sinus arrest->PPM, CAD left alone. [facility] Echo: 06/28/16 normal biventricular fxn, COSMO, mod TR, MV ring Nuc stress 09/13/2016 Anterolateral ischemia/infarct SDS 3 EF 82%, abnl ecg changes 1. Clinical presentation suggests sepsis/septic shock due to source with UTI with GPC bacteremia 2. Acute on chronic diastolic failure 3. Respiratory failure (chronic) on mechanical ventilation s/p tracheostomy and PEG 4. CAD, angina pectoris 5. Permanent AF [id number] score of 9 on DOAC 6. Sick sinus syndrome s/p PPM 7. Post mitral valve repair 8. History of HTN 9. Hypercholesterolemia 10. COPD 11. CKD 12. Anemia h/o GI Bleed 13. History of CVA 14. Sacral decubitus ulcer PLAN: 1. Antibiotic coverage per C&S 2. Metoprolol 75 tid to control HR via PEG and then additional IV Lopressor for added rate control as BP tolerates 3. Eliquis 5 mg BID, Lipitor 80 qd 4. Continue vent support O2 to keep SpO2 >90% 5. Off Pressor 6. Enteral feeds 7. DVT/GI prophylaxis 8. IV diuresis to keep even
--- NOTE | 2019-03-11 12:09 | PN ---
Teaching Attending Note Name of Resident: Buffy Delong ATTENDING PHYSICIAN STATEMENT I saw and evaluated the patient. I reviewed the resident's note and discussed the case with the resident. I agree with the resident's findings and plan as documented. SUBJECTIVE: Pt seen and examined in the ICU. Vented, awake. Heart rates better controlled. No further fevers. OBJECTIVE: Vital Signs Period Temp Pulse Resp BP Sys/[place] Pulse Ox Last 24 Hr 97.8 F-98.6 F 78-142 16-20 82-128/24-88 100-100 Intake & Output 03/08/19 03/09/19 03/10/19 03/11/19 23:59 23:59 23:59 23:59 Intake Total 4018 2104 Output Total 1260 200 Balance 2758 1904 Weight 64.54 kg 63.957 kg 65 kg Gen: vented, awake Heart: irregular Lung: decreased breath sounds at the bases Abd: soft, nontender Ext: + edema +sacral ulcer CBC, BMP 03/11/19 05:25 03/11/19 05:25 Active Medications Albumin Human (Albumin Human 25%) 12.5 gm IVPB BID [facility] Stop: 03/12/19 22:01 Last Admin: 03/11/19 11:00 Dose: 12.5 gm Albuterol Sulfate (Ventolin 0.083% Nebulizer Soln -) 1 amp NEB Q4H PRN PRN Reason: SHORT OF BREATH/WHEEZING Apixaban (Eliquis -) 5 mg PEG BID [facility] Last Admin: 03/11/19 10:45 Dose: 5 mg Atorvastatin Calcium (Lipitor -) 80 mg PO [facility] Last Admin: 03/10/19 22:00 Dose: 80 mg Chlorhexidine Gluconate (Hibiclens For Decolonization -) 1 applic TP [facility] Last Admin: 03/10/19 21:57 Dose: 1 applic Famotidine (Pepcid) 20 mg PEG BID [facility] Last Admin: 03/11/19 10:45 Dose: 20 mg Fluoxetine HCl (Prozac Oral Solution -) 20 mg PO DAILY [facility] Last Admin: 03/11/19 10:45 Dose: 20 mg Furosemide (Lasix Injection -) 20 mg IVPUSH BID@1030,2230 [facility] Stop: 03/12/19 22:31 Last Admin: 03/11/19 11:33 Dose: 20 mg Norepinephrine Bitartrate 8, (000 mcg/ Dextrose) 500 mls @ 18.75 mls/hr IV TITR [facility]; Protocol Last Admin: 03/11/19 06:36 Dose: Not Given Ceftazidime/Avibactam 2.5 gm/ (Dextrose) 250 mls @ 125 mls/hr IVPB Q8H-IV [facility]; Protocol Last Admin: 03/11/19 10:45 Dose: 125 mls/hr Vancomycin HCl (Vancomycin (Pre-Docked)) 1,000 mg in 250 mls @ 166.667 mls/hr IVPB Q12H [facility]; Protocol Last Admin: 03/11/19 11:33 Dose: 166.667 mls/hr Lactated Ringer's (Lactated Ringers Solution) 1,000 ml in 1,000 mls @ 75 mls/ hr IV ASDIR [facility] Last Admin: 03/10/19 18:15 Dose: 75 mls/hr Insulin Aspart (Novolog Vial Sliding Scale -) 1 vial SQ Q6HPO [facility]; Protocol Last Admin: 03/11/19 06:30 Dose: 6 units Metoprolol Tartrate (Lopressor -) 75 mg PO TID [facility] Last Admin: 03/11/19 06:07 Dose: 75 mg Metoprolol Tartrate (Lopressor Injection -) 5 mg IVPUSH Q4H PRN PRN Reason: HYPERTENSION Mupirocin (Bactroban Ointment (For Decolonization) -) 1 applic NS BID [facility] Stop: 03/15/19 09:59 Last Admin: 03/11/19 11:31 Dose: 1 applic Nystatin (Nystop Powder -) 1 applic TP TID [facility] Last Admin: 03/11/19 06:36 Dose: 1 applic Sodium Chloride (Normal Saline -) 1,936 ml 30 ml/kg (1936 ml) IV ONCE [facility] Last Admin: 03/10/19 22:03 Dose: Not Given ASSESSMENT AND PLAN: Acute on Chronic Hypoxic Respiratory Failure UTI Gram Positive Bacteremia Decubitus Ulcers Septic Shock Atrial Fibrillation with RVR s/p PPM COPD HTN DM h/o GI Bleed h/o CVA Anemia - continue antibiotics - f/u cultures - strict isolation - off pressors, maintain MAP >65 - rate control - continue anticoagulation - O2 to keep SpO2 >90% - continue assist control - enteral feeds - DVT/GI prophylaxis - can monitor on vent floor
--- NOTE | 2019-03-11 12:16 | PN ---
Progress Note, Physician History of Present Illness: AWAKE, NON VERBAL TEMPS DOWN AFEBRILE WBC IMPROVED BC GPCC SPUTUM, URINE , WOUND C/S MIXED - Current Medication List Current Medications: Active Medications Albumin Human (Albumin Human 25%) 12.5 gm IVPB BID [facility] Stop: 03/12/19 22:01 Last Admin: 03/11/19 11:00 Dose: 12.5 gm Albuterol Sulfate (Ventolin 0.083% Nebulizer Soln -) 1 amp NEB Q4H PRN PRN Reason: SHORT OF BREATH/WHEEZING Apixaban (Eliquis -) 5 mg PEG BID [facility] Last Admin: 03/11/19 10:45 Dose: 5 mg Atorvastatin Calcium (Lipitor -) 80 mg PO HS [facility] Last Admin: 03/10/19 22:00 Dose: 80 mg Chlorhexidine Gluconate (Hibiclens For Decolonization -) 1 applic TP HS [facility] Last Admin: 03/10/19 21:57 Dose: 1 applic Famotidine (Pepcid) 20 mg PEG BID [facility] Last Admin: 03/11/19 10:45 Dose: 20 mg Fluoxetine HCl (Prozac Oral Solution -) 20 mg PO DAILY [facility] Last Admin: 03/11/19 10:45 Dose: 20 mg Furosemide (Lasix Injection -) 20 mg IVPUSH BID@1030,2230 [facility] Stop: 03/12/19 22:31 Last Admin: 03/11/19 11:33 Dose: 20 mg Norepinephrine Bitartrate 8, (000 mcg/ Dextrose) 500 mls @ 18.75 mls/hr IV TITR [facility]; Protocol Last Admin: 03/11/19 06:36 Dose: Not Given Ceftazidime/Avibactam 2.5 gm/ (Dextrose) 250 mls @ 125 mls/hr IVPB Q8H-IV [facility]; Protocol Last Admin: 03/11/19 10:45 Dose: 125 mls/hr Vancomycin HCl (Vancomycin (Pre-Docked)) 1,000 mg in 250 mls @ 166.667 mls/hr IVPB Q12H [facility]; Protocol Last Admin: 03/11/19 11:33 Dose: 166.667 mls/hr Lactated Ringer's (Lactated Ringers Solution) 1,000 ml in 1,000 mls @ 75 mls/ hr IV ASDIR [facility] Last Admin: 03/10/19 18:15 Dose: 75 mls/hr Insulin Aspart (Novolog Vial Sliding Scale -) 1 vial SQ Q6HPO [facility]; Protocol Last Admin: 03/11/19 06:30 Dose: 6 units Metoprolol Tartrate (Lopressor -) 75 mg PO TID [facility] Last Admin: 03/11/19 06:07 Dose: 75 mg Metoprolol Tartrate (Lopressor Injection -) 5 mg IVPUSH Q4H PRN PRN Reason: HYPERTENSION Mupirocin (Bactroban Ointment (For Decolonization) -) 1 applic NS BID [facility] Stop: 03/15/19 09:59 Last Admin: 03/11/19 11:31 Dose: 1 applic Nystatin (Nystop Powder -) 1 applic TP TID [facility] Last Admin: 03/11/19 06:36 Dose: 1 applic Sodium Chloride (Normal Saline -) 1,936 ml 30 ml/kg (1936 ml) IV ONCE [facility] Last Admin: 03/10/19 22:03 Dose: Not Given - Objective Vital Signs: Vital Signs Temperature 97.8 F 03/11/19 10:00 Pulse Rate 86 03/11/19 10:00 Respiratory Rate 16 03/11/19 08:31 Blood Pressure 118/78 03/11/19 10:00 O2 Sat by Pulse Oximetry (%) 100 03/11/19 09:00 Constitutional: Yes: No Distress Eyes: Yes: Conjunctiva Clear Cardiovascular: Yes: Regular Rate and Rhythm, S1, S2 Respiratory: Yes: Diminished Gastrointestinal: Yes: Normal Bowel Sounds, Soft. No: Tenderness Edema: Yes Labs: CBC, BMP 03/11/19 05:25 03/11/19 05:25 INR, PTT INR 1.61 (0.83-1.09) H 03/10/19 00:05 Assessment/Plan SEPSIS/ SEPTIC SHOCK UTI SACRAL DECUBITUS ULCER LACTIC ACIDOSIS DM CHRONIC RESP FAILURE HX CRE AWAIT BC CONTINUE EMPIRIC VANCOMYCIN / AVYCAZ CONTACT PRECAUTIONS
[2019-03-11] MEDS: LACTATED RINGERS SOLUTION 1,000 ML/1,000 ML INFUS.BAG IV SCH (15:10)
--- NOTE | 2019-03-11 15:47 | PN ---
Progress Note (short form) - Note Progress Note: Renal follow up for CONOR Seen and examined at the bedside on vent via trach no overnight events making urine Vital Signs Temperature 97.9 F 03/11/19 14:00 Pulse Rate 82 03/11/19 14:00 Respiratory Rate 18 03/11/19 13:00 Blood Pressure 100/84 03/11/19 14:00 O2 Sat by Pulse Oximetry (%) 100 03/11/19 09:00 Intake & Output 03/08/19 03/09/19 03/10/19 03/11/19 23:59 23:59 23:59 23:59 Intake Total 4018 2104 Output Total 1260 600 Balance 2758 1504 Weight 64.54 kg 63.957 kg 65 kg NAD awake on vent no JVD RRR soft NT/ND +trace Le and upper extremity edema 79 year old woman wit history of Chronic Respiratory failure, CAD, Afib on eliquis, CVA (non-verbal), COPD, hypertension, DM who presented from the NH with fever and noted to have COONR, hypernatremia and metabolic alkalosis. 1. CONOR from volume depletion 2. Metabolic alkalosis 3. Hypernatrmeia 4. Sepsis from UTI 5. Acute on Chronic anemia urine studies show low urine Na indicating volume depletion s/p IVF yesterday, Cr now improved BP is improved today, PRN lasix as needed for any worsening in respiratory function keep MAP > 65 continue empiric antibiotics as per ICU team Trend H/H, transfuse as per ICU team Tashi Aguirre DO
[2019-03-11] MEDS: CHLORHEXIDINE GLUCONATE 4% CLEANSER FOR DECOLONIZATION TP SCH (21:55)
[2019-03-11] MEDS: ATORVASTATIN CA 80 MG TABLET (FP) PO SCH (21:56)
[2019-03-11] MEDS: SODIUM CHLORIDE 0.9% 1000 ML INFUS.BAG IV SCH (21:57)
--- NOTE | 2019-03-11 22:27 | PN ---
Physical Exam: SUBJECTIVE: Patient seen and examined. No acute overnight events. OBJECTIVE: Vital Signs Period Temp Pulse Resp BP Sys/[place] Pulse Ox Last 24 Hr 97.8 F-98.4 F 78-106 6-18 91-128/24-92 100-100 GENERAL: Trached to vent. HEENT: NCAT. PERRLA. LUNGS: + rhonchi. HEART: irregularly irregular, tachy. S1S2 heard, no mrg ABDOMEN: Soft NTND. PEG C/D/I. +BS. RECTAL: Rectal tube EXTREMITIES: 1+ peripheral edema b/l LE SKIN: sacral ulcer [id number]-- small area of necrosis, mild serosanguinous drainage, foul odor Laboratory Results - last 24 hr 03/10/19 03/11/19 03/11/19 22:10 00:11 05:25 WBC 13.6 H RBC 3.22 L Hgb 8.1 L Hct 26.5 L MCV 82.5 MCH 25.1 L MCHC 30.4 L RDW 19.1 H Plt Count 355 MPV 9.9 Sodium Potassium Chloride Carbon Dioxide Anion Gap BUN Creatinine Est GFR (CKD-EPI)AfAm Est GFR (CKD-EPI)NonAf POC Glucometer 316 Random Glucose Calcium Phosphorus Magnesium Total Bilirubin AST ALT Alkaline Phosphatase Total Protein Albumin Ur Random Creatinine Ur Random Sodium 15 L Ur Random Potassium 38.0 Ur Random Chloride < 11 L 03/11/19 03/11/19 03/11/19 05:25 06:29 12:23 WBC RBC Hgb Hct MCV MCH MCHC RDW Plt Count MPV Sodium 145 Potassium 3.7 Chloride 107 Carbon Dioxide 31 Anion Gap 7 L BUN 44.7 H Creatinine 0.8 Est GFR (CKD-EPI)AfAm 82.42 Est GFR (CKD-EPI)NonAf 71.11 POC Glucometer 288 307 Random Glucose 283 H Calcium 8.3 L Phosphorus 2.9 Magnesium 2.4 Total Bilirubin 0.3 AST 24 ALT 28 Alkaline Phosphatase 213 H Total Protein 5.3 L Albumin 1.3 L Ur Random Creatinine Ur Random Sodium Ur Random Potassium Ur Random Chloride 03/11/19 03/11/19 16:56 17:30 WBC RBC Hgb Hct MCV MCH MCHC RDW Plt Count MPV Sodium Potassium Chloride Carbon Dioxide Anion Gap BUN Creatinine Est GFR (CKD-EPI)AfAm Est GFR (CKD-EPI)NonAf POC Glucometer 238 Random Glucose Calcium Phosphorus Magnesium Total Bilirubin AST ALT Alkaline Phosphatase Total Protein Albumin Ur Random Creatinine 21.0 L Ur Random Sodium Ur Random Potassium Ur Random Chloride Active Medications Generic Name Dose Route Start Last Admin Trade Name Freq PRN Reason Stop Dose Admin Albumin Human 12.5 gm 03/11/19 10:00 03/11/19 21:59 Albumin Human 25% IVPB 03/12/19 22:01 12.5 gm BID [facility] Administration Albuterol Sulfate 1 amp 03/10/19 08:41 Ventolin 0.083% Nebulizer Soln - NEB Q4H PRN SHORT OF BREATH/WHEEZING Apixaban 5 mg 03/10/19 10:00 03/11/19 21:56 Eliquis - PEG 5 mg BID [facility] Administration Atorvastatin Calcium 80 mg 03/10/19 22:00 03/11/19 21:56 Lipitor - PO 80 mg HS [facility] Administration Chlorhexidine Gluconate 1 applic 03/10/19 22:00 03/11/19 21:55 Hibiclens For Decolonization - TP 1 applic HS [facility] Administration Famotidine 20 mg 03/10/19 10:45 03/11/19 21:56 Pepcid PEG 20 mg BID [facility] Administration Fluoxetine HCl 20 mg 03/10/19 11:00 03/11/19 10:45 Prozac Oral Solution - PO 20 mg DAILY [facility] Administration Furosemide 20 mg 03/11/19 10:30 03/11/19 21:56 Lasix Injection - IVPUSH 03/12/19 22:31 20 mg BID@1030,2230 [facility] Administration Norepinephrine Bitartrate 8, 500 mls @ 18.75 mls/hr 03/10/19 05:30 03/11/19 06:36 000 mcg/ Dextrose IV Not Given TITR [facility] Protocol 5 MCG/MIN Ceftazidime/Avibactam 2.5 gm/ 250 mls @ 125 mls/hr 03/10/19 11:00 03/11/19 17:47 Dextrose IVPB 125 mls/hr Q8H-IV [facility] Administration Protocol Vancomycin HCl 1,000 mg in 250 mls @ 166.667 mls/hr 03/10/19 11:00 03/11/19 22:00 Vancomycin (Pre-Docked) IVPB 166.667 mls/hr Q12H [facility] Administration Protocol Lactated Ringer's 1,000 ml in 1,000 mls @ 75 mls/hr 03/10/19 15:45 03/11/19 15:10 Lactated Ringers Solution IV 75 mls/hr ASDIR [facility] Administration Insulin Aspart 1 vial 03/10/19 06:00 03/11/19 16:59 Novolog Vial Sliding Scale - SQ 4 units Q6HPO [facility] Administration Protocol Metoprolol Tartrate 75 mg 03/10/19 14:00 03/11/19 21:56 Lopressor - PO 75 mg TID [facility] Administration Metoprolol Tartrate 5 mg 03/10/19 12:55 Lopressor Injection - IVPUSH Q4H PRN HYPERTENSION Mupirocin 1 applic 03/10/19 10:00 03/11/19 21:55 Bactroban Ointment (For Decolonization) - NS 03/15/19 09:59 1 applic BID [facility] Administration Nystatin 1 applic 03/10/19 14:00 03/11/19 21:55 Nystop Powder - TP 1 applic TID [facility] Administration Sodium Chloride 1,936 ml 03/09/19 22:15 03/11/19 21:57 Normal Saline - 30 ml/kg (1936 ml) Not Given IV ONCE [facility] ASSESSMENT/PLAN: 79 y.o. F from [facility] CAD, A-fib (on eliquis), CVA (RUE/LE paralysis, non verbal) , sick sinus syndrome s/p perm pacemaker placement, chronic resp failure s/p trach, COPD, HTN, DM, GIB, chronic sacral ulcer presenting w/ sepsis 2/2 UTI #ANTHROPOLOGICAL LINGUIST -unable to assess mentation -on prozac 20mg, daily home med #CV -A-fib: c/w eliquis -Lopressor 75mg TID; 5mg IV q4h PRN -monitor off pressors maintain MAP >65 -echo 04/2108: normal EF, severe TR, mild MR #Pulm -Trached to vent; 350 12 5 50% -CXR: congestive changes, bibasilar pleural eff w/ atelectasis &/or infiltrates -albuterol nebs prn -Maintain O2 sats >90% #ID -leukocytosis downtrending -afebrile -Hx + cultures: CRE in urine -urine cx + LFNB -trach culture, sputum & sacral ulcer culture polymicrobial, f/u organisms -Treating empirically w/ avycaz & vanc -strict isolation precautions #Heme -normocytic anemia -monitor h&h, stable #Endo -ISS -BGMs ACHS #FEN -LR @75mL/ hr -trend lytes replete prn; repleting albumin -clinimix d/c'd, resumed tube feeds #PPX -DVT: Eliquis 5mg PEG BID -GI: Pepcid 20mg PEG BID #Dispo: continue ICU level of care Visit type - Emergency Visit Emergency Visit: No - New Patient This patient is new to me today: No - Critical Care Critical Care patient: Yes Total Critical Care Time (in minutes): 36 Critical Care Statement: The care of this patient involved high complexity decision making to prevent further life threatening deterioration of the patient's condition and/or to evaluate & treat vital organ system(s) failure or risk of failure. ATTENDING PHYSICIAN STATEMENT I saw and evaluated the patient. I reviewed the resident's note and discussed the case with the resident. I agree with the resident's findings and plan as documented. SUBJECTIVE: OBJECTIVE: ASSESSMENT AND PLAN:
[2019-03-12] MEDS: INSULIN SLIDING SCALE (NOVOLOG) 1 VIAL SQ SCH ×5 (00:11→23:31)
[2019-03-12] MEDS: CEFTAZIDIME/AVIBACTAM 2.5 GM in DEXTROSE 5%-WATER - 250 ML IVPB SCH ×3 (02:13→17:09)
[2019-03-12] MEDS ORDERED: PT OWN MED DRAWER 7, Y5N ONE ×3 (03:12→17:07)
[2019-03-12] MEDS: NOREPINEPHRINE BITARTRATE 8,000 MCG in DEXTROSE 5%-WATER - 492 ML IV SCH (05:09)
[2019-03-12] MEDS: NYSTATIN POWDER 100,000 UNITS/GM - 15 GM TOPICAL POWDER TP SCH ×3 (05:55→23:12)
[2019-03-12] MEDS: METOPROLOL TARTRATE 50 MG TABLET (FP) PO SCH ×2 (05:55→13:08)
[2019-03-12 07:03] LABS: HEMATOCRIT 27.1 % (32.4-45.2); HEMOGLOBIN 8.4 GM/dL (10.7-15.3); MCH 25.2 pg (25.7-33.7); MCHC 30.9 g/dl (32.0-36.0); MEAN CELL VOLUME 81.5 fl (80-96); MEAN PLT VOLUME 9.9 fl (7.5-11.1); PLATELET COUNT 349 K/MM3 (134-434); RBC 3.33 M/mm3 (3.60-5.2); RDW 19.2 % (11.6-15.6); WHITE BLOOD COUNT 12.8 K/mm3 (4.0-10.0)
[2019-03-12 07:39] LABS: ALBUMIN 1.5 g/dl (3.4-5.0); BILIRUBIN,TOTAL 0.4 mg/dL (0.2-1); BLOOD UREA NITROGEN 34.2 mg/dL (7-18); CREATININE 0.7 mg/dL (0.55-1.3); MAGNESIUM 2.2 mg/dL (1.8-2.4); PHOSPHOROUS 2.4 mg/dL (2.5-4.9); POTASSIUM 3.3 mmol/L (3.5-5.1); TOT PROT 5.2 g/dl (6.4-8.2)
[2019-03-12] MEDS: KCL 10 MEQ IVPB 10 MEQ/100 ML INFUS.BAG IVPB SCH ×2 (08:53→09:08)
[2019-03-12] MEDS ORDERED: POTASSIUM PHOSPHATE 15 MM in SODIUM CHLORIDE 100 ML IVPB ONE (09:00)
[2019-03-12] MEDS: APIXABAN 5 MG TABLET PEG SCH ×2 (09:04→22:45)
[2019-03-12] MEDS: FLUoxetine HCL 20 MG/5 ML 120 BOTTLE PO SCH (09:04)
[2019-03-12] MEDS: MUPIROCIN 2% TOPICAL OINTMENT FOR DECOLONIZATION NS SCH (09:05)
[2019-03-12] MEDS: FAMOTIDINE 40 MG/5 ML ORAL SUSPENSION PEG SCH ×2 (09:05→23:13)
--- NOTE | 2019-03-12 09:13 | PN ---
Progress Note, Physician - Current Medication List Current Medications: Active Medications Albumin Human (Albumin Human 25%) 12.5 gm IVPB BID [facility] Stop: 03/12/19 22:01 Last Admin: 03/11/19 21:59 Dose: 12.5 gm Albuterol Sulfate (Ventolin 0.083% Nebulizer Soln -) 1 amp NEB Q4H PRN PRN Reason: SHORT OF BREATH/WHEEZING Apixaban (Eliquis -) 5 mg PEG BID [facility] Last Admin: 03/12/19 09:04 Dose: 5 mg Atorvastatin Calcium (Lipitor -) 80 mg PO HS [facility] Last Admin: 03/11/19 21:56 Dose: 80 mg Chlorhexidine Gluconate (Hibiclens For Decolonization -) 1 applic TP [facility] Last Admin: 03/11/19 21:55 Dose: 1 applic Famotidine (Pepcid) 20 mg PEG BID [facility] Last Admin: 03/12/19 09:05 Dose: 20 mg Fluoxetine HCl (Prozac Oral Solution -) 20 mg PO DAILY [facility] Last Admin: 03/12/19 09:04 Dose: 20 mg Furosemide (Lasix Injection -) 20 mg IVPUSH BID@1030,2230 [facility] Stop: 03/12/19 22:31 Last Admin: 03/11/19 21:56 Dose: 20 mg Ceftazidime/Avibactam 2.5 gm/ (Dextrose) 250 mls @ 125 mls/hr IVPB Q8H-IV [facility]; Protocol Last Admin: 03/12/19 09:05 Dose: 125 mls/hr Vancomycin HCl (Vancomycin (Pre-Docked)) 1,000 mg in 250 mls @ 166.667 mls/hr IVPB Q12H [facility]; Protocol Last Admin: 03/11/19 22:00 Dose: 166.667 mls/hr Lactated Ringer's (Lactated Ringers Solution) 1,000 ml in 1,000 mls @ 75 mls/ hr IV ASDIR [facility] Last Admin: 03/11/19 15:10 Dose: 75 mls/hr Potassium Chloride (Potassium Chloride 10 Meq Premix Ivpb -) 10 meq in 100 mls @ 100 mls/hr IVPB Q60M [facility] Stop: 03/12/19 10:29 Last Admin: 03/12/19 09:08 Dose: 100 mls/hr Potassium Phosphate 15 mm/ (Sodium Chloride) 105 mls @ 26.25 mls/hr IVPB ONCE ONE Stop: 03/12/19 12:59 Insulin Aspart (Novolog Vial Sliding Scale -) 1 vial SQ Q6HPO [facility]; Protocol Last Admin: 03/12/19 05:54 Dose: 6 units Metoprolol Tartrate (Lopressor -) 75 mg PO TID [facility] Last Admin: 03/12/19 05:55 Dose: 75 mg Metoprolol Tartrate (Lopressor Injection -) 5 mg IVPUSH Q4H PRN PRN Reason: HYPERTENSION Mupirocin (Bactroban Ointment (For Decolonization) -) 1 applic NS BID [facility] Stop: 03/15/19 09:59 Last Admin: 03/12/19 09:05 Dose: 1 applic Nystatin (Nystop Powder -) 1 applic TP TID [facility] Last Admin: 03/12/19 05:55 Dose: 1 applic Sodium Chloride (Normal Saline -) 1,936 ml 30 ml/kg (1936 ml) IV ONCE [facility] Last Admin: 03/11/19 21:57 Dose: Not Given - Objective Vital Signs: Vital Signs Temperature 97.8 F 03/12/19 04:00 Pulse Rate 78 03/12/19 07:00 Respiratory Rate 16 03/12/19 06:30 Blood Pressure 85/56 L 03/12/19 07:00 O2 Sat by Pulse Oximetry (%) 100 03/12/19 07:52 Cardiovascular: Yes: S1, S2 Respiratory: Yes: Mechanically Ventilated Gastrointestinal: Yes: Normal Bowel Sounds, Soft Labs: CBC, BMP 03/12/19 05:20 03/12/19 05:20 INR, PTT INR 1.61 (0.83-1.09) H 03/10/19 00:05 Problem List - Problems (1) Sepsis Assessment/Plan: CULTURES IV ABX--PER ID ID CONSULT Microbiology 03/09/19 22:19 Blood - Peripheral Venous Blood Culture - Preliminary Streptococcus Species 03/09/19 22:19 Blood - Peripheral Venous Blood Culture - Preliminary Streptococcus Species 03/10/19 05:00 Wound Gram Stain - Final 03/10/19 05:00 Wound Wound Culture - Preliminary Lactose Fermenting Neg Bacilli Pending Organism Pending Organism#2 03/10/19 00:05 Neck Gram Stain - Final 03/10/19 00:05 Neck Wound Culture - Preliminary Lactose Fermenting Neg Bacilli Non Lactose Fermenting Gnb Diphtheroid/Corynebacterium 03/10/19 06:00 Sputum - Endotrachea Suction/Ventilator Gram Stain - Final 03/10/19 06:00 Sputum - Endotrachea Suction/Ventilator Sputum Culture - Preliminary Non Lactose Fermenting Gnb Lactose Fermenting Neg Bacilli 03/10/19 00:00 Urine - Urine - Catheterized Urine Culture - Final Lactose Fermenting Neg Bacilli Lactose Fermenting Neg Bacilli#2 03/09/19 23:14 Urine - Urine [place] Urine Culture - Preliminary Lactose Fermenting Neg Bacilli Code(s): A41.9 - SEPSIS, UNSPECIFIED ORGANISM Qualifiers: Sepsis type: sepsis due to unspecified organism Sepsis acute organ dysfunction status: without acute organ dysfunction Qualified Code(s): A41.9 - Sepsis, unspecified organism (2) CHF (congestive heart failure) Assessment/Plan: DUE TO SEPSIS-LOW ALBUMIN cxr + congestion--Trial of albumin and lasix since alb 1.3 REUME FEEDINGS MONITOR REPLETE ELECTROLYTES Code(s): I50.9 - HEART FAILURE, UNSPECIFIED (3) Atrial fibrillation with RVR Assessment/Plan: on metoprolol MONITOR RATE ON AC Code(s): I48.91 - UNSPECIFIED ATRIAL FIBRILLATION (4) Acute and chronic respiratory failure Assessment/Plan: ICU MONITORING PULM CONSULT VENT SETTINGS ORDERED Code(s): J96.20 - ACUTE AND CHR RESP FAILURE, UNSP W HYPOXIA OR HYPERCAPNIA
[2019-03-12] MEDS: ALBUMIN HUMAN 25% 12.5 GM/50 ML VIAL IVPB SCH (09:14)
[2019-03-12] MEDS: FUROSEMIDE 40 MG/4 ML INJECTABLE VIAL IVPUSH SCH (09:29)
[2019-03-12] MEDS: VANCOMYCIN 1 GRAM (PRE-DOCKED) 1,000 MG/250 ML BAG IVPB SCH ×2 (10:01→22:45)
--- NOTE | 2019-03-12 10:23 | PN ---
Progress Note, Physician History of Present Illness: AWAKE, NON VERBAL TEMPS REMAIN DOWN AFEBRILE WBC IMPROVED BC STREP SP NOT YET IDENTIFIED SPUTUM, URINE , WOUND C/S MIXED - Current Medication List Current Medications: Active Medications Albumin Human (Albumin Human 25%) 12.5 gm IVPB BID [facility] Stop: 03/12/19 22:01 Last Admin: 03/12/19 09:14 Dose: 12.5 gm Albuterol Sulfate (Ventolin 0.083% Nebulizer Soln -) 1 amp NEB Q4H PRN PRN Reason: SHORT OF BREATH/WHEEZING Apixaban (Eliquis -) 5 mg PEG BID [facility] Last Admin: 03/12/19 09:04 Dose: 5 mg Atorvastatin Calcium (Lipitor -) 80 mg PO HS [facility]PL[facility] Last Admin: 03/11/19 21:56 Dose: 80 mg Chlorhexidine Gluconate (Hibiclens For Decolonization -) [address] [facility] Last Admin: 03/11/19 21:55 Dose: 1 applic Famotidine (Pepcid) 20 mg PEG BID [facility] Last Admin: 03/12/19 09:05 Dose: 20 mg Fluoxetine HCl (Prozac Oral Solution -) 20 mg PO DAILY [facility] Last Admin: 03/12/19 09:04 Dose: 20 mg Furosemide (Lasix Injection -) 20 mg IVPUSH BID@1030,2230 [facility] Stop: 03/12/19 22:31 Last Admin: 03/12/19 09:29 Dose: 20 mg Ceftazidime/Avibactam 2.5 gm/ (Dextrose) 250 mls @ 125 mls/hr IVPB Q8H-IV [facility]; Protocol Last Admin: 03/12/19 09:05 Dose: 125 mls/hr Vancomycin HCl (Vancomycin (Pre-Docked)) 1,000 mg in 250 mls @ 166.667 mls/hr IVPB Q12H [facility]; Protocol Last Admin: 03/12/19 10:01 Dose: 166.667 mls/hr Lactated Ringer's (Lactated Ringers Solution) 1,000 ml in 1,000 mls @ 75 mls/ hr IV ASDIR REPLACED BY [facility] Last Admin: 03/11/19 15:10 Dose: 75 mls/hr Potassium Chloride (Potassium Chloride 10 Meq Premix Ivpb -) 10 meq in 100 mls @ 100 mls/hr IVPB Q60M [facility]PL[facility] Stop: 03/12/19 10:29 Last Admin: 03/12/19 09:08 Dose: 100 mls/hr Potassium Phosphate 15 mm/ (Sodium Chloride) 105 mls @ 26.25 mls/hr IVPB ONCE ONE Stop: 03/12/19 12:59 Last Admin: 03/12/19 09:15 Dose: 26.25 mls/hr Insulin Aspart (Novolog Vial Sliding Scale -) 1 vial SQ Q6HPO [facility]PL[facility]; Protocol Last Admin: 03/12/19 05:54 Dose: 6 units Metoprolol Tartrate (Lopressor -) 75 mg PO TID [facility] Last Admin: 03/12/19 05:55 Dose: 75 mg Metoprolol Tartrate (Lopressor Injection -) 5 mg IVPUSH Q4H PRN PRN Reason: HYPERTENSION Mupirocin (Bactroban Ointment (For Decolonization) -) 1 applic NS BID [facility] Stop: 03/15/19 09:59 Last Admin: 03/12/19 09:05 Dose: 1 applic Nystatin (Nystop Powder -) 1 applic TP TID [facility] Last Admin: 03/12/19 05:55 Dose: 1 applic Sodium Chloride (Normal Saline -) 1,936 ml 30 ml/kg (1936 ml) IV ONCE REPLAC[facility] Last Admin: 03/11/19 21:57 Dose: Not Given - Objective Vital Signs: Vital Signs Temperature 98 F 03/12/19 09:19 Pulse Rate 84 03/12/19 10:06 Respiratory Rate 14 03/12/19 09:18 Blood Pressure 103/52 L 03/12/19 10:06 O2 Sat by Pulse Oximetry (%) 100 03/12/19 09:55 Constitutional: Yes: No Distress Eyes: Yes: Conjunctiva Clear Cardiovascular: Yes: Regular Rate and Rhythm, S1, S2 Respiratory: Yes: Mechanically Ventilated Gastrointestinal: Yes: Normal Bowel Sounds, Soft. No: Tenderness Genitourinary: Yes: Other (+GT) Edema: Yes Labs: CBC, BMP 03/12/19 05:20 03/12/19 05:20 INR, PTT INR 1.61 (0.83-1.09) H 03/10/19 00:05 Assessment/Plan SEPSIS/ SEPTIC SHOCK STREPTOCOCCAL BACTEREMIA UTI SACRAL DECUBITUS ULCER LACTIC ACIDOSIS DM CHRONIC RESP FAILURE HX CRE AWAIT IDENTIFICATION OF BLOOD ISOLATE CONTINUE EMPIRIC VANCOMYCIN / AVYCAZ CONTACT PRECAUTIONS
--- NOTE | 2019-03-12 10:33 | PN ---
Progress Note, Physician History of Present Illness: Afebrile, WBC lower. Rate-controlled afib, nonverbal. - Current Medication List Current Medications: Active Medications Albumin Human (Albumin Human 25%) 12.5 gm IVPB BID [facility] Stop: 03/12/19 22:01 Last Admin: 03/12/19 09:14 Dose: 12.5 gm Albuterol Sulfate (Ventolin 0.083% Nebulizer Soln -) 1 amp NEB Q4H PRN PRN Reason: SHORT OF BREATH/WHEEZING Apixaban (Eliquis -) 5 mg PEG BID [facility] Last Admin: 03/12/19 09:04 Dose: 5 mg Atorvastatin Calcium (Lipitor -) 80 mg PO HS [facility] Last Admin: 03/11/19 21:56 Dose: 80 mg Chlorhexidine Gluconate (Hibiclens For Decolonization -) 1 applic TP [facility] Last Admin: 03/11/19 21:55 Dose: 1 applic Famotidine (Pepcid) 20 mg PEG BID [facility] Last Admin: 03/12/19 09:05 Dose: 20 mg Fluoxetine HCl (Prozac Oral Solution -) 20 mg PO DAILY [facility] Last Admin: 03/12/19 09:04 Dose: 20 mg Furosemide (Lasix Injection -) 20 mg IVPUSH BID@1030,2230 [facility] Stop: 03/12/19 22:31 Last Admin: 03/12/19 09:29 Dose: 20 mg Ceftazidime/Avibactam 2.5 gm/ (Dextrose) 250 mls @ 125 mls/hr IVPB Q8H-IV [facility]; Protocol Last Admin: 03/12/19 09:05 Dose: 125 mls/hr Vancomycin HCl (Vancomycin (Pre-Docked)) 1,000 mg in 250 mls @ 166.667 mls/hr IVPB Q12H [facility]; Protocol Last Admin: 03/12/19 10:01 Dose: 166.667 mls/hr Lactated Ringer's (Lactated Ringers Solution) 1,000 ml in 1,000 mls @ 75 mls/ hr IV ASDIR [facility] Last Admin: 03/11/19 15:10 Dose: 75 mls/hr Potassium Phosphate 15 mm/ (Sodium Chloride) 105 mls @ 26.25 mls/hr IVPB ONCE ONE Stop: 03/12/19 12:59 Last Admin: 03/12/19 09:15 Dose: 26.25 mls/hr Insulin Aspart (Novolog Vial Sliding Scale -) 1 vial SQ Q6HPO [facility]; Protocol Last Admin: 03/12/19 05:54 Dose: 6 units Metoprolol Tartrate (Lopressor -) 75 mg PO TID [facility] Last Admin: 03/12/19 05:55 Dose: 75 mg Metoprolol Tartrate (Lopressor Injection -) 5 mg IVPUSH Q4H PRN PRN Reason: HYPERTENSION Mupirocin (Bactroban Ointment (For Decolonization) -) 1 applic NS BID [facility] Stop: 03/15/19 09:59 Last Admin: 03/12/19 09:05 Dose: 1 applic Nystatin (Nystop Powder -) 1 applic TP TID [facility] Last Admin: 03/12/19 05:55 Dose: 1 applic Sodium Chloride (Normal Saline -) 1,936 ml 30 ml/kg (1936 ml) IV ONCE [facility] Last Admin: 03/11/19 21:57 Dose: Not Given - Objective Vital Signs: Vital Signs Temperature 98 F 03/12/19 09:19 Pulse Rate 84 03/12/19 10:06 Respiratory Rate 14 03/12/19 09:18 Blood Pressure 103/52 L 03/12/19 10:06 O2 Sat by Pulse Oximetry (%) 100 03/12/19 09:55 Constitutional: Yes: No Distress, Calm Neck: Yes: Supple, Other (Tracheostomy) Cardiovascular: Yes: Pulse Irregular Respiratory: Yes: Mechanically Ventilated, Rhonchi Gastrointestinal: Yes: Normal Bowel Sounds, Soft Genitourinary: Yes: [place] Present Edema: Yes Edema: LLE: Trace, RLE: Trace Labs: CBC, BMP 03/12/19 05:20 03/12/19 05:20 INR, PTT INR 1.61 (0.83-1.09) H 03/10/19 00:05 - ....Imaging EKG: Report Reviewed (Tele: Rate-controlled afib) Problem List - Problems (1) Bacteremia Code(s): R78.81 - BACTEREMIA (2) Atrial fibrillation with RVR Code(s): I48.91 - UNSPECIFIED ATRIAL FIBRILLATION (3) Angiodysplasia of colon with hemorrhage Code(s): K55.21 - ANGIODYSPLASIA OF COLON WITH HEMORRHAGE (4) CAD (coronary artery disease) Code(s): I25.10 - ATHSCL HEART DISEASE OF [place] CORONARY ARTERY W/O ANG PCTRS Qualifiers: Coronary Disease-Associated Artery/Lesion type: [place] artery [place] vs. transplanted heart: [place] heart Associated angina: without angina Qualified Code(s): I25.10 - Atherosclerotic heart disease of [place] coronary artery without angina pectoris (5) CVA (cerebral vascular accident) Code(s): I63.9 - CEREBRAL INFARCTION, UNSPECIFIED Qualifiers: CVA mechanism: unspecified Qualified Code(s): I63.9 - Cerebral infarction, unspecified (6) Diabetes mellitus Code(s): E11.9 - TYPE 2 DIABETES MELLITUS WITHOUT COMPLICATIONS Qualifiers: Diabetes mellitus type: type 2 (7) Diastolic dysfunction Code(s): I51.89 - OTHER ILL-DEFINED HEART DISEASES (8) S/P mitral valve repair Code(s): Z98.890 - OTHER SPECIFIED POSTPROCEDURAL STATES (9) Sick sinus syndrome Code(s): I49.5 - SICK SINUS SYNDROME (10) Stage 4 skin ulcer of sacral region Code(s): L98.429 - NON-PRESSURE CHRONIC ULCER OF BACK WITH UNSPECIFIED SEVERITY (11) Tracheostomy care Code(s): Z43.0 - ENCOUNTER FOR ATTENTION TO TRACHEOSTOMY (12) UTI (urinary tract infection) Code(s): N39.0 - URINARY TRACT INFECTION, SITE NOT SPECIFIED Qualifiers: Urinary tract infection type: acute cystitis Hematuria presence: with hematuria Qualified Code(s): N30.01 - Acute cystitis with hematuria (13) Ventilator dependent Code(s): Z99.11 - DEPENDENCE ON RESPIRATOR [VENTILATOR] STATUS Assessment/Plan 02/18/2019 EGD revealing mild patchy antral erythema otherwise unremarkable. No obvious ulcers or angioectasias seen 04/30/2018 Echo: Normal LV size and fxn, severe TR RVSP 50-60 mmHg, mild MR EGD and colonoscopy in 07/2017 revealing gastritis, cecal AVM and four tubular adenomas 12/17/2016 reveal: 03/2009 acute systolic CHF and WI, R&LHc 90% distal OM1, 60% D1, preserved LV fxn, elevated LVEDP [place] severe posterior leaflet prolapse with severe MR->MV annuloplasty repair, afib, sinus arrest->PPM, CAD left alone. [facility] Echo: 06/28/16 normal biventricular fxn, COSMO, mod TR, MV ring Nuc stress 09/13/2016 Anterolateral ischemia/infarct SDS 3 EF 82%, abnl ecg changes 1. Clinical presentation suggests sepsis/septic shock due to source with UTI with GPC bacteremia 2. Acute on chronic diastolic failure 3. Respiratory failure (chronic) on mechanical ventilation s/p tracheostomy and PEG 4. CAD, angina pectoris 5. Permanent AF [id number] score of 9 on DOAC 6. Sick sinus syndrome s/p PPM 7. Post mitral valve repair 8. History of HTN 9. Hypercholesterolemia 10. COPD 11. Acute on CKD with hypernatremia 12. Anemia h/o GI Bleed 13. History of CVA 14. Sacral decubitus ulcer PLAN: 1. Antibiotic coverage per C&S 2. Metoprolol 75 tid to control HR via PEG and then additional IV Lopressor for added rate control as BP tolerates 3. Eliquis 5 mg BID, Lipitor 80 qd 4. Continue vent support O2 to keep SpO2 >90% 5. Off Pressor 6. Enteral feeds 7. DVT/GI prophylaxis 8. IV diuresis to keep even, replete K
--- NOTE | 2019-03-12 11:47 | PN ---
Teaching Attending Note Name of Resident: Yakov Reaves ATTENDING PHYSICIAN STATEMENT I saw and evaluated the patient. I reviewed the resident's note and discussed the case with the resident. I agree with the resident's findings and plan as documented. SUBJECTIVE: Pt seen and examined in the ICU. Vented, awake. No fevers recorded. Heart rates controlled. OBJECTIVE: Vital Signs Period Temp Pulse Resp BP Sys/[place] Pulse Ox Last 24 Hr 97.8 F-98.1 F 74-101 6-19 82-128/51-92 100-100 Intake & Output 03/09/19 03/10/19 03/11/19 03/12/19 23:59 23:59 23:59 23:59 Intake Total 4018 4524 2095 Output Total 1260 1000 500 Balance 2758 3524 1595 Weight 64.54 kg 63.957 kg 65 kg 65.771 kg Gen: vented, awake Heart: irregular Lung: scattered rhonchi Abd: soft, nontender Ext: + edema CBC, BMP 03/12/19 05:20 03/12/19 05:20 Active Medications Albumin Human (Albumin Human 25%) 12.5 gm IVPB BID [facility] Stop: 03/12/19 22:01 Last Admin: 03/12/19 09:14 Dose: 12.5 gm Albuterol Sulfate (Ventolin 0.083% Nebulizer Soln -) 1 amp NEB Q4H PRN PRN Reason: SHORT OF BREATH/WHEEZING Apixaban (Eliquis -) 5 mg PEG BID [facility] Last Admin: 03/12/19 09:04 Dose: 5 mg Atorvastatin Calcium (Lipitor -) 80 mg PO [facility] Last Admin: 03/11/19 21:56 Dose: 80 mg Chlorhexidine Gluconate (Hibiclens For Decolonization -) 1 applic TP [facility] Last Admin: 03/11/19 21:55 Dose: 1 applic Famotidine (Pepcid) 20 mg PEG BID [facility] Last Admin: 03/12/19 09:05 Dose: 20 mg Fluoxetine HCl (Prozac Oral Solution -) 20 mg PO DAILY [facility] Last Admin: 03/12/19 09:04 Dose: 20 mg Furosemide (Lasix Injection -) 20 mg IVPUSH BID@1030,2230 [facility] Stop: 03/12/19 22:31 Last Admin: 03/12/19 09:29 Dose: 20 mg Ceftazidime/Avibactam 2.5 gm/ (Dextrose) 250 mls @ 125 mls/hr IVPB Q8H-IV [facility]; Protocol Last Admin: 03/12/19 09:05 Dose: 125 mls/hr Vancomycin HCl (Vancomycin (Pre-Docked)) 1,000 mg in 250 mls @ 166.667 mls/hr IVPB Q12H [facility]; Protocol Last Admin: 03/12/19 10:01 Dose: 166.667 mls/hr Lactated Ringer's (Lactated Ringers Solution) 1,000 ml in 1,000 mls @ 75 mls/ hr IV ASDIR [facility] Last Admin: 03/11/19 15:10 Dose: 75 mls/hr Potassium Phosphate 15 mm/ (Sodium Chloride) 105 mls @ 26.25 mls/hr IVPB ONCE ONE Stop: 03/12/19 12:59 Last Admin: 03/12/19 09:15 Dose: 26.25 mls/hr Insulin Aspart (Novolog Vial Sliding Scale -) 1 vial SQ Q6HPO [facility]; Protocol Last Admin: 03/12/19 11:06 Dose: 6 units Metoprolol Tartrate (Lopressor -) 75 mg PO TID [facility] Last Admin: 03/12/19 05:55 Dose: 75 mg Metoprolol Tartrate (Lopressor Injection -) 5 mg IVPUSH Q4H PRN PRN Reason: HYPERTENSION Mupirocin (Bactroban Ointment (For Decolonization) -) 1 applic NS BID [facility] Stop: 03/15/19 09:59 Last Admin: 03/12/19 09:05 Dose: 1 applic Nystatin (Nystop Powder -) 1 applic TP TID [facility] Last Admin: 03/12/19 05:55 Dose: 1 applic Sodium Chloride (Normal Saline -) 1,936 ml 30 ml/kg (1936 ml) IV ONCE [facility] Last Admin: 03/11/19 21:57 Dose: Not Given ASSESSMENT AND PLAN: Acute on Chronic Hypoxic Respiratory Failure UTI Gram Positive Bacteremia Decubitus Ulcers Septic Shock Atrial Fibrillation with RVR s/p PPM COPD HTN DM h/o GI Bleed h/o CVA Anemia - continue antibiotics - f/u cultures - strict isolation - off pressors, maintain MAP >65 - rate control - continue anticoagulation - continue lasix - O2 to keep SpO2 >90% - continue assist control - enteral feeds - DVT/GI prophylaxis - can monitor on vent floor
--- NOTE | 2019-03-12 16:04 | PN ---
Physical Exam: SUBJECTIVE: Patient seen and examined in the morning. No events on cardiac monitoring, no events from nursing report. Patient is nonverbal at baseline, did not communicate with examiner. OBJECTIVE: Vital Signs Period Temp Pulse Resp BP Sys/[place] Pulse Ox Last 24 Hr 97.8 F-98.1 F 74-101 6-23 82-128/51-92 100-100 GENERAL: The patient is awake, arousable, trached to vent. HEAD: NCAT EYES: PERRLA NECK: Tracheostomy in place. LUNGS: Crackes bilaterally HEART: irregularly irregular, S1, S2 without murmur, rub or gallop. ABDOMEN: Soft, nontender, nondistended, normoactive bowel sounds, no guarding, no rebound, no hepatosplenomegaly, no masses. EXTREMITIES: 2+ pulses, warm, well-perfused, no+1 edema. Laboratory Results - last 24 hr 03/11/19 03/11/19 03/11/19 16:56 17:30 22:37 WBC RBC Hgb Hct MCV MCH MCHC RDW Plt Count MPV Sodium Potassium Chloride Carbon Dioxide Anion Gap BUN Creatinine Est GFR (CKD-EPI)AfAm Est GFR (CKD-EPI)NonAf POC Glucometer 238 224 Random Glucose Calcium Phosphorus Magnesium Total Bilirubin AST ALT Alkaline Phosphatase Total Protein Albumin Ur Random Creatinine 21.0 L 03/12/19 03/12/19 03/12/19 05:20 05:20 05:51 WBC 12.8 H RBC 3.33 L Hgb 8.4 L Hct 27.1 L MCV 81.5 MCH 25.2 L MCHC 30.9 L RDW 19.2 H Plt Count 349 MPV 9.9 Sodium 140 Potassium 3.3 L Chloride 104 Carbon Dioxide 28 Anion Gap 9 BUN 34.2 H Creatinine 0.7 Est GFR (CKD-EPI)AfAm 96.86 Est GFR (CKD-EPI)NonAf 83.57 POC Glucometer 264 Random Glucose 268 H Calcium 8.0 L Phosphorus 2.4 L Magnesium 2.2 Total Bilirubin 0.4 AST 99 H ALT 52 Alkaline Phosphatase 284 H Total Protein 5.2 L Albumin 1.5 L Ur Random Creatinine 03/12/19 11:05 WBC RBC Hgb Hct MCV MCH MCHC RDW Plt Count MPV Sodium Potassium Chloride Carbon Dioxide Anion Gap BUN Creatinine Est GFR (CKD-EPI)AfAm Est GFR (CKD-EPI)NonAf POC Glucometer 284 Random Glucose Calcium Phosphorus Magnesium Total Bilirubin AST ALT Alkaline Phosphatase Total Protein Albumin Ur Random Creatinine Active Medications Generic Name Dose Route Start Last Admin Trade Name Baldo PRN Reason Stop Dose Admin Albumin Human 12.5 gm 03/11/19 10:00 03/12/19 09:14 Albumin Human 25% IVPB 03/12/19 22:01 12.5 gm BID BAHMAN Administration Albuterol Sulfate 1 amp 03/10/19 08:41 Ventolin 0.083% Nebulizer Soln - NEB Q4H PRN SHORT OF BREATH/WHEEZING Apixaban 5 mg 03/10/19 10:00 03/12/19 09:04 Eliquis - PEG 5 mg BID BAHMAN Administration Atorvastatin Calcium 80 mg 03/10/19 22:00 03/11/19 21:56 Lipitor - PO 80 mg HS BAHMAN Administration Chlorhexidine Gluconate 1 applic 03/10/19 22:00 03/11/19 21:55 Hibiclens For Decolonization - TP 1 applic HS BAHMAN Administration Famotidine 20 mg 03/10/19 10:45 03/12/19 09:05 Pepcid PEG 20 mg BID BAHMAN Administration Fluoxetine HCl 20 mg 03/10/19 11:00 03/12/19 09:04 Prozac Oral Solution - PO 20 mg DAILY BAHMAN Administration Furosemide 20 mg 03/11/19 10:30 03/12/19 09:29 Lasix Injection - IVPUSH 03/12/19 22:31 20 mg BID@1030,2230 BAHMAN Administration Ceftazidime/Avibactam 2.5 gm/ 250 mls @ 125 mls/hr 03/10/19 11:00 03/12/19 09:05 Dextrose IVPB 125 mls/hr Q8H-IV BAHMAN Administration Protocol Vancomycin HCl 1,000 mg in 250 mls @ 166.667 mls/hr 03/10/19 11:00 03/12/19 10:01 Vancomycin (Pre-Docked) IVPB 166.667 mls/hr Q12H BAHMAN Administration Protocol Lactated Ringer's 1,000 ml in 1,000 mls @ 75 mls/hr 03/10/19 15:45 03/11/19 15:10 Lactated Ringers Solution IV 75 mls/hr ASDIR BAHMAN Administration Insulin Aspart 1 vial 03/10/19 06:00 03/12/19 11:06 Novolog Vial Sliding Scale - SQ 6 units Q6HPO BAHMAN Administration Protocol Metoprolol Tartrate 75 mg 03/10/19 14:00 03/12/19 13:08 Lopressor - PO 75 mg TID BAHMAN Administration Metoprolol Tartrate 5 mg 03/10/19 12:55 Lopressor Injection - IVPUSH Q4H PRN HYPERTENSION Mupirocin 1 applic 03/10/19 10:00 03/12/19 09:05 Bactroban Ointment (For Decolonization) - NS 03/15/19 09:59 1 applic BID BAHMAN Administration Nystatin 1 applic 03/10/19 14:00 03/12/19 13:08 Nystop Powder - TP 1 applic TID BAHMAN Administration Sodium Chloride 1,936 ml 03/09/19 22:15 03/11/19 21:57 Normal Saline - 30 ml/kg (1936 ml) Not Given IV ONCE BAHMAN ASSESSMENT/PLAN: 79 F PMH CAD, Afib (eliquis), CVA (RUE/LE paralysis, non verbal), sick sinus syndrome s/p PPM, chronic respiratory failure s/p trach, COPD, HTN, DM, GIB, chronic sacral ulcer presenting with sepsis 2/2 to UTI. Neuro Unable to assess mentation -Prozac 20 mg daily home med Cardiovascular -Afib c/w eliquis -Lopressor 75mg TID; 5mg IV q4h PRN -monitor off pressors maintain MAP >65 -echo 04/2108: normal EF, severe TR, mild MR Pulm -On trach to vent: Vt 350, RR 12, PEEP 5 Fio2 45% -Albuterol nebs PRN -Maintain O2 > 90% ID -Leukocystosis downtrending -Afebrile -repeat blood culture results pending -Trach, sputum, sacral cultures polymicrobial -Continue empiric vancomycin/ avycaz -strict isolation precautions Heme -normocytic anemia -monitor H&H, stable Endo -ISS -BGMS ACHS F: LR@75 ml/hr E: trend lytes. Repleted Phosphorous N: Tube feeds DVT: Eliquis 5 mg GI: Pepcid 20 mg BID Dispo: transfer to med/surg Visit type - Emergency Visit Emergency Visit: Yes ED Registration Date: 03/09/19 Care time: The patient presented to the Emergency Department on the above date and was hospitalized for further evaluation of their emergent condition. - New Patient This patient is new to me today: No - Critical Care Critical Care patient: Yes Total Critical Care Time (in minutes): 45 Critical Care Statement: The care of this patient involved high complexity decision making to prevent further life threatening deterioration of the patient's condition and/or to evaluate & treat vital organ system(s) failure or risk of failure. ATTENDING PHYSICIAN STATEMENT I saw and evaluated the patient. I reviewed the resident's note and discussed the case with the resident. I agree with the resident's findings and plan as documented. SUBJECTIVE: OBJECTIVE: ASSESSMENT AND PLAN:
--- NOTE | 2019-03-12 16:42 | PN ---
Progress Note (short form) - Note Progress Note: Renal follow up for CONOR Seen and examined at the bedside on vent via trach no overnight events Vital Signs Temperature 97.9 F 03/12/19 14:00 Pulse Rate 77 03/12/19 14:00 Respiratory Rate 23 H 03/12/19 13:45 Blood Pressure 106/74 03/12/19 14:00 O2 Sat by Pulse Oximetry (%) 100 03/12/19 09:55 Intake & Output 03/09/19 03/10/19 03/11/19 03/12/19 23:59 23:59 23:59 23:59 Intake Total 4018 4534 2095 Output Total 1260 1000 1300 Balance 2758 3524 795 Weight 64.54 kg 63.957 kg 65 kg 65.771 kg NAD awake on vent no JVD RRR soft NT/ND +trace Le and upper extremity edema CBC, BMP 03/12/19 05:20 03/12/19 05:20 Current Medications Albumin Human (Albumin Human 25%) 12.5 gm IVPB BID [facility] Stop: 03/12/19 22:01 Last Admin: 03/12/19 09:14 Dose: 12.5 gm Albuterol Sulfate (Ventolin 0.083% Nebulizer Soln -) 1 amp NEB Q4H PRN PRN Reason: SHORT OF BREATH/WHEEZING Apixaban (Eliquis -) 5 mg PEG BID [facility] Last Admin: 03/12/19 09:04 Dose: 5 mg Atorvastatin Calcium (Lipitor -) 80 mg PO [facility] Last Admin: 03/11/19 21:56 Dose: 80 mg Chlorhexidine Gluconate (Hibiclens For Decolonization -) 1 applic TP [facility] Last Admin: 03/11/19 21:55 Dose: 1 applic Famotidine (Pepcid) 20 mg PEG BID [facility] Last Admin: 03/12/19 09:05 Dose: 20 mg Fluoxetine HCl (Prozac Oral Solution -) 20 mg PO DAILY [facility] Last Admin: 03/12/19 09:04 Dose: 20 mg Furosemide (Lasix Injection -) 20 mg IVPUSH BID@1030,2230 [facility] Stop: 03/12/19 22:31 Last Admin: 03/12/19 09:29 Dose: 20 mg Ceftazidime/Avibactam 2.5 gm/ (Dextrose) 250 mls @ 125 mls/hr IVPB Q8H-IV BAHMAN; Protocol Last Admin: 03/12/19 09:05 Dose: 125 mls/hr Vancomycin HCl (Vancomycin (Pre-Docked)) 1,000 mg in 250 mls @ 166.667 mls/hr IVPB Q12H BAHMAN; Protocol Last Admin: 03/12/19 10:01 Dose: 166.667 mls/hr Insulin Aspart (Novolog Vial Sliding Scale -) 1 vial SQ Q6HPO BAHMAN; Protocol Last Admin: 03/12/19 11:06 Dose: 6 units Metoprolol Tartrate (Lopressor -) 75 mg PO TID BAHMAN Last Admin: 03/12/19 13:08 Dose: 75 mg Metoprolol Tartrate (Lopressor Injection -) 5 mg IVPUSH Q4H PRN PRN Reason: HYPERTENSION Mupirocin (Bactroban Ointment (For Decolonization) -) 1 applic NS BID [facility] Stop: 03/15/19 09:59 Last Admin: 03/12/19 09:05 Dose: 1 applic Nystatin (Nystop Powder -) 1 applic TP TID [facility] Last Admin: 03/12/19 13:08 Dose: 1 applic Sodium Chloride (Normal Saline -) 1,936 ml 30 ml/kg (1936 ml) IV ONCE [facility] Last Admin: 03/11/19 21:57 Dose: Not Given 79 year old woman wit history of Chronic Respiratory failure, CAD, Afib on eliquis, CVA (non-verbal), COPD, hypertension, DM who presented from the [place] with fever and noted to have CONOR, hypernatremia and metabolic alkalosis. 1. CONOR from volume depletion 2. Metabolic alkalosis 3. Hypernatrmeia 4. Sepsis from UTI 5. Acute on Chronic anemia renal function and acid/base status improved on fluids but has edema and chest congestion, would hold fluids continue Lasix IV as needed to maintain euvolemia keep MAP > 65 continue empiric antibiotics as per ICU team Trend H/H, transfuse as per ICU team enteral feeding as tolerated Tashi Aguirre DO
[2019-03-12] MEDS ORDERED: INSULIN (LEVEMIR) 100 UNITS/ML UNITS SQ ONE (18:57)
[2019-03-12] MEDS ORDERED: ALBUTEROL SO4 0.083% IH SOL 2.5 MG/3 ML VIAL.NEB. NEB PRN (21:56)
[2019-03-12] MEDS ORDERED: METOPROLOL TARTRATE 5 MG/5 ML VIAL IVPUSH PRN (21:56)
[2019-03-12] MEDS ORDERED: SODIUM CHLORIDE 0.9% 1000 ML INFUS.BAG IV SCH (21:56)
[2019-03-12] MEDS ORDERED: ALBUMIN HUMAN 25% 12.5 GM/50 ML VIAL IVPB SCH (22:00)
[2019-03-12] MEDS ORDERED: MUPIROCIN 2% TOPICAL OINTMENT FOR DECOLONIZATION NS SCH (22:00)
[2019-03-12] MEDS ORDERED: FUROSEMIDE 40 MG/4 ML INJECTABLE VIAL IVPUSH SCH (22:30)
[2019-03-12] MEDS: METOPROLOL TARTRATE 25 MG TABLET (FP) PO SCH (22:45)
[2019-03-12] MEDS: ATORVASTATIN CA 80 MG TABLET (FP) PO SCH (22:45)
[2019-03-13] MEDS: CEFTAZIDIME/AVIBACTAM 2.5 GM in DEXTROSE 5%-WATER - 250 ML IVPB SCH ×3 (01:35→17:38)
[2019-03-13] MEDS: METOPROLOL TARTRATE 25 MG TABLET (FP) PO SCH ×3 (06:39→22:21)
[2019-03-13] MEDS: NYSTATIN POWDER 100,000 UNITS/GM - 15 GM TOPICAL POWDER TP SCH ×3 (06:39→22:21)
[2019-03-13] MEDS: INSULIN SLIDING SCALE (NOVOLOG) 1 VIAL SQ SCH ×4 (06:39→23:50)
[2019-03-13] MEDS ORDERED: INSULIN (NOVOLOG) ASPART 100 UNITS/ML 10ML VIAL ONE ×2 (06:49→23:09)
[2019-03-13] MEDS ORDERED: INSULIN (LEVEMIR) 100 UNITS/ML UNITS SQ SCH (07:00)
--- NOTE | 2019-03-13 08:10 | PN ---
Progress Note, Physician Chief Complaint: Sepsis Afib with RVR Acute on Chronic Respiratory Failure History of Present Illness: Previous notes and events reviewed awake and alert mechanically ventilated NAD Leukocytosis showing downtrend afebrile repeat BC neg - Current Medication List Current Medications: Active Medications Albuterol Sulfate (Ventolin 0.083% Nebulizer Soln -) 1 amp NEB Q4H PRN PRN Reason: SHORT OF BREATH/WHEEZING Apixaban (Eliquis -) 5 mg PEG BID [facility] Last Admin: 03/12/19 22:45 Dose: 5 mg Atorvastatin Calcium (Lipitor -) 80 mg PO HS [facility] Last Admin: 03/12/19 22:45 Dose: 80 mg Famotidine (Pepcid) 20 mg PEG BID [facility] Last Admin: 03/12/19 23:13 Dose: 20 mg Fluoxetine HCl (Prozac Oral Solution -) 20 mg PO DAILY [facility] Ceftazidime/Avibactam 2.5 gm/ (Dextrose) 250 mls @ 125 mls/hr IVPB Q8H-IV BAHMAN; Protocol Last Admin: 03/13/19 01:35 Dose: 125 mls/hr Vancomycin HCl (Vancomycin (Pre-Docked)) 1,000 mg in 250 mls @ 166.667 mls/hr IVPB Q12H BAHMAN; Protocol Last Admin: 03/12/19 22:45 Dose: 166.667 mls/hr Insulin Aspart (Novolog Vial Sliding Scale -) 1 vial SQ Q6HPO [facility]; Protocol Last Admin: 03/13/19 06:39 Dose: 6 units Insulin Detemir (Levemir Vial) 10 units SQ AM [facility] Metoprolol Tartrate (Lopressor -) 75 mg PO TID [facility] Last Admin: 03/13/19 06:39 Dose: 75 mg Metoprolol Tartrate (Lopressor Injection -) 5 mg IVPUSH Q4H PRN PRN Reason: HYPERTENSION Nystatin (Nystop Powder -) 1 applic TP TID [facility] Last Admin: 03/13/19 06:39 Dose: 1 applic - Objective Vital Signs: Vital Signs Temperature 98.3 F 03/13/19 06:00 Pulse Rate 88 03/13/19 06:00 Respiratory Rate 20 03/13/19 06:00 Blood Pressure 114/63 03/13/19 06:00 O2 Sat by Pulse Oximetry (%) 99 03/12/19 21:00 Constitutional: Yes: No Distress, Calm Eyes: Yes: Conjunctiva Clear HENT: Yes: Atraumatic Neck: Yes: Other (trach) Cardiovascular: Yes: Pulse Irregular Respiratory: Yes: Regular, Diminished, Mechanically Ventilated Gastrointestinal: Yes: Normal Bowel Sounds, Soft, Other (Gtube) Genitourinary: Yes: [place] Present Musculoskeletal: Yes: Muscle Weakness Extremities: Yes: WNL Edema: Yes Edema: LUE: 2+, RUE: 2+ Integumentary: Yes: Pressure Ulcer Neurological: Yes: Alert, Pre-Existing Deficit Psychiatric: Yes: Alert Labs: CBC, BMP 03/12/19 05:20 03/12/19 05:20 INR, PTT INR 1.61 (0.83-1.09) H 03/10/19 00:05 Microbiology 03/10/19 00:05 Neck Gram Stain - Final 03/10/19 00:05 Neck Wound Culture - Preliminary Enterobacter Cloacae Stenotrophomon.(X.)Maltophilia Diphtheroid/Corynebacterium Group D Strep Or Entero Coccus 03/10/19 05:00 Wound Gram Stain - Final 03/10/19 05:00 Wound Wound Culture - Preliminary Klebsiella Pneumoniae - Esbl Group D Strep Or Entero Coccus Presumptive Mssa (Pbp2a Neg) 03/12/19 05:20 Blood - Peripheral Venous Blood Culture - Preliminary NO GROWTH OBTAINED AFTER 24 HOURS, INCUBATION TO CONTINUE FOR 4 DAYS. 03/12/19 05:27 Blood - Peripheral Venous Blood Culture - Preliminary NO GROWTH OBTAINED AFTER 24 HOURS, INCUBATION TO CONTINUE FOR 4 DAYS. 03/09/19 22:19 Blood - Peripheral Venous Blood Culture - Preliminary Streptococcus Species 03/10/19 06:00 Sputum - Endotrachea Suction/Ventilator Gram Stain - Final 03/10/19 06:00 Sputum - Endotrachea Suction/Ventilator Sputum Culture - Preliminary Stenotrophomon.(X.)Maltophilia Lactose Fermenting Neg Bacilli 03/09/19 23:14 Urine - Urine [place] Urine Culture - Final Klebsiella Pneumoniae - Esbl 03/09/19 22:19 Blood - Peripheral Venous Blood Culture - Preliminary Streptococcus Species 03/10/19 00:00 Urine - Urine - Catheterized Urine Culture - Final Lactose Fermenting Neg Bacilli Lactose Fermenting Neg Bacilli#2 Problem List - Problems (1) Atrial fibrillation with RVR Assessment[facility]Plan: [facility] for rate control Code(s): I48.91 - UNSPECIFIED ATRIAL FIBRILLATION (2) Bacteremia Assessment/Plan: -ID on board -WBC 10.7 -afebrile -03/09 BC positive Strep species, repeat BC neg -Ceftazidime and Vancomycin Code(s): R78.81 - BACTEREMIA (3) CHF (congestive heart failure) Assessment/Plan: -CXR shows left pulmonary pleural changes, right base changes have diminished -CXR 03/10/19 shows bibasilar pleural effusion -1L fluid restriction Code(s): I50.9 - HEART FAILURE, UNSPECIFIED (4) Hypernatremia Assessment/Plan: -resolved -Na 138 -monitor Na level Code(s): E87.0 - HYPEROSMOLALITY AND HYPERNATREMIA (5) Acute and chronic respiratory failure Assessment/Plan: -Pulm on board -Bronchodilators -mechanically ventilated -CXR shows left pulmonary pleural changes, right base changes have diminished -keep SpO2 >90% Code(s): J96.20 - ACUTE AND CHR RESP FAILURE, UNSP W HYPOXIA OR HYPERCAPNIA (6) CAD (coronary artery disease) Assessment/Plan: -Atorvastatin Code(s): I25.10 - ATHSCL HEART DISEASE OF [place] CORONARY ARTERY W/O ANG PCTRS Qualifiers: Coronary Disease-Associated Artery/Lesion type: [place] artery [place] vs. transplanted heart: [place] heart Associated angina: without angina Qualified Code(s): I25.10 - Atherosclerotic heart disease of [place] coronary artery without angina pectoris (7) CKD (chronic kidney disease) Assessment/Plan: -BUN/Cr 26.1/0.6 -monitor renal function -Renal on board Code(s): N18.9 - CHRONIC KIDNEY DISEASE, UNSPECIFIED Qualifiers: Chronic kidney disease stage: stage 2 (mild) Qualified Code(s): N18.2 - Chronic kidney disease, stage 2 (mild) (8) Diabetes mellitus Assessment/Plan: -BGM ACHS -Levemir BID -ISS Code(s): E11.9 - TYPE 2 DIABETES MELLITUS WITHOUT COMPLICATIONS Qualifiers: Diabetes mellitus type: type 2 (9) Sepsis Assessment/Plan: -ID on board -WBC 12.8 -afebrile -Ceftazidime and Vancomycin -UA shows 3+ leuks, 1+ blood, 2+ blood -UC positive for Klebsiella -Neck, Wound, and Sputum culture positive Microbiology 03/10/19 00:05 Neck Gram Stain - Final 03/10/19 00:05 Neck Wound Culture - Preliminary Enterobacter Cloacae Stenotrophomon.(X.)Maltophilia Diphtheroid/Corynebacterium Group D Strep Or Entero Coccus 03/10/19 05:00 Wound Gram Stain - Final 03/10/19 05:00 Wound Wound Culture - Preliminary Klebsiella Pneumoniae - Esbl Group D Strep Or Entero Coccus Presumptive Mssa (Pbp2a Neg) 03/12/19 05:20 Blood - Peripheral Venous Blood Culture - Preliminary NO GROWTH OBTAINED AFTER 24 HOURS, INCUBATION TO CONTINUE FOR 4 DAYS. 03/12/19 05:27 Blood - Peripheral Venous Blood Culture - Preliminary NO GROWTH OBTAINED AFTER 24 HOURS, INCUBATION TO CONTINUE FOR 4 DAYS. 03/09/19 22:19 Blood - Peripheral Venous Blood Culture - Preliminary Streptococcus Species 03/10/19 06:00 Sputum - Endotrachea Suction/Ventilator Gram Stain - Final 03/10/19 06:00 Sputum - Endotrachea Suction/Ventilator Sputum Culture - Preliminary Stenotrophomon.(X.)Maltophilia Lactose Fermenting Neg Bacilli 03/09/19 23:14 Urine - Urine [place] Urine Culture - Final Klebsiella Pneumoniae - Esbl 03/09/19 22:19 Blood - Peripheral Venous Blood Culture - Preliminary Streptococcus Species 03/10/19 00:00 Urine - Urine - Catheterized Urine Culture - Final Lactose Fermenting Neg Bacilli Lactose Fermenting Neg Bacilli#2 Code(s): A41.9 - SEPSIS, UNSPECIFIED ORGANISM Qualifiers: Sepsis type: sepsis due to unspecified organism Sepsis acute organ dysfunction status: without acute organ dysfunction Qualified Code(s): A41.9 - Sepsis, unspecified organism (10) Stage 4 skin ulcer of sacral region Assessment/Plan: -Vascular consult -turn q2h -offloading -Rectal tube and FC to avoid contamination of wound Code(s): L98.429 - NON-PRESSURE CHRONIC ULCER OF BACK WITH UNSPECIFIED SEVERITY (11) UTI (urinary tract infection) Assessment/Plan: -ID on board -WBC 12.8 -afebrile -UA shows 3+ leuks, 1+ blood, 2+ protein -UC positive for Klebsiella -Ceftazidime and Vancomycin Code(s): N39.0 - URINARY TRACT INFECTION, SITE NOT SPECIFIED Qualifiers: Urinary tract infection type: catheter-associated UTI Indwelling urinary catheter type: unspecified Encounter type: initial encounter Qualified Code( s): T83.511A - Infection and inflammatory reaction due to indwelling urethral catheter, initial encounter; N39.0 - Urinary tract infection, site not specified (12) Ventilator dependent Assessment/Plan: -Mechanically ventilated -Pulm on board Code(s): Z99.11 - DEPENDENCE ON RESPIRATOR [VENTILATOR] STATUS (13) Hyperlipidemia Assessment/Plan: -Atorvastatin Code(s): E78.5 - HYPERLIPIDEMIA, UNSPECIFIED Qualifiers: Hyperlipidemia type: pure hypercholesterolemia Qualified Code(s): E78.00 - Pure hypercholesterolemia, unspecified; E78.0 - Pure hypercholesterolemia Assessment/Plan see problem list dvt ppx
--- NOTE | 2019-03-13 08:37 | CONSULT ---
- Consultation REQUESTING PROVIDER: CONSULT REQUEST: We have been asked to surgically evaluate this patient for sacral decubitus PCP:Oni Wolfe HISTORY OF PRESENT ILLNESS: (obtained from EMR) 79yF w PMHx CAD, a fib on Eliquis, sick sinus syndrome s/p PPM, DM, HTN, COPD, GI bleed, CVA (RUE/LE paralysis, non verbal), chronic respiratory failure s/p trach, presenting from [facility] w fevers temp 100.6 and tachycardia to HR 150 at 845pm today. Given 650mg tylenol at 840pm. Last echo normal EF. Last seen on 02/09/19 for sepsis 2/2 UTI, CHF exacerbation, rectal tube inserted for chronic diarrhea/ sacral ulcer. Pt is non verbal at baseline but eye tracks and follows simple commands (hand squeeze). health care proxy reconfirmed full code. Past History - Past Medical History Allergies/Adverse Reactions: Allergies Allergy/AdvReac Type Severity Reaction Status Date / Time No Known Allergies Allergy Verified 02/09/19 18:58 Home Medications: Ambulatory Orders Apixaban [Eliquis -] 5 mg PO BID tablet 07/26/17 Ascorbic Acid [Vitamin C -] 500 mg PO DAILY 30 Days #60 tablet MDD 2 07/26/17 Atorvastatin Ca [Lipitor] 80 mg PO HS tablet 07/26/17 Ferrous Sulfate [Feosol] 325 mg PO DAILY@0800 ud 07/26/17 Fluoxetine HCl Liquid [Prozac 20mg/5mL Oral Solution -] 20 mg PO DAILY 04/28/18 Furosemide [Lasix -] 20 mg PO BID@0600,1400 04/28/18 Metoprolol Tartrate [Lopressor -] 75 mg PO TID 04/28/18 Lisinopril [Prinivil] 10 mg PO DAILY #30 tablet MDD 1 05/02/18 Ranolazine [Ranexa -] 500 mg PO BID tab 06/30/18 Albuterol 0.083% Nebulizer Sandrita [Ventolin 0.083% Nebulizer Soln -] 1 amp NEB Q4H PRN amp 02/23/19 Apixaban [Eliquis -] 5 mg PO BID tablet 02/23/19 Furosemide [Lasix -] 20 mg PO BID@0600,1400 tablet 02/23/19 Insulin Sliding Scale [Novolog Vial Sliding Scale -] 1 vial SQ ACHS units 02/23 Lisinopril [Prinivil] 10 mg PEG DAILY tablet 02/23/19 Nystatin Powder [Nystop Powder -] 1 applic TP TID applic 02/23/19 Acetaminophen [Tylenol .Regular Strength -] 650 mg PO Q6H PRN tablet 03/03/19 Ferrous Sulfate [Feosol] 300 mg GT BID udc 03/03/19 Insulin (Levemir) [Levemir Vial] 10 units SQ 0700,2200 units 03/03/19 Pantoprazole Suspension [Protonix Packets For Oral Suspension -] 40 mg PEG DAILY packet 03/03/19 Sodium Hypochlorite [Dakin's Solution 0.25% (Half-Strength) -] 1 applic TP DAILY ml 03/03/19 Anemia: Yes Asthma: No Cancer: No Cardiac Disorders: Yes (afib on coumadin, CABG, PPM) CVA: Yes (july 2017 right sided weakness, dysarthria) COPD: Yes (uses nc o2 @ night 1 lpm) CHF: Yes Dementia: No Diabetes: Yes GI Disorders: Yes (GI BLEED) Disorders: No HTN: Yes Hypercholesterolemia: Yes Liver Disease: No Seizures: No Thyroid Disease: No - Surgical History Abdominal Surgery: No Appendectomy: No Cardiac Surgery: Yes (pacemaker, CABG) Cholecystectomy: No Lung Surgery: No Neurologic Surgery: No Orthopedic Surgery: (BONE TUMOR REMOVAL 7YRS OLD) - Immunization History Immunization Up to Date: Yes - Psycho Social/Smoking Cessation Hx Smoking History: Unknown if ever smoked Have you smoked in the past 12 months: No If you are a former smoker, when did you quit?: 2007 Hx Alcohol Use: No Drug/Substance Use Hx: No Substance Use Type: None Hx Substance Use Treatment: No Review of Systems - Review of Systems Able to Perform ROS?: No *Physical Exam - Physical Exam General Appearance: NAD HEENT: EOMI, SHASHANK. negative: Neck: triple lumen in right IJ, Supple, trach in place Respiratory/Chest: trach to vent Cardiovascular: vitals stable Sacrum: stage 4 decubitus @[id number] with 1cm undermining, fibrinous slough seen at base. no active d/c no foul odor. Problem List - Problems (1) Sacral decubitus ulcer Assessment/Plan: Patient with large sacral decubitus will benefit from wound vac 1) wound vac placement today 2) Q2 positioning 3) ABX per medicine 4) Pain control. Evaluation and plan discussed with Dr Shore Code(s): L89.159 - PRESSURE ULCER OF SACRAL REGION, UNSPECIFIED STAGE
[2019-03-13 09:24] LABS: BASO % 0.3 % (0-2.0); EOS % 6.7 % (0-4.5); HEMATOCRIT 25.2 % (32.4-45.2); HEMOGLOBIN 7.8 GM/dL (10.7-15.3); MCH 25.2 pg (25.7-33.7); MCHC 30.9 g/dl (32.0-36.0); MEAN CELL VOLUME 81.6 fl (80-96); MEAN PLT VOLUME 10.2 fl (7.5-11.1); MONO % 5.9 % (3.8-10.2); NEUT % 76.1 % (42.8-82.8); PLATELET COUNT 347 K/MM3 (134-434); RBC 3.09 M/mm3 (3.60-5.2); RDW 19.1 % (11.6-15.6); WHITE BLOOD COUNT 10.7 K/mm3 (4.0-10.0)
--- NOTE | 2019-03-13 09:47 | PN ---
Progress Note, Physician History of Present Illness: Afebrile, WBC lower. Rate-controlled afib, nonverbal. - Current Medication List Current Medications: Active Medications Albuterol Sulfate (Ventolin 0.083% Nebulizer Soln -) 1 amp NEB Q4H PRN PRN Reason: SHORT OF BREATH/WHEEZING Apixaban (Eliquis -) 5 mg PEG BID [facility] Last Admin: 03/12/19 22:45 Dose: 5 mg Atorvastatin Calcium (Lipitor -) 80 mg PO HS [facility] Last Admin: 03/12/19 22:45 Dose: 80 mg Famotidine (Pepcid) 20 mg PEG BID [facility] Last Admin: 03/12/19 23:13 Dose: 20 mg Fluoxetine HCl (Prozac Oral Solution -) 20 mg PO DAILY [facility] Ceftazidime/Avibactam 2.5 gm/ (Dextrose) 250 mls @ 125 mls/hr IVPB Q8H-IV [facility]; Protocol Last Admin: 03/13/19 01:35 Dose: 125 mls/hr Vancomycin HCl (Vancomycin (Pre-Docked)) 1,000 mg in 250 mls @ 166.667 mls/hr IVPB Q12H [facility]; Protocol Last Admin: 03/12/19 22:45 Dose: 166.667 mls/hr Insulin Aspart (Novolog Vial Sliding Scale -) 1 vial SQ Q6HPO [facility]; Protocol Last Admin: 03/13/19 06:39 Dose: 6 units Insulin Detemir (Levemir Vial) 10 units SQ AM [facility] Metoprolol Tartrate (Lopressor -) 75 mg PO TID [facility] Last Admin: 03/13/19 06:39 Dose: 75 mg Metoprolol Tartrate (Lopressor Injection -) 5 mg IVPUSH Q4H PRN PRN Reason: HYPERTENSION Nystatin (Nystop Powder -) 1 applic TP TID [facility] Last Admin: 03/13/19 06:39 Dose: 1 applic - Objective Vital Signs: Vital Signs Temperature 98.3 F 03/13/19 06:00 Pulse Rate 88 03/13/19 06:00 Respiratory Rate 21 H 03/13/19 09:09 Blood Pressure 114/63 03/13/19 06:00 O2 Sat by Pulse Oximetry (%) 99 03/12/19 21:00 Constitutional: Yes: No Distress, Calm, Thin Neck: Yes: Other (Tracheostomy) Cardiovascular: Yes: Pulse Irregular Respiratory: Yes: Mechanically Ventilated, Rhonchi Gastrointestinal: Yes: Normal Bowel Sounds, Soft Edema: Yes Edema: LLE: Trace, RLE: Trace Labs: CBC, BMP 03/13/19 07:00 INR, PTT INR 1.61 (0.83-1.09) H 03/10/19 00:05 Problem List - Problems (1) Bacteremia Code(s): R78.81 - BACTEREMIA (2) Atrial fibrillation with RVR Code(s): I48.91 - UNSPECIFIED ATRIAL FIBRILLATION (3) Angiodysplasia of colon with hemorrhage Code(s): K55.21 - ANGIODYSPLASIA OF COLON WITH HEMORRHAGE (4) CAD (coronary artery disease) Code(s): I25.10 - ATHSCL HEART DISEASE OF [place] CORONARY ARTERY W/O ANG PCTRS Qualifiers: Coronary Disease-Associated Artery/Lesion type: [place] artery [place] vs. transplanted heart: [place] heart Associated angina: without angina Qualified Code(s): I25.10 - Atherosclerotic heart disease of [place] coronary artery without angina pectoris (5) CVA (cerebral vascular accident) Code(s): I63.9 - CEREBRAL INFARCTION, UNSPECIFIED Qualifiers: CVA mechanism: unspecified Qualified Code(s): I63.9 - Cerebral infarction, unspecified (6) Diabetes mellitus Code(s): E11.9 - TYPE 2 DIABETES MELLITUS WITHOUT COMPLICATIONS Qualifiers: Diabetes mellitus type: type 2 (7) Diastolic dysfunction Code(s): I51.89 - OTHER ILL-DEFINED HEART DISEASES (8) S/P mitral valve repair Code(s): Z98.890 - OTHER SPECIFIED POSTPROCEDURAL STATES (9) Sick sinus syndrome Code(s): I49.5 - SICK SINUS SYNDROME (10) Stage 4 skin ulcer of sacral region Code(s): L98.429 - NON-PRESSURE CHRONIC ULCER OF BACK WITH UNSPECIFIED SEVERITY (11) Tracheostomy care Code(s): Z43.0 - ENCOUNTER FOR ATTENTION TO TRACHEOSTOMY (12) UTI (urinary tract infection) Code(s): N39.0 - URINARY TRACT INFECTION, SITE NOT SPECIFIED Qualifiers: Urinary tract infection type: acute cystitis Hematuria presence: with hematuria Qualified Code(s): N30.01 - Acute cystitis with hematuria (13) Ventilator dependent Code(s): Z99.11 - DEPENDENCE ON RESPIRATOR [VENTILATOR] STATUS Assessment/Plan 02/18/2019 EGD revealing mild patchy antral erythema otherwise unremarkable. No obvious ulcers or angioectasias seen 04/30/2018 Echo: Normal LV size and fxn, severe TR RVSP 50-60 mmHg, mild MR EGD and colonoscopy in 07/2017 revealing gastritis, cecal AVM and four tubular adenomas 12/17/2016 reveal: 03/2009 acute systolic CHF and CT, R&LHc 90% distal OM1, 60% D1, preserved LV fxn, elevated LVEDP [place] severe posterior leaflet prolapse with severe MR->MV annuloplasty repair, afib, sinus arrest->PPM, CAD left alone. [facility] Echo: 06/28/16 normal biventricular fxn, COSMO, mod TR, MV ring Nuc stress 09/13/2016 Anterolateral ischemia/infarct SDS 3 EF 82%, abnl ecg changes 1. Clinical presentation suggests sepsis/septic shock due to source with UTI with GPC bacteremia 2. Acute on chronic diastolic failure 3. Respiratory failure (chronic) on mechanical ventilation s/p tracheostomy and PEG 4. CAD, angina pectoris 5. Permanent AF [id number] score of 9 on DOAC 6. Sick sinus syndrome s/p PPM 7. Post mitral valve repair 8. History of HTN 9. Hypercholesterolemia 10. COPD 11. Acute on CKD with hypernatremia 12. Anemia h/o GI Bleed 13. History of CVA 14. Sacral decubitus ulcer PLAN: 1. Complete antibiotic coverage per C&S 2. Metoprolol 75 tid to control HR via PEG and then additional IV Lopressor for added rate control as BP tolerates 3. Eliquis 5 mg BID, Lipitor 80 qd 4. Continue vent support O2 to keep SpO2 >90% 5. Off Pressor 6. Enteral feeds 7. DVT/GI prophylaxis 8. IV diuresis to keep even, replete K
[2019-03-13 09:51] LABS: ALBUMIN 1.8 g/dl (3.4-5.0); BILIRUBIN,TOTAL 0.3 mg/dL (0.2-1); BLOOD UREA NITROGEN 26.1 mg/dL (7-18); CALCIUM 8.2 mg/dL (8.5-10.1); CREATININE 0.6 mg/dL (0.55-1.3); MAGNESIUM 2.3 mg/dL (1.8-2.4); TOT PROT 5.3 g/dl (6.4-8.2)
[2019-03-13] MEDS ORDERED: PT OWN MED DRAWER 7, Y5N ONE ×5 (10:38→21:36)
[2019-03-13] MEDS: FLUoxetine HCL 20 MG/5 ML 120 BOTTLE PO SCH (10:55)
[2019-03-13] MEDS: FAMOTIDINE 40 MG/5 ML ORAL SUSPENSION PEG SCH ×2 (10:57→22:23)
[2019-03-13] MEDS: APIXABAN 5 MG TABLET PEG SCH ×2 (10:58→22:20)
[2019-03-13] MEDS: VANCOMYCIN 1 GRAM (PRE-DOCKED) 1,000 MG/250 ML BAG IVPB SCH ×2 (13:03→22:23)
--- NOTE | 2019-03-13 13:27 | PN ---
Progress Note (short form) - Note Progress Note: PULMONARY present VSS/afebrile Gen: vented, awake Heart: irregular Lung: scattered rhonchi Abd: soft, nontender Ext: + edema labs/meds/notes/images reviewed ASSESSMENT AND PLAN: Acute on Chronic Hypoxic Respiratory Failure UTI Gram Positive Bacteremia Decubitus Ulcers Septic Shock Atrial Fibrillation with RVR s/p PPM COPD HTN DM h/o GI Bleed h/o CVA Anemia - continue antibiotics - f/u cultures - strict isolation - rate control - continue anticoagulation - continue lasix - O2 to keep SpO2 >90% - continue assist control - enteral feeds - DVT/GI prophylaxis - continue to monitor on vent floor Amos ASTORGA MD
[2019-03-13 15:31] VITALS: BMI 26.5
--- NOTE | 2019-03-13 15:52 | PN ---
Progress Note (short form) - Note Progress Note: Renal follow up for CONOR Seen and examined at the bedside awake and alert on vent no over night events Vital Signs Temperature 98.3 F 03/13/19 10:00 Pulse Rate 90 03/13/19 10:00 Respiratory Rate 21 H 03/13/19 13:00 Blood Pressure 135/59 L 03/13/19 10:00 O2 Sat by Pulse Oximetry (%) 99 03/12/19 21:00 Intake & Output 03/10/19 03/11/19 03/12/19 03/13/19 23:59 23:59 23:59 23:59 Intake Total 4018 4524 3725 1100 Output Total 1260 1000 1700 900 Balance 2758 3524 2025 200 Weight 63.957 kg 65 kg 65.771 kg NAD awake on vent no JVD RRR soft NT/ND +trace Le and upper extremity edema CBC, BMP 03/13/19 07:00 03/13/19 07:00 Current Medications Albuterol Sulfate (Ventolin 0.083% Nebulizer Soln -) 1 amp NEB Q4H PRN PRN Reason: SHORT OF BREATH/WHEEZING Apixaban (Eliquis -) 5 mg PEG BID [facility] Last Admin: 03/13/19 10:58 Dose: 5 mg Atorvastatin Calcium (Lipitor -) 80 mg PO HS [facility] Last Admin: 03/12/19 22:45 Dose: 80 mg Famotidine (Pepcid) 20 mg PEG BID [facility] Last Admin: 03/13/19 10:57 Dose: 20 mg Fluoxetine HCl (Prozac Oral Solution -) 20 mg PO DAILY [facility] Last Admin: 03/13/19 10:55 Dose: 20 mg Ceftazidime/Avibactam 2.5 gm/ (Dextrose) 250 mls @ 125 mls/hr IVPB Q8H-IV [facility]; Protocol Last Admin: 03/13/19 10:54 Dose: 125 mls/hr Vancomycin HCl (Vancomycin (Pre-Docked)) 1,000 mg in 250 mls @ 166.667 mls/hr IVPB Q12H [facility]; Protocol Last Admin: 03/13/19 13:03 Dose: 166.667 mls/hr Insulin Aspart (Novolog Vial Sliding Scale -) 1 vial SQ Q6HPO [facility]; Protocol Last Admin: 03/13/19 11:28 Dose: 2 units Insulin Detemir (Levemir Vial) 10 units SQ AM [facility] Metoprolol Tartrate (Lopressor -) 75 mg PO TID [facility] Last Admin: 03/13/19 15:46 Dose: 75 mg Metoprolol Tartrate (Lopressor Injection -) 5 mg IVPUSH Q4H PRN PRN Reason: HYPERTENSION Nystatin (Nystop Powder -) 1 applic TP TID [facility] Last Admin: 03/13/19 15:47 Dose: 1 applic 79 year old woman wit history of Chronic Respiratory failure, CAD, Afib on eliquis, CVA (non-verbal), COPD, hypertension, DM who presented from the [place] with fever and noted to have CONOR, hypernatremia and metabolic alkalosis. 1. CONOR from volume depletion 2. Metabolic alkalosis 3. Hypernatrmeia 4. Sepsis from UTI 5. Acute on Chronic anemia renal function and acid/base status improved PRN Lasix as needed for volume mangement continue tube feeds with free water keep MAP > 65 continue empiric antibiotics as per ID Trend H/H, transfuse as per protocol enteral feeding as tolerated Will follow up as needed, please call if there are any questions or concerns. Tashi Aguirre DO
--- NOTE | 2019-03-13 19:36 | PN ---
Progress Note, Physician History of Present Illness: AWAKE, NON VERBAL TEMPS REMAIN DOWN AFEBRILE WBC IMPROVED WNL BC GEMELLA SP SPUTUM, URINE , WOUND C/S MIXED INCL CRE - Current Medication List Current Medications: Active Medications Albuterol Sulfate (Ventolin 0.083% Nebulizer Soln -) 1 amp NEB Q4H PRN PRN Reason: SHORT OF BREATH/WHEEZING Apixaban (Eliquis -) 5 mg PEG BID [facility] Last Admin: 03/13/19 10:58 Dose: 5 mg Atorvastatin Calcium (Lipitor -) 80 mg PO HS [facility] Last Admin: 03/12/19 22:45 Dose: 80 mg Famotidine (Pepcid) 20 mg PEG BID [facility] Last Admin: 03/13/19 10:57 Dose: 20 mg Fluoxetine HCl (Prozac Oral Solution -) 20 mg PO DAILY [facility] Last Admin: 03/13/19 10:55 Dose: 20 mg Ceftazidime/Avibactam 2.5 gm/ (Dextrose) 250 mls @ 125 mls/hr IVPB Q8H-IV [facility]; Protocol Last Admin: 03/13/19 17:38 Dose: 125 mls/hr Vancomycin HCl (Vancomycin (Pre-Docked)) 1,000 mg in 250 mls @ 166.667 mls/hr IVPB Q12H [facility]; Protocol Last Admin: 03/13/19 13:03 Dose: 166.667 mls/hr Insulin Aspart (Novolog Vial Sliding Scale -) 1 vial SQ Q6HPO [facility]; Protocol Last Admin: 03/13/19 17:29 Dose: 4 units Insulin Detemir (Levemir Vial) 10 units SQ AM [facility] Metoprolol Tartrate (Lopressor -) 75 mg PO TID [facility] Last Admin: 03/13/19 15:46 Dose: 75 mg Metoprolol Tartrate (Lopressor Injection -) 5 mg IVPUSH Q4H PRN PRN Reason: HYPERTENSION Nystatin (Nystop Powder -) 1 applic TP TID [facility] Last Admin: 03/13/19 15:47 Dose: 1 applic - Objective Vital Signs: Vital Signs Temperature 97.8 F 03/13/19 17:53 Pulse Rate 90 03/13/19 17:53 Respiratory Rate 22 H 03/13/19 17:53 Blood Pressure 140/60 03/13/19 17:53 O2 Sat by Pulse Oximetry (%) 99 03/12/19 21:00 Constitutional: Yes: No Distress Cardiovascular: Yes: Regular Rate and Rhythm, S1, S2 Respiratory: Yes: Diminished Gastrointestinal: Yes: Normal Bowel Sounds, Soft Edema: Yes Labs: CBC, BMP 03/13/19 07:00 03/13/19 07:00 INR, PTT INR 1.61 (0.83-1.09) H 03/10/19 00:05 Assessment/Plan SEPSIS/ SEPTIC SHOCK IMPROVED STREPTOCOCCAL BACTEREMIA UTI SACRAL DECUBITUS ULCER LACTIC ACIDOSIS DM CHRONIC RESP FAILURE HX CRE CONTINUE VANCOMYCIN / AVYCAZ CONTACT PRECAUTIONS
[2019-03-13] MEDS: ATORVASTATIN CA 80 MG TABLET (FP) PO SCH (22:21)
[2019-03-13] MEDS: INSULIN (LEVEMIR) 100 UNITS/ML UNITS SQ SCH (22:21)
[2019-03-14] MEDS ORDERED: PT OWN MED DRAWER 7, Y5N ONE ×4 (02:52→17:41)
[2019-03-14] MEDS: CEFTAZIDIME/AVIBACTAM 2.5 GM in DEXTROSE 5%-WATER - 250 ML IVPB SCH ×3 (02:54→18:03)
[2019-03-14] MEDS: METOPROLOL TARTRATE 25 MG TABLET (FP) PO SCH ×3 (07:14→22:09)
[2019-03-14] MEDS: INSULIN (LEVEMIR) 100 UNITS/ML UNITS SQ SCH (07:14)
[2019-03-14] MEDS: NYSTATIN POWDER 100,000 UNITS/GM - 15 GM TOPICAL POWDER TP SCH ×3 (07:15→22:10)
[2019-03-14] MEDS: INSULIN SLIDING SCALE (NOVOLOG) 1 VIAL SQ SCH ×4 (07:15→23:31)
[2019-03-14 08:21] LABS: HEMATOCRIT 26.1 % (32.4-45.2); MCH 25.1 pg (25.7-33.7); MCHC 30.8 g/dl (32.0-36.0); MEAN CELL VOLUME 81.6 fl (80-96); MEAN PLT VOLUME 9.9 fl (7.5-11.1); PLATELET COUNT 364 K/MM3 (134-434); RDW 19.1 % (11.6-15.6); WHITE BLOOD COUNT 12.8 K/mm3 (4.0-10.0)
[2019-03-14 08:48] LABS: ALBUMIN 1.7 g/dl (3.4-5.0); BILIRUBIN,TOTAL 0.4 mg/dL (0.2-1); BLOOD UREA NITROGEN 20.3 mg/dL (7-18); CALCIUM 8.8 mg/dL (8.5-10.1); CREATININE 0.5 mg/dL (0.55-1.3); POTASSIUM 4.1 mmol/L (3.5-5.1); TOT PROT 5.4 g/dl (6.4-8.2)
--- NOTE | 2019-03-14 09:47 | PN ---
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 Spouse is at bedside and history was obtained from him and prior medical record. U/A reveals leukocyte esterase and elevated WBC with bacteria suggestive of UTI. CXR revealed small pleural effusion and patient was found to be hypotensive intially and with lactic acid. - Current Medication List Current Medications: Active Medications Albuterol Sulfate (Ventolin 0.083% Nebulizer Soln -) 1 amp NEB Q4H PRN PRN Reason: SHORT OF BREATH/WHEEZING Apixaban (Eliquis -) 5 mg PEG BID [facility] Last Admin: 03/13/19 22:20 Dose: 5 mg Atorvastatin Calcium (Lipitor -) 80 mg PO HS [facility] Last Admin: 03/13/19 22:21 Dose: 80 mg Famotidine (Pepcid) 20 mg PEG BID [facility] Last Admin: 03/13/19 22:23 Dose: 20 mg Fluoxetine HCl (Prozac Oral Solution -) 20 mg PO DAILY [facility] Last Admin: 03/13/19 10:55 Dose: 20 mg Ceftazidime/Avibactam 2.5 gm/ (Dextrose) 250 mls @ 125 mls/hr IVPB Q8H-IV [facility]; Protocol Last Admin: 03/14/19 02:54 Dose: 125 mls/hr Vancomycin HCl (Vancomycin (Pre-Docked)) 1,000 mg in 250 mls @ 166.667 mls/hr IVPB Q12H [facility]; Protocol Last Admin: 03/13/19 22:23 Dose: 166.667 mls/hr Insulin Aspart (Novolog Vial Sliding Scale -) 1 vial SQ Q6HPO [facility]; Protocol Last Admin: 03/14/19 07:15 Dose: 4 units Insulin Detemir (Levemir Vial) 10 units SQ AM [facility] Last Admin: 03/14/19 07:14 Dose: 10 unit Metoprolol Tartrate (Lopressor -) 75 mg PO TID [facility] Last Admin: 03/14/19 07:14 Dose: 75 mg Metoprolol Tartrate (Lopressor Injection -) 5 mg IVPUSH Q4H PRN PRN Reason: HYPERTENSION Nystatin (Nystop Powder -) 1 applic TP TID [facility] Last Admin: 03/14/19 07:15 Dose: 1 applic - Objective Vital Signs: Vital Signs Temperature 98.2 F 03/14/19 06:00 Pulse Rate 85 03/14/19 06:00 Respiratory Rate 22 H 03/14/19 06:00 Blood Pressure 133/66 03/14/19 06:00 O2 Sat by Pulse Oximetry (%) 100 03/13/19 21:05 Eyes: Yes: WNL, Conjunctiva Clear, EOM Intact HENT: Yes: WNL, Atraumatic, Normocephalic Neck: Yes: WNL, Supple, Trachea Midline Cardiovascular: Yes: Pulse Irregular Respiratory: Yes: Diminished, Mechanically Ventilated Gastrointestinal: Yes: WNL, Normal Bowel Sounds Genitourinary: Yes: WNL Musculoskeletal: Yes: WNL Extremities: Yes: WNL Edema: No Integumentary: Yes: WNL ...Motor Strength: WNL Psychiatric: Yes: WNL Labs: CBC, BMP 03/14/19 07:32 03/14/19 06:00 INR, PTT INR 1.61 (0.83-1.09) H 03/10/19 00:05 Problem List - Problems (1) Atrial fibrillation with RVR Code(s): I48.91 - UNSPECIFIED ATRIAL FIBRILLATION (2) Bacteremia Code(s): R78.81 - BACTEREMIA (3) CHF (congestive heart failure) Code(s): I50.9 - HEART FAILURE, UNSPECIFIED (4) Hypernatremia Code(s): E87.0 - HYPEROSMOLALITY AND HYPERNATREMIA (5) A-fib Code(s): I48.91 - UNSPECIFIED ATRIAL FIBRILLATION Qualifiers: Atrial fibrillation type: persistent (6) Abdominal gas pain Code(s): R14.1 - GAS PAIN (7) Abdominal pain Code(s): R10.9 - UNSPECIFIED ABDOMINAL PAIN (8) Abnormal LFTs Code(s): R94.5 - ABNORMAL RESULTS OF LIVER FUNCTION STUDIES (9) Abnormal urine Code(s): R82.90 - UNSPECIFIED ABNORMAL FINDINGS IN URINE (10) Accident due to mechanical fall without injury Code(s): W19.XXXA - UNSPECIFIED FALL, INITIAL ENCOUNTER Qualifiers: Encounter type: initial encounter Qualified Code(s): W19.XXXA - Unspecified fall, initial encounter (11) Acute and chronic respiratory failure Code(s): J96.20 - ACUTE AND CHR RESP FAILURE, UNSP W HYPOXIA OR HYPERCAPNIA (12) Acute hemorrhagic cystitis Code(s): N30.01 - ACUTE CYSTITIS WITH HEMATURIA (13) Anemia Code(s): D64.9 - ANEMIA, UNSPECIFIED Qualifiers: Anemia type: unspecified type Qualified Code(s): D64.9 - Anemia, unspecified (14) Angiodysplasia of colon with hemorrhage Code(s): K55.21 - ANGIODYSPLASIA OF COLON WITH HEMORRHAGE (15) Bleeding from left ear Code(s): H92.22 - OTORRHAGIA, LEFT EAR (16) Brain bleed Code(s): I61.9 - NONTRAUMATIC INTRACEREBRAL HEMORRHAGE, UNSPECIFIED (17) CAD (coronary artery disease) Code(s): I25.10 - ATHSCL HEART DISEASE OF [place] CORONARY ARTERY W/O ANG PCTRS Qualifiers: Coronary Disease-Associated Artery/Lesion type: [place] artery [place] vs. transplanted heart: [place] heart Associated angina: without angina Qualified Code(s): I25.10 - Atherosclerotic heart disease of [place] coronary artery without angina pectoris (18) CHF exacerbation Code(s): I50.9 - HEART FAILURE, UNSPECIFIED Qualifiers: Heart failure type: unspecified Qualified Code(s): I50.9 - Heart failure, unspecified (19) CKD (chronic kidney disease) Code(s): N18.9 - CHRONIC KIDNEY DISEASE, UNSPECIFIED Qualifiers: Chronic kidney disease stage: stage 2 (mild) Qualified Code(s): N18.2 - Chronic kidney disease, stage 2 (mild) (20) CVA (cerebral vascular accident) Code(s): I63.9 - CEREBRAL INFARCTION, UNSPECIFIED Qualifiers: CVA mechanism: embolism (21) CVA (cerebral vascular accident) Code(s): I63.9 - CEREBRAL INFARCTION, UNSPECIFIED Qualifiers: CVA mechanism: unspecified Qualified Code(s): I63.9 - Cerebral infarction, unspecified (22) Chest pain Code(s): R07.9 - CHEST PAIN, UNSPECIFIED Qualifiers: Chest pain type: unspecified Qualified Code(s): R07.9 - Chest pain, unspecified (23) Colon adenomas Code(s): D12.6 - BENIGN NEOPLASM OF COLON, UNSPECIFIED (24) Constipation Code(s): K59.00 - CONSTIPATION, UNSPECIFIED (25) Cyst of left kidney Code(s): N28.1 - CYST OF KIDNEY, ACQUIRED (26) Demand ischemia Code(s): I24.8 - OTHER FORMS OF ACUTE ISCHEMIC HEART DISEASE (27) Diabetes mellitus Code(s): E11.9 - TYPE 2 DIABETES MELLITUS WITHOUT COMPLICATIONS Qualifiers: Diabetes mellitus type: type 2 (28) Diarrhea Code(s): R19.7 - DIARRHEA, UNSPECIFIED (29) Diastolic dysfunction Code(s): I51.89 - OTHER ILL-DEFINED HEART DISEASES (30) Diverticulosis Code(s): K57.90 - DVRTCLOS OF INTEST, PART UNSP, W/O PERF OR ABSCESS W/O BLEED (31) Elevated troponin I level Code(s): R74.8 - ABNORMAL LEVELS OF OTHER SERUM ENZYMES (32) Fall Code(s): W19.XXXA - UNSPECIFIED FALL, INITIAL ENCOUNTER (33) Fall from chair Code(s): W07.XXXA - FALL FROM CHAIR, INITIAL ENCOUNTER Qualifiers: Encounter type: initial encounter Qualified Code(s): W07.XXXA - Fall from chair, initial encounter (34) GIB (gastrointestinal bleeding) Code(s): K92.2 - GASTROINTESTINAL HEMORRHAGE, UNSPECIFIED Qualifiers: GI bleed type/associated pathology: unspecified gastrointestinal hemorrhage type Qualified Code(s): K92.2 - Gastrointestinal hemorrhage, unspecified (35) Gross hematuria Code(s): R31.0 - GROSS HEMATURIA (36) Guaiac + stool Code(s): R19.5 - OTHER FECAL ABNORMALITIES (37) Hemoglobin decreased Code(s): R71.0 - PRECIPITOUS DROP IN HEMATOCRIT (38) Hepatomegaly Code(s): R16.0 - HEPATOMEGALY, NOT ELSEWHERE CLASSIFIED (39) Hypokalemia Code(s): E87.6 - HYPOKALEMIA (40) NSTEMI (non-ST elevated myocardial infarction) Code(s): I21.4 - NON-ST ELEVATION (NSTEMI) MYOCARDIAL INFARCTION (41) NSTEMI (non-ST elevated myocardial infarction) Code(s): I21.4 - NON-ST ELEVATION (NSTEMI) MYOCARDIAL INFARCTION (42) Pleural effusion Code(s): J90 - PLEURAL EFFUSION, NOT ELSEWHERE CLASSIFIED (43) Pleural effusion Code(s): J90 - PLEURAL EFFUSION, NOT ELSEWHERE CLASSIFIED (44) Pneumonia Code(s): J18.9 - PNEUMONIA, UNSPECIFIED ORGANISM Qualifiers: Pneumonia type: due to unspecified organism Laterality: right Lung location: middle lobe of lung Qualified Code(s): J18.9 - Pneumonia, unspecified organism (45) Pre-operative cardiovascular examination Code(s): Z01.810 - ENCOUNTER FOR PREPROCEDURAL CARDIOVASCULAR EXAMINATION (46) S/P mitral valve repair Code(s): Z98.890 - OTHER SPECIFIED POSTPROCEDURAL STATES (47) Sacral decubitus ulcer Code(s): L89.159 - PRESSURE ULCER OF SACRAL REGION, UNSPECIFIED STAGE (48) Sepsis Code(s): A41.9 - SEPSIS, UNSPECIFIED ORGANISM Qualifiers: Sepsis type: sepsis due to unspecified organism Sepsis acute organ dysfunction status: without acute organ dysfunction Qualified Code(s): A41.9 - Sepsis, unspecified organism (49) Severe pulmonary arterial systolic hypertension Code(s): I27.21 - SECONDARY PULMONARY ARTERIAL HYPERTENSION (50) Sick sinus syndrome Code(s): I49.5 - SICK SINUS SYNDROME (51) Sigmoid diverticulosis Code(s): K57.30 - DVRTCLOS OF LG INT W/O PERFORATION OR ABSCESS W/O BLEEDING (52) Splenic infarct Code(s): D73.5 - INFARCTION OF SPLEEN (53) Stage 4 skin ulcer of sacral region Code(s): L98.429 - NON-PRESSURE CHRONIC ULCER OF BACK WITH UNSPECIFIED SEVERITY (54) TIA (transient ischemic attack) Code(s): G45.9 - TRANSIENT CEREBRAL ISCHEMIC ATTACK, UNSPECIFIED (55) Tachycardia Code(s): R00.0 - TACHYCARDIA, UNSPECIFIED (56) Tracheostomy care Code(s): Z43.0 - ENCOUNTER FOR ATTENTION TO TRACHEOSTOMY (57) Troponin level elevated Code(s): R74.8 - ABNORMAL LEVELS OF OTHER SERUM ENZYMES (58) Tympanic membrane perforation Code(s): H72.90 - UNSP PERFORATION OF TYMPANIC MEMBRANE, UNSPECIFIED EAR (59) UTI (urinary tract infection) Code(s): N39.0 - URINARY TRACT INFECTION, SITE NOT SPECIFIED Qualifiers: Urinary tract infection type: acute cystitis Hematuria presence: with hematuria Qualified Code(s): N30.01 - Acute cystitis with hematuria (60) UTI (urinary tract infection) Code(s): N39.0 - URINARY TRACT INFECTION, SITE NOT SPECIFIED Qualifiers: Urinary tract infection type: catheter-associated UTI Indwelling urinary catheter type: unspecified Encounter type: initial encounter Qualified Code( s): T83.511A - Infection and inflammatory reaction due to indwelling urethral catheter, initial encounter; N39.0 - Urinary tract infection, site not specified (61) Ventilator dependent Code(s): Z99.11 - DEPENDENCE ON RESPIRATOR [VENTILATOR] STATUS (62) Weakness Code(s): R53.1 - WEAKNESS (63) Abnormal stress test Code(s): R94.39 - ABNORMAL RESULT OF OTHER CARDIOVASCULAR FUNCTION STUDY (64) Atrial fibrillation Code(s): I48.91 - UNSPECIFIED ATRIAL FIBRILLATION Qualifiers: Atrial fibrillation type: permanent Qualified Code(s): I48.21 - Permanent atrial fibrillation (65) CAD (coronary artery disease) Code(s): I25.10 - ATHSCL HEART DISEASE OF [place] CORONARY ARTERY W/O ANG PCTRS Qualifiers: Coronary Disease-Associated Artery/Lesion type: [place] artery [place] vs. transplanted heart: [place] heart Associated angina: without angina Qualified Code(s): I25.10 - Atherosclerotic heart disease of [place] coronary artery without angina pectoris (66) COPD (chronic obstructive pulmonary disease) Code(s): J44.9 - CHRONIC OBSTRUCTIVE PULMONARY DISEASE, UNSPECIFIED (67) Diabetes Code(s): E11.9 - TYPE 2 DIABETES MELLITUS WITHOUT COMPLICATIONS (68) Diabetes mellitus Code(s): E11.9 - TYPE 2 DIABETES MELLITUS WITHOUT COMPLICATIONS Qualifiers: Diabetes mellitus type: type 2 Diabetes mellitus exterminator helper termite insulin use: without exterminator helper termite use Diabetes mellitus complication status: without complication Qualified Code(s): E11.9 - Type 2 diabetes mellitus without complications (69) H/O mitral valve replacement Code(s): Z95.2 - PRESENCE OF PROSTHETIC HEART VALVE (70) HTN (hypertension) Code(s): I10 - ESSENTIAL (PRIMARY) HYPERTENSION Qualifiers: Hypertension type: essential hypertension Qualified Code(s): I10 - Essential (primary) hypertension (71) Hyperlipidemia Code(s): E78.5 - HYPERLIPIDEMIA, UNSPECIFIED Qualifiers: Hyperlipidemia type: pure hypercholesterolemia Qualified Code(s): E78.00 - Pure hypercholesterolemia, unspecified; E78.0 - Pure hypercholesterolemia (72) Lung nodule Code(s): R91.1 - SOLITARY PULMONARY NODULE (73) Lung nodule Code(s): R91.1 - SOLITARY PULMONARY NODULE (74) Pacemaker Code(s): Z95.0 - PRESENCE OF CARDIAC PACEMAKER Assessment/Plan 02/18/2019 EGD revealing mild patchy antral erythema otherwise unremarkable. No obvious ulcers or angioectasias seen 04/30/2018 Echo: Normal LV size and fxn, severe TR RVSP 50-60 mmHg, mild MR EGD and colonoscopy in 07/2017 revealing gastritis, cecal AVM and four tubular adenomas 12/17/2016 reveal: 03/2009 acute systolic CHF and NV, R&LHc 90% distal OM1, 60% D1, preserved LV fxn, elevated LVEDP BULMARO severe posterior leaflet prolapse with severe MR->MV annuloplasty repair, afib, sinus arrest->PPM, CAD left alone. [facility] Echo: 06/28/16 normal biventricular fxn, COSMO, mod TR, MV ring Nuc stress 09/13/2016 Anterolateral ischemia/infarct SDS 3 EF 82%, abnl ecg changes 1. Clinical presentation suggests sepsis/septic shock due to source with UTI with GPC bacteremia 2. Acute on chronic diastolic failure 3. Respiratory failure (chronic) on mechanical ventilation s/p tracheostomy and PEG 4. CAD, angina pectoris 5. Permanent AF [id number] score of 9 on DOAC 6. Sick sinus syndrome s/p PPM 7. Post mitral valve repair 8. History of HTN 9. Hypercholesterolemia 10. COPD 11. Acute on CKD with hypernatremia 12. Anemia h/o GI Bleed 13. History of CVA 14. Sacral decubitus ulcer PLAN: 1. Antibiotic coverage per C&S 2. Metoprolol 75 tid to control HR via PEG and then additional IV Lopressor for added rate control as BP tolerates 3. Eliquis 5 mg BID, Lipitor 80 qd 4. Continue vent support O2 to keep SpO2 >90% 5. Off Pressor 6. Enteral feeds 7. DVT/GI prophylaxis 8. IV diuresis to keep even, replete K Coverage for
[2019-03-14] MEDS: APIXABAN 5 MG TABLET PEG SCH ×2 (09:57→22:09)
[2019-03-14] MEDS: FLUoxetine HCL 20 MG/5 ML 120 BOTTLE PO SCH (09:57)
[2019-03-14] MEDS: FAMOTIDINE 40 MG/5 ML ORAL SUSPENSION PEG SCH ×2 (09:58→22:10)
--- NOTE | 2019-03-14 11:24 | PN ---
Progress Note, Physician - Current Medication List Current Medications: Active Medications Albuterol Sulfate (Ventolin 0.083% Nebulizer Soln -) 1 amp NEB Q4H PRN PRN Reason: SHORT OF BREATH/WHEEZING Apixaban (Eliquis -) 5 mg PEG BID [facility] Last Admin: 03/14/19 09:57 Dose: 5 mg Atorvastatin Calcium (Lipitor -) 80 mg PO HS [facility] Last Admin: 03/13/19 22:21 Dose: 80 mg Famotidine (Pepcid) 20 mg PEG BID [facility] Last Admin: 03/14/19 09:58 Dose: 20 mg Fluoxetine HCl (Prozac Oral Solution -) 20 mg PO DAILY [facility] Last Admin: 03/14/19 09:57 Dose: 20 mg Ceftazidime/Avibactam 2.5 gm/ (Dextrose) 250 mls @ 125 mls/hr IVPB Q8H-IV [facility]; Protocol Last Admin: 03/14/19 09:59 Dose: 125 mls/hr Vancomycin HCl (Vancomycin (Pre-Docked)) 1,000 mg in 250 mls @ 166.667 mls/hr IVPB Q12H [facility]; Protocol Last Admin: 03/13/19 22:23 Dose: 166.667 mls/hr Insulin Aspart (Novolog Vial Sliding Scale -) 1 vial SQ Q6HPO [facility]; Protocol Last Admin: 03/14/19 07:15 Dose: 4 units Insulin Detemir (Levemir Vial) 10 units SQ AM [facility] Last Admin: 03/14/19 07:14 Dose: 10 unit Metoprolol Tartrate (Lopressor -) 75 mg PO TID [facility] Last Admin: 03/14/19 07:14 Dose: 75 mg Metoprolol Tartrate (Lopressor Injection -) 5 mg IVPUSH Q4H PRN PRN Reason: HYPERTENSION Nystatin (Nystop Powder -) 1 applic TP TID [facility] Last Admin: 03/14/19 07:15 Dose: 1 applic - Objective Vital Signs: Vital Signs Temperature 98.5 F 03/14/19 09:56 Pulse Rate 80 03/14/19 09:56 Respiratory Rate 22 H 03/14/19 09:56 Blood Pressure 121/46 L 03/14/19 09:56 O2 Sat by Pulse Oximetry (%) 100 03/13/19 21:05 Cardiovascular: Yes: S1, S2 Respiratory: Yes: Mechanically Ventilated Gastrointestinal: Yes: Normal Bowel Sounds, Soft Labs: CBC, BMP 03/14/19 07:32 03/14/19 06:00 INR, PTT INR 1.61 (0.83-1.09) H 03/10/19 00:05 Problem List - Problems (1) Sepsis Code(s): A41.9 - SEPSIS, UNSPECIFIED ORGANISM Qualifiers: Sepsis type: sepsis due to unspecified organism Sepsis acute organ dysfunction status: without acute organ dysfunction Qualified Code(s): A41.9 - Sepsis, unspecified organism (2) CHF (congestive heart failure) Code(s): I50.9 - HEART FAILURE, UNSPECIFIED (3) Atrial fibrillation with RVR Code(s): I48.91 - UNSPECIFIED ATRIAL FIBRILLATION (4) Acute and chronic respiratory failure Code(s): J96.20 - ACUTE AND CHR RESP FAILURE, UNSP W HYPOXIA OR HYPERCAPNIA Assessment/Plan - Problems (1) Atrial fibrillation with RVR Assessment/Plan: -Cardiology on board -Eliquis -Metoprolol for rate control Code(s): I48.91 - UNSPECIFIED ATRIAL FIBRILLATION (2) Bacteremia Assessment/Plan: -ID on board -WBC 10.7 -afebrile -03/09 BC positive Strep species, repeat BC neg -Ceftazidime and Vancomycin Code(s): R78.81 - BACTEREMIA (3) CHF (congestive heart failure) Assessment/Plan: -CXR shows left pulmonary pleural changes, right base changes have diminished -CXR 03/10/19 shows bibasilar pleural effusion -1L fluid restriction Code(s): I50.9 - HEART FAILURE, UNSPECIFIED (4) Hypernatremia Assessment/Plan: -resolved -Na 138 -monitor Na level Code(s): E87.0 - HYPEROSMOLALITY AND HYPERNATREMIA (5) Acute and chronic respiratory failure Assessment/Plan: -Pulm on board -Bronchodilators -mechanically ventilated -CXR shows left pulmonary pleural changes, right base changes have diminished -keep SpO2 >90% Code(s): J96.20 - ACUTE AND CHR RESP FAILURE, UNSP W HYPOXIA OR HYPERCAPNIA (6) CAD (coronary artery disease) Assessment/Plan: -Atorvastatin Code(s): I25.10 - ATHSCL HEART DISEASE OF [place] CORONARY ARTERY W/O ANG PCTRS Qualifiers: Coronary Disease-Associated Artery/Lesion type: [place] artery [place] vs. transplanted heart: [place] heart Associated angina: without angina Qualified Code(s): I25.10 - Atherosclerotic heart disease of [place] coronary artery without angina pectoris (7) CKD (chronic kidney disease) Assessment/Plan: -BUN/Cr 26.1/0.6 -monitor renal function -Renal on board Code(s): N18.9 - CHRONIC KIDNEY DISEASE, UNSPECIFIED Qualifiers: Chronic kidney disease stage: stage 2 (mild) Qualified Code(s): N18.2 - Chronic kidney disease, stage 2 (mild) (8) Diabetes mellitus Assessment/Plan: -BGM ACHS -Levemir BID -ISS Code(s): E11.9 - TYPE 2 DIABETES MELLITUS WITHOUT COMPLICATIONS Qualifiers: Diabetes mellitus type: type 2 (9) Sepsis Assessment/Plan: -ID on board -WBC 12.8 -afebrile -Ceftazidime and Vancomycin Code(s): A41.9 - SEPSIS, UNSPECIFIED ORGANISM Qualifiers: Sepsis type: sepsis due to unspecified organism Sepsis acute organ dysfunction status: without acute organ dysfunction Qualified Code(s): A41.9 - Sepsis, unspecified organism (10) Stage 4 skin ulcer of sacral region Assessment/Plan: -Vascular consult -turn q2h -offloading -Rectal tube and FC to avoid contamination of wound Code(s): L98.429 - NON-PRESSURE CHRONIC ULCER OF BACK WITH UNSPECIFIED SEVERITY (11) UTI (urinary tract infection) Assessment/Plan: -ID on board -WBC 12.8 -afebrile -UA shows 3+ leuks, 1+ blood, 2+ protein -UC positive for Klebsiella -Ceftazidime and Vancomycin Code(s): N39.0 - URINARY TRACT INFECTION, SITE NOT SPECIFIED Qualifiers: Urinary tract infection type: catheter-associated UTI Indwelling urinary catheter type: unspecified Encounter type: initial encounter Qualified Code( s): T83.511A - Infection and inflammatory reaction due to indwelling urethral catheter, initial encounter; N39.0 - Urinary tract infection, site not specified (12) Ventilator dependent Assessment/Plan: -Mechanically ventilated -Pulm on board Code(s): Z99.11 - DEPENDENCE ON RESPIRATOR [VENTILATOR] STATUS (13) Hyperlipidemia Assessment/Plan: -Atorvastatin Code(s): E78.5 - HYPERLIPIDEMIA, UNSPECIFIED Qualifiers: Hyperlipidemia type: pure hypercholesterolemia Qualified Code(s): E78.00 - Pure hypercholesterolemia, unspecified; E78.0 - Pure hypercholesterolemia
--- NOTE | 2019-03-14 12:24 | PN ---
Progress Note (short form) - Note Progress Note: PULMONARY 12/350/45/5 SPO2 100% VSS/afebrile Gen: vented, awake Heart: irregular Lung: scattered rhonchi Abd: soft, nontender Ext: + edema labs/meds/notes/images reviewed ASSESSMENT AND PLAN: Acute on Chronic Hypoxic Respiratory Failure UTI Gram Positive Bacteremia Decubitus Ulcers Septic Shock Atrial Fibrillation with RVR s/p PPM COPD HTN DM h/o GI Bleed h/o CVA Anemia - continue antibiotics - f/u cultures - strict isolation - rate control - continue anticoagulation - continue lasix - O2 to keep SpO2 >90% - continue assist control - enteral feeds - DVT/GI prophylaxis - continue to monitor on vent floor Amos ASTORGA MD
[2019-03-14] MEDS: VANCOMYCIN 1 GRAM (PRE-DOCKED) 1,000 MG/250 ML BAG IVPB SCH (14:13)
--- NOTE | 2019-03-14 17:18 | PN ---
Progress Note, Physician History of Present Illness: Pt seen and examined at bedside. No new events. She remains vented. - Current Medication List Current Medications: Active Medications Albuterol Sulfate (Ventolin 0.083% Nebulizer Soln -) 1 amp NEB Q4H PRN PRN Reason: SHORT OF BREATH/WHEEZING Apixaban (Eliquis -) 5 mg PEG BID [facility] Last Admin: 03/14/19 09:57 Dose: 5 mg Atorvastatin Calcium (Lipitor -) 80 mg PO HS [facility] Last Admin: 03/13/19 22:21 Dose: 80 mg Famotidine (Pepcid) 20 mg PEG BID [facility] Last Admin: 03/14/19 09:58 Dose: 20 mg Fluoxetine HCl (Prozac Oral Solution -) 20 mg PO DAILY [facility] Last Admin: 03/14/19 09:57 Dose: 20 mg Ceftazidime/Avibactam 2.5 gm/ (Dextrose) 250 mls @ 125 mls/hr IVPB Q8H-IV [facility]; Protocol Last Admin: 03/14/19 09:59 Dose: 125 mls/hr Insulin Aspart (Novolog Vial Sliding Scale -) 1 vial SQ Q6HPO [facility]; Protocol Last Admin: 03/14/19 13:29 Dose: 4 units Insulin Detemir (Levemir Vial) 10 units SQ AM [facility] Last Admin: 03/14/19 07:14 Dose: 10 unit Metoprolol Tartrate (Lopressor -) 75 mg PO TID [facility] Last Admin: 03/14/19 14:21 Dose: 75 mg Metoprolol Tartrate (Lopressor Injection -) 5 mg IVPUSH Q4H PRN PRN Reason: HYPERTENSION Nystatin (Nystop Powder -) 1 applic TP TID [facility] Last Admin: 03/14/19 14:21 Dose: 1 applic - Objective Vital Signs: Vital Signs Temperature 98.2 F 03/14/19 14:18 Pulse Rate 87 03/14/19 14:18 Respiratory Rate 20 03/14/19 16:17 Blood Pressure 147/70 03/14/19 14:18 O2 Sat by Pulse Oximetry (%) 100 03/13/19 21:05 Constitutional: Yes: Calm HENT: Yes: Other (trache) Cardiovascular: Yes: S1, S2 Respiratory: Yes: Mechanically Ventilated Gastrointestinal: Yes: Normal Bowel Sounds, Soft Genitourinary: Yes: [place] Present Musculoskeletal: Yes: Muscle Weakness Edema: LLE: Trace, RLE: Trace Neurological: Yes: Confusion, Lethargy Labs: CBC, BMP 03/14/19 07:32 03/14/19 06:00 INR, PTT INR 1.61 (0.83-1.09) H 03/10/19 00:05 Assessment/Plan Current Medications Generic Name Dose Route Start Last Admin Trade Name Freq PRN Reason Stop Dose Admin Albuterol Sulfate 1 amp 03/12/19 21:56 Ventolin 0.083% Nebulizer Soln - NEB Q4H PRN SHORT OF BREATH/WHEEZING Apixaban 5 mg 03/12/19 22:00 03/14/19 09:57 Eliquis - PEG 5 mg BID [facility] Administration Atorvastatin Calcium 80 mg 03/12/19 22:00 03/13/19 22:21 Lipitor - PO 80 mg HS [facility] Administration Famotidine 20 mg 03/12/19 22:00 03/14/19 09:58 Pepcid PEG 20 mg BID [facility] Administration Fluoxetine HCl 20 mg 03/13/19 10:00 03/14/19 09:57 Prozac Oral Solution - PO 20 mg DAILY [facility] Administration Ceftazidime/Avibactam 2.5 gm/ 250 mls @ 125 mls/hr 03/13/19 02:00 03/14/19 09 :59 Dextrose IVPB 125 mls/hr Q8H-IV [facility] Administration Protocol Insulin Aspart 1 vial 03/13/19 00:00 03/14/19 13:29 Novolog Vial Sliding Scale - SQ 4 units Q6HPO [facility] Administration Protocol Insulin Detemir 10 units 03/13/19 22:00 03/14/19 07:14 Levemir Vial SQ 10 unit AM [facility] Administration Metoprolol Tartrate 75 mg 03/12/19 22:00 03/14/19 14:21 Lopressor - PO 75 mg TID [facility] Administration Metoprolol Tartrate 5 mg 03/12/19 21:56 Lopressor Injection - IVPUSH Q4H PRN HYPERTENSION Nystatin 1 applic 03/12/19 22:00 03/14/19 14:21 Nystop Powder - TP 1 applic TID [facility] Administration 1. CONOR 2. Metabolic alkalosis 3. Hypernatrmeia 4. Sepsis from UTI 5. Acute on Chronic anemia Plan - renal function stable - sodium stable - monitor dianna, maintaine map greater than 65 - lasix as needed - cont feeds
[2019-03-14] MEDS ORDERED: INSULIN (NOVOLOG) ASPART 100 UNITS/ML 10ML VIAL ONE ×2 (18:36→20:54)
[2019-03-14] MEDS ORDERED: INSULIN (LEVEMIR) 100 UNITS/ML UNITS SQ ONE (20:54)
[2019-03-14] MEDS: ATORVASTATIN CA 80 MG TABLET (FP) PO SCH (22:08)
[2019-03-15] MEDS: CEFTAZIDIME/AVIBACTAM 2.5 GM in DEXTROSE 5%-WATER - 250 ML IVPB SCH ×3 (03:30→18:24)
[2019-03-15] MEDS: INSULIN SLIDING SCALE (NOVOLOG) 1 VIAL SQ SCH ×3 (06:55→18:24)
[2019-03-15] MEDS: METOPROLOL TARTRATE 25 MG TABLET (FP) PO SCH ×3 (06:56→21:20)
[2019-03-15] MEDS: NYSTATIN POWDER 100,000 UNITS/GM - 15 GM TOPICAL POWDER TP SCH ×3 (06:57→21:23)
[2019-03-15] MEDS: INSULIN (LEVEMIR) 100 UNITS/ML UNITS SQ SCH (06:58)
--- NOTE | 2019-03-15 07:54 | PN ---
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 Spouse is at bedside and history was obtained from him and prior medical record. U/A reveals leukocyte esterase and elevated WBC with bacteria suggestive of UTI. CXR revealed small pleural effusion and patient was found to be hypotensive intially and with lactic acid. - Current Medication List Current Medications: Active Medications Albuterol Sulfate (Ventolin 0.083% Nebulizer Soln -) 1 amp NEB Q4H PRN PRN Reason: SHORT OF BREATH/WHEEZING Apixaban (Eliquis -) 5 mg PEG BID [facility] Last Admin: 03/14/19 22:09 Dose: 5 mg Atorvastatin Calcium (Lipitor -) 80 mg PO HS [facility] Last Admin: 03/14/19 22:08 Dose: 80 mg Famotidine (Pepcid) 20 mg PEG BID [facility] Last Admin: 03/14/19 22:10 Dose: 20 mg Fluoxetine HCl (Prozac Oral Solution -) 20 mg PO DAILY [facility] Last Admin: 03/14/19 09:57 Dose: 20 mg Ceftazidime/Avibactam 2.5 gm/ (Dextrose) 250 mls @ 125 mls/hr IVPB Q8H-IV [facility]; Protocol Last Admin: 03/15/19 03:30 Dose: 125 mls/hr Insulin Aspart (Novolog Vial Sliding Scale -) 1 vial SQ Q6HPO [facility]; Protocol Last Admin: 03/15/19 06:55 Dose: 4 units Insulin Detemir (Levemir Vial) 10 units SQ AM [facility] Last Admin: 03/15/19 06:58 Dose: 10 unit Metoprolol Tartrate (Lopressor -) 75 mg PO TID [facility] Last Admin: 03/15/19 06:56 Dose: 75 mg Metoprolol Tartrate (Lopressor Injection -) 5 mg IVPUSH Q4H PRN PRN Reason: HYPERTENSION Nystatin (Nystop Powder -) 1 applic TP TID [facility] Last Admin: 03/15/19 06:57 Dose: 1 applic - Objective Vital Signs: Vital Signs Temperature 98.4 F 03/15/19 07:00 Pulse Rate 91 H 03/15/19 07:00 Respiratory Rate 18 03/15/19 07:00 Blood Pressure 127/63 03/15/19 07:00 O2 Sat by Pulse Oximetry (%) 100 03/15/19 04:02 Eyes: Yes: WNL, Conjunctiva Clear, EOM Intact HENT: Yes: WNL, Atraumatic, Normocephalic Neck: Yes: WNL, Supple, Trachea Midline Cardiovascular: Yes: WNL, Regular Rate and Rhythm Respiratory: Yes: WNL, Diminished, Mechanically Ventilated Gastrointestinal: Yes: WNL, Normal Bowel Sounds Genitourinary: Yes: WNL Musculoskeletal: Yes: WNL Extremities: Yes: WNL Edema: No Integumentary: Yes: WNL ...Motor Strength: WNL Psychiatric: Yes: WNL Labs: CBC, BMP 03/14/19 07:32 03/14/19 06:00 INR, PTT INR 1.61 (0.83-1.09) H 03/10/19 00:05 Problem List - Problems (1) Atrial fibrillation with RVR Code(s): I48.91 - UNSPECIFIED ATRIAL FIBRILLATION (2) Bacteremia Code(s): R78.81 - BACTEREMIA (3) CHF (congestive heart failure) Code(s): I50.9 - HEART FAILURE, UNSPECIFIED (4) Hypernatremia Code(s): E87.0 - HYPEROSMOLALITY AND HYPERNATREMIA (5) A-fib Code(s): I48.91 - UNSPECIFIED ATRIAL FIBRILLATION Qualifiers: Atrial fibrillation type: persistent (6) Abdominal gas pain Code(s): R14.1 - GAS PAIN (7) Abdominal pain Code(s): R10.9 - UNSPECIFIED ABDOMINAL PAIN (8) Abnormal LFTs Code(s): R94.5 - ABNORMAL RESULTS OF LIVER FUNCTION STUDIES (9) Abnormal urine Code(s): R82.90 - UNSPECIFIED ABNORMAL FINDINGS IN URINE (10) Accident due to mechanical fall without injury Code(s): W19.XXXA - UNSPECIFIED FALL, INITIAL ENCOUNTER Qualifiers: Encounter type: initial encounter Qualified Code(s): W19.XXXA - Unspecified fall, initial encounter (11) Acute and chronic respiratory failure Code(s): J96.20 - ACUTE AND CHR RESP FAILURE, UNSP W HYPOXIA OR HYPERCAPNIA (12) Acute hemorrhagic cystitis Code(s): N30.01 - ACUTE CYSTITIS WITH HEMATURIA (13) Anemia Code(s): D64.9 - ANEMIA, UNSPECIFIED Qualifiers: Anemia type: unspecified type Qualified Code(s): D64.9 - Anemia, unspecified (14) Angiodysplasia of colon with hemorrhage Code(s): K55.21 - ANGIODYSPLASIA OF COLON WITH HEMORRHAGE (15) Bleeding from left ear Code(s): H92.22 - OTORRHAGIA, LEFT EAR (16) Brain bleed Code(s): I61.9 - NONTRAUMATIC INTRACEREBRAL HEMORRHAGE, UNSPECIFIED (17) CAD (coronary artery disease) Code(s): I25.10 - ATHSCL HEART DISEASE OF [place] CORONARY ARTERY W/O ANG PCTRS Qualifiers: Coronary Disease-Associated Artery/Lesion type: [place] artery [place] vs. transplanted heart: [place] heart Associated angina: without angina Qualified Code(s): I25.10 - Atherosclerotic heart disease of [place] coronary artery without angina pectoris (18) CHF exacerbation Code(s): I50.9 - HEART FAILURE, UNSPECIFIED Qualifiers: Heart failure type: unspecified Qualified Code(s): I50.9 - Heart failure, unspecified (19) CKD (chronic kidney disease) Code(s): N18.9 - CHRONIC KIDNEY DISEASE, UNSPECIFIED Qualifiers: Chronic kidney disease stage: stage 2 (mild) Qualified Code(s): N18.2 - Chronic kidney disease, stage 2 (mild) (20) CVA (cerebral vascular accident) Code(s): I63.9 - CEREBRAL INFARCTION, UNSPECIFIED Qualifiers: CVA mechanism: embolism (21) CVA (cerebral vascular accident) Code(s): I63.9 - CEREBRAL INFARCTION, UNSPECIFIED Qualifiers: CVA mechanism: unspecified Qualified Code(s): I63.9 - Cerebral infarction, unspecified (22) Chest pain Code(s): R07.9 - CHEST PAIN, UNSPECIFIED Qualifiers: Chest pain type: unspecified Qualified Code(s): R07.9 - Chest pain, unspecified (23) Colon adenomas Code(s): D12.6 - BENIGN NEOPLASM OF COLON, UNSPECIFIED (24) Constipation Code(s): K59.00 - CONSTIPATION, UNSPECIFIED (25) Cyst of left kidney Code(s): N28.1 - CYST OF KIDNEY, ACQUIRED (26) Demand ischemia Code(s): I24.8 - OTHER FORMS OF ACUTE ISCHEMIC HEART DISEASE (27) Diabetes mellitus Code(s): E11.9 - TYPE 2 DIABETES MELLITUS WITHOUT COMPLICATIONS Qualifiers: Diabetes mellitus type: type 2 (28) Diarrhea Code(s): R19.7 - DIARRHEA, UNSPECIFIED (29) Diastolic dysfunction Code(s): I51.89 - OTHER ILL-DEFINED HEART DISEASES (30) Diverticulosis Code(s): K57.90 - DVRTCLOS OF INTEST, PART UNSP, W/O PERF OR ABSCESS W/O BLEED (31) Elevated troponin I level Code(s): R74.8 - ABNORMAL LEVELS OF OTHER SERUM ENZYMES (32) Fall Code(s): W19.XXXA - UNSPECIFIED FALL, INITIAL ENCOUNTER (33) Fall from chair Code(s): W07.XXXA - FALL FROM CHAIR, INITIAL ENCOUNTER Qualifiers: Encounter type: initial encounter Qualified Code(s): W07.XXXA - Fall from chair, initial encounter (34) GIB (gastrointestinal bleeding) Code(s): K92.2 - GASTROINTESTINAL HEMORRHAGE, UNSPECIFIED Qualifiers: GI bleed type/associated pathology: unspecified gastrointestinal hemorrhage type Qualified Code(s): K92.2 - Gastrointestinal hemorrhage, unspecified (35) Gross hematuria Code(s): R31.0 - GROSS HEMATURIA (36) Guaiac + stool Code(s): R19.5 - OTHER FECAL ABNORMALITIES (37) Hemoglobin decreased Code(s): R71.0 - PRECIPITOUS DROP IN HEMATOCRIT (38) Hepatomegaly Code(s): R16.0 - HEPATOMEGALY, NOT ELSEWHERE CLASSIFIED (39) Hypokalemia Code(s): E87.6 - HYPOKALEMIA (40) NSTEMI (non-ST elevated myocardial infarction) Code(s): I21.4 - NON-ST ELEVATION (NSTEMI) MYOCARDIAL INFARCTION (41) NSTEMI (non-ST elevated myocardial infarction) Code(s): I21.4 - NON-ST ELEVATION (NSTEMI) MYOCARDIAL INFARCTION (42) Pleural effusion Code(s): J90 - PLEURAL EFFUSION, NOT ELSEWHERE CLASSIFIED (43) Pleural effusion Code(s): J90 - PLEURAL EFFUSION, NOT ELSEWHERE CLASSIFIED (44) Pneumonia Code(s): J18.9 - PNEUMONIA, UNSPECIFIED ORGANISM Qualifiers: Pneumonia type: due to unspecified organism Laterality: right Lung location: middle lobe of lung Qualified Code(s): J18.9 - Pneumonia, unspecified organism (45) Pre-operative cardiovascular examination Code(s): Z01.810 - ENCOUNTER FOR PREPROCEDURAL CARDIOVASCULAR EXAMINATION (46) S/P mitral valve repair Code(s): Z98.890 - OTHER SPECIFIED POSTPROCEDURAL STATES (47) Sacral decubitus ulcer Code(s): L89.159 - PRESSURE ULCER OF SACRAL REGION, UNSPECIFIED STAGE (48) Sepsis Code(s): A41.9 - SEPSIS, UNSPECIFIED ORGANISM Qualifiers: Sepsis type: sepsis due to unspecified organism Sepsis acute organ dysfunction status: without acute organ dysfunction Qualified Code(s): A41.9 - Sepsis, unspecified organism (49) Severe pulmonary arterial systolic hypertension Code(s): I27.21 - SECONDARY PULMONARY ARTERIAL HYPERTENSION (50) Sick sinus syndrome Code(s): I49.5 - SICK SINUS SYNDROME (51) Sigmoid diverticulosis Code(s): K57.30 - DVRTCLOS OF LG INT W/O PERFORATION OR ABSCESS W/O BLEEDING (52) Splenic infarct Code(s): D73.5 - INFARCTION OF SPLEEN (53) Stage 4 skin ulcer of sacral region Code(s): L98.429 - NON-PRESSURE CHRONIC ULCER OF BACK WITH UNSPECIFIED SEVERITY (54) TIA (transient ischemic attack) Code(s): G45.9 - TRANSIENT CEREBRAL ISCHEMIC ATTACK, UNSPECIFIED (55) Tachycardia Code(s): R00.0 - TACHYCARDIA, UNSPECIFIED (56) Tracheostomy care Code(s): Z43.0 - ENCOUNTER FOR ATTENTION TO TRACHEOSTOMY (57) Troponin level elevated Code(s): R74.8 - ABNORMAL LEVELS OF OTHER SERUM ENZYMES (58) Tympanic membrane perforation Code(s): H72.90 - UNSP PERFORATION OF TYMPANIC MEMBRANE, UNSPECIFIED EAR (59) UTI (urinary tract infection) Code(s): N39.0 - URINARY TRACT INFECTION, SITE NOT SPECIFIED Qualifiers: Urinary tract infection type: acute cystitis Hematuria presence: with hematuria Qualified Code(s): N30.01 - Acute cystitis with hematuria (60) UTI (urinary tract infection) Code(s): N39.0 - URINARY TRACT INFECTION, SITE NOT SPECIFIED Qualifiers: Urinary tract infection type: catheter-associated UTI Indwelling urinary catheter type: unspecified Encounter type: initial encounter Qualified Code( s): T83.511A - Infection and inflammatory reaction due to indwelling urethral catheter, initial encounter; N39.0 - Urinary tract infection, site not specified (61) Ventilator dependent Code(s): Z99.11 - DEPENDENCE ON RESPIRATOR [VENTILATOR] STATUS (62) Weakness Code(s): R53.1 - WEAKNESS (63) Abnormal stress test Code(s): R94.39 - ABNORMAL RESULT OF OTHER CARDIOVASCULAR FUNCTION STUDY (64) Atrial fibrillation Code(s): I48.91 - UNSPECIFIED ATRIAL FIBRILLATION Qualifiers: Atrial fibrillation type: permanent Qualified Code(s): I48.21 - Permanent atrial fibrillation (65) CAD (coronary artery disease) Code(s): I25.10 - ATHSCL HEART DISEASE OF [place] CORONARY ARTERY W/O ANG PCTRS Qualifiers: Coronary Disease-Associated Artery/Lesion type: [place] artery [place] vs. transplanted heart: [place] heart Associated angina: without angina Qualified Code(s): I25.10 - Atherosclerotic heart disease of [place] coronary artery without angina pectoris (66) COPD (chronic obstructive pulmonary disease) Code(s): J44.9 - CHRONIC OBSTRUCTIVE PULMONARY DISEASE, UNSPECIFIED (67) Diabetes Code(s): E11.9 - TYPE 2 DIABETES MELLITUS WITHOUT COMPLICATIONS (68) Diabetes mellitus Code(s): E11.9 - TYPE 2 DIABETES MELLITUS WITHOUT COMPLICATIONS Qualifiers: Diabetes mellitus type: type 2 Diabetes mellitus terminal superintendent insulin use: without terminal superintendent use Diabetes mellitus complication status: without complication Qualified Code(s): E11.9 - Type 2 diabetes mellitus without complications (69) H/O mitral valve replacement Code(s): Z95.2 - PRESENCE OF PROSTHETIC HEART VALVE (70) HTN (hypertension) Code(s): I10 - ESSENTIAL (PRIMARY) HYPERTENSION Qualifiers: Hypertension type: essential hypertension Qualified Code(s): I10 - Essential (primary) hypertension (71) Hyperlipidemia Code(s): E78.5 - HYPERLIPIDEMIA, UNSPECIFIED Qualifiers: Hyperlipidemia type: pure hypercholesterolemia Qualified Code(s): E78.00 - Pure hypercholesterolemia, unspecified; E78.0 - Pure hypercholesterolemia (72) Lung nodule Code(s): R91.1 - SOLITARY PULMONARY NODULE (73) Lung nodule Code(s): R91.1 - SOLITARY PULMONARY NODULE (74) Pacemaker Code(s): Z95.0 - PRESENCE OF CARDIAC PACEMAKER Assessment/Plan 02/18/2019 EGD revealing mild patchy antral erythema otherwise unremarkable. No obvious ulcers or angioectasias seen 04/30/2018 Echo: Normal LV size and fxn, severe TR RVSP 50-60 mmHg, mild MR EGD and colonoscopy in 07/2017 revealing gastritis, cecal AVM and four tubular adenomas 12/17/2016 reveal: 03/2009 acute systolic CHF and DE, R&LHc 90% distal OM1, 60% D1, preserved LV fxn, elevated LVEDP BUL[place] severe posterior leaflet prolapse with severe MR->MV annuloplasty repair, afib, sinus arrest->PPM, CAD left alone. [facility] Echo: 06/28/16 normal biventricular fxn, COSMO, mod TR, MV ring Nuc stress 09/13/2016 Anterolateral ischemia/infarct SDS 3 EF 82%, abnl ecg changes 1. Clinical presentation suggests sepsis/septic shock due to source with UTI with GPC bacteremia 2. Acute on chronic diastolic failure 3. Respiratory failure (chronic) on mechanical ventilation s/p tracheostomy and PEG 4. CAD, angina pectoris 5. Permanent AF [id number] score of 9 on DOAC 6. Sick sinus syndrome s/p PPM 7. Post mitral valve repair 8. History of HTN 9. Hypercholesterolemia 10. COPD 11. Acute on CKD with hypernatremia 12. Anemia h/o GI Bleed 13. History of CVA 14. Sacral decubitus ulcer PLAN: 1. Antibiotic coverage per C&S 2. Metoprolol 75 tid to control HR via PEG and then additional IV Lopressor for added rate control as BP tolerates 3. Eliquis 5 mg BID, Lipitor 80 qd 4. Continue vent support O2 to keep SpO2 >90% 5. Off Pressor 6. Enteral feeds 7. DVT/GI prophylaxis 8. IV diuresis to keep even, replete K Coverage for
[2019-03-15] MEDS ORDERED: PT OWN MED DRAWER 7, Y5N ONE ×3 (10:12→21:15)
[2019-03-15] MEDS: FLUoxetine HCL 20 MG/5 ML 120 BOTTLE PO SCH (10:31)
[2019-03-15] MEDS: APIXABAN 5 MG TABLET PEG SCH ×2 (10:31→21:20)
[2019-03-15] MEDS: FAMOTIDINE 40 MG/5 ML ORAL SUSPENSION PEG SCH ×2 (10:32→21:21)
[2019-03-15] MEDS ORDERED: INSULIN (NOVOLOG) ASPART 100 UNITS/ML 10ML VIAL ONE (11:17)
--- NOTE | 2019-03-15 11:17 | PN ---
Progress Note, Physician - Current Medication List Current Medications: Active Medications Albuterol Sulfate (Ventolin 0.083% Nebulizer Soln -) 1 amp NEB Q4H PRN PRN Reason: SHORT OF BREATH/WHEEZING Apixaban (Eliquis -) 5 mg PEG BID [facility] Last Admin: 03/15/19 10:31 Dose: 5 mg Atorvastatin Calcium (Lipitor -) 80 mg PO HS [facility] Last Admin: 03/14/19 22:08 Dose: 80 mg Famotidine (Pepcid) 20 mg PEG BID [facility] Last Admin: 03/15/19 10:32 Dose: 20 mg Fluoxetine HCl (Prozac Oral Solution -) 20 mg PO DAILY [facility] Last Admin: 03/15/19 10:31 Dose: 20 mg Ceftazidime/Avibactam 2.5 gm/ (Dextrose) 250 mls @ 125 mls/hr IVPB Q8H-IV [facility]; Protocol Last Admin: 03/15/19 10:31 Dose: 125 mls/hr Insulin Aspart (Novolog Vial Sliding Scale -) 1 vial SQ Q6HPO [facility]; Protocol Last Admin: 03/15/19 06:55 Dose: 4 units Insulin Detemir (Levemir Vial) 10 units SQ AM [facility] Last Admin: 03/15/19 06:58 Dose: 10 unit Metoprolol Tartrate (Lopressor -) 75 mg PO TID [facility] Last Admin: 03/15/19 06:56 Dose: 75 mg Metoprolol Tartrate (Lopressor Injection -) 5 mg IVPUSH Q4H PRN PRN Reason: HYPERTENSION Nystatin (Nystop Powder -) 1 applic TP TID [facility] Last Admin: 03/15/19 06:57 Dose: 1 applic - Objective Vital Signs: Vital Signs Temperature 98.4 F 03/15/19 07:00 Pulse Rate 80 03/15/19 10:30 Respiratory Rate 18 03/15/19 10:30 Blood Pressure 129/59 L 03/15/19 10:30 O2 Sat by Pulse Oximetry (%) 99 03/15/19 08:30 Cardiovascular: Yes: S1, S2 Respiratory: Yes: Mechanically Ventilated, Rhonchi Labs: CBC, BMP 03/14/19 07:32 03/14/19 06:00 INR, PTT INR 1.61 (0.83-1.09) H 03/10/19 00:05 Problem List - Problems (1) Sepsis Code(s): A41.9 - SEPSIS, UNSPECIFIED ORGANISM Qualifiers: Sepsis type: sepsis due to unspecified organism Sepsis acute organ dysfunction status: without acute organ dysfunction Qualified Code(s): A41.9 - Sepsis, unspecified organism (2) CHF (congestive heart failure) Code(s): I50.9 - HEART FAILURE, UNSPECIFIED (3) Atrial fibrillation with RVR Code(s): I48.91 - UNSPECIFIED ATRIAL FIBRILLATION (4) Acute and chronic respiratory failure Code(s): J96.20 - ACUTE AND CHR RESP FAILURE, UNSP W HYPOXIA OR HYPERCAPNIA Assessment/Plan - Problems (1) Atrial fibrillation with RVR Assessment/Plan: -Cardiology on board -Eliquis -Metoprolol for rate control Code(s): I48.91 - UNSPECIFIED ATRIAL FIBRILLATION (2) Bacteremia Assessment/Plan: -ID on board -WBC 10.7 -afebrile -03/09 BC positive Strep species, repeat BC neg -Ceftazidime and Vancomycin Code(s): R78.81 - BACTEREMIA (3) CHF (congestive heart failure) Assessment/Plan: -CXR shows left pulmonary pleural changes, right base changes have diminished -CXR 03/10/19 shows bibasilar pleural effusion -1L fluid restriction Code(s): I50.9 - HEART FAILURE, UNSPECIFIED (4) Hypernatremia Assessment/Plan: -resolved -Na 138 -monitor Na level Code(s): E87.0 - HYPEROSMOLALITY AND HYPERNATREMIA (5) Acute and chronic respiratory failure Assessment/Plan: -Pulm on board -Bronchodilators -mechanically ventilated -CXR shows left pulmonary pleural changes, right base changes have diminished -keep SpO2 >90% Code(s): J96.20 - ACUTE AND CHR RESP FAILURE, UNSP W HYPOXIA OR HYPERCAPNIA (6) CAD (coronary artery disease) Assessment/Plan: -Atorvastatin Code(s): I25.10 - ATHSCL HEART DISEASE OF [place] CORONARY ARTERY W/O ANG PCTRS Qualifiers: Coronary Disease-Associated Artery/Lesion type: [place] artery [place] vs. transplanted heart: [place] heart Associated angina: without angina Qualified Code(s): I25.10 - Atherosclerotic heart disease of [place] coronary artery without angina pectoris (7) CKD (chronic kidney disease) Assessment/Plan: -BUN/Cr 26.1/0.6 -monitor renal function -Renal on board Code(s): N18.9 - CHRONIC KIDNEY DISEASE, UNSPECIFIED Qualifiers: Chronic kidney disease stage: stage 2 (mild) Qualified Code(s): N18.2 - Chronic kidney disease, stage 2 (mild) (8) Diabetes mellitus Assessment/Plan: -BGM ACHS -Levemir BID -ISS Code(s): E11.9 - TYPE 2 DIABETES MELLITUS WITHOUT COMPLICATIONS Qualifiers: Diabetes mellitus type: type 2 (9) Sepsis Assessment/Plan: -ID on board -WBC 12.8 -afebrile -Ceftazidime and Vancomycin Code(s): A41.9 - SEPSIS, UNSPECIFIED ORGANISM Qualifiers: Sepsis type: sepsis due to unspecified organism Sepsis acute organ dysfunction status: without acute organ dysfunction Qualified Code(s): A41.9 - Sepsis, unspecified organism (10) Stage 4 skin ulcer of sacral region Assessment/Plan: -Vascular consult -turn q2h -offloading -Rectal tube and FC to avoid contamination of wound Code(s): L98.429 - NON-PRESSURE CHRONIC ULCER OF BACK WITH UNSPECIFIED SEVERITY (11) UTI (urinary tract infection) Assessment/Plan: -ID on board -WBC 12.8 -afebrile -UA shows 3+ leuks, 1+ blood, 2+ protein -UC positive for Klebsiella -Ceftazidime and Vancomycin Code(s): N39.0 - URINARY TRACT INFECTION, SITE NOT SPECIFIED Qualifiers: Urinary tract infection type: catheter-associated UTI Indwelling urinary catheter type: unspecified Encounter type: initial encounter Qualified Code( s): T83.511A - Infection and inflammatory reaction due to indwelling urethral catheter, initial encounter; N39.0 - Urinary tract infection, site not specified (12) Ventilator dependent Assessment/Plan: -Mechanically ventilated -Pulm on board Code(s): Z99.11 - DEPENDENCE ON RESPIRATOR [VENTILATOR] STATUS (13) Hyperlipidemia Assessment/Plan: -Atorvastatin Code(s): E78.5 - HYPERLIPIDEMIA, UNSPECIFIED Qualifiers: Hyperlipidemia type: pure hypercholesterolemia Qualified Code(s): E78.00 - Pure hypercholesterolemia, unspecified; E78.0 - Pure hypercholesterolemia
--- NOTE | 2019-03-15 19:42 | PN ---
Progress Note, Physician History of Present Illness: Pt seen and examined at bedside. She is awake and appears comfortable. - Current Medication List Current Medications: Active Medications Albuterol Sulfate (Ventolin 0.083% Nebulizer Soln -) 1 amp NEB Q4H PRN PRN Reason: SHORT OF BREATH/WHEEZING Apixaban (Eliquis -) 5 mg PEG BID [facility] Last Admin: 03/15/19 10:31 Dose: 5 mg Atorvastatin Calcium (Lipitor -) 80 mg PO HS [facility] Last Admin: 03/14/19 22:08 Dose: 80 mg Famotidine (Pepcid) 20 mg PEG BID [facility] Last Admin: 03/15/19 10:32 Dose: 20 mg Fluoxetine HCl (Prozac Oral Solution -) 20 mg PO DAILY [facility] Last Admin: 03/15/19 10:31 Dose: 20 mg Furosemide (Lasix Oral Solution -) 40 mg PEG ONCE ONE Stop: 03/15/19 19:39 Ceftazidime/Avibactam 2.5 gm/ (Dextrose) 250 mls @ 125 mls/hr IVPB Q8H-IV [facility]; Protocol Last Admin: 03/15/19 18:24 Dose: 125 mls/hr Insulin Aspart (Novolog Vial Sliding Scale -) 1 vial SQ Q6HPO [facility]; Protocol Last Admin: 03/15/19 18:24 Dose: 2 units Insulin Detemir (Levemir Vial) 10 units SQ AM [facility] Last Admin: 03/15/19 06:58 Dose: 10 unit Metoprolol Tartrate (Lopressor -) 75 mg PO TID [facility] Last Admin: 03/15/19 14:30 Dose: 75 mg Metoprolol Tartrate (Lopressor Injection -) 5 mg IVPUSH Q4H PRN PRN Reason: HYPERTENSION Nystatin (Nystop Powder -) 1 applic TP TID [facility] Last Admin: 03/15/19 14:30 Dose: 1 applic - Objective Vital Signs: Vital Signs Temperature 97.4 F L 03/15/19 16:30 Pulse Rate 82 03/15/19 16:30 Respiratory Rate 19 03/15/19 16:30 Blood Pressure 140/66 03/15/19 16:30 O2 Sat by Pulse Oximetry (%) 97 03/15/19 11:20 Constitutional: Yes: Calm Neck: Yes: Other (trache) Cardiovascular: Yes: S1, S2 Respiratory: Yes: Mechanically Ventilated Gastrointestinal: Yes: Soft Genitourinary: Yes: [place] Present Edema: Yes Edema: LUE: 1+, RUE: 1+, LLE: 1+, RLE: 1+ Neurological: Yes: Other (awake) Labs: CBC, BMP 03/14/19 07:32 03/14/19 06:00 INR, PTT INR 1.61 (0.83-1.09) H 03/10/19 00:05 Assessment/Plan Current Medications Generic Name Dose Route Start Last Admin Trade Name Freq PRN Reason Stop Dose Admin Albuterol Sulfate 1 amp 03/12/19 21:56 Ventolin 0.083% Nebulizer Soln - NEB Q4H PRN SHORT OF BREATH/WHEEZING Apixaban 5 mg 03/12/19 22:00 03/15/19 10:31 Eliquis - PEG 5 mg BID [facility] Administration Atorvastatin Calcium 80 mg 03/12/19 22:00 03/14/19 22:08 Lipitor - PO 80 mg HS [facility] Administration Famotidine 20 mg 03/12/19 22:00 03/15/19 10:32 Pepcid PEG 20 mg BID [facility] Administration Fluoxetine HCl 20 mg 03/13/19 10:00 03/15/19 10:31 Prozac Oral Solution - PO 20 mg DAILY [facility] Administration Furosemide 40 mg 03/15/19 19:38 Lasix Oral Solution - PEG 03/15/19 19:39 ONCE ONE Ceftazidime/Avibactam 2.5 gm/ 250 mls @ 125 mls/hr 03/13/19 02:00 03/15/19 18 :24 Dextrose IVPB 125 mls/hr Q8H-IV [facility] Administration Protocol Insulin Aspart 1 vial 03/13/19 00:00 03/15/19 18:24 Novolog Vial Sliding Scale - SQ 2 units Q6HPO [facility] Administration Protocol Insulin Detemir 10 units 03/13/19 22:00 03/15/19 06:58 Levemir Vial SQ 10 unit AM [facility] Administration Metoprolol Tartrate 75 mg 03/12/19 22:00 03/15/19 14:30 Lopressor - PO 75 mg TID [facility] Administration Metoprolol Tartrate 5 mg 03/12/19 21:56 Lopressor Injection - IVPUSH Q4H PRN HYPERTENSION Nystatin 1 applic 03/12/19 22:00 03/15/19 14:30 Nystop Powder - TP 1 applic TID [facility] Administration Impression 1. CONOR 2. Metabolic alkalosis 3. Hypernatrmeia 4. Sepsis from UTI 5. Acute on Chronic anemia 6. edema Plan - will give a dose of lasix - cont vent support - monitor bp - discussed with - cont feeds
[2019-03-15] MEDS ORDERED: FUROSEMIDE 40 MG/5 ML UNIT-DOSE CUP PEG ONE (21:00)
[2019-03-15] MEDS: ATORVASTATIN CA 80 MG TABLET (FP) PO SCH (21:21)
[2019-03-16] MEDS: INSULIN SLIDING SCALE (NOVOLOG) 1 VIAL SQ SCH ×4 (00:14→18:07)
[2019-03-16] MEDS ORDERED: PT OWN MED DRAWER 7, Y5N ONE ×6 (02:43→20:01)
[2019-03-16] MEDS: CEFTAZIDIME/AVIBACTAM 2.5 GM in DEXTROSE 5%-WATER - 250 ML IVPB SCH ×3 (03:07→17:48)
[2019-03-16] MEDS: METOPROLOL TARTRATE 25 MG TABLET (FP) PO SCH ×3 (05:36→22:32)
[2019-03-16] MEDS: NYSTATIN POWDER 100,000 UNITS/GM - 15 GM TOPICAL POWDER TP SCH ×3 (05:45→22:32)
[2019-03-16] MEDS: INSULIN (LEVEMIR) 100 UNITS/ML UNITS SQ SCH (06:04)
[2019-03-16 08:35] LABS: ALBUMIN 1.4 g/dl (3.4-5.0); BILIRUBIN,TOTAL 0.3 mg/dL (0.2-1); BLOOD UREA NITROGEN 18.6 mg/dL (7-18); CREATININE 0.6 mg/dL (0.55-1.3); POTASSIUM 4.3 mmol/L (3.5-5.1); TOT PROT 5.3 g/dl (6.4-8.2)
--- NOTE | 2019-03-16 09:02 | PN ---
Progress Note, Physician History of Present Illness: Afebrile, WBC lower. Rate-controlled afib, nonverbal, but awake on chronic vent. - Current Medication List Current Medications: Active Medications Albuterol Sulfate (Ventolin 0.083% Nebulizer Soln -) 1 amp NEB Q4H PRN PRN Reason: SHORT OF BREATH/WHEEZING Apixaban (Eliquis -) 5 mg PEG BID [facility] Last Admin: 03/15/19 21:20 Dose: 5 mg Atorvastatin Calcium (Lipitor -) 80 mg PO HS [facility] Last Admin: 03/15/19 21:21 Dose: 80 mg Famotidine (Pepcid) 20 mg PEG BID [facility] Last Admin: 03/15/19 21:21 Dose: 20 mg Fluoxetine HCl (Prozac Oral Solution -) 20 mg PO DAILY [facility] Last Admin: 03/15/19 10:31 Dose: 20 mg Ceftazidime/Avibactam 2.5 gm/ (Dextrose) 250 mls @ 125 mls/hr IVPB Q8H-IV [facility]; Protocol Last Admin: 03/16/19 03:07 Dose: 125 mls/hr Insulin Aspart (Novolog Vial Sliding Scale -) 1 vial SQ Q6HPO [facility]; Protocol Last Admin: 03/16/19 05:36 Dose: 4 units Insulin Detemir (Levemir Vial) 10 units SQ AM [facility] Last Admin: 03/16/19 06:04 Dose: 10 unit Metoprolol Tartrate (Lopressor -) 75 mg PO TID [facility] Last Admin: 03/16/19 05:36 Dose: Not Given Metoprolol Tartrate (Lopressor Injection -) 5 mg IVPUSH Q4H PRN PRN Reason: HYPERTENSION Nystatin (Nystop Powder -) 1 applic TP TID [facility] Last Admin: 03/16/19 05:45 Dose: 1 applic - Objective Vital Signs: Vital Signs Temperature 97.9 F 03/16/19 00:00 Pulse Rate 97 H 03/16/19 05:41 Respiratory Rate 20 03/16/19 08:36 Blood Pressure 90/62 03/16/19 05:41 O2 Sat by Pulse Oximetry (%) 100 03/16/19 01:57 Constitutional: Yes: No Distress, Calm, Thin Neck: Yes: Other (Tracheostomy) Cardiovascular: Yes: Pulse Irregular Respiratory: Yes: Mechanically Ventilated, Rhonchi Gastrointestinal: Yes: Normal Bowel Sounds, Soft, Other (PEG tube in place) Edema: Yes Edema: LLE: Trace, RLE: Trace Labs: CBC, BMP 03/14/19 07:32 03/16/19 05:25 INR, PTT INR 1.61 (0.83-1.09) H 03/10/19 00:05 Problem List - Problems (1) Bacteremia Code(s): R78.81 - BACTEREMIA (2) Atrial fibrillation with RVR Code(s): I48.91 - UNSPECIFIED ATRIAL FIBRILLATION (3) Angiodysplasia of colon with hemorrhage Code(s): K55.21 - ANGIODYSPLASIA OF COLON WITH HEMORRHAGE (4) CAD (coronary artery disease) Code(s): I25.10 - ATHSCL HEART DISEASE OF [place] CORONARY ARTERY W/O ANG PCTRS Qualifiers: Coronary Disease-Associated Artery/Lesion type: [place] artery [place] vs. transplanted heart: [place] heart Associated angina: without angina Qualified Code(s): I25.10 - Atherosclerotic heart disease of [place] coronary artery without angina pectoris (5) CVA (cerebral vascular accident) Code(s): I63.9 - CEREBRAL INFARCTION, UNSPECIFIED Qualifiers: CVA mechanism: unspecified Qualified Code(s): I63.9 - Cerebral infarction, unspecified (6) Diabetes mellitus Code(s): E11.9 - TYPE 2 DIABETES MELLITUS WITHOUT COMPLICATIONS Qualifiers: Diabetes mellitus type: type 2 (7) Diastolic dysfunction Code(s): I51.89 - OTHER ILL-DEFINED HEART DISEASES (8) S/P mitral valve repair Code(s): Z98.890 - OTHER SPECIFIED POSTPROCEDURAL STATES (9) Sick sinus syndrome Code(s): I49.5 - SICK SINUS SYNDROME (10) Stage 4 skin ulcer of sacral region Code(s): L98.429 - NON-PRESSURE CHRONIC ULCER OF BACK WITH UNSPECIFIED SEVERITY (11) Tracheostomy care Code(s): Z43.0 - ENCOUNTER FOR ATTENTION TO TRACHEOSTOMY (12) UTI (urinary tract infection) Code(s): N39.0 - URINARY TRACT INFECTION, SITE NOT SPECIFIED Qualifiers: Urinary tract infection type: acute cystitis Hematuria presence: with hematuria Qualified Code(s): N30.01 - Acute cystitis with hematuria (13) Ventilator dependent Code(s): Z99.11 - DEPENDENCE ON RESPIRATOR [VENTILATOR] STATUS Assessment/Plan 02/18/2019 EGD revealing mild patchy antral erythema otherwise unremarkable. No obvious ulcers or angioectasias seen 04/30/2018 Echo: Normal LV size and fxn, severe TR RVSP 50-60 mmHg, mild MR EGD and colonoscopy in 07/2017 revealing gastritis, cecal AVM and four tubular adenomas 12/17/2016 reveal: 03/2009 acute systolic CHF and OK, R&LHc 90% distal OM1, 60% D1, preserved LV fxn, elevated LVEDP BULMARO severe posterior leaflet prolapse with severe MR->MV annuloplasty repair, afib, sinus arrest->PPM, CAD left alone. [facility] Echo: 06/28/16 normal biventricular fxn, COSMO, mod TR, MV ring Nuc stress 09/13/2016 Anterolateral ischemia/infarct SDS 3 EF 82%, abnl ecg changes 1. Clinical presentation suggests sepsis/septic shock due to source with UTI with GPC bacteremia 2. Acute on chronic diastolic failure 3. Respiratory failure (chronic) on mechanical ventilation s/p tracheostomy and PEG 4. CAD, angina pectoris 5. Permanent AF [id number] score of 9 on DOAC 6. Sick sinus syndrome s/p PPM 7. Post mitral valve repair 8. History of HTN 9. Hypercholesterolemia 10. COPD 11. Acute on CKD with hypernatremia 12. Anemia h/o GI Bleed 13. History of CVA 14. Sacral decubitus ulcer PLAN: 1. Complete antibiotic coverage per C&S 2. Metoprolol 75 tid to control HR via PEG and then additional IV Lopressor for added rate control as BP tolerates 3. Eliquis 5 mg BID, Lipitor 80 qd 4. Continue vent support O2 to keep SpO2 >90% 5. Remains off pressor 6. Enteral feeds 7. DVT/GI prophylaxis 8. IV diuresis to keep even, replete K
[2019-03-16] MEDS: APIXABAN 5 MG TABLET PEG SCH ×2 (09:38→22:31)
[2019-03-16] MEDS: FAMOTIDINE 40 MG/5 ML ORAL SUSPENSION PEG SCH ×2 (09:39→22:32)
[2019-03-16] MEDS: FLUoxetine HCL 20 MG/5 ML 120 BOTTLE PO SCH (09:39)
--- NOTE | 2019-03-16 10:44 | PN ---
Progress Note, Physician Chief Complaint: Sepsis UTI Stage 4 decubitus ulcer Bacteremia History of Present Illness: NAD mech vent - Current Medication List Current Medications: Active Medications Albuterol Sulfate (Ventolin 0.083% Nebulizer Soln -) 1 amp NEB Q4H PRN PRN Reason: SHORT OF BREATH/WHEEZING Apixaban (Eliquis -) 5 mg PEG BID [facility] Last Admin: 03/16/19 09:38 Dose: 5 mg Atorvastatin Calcium (Lipitor -) 80 mg PO HS [facility] Last Admin: 03/15/19 21:21 Dose: 80 mg Famotidine (Pepcid) 20 mg PEG BID [facility] Last Admin: 03/16/19 09:39 Dose: 20 mg Fluoxetine HCl (Prozac Oral Solution -) 20 mg PO DAILY [facility] Last Admin: 03/16/19 09:39 Dose: 20 mg Ceftazidime/Avibactam 2.5 gm/ (Dextrose) 250 mls @ 125 mls/hr IVPB Q8H-IV [facility]; Protocol Last Admin: 03/16/19 09:40 Dose: 125 mls/hr Insulin Aspart (Novolog Vial Sliding Scale -) 1 vial SQ Q6HPO [facility]; Protocol Last Admin: 03/16/19 05:36 Dose: 4 units Insulin Detemir (Levemir Vial) 10 units SQ AM [facility] Last Admin: 03/16/19 06:04 Dose: 10 unit Metoprolol Tartrate (Lopressor -) 75 mg PO TID [facility] Last Admin: 03/16/19 05:36 Dose: Not Given Metoprolol Tartrate (Lopressor Injection -) 5 mg IVPUSH Q4H PRN PRN Reason: HYPERTENSION Nystatin (Nystop Powder -) 1 applic TP TID [facility] Last Admin: 03/16/19 05:45 Dose: 1 applic - Objective Vital Signs: Vital Signs Temperature 97.9 F 03/16/19 00:00 Pulse Rate 97 H 03/16/19 05:41 Respiratory Rate 03/16/19 08:36 Blood Pressure 90/62 03/16/19 05:41 O2 Sat by Pulse Oximetry (%) 100 03/16/19 01:57 Constitutional: Yes: Well Nourished, No Distress, Calm Cardiovascular: Yes: Regular Rate and Rhythm Respiratory: Yes: Mechanically Ventilated, Rhonchi (diffuse) Gastrointestinal: Yes: Normal Bowel Sounds, Soft Genitourinary: Yes: [place] Present Musculoskeletal: Yes: Muscle Weakness Extremities: Yes: Other (generalized atrophy) Edema: No Peripheral Pulses WNL: Yes Integumentary: Yes: Pressure Ulcer Wound/Incision: Yes: Dressing Dry and Intact Neurological: Yes: Pre-Existing Deficit Labs: CBC, BMP 03/14/19 07:32 03/16/19 05:25 INR, PTT INR 1.61 (0.83-1.09) H 03/10/19 00:05 Assessment/Plan (1) Atrial fibrillation with RVR Assessment/Plan: -Cardiology on board -Eliquis -Metoprolol for rate control Code(s): I48.91 - UNSPECIFIED ATRIAL FIBRILLATION (2) Bacteremia Assessment/Plan: -ID on board -afebrile -03/09 BC positive Strep species, repeat BC preliminary is negative -Ceftazidime day 4 -Vanco being dosed by ID Code(s): R78.81 - BACTEREMIA (3) CHF (congestive heart failure) Assessment/Plan: -CXR shows left pulmonary pleural changes, right base changes have diminished -CXR 03/10/19 shows bibasilar pleural effusion -1L fluid restriction Code(s): I50.9 - HEART FAILURE, UNSPECIFIED (4) Hypernatremia Assessment/Plan: -resolved Code(s): E87.0 - HYPEROSMOLALITY AND HYPERNATREMIA (5) Acute and chronic respiratory failure Assessment/Plan: -Pulm on board -Bronchodilators -mechanically ventilated -CXR shows left pulmonary pleural changes, right base changes have diminished -keep SpO2 >90% Code(s): J96.20 - ACUTE AND CHR RESP FAILURE, UNSP W HYPOXIA OR HYPERCAPNIA (6) CAD (coronary artery disease) Assessment/Plan: -Atorvastatin Code(s): I25.10 - ATHSCL HEART DISEASE OF [place] CORONARY ARTERY W/O ANG PCTRS Qualifiers: Coronary Disease-Associated Artery/Lesion type: [place] artery [place] vs. transplanted heart: [place] heart Associated angina: without angina Qualified Code(s): I25.10 - Atherosclerotic heart disease of [place] coronary artery without angina pectoris (7) Diabetes mellitus Assessment/Plan: -A1c at 7.4 -BGM ACHS -Levemir BID -ISS -TF: Glucerna Code(s): E11.9 - TYPE 2 DIABETES MELLITUS WITHOUT COMPLICATIONS Qualifiers: Diabetes mellitus type: type 2 (8) Sepsis Assessment/Plan: -ID on board -afebrile -Ceftazidime day 4 -Vanco dose as per ID Code(s): A41.9 - SEPSIS, UNSPECIFIED ORGANISM Qualifiers: Sepsis type: sepsis due to unspecified organism Sepsis acute organ dysfunction status: without acute organ dysfunction Qualified Code(s): A41.9 - Sepsis, unspecified organism (9) Stage 4 skin ulcer of sacral region Assessment/Plan: -Vascular consult -turn q2h -offloading -Rectal tube and FC to avoid contamination of wound -Seen by Vascular surgery -Wound vac Code(s): L98.429 - NON-PRESSURE CHRONIC ULCER OF BACK WITH UNSPECIFIED SEVERITY (10) UTI (urinary tract infection) Assessment/Plan: -ID on board -afebrile -UA shows 3+ leuks, 1+ blood, 2+ protein -UC positive for Klebsiella -Ceftazidime Code(s): N39.0 - URINARY TRACT INFECTION, SITE NOT SPECIFIED Qualifiers: Urinary tract infection type: catheter-associated UTI Indwelling urinary catheter type: unspecified Encounter type: initial encounter Qualified Code( s): T83.511A - Infection and inflammatory reaction due to indwelling urethral catheter, initial encounter; N39.0 - Urinary tract infection, site not specified (11) Ventilator dependent Assessment/Plan: -Mechanically ventilated -Pulm on board Code(s): Z99.11 - DEPENDENCE ON RESPIRATOR [VENTILATOR] STATUS
--- NOTE | 2019-03-16 11:16 | PN ---
Progress Note (short form) - Note Progress Note: PULMONARY Vented, arousable. No fevers recorded. Vital Signs Period Temp Pulse Resp BP Sys/[place] Pulse Ox Last 24 Hr 97.4 F-98.3 F 78-97 14-22 90-140/62-87 97-100 Gen: vented, arousable Heart: irregular Lung: scattered rhonchi Abd: soft, nontender Ext: + edema CBC, BMP 03/14/19 07:32 03/16/19 05:25 Active Medications Albuterol Sulfate (Ventolin 0.083% Nebulizer Soln -) 1 amp NEB Q4H PRN PRN Reason: SHORT OF BREATH/WHEEZING Apixaban (Eliquis -) 5 mg PEG BID [facility] Last Admin: 03/16/19 09:38 Dose: 5 mg Atorvastatin Calcium (Lipitor -) 80 mg PO HS [facility] Last Admin: 03/15/19 21:21 Dose: 80 mg Famotidine (Pepcid) 20 mg PEG BID [facility] Last Admin: 03/16/19 09:39 Dose: 20 mg Fluoxetine HCl (Prozac Oral Solution -) 20 mg PO DAILY [facility] Last Admin: 03/16/19 09:39 Dose: 20 mg Ceftazidime/Avibactam 2.5 gm/ (Dextrose) 250 mls @ 125 mls/hr IVPB Q8H-IV [facility]; Protocol Last Admin: 03/16/19 09:40 Dose: 125 mls/hr Insulin Aspart (Novolog Vial Sliding Scale -) 1 vial SQ Q6HPO [facility]; Protocol Last Admin: 03/16/19 05:36 Dose: 4 units Insulin Detemir (Levemir Vial) 10 units SQ AM [facility] Last Admin: 03/16/19 06:04 Dose: 10 unit Metoprolol Tartrate (Lopressor -) 75 mg PO TID [facility] Last Admin: 03/16/19 05:36 Dose: Not Given Metoprolol Tartrate (Lopressor Injection -) 5 mg IVPUSH Q4H PRN PRN Reason: HYPERTENSION Nystatin (Nystop Powder -) 1 applic TP TID [facility] Last Admin: 03/16/19 05:45 Dose: 1 applic A/P Acute on Chronic Hypoxic Respiratory Failure UTI Gram Positive Bacteremia Decubitus Ulcers Septic Shock Atrial Fibrillation with RVR s/p PPM COPD HTN DM h/o GI Bleed h/o CVA Anemia - continue antibiotics - strict isolation - rate control - continue anticoagulation - lasix as needed - O2 to keep SpO2 >90% - continue assist control - enteral feeds - DVT/GI prophylaxis
--- NOTE | 2019-03-16 12:23 | PN ---
Progress Note (short form) - Note Progress Note: Renal follow up for CONOR Seen and examined at the bedside awake and alert on vent no over night events Vital Signs Temperature 98.4 F 03/16/19 11:00 Pulse Rate 99 H 03/16/19 11:00 Respiratory Rate 21 H 03/16/19 12:18 Blood Pressure 129/57 L 03/16/19 11:00 O2 Sat by Pulse Oximetry (%) 100 03/16/19 01:57 Intake & Output 03/13/19 03/14/19 03/15/19 03/16/19 23:59 23:59 23:59 23:59 Intake Total 1600 2150 1800 1400 Output Total 2200 1350 750 Balance -956 166 0155 1400 NAD awake on vent no JVD RRR soft NT/ND +trace Le and upper extremity edema CBC, BMP 03/14/19 07:32 03/16/19 05:25 Current Medications Albuterol Sulfate (Ventolin 0.083% Nebulizer Soln -) 1 amp NEB Q4H PRN PRN Reason: SHORT OF BREATH/WHEEZING Apixaban (Eliquis -) 5 mg PEG BID [facility] Last Admin: 03/16/19 09:38 Dose: 5 mg Atorvastatin Calcium (Lipitor -) 80 mg PO HS [facility] Last Admin: 03/15/19 21:21 Dose: 80 mg Famotidine (Pepcid) 20 mg PEG BID [facility] Last Admin: 03/16/19 09:39 Dose: 20 mg Fluoxetine HCl (Prozac Oral Solution -) 20 mg PO DAILY [facility] Last Admin: 03/16/19 09:39 Dose: 20 mg Ceftazidime/Avibactam 2.5 gm/ (Dextrose) 250 mls @ 125 mls/hr IVPB Q8H-IV [facility]; Protocol Last Admin: 03/16/19 09:40 Dose: 125 mls/hr Insulin Aspart (Novolog Vial Sliding Scale -) 1 vial SQ Q6HPO [facility]; Protocol Last Admin: 03/16/19 05:36 Dose: 4 units Insulin Detemir (Levemir Vial) 10 units SQ AM [facility] Last Admin: 03/16/19 06:04 Dose: 10 unit Metoprolol Tartrate (Lopressor -) 75 mg PO TID [facility] Last Admin: 03/16/19 05:36 Dose: Not Given Metoprolol Tartrate (Lopressor Injection -) 5 mg IVPUSH Q4H PRN PRN Reason: HYPERTENSION Nystatin (Nystop Powder -) 1 applic TP TID [facility] Last Admin: 03/16/19 05:45 Dose: 1 applic 79 year old woman wit history of Chronic Respiratory failure, CAD, Afib on eliquis, CVA (non-verbal), COPD, hypertension, DM who presented from the [place] with fever and noted to have CONOR, hypernatremia and metabolic alkalosis. 1. CONOR from volume depletion 2. Metabolic alkalosis 3. Hypernatrmeia 4. Sepsis from UTI 5. Acute on Chronic anemia renal function and acid/base status improved Continue Lasix 40mg daily for fluid management continue tube feeds with free water Will follow up as needed Tashi Aguirre DO
[2019-03-16 13:42] LABS: BASO % 0.3 % (0-2.0); EOS % 5.7 % (0-4.5); HEMATOCRIT 27.3 % (32.4-45.2); HEMOGLOBIN 8.4 GM/dL (10.7-15.3); MCH 24.9 pg (25.7-33.7); MCHC 30.7 g/dl (32.0-36.0); MEAN CELL VOLUME 81.1 fl (80-96); MEAN PLT VOLUME 9.9 fl (7.5-11.1); MONO % 5.8 % (3.8-10.2); NEUT % 79.2 % (42.8-82.8); PLATELET COUNT 434 K/MM3 (134-434); RBC 3.37 M/mm3 (3.60-5.2); RDW 19.2 % (11.6-15.6); WHITE BLOOD COUNT 16.8 K/mm3 (4.0-10.0)
[2019-03-16] MEDS: FUROSEMIDE 40 MG TABLET (FP) PO SCH ×2 (14:00→16:00)
[2019-03-16 14:47] LABS: ALBUMIN 1.5 g/dl (3.4-5.0); BILIRUBIN,TOTAL 0.3 mg/dL (0.2-1); CALCIUM 8.6 mg/dL (8.5-10.1); CREATININE 0.6 mg/dL (0.55-1.3); POTASSIUM 4.1 mmol/L (3.5-5.1); TOT PROT 5.5 g/dl (6.4-8.2)
[2019-03-16 15:31] LABS: ANISOCYTOSIS 1+; MACROCYTOSIS 1+; PLATELET ESTIMATE NORMAL
[2019-03-16] MEDS ORDERED: FUROSEMIDE 40 MG TABLET (FP) GT ONE (17:00)
--- NOTE | 2019-03-16 20:16 | PN ---
Progress Note, Physician History of Present Illness: AWAKE, NON VERBAL TEMPS REMAIN DOWN AFEBRILE BC GEMELLA SP SPUTUM, URINE , WOUND C/S MIXED INCL CRE - Current Medication List Current Medications: Active Medications Albuterol Sulfate (Ventolin 0.083% Nebulizer Soln -) 1 amp NEB Q4H PRN PRN Reason: SHORT OF BREATH/WHEEZING Apixaban (Eliquis -) 5 mg PEG BID [facility] Last Admin: 03/16/19 09:38 Dose: 5 mg Atorvastatin Calcium (Lipitor -) 80 mg PO HS [facility] Last Admin: 03/15/19 21:21 Dose: 80 mg Famotidine (Pepcid) 20 mg PEG BID [facility] Last Admin: 03/16/19 09:39 Dose: 20 mg Fluoxetine HCl (Prozac Oral Solution -) 20 mg PO DAILY [facility] Last Admin: 03/16/19 09:39 Dose: 20 mg Furosemide (Lasix Oral Solution -) 40 mg GT DAILY [facility] Ceftazidime/Avibactam 2.5 gm/ (Dextrose) 250 mls @ 125 mls/hr IVPB Q8H-IV [facility]; Protocol Last Admin: 03/16/19 17:48 Dose: 125 mls/hr Insulin Aspart (Novolog Vial Sliding Scale -) 1 vial SQ Q6HPO [facility]; Protocol Last Admin: 03/16/19 18:07 Dose: 4 units Insulin Detemir (Levemir Vial) 10 units SQ AM [facility] Last Admin: 03/16/19 06:04 Dose: 10 unit Metoprolol Tartrate (Lopressor -) 75 mg PO TID [facility] Last Admin: 03/16/19 14:49 Dose: 75 mg Metoprolol Tartrate (Lopressor Injection -) 5 mg IVPUSH Q4H PRN PRN Reason: HYPERTENSION Nystatin (Nystop Powder -) 1 applic TP TID [facility] Last Admin: 03/16/19 14:49 Dose: 1 applic - Objective Vital Signs: Vital Signs Temperature 97.1 F L 03/16/19 17:45 Pulse Rate 89 03/16/19 17:45 Respiratory Rate 21 H 03/16/19 17:45 Blood Pressure 128/80 03/16/19 17:45 O2 Sat by Pulse Oximetry (%) 100 03/16/19 01:57 Constitutional: Yes: No Distress Eyes: Yes: Conjunctiva Clear Cardiovascular: Yes: Regular Rate and Rhythm, S1, S2 Respiratory: Yes: Diminished Gastrointestinal: Yes: Normal Bowel Sounds, Soft Labs: CBC, BMP 03/16/19 12:30 03/16/19 10:45 INR, PTT INR 1.61 (0.83-1.09) H 03/10/19 00:05 Assessment/Plan SEPSIS/ SEPTIC SHOCK IMPROVED STREPTOCOCCAL BACTEREMIA UTI SACRAL DECUBITUS ULCER LACTIC ACIDOSIS DM CHRONIC RESP FAILURE HX CRE CONTINUE AVYCAZ VNCOMYCIN HELD CONTACT PRECAUTIONS
[2019-03-16] MEDS ORDERED: INSULIN (NOVOLOG) ASPART 100 UNITS/ML 10ML VIAL ONE (22:25)
[2019-03-16] MEDS: ATORVASTATIN CA 80 MG TABLET (FP) PO SCH (22:31)
[2019-03-17] MEDS ORDERED: PT OWN MED DRAWER 7, Y5N ONE ×2 (01:10→17:18)
[2019-03-17] MEDS: INSULIN SLIDING SCALE (NOVOLOG) 1 VIAL SQ SCH ×4 (01:58→17:56)
[2019-03-17] MEDS: CEFTAZIDIME/AVIBACTAM 2.5 GM in DEXTROSE 5%-WATER - 250 ML IVPB SCH ×3 (01:59→17:51)
[2019-03-17] MEDS: NYSTATIN POWDER 100,000 UNITS/GM - 15 GM TOPICAL POWDER TP SCH ×3 (05:35→22:50)
[2019-03-17] MEDS: METOPROLOL TARTRATE 25 MG TABLET (FP) PO SCH ×3 (05:36→22:50)
[2019-03-17] MEDS: INSULIN (LEVEMIR) 100 UNITS/ML UNITS SQ SCH (06:27)
[2019-03-17 09:19] LABS: BASO % 0.2 % (0-2.0); EOS % 6.9 % (0-4.5); HEMATOCRIT 27.1 % (32.4-45.2); HEMOGLOBIN 8.4 GM/dL (10.7-15.3); LYMPH % 11.5 % (8-40); MEAN CELL VOLUME 80.6 fl (80-96); MEAN PLT VOLUME 9.7 fl (7.5-11.1); MONO % 7.2 % (3.8-10.2); NEUT % 74.2 % (42.8-82.8); PLATELET COUNT 441 K/MM3 (134-434); RBC 3.36 M/mm3 (3.60-5.2); RDW 19.5 % (11.6-15.6); WHITE BLOOD COUNT 13.6 K/mm3 (4.0-10.0)
[2019-03-17 09:54] LABS: ALBUMIN 1.4 g/dl (3.4-5.0); BILIRUBIN,TOTAL 0.2 mg/dL (0.2-1); CALCIUM 8.3 mg/dL (8.5-10.1); CREATININE 0.6 mg/dL (0.55-1.3); POTASSIUM 4.4 mmol/L (3.5-5.1); TOT PROT 5.5 g/dl (6.4-8.2)
[2019-03-17] MEDS: APIXABAN 5 MG TABLET PEG SCH ×2 (11:02→22:50)
[2019-03-17] MEDS: FUROSEMIDE 40 MG/5 ML UNIT-DOSE CUP GT SCH (11:03)
[2019-03-17] MEDS: FLUoxetine HCL 20 MG/5 ML 120 BOTTLE PO SCH (11:03)
[2019-03-17] MEDS: FAMOTIDINE 40 MG/5 ML ORAL SUSPENSION PEG SCH ×2 (11:03→22:50)
[2019-03-17 12:17] LABS: ANISOCYTOSIS 2+; MACROCYTOSIS 0; OVALOCYTE 1+; PLATELET ESTIMATE NORMAL; TARGET CELLS 1+; TEAR DROP CELLS 1+
--- NOTE | 2019-03-17 12:27 | PN ---
Progress Note (short form) - Note Progress Note: PULMONARY Vented, arousable. No fevers recorded. Vital Signs Period Temp Pulse Resp BP Sys/[place] Pulse Ox Last 24 Hr 97.1 F-98.2 F 81-99 19-25 120-155/61-80 100 Gen: vented, arousable Heart: irregular Lung: scattered rhonchi Abd: soft, nontender Ext: + edema CBC, BMP 03/17/19 07:00 03/17/19 07:00 Active Medications Albuterol Sulfate (Ventolin 0.083% Nebulizer Soln -) 1 amp NEB Q4H PRN PRN Reason: SHORT OF BREATH/WHEEZING Apixaban (Eliquis -) 5 mg PEG BID [facility] Last Admin: 03/17/19 11:02 Dose: 5 mg Atorvastatin Calcium (Lipitor -) 80 mg PO HS [facility] Last Admin: 03/16/19 22:31 Dose: 80 mg Famotidine (Pepcid) 20 mg PEG BID [facility] Last Admin: 03/17/19 11:03 Dose: 20 mg Fluoxetine HCl (Prozac Oral Solution -) 20 mg PO DAILY [facility] Last Admin: 03/17/19 11:03 Dose: 20 mg Furosemide (Lasix Oral Solution -) 40 mg GT DAILY [facility] Last Admin: 03/17/19 11:03 Dose: 40 mg Ceftazidime/Avibactam 2.5 gm/ (Dextrose) 250 mls @ 125 mls/hr IVPB Q8H-IV [facility]; Protocol Last Admin: 03/17/19 11:04 Dose: 125 mls/hr Insulin Aspart (Novolog Vial Sliding Scale -) 1 vial SQ Q6HPO [facility]; Protocol Last Admin: 03/17/19 06:28 Dose: 4 units Insulin Detemir (Levemir Vial) 10 units SQ AM [facility] Last Admin: 03/17/19 06:27 Dose: 10 unit Metoprolol Tartrate (Lopressor -) 75 mg PO TID [facility] Last Admin: 03/17/19 05:36 Dose: 75 mg Metoprolol Tartrate (Lopressor Injection -) 5 mg IVPUSH Q4H PRN PRN Reason: HYPERTENSION Nystatin (Nystop Powder -) 1 applic TP TID [facility] Last Admin: 03/17/19 05:35 Dose: 1 applic A/P Acute on Chronic Hypoxic Respiratory Failure UTI Gram Positive Bacteremia Decubitus Ulcers Septic Shock Atrial Fibrillation with RVR s/p PPM COPD HTN DM h/o GI Bleed h/o CVA Anemia - continue antibiotics - strict isolation - rate control - continue anticoagulation - lasix as needed - O2 to keep SpO2 >90% - continue assist control - enteral feeds - DVT/GI prophylaxis
--- NOTE | 2019-03-17 12:31 | PN ---
Progress Note, Physician Chief Complaint: Sepsis UTI Stage 4 decubitus ulcer Bacteremia History of Present Illness: NAD mech vent Peg clogged this AM, was able to gain access with de-clogger - Current Medication List Current Medications: Active Medications Albuterol Sulfate (Ventolin 0.083% Nebulizer Soln -) 1 amp NEB Q4H PRN PRN Reason: SHORT OF BREATH/WHEEZING Apixaban (Eliquis -) 5 mg PEG BID [facility] Last Admin: 03/17/19 11:02 Dose: 5 mg Atorvastatin Calcium (Lipitor -) 80 mg PO HS [facility] Last Admin: 03/16/19 22:31 Dose: 80 mg Famotidine (Pepcid) 20 mg PEG BID [facility] Last Admin: 03/17/19 11:03 Dose: 20 mg Fluoxetine HCl (Prozac Oral Solution -) 20 mg PO DAILY [facility] Last Admin: 03/17/19 11:03 Dose: 20 mg Furosemide (Lasix Oral Solution -) 40 mg GT DAILY [facility] Last Admin: 03/17/19 11:03 Dose: 40 mg Ceftazidime/Avibactam 2.5 gm/ (Dextrose) 250 mls @ 125 mls/hr IVPB Q8H-IV [facility]; Protocol Last Admin: 03/17/19 11:04 Dose: 125 mls/hr Insulin Aspart (Novolog Vial Sliding Scale -) 1 vial SQ Q6HPO [facility]; Protocol Last Admin: 03/17/19 06:28 Dose: 4 units Insulin Detemir (Levemir Vial) 10 units SQ AM [facility] Last Admin: 03/17/19 06:27 Dose: 10 unit Metoprolol Tartrate (Lopressor -) 75 mg PO TID [facility] Last Admin: 03/17/19 05:36 Dose: 75 mg Metoprolol Tartrate (Lopressor Injection -) 5 mg IVPUSH Q4H PRN PRN Reason: HYPERTENSION Nystatin (Nystop Powder -) 1 applic TP TID [facility] Last Admin: 03/17/19 05:35 Dose: 1 applic - Objective Vital Signs: Vital Signs Temperature 97.7 F 03/17/19 05:00 Pulse Rate 92 H 03/17/19 05:00 Respiratory Rate 25 H 03/17/19 11:00 Blood Pressure 123/65 03/17/19 11:00 O2 Sat by Pulse Oximetry (%) 100 03/16/19 21:00 Constitutional: Yes: Well Nourished, No Distress, Calm Cardiovascular: Yes: Regular Rate and Rhythm Respiratory: Yes: Mechanically Ventilated, Rhonchi (diffuse) Gastrointestinal: Yes: Normal Bowel Sounds, Soft Genitourinary: Yes: [place] Present Musculoskeletal: Yes: Other (generalized atrophy) Edema: No Peripheral Pulses WNL: Yes Neurological: Yes: Alert, Pre-Existing Deficit Labs: CBC, BMP 03/17/19 07:00 03/17/19 07:00 INR, PTT INR 1.61 (0.83-1.09) H 03/10/19 00:05 Assessment/Plan (1) Atrial fibrillation with RVR Assessment/Plan: -Cardiology on board -Eliquis -Metoprolol for rate control Code(s): I48.91 - UNSPECIFIED ATRIAL FIBRILLATION (2) Bacteremia Assessment/Plan: -ID on board -afebrile -Repeat BC negative Microbiology 03/12/19 05:20 Blood Culture - Final Blood - Peripheral Venous NO GROWTH AFTER 5 DAYS INCUBATION 03/12/19 05:27 Blood Culture - Final Blood - Peripheral Venous NO GROWTH AFTER 5 DAYS INCUBATION 03/09/19 22:19 Blood Culture - Final Blood - Peripheral Venous Gemella Species -Ceftazidime day 5 Code(s): R78.81 - BACTEREMIA (3) CHF (congestive heart failure) Assessment/Plan: -CXR shows left pulmonary pleural changes, right base changes have diminished -CXR 03/10/19 shows bibasilar pleural effusion -1L fluid restriction Code(s): I50.9 - HEART FAILURE, UNSPECIFIED (4) Hypernatremia Assessment/Plan: -resolved Code(s): E87.0 - HYPEROSMOLALITY AND HYPERNATREMIA (5) Acute and chronic respiratory failure Assessment/Plan: -Pulm on board -Bronchodilators -mechanically ventilated -CXR shows left pulmonary pleural changes, right base changes have diminished -keep SpO2 >90% Code(s): J96.20 - ACUTE AND CHR RESP FAILURE, UNSP W HYPOXIA OR HYPERCAPNIA (6) CAD (coronary artery disease) Assessment/Plan: -Atorvastatin Code(s): I25.10 - ATHSCL HEART DISEASE OF [place] CORONARY ARTERY W/O ANG PCTRS Qualifiers: Coronary Disease-Associated Artery/Lesion type: [place] artery [place] vs. transplanted heart: [place] heart Associated angina: without angina Qualified Code(s): I25.10 - Atherosclerotic heart disease of [place] coronary artery without angina pectoris (7) Diabetes mellitus Assessment/Plan: -A1c at 7.4 -BGM ACHS -Levemir BID -ISS -TF: Glucerna Code(s): E11.9 - TYPE 2 DIABETES MELLITUS WITHOUT COMPLICATIONS Qualifiers: Diabetes mellitus type: type 2 (8) Sepsis Assessment/Plan: -ID on board -afebrile -Ceftazidime day 5 Code(s): A41.9 - SEPSIS, UNSPECIFIED ORGANISM Qualifiers: Sepsis type: sepsis due to unspecified organism Sepsis acute organ dysfunction status: without acute organ dysfunction Qualified Code(s): A41.9 - Sepsis, unspecified organism (9) Stage 4 skin ulcer of sacral region Assessment/Plan: -Vascular consult -turn q2h -offloading -Rectal tube and FC to avoid contamination of wound -Seen by Vascular surgery -Wound vac Code(s): L98.429 - NON-PRESSURE CHRONIC ULCER OF BACK WITH UNSPECIFIED SEVERITY (10) UTI (urinary tract infection) Assessment/Plan: -ID on board -afebrile -UA shows 3+ leuks, 1+ blood, 2+ protein -UC positive for Klebsiella -Ceftazidime Code(s): N39.0 - URINARY TRACT INFECTION, SITE NOT SPECIFIED Qualifiers: Urinary tract infection type: catheter-associated UTI Indwelling urinary catheter type: unspecified Encounter type: initial encounter Qualified Code( s): T83.511A - Infection and inflammatory reaction due to indwelling urethral catheter, initial encounter; N39.0 - Urinary tract infection, site not specified (11) Ventilator dependent Assessment/Plan: -Mechanically ventilated -Pulm on board Code(s): Z99.11 - DEPENDENCE ON RESPIRATOR [VENTILATOR] STATUS
--- NOTE | 2019-03-17 17:17 | PN ---
Progress Note, Physician History of Present Illness: AWAKE, NON VERBAL TEMPS REMAIN DOWN AFEBRILE BC GEMELLA SP SPUTUM, URINE , WOUND C/S MIXED INCL CRE - Current Medication List Current Medications: Active Medications Albuterol Sulfate (Ventolin 0.083% Nebulizer Soln -) 1 amp NEB Q4H PRN PRN Reason: SHORT OF BREATH/WHEEZING Apixaban (Eliquis -) 5 mg PEG BID [facility] Last Admin: 03/17/19 11:02 Dose: 5 mg Atorvastatin Calcium (Lipitor -) 80 mg PO HS [facility] Last Admin: 03/16/19 22:31 Dose: 80 mg Famotidine (Pepcid) 20 mg PEG BID [facility] Last Admin: 03/17/19 11:03 Dose: 20 mg Fluoxetine HCl (Prozac Oral Solution -) 20 mg PO DAILY [facility] Last Admin: 03/17/19 11:03 Dose: 20 mg Furosemide (Lasix Oral Solution -) 40 mg GT DAILY [facility] Last Admin: 03/17/19 11:03 Dose: 40 mg Ceftazidime/Avibactam 2.5 gm/ (Dextrose) 250 mls @ 125 mls/hr IVPB Q8H-IV [facility]; Protocol Last Admin: 03/17/19 11:04 Dose: 125 mls/hr Insulin Aspart (Novolog Vial Sliding Scale -) 1 vial SQ Q6HPO [facility]; Protocol Last Admin: 03/17/19 12:46 Dose: 2 units Insulin Detemir (Levemir Vial) 10 units SQ AM [facility] Last Admin: 03/17/19 06:27 Dose: 10 unit Metoprolol Tartrate (Lopressor -) 75 mg PO TID [facility] Last Admin: 03/17/19 14:56 Dose: 75 mg Metoprolol Tartrate (Lopressor Injection -) 5 mg IVPUSH Q4H PRN PRN Reason: HYPERTENSION Nystatin (Nystop Powder -) 1 applic TP TID [facility] Last Admin: 03/17/19 14:57 Dose: 1 applic - Objective Vital Signs: Vital Signs Temperature 98.1 F 03/17/19 15:00 Pulse Rate 94 H 03/17/19 15:00 Respiratory Rate 18 03/17/19 16:15 Blood Pressure 111/58 L 03/17/19 15:00 O2 Sat by Pulse Oximetry (%) 100 03/16/19 21:00 Constitutional: Yes: No Distress Cardiovascular: Yes: Regular Rate and Rhythm, S1, S2 Respiratory: Yes: CTA Bilaterally Gastrointestinal: Yes: Normal Bowel Sounds, Soft. No: Tenderness Edema: Yes Labs: CBC, BMP 03/17/19 07:00 03/17/19 07:00 INR, PTT INR 1.61 (0.83-1.09) H 03/10/19 00:05 Assessment/Plan SEPSIS/ SEPTIC SHOCK IMPROVED STREPTOCOCCAL BACTEREMIA UTI SACRAL DECUBITUS ULCER LACTIC ACIDOSIS DM CHRONIC RESP FAILURE HX CRE CONTINUE AVYCAZ VNCOMYCIN HELD CONTACT PRECAUTIONS
[2019-03-17] MEDS: ATORVASTATIN CA 80 MG TABLET (FP) PO SCH (22:50)
[2019-03-18] MEDS: INSULIN SLIDING SCALE (NOVOLOG) 1 VIAL SQ SCH ×5 (00:07→23:22)
[2019-03-18] MEDS: CEFTAZIDIME/AVIBACTAM 2.5 GM in DEXTROSE 5%-WATER - 250 ML IVPB SCH ×3 (02:18→17:57)
[2019-03-18] MEDS: METOPROLOL TARTRATE 25 MG TABLET (FP) PO SCH ×3 (06:40→23:08)
[2019-03-18] MEDS: INSULIN (LEVEMIR) 100 UNITS/ML UNITS SQ SCH (06:40)
[2019-03-18] MEDS: NYSTATIN POWDER 100,000 UNITS/GM - 15 GM TOPICAL POWDER TP SCH ×3 (06:40→23:10)
[2019-03-18] MEDS ORDERED: INSULIN (NOVOLOG) ASPART 100 UNITS/ML 10ML VIAL ONE (07:04)
--- NOTE | 2019-03-18 10:15 | PN ---
Progress Note, Physician History of Present Illness: Afebrile, WBC lower. Rate-controlled afib, nonverbal, but awake on chronic vent. - Current Medication List Current Medications: Active Medications Albuterol Sulfate (Ventolin 0.083% Nebulizer Soln -) 1 amp NEB Q4H PRN PRN Reason: SHORT OF BREATH/WHEEZING Apixaban (Eliquis -) 5 mg PEG BID [facility] Last Admin: 03/17/19 22:50 Dose: 5 mg Atorvastatin Calcium (Lipitor -) 80 mg PO HS [facility] Last Admin: 03/17/19 22:50 Dose: 80 mg Famotidine (Pepcid) 20 mg PEG BID [facility] Last Admin: 03/17/19 22:50 Dose: 20 mg Ferrous Sulfate (Feosol) 300 mg GT DAILY [facility] Fluoxetine HCl (Prozac Oral Solution -) 20 mg PO DAILY [facility] Last Admin: 03/17/19 11:03 Dose: 20 mg Furosemide (Lasix Oral Solution -) 40 mg GT DAILY [facility] Last Admin: 03/17/19 11:03 Dose: 40 mg Ceftazidime/Avibactam 2.5 gm/ (Dextrose) 250 mls @ 125 mls/hr IVPB Q8H-IV [facility]; Protocol Last Admin: 03/18/19 02:18 Dose: 125 mls/hr Insulin Aspart (Novolog Vial Sliding Scale -) 1 vial SQ Q6HPO [facility]; Protocol Last Admin: 03/18/19 06:03 Dose: 2 units Insulin Detemir (Levemir Vial) 10 units SQ AM [facility] Last Admin: 03/18/19 06:40 Dose: 10 units Metoprolol Tartrate (Lopressor -) 75 mg PO TID [facility] Last Admin: 03/18/19 06:40 Dose: 75 mg Nystatin (Nystop Powder -) 1 applic TP TID [facility] Last Admin: 03/18/19 06:40 Dose: 1 applic - Objective Vital Signs: Vital Signs Temperature 98.3 F 03/18/19 05:17 Pulse Rate 89 03/18/19 05:17 Respiratory Rate 18 03/18/19 05:17 Blood Pressure 119/48 L 03/18/19 05:17 O2 Sat by Pulse Oximetry (%) 100 03/17/19 21:00 Constitutional: Yes: No Distress, Calm, Thin Neck: Yes: Other (Tracheostomy) Cardiovascular: Yes: Pulse Irregular Respiratory: Yes: Mechanically Ventilated, Rhonchi Gastrointestinal: Yes: Normal Bowel Sounds, Soft Edema: Yes Labs: CBC, BMP 03/17/19 07:00 03/17/19 07:00 INR, PTT INR 1.61 (0.83-1.09) H 03/10/19 00:05 Problem List - Problems (1) Bacteremia Code(s): R78.81 - BACTEREMIA (2) Atrial fibrillation with RVR Code(s): I48.91 - UNSPECIFIED ATRIAL FIBRILLATION (3) Angiodysplasia of colon with hemorrhage Code(s): K55.21 - ANGIODYSPLASIA OF COLON WITH HEMORRHAGE (4) CAD (coronary artery disease) Code(s): I25.10 - ATHSCL HEART DISEASE OF [place] CORONARY ARTERY W/O ANG PCTRS Qualifiers: Coronary Disease-Associated Artery/Lesion type: [place] artery [place] vs. transplanted heart: [place] heart Associated angina: without angina Qualified Code(s): I25.10 - Atherosclerotic heart disease of [place] coronary artery without angina pectoris (5) CVA (cerebral vascular accident) Code(s): I63.9 - CEREBRAL INFARCTION, UNSPECIFIED Qualifiers: CVA mechanism: unspecified Qualified Code(s): I63.9 - Cerebral infarction, unspecified (6) Diabetes mellitus Code(s): E11.9 - TYPE 2 DIABETES MELLITUS WITHOUT COMPLICATIONS Qualifiers: Diabetes mellitus type: type 2 (7) Diastolic dysfunction Code(s): I51.89 - OTHER ILL-DEFINED HEART DISEASES (8) S/P mitral valve repair Code(s): Z98.890 - OTHER SPECIFIED POSTPROCEDURAL STATES (9) Sick sinus syndrome Code(s): I49.5 - SICK SINUS SYNDROME (10) Stage 4 skin ulcer of sacral region Code(s): L98.429 - NON-PRESSURE CHRONIC ULCER OF BACK WITH UNSPECIFIED SEVERITY (11) Tracheostomy care Code(s): Z43.0 - ENCOUNTER FOR ATTENTION TO TRACHEOSTOMY (12) UTI (urinary tract infection) Code(s): N39.0 - URINARY TRACT INFECTION, SITE NOT SPECIFIED Qualifiers: Urinary tract infection type: acute cystitis Hematuria presence: with hematuria Qualified Code(s): N30.01 - Acute cystitis with hematuria (13) Ventilator dependent Code(s): Z99.11 - DEPENDENCE ON RESPIRATOR [VENTILATOR] STATUS Assessment/Plan 02/18/2019 EGD revealing mild patchy antral erythema otherwise unremarkable. No obvious ulcers or angioectasias seen 04/30/2018 Echo: Normal LV size and fxn, severe TR RVSP 50-60 mmHg, mild MR EGD and colonoscopy in 07/2017 revealing gastritis, cecal AVM and four tubular adenomas 12/17/2016 reveal: 03/2009 acute systolic CHF and CO, R&LHc 90% distal OM1, 60% D1, preserved LV fxn, elevated LVEDP BULMARO severe posterior leaflet prolapse with severe MR->MV annuloplasty repair, afib, sinus arrest->PPM, CAD left alone. [facility] Echo: 06/28/16 normal biventricular fxn, COSMO, mod TR, MV ring Nuc stress 09/13/2016 Anterolateral ischemia/infarct SDS 3 EF 82%, abnl ecg changes 1. Clinical presentation suggests sepsis/septic shock due to source with UTI with GPC bacteremia 2. Acute on chronic diastolic failure 3. Respiratory failure (chronic) on mechanical ventilation s/p tracheostomy and PEG 4. CAD, angina pectoris 5. Permanent AF [id number] score of 9 on DOAC 6. Sick sinus syndrome s/p PPM 7. Post mitral valve repair 8. History of HTN 9. Hypercholesterolemia 10. COPD 11. Acute on CKD with hypernatremia 12. Anemia h/o GI Bleed 13. History of CVA 14. Sacral decubitus ulcer PLAN: 1. Complete antibiotic coverage per C&S 2. Metoprolol 75 tid to control HR via PEG and then additional IV Lopressor for added rate control as BP tolerates 3. Eliquis 5 mg BID, Lipitor 80 qd 4. Continue vent support O2 to keep SpO2 >90% 5. Remains off pressor 6. Enteral feeds 7. DVT/GI prophylaxis 8. Oral diuresis to keep even
[2019-03-18] MEDS ORDERED: PT OWN MED DRAWER 7, Y5N ONE ×3 (11:16→22:42)
[2019-03-18] MEDS: FERROUS SO4 300 MG/5 ML ORAL SOLN UNIT DOSE CUPS GT SCH (11:25)
[2019-03-18] MEDS: APIXABAN 5 MG TABLET PEG SCH ×2 (11:25→23:08)
[2019-03-18] MEDS: FLUoxetine HCL 20 MG/5 ML 120 BOTTLE PO SCH (11:26)
[2019-03-18] MEDS: FAMOTIDINE 40 MG/5 ML ORAL SUSPENSION PEG SCH ×2 (11:26→23:08)
[2019-03-18] MEDS: FUROSEMIDE 40 MG/5 ML UNIT-DOSE CUP GT SCH (11:26)
--- NOTE | 2019-03-18 12:06 | PN ---
Progress Note (short form) - Note Progress Note: PULMONARY Vented, arousable. No fevers recorded. Heart rates controlled. Vital Signs Period Temp Pulse Resp BP Sys/[place] Pulse Ox Last 24 Hr 97.3 F-98.3 F 79-94 18-22 108-123/48-70 100-100 Gen: vented, arousable Heart: irregular Lung: scattered rhonchi Abd: soft, nontender Ext: + edema CBC, BMP 03/17/19 07:00 03/17/19 07:00 Active Medications Albuterol Sulfate (Ventolin 0.083% Nebulizer Soln -) 1 amp NEB Q4H PRN PRN Reason: SHORT OF BREATH/WHEEZING Apixaban (Eliquis -) 5 mg PEG BID [facility] Last Admin: 03/18/19 11:25 Dose: 5 mg Atorvastatin Calcium (Lipitor -) 80 mg PO HS [facility] Last Admin: 03/17/19 22:50 Dose: 80 mg Famotidine (Pepcid) 20 mg PEG BID [facility] Last Admin: 03/18/19 11:26 Dose: 20 mg Ferrous Sulfate (Feosol) 300 mg GT DAILY [facility] Last Admin: 03/18/19 11:25 Dose: 300 mg Fluoxetine HCl (Prozac Oral Solution -) 20 mg PO DAILY [facility] Last Admin: 03/18/19 11:26 Dose: 20 mg Furosemide (Lasix Oral Solution -) 40 mg GT DAILY [facility] Last Admin: 03/18/19 11:26 Dose: 40 mg Ceftazidime/Avibactam 2.5 gm/ (Dextrose) 250 mls @ 125 mls/hr IVPB Q8H-IV [facility]; Protocol Last Admin: 03/18/19 11:25 Dose: 125 mls/hr Insulin Aspart (Novolog Vial Sliding Scale -) 1 vial SQ Q6HPO [facility]; Protocol Last Admin: 03/18/19 11:40 Dose: 4 units Insulin Detemir (Levemir Vial) 10 units SQ AM [facility] Last Admin: 03/18/19 06:40 Dose: 10 units Metoprolol Tartrate (Lopressor -) 75 mg PO TID [facility] Last Admin: 03/18/19 06:40 Dose: 75 mg Nystatin (Nystop Powder -) 1 applic TP TID [facility] Last Admin: 03/18/19 06:40 Dose: 1 applic A/P Acute on Chronic Hypoxic Respiratory Failure UTI Gram Positive Bacteremia Decubitus Ulcers Septic Shock Atrial Fibrillation with RVR s/p PPM COPD HTN DM h/o GI Bleed h/o CVA Anemia - continue antibiotics - strict isolation - rate control - continue anticoagulation - lasix as needed - O2 to keep SpO2 >90% - continue assist control - enteral feeds - DVT/GI prophylaxis
--- NOTE | 2019-03-18 12:14 | PN ---
Progress Note, Physician Chief Complaint: Sepsis UTI Stage 4 decubitus ulcer Bacteremia History of Present Illness: NAD mech vent Afebrile leuks improved Still on IV abx - Current Medication List Current Medications: Active Medications Albuterol Sulfate (Ventolin 0.083% Nebulizer Soln -) 1 amp NEB Q4H PRN PRN Reason: SHORT OF BREATH/WHEEZING Apixaban (Eliquis -) 5 mg PEG BID [facility] Last Admin: 03/18/19 11:25 Dose: 5 mg Atorvastatin Calcium (Lipitor -) 80 mg PO HS [facility] Last Admin: 03/17/19 22:50 Dose: 80 mg Famotidine (Pepcid) 20 mg PEG BID [facility] Last Admin: 03/18/19 11:26 Dose: 20 mg Ferrous Sulfate (Feosol) 300 mg GT DAILY [facility] Last Admin: 03/18/19 11:25 Dose: 300 mg Fluoxetine HCl (Prozac Oral Solution -) 20 mg PO DAILY [facility] Last Admin: 03/18/19 11:26 Dose: 20 mg Furosemide (Lasix Oral Solution -) 40 mg GT DAILY [facility] Last Admin: 03/18/19 11:26 Dose: 40 mg Ceftazidime/Avibactam 2.5 gm/ (Dextrose) 250 mls @ 125 mls/hr IVPB Q8H-IV [facility]; Protocol Last Admin: 03/18/19 11:25 Dose: 125 mls/hr Insulin Aspart (Novolog Vial Sliding Scale -) 1 vial SQ Q6HPO [facility]; Protocol Last Admin: 03/18/19 11:40 Dose: 4 units Insulin Detemir (Levemir Vial) 10 units SQ AM [facility] Last Admin: 03/18/19 06:40 Dose: 10 units Metoprolol Tartrate (Lopressor -) 75 mg PO TID [facility] Last Admin: 03/18/19 06:40 Dose: 75 mg Nystatin (Nystop Powder -) 1 applic TP TID [facility] Last Admin: 03/18/19 06:40 Dose: 1 applic - Objective Vital Signs: Vital Signs Temperature 97.6 F 03/18/19 11:10 Pulse Rate 92 H 03/18/19 11:10 Respiratory Rate 20 03/18/19 11:10 Blood Pressure 108/56 L 03/18/19 11:10 O2 Sat by Pulse Oximetry (%) 100 03/17/19 21:00 Constitutional: Yes: Well Nourished, No Distress, Calm Cardiovascular: Yes: Regular Rate and Rhythm Respiratory: Yes: Mechanically Ventilated, Rhonchi (diffuse) Gastrointestinal: Yes: Normal Bowel Sounds, Soft Genitourinary: Yes: [place] Present Musculoskeletal: Yes: Other (generalized atrophy) Extremities: Yes: WNL Edema: No Peripheral Pulses WNL: Yes Neurological: Yes: Pre-Existing Deficit Labs: CBC, BMP 03/17/19 07:00 03/17/19 07:00 INR, PTT INR 1.61 (0.83-1.09) H 03/10/19 00:05 Assessment/Plan (1) Atrial fibrillation with RVR Assessment/Plan: -Cardiology on board -Eliquis -Metoprolol for rate control Code(s): I48.91 - UNSPECIFIED ATRIAL FIBRILLATION (2) Bacteremia Assessment/Plan: -ID on board -afebrile -Repeat BC negative Microbiology 03/12/19 05:20 Blood Culture - Final Blood - Peripheral Venous NO GROWTH AFTER 5 DAYS INCUBATION 03/12/19 05:27 Blood Culture - Final Blood - Peripheral Venous NO GROWTH AFTER 5 DAYS INCUBATION 03/09/19 22:19 Blood Culture - Final Blood - Peripheral Venous Gemella Species -Ceftazidime day 6 Code(s): R78.81 - BACTEREMIA (3) CHF (congestive heart failure) Assessment/Plan: -CXR shows left pulmonary pleural changes, right base changes have diminished -CXR 03/10/19 shows bibasilar pleural effusion -1L fluid restriction Code(s): I50.9 - HEART FAILURE, UNSPECIFIED (4) Hypernatremia Assessment/Plan: -resolved Code(s): E87.0 - HYPEROSMOLALITY AND HYPERNATREMIA (5) Acute and chronic respiratory failure Assessment/Plan: -Pulm on board -Bronchodilators -mechanically ventilated -CXR shows left pulmonary pleural changes, right base changes have diminished -keep SpO2 >90% Code(s): J96.20 - ACUTE AND CHR RESP FAILURE, UNSP W HYPOXIA OR HYPERCAPNIA (6) CAD (coronary artery disease) Assessment/Plan: -Atorvastatin Code(s): I25.10 - ATHSCL HEART DISEASE OF [place] CORONARY ARTERY W/O ANG PCTRS Qualifiers: Coronary Disease-Associated Artery/Lesion type: [place] artery [place] vs. transplanted heart: [place] heart Associated angina: without angina Qualified Code(s): I25.10 - Atherosclerotic heart disease of [place] coronary artery without angina pectoris (7) Diabetes mellitus Assessment/Plan: -A1c at 7.4 -BGM ACHS -Levemir BID -ISS -TF: Glucerna Code(s): E11.9 - TYPE 2 DIABETES MELLITUS WITHOUT COMPLICATIONS Qualifiers: Diabetes mellitus type: type 2 (8) Sepsis Assessment/Plan: -ID on board -afebrile -Ceftazidime day 6 Code(s): A41.9 - SEPSIS, UNSPECIFIED ORGANISM Qualifiers: Sepsis type: sepsis due to unspecified organism Sepsis acute organ dysfunction status: without acute organ dysfunction Qualified Code(s): A41.9 - Sepsis, unspecified organism (9) Stage 4 skin ulcer of sacral region Assessment/Plan: -Vascular consult -turn q2h -offloading -Rectal tube and FC to avoid contamination of wound -Seen by Vascular surgery -Wound vac Code(s): L98.429 - NON-PRESSURE CHRONIC ULCER OF BACK WITH UNSPECIFIED SEVERITY (10) UTI (urinary tract infection) Assessment/Plan: -ID on board -afebrile -UA shows 3+ leuks, 1+ blood, 2+ protein -UC positive for Klebsiella -Ceftazidime Code(s): N39.0 - URINARY TRACT INFECTION, SITE NOT SPECIFIED Qualifiers: Urinary tract infection type: catheter-associated UTI Indwelling urinary catheter type: unspecified Encounter type: initial encounter Qualified Code( s): T83.511A - Infection and inflammatory reaction due to indwelling urethral catheter, initial encounter; N39.0 - Urinary tract infection, site not specified (11) Ventilator dependent Assessment/Plan: -Mechanically ventilated -Pulm on board Code(s): Z99.11 - DEPENDENCE ON RESPIRATOR [VENTILATOR] STATUS
[2019-03-18] MEDS: ATORVASTATIN CA 80 MG TABLET (FP) PO SCH (23:08)
[2019-03-19] MEDS: CEFTAZIDIME/AVIBACTAM 2.5 GM in DEXTROSE 5%-WATER - 250 ML IVPB SCH ×3 (03:02→18:23)
[2019-03-19] MEDS: METOPROLOL TARTRATE 25 MG TABLET (FP) PO SCH ×3 (05:58→23:19)
[2019-03-19] MEDS: NYSTATIN POWDER 100,000 UNITS/GM - 15 GM TOPICAL POWDER TP SCH ×3 (06:02→23:19)
[2019-03-19] MEDS: INSULIN (LEVEMIR) 100 UNITS/ML UNITS SQ SCH (06:03)
[2019-03-19] MEDS: INSULIN SLIDING SCALE (NOVOLOG) 1 VIAL SQ SCH ×4 (06:03→23:19)
--- NOTE | 2019-03-19 10:24 | PN ---
Progress Note, Physician History of Present Illness: Afebrile, WBC lower. Rate-controlled afib, nonverbal, but awake on chronic vent. - Current Medication List Current Medications: Active Medications Albuterol Sulfate (Ventolin 0.083% Nebulizer Soln -) 1 amp NEB Q4H PRN PRN Reason: SHORT OF BREATH/WHEEZING Apixaban (Eliquis -) 5 mg PEG BID [facility] Last Admin: 03/18/19 23:08 Dose: 5 mg Atorvastatin Calcium (Lipitor -) 80 mg PO HS [facility] Last Admin: 03/18/19 23:08 Dose: 80 mg Famotidine (Pepcid) 20 mg PEG BID [facility] Last Admin: 03/18/19 23:08 Dose: 20 mg Ferrous Sulfate (Feosol) 300 mg GT DAILY [facility] Last Admin: 03/18/19 11:25 Dose: 300 mg Fluoxetine HCl (Prozac Oral Solution -) 20 mg PO DAILY [facility] Last Admin: 03/18/19 11:26 Dose: 20 mg Furosemide (Lasix Oral Solution -) 40 mg GT DAILY [facility] Last Admin: 03/18/19 11:26 Dose: 40 mg Ceftazidime/Avibactam 2.5 gm/ (Dextrose) 250 mls @ 125 mls/hr IVPB Q8H-IV [facility]; Protocol Last Admin: 03/19/19 03:02 Dose: 125 mls/hr Insulin Aspart (Novolog Vial Sliding Scale -) 1 vial SQ Q6HPO [facility]; Protocol Last Admin: 03/19/19 06:03 Dose: 4 units Insulin Detemir (Levemir Vial) 10 units SQ AM [facility] Last Admin: 03/19/19 06:03 Dose: 10 units Metoprolol Tartrate (Lopressor -) 75 mg PO TID [facility] Last Admin: 03/19/19 05:58 Dose: 75 mg Nystatin (Nystop Powder -) 1 applic TP TID [facility] Last Admin: 03/19/19 06:02 Dose: 1 applic - Objective Vital Signs: Vital Signs Temperature 98.5 F 03/19/19 06:00 Pulse Rate 84 03/19/19 08:00 Respiratory Rate 20 03/19/19 08:00 Blood Pressure 112/60 03/19/19 06:00 O2 Sat by Pulse Oximetry (%) 98 03/19/19 08:00 Constitutional: Yes: No Distress, Calm, Thin Neck: Yes: Other (Tracheostomy) Respiratory: Yes: Mechanically Ventilated, Rhonchi Gastrointestinal: Yes: Normal Bowel Sounds, Soft, Other (PEG in situ) Edema: Yes Labs: CBC, BMP 03/17/19 07:00 03/17/19 07:00 INR, PTT INR 1.61 (0.83-1.09) H 03/10/19 00:05 Problem List - Problems (1) Bacteremia Code(s): R78.81 - BACTEREMIA (2) Atrial fibrillation with RVR Code(s): I48.91 - UNSPECIFIED ATRIAL FIBRILLATION (3) Angiodysplasia of colon with hemorrhage Code(s): K55.21 - ANGIODYSPLASIA OF COLON WITH HEMORRHAGE (4) CAD (coronary artery disease) Code(s): I25.10 - ATHSCL HEART DISEASE OF [place] CORONARY ARTERY W/O ANG PCTRS Qualifiers: Coronary Disease-Associated Artery/Lesion type: [place] artery [place] vs. transplanted heart: [place] heart Associated angina: without angina Qualified Code(s): I25.10 - Atherosclerotic heart disease of [place] coronary artery without angina pectoris (5) CVA (cerebral vascular accident) Code(s): I63.9 - CEREBRAL INFARCTION, UNSPECIFIED Qualifiers: CVA mechanism: unspecified Qualified Code(s): I63.9 - Cerebral infarction, unspecified (6) Diabetes mellitus Code(s): E11.9 - TYPE 2 DIABETES MELLITUS WITHOUT COMPLICATIONS Qualifiers: Diabetes mellitus type: type 2 (7) Diastolic dysfunction Code(s): I51.89 - OTHER ILL-DEFINED HEART DISEASES (8) S/P mitral valve repair Code(s): Z98.890 - OTHER SPECIFIED POSTPROCEDURAL STATES (9) Sick sinus syndrome Code(s): I49.5 - SICK SINUS SYNDROME (10) Stage 4 skin ulcer of sacral region Code(s): L98.429 - NON-PRESSURE CHRONIC ULCER OF BACK WITH UNSPECIFIED SEVERITY (11) Tracheostomy care Code(s): Z43.0 - ENCOUNTER FOR ATTENTION TO TRACHEOSTOMY (12) UTI (urinary tract infection) Code(s): N39.0 - URINARY TRACT INFECTION, SITE NOT SPECIFIED Qualifiers: Urinary tract infection type: acute cystitis Hematuria presence: with hematuria Qualified Code(s): N30.01 - Acute cystitis with hematuria (13) Ventilator dependent Code(s): Z99.11 - DEPENDENCE ON RESPIRATOR [VENTILATOR] STATUS Assessment/Plan 02/18/2019 EGD revealing mild patchy antral erythema otherwise unremarkable. No obvious ulcers or angioectasias seen 04/30/2018 Echo: Normal LV size and fxn, severe TR RVSP 50-60 mmHg, mild MR EGD and colonoscopy in 07/2017 revealing gastritis, cecal AVM and four tubular adenomas 12/17/2016 reveal: 03/2009 acute systolic CHF and MO, R&LHc 90% distal OM1, 60% D1, preserved LV fxn, elevated LVEDP [place] severe posterior leaflet prolapse with severe MR->MV annuloplasty repair, afib, sinus arrest->PPM, CAD left alone. [facility] Echo: 06/28/16 normal biventricular fxn, COSMO, mod TR, MV ring Nuc stress 09/13/2016 Anterolateral ischemia/infarct SDS 3 EF 82%, abnl ecg changes 1. Clinical presentation suggests sepsis/septic shock due to source with UTI with GPC bacteremia 2. Acute on chronic diastolic failure 3. Respiratory failure (chronic) on mechanical ventilation s/p tracheostomy and PEG 4. CAD, angina pectoris 5. Permanent AF [id number] score of 9 on DOAC 6. Sick sinus syndrome s/p PPM 7. Post mitral valve repair 8. History of HTN 9. Hypercholesterolemia 10. COPD 11. Acute on CKD with hypernatremia 12. Anemia h/o GI Bleed 13. History of CVA 14. Sacral decubitus ulcer PLAN: 1. Complete antibiotic coverage per C&S 2. Metoprolol 75 tid to control HR via PEG and then additional IV Lopressor for added rate control as BP tolerates 3. Eliquis 5 mg BID, Lipitor 80 qd 4. Continue vent support O2 to keep SpO2 >90% 5. Remains off pressor 6. Enteral feeds 7. DVT/GI prophylaxis 8. Oral diuresis to keep even
[2019-03-19] MEDS ORDERED: PT OWN MED DRAWER 7, Y5N ONE ×4 (10:35→18:18)
--- NOTE | 2019-03-19 10:41 | PN ---
Progress Note (short form) - Note Progress Note: PULMONARY Vented, awake. No fevers recorded. Heart rates controlled. Vital Signs Period Temp Pulse Resp BP Sys/[place] Pulse Ox Last 24 Hr 97.6 F-98.5 F 82-117 16-21 108-126/56-87 98-100 Gen: vented, arousable Heart: irregular Lung: scattered rhonchi Abd: soft, nontender Ext: + edema CBC, BMP 03/17/19 07:00 03/17/19 07:00 Active Medications Albuterol Sulfate (Ventolin 0.083% Nebulizer Soln -) 1 amp NEB Q4H PRN PRN Reason: SHORT OF BREATH/WHEEZING Apixaban (Eliquis -) 5 mg PEG BID [facility] Last Admin: 03/18/19 23:08 Dose: 5 mg Atorvastatin Calcium (Lipitor -) 80 mg PO HS [facility] Last Admin: 03/18/19 23:08 Dose: 80 mg Famotidine (Pepcid) 20 mg PEG BID [facility] Last Admin: 03/18/19 23:08 Dose: 20 mg Ferrous Sulfate (Feosol) 300 mg GT DAILY [facility] Last Admin: 03/18/19 11:25 Dose: 300 mg Fluoxetine HCl (Prozac Oral Solution -) 20 mg PO DAILY [facility] Last Admin: 03/18/19 11:26 Dose: 20 mg Furosemide (Lasix Oral Solution -) 40 mg GT DAILY [facility] Last Admin: 03/18/19 11:26 Dose: 40 mg Ceftazidime/Avibactam 2.5 gm/ (Dextrose) 250 mls @ 125 mls/hr IVPB Q8H-IV [facility]; Protocol Last Admin: 03/19/19 03:02 Dose: 125 mls/hr Insulin Aspart (Novolog Vial Sliding Scale -) 1 vial SQ Q6HPO [facility]; Protocol Last Admin: 03/19/19 06:03 Dose: 4 units Insulin Detemir (Levemir Vial) 10 units SQ AM [facility] Last Admin: 03/19/19 06:03 Dose: 10 units Metoprolol Tartrate (Lopressor -) 75 mg PO TID [facility] Last Admin: 03/19/19 05:58 Dose: 75 mg Nystatin (Nystop Powder -) 1 applic TP TID [facility] Last Admin: 03/19/19 06:02 Dose: 1 applic A/P Acute on Chronic Hypoxic Respiratory Failure UTI Gram Positive Bacteremia Decubitus Ulcers Septic Shock Atrial Fibrillation with RVR s/p PPM COPD HTN DM h/o GI Bleed h/o CVA Anemia - continue antibiotics - strict isolation - rate control - continue anticoagulation - lasix as needed - O2 to keep SpO2 >90% - continue assist control - enteral feeds - DVT/GI prophylaxis
[2019-03-19] MEDS: APIXABAN 5 MG TABLET PEG SCH ×2 (10:46→23:18)
[2019-03-19] MEDS: FAMOTIDINE 40 MG/5 ML ORAL SUSPENSION PEG SCH ×2 (10:46→23:18)
[2019-03-19] MEDS: FERROUS SO4 300 MG/5 ML ORAL SOLN UNIT DOSE CUPS GT SCH (10:46)
[2019-03-19] MEDS: FUROSEMIDE 40 MG/5 ML UNIT-DOSE CUP GT SCH ×2 (11:19→14:04)
--- NOTE | 2019-03-19 12:35 | PN ---
Progress Note, Physician Chief Complaint: Sepsis UTI Stage 4 decubitus ulcer Bacteremia History of Present Illness: NAD mech vent Afebrile leuks improved Still on IV abx day 7 - Current Medication List Current Medications: Active Medications Albuterol Sulfate (Ventolin 0.083% Nebulizer Soln -) 1 amp NEB Q4H PRN PRN Reason: SHORT OF BREATH/WHEEZING Apixaban (Eliquis -) 5 mg PEG BID [facility] Last Admin: 03/19/19 10:46 Dose: 5 mg Atorvastatin Calcium (Lipitor -) 80 mg PO HS [facility] Last Admin: 03/18/19 23:08 Dose: 80 mg Famotidine (Pepcid) 20 mg PEG BID [facility] Last Admin: 03/19/19 10:46 Dose: 20 mg Ferrous Sulfate (Feosol) 300 mg GT DAILY [facility] Last Admin: 03/19/19 10:46 Dose: 300 mg Fluoxetine HCl (Prozac Oral Solution -) 20 mg PO DAILY [facility] Last Admin: 03/18/19 11:26 Dose: 20 mg Furosemide (Lasix Oral Solution -) 40 mg GT DAILY [facility] Last Admin: 03/19/19 11:19 Dose: Not Given Ceftazidime/Avibactam 2.5 gm/ (Dextrose) 250 mls @ 125 mls/hr IVPB Q8H-IV [facility]; Protocol Last Admin: 03/19/19 10:46 Dose: 125 mls/hr Insulin Aspart (Novolog Vial Sliding Scale -) 1 vial SQ Q6HPO [facility]; Protocol Last Admin: 03/19/19 06:03 Dose: 4 units Insulin Detemir (Levemir Vial) 10 units SQ AM [facility] Last Admin: 03/19/19 06:03 Dose: 10 units Metoprolol Tartrate (Lopressor -) 75 mg PO TID [facility] Last Admin: 03/19/19 05:58 Dose: 75 mg Nystatin (Nystop Powder -) 1 applic TP TID [facility] Last Admin: 03/19/19 06:02 Dose: 1 applic - Objective Vital Signs: Vital Signs Temperature 98.4 F 03/19/19 11:00 Pulse Rate 80 03/19/19 11:00 Respiratory Rate 18 03/19/19 12:12 Blood Pressure 97/74 03/19/19 11:00 O2 Sat by Pulse Oximetry (%) 98 03/19/19 08:00 Constitutional: Yes: Well Nourished, No Distress, Calm Cardiovascular: Yes: Regular Rate and Rhythm Respiratory: Yes: Regular, Mechanically Ventilated, Rhonchi Genitourinary: Yes: [place] Present Musculoskeletal: Yes: Muscle Weakness Extremities: Yes: Other (generalized atrophy) Edema: No Peripheral Pulses WNL: Yes Neurological: Yes: Pre-Existing Deficit Labs: CBC, BMP 03/17/19 07:00 03/17/19 07:00 INR, PTT INR 1.61 (0.83-1.09) H 03/10/19 00:05 Assessment/Plan (1) Atrial fibrillation with RVR Assessment/Plan: -Cardiology on board -Eliquis -Metoprolol for rate control Code(s): I48.91 - UNSPECIFIED ATRIAL FIBRILLATION (2) Bacteremia Assessment/Plan: -ID on board -afebrile -Repeat BC negative Microbiology 03/12/19 05:20 Blood Culture - Final Blood - Peripheral Venous NO GROWTH AFTER 5 DAYS INCUBATION 03/12/19 05:27 Blood Culture - Final Blood - Peripheral Venous NO GROWTH AFTER 5 DAYS INCUBATION 03/09/19 22:19 Blood Culture - Final Blood - Peripheral Venous Gemella Species -Ceftazidime day 7 Code(s): R78.81 - BACTEREMIA (3) CHF (congestive heart failure) Assessment/Plan: -CXR shows left pulmonary pleural changes, right base changes have diminished -CXR 03/10/19 shows bibasilar pleural effusion -1L fluid restriction Code(s): I50.9 - HEART FAILURE, UNSPECIFIED (4) Hypernatremia Assessment/Plan: -resolved Code(s): E87.0 - HYPEROSMOLALITY AND HYPERNATREMIA (5) Acute and chronic respiratory failure Assessment/Plan: -Pulm on board -Bronchodilators -mechanically ventilated -CXR shows left pulmonary pleural changes, right base changes have diminished -keep SpO2 >90% Code(s): J96.20 - ACUTE AND CHR RESP FAILURE, UNSP W HYPOXIA OR HYPERCAPNIA (6) CAD (coronary artery disease) Assessment/Plan: -Atorvastatin Code(s): I25.10 - ATHSCL HEART DISEASE OF [place] CORONARY ARTERY W/O ANG PCTRS Qualifiers: Coronary Disease-Associated Artery/Lesion type: [place] artery [place] vs. transplanted heart: [place] heart Associated angina: without angina Qualified Code(s): I25.10 - Atherosclerotic heart disease of [place] coronary artery without angina pectoris (7) Diabetes mellitus Assessment/Plan: -A1c at 7.4 -BGM ACHS -Levemir BID -ISS -TF: Glucerna Code(s): E11.9 - TYPE 2 DIABETES MELLITUS WITHOUT COMPLICATIONS Qualifiers: Diabetes mellitus type: type 2 (8) Sepsis Assessment/Plan: -ID on board -afebrile -Ceftazidime day 6 Code(s): A41.9 - SEPSIS, UNSPECIFIED ORGANISM Qualifiers: Sepsis type: sepsis due to unspecified organism Sepsis acute organ dysfunction status: without acute organ dysfunction Qualified Code(s): A41.9 - Sepsis, unspecified organism (9) Stage 4 skin ulcer of sacral region Assessment/Plan: -Vascular consult -turn q2h -offloading -Rectal tube and FC to avoid contamination of wound -Seen by Vascular surgery -Wound vac Code(s): L98.429 - NON-PRESSURE CHRONIC ULCER OF BACK WITH UNSPECIFIED SEVERITY (10) UTI (urinary tract infection) Assessment/Plan: -ID on board -afebrile -UA shows 3+ leuks, 1+ blood, 2+ protein -UC positive for Klebsiella -Ceftazidime Code(s): N39.0 - URINARY TRACT INFECTION, SITE NOT SPECIFIED Qualifiers: Urinary tract infection type: catheter-associated UTI Indwelling urinary catheter type: unspecified Encounter type: initial encounter Qualified Code( s): T83.511A - Infection and inflammatory reaction due to indwelling urethral catheter, initial encounter; N39.0 - Urinary tract infection, site not specified (11) Ventilator dependent Assessment/Plan: -Mechanically ventilated -Pulm on board Code(s): Z99.11 - DEPENDENCE ON RESPIRATOR [VENTILATOR] STATUS Will D/C back to [place] in AM if stable
[2019-03-19 13:38] LABS: BASO % 0.3 % (0-2.0); EOS % 6.9 % (0-4.5); HEMATOCRIT 25.8 % (32.4-45.2); HEMOGLOBIN 8.1 GM/dL (10.7-15.3); LYMPH % 11.4 % (8-40); MCHC 31.2 g/dl (32.0-36.0); MEAN CELL VOLUME 80.2 fl (80-96); MEAN PLT VOLUME 9.1 fl (7.5-11.1); NEUT % 75.4 % (42.8-82.8); PLATELET COUNT 435 K/MM3 (134-434); RBC 3.22 M/mm3 (3.60-5.2); WHITE BLOOD COUNT 13.4 K/mm3 (4.0-10.0)
[2019-03-19] MEDS: FLUoxetine HCL 20 MG/5 ML 120 BOTTLE PO SCH (13:59)
[2019-03-19] MEDS: ATORVASTATIN CA 80 MG TABLET (FP) PO SCH (23:18)
[2019-03-20] MEDS: METOPROLOL TARTRATE 25 MG TABLET (FP) PO SCH ×3 (06:52→22:34)
[2019-03-20] MEDS: NYSTATIN POWDER 100,000 UNITS/GM - 15 GM TOPICAL POWDER TP SCH ×3 (06:53→22:34)
[2019-03-20] MEDS: INSULIN (LEVEMIR) 100 UNITS/ML UNITS SQ SCH (06:55)
[2019-03-20] MEDS: INSULIN SLIDING SCALE (NOVOLOG) 1 VIAL SQ SCH ×4 (06:56→23:08)
[2019-03-20 09:27] LABS: BASO % 0.4 % (0-2.0); EOS % 7.6 % (0-4.5); HEMATOCRIT 24.9 % (32.4-45.2); HEMOGLOBIN 7.7 GM/dL (10.7-15.3); LYMPH % 11.8 % (8-40); MEAN CELL VOLUME 80.7 fl (80-96); MEAN PLT VOLUME 9.3 fl (7.5-11.1); MONO % 7.3 % (3.8-10.2); NEUT % 72.9 % (42.8-82.8); PLATELET COUNT 395 K/MM3 (134-434); RBC 3.09 M/mm3 (3.60-5.2); RDW 19.2 % (11.6-15.6); WHITE BLOOD COUNT 12.2 K/mm3 (4.0-10.0)
[2019-03-20] MEDS ORDERED: PT OWN MED DRAWER 7, Y5N ONE ×2 (09:40→11:52)
--- NOTE | 2019-03-20 11:43 | DS ---
Physical Examination Vital Signs: Vital Signs Temperature 98.8 F 03/20/19 06:00 Pulse Rate 81 03/20/19 08:15 Respiratory Rate 15 03/20/19 08:15 Blood Pressure 124/59 L 03/20/19 06:00 O2 Sat by Pulse Oximetry (%) 100 03/20/19 08:15 Findings/Remarks: Laboratory Last Values WBC 12.2 K/mm3 (4.0-10.0) H 03/20/19 06:15 RBC 3.09 M/mm3 (3.60-5.2) L 03/20/19 06:15 Hgb 7.7 GM/dL (10.7-15.3) L 03/20/19 06:15 Hct 24.9 % (32.4-45.2) L 03/20/19 06:15 MCV 80.7 fl (80-96) 03/20/19 06:15 MCH 25.0 pg (25.7-33.7) L 03/20/19 06:15 MCHC 31.0 g/dl (32.0-36.0) L 03/20/19 06:15 RDW 19.2 % (11.6-15.6) H 03/20/19 06:15 Plt Count 395 K/MM3 (134-434) 03/20/19 06:15 MPV 9.3 fl (7.5-11.1) 03/20/19 06:15 Absolute Neuts (auto) 8.9 K/mm3 (1.5-8.0) H 03/20/19 06:15 Total Counted 100 03/09/19 22:19 Neutrophils % 72.9 % (42.8-82.8) 03/20/19 06:15 Neutrophils % (Manual) 60.0 % (42.8-82.8) 03/17/19 07:00 Band Neutrophils % 7.0 % 03/17/19 07:00 Lymphocytes % 11.8 % (8-40) 03/20/19 06:15 Lymphocytes % (Manual) 8.0 % (8-40) 03/17/19 07:00 Monocytes % 7.3 % (3.8-10.2) 03/20/19 06:15 Monocytes % (Manual) 7 % (3.8-10.2) D 03/17/19 07:00 Eosinophils % 7.6 % (0-4.5) H 03/20/19 06:15 Eosinophils % (Manual) 9.0 % (0-4.5) H D 03/17/19 07:00 Basophils % 0.4 % (0-2.0) 03/20/19 06:15 Basophils % (Manual) 0.0 % (0-2.0) 03/17/19 07:00 Myelocytes % (Man) 2 % (0-2) D 03/17/19 07:00 Promyelocytes % (Man) 2 % (0-2) D 03/17/19 07:00 Blast Cells % (Manual) 0 % (0-0) 03/17/19 07:00 Nucleated RBC % 0 % (0-0) 03/20/19 06:15 Metamyelocytes 0 % (0-2) 03/17/19 07:00 Hypochromia 1+ 03/17/19 07:00 Platelet Estimate Normal 03/17/19 07:00 Platelet Comment Present 03/17/19 07:00 Polychromasia 1+ 03/17/19 07:00 Poikilocytosis 1+ 03/17/19 07:00 Anisocytosis 2+ 03/17/19 07:00 Microcytosis 2+ 03/17/19 07:00 Macrocytosis 0 03/17/19 07:00 Spherocytes 1+ 03/17/19 07:00 Target Cells 1+ 03/17/19 07:00 Tear Drop Cells 1+ 03/17/19 07:00 Ovalocytes 1+ 03/17/19 07:00 Chriss Cells 1+ 03/17/19 07:00 Acanthocytes (Spur) 1+ 03/17/19 07:00 PT with INR 19.10 SEC (9.7-13.0) H 03/10/19 00:05 INR 1.61 (0.83-1.09) H 03/10/19 00:05 Anticoagulation Therapy No Result Required. 03/10/19 06:30 Puncture Site Left radial 03/10/19 06:30 ABG pH 7.45 (7.35-7.45) 03/10/19 06:30 ABG pCO2 at Pt Temp 43.7 mmHg (35-45) 03/10/19 06:30 ABG pO2 at Pt Temp 83.9 mmHg (80-100) 03/10/19 06:30 ABG HCO3 29.7 mmol/L (22-27) H 03/10/19 06:30 ABG O2 Sat (Measured) 96.0 % (95-98) 03/10/19 06:30 ABG O2 Content 13.4 % vol 03/10/19 06:30 ABG Base Excess 5.5 meq/l (-2-2) H 03/10/19 06:30 Joel Test Positive 03/10/19 06:30 VBG pH 7.45 (7.31-7.41) H 03/09/19 22:19 POC VBG pCO2 49.8 mmHg (38-52) 03/09/19 22:19 POC VBG pO2 < 49 mmHg (28-48) H 03/09/19 22:19 VBG HCO3 33.6 mmol/L (23-29) H 03/09/19 22:19 VBG O2 Sat (Dylan) 71.1 % (70-80) 03/09/19 22:19 VBG Base Excess 8.8 meq/l (-2-2) H 03/09/19 22:19 Carboxyhemoglobin 1.4 % (0-2) 03/10/19 02:00 Methemoglobin < 1.0 % (0-2) 03/10/19 02:00 O2 Delivery Device Vent 03/10/19 06:30 Oxygen Flow Rate 50% 03/10/19 06:30 Vent Mode A/c 03/10/19 06:30 Vent Rate 12 03/10/19 06:30 Mechanical Rate Yes 03/10/19 06:30 PEEP 5.0 cmH2O 03/10/19 06:30 Pressure Support Vent 350 03/10/19 06:30 Sodium 138 mmol/L (136-145) 03/17/19 07:00 Potassium 4.4 mmol/L (3.5-5.1) 03/17/19 07:00 Chloride 104 mmol/L (98-107) 03/17/19 07:00 Carbon Dioxide 30 mmol/L (21-32) 03/17/19 07:00 Anion Gap 4 MMOL/L (8-16) L 03/17/19 07:00 BUN 21.0 mg/dL (7-18) H 03/17/19 07:00 Creatinine 0.6 mg/dL (0.55-1.3) 03/17/19 07:00 Est GFR (CKD-EPI)AfAm 101.90 03/17/19 07:00 Est GFR (CKD-EPI)NonAf 87.92 03/17/19 07:00 POC Glucometer 194 UNITS (80-120) 03/20/19 06:09 Random Glucose 213 mg/dL (74-106) H 03/17/19 07:00 Lactic Acid 1.5 mmol/L (0.4-2.0) 03/10/19 01:59 Calcium 8.3 mg/dL (8.5-10.1) L 03/17/19 07:00 Phosphorus 2.4 mg/dL (2.5-4.9) L 03/12/19 05:20 Magnesium 2.3 mg/dL (1.8-2.4) 03/13/19 07:00 Total Bilirubin 0.2 mg/dL (0.2-1) 03/17/19 07:00 AST 24 U/L (15-37) 03/17/19 07:00 ALT 23 U/L (13-61) 03/17/19 07:00 Alkaline Phosphatase 240 U/L (45-117) H 03/17/19 07:00 Troponin I 0.03 ng/ml (0.00-0.05) 03/10/19 09:00 Total Protein 5.5 g/dl (6.4-8.2) L 03/17/19 07:00 Albumin 1.4 g/dl (3.4-5.0) L 03/17/19 07:00 TSH 2.54 uIU/ml (0.358-3.74) 03/10/19 06:00 Urine Color Yellow 03/10/19 06:00 Urine Appearance Cloudy 03/10/19 06:00 Urine pH 5.5 (5.0-8.0) 03/10/19 06:00 Ur Specific [place] 1.024 (1.010-1.035) 03/10/19 06:00 Urine Protein 2+ (NEGATIVE) H 03/10/19 06:00 Urine Glucose (UA) Negative (NEGATIVE) 03/10/19 06:00 Urine Ketones Negative (NEGATIVE) 03/10/19 06:00 Urine Blood 1+ (NEGATIVE) H 03/10/19 06:00 Urine Nitrite Negative (NEGATIVE) 03/10/19 06:00 Urine Bilirubin Negative (NEGATIVE) 03/10/19 06:00 Urine Urobilinogen 0.2 mg/dL (0.2-1.0) 03/10/19 06:00 Ur Leukocyte Esterase 2+ (NEGATIVE) H 03/10/19 06:00 Urine WBC (Auto) 27 /hpf (0-5) 03/10/19 06:00 Urine RBC (Auto) 23 /hpf (0-4) 03/10/19 06:00 Urine Casts (Auto) 218 /lpf (0-8) 03/10/19 06:00 U Pathogenic Cast Auto None /lpf (NEGATIVE) 03/10/19 06:00 U Epithel Cells (Auto) >36 /HPF (0-5/HPF) 03/10/19 06:00 Urine Bacteria (Auto) 10.8 /hpf (NEGATIVE) 03/10/19 06:00 Urine Yeast (Auto) Moderate (NEGATIVE) 03/09/19 23:14 Urine Eosinophils None seen % (.) 03/11/19 17:30 Ur Random Creatinine 21.0 mg/dL (30-150) L 03/11/19 17:30 Ur Random Sodium 15 MMOL/L (40-220) L 03/10/19 22:10 Ur Random Potassium 38.0 MMOL/L (25-125) 03/10/19 22:10 Ur Random Chloride < 11 MMOL/L (110-250) L 03/10/19 22:10 Random Vancomycin 14.1 ug/ml (18-26) L 03/18/19 06:00 Vancomycin Pre-Dose 44.1 ug/ml (18-26) H* 03/14/19 10:05 Home Medication List Medication Instructions Recorded Confirmed Type Fluoxetine HCl Liquid [Prozac 20 mg PO DAILY 04/28/18 03/09/19 History 20mg/5mL Oral Solution -] Furosemide [Lasix -] 20 mg PO BID@0600,1400 04/28/18 03/09/19 History Metoprolol Tartrate [Lopressor -] 75 mg PO TID 04/28/18 03/09/19 History Active Medications Generic Name Dose Route Start Last Admin Trade Name Freq PRN Reason Stop Dose Admin Albuterol Sulfate 1 amp 03/12/19 21:56 Ventolin 0.083% Nebulizer Soln - NEB Q4H PRN SHORT OF BREATH/WHEEZING Apixaban 5 mg 03/12/19 22:00 03/19/19 23:18 Eliquis - PEG 5 mg BID BAHMAN Administration Atorvastatin Calcium 80 mg 03/12/19 22:00 03/19/19 23:18 Lipitor - PO 80 mg HS [facility]MAN Administration Famotidine 20 mg 03/12/19 22:00 03/19/19 23:18 Pepcid PEG 20 mg BID [facility]AHMAN Administration Ferrous Sulfate 300 mg 03/18/19 10:00 03/19/19 10:46 Feosol GT 300 mg DAILY [facility] Administration Fluoxetine HCl 20 mg 03/13/19 10:00 03/19/19 13:59 Prozac Oral Solution - PO 20 mg DAILY [facility] Administration Furosemide 40 mg 03/16/19 13:09 03/19/19 14:04 Lasix Oral Solution - GT 40 mg DAILY [facility] Administration Insulin Aspart 1 vial 03/13/19 00:00 03/20/19 06:56 Novolog Vial Sliding Scale - SQ 2 units Q6HPO [facility] Administration Protocol Insulin Detemir 10 units 03/13/19 22:00 03/20/19 06:55 Levemir Vial SQ 10 units AM [facility] Administration Metoprolol Tartrate 75 mg 03/12/19 22:00 03/20/19 06:52 Lopressor - PO 75 mg TID [facility] Administration Nystatin 1 applic 03/12/19 22:00 03/20/19 06:53 Nystop Powder - TP 1 applic TID [facility] Administration Microbiology 03/12/19 05:20 Blood - Peripheral Venous Blood Culture - Final NO GROWTH AFTER 5 DAYS INCUBATION 03/12/19 05:27 Blood - Peripheral Venous Blood Culture - Final NO GROWTH AFTER 5 DAYS INCUBATION 03/09/19 22:19 Blood - Peripheral Venous Blood Culture - Final Gemella Species 03/10/19 00:05 Neck Gram Stain - Final 03/10/19 00:05 Neck Wound Culture - Final Enterobacter Cloacae Stenotrophomon.(X.)Maltophilia Diphtheroid/Corynebacterium Enterococcus Faecalis 03/10/19 05:00 Wound Gram Stain - Final 03/10/19 05:00 Wound Wound Culture - Final Klebsiella Pneumoniae - Esbl Enterococcus Faecalis Staphylococcus Aureus 03/10/19 06:00 Sputum - Endotrachea Suction/Ventilator Gram Stain - Final 03/10/19 06:00 Sputum - Endotrachea Suction/Ventilator Sputum Culture - Final Stenotrophomon.(X.)Maltophilia Klebsiella Pneumoniae - Esbl 03/09/19 22:19 Blood - Peripheral Venous Blood Culture - Final Gemella Species 03/09/19 23:14 Urine - Urine [place] Urine Culture - Final Klebsiella Pneumoniae - Esbl 03/10/19 00:00 Urine - Urine - Catheterized Urine Culture - Final Lactose Fermenting Neg Bacilli Lactose Fermenting Neg Bacilli#2 Constitutional: Yes: No Distress, Calm Eyes: Yes: Conjunctiva Clear HENT: Yes: Atraumatic Neck: Yes: Other (trach) Cardiovascular: Yes: Regular Rate and Rhythm Respiratory: Yes: Regular, Diminished, Mechanically Ventilated Gastrointestinal: Yes: Normal Bowel Sounds, Soft, Other (Gtube) ...Rectal Exam: Yes: Other (rectal tube) Renal/: Yes: [place] Present Musculoskeletal: Yes: Muscle Weakness Extremities: Yes: WNL Edema: No Wound/Incision: Yes: Other (wound vac) Neurological: Yes: Alert, Pre-Existing Deficit Psychiatric: Yes: Alert, Oriented Labs: CBC, BMP 03/20/19 06:15 03/17/19 07:00 Discharge Summary Problems reviewed: Yes Reason For Visit: URINARY TRACT INFECTION, SEPSIS Current Active Problems Atrial fibrillation with RVR (Acute) Bacteremia (Acute) CHF (congestive heart failure) (Acute) Hypernatremia (Acute) Hospital Course: This is a 79 y/o woman from [facility] with a PMHx of CAD, Afib (on Eliquis), Sick Sinus Syndrome s/p PPM, CVA (RUE/LE residual, non-verbal), Chronic Respiratory Failure s/p trach- vent dependent, COPD, HTN, DM, GIB, Sacral Wound. Who presents to the ED with fever 100.6 and HR 150at 20:45 last night sent it for evaluation. Patient has a history of CVA is non-verbal and is trach- vent dependent. Patient's spouse was at bedside, provided HPI. ED course was noted for fever, tachycardia, hypotension and elevated LA. Sepsis protocol was started and ID consulted. She was treat with IV antibiotics. UC and wound culture positive. Responded well to IV antibiotic treatment and will be discharged back to SNF. Condition: Stable - Instructions Diet, Activity, Other Instructions: Follow up with PMD In 1 week continue with medication as prescribed turn q2h, offloading, continue wound vac continue Gtube feedings return to ER if develop severe pain, respiratory distress, chest pain/rapid heart rate monitor CBC on 03/2019 to check Hg and consider biweekly CBC to monitor Hg Referrals: Jagjit Tavares MD [Primary Care Provider] - Disposition: NURSING HOME FACILITY - Home Medications Comprehensive Discharge Medication List: Ambulatory Orders Apixaban [Eliquis -] 5 mg PO BID tablet 07/26/17 Ascorbic Acid [Vitamin C -] 500 mg PO DAILY 30 Days #60 tablet MDD 2 07/26/17 Atorvastatin Ca [Lipitor] 80 mg PO HS tablet 07/26/17 Ferrous Sulfate [Feosol] 325 mg PO DAILY@0800 ud 07/26/17 Fluoxetine HCl Liquid [Prozac 20mg/5mL Oral Solution -] 20 mg PO DAILY 04/28/18 Furosemide [Lasix -] 20 mg PO BID@0600,1400 04/28/18 Metoprolol Tartrate [Lopressor -] 75 mg PO TID 04/28/18 Lisinopril [Prinivil] 10 mg PO DAILY #30 tablet MDD 1 05/02/18 Ranolazine [Ranexa -] 500 mg PO BID tab 06/30/18 Albuterol 0.083% Nebulizer Sandrita [Ventolin 0.083% Nebulizer Soln -] 1 amp NEB Q4H PRN amp 02/23/19 Apixaban [Eliquis -] 5 mg PO BID tablet 02/23/19 Furosemide [Lasix -] 20 mg PO BID@0600,1400 tablet 02/23/19 Insulin Sliding Scale [Novolog Vial Sliding Scale -] 1 vial SQ ACHS units 02/23 Lisinopril [Prinivil] 10 mg PEG DAILY tablet 02/23/19 Nystatin Powder [Nystop Powder -] 1 applic TP TID applic 02/23/19 Acetaminophen [Tylenol .Regular Strength -] 650 mg PO Q6H PRN tablet 03/03/19 Ferrous Sulfate [Feosol] 300 mg GT BID udc 03/03/19 Insulin (Levemir) [Levemir Vial] 10 units SQ 0700,2200 units 03/03/19 Pantoprazole Suspension [Protonix Packets For Oral Suspension -] 40 mg PEG DAILY packet 03/03/19 Sodium Hypochlorite [Dakin's Solution 0.25% (Half-Strength) -] 1 applic TP DAILY ml 03/03/19 Apixaban [Eliquis -] 5 mg PEG BID tablet 03/20/19 Ferrous Sulfate [Feosol] 300 mg GT DAILY [facility] [place] 03/20/19 Furosemide Oral Solution [Lasix Oral Solution -] 40 mg GT DAILY [facility] [place] 03/20/19 Insulin (Levemir) [Levemir Vial] 10 units SQ AM units 03/20/19 Insulin Sliding Scale [Novolog Vial Sliding Scale -] 1 vial SQ Q6HPO units
--- NOTE | 2019-03-20 11:47 | PN ---
Progress Note, Physician History of Present Illness: Afebrile, WBC lower. Rate-controlled afib, nonverbal, but awake on chronic vent. - Current Medication List Current Medications: Active Medications Albuterol Sulfate (Ventolin 0.083% Nebulizer Soln -) 1 amp NEB Q4H PRN PRN Reason: SHORT OF BREATH/WHEEZING Apixaban (Eliquis -) 5 mg PEG BID [facility] Last Admin: 03/19/19 23:18 Dose: 5 mg Atorvastatin Calcium (Lipitor -) 80 mg PO HS [facility] Last Admin: 03/19/19 23:18 Dose: 80 mg Famotidine (Pepcid) 20 mg PEG BID [facility] Last Admin: 03/19/19 23:18 Dose: 20 mg Ferrous Sulfate (Feosol) 300 mg GT DAILY [facility] Last Admin: 03/19/19 10:46 Dose: 300 mg Fluoxetine HCl (Prozac Oral Solution -) 20 mg PO DAILY [facility] Last Admin: 03/19/19 13:59 Dose: 20 mg Furosemide (Lasix Oral Solution -) 40 mg GT DAILY [facility] Last Admin: 03/19/19 14:04 Dose: 40 mg Insulin Aspart (Novolog Vial Sliding Scale -) 1 vial SQ Q6HPO [facility]; Protocol Last Admin: 03/20/19 06:56 Dose: 2 units Insulin Detemir (Levemir Vial) 10 units SQ AM [facility] Last Admin: 03/20/19 06:55 Dose: 10 units Metoprolol Tartrate (Lopressor -) 75 mg PO TID [facility] Last Admin: 03/20/19 06:52 Dose: 75 mg Nystatin (Nystop Powder -) 1 applic TP TID [facility] Last Admin: 03/20/19 06:53 Dose: 1 applic - Objective Vital Signs: Vital Signs Temperature 98.8 F 03/20/19 06:00 Pulse Rate 81 03/20/19 08:15 Respiratory Rate 15 03/20/19 08:15 Blood Pressure 124/59 L 03/20/19 06:00 O2 Sat by Pulse Oximetry (%) 100 03/20/19 08:15 Constitutional: Yes: No Distress, Calm Neck: Yes: Other (Tracheostomy) Cardiovascular: Yes: Regular Rate and Rhythm Respiratory: Yes: Mechanically Ventilated, Rhonchi Gastrointestinal: Yes: Normal Bowel Sounds, Soft, Other (PEG in place) Edema: Yes Labs: CBC, BMP 03/20/19 06:15 03/17/19 07:00 INR, PTT INR 1.61 (0.83-1.09) H 03/10/19 00:05 Problem List - Problems (1) Bacteremia Code(s): R78.81 - BACTEREMIA (2) Atrial fibrillation with RVR Code(s): I48.91 - UNSPECIFIED ATRIAL FIBRILLATION (3) Angiodysplasia of colon with hemorrhage Code(s): K55.21 - ANGIODYSPLASIA OF COLON WITH HEMORRHAGE (4) CAD (coronary artery disease) Code(s): I25.10 - ATHSCL HEART DISEASE OF [place] CORONARY ARTERY W/O ANG PCTRS Qualifiers: Coronary Disease-Associated Artery/Lesion type: [place] artery [place] vs. transplanted heart: [place] heart Associated angina: without angina Qualified Code(s): I25.10 - Atherosclerotic heart disease of [place] coronary artery without angina pectoris (5) CVA (cerebral vascular accident) Code(s): I63.9 - CEREBRAL INFARCTION, UNSPECIFIED Qualifiers: CVA mechanism: unspecified Qualified Code(s): I63.9 - Cerebral infarction, unspecified (6) Diabetes mellitus Code(s): E11.9 - TYPE 2 DIABETES MELLITUS WITHOUT COMPLICATIONS Qualifiers: Diabetes mellitus type: type 2 (7) Diastolic dysfunction Code(s): I51.89 - OTHER ILL-DEFINED HEART DISEASES (8) S/P mitral valve repair Code(s): Z98.890 - OTHER SPECIFIED POSTPROCEDURAL STATES (9) Sick sinus syndrome Code(s): I49.5 - SICK SINUS SYNDROME (10) Stage 4 skin ulcer of sacral region Code(s): L98.429 - NON-PRESSURE CHRONIC ULCER OF BACK WITH UNSPECIFIED SEVERITY (11) Tracheostomy care Code(s): Z43.0 - ENCOUNTER FOR ATTENTION TO TRACHEOSTOMY (12) UTI (urinary tract infection) Code(s): N39.0 - URINARY TRACT INFECTION, SITE NOT SPECIFIED Qualifiers: Urinary tract infection type: acute cystitis Hematuria presence: with hematuria Qualified Code(s): N30.01 - Acute cystitis with hematuria (13) Ventilator dependent Code(s): Z99.11 - DEPENDENCE ON RESPIRATOR [VENTILATOR] STATUS Assessment/Plan 02/18/2019 EGD revealing mild patchy antral erythema otherwise unremarkable. No obvious ulcers or angioectasias seen 04/30/2018 Echo: Normal LV size and fxn, severe TR RVSP 50-60 mmHg, mild MR EGD and colonoscopy in 07/2017 revealing gastritis, cecal AVM and four tubular adenomas 12/17/2016 reveal: 03/2009 acute systolic CHF and MT, R&LHc 90% distal OM1, 60% D1, preserved LV fxn, elevated LVEDP BULMARO severe posterior leaflet prolapse with severe MR->MV annuloplasty repair, afib, sinus arrest->PPM, CAD left alone. [facility] Echo: 06/28/16 normal biventricular fxn, COSMO, mod TR, MV ring Nuc stress 09/13/2016 Anterolateral ischemia/infarct SDS 3 EF 82%, abnl ecg changes 1. Clinical presentation suggests sepsis/septic shock due to source with UTI with GPC bacteremia 2. Acute on chronic diastolic failure 3. Respiratory failure (chronic) on mechanical ventilation s/p tracheostomy and PEG 4. CAD, angina pectoris 5. Permanent AF [id number] score of 9 on DOAC 6. Sick sinus syndrome s/p PPM 7. Post mitral valve repair 8. History of HTN 9. Hypercholesterolemia 10. COPD 11. Acute on CKD with hypernatremia 12. Anemia h/o GI Bleed 13. History of CVA 14. Sacral decubitus ulcer PLAN: 1. Completed antibiotic coverage per C&S 2. Metoprolol 75 tid to control HR via PEG and then additional IV Lopressor for added rate control as BP tolerates 3. Eliquis 5 mg BID, Lipitor 80 qd 4. Continue vent support O2 to keep SpO2 >90% 5. Remains off pressor 6. Enteral feeds 7. DVT/GI prophylaxis 8. Oral diuresis to keep even 9. D/c planning back to [place]
[2019-03-20] MEDS: FLUoxetine HCL 20 MG/5 ML 120 BOTTLE PO SCH (11:49)
[2019-03-20] MEDS: FAMOTIDINE 40 MG/5 ML ORAL SUSPENSION PEG SCH ×2 (11:50→22:33)
[2019-03-20] MEDS: FERROUS SO4 300 MG/5 ML ORAL SOLN UNIT DOSE CUPS GT SCH (11:50)
[2019-03-20] MEDS: FUROSEMIDE 40 MG/5 ML UNIT-DOSE CUP GT SCH (11:50)
[2019-03-20] MEDS: APIXABAN 5 MG TABLET PEG SCH ×2 (11:50→22:34)
--- NOTE | 2019-03-20 14:17 | PN ---
Progress Note (short form) - Note Progress Note: PULMONARY VSS/afebrile Gen: vented, awake Heart: irregular Lung: scattered rhonchi Abd: soft, nontender Ext: + edema labs/meds/notes/images reviewed ASSESSMENT AND PLAN: Acute on Chronic Hypoxic Respiratory Failure UTI Gram Positive Bacteremia Decubitus Ulcers Septic Shock Atrial Fibrillation with RVR s/p PPM COPD HTN DM h/o GI Bleed h/o CVA Anemia - isolation - rate control - continue anticoagulation - continue lasix - O2 to keep SpO2 >90% - continue assist control - enteral feeds - DVT/GI prophylaxis - continue to monitor on vent floor Amos ASTORGA MD
[2019-03-20] MEDS ORDERED: INSULIN (NOVOLOG) ASPART 100 UNITS/ML 10ML VIAL ONE (18:27)
[2019-03-20] MEDS ORDERED: DEXTROSE 5%-WATER 100 ML IVPB ONE (22:01)
[2019-03-20] MEDS: CEFTRIAXONE 2 GM in DEXTROSE 5%-WATER 100 ML IVPB SCH (22:32)
[2019-03-20] MEDS: ATORVASTATIN CA 80 MG TABLET (FP) PO SCH (22:34)
[2019-03-21] MEDS: METOPROLOL TARTRATE 25 MG TABLET (FP) PO SCH ×2 (06:59→14:57)
[2019-03-21] MEDS: INSULIN (LEVEMIR) 100 UNITS/ML UNITS SQ SCH (06:59)
[2019-03-21] MEDS: NYSTATIN POWDER 100,000 UNITS/GM - 15 GM TOPICAL POWDER TP SCH ×2 (07:01→14:32)
[2019-03-21] MEDS: INSULIN SLIDING SCALE (NOVOLOG) 1 VIAL SQ SCH ×2 (07:01→11:54)
[2019-03-21] MEDS ORDERED: PT OWN MED DRAWER 7, Y5N ONE (09:55)
[2019-03-21] MEDS ORDERED: DEXTROSE 5%-WATER 100 ML IVPB ONE (09:55)
[2019-03-21] MEDS: FERROUS SO4 300 MG/5 ML ORAL SOLN UNIT DOSE CUPS GT SCH (09:57)
[2019-03-21] MEDS: APIXABAN 5 MG TABLET PEG SCH (09:57)
[2019-03-21] MEDS: FAMOTIDINE 40 MG/5 ML ORAL SUSPENSION PEG SCH (09:57)
[2019-03-21] MEDS: FUROSEMIDE 40 MG/5 ML UNIT-DOSE CUP GT SCH (09:57)
[2019-03-21] MEDS: FLUoxetine HCL 20 MG/5 ML 120 BOTTLE PO SCH (09:58)
[2019-03-21] MEDS: CEFTRIAXONE 2 GM in DEXTROSE 5%-WATER 100 ML IVPB SCH (10:32)
--- NOTE | 2019-03-21 11:13 | PN ---
Progress Note, Physician History of Present Illness: AWAKE, NON VERBAL TEMPS REMAIN DOWN AFEBRILE BC GEMELLA SP SPUTUM, URINE , WOUND C/S MIXED INCL CRE - Current Medication List Current Medications: Active Medications Albuterol Sulfate (Ventolin 0.083% Nebulizer Soln -) 1 amp NEB Q4H PRN PRN Reason: SHORT OF BREATH/WHEEZING Last Admin: 03/20/19 22:00 Dose: 1 amp Apixaban (Eliquis -) 5 mg PEG BID [facility] Last Admin: 03/21/19 09:57 Dose: 5 mg Atorvastatin Calcium (Lipitor -) 80 mg PO HS [facility] Last Admin: 03/20/19 22:34 Dose: 80 mg Famotidine (Pepcid) 20 mg PEG BID [facility] Last Admin: 03/21/19 09:57 Dose: 20 mg Ferrous Sulfate (Feosol) 300 mg GT DAILY [facility] Last Admin: 03/21/19 09:57 Dose: 300 mg Fluoxetine HCl (Prozac Oral Solution -) 20 mg PO DAILY [facility] Last Admin: 03/21/19 09:58 Dose: 20 mg Furosemide (Lasix Oral Solution -) 40 mg GT DAILY [facility] Last Admin: 03/21/19 09:57 Dose: 40 mg Ceftriaxone Sodium 2 gm/ (Dextrose) 100 mls @ 200 mls/hr IVPB DAILY [facility]; Protocol Last Admin: 03/21/19 10:32 Dose: 200 mls/hr Insulin Aspart (Novolog Vial Sliding Scale -) 1 vial SQ Q6HPO [facility]; Protocol Last Admin: 03/21/19 07:01 Dose: 2 units Insulin Detemir (Levemir Vial) 10 units SQ AM [facility] Last Admin: 03/21/19 06:59 Dose: 10 units Metoprolol Tartrate (Lopressor -) 75 mg PO TID [facility] Last Admin: 03/21/19 06:59 Dose: 75 mg Nystatin (Nystop Powder -) 1 applic TP TID [facility] Last Admin: 03/21/19 07:01 Dose: 1 applic - Objective Vital Signs: Vital Signs Temperature 97.9 F 03/21/19 09:00 Pulse Rate 88 03/21/19 09:00 Respiratory Rate 18 03/21/19 09:00 Blood Pressure 127/65 03/21/19 09:00 O2 Sat by Pulse Oximetry (%) 100 03/21/19 08:31 Constitutional: Yes: No Distress Eyes: Yes: Conjunctiva Clear Cardiovascular: Yes: Regular Rate and Rhythm Respiratory: Yes: Mechanically Ventilated Gastrointestinal: Yes: Normal Bowel Sounds. No: Tenderness Edema: No Labs: CBC, BMP 03/20/19 06:15 03/17/19 07:00 INR, PTT INR 1.61 (0.83-1.09) H 03/10/19 00:05 Assessment/Plan SEPSIS/ SEPTIC SHOCK IMPROVED STREPTOCOCCAL BACTEREMIA LIKELY WOUND SOURCE UTI SACRAL DECUBITUS ULCER LACTIC ACIDOSIS DM CHRONIC RESP FAILURE HX CRE D/C ANTIBIOTICS, OBSERVE OFF
[2019-03-21] MEDS ORDERED: LISINOPRIL 5 MG TABLET (FP) PO ONE (11:45)
--- NOTE | 2019-03-21 11:46 | PN ---
Progress Note, Physician Chief Complaint: Pt trached, on ventilator. 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 Spouse is at bedside and history was obtained from him and prior medical record. U/A reveals leukocyte esterase and elevated WBC with bacteria suggestive of UTI. CXR revealed small pleural effusion and patient was found to be hypotensive intially and with lactic acid. - Current Medication List Current Medications: Active Medications Albuterol Sulfate (Ventolin 0.083% Nebulizer Soln -) 1 amp NEB Q4H PRN PRN Reason: SHORT OF BREATH/WHEEZING Last Admin: 03/20/19 22:00 Dose: 1 amp Apixaban (Eliquis -) 5 mg PEG BID [facility] Last Admin: 03/21/19 09:57 Dose: 5 mg Atorvastatin Calcium (Lipitor -) 80 mg PO HS [facility] Last Admin: 03/20/19 22:34 Dose: 80 mg Famotidine (Pepcid) 20 mg PEG BID [facility] Last Admin: 03/21/19 09:57 Dose: 20 mg Ferrous Sulfate (Feosol) 300 mg GT DAILY [facility] Last Admin: 03/21/19 09:57 Dose: 300 mg Fluoxetine HCl (Prozac Oral Solution -) 20 mg PO DAILY [facility] Last Admin: 03/21/19 09:58 Dose: 20 mg Furosemide (Lasix Oral Solution -) 40 mg GT DAILY [facility] Last Admin: 03/21/19 09:57 Dose: 40 mg Insulin Aspart (Novolog Vial Sliding Scale -) 1 vial SQ Q6HPO [facility]; Protocol Last Admin: 03/21/19 07:01 Dose: 2 units Insulin Detemir (Levemir Vial) 10 units SQ AM [facility] Last Admin: 03/21/19 06:59 Dose: 10 units Lisinopril (Prinivil) 2.5 mg PO ONCE ONE Stop: 03/21/19 11:46 Metoprolol Tartrate (Lopressor -) 75 mg PO TID [facility] Last Admin: 03/21/19 06:59 Dose: 75 mg Nystatin (Nystop Powder -) 1 applic TP TID [facility] Last Admin: 03/21/19 07:01 Dose: 1 applic - Objective Vital Signs: Vital Signs Temperature 97.9 F 03/21/19 09:00 Pulse Rate 88 03/21/19 09:00 Respiratory Rate 18 03/21/19 09:00 Blood Pressure 127/65 03/21/19 09:00 O2 Sat by Pulse Oximetry (%) 100 03/21/19 10:00 Constitutional: Yes: Thin Eyes: Yes: WNL HENT: Yes: Other Neck: Yes: Decreased ROM, Other (trach) Cardiovascular: Yes: S1 (varies in intensity), S2 Respiratory: Yes: Diminished Gastrointestinal: Yes: Soft ...Rectal Exam: Yes: Other Genitourinary: No: Anuria Musculoskeletal: Yes: Muscle Weakness Extremities: Yes: Cool Edema: No Peripheral Pulses WNL: Yes Neurological: Yes: Weakness Psychiatric: Yes: Other Labs: CBC, BMP 03/20/19 06:15 03/17/19 07:00 INR, PTT INR 1.61 (0.83-1.09) H 03/10/19 00:05 - ....Imaging Chest X-ray: Image Reviewed EKG: Image Reviewed Problem List - Problems (1) Atrial fibrillation with RVR Assessment/Plan: on metoprolol for HR On apixaban for anticoagulation. Code(s): I48.91 - UNSPECIFIED ATRIAL FIBRILLATION (2) Bacteremia Code(s): R78.81 - BACTEREMIA (3) CVA (cerebral vascular accident) Code(s): I63.9 - CEREBRAL INFARCTION, UNSPECIFIED Qualifiers: CVA mechanism: embolism (4) Colon adenomas Code(s): D12.6 - BENIGN NEOPLASM OF COLON, UNSPECIFIED (5) Diabetes mellitus Code(s): E11.9 - TYPE 2 DIABETES MELLITUS WITHOUT COMPLICATIONS Qualifiers: Diabetes mellitus type: type 2 (6) Pleural effusion Code(s): J90 - PLEURAL EFFUSION, NOT ELSEWHERE CLASSIFIED (7) Pneumonia Code(s): J18.9 - PNEUMONIA, UNSPECIFIED ORGANISM Qualifiers: Pneumonia type: due to unspecified organism Laterality: right Lung location: middle lobe of lung Qualified Code(s): J18.9 - Pneumonia, unspecified organism (8) S/P mitral valve repair Code(s): Z98.890 - OTHER SPECIFIED POSTPROCEDURAL STATES (9) Sacral decubitus ulcer Code(s): L89.159 - PRESSURE ULCER OF SACRAL REGION, UNSPECIFIED STAGE (10) Severe pulmonary arterial systolic hypertension Code(s): I27.21 - SECONDARY PULMONARY ARTERIAL HYPERTENSION (11) Tracheostomy care Code(s): Z43.0 - ENCOUNTER FOR ATTENTION TO TRACHEOSTOMY (12) Ventilator dependent Code(s): Z99.11 - DEPENDENCE ON RESPIRATOR [VENTILATOR] STATUS (13) Weakness Code(s): R53.1 - WEAKNESS (14) HTN (hypertension) Code(s): I10 - ESSENTIAL (PRIMARY) HYPERTENSION Qualifiers: Hypertension type: essential hypertension Qualified Code(s): I10 - Essential (primary) hypertension (15) Hyperlipidemia Code(s): E78.5 - HYPERLIPIDEMIA, UNSPECIFIED Qualifiers: Hyperlipidemia type: pure hypercholesterolemia Qualified Code(s): E78.00 - Pure hypercholesterolemia, unspecified; E78.0 - Pure hypercholesterolemia (16) Pacemaker Code(s): Z95.0 - PRESENCE OF CARDIAC PACEMAKER (17) Diastolic CHF Assessment/Plan: Add lisinopril (HTN; DM). May be able to reduce dose of furosemide (rising BUN). Code(s): I50.30 - UNSPECIFIED DIASTOLIC (CONGESTIVE) HEART FAILURE
[2019-03-21] MEDS ORDERED: FUROSEMIDE 40 MG/5 ML UNIT-DOSE CUP GT SCH (11:54)
--- NOTE | 2019-03-21 13:36 | PN ---
Progress Note, Physician Chief Complaint: Sepsis UTI Stage 4 decubitus ulcer Bacteremia History of Present Illness: NAD mech vent Afebrile leuks improved Awaiting discharge - Current Medication List Current Medications: Active Medications Albuterol Sulfate (Ventolin 0.083% Nebulizer Soln -) 1 amp NEB Q4H PRN PRN Reason: SHORT OF BREATH/WHEEZING Last Admin: 03/20/19 22:00 Dose: 1 amp Apixaban (Eliquis -) 5 mg PEG BID [facility] Last Admin: 03/21/19 09:57 Dose: 5 mg Atorvastatin Calcium (Lipitor -) 80 mg PO HS [facility] Last Admin: 03/20/19 22:34 Dose: 80 mg Famotidine (Pepcid) 20 mg PEG BID [facility] Last Admin: 03/21/19 09:57 Dose: 20 mg Ferrous Sulfate (Feosol) 300 mg GT DAILY [facility] Last Admin: 03/21/19 09:57 Dose: 300 mg Fluoxetine HCl (Prozac Oral Solution -) 20 mg PO DAILY [facility] Last Admin: 03/21/19 09:58 Dose: 20 mg Furosemide (Lasix Oral Solution -) 20 mg GT DAILY [facility] Insulin Aspart (Novolog Vial Sliding Scale -) 1 vial SQ Q6HPO [facility]; Protocol Last Admin: 03/21/19 11:54 Dose: 4 units Insulin Detemir (Levemir Vial) 10 units SQ AM [facility] Last Admin: 03/21/19 06:59 Dose: 10 units Lisinopril (Prinivil) 2.5 mg PO DAILY [facility] Metoprolol Tartrate (Lopressor -) 75 mg PO TID [facility] Last Admin: 03/21/19 06:59 Dose: 75 mg Nystatin (Nystop Powder -) 1 applic TP TID [facility] Last Admin: 03/21/19 07:01 Dose: 1 applic - Objective Vital Signs: Vital Signs Temperature 97.9 F 03/21/19 09:00 Pulse Rate 92 H 03/21/19 12:05 Respiratory Rate 17 03/21/19 12:05 Blood Pressure 127/65 03/21/19 09:00 O2 Sat by Pulse Oximetry (%) 100 03/21/19 12:05 Constitutional: Yes: Well Nourished, No Distress, Calm Cardiovascular: Yes: Regular Rate and Rhythm Respiratory: Yes: Regular Gastrointestinal: Yes: WNL Genitourinary: Yes: [place] Present Musculoskeletal: Yes: WNL Extremities: Yes: WNL Edema: No Peripheral Pulses WNL: Yes Neurological: Yes: Pre-Existing Deficit Labs: CBC, BMP 03/20/19 06:15 03/17/19 07:00 INR, PTT INR 1.61 (0.83-1.09) H 03/10/19 00:05 Assessment/Plan (1) Atrial fibrillation with RVR Assessment/Plan: -Cardiology on board -Eliquis -Metoprolol for rate control Code(s): I48.91 - UNSPECIFIED ATRIAL FIBRILLATION (2) Bacteremia Assessment/Plan: -ID on board -afebrile -Repeat BC negative Microbiology 03/12/19 05:20 Blood Culture - Final Blood - Peripheral Venous NO GROWTH AFTER 5 DAYS INCUBATION 03/12/19 05:27 Blood Culture - Final Blood - Peripheral Venous NO GROWTH AFTER 5 DAYS INCUBATION 03/09/19 22:19 Blood Culture - Final Blood - Peripheral Venous Gemella Species -Ceftazidime day 7 completed Code(s): R78.81 - BACTEREMIA (3) CHF (congestive heart failure) Assessment/Plan: -CXR shows left pulmonary pleural changes, right base changes have diminished -CXR 03/10/19 shows bibasilar pleural effusion -1L fluid restriction Code(s): I50.9 - HEART FAILURE, UNSPECIFIED (4) Hypernatremia Assessment/Plan: -resolved Code(s): E87.0 - HYPEROSMOLALITY AND HYPERNATREMIA (5) Acute and chronic respiratory failure Assessment/Plan: -Pulm on board -Bronchodilators -mechanically ventilated -CXR shows left pulmonary pleural changes, right base changes have diminished -keep SpO2 >90% Code(s): J96.20 - ACUTE AND CHR RESP FAILURE, UNSP W HYPOXIA OR HYPERCAPNIA (6) CAD (coronary artery disease) Assessment/Plan: -Atorvastatin Code(s): I25.10 - ATHSCL HEART DISEASE OF [place] CORONARY ARTERY W/O ANG PCTRS Qualifiers: Coronary Disease-Associated Artery/Lesion type: [place] artery [place] vs. transplanted heart: [place] heart Associated angina: without angina Qualified Code(s): I25.10 - Atherosclerotic heart disease of [place] coronary artery without angina pectoris (7) Diabetes mellitus Assessment/Plan: -A1c at 7.4 -BGM ACHS -Levemir BID -ISS -TF: Glucerna Code(s): E11.9 - TYPE 2 DIABETES MELLITUS WITHOUT COMPLICATIONS Qualifiers: Diabetes mellitus type: type 2 (8) Sepsis Assessment/Plan: -ID on board -afebrile -Ceftazidime day 6 Code(s): A41.9 - SEPSIS, UNSPECIFIED ORGANISM Qualifiers: Sepsis type: sepsis due to unspecified organism Sepsis acute organ dysfunction status: without acute organ dysfunction Qualified Code(s): A41.9 - Sepsis, unspecified organism (9) Stage 4 skin ulcer of sacral region Assessment/Plan: -Vascular consult -turn q2h -offloading -Rectal tube and FC to avoid contamination of wound -Seen by Vascular surgery -Wound vac Code(s): L98.429 - NON-PRESSURE CHRONIC ULCER OF BACK WITH UNSPECIFIED SEVERITY (10) UTI (urinary tract infection) Assessment/Plan: -ID on board -afebrile -UA shows 3+ leuks, 1+ blood, 2+ protein -UC positive for Klebsiella -Ceftazidime Code(s): N39.0 - URINARY TRACT INFECTION, SITE NOT SPECIFIED Qualifiers: Urinary tract infection type: catheter-associated UTI Indwelling urinary catheter type: unspecified Encounter type: initial encounter Qualified Code( s): T83.511A - Infection and inflammatory reaction due to indwelling urethral catheter, initial encounter; N39.0 - Urinary tract infection, site not specified (11) Ventilator dependent Assessment/Plan: -Mechanically ventilated -Pulm on board Code(s): Z99.11 - DEPENDENCE ON RESPIRATOR [VENTILATOR] STATUS D/C TLC
--- NOTE | 2019-03-21 14:44 | PN ---
Progress Note (short form) - Note Progress Note: PULMONARY Vented, awake. No fevers recorded. Heart rates controlled. Vital Signs Period Temp Pulse Resp BP Sys/[place] Pulse Ox Last 24 Hr 97.9 F-98.6 F 77-97 16-20 127-139/65-88 96-100 Gen: vented, arousable Heart: irregular Lung: scattered rhonchi Abd: soft, nontender Ext: + edema CBC, BMP 03/20/19 06:15 03/17/19 07:00 Active Medications Albuterol Sulfate (Ventolin 0.083% Nebulizer Soln -) 1 amp NEB Q4H PRN PRN Reason: SHORT OF BREATH/WHEEZING Last Admin: 03/20/19 22:00 Dose: 1 amp Apixaban (Eliquis -) 5 mg PEG BID [facility] Last Admin: 03/21/19 09:57 Dose: 5 mg Atorvastatin Calcium (Lipitor -) 80 mg PO HS [facility] Last Admin: 03/20/19 22:34 Dose: 80 mg Famotidine (Pepcid) 20 mg PEG BID [facility] Last Admin: 03/21/19 09:57 Dose: 20 mg Ferrous Sulfate (Feosol) 300 mg GT DAILY [facility] Last Admin: 03/21/19 09:57 Dose: 300 mg Fluoxetine HCl (Prozac Oral Solution -) 20 mg PO DAILY [facility] Last Admin: 03/21/19 09:58 Dose: 20 mg Furosemide (Lasix Oral Solution -) 20 mg GT DAILY [facility] Insulin Aspart (Novolog Vial Sliding Scale -) 1 vial SQ Q6HPO [facility]; Protocol Last Admin: 03/21/19 11:54 Dose: 4 units Insulin Detemir (Levemir Vial) 10 units SQ AM [facility] Last Admin: 03/21/19 06:59 Dose: 10 units Lisinopril (Prinivil) 2.5 mg PO DAILY [facility] Metoprolol Tartrate (Lopressor -) 75 mg PO TID [facility] Last Admin: 03/21/19 06:59 Dose: 75 mg Nystatin (Nystop Powder -) 1 applic TP TID [facility] Last Admin: 03/21/19 14:32 Dose: 1 applic A/P Acute on Chronic Hypoxic Respiratory Failure UTI Gram Positive Bacteremia Decubitus Ulcers Septic Shock Atrial Fibrillation with RVR s/p PPM COPD HTN DM h/o GI Bleed h/o CVA Anemia - continue antibiotics - strict isolation - rate control - continue anticoagulation - lasix as needed - O2 to keep SpO2 >90% - continue assist control - enteral feeds - DVT/GI prophylaxis
[2019-03-21 15:31] VITALS: BP 138/67; PULSE 90; TEMP 98.2
[2019-03-22] MEDS ORDERED: LISINOPRIL 5 MG TABLET (FP) PO SCH (10:00)
== END 2019-03-21 15:39 | DRG 870 ==
LOC: JER 21:27 → SUPCPDRO 21:27 → JERBED 23:43 → JICU 03-10 04:50 → J5S 03-12 20:11
PROVIDERS: ADMIT Internal Medicine; ATTEND Family Medicine
PROC: 5A1955Z Respiratory Ventilation, Greater than 96 Consecutive Hours (ICD-10-PCS; principal; 2019-03-09)
PROC: 3E0G76Z Introduction of Nutritional Substance into Upper GI, Via Natural or Artificial Opening (ICD-10-PCS; 2019-03-09)
DX: A41.9 Sepsis, unspecified organism (principal); L89.154 Pressure ulcer of sacral region, stage 4; J96.20 Acute and chronic respiratory failure, unspecified whether with hypoxia or hypercapnia; R65.21 Severe sepsis with septic shock; G93.41 Metabolic encephalopathy; I50.33 Acute on chronic diastolic (congestive) heart failure; J18.9 Pneumonia, unspecified organism; I69.351 Hemiplegia and hemiparesis following cerebral infarction affecting right dominant side; N39.0 Urinary tract infection, site not specified; Z99.11 Dependence on respirator [ventilator] status; J90 Pleural effusion, not elsewhere classified; E87.0 Hyperosmolality and hypernatremia; J98.11 Atelectasis; I13.0 Hypertensive heart and chronic kidney disease with heart failure and stage 1 through stage 4 chronic kidney disease, or unspecified chronic kidney disease; E87.2 Acidosis; E87.3 Alkalosis; I25.10 Atherosclerotic heart disease of native coronary artery without angina pectoris; I48.91 Unspecified atrial fibrillation; Z79.01 Long term (current) use of anticoagulants; Z95.0 Presence of cardiac pacemaker; J44.9 Chronic obstructive pulmonary disease, unspecified; I69.322 Dysarthria following cerebral infarction; Z95.1 Presence of aortocoronary bypass graft; Z79.4 Long term (current) use of insulin; I69.320 Aphasia following cerebral infarction; E11.22 Type 2 diabetes mellitus with diabetic chronic kidney disease; Z95.2 Presence of prosthetic heart valve; E11.65 Type 2 diabetes mellitus with hyperglycemia; Z93.0 Tracheostomy status; Z93.1 Gastrostomy status; D64.9 Anemia, unspecified; E88.09 Other disorders of plasma-protein metabolism, not elsewhere classified; N18.2 Chronic kidney disease, stage 2 (mild); E78.00 Pure hypercholesterolemia, unspecified
CPT/HCPCS: 36415; 36430; 36511; 36600; 71045-TC-FY; 80053; 81003; 82375; 82436; 82565; 82803; 82962; 83050; 83605; 83735; 84100; 84133; 84300; 84443; 84484; 85025; 85027; 85610; 86850; 86900; 86901; 86922; 87040; 87070; 87086; 87186; 87205; 93005; 93010; 93971-TC; 94002; 94640; 99283-25; G0480; J0131; J7030; P9038; P9047; P9058

== ENCOUNTER 2019-03-29 17:07 | Inpatient (IN) | payer OTHER ==
--- NOTE | 2019-03-29 17:48 | PDOC ---
Documentation entered by Vera Ward SCRIBE, acting as scribe for Alicja Saldivar MD. Alicja Saldivar MD: This documentation has been prepared by the rickeyibe, Vera Ward SCRIBE, under my direction and personally reviewed by me in its entirety. I confirm that the documentation accurately reflects all work, treatment, procedures, and medical decision making performed by me. Attending Attestation - Resident Resident Name: BrandanreannaLinsey - ED Attending Attestation I have performed the following: I have examined & evaluated the patient, The case was reviewed & discussed with the resident, I agree w/resident's findings & plan, Exceptions are as noted - HPI HPI: 03/29/19 17:53 Nonverbal 79-year-old female brought in tachycardic, febrile and hypertensive Head normocephalic atraumatic Neck tracheostomy in place Lungs CVS tachycardia Abdomen soft Skin anasarca to her extremities Neuro nonverbal - Physicial Exam PE: 03/29/19 18:36 03/29/19 18:42 03/29/19 17:53 Nonverbal 79-year-old female brought in tachycardic, febrile and hypertensive Head normocephalic atraumatic Neck tracheostomy in place Lungs CTA B/L CVS tachycardia Abdomen soft Skin anasarca to her extremities Neuro nonverbal 03/29/19 18:42 03/29/19 18:43 - Medical Decision Making 03/29/19 17:38 Respiratory reports vent settings are AC tidal IMV 50, rate equal to 12, FiO2 equal to 40%, PEEP is equal to 5 03/29/19 17:47 79-year-old female brought in by ambulance from a [facility] for fever Upon arrival she is tachycardic with a heart rate of 153, rectal temp of 101.7 and blood pressure 153/130 -Pt has a stage 4 decubitus ulcer with wound vac Patient has a trach and respiratory his placer and event Past medical history CVA x2, hypertension, A. fib on Eliquis, permanent pacemaker, sick sinus syndrome, and STEMI Fingerstick was 409 in the field HPI patient was already admitted this year from March 09 to March 21 for urosepsis 03/29/19 17:55 Differential diagnosis sepsis, pneumonia, urosepsis, ACS, CVA Plan sepsis work-up including blood and urine cultures, CBC comp, EKG, chest x- ray, troponin, lactic acid, IV fluids, antibiotics 03/29/19 18:53 Patient has a mild leukocytosis 11,900, chronic anemia hemoglobin around 9 Urinalysis is positive for leukocytes and WBCs will treat for urosepsis and admit 03/29/19 19:05 EKG a flutter with variable AV block at rate 150 bpm Patient to receive offimiv for her fever that will hopefully reduce her heart rate She is hyperglycemic but she has not received off of IV fluids yet after IV fluids are gone and repeat BGM will be done 03/29/19 19:56 03/29/19 21:08 ADMIT
[2019-03-29] MEDS ORDERED: VANCOMYCIN 1 GM in D5W (PRE-DOCKED) 1,000 MG/250 ML IVPB ONE (18:08)
--- NOTE | 2019-03-29 18:10 | PDOC ---
History of Present Illness - General Chief Complaint: SIRS, Suspected/Possible Stated Complaint: RESPIRATORY DISTRESS Time Seen by Provider: 03/29/19 17:19 - History of Present Illness Initial Comments: 03/29/19 18:34 Pt is a 79y/o female from [facility] with recent sepsis (d/c 03/21/19), stage 4 sacral ulcer, CAD, a-fib (on Eliquis), sick sinus syndrome s/p PPM, CVA (right side residual deficits, non-verbal), chronic respiratory failure s/p trach on ventilator, COPD, HTN, DM who presents with lethargy and fever. Pt's family reports she was at baseline yesterday but when they came to visit today, she was less responsive. She had a temperature of 101.1 at [facility] and was brought in by EMS. She was recently discharged after positive wound and urine cultures and treated with ceftriaxone and vancomycin. Past History - Past Medical History Allergies/Adverse Reactions: Allergies Allergy/AdvReac Type Severity Reaction Status Date / Time No Known Allergies Allergy Verified 03/29/19 18:17 Home Medications: Ambulatory Orders Atorvastatin Ca [Lipitor] 80 mg PO HS tablet 07/26/17 Fluoxetine HCl Liquid [Prozac 20mg/5mL Oral Solution -] 20 mg PO DAILY 04/28/18 Metoprolol Tartrate [Lopressor -] 75 mg GT TID 04/28/18 Albuterol 0.083% Nebulizer Sandrita [Ventolin 0.083% Nebulizer Soln -] 1 amp NEB Q4H PRN amp 02/23/19 Nystatin Powder [Nystop Powder -] 1 applic TP TID applic 02/23/19 Ferrous Sulfate [Feosol] 300 mg GT BID [facility] 03/03/19 Apixaban [Eliquis -] 5 mg PEG BID tablet 03/20/19 Ferrous Sulfate [Feosol] 300 mg GT DAILY [facility] [place]/20/19 Insulin (Levemir) [Levemir Vial] 10 units SQ AM units 03/20/19 Insulin Sliding Scale [Novolog Vial Sliding Scale -] 1 vial SQ Q6HPO units Furosemide Oral Solution [Lasix Oral Solution -] 20 mg GT DAILY [facility] 03/21/19 Acetaminophen [Tylenol .Regular Strength -] 650 mg GT Q6H PRN 03/29/19 Ascorbic Acid [Vitamin C] 500 mg GT DAILY 03/29/19 Lisinopril [Prinivil] 2.5 mg GT DAILY 03/29/19 Omeprazole Magnesium [Prilosec] 10 mg PO DAILY 03/29/19 Pantoprazole Suspension [Protonix Packets For Oral Suspension -] 160 mg PEG DAILY 03/29/19 Zinc Sulfate 220 mg GT DAILY 03/29/19 Anemia: Yes Asthma: No Cancer: No Cardiac Disorders: Yes (afib on coumadin, CABG, PPM) CVA: Yes (july 2017 right sided weakness, dysarthria) COPD: Yes (uses nc o2 @ night 1 lpm) CHF: Yes Dementia: No Diabetes: Yes GI Disorders: Yes (GI BLEED) Disorders: No HTN: Yes Hypercholesterolemia: Yes Liver Disease: No Seizures: No Thyroid Disease: No - Surgical History Abdominal Surgery: No Appendectomy: No Cardiac Surgery: Yes (pacemaker, CABG) Cholecystectomy: No Lung Surgery: No Neurologic Surgery: No Orthopedic Surgery: (BONE TUMOR REMOVAL 5YRS OLD) - Immunization History Immunization Up to Date: Yes - Psycho Social/Smoking Cessation Hx Smoking History: Unknown if ever smoked Have you smoked in the past 12 months: No If you are a former smoker, when did you quit?: 2007 Hx Alcohol Use: No Drug/Substance Use Hx: No Substance Use Type: None Hx Substance Use Treatment: No Review of Systems - Review of Systems Able to Perform ROS?: No (non-verbal) *Physical Exam - Vital Signs Last Vital Signs Temp Pulse Resp BP Pulse Ox 142 H 26 H 100 03/29/19 17:28 03/29/19 17:28 03/29/19 17:28 - Physical Exam General Appearance: Yes: Mild Distress HEENT: positive: [place], Other (dry mucous membranes) Neck: positive: Trachea midline, Other (tracheostomy with ventilator) Respiratory/Chest: positive: Normal Breath Sounds. negative: Crackles, Rhonchi , Wheezing Cardiovascular: positive: Regular Rhythm, Tachycardia. negative: Murmur Gastrointestinal/Abdominal: positive: Normal Bowel Sounds, Protuberent Extremity: positive: Other (warm upper extremities with edema b/l; cool lower extremities, right foot +1 pedal edema with no movement, +1 pulse left foot with some movement of foot and toes) Neurologic: positive: Other (awake, lethargic) ED Treatment Course - LABORATORY CBC & Chemistry Diagram: 03/30/19 06:05 03/30/19 06:05 - ADDITIONAL ORDERS Additional order review: Laboratory Results 03/29/19 17:46 POC Glucometer 320 03/29/19 17:46 POC Glucometer 320 - RADIOLOGY Radiology Studies Ordered: Category Date Time Status CHEST X-RAY PORTABLE* [RAD] Stat Radiology 03/29/19 17:36 Taken Medical Decision Making - Medical Decision Making 03/29/19 18:50 Pt is a 79y/o female from [facility] with recent sepsis (d/c 03/21/19), stage 4 sacral ulcer, CAD, a-fib (on Eliquis), sick sinus syndrome s/p PPM, CVA (right side residual deficits, non-verbal), chronic respiratory failure s/p trach on ventilator, COPD, HTN, DM who presents with lethargy and fever. At presentation , pt was 152/130, HR 153, 101.7. Will workup for sepsis. ESBL positive on previous admission sensitive to vancomycin.. ddx: UTI, sacral ulcer, bacteremia, sepsis orders: sepsis labs, wound cx, CXR, EKG, IV NS, vancomycin 1g, Ofirmev 1g 03/29/19 19:17 CBC, BMP 03/29/19 18:20 03/29/19 18:20 CMP Lactic Acid 3.2 mmol/L (0.4-2.0) H* 03/29/19 18:20 Calcium 8.6 mg/dL (8.5-10.1) 03/29/19 18:20 Total Bilirubin 0.3 mg/dL (0.2-1) 03/29/19 18:20 AST 151 U/L (15-37) H 03/29/19 18:20 ALT 123 U/L (13-61) H 03/29/19 18:20 Alkaline Phosphatase 543 U/L (45-117) H 03/29/19 18:20 Troponin I 0.05 ng/ml (0.00-0.05) 03/29/19 18:20 Total Protein 6.5 g/dl (6.4-8.2) 03/29/19 18:20 Albumin 1.6 g/dl (3.4-5.0) L 03/29/19 18:20 CXR- no significant change from 03/11/19. Small right side pleural effusion, possible atelectasis. EKG- atrial flutter HR 150, QTc 508 continue aggressive fluid resuscitation 03/29/19 22:36 [facility] Will be transferred to ICU bed 5. BP systolic 80-90s, HR 140-160s. Discharge - Discharge Information Problems reviewed: Yes Clinical Impression/Diagnosis: Septic shock Sepsis Qualifiers: Sepsis type: sepsis due to unspecified organism Sepsis acute organ dysfunction status: without acute organ dysfunction Qualified Code(s): A41.9 - Sepsis, unspecified organism - Admission Yes - Follow up/Referral - Patient Discharge Instructions - Post Discharge Activity
[2019-03-29] MEDS ORDERED: SODIUM CHLORIDE IV ONE (18:28)
[2019-03-29 18:39] LABS: BASO % 1.2 % (0-2.0); EOS % 0.1 % (0-4.5); HEMATOCRIT 32.8 % (32.4-45.2); HEMOGLOBIN 9.7 GM/dL (10.7-15.3); LYMPH % 17.5 % (8-40); MCH 25.3 pg (25.7-33.7); MCHC 29.5 g/dl (32.0-36.0); MEAN CELL VOLUME 85.6 fl (80-96); MEAN PLT VOLUME 10.4 fl (7.5-11.1); NEUT % 72.2 % (42.8-82.8); PLATELET COUNT 257 K/MM3 (134-434); RBC 3.84 M/mm3 (3.60-5.2); RDW 20.3 % (11.6-15.6); WHITE BLOOD COUNT 11.9 K/mm3 (4.0-10.0)
[2019-03-29] MEDS ORDERED: VANCOMYCIN 1 GRAM (PRE-DOCKED) 1,000 MG/250 ML BAG IVPB ONE (18:40)
[2019-03-29 18:41] LABS: VENOUS PC02 46.7 mmHg (38-52)
[2019-03-29 18:43] LABS: VENOUS PO2 < 49 mmHg (28-48)
[2019-03-29 18:44] LABS: PH,URINE 6.5 (5.0-8.0); URINE APPEARANCE Clear; URINE BILIRUBIN Negative (NEGATIVE); URINE COLOR Yellow; URINE GLUCOSE (UA) 3+ (NEGATIVE); URINE KETONE Negative (NEGATIVE); URINE LEUK ESTERASE 1+ (NEGATIVE); URINE NITRITE Negative (NEGATIVE); URINE PROTEIN 2+ (NEGATIVE); URINE UROBILINOGEN 0.2 mg/dL (0.2-1.0)
[2019-03-29 18:48] LABS: EPI CELLS 0.7 /HPF (0-5/HPF); HYALINE CASTS 2.23 /lpf (0-8); URINE BACTERIA 6.7 /hpf (NEGATIVE); URINE RBC 76.6 /hpf (0-4); URINE WBC 206.4 /hpf (0-5)
[2019-03-29 18:51] LABS: INR 1.4 (0.83-1.09); PROTHROMBIN TIME (PATIENT) 16.6 SEC (9.7-13.0)
[2019-03-29 18:53] LABS: ACTIVATED PTT 37.4 SECONDS (25.2-36.5)
[2019-03-29] MEDS ORDERED: ACETAMINOPHEN 1000 MG/100 ML VIAL (NON FORMULARY) IVPB ONE (19:01)
[2019-03-29 19:14] LABS: ALBUMIN 1.6 g/dl (3.4-5.0); BILIRUBIN,TOTAL 0.3 mg/dL (0.2-1); BLOOD UREA NITROGEN 61.5 mg/dL (7-18); CALCIUM 8.6 mg/dL (8.5-10.1); CREATININE 1.2 mg/dL (0.55-1.3); TOT PROT 6.5 g/dl (6.4-8.2)
[2019-03-29] MEDS ORDERED: MEROPENEM 1 GM in DEXTROSE 5%-WATER 100 ML IVPB ONE (20:43)
[2019-03-29] MEDS ORDERED: MEROPENEM 1 GM VIAL (RESTRICTED TO ID) IVPB ONE (20:58)
[2019-03-29] MEDS ORDERED: SODIUM CHLORIDE 0.9% 1000 ML INFUS.BAG IV SCH (21:00)
[2019-03-29] MEDS ORDERED: MAGNESIUM SULF 50% (8.12 MEQ/2 ML-1 GM VIAL) IVPB ONE (21:07)
[2019-03-29] MEDS ORDERED: MAGNESIUM 1GM/D5W - 2 GM/200 ML IVPB IVPB ONE (21:11)
[2019-03-29] MEDS ORDERED: SODIUM CHLORIDE 1,000 ML IV SCH (21:30)
[2019-03-29] MEDS ORDERED: APIXABAN 5 MG TABLET ONE (22:29)
--- NOTE | 2019-03-29 22:32 | HP ---
79 F from [facility] h/o CAD, Afib (on Eliquis), Sick Sinus Syndrome s/p PPM, CVA (RUE/LE residual, non-verbal), Chronic Respiratory Failure s/p trach-vent dependent, COPD, HTN, T2DM, remote h/o GIB, chronic Stage 4 sacral Wound who presents to the ED with fever 101.7F (rectal) and Afib w/ RVR. Patient has a history of CVA is non-verbal and is trach-vent dependent. As per patient's family, they noticed she has not been at her baseline, appeared more fatigued and tired. Patiently recently DCed from [facility] for urosepsis on 03/21/2019. Patient at bedside appears tired, non-verbal, trach attached to vent, in Afib w / RVR, BP MAPs in 60s-70s. Appears weak and cachectic. PE GA tired appearing, cachectic, anasarca+, tach/vent+, non-verbal, non- communicative HEENT NC/AT, trach site clean, no stridor, no gurgling Chest good air entry b/l anteriorally, mild rhonchi RLL CVS Irregularly irregular, rapid ventricular rate Abd grossly soft, BS+, no guarding, no facial grimace when palpating Ext diffuse anasarca, 1+ LE edema b/l Vital Signs - 24 hr 03/29/19 03/29/19 03/29/19 17:28 17:49 19:30 Temperature 101.7 F H Pulse Rate 142 H 150 H Pulse Rate [ 144 H Right Apical] Respiratory 26 H 29 H 23 H Rate Blood Pressure 152/130 H Blood Pressure 162/131 H [Left Arm] O2 Sat by Pulse 100 100 100 Oximetry (%) 03/29/19 20:41 Temperature Pulse Rate Pulse Rate [ Right Apical] Respiratory 22 H Rate Blood Pressure Blood Pressure [Left Arm] O2 Sat by Pulse Oximetry (%) Laboratory Results - last 24 hr 03/29/19 03/29/19 03/29/19 17:46 18:20 18:20 WBC 11.9 H RBC 3.84 Hgb 9.7 L Hct 32.8 D MCV 85.6 MCH 25.3 L MCHC 29.5 L RDW 20.3 H Plt Count 257 D MPV 10.4 D Absolute Neuts (auto) 8.6 H Neutrophils % 72.2 Lymphocytes % 17.5 D Monocytes % 9.0 Eosinophils % 0.1 D Basophils % 1.2 Nucleated RBC % 0 PT with INR INR PTT (Actin FS) VBG pH POC VBG pCO2 POC VBG pO2 VBG HCO3 VBG O2 Sat (Dylan) VBG Base Excess Sodium 155 H Potassium 4.0 Chloride 120 H Carbon Dioxide 29 Anion Gap 6 L BUN 61.5 H Creatinine 1.2 Est GFR (CKD-EPI)AfAm 50.48 Est GFR (CKD-EPI)NonAf 43.56 POC Glucometer 320 Random Glucose 369 H Lactic Acid Calcium 8.6 Total Bilirubin 0.3 AST 151 H ALT 123 H Alkaline Phosphatase 543 H Troponin I Total Protein 6.5 Albumin 1.6 L Urine Color Urine Appearance Urine pH Ur Specific [place] Urine Protein Urine Glucose (UA) Urine Ketones Urine Blood Urine Nitrite Urine Bilirubin Urine Urobilinogen Ur Leukocyte Esterase Urine WBC (Auto) Urine RBC (Auto) Urine Casts (Auto) U Epithel Cells (Auto) Urine Bacteria (Auto) Urine Yeast (Auto) Acetaminophen Influenza A (Rapid) Influenza B (Rapid) 03/29/19 03/29/19 03/29/19 18:20 18:20 18:20 WBC RBC Hgb Hct MCV MCH MCHC RDW Plt Count MPV Absolute Neuts (auto) Neutrophils % Lymphocytes % Monocytes % Eosinophils % Basophils % Nucleated RBC % PT with INR 16.60 H INR 1.40 H PTT (Actin FS) 37.4 H VBG pH POC VBG pCO2 POC VBG pO2 VBG HCO3 VBG O2 Sat (Dylan) VBG Base Excess Sodium Potassium Chloride Carbon Dioxide Anion Gap BUN Creatinine Est GFR (CKD-EPI)AfAm Est GFR (CKD-EPI)NonAf POC Glucometer Random Glucose Lactic Acid 3.2 H* Calcium Total Bilirubin AST ALT Alkaline Phosphatase Troponin I 0.05 Total Protein Albumin Urine Color Urine Appearance Urine pH Ur Specific [place] Urine Protein Urine Glucose (UA) Urine Ketones Urine Blood Urine Nitrite Urine Bilirubin Urine Urobilinogen Ur Leukocyte Esterase Urine WBC (Auto) Urine RBC (Auto) Urine Casts (Auto) U Epithel Cells (Auto) Urine Bacteria (Auto) Urine Yeast (Auto) Acetaminophen Influenza A (Rapid) Influenza B (Rapid) 03/29/19 03/29/19 03/29/19 18:20 18:30 20:05 WBC RBC Hgb Hct MCV MCH MCHC RDW Plt Count MPV Absolute Neuts (auto) Neutrophils % Lymphocytes % Monocytes % Eosinophils % Basophils % Nucleated RBC % PT with INR INR PTT (Actin FS) VBG pH 7.40 POC VBG pCO2 46.7 POC VBG pO2 < 49 H VBG HCO3 28.6 VBG O2 Sat (Dylan) 67.4 L VBG Base Excess 3.7 H Sodium Potassium Chloride Carbon Dioxide Anion Gap BUN Creatinine Est GFR (CKD-EPI)AfAm Est GFR (CKD-EPI)NonAf POC Glucometer Random Glucose Lactic Acid Calcium Total Bilirubin AST ALT Alkaline Phosphatase Troponin I Total Protein Albumin Urine Color Yellow Urine Appearance Clear Urine pH 6.5 Ur Specific [place] 1.015 Urine Protein 2+ H Urine Glucose (UA) 3+ H Urine Ketones Negative Urine Blood 1+ H Urine Nitrite Negative Urine Bilirubin Negative Urine Urobilinogen 0.2 Ur Leukocyte Esterase 1+ H Urine WBC (Auto) 206.4 Urine RBC (Auto) 76.6 Urine Casts (Auto) 2.23 U Epithel Cells (Auto) 0.7 Urine Bacteria (Auto) 6.7 Urine Yeast (Auto) Acetaminophen Influenza A (Rapid) Negative Influenza B (Rapid) Negative 03/29/19 21:04 WBC RBC Hgb Hct MCV MCH MCHC RDW Plt Count MPV Absolute Neuts (auto) Neutrophils % Lymphocytes % Monocytes % Eosinophils % Basophils % Nucleated RBC % PT with INR INR PTT (Actin FS) VBG pH POC VBG pCO2 POC VBG pO2 VBG HCO3 VBG O2 Sat (Dylan) VBG Base Excess Sodium Potassium Chloride Carbon Dioxide Anion Gap BUN Creatinine Est GFR (CKD-EPI)AfAm Est GFR (CKD-EPI)NonAf POC Glucometer Random Glucose Lactic Acid Calcium Total Bilirubin AST ALT Alkaline Phosphatase Troponin I Total Protein Albumin Urine Color Urine Appearance Urine pH Ur Specific [place] Urine Protein Urine Glucose (UA) Urine Ketones Urine Blood Urine Nitrite Urine Bilirubin Urine Urobilinogen Ur Leukocyte Esterase Urine WBC (Auto) Urine RBC (Auto) Urine Casts (Auto) U Epithel Cells (Auto) Urine Bacteria (Auto) Urine Yeast (Auto) Acetaminophen 5.6 Influenza A (Rapid) Influenza B (Rapid) Home Medications Medication Instructions Recorded Atorvastatin Ca [Lipitor] 80 mg PO HS tablet 07/26/17 Fluoxetine HCl Liquid [Prozac 20 mg PO DAILY 04/28/18 20mg/5mL Oral Solution -] Metoprolol Tartrate [Lopressor -] 75 mg GT TID 04/28/18 Albuterol 0.083% Nebulizer Sandrita 1 amp NEB Q4H PRN amp 02/23/19 [Ventolin 0.083% Nebulizer Soln -] Nystatin Powder [Nystop Powder -] 1 applic TP TID applic 02/23/19 Ferrous Sulfate [Feosol] 300 mg GT BID udc 03/03/19 Apixaban [Eliquis -] 5 mg PEG BID tablet 03/20/19 Ferrous Sulfate [Feosol] 300 mg GT DAILY [facility] [place] 03/20/19 Insulin (Levemir) [Levemir Vial] 10 units SQ AM units 03/20/19 Insulin Sliding Scale [Novolog 1 vial SQ Q6HPO units 03/20/19 Vial Sliding Scale -] Furosemide Oral Solution [Lasix 20 mg GT DAILY [facility] [place] 03/21/19 Oral Solution -] Acetaminophen [Tylenol .Regular 650 mg GT Q6H PRN 03/29/19 Strength -] Ascorbic Acid [Vitamin C] 500 mg GT DAILY 03/29/19 Lisinopril [Prinivil] 2.5 mg GT DAILY 03/29/19 Omeprazole Magnesium [Prilosec] 10 mg PO DAILY 03/29/19 Pantoprazole Suspension [Protonix 160 mg PEG DAILY 03/29/19 Packets For Oral Suspension -] Zinc Sulfate 220 mg GT DAILY 03/29/19 Current Medications Generic Name Dose Route Start Last Admin Trade Name Freq PRN Reason Stop Dose Admin Apixaban 5 mg 03/29/19 22:15 Eliquis - PEG BID [facility] Sodium Chloride 1,000 mls @ 75 mls/hr 03/29/19 21:30 03/29/19 21:21 Normal Saline - IV 75 mls/hr ASDIR [facility] Administration A/p: 79 F chronic respiratory failure due to CVA on trach/vent, Afib on AC, CAD, COPD , DM, SSS s/p PPM, chronic decubitus stage 4 ulcer w/ wound vac, presents with septic shock d/t UTI/?PNA/?infected sacral ulcer. Septic shock likely sources, UTI/PNA/infected sacral decubitus ulcer, give 1 dose of Meropenem/Levofloxacin (sensitive on last cultures) Aggressive IV hydration, labs showing hemo-concentration, patient appears malnourished and intravascular volume depleted ICU consult for further care: Dr Stover ID consult Dr. Isac Marshall w/ RVR due to septic shock, avoid BB/CCB as this may further cause decline in BP treat w/ volume resuscitation and antibiotics to treat infectious source Cardiology consult Chronic respiratory failure on trach/vent continue current settings, saturating OK on monitoring, obtain baseline ABG PPI, aggressive oral care, HOB elevation, frequent suctioning T2DM Basal insulin w/ ISS as needed for f/s 140-180 Chronic sacral decubitus ulcer w/ wound vac, ?infected, Vancomycin 1 dose given in ED ID consult: Dr Chau General Surgery consult: Dr. Glover HTN hold off BP meds until BP improves DVT ppx: Eliquis FEN: IVF/chem daily/nutrition consult for feeds Visit type - Emergency Visit Emergency Visit: Yes ED Registration Date: 03/29/19 Care time: The patient presented to the Emergency Department on the above date and was hospitalized for further evaluation of their emergent condition. - New Patient This patient is new to me today: Yes Date on this admission: 03/30/19 - Critical Care Critical Care patient: Yes Total Critical Care Time (in minutes): 40 Critical Care Statement: The care of this patient involved high complexity decision making to prevent further life threatening deterioration of the patient 's condition and/or to evaluate & treat vital organ system(s) failure or risk of failure.
[2019-03-29] MEDS ORDERED: ALBUTEROL SO4 2.5/IPRATROPIUM 0.5 INH SOL 3 ML VIAL.NEB. NEB PRN (22:37)
--- NOTE | 2019-03-29 22:44 | CONSULT ---
Consult - text type - Consultation Consultation Note: PULMONARY/CRITICAL CARE CONSULT: HPI: Briefly, a chronically ill, frail, vent dependant, 79 y/o female, [place] [facility] resident with multiple, chronic, debilitating medical conditions including , but not limited to: CAD, AF, prior CVA, COPD, IDDM, chronic respiratory failure, functional quadriplegia, sacral decub ulcer, who was hospitalized recently for UTI and was d/c to SNF last week, now presents to the ED again with fever and lethargy. In the ED her temp was 101.5, vital signs were initially stable, WBC was 1.9, Lactate 3.2, CXR showed b/l effusions (chronic), no new infilatrate, flu swab was negative, and her UA was postitive and is the likely source, although her sacral wound is always a potential source. She was given 2L of IVF and after several hours her BP decreased to the 90s systolic. She was cultured and started on Vanc, Shira and Levoflox. Given her soft BP she was admitted to the ICU. Current Medications Apixaban (Eliquis -) 5 mg PEG BID [facility] Sodium Chloride (Normal Saline -) 1,000 mls @ 75 mls/hr IV ASDIR [facility] Last Admin: 03/29/19 21:21 Dose: 75 mls/hr Vital Signs Temp 101.7 F H 03/29/19 17:49 Pulse 144 H 03/29/19 19:30 Resp 22 H 03/29/19 20:41 BP 162/131 H 03/29/19 19:30 Pulse Ox 100 03/29/19 19:30 Intake & Output 03/29/19 03/29/19 03/30/19 06:59 18:59 06:59 Weight 64.773 kg Other: Voiding Method Indwelling Catheter Height 5 ft 2 in Body Mass Index (BMI) 26.1 Weight Measurement Method Estimated by Staff EXAM: neuro: awake, does not follow commands (baseline) HEENT: PERRL, anicteric, no JVD lungs: rhonchi, diminished bases heart: tachy, irregular abd: soft, non-tender ext: anasarca skin: warm, dry CBC, BMP 03/29/19 18:20 03/29/19 18:20 ASSESSMENT: Severe Sepsis - likely sources is UTI or sacral wound Lactic acidosis CONOR Hypernatremia IDDM COPD Chronic vent dependant respiratory failure CAD HTN AF Functional quadriplegia PLAN: -More IVF - she had a relatively normal TTE last year -Abx per ID - was given Vanc, Shira and Levoflox -Vasopressors as needed -Free water -Continue mechanical ventilation -Fingersticks and Insulin -Continue Eliquis -Rate control -Continue home medications -GI PPx halfway prognosis is poor Thank you for this interesting consult Ap Lopez Pulm/Critical Care CONTACT AGENT
[2019-03-29] MEDS: APIXABAN 5 MG TABLET PEG SCH (22:46)
[2019-03-29] MEDS ORDERED: dilTIAZem HCL 50 MG/10 ML - 10 ML VIAL IVPUSH ONE ×2 (23:26→23:39)
[2019-03-29] MEDS ORDERED: LACTATED RINGERS SOLUTION 1,000 ML/1,000 ML INFUS.BAG IV SCH (23:45)
[2019-03-29] MEDS: DILTIAZEM INJECTION 125 MG in DEXTROSE 5%-WATER - 100 ML IVPB SCH (23:55)
[2019-03-30] MEDS ORDERED: PHENYLEPHRINE HCL 10,000 MCG in DEXTROSE 5%-WATER - 499 ML IV SCH
[2019-03-30] MEDS ORDERED: LACTATED RINGERS SOLUTION 1,000 ML/1,000 ML INFUS.BAG IV STA (00:05)
[2019-03-30] MEDS: LACTATED RINGERS SOLUTION 1,000 ML/1,000 ML INFUS.BAG IV SCH ×2 (05:00→12:17)
[2019-03-30] MEDS ORDERED: METOPROLOL TARTRATE 50 MG TABLET (FP) PO SCH (06:00)
[2019-03-30] MEDS: METOPROLOL TARTRATE 50 MG, METOPROLOL TARTRATE 25 MG PO SCH ×4 (06:31→22:20)
[2019-03-30] MEDS: INSULIN SLIDING SCALE (NOVOLOG) 1 VIAL SQ SCH ×3 (06:31→17:09)
[2019-03-30 06:55] LABS: BASO % 0.7 % (0-2.0); EOS % 0.7 % (0-4.5); HEMATOCRIT 28.4 % (32.4-45.2); HEMOGLOBIN 8.5 GM/dL (10.7-15.3); LYMPH % 14.7 % (8-40); MCH 25.5 pg (25.7-33.7); MCHC 30.1 g/dl (32.0-36.0); MEAN CELL VOLUME 84.7 fl (80-96); MONO % 6.9 % (3.8-10.2); PLATELET COUNT 184 K/MM3 (134-434); RBC 3.35 M/mm3 (3.60-5.2); RDW 19.9 % (11.6-15.6); WHITE BLOOD COUNT 11.3 K/mm3 (4.0-10.0)
[2019-03-30 07:39] LABS: ALBUMIN 1.4 g/dl (3.4-5.0); BILIRUBIN,DIRECT 0.2 mg/dL (0.0-0.2); BILIRUBIN,TOTAL 0.4 mg/dL (0.2-1); BLOOD UREA NITROGEN 52.7 mg/dL (7-18); CALCIUM 7.6 mg/dL (8.5-10.1); CREATININE 0.9 mg/dL (0.55-1.3); MAGNESIUM 2.6 mg/dL (1.8-2.4); TOT PROT 5.3 g/dl (6.4-8.2)
--- NOTE | 2019-03-30 09:39 | PN ---
Progress Note, Physician - Current Medication List Current Medications: Active Medications Albuterol/Ipratropium (Duoneb -) 1 amp NEB Q4H PRN PRN Reason: WHEEZING Apixaban (Eliquis -) 5 mg PEG BID [facility] Last Admin: 03/29/19 22:46 Dose: 5 mg Ascorbic Acid (Vitamin C -) 500 mg GT DAILY [facility] Ferrous Sulfate (Feosol) 300 mg GT BID [facility] Diltiazem HCl 125 mg/ Dextrose 125 mls @ 5 mls/hr IVPB TITR [facility]; Protocol Last Titration: 03/30/19 05:00 Dose: 7 mg/hr, 7 mls/hr Lactated Ringer's (Lactated Ringers Solution) 1,000 ml in 1,000 mls @ 200 mls/ hr IV ASDIR [facility] Last Admin: 03/30/19 05:00 Dose: 200 mls/hr Insulin Aspart (Novolog Vial Sliding Scale -) 1 vial SQ TIDAC [facility]; Protocol Last Admin: 03/30/19 06:31 Dose: 2 units Insulin Detemir (Levemir Vial) 10 units SQ DAILY [facility] Metoprolol Tartrate 50 mg/ (Metoprolol Tartrate 25 mg) 75 mg PO TID [facility] Last Admin: 03/30/19 06:31 Dose: Not Given Pantoprazole Sodium (Protonix Packets For Oral Suspension -) 40 mg NGT DAILY [facility] Zinc Sulfate (Orazinc -) 220 mg GT DAILY [facility] - Objective Vital Signs: Vital Signs Temperature 98.5 F 03/30/19 06:00 Pulse Rate 122 H 03/30/19 08:00 Respiratory Rate 20 03/30/19 08:00 Blood Pressure 100/70 03/30/19 08:00 O2 Sat by Pulse Oximetry (%) 100 03/30/19 04:06 Cardiovascular: Yes: Tachycardia, Pulse Irregular, S1, S2 Respiratory: Yes: Mechanically Ventilated, Rhonchi Gastrointestinal: Yes: Normal Bowel Sounds, Soft Labs: CBC, BMP 03/30/19 06:05 03/30/19 06:05 INR, PTT INR 1.40 (0.83-1.09) H 03/29/19 18:20 Problem List - Problems (1) Sepsis Assessment/Plan: iv abx per id ivf id consult Code(s): A41.9 - SEPSIS, UNSPECIFIED ORGANISM Qualifiers: Sepsis type: sepsis due to unspecified organism Sepsis acute organ dysfunction status: without acute organ dysfunction Qualified Code(s): A41.9 - Sepsis, unspecified organism (2) Atrial fibrillation with RVR Assessment/Plan: monitor as treating sepsis bb as tolerated cardio hold ac due to dropping hgb Code(s): I48.91 - UNSPECIFIED ATRIAL FIBRILLATION (3) CHF (congestive heart failure) Assessment/Plan: monitor Code(s): I50.9 - HEART FAILURE, UNSPECIFIED (4) CKD (chronic kidney disease) Assessment/Plan: w hypernatremia ivf renal Code(s): N18.9 - CHRONIC KIDNEY DISEASE, UNSPECIFIED Qualifiers: Chronic kidney disease stage: stage 2 (mild) Qualified Code(s): N18.2 - Chronic kidney disease, stage 2 (mild) (5) Diabetes mellitus Assessment/Plan: bgm Code(s): E11.9 - TYPE 2 DIABETES MELLITUS WITHOUT COMPLICATIONS Qualifiers: Diabetes mellitus type: type 2 (6) UTI (urinary tract infection) Code(s): N39.0 - URINARY TRACT INFECTION, SITE NOT SPECIFIED Qualifiers: Urinary tract infection type: catheter-associated UTI Indwelling urinary catheter type: unspecified Encounter type: initial encounter Qualified Code( s): T83.511A - Infection and inflammatory reaction due to indwelling urethral catheter, initial encounter; N39.0 - Urinary tract infection, site not specified
[2019-03-30] MEDS ORDERED: INSULIN (LEVEMIR) 100 UNITS/ML UNITS SQ SCH (10:00)
--- NOTE | 2019-03-30 10:47 | PN ---
Progress Note (short form) - Note Progress Note: ID CONSULT DICTATED SEPSIS /SEPTIC SHOCK UTI R/O SEPSIS SECONDARY TO UTI FEVER/ LEUKOCYTOSIS LACTIC ACIDOSIS ELEVATED LFTS HYPERNATREMIA HX MDRO AWAIT SEPSIS W/U EMPIRIC MEROPENEM/ LEVAQUIN
[2019-03-30] MEDS ORDERED: MEROPENEM 1 GM VIAL (RESTRICTED TO ID) IVPB ONE ×2 (10:57→22:17)
[2019-03-30] MEDS ORDERED: METOPROLOL TARTRATE 25 MG TABLET (FP) ONE ×2 (10:57→21:20)
[2019-03-30] MEDS ORDERED: METOPROLOL TARTRATE 50 MG TABLET (FP) ONE ×2 (10:57→21:20)
[2019-03-30] MEDS ORDERED: DEXTROSE 5%-WATER 100 ML IVPB ONE ×2 (10:57→22:18)
[2019-03-30] MEDS ORDERED: PT OWN MED DRAWER 7, Y5N ONE ×3 (10:58→21:21)
[2019-03-30] MEDS: PANTOPRAZOLE SOD 40 MG SUSPENSION PACKET NGT SCH (11:07)
[2019-03-30] MEDS: APIXABAN 5 MG TABLET PEG SCH ×2 (11:07→22:21)
[2019-03-30] MEDS: ASCORBIC ACID 500 MG TABLET (FP) GT SCH (11:07)
[2019-03-30] MEDS: MEROPENEM 1 GM in DEXTROSE 5%-WATER 100 ML IVPB SCH ×2 (11:10→22:20)
[2019-03-30] MEDS ORDERED: dilTIAZem HCL 30 MG TABLET (FP) PO PRN (11:17)
--- NOTE | 2019-03-30 11:42 | PN ---
Teaching Attending Note Name of Resident: Yakov Reaves ATTENDING PHYSICIAN STATEMENT I saw and evaluated the patient. I reviewed the resident's note and discussed the case with the resident. I agree with the resident's findings and plan as documented. SUBJECTIVE: Patient seen and examined in the ICU. Awake and responsive on AC Mode of vent, via Tracheostomy. Rapid AFib on 7mg Cardizem drip. Hemodynamics have remained stable. Intake & Output 03/27/19 03/28/19 03/29/19 03/30/19 23:59 23:59 23:59 23:59 Intake Total 122 1968 Output Total 500 150 Balance -378 1818 Weight 142 lb 4.8 oz 142 lb 3 oz Last Vital Signs Temp Pulse Resp BP Pulse Ox 98.9 F 148 H 20 127/70 100 03/30/19 10:00 03/30/19 10:00 03/30/19 10:00 03/30/19 10:00 03/30/19 04:06 Active Medications Albuterol/Ipratropium (Duoneb -) 1 amp NEB Q4H PRN PRN Reason: WHEEZING Apixaban (Eliquis -) 5 mg PEG BID [facility] Last Admin: 03/30/19 11:07 Dose: 5 mg Ascorbic Acid (Vitamin C -) 500 mg GT DAILY [facility] Last Admin: 03/30/19 11:07 Dose: 500 mg Diltiazem HCl (Cardizem -) 30 mg PO Q6H PRN PRN Reason: TACHYCARDIA Ferrous Sulfate (Feosol) 300 mg GT BID [facility] Diltiazem HCl 125 mg/ Dextrose 125 mls @ 5 mls/hr IVPB TITR [facility]; Protocol Last Titration: 03/30/19 05:00 Dose: 7 mg/hr, 7 mls/hr Lactated Ringer's (Lactated Ringers Solution) 1,000 ml in 1,000 mls @ 200 mls/ hr IV ASDIR [facility] Last Admin: 03/30/19 05:00 Dose: 200 mls/hr Meropenem 1 gm/ Dextrose 100 mls @ 200 mls/hr IVPB Q8H-IV [facility] Last Admin: 03/30/19 11:10 Dose: 200 mls/hr Levofloxacin (Levaquin 500 Mg Premixed Ivpb -) 500 mg in 100 mls @ 100 mls/hr IVPB DAILY [facility]; Protocol Last Admin: 03/30/19 11:11 Dose: 100 mls/hr Insulin Aspart (Novolog Vial Sliding Scale -) 1 vial SQ TIDAC [facility]; Protocol Last Admin: 03/30/19 06:31 Dose: 2 units Insulin Detemir (Levemir Vial) 10 units SQ DAILY [facility] Metoprolol Tartrate 50 mg/ (Metoprolol Tartrate 25 mg) 75 mg PO TID [facility] Last Admin: 03/30/19 11:14 Dose: 75 mg Pantoprazole Sodium (Protonix Packets For Oral Suspension -) 40 mg NGT DAILY [facility] Last Admin: 03/30/19 11:07 Dose: 40 mg Zinc Sulfate (Orazinc -) 220 mg GT DAILY [facility] EXAM: neuro: awake, responsive HEENT: anicteric, no JVD, Trach intact lungs: Vented, few scattered rhonchi, diminished at the bases heart: Rapid AFib abd: soft, non-tender ext: anasarca skin: warm, dry Laboratory Results - last 24 hr 03/29/19 03/29/19 03/29/19 17:46 18:20 18:20 WBC 11.9 H RBC 3.84 Hgb 9.7 L Hct 32.8 D MCV 85.6 MCH 25.3 L MCHC 29.5 L RDW 20.3 H Plt Count 257 D MPV 10.4 D Absolute Neuts (auto) 8.6 H Neutrophils % 72.2 Lymphocytes % 17.5 D Monocytes % 9.0 Eosinophils % 0.1 D Basophils % 1.2 Nucleated RBC % 0 PT with INR INR PTT (Actin FS) VBG pH POC VBG pCO2 POC VBG pO2 VBG HCO3 VBG O2 Sat (Dylan) VBG Base Excess Sodium 155 H Potassium 4.0 Chloride 120 H Carbon Dioxide 29 Anion Gap 6 L BUN 61.5 H Creatinine 1.2 Est GFR (CKD-EPI)AfAm 50.48 Est GFR (CKD-EPI)NonAf 43.56 POC Glucometer 320 Random Glucose 369 H Lactic Acid Calcium 8.6 Phosphorus Magnesium Total Bilirubin 0.3 Direct Bilirubin AST 151 H ALT 123 H Alkaline Phosphatase 543 H Troponin I Total Protein 6.5 Albumin 1.6 L Urine Color Urine Appearance Urine pH Ur Specific [place] Urine Protein Urine Glucose (UA) Urine Ketones Urine Blood Urine Nitrite Urine Bilirubin Urine Urobilinogen Ur Leukocyte Esterase Urine WBC (Auto) Urine RBC (Auto) Urine Casts (Auto) U Epithel Cells (Auto) Urine Bacteria (Auto) Urine Yeast (Auto) Acetaminophen Influenza A (Rapid) Influenza B (Rapid) 03/29/19 03/29/19 03/29/19 18:20 18:20 18:20 WBC RBC Hgb Hct MCV MCH MCHC RDW Plt Count MPV Absolute Neuts (auto) Neutrophils % Lymphocytes % Monocytes % Eosinophils % Basophils % Nucleated RBC % PT with INR 16.60 H INR 1.40 H PTT (Actin FS) 37.4 H VBG pH POC VBG pCO2 POC VBG pO2 VBG HCO3 VBG O2 Sat (Dylan) VBG Base Excess Sodium Potassium Chloride Carbon Dioxide Anion Gap BUN Creatinine Est GFR (CKD-EPI)AfAm Est GFR (CKD-EPI)NonAf POC Glucometer Random Glucose Lactic Acid 3.2 H* Calcium Phosphorus Magnesium Total Bilirubin Direct Bilirubin AST ALT Alkaline Phosphatase Troponin I 0.05 Total Protein Albumin Urine Color Urine Appearance Urine pH Ur Specific [place] Urine Protein Urine Glucose (UA) Urine Ketones Urine Blood Urine Nitrite Urine Bilirubin Urine Urobilinogen Ur Leukocyte Esterase Urine WBC (Auto) Urine RBC (Auto) Urine Casts (Auto) U Epithel Cells (Auto) Urine Bacteria (Auto) Urine Yeast (Auto) Acetaminophen Influenza A (Rapid) Influenza B (Rapid) 03/29/19 03/29/19 03/29/19 18:20 18:30 20:05 WBC RBC Hgb Hct MCV MCH MCHC RDW Plt Count MPV Absolute Neuts (auto) Neutrophils % Lymphocytes % Monocytes % Eosinophils % Basophils % Nucleated RBC % PT with INR INR PTT (Actin FS) VBG pH 7.40 POC VBG pCO2 46.7 POC VBG pO2 < 49 H VBG HCO3 28.6 VBG O2 Sat (Dylan) 67.4 L VBG Base Excess 3.7 H Sodium Potassium Chloride Carbon Dioxide Anion Gap BUN Creatinine Est GFR (CKD-EPI)AfAm Est GFR (CKD-EPI)NonAf POC Glucometer Random Glucose Lactic Acid Calcium Phosphorus Magnesium Total Bilirubin Direct Bilirubin AST ALT Alkaline Phosphatase Troponin I Total Protein Albumin Urine Color Yellow Urine Appearance Clear Urine pH 6.5 Ur Specific [place] 1.015 Urine Protein 2+ H Urine Glucose (UA) 3+ H Urine Ketones Negative Urine Blood 1+ H Urine Nitrite Negative Urine Bilirubin Negative Urine Urobilinogen 0.2 Ur Leukocyte Esterase 1+ H Urine WBC (Auto) 206.4 Urine RBC (Auto) 76.6 Urine Casts (Auto) 2.23 U Epithel Cells (Auto) 0.7 Urine Bacteria (Auto) 6.7 Urine Yeast (Auto) Acetaminophen Influenza A (Rapid) Negative Influenza B (Rapid) Negative 03/29/19 03/29/19 03/29/19 21:04 22:00 22:00 WBC RBC Hgb Hct MCV MCH MCHC RDW Plt Count MPV Absolute Neuts (auto) Neutrophils % Lymphocytes % Monocytes % Eosinophils % Basophils % Nucleated RBC % PT with INR INR PTT (Actin FS) VBG pH POC VBG pCO2 POC VBG pO2 VBG HCO3 VBG O2 Sat (Dylan) VBG Base Excess Sodium Potassium Chloride Carbon Dioxide Anion Gap BUN Creatinine Est GFR (CKD-EPI)AfAm Est GFR (CKD-EPI)NonAf POC Glucometer Random Glucose Lactic Acid 1.9 Calcium Phosphorus Magnesium Total Bilirubin Direct Bilirubin AST ALT Alkaline Phosphatase Troponin I Total Protein Albumin Urine Color Urine Appearance Urine pH Ur Specific [place] Urine Protein Urine Glucose (UA) Urine Ketones Urine Blood Urine Nitrite Urine Bilirubin Urine Urobilinogen Ur Leukocyte Esterase Urine WBC (Auto) Urine RBC (Auto) Urine Casts (Auto) U Epithel Cells (Auto) Urine Bacteria (Auto) Urine Yeast (Auto) Acetaminophen 5.6 10.6 Influenza A (Rapid) Influenza B (Rapid) 03/30/19 03/30/19 03/30/19 06:05 06:05 06:24 WBC 11.3 H RBC 3.35 L Hgb 8.5 L Hct 28.4 L MCV 84.7 MCH 25.5 L MCHC 30.1 L RDW 19.9 H Plt Count 184 D MPV 10.0 Absolute Neuts (auto) 8.7 H Neutrophils % 77.0 Lymphocytes % 14.7 Monocytes % 6.9 Eosinophils % 0.7 D Basophils % 0.7 Nucleated RBC % 0 PT with INR INR PTT (Actin FS) VBG pH POC VBG pCO2 POC VBG pO2 VBG HCO3 VBG O2 Sat (Dylan) VBG Base Excess Sodium 153 H Potassium 4.0 Chloride 121 H Carbon Dioxide 27 Anion Gap 6 L BUN 52.7 H Creatinine 0.9 Est GFR (CKD-EPI)AfAm 71.48 Est GFR (CKD-EPI)NonAf 61.67 POC Glucometer 248 Random Glucose 278 H Lactic Acid Calcium 7.6 L Phosphorus 3.0 Magnesium 2.6 H Total Bilirubin 0.4 Direct Bilirubin 0.2 AST 78 H ALT 92 H Alkaline Phosphatase 404 H Troponin I Total Protein 5.3 L Albumin 1.4 L Urine Color Urine Appearance Urine pH Ur Specific [place] Urine Protein Urine Glucose (UA) Urine Ketones Urine Blood Urine Nitrite Urine Bilirubin Urine Urobilinogen Ur Leukocyte Esterase Urine WBC (Auto) Urine RBC (Auto) Urine Casts (Auto) U Epithel Cells (Auto) Urine Bacteria (Auto) Urine Yeast (Auto) Acetaminophen Influenza A (Rapid) Influenza B (Rapid) ASSESSMENT: Sepsis - likely sources is UTI or sacral wound Lactic acidosis CONOR Hypernatremia IDDM COPD Chronic vent dependant respiratory failure CAD HTN AF Functional quadriplegia PLAN: -Continue IVF resuscitation -Abx coverage per ID -Continue mechanical ventilation -Glycemic control -Continue Eliquis -Titrate rate control meds -GI PPx -Vent floor once Rapid AFib is rate controlled Dr Stover
--- NOTE | 2019-03-30 11:52 | CON.CARD ---
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 with fever and rapid afib HR of 150's on Cardizem gtt similar to previous presentation. Awake and responsive on AC Mode of vent, via Tracheostomy. - History Source History Provided By: Medical Record Limitations to Obtaining History: Clinical Condition - Past Medical History TRACK RIDER: Yes: CVA (with right side hemiparesis and Aphasia) Cardio/Vascular: Yes: AFIB (on AC), Aortic Stenosis (s/p ring repair at [facility]), CAD, HTN, Mitral Insufficiency (MVR 2009 [facility]), Other (PPM) Pulmonary: Yes: COPD Gastrointestinal: Yes: Diverticulosis, GI Bleed (recent bleed felt to be 2ndary to vascular ectasias), Other (07/19 four adenomatous tx colon polyps resected, cecal angiodysplasias seen.) Hepatobiliary: Yes: Cirrhosis (wound) ...: No Rheumatology: Yes: Other (osteoarthritis) Endocrine: Yes: Diabetes Mellitus - Past Surgical History Past Surgical History: Yes: Colonoscopy, Upper Endoscopy - Alcohol/Substance Use Hx Alcohol Use: No History of Substance Use: reports: None - Smoking History Smoking history: Former smoker Have you smoked in the past 12 months: No If you are a former smoker, when did you quit?: 2007 - Social History Usual Living Arrangement: With Spouse ADL: Independent 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 History of Recent Travel: No Home Medications - Allergies Allergies/Adverse Reactions: Allergies Allergy/AdvReac Type Severity Reaction Status Date / Time No Known Allergies Allergy Verified 03/29/19 18:17 - Home Medications Home Medications: Ambulatory Orders Atorvastatin Ca [Lipitor] 80 mg PO HS tablet 07/26/17 Fluoxetine HCl Liquid [Prozac 20mg/5mL Oral Solution -] 20 mg PO DAILY 04/28/18 Metoprolol Tartrate [Lopressor -] 75 mg GT TID 04/28/18 Albuterol 0.083% Nebulizer Sandrita [Ventolin 0.083% Nebulizer Soln -] 1 amp NEB Q4H PRN amp 02/23/19 Nystatin Powder [Nystop Powder -] 1 applic TP TID applic 02/23/19 Ferrous Sulfate [Feosol] [address] [facility] 03/03/19 Apixaban [Eliquis -] 5 mg PEG BID tablet 03/20/19 Ferrous Sulfate [Feosol] [address] [facility] 03/20/19 Insulin (Levemir) [Levemir Vial] 10 units SQ AM units 03/20/19 Insulin Sliding Scale [Novolog Vial Sliding Scale -] 1 vial SQ Q6HPO units Furosemide Oral Solution [Lasix Oral Solution -] [address] [facility] 03/21/19 Acetaminophen [Tylenol .Regular Strength -] 650 mg GT Q6H PRN 03/29/19 Ascorbic Acid [Vitamin C] 500 mg GT DAILY 03/29/19 Lisinopril [Prinivil] 2.5 mg GT DAILY 03/29/19 Omeprazole Magnesium [Prilosec] 10 mg PO DAILY 03/29/19 Pantoprazole Suspension [Protonix Packets For Oral Suspension -] 160 mg PEG DAILY 03/29/19 Zinc Sulfate 220 mg GT DAILY 03/29/19 Review of Systems Unable to obtain ROS, reason: Clinical condition Vital Signs: Vital Signs Temperature 98.9 F 03/30/19 10:00 Pulse Rate 148 H 03/30/19 10:00 Respiratory Rate 20 03/30/19 10:00 Blood Pressure 127/70 03/30/19 10:00 O2 Sat by Pulse Oximetry (%) 100 03/30/19 04:06 Constitutional: Yes: No Distress, Calm Neck: Yes: Other (Tracheostomy) Respiratory: Yes: Mechanically Ventilated, Rhonchi Gastrointestinal: Yes: Normal Bowel Sounds, Soft, Other (PEG in place) Cardiovascular: Yes: Tachycardia, Pulse Irregular JVD: No Carotid Bruit: No Heart Sounds: Yes: S1, S2 Edema: Yes Edema: LLE: Trace, RLE: Trace - Other Data Labs, Other Data: CBC, BMP 03/30/19 06:05 03/30/19 06:05 INR, PTT INR 1.40 (0.83-1.09) H 03/29/19 18:20 Troponin, BNP 03/29/19 18:20 Troponin I 0.05 Troponin, BNP 03/29/19 18:20 Troponin I 0.05 Rapid afib @ 150 Tele: Rapid afib Ejection Fraction %: LVEF > or = 40 % Imaging - Results Chest X-ray: Report Reviewed (Congestion with bibasilar changes) Problem List - Problems (1) Sepsis Code(s): A41.9 - SEPSIS, UNSPECIFIED ORGANISM Qualifiers: Sepsis type: sepsis due to unspecified organism Sepsis acute organ dysfunction status: without acute organ dysfunction Qualified Code(s): A41.9 - Sepsis, unspecified organism (2) A-fib Code(s): I48.91 - UNSPECIFIED ATRIAL FIBRILLATION Qualifiers: Atrial fibrillation type: longstanding persistent Qualified Code(s): I48.11 - Longstanding persistent atrial fibrillation (3) Atrial fibrillation with RVR Code(s): I48.91 - UNSPECIFIED ATRIAL FIBRILLATION (4) CAD (coronary artery disease) Code(s): I25.10 - ATHSCL HEART DISEASE OF [place] CORONARY ARTERY W/O ANG PCTRS Qualifiers: Coronary Disease-Associated Artery/Lesion type: [place] artery [place] vs. transplanted heart: [place] heart Associated angina: without angina Qualified Code(s): I25.10 - Atherosclerotic heart disease of [place] coronary artery without angina pectoris (5) Diabetes mellitus Code(s): E11.9 - TYPE 2 DIABETES MELLITUS WITHOUT COMPLICATIONS Qualifiers: Diabetes mellitus type: type 2 (6) Diastolic dysfunction Code(s): I51.89 - OTHER ILL-DEFINED HEART DISEASES (7) Hypernatremia Code(s): E87.0 - HYPEROSMOLALITY AND HYPERNATREMIA (8) S/P mitral valve repair Code(s): Z98.890 - OTHER SPECIFIED POSTPROCEDURAL STATES (9) Sick sinus syndrome Code(s): I49.5 - SICK SINUS SYNDROME (10) Stage 4 skin ulcer of sacral region Code(s): L98.429 - NON-PRESSURE CHRONIC ULCER OF BACK WITH UNSPECIFIED SEVERITY (11) Ventilator dependent Code(s): Z99.11 - DEPENDENCE ON RESPIRATOR [VENTILATOR] STATUS (12) Diabetes mellitus Code(s): E11.9 - TYPE 2 DIABETES MELLITUS WITHOUT COMPLICATIONS Qualifiers: Diabetes mellitus type: type 2 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 use: without intermodal truck driver use Diabetes mellitus complication status: without complication Qualified Code(s): E11.9 - Type 2 diabetes mellitus without complications (13) H/O mitral valve replacement Code(s): Z95.2 - PRESENCE OF PROSTHETIC HEART VALVE (14) HTN (hypertension) Code(s): I10 - ESSENTIAL (PRIMARY) HYPERTENSION Qualifiers: Hypertension type: essential hypertension Qualified Code(s): I10 - Essential (primary) hypertension (15) Hyperlipidemia Code(s): E78.5 - HYPERLIPIDEMIA, UNSPECIFIED Qualifiers: Hyperlipidemia type: pure hypercholesterolemia Qualified Code(s): E78.00 - Pure hypercholesterolemia, unspecified; E78.0 - Pure hypercholesterolemia Assessment/Plan 02/18/2019 EGD revealing mild patchy antral erythema otherwise unremarkable. No obvious ulcers or angioectasias seen 04/30/2018 Echo: Normal LV size and fxn, severe TR RVSP 50-60 mmHg, mild MR EGD and colonoscopy in 07/2017 revealing gastritis, cecal AVM and four tubular adenomas 12/17/2016 reveal: 03/2009 acute systolic CHF and WA, R&LHc 90% distal OM1, 60% D1, preserved LV fxn, elevated LVEDP BULMARO severe posterior leaflet prolapse with severe MR->MV annuloplasty repair, afib, sinus arrest->PPM, CAD left alone. [facility] Echo: 06/28/16 normal biventricular fxn, COSMO, mod TR, MV ring Nuc stress 09/13/2016 Anterolateral ischemia/infarct SDS 3 EF 82%, abnl ecg changes 1. Sepsis/septic shock due to source with UTI (recurrence) 2. Diastolic dysfunction 3. Respiratory failure (chronic) on mechanical ventilation s/p tracheostomy and PEG 4. CAD, angina pectoris 5. Permanent AF with RVR [id number] score of 9 on DOAC 6. Sick sinus syndrome s/p PPM 7. Post mitral valve repair 8. History of HTN 9. Hypercholesterolemia 10. COPD 11. Hypernatremia 12. Anemia h/o GI Bleed 13. History of CVA 14. Sacral decubitus ulcer 15. Abnl LFTs downtrending PLAN: 1. Resumed empiric MEROPENEM/ LEVAQUIN antibiotic coverage per C&S 2. Metoprolol 75 tid via PEG and Cardizem gtt for added rate control as BP tolerates 3. Eliquis 5 mg BID, Lipitor 80 qd held for elevated LFTs 4. Continue vent support O2 to keep SpO2 >90%, BD as needed 5. Enteral feeds 6. DVT/GI prophylaxis 7. Free H20 repletion 8. Thank you for consultative opportunity
[2019-03-30] MEDS ORDERED: dilTIAZem HCL 30 MG TABLET (FP) PO SCH (12:00)
--- NOTE | 2019-03-30 12:19 | CONSULT ---
Consult - text type - Consultation Consultation Note: Renal consult for hypernatremia This is a 79 year old woman with history of chronic respiratory failure on vent via trach, CVA, COPD, IDDM, CAD, Afib, sacural ulcers who presented with fever and lethargy and admitted for suspected sepsis with Na of 155. Pt was seen by our service on prior admissions for CONOR and hypernatremia. Pt is awake but non- verbal. Was febrile on admission but afebrile now. No diarrhea noted per nurse. Has chronic craven which was exchanged in the ER. PMhx: as above Allergies: NKDA Family Hx: NC Social Hx: Unknown ROS: unable to obtain because of clinical status Vital Signs Temperature 98.9 F 03/30/19 10:00 Pulse Rate 148 H 03/30/19 10:00 Respiratory Rate 03/30/19 10:00 Blood Pressure 127/70 03/30/19 10:00 O2 Sat by Pulse Oximetry (%) 100 03/30/19 04:06 Intake & Output 03/27/19 03/28/19 03/29/19 03/30/19 23:59 23:59 23:59 23:59 Intake Total 122 1968 Output Total 500 150 Balance -378 1818 Weight 64.546 kg 64.495 kg NAD on vent via trach neck supple irregular, no M/R Dec BS, no rales or wheeze soft NT/ND + upper extremity edema trace LE edema CBC, BMP 03/30/19 06:05 03/30/19 06:05 Current Medications Albuterol/Ipratropium (Duoneb -) 1 amp NEB Q4H PRN PRN Reason: WHEEZING Apixaban (Eliquis -) 5 mg PEG BID [facility] Last Admin: 03/30/19 11:07 Dose: 5 mg Ascorbic Acid (Vitamin C -) 500 mg GT DAILY [facility] Last Admin: 03/30/19 11:07 Dose: 500 mg Diltiazem HCl (Cardizem -) 30 mg PO Q6H PRN PRN Reason: TACHYCARDIA Ferrous Sulfate (Feosol) 300 mg GT BID [facility] Diltiazem HCl 125 mg/ Dextrose 125 mls @ 5 mls/hr IVPB TITR [facility]; Protocol Last Titration: 03/30/19 05:00 Dose: 7 mg/hr, 7 mls/hr Lactated Ringer's (Lactated Ringers Solution) 1,000 ml in 1,000 mls @ 200 mls/ hr IV ASDIR [facility] Last Admin: 03/30/19 05:00 Dose: 200 mls/hr Meropenem 1 gm/ Dextrose 100 mls @ 200 mls/hr IVPB Q8H-IV [facility] Last Admin: 03/30/19 11:10 Dose: 200 mls/hr Levofloxacin (Levaquin 500 Mg Premixed Ivpb -) 500 mg in 100 mls @ 100 mls/hr IVPB DAILY [facility]; Protocol Last Admin: 03/30/19 11:11 Dose: 100 mls/hr Insulin Aspart (Novolog Vial Sliding Scale -) 1 vial SQ TIDAC [facility]; Protocol Last Admin: 03/30/19 06:31 Dose: 2 units Insulin Detemir (Levemir Vial) 10 units SQ DAILY [facility] Metoprolol Tartrate 50 mg/ (Metoprolol Tartrate 25 mg) 75 mg PO TID [facility] Last Admin: 03/30/19 11:14 Dose: 75 mg Pantoprazole Sodium (Protonix Packets For Oral Suspension -) 40 mg NGT DAILY [facility] Last Admin: 03/30/19 11:07 Dose: 40 mg Zinc Sulfate (Orazinc -) 220 mg GT DAILY [facility] 79 year old woman with history of chronic respiratory failure on vent via trach , CVA, COPD, IDDM, CAD, Afib, sacural ulcers who presented with fever and lethargy and admitted for suspected sepsis with Na of 155. 1. Hypernatremia (water deficit is 2.7L) 2. Sepsis r/o urinary source 3. Chronic Respiratory failure 4. Chronic anemia Continue LR as per ICU for sepsis management. Can titrate off when able to as pt does have 3rd spacing Start free water via GT 300cc Q8h for now. Continue empiric antibiotics per ID pending cultures Vent support as per ICU trend H/H, transfusion protocol as per ICU Thank you Tashi Aguirer DO
[2019-03-30] MEDS ORDERED: INSULIN (NOVOLOG) ASPART 100 UNITS/ML 10ML VIAL ONE (12:29)
--- NOTE | 2019-03-30 13:33 | CONS ---
INFECTIOUS DISEASE CONSULTATION DATE OF CONSULTATION: DATE OF DICTATION: 03/30/2019 HISTORY: The patient is a 79-year-old female who was evaluated for sepsis. History was obtained from the chart as she cannot give a history secondary to her mental status. She has a history of stroke and chronic respiratory failure on a ventilator. She is a resident of a retirement facility. She has had recent hospital admissions in February and March of this year. Her course has been complicated by multidrug-resistant pathogens. [facility] she was noted to have fever, tachycardia, and elevated blood pressure. She was also noted to be more lethargic. In the emergency room, the patient was febrile to 101.7, tachycardic with a heart rate of 153, and hypertensive with a blood pressure of 153/103. Her admitting laboratories showed elevated white blood cell count. Chest x-ray showed bilateral congestion at the bases bilaterally. She was admitted to the intensive care unit where she was empirically treated with meropenem and Levaquin. At the present time, she is awake. She is not verbally responsive. She is in chronic respiratory failure on the ventilator. She continues to be tachycardic, and blood pressure is low. 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 PAST SURGICAL HISTORY: Status post tracheostomy and permanent pacemaker. ALLERGIES: No known drug allergies. MEDICATIONS: Include Tylenol, albuterol, Eliquis, Cardizem, Levaquin, meropenem. SOCIAL HISTORY: She is a [facility]iary resident. Dependent in activities of daily living. Recent hospital admissions as noted. SYSTEMS REVIEW: Neurologic: Positive for stroke. Cardiac: Positive for atrial fibrillation, sick sinus syndrome, permanent pacemaker. Respiratory: Positive for chronic respiratory failure. Gastrointestinal: Status post feeding gastrostomy. Genitourinary: History of urinary tract infections. LABORATORY DATA: White count 11.3, hematocrit 28.4, platelets 184. Sodium 153, creatinine 0.9, lactic acid 1.9, total bilirubin 0.4, alkaline phosphatase 404, AST 78, ALT 92. Urinalysis; 206 white cells. Influenza swab negative. Chest x-ray, increased congestion at the bases bilaterally. PHYSICAL EXAMINATION: General: On exam, she is awake. She is not acutely toxic appearing. Vital Signs: Temperature 98.4, maximum temperature 101.7, blood pressure 100/70, pulse 122 regular, respirations 20 per minute. HEENT: Sclerae anicteric. Status post tracheostomy. Heart: Sounds S1, S2. Tachycardic. Lungs: Air entry bilaterally. Abdomen: Soft and nontender. Extremities: Positive for upper and lower extremity edema bilaterally. Skin: Sacral decubitus ulcer with VAC in place. IMPRESSION: 1. Sepsis/septic shock. 2. Urinary tract infection, rule out sepsis secondary to urinary tract infection. 3. Stage 4 sacral decubitus ulcer. 4. Lactic acidosis. 5. Leukocytosis. 6. Hypernatremia. 7. Elevated liver enzymes. 8. History of multidrug-resistant pathogens. PLAN: Await sepsis workup. Continue ICU monitoring. Hemodynamic support. Empiric antibiotic coverage with meropenem and Levaquin pending sepsis workup. Prognosis is guarded. We will follow. Thank you for the kind referral. SHARMAINE PARR M.D. [id number]
--- NOTE | 2019-03-30 13:57 | EKG ---
Test Reason : Blood Pressure : / mmHG Vent. Rate : 150 BPM Atrial Rate : 396 BPM P-R Int : 000 ms QRS Dur : 070 ms QT Int : 322 ms P-R-T Axes : 000 034 107 degrees QTc Int : 508 ms ATRIAL FLUTTER WITH VARIABLE A-V BLOCK LOW VOLTAGE QRS NONSPECIFIC T WAVE ABNORMALITY ABNORMAL ECG WHEN COMPARED WITH ECG OF 09-MAR-2019 22:33, ATRIAL FLUTTER HAS REPLACED ATRIAL FIBRILLATION Confirmed by David Barrett ([id number]) on 03/30/2019 1:57:43 PM Referred By: Confirmed By:David Barrett
--- NOTE | 2019-03-30 14:38 | PN ---
Physical Exam: SUBJECTIVE: Patient seen and examined in the morning. Patient was transferred to ICU overnight, was in afib on admission. Patient has sinus tachycardia on cardiac monitoring. Patient shakes head no to questions regarding chest pain and abdominal pain. OBJECTIVE: Vital Signs Period Temp Pulse Resp BP Sys/[place] Pulse Ox Last 24 Hr 97.1 F-101.7 F 100-153 15-39 75-162/53-131 100-100 GENERAL: The patient is awake, alert, and fully oriented, in no acute distress. HEAD: Tracheostomy in place. EYES: PERRLA LUNGS: Breath sounds equal, crackles present. . HEART: Tachycardic no murmur, rub or gallop. ABDOMEN: Soft, nontender, nondistended, normoactive bowel sounds, no guarding, no rebound, no hepatosplenomegaly, no masses. EXTREMITIES: 2+ pulses, warm, well-perfused, +1 edema. SKIN: Warm, dry, normal turgor, no rashes or lesions noted Laboratory Results - last 24 hr 03/29/19 03/29/19 03/29/19 17:46 18:20 18:20 WBC 11.9 H RBC 3.84 Hgb 9.7 L Hct 32.8 D MCV 85.6 MCH 25.3 L MCHC 29.5 L RDW 20.3 H Plt Count 257 D MPV 10.4 D Absolute Neuts (auto) 8.6 H Neutrophils % 72.2 Lymphocytes % 17.5 D Monocytes % 9.0 Eosinophils % 0.1 D Basophils % 1.2 Nucleated RBC % 0 PT with INR INR PTT (Actin FS) VBG pH POC VBG pCO2 POC VBG pO2 VBG HCO3 VBG O2 Sat (Dylan) VBG Base Excess Sodium 155 H Potassium 4.0 Chloride 120 H Carbon Dioxide 29 Anion Gap 6 L BUN 61.5 H Creatinine 1.2 Est GFR (CKD-EPI)AfAm 50.48 Est GFR (CKD-EPI)NonAf 43.56 POC Glucometer 320 Random Glucose 369 H Lactic Acid Calcium 8.6 Phosphorus Magnesium Total Bilirubin 0.3 Direct Bilirubin AST 151 H ALT 123 H Alkaline Phosphatase 543 H Troponin I Total Protein 6.5 Albumin 1.6 L Urine Color Urine Appearance Urine pH Ur Specific [place] Urine Protein Urine Glucose (UA) Urine Ketones Urine Blood Urine Nitrite Urine Bilirubin Urine Urobilinogen Ur Leukocyte Esterase Urine WBC (Auto) Urine RBC (Auto) Urine Casts (Auto) U Epithel Cells (Auto) Urine Bacteria (Auto) Urine Yeast (Auto) Acetaminophen Influenza A (Rapid) Influenza B (Rapid) 03/29/19 03/29/19 03/29/19 18:20 18:20 18:20 WBC RBC Hgb Hct MCV MCH MCHC RDW Plt Count MPV Absolute Neuts (auto) Neutrophils % Lymphocytes % Monocytes % Eosinophils % Basophils % Nucleated RBC % PT with INR 16.60 H INR 1.40 H PTT (Actin FS) 37.4 H VBG pH POC VBG pCO2 POC VBG pO2 VBG HCO3 VBG O2 Sat (Dylan) VBG Base Excess Sodium Potassium Chloride Carbon Dioxide Anion Gap BUN Creatinine Est GFR (CKD-EPI)AfAm Est GFR (CKD-EPI)NonAf POC Glucometer Random Glucose Lactic Acid 3.2 H* Calcium Phosphorus Magnesium Total Bilirubin Direct Bilirubin AST ALT Alkaline Phosphatase Troponin I 0.05 Total Protein Albumin Urine Color Urine Appearance Urine pH Ur Specific [place] Urine Protein Urine Glucose (UA) Urine Ketones Urine Blood Urine Nitrite Urine Bilirubin Urine Urobilinogen Ur Leukocyte Esterase Urine WBC (Auto) Urine RBC (Auto) Urine Casts (Auto) U Epithel Cells (Auto) Urine Bacteria (Auto) Urine Yeast (Auto) Acetaminophen Influenza A (Rapid) Influenza B (Rapid) 03/29/19 03/29/19 03/29/19 18:20 18:30 20:05 WBC RBC Hgb Hct MCV MCH MCHC RDW Plt Count MPV Absolute Neuts (auto) Neutrophils % Lymphocytes % Monocytes % Eosinophils % Basophils % Nucleated RBC % PT with INR INR PTT (Actin FS) VBG pH 7.40 POC VBG pCO2 46.7 POC VBG pO2 < 49 H VBG HCO3 28.6 VBG O2 Sat (Dylan) 67.4 L VBG Base Excess 3.7 H Sodium Potassium Chloride Carbon Dioxide Anion Gap BUN Creatinine Est GFR (CKD-EPI)AfAm Est GFR (CKD-EPI)NonAf POC Glucometer Random Glucose Lactic Acid Calcium Phosphorus Magnesium Total Bilirubin Direct Bilirubin AST ALT Alkaline Phosphatase Troponin I Total Protein Albumin Urine Color Yellow Urine Appearance Clear Urine pH 6.5 Ur Specific [place] 1.015 Urine Protein 2+ H Urine Glucose (UA) 3+ H Urine Ketones Negative Urine Blood 1+ H Urine Nitrite Negative Urine Bilirubin Negative Urine Urobilinogen 0.2 Ur Leukocyte Esterase 1+ H Urine WBC (Auto) 206.4 Urine RBC (Auto) 76.6 Urine Casts (Auto) 2.23 U Epithel Cells (Auto) 0.7 Urine Bacteria (Auto) 6.7 Urine Yeast (Auto) Acetaminophen Influenza A (Rapid) Negative Influenza B (Rapid) Negative 03/29/19 03/29/19 03/29/19 21:04 22:00 22:00 WBC RBC Hgb Hct MCV MCH MCHC RDW Plt Count MPV Absolute Neuts (auto) Neutrophils % Lymphocytes % Monocytes % Eosinophils % Basophils % Nucleated RBC % PT with INR INR PTT (Actin FS) VBG pH POC VBG pCO2 POC VBG pO2 VBG HCO3 VBG O2 Sat (Dylan) VBG Base Excess Sodium Potassium Chloride Carbon Dioxide Anion Gap BUN Creatinine Est GFR (CKD-EPI)AfAm Est GFR (CKD-EPI)NonAf POC Glucometer Random Glucose Lactic Acid 1.9 Calcium Phosphorus Magnesium Total Bilirubin Direct Bilirubin AST ALT Alkaline Phosphatase Troponin I Total Protein Albumin Urine Color Urine Appearance Urine pH Ur Specific [place] Urine Protein Urine Glucose (UA) Urine Ketones Urine Blood Urine Nitrite Urine Bilirubin Urine Urobilinogen Ur Leukocyte Esterase Urine WBC (Auto) Urine RBC (Auto) Urine Casts (Auto) U Epithel Cells (Auto) Urine Bacteria (Auto) Urine Yeast (Auto) Acetaminophen 5.6 10.6 Influenza A (Rapid) Influenza B (Rapid) 03/30/19 03/30/19 03/30/19 06:05 06:05 06:24 WBC 11.3 H RBC 3.35 L Hgb 8.5 L Hct 28.4 L MCV 84.7 MCH 25.5 L MCHC 30.1 L RDW 19.9 H Plt Count 184 D MPV 10.0 Absolute Neuts (auto) 8.7 H Neutrophils % 77.0 Lymphocytes % 14.7 Monocytes % 6.9 Eosinophils % 0.7 D Basophils % 0.7 Nucleated RBC % 0 PT with INR INR PTT (Actin FS) VBG pH POC VBG pCO2 POC VBG pO2 VBG HCO3 VBG O2 Sat (Dylan) VBG Base Excess Sodium 153 H Potassium 4.0 Chloride 121 H Carbon Dioxide 27 Anion Gap 6 L BUN 52.7 H Creatinine 0.9 Est GFR (CKD-EPI)AfAm 71.48 Est GFR (CKD-EPI)NonAf 61.67 POC Glucometer 248 Random Glucose 278 H Lactic Acid Calcium 7.6 L Phosphorus 3.0 Magnesium 2.6 H Total Bilirubin 0.4 Direct Bilirubin 0.2 AST 78 H ALT 92 H Alkaline Phosphatase 404 H Troponin I Total Protein 5.3 L Albumin 1.4 L Urine Color Urine Appearance Urine pH Ur Specific [place] Urine Protein Urine Glucose (UA) Urine Ketones Urine Blood Urine Nitrite Urine Bilirubin Urine Urobilinogen Ur Leukocyte Esterase Urine WBC (Auto) Urine RBC (Auto) Urine Casts (Auto) U Epithel Cells (Auto) Urine Bacteria (Auto) Urine Yeast (Auto) Acetaminophen Influenza A (Rapid) Influenza B (Rapid) 03/30/19 12:34 WBC RBC Hgb Hct MCV MCH MCHC RDW Plt Count MPV Absolute Neuts (auto) Neutrophils % Lymphocytes % Monocytes % Eosinophils % Basophils % Nucleated RBC % PT with INR INR PTT (Actin FS) VBG pH POC VBG pCO2 POC VBG pO2 VBG HCO3 VBG O2 Sat (Dylan) VBG Base Excess Sodium Potassium Chloride Carbon Dioxide Anion Gap BUN Creatinine Est GFR (CKD-EPI)AfAm Est GFR (CKD-EPI)NonAf POC Glucometer 265 Random Glucose Lactic Acid Calcium Phosphorus Magnesium Total Bilirubin Direct Bilirubin AST ALT Alkaline Phosphatase Troponin I Total Protein Albumin Urine Color Urine Appearance Urine pH Ur Specific [place] Urine Protein Urine Glucose (UA) Urine Ketones Urine Blood Urine Nitrite Urine Bilirubin Urine Urobilinogen Ur Leukocyte Esterase Urine WBC (Auto) Urine RBC (Auto) Urine Casts (Auto) U Epithel Cells (Auto) Urine Bacteria (Auto) Urine Yeast (Auto) Acetaminophen Influenza A (Rapid) Influenza B (Rapid) Active Medications Generic Name Dose Route Start Last Admin Trade Name Freq PRN Reason Stop Dose Admin Albuterol/Ipratropium 1 amp 03/29/19 22:37 Duoneb - NEB Q4H PRN WHEEZING Apixaban 5 mg 03/29/19 22:15 03/30/19 11:07 Eliquis - PEG 5 mg BID BAHMAN Administration Ascorbic Acid 500 mg 03/30/19 10:00 03/30/19 11:07 Vitamin C - GT 500 mg DAILY BAHMAN Administration Diltiazem HCl 30 mg 03/30/19 11:17 Cardizem - PO Q6H PRN TACHYCARDIA Ferrous Sulfate 300 mg 03/30/19 10:00 Feosol GT BID BAHMAN Diltiazem HCl 125 mg/ Dextrose 125 mls @ 5 mls/hr 03/29/19 23:30 03/30/19 05: 00 IVPB 7 mg/hr TITR BAHMAN 7 mls/hr Titration Protocol 5 MG/HR Lactated Ringer's 1,000 ml in 1,000 mls @ 200 mls/hr 03/30/19 05:46 03/30/19 12:17 Lactated Ringers Solution IV 200 mls/hr ASDIR BAHMAN Administration Meropenem 1 gm/ Dextrose 100 mls @ 200 mls/hr 03/30/19 11:00 03/30/19 11:10 IVPB 200 mls/hr Q8H-IV BAHMAN Administration Levofloxacin 500 mg in 100 mls @ 100 mls/hr 03/30/19 11:00 03/30/19 11:11 Levaquin 500 Mg Premixed Ivpb - IVPB 100 mls/hr DAILY BAHMAN Administration Protocol Insulin Aspart 1 vial 03/30/19 07:00 03/30/19 12:36 Novolog Vial Sliding Scale - SQ 3 units TIDAC BAHMAN Administration Protocol Metoprolol Tartrate 50 mg/ 75 mg 03/30/19 06:00 03/30/19 11:14 Metoprolol Tartrate 25 mg PO 75 mg TID BAHMAN Administration Pantoprazole Sodium 40 mg 03/30/19 10:00 03/30/19 11:07 Protonix Packets For Oral Suspension - NGT 40 mg DAILY BAHMAN Administration Zinc Sulfate 220 mg 03/30/19 10:00 Orazinc - GT DAILY BAHMAN ASSESSMENT/PLAN: 79 F PMH CAD, Afib (eliquis), CVA (RUE/LE paralysis, non verbal), sick sinus syndrome s/p PPM, chronic respiratory failure s/p trach, COPD, HTN, DM, GIB, chronic sacral ulcer presenting with sepsis likely secondary to chronic sacral ulcer. Neuro -Unable to assess mentation -Continue Prozac 20 mg daily home med Cardiovascular -Afib c/w eliquis -Lopressor 75mg TID; Cardizem 30mg Q6H PRN -Cardizem drip @ 7 will titrate down. -echo 04/2108: normal EF, severe TR, mild MR Pulm -On trach to vent: Vt 350, RR 12, PEEP 5 Fio2 50% -Albuterol nebs PRN -Maintain O2 > 90% GI -Stable, no issues -NPO -Continue to monitor. ID -Septic shock. -likely UTI vs sepsis from sacral wound -Has history of Klebsiella ESBL, and stenotrophomaonas maltophillia -Was given vancomycin, meropenem, and levaquin -Continue Meropenem and levaquin Heme -normocytic anemia -monitor H&H, stable Endo -ISS -BGMS ACHS F: LR@ 100 E: Trend CMP N: Tube feeds once stable DVT: Eliquis 5 mg Dispo: Continue ICU monitoring. Visit type - Emergency Visit Emergency Visit: Yes ED Registration Date: 03/29/19 Care time: The patient presented to the Emergency Department on the above date and was hospitalized for further evaluation of their emergent condition. - New Patient This patient is new to me today: Yes Date on this admission: 03/30/19 - Critical Care Critical Care patient: Yes Total Critical Care Time (in minutes): 35 Critical Care Statement: The care of this patient involved high complexity decision making to prevent further life threatening deterioration of the patient 's condition and/or to evaluate & treat vital organ system(s) failure or risk of failure. ATTENDING PHYSICIAN STATEMENT I saw and evaluated the patient. I reviewed the resident's note and discussed the case with the resident. I agree with the resident's findings and plan as documented. SUBJECTIVE: OBJECTIVE: ASSESSMENT AND PLAN:
[2019-03-30] MEDS: FERROUS SO4 300 MG/5 ML ORAL SOLN UNIT DOSE CUPS GT SCH ×2 (15:09→23:00)
[2019-03-30] MEDS: ZINC SULFATE 220 MG CAPSULE (FP) GT SCH (15:09)
[2019-03-30] MEDS ORDERED: LACTATED RINGERS SOLUTION 1,000 ML/1,000 ML INFUS.BAG IV SCH (16:42)
[2019-03-30] MEDS: DILTIAZEM INJECTION 125 MG in DEXTROSE 5%-WATER - 100 ML IVPB SCH (19:10)
--- NOTE | 2019-03-30 22:31 | CONSULT ---
Consult Consult Specialty:: General Surgery Referred by:: Dr. Uriarte Reason for Consultation:: sacral decubitus - History of Present Illness Chief Complaint: pt cannot offer History of Present Illness: 79yo F with multiple medical problems, including but not limited to: HTN, HLD, DM, COPD, CKD, afib on Eliquis, CAD, s/p MVR/annular ring, s/p pacemaker, s/p trach and PEG after CVA with R-sided residual weakness, functional quadriplegia , chronically vent-dependent, aphasic, chronic De [place], stage 4 sacral decubitus, recent hospitalization for UTI, ?pneumonia, with h/o multiple MDR organisms, presented to ER from [facility] for fever, tachycardia, lethargy, suspected sepsis ( UTI or sacral wound as possible source?). In ER, she had T 101.7, now afebrile; UA had 1+ LE, 200 WBC, 75 RBC, 6.7 bacteria, and De Santiago was changed in ER (cx pending). She has been given IV fluids with improvement in mild hypotension and initially higher tachycardia. At last admission this month, VAC was initiated on sacral ulcer (just over 2 weeks ago), after consultation by surgical PA/Dr. Shore. Surgery was asked to assess sacral wound at this time. She is seen and examined in ICU bed, with nurse and aide, being cleaned up from diarrhea. Sacral VAC dressing is in place but not intact, and not connected to machine. Pt is awake and responds to some questions with nods/shakes, but is nonverbal and vented via trach. She denies pain in buttocks, or anywhere else, by shaking head. She nods when asked if she is ok. She is unable to offer any history or complaint herself - history is from medical record/chart only. " Wound culture" was taken in some way from sacral wound - gram stain shows no WBC or organisms, cx is pending. Consults from ID, cardiology, ICU, nephrology are noted and appreciated. - History Source History Provided By: Medical Record Limitations to Obtaining History: Clinical Condition - Past Medical History BACK END ARCHITECT: Yes: CVA (with right side hemiparesis and Aphasia) Cardio/Vascular: Yes: AFIB (on AC), CAD, HTN, Mitral Insufficiency (MVR 2010 [facility] w/annular ring), Other (PPM) Pulmonary: Yes: COPD, Previously Intubated (chronic vent-dependent/trached) Gastrointestinal: Yes: Diverticulosis, GI Bleed (recent bleed felt to be 2ndary to vascular ectasias), Other (07/19 four adenomatous tx colon polyps resected, cecal angiodysplasias seen.) Renal/: Yes: Renal Inusuff, UTI, Other (chronic De Santiago) Reproductive: Yes: Postmenopausal Infectious Disease: Yes: Other (multidrug resistant organisms) Musculoskeletal: Yes: Osteoarthritis, Other (R sided weakness from CVA) Endocrine: Yes: Diabetes Mellitus Additional Medical History: stage 4 sacral decubitus - Past Surgical History Past Surgical History: Yes: Colonoscopy, Permanent Pacemaker, Upper Endoscopy, Valve Replacement (mitral annuloplasty) Additional Surgical History: PEG, tracheostomy - Alcohol/Substance Use Hx Alcohol Use: No History of Substance Use: reports: None - Smoking History Smoking history: Former smoker Have you smoked in the past 12 months: No If you are a former smoker, when did you quit?: 2007 - Social History Usual Living Arrangement: Residential (previously with spouse) ADL: Support Services 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 History of Recent Travel: No Home Medications - Allergies Allergies/Adverse Reactions: Allergies Allergy/AdvReac Type Severity Reaction Status Date / Time No Known Allergies Allergy Verified 03/29/19 18:17 - Home Medications Home Medications: Ambulatory Orders Atorvastatin Ca [Lipitor] 80 mg PO HS tablet 07/26/17 Fluoxetine HCl Liquid [Prozac 20mg/5mL Oral Solution -] 20 mg PO DAILY 04/28/18 Metoprolol Tartrate [Lopressor -] 75 mg GT TID 04/28/18 Albuterol 0.083% Nebulizer Sandrita [Ventolin 0.083% Nebulizer Soln -] 1 amp NEB Q4H PRN amp 02/23/19 Nystatin Powder [Nystop Powder -] 1 applic TP TID applic 02/23/19 Ferrous Sulfate [Feosol] 300 mg GT BID udc 03/03/19 Apixaban [Eliquis -] 5 mg PEG BID tablet 03/20/19 Ferrous Sulfate [Feosol] 300 mg GT DAILY udc 03/20/19 Insulin (Levemir) [Levemir Vial] 10 units SQ AM units 03/20/19 Insulin Sliding Scale [Novolog Vial Sliding Scale -] 1 vial SQ Q6HPO units Furosemide Oral Solution [Lasix Oral Solution -] 20 mg GT DAILY udc 03/21/19 Acetaminophen [Tylenol .Regular Strength -] 650 mg GT Q6H PRN 03/29/19 Ascorbic Acid [Vitamin C] 500 mg GT DAILY 03/29/19 Lisinopril [Prinivil] 2.5 mg GT DAILY 03/29/19 Omeprazole Magnesium [Prilosec] 10 mg PO DAILY 03/29/19 Pantoprazole Suspension [Protonix Packets For Oral Suspension -] 160 mg PEG DAILY 03/29/19 Zinc Sulfate 220 mg GT DAILY 03/29/19 Family Medical History Family History: Unable to Obtain (noncontributory) Review of Systems Unable to obtain ROS, reason: pt cannot offer Physical Exam Vital Signs: Vital Signs Temperature 98 F 03/30/19 18:00 Pulse Rate 100 H 03/30/19 19:10 Respiratory Rate 21 H 03/30/19 20:30 Blood Pressure 110/92 03/30/19 19:10 O2 Sat by Pulse Oximetry (%) 100 03/30/19 04:06 Constitutional: Yes: Well Nourished, No Distress, Calm Eyes: Yes: Conjunctiva Clear, EOM Intact. No: Sclera Icterus HENT: Yes: Atraumatic, Normocephalic Neck: Yes: Supple, Other (tracheostomy in place) Cardiovascular: Yes: Tachycardia, Pulse Irregular (difficult to tell but chronic afib) Respiratory: Yes: Regular, CTA Bilaterally (with few/slight/scattered rhonchi), Mechanically Ventilated (via trach) Gastrointestinal: Yes: Normal Bowel Sounds, Soft, Other (PEG in place, 1.5-2cm at skin level, mild skin irritation under flange; drain dressing in place). No : Tenderness ...Rectal Exam: Yes: Deferred (ROLF deferred), Other (+ loose orangey brown stool /diarrhea) Renal/: Yes: De Santiago Present. No: Hematuria Musculoskeletal: Yes: Joint Stiffness, Muscle Weakness Extremities: No: Cool, Cyanosis Edema: Yes Edema: LUE: 2+, RUE: 2+, LLE: 1+, RLE: 1+ Peripheral Pulses WNL: Yes Integumentary: Yes: Pressure Ulcer (<1cm right elbow, clean/pink, slight skin erosion (stage 1), covered with Allevyn foam dressing; sacral decub stage 4 - present on admission - VAC dressing removed from site (not connected); wound 9 x 7cm with bone palpable at right base; generally very clean with pink base, some fibrinous pale tissue scattered more on right side in undermined area and part of base; undermining both sides - about 3cm on right, 2cm and less on left ; packed before depth measured, probably about 3-4 cm; saline-dampened Kerlix ( one full roll) used to pack wound site, covered with folded ABD pad, little paper tape to hold under diaper). No: Jaundice, Rash Wound/Incision: Yes: Dressing Removed (sacral - see above), Unapproximated, Other (clean/pink wound base) Neurological: Yes: Alert, Aphasia, Pre-Existing Deficit (nonverbal/trached, R side limb weakness secondary to CVA, functional quadriplegia) Psychiatric: Yes: Alert. No: Agitated Labs: CBC, BMP 03/30/19 06:05 03/30/19 06:05 CMP Sodium 153 mmol/L (136-145) H 03/30/19 06:05 Potassium 4.0 mmol/L (3.5-5.1) 03/30/19 06:05 Chloride 121 mmol/L (98-107) H 03/30/19 06:05 Carbon Dioxide 27 mmol/L (21-32) 03/30/19 06:05 Anion Gap 6 MMOL/L (8-16) L 03/30/19 06:05 BUN 52.7 mg/dL (7-18) H 03/30/19 06:05 Creatinine 0.9 mg/dL (0.55-1.3) 03/30/19 06:05 Est GFR (CKD-EPI)AfAm 71.48 03/30/19 06:05 Est GFR (CKD-EPI)NonAf 61.67 03/30/19 06:05 POC Glucometer 184 UNITS (80-120) 03/30/19 16:46 Random Glucose 278 mg/dL (74-106) H 03/30/19 06:05 Lactic Acid 1.9 mmol/L (0.4-2.0) 03/29/19 22:00 Calcium 7.6 mg/dL (8.5-10.1) L 03/30/19 06:05 Phosphorus 3.0 mg/dL (2.5-4.9) 03/30/19 06:05 Magnesium 2.6 mg/dL (1.8-2.4) H 03/30/19 06:05 Total Bilirubin 0.4 mg/dL (0.2-1) 03/30/19 06:05 Direct Bilirubin 0.2 mg/dL (0.0-0.2) 03/30/19 06:05 AST 78 U/L (15-37) H 03/30/19 06:05 ALT 92 U/L (13-61) H 03/30/19 06:05 Alkaline Phosphatase 404 U/L (45-117) H 03/30/19 06:05 Troponin I 0.05 ng/ml (0.00-0.05) 03/29/19 18:20 Total Protein 5.3 g/dl (6.4-8.2) L 03/30/19 06:05 Albumin 1.4 g/dl (3.4-5.0) L 03/30/19 06:05 Albumin very low Na decreasing slowly (from 155) INR, PTT INR 1.40 (0.83-1.09) H 03/29/19 18:20 Urine Test Results Urine Color Yellow 03/29/19 18:30 Urine Appearance Clear 03/29/19 18:30 Urine pH 6.5 (5.0-8.0) 03/29/19 18:30 Ur Specific [place] 1.015 (1.010-1.035) 03/29/19 18:30 Urine Protein 2+ (NEGATIVE) H 03/29/19 18:30 Urine Glucose (UA) 3+ (NEGATIVE) H 03/29/19 18:30 Urine Ketones Negative (NEGATIVE) 03/29/19 18:30 Urine Blood 1+ (NEGATIVE) H 03/29/19 18:30 Urine Nitrite Negative (NEGATIVE) 03/29/19 18:30 Urine Bilirubin Negative (NEGATIVE) 03/29/19 18:30 Ur Leukocyte Esterase 1+ (NEGATIVE) H 03/29/19 18:30 Microbiology 03/29/19 18:20 Blood Culture - Preliminary Blood - Peripheral Venous NO GROWTH OBTAINED AFTER 24 HOURS, INCUBATION TO CONTINUE FOR 4 DAYS. 03/29/19 18: Blood Culture - Preliminary Blood - Peripheral Venous NO GROWTH OBTAINED AFTER 24 HOURS, INCUBATION TO CONTINUE FOR 4 DAYS. 03/29/19 20:05 Gram Stain - Final Wound no PMNs, no organisms Urine culture pending Imaging - Results Chest X-ray: Report Reviewed Ultrasound: Report Reviewed (duplex RLE neg for DVT) Problem List - Problems (1) Sacral decubitus ulcer Assessment/Plan: moderate to large, undermined but CLEAN-based ulcer with bone palpable in base difficult site to maintain VAC dressing immediately surrounding skin with some irritation/erosion in spots for now, would use saline-dampened Kerlix packing to contact ALL wound surfaces (including undermined areas) cover with folded ABD and secure with minimal paper tape on nonirritated skin under diaper change dressing daily and whenever soiled, as needed to keep clean pressure relief is critical to potential for healing - need to keep patient OFF midline/buttocks turn side to side to side, up on hips/shoulders q2H consider higher level pressure relief surface/mattress, especially if cannot keep her off the site pt is also malnourished, as evidence by albumin <2 and generalized edema maintain enteral feeds via PEG as possible, consider protein supplementation trend and correct lytes as needed (ensure adequate free water) given diarrhea, consider testing for C. diff antibiotics for historically MDR organisms per ID, but sacral decub is NOT likely source of any sepsis no debridement currently indicated will remain available peripherally - please call with questions Thank you for the opportunity to participate in the care of this patient. This patient is critically ill. Time spent reviewing chart, examining patient, talking with providers and/or family and documentation is 45 minutes. Code(s): L89.159 - PRESSURE ULCER OF SACRAL REGION, UNSPECIFIED STAGE Qualifiers: Pressure injury stage: stage 4 Qualified Code(s): L89.154 - Pressure ulcer of sacral region, stage 4 (2) CAD (coronary artery disease) Code(s): I25.10 - ATHSCL HEART DISEASE OF CIRCLE CORONARY ARTERY W/O ANG PCTRS Qualifiers: Coronary Disease-Associated Artery/Lesion type: [place] artery [place] vs. transplanted heart: [place] heart Associated angina: without angina Qualified Code(s): I25.10 - Atherosclerotic heart disease of [place] coronary artery without angina pectoris (3) Diabetes mellitus Code(s): E11.9 - TYPE 2 DIABETES MELLITUS WITHOUT COMPLICATIONS Qualifiers: Diabetes mellitus type: type 2 Diabetes mellitus supervisor intermediates insulin use: with supervisor intermediates use Diabetes mellitus complication status: with hyperglycemia Qualified Code(s): E11.65 - Type 2 diabetes mellitus with hyperglycemia; Z79.4 - adjunct faculty for medical terminology (current) use of insulin (4) Diastolic CHF Code(s): I50.30 - UNSPECIFIED DIASTOLIC (CONGESTIVE) HEART FAILURE Qualifiers: Heart failure chronicity: chronic Qualified Code(s): I50.32 - Chronic diastolic (congestive) heart failure (5) Hypernatremia Code(s): E87.0 - HYPEROSMOLALITY AND HYPERNATREMIA (6) S/P mitral valve repair Code(s): Z98.890 - OTHER SPECIFIED POSTPROCEDURAL STATES (7) Sick sinus syndrome Code(s): I49.5 - SICK SINUS SYNDROME (8) Ventilator dependent Assessment/Plan: via tracheostomy Code(s): Z99.11 - DEPENDENCE ON RESPIRATOR [VENTILATOR] STATUS (9) Atrial fibrillation Assessment/Plan: on Eliquis Code(s): I48.91 - UNSPECIFIED ATRIAL FIBRILLATION Qualifiers: Atrial fibrillation type: permanent Qualified Code(s): I48.21 - Permanent atrial fibrillation (10) COPD (chronic obstructive pulmonary disease) Code(s): J44.9 - CHRONIC OBSTRUCTIVE PULMONARY DISEASE, UNSPECIFIED Qualifiers: COPD type: unspecified COPD Qualified Code(s): J44.9 - Chronic obstructive pulmonary disease, unspecified (11) HTN (hypertension) Code(s): I10 - ESSENTIAL (PRIMARY) HYPERTENSION Qualifiers: Hypertension type: essential hypertension Qualified Code(s): I10 - Essential (primary) hypertension (12) Pacemaker Code(s): Z95.0 - PRESENCE OF CARDIAC PACEMAKER (13) Functional quadriplegia Code(s): R53.2 - FUNCTIONAL QUADRIPLEGIA (14) Protein-calorie malnutrition Code(s): E46 - UNSPECIFIED PROTEIN-CALORIE MALNUTRITION Qualifiers: Protein-calorie malnutrition severity: unspecified severity Qualified Code( s): E46 - Unspecified protein-calorie malnutrition (15) Hemiparesis and other late effects of cerebrovascular accident Code(s): I69.359 - HEMIPLGA FOLLOWING CEREBRAL INFARCTION AFFECTING UNSP SIDE; I69.398 - OTHER SEQUELAE OF CEREBRAL INFARCTION
[2019-03-31] MEDS ORDERED: MEROPENEM 1 GM VIAL (RESTRICTED TO ID) IVPB ONE ×3 (01:57→17:58)
[2019-03-31] MEDS ORDERED: DEXTROSE 5%-WATER 100 ML IVPB ONE ×3 (01:57→17:58)
[2019-03-31] MEDS: MEROPENEM 1 GM in DEXTROSE 5%-WATER 100 ML IVPB SCH ×3 (02:14→18:08)
[2019-03-31] MEDS: DILTIAZEM INJECTION 125 MG in DEXTROSE 5%-WATER - 100 ML IVPB SCH (02:14)
[2019-03-31] MEDS ORDERED: METOPROLOL TARTRATE 50 MG TABLET (FP) ONE ×2 (05:44→22:25)
[2019-03-31] MEDS ORDERED: METOPROLOL TARTRATE 25 MG TABLET (FP) ONE ×2 (05:45→22:25)
[2019-03-31 06:23] LABS: BASO % 0.4 % (0-2.0); EOS % 0.6 % (0-4.5); HEMATOCRIT 29.2 % (32.4-45.2); HEMOGLOBIN 9.1 GM/dL (10.7-15.3); LYMPH % 15.3 % (8-40); MEAN CELL VOLUME 83.8 fl (80-96); MEAN PLT VOLUME 10.3 fl (7.5-11.1); MONO % 5.6 % (3.8-10.2); NEUT % 78.1 % (42.8-82.8); PLATELET COUNT 180 K/MM3 (134-434); RBC 3.48 M/mm3 (3.60-5.2); RDW 19.9 % (11.6-15.6); WHITE BLOOD COUNT 9.9 K/mm3 (4.0-10.0)
[2019-03-31 06:38] LABS: ALBUMIN 1.4 g/dl (3.4-5.0); BILIRUBIN,TOTAL 0.4 mg/dL (0.2-1); BLOOD UREA NITROGEN 44.2 mg/dL (7-18); CALCIUM 8.2 mg/dL (8.5-10.1); CREATININE 0.9 mg/dL (0.55-1.3); MAGNESIUM 2.6 mg/dL (1.8-2.4); PHOSPHOROUS 3.2 mg/dL (2.5-4.9); POTASSIUM 3.8 mmol/L (3.5-5.1); TOT PROT 5.1 g/dl (6.4-8.2)
[2019-03-31] MEDS: INSULIN SLIDING SCALE (NOVOLOG) 1 VIAL SQ SCH ×4 (06:45→18:36)
[2019-03-31] MEDS: METOPROLOL TARTRATE 50 MG, METOPROLOL TARTRATE 25 MG PO SCH ×3 (06:45→22:47)
--- NOTE | 2019-03-31 07:59 | PN ---
Progress Note (short form) - Note Progress Note: Chief Complaint: Events noted, notes reviewed, overall no change in status, atrial pacing noted History of Present Illness: Seen and examined in the ICU. Events noted, notes reviewed, overall no change in status, atrial pacing noted Current Medications: Current Medications Albuterol/Ipratropium (Duoneb -) 1 amp NEB Q4H PRN PRN Reason: WHEEZING Apixaban (Eliquis -) 5 mg PEG BID [facility] Last Admin: 03/30/19 22:21 Dose: 5 mg Ascorbic Acid (Vitamin C -) 500 mg GT DAILY [facility] Last Admin: 03/30/19 11:07 Dose: 500 mg Diltiazem HCl (Cardizem -) 30 mg PO Q6H PRN PRN Reason: TACHYCARDIA Ferrous Sulfate (Feosol) 300 mg GT BID [facility] Last Admin: 03/30/19 23:00 Dose: 300 mg Fluoxetine HCl (Prozac Oral Solution -) 20 mg PO DAILY [facility] Diltiazem HCl 125 mg/ Dextrose 125 mls @ 5 mls/hr IVPB TITR [facility]; Protocol Last Titration: 03/31/19 06:45 Dose: 0 mg/hr, 0 mls/hr Meropenem 1 gm/ Dextrose 100 mls @ 200 mls/hr IVPB Q8H-IV [facility] Last Admin: 03/31/19 02:14 Dose: 200 mls/hr Levofloxacin (Levaquin 500 Mg Premixed Ivpb -) 500 mg in 100 mls @ 100 mls/hr IVPB DAILY [facility]; Protocol Last Admin: 03/30/19 11:11 Dose: 100 mls/hr Lactated Ringer's (Lactated Ringers Solution) 1,000 ml in 1,000 mls @ 100 mls/ hr IV ASDIR [facility] Last Admin: 03/30/19 17:08 Dose: 100 mls/hr Insulin Aspart (Novolog Vial Sliding Scale -) 1 vial SQ TIDAC [facility]; Protocol Last Admin: 03/31/19 06:45 Dose: 2 units Metoprolol Tartrate 50 mg/ (Metoprolol Tartrate 25 mg) 75 mg PO TID [facility] Last Admin: 03/31/19 06:45 Dose: 75 mg Pantoprazole Sodium (Protonix Packets For Oral Suspension -) 40 mg NGT DAILY [facility] Last Admin: 03/30/19 11:07 Dose: 40 mg Zinc Sulfate (Orazinc -) 220 mg GT DAILY [facility] Last Admin: 03/30/19 15:09 Dose: 220 mg Review of Systems Unable to obtain - Objective Vital Signs: Last Vital Signs Temp Pulse Resp BP Pulse Ox 97.8 F 60 17 104/67 97 03/31/19 06:00 03/31/19 06:45 03/31/19 08:32 03/31/19 06:45 03/30/19 21:00 Intake & Output 03/28/19 03/29/19 03/30/19 03/31/19 23:59 23:59 23:59 23:59 Intake Total 122 2268 1283.2 Output Total 500 550 150 Balance -378 1718 1133.2 Weight 142 lb 4.8 oz 142 lb 3 oz Neck: Supple negative JVD no bruit Cardiovascular: S1 S2 Regular Rate Rhythm Respiratory: Diminished Breath Sounds Bilaterally Gastrointestinal: Soft Benign Normal Bowel Sounds Ext: Negative Edema Bilaterally Labs: CBC, BMP 03/31/19 05:30 03/31/19 05:30 Hepatic Panel Total Bilirubin 0.4 mg/dL (0.2-1) 03/31/19 05:30 Direct Bilirubin 0.2 mg/dL (0.0-0.2) 03/30/19 06:05 AST 57 U/L (15-37) H 03/31/19 05:30 ALT 75 U/L (13-61) H 03/31/19 05:30 Alkaline Phosphatase 373 U/L (45-117) H 03/31/19 05:30 Albumin 1.4 g/dl (3.4-5.0) L 03/31/19 05:30 INR, PTT INR 1.40 (0.83-1.09) H 03/29/19 18:20 Assessment/Plan: ASSESSMENT: 1. Sepsis syndrome/septic shock secondary to urosepsis 2. CAD angina pectoris 3. Diastolic LV dysfunction with clinical class 0 NYHA classification LV failure 4. Paroxysmal atrial fibrillation with RVR currently in sinus rhythm atrial pacing [id number] score of 9 on DOAC's/Eliquis 5. Sick sinus syndrome post PPM 6. post mitral valve repair 7. History of CVA 8. Chronic respiratory failure on mechanical ventilation post tracheostomy 9. HTN 10. Hypercholesterolemia 11. COPD 12. Hypernatremia, persistent 13. Anemia history of gastrointestinal bleed 14. Sacral decubitus ulcer PLAN: 1. Antibiotics as per the primary team 2. Continue Lopressor and up-titrate dosage as needed hemodynamics permitting 3. D/C Cardizem 4. Add Amiodarone unless contraindicated, 400 mg twice daily for 1 week then reduce to m200 mg daily 5. Add ACEI or ARBS unless contraindicated 6. Continue Eliquis 7. Resume Lipitor once LFT's normalize 8. Correction of Hyponatremia, free water supplementation Karla Hernandes MD
--- NOTE | 2019-03-31 08:47 | PN ---
Physical Exam: SUBJECTIVE: Patient seen and examined. No acute event overnight. Home meds were restarted. No fever or pain OBJECTIVE: Vital Signs Period Temp Pulse Resp BP Sys/[place] Pulse Ox Last 24 Hr 97.8 F-99.2 F 60-148 14-25 93-127/58-93 97 GENERAL: The patient is awake, in no apparent distress. HEAD: Tracheostomy in place. EYES: PERRLA LUNGS: Breath sounds equal, crackles present. HEART:RRR no murmur, rub or gallop. ABDOMEN: Soft, nontender, nondistended, normoactive bowel sounds, no guarding, no rebound, no hepatosplenomegaly, no masses. EXTREMITIES: 2+ pulses, warm, well-perfused, +1 edema. SKIN: Warm, dry, normal turgor, no rashes or lesions noted Laboratory Results - last 24 hr 03/30/19 03/30/19 03/31/19 12:34 16:46 05:30 WBC 9.9 RBC 3.48 L Hgb 9.1 L Hct 29.2 L MCV 83.8 MCH 26.0 MCHC 31.0 L RDW 19.9 H Plt Count 180 MPV 10.3 Absolute Neuts (auto) 7.7 Neutrophils % 78.1 Lymphocytes % 15.3 Monocytes % 5.6 Eosinophils % 0.6 Basophils % 0.4 Nucleated RBC % 0 Sodium Potassium Chloride Carbon Dioxide Anion Gap BUN Creatinine Est GFR (CKD-EPI)AfAm Est GFR (CKD-EPI)NonAf POC Glucometer 265 184 Random Glucose Calcium Phosphorus Magnesium Total Bilirubin AST ALT Alkaline Phosphatase Total Protein Albumin 03/31/19 03/31/19 05:30 05:51 WBC RBC Hgb Hct MCV MCH MCHC RDW Plt Count MPV Absolute Neuts (auto) Neutrophils % Lymphocytes % Monocytes % Eosinophils % Basophils % Nucleated RBC % Sodium 150 H Potassium 3.8 Chloride 120 H Carbon Dioxide 25 Anion Gap 6 L BUN 44.2 H Creatinine 0.9 Est GFR (CKD-EPI)AfAm 71.48 Est GFR (CKD-EPI)NonAf 61.67 POC Glucometer 214 Random Glucose 248 H Calcium 8.2 L Phosphorus 3.2 Magnesium 2.6 H Total Bilirubin 0.4 AST 57 H ALT 75 H Alkaline Phosphatase 373 H Total Protein 5.1 L Albumin 1.4 L Active Medications Generic Name Dose Route Start Last Admin Trade Name Freq PRN Reason Stop Dose Admin Albuterol/Ipratropium 1 amp 03/29/19 22:37 Duoneb - NEB Q4H PRN WHEEZING Apixaban 5 mg 03/29/19 22:15 03/30/19 22:21 Eliquis - PEG 5 mg BID [facility] Administration Ascorbic Acid 500 mg 03/30/19 10:00 03/30/19 11:07 Vitamin C - GT 500 mg DAILY [facility] Administration Diltiazem HCl 30 mg 03/30/19 11:17 Cardizem - PO Q6H PRN TACHYCARDIA Ferrous Sulfate 300 mg 03/30/19 10:00 03/30/19 23:00 Feosol GT 300 mg BID [facility] Administration Fluoxetine HCl 20 mg 03/31/19 10:00 Prozac Oral Solution - PO DAILY [facility] Diltiazem HCl 125 mg/ Dextrose 125 mls @ 5 mls/hr 03/29/19 23:30 03/31/19 06: 45 IVPB 0 mg/hr TITR [facility] 0 mls/hr Titration Protocol 5 MG/HR Meropenem 1 gm/ Dextrose 100 mls @ 200 mls/hr 03/30/19 11:00 03/31/19 02:14 IVPB 200 mls/hr Q8H-IV [facility] Administration Levofloxacin 500 mg in 100 mls @ 100 mls/hr 03/30/19 11:00 03/30/19 11:11 Levaquin 500 Mg Premixed Ivpb - IVPB 100 mls/hr DAILY [facility] Administration Protocol Lactated Ringer's 1,000 ml in 1,000 mls @ 100 mls/hr 03/30/19 16:42 03/30/19 17:08 Lactated Ringers Solution IV 100 mls/hr ASDIR [facility] Administration Insulin Aspart 1 vial 03/30/19 07:00 03/31/19 06:45 Novolog Vial Sliding Scale - SQ 2 units TIDAC [facility] Administration Protocol Metoprolol Tartrate 50 mg/ 75 mg 03/30/19 06:00 03/31/19 06:45 Metoprolol Tartrate 25 mg PO 75 mg TID [facility] Administration Pantoprazole Sodium 40 mg 03/30/19 10:00 03/30/19 11:07 Protonix Packets For Oral Suspension - NGT 40 mg DAILY [facility] Administration Zinc Sulfate 220 mg 03/30/19 10:00 03/30/19 15:09 Orazinc - GT 220 mg DAILY [facility] Administration ASSESSMENT/PLAN: 79 F PMH CAD, Afib (eliquis), CVA (RUE/LE paralysis, non verbal), sick sinus syndrome s/p PPM, chronic respiratory failure s/p trach, COPD, HTN, DM, GIB, chronic sacral ulcer presenting with sepsis likely secondary to chronic sacral ulcer. Neuro -pt makes eye contact however unable to assess mentation fully. -Continue Prozac 20 mg daily home med Cardiovascular - currently rate controlled in the 60-70s -Afib c/w eliquis -Lopressor 75mg TID; Cardizem 30mg Q6H PRN - off Cardizem drip -echo 04/2108: normal EF, severe TR, mild MR Pulm -On trach to vent: Vt 350, RR 12, PEEP 5 Fio2 50% -Albuterol nebs PRN -Maintain O2 > 90% GI -Stable - LFTS elevated but trending down - business proposal rep ordered for enteral tube feed recommendation - hypoalbuminemia; will require additional protein supplementation in feeds -Continue to monitor. ID -Septic shock initially currentl Hemodynamically stable -likely from UTI - per Surgical wound eval, sacral ulcer unlikely source -Has history of Klebsiella ESBL, and stenotrophomaonas maltophillia -Was given vancomycin, meropenem, and levaquin -Continue Meropenem and levaquin day 2 Heme -normocytic anemia -monitor H&H, stable Endo -ISS -BGMS ACHS F: LR@ 100 , additional 300cc Q8h via PEG tube E: monitor lytes N: Tube feeds once recs in place DVT: Eliquis 5 mg Dispo: Continue ICU monitoring. Visit type - Emergency Visit Emergency Visit: Yes ED Registration Date: 03/29/19 Care time: The patient presented to the Emergency Department on the above date and was hospitalized for further evaluation of their emergent condition. - New Patient This patient is new to me today: No - Critical Care Critical Care patient: Yes Total Critical Care Time (in minutes): 35 Critical Care Statement: The care of this patient involved high complexity decision making to prevent further life threatening deterioration of the patient 's condition and/or to evaluate & treat vital organ system(s) failure or risk of failure. ATTENDING PHYSICIAN STATEMENT I saw and evaluated the patient. I reviewed the resident's note and discussed the case with the resident. I agree with the resident's findings and plan as documented. SUBJECTIVE: OBJECTIVE: ASSESSMENT AND PLAN:
[2019-03-31] MEDS ORDERED: DEXTROSE 5%-1/3 NS - 500 ML IV SCH (09:00)
--- NOTE | 2019-03-31 09:27 | PN ---
Progress Note, Physician - Current Medication List Current Medications: Active Medications Albuterol/Ipratropium (Duoneb -) 1 amp NEB Q4H PRN PRN Reason: WHEEZING Amiodarone HCl (Cordarone -) 400 mg PO BID [facility] Apixaban (Eliquis -) 5 mg PEG BID [facility] Last Admin: 03/30/19 22:21 Dose: 5 mg Ascorbic Acid (Vitamin C -) 500 mg GT DAILY [facility] Last Admin: 03/30/19 11:07 Dose: 500 mg Ferrous Sulfate (Feosol) 300 mg GT BID [facility] Last Admin: 03/30/19 23:00 Dose: 300 mg Fluoxetine HCl (Prozac Oral Solution -) 20 mg PO DAILY [facility] Meropenem 1 gm/ Dextrose 100 mls @ 200 mls/hr IVPB Q8H-IV [facility] Last Admin: 03/31/19 02:14 Dose: 200 mls/hr Levofloxacin (Levaquin 500 Mg Premixed Ivpb -) 500 mg in 100 mls @ 100 mls/hr IVPB DAILY [facility]; Protocol Last Admin: 03/30/19 11:11 Dose: 100 mls/hr Lactated Ringer's (Lactated Ringers Solution) 1,000 ml in 1,000 mls @ 100 mls/ hr IV ASDIR [facility] Last Admin: 03/30/19 17:08 Dose: 100 mls/hr Dextrose/Sodium Chloride (D5-1/3ns -) 500 mls @ 100 mls/hr IV ASDIR [facility] Stop: 04/01/19 08:59 Insulin Aspart (Novolog Vial Sliding Scale -) 1 vial SQ TIDAC [facility]; Protocol Last Admin: 03/31/19 06:45 Dose: 2 units Metoprolol Tartrate 50 mg/ (Metoprolol Tartrate 25 mg) 75 mg PO TID [facility] Last Admin: 03/31/19 06:45 Dose: 75 mg Pantoprazole Sodium (Protonix Packets For Oral Suspension -) 40 mg NGT DAILY [facility] Last Admin: 03/30/19 11:07 Dose: 40 mg Zinc Sulfate (Orazinc -) 220 mg GT DAILY [facility] Last Admin: 03/30/19 15:09 Dose: 220 mg - Objective Vital Signs: Vital Signs Temperature 97.8 F 03/31/19 06:00 Pulse Rate 66 03/31/19 08:00 Respiratory Rate 17 03/31/19 08:32 Blood Pressure 100/57 L 03/31/19 08:00 O2 Sat by Pulse Oximetry (%) 97 03/30/19 21:00 Cardiovascular: Yes: S1, S2 Respiratory: Yes: Mechanically Ventilated Gastrointestinal: Yes: Normal Bowel Sounds, Soft Labs: CBC, BMP 03/31/19 05:30 03/31/19 05:30 INR, PTT INR 1.40 (0.83-1.09) H 03/29/19 18:20 Problem List - Problems (1) Sepsis Assessment/Plan: iv abx per id ivf id consult Code(s): A41.9 - SEPSIS, UNSPECIFIED ORGANISM Qualifiers: Sepsis type: sepsis due to unspecified organism Sepsis acute organ dysfunction status: without acute organ dysfunction Qualified Code(s): A41.9 - Sepsis, unspecified organism (2) Atrial fibrillation with RVR Assessment/Plan: cardio 2. Continue Lopressor and up-titrate dosage as needed hemodynamics permitting 3. D/C Cardizem 4. Add Amiodarone unless contraindicated, 400 mg twice daily for 1 week then reduce to m200 mg daily 5. Add ACEI or ARBS unless contraindicated 6. Continue Eliquis 7. Resume Lipitor once LFT's normalize Code(s): I48.91 - UNSPECIFIED ATRIAL FIBRILLATION (3) CHF (congestive heart failure) Assessment/Plan: monitor Code(s): I50.9 - HEART FAILURE, UNSPECIFIED (4) CKD (chronic kidney disease) Assessment/Plan: w hypernatremia ivf renal Continue LR as per ICU for sepsis management. Can titrate off when able to as pt does have 3rd spacing Start free water via GT 300cc Q8h for now. Code(s): N18.9 - CHRONIC KIDNEY DISEASE, UNSPECIFIED Qualifiers: Chronic kidney disease stage: stage 2 (mild) Qualified Code(s): N18.2 - Chronic kidney disease, stage 2 (mild) (5) Diabetes mellitus Code(s): E11.9 - TYPE 2 DIABETES MELLITUS WITHOUT COMPLICATIONS Qualifiers: Diabetes mellitus type: type 2 Diabetes mellitus terminal gauger insulin use: with terminal gauger use Diabetes mellitus complication status: with hyperglycemia Qualified Code(s): E11.65 - Type 2 diabetes mellitus with hyperglycemia; Z79.4 - FPC (current) use of insulin (6) UTI (urinary tract infection) Code(s): N39.0 - URINARY TRACT INFECTION, SITE NOT SPECIFIED Qualifiers: Urinary tract infection type: catheter-associated UTI Indwelling urinary catheter type: unspecified Encounter type: initial encounter Qualified Code( s): T83.511A - Infection and inflammatory reaction due to indwelling urethral catheter, initial encounter; N39.0 - Urinary tract infection, site not specified
[2019-03-31] MEDS ORDERED: FLUoxetine HCL 20 MG/5 ML 120 BOTTLE PO SCH (10:00)
[2019-03-31] MEDS ORDERED: AMIODARONE HCL 200 MG TABLET PO SCH (10:00)
[2019-03-31] MEDS ORDERED: PT OWN MED DRAWER 7, Y5N ONE ×2 (10:12→10:31)
[2019-03-31] MEDS: PANTOPRAZOLE SOD 40 MG SUSPENSION PACKET NGT SCH (10:16)
[2019-03-31] MEDS: ASCORBIC ACID 500 MG TABLET (FP) GT SCH (10:16)
[2019-03-31] MEDS: APIXABAN 5 MG TABLET PEG SCH ×2 (10:17→22:47)
[2019-03-31] MEDS: FERROUS SO4 300 MG/5 ML ORAL SOLN UNIT DOSE CUPS GT SCH ×2 (10:34→22:48)
[2019-03-31] MEDS: SODIUM CHLORIDE 0.45% 1,000 ML IV SCH ×2 (10:34→18:07)
[2019-03-31] MEDS: ZINC SULFATE 220 MG CAPSULE (FP) GT SCH (10:34)
--- NOTE | 2019-03-31 11:22 | PN ---
Teaching Attending Note Name of Resident: Leticia Reddy ATTENDING PHYSICIAN STATEMENT I saw and evaluated the patient. I reviewed the resident's note and discussed the case with the resident. I agree with the resident's findings and plan as documented. SUBJECTIVE: Patient seen and examined in the ICU. Awake and responsive on AC Mode of vent, via Tracheostomy. Rapid AFib rates better. Hemodynamics have remained stable. Intake & Output 03/28/19 03/29/19 03/30/19 03/31/19 23:59 23:59 23:59 23:59 Intake Total 122 2268 1283.2 Output Total 500 550 150 Balance -378 1718 1133.2 Weight 142 lb 4.8 oz 142 lb 3 oz Last Vital Signs Temp Pulse Resp BP Pulse Ox 97.9 F 61 17 112/75 97 03/31/19 10:00 03/31/19 10:00 03/31/19 10:00 03/31/19 10:00 03/30/19 21:00 Active Medications Albuterol/Ipratropium (Duoneb -) 1 amp NEB Q4H PRN PRN Reason: WHEEZING Amiodarone HCl (Cordarone -) 400 mg PO BID [facility] Last Admin: 03/31/19 10:17 Dose: 400 mg Apixaban (Eliquis -) 5 mg PEG BID [facility] Last Admin: 03/31/19 10:17 Dose: 5 mg Ascorbic Acid (Vitamin C -) 500 mg GT DAILY [facility] Last Admin: 03/31/19 10:16 Dose: 500 mg Ferrous Sulfate (Feosol) 300 mg GT BID [facility] Last Admin: 03/31/19 10:34 Dose: 300 mg Fluoxetine HCl (Prozac Oral Solution -) 20 mg PO DAILY [facility] Last Admin: 03/31/19 10:34 Dose: 20 mg Meropenem 1 gm/ Dextrose 100 mls @ 200 mls/hr IVPB Q8H-IV [facility] Last Admin: 03/31/19 10:16 Dose: 200 mls/hr Levofloxacin (Levaquin 500 Mg Premixed Ivpb -) 500 mg in 100 mls @ 100 mls/hr IVPB DAILY [facility]; Protocol Last Admin: 03/31/19 10:16 Dose: 100 mls/hr Sodium Chloride (1/2 Normal Saline) 1,000 mls @ 100 mls/hr IV ASDIR [facility] Last Admin: 03/31/19 10:34 Dose: 100 mls/hr Insulin Aspart (Novolog Vial Sliding Scale -) 1 vial SQ TIDAC [facility]; Protocol Last Admin: 03/31/19 11:13 Dose: 3 units Metoprolol Tartrate 50 mg/ (Metoprolol Tartrate 25 mg) 75 mg PO TID [facility] Last Admin: 03/31/19 06:45 Dose: 75 mg Pantoprazole Sodium (Protonix Packets For Oral Suspension -) 40 mg NGT DAILY [facility] Last Admin: 03/31/19 10:16 Dose: 40 mg Zinc Sulfate (Orazinc -) 220 mg GT DAILY [facility] Last Admin: 03/31/19 10:34 Dose: 220 mg EXAM: neuro: awake, responsive HEENT: anicteric, no JVD, Trach intact lungs: Vented, few scattered rhonchi, diminished at the bases heart: Rapid AFib abd: soft, non-tender ext: anasarca skin: warm, dry Laboratory Results - last 24 hr 03/30/19 03/30/19 03/31/19 12:34 16:46 05:30 WBC 9.9 RBC 3.48 L Hgb 9.1 L Hct 29.2 L MCV 83.8 MCH 26.0 MCHC 31.0 L RDW 19.9 H Plt Count 180 MPV 10.3 Absolute Neuts (auto) 7.7 Neutrophils % 78.1 Lymphocytes % 15.3 Monocytes % 5.6 Eosinophils % 0.6 Basophils % 0.4 Nucleated RBC % 0 Sodium Potassium Chloride Carbon Dioxide Anion Gap BUN Creatinine Est GFR (CKD-EPI)AfAm Est GFR (CKD-EPI)NonAf POC Glucometer 265 184 Random Glucose Calcium Phosphorus Magnesium Total Bilirubin AST ALT Alkaline Phosphatase Total Protein Albumin 03/31/19 03/31/19 03/31/19 05:30 05:51 11:09 WBC RBC Hgb Hct MCV MCH MCHC RDW Plt Count MPV Absolute Neuts (auto) Neutrophils % Lymphocytes % Monocytes % Eosinophils % Basophils % Nucleated RBC % Sodium 150 H Potassium 3.8 Chloride 120 H Carbon Dioxide 25 Anion Gap 6 L BUN 44.2 H Creatinine 0.9 Est GFR (CKD-EPI)AfAm 71.48 Est GFR (CKD-EPI)NonAf 61.67 POC Glucometer 214 287 Random Glucose 248 H Calcium 8.2 L Phosphorus 3.2 Magnesium 2.6 H Total Bilirubin 0.4 AST 57 H ALT 75 H Alkaline Phosphatase 373 H Total Protein 5.1 L Albumin 1.4 L ASSESSMENT: Sepsis: sources is UTI or sacral wound Lactic acidosis CONOR Hypernatremia IDDM COPD Chronic vent dependant respiratory failure CAD HTN AFib Functional quadriplegia PLAN: -IVF -AbX coverage per ID -Continue mechanical ventilation -Glycemic control -Continue Eliquis -Titrate rate control meds -GI PPx -Vent floor Dr Stover
--- NOTE | 2019-03-31 12:00 | PN ---
Progress Note (short form) - Note Progress Note: Renal follow up for hypernatremia Seen and examined at the bedside awake on vent no overnight events noted no fevers MAP BP has been > 70 on IVF Vital Signs Temperature 97.9 F 03/31/19 10:00 Pulse Rate 61 03/31/19 10:00 Respiratory Rate 17 03/31/19 10:00 Blood Pressure 112/75 03/31/19 10:00 O2 Sat by Pulse Oximetry (%) 97 03/30/19 21:00 Intake & Output 03/28/19 03/29/19 03/30/19 03/31/19 23:59 23:59 23:59 23:59 Intake Total 122 2268 1283.2 Output Total 500 550 150 Balance -378 1718 1133.2 Weight 64.546 kg 64.495 kg NAD on vent via trach neck supple irregular, no M/R Dec BS, no rales or wheeze soft NT/ND + upper extremity edema trace LE edema CBC, BMP 03/31/19 05:30 03/31/19 05:30 Current Medications Albuterol/Ipratropium (Duoneb -) 1 amp NEB Q4H PRN PRN Reason: WHEEZING Amiodarone HCl (Cordarone -) 400 mg PO BID [facility] Last Admin: 03/31/19 10:17 Dose: 400 mg Apixaban (Eliquis -) 5 mg PEG BID [facility] Last Admin: 03/31/19 10:17 Dose: 5 mg Ascorbic Acid (Vitamin C -) 500 mg GT DAILY [facility] Last Admin: 03/31/19 10:16 Dose: 500 mg Ferrous Sulfate (Feosol) 300 mg GT BID [facility] Last Admin: 03/31/19 10:34 Dose: 300 mg Fluoxetine HCl (Prozac Oral Solution -) 20 mg PO DAILY [facility] Last Admin: 03/31/19 10:34 Dose: 20 mg Meropenem 1 gm/ Dextrose 100 mls @ 200 mls/hr IVPB Q8H-IV [facility] Last Admin: 03/31/19 10:16 Dose: 200 mls/hr Levofloxacin (Levaquin 500 Mg Premixed Ivpb -) 500 mg in 100 mls @ 100 mls/hr IVPB DAILY [facility]; Protocol Last Admin: 03/31/19 10:16 Dose: 100 mls/hr Sodium Chloride (1/2 Normal Saline) 1,000 mls @ 100 mls/hr IV ASDIR [facility] Last Admin: 03/31/19 10:34 Dose: 100 mls/hr Insulin Aspart (Novolog Vial Sliding Scale -) 1 vial SQ TIDAC [facility]; Protocol Last Admin: 03/31/19 11:13 Dose: 3 units Metoprolol Tartrate 50 mg/ (Metoprolol Tartrate 25 mg) 75 mg PO TID [facility] Last Admin: 03/31/19 06:45 Dose: 75 mg Pantoprazole Sodium (Protonix Packets For Oral Suspension -) 40 mg NGT DAILY [facility] Last Admin: 03/31/19 10:16 Dose: 40 mg Zinc Sulfate (Orazinc -) 220 mg GT DAILY [facility] Last Admin: 03/31/19 10:34 Dose: 220 mg 79 year old woman with history of chronic respiratory failure on vent via trach , CVA, COPD, IDDM, CAD, Afib, sacural ulcers who presented with fever and lethargy and admitted for suspected sepsis with Na of 155. 1. Hypernatremia (water deficit is 2.7L) 2. Sepsis r/o urinary source 3. Chronic Respiratory failure 4. Chronic anemia Serum na slowly improving on /2 NS as standing IVF as per ICU Continue free water via GT 300cc Q8h Continue empiric antibiotics per ID pending cultures Vent support as per ICU trend H/H, transfusion protocol as per ICU Thank you
[2019-03-31 12:33] VITALS: BMI 25.9
[2019-03-31] MEDS ORDERED: ALBUTEROL SO4 2.5/IPRATROPIUM 0.5 INH SOL 3 ML VIAL.NEB. NEB PRN (17:43)
[2019-03-31] MEDS: AMIODARONE HCL 200 MG TABLET PO SCH (22:48)
[2019-03-31] MEDS: FAMOTIDINE 40 MG/5 ML ORAL SUSPENSION NGT SCH (22:48)
[2019-04-01] MEDS ORDERED: DEXTROSE 5%-WATER 100 ML IVPB ONE ×3 (01:24→17:34)
[2019-04-01] MEDS ORDERED: MEROPENEM 1 GM VIAL (RESTRICTED TO ID) IVPB ONE ×3 (01:24→17:33)
[2019-04-01] MEDS: MEROPENEM 1 GM in DEXTROSE 5%-WATER 100 ML IVPB SCH ×3 (01:39→18:16)
[2019-04-01] MEDS: SODIUM CHLORIDE 0.45% 1,000 ML IV SCH ×2 (05:35→11:49)
[2019-04-01] MEDS ORDERED: METOPROLOL TARTRATE 25 MG TABLET (FP) ONE ×2 (06:29→22:51)
[2019-04-01] MEDS ORDERED: METOPROLOL TARTRATE 50 MG TABLET (FP) ONE ×2 (06:29→22:51)
[2019-04-01] MEDS: INSULIN SLIDING SCALE (NOVOLOG) 1 VIAL SQ SCH ×3 (06:30→16:58)
[2019-04-01] MEDS: METOPROLOL TARTRATE 50 MG, METOPROLOL TARTRATE 25 MG PO SCH (06:31)
[2019-04-01 08:48] LABS: BASO % 0.4 % (0-2.0); EOS % 5.1 % (0-4.5); HEMATOCRIT 27.6 % (32.4-45.2); HEMOGLOBIN 8.5 GM/dL (10.7-15.3); LYMPH % 10.3 % (8-40); MCH 25.6 pg (25.7-33.7); MCHC 30.8 g/dl (32.0-36.0); MEAN PLT VOLUME 10.3 fl (7.5-11.1); MONO % 6.1 % (3.8-10.2); NEUT % 78.1 % (42.8-82.8); PLATELET COUNT 183 K/MM3 (134-434); RBC 3.32 M/mm3 (3.60-5.2); RDW 20.3 % (11.6-15.6); WHITE BLOOD COUNT 10.1 K/mm3 (4.0-10.0)
[2019-04-01 09:17] LABS: ALBUMIN 1.4 g/dl (3.4-5.0); BILIRUBIN,TOTAL 0.5 mg/dL (0.2-1); BLOOD UREA NITROGEN 40.7 mg/dL (7-18); CALCIUM 8.2 mg/dL (8.5-10.1); CREATININE 0.9 mg/dL (0.55-1.3); MAGNESIUM 2.5 mg/dL (1.8-2.4); POTASSIUM 3.6 mmol/L (3.5-5.1); TOT PROT 5.2 g/dl (6.4-8.2)
[2019-04-01] MEDS ORDERED: FLUoxetine HCL 20 MG/5 ML 120 BOTTLE PO SCH (10:00)
[2019-04-01] MEDS ORDERED: ACETAMINOPHEN 160 MG/5 ML *Children Solution PO PRN (11:05)
--- NOTE | 2019-04-01 11:06 | PN ---
Progress Note, Physician Chief Complaint: Sepsis Lactic acidosis [place] Hypernatremia IDDM COPD Chronic vent dependant respiratory failure CAD HTN AFib Functional quadriplegia - Current Medication List Current Medications: Active Medications Albuterol/Ipratropium (Duoneb -) 1 amp NEB Q4H PRN PRN Reason: WHEEZING Amiodarone HCl (Cordarone -) 400 mg PO BID [facility] Last Admin: 03/31/19 22:48 Dose: 400 mg Apixaban (Eliquis -) 5 mg PEG BID [facility] Last Admin: 03/31/19 22:47 Dose: 5 mg Ascorbic Acid (Vitamin C -) 500 mg GT DAILY [facility] Famotidine (Pepcid) 20 mg NGT BID [facility] Last Admin: 03/31/19 22:48 Dose: 20 mg Ferrous Sulfate (Feosol) 300 mg GT BID [facility] Last Admin: 03/31/19 22:48 Dose: 300 mg Fluoxetine HCl (Prozac Oral Solution -) 20 mg PO DAILY [facility] Sodium Chloride (1/2 Normal Saline) 1,000 mls @ 100 mls/hr IV ASDIR [facility] Last Admin: 04/01/19 05:35 Dose: 100 mls/hr Levofloxacin (Levaquin 500 Mg Premixed Ivpb -) 500 mg in 100 mls @ 100 mls/hr IVPB DAILY [facility]; Protocol Meropenem 1 gm/ Dextrose 100 mls @ 200 mls/hr IVPB Q8H-IV [facility] Last Admin: 04/01/19 01:39 Dose: 200 mls/hr Insulin Aspart (Novolog Vial Sliding Scale -) 1 vial SQ TIDAC [facility]; Protocol Last Admin: 04/01/19 06:30 Dose: 1 units Metoprolol Tartrate 50 mg/ (Metoprolol Tartrate 25 mg) 75 mg PO TID [facility] Last Admin: 04/01/19 06:31 Dose: 75 mg Zinc Sulfate (Orazinc -) 220 mg GT DAILY [facility] - Objective Vital Signs: Vital Signs Temperature 98.8 F 04/01/19 08:00 Pulse Rate 66 04/01/19 08:00 Respiratory Rate 18 04/01/19 08:53 Blood Pressure 102/52 L 04/01/19 08:00 O2 Sat by Pulse Oximetry (%) 98 03/31/19 22:10 Constitutional: Yes: Well Nourished, No Distress, Calm Cardiovascular: Yes: Regular Rate and Rhythm Respiratory: Yes: Regular, Mechanically Ventilated, Rhonchi (diffuse) Gastrointestinal: Yes: Normal Bowel Sounds Genitourinary: Yes: Incontinence Musculoskeletal: Yes: WNL Extremities: Yes: WNL Edema: No Peripheral Pulses WNL: Yes Integumentary: Yes: Pressure Ulcer (sacrum) Wound/Incision: Yes: Dressing Dry and Intact (Sacral stage IV pressure ulcer) Neurological: Yes: Pre-Existing Deficit Labs: CBC, BMP 04/01/19 08:00 04/01/19 08:00 INR, PTT INR 1.40 (0.83-1.09) H 03/29/19 18:20 Problem List - Problems (1) Functional quadriplegia Problems reviewed: Yes Code(s): R53.2 - FUNCTIONAL QUADRIPLEGIA (2) Protein-calorie malnutrition Assessment/Plan: -Added prosource BID Problems reviewed: Yes Code(s): E46 - UNSPECIFIED PROTEIN-CALORIE MALNUTRITION Qualifiers: Protein-calorie malnutrition severity: unspecified severity Qualified Code( s): E46 - Unspecified protein-calorie malnutrition (3) Sepsis Assessment/Plan: -Cultures: Microbiology 03/29/19 20:05 Wound Gram Stain - Final 03/29/19 20:05 Wound Wound Culture - Preliminary Klebsiella Pneumoniae - Esbl Klebsiella Pneumoniae Group D Strep Or Entero Coccus Yeast Like Organism 03/29/19 18:20 Blood - Peripheral Venous Blood Culture - Preliminary NO GROWTH OBTAINED AFTER 48 HOURS, INCUBATION TO CONTINUE FOR 3 DAYS. 03/29/19 18:20 Blood - Peripheral Venous Blood Culture - Preliminary NO GROWTH OBTAINED AFTER 48 HOURS, INCUBATION TO CONTINUE FOR 3 DAYS. 03/30/19 06:00 Urine - Urine - Catheterized Urine Culture - Final NO GROWTH OBTAINED 03/29/19 18:30 Urine - Urine - Catheterized Urine Culture - Final Yeast Like Organism -ID consult -IV levaquin -Contact isolation -afebrile -no leukocytosis Problems reviewed: Yes Code(s): A41.9 - SEPSIS, UNSPECIFIED ORGANISM Qualifiers: Sepsis type: sepsis due to unspecified organism Sepsis acute organ dysfunction status: without acute organ dysfunction Qualified Code(s): A41.9 - Sepsis, unspecified organism (4) A-fib Assessment/Plan: -chronic -rate controlled -diltiazem discontinued -Continue metoprolol tart+ amiodarone -Seen by Cardiology -On eliquis-continue Problems reviewed: Yes Code(s): I48.91 - UNSPECIFIED ATRIAL FIBRILLATION Qualifiers: Atrial fibrillation type: longstanding persistent Qualified Code(s): I48.11 - Longstanding persistent atrial fibrillation (5) Diabetes mellitus Assessment/Plan: -BGM AC HS -Last A1c at 7.6% -On Glucerna -Add Januvia 50 mg daily Problems reviewed: Yes Code(s): E11.9 - TYPE 2 DIABETES MELLITUS WITHOUT COMPLICATIONS Qualifiers: Diabetes mellitus type: type 2 Diabetes mellitus mcfp insulin use: with mcfp use Diabetes mellitus complication status: with hyperglycemia Qualified Code(s): E11.65 - Type 2 diabetes mellitus with hyperglycemia; Z79.4 - [facility] (current) use of insulin (6) Stage 4 skin ulcer of sacral region Assessment/Plan: -Local wound care -Offloading Problems reviewed: Yes Code(s): L98.429 - NON-PRESSURE CHRONIC ULCER OF BACK WITH UNSPECIFIED SEVERITY (7) Chronic respiratory failure Assessment/Plan: -mechanical vent -bronchodilators -Pulmonary on board Problems reviewed: Yes Code(s): J96.10 - CHRONIC RESPIRATORY FAILURE, UNSP W HYPOXIA OR HYPERCAPNIA Assessment/Plan see problem list
[2019-04-01] MEDS ORDERED: AMIODARONE HCL 200 MG TABLET GT SCH (11:07)
[2019-04-01] MEDS ORDERED: ACETAMINOPHEN 160 MG/5 ML *Children Solution GT PRN (11:07)
[2019-04-01] MEDS ORDERED: ACETAMINOPHEN 650 MG/20.3 ML ORAL SOLUTION (CUPS) GT PRN (11:13)
[2019-04-01] MEDS ORDERED: ZINC SULFATE 220 MG GT SCH (11:15)
[2019-04-01] MEDS ORDERED: PT OWN MED DRAWER 7, Y5N ONE ×2 (11:17→22:53)
[2019-04-01] MEDS: ZINC SULFATE 220 MG CAPSULE (FP) GT SCH (11:36)
[2019-04-01] MEDS: FAMOTIDINE 40 MG/5 ML ORAL SUSPENSION NGT SCH ×2 (11:36→23:03)
[2019-04-01] MEDS: ASCORBIC ACID 500 MG TABLET (FP) GT SCH (11:37)
[2019-04-01] MEDS: FERROUS SO4 300 MG/5 ML ORAL SOLN UNIT DOSE CUPS GT SCH ×2 (11:37→23:00)
[2019-04-01] MEDS: APIXABAN 5 MG TABLET PEG SCH ×2 (11:37→23:00)
[2019-04-01] MEDS: AMIODARONE HCL 200 MG TABLET PO SCH (11:50)
--- NOTE | 2019-04-01 11:53 | PN ---
Progress Note (short form) - Note Progress Note: Renal follow up for hypernatremia Seen and examined at the bedside awake on vent no overnight events noted on IVF and tube feeds Vital Signs Temperature 98.8 F 04/01/19 08:00 Pulse Rate 66 04/01/19 08:00 Respiratory Rate 18 04/01/19 08:53 Blood Pressure 102/52 L 04/01/19 08:00 O2 Sat by Pulse Oximetry (%) 98 03/31/19 22:10 Intake & Output 03/29/19 03/30/19 03/31/19 04/01/19 23:59 23:59 23:59 23:59 Intake Total 122 2268 2383.2 1750 Output Total 500 550 350 Balance -378 1718 2033.2 1750 Weight 64.546 kg 64.495 kg 64.41 kg NAD on vent via trach neck supple irregular, no M/R Dec BS, no rales or wheeze soft NT/ND + upper extremity edema trace LE edema CBC, BMP 04/01/19 08:00 04/01/19 08:00 Current Medications Acetaminophen (Tylenol Oral Solution -) 650 mg GT Q4H PRN PRN Reason: FEVER Albuterol/Ipratropium (Duoneb -) 1 amp NEB Q4H PRN PRN Reason: WHEEZING Amino Acids (Prosource No Carb Liquid Pkt) 30 ml GT BID@0800,1730 [facility] Amiodarone HCl (Cordarone -) 400 mg GT BID [facility] Apixaban (Eliquis -) 5 mg PEG BID [facility] Last Admin: 04/01/19 11:37 Dose: 5 mg Ascorbic Acid (Vitamin C -) 500 mg GT DAILY [facility] Last Admin: 04/01/19 11:37 Dose: 500 mg Atorvastatin Calcium (Lipitor -) 80 mg GT HS [facility] Famotidine (Pepcid) 20 mg NGT BID [facility] Last Admin: 04/01/19 11:36 Dose: 20 mg Ferrous Sulfate (Feosol) 300 mg GT BID [facility] Last Admin: 04/01/19 11:37 Dose: 300 mg Fluoxetine HCl (Prozac Oral Solution -) 20 mg GT DAILY [facility] Levofloxacin (Levaquin 500 Mg Premixed Ivpb -) 500 mg in 100 mls @ 100 mls/hr IVPB DAILY [facility]; Protocol Last Admin: 04/01/19 11:37 Dose: 100 mls/hr Meropenem 1 gm/ Dextrose 100 mls @ 200 mls/hr IVPB Q8H-IV [facility] Last Admin: 04/01/19 11:35 Dose: 200 mls/hr Insulin Aspart (Novolog Vial Sliding Scale -) 1 vial SQ TIDAC [facility]; Protocol Last Admin: 04/01/19 11:38 Dose: 3 units Metoprolol Tartrate 50 mg/ (Metoprolol Tartrate 25 mg) 75 mg GT TID [facility] Multivitamins/Minerals (Certavite-Antioxidant Liquid) 15 ml GT DAILY [facility] Nystatin (Nystop Powder -) 1 applic TP TID [facility] Pantoprazole Sodium (Protonix Packets For Oral Suspension -) 40 mg PEG DAILY [facility] Sitagliptin Phosphate (Januvia -) 50 mg NR DAILY@0700 [facility] Zinc Sulfate (Orazinc -) 220 mg GT DAILY [facility] Last Admin: 04/01/19 11:36 Dose: 220 mg 79 year old woman with history of chronic respiratory failure on vent via trach , CVA, COPD, IDDM, CAD, Afib, sacural ulcers who presented with fever and lethargy and admitted for suspected sepsis with Na of 155. 1. Hypernatremia (water deficit is 2.7L) 2. Sepsis r/o urinary source 3. Chronic Respiratory failure 4. Chronic anemia Serum Na is now within normal limits continue free water via feeding tube 300cc Q8h can discontinue IV fluids Continue empiric antibiotics per ID pending cultures Vent support as per pulmonary Thank you
[2019-04-01] MEDS: PANTOPRAZOLE SOD 40 MG SUSPENSION PACKET PEG SCH (12:02)
--- NOTE | 2019-04-01 13:12 | PN ---
Progress Note (short form) - Note Progress Note: PULMONARY Vented, awake. No fevers recorded. Vital Signs Period Temp Pulse Resp BP Sys/[place] Pulse Ox Last 24 Hr 98 F-98.8 F 60-105 15-21 101-128/50-77 97-99 Gen: vented, awake Heart: RRR Lung: scattered rhonchi Abd: soft, nontender Ext: + edema CBC, BMP 04/01/19 08:00 04/01/19 08:00 Active Medications Acetaminophen (Tylenol Oral Solution -) 650 mg GT Q4H PRN PRN Reason: FEVER Albuterol/Ipratropium (Duoneb -) 1 amp NEB Q4H PRN PRN Reason: WHEEZING Amino Acids (Prosource No Carb Liquid Pkt) 30 ml GT BID@0800,1730 [facility] Amiodarone HCl (Cordarone -) 400 mg GT BID [facility] Apixaban (Eliquis -) 5 mg PEG BID [facility] Last Admin: 04/01/19 11:37 Dose: 5 mg Ascorbic Acid (Vitamin C -) 500 mg GT DAILY [facility] Last Admin: 04/01/19 11:37 Dose: 500 mg Atorvastatin Calcium (Lipitor -) 80 mg GT HS [facility] Famotidine (Pepcid) 20 mg NGT BID [facility] Last Admin: 04/01/19 11:36 Dose: 20 mg Ferrous Sulfate (Feosol) 300 mg GT BID [facility] Last Admin: 04/01/19 11:37 Dose: 300 mg Fluoxetine HCl (Prozac Oral Solution -) 20 mg GT DAILY [facility] Levofloxacin (Levaquin 500 Mg Premixed Ivpb -) 500 mg in 100 mls @ 100 mls/hr IVPB DAILY [facility]; Protocol Last Admin: 04/01/19 11:37 Dose: 100 mls/hr Meropenem 1 gm/ Dextrose 100 mls @ 200 mls/hr IVPB Q8H-IV [facility] Last Admin: 04/01/19 11:35 Dose: 200 mls/hr Insulin Aspart (Novolog Vial Sliding Scale -) 1 vial SQ TIDAC [facility]; Protocol Last Admin: 04/01/19 11:38 Dose: 3 units Metoprolol Tartrate 50 mg/ (Metoprolol Tartrate 25 mg) 75 mg GT TID [facility] Multivitamins/Minerals (Certavite-Antioxidant Liquid) 15 ml GT DAILY [facility] Nystatin (Nystop Powder -) 1 applic TP TID [facility] Pantoprazole Sodium (Protonix Packets For Oral Suspension -) 40 mg PEG DAILY [facility] Last Admin: 04/01/19 12:02 Dose: 40 mg Sitagliptin Phosphate (Januvia -) 50 mg NR DAILY@0700 [facility] Zinc Sulfate (Orazinc -) 220 mg GT DAILY [facility] Last Admin: 04/01/19 11:36 Dose: 220 mg A/P Chronic Respiratory Failure UTI Sacral Decubitus Ulcers Sepsis Lactic Acidosis Elevated LFTs Atrial Fibrillation s/p PPM LV Diastolic Dysfunction CAD h/o MVR COPD Anemia DM h/o CVA - continue antibiotics - rate control - continue anticoagulation - monitor LFTs - enteral feeds - continue assist control - poor candidate for weaning - DVT/GI prophylaxis
--- NOTE | 2019-04-01 13:57 | PN ---
Progress Note, Physician History of Present Illness: Awake and responsive on AC Mode of vent, via Tracheostomy. Afebrile. - Current Medication List Current Medications: Active Medications Acetaminophen (Tylenol Oral Solution -) 650 mg GT Q4H PRN PRN Reason: FEVER Albuterol/Ipratropium (Duoneb -) 1 amp NEB Q4H PRN PRN Reason: WHEEZING Amino Acids (Prosource No Carb Liquid Pkt) 30 ml GT BID@0800,1730 [facility] Amiodarone HCl (Cordarone -) 400 mg GT BID [facility] Apixaban (Eliquis -) 5 mg PEG BID [facility] Last Admin: 04/01/19 11:37 Dose: 5 mg Ascorbic Acid (Vitamin C -) 500 mg GT DAILY [facility] Last Admin: 04/01/19 11:37 Dose: 500 mg Atorvastatin Calcium (Lipitor -) 80 mg GT HS [facility] Famotidine (Pepcid) 20 mg NGT BID [facility] Last Admin: 04/01/19 11:36 Dose: 20 mg Ferrous Sulfate (Feosol) 300 mg GT BID [facility] Last Admin: 04/01/19 11:37 Dose: 300 mg Fluoxetine HCl (Prozac Oral Solution -) 20 mg GT DAILY [facility] Levofloxacin (Levaquin 500 Mg Premixed Ivpb -) 500 mg in 100 mls @ 100 mls/hr IVPB DAILY [facility]; Protocol Last Admin: 04/01/19 11:37 Dose: 100 mls/hr Meropenem 1 gm/ Dextrose 100 mls @ 200 mls/hr IVPB Q8H-IV [facility] Last Admin: 04/01/19 11:35 Dose: 200 mls/hr Insulin Aspart (Novolog Vial Sliding Scale -) 1 vial SQ TIDAC [facility]; Protocol Last Admin: 04/01/19 11:38 Dose: 3 units Metoprolol Tartrate 50 mg/ (Metoprolol Tartrate 25 mg) 75 mg GT TID [facility] Multivitamins/Minerals (Certavite-Antioxidant Liquid) 15 ml GT DAILY [facility] Nystatin (Nystop Powder -) 1 applic TP TID [facility] Pantoprazole Sodium (Protonix Packets For Oral Suspension -) 40 mg PEG DAILY [facility] Last Admin: 04/01/19 12:02 Dose: 40 mg Sitagliptin Phosphate (Januvia -) 50 mg NR DAILY@0700 [facility] Zinc Sulfate (Orazinc -) 220 mg GT DAILY [facility] Last Admin: 04/01/19 11:36 Dose: 220 mg - Objective Vital Signs: Vital Signs Temperature 98.8 F 04/01/19 08:00 Pulse Rate 66 04/01/19 08:00 Respiratory Rate 20 04/01/19 12:11 Blood Pressure 102/52 L 04/01/19 08:00 O2 Sat by Pulse Oximetry (%) 98 03/31/19 22:10 Constitutional: Yes: No Distress, Calm Neck: Yes: Other (Tracheostomy) Cardiovascular: Yes: Pulse Irregular Respiratory: Yes: Mechanically Ventilated, Rhonchi Gastrointestinal: Yes: Normal Bowel Sounds, Soft, Other (PEG in situ) Edema: Yes Labs: CBC, BMP 04/01/19 08:00 04/01/19 08:00 INR, PTT INR 1.40 (0.83-1.09) H 03/29/19 18:20 Problem List - Problems (1) Sepsis Code(s): A41.9 - SEPSIS, UNSPECIFIED ORGANISM Qualifiers: Sepsis type: sepsis due to unspecified organism Sepsis acute organ dysfunction status: without acute organ dysfunction Qualified Code(s): A41.9 - Sepsis, unspecified organism (2) A-fib Code(s): I48.91 - UNSPECIFIED ATRIAL FIBRILLATION Qualifiers: Atrial fibrillation type: longstanding persistent Qualified Code(s): I48.11 - Longstanding persistent atrial fibrillation (3) Atrial fibrillation with RVR Code(s): I48.91 - UNSPECIFIED ATRIAL FIBRILLATION (4) CAD (coronary artery disease) Code(s): I25.10 - ATHSCL HEART DISEASE OF [place] CORONARY ARTERY W/O ANG PCTRS Qualifiers: Coronary Disease-Associated Artery/Lesion type: [place] artery [place] vs. 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: with equipment operator intermodal yard use Diabetes mellitus complication status: with hyperglycemia Qualified Code(s): E11.65 - Type 2 diabetes mellitus with hyperglycemia; Z79.4 - [facility] (current) use of insulin (6) Diastolic dysfunction Code(s): I51.89 - OTHER ILL-DEFINED HEART DISEASES (7) Hypernatremia Code(s): E87.0 - HYPEROSMOLALITY AND HYPERNATREMIA (8) S/P mitral valve repair Code(s): Z98.890 - OTHER SPECIFIED POSTPROCEDURAL STATES (9) Sick sinus syndrome Code(s): I49.5 - SICK SINUS SYNDROME (10) Stage 4 skin ulcer of sacral region Code(s): L98.429 - NON-PRESSURE CHRONIC ULCER OF BACK WITH UNSPECIFIED SEVERITY (11) Ventilator dependent Code(s): Z99.11 - DEPENDENCE ON RESPIRATOR [VENTILATOR] STATUS (12) Diabetes mellitus Code(s): E11.9 - TYPE 2 DIABETES MELLITUS WITHOUT COMPLICATIONS Qualifiers: Diabetes mellitus type: type 2 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 insulin use: without alf use Diabetes mellitus complication status: without complication Qualified Code(s): E11.9 - Type 2 diabetes mellitus without complications (13) H/O mitral valve replacement Code(s): Z95.2 - PRESENCE OF PROSTHETIC HEART VALVE (14) HTN (hypertension) Code(s): I10 - ESSENTIAL (PRIMARY) HYPERTENSION Qualifiers: Hypertension type: essential hypertension Qualified Code(s): I10 - Essential (primary) hypertension (15) Hyperlipidemia Code(s): E78.5 - HYPERLIPIDEMIA, UNSPECIFIED Qualifiers: Hyperlipidemia type: pure hypercholesterolemia Qualified Code(s): E78.00 - Pure hypercholesterolemia, unspecified; E78.0 - Pure hypercholesterolemia Assessment/Plan 02/18/2019 EGD revealing mild patchy antral erythema otherwise unremarkable. No obvious ulcers or angioectasias seen 04/30/2018 Echo: Normal LV size and fxn, severe TR RVSP 50-60 mmHg, mild MR EGD and colonoscopy in 07/2017 revealing gastritis, cecal AVM and four tubular adenomas 12/17/2016 reveal: 03/2009 acute systolic CHF and SD, R&LHc 90% distal OM1, 60% D1, preserved LV fxn, elevated LVEDP [place] severe posterior leaflet prolapse with severe MR->MV annuloplasty repair, afib, sinus arrest->PPM, CAD left alone. [facility] Echo: 06/28/16 normal biventricular fxn, COSMO, mod TR, MV ring Nuc stress 09/13/2016 Anterolateral ischemia/infarct SDS 3 EF 82%, abnl ecg changes 1. Sepsis/septic shock due to source with UTI (recurrence) 2. Diastolic dysfunction 3. Respiratory failure (chronic) on mechanical ventilation s/p tracheostomy and PEG 4. CAD, angina pectoris 5. Permanent AF with RVR [id number] score of 9 on DOAC 6. Sick sinus syndrome s/p PPM 7. Post mitral valve repair 8. History of HTN 9. Hypercholesterolemia 10. COPD 11. Hypernatremia 12. Anemia h/o GI Bleed 13. History of CVA 14. Sacral decubitus ulcer 15. Abnl LFTs downtrending PLAN: 1. Resumed empiric MEROPENEM/ LEVAQUIN antibiotic coverage per C&S 2. Metoprolol 75 tid via PEG and decrease amio 200 bid for added rate control as BP tolerates 3. Eliquis 5 mg BID, Lipitor 80 qd resumed following elevated LFTs resolution 4. Continue vent support O2 to keep SpO2 >90%, BD as needed 5. Enteral feeds 6. DVT/GI prophylaxis 7. Free H20 repletion
[2019-04-01] MEDS ORDERED: METOPROLOL TARTRATE 25 MG TABLET (FP) PO SCH (14:00)
[2019-04-01] MEDS: NYSTATIN POWDER 100,000 UNITS/GM - 15 GM TOPICAL POWDER TP SCH ×2 (14:04→23:03)
[2019-04-01] MEDS: MULTIVIT-MINERALS ORAL LIQUID GT SCH (14:04)
[2019-04-01] MEDS: METOPROLOL TARTRATE 50 MG, METOPROLOL TARTRATE 25 MG GT SCH (14:21)
[2019-04-01] MEDS ORDERED: AMINO ACIDS/PROTEIN HYDROLYS 30 ML LIQUID.PKT PO SCH (17:30)
[2019-04-01] MEDS: AMINO ACIDS/PROTEIN HYDROLYS 30 ML LIQUID.PKT GT SCH (17:35)
[2019-04-01] MEDS ORDERED: ATORVASTATIN CA 80 MG TABLET (FP) PO SCH (22:00)
[2019-04-01] MEDS: ATORVASTATIN CA 80 MG TABLET (FP) GT SCH (23:00)
[2019-04-02] MEDS: METOPROLOL TARTRATE 50 MG, METOPROLOL TARTRATE 25 MG GT SCH ×4 (00:25→23:05)
[2019-04-02] MEDS ORDERED: MEROPENEM 1 GM VIAL (RESTRICTED TO ID) IVPB ONE ×2 (01:13→10:40)
[2019-04-02] MEDS ORDERED: DEXTROSE 5%-WATER 100 ML IVPB ONE ×2 (01:13→10:40)
[2019-04-02] MEDS: MEROPENEM 1 GM in DEXTROSE 5%-WATER 100 ML IVPB SCH ×2 (01:49→11:16)
[2019-04-02] MEDS ORDERED: METOPROLOL TARTRATE 50 MG TABLET (FP) ONE ×3 (06:13→22:57)
[2019-04-02] MEDS ORDERED: METOPROLOL TARTRATE 25 MG TABLET (FP) ONE ×3 (06:13→22:57)
[2019-04-02] MEDS: sitaGLIPtin PHOSPHATE 50 MG TABLET NR SCH (06:24)
[2019-04-02] MEDS: INSULIN SLIDING SCALE (NOVOLOG) 1 VIAL SQ SCH ×3 (06:25→17:57)
[2019-04-02] MEDS: NYSTATIN POWDER 100,000 UNITS/GM - 15 GM TOPICAL POWDER TP SCH ×3 (06:25→23:05)
[2019-04-02] MEDS ORDERED: ASCORBIC ACID 500 MG/5 ML UNIT DOSE CUP GT SCH (10:00)
[2019-04-02 10:08] LABS: BLOOD UREA NITROGEN 43.3 mg/dL (7-18); CALCIUM 8.3 mg/dL (8.5-10.1)
[2019-04-02] MEDS ORDERED: INSULIN (NOVOLOG) ASPART 100 UNITS/ML 10ML VIAL ONE (10:40)
[2019-04-02] MEDS: FERROUS SO4 300 MG/5 ML ORAL SOLN UNIT DOSE CUPS GT SCH ×2 (11:15→23:04)
[2019-04-02] MEDS: AMINO ACIDS/PROTEIN HYDROLYS 30 ML LIQUID.PKT GT SCH ×2 (11:15→17:55)
[2019-04-02] MEDS: ASCORBIC ACID 500 MG TABLET (FP) GT SCH (11:16)
[2019-04-02] MEDS: FLUoxetine HCL 20 MG/5 ML 120 BOTTLE GT SCH (11:16)
[2019-04-02] MEDS: APIXABAN 5 MG TABLET PEG SCH ×2 (11:16→23:03)
--- NOTE | 2019-04-02 11:16 | PN ---
Progress Note (short form) - Note Progress Note: PULMONARY Vented, awake. No fevers recorded. Vital Signs Period Temp Pulse Resp BP Sys/[place] Pulse Ox Last 24 Hr 97.2 F-98.4 F 60-65 14-20 99-143/45-95 99-100 Gen: vented, awake Heart: RRR Lung: scattered rhonchi Abd: soft, nontender Ext: + edema CBC, BMP 04/01/19 08:00 04/02/19 07:50 Active Medications Acetaminophen (Tylenol Oral Solution -) 650 mg GT Q4H PRN PRN Reason: FEVER Albuterol/Ipratropium (Duoneb -) 1 amp NEB Q4H PRN PRN Reason: WHEEZING Amino Acids (Prosource No Carb Liquid Pkt) 30 ml GT BID@0800,1730 [facility] Last Admin: 04/01/19 17:35 Dose: 30 ml Amiodarone HCl (Cordarone -) 200 mg GT BID [facility] Apixaban (Eliquis -) 5 mg PEG BID [facility] Last Admin: 04/01/19 23:00 Dose: 5 mg Ascorbic Acid (Vitamin C -) 500 mg GT DAILY [facility] Last Admin: 04/01/19 11:37 Dose: 500 mg Atorvastatin Calcium (Lipitor -) 80 mg GT HS [facility] Last Admin: 04/01/19 23:00 Dose: 80 mg Famotidine (Pepcid) 20 mg NGT BID [facility] Last Admin: 04/01/19 23:03 Dose: 20 mg Ferrous Sulfate (Feosol) 300 mg GT BID [facility] Last Admin: 04/01/19 23:00 Dose: 300 mg Fluoxetine HCl (Prozac Oral Solution -) 20 mg GT DAILY [facility] Levofloxacin (Levaquin 500 Mg Premixed Ivpb -) 500 mg in 100 mls @ 100 mls/hr IVPB DAILY [facility]; Protocol Last Admin: 04/01/19 11:37 Dose: 100 mls/hr Meropenem 1 gm/ Dextrose 100 mls @ 200 mls/hr IVPB Q8H-IV [facility] Last Admin: 04/02/19 01:49 Dose: 200 mls/hr Insulin Aspart (Novolog Vial Sliding Scale -) 1 vial SQ TIDAC [facility]; Protocol Last Admin: 04/02/19 06:25 Dose: 4 units Metoprolol Tartrate 50 mg/ (Metoprolol Tartrate 25 mg) 75 mg GT TID [facility] Last Admin: 04/02/19 06:25 Dose: 75 mg Multivitamins/Minerals (Certavite-Antioxidant Liquid) 15 ml GT DAILY [facility] Last Admin: 04/01/19 14:04 Dose: 15 ml Nystatin (Nystop Powder -) 1 applic TP TID [facility] Last Admin: 04/02/19 06:25 Dose: 1 applic Pantoprazole Sodium (Protonix Packets For Oral Suspension -) 40 mg PEG DAILY [facility] Last Admin: 04/01/19 12:02 Dose: 40 mg Sitagliptin Phosphate (Januvia -) 50 mg NR DAILY@0700 [facility] Last Admin: 04/02/19 06:24 Dose: 50 mg Zinc Sulfate (Orazinc -) 220 mg GT DAILY [facility] Last Admin: 04/01/19 11:36 Dose: 220 mg A/P Chronic Respiratory Failure UTI Sacral Decubitus Ulcers Sepsis Lactic Acidosis Elevated LFTs Atrial Fibrillation s/p PPM LV Diastolic Dysfunction CAD h/o MVR COPD Anemia DM h/o CVA - continue antibiotics - rate control - continue anticoagulation - enteral feeds - continue assist control - poor candidate for weaning - DVT/GI prophylaxis
[2019-04-02] MEDS: FAMOTIDINE 40 MG/5 ML ORAL SUSPENSION NGT SCH ×2 (11:17→23:04)
[2019-04-02] MEDS ORDERED: AMIODARONE HCL 200 MG TABLET GT SCH (11:30)
--- NOTE | 2019-04-02 11:43 | PN ---
Progress Note, Physician Chief Complaint: Sepsis Lactic acidosis [place] Hypernatremia IDDM COPD Chronic vent dependant respiratory failure CAD HTN AFib Functional quadriplegia History of Present Illness: mech vented still on IV abx afebrile - Current Medication List Current Medications: Active Medications Acetaminophen (Tylenol Oral Solution -) 650 mg GT Q4H PRN PRN Reason: FEVER Albuterol/Ipratropium (Duoneb -) 1 amp NEB Q4H PRN PRN Reason: WHEEZING Amino Acids (Prosource No Carb Liquid Pkt) 30 ml GT BID@0800,1730 [facility] Last Admin: 04/02/19 11:15 Dose: 30 ml Amiodarone HCl (Cordarone -) 200 mg GT BID [facility] Apixaban (Eliquis -) 5 mg PEG BID [facility] Last Admin: 04/02/19 11:16 Dose: 5 mg Ascorbic Acid (Vitamin C -) 500 mg GT DAILY [facility] Last Admin: 04/02/19 11:16 Dose: 500 mg Atorvastatin Calcium (Lipitor -) 80 mg GT HS [facility] Last Admin: 04/01/19 23:00 Dose: 80 mg Famotidine (Pepcid) 20 mg NGT BID [facility] Last Admin: 04/02/19 11:17 Dose: 20 mg Ferrous Sulfate (Feosol) 300 mg GT BID [facility] Last Admin: 04/02/19 11:15 Dose: 300 mg Fluoxetine HCl (Prozac Oral Solution -) 20 mg GT DAILY [facility] Last Admin: 04/02/19 11:16 Dose: 20 mg Levofloxacin (Levaquin 500 Mg Premixed Ivpb -) 500 mg in 100 mls @ 100 mls/hr IVPB DAILY [facility]; Protocol Last Admin: 04/01/19 11:37 Dose: 100 mls/hr Meropenem 1 gm/ Dextrose 100 mls @ 200 mls/hr IVPB Q8H-IV [facility] Last Admin: 04/02/19 11:16 Dose: 200 mls/hr Insulin Aspart (Novolog Vial Sliding Scale -) 1 vial SQ TIDAC [facility]; Protocol Last Admin: 04/02/19 11:24 Dose: 3 units Metoprolol Tartrate 50 mg/ (Metoprolol Tartrate 25 mg) 75 mg GT TID [facility] Last Admin: 04/02/19 06:25 Dose: 75 mg Multivitamins/Minerals (Certavite-Antioxidant Liquid) 15 ml GT DAILY [facility] Last Admin: 04/01/19 14:04 Dose: 15 ml Nystatin (Nystop Powder -) 1 applic TP TID [facility] Last Admin: 04/02/19 06:25 Dose: 1 applic Pantoprazole Sodium (Protonix Packets For Oral Suspension -) 40 mg PEG DAILY [facility] Last Admin: 04/01/19 12:02 Dose: 40 mg Sitagliptin Phosphate (Januvia -) 50 mg NR DAILY@0700 [facility] Last Admin: 04/02/19 06:24 Dose: 50 mg Zinc Sulfate (Orazinc -) 220 mg GT DAILY [facility] Last Admin: 04/01/19 11:36 Dose: 220 mg - Objective Vital Signs: Vital Signs Temperature 98.4 F 04/02/19 06:00 Pulse Rate 61 04/02/19 08:16 Respiratory Rate 19 04/02/19 11:29 Blood Pressure 122/69 04/02/19 06:00 O2 Sat by Pulse Oximetry (%) 99 04/02/19 08:16 Constitutional: Yes: Well Nourished, No Distress, Calm Cardiovascular: Yes: Regular Rate and Rhythm Respiratory: Yes: Mechanically Ventilated, Rhonchi (diffuse) Gastrointestinal: Yes: WNL Genitourinary: Yes: Incontinence Musculoskeletal: Yes: WNL Extremities: Yes: WNL Edema: No Peripheral Pulses WNL: Yes Neurological: Yes: Pre-Existing Deficit Labs: CBC, BMP 04/01/19 08:00 04/02/19 07:50 INR, PTT INR 1.40 (0.83-1.09) H 03/29/19 18:20 Problem List - Problems (1) Functional quadriplegia Problems reviewed: Yes Code(s): R53.2 - FUNCTIONAL QUADRIPLEGIA (2) Protein-calorie malnutrition Assessment/Plan: -Added prosource BID Problems reviewed: Yes Code(s): E46 - UNSPECIFIED PROTEIN-CALORIE MALNUTRITION Qualifiers: Protein-calorie malnutrition severity: unspecified severity Qualified Code( s): E46 - Unspecified protein-calorie malnutrition (3) Sepsis Assessment/Plan: -Cultures: Microbiology 03/29/19 20:05 Wound Gram Stain - Final 03/29/19 20:05 Wound Wound Culture - Preliminary Klebsiella Pneumoniae - Esbl Klebsiella Pneumoniae Group D Strep Or Entero Coccus Yeast Like Organism 03/29/19 18:20 Blood - Peripheral Venous Blood Culture - Preliminary NO GROWTH OBTAINED AFTER 48 HOURS, INCUBATION TO CONTINUE FOR 3 DAYS. 03/29/19 18:20 Blood - Peripheral Venous Blood Culture - Preliminary NO GROWTH OBTAINED AFTER 48 HOURS, INCUBATION TO CONTINUE FOR 3 DAYS. 03/30/19 06:00 Urine - Urine - Catheterized Urine Culture - Final NO GROWTH OBTAINED 03/29/19 18:30 Urine - Urine - Catheterized Urine Culture - Final Yeast Like Organism -ID consult -IV levaquin -Contact isolation -afebrile -no leukocytosis Problems reviewed: Yes Code(s): A41.9 - SEPSIS, UNSPECIFIED ORGANISM Qualifiers: Sepsis type: sepsis due to unspecified organism Sepsis acute organ dysfunction status: without acute organ dysfunction Qualified Code(s): A41.9 - Sepsis, unspecified organism (4) A-fib Assessment/Plan: -chronic -rate controlled -diltiazem discontinued -Continue metoprolol tart+ amiodarone -Seen by Cardiology -On eliquis-continue Problems reviewed: Yes Code(s): I48.91 - UNSPECIFIED ATRIAL FIBRILLATION Qualifiers: Atrial fibrillation type: longstanding persistent Qualified Code(s): I48.11 - Longstanding persistent atrial fibrillation (5) Diabetes mellitus Assessment/Plan: -BGM AC HS -Last A1c at 7.6% -On Glucerna -Add Januvia 50 mg daily Problems reviewed: Yes Code(s): E11.9 - TYPE 2 DIABETES MELLITUS WITHOUT COMPLICATIONS Qualifiers: Diabetes mellitus type: type 2 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: with custodial use Diabetes mellitus complication status: with hyperglycemia Qualified Code(s): E11.65 - Type 2 diabetes mellitus with hyperglycemia; Z79.4 - watermaster (current) use of insulin (6) Stage 4 skin ulcer of sacral region Assessment/Plan: -Local wound care -Offloading -IV abx---> change to GT abx if ID agrees and d/c to SNF Problems reviewed: Yes Code(s): L98.429 - NON-PRESSURE CHRONIC ULCER OF BACK WITH UNSPECIFIED SEVERITY (7) Chronic respiratory failure Assessment/Plan: -mechanical vent -bronchodilators -Pulmonary on board Problems reviewed: Yes Code(s): J96.10 - CHRONIC RESPIRATORY FAILURE, UNSP W HYPOXIA OR HYPERCAPNIA Assessment/Plan see problem list
--- NOTE | 2019-04-02 11:56 | PN ---
Progress Note, Physician History of Present Illness: AWAKE, NON VERBAL NO ACUTE DISTRESS AFEBRILE WBC 10.1 BC (-) URINE C/S (-) WOUND C/S MIXED - Current Medication List Current Medications: Active Medications Acetaminophen (Tylenol Oral Solution -) 650 mg GT Q4H PRN PRN Reason: FEVER Albuterol/Ipratropium (Duoneb -) 1 amp NEB Q4H PRN PRN Reason: WHEEZING Amino Acids (Prosource No Carb Liquid Pkt) 30 ml GT BID@0800,1730 [facility] Last Admin: 04/02/19 11:15 Dose: 30 ml Amiodarone HCl (Cordarone -) 200 mg GT BID [facility] Apixaban (Eliquis -) 5 mg PEG BID [facility] Last Admin: 04/02/19 11:16 Dose: 5 mg Ascorbic Acid (Vitamin C -) 500 mg GT DAILY [facility] Last Admin: 04/02/19 11:16 Dose: 500 mg Atorvastatin Calcium (Lipitor -) 80 mg GT HS [facility] Last Admin: 04/01/19 23:00 Dose: 80 mg Famotidine (Pepcid) 20 mg NGT BID [facility] Last Admin: 04/02/19 11:17 Dose: 20 mg Ferrous Sulfate (Feosol) 300 mg GT BID [facility] Last Admin: 04/02/19 11:15 Dose: 300 mg Fluoxetine HCl (Prozac Oral Solution -) 20 mg GT DAILY [facility] Last Admin: 04/02/19 11:16 Dose: 20 mg Levofloxacin (Levaquin 500 Mg Premixed Ivpb -) 500 mg in 100 mls @ 100 mls/hr IVPB DAILY [facility]; Protocol Last Admin: 04/01/19 11:37 Dose: 100 mls/hr Meropenem 1 gm/ Dextrose 100 mls @ 200 mls/hr IVPB Q8H-IV [facility] Last Admin: 04/02/19 11:16 Dose: 200 mls/hr Insulin Aspart (Novolog Vial Sliding Scale -) 1 vial SQ TIDAC [facility]; Protocol Last Admin: 04/02/19 11:24 Dose: 3 units Metoprolol Tartrate 50 mg/ (Metoprolol Tartrate 25 mg) 75 mg GT TID [facility] Last Admin: 04/02/19 06:25 Dose: 75 mg Multivitamins/Minerals (Certavite-Antioxidant Liquid) 15 ml GT DAILY [facility] Last Admin: 04/01/19 14:04 Dose: 15 ml Nystatin (Nystop Powder -) 1 applic TP TID [facility] Last Admin: 04/02/19 06:25 Dose: 1 applic Pantoprazole Sodium (Protonix Packets For Oral Suspension -) 40 mg PEG DAILY [facility] Last Admin: 04/01/19 12:02 Dose: 40 mg Sitagliptin Phosphate (Januvia -) 50 mg NR DAILY@0700 [facility] Last Admin: 04/02/19 06:24 Dose: 50 mg Zinc Sulfate (Orazinc -) 220 mg GT DAILY [facility] Last Admin: 04/01/19 11:36 Dose: 220 mg - Objective Vital Signs: Vital Signs Temperature 97.9 F 04/02/19 10:00 Pulse Rate 72 04/02/19 10:00 Respiratory Rate 19 04/02/19 11:29 Blood Pressure 118/58 L 04/02/19 10:00 O2 Sat by Pulse Oximetry (%) 99 04/02/19 08:16 Constitutional: Yes: No Distress Eyes: Yes: Conjunctiva Clear Cardiovascular: Yes: Regular Rate and Rhythm Respiratory: Yes: Mechanically Ventilated Gastrointestinal: Yes: Normal Bowel Sounds, Soft. No: Tenderness Edema: No Integumentary: Yes: Other (+ DECUBITUS) Labs: CBC, BMP 04/01/19 08:00 04/02/19 07:50 INR, PTT INR 1.40 (0.83-1.09) H 03/29/19 18:20 Assessment/Plan S/P SEPTIC SHOCK FEVER/ LEUKOCYTOSIS IMPROVED LACTI ACIDOSIS RESOLVED ELEVATED LFTS IMPROVED HYPERNATREMIA RESOLVED SUBSTITUTE AUGMENTIN VIA GT X 7D
[2019-04-02] MEDS: ZINC SULFATE 220 MG CAPSULE (FP) GT SCH (11:58)
[2019-04-02] MEDS: PANTOPRAZOLE SOD 40 MG SUSPENSION PACKET PEG SCH (11:58)
[2019-04-02] MEDS ORDERED: PT OWN MED DRAWER 7, Y5N ONE ×2 (12:15→22:58)
--- NOTE | 2019-04-02 12:28 | PN ---
Progress Note, Physician History of Present Illness: Awake and responsive on AC Mode of vent, via Tracheostomy. Afebrile. - Current Medication List Current Medications: Active Medications Acetaminophen (Tylenol Oral Solution -) 650 mg GT Q4H PRN PRN Reason: FEVER Albuterol/Ipratropium (Duoneb -) 1 amp NEB Q4H PRN PRN Reason: WHEEZING Amino Acids (Prosource No Carb Liquid Pkt) 30 ml GT BID@0800,1730 [facility] Last Admin: 04/02/19 11:15 Dose: 30 ml Amiodarone HCl (Cordarone -) 200 mg GT BID [facility] Last Admin: 04/02/19 11:58 Dose: 200 mg Amoxicillin/Clavulanate Potassium (Augmentin 600 Mg/5 Ml Oral Suspension -) 600 mg GT BID@0800,1730 [facility] Apixaban (Eliquis -) 5 mg PEG BID [facility] Last Admin: 04/02/19 11:16 Dose: 5 mg Ascorbic Acid (Vitamin C -) 500 mg GT DAILY [facility] Last Admin: 04/02/19 11:16 Dose: 500 mg Atorvastatin Calcium (Lipitor -) 80 mg GT HS [facility] Last Admin: 04/01/19 23:00 Dose: 80 mg Famotidine (Pepcid) 20 mg NGT BID [facility] Last Admin: 04/02/19 11:17 Dose: 20 mg Ferrous Sulfate (Feosol) 300 mg GT BID [facility] Last Admin: 04/02/19 11:15 Dose: 300 mg Fluoxetine HCl (Prozac Oral Solution -) 20 mg GT DAILY [facility] Last Admin: 04/02/19 11:16 Dose: 20 mg Insulin Aspart (Novolog Vial Sliding Scale -) 1 vial SQ TIDAC [facility]; Protocol Last Admin: 04/02/19 11:24 Dose: 3 units Metoprolol Tartrate 50 mg/ (Metoprolol Tartrate 25 mg) 75 mg GT TID [facility] Last Admin: 04/02/19 06:25 Dose: 75 mg Multivitamins/Minerals (Certavite-Antioxidant Liquid) 15 ml GT DAILY [facility] Last Admin: 04/01/19 14:04 Dose: 15 ml Nystatin (Nystop Powder -) 1 applic TP TID [facility] Last Admin: 04/02/19 06:25 Dose: 1 applic Pantoprazole Sodium (Protonix Packets For Oral Suspension -) 40 mg PEG DAILY [facility] Last Admin: 04/02/19 11:58 Dose: 40 mg Sitagliptin Phosphate (Januvia -) 50 mg NR DAILY@0700 [facility] Last Admin: 04/02/19 06:24 Dose: 50 mg Zinc Sulfate (Orazinc -) 220 mg GT DAILY [facility] Last Admin: 04/02/19 11:58 Dose: 220 mg - Objective Vital Signs: Vital Signs Temperature 97.9 F 04/02/19 10:00 Pulse Rate 72 04/02/19 10:00 Respiratory Rate 19 04/02/19 11:47 Blood Pressure 118/58 L 04/02/19 10:00 O2 Sat by Pulse Oximetry (%) 95 04/02/19 11:47 Constitutional: Yes: No Distress, Calm Neck: Yes: Other (Tracheostomy) Cardiovascular: Yes: Pulse Irregular Respiratory: Yes: Mechanically Ventilated, Rhonchi Gastrointestinal: Yes: Normal Bowel Sounds, Soft, Other (PEG in place) Edema: Yes Edema: LLE: 1+, RLE: 1+ Labs: CBC, BMP 04/01/19 08:00 04/02/19 07:50 INR, PTT INR 1.40 (0.83-1.09) H 03/29/19 18:20 Problem List - Problems (1) Sepsis Code(s): A41.9 - SEPSIS, UNSPECIFIED ORGANISM Qualifiers: Sepsis type: sepsis due to unspecified organism Sepsis acute organ dysfunction status: without acute organ dysfunction Qualified Code(s): A41.9 - Sepsis, unspecified organism (2) A-fib Code(s): I48.91 - UNSPECIFIED ATRIAL FIBRILLATION Qualifiers: Atrial fibrillation type: longstanding persistent Qualified Code(s): I48.11 - Longstanding persistent atrial fibrillation (3) Atrial fibrillation with RVR Code(s): I48.91 - UNSPECIFIED ATRIAL FIBRILLATION (4) CAD (coronary artery disease) Code(s): I25.10 - ATHSCL HEART DISEASE OF [place] CORONARY ARTERY W/O ANG PCTRS Qualifiers: Coronary Disease-Associated Artery/Lesion type: [place] artery [place] vs. transplanted heart: [place] heart Associated angina: without angina Qualified Code(s): I25.10 - Atherosclerotic heart disease of [place] coronary artery without angina pectoris (5) Diabetes mellitus Code(s): E11.9 - TYPE 2 DIABETES MELLITUS WITHOUT COMPLICATIONS Qualifiers: Diabetes mellitus type: type 2 Diabetes mellitus long-term insulin use: with long-term use Diabetes mellitus complication status: with hyperglycemia Qualified Code(s): E11.65 - Type 2 diabetes mellitus with hyperglycemia; Z79.4 - half-way (current) use of insulin (6) Diastolic dysfunction Code(s): I51.89 - OTHER ILL-DEFINED HEART DISEASES (7) Hypernatremia Code(s): E87.0 - HYPEROSMOLALITY AND HYPERNATREMIA (8) S/P mitral valve repair Code(s): Z98.890 - OTHER SPECIFIED POSTPROCEDURAL STATES (9) Sick sinus syndrome Code(s): I49.5 - SICK SINUS SYNDROME (10) Stage 4 skin ulcer of sacral region Code(s): L98.429 - NON-PRESSURE CHRONIC ULCER OF BACK WITH UNSPECIFIED SEVERITY (11) Ventilator dependent Code(s): Z99.11 - DEPENDENCE ON RESPIRATOR [VENTILATOR] STATUS (12) Diabetes mellitus Code(s): E11.9 - TYPE 2 DIABETES MELLITUS WITHOUT COMPLICATIONS Qualifiers: Diabetes mellitus type: type 2 Diabetes mellitus long-term insulin use: without long-term use Diabetes mellitus complication status: without complication Qualified Code(s): E11.9 - Type 2 diabetes mellitus without complications (13) H/O mitral valve replacement Code(s): Z95.2 - PRESENCE OF PROSTHETIC HEART VALVE (14) HTN (hypertension) Code(s): I10 - ESSENTIAL (PRIMARY) HYPERTENSION Qualifiers: Hypertension type: essential hypertension Qualified Code(s): I10 - Essential (primary) hypertension (15) Hyperlipidemia Code(s): E78.5 - HYPERLIPIDEMIA, UNSPECIFIED Qualifiers: Hyperlipidemia type: pure hypercholesterolemia Qualified Code(s): E78.00 - Pure hypercholesterolemia, unspecified; E78.0 - Pure hypercholesterolemia Assessment/Plan 02/18/2019 EGD revealing mild patchy antral erythema otherwise unremarkable. No obvious ulcers or angioectasias seen 04/30/2018 Echo: Normal LV size and fxn, severe TR RVSP 50-60 mmHg, mild MR EGD and colonoscopy in 07/2017 revealing gastritis, cecal AVM and four tubular adenomas 12/17/2016 reveal: 03/2009 acute systolic CHF and ME, R&LHc 90% distal OM1, 60% D1, preserved LV fxn, elevated LVEDP BULMARO severe posterior leaflet prolapse with severe MR->MV annuloplasty repair, afib, sinus arrest->PPM, CAD left alone. [facility] Echo: 06/28/16 normal biventricular fxn, COSMO, mod TR, MV ring Nuc stress 09/13/2016 Anterolateral ischemia/infarct SDS 3 EF 82%, abnl ecg changes 1. Sepsis/septic shock due to source with UTI (recurrence) 2. Diastolic dysfunction 3. Respiratory failure (chronic) on mechanical ventilation s/p tracheostomy and PEG 4. CAD, angina pectoris 5. Permanent AF with RVR [id number] score of 9 on DOAC 6. Sick sinus syndrome s/p PPM 7. Post mitral valve repair 8. History of HTN 9. Hypercholesterolemia 10. COPD 11. Hypernatremia 12. Anemia h/o GI Bleed 13. History of CVA 14. Sacral decubitus ulcer 15. Abnl LFTs downtrending PLAN: 1. Changed empiric Augmentin antibiotic coverage per C&S 2. Metoprolol 75 tid via PEG and change amio 200 bid to cardizem 30 tid for added rate control as BP tolerates due to chronic lung disease 3. Eliquis 5 mg BID, Lipitor 80 qd resumed following elevated LFTs resolution 4. Continue vent support O2 to keep SpO2 >90%, BD as needed 5. Enteral feeds 6. DVT/GI prophylaxis 7. Free H20 repletion
--- NOTE | 2019-04-02 12:54 | DS ---
Physical Examination Vital Signs: Vital Signs Temperature 97.9 F 04/02/19 10:00 Pulse Rate 72 04/02/19 10:00 Respiratory Rate 19 04/02/19 11:47 Blood Pressure 118/58 L 04/02/19 10:00 O2 Sat by Pulse Oximetry (%) 95 04/02/19 11:47 Findings/Remarks: 79 F from [facility] h/o CAD, Afib (on Eliquis), Sick Sinus Syndrome s/p PPM, CVA (RUE/LE residual, non-verbal), Chronic Respiratory Failure s/p trach-vent dependent, COPD, HTN, T2DM, remote h/o GIB, chronic Stage 4 sacral Wound who presents to the ED with fever 101.7F (rectal) and Afib w/ RVR. Patient has a history of CVA is non-verbal and is trach-vent dependent. As per patient's family, they noticed she has not been at her baseline, appeared more fatigued and tired. Patiently recently DCed from [facility] for urosepsis on 03/21/2019. Patient at bedside appears tired, non-verbal, trach attached to vent, in Afib w / RVR, BP MAPs in 60s-70s. Appears weak and cachectic. - Problems (1) Functional quadriplegia Problems reviewed: Yes Code(s): R53.2 - FUNCTIONAL QUADRIPLEGIA (2) Protein-calorie malnutrition Assessment/Plan: -Added prosource BID Problems reviewed: Yes Code(s): E46 - UNSPECIFIED PROTEIN-CALORIE MALNUTRITION Qualifiers: Protein-calorie malnutrition severity: unspecified severity Qualified Code( s): E46 - Unspecified protein-calorie malnutrition (3) Sepsis Assessment/Plan: -Cultures: Microbiology 03/29/19 20:05 Wound Gram Stain - Final 03/29/19 20:05 Wound Wound Culture - Preliminary Klebsiella Pneumoniae - Esbl Klebsiella Pneumoniae Group D Strep Or Entero Coccus Yeast Like Organism 03/29/19 18:20 Blood - Peripheral Venous Blood Culture - Preliminary NO GROWTH OBTAINED AFTER 48 HOURS, INCUBATION TO CONTINUE FOR 3 DAYS. 03/29/19 18:20 Blood - Peripheral Venous Blood Culture - Preliminary NO GROWTH OBTAINED AFTER 48 HOURS, INCUBATION TO CONTINUE FOR 3 DAYS. 03/30/19 06:00 Urine - Urine - Catheterized Urine Culture - Final NO GROWTH OBTAINED 03/29/19 18:30 Urine - Urine - Catheterized Urine Culture - Final Yeast Like Organism -ID consult -IV levaquin---->Changed to GT augmentin BID x 7 days -Contact isolation -afebrile -no leukocytosis Problems reviewed: Yes Code(s): A41.9 - SEPSIS, UNSPECIFIED ORGANISM Qualifiers: Sepsis type: sepsis due to unspecified organism Sepsis acute organ dysfunction status: without acute organ dysfunction Qualified Code(s): A41.9 - Sepsis, unspecified organism (4) A-fib Assessment/Plan: -chronic -rate controlled -diltiazem discontinued -Continue metoprolol tart 75 mg TID + amiodarone 200 mg po BID -Seen by Cardiology -On eliquis-continue Problems reviewed: Yes Code(s): I48.91 - UNSPECIFIED ATRIAL FIBRILLATION Qualifiers: Atrial fibrillation type: longstanding persistent Qualified Code(s): I48.11 - Longstanding persistent atrial fibrillation (5) Diabetes mellitus Assessment/Plan: -BGM AC HS -Last A1c at 7.6% -On Glucerna -Add Januvia 50 mg daily Problems reviewed: Yes Code(s): E11.9 - TYPE 2 DIABETES MELLITUS WITHOUT COMPLICATIONS Qualifiers: Diabetes mellitus type: type 2 Diabetes mellitus usp insulin use: with usp use Diabetes mellitus complication status: with hyperglycemia Qualified Code(s): E11.65 - Type 2 diabetes mellitus with hyperglycemia; Z79.4 - retirement (current) use of insulin (6) Stage 4 skin ulcer of sacral region Assessment/Plan: -Local wound care -Offloading -GT abx Problems reviewed: Yes Code(s): L98.429 - NON-PRESSURE CHRONIC ULCER OF BACK WITH UNSPECIFIED SEVERITY (7) Chronic respiratory failure Assessment/Plan: -mechanical vent -bronchodilators -Pulmonary on board Problems reviewed: Yes Code(s): J96.10 - CHRONIC RESPIRATORY FAILURE, UNSP W HYPOXIA OR HYPERCAPNIA Constitutional: Yes: Well Nourished, No Distress, Calm Cardiovascular: Yes: Regular Rate and Rhythm Respiratory: Yes: Mechanically Ventilated, Rhonchi (diffuse) Gastrointestinal: Yes: WNL, Other (PEG tube) Renal/: Yes: De Santiago Present Musculoskeletal: Yes: WNL Extremities: Yes: WNL Edema: No Peripheral Pulses WNL: Yes Integumentary: Yes: Pressure Ulcer (stage 4 sacral) Wound/Incision: Yes: Dressing Dry and Intact Neurological: Yes: Alert, Oriented Psychiatric: Yes: Alert, Oriented Labs: CBC, BMP 04/01/19 08:00 04/02/19 07:50 Discharge Summary Problems reviewed: Yes Reason For Visit: SEPSIS Current Active Problems Chronic respiratory failure (Acute) Functional quadriplegia (Acute) Hemiparesis and other late effects of cerebrovascular accident (Acute) Protein-calorie malnutrition (Acute) Sepsis (Acute) Septic shock (Acute) Laboratory Last Values WBC 10.1 K/mm3 (4.0-10.0) H 04/01/19 08:00 RBC 3.32 M/mm3 (3.60-5.2) L 04/01/19 08:00 Hgb 8.5 GM/dL (10.7-15.3) L 04/01/19 08:00 Hct 27.6 % (32.4-45.2) L 04/01/19 08:00 MCV 83.0 fl (80-96) 04/01/19 08:00 MCH 25.6 pg (25.7-33.7) L 04/01/19 08:00 MCHC 30.8 g/dl (32.0-36.0) L 04/01/19 08:00 RDW 20.3 % (11.6-15.6) H 04/01/19 08:00 Plt Count 183 K/MM3 (134-434) 04/01/19 08:00 MPV 10.3 fl (7.5-11.1) 04/01/19 08:00 Absolute Neuts (auto) 7.9 K/mm3 (1.5-8.0) 04/01/19 08:00 Neutrophils % 78.1 % (42.8-82.8) 04/01/19 08:00 Lymphocytes % 10.3 % (8-40) D 04/01/19 08:00 Monocytes % 6.1 % (3.8-10.2) 04/01/19 08:00 Eosinophils % 5.1 % (0-4.5) H D 04/01/19 08:00 Basophils % 0.4 % (0-2.0) 04/01/19 08:00 Nucleated RBC % 0 % (0-0) 04/01/19 08:00 PT with INR 16.60 SEC (9.7-13.0) H 03/29/19 18:20 INR 1.40 (0.83-1.09) H 03/29/19 18:20 PTT (Actin FS) 37.4 SECONDS (25.2-36.5) H 03/29/19 18:20 VBG pH 7.40 (7.31-7.41) 03/29/19 18:20 POC VBG pCO2 46.7 mmHg (38-52) 03/29/19 18:20 POC VBG pO2 < 49 mmHg (28-48) H 03/29/19 18:20 VBG HCO3 28.6 mmol/L (23-29) 03/29/19 18:20 VBG O2 Sat (Dylan) 67.4 % (70-80) L 03/29/19 18:20 VBG Base Excess 3.7 meq/l (-2-2) H 03/29/19 18:20 Sodium 144 mmol/L (136-145) 04/02/19 07:50 Potassium 4.0 mmol/L (3.5-5.1) 04/02/19 07:50 Chloride 113 mmol/L (98-107) H 04/02/19 07:50 Carbon Dioxide 23 mmol/L (21-32) 04/02/19 07:50 Anion Gap 9 MMOL/L (8-16) 04/02/19 07:50 BUN 43.3 mg/dL (7-18) H 04/02/19 07:50 Creatinine 1.0 mg/dL (0.55-1.3) 04/02/19 07:50 Est GFR (CKD-EPI)AfAm 62.93 04/02/19 07:50 Est GFR (CKD-EPI)NonAf 54.30 04/02/19 07:50 POC Glucometer 269 UNITS (80-120) 04/02/19 11:20 Random Glucose 305 mg/dL (74-106) H 04/02/19 07:50 Lactic Acid 1.9 mmol/L (0.4-2.0) 03/29/19 22:00 Calcium 8.3 mg/dL (8.5-10.1) L 04/02/19 07:50 Phosphorus 3.0 mg/dL (2.5-4.9) 04/01/19 08:00 Magnesium 2.5 mg/dL (1.8-2.4) H 04/01/19 08:00 Total Bilirubin 0.5 mg/dL (0.2-1) 04/01/19 08:00 Direct Bilirubin 0.2 mg/dL (0.0-0.2) 03/30/19 06:05 AST 57 U/L (15-37) H 04/01/19 08:00 ALT 57 U/L (13-61) 04/01/19 08:00 Alkaline Phosphatase 364 U/L (45-117) H 04/01/19 08:00 Troponin I 0.05 ng/ml (0.00-0.05) 03/29/19 18:20 Total Protein 5.2 g/dl (6.4-8.2) L 04/01/19 08:00 Albumin 1.4 g/dl (3.4-5.0) L 04/01/19 08:00 Urine Color Yellow 03/29/19 18:30 Urine Appearance Clear 03/29/19 18:30 Urine pH 6.5 (5.0-8.0) 03/29/19 18:30 Ur Specific [place] 1.015 (1.010-1.035) 03/29/19 18:30 Urine Protein 2+ (NEGATIVE) H 03/29/19 18:30 Urine Glucose (UA) 3+ (NEGATIVE) H 03/29/19 18:30 Urine Ketones Negative (NEGATIVE) 03/29/19 18:30 Urine Blood 1+ (NEGATIVE) H 03/29/19 18:30 Urine Nitrite Negative (NEGATIVE) 03/29/19 18:30 Urine Bilirubin Negative (NEGATIVE) 03/29/19 18:30 Urine Urobilinogen 0.2 mg/dL (0.2-1.0) 03/29/19 18:30 Ur Leukocyte Esterase 1+ (NEGATIVE) H 03/29/19 18:30 Urine WBC (Auto) 206.4 /hpf (0-5) 03/29/19 18:30 Urine RBC (Auto) 76.6 /hpf (0-4) 03/29/19 18:30 Urine Casts (Auto) 2.23 /lpf (0-8) 03/29/19 18:30 U Epithel Cells (Auto) 0.7 /HPF (0-5/HPF) 03/29/19 18:30 Urine Bacteria (Auto) 6.7 /hpf (NEGATIVE) 03/29/19 18:30 Urine Yeast (Auto) (NEGATIVE) 03/29/19 18:30 Acetaminophen 10.6 03/29/19 22:00 Influenza A (Rapid) Negative (Negative) 03/29/19 20:05 Influenza B (Rapid) Negative (Negative) 03/29/19 20:05 Microbiology 03/29/19 20:05 Wound Gram Stain - Final 03/29/19 20:05 Wound Wound Culture - Preliminary Klebsiella Pneumoniae - Esbl Klebsiella Pneumoniae Vr Ec Faecalis Yeast Like Organism Staphylococcus Latex Coag Pos 03/29/19 18:20 Blood - Peripheral Venous Blood Culture - Preliminary NO GROWTH OBTAINED AFTER 72 HOURS, INCUBATION TO CONTINUE FOR 2 DAYS. 03/29/19 18:20 Blood - Peripheral Venous Blood Culture - Preliminary NO GROWTH OBTAINED AFTER 72 HOURS, INCUBATION TO CONTINUE FOR 2 DAYS. 03/30/19 06:00 Urine - Urine - Catheterized Urine Culture - Final NO GROWTH OBTAINED 03/29/19 18:30 Urine - Urine - Catheterized Urine Culture - Final Yeast Like Organism Vital Signs Temp 97.7 F 04/02/19 12:59 Pulse 61 04/02/19 12:59 Resp 17 04/02/19 12:59 BP 120/82 04/02/19 12:59 Pulse Ox 95 04/02/19 11:47 Intake & Output 04/01/19 04/02/19 04/02/19 23:59 11:59 23:59 Intake Total 1625 1200 Balance 1625 1200 Intake: IV 400 1/2 Normal Saline 1,000 400 ml @ 100 mls/hr IV ASDIR [facility] Rx#:[id number] IVPB 100 100 Oral 0 0 Tube Feeding 550 600 Tube Irrigant 575 500 Other: Voiding Method Incontinent Diaper # Unmeasured Voids Void 2 2 1 Bowel Movement Yes Yes Yes # Bowel Movements 1 1 1 Condition: Stable - Instructions Diet, Activity, Other Instructions: Continue De Santiago catheter+ Rectal tube + Wound vac at 125 mm hg (change dressing Q72H)- all to promote sacral wound healing. Free water 300cc Q8h via feeding tube along with Glucerna TF and 25 ml/hr of H2O Disposition: RESIDENTIAL FACILITY - Home Medications Comprehensive Discharge Medication List: Ambulatory Orders Atorvastatin Ca [Lipitor] 80 mg PO HS tablet 07/26/17 Fluoxetine HCl Liquid [Prozac 20mg/5mL Oral Solution -] 20 mg PO DAILY 04/28/18 Metoprolol Tartrate [Lopressor -] 75 mg GT TID 04/28/18 Albuterol 0.083% Nebulizer Sandrita [Ventolin 0.083% Nebulizer Soln -] 1 amp NEB Q4H PRN amp 02/23/19 Nystatin Powder [Nystop Powder -] 1 applic TP TID applic 02/23/19 Ferrous Sulfate [Feosol] 300 mg GT BID udc 03/03/19 Apixaban [Eliquis -] 5 mg PEG BID tablet 03/20/19 Insulin (Levemir) [Levemir Vial] 10 units SQ AM units 03/20/19 Acetaminophen [Tylenol .Regular Strength -] 650 mg GT Q6H PRN 03/29/19 Ascorbic Acid [Vitamin C] 500 mg GT DAILY 03/29/19 Pantoprazole Suspension [Protonix Packets For Oral Suspension -] 160 mg PEG DAILY 03/29/19 Zinc Sulfate 220 mg GT DAILY 03/29/19 Acetaminophen Liquid [Tylenol 100mg/mL *Infant Drops* -] 650 mg GT Q4H PRN ml 04/02/19 Albuterol 2.5/Ipratropium 0.5 [Duoneb -] 1 amp NEB Q4H PRN amp 04/02/19 Amino Acids/Protein Hydrolys [Prosource No Carb Liquid Pkt] 30 ml GT BID@0800, 1730 packet 04/02/19 Amiodarone HCl [Cordarone -] 200 mg PO BID #60 tablet 04/02/19 Amoxicillin/Potassium Clav [Augmentin 875-125 Tablet] 1 each PO BID #14 tablet 04/02/19 Ascorbic Acid [Vitamin C -] 500 mg GT DAILY tablet 04/02/19 Famotidine [Pepcid] 20 mg NGT BID oral.susp 04/02/19 Ferrous Sulfate [Feosol] 300 mg GT BID udc 04/02/19 Insulin Sliding Scale [Novolog Vial Sliding Scale -] 1 vial SQ TIDAC units Metoprolol Tartrate [Lopressor -] 75 mg GT TID tablet 04/02/19 Multivit-Minerals [Certavite-Antioxidant Liquid] 15 ml GT DAILY cup 04/02/19 Sitagliptin Phosphate [Januvia -] 50 mg NR DAILY@0700 tablet 04/02/19 Zinc Sulfate [Orazinc -] 220 mg GT DAILY capsule 04/02/19 Prescription Drug Monitoring Program (I-STOP) results: I-STOP reviewed and no issues identified
--- NOTE | 2019-04-02 13:18 | PN ---
Progress Note (short form) - Note Progress Note: Renal follow up for hypernatremia Seen and examined at the bedside awake on vent no overnight events noted on tube feeds Vital Signs Temperature 97.7 F 04/02/19 12:59 Pulse Rate 61 04/02/19 12:59 Respiratory Rate 17 04/02/19 12:59 Blood Pressure 120/82 04/02/19 12:59 O2 Sat by Pulse Oximetry (%) 95 04/02/19 11:47 Intake & Output 03/30/19 03/31/19 04/01/19 04/02/19 23:59 23:59 23:59 23:59 Intake Total 2268 2383.2 3575 1200 Output Total 550 350 Balance 1718 2033.2 3575 1200 Weight 64.495 kg 64.41 kg NAD on vent via trach neck supple irregular, no M/R Dec BS, no rales or wheeze soft NT/ND + upper extremity edema trace LE edema CBC, BMP 04/01/19 08:00 04/02/19 07:50 Current Medications Acetaminophen (Tylenol Oral Solution -) 650 mg GT Q4H PRN PRN Reason: FEVER Albuterol/Ipratropium (Duoneb -) 1 amp NEB Q4H PRN PRN Reason: WHEEZING Amino Acids (Prosource No Carb Liquid Pkt) 30 ml GT BID@0800,1730 [facility] Last Admin: 04/02/19 11:15 Dose: 30 ml Amoxicillin/Clavulanate Potassium (Augmentin 600 Mg/5 Ml Oral Suspension -) 600 mg GT BID@0800,1730 [facility] Apixaban (Eliquis -) 5 mg PEG BID [facility] Last Admin: 04/02/19 11:16 Dose: 5 mg Ascorbic Acid (Vitamin C -) 500 mg GT DAILY [facility] Last Admin: 04/02/19 11:16 Dose: 500 mg Atorvastatin Calcium (Lipitor -) 80 mg GT HS [facility] Last Admin: 04/01/19 23:00 Dose: 80 mg Diltiazem HCl (Cardizem -) 30 mg PO TID [facility] Famotidine (Pepcid) 20 mg NGT BID [facility] Last Admin: 04/02/19 11:17 Dose: 20 mg Ferrous Sulfate (Feosol) 300 mg GT BID [facility] Last Admin: 04/02/19 11:15 Dose: 300 mg Fluoxetine HCl (Prozac Oral Solution -) 20 mg GT DAILY [facility] Last Admin: 04/02/19 11:16 Dose: 20 mg Insulin Aspart (Novolog Vial Sliding Scale -) 1 vial SQ TIDAC [facility]; Protocol Last Admin: 04/02/19 11:24 Dose: 3 units Metoprolol Tartrate 50 mg/ (Metoprolol Tartrate 25 mg) 75 mg GT TID [facility] Last Admin: 04/02/19 06:25 Dose: 75 mg Multivitamins/Minerals (Certavite-Antioxidant Liquid) 15 ml GT DAILY [facility] Last Admin: 04/01/19 14:04 Dose: 15 ml Nystatin (Nystop Powder -) 1 applic TP TID [facility] Last Admin: 04/02/19 06:25 Dose: 1 applic Pantoprazole Sodium (Protonix Packets For Oral Suspension -) 40 mg PEG DAILY [facility] Last Admin: 04/02/19 11:58 Dose: 40 mg Sitagliptin Phosphate (Januvia -) 50 mg NR DAILY@0700 [facility] Last Admin: 04/02/19 06:24 Dose: 50 mg Zinc Sulfate (Orazinc -) 220 mg GT DAILY [facility] Last Admin: 04/02/19 11:58 Dose: 220 mg 79 year old woman with history of chronic respiratory failure on vent via trach , CVA, COPD, IDDM, CAD, Afib, sacural ulcers who presented with fever and lethargy and admitted for suspected sepsis with Na of 155. 1. Hypernatremia (water deficit is 2.7L) 2. Sepsis r/o urinary source 3. Chronic Respiratory failure 4. Chronic anemia Serum Na improved and stable continue free water via feeding tube 300cc Q12h Continue empiric antibiotics per ID pending cultures Vent support as per pulmonary discharge planning as per primary team Thank you
[2019-04-02] MEDS: MULTIVIT-MINERALS ORAL LIQUID GT SCH (15:04)
[2019-04-02] MEDS: dilTIAZem HCL 30 MG TABLET (FP) PO SCH ×2 (15:26→23:03)
[2019-04-02] MEDS: AMOX TR/POTASSIUM CLAVULANATE 600 MG/5 ML GT SCH (18:53)
[2019-04-02] MEDS: ATORVASTATIN CA 80 MG TABLET (FP) GT SCH (23:04)
[2019-04-03] MEDS ORDERED: METOPROLOL TARTRATE 25 MG TABLET (FP) ONE (06:04)
[2019-04-03] MEDS ORDERED: METOPROLOL TARTRATE 50 MG TABLET (FP) ONE (06:04)
[2019-04-03] MEDS: sitaGLIPtin PHOSPHATE 50 MG TABLET NR SCH (06:07)
[2019-04-03] MEDS: NYSTATIN POWDER 100,000 UNITS/GM - 15 GM TOPICAL POWDER TP SCH (06:07)
[2019-04-03] MEDS: dilTIAZem HCL 30 MG TABLET (FP) PO SCH (06:07)
[2019-04-03] MEDS: METOPROLOL TARTRATE 50 MG, METOPROLOL TARTRATE 25 MG GT SCH (06:07)
[2019-04-03] MEDS: INSULIN SLIDING SCALE (NOVOLOG) 1 VIAL SQ SCH (06:08)
[2019-04-03] MEDS ORDERED: PT OWN MED DRAWER 7, Y5N ONE (08:23)
--- NOTE | 2019-04-03 09:03 | DS ---
Physical Examination Vital Signs: Vital Signs Temperature 97.0 F L 04/03/19 06:00 Pulse Rate 61 04/03/19 06:00 Respiratory Rate 24 H 04/03/19 08:21 Blood Pressure 121/58 L 04/03/19 06:00 O2 Sat by Pulse Oximetry (%) 100 04/03/19 04:15 Cardiovascular: Yes: S1, S2 Respiratory: Yes: Mechanically Ventilated Gastrointestinal: Yes: Normal Bowel Sounds, Soft Labs: CBC, BMP 04/01/19 08:00 04/02/19 07:50 Discharge Summary Problems reviewed: Yes Reason For Visit: SEPSIS Current Active Problems Chronic respiratory failure (Acute) Functional quadriplegia (Acute) Hemiparesis and other late effects of cerebrovascular accident (Acute) Protein-calorie malnutrition (Acute) Sepsis (Acute) Septic shock (Acute) Hospital Course: [address] [facility] h/o CAD, Afib (on Eliquis), Sick Sinus Syndrome s/p PPM, CVA (RUE/LE residual, non-verbal), Chronic Respiratory Failure s/p trach-vent dependent, COPD, HTN, T2DM, remote h/o GIB, chronic Stage 4 sacral Wound who presents to the ED with fever 101.7F (rectal) and Afib w/ RVR. Patient has a history of CVA is non-verbal and is trach-vent dependent. As per patient's family, they noticed she has not been at her baseline, appeared more fatigued and tired. Patiently recently DCed from [facility] for urosepsis on 03/21/2019. Patient at bedside appears tired, non-verbal, trach attached to vent, in Afib w / RVR, BP MAPs in 60s-70s. Appears weak and cachectic. - Problems (1) Functional quadriplegia Problems reviewed: Yes Code(s): R53.2 - FUNCTIONAL QUADRIPLEGIA (2) Protein-calorie malnutrition Assessment/Plan: -Added prosource BID Problems reviewed: Yes Code(s): E46 - UNSPECIFIED PROTEIN-CALORIE MALNUTRITION Qualifiers: Protein-calorie malnutrition severity: unspecified severity Qualified Code( s): E46 - Unspecified protein-calorie malnutrition (3) Sepsis Assessment/Plan: -Cultures: Microbiology 03/29/19 20:05 Wound Gram Stain - Final 03/29/19 20:05 Wound Wound Culture - Preliminary Klebsiella Pneumoniae - Esbl Klebsiella Pneumoniae Group D Strep Or Entero Coccus Yeast Like Organism 03/29/19 18:20 Blood - Peripheral Venous Blood Culture - Preliminary NO GROWTH OBTAINED AFTER 48 HOURS, INCUBATION TO CONTINUE FOR 3 DAYS. 03/29/19 18:20 Blood - Peripheral Venous Blood Culture - Preliminary NO GROWTH OBTAINED AFTER 48 HOURS, INCUBATION TO CONTINUE FOR 3 DAYS. 03/30/19 06:00 Urine - Urine - Catheterized Urine Culture - Final NO GROWTH OBTAINED 03/29/19 18:30 Urine - Urine - Catheterized Urine Culture - Final Yeast Like Organism -ID consult -IV levaquin---->Changed to GT augmentin BID x 7 days -Contact isolation -afebrile -no leukocytosis Problems reviewed: Yes Code(s): A41.9 - SEPSIS, UNSPECIFIED ORGANISM Qualifiers: Sepsis type: sepsis due to unspecified organism Sepsis acute organ dysfunction status: without acute organ dysfunction Qualified Code(s): A41.9 - Sepsis, unspecified organism (4) A-fib Assessment/Plan: -chronic -rate controlled -diltiazem discontinued -Continue metoprolol tart 75 mg TID + amiodarone 200 mg po BID -Seen by Cardiology -On eliquis-continue Problems reviewed: Yes Code(s): I48.91 - UNSPECIFIED ATRIAL FIBRILLATION Qualifiers: Atrial fibrillation type: longstanding persistent Qualified Code(s): I48.11 - Longstanding persistent atrial fibrillation (5) Diabetes mellitus Assessment/Plan: -BGM AC HS -Last A1c at 7.6% -On Glucerna -Add Januvia 50 mg daily Problems reviewed: Yes Code(s): E11.9 - TYPE 2 DIABETES MELLITUS WITHOUT COMPLICATIONS Qualifiers: Diabetes mellitus type: type 2 Diabetes mellitus snf insulin use: with snf use Diabetes mellitus complication status: with hyperglycemia Qualified Code(s): E11.65 - Type 2 diabetes mellitus with hyperglycemia; Z79.4 - kettle skimmer (current) use of insulin (6) Stage 4 skin ulcer of sacral region Assessment/Plan: -Local wound care -Offloading -GT abx Problems reviewed: Yes Code(s): L98.429 - NON-PRESSURE CHRONIC ULCER OF BACK WITH UNSPECIFIED SEVERITY (7) Chronic respiratory failure Assessment/Plan: -mechanical vent -bronchodilators -Pulmonary on board Problems reviewed: Yes Code(s): J96.10 - CHRONIC RESPIRATORY FAILURE, UNSP W HYPOXIA OR HYPERCAPNIA Condition: Stable - Instructions Diet, Activity, Other Instructions: Continue [place] catheter+ Rectal tube + Wound vac at 125 mm hg (change dressing Q72H)- all to promote sacral wound healing. Free water 300cc Q12H via feeding tube along with Glucerna TF and 25 ml/hr of H2O Cardizem 30 mg TID Augmentin 1 tab BID x 7 days Disposition: INTERMEDIATE FACILITY - Home Medications Comprehensive Discharge Medication List: Ambulatory Orders Atorvastatin Ca [Lipitor] 80 mg PO HS tablet 07/26/17 Fluoxetine HCl Liquid [Prozac 20mg/5mL Oral Solution -] 20 mg PO DAILY 04/28/18 Metoprolol Tartrate [Lopressor -] 75 mg GT TID 04/28/18 Albuterol 0.083% Nebulizer Sandrita [Ventolin 0.083% Nebulizer Soln -] 1 amp NEB Q4H PRN amp 02/23/19 Nystatin Powder [Nystop Powder -] 1 applic TP TID applic 02/23/19 Ferrous Sulfate [Feosol] 300 mg GT BID udc 03/03/19 Apixaban [Eliquis -] 5 mg PEG BID tablet 03/20/19 Insulin (Levemir) [Levemir Vial] 10 units SQ AM units 03/20/19 Acetaminophen [Tylenol .Regular Strength -] 650 mg GT Q6H PRN 03/29/19 Ascorbic Acid [Vitamin C] 500 mg GT DAILY 03/29/19 Pantoprazole Suspension [Protonix Packets For Oral Suspension -] 160 mg PEG DAILY 03/29/19 Zinc Sulfate 220 mg GT DAILY 03/29/19 Acetaminophen Liquid [Tylenol 100mg/mL * Drops* -] 650 mg GT Q4H PRN ml 04/02/19 Albuterol 2.5/Ipratropium 0.5 [Duoneb -] 1 amp NEB Q4H PRN amp 04/02/19 Amino Acids/Protein Hydrolys [Prosource No Carb Liquid Pkt] 30 ml GT BID@0800, 1730 packet 04/02/19 Amoxicillin/Potassium Clav [Augmentin 875-125 Tablet] 1 each PO BID #14 tablet 04/02/19 Ascorbic Acid [Vitamin C -] 500 mg GT DAILY tablet 04/02/19 Diltiazem [Cardizem -] 30 mg PO TID tablet 04/02/19 Famotidine [Pepcid] 20 mg NGT BID oral.susp 04/02/19 Ferrous Sulfate [Feosol] 300 mg GT BID udc 04/02/19 Insulin Sliding Scale [Novolog Vial Sliding Scale -] 1 vial SQ TIDAC units Metoprolol Tartrate [Lopressor -] 75 mg GT TID tablet 04/02/19 Multivit-Minerals [Certavite-Antioxidant Liquid] 15 ml GT DAILY cup 04/02/19 Sitagliptin Phosphate [Januvia -] 50 mg NR DAILY@0700 tablet 04/02/19 Zinc Sulfate [Orazinc -] 220 mg GT DAILY capsule 04/02/19
[2019-04-03] MEDS ORDERED: INSULIN (LEVEMIR) 100 UNITS/ML UNITS SQ SCH (10:00)
[2019-04-03] MEDS: AMINO ACIDS/PROTEIN HYDROLYS 30 ML LIQUID.PKT GT SCH (10:51)
[2019-04-03] MEDS: FLUoxetine HCL 20 MG/5 ML 120 BOTTLE GT SCH (10:51)
[2019-04-03] MEDS: PANTOPRAZOLE SOD 40 MG SUSPENSION PACKET PEG SCH (10:51)
[2019-04-03] MEDS: FERROUS SO4 300 MG/5 ML ORAL SOLN UNIT DOSE CUPS GT SCH (10:51)
[2019-04-03] MEDS: APIXABAN 5 MG TABLET PEG SCH (10:52)
[2019-04-03] MEDS: AMOX TR/POTASSIUM CLAVULANATE 600 MG/5 ML GT SCH (10:52)
[2019-04-03] MEDS: ZINC SULFATE 220 MG CAPSULE (FP) GT SCH (10:52)
[2019-04-03] MEDS: ASCORBIC ACID 500 MG TABLET (FP) GT SCH (10:52)
[2019-04-03] MEDS: FAMOTIDINE 40 MG/5 ML ORAL SUSPENSION NGT SCH (10:54)
[2019-04-03] MEDS ORDERED: INSULIN (NOVOLOG) ASPART 100 UNITS/ML 10ML VIAL ONE (11:27)
[2019-04-03 13:07] VITALS: BP 146/66; PULSE 60; TEMP 98.2
== END 2019-04-03 11:45 | DRG 870 ==
LOC: JER 17:07 → JERBED 20:47 → JICU 23:31 → J5S 03-31 17:09
PROVIDERS: ATTEND Family Medicine
PROC: 5A1955Z Respiratory Ventilation, Greater than 96 Consecutive Hours (ICD-10-PCS; principal; 2019-03-29)
DX: A41.89 Other specified sepsis (principal); L89.154 Pressure ulcer of sacral region, stage 4; E43 Unspecified severe protein-calorie malnutrition; R65.21 Severe sepsis with septic shock; R53.2 Functional quadriplegia; R64 Cachexia; J96.10 Chronic respiratory failure, unspecified whether with hypoxia or hypercapnia; J98.11 Atelectasis; J90 Pleural effusion, not elsewhere classified; E87.2 Acidosis; N17.9 Acute kidney failure, unspecified; E87.0 Hyperosmolality and hypernatremia; N39.0 Urinary tract infection, site not specified; I69.351 Hemiplegia and hemiparesis following cerebral infarction affecting right dominant side; I13.0 Hypertensive heart and chronic kidney disease with heart failure and stage 1 through stage 4 chronic kidney disease, or unspecified chronic kidney disease; I50.32 Chronic diastolic (congestive) heart failure; I48.11 Longstanding persistent atrial fibrillation; E46 Unspecified protein-calorie malnutrition; R50.9 Fever, unspecified; E11.22 Type 2 diabetes mellitus with diabetic chronic kidney disease; N18.2 Chronic kidney disease, stage 2 (mild); Z68.26 Body mass index [BMI] 26.0-26.9, adult; K57.90 Diverticulosis of intestine, part unspecified, without perforation or abscess without bleeding; E78.00 Pure hypercholesterolemia, unspecified; J44.9 Chronic obstructive pulmonary disease, unspecified; I69.320 Aphasia following cerebral infarction; I34.0 Nonrheumatic mitral (valve) insufficiency; I25.119 Atherosclerotic heart disease of native coronary artery with unspecified angina pectoris; R79.89 Other specified abnormal findings of blood chemistry; D64.9 Anemia, unspecified; E11.9 Type 2 diabetes mellitus without complications; Z95.1 Presence of aortocoronary bypass graft; Z93.0 Tracheostomy status; Z95.0 Presence of cardiac pacemaker; Z79.01 Long term (current) use of anticoagulants; Z79.4 Long term (current) use of insulin; Z88.1 Allergy status to other antibiotic agents
CPT/HCPCS: 36415; 71045-TC-FY; 80048; 80053; 80076; 80307; 81003; 82803; 82962; 83605; 83735; 84100; 84484; 85025; 85610; 85730; 87040; 87070; 87077; 87086; 87186; 87205; 87804; 93005; 93010; 94002; 99284-25; J0131; J7030

== ENCOUNTER 2019-04-22 13:51 | Inpatient (IN) | payer OTHER ==
[2019-04-22] MEDS ORDERED: SODIUM CHLORIDE IV ONE (14:28)
--- NOTE | 2019-04-22 14:40 | PDOC ---
Documentation entered by Marcella Feliciano SCRIBE, acting as scribe for Shaye Brar MD. Shaye Brar MD: This documentation has been prepared by the Jodie faith Adrianna, SCRIBE, under my direction and personally reviewed by me in its entirety. I confirm that the documentation accurately reflects all work, treatment, procedures, and medical decision making performed by me. Attending Attestation - Resident Resident Name: Siomara Dick - ED Attending Attestation I have performed the following: I have examined & evaluated the patient, The case was reviewed & discussed with the resident, I agree w/resident's findings & plan - HPI HPI: 79 y.o female, PMH of CAD, Afib (on Eliquis), sick sinus syndrome (s/p PPM), DMII, HTN, COPD, remote history of GI bleed, CVA (RUE/LE paralysis, non verbal) , chronic respiratory failure (s/p trach-vent dependent), chronic stage 4 sacral ulcer, presenting from [facility] for suspicion of SEPSIS. Patient is febrile, tachy, weak, and cachectic. Patient is nonverbal at baseline. Recently admitted to [facility] son 03/29/2019 for urosepsis and Afib with RVR. Allergies: None Past Medical History/PSH: CAD, Afib (on Eliquis), sick sinus syndrome (s/p PPM) , DMII, HTN, COPD, remote history of GI bleed, CVA (RUE/LE paralysis, non verbal ), chronic respiratory failure (s/p trach-vent dependent), chronic stage 4 sacral ulcer Meds: as documented in EMR PMD: Dr. Osorio - Physicial Exam PE: General: +Nonverbal. +Sleeping, but responds to painful stimuli. +Appears older than the stated age. NAD. HEENT: PERRL, EOMI, clear conjunctiva, anicteric, moist mucous membranes. Resp: +Trach in place. diminished breath sounds bilaterally, poor inspiratory effort.normal and even respirations, no respiratory distress CVS: +Irregularly irregular. +Tachycardic. no murmurs, 2+ peripheral pulses throughout, no peripheral edema Abdomen: +PEG tube in place, with surrounding granulous tissue and erythema at the insertion site. soft, NTND, no rebound or guarding. No CVAT. Genitourinary: +De Santiago in place with cloudy yellow urine production. MSK: no edema, EMANUEL x4, ROM intact. No clubbing or cyanosis. contracted extremities. Extremities: no calf tenderness Back: +Large, deep stage 4 sacral ulcer. Neuro: alert, oriented appropriately; no focal neurologic deficits Psych: Calm and cooperative Skin: +Large, deep stage 4 sacral ulcer. warm and well perfused, cap refill <2 sec, normal color, very warm to palp 04/22/19 17:28 - Critical Care Time Total Critical Care Time: 60 (severe sepsis, dehydration, liver failure, lactic acidosis, dehydration, renal insufficiency) Critical Care Statement: The care of this patient involved high complexity decision making to prevent further life threatening deterioration of the patient 's condition and/or to evaluate & treat vital organ system(s) failure or risk of failure. - Medical Decision Making 04/22/19 17:26 Vital Signs Temp Pulse Resp BP Pulse Ox 101.0 F H 131 H 23 H 103/58 L 99 04/22/19 17:15 04/22/19 17:15 04/22/19 17:15 04/22/19 17:15 04/22/19 17:15 ddx. sepsis, severe sepsis, bacteremia, dehydration, renal failure, multiorgan failure, anemia, UTI, pneumonia, flu, VS with fever, tachycardia, soft BP has been stabilized with SBP ranging 90-100s, at baseline mentation, nonverbal, responsive to pain stimuli sepsis orders, lactic, IVF, 2 liters atrial fibrillation RVR at 154 bpm, low voltage waves, nonspecific T wave abnormalities. no st elevations or depressions. IV vancomycin and zosyn for empiric coverage, as sources of infection could be sacral wound stage IV, pneumonia, viral syndrome, UTI labs and lytes with leukocytosis 14K, CONOR Cr 1.7, transaminitis, lactic acidosis (2.1, will recheck after fluids). hyperglycemia, 400s, likely stress state vs infection/inflammation. febrile here, given IV tylenol, ice to axilla hydration aggressively despite 2 L fluids still relatively hypotensive with MAP 63, BP 80s/60s. will require central line/pressors given refractory hypotension/septic shock. family wants full code, residents spoke with family (/NOK - Gene) and requests full code status. CXR Bibasilar pleural effusions with atelectasis versus infiltrate, left greater than markings, prominent mediastinum, previous valve replacement sternal sutures and pacemaker/trach tube. flu neg, cultures pending ICU cs for higher level of care. discussed dx severe sepsis, septic shock, transaminitis, CONOR, dehydration, febrile illness admit to ICU under Dr Wolfe s/o to [facility] Felipe for admission. 04/22/19 18:42 04/23/19 09:52 04/23/19 09:55 Heart Score/ECG Review #1 ECG reviewed & interpreted by me at: 14:30 Compared to previous ECG there are: Changes noted 04/22/19 17:31 atrial fibrillation RVR at 154 bpm, low voltage waves, nonspecific T wave abnormalities. no st elevations or depressions.
[2019-04-22] MEDS ORDERED: dilTIAZem HCL 50 MG/10 ML - 10 ML VIAL IVPUSH ONE (14:51)
[2019-04-22] MEDS ORDERED: SODIUM CHLORIDE 0.9% 500 ML INFUS.BAG IV ONE ×2 (14:56→21:16)
[2019-04-22] MEDS ORDERED: ACETAMINOPHEN 1000 MG/100 ML VIAL (NON FORMULARY) IVPB ONE (15:25)
[2019-04-22 15:26] LABS: VENOUS PC02 39.6 mmHg (38-52); VENOUS PH 7.42 (7.31-7.41); VENOUS PO2 < 49 mmHg (28-48)
[2019-04-22] MEDS ORDERED: dilTIAZem HCL 125 MG/25 ML - 25 ML VIAL ONE (15:26)
--- NOTE | 2019-04-22 15:27 | PDOC ---
History of Present Illness <Shaye Brar - Last Filed: 04/22/19 18:41> <Siomara Dick - Last Filed: 04/22/19 21:34> - General Chief Complaint: SIRS, Suspected/Possible Stated Complaint: FEVER Time Seen by Provider: 04/22/19 14:28 Past History <Shaye Brar - Last Filed: 04/22/19 18:41> - Past Medical History Anemia: Yes Asthma: No Cancer: No Cardiac Disorders: Yes (afib on coumadin, CABG, PPM) CVA: Yes (july 2017 right sided weakness, dysarthria) COPD: Yes (uses nc o2 @ night 1 lpm) CHF: Yes Dementia: No Diabetes: Yes GI Disorders: Yes (GI BLEED) Disorders: No HTN: Yes Hypercholesterolemia: Yes Liver Disease: No Seizures: No Thyroid Disease: No - Surgical History Abdominal Surgery: No Appendectomy: No Cardiac Surgery: Yes (pacemaker, CABG) Cholecystectomy: No Lung Surgery: No Neurologic Surgery: No Orthopedic Surgery: (BONE TUMOR REMOVAL 5YRS OLD) - Immunization History Immunization Up to Date: Yes - Psycho Social/Smoking Cessation Hx Smoking History: Smoker current status UNK Have you smoked in the past 12 months: No If you are a former smoker, when did you quit?: 2007 Information on smoking cessation initiated: No Hx Alcohol Use: No Drug/Substance Use Hx: No Substance Use Type: None Hx Substance Use Treatment: No <RudolphYissel tsaizabeth - Last Filed: 04/22/19 21:34> - Past Medical History Allergies/Adverse Reactions: Allergies Allergy/AdvReac Type Severity Reaction Status Date / Time No Known Allergies Allergy Verified 03/29/19 18:17 Home Medications: Ambulatory Orders Atorvastatin Ca [Lipitor] 80 mg PO HS tablet 07/26/17 Fluoxetine HCl Liquid [Prozac 20mg/5mL Oral Solution -] 20 mg PO DAILY 04/28/18 Metoprolol Tartrate [Lopressor -] 75 mg GT TID 04/28/18 Albuterol 0.083% Nebulizer Sandrita [Ventolin 0.083% Nebulizer Soln -] 1 amp NEB Q4H PRN amp 02/23/19 Nystatin Powder [Nystop Powder -] 1 applic TP TID applic 02/23/19 Ferrous Sulfate [Feosol] 300 mg GT BID udc 03/03/19 Apixaban [Eliquis -] 5 mg PEG BID tablet 03/20/19 Insulin (Levemir) [Levemir Vial] 10 units SQ AM units 03/20/19 Acetaminophen [Tylenol .Regular Strength -] 650 mg GT Q6H PRN 03/29/19 Ascorbic Acid [Vitamin C] 500 mg GT DAILY 03/29/19 Pantoprazole Suspension [Protonix Packets For Oral Suspension -] 160 mg PEG DAILY 03/29/19 Zinc Sulfate 220 mg GT DAILY 03/29/19 Acetaminophen Liquid [Tylenol 100mg/mL *Infant Drops* -] 650 mg GT Q4H PRN ml 04/02/19 Albuterol 2.5/Ipratropium 0.5 [Duoneb -] 1 amp NEB Q4H PRN amp 04/02/19 Amino Acids/Protein Hydrolys [Prosource No Carb Liquid Pkt] 30 ml GT BID@0800, 1730 packet 04/02/19 Amoxicillin/Potassium Clav [Augmentin 875-125 Tablet] 1 each PO BID #14 tablet 04/02/19 Ascorbic Acid [Vitamin C -] 500 mg GT DAILY tablet 04/02/19 Diltiazem [Cardizem -] 30 mg PO TID tablet 04/02/19 Famotidine [Pepcid] 20 mg NGT BID oral.susp 04/02/19 Ferrous Sulfate [Feosol] 300 mg GT BID [facility] 04/02/19 Insulin Sliding Scale [Novolog Vial Sliding Scale -] 1 vial SQ TIDAC units Metoprolol Tartrate [Lopressor -] 75 mg GT TID tablet 04/02/19 Multivit-Minerals [Certavite-Antioxidant Liquid] 15 ml GT DAILY cup 04/02/19 Sitagliptin Phosphate [Januvia -] 50 mg NR DAILY@0700 tablet 04/02/19 Zinc Sulfate [Orazinc -] 220 mg GT DAILY capsule 04/02/19 *Physical Exam - Vital Signs Last Vital Signs Temp Pulse Resp BP Pulse Ox 101.0 F H 131 H 23 H 103/58 L 99 04/22/19 17:15 04/22/19 17:15 04/22/19 17:15 04/22/19 17:15 04/22/19 17:15 Shaye Samuels - Last Filed: 04/22/19 18:41> - Vital Signs Last Vital Signs Temp Pulse Resp BP Pulse Ox 102 F H 163 H 30 H 93/53 L 100 04/22/19 14:29 04/22/19 14:25 04/22/19 14:25 04/22/19 14:24 04/22/19 14:25 <Siomara Dick - Last Filed: 04/22/19 21:34> ED Treatment Course - LABORATORY CBC & Chemistry Diagram: 04/22/19 14:45 04/22/19 14:45 - ADDITIONAL ORDERS Additional order review: Laboratory Results 04/22/19 04/22/19 04/22/19 16:00 14:45 14:45 PT with INR 16.60 H INR 1.40 H PTT (Actin FS) 40.1 H VBG pH POC VBG pCO2 POC VBG pO2 VBG HCO3 VBG O2 Sat (Dylan) VBG Base Excess Sodium 153 H Potassium 4.5 Chloride 121 H Carbon Dioxide 25 Anion Gap 8 BUN 112.9 H* Creatinine 1.7 H Est GFR (CKD-EPI)AfAm 33.13 Est GFR (CKD-EPI)NonAf 28.59 Random Glucose 419 H* Lactic Acid Calcium 7.8 L Total Bilirubin 0.3 AST 166 H ALT 180 H Alkaline Phosphatase 401 H Creatine Kinase 38 Troponin I 0.13 H B-Natriuretic Peptide Total Protein 6.0 L Albumin 1.4 L Urine Color Dk yellow Urine Appearance Turbid Urine pH 5.0 D Ur Specific Stephenson 1.020 Urine Protein 1+ H Urine Glucose (UA) Negative Urine Ketones Trace H Urine Blood 3+ H Urine Nitrite Negative Urine Bilirubin Negative Urine Urobilinogen 1.0 Ur Leukocyte Esterase 3+ H Urine WBC (Auto) 301 Urine RBC (Auto) 506 Urine Casts (Auto) 79 U Pathogenic Cast Auto None seen U Epithel Cells (Auto) 35.1 Urine Crystals (Auto) Moderate Urine Bacteria (Auto) 147.0 04/22/19 04/22/19 04/22/19 14:42 14:40 14:29 PT with INR INR PTT (Actin FS) VBG pH 7.42 H POC VBG pCO2 39.6 POC VBG pO2 < 49 H VBG HCO3 25.3 VBG O2 Sat (Dylan) 75 VBG Base Excess 1.3 Sodium Potassium Chloride Carbon Dioxide Anion Gap BUN Creatinine Est GFR (CKD-EPI)AfAm Est GFR (CKD-EPI)NonAf Random Glucose Lactic Acid 2.1 H Calcium Total Bilirubin AST ALT Alkaline Phosphatase Creatine Kinase Troponin I B-Natriuretic Peptide 7435.2 H Total Protein Albumin Urine Color Urine Appearance Urine pH Ur Specific Stephenson Urine Protein Urine Glucose (UA) Urine Ketones Urine Blood Urine Nitrite Urine Bilirubin Urine Urobilinogen Ur Leukocyte Esterase Urine WBC (Auto) Urine RBC (Auto) Urine Casts (Auto) U Pathogenic Cast Auto U Epithel Cells (Auto) Urine Crystals (Auto) Urine Bacteria (Auto) 04/22/19 14:45 RBC 3.18 L MCV 82.2 MCHC 29.4 L RDW 20.8 H MPV 12.9 H D Neutrophils % 80.1 Lymphocytes % 13.6 D Monocytes % 5.9 Eosinophils % 0.2 D Basophils % 0.2 - Medications Given in the ED: ED Medications Discontinued Medications Generic Name Dose Route Start Last Admin Trade Name Freq PRN Reason Stop Dose Admin Acetaminophen 1,000 mg 04/22/19 15:25 04/22/19 15:39 Ofirmev Injection - IVPB 04/22/19 15:26 1,000 mg ONCE ONE Administration Diltiazem HCl 10 mg 04/22/19 14:51 04/22/19 15:32 Cardizem Injection - IVPUSH 04/22/19 14:52 10 mg ONCE ONE Administration Sodium Chloride 2,062 mls @ 1,031 mls/hr 04/22/19 14:28 04/22/19 15:32 Normal Saline - 30 ml/kg infuse over 2 hr (2062 ml) 04/22/19 16:27 1,031 mls/hr IV Administration ONCE ONE Vancomycin HCl 1,250 mg/ 250 mls @ 250 mls/2 hr 04/22/19 15:38 04/22/19 16:33 Dextrose IVPB 04/22/19 17:37 250 mls/2 hr ONCE ONE Administration Protocol Piperacillin Sod/Tazobactam 50 mls @ 100 mls/hr 04/22/19 15:38 04/22/19 16:16 Sod 3.375 gm/ Dextrose IVPB 04/22/19 16:07 100 mls/hr ONCE ONE Administration Protocol Sodium Chloride 1,000 ml 04/22/19 14:56 04/22/19 15:15 Normal Saline - IV 04/22/19 14:57 1,000 ml ONCE ONE Administration <Shaye Brar - Last Filed: 04/22/19 18:41> - LABORATORY CBC & Chemistry Diagram: 04/22/19 14:45 04/22/19 14:45 - RADIOLOGY Radiology Studies Ordered: Category Date Time Status CHEST X-RAY PORTABLE* [RAD] Stat Radiology 04/22/19 14:29 Ordered - Medications Given in the ED: ED Medications Discontinued Medications Generic Name Dose Route Start Last Admin Trade Name Freq PRN Reason Stop Dose Admin Sodium Chloride 1,000 ml 04/22/19 14:56 04/22/19 15:15 Normal Saline - IV 04/22/19 14:57 1,000 ml ONCE ONE Administration <Siomara Dick - Last Filed: 04/22/19 21:34> Medical Decision Making - Critical Care Time Total Critical Care Time (minutes): 60 (severe sepsis, CONOR, liver failure, lactic acidosis) Critical Care Statement: The care of this patient involved high complexity decision making to prevent further life threatening deterioration of the patient 's condition and/or to evaluate & treat vital organ system(s) failure or risk of failure. <Shaye Brar - Last Filed: 04/22/19 18:41> - Medical Decision Making 04/22/19 15:27 79 F from [facility] h/o CAD, Afib (on Eliquis), Sick Sinus Syndrome s/p PPM, CVA (RUE/LE residual, non-verbal), Chronic Respiratory Failure s/p trach-vent dependent, COPD, HTN, T2DM, remote h/o GIB, chronic Stage 4 sacral Wound who presents to the ED with fever 102.3F (rectal) and Afib w/ RVR. Recent d/c here sepsis, only growth was wound cx which grew multiple Klebsiella Pneumoniae (including ESBL) and Staph Aureus, discharged Hypotensive 90s/50s, tachycardic 150s (Afib w/RVR on EKG), febrile (rectal 102.3 ), stage 4 sacral ulcer (10x9.5cm,3cm deep) with purulence inside but no erythema, b/l UE pitting edema, nonverbal, not following commands. -Sepsis labs -Tylenol -IVF -10mg Diltiazem -Cultures: urine, sputum, blood, stool, wound (sacral ulcer) -Vanc/Zosyn 04/22/19 16:50 BP 90s/60s, Afib w/RVR 130s, 100% O2, febrile 101.9 -2nd L NS running -Ice bags to armpits -Consult ICU for multiorgan failure 04/22/19 17:12 Spoke with ICU Resident - will see pt. -FOBT sent for possible GI bleed - no gross blood on exam 04/22/19 17:44 Called family - both numbers went to [employer] [phone] daughter/proxy Roxie Baca [phone] Jan Spivey 04/22/19 18:04 Spoke with Cheryl - full code. Spoke with daughter/proxy Roxie Baca on phone. She does not feel comfortable making decision and would like pt's Devon Spivey to make the decision. He is currently a patient admitted here. Roxie states an CLAIMS ADJUSTOR spoke with him about it a couple weeks ago and he was not yet ready to let pt go or make her DNR. ICU updated - they will discuss with . 04/22/19 21:33 Pt normotensive - hold off on central line at this time. 2L of NS completed (in boluses, septic bolus was not done). Just started 1L LR. Pt being prepped for transport to ICU. <Siomara Dick - Last Filed: 04/22/19 21:34> Discharge - Discharge Information Problems reviewed: Yes - Admission Yes <Shaye Brar - Last Filed: 04/22/19 18:41> - Discharge Information Problems reviewed: Yes - Admission Yes <Siomara Dick - Last Filed: 04/22/19 21:34> - Discharge Information Clinical Impression/Diagnosis: Severe sepsis, Stage 4 skin ulcer of sacral region, Atrial fibrillation with RVR, Transaminitis, CONOR (acute kidney injury), Anemia, NSTEMI (non-ST elevated myocardial infarction), Septic shock Condition: Guarded
[2019-04-22] MEDS ORDERED: ACETAMINOPHEN INJECTION 100 ML IVPB ONE (15:34)
[2019-04-22] MEDS ORDERED: VANCOMYCIN HCL 1,250 MG in DEXTROSE 5%-WATER - 250 ML IVPB ONE (15:38)
[2019-04-22] MEDS ORDERED: PIPERACILLIN/TAZOB 3.375 GM 3.375 GM in DEXTROSE 5%-WATER - 50 ML IVPB ONE (15:38)
[2019-04-22 15:49] LABS: BASO % 0.2 % (0-2.0); EOS % 0.2 % (0-4.5); HEMATOCRIT 26.1 % (32.4-45.2); HEMOGLOBIN 7.7 GM/dL (10.7-15.3); LYMPH % 13.6 % (8-40); MCH 24.1 pg (25.7-33.7); MCHC 29.4 g/dl (32.0-36.0); MEAN CELL VOLUME 82.2 fl (80-96); MEAN PLT VOLUME 12.9 fl (7.5-11.1); MONO % 5.9 % (3.8-10.2); NEUT % 80.1 % (42.8-82.8); PLATELET COUNT 173 K/MM3 (134-434); RBC 3.18 M/mm3 (3.60-5.2); RDW 20.8 % (11.6-15.6); WHITE BLOOD COUNT 14.2 K/mm3 (4.0-10.0)
[2019-04-22] MEDS ORDERED: PIPERACILLIN/TAZOB 3.375 GM 3.375 GM/50 ML BAG IVPB ONE (15:55)
[2019-04-22 16:04] LABS: INR 1.4 (0.83-1.09); PROTHROMBIN TIME (PATIENT) 16.6 SEC (9.7-13.0)
[2019-04-22 16:07] LABS: ACTIVATED PTT 40.1 SECONDS (25.2-36.5)
[2019-04-22] MEDS ORDERED: PT OWN MED DRAWER 7, Y5N ONE (16:18)
[2019-04-22 16:35] LABS: EPI CELLS 35.1 /HPF (0-5/HPF); HYALINE CASTS 79 /lpf (0-8); URINE APPEARANCE TURBID; URINE BILIRUBIN NEGATIVE (NEGATIVE); URINE COLOR DK YELLOW; URINE GLUCOSE (UA) NEGATIVE (NEGATIVE); URINE KETONE TRACE (NEGATIVE); URINE LEUK ESTERASE 3+ (NEGATIVE); URINE NITRITE NEGATIVE (NEGATIVE); URINE PROTEIN 1+ (NEGATIVE); URINE RBC 506 /hpf (0-4); URINE WBC 301 /hpf (0-5)
[2019-04-22 16:36] LABS: ALBUMIN 1.4 g/dl (3.4-5.0); BILIRUBIN,TOTAL 0.3 mg/dL (0.2-1); CALCIUM 7.8 mg/dL (8.5-10.1); CREATININE 1.7 mg/dL (0.55-1.3); POTASSIUM 4.5 mmol/L (3.5-5.1)
[2019-04-22 16:46] LABS: BLOOD UREA NITROGEN 112.9 mg/dL (7-18)
[2019-04-22 17:41] LABS: URINE CRYSTALS MODERATE /hpf
--- NOTE | 2019-04-22 18:13 | HP ---
CHIEF COMPLAINT: fevers, lethargic PCP: Dr. Irene HISTORY OF PRESENT ILLNESS: Patient is a 79 year old female who resides in [facility]. 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 Patient presents to the ED today with fevers, 102F, Afib w/ RVR 130s 150s. Patient is non verbal at baseline. Patient brought in as she has appears to be more fatigued at the PA. She was recently discharged from [facility] admitted (03/29-04/03) with similar presentation and evaluated by ID service. Patient appears fatigued, non verbal. Afib with rvr 130s-140s, She appears to have anasarca as all her extremities are edematous. she is noted to have brown watery mucousy diarrhea, a c diff is pending. ICU to evaluate patient for multi organ failure. ER course was notable for: (1) febrile 101, 102.3 rectal, tachycardia 131, 90/62 bp (2) na 153, k 4.5, chl 121, bun 112, creat 1.7 (3) glucose 419 (4) lactic acid 2.1/urine and blood cultures pending (5) c diff pending, +watery/mucousy stools (6) elevated liver enzymes (7) trop 0.13 (8) bnp 7432.2 (9) given vancomycin, zosyn, 2 liter ivf fluid bolus (10) chronic stage 4 sacrum. measured in the ED (see Ed notes) Recent Travel: n/a PAST MEDICAL HISTORY: see above PAST SURGICAL HISTORY: see above, chronic trach Social History: Smoking: n/a Alcohol:n/a Drugs: n/a Allergies No Known Allergies Allergy (Verified 03/29/19 18:17) HOME MEDICATIONS: Home Medications Medication Instructions Recorded Atorvastatin Ca [Lipitor] 80 mg PO HS tablet 07/26/17 Fluoxetine HCl Liquid [Prozac 20 mg PO DAILY 04/28/18 20mg/5mL Oral Solution -] Metoprolol Tartrate [Lopressor -] 75 mg GT TID 04/28/18 Albuterol 0.083% Nebulizer Sandrita 1 amp NEB Q4H PRN amp 02/23/19 [Ventolin 0.083% Nebulizer Soln -] Nystatin Powder [Nystop Powder -] 1 applic TP TID applic 02/23/19 Ferrous Sulfate [Feosol] 300 mg GT BID udc 03/03/19 Apixaban [Eliquis -] 5 mg PEG BID tablet 03/20/19 Insulin (Levemir) [Levemir Vial] 10 units SQ AM units 03/20/19 Acetaminophen [Tylenol .Regular 650 mg GT Q6H PRN 03/29/19 Strength -] Ascorbic Acid [Vitamin C] 500 mg GT DAILY 03/29/19 Pantoprazole Suspension [Protonix 160 mg PEG DAILY 03/29/19 Packets For Oral Suspension -] Zinc Sulfate 220 mg GT DAILY 03/29/19 Acetaminophen Liquid [Tylenol 650 mg GT Q4H PRN ml 04/02/19 100mg/mL * Drops* -] Albuterol 2.5/Ipratropium 0.5 1 amp NEB Q4H PRN amp 04/02/19 [Duoneb -] Amino Acids/Protein Hydrolys 30 ml GT BID@0800,1730 packet 04/02/19 [Prosource No Carb Liquid Pkt] Amoxicillin/Potassium Clav 1 each PO BID #14 tablet 04/02/19 [Augmentin 875-125 Tablet] Ascorbic Acid [Vitamin C -] 500 mg GT DAILY tablet 04/02/19 Diltiazem [Cardizem -] 30 mg PO TID tablet 04/02/19 Famotidine [Pepcid] 20 mg NGT BID oral.susp 04/02/19 Ferrous Sulfate [Feosol] 300 mg GT BID udc 04/02/19 Insulin Sliding Scale [Novolog 1 vial SQ TIDAC units 04/02/19 Vial Sliding Scale -] Metoprolol Tartrate [Lopressor -] 75 mg GT TID tablet 04/02/19 Multivit-Minerals 15 ml GT DAILY cup 04/02/19 [Certavite-Antioxidant Liquid] Sitagliptin Phosphate [Januvia -] 50 mg NR DAILY@0700 tablet 04/02/19 Zinc Sulfate [Orazinc -] 220 mg GT DAILY capsule 04/02/19 PHYSICAL EXAMINATION Vital Signs - 24 hr 04/22/19 04/22/19 04/22/19 14:24 14:25 14:29 Temperature 102.3 F H 102 F H Pulse Rate 77 163 H Pulse Rate [ 155 H Apical] Respiratory 18 30 H 18 Rate Blood Pressure 93/53 L Blood Pressure 93/53 L [Right Arm] O2 Sat by Pulse 99 100 100 Oximetry (%) 04/22/19 04/22/19 04/22/19 15:30 15:45 16:00 Temperature Pulse Rate Pulse Rate [ 139 H 115 H 100 H Apical] Respiratory 19 19 Rate Blood Pressure Blood Pressure 87/50 L 94/59 L 94/59 L [Right Arm] O2 Sat by Pulse 100 99 99 Oximetry (%) 04/22/19 04/22/19 04/22/19 16:24 17:15 17:45 Temperature 101.0 F H 101.0 F H Pulse Rate Pulse Rate [ 146 H 131 H Apical] Respiratory 21 H 23 H 23 H Rate Blood Pressure Blood Pressure 90/62 103/58 L [Right Arm] O2 Sat by Pulse 99 99 Oximetry (%) GENERAL: Awake, alert,non verbal at baseline HEAD: Normal with no signs of trauma. EYES: Pupils equal, round and reactive to light, extraocular movements intact, sclera anicteric, conjunctiva clear. No lid lag. EARS, NOSE, THROAT: Ears normal, nares patent, oropharynx clear without exudates. Moist mucous membranes. NECK: trach/vent patient LUNGS: scattered rhonchi HEART: afib with rvr 130s, 150s ABDOMEN: non distended, peg tube MUSCULOSKELETAL: bed bound UPPER EXTREMITIES: edema on bilateral arms +2 bilaterally LOWER EXTREMITIES: +1 bilateral lower ext NEUROLOGICAL: non verbal, bed bound PSYCHIATRIC: calm Laboratory Results - last 24 hr 04/22/19 04/22/19 04/22/19 14:29 14:40 14:42 WBC RBC Hgb Hct MCV MCH MCHC RDW Plt Count MPV Absolute Neuts (auto) Neutrophils % Lymphocytes % Monocytes % Eosinophils % Basophils % Nucleated RBC % PT with INR INR PTT (Actin FS) VBG pH 7.42 H POC VBG pCO2 39.6 POC VBG pO2 < 49 H VBG HCO3 25.3 VBG O2 Sat (Dylan) 75 VBG Base Excess 1.3 Sodium Potassium Chloride Carbon Dioxide Anion Gap BUN Creatinine Est GFR (CKD-EPI)AfAm Est GFR (CKD-EPI)NonAf Random Glucose Lactic Acid 2.1 H Calcium Total Bilirubin AST ALT Alkaline Phosphatase Creatine Kinase Troponin I B-Natriuretic Peptide 7435.2 H Total Protein Albumin Urine Color Urine Appearance Urine pH Ur Specific [place] Urine Protein Urine Glucose (UA) Urine Ketones Urine Blood Urine Nitrite Urine Bilirubin Urine Urobilinogen Ur Leukocyte Esterase Urine WBC (Auto) Urine RBC (Auto) Urine Casts (Auto) U Pathogenic Cast Auto U Epithel Cells (Auto) Urine Crystals (Auto) Urine Bacteria (Auto) Stool Occult Blood Influenza A (Rapid) Influenza B (Rapid) 04/22/19 04/22/19 04/22/19 14:45 14:45 14:45 WBC 14.2 H RBC 3.18 L Hgb 7.7 L Hct 26.1 L MCV 82.2 MCH 24.1 L MCHC 29.4 L RDW 20.8 H Plt Count 173 MPV 12.9 H D Absolute Neuts (auto) 11.4 H Neutrophils % 80.1 Lymphocytes % 13.6 D Monocytes % 5.9 Eosinophils % 0.2 D Basophils % 0.2 Nucleated RBC % 0 PT with INR 16.60 H INR 1.40 H PTT (Actin FS) 40.1 H VBG pH POC VBG pCO2 POC VBG pO2 VBG HCO3 VBG O2 Sat (Dylan) VBG Base Excess Sodium 153 H Potassium 4.5 Chloride 121 H Carbon Dioxide 25 Anion Gap 8 BUN 112.9 H* Creatinine 1.7 H Est GFR (CKD-EPI)AfAm 33.13 Est GFR (CKD-EPI)NonAf 28.59 Random Glucose 419 H* Lactic Acid Calcium 7.8 L Total Bilirubin 0.3 AST 166 H ALT 180 H Alkaline Phosphatase 401 H Creatine Kinase 38 Troponin I 0.13 H B-Natriuretic Peptide Total Protein 6.0 L Albumin 1.4 L Urine Color Urine Appearance Urine pH Ur Specific [place] Urine Protein Urine Glucose (UA) Urine Ketones Urine Blood Urine Nitrite Urine Bilirubin Urine Urobilinogen Ur Leukocyte Esterase Urine WBC (Auto) Urine RBC (Auto) Urine Casts (Auto) U Pathogenic Cast Auto U Epithel Cells (Auto) Urine Crystals (Auto) Urine Bacteria (Auto) Stool Occult Blood Influenza A (Rapid) Influenza B (Rapid) 04/22/19 04/22/19 04/22/19 15:23 16:00 17:00 WBC RBC Hgb Hct MCV MCH MCHC RDW Plt Count MPV Absolute Neuts (auto) Neutrophils % Lymphocytes % Monocytes % Eosinophils % Basophils % Nucleated RBC % PT with INR INR PTT (Actin FS) VBG pH POC VBG pCO2 POC VBG pO2 VBG HCO3 VBG O2 Sat (Dylan) VBG Base Excess Sodium Potassium Chloride Carbon Dioxide Anion Gap BUN Creatinine Est GFR (CKD-EPI)AfAm Est GFR (CKD-EPI)NonAf Random Glucose Lactic Acid Calcium Total Bilirubin AST ALT Alkaline Phosphatase Creatine Kinase Troponin I B-Natriuretic Peptide Total Protein Albumin Urine Color Dk yellow Urine Appearance Turbid Urine pH 5.0 D Ur Specific [place] 1.020 Urine Protein 1+ H Urine Glucose (UA) Negative Urine Ketones Trace H Urine Blood 3+ H Urine Nitrite Negative Urine Bilirubin Negative Urine Urobilinogen 1.0 Ur Leukocyte Esterase 3+ H Urine WBC (Auto) 301 Urine RBC (Auto) 506 Urine Casts (Auto) 79 U Pathogenic Cast Auto None seen U Epithel Cells (Auto) 35.1 Urine Crystals (Auto) Moderate Urine Bacteria (Auto) 147.0 Stool Occult Blood Trace Influenza A (Rapid) Negative Influenza B (Rapid) Negative ASSESSMENT/PLAN: Family Medical History Family History: Unable to Obtain Problem List - Problem (1) Septic shock Assessment/Plan: septic shock with unknown source (UTI vs Pneumonia (aspiration), vs infected sacral ulcer. Given vanco, Zosyn, 2 liter fluid bolus in the ED. ICU consulted for possible ICU admission Monitor labs, vitals Blood and urine cultures pending c diff pending ID consulted Code(s): A41.9 - SEPSIS, UNSPECIFIED ORGANISM; R65.21 - SEVERE SEPSIS WITH SEPTIC SHOCK (2) Severe sepsis Code(s): A41.9 - SEPSIS, UNSPECIFIED ORGANISM; R65.20 - SEVERE SEPSIS WITHOUT SEPTIC SHOCK (3) CONOR (acute kidney injury) Assessment/Plan: Elevated BUN/creat in the setting of severe sepsis/septic shock monitor urine output UA with turbid urine with elevated bacteria, leuks and wbc continue to provide hydration Code(s): N17.9 - ACUTE KIDNEY FAILURE, UNSPECIFIED (4) Anemia Assessment/Plan: monitor with daily labs and transfuse if hmg <7 Code(s): D64.9 - ANEMIA, UNSPECIFIED (5) Atrial fibrillation with RVR Assessment/Plan: Afib with RVR with 10mg cardizem IV push in the ED heart rate ranging between 120-150s with hypotension will hold beta mason and cardizem in the setting of septic shock Troponins elevated @ 0.13, trending Code(s): I48.91 - UNSPECIFIED ATRIAL FIBRILLATION (6) Severe sepsis Code(s): A41.9 - SEPSIS, UNSPECIFIED ORGANISM; R65.20 - SEVERE SEPSIS WITHOUT SEPTIC SHOCK (7) Stage 4 skin ulcer of sacral region Assessment/Plan: wound care daily turn and position evaluate for drainage of wound Code(s): L98.429 - NON-PRESSURE CHRONIC ULCER OF BACK WITH UNSPECIFIED SEVERITY (8) Transaminitis Code(s): R74.0 - NONSPEC ELEV OF LEVELS OF TRANSAMNS & LACTIC ACID DEHYDRGNSE (9) A-fib Code(s): I48.91 - UNSPECIFIED ATRIAL FIBRILLATION Qualifiers: Atrial fibrillation type: longstanding persistent Qualified Code(s): I48.11 - Longstanding persistent atrial fibrillation (10) CHF (congestive heart failure) Code(s): I50.9 - HEART FAILURE, UNSPECIFIED (11) Diabetes mellitus Assessment/Plan: novolog monitor bgm q4 while npo Code(s): E11.9 - TYPE 2 DIABETES MELLITUS WITHOUT COMPLICATIONS Qualifiers: Diabetes mellitus type: type 2 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 - New Patient This patient is new to me today: Yes Date on this admission: 04/22/19 - Critical Care Critical Care patient: Yes Total Critical Care Time (in minutes): 60 Critical Care Statement: The care of this patient involved high complexity decision making to prevent further life threatening deterioration of the patient 's condition and/or to evaluate & treat vital organ system(s) failure or risk of failure.
[2019-04-22] MEDS ORDERED: SODIUM CHLORIDE 1,000 ML IV SCH (18:15)
[2019-04-22] MEDS ORDERED: PIPERACILLIN/TAZOB 2.25 GM 2.25 GM in DEXTROSE 5%-WATER - 50 ML IVPB SCH (18:45)
--- NOTE | 2019-04-22 19:30 | CONSULT ---
Consultation: REQUESTING PROVIDER: CONSULT REQUEST: We have been asked to medically evaluate this patient for sepsis with multiorgan failure and hypotension HISTORY OF PRESENT ILLNESS: 79 y/o female with hx of CAD, Afib (on Eliquis), sick sinus syndrome (s/p PPM), DMII, HTN, COPD, remote history of GI bleed, CVA (RUE/LE paralysis, non verbal) , chronic respiratory failure (s/p trach-vent dependent), chronic stage 4 sacral ulcer, presenting from [facility] for T 102.3 and Afib with RVR. Of note, recent d/c here 04/03/19 sepsis, only growth was wound cx which grew multiple Klebsiella Pneumoniae (including ESBL) and Staph Aureus. REVIEW OF SYSTEMS: unable to perform 2/2 nonverbal and acute clinical status PHYSICAL EXAMINATION Vital Signs - 24 hr 04/22/19 04/22/19 04/22/19 14:24 14:25 14:29 Temperature 102.3 F H 102 F H Pulse Rate 77 163 H Pulse Rate [ 155 H Apical] Respiratory 18 30 H 18 Rate Blood Pressure 93/53 L Blood Pressure 93/53 L [Right Arm] O2 Sat by Pulse 99 100 100 Oximetry (%) 04/22/19 04/22/19 04/22/19 15:30 15:45 16:00 Temperature Pulse Rate Pulse Rate [ 139 H 115 H 100 H Apical] Respiratory 19 19 19 Rate Blood Pressure Blood Pressure 87/50 L 94/59 L 94/59 L [Right Arm] O2 Sat by Pulse 100 99 99 Oximetry (%) 04/22/19 04/22/19 04/22/19 16:24 17:15 17:45 Temperature 101.0 F H 101.0 F H Pulse Rate Pulse Rate [ 146 H 131 H Apical] Respiratory 21 H 23 H 23 H Rate Blood Pressure Blood Pressure 90/62 103/58 L [Right Arm] O2 Sat by Pulse 99 99 Oximetry (%) GENERAL: arousable but does not follow commands, minimal grimace HEAD: Normal with no signs of trauma. EYES: PERRLA, EOMI ENT: Ears normal, nares patent, oropharynx clear without exudates. Moist mucous membranes. NECK: trach in place without evidence of infection, normal appearing borders LUNGS: vented, coarse breath sounds in all lung waller HEART: irregularly irregular, tachycardic, normal S1 and S2 without murmur, rub or gallop. ABDOMEN: PEG in place, soft, nontender, not distended, no guarding, no rebound, no masses. No hepatomegaly or splenomegaly. MUSCULOSKELETAL: Normal range of motion at all joints. No bony deformities or tenderness. LOWER EXTREMITIES: 2+ pulses, warm, well-perfused. No calf tenderness. No peripheral edema. NEUROLOGICAL: limited 2/2 mental status, does not follow commands PSYCHIATRIC: opens eyes during examination SKIN: stage 4 sacral ulcer ~10cm in diameter with depth to the bone, fibrinous tissue at the bases with no evidence of bleeding or purulence Laboratory Results - last 24 hr 04/22/19 04/22/19 04/22/19 14:29 14:40 14:42 WBC RBC Hgb Hct MCV MCH MCHC RDW Plt Count MPV Absolute Neuts (auto) Neutrophils % Lymphocytes % Monocytes % Eosinophils % Basophils % Nucleated RBC % PT with INR INR PTT (Actin FS) VBG pH 7.42 H POC VBG pCO2 39.6 POC VBG pO2 < 49 H VBG HCO3 25.3 VBG O2 Sat (Dylan) 75 VBG Base Excess 1.3 Sodium Potassium Chloride Carbon Dioxide Anion Gap BUN Creatinine Est GFR (CKD-EPI)AfAm Est GFR (CKD-EPI)NonAf Random Glucose Lactic Acid 2.1 H Calcium Total Bilirubin AST ALT Alkaline Phosphatase Creatine Kinase Troponin I B-Natriuretic Peptide 7435.2 H Total Protein Albumin Urine Color Urine Appearance Urine pH Ur Specific [place] Urine Protein Urine Glucose (UA) Urine Ketones Urine Blood Urine Nitrite Urine Bilirubin Urine Urobilinogen Ur Leukocyte Esterase Urine WBC (Auto) Urine RBC (Auto) Urine Casts (Auto) U Pathogenic Cast Auto U Epithel Cells (Auto) Urine Crystals (Auto) Urine Bacteria (Auto) Stool Occult Blood Influenza A (Rapid) Influenza B (Rapid) 04/22/19 04/22/19 04/22/19 14:45 14:45 14:45 WBC 14.2 H RBC 3.18 L Hgb 7.7 L Hct 26.1 L MCV 82.2 MCH 24.1 L MCHC 29.4 L RDW 20.8 H Plt Count 173 MPV 12.9 H D Absolute Neuts (auto) 11.4 H Neutrophils % 80.1 Lymphocytes % 13.6 D Monocytes % 5.9 Eosinophils % 0.2 D Basophils % 0.2 Nucleated RBC % 0 PT with INR 16.60 H INR 1.40 H PTT (Actin FS) 40.1 H VBG pH POC VBG pCO2 POC VBG pO2 VBG HCO3 VBG O2 Sat (Dylan) VBG Base Excess Sodium 153 H Potassium 4.5 Chloride 121 H Carbon Dioxide 25 Anion Gap 8 BUN 112.9 H* Creatinine 1.7 H Est GFR (CKD-EPI)AfAm 33.13 Est GFR (CKD-EPI)NonAf 28.59 Random Glucose 419 H* Lactic Acid Calcium 7.8 L Total Bilirubin 0.3 AST 166 H ALT 180 H Alkaline Phosphatase 401 H Creatine Kinase 38 Troponin I 0.13 H B-Natriuretic Peptide Total Protein 6.0 L Albumin 1.4 L Urine Color Urine Appearance Urine pH Ur Specific [place] Urine Protein Urine Glucose (UA) Urine Ketones Urine Blood Urine Nitrite Urine Bilirubin Urine Urobilinogen Ur Leukocyte Esterase Urine WBC (Auto) Urine RBC (Auto) Urine Casts (Auto) U Pathogenic Cast Auto U Epithel Cells (Auto) Urine Crystals (Auto) Urine Bacteria (Auto) Stool Occult Blood Influenza A (Rapid) Influenza B (Rapid) 04/22/19 04/22/19 04/22/19 15:23 16:00 17:00 WBC RBC Hgb Hct MCV MCH MCHC RDW Plt Count MPV Absolute Neuts (auto) Neutrophils % Lymphocytes % Monocytes % Eosinophils % Basophils % Nucleated RBC % PT with INR INR PTT (Actin FS) VBG pH POC VBG pCO2 POC VBG pO2 VBG HCO3 VBG O2 Sat (Dylan) VBG Base Excess Sodium Potassium Chloride Carbon Dioxide Anion Gap BUN Creatinine Est GFR (CKD-EPI)AfAm Est GFR (CKD-EPI)NonAf Random Glucose Lactic Acid Calcium Total Bilirubin AST ALT Alkaline Phosphatase Creatine Kinase Troponin I B-Natriuretic Peptide Total Protein Albumin Urine Color Dk yellow Urine Appearance Turbid Urine pH 5.0 D Ur Specific [place] 1.020 Urine Protein 1+ H Urine Glucose (UA) Negative Urine Ketones Trace H Urine Blood 3+ H Urine Nitrite Negative Urine Bilirubin Negative Urine Urobilinogen 1.0 Ur Leukocyte Esterase 3+ H Urine WBC (Auto) 301 Urine RBC (Auto) 506 Urine Casts (Auto) 79 U Pathogenic Cast Auto None seen U Epithel Cells (Auto) 35.1 Urine Crystals (Auto) Moderate Urine Bacteria (Auto) 147.0 Stool Occult Blood Trace Influenza A (Rapid) Negative Influenza B (Rapid) Negative Active Medications Generic Name Dose Route Start Last Admin Trade Name Freq PRN Reason Stop Dose Admin Albuterol/Ipratropium 1 amp 04/22/19 20:00 Duoneb - NEB RQID BAHMAN Apixaban 5 mg 04/22/19 22:00 Eliquis - PEG BID BAHMAN Atorvastatin Calcium 80 mg 04/22/19 22:00 Lipitor - PO HS BAHMAN Diltiazem HCl 30 mg 04/22/19 22:00 Cardizem - PO TID BAHMAN Sodium Chloride 1,000 mls @ 100 mls/hr 04/22/19 18:15 04/22/19 18:24 Normal Saline - IV 100 mls/hr ASDIR BAHMAN Administration Piperacillin Sod/Tazobactam 50 mls @ 100 mls/hr 04/23/19 02:00 Sod 2.25 gm/ Dextrose IVPB Q8H-IV BAHMAN Protocol Piperacillin Sod/Tazobactam 50 mls @ 100 mls/hr 04/23/19 02:00 Sod 2.25 gm/ Dextrose IVPB 04/23/19 18:59 Q8H-IV BAHMAN Protocol Insulin Aspart 1 vial 04/22/19 22:00 Novolog Vial Sliding Scale - SQ ACHS BAHMAN Protocol Metoprolol Tartrate 75 mg 04/22/19 22:00 Lopressor - GT TID [facility] ASSESSMENT/PLAN: 79 y/o female with hx of CAD, Afib (on Eliquis), sick sinus syndrome (s/p PPM), DMII, HTN, COPD, remote history of GI bleed, CVA (RUE/LE paralysis, non verbal) , chronic respiratory failure (s/p trach-vent dependent), chronic stage 4 sacral ulcer, presenting from [facility] for T 102.3 and Afib with RVR with concern for septic shock with source of pna vs uti vs sacral ulcer Neuro: -arouses to stimulus but does not respond or follow commands Cardio: -Afib with RVR s/p 10mg cardizem; HR 140s-150s BP 80s/60s -EKG: afib with rvr, no hilton/d -s/p 2L ivf -trop 0.13, BUN 7435 -CVC and pressors for HDS support Pulm: -trach and vent dependent with sats 100% -CXR: bibasilar pleural effusions with atelectasis vs infiltrate, L>R Renal: -CONOR Cr 1.7 BUN 112.9 -UA: turbid appearance with 3+leuks, bacteria and WBC -s/p 2L ID: -tmax 102.3 s/p tylenol T 102 -empiric vanc and zosyn -f/u Ucx, Bcx, stool Cx Wound: -stage 4 sacral ulcer, does not appear infected -daily wounds care GI: -PEG in place -NPO Dispo: We will continue to follow the patient. Thank you for this consultative opportunity. HCP is daughter, however, after ED convo with daughter, she states she relinquishes authority to her father to make decision regarding code status. Patient's is a patient currently in Room 823; after discussion with Mr Laboy, states he would like full code Visit type - Emergency Visit Emergency Visit: Yes ED Registration Date: 04/22/19 Care time: The patient presented to the Emergency Department on the above date and was hospitalized for further evaluation of their emergent condition. - New Patient This patient is new to me today: Yes Date on this admission: 04/22/19 - Critical Care Critical Care patient: Yes Total Critical Care Time (in minutes): 45 Critical Care Statement: The care of this patient involved high complexity decision making to prevent further life threatening deterioration of the patient 's condition and/or to evaluate & treat vital organ system(s) failure or risk of failure. ATTENDING PHYSICIAN STATEMENT I saw and evaluated the patient. I reviewed the resident's note and discussed the case with the resident. I agree with the resident's findings and plan as documented. SUBJECTIVE: OBJECTIVE: ASSESSMENT AND PLAN:
[2019-04-22] MEDS ORDERED: ACETAMINOPHEN 1000 MG/100 ML VIAL (NON FORMULARY) IVPB PRN (20:55)
[2019-04-22] MEDS ORDERED: LACTATED RINGERS SOLUTION 1,000 ML/1,000 ML INFUS.BAG IV SCH ×2 (21:45→22:30)
[2019-04-22] MEDS: ALBUTEROL SO4 2.5/IPRATROPIUM 0.5 INH SOL 3 ML VIAL.NEB. NEB SCH (21:55)
[2019-04-22] MEDS ORDERED: APIXABAN 5 MG TABLET PEG SCH (22:00)
[2019-04-22] MEDS ORDERED: METOPROLOL TARTRATE 25 MG TABLET (FP) GT SCH (22:00)
[2019-04-22] MEDS ORDERED: INSULIN SLIDING SCALE (NOVOLOG) 1 VIAL SQ SCH (22:00)
[2019-04-22] MEDS ORDERED: dilTIAZem HCL 30 MG TABLET (FP) PO SCH (22:00)
[2019-04-22] MEDS ORDERED: DAPTOMYCIN 350 MG in SODIUM CHLORIDE 50 ML IVPB ONE (22:21)
[2019-04-22] MEDS ORDERED: MEROPENEM 1 GM in DEXTROSE 5%-WATER 100 ML IVPB ONE (22:21)
[2019-04-22] MEDS ORDERED: DEXTROSE 5%-WATER 100 ML IVPB ONE (23:32)
[2019-04-22] MEDS ORDERED: MEROPENEM 1 GM VIAL (RESTRICTED TO ID) IVPB ONE (23:32)
[2019-04-23] MEDS: CHLORHEXIDINE GLUCONATE 4% CLEANSER FOR DECOLONIZATION TP SCH ×2 (00:03→21:24)
[2019-04-23] MEDS: ATORVASTATIN CA 80 MG TABLET (FP) PO SCH ×2 (00:05→21:16)
[2019-04-23] MEDS: MUPIROCIN 2% TOPICAL OINTMENT FOR DECOLONIZATION NS SCH ×3 (00:05→21:23)
[2019-04-23] MEDS: INSULIN SLIDING SCALE (NOVOLOG) 1 VIAL SQ SCH ×6 (01:00→21:26)
[2019-04-23] MEDS ORDERED: PIPERACILLIN/TAZOB 2.25 GM 2.25 GM in DEXTROSE 5%-WATER - 50 ML IVPB SCH (02:00)
[2019-04-23] MEDS ORDERED: MEROPENEM 1 GM in SODIUM CHLORIDE 100 ML IVPB ONE (08:45)
[2019-04-23] MEDS: ALBUTEROL SO4 2.5/IPRATROPIUM 0.5 INH SOL 3 ML VIAL.NEB. NEB SCH ×3 (08:46→16:30)
[2019-04-23] MEDS ORDERED: PANTOPRAZOLE SODIUM 40 MG VIAL IVPUSH SCH (10:00)
[2019-04-23 10:04] LABS: BASO % 0.3 % (0-2.0); EOS % 1.2 % (0-4.5); HEMATOCRIT 21.1 % (32.4-45.2); MCH 24.5 pg (25.7-33.7); MEAN CELL VOLUME 81.5 fl (80-96); MONO % 2.9 % (3.8-10.2); NEUT % 87.6 % (42.8-82.8); PLATELET COUNT 154 K/MM3 (134-434); RBC 2.59 M/mm3 (3.60-5.2); RDW 20.1 % (11.6-15.6); WHITE BLOOD COUNT 13.5 K/mm3 (4.0-10.0)
[2019-04-23 10:17] LABS: HEMOGLOBIN 6.3 GM/dL (10.7-15.3)
[2019-04-23 10:23] LABS: INR 1.31 (0.83-1.09); PROTHROMBIN TIME (PATIENT) 15.5 SEC (9.7-13.0)
[2019-04-23 10:25] LABS: ACTIVATED PTT 32.6 SECONDS (25.2-36.5)
--- NOTE | 2019-04-23 10:29 | PN ---
Progress Note, Physician Chief Complaint: EVENTS AND NOTES REVIEWED PATIENT NON-VERBAL TRACHEOSTOMY ON VENT. Patient is a 79 year old female who resides in [facility]. 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 Patient presents to the ED today with fevers, 102F, Afib w/ RVR 130s 150s. Patient is non verbal at baseline. Patient brought in as she has appears to be more fatigued at the SD. She was recently discharged from [facility] admitted (03/29-04/03) with similar presentation and evaluated by ID service. - Current Medication List Current Medications: Active Medications Acetaminophen (Ofirmev Injection -) 1,000 mg IVPB Q6H PRN PRN Reason: FEVER Stop: 04/23/19 20:55 Albuterol/Ipratropium (Duoneb -) 1 amp NEB RQID [facility] Last Admin: 04/23/19 08:46 Dose: Not Given Atorvastatin Calcium (Lipitor -) 80 mg PO HS [facility] Last Admin: 04/23/19 00:05 Dose: 80 mg Chlorhexidine Gluconate (Hibiclens For Decolonization -) 1 applic TP HS [facility] Last Admin: 04/23/19 00:03 Dose: 1 applic Lactated Ringer's (Lactated Ringers Solution) 1,000 ml in 1,000 mls @ 75 mls/ hr IV ASDIR [facility] Last Admin: 04/23/19 00:00 Dose: 75 mls/hr Insulin Aspart (Novolog Vial Sliding Scale -) 1 vial SQ Q4HPO [facility]; Protocol Last Admin: 04/23/19 10:14 Dose: 8 units Mupirocin (Bactroban Ointment (For Decolonization) -) 1 applic NS BID [facility] Stop: 04/27/19 21:59 Last Admin: 04/23/19 10:15 Dose: 1 applic Pantoprazole Sodium (Protonix Iv) 40 mg IVPUSH BID [facility] Last Admin: 04/23/19 10:11 Dose: 40 mg - Objective Vital Signs: Vital Signs Temperature 98.2 F 02/20/20 04:00 Pulse Rate 140 H 04/23/19 08:44 Respiratory Rate 16 04/23/19 08:44 Blood Pressure 88/54 L 04/23/19 08:00 O2 Sat by Pulse Oximetry (%) 100 04/23/19 08:44 Constitutional: Yes: Mild Distress Cardiovascular: Yes: Pulse Irregular Respiratory: Yes: Mechanically Ventilated (TRACHEOSTOMY) Gastrointestinal: Yes: Soft Genitourinary: Yes: [place] Present, Incontinence Musculoskeletal: Yes: Muscle Weakness Edema: LLE: 1+, RLE: 1+ Integumentary: Yes: Erythema, Rash, Venous Stasis Changes Wound/Incision: Yes: Excoriated, Unapproximated Neurological: Yes: Aphasia, Ataxia, Pre-Existing Deficit, Unsteady Gait, Weakness ...Motor Strength: LLE, RLE Psychiatric: Yes: Other Labs: CBC, BMP 04/23/19 09:45 INR, PTT INR 1.31 (0.83-1.09) H 04/23/19 09:45 Problem List - Problems (1) History of CVA (cerebrovascular accident) Code(s): Z86.73 - PRSNL HX OF TIA (TIA), AND CEREB INFRC W/O RESID DEFICITS (2) CONOR (acute kidney injury) Code(s): N17.9 - ACUTE KIDNEY FAILURE, UNSPECIFIED (3) Anemia Code(s): D64.9 - ANEMIA, UNSPECIFIED (4) Atrial fibrillation with RVR Code(s): I48.91 - UNSPECIFIED ATRIAL FIBRILLATION (5) NSTEMI (non-ST elevated myocardial infarction) Code(s): I21.4 - NON-ST ELEVATION (NSTEMI) MYOCARDIAL INFARCTION (6) Septic shock Code(s): A41.9 - SEPSIS, UNSPECIFIED ORGANISM; R65.21 - SEVERE SEPSIS WITH SEPTIC SHOCK (7) Severe sepsis Code(s): A41.9 - SEPSIS, UNSPECIFIED ORGANISM; R65.20 - SEVERE SEPSIS WITHOUT SEPTIC SHOCK (8) Stage 4 skin ulcer of sacral region Code(s): L98.429 - NON-PRESSURE CHRONIC ULCER OF BACK WITH UNSPECIFIED SEVERITY (9) Diastolic dysfunction Code(s): I51.89 - OTHER ILL-DEFINED HEART DISEASES (10) Guaiac + stool Code(s): R19.5 - OTHER FECAL ABNORMALITIES (11) Sacral decubitus ulcer Code(s): L89.159 - PRESSURE ULCER OF SACRAL REGION, UNSPECIFIED STAGE Qualifiers: Pressure injury stage: stage 4 Qualified Code(s): L89.154 - Pressure ulcer of sacral region, stage 4 (12) Ventilator dependent Code(s): Z99.11 - DEPENDENCE ON RESPIRATOR [VENTILATOR] STATUS (13) Atrial fibrillation Code(s): I48.91 - UNSPECIFIED ATRIAL FIBRILLATION Qualifiers: Atrial fibrillation type: permanent Qualified Code(s): I48.21 - Permanent atrial fibrillation (14) COPD (chronic obstructive pulmonary disease) Code(s): J44.9 - CHRONIC OBSTRUCTIVE PULMONARY DISEASE, UNSPECIFIED Qualifiers: COPD type: unspecified COPD Qualified Code(s): J44.9 - Chronic obstructive pulmonary disease, unspecified (15) Diabetes mellitus Code(s): E11.9 - TYPE 2 DIABETES MELLITUS WITHOUT COMPLICATIONS Qualifiers: Diabetes mellitus type: type 2 Diabetes mellitus extermination inspector insulin use: without extermination inspector use Diabetes mellitus complication status: without complication Qualified Code(s): E11.9 - Type 2 diabetes mellitus without complications (16) H/O mitral valve replacement Code(s): Z95.2 - PRESENCE OF PROSTHETIC HEART VALVE (17) Lung nodule Code(s): R91.1 - SOLITARY PULMONARY NODULE (18) Pacemaker Code(s): Z95.0 - PRESENCE OF CARDIAC PACEMAKER Assessment/Plan SEVERE SEPSIS WITH HEMATOCHEZIA IN ICU ON VENT SUPPORT AND BP SUPPORT PRBC TRANSFUSION IVF NPO GI CONSULT RENAL/PULM EVAL ADVANCED DIRECTIVES NEED TO BE REVIEWED WITH HCP POOR OVERALL QUALITY OF LIFE PATIENT IS FULL CODE CONTINUE ALL LIFE SAVING EFFORTS FOR NOW.
[2019-04-23] MEDS ORDERED: VASOPRESSIN 20 UNITS/ML VIAL IV ONE (10:34)
[2019-04-23 10:46] LABS: ALBUMIN 1.3 g/dl (3.4-5.0); BILIRUBIN,TOTAL 0.2 mg/dL (0.2-1); CALCIUM 7.6 mg/dL (8.5-10.1); CREATININE 1.6 mg/dL (0.55-1.3); PHOSPHOROUS 3.8 mg/dL (2.5-4.9); POTASSIUM 3.3 mmol/L (3.5-5.1); TOT PROT 5.1 g/dl (6.4-8.2)
[2019-04-23 10:54] LABS: BLOOD UREA NITROGEN 106.6 mg/dL (7-18)
--- NOTE | 2019-04-23 12:31 | PN ---
Teaching Attending Note Name of Resident: Curtis Brown ATTENDING PHYSICIAN STATEMENT I saw and evaluated the patient. I reviewed the resident's note and discussed the case with the resident. I agree with the resident's findings and plan as documented. SUBJECTIVE: Pt seen and examined in the ICU. Vented, poorly responsive. More hypotensive this AM despite IVF resuscitation. Central line placed and to start pressors. OBJECTIVE: Vital Signs Period Temp Pulse Resp BP Sys/[place]kee[place] Pulse Ox Last 24 Hr 97.6 F-102.3 F 77-163 14-32 84-107/43-83 99-100 Intake & Output 04/20/19 04/21/19 04/22/19 04/23/19 23:59 23:59 23:59 23:59 Intake Total 1800 Output Total 600 Balance 1200 Weight 68.492 kg 70.874 kg Gen: vented, poorly responsive Heart: irregular Lung: scattered rhonchi Abd: soft, nontender Ext: + edema Back: stage IV sacral ulcer with granulation tissue CBC, BMP 04/23/19 09:45 04/23/19 09:45 Active Medications Acetaminophen (Ofirmev Injection -) 1,000 mg IVPB Q6H PRN PRN Reason: FEVER Stop: 04/23/19 20:55 Albuterol/Ipratropium (Duoneb -) 1 amp NEB RQID [facility] Last Admin: 04/23/19 12:19 Dose: Not Given Atorvastatin Calcium (Lipitor -) 80 mg PO [facility] Last Admin: 04/23/19 00:05 Dose: 80 mg Chlorhexidine Gluconate (Hibiclens For Decolonization -) 1 applic TP HS [facility] Last Admin: 04/23/19 00:03 Dose: 1 applic Lactated Ringer's (Lactated Ringers Solution) 1,000 ml in 1,000 mls @ 75 mls/ hr IV ASDIR [facility] Last Admin: 04/23/19 00:00 Dose: 75 mls/hr Insulin Aspart (Novolog Vial Sliding Scale -) 1 vial SQ Q4HPO [facility]; Protocol Last Admin: 04/23/19 10:14 Dose: 8 units Mupirocin (Bactroban Ointment (For Decolonization) -) 1 applic NS BID [facility] Stop: 04/27/19 21:59 Last Admin: 04/23/19 10:15 Dose: 1 applic Pantoprazole Sodium (Protonix Iv) 40 mg IVPUSH BID [facility] Last Admin: 04/23/19 10:11 Dose: 40 mg ASSESSMENT AND PLAN: UTI r/o Pneumonia r/o Sacral Decubitus Ulcer Infection Septic Shock GI Bleed likely Upper Acute Blood Loss Anemia Atrial Fibrillation with RVR CAD COPD HTN DM h/o CVA - IV antibiotics per ID - f/u cultures - IVF boluses to keep CVP 8-12 - pressors to maintain MAP >65 - protonix - transfuse PRBC - monitor H/H - hold anticoagulation - rate control - continue volume assist control - NPO - DVT/GI prophylaxis - ICU monitoring for hemodynamic instability critical care time spent in reviewing chart, evaluating patient and formulating plan 35 min
[2019-04-23] MEDS ORDERED: VASOPRESSIN 50 UNITS in SODIUM CHLORIDE 97.5 ML IVPB SCH (12:45)
--- NOTE | 2019-04-23 12:49 | PROC ---
<Curtis Brown - Last Filed: 04/23/19 12:49> Central Line Insertion Indication: Poor Venous Access, Sepsis, Vasopressor Risks and Benefits Explained: Yes Consent on Chart: Yes Central Line: Triple Lumen Catheter Anesthesia: 1% Lidocaine Sterile Technique: Yes Ultrasound Guided Assistance: Yes Position: Right Internal Jugular Post Insertion: Yes: Chest X-Ray Ordered Sterile Dressing Applied: Yes <Eliseo Marie MD - Last Filed: 04/23/19 15:04> Procedure Note Procedure: I supervised and was present during the entire procedure. Eliseo Marie MD
--- NOTE | 2019-04-23 13:08 | PN ---
Physical Exam: SUBJECTIVE: Patient seen and examined O/N: admitted for UTI sepsis, MAPs downtrending in the AM which prompted central line placement - trach and nonverbal OBJECTIVE: Vital Signs Period Temp Pulse Resp BP Sys/[place] Pulse Ox Last 24 Hr 97.6 F-102.3 F 77-163 14-32 84-107/43-83 99-100 GENERAL: arousable but does not follow commands. Brief eye contact HEAD: Normal with no signs of trauma. EYES: PERRLA, EOMI ENT: Ears normal, nares patent, oropharynx clear without exudates. Moist mucous membranes. NECK: trach in place without evidence of infection, normal appearing borders, trach-vent LUNGS: vented, coarse breath sounds in all lung waller HEART: tachycardic, normal S1 and S2 without murmur, rub or gallop. ABDOMEN: PEG in place, soft, nontender, not distended, no guarding, no rebound, no masses. RECTAL: josr-colored coagulated blood per rectum MUSCULOSKELETAL: Normal range of motion at all joints. No bony deformities or tenderness. LOWER EXTREMITIES: 2+ pulses, warm, well-perfused. No calf tenderness. No peripheral edema. NEUROLOGICAL: limited 2/2 mental status, does not follow commands PSYCHIATRIC: opens eyes during examination SKIN: sacral debridement wound ~11x8cm in diameter with depth to the bone, fibrinous tissue at the bases with no evidence of bleeding or purulence Laboratory Results - last 24 hr 04/22/19 04/22/19 04/22/19 14:29 14:40 14:42 WBC RBC Hgb Hct MCV MCH MCHC RDW Plt Count MPV Absolute Neuts (auto) Neutrophils % Lymphocytes % Monocytes % Eosinophils % Basophils % Nucleated RBC % PT with INR INR PTT (Actin FS) VBG pH 7.42 H POC VBG pCO2 39.6 POC VBG pO2 < 49 H VBG HCO3 25.3 VBG O2 Sat (Dylan) 75 VBG Base Excess 1.3 Sodium Potassium Chloride Carbon Dioxide Anion Gap BUN Creatinine Est GFR (CKD-EPI)AfAm Est GFR (CKD-EPI)NonAf POC Glucometer Random Glucose Lactic Acid 2.1 H Calcium Phosphorus Magnesium Total Bilirubin AST ALT Alkaline Phosphatase Creatine Kinase Troponin I B-Natriuretic Peptide 7435.2 H Total Protein Albumin Urine Color Urine Appearance Urine pH Ur Specific [place] Urine Protein Urine Glucose (UA) Urine Ketones Urine Blood Urine Nitrite Urine Bilirubin Urine Urobilinogen Ur Leukocyte Esterase Urine WBC (Auto) Urine RBC (Auto) Urine Casts (Auto) U Pathogenic Cast Auto U Epithel Cells (Auto) Urine Crystals (Auto) Urine Bacteria (Auto) Stool Occult Blood Influenza A (Rapid) Influenza B (Rapid) Blood Type Antibody Screen Crossmatch 04/22/19 04/22/19 04/22/19 14:45 14:45 14:45 WBC 14.2 H RBC 3.18 L Hgb 7.7 L Hct 26.1 L MCV 82.2 MCH 24.1 L MCHC 29.4 L RDW 20.8 H Plt Count 173 MPV 12.9 H D Absolute Neuts (auto) 11.4 H Neutrophils % 80.1 Lymphocytes % 13.6 D Monocytes % 5.9 Eosinophils % 0.2 D Basophils % 0.2 Nucleated RBC % 0 PT with INR 16.60 H INR 1.40 H PTT (Actin FS) 40.1 H VBG pH POC VBG pCO2 POC VBG pO2 VBG HCO3 VBG O2 Sat (Dylan) VBG Base Excess Sodium 153 H Potassium 4.5 Chloride 121 H Carbon Dioxide 25 Anion Gap 8 BUN 112.9 H* Creatinine 1.7 H Est GFR (CKD-EPI)AfAm 33.13 Est GFR (CKD-EPI)NonAf 28.59 POC Glucometer Random Glucose 419 H* Lactic Acid Calcium 7.8 L Phosphorus Magnesium Total Bilirubin 0.3 AST 166 H ALT 180 H Alkaline Phosphatase 401 H Creatine Kinase 38 Troponin I 0.13 H B-Natriuretic Peptide Total Protein 6.0 L Albumin 1.4 L Urine Color Urine Appearance Urine pH Ur Specific [place] Urine Protein Urine Glucose (UA) Urine Ketones Urine Blood Urine Nitrite Urine Bilirubin Urine Urobilinogen Ur Leukocyte Esterase Urine WBC (Auto) Urine RBC (Auto) Urine Casts (Auto) U Pathogenic Cast Auto U Epithel Cells (Auto) Urine Crystals (Auto) Urine Bacteria (Auto) Stool Occult Blood Influenza A (Rapid) Influenza B (Rapid) Blood Type Antibody Screen Crossmatch 04/22/19 04/22/19 04/22/19 15:23 16:00 17:00 WBC RBC Hgb Hct MCV MCH MCHC RDW Plt Count MPV Absolute Neuts (auto) Neutrophils % Lymphocytes % Monocytes % Eosinophils % Basophils % Nucleated RBC % PT with INR INR PTT (Actin FS) VBG pH POC VBG pCO2 POC VBG pO2 VBG HCO3 VBG O2 Sat (Dylan) VBG Base Excess Sodium Potassium Chloride Carbon Dioxide Anion Gap BUN Creatinine Est GFR (CKD-EPI)AfAm Est GFR (CKD-EPI)NonAf POC Glucometer Random Glucose Lactic Acid Calcium Phosphorus Magnesium Total Bilirubin AST ALT Alkaline Phosphatase Creatine Kinase Troponin I B-Natriuretic Peptide Total Protein Albumin Urine Color Dk yellow Urine Appearance Turbid Urine pH 5.0 D Ur Specific [place] 1.020 Urine Protein 1+ H Urine Glucose (UA) Negative Urine Ketones Trace H Urine Blood 3+ H Urine Nitrite Negative Urine Bilirubin Negative Urine Urobilinogen 1.0 Ur Leukocyte Esterase 3+ H Urine WBC (Auto) 301 Urine RBC (Auto) 506 Urine Casts (Auto) 79 U Pathogenic Cast Auto None seen U Epithel Cells (Auto) 35.1 Urine Crystals (Auto) Moderate Urine Bacteria (Auto) 147.0 Stool Occult Blood Trace Influenza A (Rapid) Negative Influenza B (Rapid) Negative Blood Type Antibody Screen Crossmatch 04/22/19 04/22/19 04/23/19 21:50 21:50 00:17 WBC RBC Hgb Hct MCV MCH MCHC RDW Plt Count MPV Absolute Neuts (auto) Neutrophils % Lymphocytes % Monocytes % Eosinophils % Basophils % Nucleated RBC % PT with INR INR PTT (Actin FS) VBG pH POC VBG pCO2 POC VBG pO2 VBG HCO3 VBG O2 Sat (Dylan) VBG Base Excess Sodium Potassium Chloride Carbon Dioxide Anion Gap BUN Creatinine Est GFR (CKD-EPI)AfAm Est GFR (CKD-EPI)NonAf POC Glucometer 409 Random Glucose Lactic Acid 2.1 H Calcium Phosphorus Magnesium Total Bilirubin AST ALT Alkaline Phosphatase Creatine Kinase 39 Troponin I 0.11 H B-Natriuretic Peptide Total Protein Albumin Urine Color Urine Appearance Urine pH Ur Specific [place] Urine Protein Urine Glucose (UA) Urine Ketones Urine Blood Urine Nitrite Urine Bilirubin Urine Urobilinogen Ur Leukocyte Esterase Urine WBC (Auto) Urine RBC (Auto) Urine Casts (Auto) U Pathogenic Cast Auto U Epithel Cells (Auto) Urine Crystals (Auto) Urine Bacteria (Auto) Stool Occult Blood Influenza A (Rapid) Influenza B (Rapid) Blood Type Antibody Screen Crossmatch 04/23/19 04/23/19 04/23/19 06:37 09:34 09:45 WBC 13.5 H RBC 2.59 L Hgb 6.3 L* Hct 21.1 L D MCV 81.5 MCH 24.5 L MCHC 30.0 L RDW 20.1 H Plt Count 154 MPV 12.0 H Absolute Neuts (auto) 11.8 H Neutrophils % 87.6 H Lymphocytes % 8.0 D Monocytes % 2.9 L Eosinophils % 1.2 D Basophils % 0.3 Nucleated RBC % 0 PT with INR INR PTT (Actin FS) VBG pH POC VBG pCO2 POC VBG pO2 VBG HCO3 VBG O2 Sat (Ydlan) VBG Base Excess Sodium Potassium Chloride Carbon Dioxide Anion Gap BUN Creatinine Est GFR (CKD-EPI)AfAm Est GFR (CKD-EPI)NonAf POC Glucometer 335 303 Random Glucose Lactic Acid Calcium Phosphorus Magnesium Total Bilirubin AST ALT Alkaline Phosphatase Creatine Kinase Troponin I B-Natriuretic Peptide Total Protein Albumin Urine Color Urine Appearance Urine pH Ur Specific [place] Urine Protein Urine Glucose (UA) Urine Ketones Urine Blood Urine Nitrite Urine Bilirubin Urine Urobilinogen Ur Leukocyte Esterase Urine WBC (Auto) Urine RBC (Auto) Urine Casts (Auto) U Pathogenic Cast Auto U Epithel Cells (Auto) Urine Crystals (Auto) Urine Bacteria (Auto) Stool Occult Blood Influenza A (Rapid) Influenza B (Rapid) Blood Type Antibody Screen Crossmatch 04/23/19 04/23/19 04/23/19 09:45 09:45 10:55 WBC RBC Hgb Hct MCV MCH MCHC RDW Plt Count MPV Absolute Neuts (auto) Neutrophils % Lymphocytes % Monocytes % Eosinophils % Basophils % Nucleated RBC % PT with INR 15.50 H INR 1.31 H PTT (Actin FS) 32.6 VBG pH POC VBG pCO2 POC VBG pO2 VBG HCO3 VBG O2 Sat (Dylan) VBG Base Excess Sodium 154 H Potassium 3.3 L Chloride 122 H Carbon Dioxide 23 Anion Gap 9 BUN 106.6 H* Creatinine 1.6 H Est GFR (CKD-EPI)AfAm 35.65 Est GFR (CKD-EPI)NonAf 30.76 POC Glucometer Random Glucose 316 H Lactic Acid Calcium 7.6 L Phosphorus 3.8 Magnesium 3.0 H Total Bilirubin 0.2 AST 62 H ALT 121 H Alkaline Phosphatase 278 H Creatine Kinase Troponin I B-Natriuretic Peptide Total Protein 5.1 L Albumin 1.3 L Urine Color Urine Appearance Urine pH Ur Specific [place] Urine Protein Urine Glucose (UA) Urine Ketones Urine Blood Urine Nitrite Urine Bilirubin Urine Urobilinogen Ur Leukocyte Esterase Urine WBC (Auto) Urine RBC (Auto) Urine Casts (Auto) U Pathogenic Cast Auto U Epithel Cells (Auto) Urine Crystals (Auto) Urine Bacteria (Auto) Stool Occult Blood Influenza A (Rapid) Influenza B (Rapid) Blood Type O POSITIVE Antibody Screen Negative Crossmatch See Detail Active Medications Generic Name Dose Route Start Last Admin Trade Name Freq PRN Reason Stop Dose Admin Acetaminophen 1,000 mg 04/22/19 20:55 Ofirmev Injection - IVPB 04/23/19 20:55 Q6H PRN FEVER Albuterol/Ipratropium 1 amp 04/22/19 20:00 04/23/19 12:19 Duoneb - NEB Not Given RQID [facility] Atorvastatin Calcium 80 mg 04/22/19 22:00 04/23/19 00:05 Lipitor - PO 80 mg HS [facility] Administration Chlorhexidine Gluconate 1 applic 04/22/19 22:00 04/23/19 00:03 Hibiclens For Decolonization - TP 1 applic HS [facility] Administration Lactated Ringer's 1,000 ml in 1,000 mls @ 75 mls/hr 04/22/19 22:30 04/23/19 00:00 Lactated Ringers Solution IV 75 mls/hr ASDIR [facility] Administration Vasopressin 50 units/ Sodium 100 mls @ 4 mls/hr 04/23/19 12:45 Chloride IVPB ASDIR [facility] Protocol 2 UNITS/HR Pantoprazole Sodium 80 mg/ 100 mls @ 10 mls/hr 04/23/19 12:34 Sodium Chloride IVPB 04/26/19 12:34 Q10H [facility] 8 MG/HR Insulin Aspart 1 vial 04/23/19 02:00 04/23/19 10:14 Novolog Vial Sliding Scale - SQ 8 units Q4HPO [facility] Administration Protocol Mupirocin 1 applic 04/22/19 22:00 04/23/19 10:15 Bactroban Ointment (For Decolonization) - NS 04/27/19 21:59 1 applic BID [facility] Administration ASSESSMENT/PLAN: 79 y/o female with hx of CAD, Afib (on Eliquis), sick sinus syndrome (s/p PPM), DMII, HTN, COPD, remote history of GI bleed, colonic angiodysplasia, sigmoid diverticulosis, internal hemorrhoids, CVA (RUE/LE paralysis, non verbal), chronic respiratory failure (s/p trach-vent dependent), chronic stage 4 sacral ulcer, presenting from [facility] for T 102.3 and Afib with RVR with concern for septic shock with source of pna vs uti vs sacral ulcer. Having Neuro: -arouses to stimulus but does not respond or follow commands Cardio: -Afib with RVR s/p 10mg cardizem; HR 140s-150s BP 80s/60s -EKG: afib with rvr, no hilton/d -ED: s/p 3L ivf -trop 0.13, 0.11 -BNP 7435 -CVC and pressors for HDS support -amiodarone gtt for persistent RVR Pulm: -trach and vent dependent with sats 100% -CXR: bibasilar pleural effusions with atelectasis vs infiltrate, L>R -empiric abx GI: -PEG in place -NPO # GIB w/ blood per rectum and high BUN - pRBC x1, fu post-transfusion CBC - pantoprazole BID - GI(DiGornio) consult: --suspect small bowel ectasias --cw Protonix 40mg BID --will discuss w/ family about rpt colonoscopy once HR improves HEME: # normocytic anemia --possibly 2/2 GIB - pRBC x2 - fu post-transfusion CBC Renal: -CONOR Cr 1.7 BUN 112.9 -UA: turbid appearance with 3+leuks, bacteria and WBC -s/p IVF 3L -empiric abx(vanc, zosyn, meropenem, levofloxacin, daptomycin) ID: -tmax 102.3 s/p tylenol T 102 -empiric abx(vanc, zosyn, meropenem, levofloxacin, daptomycin) -f/u Ucx, Bcx, stool Cx, cdiff -1 bottle of BCX growing gram posit cocci in clusters -ID(Isac) consult: --empiric nohemi + vanc Wound: -sacral decubitus debridement site, does not appear infected -daily wound care Dispo: We will continue to follow the patient. Thank you for this consultative opportunity. HCP is daughter, however, after ED convo with daughter, she states she relinquishes authority to her father to make decision regarding code status. After discussion with Mr Laboy, states he would like full code Visit type - Emergency Visit Emergency Visit: No - New Patient This patient is new to me today: No - Critical Care Critical Care patient: Yes Total Critical Care Time (in minutes): 35 Critical Care Statement: The care of this patient involved high complexity decision making to prevent further life threatening deterioration of the patient 's condition and/or to evaluate & treat vital organ system(s) failure or risk of failure. ATTENDING PHYSICIAN STATEMENT I saw and evaluated the patient. I reviewed the resident's note and discussed the case with the resident. I agree with the resident's findings and plan as documented. SUBJECTIVE: OBJECTIVE: ASSESSMENT AND PLAN:
[2019-04-23] MEDS ORDERED: NOREPINEPHRINE BITARTRATE 8,000 MCG in DEXTROSE 5%-WATER - 492 ML IV SCH ×2 (13:15→13:45)
--- NOTE | 2019-04-23 14:16 | EKG ---
Test Reason : Blood Pressure : / mmHG Vent. Rate : 154 BPM Atrial Rate : 159 BPM P-R Int : 000 ms QRS Dur : 070 ms QT Int : 288 ms P-R-T Axes : 000 014 -86 degrees QTc Int : 461 ms ATRIAL FIBRILLATION WITH RAPID VENTRICULAR RESPONSE LOW VOLTAGE QRS NONSPECIFIC T WAVE ABNORMALITY ABNORMAL ECG WHEN COMPARED WITH ECG OF 29-MAR-2019 18:41, ATRIAL FIBRILLATION HAS REPLACED ATRIAL FLUTTER NON-SPECIFIC CHANGE IN ST SEGMENT IN ANTERIOR LEADS Confirmed by JOANN MARTINEZ MD ([id number]) on 04/23/2019 2:16:01 PM Referred By: Confirmed By:JOANN MARTINEZ MD
--- NOTE | 2019-04-23 14:19 | EKG ---
Test Reason : Blood Pressure : / mmHG Vent. Rate : 161 BPM Atrial Rate : 026 BPM P-R Int : 000 ms QRS Dur : 066 ms QT Int : 292 ms P-R-T Axes : 000 023 093 degrees QTc Int : 477 ms ATRIAL FIBRILLATION WITH RAPID VENTRICULAR RESPONSE LOW VOLTAGE QRS NONSPECIFIC T WAVE ABNORMALITY ABNORMAL ECG WHEN COMPARED WITH ECG OF 29-MAR-2019 18:41, ATRIAL FIBRILLATION HAS REPLACED ATRIAL FLUTTER Confirmed by JUAN KAM, JOANN ([id number]) on 04/23/2019 2:19:10 PM Referred By: Confirmed By:JOANN MARTINEZ MD
[2019-04-23] MEDS ORDERED: INSULIN (NOVOLOG) ASPART 100 UNITS/ML 10ML VIAL ONE (14:37)
[2019-04-23] MEDS ORDERED: NOREPINEPHRINE BITARTRATE 4 MG/4 ML ML IV ONE (14:39)
[2019-04-23] MEDS: PANTOPRAZOLE SODIUM 80 MG in SODIUM CHLORIDE 100 ML IVPB SCH (14:42)
[2019-04-23] MEDS: NOREPINEPHRINE BITARTRATE 8,000 MCG in SODIUM CHLORIDE 492 ML IV SCH (14:42)
--- NOTE | 2019-04-23 15:57 | PN ---
Progress Note (short form) - Note Progress Note: ID CONSULT DICTATED SEPTIC SHOCK + BC R/O STAPH SEPSIS RAPID A FIB CHR RESP FAILURE AZOTEMIA HX MDRO AWAIT SEPSIS W/U EMPIRIC MEROPENEM/VANCO
--- NOTE | 2019-04-23 16:14 | CONS ---
INFECTIOUS DISEASE CONSULTATION DATE OF CONSULTATION: DATE OF DICTATION: 04/23/2019 HISTORY: A 79-year-old female evaluated for septic shock. History obtained from the chart as she cannot give a history. She was admitted from the [facility] after she was noted to have tachycardia and fever. The patient was found to have atrial fibrillation with rapid ventricular response. In the emergency room, temperature was elevated at 101. She was also noted to be hypotensive. She was treated with IV fluid hydration. At the present time, she is in the intensive care unit hypotensive on pressors. Blood cultures are now positive for gram-positive cocci in clusters 1 bottle. She has a history of recent hospital admissions complicated by sepsis secondary to large sacral decubitus ulcer, urinary tract, and pneumonia. She has had multidrug-resistant organisms isolated from various sites including a sacral wound, sputum, and urine. She has had a history of ESBL. PAST MEDICAL HISTORY: Positive for dementia, chronic respiratory failure on mechanical ventilation, stage 4 sacral decubitus ulcer, diabetes mellitus, hypertension, COPD, stroke, chronic kidney disease, coronary artery disease, atrial fibrillation. PAST SURGICAL HISTORY: Status post tracheostomy, permanent pacemaker. ALLERGIES: No known allergies. MEDICATIONS: Include Tylenol, albuterol, Lipitor, daptomycin, diltiazem, Levaquin, meropenem, vancomycin, Zosyn. SOCIAL HISTORY: Resides in a group home facility. Dependent in activities of daily living. LABORATORY DATA: White count 13.5, hematocrit 21.1, platelets 154, total bilirubin 0.2, alkaline phosphatase 278, AST 62. Urinalysis, 301 white cells. Creatinine 1.6. Chest x-ray shows increased markings at the lower lung waller bilaterally. PHYSICAL EXAMINATION: General: On exam, she is not verbally responsive. Vital Signs: Temperature 97.8, maximum temperature 102.3, blood pressure 116/60, pulse 117, respirations 20 per minute. HEENT: Sclerae anicteric. Patient is status post tracheostomy. Heart: Tachycardic. S1, S2. Lungs: Air entry bilaterally. Abdomen: Obese, soft, nontender. Extremities: Positive for edema. Stage 4 sacral decubitus ulcer. IMPRESSION: 1. Sepsis/septic shock. 2. Rapid atrial fibrillation. 3. Azotemia. 4. Chronic respiratory failure. 5. History of multidrug-resistant organisms. PLAN: Continue meropenem plus vancomycin for coverage of possible recurrent multidrug-resistant organisms. Continue IV fluid hydration, pressors. Potential sources for infection include sacral decubitus ulcer, urinary tract, and lung source. Prognosis is guarded. Thank you for the kind referral. SHARMAINE PARR M.D. [id number]
[2019-04-23] MEDS ORDERED: VANCOMYCIN 1 GRAM (PRE-DOCKED) 1,000 MG/250 ML BAG IVPB SCH (16:15)
[2019-04-23] MEDS ORDERED: MEROPENEM 1 GM VIAL (RESTRICTED TO ID) IVPB ONE (16:49)
[2019-04-23] MEDS ORDERED: DEXTROSE 5%-WATER 100 ML IVPB ONE (16:49)
[2019-04-23] MEDS: LACTATED RINGERS SOLUTION 1,000 ML/1,000 ML INFUS.BAG IV SCH (18:00)
[2019-04-23] MEDS: MEROPENEM 1 GM in DEXTROSE 5%-WATER 100 ML IVPB SCH (18:04)
--- NOTE | 2019-04-23 18:48 | CON.GI ---
Consult Consult Specialty:: GI Referred by:: Hospitalist Service Reason for Consultation:: Anemia - History of Present Illness Chief Complaint: Patient non verbal on vent History of Present Illness: History per H&P. 79 F admitted from [place] for evaluation of worsening fatugue, fevers, noted to be in A. Fib w/ RVR. Watery brown diarrhea noted in H&P. Bleeding was not described in H&P. Asked to evaluate for anemia. Nurse states that there was blood in Ms. Spivey's diaper today but it was uncertain where it came from. She is receiving a 2nd U PRBC. Hgb was 6.3 this morning. She is on eliquis. ? timing of last dose (ter morning vs. saturday evening, nurse was uncertain). She continues to be in A. Fib w/ RVR. She had EGD/ colonoscopy 07/[address] Aquino: EGD revealed gastritis while colonoscopy revealed a large cecal angiodysplastic lesion, colon polyps and mild diverticulosis in the sigmoid colon. Capsule endoscopy was recommended at that time for further evaluaiton of anemia. She had an upper endoscopy 02/18/[address] Lindsay Machuca for anemia. It was essentially unrevealing. she had discussed colonoscopy with Ms. Spivey's daiughter, however she opted for conservative measures. No further bleeding reported. 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), Other (PPM) Pulmonary: Yes: COPD, Previously Intubated (chronic vent-dependent/trached) Gastrointestinal: Yes: Diverticulosis, GI Bleed (recent bleed felt to be 2ndary to vascular ectasias), Other (07/19 four adenomatous tx colon polyps resected, cecal angiodysplasias seen.) Hepatobiliary: Yes: Cirrhosis (wound) Renal/: Yes: Renal Inusuff, UTI, Other (chronic [place]) Infectious Disease: Yes: Other (multidrug resistant organisms) Musculoskeletal: Yes: Osteoarthritis, Other (R sided weakness from CVA) Rheumatology: Yes: Other (osteoarthritis) Endocrine: Yes: Diabetes Mellitus Additional Medical History: stage 4 sacral decubitus - Past Surgical History Past Surgical History: Yes: Colonoscopy, Permanent Pacemaker, Upper Endoscopy, Valve Replacement (mitral annuloplasty) - Alcohol/Substance Use Hx Alcohol Use: No History of Substance Use: reports: None - Smoking History Smoking history: Smoker current status UNK Have you smoked in the past 12 months: No If you are a former smoker, when did you quit?: 2007 - Social History Usual Living Arrangement: Prison (previously with spouse) ADL: Support Services 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 History of Recent Travel: No Home Medications - Allergies Allergies/Adverse Reactions: Allergies Allergy/AdvReac Type Severity Reaction Status Date / Time No Known Allergies Allergy Verified 03/29/19 18:17 - Home Medications Home Medications: Ambulatory Orders Atorvastatin Ca [Lipitor] 80 mg PO HS tablet 07/26/17 Fluoxetine HCl Liquid [Prozac 20mg/5mL Oral Solution -] 20 mg PO DAILY 04/28/18 Metoprolol Tartrate [Lopressor -] 75 mg GT TID 04/28/18 Albuterol 0.083% Nebulizer Sandrita [Ventolin 0.083% Nebulizer Soln -] 1 amp NEB Q4H PRN amp 02/23/19 Nystatin Powder [Nystop Powder -] 1 applic TP TID applic 02/23/19 Ferrous Sulfate [Feosol] 300 mg GT BID udc 03/03/19 Apixaban [Eliquis -] 5 mg PEG BID tablet 03/20/19 Insulin (Levemir) [Levemir Vial] 10 units SQ AM units 03/20/19 Acetaminophen [Tylenol .Regular Strength -] 650 mg GT Q6H PRN 03/29/19 Ascorbic Acid [Vitamin C] 500 mg GT DAILY 03/29/19 Pantoprazole Suspension [Protonix Packets For Oral Suspension -] 160 mg PEG DAILY 03/29/19 Zinc Sulfate 220 mg GT DAILY 03/29/19 Acetaminophen Liquid [Tylenol 100mg/mL *Infant Drops* -] 650 mg GT Q4H PRN ml 04/02/19 Albuterol 2.5/Ipratropium 0.5 [Duoneb -] 1 amp NEB Q4H PRN amp 04/02/19 Amino Acids/Protein Hydrolys [Prosource No Carb Liquid Pkt] 30 ml GT BID@0800, 1730 packet 04/02/19 Amoxicillin/Potassium Clav [Augmentin 875-125 Tablet] 1 each PO BID #14 tablet 04/02/19 Ascorbic Acid [Vitamin C -] 500 mg GT DAILY tablet 04/02/19 Diltiazem [Cardizem -] 30 mg PO TID tablet 04/02/19 Famotidine [Pepcid] 20 mg NGT BID oral.susp 04/02/19 Ferrous Sulfate [Feosol] 300 mg GT BID udc 04/02/19 Insulin Sliding Scale [Novolog Vial Sliding Scale -] 1 vial SQ TIDAC units Metoprolol Tartrate [Lopressor -] 75 mg GT TID tablet 04/02/19 Multivit-Minerals [Certavite-Antioxidant Liquid] 15 ml GT DAILY cup 04/02/19 Sitagliptin Phosphate [Januvia -] 50 mg NR DAILY@0700 tablet 04/02/19 Zinc Sulfate [Orazinc -] 220 mg GT DAILY capsule 04/02/19 Family Medical History Family History: Unable to Obtain Review of Systems Unable to obtain ROS, reason: Patient on vent Physical Exam-GI Vital Signs: Vital Signs Temperature 97.8 F 04/23/19 18:00 Pulse Rate 135 H 04/23/19 18:04 Respiratory Rate 20 04/23/19 18:00 Blood Pressure 110/54 L 04/23/19 18:04 O2 Sat by Pulse Oximetry (%) 100 04/23/19 10:00 Constitutional: Yes: Calm Eyes: No: Sclera Icterus Cardiovascular: Yes: Tachycardia, Pulse Irregular Respiratory: Yes: Diminished (at bases bilaterally with poor insp effort) Gastrointestinal Inspection: Yes: Other (G-Tube in place). No: Distention ...Auscultate: Yes: Normoactive Bowel Sounds ...Palpate: No: Tenderness (No grimacing upon palpation) ...Rectal Exam: Yes: Other (No external lesions, no masses, no blood, liquid green stool in rectal vault) Labs: CBC, BMP 04/23/19 09:45 04/23/19 09:45 INR, PTT INR 1.31 (0.83-1.09) H 04/23/19 09:45 Problem List - Problems (1) Anemia Assessment/Plan: Recent unrevealing upper endoscopy 2017 and 02/19. Colonosocpy with large vascular ectasia. Given valvular heart disease, suspect that there will be other ectasias in her small bowel as well. Called and left message to discuss things with the patient's daughter and see if she wants her mother undergoing repeat colonoscopy when heart rate permits. For now, monitor for overt GI bleeding No melena reported. Continue Protonix 40mg BID Supportive measures per ICU team Transfuse to keep Hgb > 8 given cardiac history Code(s): D64.9 - ANEMIA, UNSPECIFIED
[2019-04-23 20:21] LABS: HEMATOCRIT 29.7 % (32.4-45.2); HEMOGLOBIN 9.3 GM/dL (10.7-15.3); MCH 25.6 pg (25.7-33.7); MCHC 31.1 g/dl (32.0-36.0); MEAN CELL VOLUME 82.3 fl (80-96); MEAN PLT VOLUME 12.7 fl (7.5-11.1); PLATELET COUNT 164 K/MM3 (134-434); RBC 3.61 M/mm3 (3.60-5.2); RDW 18.1 % (11.6-15.6); WHITE BLOOD COUNT 20.9 K/mm3 (4.0-10.0)
[2019-04-23] MEDS: KCL 10 MEQ IVPB 10 MEQ/100 ML INFUS.BAG IVPB SCH ×3 (20:43→22:45)
[2019-04-23] MEDS ORDERED: ALBUTEROL SO4 2.5/IPRATROPIUM 0.5 INH SOL 3 ML VIAL.NEB. NEB ONE (20:45)
[2019-04-23] MEDS: NYSTATIN 100,000 UNIT/GM TOPICAL CREAM 15 GM TUBE TP SCH (21:23)
[2019-04-24] MEDS ORDERED: SODIUM CHLORIDE 500 ML IV STA (00:17)
[2019-04-24] MEDS: PANTOPRAZOLE SODIUM 80 MG in SODIUM CHLORIDE 100 ML IVPB SCH (00:21)
[2019-04-24] MEDS ORDERED: VASOPRESSIN 50 UNITS in SODIUM CHLORIDE 97.5 ML IVPB SCH (00:30)
[2019-04-24] MEDS ORDERED: AMIODARONE IN DEXTROSE,ISO-OSM 150 MG/100 ML BAG IVPB ONE (00:45)
[2019-04-24] MEDS ORDERED: DEXTROSE 5%-WATER 100 ML IVPB ONE ×3 (01:22→17:31)
[2019-04-24] MEDS ORDERED: MEROPENEM 1 GM VIAL (RESTRICTED TO ID) IVPB ONE ×3 (01:22→17:31)
[2019-04-24] MEDS: MEROPENEM 1 GM in DEXTROSE 5%-WATER 100 ML IVPB SCH ×3 (01:24→17:41)
[2019-04-24] MEDS ORDERED: AMIODARONE IN DEXTROSE,ISO-OSM 360 MG/200 ML BAG IVPB ONE (03:17)
[2019-04-24] MEDS: LACTATED RINGERS SOLUTION 1,000 ML/1,000 ML INFUS.BAG IV SCH ×2 (05:31→17:00)
[2019-04-24] MEDS: INSULIN SLIDING SCALE (NOVOLOG) 1 VIAL SQ SCH ×4 (06:11→21:35)
[2019-04-24 07:10] LABS: HEMATOCRIT 28.3 % (32.4-45.2); HEMOGLOBIN 9.2 GM/dL (10.7-15.3); MCHC 32.5 g/dl (32.0-36.0); MEAN CELL VOLUME 80.1 fl (80-96); MEAN PLT VOLUME 11.8 fl (7.5-11.1); PLATELET COUNT 163 K/MM3 (134-434); RBC 3.53 M/mm3 (3.60-5.2); WHITE BLOOD COUNT 18.7 K/mm3 (4.0-10.0)
[2019-04-24 07:22] LABS: INR 1.11 (0.83-1.09); PROTHROMBIN TIME (PATIENT) 13.1 SEC (9.7-13.0)
[2019-04-24 07:25] LABS: ACTIVATED PTT 28.6 SECONDS (25.2-36.5)
[2019-04-24 07:54] LABS: ALBUMIN 1.4 g/dl (3.4-5.0); BILIRUBIN,TOTAL 0.4 mg/dL (0.2-1); BLOOD UREA NITROGEN 89.4 mg/dL (7-18); CALCIUM 7.8 mg/dL (8.5-10.1); CREATININE 1.3 mg/dL (0.55-1.3); MAGNESIUM 2.8 mg/dL (1.8-2.4); PHOSPHOROUS 3.5 mg/dL (2.5-4.9); POTASSIUM 3.2 mmol/L (3.5-5.1); TOT PROT 5.2 g/dl (6.4-8.2)
--- NOTE | 2019-04-24 08:54 | PN ---
Progress Note, Physician - Current Medication List Current Medications: Active Medications Albuterol/Ipratropium (Duoneb -) 1 amp NEB RQID [facility] Last Admin: 04/23/19 16:30 Dose: Not Given Atorvastatin Calcium (Lipitor -) 80 mg PO HS [facility] Last Admin: 04/23/19 21:16 Dose: Not Given Chlorhexidine Gluconate (Hibiclens For Decolonization -) 1 applic TP HS [facility] Last Admin: 04/23/19 21:24 Dose: 1 applic Norepinephrine Bitartrate 8, (000 mcg/ Sodium Chloride) 500 mls @ 18.75 mls/hr IV TITR [facility]; Protocol Last Titration: 04/23/19 18:04 Dose: 5 mcg/min, 18.75 mls/hr Meropenem 1 gm/ Dextrose 100 mls @ 200 mls/hr IVPB Q8H-IV [facility] Last Admin: 04/24/19 01:24 Dose: 200 mls/hr Vancomycin HCl (Vancomycin (Pre-Docked)) 1,000 mg in 250 mls @ 200 mls/hr IVPB Q24H [facility]; Protocol Last Admin: 04/23/19 17:09 Dose: 200 mls/hr Lactated Ringer's (Lactated Ringers Solution) 1,000 ml in 1,000 mls @ 100 mls/ hr IV ASDIR [facility] Last Admin: 04/24/19 05:31 Dose: 100 mls/hr Amiodarone HCl/Dextrose (Nexterone 360 Mg/200 Ml Bag) 360 mg in 200 mls @ 16.667 mls/hr IVPB ASDIR [facility]; Protocol Amiodarone HCl/Dextrose (Nexterone 360 Mg/200 Ml Bag) 360 mg in 200 mls @ 33.333 mls/hr IVPB ONCE ONE; Protocol Stop: 04/24/19 09:16 Last Admin: 04/24/19 03:27 Dose: 33.333 mls/hr Insulin Aspart (Novolog Vial Sliding Scale -) 1 vial SQ ACHS [facility]; Protocol Last Admin: 04/24/19 06:11 Dose: 2 units Mupirocin (Bactroban Ointment (For Decolonization) -) 1 applic NS BID [facility] Stop: 04/27/19 21:59 Last Admin: 04/23/19 21:23 Dose: 1 applic Nystatin (Mycostatin Cream -) 1 applic TP BID [facility] Last Admin: 04/23/19 21:23 Dose: 1 applic Pantoprazole Sodium (Protonix Iv) 40 mg IVPUSH BID [facility] Potassium Chloride (Potassium Chloride 20 Meq Premix Ivpb -) 20 meq IVPB Q60M [facility] Stop: 04/24/19 10:16 - Objective Vital Signs: Vital Signs Temperature 98.2 F 04/24/19 05:00 Pulse Rate 125 H 04/24/19 08:13 Respiratory Rate 19 04/24/19 08:13 Blood Pressure 117/56 L 04/24/19 08:00 O2 Sat by Pulse Oximetry (%) 100 04/24/19 08:13 Cardiovascular: Yes: Tachycardia, S1, S2 Respiratory: Yes: Mechanically Ventilated Gastrointestinal: Yes: Normal Bowel Sounds, Soft Labs: CBC, BMP 04/24/19 06:00 04/24/19 06:00 INR, PTT INR 1.11 (0.83-1.09) H 04/24/19 06:00 Problem List - Problems (1) CONOR (acute kidney injury) Assessment/Plan: IMPROVING Laboratory Tests 04/23/19 04/24/19 09:45 06:00 BUN 106.6 H* 89.4 H Creatinine 1.6 H 1.3 Code(s): N17.9 - ACUTE KIDNEY FAILURE, UNSPECIFIED (2) Anemia Assessment/Plan: GI CONSULT Recent unrevealing upper endoscopy 2017 and 02/19. Colonosocpy with large vascular ectasia. Given valvular heart disease, suspect that there will be other ectasias in her small bowel as well. Called and left message to discuss things with the patient's daughter and see if she wants her mother undergoing repeat colonoscopy when heart rate permits. For now, monitor for overt GI bleeding No melena reported. Continue Protonix 40mg BID Supportive measures per ICU team Transfuse to keep Hgb > 8 given cardiac history Laboratory Tests 04/22/19 04/23/19 04/23/19 14:45 09:45 19:30 Hgb 7.7 L 6.3 L* 9.3 L 04/24/19 06:00 Hgb 9.2 L Code(s): D64.9 - ANEMIA, UNSPECIFIED (3) Atrial fibrillation with RVR Assessment/Plan: Orders 04/24/19 09:16 Amiodarone in Dextrose,Iso-Osm [Nexterone 360 mg/200 ml Bag] 360 mg in 200 ml IVPB ASDIR CARDIO B-BLOCKERS NEEDED Code(s): I48.91 - UNSPECIFIED ATRIAL FIBRILLATION (4) Sepsis Assessment/Plan: ON ABX ID FOLLOWING Microbiology 04/22/19 15:23 Ulcer Gram Stain - Final 04/22/19 15:23 Ulcer Wound Culture - Preliminary Non Lactose Fermenting Gnb Staphylococcus Latex Coag Pos Pending Organism 04/22/19 14:50 Stool Salmonella/Shigella Culture - Final NO GROWTH OF SALMONELLA OR SHIGELLA SPECIES OBTAINED 04/22/19 14:50 Stool Campylobacter Culture - Final NO GROWTH OF CAMPYLOBACTER SPECIES OBTAINED 04/22/19 14:50 Stool Yersinia Culture - Final NO GROWTH OF YERSINIA SPECIES OBTAINED 04/22/19 14:50 Stool Vibrio Culture - Final NO GROWTH OF VIBRIO SPECIES OBTAINED 04/22/19 14:50 Stool Escherichia coli 0157 Culture - Final NO GROWTH OF E COLI 0157 OBTAINED 04/22/19 14:42 Blood - Peripheral Venous Blood Culture - Preliminary Presumptive Mrsa (Pbp2a Pos) 04/22/19 16:00 Urine - Urine Clean Catch Urine Culture - Preliminary Non Lactose Fermenting Gnb Pending Organism 04/22/19 14:42 Blood - Peripheral Venous Blood Culture - Preliminary NO GROWTH OBTAINED AFTER 24 HOURS, INCUBATION TO CONTINUE FOR 4 DAYS. 04/22/19 14:50 Stool Clostridioides difficile Antigen - Final 04/22/19 14:50 Stool Clostridioides difficile Toxin Assay - Final Code(s): A41.9 - SEPSIS, UNSPECIFIED ORGANISM Qualifiers: Sepsis type: sepsis due to unspecified organism Sepsis acute organ dysfunction status: without acute organ dysfunction Qualified Code(s): A41.9 - Sepsis, unspecified organism
[2019-04-24] MEDS: AMIODARONE IN DEXTROSE,ISO-OSM 360 MG/200 ML BAG IVPB SCH ×2 (09:15→21:39)
[2019-04-24] MEDS: POTASSIUM CHLORIDE 20 MEQ PREMIX IVPB 100 ML IVPB SCH ×3 (09:33→12:17)
[2019-04-24] MEDS: PANTOPRAZOLE SODIUM 40 MG VIAL IVPUSH SCH ×2 (09:38→21:38)
[2019-04-24] MEDS: MUPIROCIN 2% TOPICAL OINTMENT FOR DECOLONIZATION NS SCH ×2 (09:51→21:40)
[2019-04-24] MEDS ORDERED: METOPROLOL TARTRATE 5 MG/5 ML VIAL IVPUSH PRN ×2 (10:44→10:51)
[2019-04-24] MEDS: NYSTATIN 100,000 UNIT/GM TOPICAL CREAM 15 GM TUBE TP SCH ×2 (10:50→21:37)
--- NOTE | 2019-04-24 12:29 | PN ---
Progress Note, Physician History of Present Illness: AWAKE ON VENTILATOR EYES OPEN TEMPS DOWN AFEBRILE HYPOTENSIVE ON PRESSORS RECEIVED TRANSFUSION PRBCS WBC REMAINS ELEVATED BC PRESUMED MRSA C DIFF+ URINE, WOUND C/S MIXED - Current Medication List Current Medications: Active Medications Albuterol/Ipratropium (Duoneb -) 1 amp NEB RQID [facility] Last Admin: 04/23/19 16:30 Dose: Not Given Atorvastatin Calcium (Lipitor -) 80 mg PO HS [facility] Last Admin: 04/23/19 21:16 Dose: Not Given Chlorhexidine Gluconate (Hibiclens For Decolonization -) 1 applic TP HS [facility] Last Admin: 04/23/19 21:24 Dose: 1 applic Norepinephrine Bitartrate 8, (000 mcg/ Sodium Chloride) 500 mls @ 18.75 mls/hr IV TITR [facility]; Protocol Last Titration: 04/23/19 18:04 Dose: 5 mcg/min, 18.75 mls/hr Meropenem 1 gm/ Dextrose 100 mls @ 200 mls/hr IVPB Q8H-IV [facility] Last Admin: 04/24/19 09:37 Dose: 200 mls/hr Vancomycin HCl (Vancomycin (Pre-Docked)) 1,000 mg in 250 mls @ 200 mls/hr IVPB Q24H [facility]; Protocol Last Admin: 04/23/19 17:09 Dose: 200 mls/hr Lactated Ringer's (Lactated Ringers Solution) 1,000 ml in 1,000 mls @ 100 mls/ hr IV ASDIR [facility] Last Admin: 04/24/19 05:31 Dose: 100 mls/hr Amiodarone HCl/Dextrose (Nexterone 360 Mg/200 Ml Bag) 360 mg in 200 mls @ 16.667 mls/hr IVPB ASDIR [facility]; Protocol Last Admin: 04/24/19 09:15 Dose: 16.667 mls/hr Insulin Aspart (Novolog Vial Sliding Scale -) 1 vial SQ ACHS [facility]; Protocol Last Admin: 04/24/19 06:11 Dose: 2 units Metoprolol Tartrate (Lopressor Injection -) 5 mg IVPUSH Q4H PRN PRN Reason: HYPERTENSION Mupirocin (Bactroban Ointment (For Decolonization) -) 1 applic NS BID [facility] Stop: 04/27/19 21:59 Last Admin: 04/24/19 09:51 Dose: 1 applic Nystatin (Mycostatin Cream -) 1 applic TP BID [facility] Last Admin: 04/24/19 10:50 Dose: 1 applic Pantoprazole Sodium (Protonix Iv) 40 mg IVPUSH BID [facility] Last Admin: 04/24/19 09:38 Dose: 40 mg - Objective Vital Signs: Vital Signs Temperature 98.3 F 04/24/19 10:00 Pulse Rate 120 H 04/24/19 12:00 Respiratory Rate 15 04/24/19 12:09 Blood Pressure 109/53 L 04/24/19 12:00 O2 Sat by Pulse Oximetry (%) 100 04/24/19 12:09 Constitutional: Yes: No Distress Cardiovascular: Yes: Regular Rate and Rhythm, S1, S2 Respiratory: Yes: Diminished Gastrointestinal: Yes: Normal Bowel Sounds, Soft. No: Tenderness Edema: Yes Integumentary: Yes: Other (+ SACRAL DECUBITUS) Labs: CBC, BMP 04/24/19 06:00 04/24/19 06:00 INR, PTT INR 1.11 (0.83-1.09) H 04/24/19 06:00 Assessment/Plan SEPSIS/ SEPTIC SHOCK PRESUMED MRSA BACTEREMIA + C DIFF CHRONIC RESP FAILURE ANEMIA LEUKOCYTOSIS AZOTEMIA HX MDRO AWAIT BC CONTINUE VANCO/MEROPENEM VANCO VIA GT PRESSORS CONTACT PRECAUTIONS
--- NOTE | 2019-04-24 12:47 | PN.GI ---
GI Progress Note Subjective: No bleeding Now on Amiodarone drip - Objective Vital Signs: Vital Signs Temperature 98.3 F 04/24/19 10:00 Pulse Rate 120 H 04/24/19 12:00 Respiratory Rate 15 04/24/19 12:09 Blood Pressure 109/53 L 04/24/19 12:00 O2 Sat by Pulse Oximetry (%) 100 04/24/19 12:09 Constitutional: Calm Eyes: No: Sclera Icterus Cardiovascular: Yes: Tachycardia, Pulse Irregular Respiratory: Yes: Diminished (at bases bilaterally) Gastrointestinal Inspection: No: Distention ...Auscultate: Yes: Normoactive Bowel Sounds ...Palpate: Yes: Soft. No: Hepatomegaly, Splenomegaly, Tenderness (No grimacing upon palpation) ...Percussion: No: Tympanitic Edema: LLE: Trace, RLE: Trace Labs: CBC, BMP 04/24/19 06:00 04/24/19 06:00 INR, PTT INR 1.11 (0.83-1.09) H 04/24/19 06:00 Problem List - Problems (1) Anemia Assessment/Plan: Had long discussion with 's daughter via telephone. She declines repeat colonoscopy at this time Continue supportive measures Code(s): D64.9 - ANEMIA, UNSPECIFIED (2) Abnormal liver function tests Assessment/Plan: Chronicity to LFT abnormality and asymptomatic Avoid hepatotoxic agents. Monitor closely particularly while on amiodarone. I stopped lipitor for now Ordered abdominal US Code(s): R94.5 - ABNORMAL RESULTS OF LIVER FUNCTION STUDIES
[2019-04-24] MEDS: VANCOMYCIN 1 GRAM (PRE-DOCKED) 1,000 MG/250 ML BAG IVPB SCH (13:09)
--- NOTE | 2019-04-24 13:42 | PN ---
Teaching Attending Note Name of Resident: Oneil Ashley ATTENDING PHYSICIAN STATEMENT I saw and evaluated the patient. I reviewed the resident's note and discussed the case with the resident. I agree with the resident's findings and plan as documented. SUBJECTIVE: Patient seen and examined in the ICU. Vented, poorly responsive. On NE for hemodynamic support. CXR: No gross change OBJECTIVE: Intake & Output 04/21/19 04/22/19 04/23/19 04/24/19 23:59 23:59 23:59 23:59 Intake Total 1800 1847 1610 Output Total 600 1050 400 Balance 2161 377 7418 Weight 151 lb 156 lb 4 oz 155 lb Last Vital Signs Temp Pulse Resp BP Pulse Ox 98.2 F 111 H 19 104/66 100 04/24/19 13:25 04/24/19 13:25 04/24/19 13:25 04/24/19 13:25 04/24/19 12:09 Active Medications Albuterol/Ipratropium (Duoneb -) 1 amp NEB RQID [facility] Last Admin: 04/23/19 16:30 Dose: Not Given Chlorhexidine Gluconate (Hibiclens For Decolonization -) 1 applic TP HS [facility] Last Admin: 04/23/19 21:24 Dose: 1 applic Norepinephrine Bitartrate 8, (000 mcg/ Sodium Chloride) 500 mls @ 18.75 mls/hr IV TITR [facility]; Protocol Last Titration: 04/23/19 18:04 Dose: 5 mcg/min, 18.75 mls/hr Meropenem 1 gm/ Dextrose 100 mls @ 200 mls/hr IVPB Q8H-IV [facility] Last Admin: 04/24/19 09:37 Dose: 200 mls/hr Lactated Ringer's (Lactated Ringers Solution) 1,000 ml in 1,000 mls @ 100 mls/ hr IV ASDIR [facility] Last Admin: 04/24/19 05:31 Dose: 100 mls/hr Amiodarone HCl/Dextrose (Nexterone 360 Mg/200 Ml Bag) 360 mg in 200 mls @ 16.667 mls/hr IVPB ASDIR [facility]; Protocol Last Admin: 04/24/19 09:15 Dose: 16.667 mls/hr Vancomycin HCl (Vancomycin (Pre-Docked)) 1,000 mg in 250 mls @ 166.667 mls/hr IVPB 0100,1300 [facility]; Protocol Last Admin: 04/24/19 13:09 Dose: 166.667 mls/hr Insulin Aspart (Novolog Vial Sliding Scale -) 1 vial SQ ACHS [facility]; Protocol Last Admin: 04/24/19 12:24 Dose: 2 units Metoprolol Tartrate (Lopressor Injection -) 5 mg IVPUSH Q4H PRN PRN Reason: HYPERTENSION Mupirocin (Bactroban Ointment (For Decolonization) -) 1 applic NS BID [facility] Stop: 04/27/19 21:59 Last Admin: 04/24/19 09:51 Dose: 1 applic Nystatin (Mycostatin Cream -) 1 applic TP BID [facility] Last Admin: 04/24/19 10:50 Dose: 1 applic Pantoprazole Sodium (Protonix Iv) 40 mg IVPUSH BID [facility] Last Admin: 04/24/19 09:38 Dose: 40 mg Vancomycin HCl (Vancomycin Oral Solution) 125 mg GT Q6HPO [facility] Gen: vented, poorly responsive Heart: irregular Lung: scattered rhonchi Abd: soft, nontender Ext: + edema Back: stage IV sacral ulcer with granulation tissue Laboratory Results - last 24 hr 04/22/19 04/23/19 04/23/19 14:50 10:55 14:04 WBC RBC Hgb Hct MCV MCH MCHC RDW Plt Count MPV PT with INR INR PTT (Actin FS) Sodium Potassium Chloride Carbon Dioxide Anion Gap BUN Creatinine Est GFR (CKD-EPI)AfAm Est GFR (CKD-EPI)NonAf POC Glucometer 206 Random Glucose Calcium Phosphorus Magnesium Total Bilirubin AST ALT Alkaline Phosphatase Total Protein Albumin Stool O & P Wet [place] Permanent Slide Final report Blood Type O POSITIVE Antibody Screen Negative Crossmatch See Detail 04/23/19 04/23/19 04/23/19 18:03 19:30 21:25 WBC 20.9 H RBC 3.61 Hgb 9.3 L Hct 29.7 L D MCV 82.3 MCH 25.6 L MCHC 31.1 L RDW 18.1 H Plt Count 164 MPV 12.7 H PT with INR INR PTT (Actin FS) Sodium Potassium Chloride Carbon Dioxide Anion Gap BUN Creatinine Est GFR (CKD-EPI)AfAm Est GFR (CKD-EPI)NonAf POC Glucometer 226 184 Random Glucose Calcium Phosphorus Magnesium Total Bilirubin AST ALT Alkaline Phosphatase Total Protein Albumin Stool O & P Wet [place] Permanent Slide Blood Type Antibody Screen Crossmatch 04/24/19 04/24/19 04/24/19 06:00 06:00 06:00 WBC 18.7 H RBC 3.53 L Hgb 9.2 L Hct 28.3 L MCV 80.1 MCH 26.0 MCHC 32.5 RDW 18.0 H Plt Count 163 MPV 11.8 H PT with INR 13.10 H INR 1.11 H PTT (Actin FS) 28.6 Sodium 153 H Potassium 3.2 L Chloride 121 H Carbon Dioxide 23 Anion Gap 8 BUN 89.4 H Creatinine 1.3 Est GFR (CKD-EPI)AfAm 45.83 Est GFR (CKD-EPI)NonAf 39.54 POC Glucometer Random Glucose 199 H Calcium 7.8 L Phosphorus 3.5 Magnesium 2.8 H Total Bilirubin 0.4 AST 40 H ALT 92 H Alkaline Phosphatase 240 H Total Protein 5.2 L Albumin 1.4 L Stool O & P Wet [place] Permanent Slide Blood Type Antibody Screen Crossmatch 04/24/19 04/24/19 06:07 12:22 WBC RBC Hgb Hct MCV MCH MCHC RDW Plt Count MPV PT with INR INR PTT (Actin FS) Sodium Potassium Chloride Carbon Dioxide Anion Gap BUN Creatinine Est GFR (CKD-EPI)AfAm Est GFR (CKD-EPI)NonAf POC Glucometer 177 199 Random Glucose Calcium Phosphorus Magnesium Total Bilirubin AST ALT Alkaline Phosphatase Total Protein Albumin Stool O & P Wet [place] Permanent Slide Blood Type Antibody Screen Crossmatch ASSESSMENT AND PLAN: UTI Pneumonia Suspected Sacral Decubitus Ulcer Infection Septic Shock GI Bleed likely Upper Acute Blood Loss Anemia Atrial Fibrillation with RVR CAD COPD HTN DM h/o CVA - IV antibiotics per ID - f/u cultures - IVF boluses to keep CVP 8-12 - pressors to maintain MAP >65 - protonix - transfuse PRBC - monitor H/H - hold anticoagulation - rate control - continue volume assist control - NPO - DVT/GI prophylaxis - ICU monitoring for hemodynamic instability Dr Stover Critical care time spent in reviewing chart, evaluating patient and formulating plan 35 min
[2019-04-24] MEDS ORDERED: LACTATED RINGERS SOLUTION 1,000 ML/1,000 ML INFUS.BAG IV SCH (13:45)
--- NOTE | 2019-04-24 13:46 | PN ---
Physical Exam: SUBJECTIVE: Patient seen and examined Downtrending MAPs yesterday prompted CVC placement. Patient also noted to have Hb 6.3 and 1 episode of melena; was placed on protonix drip, given 2u pRBC. Was on levo 10mcg OBJECTIVE: Vital Signs Period Temp Pulse Resp BP Sys/[place] Pulse Ox Last 24 Hr 97.3 F-98.4 F 107-137 15-21 86-121/6-76 100-100 GENERAL: arousable but does not follow commands. Brief eye contact HEAD: Normal with no signs of trauma. EYES: PERRLA, EOMI ENT: Ears normal, nares patent, oropharynx clear without exudates. Moist mucous membranes. NECK: trach in place without evidence of infection, normal appearing borders, trach-vent LUNGS: vented, coarse breath sounds in all lung awller HEART: tachycardic, normal S1 and S2 without murmur, rub or gallop. ABDOMEN: PEG in place, soft, nontender, not distended, no guarding, no rebound, no masses. RECTAL: no melena MUSCULOSKELETAL: Normal range of motion at all joints. No bony deformities or tenderness. LOWER EXTREMITIES: 2+ pulses, warm, well-perfused. No calf tenderness. No peripheral edema. NEUROLOGICAL: limited 2/2 mental status, does not follow commands PSYCHIATRIC: opens eyes during examination SKIN: sacral debridement wound ~11x8cm in diameter with depth to the bone, fibrinous tissue at the bases with no evidence of bleeding or purulence Laboratory Results - last 24 hr 04/22/19 04/23/19 04/23/19 14:50 10:55 14:04 WBC RBC Hgb Hct MCV MCH MCHC RDW Plt Count MPV PT with INR INR PTT (Actin FS) Sodium Potassium Chloride Carbon Dioxide Anion Gap BUN Creatinine Est GFR (CKD-EPI)AfAm Est GFR (CKD-EPI)NonAf POC Glucometer 206 Random Glucose Calcium Phosphorus Magnesium Total Bilirubin AST ALT Alkaline Phosphatase Total Protein Albumin Stool O & P Wet [place] & P Permanent Slide Final report Blood Type O POSITIVE Antibody Screen Negative Crossmatch See Detail 04/23/19 04/23/19 04/23/19 18:03 19:30 21:25 WBC 20.9 H RBC 3.61 Hgb 9.3 L Hct 29.7 L D MCV 82.3 MCH 25.6 L MCHC 31.1 L RDW 18.1 H Plt Count 164 MPV 12.7 H PT with INR INR PTT (Actin FS) Sodium Potassium Chloride Carbon Dioxide Anion Gap BUN Creatinine Est GFR (CKD-EPI)AfAm Est GFR (CKD-EPI)NonAf POC Glucometer 226 184 Random Glucose Calcium Phosphorus Magnesium Total Bilirubin AST ALT Alkaline Phosphatase Total Protein Albumin Stool O & P Wet [place] P Permanent Slide Blood Type Antibody Screen Crossmatch 04/24/19 04/24/19 04/24/19 06:00 06:00 06:00 WBC 18.7 H RBC 3.53 L Hgb 9.2 L Hct 28.3 L MCV 80.1 MCH 26.0 MCHC 32.5 RDW 18.0 H Plt Count 163 MPV 11.8 H PT with INR 13.10 H INR 1.11 H PTT (Actin FS) 28.6 Sodium 153 H Potassium 3.2 L Chloride 121 H Carbon Dioxide 23 Anion Gap 8 BUN 89.4 H Creatinine 1.3 Est GFR (CKD-EPI)AfAm 45.83 Est GFR (CKD-EPI)NonAf 39.54 POC Glucometer Random Glucose 199 H Calcium 7.8 L Phosphorus 3.5 Magnesium 2.8 H Total Bilirubin 0.4 AST 40 H ALT 92 H Alkaline Phosphatase 240 H Total Protein 5.2 L Albumin 1.4 L Stool O & P Wet [place] & P Permanent Slide Blood Type Antibody Screen Crossmatch 04/24/19 04/24/19 06:07 12:22 WBC RBC Hgb Hct MCV MCH MCHC RDW Plt Count MPV PT with INR INR PTT (Actin FS) Sodium Potassium Chloride Carbon Dioxide Anion Gap BUN Creatinine Est GFR (CKD-EPI)AfAm Est GFR (CKD-EPI)NonAf POC Glucometer 177 199 Random Glucose Calcium Phosphorus Magnesium Total Bilirubin AST ALT Alkaline Phosphatase Total Protein Albumin Stool O & P Wet [place] P Permanent Slide Blood Type Antibody Screen Crossmatch Active Medications Generic Name Dose Route Start Last Admin Trade Name Freq PRN Reason Stop Dose Admin Albuterol/Ipratropium 1 amp 04/22/19 20:00 04/23/19 16:30 Duoneb - NEB Not Given RQID BAHMAN Chlorhexidine Gluconate 1 applic 04/22/19 22:00 04/23/19 21:24 Hibiclens For Decolonization - TP 1 applic HS [facility] Administration Norepinephrine Bitartrate 8, 500 mls @ 18.75 mls/hr 04/23/19 13:30 04/23/19 18:04 000 mcg/ Sodium Chloride IV 5 mcg/min TITR BAHMAN 18.75 mls/hr Titration Protocol 5 MCG/MIN Meropenem 1 gm/ Dextrose 100 mls @ 200 mls/hr 04/23/19 18:00 04/24/19 09:37 IVPB 200 mls/hr Q8H-IV BAHMAN Administration Lactated Ringer's 1,000 ml in 1,000 mls @ 100 mls/hr 04/23/19 18:19 04/24/19 05:31 Lactated Ringers Solution IV 100 mls/hr ASDIR BAHMAN Administration Amiodarone HCl/Dextrose 360 mg in 200 mls @ 16.667 mls/hr 04/24/19 09:16 09:15 Nexterone 360 Mg/200 Ml Bag IVPB 16.667 mls/hr ASDIR BAHMAN Administration Protocol 0.5 MG/MIN Vancomycin HCl 1,000 mg in 250 mls @ 166.667 mls/hr 04/24/19 13:00 04/24/19 13:09 Vancomycin (Pre-Docked) IVPB 166.667 mls/hr 0100,1300 BAHMAN Administration Protocol Insulin Aspart 1 vial 04/23/19 22:00 04/24/19 12:24 Novolog Vial Sliding Scale - SQ 2 units ACHS BAHMAN Administration Protocol Metoprolol Tartrate 5 mg 04/24/19 10:51 Lopressor Injection - IVPUSH Q4H PRN HYPERTENSION Mupirocin 1 applic 04/22/19 22:00 04/24/19 09:51 Bactroban Ointment (For Decolonization) - NS 04/27/19 21:59 1 applic BID BAHMAN Administration Nystatin 1 applic 04/23/19 22:00 04/24/19 10:50 Mycostatin Cream - TP 1 applic BID BAHMAN Administration Pantoprazole Sodium 40 mg 04/24/19 10:00 04/24/19 09:38 Protonix Iv IVPUSH 40 mg BID BAHMAN Administration Vancomycin HCl 125 mg 04/24/19 18:00 Vancomycin Oral Solution GT Q6HPO BAHMAN ASSESSMENT/PLAN: 79 y/o female with hx of CAD, Afib (on Eliquis), sick sinus syndrome (s/p PPM), DMII, HTN, COPD, remote history of GI bleed, colonic angiodysplasia, sigmoid diverticulosis, internal hemorrhoids, CVA (RUE/LE paralysis, non verbal), chronic respiratory failure (s/p trach-vent dependent), chronic stage 4 sacral ulcer, presenting from [facility] for T 102.3 and Afib with RVR with concern for septic shock with source of pna vs uti vs sacral ulcer. Neuro: -arouses to stimulus but does not respond or follow commands Cardio: -Afib with RVR s/p 10mg cardizem -EKG: afib with rvr, no hilton/d -ED: s/p 3L ivf -trop 0.13, 0.11 -BNP 7435 -CVC and pressors for HDS support; maintain MAP>65 -currently on 5mcg levo, uptitrate as needed -amiodarone gtt for persistent RVR Pulm: -trach and vent dependent with sats 100% -CXR: bibasilar pleural effusions with atelectasis vs infiltrate, L>R -empiric abx GI: -PEG in place -NPO # GIB w/ blood per rectum and high BUN - 40mg pantoprazole BID - GI(DiGornio) consult: --suspect small bowel ectasias --in depth discussion with daughter regarding repeat colonoscopy and daughter states she will not pursue; will continue conservative GI bleed management HEME: # normocytic anemia --possibly 2/2 GIB - pRBC x2 - post-transfusion CBC stable Renal: -Improving Cr 1.3 BUN 89.4 -UA: turbid appearance with 3+leuks, bacteria and WBC -s/p IVF 3L; mIVF 42/hr -empiric abx(vanc, zosyn, meropenem, levofloxacin, daptomycin);l currently on vanc and nohemi ID: -tmax 102.3 s/p tylenol T 102 -received empiric abx(vanc, zosyn, meropenem, levofloxacin, daptomycin) given previous sensitivities -BCx with MRSA -Cdif + -ID(Isac) consult: --empiric nohemi + vanc; also to receive PO vanc for cdif Wound: -sacral decubitus debridement site, does not appear infected -daily wound care Dispo: We will continue to follow the patient. Thank you for this consultative opportunity. HCP is daughter, however, after ED convo with daughter, she states she relinquishes authority to her father to make decision regarding code status. After discussion with Mr Laboy, states he would like full code Visit type - Emergency Visit Emergency Visit: No - New Patient This patient is new to me today: No - Critical Care Critical Care patient: Yes Total Critical Care Time (in minutes): 40 Critical Care Statement: The care of this patient involved high complexity decision making to prevent further life threatening deterioration of the patient 's condition and/or to evaluate & treat vital organ system(s) failure or risk of failure. ATTENDING PHYSICIAN STATEMENT I saw and evaluated the patient. I reviewed the resident's note and discussed the case with the resident. I agree with the resident's findings and plan as documented. SUBJECTIVE: OBJECTIVE: ASSESSMENT AND PLAN:
--- NOTE | 2019-04-24 13:56 | CONSULT ---
Consult Consult Specialty:: Nephrology Reason for Consultation:: Acute kidney failure in the setting of profound hypotension and septic shock - History of Present Illness Chief Complaint: This is a 79-year-old female with history of chronic respiratory failure, hypertension, coronary artery disease, chronic atrial fibrillation, sick sinus syndrome, type 2 diabetes mellitus, hypertension, GI bleed, recent polymicrobial sepsis, cerebrovascular accident, status post chronic ventilatory support through tracheostomy and chronic kidney failure. The patient is currently admitted with septic shock and possible respiratory or decubitus related septicemia. The blood cultures have been drawn but the reports are pending. 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), Other (PPM) Pulmonary: Yes: COPD, Previously Intubated (chronic vent-dependent/trached) Gastrointestinal: Yes: Diverticulosis, GI Bleed (recent bleed felt to be 2ndary to vascular ectasias), Other (07/19 four adenomatous tx colon polyps resected, cecal angiodysplasias seen.) Hepatobiliary: Yes: Cirrhosis (wound) Renal/: Yes: Renal Inusuff, UTI, Other (chronic [place]) Infectious Disease: Yes: Other (multidrug resistant organisms) Musculoskeletal: Yes: Osteoarthritis, Other (R sided weakness from CVA) Rheumatology: Yes: Other (osteoarthritis) Endocrine: Yes: Diabetes Mellitus Additional Medical History: stage 4 sacral decubitus - Past Surgical History Past Surgical History: Yes: Colonoscopy, Permanent Pacemaker, Upper Endoscopy, Valve Replacement (mitral annuloplasty) - Alcohol/Substance Use Hx Alcohol Use: No History of Substance Use: reports: None - Smoking History Smoking history: Smoker current status UNK Have you smoked in the past 12 months: No If you are a former smoker, when did you quit?: 2007 - Social History Usual Living Arrangement: [facility] (previously with spouse) ADL: Support Services 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 History of Recent Travel: No Home Medications - Allergies Allergies/Adverse Reactions: Allergies Allergy/AdvReac Type Severity Reaction Status Date / Time No Known Allergies Allergy Verified 03/29/19 18:17 - Home Medications Home Medications: Ambulatory Orders Atorvastatin Ca [Lipitor] 80 mg PO HS tablet 07/26/17 Fluoxetine HCl Liquid [Prozac 20mg/5mL Oral Solution -] 20 mg PO DAILY 04/28/18 Metoprolol Tartrate [Lopressor -] 75 mg GT TID 04/28/18 Albuterol 0.083% Nebulizer Sandrita [Ventolin 0.083% Nebulizer Soln -] 1 amp NEB Q4H PRN amp 02/23/19 Nystatin Powder [Nystop Powder -] 1 applic TP TID applic 02/23/19 Ferrous Sulfate [Feosol] 300 mg GT BID udc 03/03/19 Apixaban [Eliquis -] 5 mg PEG BID tablet 03/20/19 Insulin (Levemir) [Levemir Vial] 10 units SQ AM units 03/20/19 Acetaminophen [Tylenol .Regular Strength -] 650 mg GT Q6H PRN 03/29/19 Ascorbic Acid [Vitamin C] 500 mg GT DAILY 03/29/19 Pantoprazole Suspension [Protonix Packets For Oral Suspension -] 160 mg PEG DAILY 03/29/19 Zinc Sulfate 220 mg GT DAILY 03/29/19 Acetaminophen Liquid [Tylenol 100mg/mL * Drops* -] 650 mg GT Q4H PRN ml 04/02/19 Albuterol 2.5/Ipratropium 0.5 [Duoneb -] 1 amp NEB Q4H PRN amp 04/02/19 Amino Acids/Protein Hydrolys [Prosource No Carb Liquid Pkt] 30 ml GT BID@0800, 1730 packet 04/02/19 Amoxicillin/Potassium Clav [Augmentin 875-125 Tablet] 1 each PO BID #14 tablet 04/02/19 Ascorbic Acid [Vitamin C -] 500 mg GT DAILY tablet 04/02/19 Diltiazem [Cardizem -] 30 mg PO TID tablet 04/02/19 Famotidine [Pepcid] 20 mg NGT BID oral.susp 04/02/19 Ferrous Sulfate [Feosol] 300 mg GT BID udc 04/02/19 Insulin Sliding Scale [Novolog Vial Sliding Scale -] 1 vial SQ TIDAC units Metoprolol Tartrate [Lopressor -] 75 mg GT TID tablet 04/02/19 Multivit-Minerals [Certavite-Antioxidant Liquid] 15 ml GT DAILY cup 01/30/20 Sitagliptin Phosphate [Januvia -] 50 mg NR DAILY@0700 tablet 04/02/19 Zinc Sulfate [Orazinc -] 220 mg GT DAILY capsule 04/02/19 Review of Systems Unable to obtain ROS, reason: Patient onVentilatory sup Physical Exam Vital Signs: Vital Signs Temperature 98.2 F 04/24/19 13:25 Pulse Rate 111 H 04/24/19 13:25 Respiratory Rate 19 04/24/19 13:25 Blood Pressure 104/66 04/24/19 13:25 O2 Sat by Pulse Oximetry (%) 100 04/24/19 12:09 Constitutional: Yes: Pallor Neck: Yes: Trachea Midline (Status post tracheostomy) Cardiovascular: Yes: Tachycardia, S1, S2 Respiratory: Yes: CTA Bilaterally, Mechanically Ventilated (Tracheostomy in place) Gastrointestinal: Yes: Soft Renal/: Yes: [place] Present Edema: No Neurological: Yes: Unresponsive Labs: CBC, BMP 04/24/19 06:00 04/24/19 06:00 Problem List - Problems (1) CONOR (acute kidney injury) Code(s): N17.9 - ACUTE KIDNEY FAILURE, UNSPECIFIED (2) Anemia Code(s): D64.9 - ANEMIA, UNSPECIFIED (3) Atrial fibrillation with RVR Code(s): I48.91 - UNSPECIFIED ATRIAL FIBRILLATION (4) Septic shock Code(s): A41.9 - SEPSIS, UNSPECIFIED ORGANISM; R65.21 - SEVERE SEPSIS WITH SEPTIC SHOCK (5) A-fib Code(s): I48.91 - UNSPECIFIED ATRIAL FIBRILLATION Qualifiers: Atrial fibrillation type: longstanding persistent Qualified Code(s): I48.11 - Longstanding persistent atrial fibrillation (6) CKD (chronic kidney disease) Code(s): N18.9 - CHRONIC KIDNEY DISEASE, UNSPECIFIED Qualifiers: Chronic kidney disease stage: stage 2 (mild) Qualified Code(s): N18.2 - Chronic kidney disease, stage 2 (mild) (7) CVA (cerebral vascular accident) Code(s): I63.9 - CEREBRAL INFARCTION, UNSPECIFIED Qualifiers: CVA mechanism: embolism (8) Chronic respiratory failure Code(s): J96.10 - CHRONIC RESPIRATORY FAILURE, UNSP W HYPOXIA OR HYPERCAPNIA (9) Hypernatremia Code(s): E87.0 - HYPEROSMOLALITY AND HYPERNATREMIA Assessment/Plan This is a 79-year-old female with the history of sepsis, recent polymicrobial septicemia related to sacral decubitus, chronic ventilatory support, chronic anemia and currently admitted with septic shock and She is receiving intravenous fluids as well as intravenous pressure support. Her blood pressure has improved. She remains in oliguric renal failure most likely related to hemodynamic instability. Tendency for hyponatremia possibly related to increased water loss. If the hyponatremia worsens, should consider switching fluids hypotonic solutions. Agree with the current antibiotic regimen. No specific changes in regimen suggested at this point. Will closely monitor the renal and electrolyte profile. Thank you for this consult referral. Will follow closely. Yuly Jean MD
[2019-04-24] MEDS: NOREPINEPHRINE BITARTRATE 8,000 MCG in SODIUM CHLORIDE 492 ML IV SCH (13:57)
[2019-04-24] MEDS ORDERED: NOREPINEPHRINE BITARTRATE 4 MG/4 ML ML IV ONE (15:44)
[2019-04-24] MEDS: VANCOMYCIN 250 MG/5 ML ORAL SOLUTION GT SCH ×2 (17:42→23:26)
[2019-04-24] MEDS: ALBUTEROL SO4 2.5/IPRATROPIUM 0.5 INH SOL 3 ML VIAL.NEB. NEB SCH (21:06)
[2019-04-24] MEDS: CHLORHEXIDINE GLUCONATE 4% CLEANSER FOR DECOLONIZATION TP SCH (21:42)
[2019-04-24 22:15] LABS: BLOOD UREA NITROGEN 77.4 mg/dL (7-18); CALCIUM 7.9 mg/dL (8.5-10.1); CREATININE 1.2 mg/dL (0.55-1.3); POTASSIUM 3.9 mmol/L (3.5-5.1)
[2019-04-25] MEDS ORDERED: DEXTROSE 5%-WATER 100 ML IVPB ONE ×2 (01:36→08:58)
[2019-04-25] MEDS ORDERED: MEROPENEM 1 GM VIAL (RESTRICTED TO ID) IVPB ONE ×3 (01:36→15:51)
[2019-04-25] MEDS: VANCOMYCIN 1 GRAM (PRE-DOCKED) 1,000 MG/250 ML BAG IVPB SCH ×2 (01:39→12:53)
[2019-04-25] MEDS: MEROPENEM 1 GM in DEXTROSE 5%-WATER 100 ML IVPB SCH ×3 (01:44→17:39)
[2019-04-25] MEDS: VANCOMYCIN 250 MG/5 ML ORAL SOLUTION GT SCH ×3 (06:15→17:38)
[2019-04-25] MEDS: INSULIN SLIDING SCALE (NOVOLOG) 1 VIAL SQ SCH ×4 (06:25→21:32)
[2019-04-25] MEDS ORDERED: METOPROLOL TARTRATE 5 MG/5 ML VIAL IVPUSH ONE (06:32)
[2019-04-25 06:44] LABS: BASO % 0.2 % (0-2.0); EOS % 5.1 % (0-4.5); HEMATOCRIT 29.1 % (32.4-45.2); HEMOGLOBIN 9.3 GM/dL (10.7-15.3); LYMPH % 5.4 % (8-40); MCH 25.7 pg (25.7-33.7); MEAN CELL VOLUME 80.5 fl (80-96); MEAN PLT VOLUME 11.3 fl (7.5-11.1); MONO % 3.7 % (3.8-10.2); NEUT % 85.6 % (42.8-82.8); PLATELET COUNT 173 K/MM3 (134-434); RBC 3.62 M/mm3 (3.60-5.2); RDW 18.7 % (11.6-15.6); WHITE BLOOD COUNT 18.2 K/mm3 (4.0-10.0)
[2019-04-25] MEDS: NOREPINEPHRINE BITARTRATE 8,000 MCG in SODIUM CHLORIDE 492 ML IV SCH (07:00)
[2019-04-25 07:57] LABS: ALBUMIN 1.4 g/dl (3.4-5.0); BILIRUBIN,TOTAL 0.4 mg/dL (0.2-1); BLOOD UREA NITROGEN 71.2 mg/dL (7-18); CALCIUM 8.1 mg/dL (8.5-10.1); CREATININE 1.1 mg/dL (0.55-1.3); MAGNESIUM 2.7 mg/dL (1.8-2.4); PHOSPHOROUS 3.1 mg/dL (2.5-4.9); POTASSIUM 3.9 mmol/L (3.5-5.1); TOT PROT 5.2 g/dl (6.4-8.2)
[2019-04-25] MEDS: ALBUTEROL SO4 2.5/IPRATROPIUM 0.5 INH SOL 3 ML VIAL.NEB. NEB SCH ×4 (08:31→20:45)
[2019-04-25] MEDS ORDERED: PT OWN MED DRAWER 7, Y5N ONE ×2 (08:59→15:52)
--- NOTE | 2019-04-25 09:58 | PN ---
Progress Note, Physician Chief Complaint: AWAKE NONVERBAL EVENT AND NOTES REVIEWED ON VENT SUPPORT VIA TRACHEOSTOMY AVILES INTACT AND FUNCTIONING 100CC IN AVILES ON THIS SHIFT IN ICU - Current Medication List Current Medications: Active Medications Albuterol/Ipratropium (Duoneb -) 1 amp NEB RQID BAHMAN Last Admin: 04/25/19 08:31 Dose: 1 amp Chlorhexidine Gluconate (Hibiclens For Decolonization -) 1 applic TP HS BAHMAN Last Admin: 04/24/19 21:42 Dose: 1 applic Norepinephrine Bitartrate 8, (000 mcg/ Sodium Chloride) 500 mls @ 18.75 mls/hr IV TITR BAHMAN; Protocol Last Titration: 04/25/19 00:00 Dose: 2 mcg/min, 7.5 mls/hr Meropenem 1 gm/ Dextrose 100 mls @ 200 mls/hr IVPB Q8H-IV BAHMAN Last Admin: 04/25/19 01:44 Dose: 200 mls/hr Lactated Ringer's (Lactated Ringers Solution) 1,000 ml in 1,000 mls @ 100 mls/ hr IV ASDIR BAHMAN Last Admin: 04/24/19 17:00 Dose: 100 mls/hr Amiodarone HCl/Dextrose (Nexterone 360 Mg/200 Ml Bag) 360 mg in 200 mls @ 16.667 mls/hr IVPB ASDIR BAHMAN; Protocol Last Admin: 04/24/19 21:39 Dose: 16.667 mls/hr Vancomycin HCl (Vancomycin (Pre-Docked)) 1,000 mg in 250 mls @ 166.667 mls/hr IVPB 0100,1300 BAHMAN; Protocol Last Admin: 04/25/19 01:39 Dose: 166.667 mls/hr Insulin Aspart (Novolog Vial Sliding Scale -) 1 vial SQ ACHS BAHMAN; Protocol Last Admin: 04/25/19 06:25 Dose: 4 units Metoprolol Tartrate (Lopressor Injection -) 5 mg IVPUSH Q4H PRN PRN Reason: TACHYCARDIA Mupirocin (Bactroban Ointment (For Decolonization) -) 1 applic NS BID BAHMAN Stop: 04/27/19 21:59 Last Admin: 04/24/19 21:40 Dose: 1 applic Nystatin (Mycostatin Cream -) 1 applic TP BID BAHMAN Last Admin: 04/24/19 21:37 Dose: 1 applic Pantoprazole Sodium (Protonix Iv) 40 mg IVPUSH BID [facility] Last Admin: 04/24/19 21:38 Dose: 40 mg Vancomycin HCl (Vancomycin Oral Solution) 125 mg GT Q6HPO [facility] Last Admin: 04/24/19 23:26 Dose: 125 mg - Objective Vital Signs: Vital Signs Temperature 98.1 F 04/25/19 06:00 Pulse Rate 108 H 04/25/19 08:30 Respiratory Rate 14 04/25/19 08:30 Blood Pressure 100/76 04/25/19 08:00 O2 Sat by Pulse Oximetry (%) 100 04/25/19 08:30 Constitutional: Yes: Mild Distress Cardiovascular: Yes: Pulse Irregular Respiratory: Yes: Diminished, Mechanically Ventilated Gastrointestinal: Yes: Soft Genitourinary: Yes: [place] Present Musculoskeletal: Yes: Muscle Weakness Integumentary: Yes: Pressure Ulcer, Venous Stasis Changes Neurological: Yes: Pre-Existing Deficit ...Motor Strength: LLE, RLE Psychiatric: Yes: Other Labs: CBC, BMP 04/25/19 05:50 04/25/19 05:50 INR, PTT INR 1.11 (0.83-1.09) H 04/24/19 06:00 Problem List - Problems (1) History of CVA (cerebrovascular accident) Code(s): Z86.73 - PRSNL HX OF TIA (TIA), AND CEREB INFRC W/O RESID DEFICITS (2) CONOR (acute kidney injury) Code(s): N17.9 - ACUTE KIDNEY FAILURE, UNSPECIFIED (3) Anemia Code(s): D64.9 - ANEMIA, UNSPECIFIED (4) Atrial fibrillation with RVR Code(s): I48.91 - UNSPECIFIED ATRIAL FIBRILLATION (5) NSTEMI (non-ST elevated myocardial infarction) Code(s): I21.4 - NON-ST ELEVATION (NSTEMI) MYOCARDIAL INFARCTION (6) Septic shock Code(s): A41.9 - SEPSIS, UNSPECIFIED ORGANISM; R65.21 - SEVERE SEPSIS WITH SEPTIC SHOCK (7) Severe sepsis Code(s): A41.9 - SEPSIS, UNSPECIFIED ORGANISM; R65.20 - SEVERE SEPSIS WITHOUT SEPTIC SHOCK (8) Stage 4 skin ulcer of sacral region Code(s): L98.429 - NON-PRESSURE CHRONIC ULCER OF BACK WITH UNSPECIFIED SEVERITY (9) Diastolic dysfunction Code(s): I51.89 - OTHER ILL-DEFINED HEART DISEASES (10) Guaiac + stool Code(s): R19.5 - OTHER FECAL ABNORMALITIES (11) Sacral decubitus ulcer Code(s): L89.159 - PRESSURE ULCER OF SACRAL REGION, UNSPECIFIED STAGE Qualifiers: Pressure injury stage: stage 4 Qualified Code(s): L89.154 - Pressure ulcer of sacral region, stage 4 (12) Ventilator dependent Code(s): Z99.11 - DEPENDENCE ON RESPIRATOR [VENTILATOR] STATUS (13) Atrial fibrillation Code(s): I48.91 - UNSPECIFIED ATRIAL FIBRILLATION Qualifiers: Atrial fibrillation type: permanent Qualified Code(s): I48.21 - Permanent atrial fibrillation (14) COPD (chronic obstructive pulmonary disease) Code(s): J44.9 - CHRONIC OBSTRUCTIVE PULMONARY DISEASE, UNSPECIFIED Qualifiers: COPD type: unspecified COPD Qualified Code(s): J44.9 - Chronic obstructive pulmonary disease, unspecified (15) Diabetes mellitus Code(s): E11.9 - TYPE 2 DIABETES MELLITUS WITHOUT COMPLICATIONS Qualifiers: Diabetes mellitus type: type 2 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: without termite exterminator helper use Diabetes mellitus complication status: without complication Qualified Code(s): E11.9 - Type 2 diabetes mellitus without complications (16) H/O mitral valve replacement Code(s): Z95.2 - PRESENCE OF PROSTHETIC HEART VALVE (17) Lung nodule Code(s): R91.1 - SOLITARY PULMONARY NODULE (18) Pacemaker Code(s): Z95.0 - PRESENCE OF CARDIAC PACEMAKER Assessment/Plan SEVERE SEPSIS WITH HEMATOCHEZIA IN ICU ON VENT SUPPORT AND BP SUPPORT PRBC TRANSFUSION HEEP HEMOGLOBIN ABOVE 8 BP SUPPORT ON PRESSORS IVF, NA+ LEVELS 150 STILL NPO GI CONSULT RENAL/PULM EVAL ADVANCED DIRECTIVES NEED TO BE REVIEWED WITH HCP DR AMADEO TY SPOKE WITH THE DAUGHTER WHO DECLINED A COLONOSCOPY AT THIS TIME. POOR OVERALL QUALITY OF LIFE PATIENT IS FULL CODE
--- NOTE | 2019-04-25 10:05 | PN ---
Progress Note (short form) - Note Progress Note: SUBJECTIVE: Patient seen and examined in the ICU. 24Hr -decreased pressor requirements -more awake -Na slightly improved -no further transfusions, crit stable CXR: Increasing bilateral effusions, trach OBJECTIVE: Vital Signs Temp 98.1 F 04/25/19 06:00 Pulse 108 H 04/25/19 08:30 Resp 14 04/25/19 08:30 BP 100/76 04/25/19 08:00 Pulse Ox 100 04/25/19 08:30 Intake & Output 04/24/19 04/24/19 04/25/19 11:59 23:59 11:59 Intake Total 1610 2519.5 1223.2 Output Total 400 500 200 Balance 1210 2019.5 1023.2 Weight 70.715 kg 70.307 kg 74.117 kg Intake: IV 1210 1719.5 873.2 LACTATED RINGERS SOLUTION 1000 1150 700 1,000 ml In 1,000 ml @ 100 mls/hr IV ASDIR [facility] Rx#:[id number] Levophed - 8,000 Mcg In 210 268.4 56.3 Normal Saline - 492 ml @ 5 MCG/MIN 18.75 mls/hr IV TITR [facility] Rx#:[id number] Pitressin - 50 Units In 0 Normal Saline - 97.5 ml @ 2 UNITS/HR 4 mls/hr IVPB ASDIR [facility] Rx#: [id number] amiodarone drip 301.1 116.9 IVPB 400 750 350 Tube Irrigant 50 Output: Urine 400 500 200 De Santiago 400 500 200 Other: Voiding Method Indwelling Catheter Indwelling Catheter Indwelling Catheter Bowel Movement No No No Height 5 ft 8 in Body Mass Index (BMI) 23.6 Weight Measurement Method Built in [facility] Built in [facility] Active Medications Albuterol/Ipratropium (Duoneb -) 1 amp NEB RQID [facility] Last Admin: 04/25/19 08:31 Dose: 1 amp Chlorhexidine Gluconate (Hibiclens For Decolonization -) 1 applic TP HS [facility] Last Admin: 04/24/19 21:42 Dose: 1 applic Norepinephrine Bitartrate 8, (000 mcg/ Sodium Chloride) 500 mls @ 18.75 mls/hr IV TITR [facility]; Protocol Last Titration: 04/25/19 00:00 Dose: 2 mcg/min, 7.5 mls/hr Meropenem 1 gm/ Dextrose 100 mls @ 200 mls/hr IVPB Q8H-IV [facility] Last Admin: 04/25/19 01:44 Dose: 200 mls/hr Lactated Ringer's (Lactated Ringers Solution) 1,000 ml in 1,000 mls @ 100 mls/ hr IV ASDIR [facility] Last Admin: 04/24/19 17:00 Dose: 100 mls/hr Amiodarone HCl/Dextrose (Nexterone 360 Mg/200 Ml Bag) 360 mg in 200 mls @ 16.667 mls/hr IVPB ASDIR [facility]; Protocol Last Admin: 04/24/19 21:39 Dose: 16.667 mls/hr Vancomycin HCl (Vancomycin (Pre-Docked)) 1,000 mg in 250 mls @ 166.667 mls/hr IVPB 0100,1300 [facility]; Protocol Last Admin: 04/25/19 01:39 Dose: 166.667 mls/hr Insulin Aspart (Novolog Vial Sliding Scale -) 1 vial SQ ACHS [facility]; Protocol Last Admin: 04/25/19 06:25 Dose: 4 units Metoprolol Tartrate (Lopressor Injection -) 5 mg IVPUSH Q4H PRN PRN Reason: TACHYCARDIA Mupirocin (Bactroban Ointment (For Decolonization) -) 1 applic NS BID [facility] Stop: 04/27/19 21:59 Last Admin: 04/24/19 21:40 Dose: 1 applic Nystatin (Mycostatin Cream -) 1 applic TP BID [facility] Last Admin: 04/24/19 21:37 Dose: 1 applic Pantoprazole Sodium (Protonix Iv) 40 mg IVPUSH BID [facility] Last Admin: 04/24/19 21:38 Dose: 40 mg Vancomycin HCl (Vancomycin Oral Solution) 125 mg GT Q6HPO [facility] Last Admin: 04/24/19 23:26 Dose: 125 mg Gen: vented, more responsive Heart: irregular Lung: scattered rhonchi Abd: soft, nontender Ext: + edema Back: stage IV sacral ulcer with granulation tissue Neuro: awakens to voice Laboratory Results - last 24 hr 04/24/19 04/24/19 04/24/19 12:22 16:39 20:10 WBC RBC Hgb Hct MCV MCH MCHC RDW Plt Count MPV Absolute Neuts (auto) Neutrophils % Lymphocytes % Monocytes % Eosinophils % Basophils % Nucleated RBC % Sodium 153 H Potassium 3.9 Chloride 123 H Carbon Dioxide 25 Anion Gap 5 L BUN 77.4 H Creatinine 1.2 Est GFR (CKD-EPI)AfAm 50.48 Est GFR (CKD-EPI)NonAf 43.56 POC Glucometer 199 185 Random Glucose 179 H Calcium 7.9 L Phosphorus Magnesium Total Bilirubin AST ALT Alkaline Phosphatase Total Protein Albumin 04/24/19 04/25/19 04/25/19 21:32 05:23 05:50 WBC 18.2 H RBC 3.62 Hgb 9.3 L Hct 29.1 L MCV 80.5 MCH 25.7 MCHC 32.0 RDW 18.7 H Plt Count 173 MPV 11.3 H Absolute Neuts (auto) 15.6 H Neutrophils % 85.6 H Lymphocytes % 5.4 L D Monocytes % 3.7 L Eosinophils % 5.1 H D Basophils % 0.2 Nucleated RBC % 0 Sodium Potassium Chloride Carbon Dioxide Anion Gap BUN Creatinine Est GFR (CKD-EPI)AfAm Est GFR (CKD-EPI)NonAf POC Glucometer 159 208 Random Glucose Calcium Phosphorus Magnesium Total Bilirubin AST ALT Alkaline Phosphatase Total Protein Albumin 04/25/19 05:50 WBC RBC Hgb Hct MCV MCH MCHC RDW Plt Count MPV Absolute Neuts (auto) Neutrophils % Lymphocytes % Monocytes % Eosinophils % Basophils % Nucleated RBC % Sodium 150 H Potassium 3.9 Chloride 121 H Carbon Dioxide 21 Anion Gap 8 BUN 71.2 H Creatinine 1.1 Est GFR (CKD-EPI)AfAm 56.08 Est GFR (CKD-EPI)NonAf 48.39 POC Glucometer Random Glucose 234 H Calcium 8.1 L Phosphorus 3.1 Magnesium 2.7 H Total Bilirubin 0.4 AST 33 ALT 71 H Alkaline Phosphatase 220 H Total Protein 5.2 L Albumin 1.4 L Microbiology 04/22/19 14:42 Blood - Peripheral Venous Blood Culture - Final S Aureus 04/24/19 06:00 Blood - Central Line Blood Culture - Preliminary NO GROWTH OBTAINED AFTER 24 HOURS, INCUBATION TO CONTINUE FOR 4 DAYS. 04/24/19 06:00 Blood - Central Line Blood Culture - Preliminary NO GROWTH OBTAINED AFTER 24 HOURS, INCUBATION TO CONTINUE FOR 4 DAYS. 04/24/19 06:00 Sputum - Endotrachea Suction/Ventilator Gram Stain - Final 04/22/19 14:42 Blood - Peripheral Venous Blood Culture - Preliminary NO GROWTH OBTAINED AFTER 48 HOURS, INCUBATION TO CONTINUE FOR 3 DAYS. 04/22/19 15:23 Ulcer Gram Stain - Final 04/22/19 15:23 Ulcer Wound Culture - Preliminary Non Lactose Fermenting Gnb Staphylococcus Latex Coag Pos Pending Organism 04/22/19 14:50 Stool Salmonella/Shigella Culture - Final NO GROWTH OF SALMONELLA OR SHIGELLA SPECIES OBTAINED 04/22/19 14:50 Stool Campylobacter Culture - Final NO GROWTH OF CAMPYLOBACTER SPECIES OBTAINED 04/22/19 14:50 Stool Yersinia Culture - Final NO GROWTH OF YERSINIA SPECIES OBTAINED 04/22/19 14:50 Stool Vibrio Culture - Final NO GROWTH OF VIBRIO SPECIES OBTAINED 04/22/19 14:50 Stool Escherichia coli 0157 Culture - Final NO GROWTH OF E COLI 0157 OBTAINED 04/22/19 16:00 Urine - Urine Clean Catch Urine Culture - Preliminary Non Lactose Fermenting Gnb Pending Organism 04/22/19 14:50 Stool Clostridioides difficile Antigen - Final 04/22/19 14:50 Stool Clostridioides difficile Toxin Assay - Final ASSESSMENT AND PLAN: UTI Pneumonia Suspected Sacral Decubitus Ulcer Infection Septic Shock GI Bleed likely Upper Acute Blood Loss Anemia Atrial Fibrillation with RVR CAD COPD HTN DM h/o CVA - IV antibiotics per ID - f/u cultures - IVF boluses to keep CVP 8-12 - pressors to maintain MAP >65 - protonix - transfuse PRBC for hb < 8 - monitor H/H - hold anticoagulation - rate control - continue volume assist control - NPO, can consider rechallenging as no plan for colo - DVT/GI prophylaxis - ICU monitoring for hemodynamic instability Liliana ACNP [id number] 35min cct spent evaluating pt and formulating plan
[2019-04-25] MEDS: AMIODARONE IN DEXTROSE,ISO-OSM 360 MG/200 ML BAG IVPB SCH (10:14)
[2019-04-25] MEDS: MUPIROCIN 2% TOPICAL OINTMENT FOR DECOLONIZATION NS SCH ×2 (10:17→21:31)
[2019-04-25] MEDS: NYSTATIN 100,000 UNIT/GM TOPICAL CREAM 15 GM TUBE TP SCH ×2 (10:21→21:31)
[2019-04-25] MEDS: PANTOPRAZOLE SODIUM 40 MG VIAL IVPUSH SCH ×2 (10:25→21:31)
--- NOTE | 2019-04-25 10:34 | PN ---
Progress Note (short form) - Note Progress Note: awake trach to vent remains on levopohed and amiodarone Vital Signs Period Temp Pulse Resp BP Sys/Okeefe Pulse Ox Last 24 Hr 98.1 F-98.6 F 102-130 12-20 94-123/47-76 100-100 cor-rrr lungs decreased bs at bases abd soft, +GT ext +edema +sacral ulcer trach to vent CBC, BMP 04/25/19 05:50 04/25/19 05:50 Microbiology 04/22/19 14:42 Blood - Peripheral Venous Blood Culture - Final S Aureus 04/24/19 06:00 Blood - Central Line Blood Culture - Preliminary NO GROWTH OBTAINED AFTER 24 HOURS, INCUBATION TO CONTINUE FOR 4 DAYS. 04/24/19 06:00 Blood - Central Line Blood Culture - Preliminary NO GROWTH OBTAINED AFTER 24 HOURS, INCUBATION TO CONTINUE FOR 4 DAYS. 04/24/19 06:00 Sputum - Endotrachea Suction/Ventilator Gram Stain - Final 04/22/19 14:42 Blood - Peripheral Venous Blood Culture - Preliminary NO GROWTH OBTAINED AFTER 48 HOURS, INCUBATION TO CONTINUE FOR 3 DAYS. 04/22/19 15:23 Ulcer Gram Stain - Final 04/22/19 15:23 Ulcer Wound Culture - Preliminary Non Lactose Fermenting Gnb Staphylococcus Latex Coag Pos Pending Organism 04/22/19 14:50 Stool Salmonella/Shigella Culture - Final NO GROWTH OF SALMONELLA OR SHIGELLA SPECIES OBTAINED 04/22/19 14:50 Stool Campylobacter Culture - Final NO GROWTH OF CAMPYLOBACTER SPECIES OBTAINED 04/22/19 14:50 Stool Yersinia Culture - Final NO GROWTH OF YERSINIA SPECIES OBTAINED 04/22/19 14:50 Stool Vibrio Culture - Final NO GROWTH OF VIBRIO SPECIES OBTAINED 04/22/19 14:50 Stool Escherichia coli 0157 Culture - Final NO GROWTH OF E COLI 0157 OBTAINED 04/22/19 16:00 Urine - Urine Clean Catch Urine Culture - Preliminary Non Lactose Fermenting Gnb Pending Organism 04/22/19 14:50 Stool Clostridioides difficile Antigen - Final 04/22/19 14:50 Stool Clostridioides difficile Toxin Assay - Final cxray bibasilar pleural/parenchymal changes Current Medications Albuterol/Ipratropium (Duoneb -) 1 amp NEB RQID [facility] Last Admin: 04/25/19 08:31 Dose: 1 amp Chlorhexidine Gluconate (Hibiclens For Decolonization -) 1 applic TP HS [facility] Last Admin: 04/24/19 21:42 Dose: 1 applic Norepinephrine Bitartrate 8, (000 mcg/ Sodium Chloride) 500 mls @ 18.75 mls/hr IV TITR [facility]; Protocol Last Titration: 04/25/19 00:00 Dose: 2 mcg/min, 7.5 mls/hr Meropenem 1 gm/ Dextrose 100 mls @ 200 mls/hr IVPB Q8H-IV [facility] Last Admin: 04/25/19 10:17 Dose: 200 mls/hr Lactated Ringer's (Lactated Ringers Solution) 1,000 ml in 1,000 mls @ 100 mls/ hr IV ASDIR [facility] Last Admin: 04/24/19 17:00 Dose: 100 mls/hr Amiodarone HCl/Dextrose (Nexterone 360 Mg/200 Ml Bag) 360 mg in 200 mls @ 16.667 mls/hr IVPB ASDIR [facility]; Protocol Last Admin: 04/25/19 10:14 Dose: 16.667 mls/hr Vancomycin HCl (Vancomycin (Pre-Docked)) 1,000 mg in 250 mls @ 166.667 mls/hr IVPB 0100,1300 [facility]; Protocol Last Admin: 04/25/19 01:39 Dose: 166.667 mls/hr Insulin Aspart (Novolog Vial Sliding Scale -) 1 vial SQ ACHS [facility]; Protocol Last Admin: 04/25/19 06:25 Dose: 4 units Metoprolol Tartrate (Lopressor Injection -) 5 mg IVPUSH Q4H PRN PRN Reason: TACHYCARDIA Mupirocin (Bactroban Ointment (For Decolonization) -) 1 applic NS BID [facility] Stop: 04/27/19 21:59 Last Admin: 04/25/19 10:17 Dose: 1 applic Nystatin (Mycostatin Cream -) 1 applic TP BID [facility] Last Admin: 04/25/19 10:21 Dose: 1 applic Pantoprazole Sodium (Protonix Iv) 40 mg IVPUSH BID [facility] Last Admin: 04/25/19 10:25 Dose: 40 mg Vancomycin HCl (Vancomycin Oral Solution) 125 mg GT Q6HPO [facility] Last Admin: 04/24/19 23:26 Dose: 125 mg a/p septic shock MRSA bacteremia cdiff chronic resp failure afib history of MDORO sacral ulcer dementia check vanco trough continue vanco/meropenem continue po vancomycin for cdiff echo ordered repeat blood cultures negative after 24 hours
--- NOTE | 2019-04-25 13:45 | PN ---
Progress Note (short form) - Note Progress Note: No bleeding noted. Abdomen soft, active bowel sounds, no tenderness on exam. CBC WBC 18.2 K/mm3 (4.0-10.0) H 04/25/19 05:50 RBC 3.62 M/mm3 (3.60-5.2) 04/25/19 05:50 Hgb 9.3 GM/dL (10.7-15.3) L 04/25/19 05:50 Hct 29.1 % (32.4-45.2) L 04/25/19 05:50 MCV 80.5 fl (80-96) 04/25/19 05:50 MCH 25.7 pg (25.7-33.7) 04/25/19 05:50 MCHC 32.0 g/dl (32.0-36.0) 04/25/19 05:50 RDW 18.7 % (11.6-15.6) H 04/25/19 05:50 Plt Count 173 K/MM3 (134-434) 04/25/19 05:50 MPV 11.3 fl (7.5-11.1) H 04/25/19 05:50 Absolute Neuts (auto) 15.6 K/mm3 (1.5-8.0) H 04/25/19 05:50 Neutrophils % 85.6 % (42.8-82.8) H 04/25/19 05:50 Lymphocytes % 5.4 % (8-40) L D 04/25/19 05:50 Monocytes % 3.7 % (3.8-10.2) L 04/25/19 05:50 Eosinophils % 5.1 % (0-4.5) H D 04/25/19 05:50 Basophils % 0.2 % (0-2.0) 04/25/19 05:50 Nucleated RBC % 0 % (0-0) 04/25/19 05:50 Hgb stable; WBC elevated. No indication for emergency GI procedures at present.
[2019-04-25] MEDS: LACTATED RINGERS SOLUTION 1,000 ML/1,000 ML INFUS.BAG IV SCH (18:20)
[2019-04-25] MEDS: CHLORHEXIDINE GLUCONATE 4% CLEANSER FOR DECOLONIZATION TP SCH (21:31)
--- NOTE | 2019-04-25 23:53 | PN ---
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 cameron This is a 79-year-old female with the history of sepsis, recent polymicrobial septicemia related to sacral decubitus, chronic ventilatory support, chronic anemia and currently admitted with septic shock and She is receiving intravenous fluids as well as intravenous pressure support oliguric renal failure/hemodynamically Current Medications Albuterol/Ipratropium (Duoneb -) 1 amp NEB RQID [facility] Last Admin: 04/25/19 20:45 Dose: 1 amp Chlorhexidine Gluconate (Hibiclens For Decolonization -) 1 applic TP HS [facility] Last Admin: 04/25/19 21:31 Dose: 1 applic Norepinephrine Bitartrate 8, (000 mcg/ Sodium Chloride) 500 mls @ 18.75 mls/hr IV TITR [facility]; Protocol Last Admin: 04/25/19 07:00 Dose: Not Given Meropenem 1 gm/ Dextrose 100 mls @ 200 mls/hr IVPB Q8H-IV [facility] Last Admin: 04/25/19 17:39 Dose: 200 mls/hr Lactated Ringer's (Lactated Ringers Solution) 1,000 ml in 1,000 mls @ 100 mls/ hr IV ASDIR [facility] Last Admin: 04/25/19 18:20 Dose: 100 mls/hr Amiodarone HCl/Dextrose (Nexterone 360 Mg/200 Ml Bag) 360 mg in 200 mls @ 16.667 mls/hr IVPB ASDIR [facility]; Protocol Last Admin: 04/25/19 10:14 Dose: 16.667 mls/hr Vancomycin HCl (Vancomycin (Pre-Docked)) 1,000 mg in 250 mls @ 166.667 mls/hr IVPB 0100,1300 [facility]; Protocol Last Admin: 04/25/19 12:53 Dose: 166.667 mls/hr Insulin Aspart (Novolog Vial Sliding Scale -) 1 vial SQ ACHS [facility]; Protocol Last Admin: 04/25/19 21:32 Dose: 2 units Metoprolol Tartrate (Lopressor Injection -) 5 mg IVPUSH Q4H PRN PRN Reason: TACHYCARDIA Mupirocin (Bactroban Ointment (For Decolonization) -) 1 applic NS BID [facility] Stop: 04/27/19 21:59 Last Admin: 04/25/19 21:31 Dose: 1 applic Nystatin (Mycostatin Cream -) 1 applic TP BID [facility] Last Admin: 04/25/19 21:31 Dose: 1 applic Pantoprazole Sodium (Protonix Iv) 40 mg IVPUSH BID [facility] Last Admin: 04/25/19 21:31 Dose: 40 mg Vancomycin HCl (Vancomycin Oral Solution) 125 mg GT Q6HPO [facility] Last Admin: 04/26/19 00:13 Dose: 125 mg Last Vital Signs Temp Pulse Resp BP Pulse Ox 98.3 F 101 H 16 119/57 L 100 04/25/19 22:00 04/25/19 22:00 04/26/19 00:33 04/25/19 22:00 04/25/19 21:00 Intake & Output 04/25/19 04/25/19 04/26/19 15:59 23:59 07:59 Intake Total 2074 Output Total 450 Balance 1624 awake on vent via trach Lungs clear Heart reg abd soft nontender CBC, BMP 04/25/19 05:50 04/25/19 05:50 Prerenal azotemia Hypernatremia improving low urine output/ hemodynamically mediated Plan- f/u labs
[2019-04-26] MEDS: VANCOMYCIN 250 MG/5 ML ORAL SOLUTION GT SCH ×4 (00:13→17:22)
[2019-04-26] MEDS: VANCOMYCIN 1 GRAM (PRE-DOCKED) 1,000 MG/250 ML BAG IVPB SCH (01:55)
[2019-04-26] MEDS ORDERED: DEXTROSE 5%-WATER 100 ML IVPB ONE ×2 (02:46→08:30)
[2019-04-26] MEDS ORDERED: MEROPENEM 1 GM VIAL (RESTRICTED TO ID) IVPB ONE ×2 (02:46→08:29)
[2019-04-26] MEDS: MEROPENEM 1 GM in DEXTROSE 5%-WATER 100 ML IVPB SCH (02:48)
[2019-04-26 06:29] LABS: HEMATOCRIT 28.9 % (32.4-45.2); HEMOGLOBIN 9.2 GM/dL (10.7-15.3); MCHC 31.9 g/dl (32.0-36.0); MEAN CELL VOLUME 81.7 fl (80-96); MEAN PLT VOLUME 10.8 fl (7.5-11.1); PLATELET COUNT 162 K/MM3 (134-434); RBC 3.54 M/mm3 (3.60-5.2); RDW 18.9 % (11.6-15.6)
[2019-04-26] MEDS: INSULIN SLIDING SCALE (NOVOLOG) 1 VIAL SQ SCH ×4 (06:38→23:05)
[2019-04-26 06:41] LABS: BLOOD UREA NITROGEN 53.6 mg/dL (7-18); CREATININE 0.9 mg/dL (0.55-1.3); MAGNESIUM 2.2 mg/dL (1.8-2.4); PHOSPHOROUS 2.8 mg/dL (2.5-4.9); POTASSIUM 3.5 mmol/L (3.5-5.1)
[2019-04-26] MEDS: ALBUTEROL SO4 2.5/IPRATROPIUM 0.5 INH SOL 3 ML VIAL.NEB. NEB SCH ×2 (08:25→20:23)
[2019-04-26] MEDS ORDERED: PT OWN MED DRAWER 7, Y5N ONE ×4 (08:59→20:57)
--- NOTE | 2019-04-26 09:25 | PN ---
Progress Note (short form) - Note Progress Note: awake trach to vent pressors being tapered Vital Signs Period Temp Pulse Resp BP Sys/Okeefe Pulse Ox Last 24 Hr 98.2 F-98.8 F 94-113 12-20 111-123/50-90 100-100 cor-rrr lungs decreased bs at bases abd gt site clean, soft,nt ext no edema sacral ulcer- clean, no odor no drainage stage 3-4 craven C CBC, BMP 04/26/19 05:20 04/26/19 05:20 Microbiology 04/24/19 06:00 Blood - Central Line Blood Culture - Preliminary NO GROWTH OBTAINED AFTER 48 HOURS, INCUBATION TO CONTINUE FOR 3 DAYS. 04/24/19 06:00 Blood - Central Line Blood Culture - Preliminary NO GROWTH OBTAINED AFTER 48 HOURS, INCUBATION TO CONTINUE FOR 3 DAYS. 04/22/19 14:42 Blood - Peripheral Venous Blood Culture - Preliminary NO GROWTH OBTAINED AFTER 72 HOURS, INCUBATION TO CONTINUE FOR 2 DAYS. 04/22/19 15:23 Ulcer Gram Stain - Final 04/22/19 15:23 Ulcer Wound Culture - Preliminary Klebsiella Pneumoniae-CRE Presumptive Mrsa (Pbp2a Pos) Gram Negative Hermann 04/22/19 16:00 Urine - Urine Clean Catch Urine Culture - Preliminary Non Lactose Fermenting Gnb Group D Strep Or Entero Coccus 04/24/19 06:00 Sputum - Endotrachea Suction/Ventilator Gram Stain - Final 04/24/19 06:00 Sputum - Endotrachea Suction/Ventilator Sputum Culture - Preliminary NORMAL RESPIRATORY SAMANTHA 04/22/19 14:42 Blood - Peripheral Venous Blood Culture - Final Mr S Aureus 04/22/19 14:50 Stool Salmonella/Shigella Culture - Final NO GROWTH OF SALMONELLA OR SHIGELLA SPECIES OBTAINED 04/22/19 14:50 Stool Campylobacter Culture - Final NO GROWTH OF CAMPYLOBACTER SPECIES OBTAINED 04/22/19 14:50 Stool Yersinia Culture - Final NO GROWTH OF YERSINIA SPECIES OBTAINED 04/22/19 14:50 Stool Vibrio Culture - Final NO GROWTH OF VIBRIO SPECIES OBTAINED 04/22/19 14:50 Stool Escherichia coli 0157 Culture - Final NO GROWTH OF E COLI 0157 OBTAINED 04/22/19 14:50 Stool Clostridioides difficile Antigen - Final 04/22/19 14:50 Stool Clostridioides difficile Toxin Assay - Final Active Medications Albuterol/Ipratropium (Duoneb -) 1 amp NEB RQID [facility] Last Admin: 04/26/19 08:25 Dose: 1 amp Chlorhexidine Gluconate (Hibiclens For Decolonization -) 1 applic TP HS [facility] Last Admin: 04/25/19 21:31 Dose: 1 applic Norepinephrine Bitartrate 8, (000 mcg/ Sodium Chloride) 500 mls @ 18.75 mls/hr IV TITR [facility]; Protocol Last Titration: 04/26/19 06:53 Dose: 3 mcg/min, 11.25 mls/hr Meropenem 1 gm/ Dextrose 100 mls @ 200 mls/hr IVPB Q8H-IV [facility] Last Admin: 04/26/19 02:48 Dose: 200 mls/hr Lactated Ringer's (Lactated Ringers Solution) 1,000 ml in 1,000 mls @ 100 mls/ hr IV ASDIR [facility] Last Admin: 04/25/19 18:20 Dose: 100 mls/hr Amiodarone HCl/Dextrose (Nexterone 360 Mg/200 Ml Bag) 360 mg in 200 mls @ 16.667 mls/hr IVPB ASDIR [facility]; Protocol Last Admin: 04/25/19 10:14 Dose: 16.667 mls/hr Vancomycin HCl (Vancomycin (Pre-Docked)) 1,000 mg in 250 mls @ 166.667 mls/hr IVPB 0100,1300 [facility]; Protocol Last Admin: 04/26/19 01:55 Dose: Not Given Insulin Aspart (Novolog Vial Sliding Scale -) 1 vial SQ ACHS [facility]; Protocol Last Admin: 04/26/19 06:38 Dose: 4 units Metoprolol Tartrate (Lopressor Injection -) 5 mg IVPUSH Q4H PRN PRN Reason: TACHYCARDIA Mupirocin (Bactroban Ointment (For Decolonization) -) 1 applic NS BID [facility] Stop: 04/27/19 21:59 Last Admin: 04/25/19 21:31 Dose: 1 applic Nystatin (Mycostatin Cream -) 1 applic TP BID [facility] Last Admin: 04/25/19 21:31 Dose: 1 applic Pantoprazole Sodium (Protonix Iv) 40 mg IVPUSH BID [facility] Last Admin: 04/25/19 21:31 Dose: 40 mg Vancomycin HCl (Vancomycin Oral Solution) 125 mg GT Q6HPO [facility] Last Admin: 04/26/19 06:38 Dose: 125 mg cxray bilateral effusions a/p septic shock MRSA bacteremia cdiff colitis chronic resp failure afib history of MDORO sacral ulcer dementia continue vancomycin by levels for MRSA bacteremia po vancomycin for cdiff colitis d/c meropenem CRE- contact isolation reviewed with RN
[2019-04-26] MEDS: NYSTATIN 100,000 UNIT/GM TOPICAL CREAM 15 GM TUBE TP SCH ×2 (10:11→21:25)
[2019-04-26] MEDS: MUPIROCIN 2% TOPICAL OINTMENT FOR DECOLONIZATION NS SCH ×2 (10:11→21:25)
[2019-04-26] MEDS: AMIODARONE IN DEXTROSE,ISO-OSM 360 MG/200 ML BAG IVPB SCH (10:11)
[2019-04-26] MEDS: PANTOPRAZOLE SODIUM 40 MG VIAL IVPUSH SCH ×2 (10:12→21:26)
--- NOTE | 2019-04-26 10:53 | PN ---
Progress Note (short form) - Note Progress Note: SUBJECTIVE: Patient seen and examined in the ICU. 24Hr -almost off pressors, will need diuresis once off -abx being tapered by ID, may be colonization CXR: Increasing bilateral effusions, trach OBJECTIVE: Vital Signs Temp 97.4 F L 04/26/19 10:00 Pulse 102 H 04/26/19 10:00 Resp 16 04/26/19 10:00 BP 117/94 04/26/19 10:00 Pulse Ox 100 04/26/19 08:26 Intake & Output 04/25/19 04/25/19 04/26/19 11:59 23:59 11:59 Intake Total 1223.2 2716.2 953.5 Output Total 200 850 900 Balance 1023.2 1866.2 53.5 Weight 74.117 kg 75.568 kg Intake: IV 873.2 2266.2 903.5 LACTATED RINGERS SOLUTION 700 1700 700 1,000 ml In 1,000 ml @ 100 mls/hr IV ASDIR [facility] Rx#:[id number] Levophed - 8,000 Mcg In 56.3 300 86.6 Normal Saline - 492 ml @ 5 MCG/MIN 18.75 mls/hr IV TITR [facility] Rx#:[id number] amiodarone drip 116.9 266.2 116.9 IVPB 350 400 50 Tube Irrigant 50 Output: Urine 200 850 900 [place] Santiago 200 850 900 Other: Voiding Method Indwelling Catheter Indwelling Catheter Indwelling Catheter Bowel Movement No No No Weight Measurement Method Built in [facility] Built in [facility] Active Medications Albuterol/Ipratropium (Duoneb -) 1 amp NEB RQID [facility] Last Admin: 04/26/19 08:25 Dose: 1 amp Chlorhexidine Gluconate (Hibiclens For Decolonization -) 1 applic TP HS [facility] Last Admin: 04/25/19 21:31 Dose: 1 applic Norepinephrine Bitartrate 8, (000 mcg/ Sodium Chloride) 500 mls @ 18.75 mls/hr IV TITR [facility]; Protocol Last Titration: 04/26/19 06:53 Dose: 3 mcg/min, 11.25 mls/hr Lactated Ringer's (Lactated Ringers Solution) 1,000 ml in 1,000 mls @ 100 mls/ hr IV ASDIR [facility] Last Admin: 04/25/19 18:20 Dose: 100 mls/hr Amiodarone HCl/Dextrose (Nexterone 360 Mg/200 Ml Bag) 360 mg in 200 mls @ 16.667 mls/hr IVPB ASDIR [facility]; Protocol Last Admin: 04/26/19 10:11 Dose: 16.667 mls/hr Insulin Aspart (Novolog Vial Sliding Scale -) 1 vial SQ ACHS [facility]; Protocol Last Admin: 04/26/19 06:38 Dose: 4 units Metoprolol Tartrate (Lopressor Injection -) 5 mg IVPUSH Q4H PRN PRN Reason: TACHYCARDIA Mupirocin (Bactroban Ointment (For Decolonization) -) 1 applic NS BID [facility] Stop: 04/27/19 21:59 Last Admin: 04/26/19 10:11 Dose: 1 applic Nystatin (Mycostatin Cream -) 1 applic TP BID [facility] Last Admin: 04/26/19 10:11 Dose: 1 applic Pantoprazole Sodium (Protonix Iv) 40 mg IVPUSH BID [facility] Last Admin: 04/26/19 10:12 Dose: 40 mg Vancomycin HCl (Vancomycin Oral Solution) 125 mg GT Q6HPO [facility] Last Admin: 04/26/19 06:38 Dose: 125 mg Gen: vented, more responsive Heart: irregular, tachy Lung: scattered rhonchi, moderate secretions Abd: soft, nontender Ext: + edema Back: stage IV sacral ulcer , no exudate, non-malodorous Neuro: awakens to voice, follows simple. profoundly weak CBC, BMP 04/26/19 05:20 04/26/19 05:20 Microbiology 04/22/19 14:42 Blood - Peripheral Venous Blood Culture - Final S Aureus 04/24/19 06:00 Blood - Central Line Blood Culture - Preliminary NO GROWTH OBTAINED AFTER 24 HOURS, INCUBATION TO CONTINUE FOR 4 DAYS. 04/24/19 06:00 Blood - Central Line Blood Culture - Preliminary NO GROWTH OBTAINED AFTER 24 HOURS, INCUBATION TO CONTINUE FOR 4 DAYS. 04/24/19 06:00 Sputum - Endotrachea Suction/Ventilator Gram Stain - Final 04/22/19 14:42 Blood - Peripheral Venous Blood Culture - Preliminary NO GROWTH OBTAINED AFTER 48 HOURS, INCUBATION TO CONTINUE FOR 3 DAYS. 04/22/19 15:23 Ulcer Gram Stain - Final 04/22/19 15:23 Ulcer Wound Culture - Preliminary Non Lactose Fermenting Gnb Staphylococcus Latex Coag Pos Pending Organism 04/22/19 14:50 Stool Salmonella/Shigella Culture - Final NO GROWTH OF SALMONELLA OR SHIGELLA SPECIES OBTAINED 04/22/19 14:50 Stool Campylobacter Culture - Final NO GROWTH OF CAMPYLOBACTER SPECIES OBTAINED 04/22/19 14:50 Stool Yersinia Culture - Final NO GROWTH OF YERSINIA SPECIES OBTAINED 04/22/19 14:50 Stool Vibrio Culture - Final NO GROWTH OF VIBRIO SPECIES OBTAINED 04/22/19 14:50 Stool Escherichia coli 0157 Culture - Final NO GROWTH OF E COLI 0157 OBTAINED 04/22/19 16:00 Urine - Urine Clean Catch Urine Culture - Preliminary Non Lactose Fermenting Gnb Pending Organism 04/22/19 14:50 Stool Clostridioides difficile Antigen - Final 04/22/19 14:50 Stool Clostridioides difficile Toxin Assay - Final ASSESSMENT AND PLAN: UTI Pneumonia Suspected Sacral Decubitus Ulcer Infection Septic Shock GI Bleed likely Upper Acute Blood Loss Anemia Atrial Fibrillation with RVR CAD COPD HTN DM h/o CVA - IV antibiotics per ID - f/u cultures - IVF boluses to keep CVP 8-12 - pressors to maintain MAP >65 - protonix - transfuse PRBC for hb < 8 - monitor H/H - hold anticoagulation, - rate control - continue volume assist control, not candidate for weaning - NPO, can consider rechallenging as no plan for colo - DVT/GI prophylaxis - ICU monitoring for hemodynamic instability L[place] Jack ACNP [id number] 35min cct spent evaluating pt and formulating plan
--- NOTE | 2019-04-26 13:16 | PN ---
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 NO FEVER OR CHILLS VENT SUPPORT STABLE - Current Medication List Current Medications: Active Medications Albuterol/Ipratropium (Duoneb -) 1 amp NEB RQID [facility] Last Admin: 04/26/19 08:25 Dose: 1 amp Chlorhexidine Gluconate (Hibiclens For Decolonization -) 1 applic TP HS [facility] Last Admin: 04/25/19 21:31 Dose: 1 applic Collagenase (Santyl -) 1 applic TP DAILY [facility]; Protocol Norepinephrine Bitartrate 8, (000 mcg/ Sodium Chloride) 500 mls @ 18.75 mls/hr IV TITR [facility]; Protocol Last Titration: 04/26/19 10:30 Dose: 1.5 mcg/min, 5.62 mls/hr Lactated Ringer's (Lactated Ringers Solution) 1,000 ml in 1,000 mls @ 100 mls/ hr IV ASDIR [facility] Last Admin: 04/25/19 18:20 Dose: 100 mls/hr Amiodarone HCl/Dextrose (Nexterone 360 Mg/200 Ml Bag) 360 mg in 200 mls @ 16.667 mls/hr IVPB ASDIR [facility]; Protocol Last Admin: 04/26/19 10:11 Dose: 16.667 mls/hr Insulin Aspart (Novolog Vial Sliding Scale -) 1 vial SQ ACHS [facility]; Protocol Last Admin: 04/26/19 11:54 Dose: 4 units Metoprolol Tartrate (Lopressor Injection -) 5 mg IVPUSH Q4H PRN PRN Reason: TACHYCARDIA Mupirocin (Bactroban Ointment (For Decolonization) -) 1 applic NS BID [facility] Stop: 04/27/19 21:59 Last Admin: 04/26/19 10:11 Dose: 1 applic Nystatin (Mycostatin Cream -) 1 applic TP BID [facility] Last Admin: 04/26/19 10:11 Dose: 1 applic Pantoprazole Sodium (Protonix Iv) 40 mg IVPUSH BID [facility] Last Admin: 04/26/19 10:12 Dose: 40 mg Vancomycin HCl (Vancomycin Oral Solution) 125 mg GT Q6HPO [facility] Last Admin: 04/26/19 11:55 Dose: 125 mg - Objective Vital Signs: Vital Signs Temperature 97.4 F L 04/26/19 10:00 Pulse Rate 100 H 04/26/19 11:55 Respiratory Rate 17 04/26/19 12:14 Blood Pressure 114/75 04/26/19 11:55 O2 Sat by Pulse Oximetry (%) 100 04/26/19 08:26 Constitutional: Yes: Mild Distress Neck: Yes: Other (TRACHEOSTOMY +) Cardiovascular: Yes: Pulse Irregular Respiratory: Yes: Mechanically Ventilated Gastrointestinal: Yes: Soft, Tenderness (GTUBE) Genitourinary: Yes: [place] Present Musculoskeletal: Yes: Muscle Weakness Integumentary: Yes: Pressure Ulcer (SACRAL ULCER STAGE 3 , AND APPROX. 5CM IN DIAMTER) Neurological: Yes: Aphasia, Pre-Existing Deficit Labs: CBC, BMP 04/26/19 05:20 04/26/19 05:20 INR, PTT INR 1.11 (0.83-1.09) H 04/24/19 06:00 Problem List - Problems (1) History of CVA (cerebrovascular accident) Code(s): Z86.73 - PRSNL HX OF TIA (TIA), AND CEREB INFRC W/O RESID DEFICITS (2) CONOR (acute kidney injury) Code(s): N17.9 - ACUTE KIDNEY FAILURE, UNSPECIFIED (3) Anemia Code(s): D64.9 - ANEMIA, UNSPECIFIED (4) Atrial fibrillation with RVR Code(s): I48.91 - UNSPECIFIED ATRIAL FIBRILLATION (5) NSTEMI (non-ST elevated myocardial infarction) Code(s): I21.4 - NON-ST ELEVATION (NSTEMI) MYOCARDIAL INFARCTION (6) Septic shock Code(s): A41.9 - SEPSIS, UNSPECIFIED ORGANISM; R65.21 - SEVERE SEPSIS WITH SEPTIC SHOCK (7) Severe sepsis Code(s): A41.9 - SEPSIS, UNSPECIFIED ORGANISM; R65.20 - SEVERE SEPSIS WITHOUT SEPTIC SHOCK (8) Stage 4 skin ulcer of sacral region Code(s): L98.429 - NON-PRESSURE CHRONIC ULCER OF BACK WITH UNSPECIFIED SEVERITY (9) Diastolic dysfunction Code(s): I51.89 - OTHER ILL-DEFINED HEART DISEASES (10) Guaiac + stool Code(s): R19.5 - OTHER FECAL ABNORMALITIES (11) Sacral decubitus ulcer Code(s): L89.159 - PRESSURE ULCER OF SACRAL REGION, UNSPECIFIED STAGE Qualifiers: Pressure injury stage: stage 4 Qualified Code(s): L89.154 - Pressure ulcer of sacral region, stage 4 (12) Ventilator dependent Code(s): Z99.11 - DEPENDENCE ON RESPIRATOR [VENTILATOR] STATUS (13) Atrial fibrillation Code(s): I48.91 - UNSPECIFIED ATRIAL FIBRILLATION Qualifiers: Atrial fibrillation type: permanent Qualified Code(s): I48.21 - Permanent atrial fibrillation (14) COPD (chronic obstructive pulmonary disease) Code(s): J44.9 - CHRONIC OBSTRUCTIVE PULMONARY DISEASE, UNSPECIFIED Qualifiers: COPD type: unspecified COPD Qualified Code(s): J44.9 - Chronic obstructive pulmonary disease, unspecified (15) Diabetes mellitus Code(s): E11.9 - TYPE 2 DIABETES MELLITUS WITHOUT COMPLICATIONS Qualifiers: Diabetes mellitus type: type 2 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: without mcc use Diabetes mellitus complication status: without complication Qualified Code(s): E11.9 - Type 2 diabetes mellitus without complications (16) H/O mitral valve replacement Code(s): Z95.2 - PRESENCE OF PROSTHETIC HEART VALVE (17) Lung nodule Code(s): R91.1 - SOLITARY PULMONARY NODULE (18) Pacemaker Code(s): Z95.0 - PRESENCE OF CARDIAC PACEMAKER (19) Sacral decubitus ulcer, stage III Code(s): L89.153 - PRESSURE ULCER OF SACRAL REGION, STAGE 3 Assessment/Plan OFFLOAD SACRAL ULCER WITH PILLOWS AND FREQUENT TURNING OPTIMIZE NUTRITION FOR BETTER HEALING COLLAGENASE TO ULCER AFTER SALINE CLEANSE DAILY ABX PER ID VENT DEPENDENT UNABLE TO WEAN OFF OVERALL QUALITY OF LIFE IS POOR ADVANCED DIRECTIVES, PALLIATIVE CARE CONSULT
[2019-04-26] MEDS: NOREPINEPHRINE BITARTRATE 8,000 MCG in SODIUM CHLORIDE 492 ML IV SCH (14:00)
--- NOTE | 2019-04-26 16:01 | PN ---
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, recent polymicrobial septicemia related to sacral decubitus, chronic ventilatory support, chronic anemia and currently admitted with septic shock and She is receiving intravenous fluids as well as intravenous pressure support oliguric renal failure/hemodynamically Current Medications Albuterol/Ipratropium (Duoneb -) 1 amp NEB RQID [facility] Last Admin: 04/26/19 08:25 Dose: 1 amp Amino Acids (Prosource No Carb Liquid Pkt) 30 ml GT BID@0800,1730 [facility] Ascorbic Acid (Vitamin C -) 250 mg GT DAILY [facility] Chlorhexidine Gluconate (Hibiclens For Decolonization -) 1 applic TP HS [facility] Last Admin: 04/25/19 21:31 Dose: 1 applic Collagenase (Santyl -) 1 applic TP DAILY [facility]; Protocol Norepinephrine Bitartrate 8, (000 mcg/ Sodium Chloride) 500 mls @ 18.75 mls/hr IV TITR [facility]; Protocol Last Titration: 04/26/19 10:30 Dose: 1.5 mcg/min, 5.62 mls/hr Lactated Ringer's (Lactated Ringers Solution) 1,000 ml in 1,000 mls @ 100 mls/ hr IV ASDIR [facility] Last Admin: 04/25/19 18:20 Dose: 100 mls/hr Amiodarone HCl/Dextrose (Nexterone 360 Mg/200 Ml Bag) 360 mg in 200 mls @ 16.667 mls/hr IVPB ASDIR [facility]; Protocol Last Admin: 04/26/19 10:11 Dose: 16.667 mls/hr Insulin Aspart (Novolog Vial Sliding Scale -) 1 vial SQ ACHS [facility]; Protocol Last Admin: 04/26/19 11:54 Dose: 4 units Metoprolol Tartrate (Lopressor Injection -) 5 mg IVPUSH Q4H PRN PRN Reason: TACHYCARDIA Multi-Ingredient Ointment (Zinc Oxide) 1 applic TP BID [facility] Multivitamins/Minerals (Certavite-Antioxidant Liquid) 15 ml GT DAILY [facility] Mupirocin (Bactroban Ointment (For Decolonization) -) 1 applic NS BID [facility] Stop: 04/27/19 21:59 Last Admin: 04/26/19 10:11 Dose: 1 applic Nystatin (Mycostatin Cream -) 1 applic TP BID [facility] Last Admin: 04/26/19 10:11 Dose: 1 applic Pantoprazole Sodium (Protonix Iv) 40 mg IVPUSH BID [facility] Last Admin: 04/26/19 10:12 Dose: 40 mg Vancomycin HCl (Vancomycin Oral Solution) 125 mg GT Q6HPO [facility] Last Admin: 04/26/19 11:55 Dose: 125 mg Zinc Sulfate (Orazinc -) 220 mg GT DAILY [facility] Last Vital Signs Temp Pulse Resp BP Pulse Ox 97.5 F L 101 H 16 106/61 100 04/26/19 14:01 04/26/19 14:01 04/26/19 14:01 04/26/19 14:01 04/26/19 08:26 awake in nad on vent via trach Lungs clear Heart RRR s1s2 Abd soft nontender CBC, BMP 04/26/19 05:20 04/26/19 05:20 CBC, BMP 04/25/19 05:50 04/25/19 05:50 Hypernatremia improving trend Prerenal azotemia low urine output/ hemodynamically mediated Plan- increase hydration
[2019-04-26] MEDS: AMINO ACIDS/PROTEIN HYDROLYS 30 ML LIQUID.PKT GT SCH (17:21)
[2019-04-26] MEDS: LACTATED RINGERS SOLUTION 1,000 ML/1,000 ML INFUS.BAG IV SCH (17:22)
[2019-04-26] MEDS: CHLORHEXIDINE GLUCONATE 4% CLEANSER FOR DECOLONIZATION TP SCH (21:25)
[2019-04-26] MEDS: ZINC OXIDE 20% TOPICAL OINTMENT 30 GM TUBE TP SCH (21:26)
[2019-04-27] MEDS: VANCOMYCIN 250 MG/5 ML ORAL SOLUTION GT SCH ×4 (01:01→17:04)
[2019-04-27] MEDS: INSULIN SLIDING SCALE (NOVOLOG) 1 VIAL SQ SCH ×4 (06:29→21:32)
[2019-04-27 07:17] LABS: HEMATOCRIT 28.6 % (32.4-45.2); HEMOGLOBIN 9.2 GM/dL (10.7-15.3); MCH 26.3 pg (25.7-33.7); MCHC 32.1 g/dl (32.0-36.0); MEAN CELL VOLUME 81.7 fl (80-96); MEAN PLT VOLUME 10.3 fl (7.5-11.1); PLATELET COUNT 135 K/MM3 (134-434); RDW 19.8 % (11.6-15.6); WHITE BLOOD COUNT 15.1 K/mm3 (4.0-10.0)
[2019-04-27] MEDS: ALBUTEROL SO4 2.5/IPRATROPIUM 0.5 INH SOL 3 ML VIAL.NEB. NEB SCH ×4 (07:30→20:29)
[2019-04-27 07:41] LABS: ALBUMIN 1.3 g/dl (3.4-5.0); BILIRUBIN,TOTAL 0.5 mg/dL (0.2-1); BLOOD UREA NITROGEN 48.4 mg/dL (7-18); CALCIUM 8.4 mg/dL (8.5-10.1); CREATININE 0.8 mg/dL (0.55-1.3); POTASSIUM 3.4 mmol/L (3.5-5.1); TOT PROT 4.7 g/dl (6.4-8.2)
[2019-04-27] MEDS ORDERED: POTASSIUM CHLORIDE TABS 10 MEQ TABLET.ER (FP) PO ONE (08:24)
[2019-04-27] MEDS ORDERED: POTASSIUM CHLORIDE ORAL LIQUID 20 MEQ/15 ML PO ONE (08:28)
[2019-04-27] MEDS ORDERED: PT OWN MED DRAWER 7, Y5N ONE ×2 (08:29→09:39)
[2019-04-27] MEDS: AMINO ACIDS/PROTEIN HYDROLYS 30 ML LIQUID.PKT GT SCH ×2 (08:52→16:52)
[2019-04-27] MEDS ORDERED: POTASSIUM CHLORIDE ORAL LIQUID 20 MEQ/15 ML GT ONE (08:57)
[2019-04-27] MEDS: MULTIVIT-MINERALS ORAL LIQUID GT SCH (09:43)
--- NOTE | 2019-04-27 09:44 | PN ---
Progress Note, Physician - Current Medication List Current Medications: Active Medications Albuterol/Ipratropium (Duoneb -) 1 amp NEB RQID [facility] Last Admin: 04/27/19 07:30 Dose: 1 amp Amino Acids (Prosource No Carb Liquid Pkt) 30 ml GT BID@0800,1730 [facility] Last Admin: 04/27/19 08:52 Dose: 30 ml Amiodarone HCl (Cordarone -) 200 mg PO BID [facility] Ascorbic Acid (Vitamin C Oral Solution -) 250 mg GT DAILY [facility] Chlorhexidine Gluconate (Hibiclens For Decolonization -) 1 applic TP HS [facility] Last Admin: 04/26/19 21:25 Dose: 1 applic Collagenase (Santyl -) 1 applic TP DAILY [facility]; Protocol Norepinephrine Bitartrate 8, (000 mcg/ Sodium Chloride) 500 mls @ 18.75 mls/hr IV TITR [facility]; Protocol Last Admin: 04/26/19 14:00 Dose: Not Given Lactated Ringer's (Lactated Ringers Solution) 1,000 ml in 1,000 mls @ 100 mls/ hr IV ASDIR [facility] Last Admin: 04/26/19 17:22 Dose: 100 mls/hr Insulin Aspart (Novolog Vial Sliding Scale -) 1 vial SQ ACHS [facility]; Protocol Last Admin: 04/27/19 06:29 Dose: 6 units Metoprolol Tartrate (Lopressor Injection -) 5 mg IVPUSH Q4H PRN PRN Reason: TACHYCARDIA Multi-Ingredient Ointment (Zinc Oxide) 1 applic TP BID [facility] Last Admin: 04/26/19 21:26 Dose: 1 applic Multivitamins/Minerals (Certavite-Antioxidant Liquid) 15 ml GT DAILY [facility] Mupirocin (Bactroban Ointment (For Decolonization) -) 1 applic NS BID [facility] Stop: 04/27/19 21:59 Last Admin: 04/26/19 21:25 Dose: 1 applic Nystatin (Mycostatin Cream -) 1 applic TP BID [facility] Last Admin: 04/26/19 21:25 Dose: 1 applic Pantoprazole Sodium (Protonix Iv) 40 mg IVPUSH BID [facility] Last Admin: 04/26/19 21:26 Dose: 40 mg Vancomycin HCl (Vancomycin Oral Solution) 125 mg GT Q6HPO [facility] Last Admin: 04/27/19 06:26 Dose: 125 mg Zinc Sulfate (Orazinc -) 220 mg GT DAILY [facility] - Objective Vital Signs: Vital Signs Temperature 97.3 F L 04/27/19 08:43 Pulse Rate 80 04/27/19 09:02 Respiratory Rate 17 04/27/19 09:02 Blood Pressure 115/51 L 04/27/19 09:02 O2 Sat by Pulse Oximetry (%) 98 04/27/19 08:50 Cardiovascular: Yes: S1, S2 Respiratory: Yes: Mechanically Ventilated Gastrointestinal: Yes: Normal Bowel Sounds, Soft Labs: CBC, BMP 04/27/19 06:00 04/27/19 06:00 INR, PTT INR 1.11 (0.83-1.09) H 04/24/19 06:00 Problem List - Problems (1) CONOR (acute kidney injury) Assessment/Plan: IMPROVING monitor Code(s): N17.9 - ACUTE KIDNEY FAILURE, UNSPECIFIED (2) Anemia Assessment/Plan: GI CONSULT Recent unrevealing upper endoscopy 2017 and 02/19. Colonosocpy with large vascular ectasia. Given valvular heart disease, suspect that there will be other ectasias in her small bowel as well. Called and left message to discuss things with the patient's daughter and see if she wants her mother undergoing repeat colonoscopy when heart rate permits. For now, monitor for overt GI bleeding No melena reported. Continue Protonix 40mg BID Supportive measures per ICU team Transfuse to keep Hgb > 8 given cardiac history Code(s): D64.9 - ANEMIA, UNSPECIFIED (3) Atrial fibrillation with RVR Assessment/Plan: Orders 04/24/19 09:16 Amiodarone in Dextrose,Iso-Osm [Nexterone 360 mg/200 ml Bag] 360 mg in 200 ml IVPB [facility]-BLOCKERS NEEDED Code(s): I48.91 - UNSPECIFIED ATRIAL FIBRILLATION (4) Sepsis Assessment/Plan: ON ABX ID FOLLOWING Microbiology 04/24/19 06:00 Blood - Central Line Blood Culture - Preliminary NO GROWTH OBTAINED AFTER 96 HOURS, INCUBATION TO CONTINUE FOR 1 DAYS. 04/24/19 06:00 Blood - Central Line Blood Culture - Preliminary NO GROWTH OBTAINED AFTER 96 HOURS, INCUBATION TO CONTINUE FOR 1 DAYS. 04/22/19 14:42 Blood - Peripheral Venous Blood Culture - Final NO GROWTH AFTER 5 DAYS INCUBATION 04/22/19 16:00 Urine - Urine Clean Catch Urine Culture - Final Escherichia Coli Vr Ec Faecalis Klebsiella Pneumoniae - Esbl 04/22/19 15:23 Ulcer Gram Stain - Final 04/22/19 15:23 Ulcer Wound Culture - Final Klebsiella Pneumoniae Mr S Aureus Escherichia Coli 04/24/19 06:00 Sputum - Endotrachea Suction/Ventilator Gram Stain - Final 04/24/19 06:00 Sputum - Endotrachea Suction/Ventilator Sputum Culture - Final Yeast Like Organism 04/22/19 14:42 Blood - Peripheral Venous Blood Culture - Final S Aureus 04/22/19 14:50 Stool Salmonella/Shigella Culture - Final NO GROWTH OF SALMONELLA OR SHIGELLA SPECIES OBTAINED 04/22/19 14:50 Stool Campylobacter Culture - Final NO GROWTH OF CAMPYLOBACTER SPECIES OBTAINED 04/22/19 14:50 Stool Yersinia Culture - Final NO GROWTH OF YERSINIA SPECIES OBTAINED 04/22/19 14:50 Stool Vibrio Culture - Final NO GROWTH OF VIBRIO SPECIES OBTAINED 04/22/19 14:50 Stool Escherichia coli 0157 Culture - Final NO GROWTH OF E COLI 0157 OBTAINED 04/22/19 14:50 Stool Clostridioides difficile Antigen - Final 04/22/19 14:50 Stool Clostridioides difficile Toxin Assay - Final Code(s): A41.9 - SEPSIS, UNSPECIFIED ORGANISM Qualifiers: Sepsis type: sepsis due to unspecified organism Sepsis acute organ dysfunction status: without acute organ dysfunction Qualified Code(s): A41.9 - Sepsis, unspecified organism
[2019-04-27] MEDS: ASCORBIC ACID 500 MG/5 ML UNIT DOSE CUP GT SCH (09:45)
[2019-04-27] MEDS: ZINC SULFATE 220 MG CAPSULE (FP) GT SCH (09:45)
[2019-04-27] MEDS: MUPIROCIN 2% TOPICAL OINTMENT FOR DECOLONIZATION NS SCH (09:46)
[2019-04-27] MEDS: AMIODARONE HCL 200 MG TABLET PO SCH ×2 (09:47→21:20)
[2019-04-27] MEDS: PANTOPRAZOLE SODIUM 40 MG VIAL IVPUSH SCH ×2 (09:48→21:21)
[2019-04-27] MEDS: COLLAGENASE CLOSTRIDIUM HIST. 30 GRAMS TUBE TP SCH (09:48)
[2019-04-27] MEDS: NYSTATIN 100,000 UNIT/GM TOPICAL CREAM 15 GM TUBE TP SCH ×2 (09:48→21:22)
[2019-04-27] MEDS: ZINC OXIDE 20% TOPICAL OINTMENT 30 GM TUBE TP SCH ×2 (09:57→21:23)
[2019-04-27] MEDS ORDERED: FUROSEMIDE 40 MG/4 ML INJECTABLE VIAL IVPUSH ONE (13:04)
[2019-04-27] MEDS ORDERED: FUROSEMIDE 40 MG/4 ML INJECTABLE VIAL ONE (13:05)
--- NOTE | 2019-04-27 13:06 | PN ---
Teaching Attending Note Name of Resident: Oneil Ashley ATTENDING PHYSICIAN STATEMENT I saw and evaluated the patient. I reviewed the resident's note and discussed the case with the resident. I agree with the resident's findings and plan as documented. SUBJECTIVE: Patient seen and examined in the ICU. Vented, poorly responsive. Off pressors. OBJECTIVE: Intake & Output 04/24/19 04/25/19 04/26/19 04/27/19 23:59 23:59 23:59 23:59 Intake Total 4129.5 3939.4 3220.5 1260 Output Total 900 1050 1500 300 Balance 3229.5 2889.4 1720.5 960 Weight 155 lb 163 lb 6.4 oz 166 lb 9.6 oz 166 lb 6 oz Last Vital Signs Temp Pulse Resp BP Pulse Ox 97.3 F L 67 17 105/57 L 100 04/27/19 12:34 04/27/19 12:34 04/27/19 12:34 04/27/19 12:34 04/27/19 12:09 Active Medications Albuterol/Ipratropium (Duoneb -) 1 amp NEB RQID [facility] Last Admin: 04/27/19 11:25 Dose: 1 amp Amino Acids (Prosource No Carb Liquid Pkt) 30 ml GT BID@0800,1730 [facility] Last Admin: 04/27/19 08:52 Dose: 30 ml Amiodarone HCl (Cordarone -) 200 mg PO BID [facility] Last Admin: 04/27/19 09:47 Dose: 200 mg Ascorbic Acid (Vitamin C Oral Solution -) 250 mg GT DAILY [facility] Last Admin: 04/27/19 09:45 Dose: 250 mg Chlorhexidine Gluconate (Hibiclens For Decolonization -) 1 applic TP HS [facility] Last Admin: 04/26/19 21:25 Dose: 1 applic Collagenase (Santyl -) 1 applic TP DAILY [facility]; Protocol Last Admin: 04/27/19 09:48 Dose: 1 applic Lactated Ringer's (Lactated Ringers Solution) 1,000 ml in 1,000 mls @ 100 mls/ hr IV ASDIR [facility] Last Admin: 04/26/19 17:22 Dose: 100 mls/hr Insulin Aspart (Novolog Vial Sliding Scale -) 1 vial SQ ACHS [facility]; Protocol Last Admin: 04/27/19 11:18 Dose: 4 units Metoprolol Tartrate (Lopressor Injection -) 5 mg IVPUSH Q4H PRN PRN Reason: TACHYCARDIA Multi-Ingredient Ointment (Zinc Oxide) 1 applic TP BID [facility] Last Admin: 04/27/19 09:57 Dose: Not Given Multivitamins/Minerals (Certavite-Antioxidant Liquid) 15 ml GT DAILY [facility] Last Admin: 04/27/19 09:43 Dose: 15 ml Mupirocin (Bactroban Ointment (For Decolonization) -) 1 applic NS BID [facility] Stop: 04/27/19 21:59 Last Admin: 04/27/19 09:46 Dose: 1 applic Nystatin (Mycostatin Cream -) 1 applic TP BID [facility] Last Admin: 04/27/19 09:48 Dose: 1 applic Pantoprazole Sodium (Protonix Iv) 40 mg IVPUSH BID [facility] Last Admin: 04/27/19 09:48 Dose: 40 mg Vancomycin HCl (Vancomycin Oral Solution) 125 mg GT Q6HPO [facility] Last Admin: 04/27/19 11:20 Dose: 125 mg Zinc Sulfate (Orazinc -) 220 mg GT DAILY [facility] Last Admin: 04/27/19 09:45 Dose: 220 mg Gen: vented, poorly responsive Heart: irregular Lung: scattered rhonchi Abd: soft, nontender Ext: + edema Back: stage IV sacral ulcer with granulation tissue Laboratory Results - last 24 hr 04/23/19 04/26/19 04/26/19 10:55 17:11 21:31 WBC RBC Hgb Hct MCV MCH MCHC RDW Plt Count MPV Sodium Potassium Chloride Carbon Dioxide Anion Gap BUN Creatinine Est GFR (CKD-EPI)AfAm Est GFR (CKD-EPI)NonAf POC Glucometer 145 156 Random Glucose Calcium Total Bilirubin AST ALT Alkaline Phosphatase Total Protein Albumin Blood Type O POSITIVE Antibody Screen Negative Crossmatch See Detail 04/27/19 04/27/19 04/27/19 06:00 06:00 06:03 WBC 15.1 H RBC 3.50 L Hgb 9.2 L Hct 28.6 L MCV 81.7 MCH 26.3 MCHC 32.1 RDW 19.8 H Plt Count 135 MPV 10.3 Sodium 149 H Potassium 3.4 L Chloride 120 H Carbon Dioxide 24 Anion Gap 6 L BUN 48.4 H Creatinine 0.8 Est GFR (CKD-EPI)AfAm 82.42 Est GFR (CKD-EPI)NonAf 71.11 POC Glucometer 206 Random Glucose 236 H Calcium 8.4 L Total Bilirubin 0.5 AST 45 H ALT 48 Alkaline Phosphatase 247 H Total Protein 4.7 L Albumin 1.3 L Blood Type Antibody Screen Crossmatch 04/27/19 11:17 WBC RBC Hgb Hct MCV MCH MCHC RDW Plt Count MPV Sodium Potassium Chloride Carbon Dioxide Anion Gap BUN Creatinine Est GFR (CKD-EPI)AfAm Est GFR (CKD-EPI)NonAf POC Glucometer 216 Random Glucose Calcium Total Bilirubin AST ALT Alkaline Phosphatase Total Protein Albumin Blood Type Antibody Screen Crossmatch ASSESSMENT AND PLAN: UTI Pneumonia Suspected Sacral Decubitus Ulcer Infection Septic Shock GI Bleed likely Upper Acute Blood Loss Anemia Atrial Fibrillation with RVR CAD COPD HTN DM h/o CVA - ABX per ID - PPI - Normal transfusion thresholds - rate control - continue volume assist control - DVT/GI prophylaxis - Vent floor Dr Stover
[2019-04-27] MEDS ORDERED: POTASSIUM CHLORIDE 20 MEQ PREMIX IVPB 100 ML IVPB SCH (13:30)
--- NOTE | 2019-04-27 13:56 | PN ---
Physical Exam: SUBJECTIVE: Patient seen and examined Patient with increased edema and pulmonary edema over the weekend s/p 20mg iv lasix. Patient started on tube feeds and tolerating well without additional melena. OBJECTIVE: Vital Signs Period Temp Pulse Resp BP Sys/[place] Pulse Ox Last 24 Hr 97.2 F-97.5 F 66-111 15-24 89-115/44-89 98-100 GENERAL: arousable but does not follow commands. Brief eye contact HEAD: Normal with no signs of trauma. EYES: PERRLA, EOMI ENT: Ears normal, nares patent, oropharynx clear without exudates. Moist mucous membranes. NECK: trach in place without evidence of infection, normal appearing borders, trach-vent LUNGS: vented, coarse breath sounds in all lung waller HEART: tachycardic, normal S1 and S2 without murmur, rub or gallop. ABDOMEN: PEG in place, soft, nontender, not distended, no guarding, no rebound, no masses. RECTAL: no melena MUSCULOSKELETAL: limited 2/2 to patient mental status; no obvious deformities LOWER EXTREMITIES: 2+ pulses, warm, well-perfused. No calf tenderness. No peripheral edema. NEUROLOGICAL: limited 2/2 mental status, does not follow commands PSYCHIATRIC: opens eyes during examination SKIN: sacral debridement wound ~11x8cm in diameter with depth to the bone, fibrinous tissue at the bases with no evidence of bleeding or purulence Laboratory Results - last 24 hr 04/23/19 04/26/19 04/26/19 10:55 17:11 21:31 WBC RBC Hgb Hct MCV MCH MCHC RDW Plt Count MPV Sodium Potassium Chloride Carbon Dioxide Anion Gap BUN Creatinine Est GFR (CKD-EPI)AfAm Est GFR (CKD-EPI)NonAf POC Glucometer 145 156 Random Glucose Calcium Total Bilirubin AST ALT Alkaline Phosphatase Total Protein Albumin Blood Type O POSITIVE Antibody Screen Negative Crossmatch See Detail 04/27/19 04/27/19 04/27/19 06:00 06:00 06:03 WBC 15.1 H RBC 3.50 L Hgb 9.2 L Hct 28.6 L MCV 81.7 MCH 26.3 MCHC 32.1 RDW 19.8 H Plt Count 135 MPV 10.3 Sodium 149 H Potassium 3.4 L Chloride 120 H Carbon Dioxide 24 Anion Gap 6 L BUN 48.4 H Creatinine 0.8 Est GFR (CKD-EPI)AfAm 82.42 Est GFR (CKD-EPI)NonAf 71.11 POC Glucometer 206 Random Glucose 236 H Calcium 8.4 L Total Bilirubin 0.5 AST 45 H ALT 48 Alkaline Phosphatase 247 H Total Protein 4.7 L Albumin 1.3 L Blood Type Antibody Screen Crossmatch 04/27/19 11:17 WBC RBC Hgb Hct MCV MCH MCHC RDW Plt Count MPV Sodium Potassium Chloride Carbon Dioxide Anion Gap BUN Creatinine Est GFR (CKD-EPI)AfAm Est GFR (CKD-EPI)NonAf POC Glucometer 216 Random Glucose Calcium Total Bilirubin AST ALT Alkaline Phosphatase Total Protein Albumin Blood Type Antibody Screen Crossmatch Active Medications Generic Name Dose Route Start Last Admin Trade Name Freq PRN Reason Stop Dose Admin Albuterol/Ipratropium 1 amp 04/22/19 20:00 04/27/19 11:25 Duoneb - NEB 1 amp RQID [facility] Administration Amino Acids 30 ml 04/26/19 17:30 04/27/19 08:52 Prosource No Carb Liquid Pkt GT 30 ml BID@0800,1730 [facility] Administration Amiodarone HCl 200 mg 04/27/19 10:00 04/27/19 09:47 Cordarone - PO 200 mg BID [facility] Administration Ascorbic Acid 250 mg 04/27/19 10:00 04/27/19 09:45 Vitamin C Oral Solution - GT 250 mg DAILY [facility] Administration Chlorhexidine Gluconate 1 applic 04/22/19 22:00 04/26/19 21:25 Hibiclens For Decolonization - TP 1 applic HS [facility] Administration Collagenase 1 applic 04/27/19 10:00 04/27/19 09:48 Santyl - TP 1 applic DAILY [facility] Administration Protocol Insulin Aspart 1 vial 04/23/19 22:00 04/27/19 11:18 Novolog Vial Sliding Scale - SQ 4 units ACHS [facility] Administration Protocol Metoprolol Tartrate 5 mg 04/27/19 13:06 Lopressor Injection - IVPUSH Q4H PRN TACHYCARDIA Multi-Ingredient Ointment 1 applic 04/26/19 22:00 04/27/19 09:57 Zinc Oxide TP Not Given BID [facility] Multivitamins/Minerals 15 ml 04/27/19 10:00 04/27/19 09:43 Certavite-Antioxidant Liquid GT 15 ml DAILY [facility] Administration Mupirocin 1 applic 04/22/19 22:00 04/27/19 09:46 Bactroban Ointment (For Decolonization) - NS 04/27/19 21:59 1 applic BID [facility] Administration Nystatin 1 applic 04/24/19 16:14 04/27/19 09:48 Mycostatin Cream - TP 1 applic BID [facility] Administration Pantoprazole Sodium 40 mg 04/24/19 10:00 04/27/19 09:48 Protonix Iv IVPUSH 40 mg BID [facility] Administration Potassium Chloride 20 meq 04/27/19 13:30 Potassium Chloride 20 Meq Premix Ivpb - IVPB 04/27/19 14:31 Q1H [facility] Vancomycin HCl 125 mg 04/24/19 18:00 04/27/19 11:20 Vancomycin Oral Solution GT 125 mg Q6HPO [facility] Administration Zinc Sulfate 220 mg 04/27/19 10:00 04/27/19 09:45 Orazinc - GT 220 mg DAILY [facility] Administration ASSESSMENT/PLAN: 79 y/o female with hx of CAD, Afib (on Eliquis), sick sinus syndrome (s/p PPM), DMII, HTN, COPD, remote history of GI bleed, colonic angiodysplasia, sigmoid diverticulosis, internal hemorrhoids, CVA (RUE/LE paralysis, non verbal), chronic respiratory failure (s/p trach-vent dependent), chronic stage 4 sacral ulcer, presenting from [facility] for T 102.3 and Afib with RVR with concern for septic shock with source of pna vs uti vs sacral ulcer. ICU course complicated with GI bleed s/p pRBC Neuro: -arouses to stimulus but does not respond or follow commands Cardio: -Afib with RVR s/p 10mg cardizem -EKG: afib with rvr, no hilton/d -ED: s/p 3L ivf -trop 0.13, 0.11 -BNP 7435 -CVC and pressors for HDS support; maintain MAP>65 -currently off pressors -amiodarone ggt changed to PO Pulm: -trach and vent dependent with sats 100% -CXR: bibasilar pleural effusions with atelectasis vs infiltrate, L>R; slightly worsening vascular changes -s/p 20mg iv lasix and 40mg today -empiric abx GI: -PEG in place -continuing feeds and tolerating well # GIB w/ blood per rectum and high BUN - 40mg pantoprazole BID - GI(DiGornio) consult: --suspect small bowel ectasias --in depth discussion with daughter regarding repeat colonoscopy and daughter states she will not pursue; will continue conservative GI bleed management HEME: # normocytic anemia --possibly 2/2 GIB - pRBC x2 - post-transfusion CBC stable Renal: -Cr stable -UA: turbid appearance with 3+leuks, bacteria and WBC -s/p IVF 3L; currently off ivf given edema -empiric abx in the ED (vanc, zosyn, meropenem, levofloxacin, daptomycin) -renal team following ID: -tmax 102.3 s/p tylenol T 102 -received empiric abx(vanc, zosyn, meropenem, levofloxacin, daptomycin) given previous sensitivities -BCx with MRSA -Cdif + -Shira DCd -PO vanc; IV vanc given dependent on levels Wound: -sacral decubitus debridement site, does not appear infected -daily wound care; frequent turns; offloading; santyl daily Dispo: DC to med/surg floors HCP is daughter, however, after ED convo with daughter, she states she relinquishes authority to her father to make decision regarding code status. After discussion with Mr Laboy, states he would like full code Visit type - Emergency Visit Emergency Visit: No - New Patient This patient is new to me today: No - Critical Care Critical Care patient: Yes Total Critical Care Time (in minutes): 40 Critical Care Statement: The care of this patient involved high complexity decision making to prevent further life threatening deterioration of the patient 's condition and/or to evaluate & treat vital organ system(s) failure or risk of failure. ATTENDING PHYSICIAN STATEMENT I saw and evaluated the patient. I reviewed the resident's note and discussed the case with the resident. I agree with the resident's findings and plan as documented. SUBJECTIVE: OBJECTIVE: ASSESSMENT AND PLAN:
--- NOTE | 2019-04-27 14:01 | ECHO ---
Name: KEITH HERNANDEZ Exam:Adult Echocardiogram Study Date: 04/27/2019 11:51 AM Age: 79 yrs Reason For Study: MRSA BACTEREMIA Height: 68 in Weight: 163 lb BSA: 1.9 m2 MMode/2D Measurements & Calculations IVSd: 1.1 cm Ao root diam: 2.7 cm LVIDd: 4.0 cm LA dimension: 4.5 cm LVIDs: 2.4 cm ACS: 1.8 cm LVPWd: 1.0 cm EDV(Teich): 70.3 ml LVOT diam: 2.0 cm ESV(Teich): 21.1 ml LAV (MOD-bp): 60.0 ml TAPSE: 1.6 cm RV S Otis: 12.6 cm/sec Doppler Measurements & Calculations MV E max otis: 184.9 cm/sec MVA(VTI): 1.1 cm2 MV A max otis: 72.9 cm/sec MV V2 max: 186.9 cm/sec MV E/A: 2.5 MV max P.0 mmHg MV dec time: 0.42 sec MV V2 mean: 103.6 cm/sec MV mean P.0 mmHg MV V2 VTI: 49.6 cm MV P1/2t max otis: 183.6 cm/sec Ao V2 max: 109.8 cm/sec MV P1/2t: 132.6 msec Ao max P.8 mmHg Ao V2 mean: 79.5 cm/sec MVA(P1/2t): 1.7 cm2 Ao mean P.9 mmHg MV dec slope: 405.3 cm/sec2 Ao V2 VTI: 26.0 cm THAD(I,D): 2.2 cm2 THAD(V,D): 2.3 cm2 LV V1 max P.8 mmHg MR max otis: 445.2 cm/sec LV V1 mean P.5 mmHg MR max P.3 mmHg LV V1 max: 83.0 cm/sec LV V1 mean: 56.4 cm/sec LV V1 VTI: 18.3 cm SV(LVOT): 56.3 ml TR max otis: 291.8 cm/sec TR max P.4 mmHg PA V2 max: 90.9 cm/sec Med Peak E' Otis: 6.0 cm/sec PA max P.3 mmHg Med E/e': 30.6 Lat Peak E' Otis: 5.3 cm/sec Lat E/e': 35.1 Tech Comments TDS. SUPINE. INTUBATED. Procedure The study was technically difficult with many images being suboptimal in quality. Study Quality: Tech nically suboptimal. Left Ventricle The left ventricle is normal in size. There is mild concentric left ventricular hypertrophy. The left ventricular ejection fraction is normal. Ejection Fraction = 55-60%. Right Ventricle The right ventricle is normal size. The right ventricular systolic function is normal. Atria Normal left and right atrial size and function. Mitral Valve The mitral valve is not well visualized. Annular ring vs calcification with mild stenosis. There is m ild mitral regurgitation. Tricuspid Valve The tricuspid valve is not well visualized. There is moderate to severe tricuspid regurgitation. Righ t ventricular systolic pressure is elevated at 40-50mmHg. Aortic Valve The aortic valve is not well visualized. no significant dysfunction on doppler. Pulmonic Valve The pulmonic valve is not well visualized. Great Vessels The aortic root is normal size. The aortic root is not well visualized. Pericardium/Pleura There is a pleural effusion present. Interpretation Summary Technically suboptimal study LV: Normal size, mild LVH, normal systolic function EF 55-60% RV: Not well seen likely normal AV: not well seen, no significant dysfunction on doppler MV: leaflets not well seen; annular rring vs calcification , mild stenosis,mild regurgiitation Moderate to severe TR, mild to modertae pulmonary hypertension Large pleural effusion with latelectatic lung tissue; possible trace to small pericardial effusion. David Barrett 04/27/2019 02:00 PM
--- NOTE | 2019-04-27 14:20 | PN ---
Progress Note, Physician History of Present Illness: Pt seen and examined at bedside. She remains in the ICU. - Current Medication List Current Medications: Active Medications Albuterol/Ipratropium (Duoneb -) 1 amp NEB RQID [facility] Last Admin: 04/27/19 11:25 Dose: 1 amp Amino Acids (Prosource No Carb Liquid Pkt) 30 ml GT BID@0800,1730 [facility] Last Admin: 04/27/19 08:52 Dose: 30 ml Amiodarone HCl (Cordarone -) 200 mg PO BID [facility] Last Admin: 04/27/19 09:47 Dose: 200 mg Ascorbic Acid (Vitamin C Oral Solution -) 250 mg GT DAILY [facility] Last Admin: 04/27/19 09:45 Dose: 250 mg Chlorhexidine Gluconate (Hibiclens For Decolonization -) 1 applic TP HS [facility] Last Admin: 04/26/19 21:25 Dose: 1 applic Collagenase (Santyl -) 1 applic TP DAILY [facility]; Protocol Last Admin: 04/27/19 09:48 Dose: 1 applic Insulin Aspart (Novolog Vial Sliding Scale -) 1 vial SQ ACHS [facility]; Protocol Last Admin: 04/27/19 11:18 Dose: 4 units Metoprolol Tartrate (Lopressor Injection -) 5 mg IVPUSH Q4H PRN PRN Reason: TACHYCARDIA Multi-Ingredient Ointment (Zinc Oxide) 1 applic TP BID [facility] Last Admin: 04/27/19 09:57 Dose: Not Given Multivitamins/Minerals (Certavite-Antioxidant Liquid) 15 ml GT DAILY [facility] Last Admin: 04/27/19 09:43 Dose: 15 ml Mupirocin (Bactroban Ointment (For Decolonization) -) 1 applic NS BID [facility] Stop: 04/27/19 21:59 Last Admin: 04/27/19 09:46 Dose: 1 applic Nystatin (Mycostatin Cream -) 1 applic TP BID [facility] Last Admin: 04/27/19 09:48 Dose: 1 applic Pantoprazole Sodium (Protonix Iv) 40 mg IVPUSH BID [facility] Last Admin: 04/27/19 09:48 Dose: 40 mg Vancomycin HCl (Vancomycin Oral Solution) 125 mg GT Q6HPO [facility] Last Admin: 04/27/19 11:20 Dose: 125 mg Zinc Sulfate (Orazinc -) 220 mg GT DAILY [facility] Last Admin: 04/27/19 09:45 Dose: 220 mg - Objective Vital Signs: Vital Signs Temperature 97.3 F L 04/27/19 12:34 Pulse Rate 66 04/27/19 14:14 Respiratory Rate 11 04/27/19 14:14 Blood Pressure 100/39 L 04/27/19 14:14 O2 Sat by Pulse Oximetry (%) 100 04/27/19 12:09 Constitutional: Yes: Calm Eyes: Yes: Conjunctiva Clear HENT: Yes: Atraumatic Neck: Yes: Other (trache) Cardiovascular: Yes: S1, S2 Gastrointestinal: Yes: Soft Genitourinary: Yes: [place] Present Musculoskeletal: Yes: Muscle Weakness Edema: Yes Edema: LUE: 2+, RUE: 2+, LLE: 2+, RLE: 2+ Neurological: Yes: Other ([place]) Labs: CBC, BMP 04/27/19 06:00 04/27/19 06:00 INR, PTT INR 1.11 (0.83-1.09) H 04/24/19 06:00 Assessment/Plan Current Medications Generic Name Dose Route Start Last Admin Trade Name Ebenq PRN Reason Stop Dose Admin Albuterol/Ipratropium 1 amp 04/22/19 20:00 04/27/19 11:25 Duoneb - NEB 1 amp RQID [facility] Administration Amino Acids 30 ml 04/26/19 17:30 04/27/19 08:52 Prosource No Carb Liquid Pkt GT 30 ml BID@0800,1730 [facility] Administration Amiodarone HCl 200 mg 04/27/19 10:00 04/27/19 09:47 Cordarone - PO 200 mg BID [facility] Administration Ascorbic Acid 250 mg 04/27/19 10:00 04/27/19 09:45 Vitamin C Oral Solution - GT 250 mg DAILY [facility] Administration Chlorhexidine Gluconate 1 applic 04/22/19 22:00 04/26/19 21:25 Hibiclens For Decolonization - TP 1 applic HS [facility] Administration Collagenase 1 applic 04/27/19 10:00 04/27/19 09:48 Santyl - TP 1 applic DAILY [facility] Administration Protocol Insulin Aspart 1 vial 04/23/19 22:00 04/27/19 11:18 Novolog Vial Sliding Scale - SQ 4 units ACHS [facility] Administration Protocol Metoprolol Tartrate 5 mg 04/27/19 13:06 Lopressor Injection - IVPUSH Q4H PRN TACHYCARDIA Multi-Ingredient Ointment 1 applic 04/26/19 22:00 04/27/19 09:57 Zinc Oxide TP Not Given BID [facility] Multivitamins/Minerals 15 ml 04/27/19 10:00 04/27/19 09:43 Certavite-Antioxidant Liquid GT 15 ml DAILY [facility] Administration Mupirocin 1 applic 04/22/19 22:00 04/27/19 09:46 Bactroban Ointment (For Decolonization) - NS 04/27/19 21:59 1 applic BID [facility] Administration Nystatin 1 applic 04/24/19 16:14 04/27/19 09:48 Mycostatin Cream - TP 1 applic BID [facility] Administration Pantoprazole Sodium 40 mg 04/24/19 10:00 04/27/19 09:48 Protonix Iv IVPUSH 40 mg BID [facility] Administration Vancomycin HCl 125 mg 04/24/19 18:00 04/27/19 11:20 Vancomycin Oral Solution GT 125 mg Q6HPO [facility] Administration Zinc Sulfate 220 mg 04/27/19 10:00 04/27/19 09:45 Orazinc - GT 220 mg DAILY [facility] Administration Impression 1. hypernatremia 2. hypokalemia 3. resp failure 4. Sepsis 5. anemia 6. edema/volume overload Plan - d/c fluids - give lasix - replace potassium - increase free water with feeds - discussed with ICU team
--- NOTE | 2019-04-27 15:40 | PN ---
Progress Note, Physician History of Present Illness: AWAKE ON VENTILATOR EYES OPEN AFEBRILE OFF PRESSORS BC MRSA VANCO LEVEL NOTED C DIFF+ URINE, WOUND C/S MIXED - Current Medication List Current Medications: Active Medications Albuterol/Ipratropium (Duoneb -) 1 amp NEB RQID [facility] Last Admin: 04/27/19 11:25 Dose: 1 amp Amino Acids (Prosource No Carb Liquid Pkt) 30 ml GT BID@0800,1730 [facility] Last Admin: 04/27/19 08:52 Dose: 30 ml Amiodarone HCl (Cordarone -) 200 mg PO BID [facility] Last Admin: 04/27/19 09:47 Dose: 200 mg Ascorbic Acid (Vitamin C Oral Solution -) 250 mg GT DAILY [facility] Last Admin: 04/27/19 09:45 Dose: 250 mg Chlorhexidine Gluconate (Hibiclens For Decolonization -) 1 applic TP HS [facility] Last Admin: 04/26/19 21:25 Dose: 1 applic Collagenase (Santyl -) 1 applic TP DAILY [facility]; Protocol Last Admin: 04/27/19 09:48 Dose: 1 applic Insulin Aspart (Novolog Vial Sliding Scale -) 1 vial SQ ACHS [facility]; Protocol Last Admin: 04/27/19 11:18 Dose: 4 units Metoprolol Tartrate (Lopressor Injection -) 5 mg IVPUSH Q4H PRN PRN Reason: TACHYCARDIA Multi-Ingredient Ointment (Zinc Oxide) 1 applic TP BID [facility] Last Admin: 04/27/19 09:57 Dose: Not Given Multivitamins/Minerals (Certavite-Antioxidant Liquid) 15 ml GT DAILY [facility] Last Admin: 04/27/19 09:43 Dose: 15 ml Mupirocin (Bactroban Ointment (For Decolonization) -) 1 applic NS BID [facility] Stop: 04/27/19 21:59 Last Admin: 04/27/19 09:46 Dose: 1 applic Nystatin (Mycostatin Cream -) 1 applic TP BID [facility] Last Admin: 04/27/19 09:48 Dose: 1 applic Pantoprazole Sodium (Protonix Iv) 40 mg IVPUSH BID [facility] Last Admin: 04/27/19 09:48 Dose: 40 mg Vancomycin HCl (Vancomycin Oral Solution) 125 mg GT Q6HPO [facility] Last Admin: 04/27/19 11:20 Dose: 125 mg Zinc Sulfate (Orazinc -) 220 mg GT DAILY [facility] Last Admin: 04/27/19 09:45 Dose: 220 mg - Objective Vital Signs: Vital Signs Temperature 97.3 F L 04/27/19 12:34 Pulse Rate 66 04/27/19 14:14 Respiratory Rate 11 04/27/19 14:14 Blood Pressure 100/39 L 04/27/19 14:14 O2 Sat by Pulse Oximetry (%) 100 04/27/19 12:09 Constitutional: Yes: No Distress Eyes: Yes: Conjunctiva Clear Cardiovascular: Yes: Regular Rate and Rhythm, S1, S2 Respiratory: Yes: Mechanically Ventilated Gastrointestinal: Yes: Normal Bowel Sounds, Soft. No: Tenderness Edema: Yes Labs: CBC, BMP 04/27/19 06:00 04/27/19 06:00 INR, PTT INR 1.11 (0.83-1.09) H 04/24/19 06:00 Assessment/Plan SEPSIS/ SEPTIC SHOCK IMPROVED MRSA BACTEREMIA + C DIFF CHRONIC RESP FAILURE ANEMIA AZOTEMIA HX MDRO AWAIT BC CONTINUE VANCO PER LEVELS VANCO VIA GT PRESSORS CONTACT PRECAUTIONS
[2019-04-27] MEDS: CHLORHEXIDINE GLUCONATE 4% CLEANSER FOR DECOLONIZATION TP SCH (21:21)
[2019-04-28 00:46] LABS: MAGNESIUM 2.3 mg/dL (1.8-2.4)
[2019-04-28] MEDS: VANCOMYCIN 250 MG/5 ML ORAL SOLUTION GT SCH ×4 (01:12→17:57)
[2019-04-28] MEDS: INSULIN SLIDING SCALE (NOVOLOG) 1 VIAL SQ SCH ×4 (05:59→21:17)
[2019-04-28 06:38] LABS: BASO % 0.2 % (0-2.0); EOS % 3.8 % (0-4.5); HEMATOCRIT 27.1 % (32.4-45.2); HEMOGLOBIN 8.7 GM/dL (10.7-15.3); LYMPH % 7.6 % (8-40); MCH 26.1 pg (25.7-33.7); MEAN CELL VOLUME 81.7 fl (80-96); MEAN PLT VOLUME 9.9 fl (7.5-11.1); MONO % 3.9 % (3.8-10.2); NEUT % 84.5 % (42.8-82.8); PLATELET COUNT 116 K/MM3 (134-434); RBC 3.32 M/mm3 (3.60-5.2); RDW 19.9 % (11.6-15.6); WHITE BLOOD COUNT 14.1 K/mm3 (4.0-10.0)
[2019-04-28 06:51] LABS: ALBUMIN 1.2 g/dl (3.4-5.0); BILIRUBIN,TOTAL 0.3 mg/dL (0.2-1); CREATININE 0.8 mg/dL (0.55-1.3); MAGNESIUM 2.3 mg/dL (1.8-2.4); PHOSPHOROUS 2.8 mg/dL (2.5-4.9); POTASSIUM 3.4 mmol/L (3.5-5.1); TOT PROT 4.4 g/dl (6.4-8.2)
[2019-04-28] MEDS: ALBUTEROL SO4 2.5/IPRATROPIUM 0.5 INH SOL 3 ML VIAL.NEB. NEB SCH ×4 (08:00→21:15)
--- NOTE | 2019-04-28 08:09 | CON.CARD ---
Cardiology Consult (text) - Consultation Consultation Note: Chief Complaint: Events noted, notes reviewed, on a ventilator via tracheostomy in no distress, atrial pacing noted History of Present Illness: Seen and examined in the ICU. Full consult dictated Current Medications: Current Medications Albuterol/Ipratropium (Duoneb -) 1 amp NEB RQID [facility] Last Admin: 04/27/19 20:29 Dose: 1 amp Amino Acids (Prosource No Carb Liquid Pkt) 30 ml GT BID@0800,1730 [facility] Last Admin: 04/27/19 16:52 Dose: 30 ml Amiodarone HCl (Cordarone -) 200 mg PO BID [facility] Last Admin: 04/27/19 21:20 Dose: 200 mg Ascorbic Acid (Vitamin C Oral Solution -) 250 mg GT DAILY [facility] Last Admin: 04/27/19 09:45 Dose: 250 mg Chlorhexidine Gluconate (Hibiclens For Decolonization -) 1 applic TP HS [facility] Last Admin: 04/27/19 21:21 Dose: 1 applic Collagenase (Santyl -) 1 applic TP DAILY [facility]; Protocol Last Admin: 04/27/19 09:48 Dose: 1 applic Potassium Phosphate 15 mm/ (Dextrose) 255 mls @ 62.5 mls/hr IVPB ONCE ONE Stop: 04/28/19 13:34 Insulin Aspart (Novolog Vial Sliding Scale -) 1 vial SQ ACHS [facility]; Protocol Last Admin: 04/28/19 05:59 Dose: 4 units Metoprolol Tartrate (Lopressor Injection -) 5 mg IVPUSH Q4H PRN PRN Reason: TACHYCARDIA Multi-Ingredient Ointment (Zinc Oxide) 1 applic TP BID [facility] Last Admin: 04/27/19 21:23 Dose: 1 applic Multivitamins/Minerals (Certavite-Antioxidant Liquid) 15 ml GT DAILY [facility] Last Admin: 04/27/19 09:43 Dose: 15 ml Nystatin (Mycostatin Cream -) 1 applic TP BID [facility] Last Admin: 04/27/19 21:22 Dose: 1 applic Pantoprazole Sodium (Protonix Iv) 40 mg IVPUSH BID [facility] Last Admin: 04/27/19 21:21 Dose: 40 mg Vancomycin HCl (Vancomycin Oral Solution) 125 mg GT Q6HPO [facility] Last Admin: 04/28/19 05:51 Dose: 125 mg Zinc Sulfate (Orazinc -) 220 mg GT DAILY [facility] Last Admin: 04/27/19 09:45 Dose: 220 mg Review of Systems Unable to obtain - Objective Vital Signs: Last Vital Signs Temp Pulse Resp BP Pulse Ox 97.2 F L 96 H 14 116/49 L 100 04/27/19 21:00 04/28/19 06:00 04/28/19 06:00 04/28/19 06:00 04/27/19 21:00 Intake & Output 04/25/19 04/26/19 04/27/19 04/28/19 23:59 23:59 23:59 23:59 Intake Total 3939.4 3220.5 2560 550 Output Total 1050 1500 1400 250 Balance 2889.4 1720.5 1160 300 Weight 163 lb 6.4 oz 166 lb 9.6 oz 166 lb 6 oz 178 lb 12.718 oz Neck: Supple negative JVD no bruit Cardiovascular: S1 S2 Regular Rate Rhythm Respiratory: Diminished Breath Sounds Bilaterally Gastrointestinal: Soft Benign Normal Bowel Sounds Ext: Negative Edema Bilaterally Labs: Troponin, BNP 04/28/19 05:40 Troponin I 0.69 H* CBC, BMP 04/28/19 05:40 04/28/19 05:40 Hepatic Panel Total Bilirubin 0.3 mg/dL (0.2-1) 04/28/19 05:40 AST 29 U/L (15-37) 04/28/19 05:40 ALT 37 U/L (13-61) 04/28/19 05:40 Alkaline Phosphatase 234 U/L (45-117) H 04/28/19 05:40 Albumin 1.2 g/dl (3.4-5.0) L 04/28/19 05:40 Assessment/Plan: ASSESSMENT: 1. Sepsis syndrome/septic shock, clinically resolving 2. CAD with evidence of demand ischemic injury angina pectoris 3. Diastolic LV dysfunction with clinical class 0 NYHA classification LV failure 4. Paroxysmal atrial fibrillation with RVR currently in sinus rhythm- atrial pacing [id number] score of 9 off of DOAC's/Eliquis 5. Sick sinus syndrome post PPM 6. Post mitral valve repair 7. History of CVA 8. Chronic respiratory failure on mechanical ventilation post tracheostomy 9. HTN 10. Hypercholesterolemia 11. COPD 12. Hypernatremia, persistent 13. Hypokalemia 14. Pre-renal azotemia 15. Anemia history of gastrointestinal bleed 16. Sacral decubitus ulcer PLAN: 1. Antibiotics as per the primary team 2. Continue Lopressor but switch to PO and up-titrate dosage as needed hemodynamics permitting 3. Continue Amiodarone but reduce dosage 200 mg daily as recommended during her last admission 4. Add ACEI or ARBS unless contraindicated, hemodynamics permitting 5. Resumption of A/C with Eliquis unless it is absolutely contraindicated with close monitoring of Hg, transfuse to maintain Hg equal or > 8.0 6. No intervention indicated for the above noted elevated Troponin I level consistent with demand ischemia of clinical significance 7. Correction of Hypernatremia/pre-renal azotemia, free water supplementation 8. Correction of Hypokalemia Karla Hernandes MD
[2019-04-28] MEDS ORDERED: LACTATED RINGERS SOLUTION 1000 ML INFUS.BAG IV ONE (08:46)
[2019-04-28] MEDS ORDERED: DEXTROSE 5%-0.45% SALINE 1,000 ML IV SCH (09:00)
[2019-04-28] MEDS ORDERED: PT OWN MED DRAWER 7, Y5N ONE ×3 (09:13→21:05)
[2019-04-28] MEDS: AMINO ACIDS/PROTEIN HYDROLYS 30 ML LIQUID.PKT GT SCH ×2 (09:22→17:43)
[2019-04-28] MEDS: MULTIVIT-MINERALS ORAL LIQUID GT SCH (09:23)
[2019-04-28] MEDS: AMIODARONE HCL 200 MG TABLET PO SCH ×2 (09:23→22:00)
[2019-04-28] MEDS: ZINC SULFATE 220 MG CAPSULE (FP) GT SCH (09:24)
[2019-04-28] MEDS: PANTOPRAZOLE SODIUM 40 MG VIAL IVPUSH SCH ×2 (09:24→21:19)
[2019-04-28] MEDS: ASCORBIC ACID 500 MG/5 ML UNIT DOSE CUP GT SCH (09:24)
[2019-04-28] MEDS ORDERED: POTASSIUM PHOSPHATE 15 MM in DEXTROSE 5%-WATER - 250 ML IVPB ONE (09:30)
[2019-04-28] MEDS ORDERED: NOREPINEPHRINE BITARTRATE 4 MG/4 ML ML IV ONE (09:41)
--- NOTE | 2019-04-28 09:49 | CONS ---
DATE OF CONSULTATION: 04/28/2019 CHIEF COMPLAINT: Evaluation of elevated troponin I level. History was obtained from the chart. HISTORY OF PRESENT ILLNESS: A 79-year-old female known to our service with known history of coronary artery disease, history of demand ischemic injury, angina pectoris, diastolic left ventricular dysfunction with clinical class 0 [place] [employer] classification left ventricular failure, paroxysmal atrial fibrillation (on anticoagulation therapy), sick sinus syndrome post permanent pacemaker implantation, mitral valve disease post mitral valve repair, history of cerebrovascular disease, chronic respiratory failure (on a ventilator), hypertension, hypercholesterolemia, chronic obstructive pulmonary disease, sacral decubitus, who was admitted to [facility] intensive care unit with sepsis syndrome. For a unknown reason, blood tests this morning included a troponin I level which was noted to be elevated, in view of which Cardiology evaluation was requested. The patient is on a ventilator via tracheostomy. She does not appear to be in any distress. Atrial pacing was noted. History is not obtainable from the patient. PAST MEDICAL HISTORY: Coronary artery disease, angina pectoris, evidence of demand ischemic injury, diastolic left ventricular dysfunction with clinical class 0 [place] [employer] classification left ventricular failure, paroxysmal atrial fibrillation, WZELF-[id number]-3 score of 9, on anticoagulation therapy with Eliquis, sick sinus syndrome, post permanent pacemaker implantation, mitral valve disease, post mitral valve repair, history of cerebrovascular disease, chronic respiratory failure, on a ventilator via tracheostomy, hypertension, hypercholesterolemia, chronic obstructive pulmonary disease, sacral decubitus. SOCIAL HISTORY: Resides at an extended care facility. FAMILY HISTORY: Not known. ALLERGIES: No known medical allergies. MEDICATIONS: Medical therapy currently includes DuoNeb nebulizer, amiodarone 200 mg twice a day, vitamin C 250 mg once a day, Santyl Collagenase to local site, potassium phosphate supplementation, insulin coverage, Lopressor 5 mg IV push every 4 hours as needed, multivitamin once daily, Protonix 40 mg IV push once daily, vancomycin 125 mg orally every 6 hours for management of Clostridium difficile. REVIEW OF SYSTEMS: Not obtainable. PHYSICAL EXAMINATION: Vital signs: Blood pressure is 116/49 mmHg, pulse rate is 96 beats per minute. Head and Neck: Pupils are equally reactive to light and accommodation. External ocular muscles cannot be evaluated. Anicteric sclerae. Negative JVD. No bruit appreciated. Chest: Diminished breath sounds bilaterally with scattered rhonchi. Cardiovascular: S1 and S2 regular. Abdomen: Soft, benign. Normoactive bowel sounds. Extremities: Extensive edema bilateral of both upper and lower extremities. LABORATORY DATA: Troponin 0.69. CBC revealed white cell count 14.1, hemoglobin 8.7, platelet count 116. Basic metabolic profile revealed sodium 150, potassium 3.4, BUN 50, creatinine 0.8, glucose 236. ASSESSMENT: 1. Sepsis syndrome, septic shock, clinically resolving. 2. Coronary artery disease with evidence of demand ischemic injury, angina pectoris. 3. Diastolic left ventricular dysfunction with clinical class 0 [place] [employer] classification left ventricular failure. 4. Paroxysmal atrial fibrillation with rapid ventricular response, currently in sinus rhythm, atrial pacing, CHADS-VASc score of 9, currently off of anticoagulation therapy. 5. Sick sinus syndrome, post permanent pacemaker implantation. 6. Post mitral valve repair. 7. History of cerebrovascular disease. 8. Chronic respiratory failure on mechanical ventilation, post tracheostomy. 9. Hypertension. 10. Hypercholesterolemia. 11. History of chronic obstructive pulmonary disease. 12. Hypernatremia, persistent. 13. Hypokalemia. 14. Anemia with history of gastrointestinal bleed. 15. Sacral decubitus ulcer. 16. Clostridium difficile infection. RECOMMENDATIONS: 1. Antibiotics as per the primary team. 2. Continue Lopressor but switch to oral administration and dose titration as needed, hemodynamics permitting. 3. Continuation of amiodarone therapy but reduce dosage to 200 mg once a day as recommended during her last admission. 4. Addition of angiotensin receptor blockers or MATEO inhibitors unless contraindicated, hemodynamics permitting. 5. Resumption of anticoagulation with Eliquis unless it is absolutely contraindicated, with close monitoring of hemoglobin. Transfuse to maintain hemoglobin equal or greater than 8.0. 6. No intervention indicated for the above-noted elevated troponin I level, consistent with demand ischemia, of no clinical significance. 7. Correction of hyponatremia with free water resumption. 8. Correction of hypokalemia. Thank you for the kind referral. ETTA MCKEON M.D. [id number]
--- NOTE | 2019-04-28 09:51 | PN ---
Progress Note, Physician - Current Medication List Current Medications: Active Medications Albuterol/Ipratropium (Duoneb -) 1 amp NEB RQID [facility] Last Admin: 04/27/19 20:29 Dose: 1 amp Amino Acids (Prosource No Carb Liquid Pkt) 30 ml GT BID@0800,1730 [facility] Last Admin: 04/28/19 09:22 Dose: 30 ml Amiodarone HCl (Cordarone -) 200 mg PO BID [facility] Last Admin: 04/28/19 09:23 Dose: 200 mg Ascorbic Acid (Vitamin C Oral Solution -) 250 mg GT DAILY [facility] Last Admin: 04/28/19 09:24 Dose: 250 mg Chlorhexidine Gluconate (Hibiclens For Decolonization -) 1 applic TP HS [facility] Last Admin: 04/27/19 21:21 Dose: 1 applic Collagenase (Santyl -) 1 applic TP DAILY [facility]; Protocol Last Admin: 04/27/19 09:48 Dose: 1 applic Potassium Phosphate 15 mm/ (Dextrose) 255 mls @ 62.5 mls/hr IVPB ONCE ONE Stop: 04/28/19 13:34 Dextrose/Sodium Chloride (D5-1/2ns -) 1,000 mls @ 75 mls/hr IV ASDIR [facility] Insulin Aspart (Novolog Vial Sliding Scale -) 1 vial SQ ACHS [facility]; Protocol Last Admin: 04/28/19 05:59 Dose: 4 units Metoprolol Tartrate (Lopressor Injection -) 5 mg IVPUSH Q4H PRN PRN Reason: TACHYCARDIA Multi-Ingredient Ointment (Zinc Oxide) 1 applic TP BID [facility] Last Admin: 04/27/19 21:23 Dose: 1 applic Multivitamins/Minerals (Certavite-Antioxidant Liquid) 15 ml GT DAILY [facility] Last Admin: 04/28/19 09:23 Dose: 15 ml Nystatin (Mycostatin Cream -) 1 applic TP BID [facility] Last Admin: 04/27/19 21:22 Dose: 1 applic Pantoprazole Sodium (Protonix Iv) 40 mg IVPUSH BID [facility] Last Admin: 04/28/19 09:24 Dose: 40 mg Vancomycin HCl (Vancomycin Oral Solution) 125 mg GT Q6HPO [facility] Last Admin: 04/28/19 05:51 Dose: 125 mg Zinc Sulfate (Orazinc -) 220 mg GT DAILY [facility] Last Admin: 04/28/19 09:24 Dose: 220 mg - Objective Vital Signs: Vital Signs Temperature 97.2 F L 04/27/19 21:00 Pulse Rate 96 H 04/28/19 06:00 Respiratory Rate 14 04/28/19 06:00 Blood Pressure 116/49 L 04/28/19 06:00 O2 Sat by Pulse Oximetry (%) 100 04/27/19 21:00 Cardiovascular: Yes: S1, S2 Respiratory: Yes: Mechanically Ventilated Gastrointestinal: Yes: Normal Bowel Sounds, Soft Labs: CBC, BMP 04/28/19 05:40 04/28/19 05:40 INR, PTT INR 1.11 (0.83-1.09) H 04/24/19 06:00 Problem List - Problems (1) CONOR (acute kidney injury) Assessment/Plan: IMPROVING Laboratory Tests 04/25/19 04/28/19 05:50 05:40 Sodium 150 H 150 H BUN 71.2 H 50.0 H Creatinine 1.1 0.8 Code(s): N17.9 - ACUTE KIDNEY FAILURE, UNSPECIFIED (2) Anemia Assessment/Plan: GI CONSULT Recent unrevealing upper endoscopy 2017 and 02/19. Colonosocpy with large vascular ectasia. Given valvular heart disease, suspect that there will be other ectasias in her small bowel as well. Called and left message to discuss things with the patient's daughter and see if she wants her mother undergoing repeat colonoscopy when heart rate permits. For now, monitor for overt GI bleeding No melena reported. Continue Protonix 40mg BID Supportive measures per ICU team Transfuse to keep Hgb > 8 given cardiac history Laboratory Tests 04/25/19 04/28/19 05:50 05:40 Hgb 9.3 L 8.7 L Hct 29.1 L 27.1 L Code(s): D64.9 - ANEMIA, UNSPECIFIED (3) Atrial fibrillation with RVR Assessment/Plan: Orders 04/24/19 09:16 Amiodarone in Dextrose,Iso-Osm [Nexterone 360 mg/200 ml Bag] 360 mg in 200 ml IVPB ASDIR CARDIO B-BLOCKERS NEEDED Code(s): I48.91 - UNSPECIFIED ATRIAL FIBRILLATION (4) Sepsis Assessment/Plan: ON ABX ID FOLLOWING AWAIT BC CONTINUE VANCO PER LEVELS VANCO VIA GT PRESSORS CONTACT PRECAUTIONS Microbiology 04/24/19 06:00 Blood - Central Line Blood Culture - Preliminary NO GROWTH OBTAINED AFTER 96 HOURS, INCUBATION TO CONTINUE FOR 1 DAYS. 04/24/19 06:00 Blood - Central Line Blood Culture - Preliminary NO GROWTH OBTAINED AFTER 96 HOURS, INCUBATION TO CONTINUE FOR 1 DAYS. 04/22/19 14:42 Blood - Peripheral Venous Blood Culture - Final NO GROWTH AFTER 5 DAYS INCUBATION 04/22/19 16:00 Urine - Urine Clean Catch Urine Culture - Final Escherichia Coli Vr Ec Faecalis Klebsiella Pneumoniae - Esbl 04/22/19 15:23 Ulcer Gram Stain - Final 04/22/19 15:23 Ulcer Wound Culture - Final Klebsiella Pneumoniae Mr S Aureus Escherichia Coli 04/24/19 06:00 Sputum - Endotrachea Suction/Ventilator Gram Stain - Final 04/24/19 06:00 Sputum - Endotrachea Suction/Ventilator Sputum Culture - Final Yeast Like Organism 04/22/19 14:42 Blood - Peripheral Venous Blood Culture - Final Mr S Aureus 04/22/19 14:50 Stool Salmonella/Shigella Culture - Final NO GROWTH OF SALMONELLA OR SHIGELLA SPECIES OBTAINED 04/22/19 14:50 Stool Campylobacter Culture - Final NO GROWTH OF CAMPYLOBACTER SPECIES OBTAINED 04/22/19 14:50 Stool Yersinia Culture - Final NO GROWTH OF YERSINIA SPECIES OBTAINED 04/22/19 14:50 Stool Vibrio Culture - Final NO GROWTH OF VIBRIO SPECIES OBTAINED 04/22/19 14:50 Stool Escherichia coli 0157 Culture - Final NO GROWTH OF E COLI 0157 OBTAINED 04/22/19 14:50 Stool Clostridioides difficile Antigen - Final 04/22/19 14:50 Stool Clostridioides difficile Toxin Assay - Final Code(s): A41.9 - SEPSIS, UNSPECIFIED ORGANISM Qualifiers: Sepsis type: sepsis due to unspecified organism Sepsis acute organ dysfunction status: without acute organ dysfunction Qualified Code(s): A41.9 - Sepsis, unspecified organism
[2019-04-28] MEDS: NYSTATIN 100,000 UNIT/GM TOPICAL CREAM 15 GM TUBE TP SCH ×2 (10:30→21:21)
[2019-04-28] MEDS ORDERED: NOREPINEPHRINE BITARTRATE 8,000 MCG in DEXTROSE 5%-WATER - 492 ML IV SCH (12:15)
--- NOTE | 2019-04-28 12:24 | PN ---
Physical Exam: SUBJECTIVE: Patient seen and examined s/p 40mg lasix yesterday. MAPs 40s-50s overnight. Started 500c LR bolus and started on mIVF; MAP remained in 40s-50s -> started on levo. Afebrile, tolerating TFs. OBJECTIVE: Vital Signs Period Temp Pulse Resp BP Sys/[place] Pulse Ox Last 24 Hr 97.2 F-98.2 F 64-116 11-28 91-116/33-75 99-100 GENERAL: arousable but does not follow commands. Brief eye contact HEAD: Normal with no signs of trauma. EYES: PERRLA, EOMI ENT: Ears normal, nares patent, oropharynx clear without exudates. Moist mucous membranes. NECK: trach in place without evidence of infection, normal appearing borders, trach-vent LUNGS: vented, coarse breath sounds in all lung waller HEART: tachycardic, normal S1 and S2 without murmur, rub or gallop. ABDOMEN: PEG in place, soft, nontender, not distended, no guarding, no rebound, no masses. RECTAL: no melena MUSCULOSKELETAL: limited 2/2 to patient mental status; no obvious deformities LOWER EXTREMITIES: 2+ pulses, warm, well-perfused. No calf tenderness. No peripheral edema. NEUROLOGICAL: limited 2/2 mental status, does not follow commands PSYCHIATRIC: opens eyes during examination SKIN: sacral debridement wound ~11x8cm in diameter with depth to the bone, fibrinous tissue at the bases with no evidence of bleeding or purulence Laboratory Results - last 24 hr 04/27/19 04/27/19 04/27/19 06:00 16:38 21:28 WBC RBC Hgb Hct MCV MCH MCHC RDW Plt Count MPV Absolute Neuts (auto) Neutrophils % Lymphocytes % Monocytes % Eosinophils % Basophils % Nucleated RBC % Sodium 149 H Potassium 3.4 L Chloride 120 H Carbon Dioxide 24 Anion Gap 6 L BUN 48.4 H Creatinine 0.8 Est GFR (CKD-EPI)AfAm 82.42 Est GFR (CKD-EPI)NonAf 71.11 POC Glucometer 227 194 Random Glucose 236 H Calcium 8.4 L Phosphorus Magnesium 2.3 Total Bilirubin 0.5 AST 45 H ALT 48 Alkaline Phosphatase 247 H Troponin I Total Protein 4.7 L Albumin 1.3 L Random Vancomycin 02/25/20 02/25/20 02/25/20 05:40 05:40 05:40 WBC 14.1 H RBC 3.32 L Hgb 8.7 L Hct 27.1 L MCV 81.7 MCH 26.1 MCHC 32.0 RDW 19.9 H Plt Count 116 L MPV 9.9 Absolute Neuts (auto) 11.9 H Neutrophils % 84.5 H Lymphocytes % 7.6 L D Monocytes % 3.9 Eosinophils % 3.8 Basophils % 0.2 Nucleated RBC % 0 Sodium 150 H Potassium 3.4 L Chloride 121 H Carbon Dioxide 24 Anion Gap 5 L BUN 50.0 H Creatinine 0.8 Est GFR (CKD-EPI)AfAm 82.42 Est GFR (CKD-EPI)NonAf 71.11 POC Glucometer Random Glucose 236 H Calcium 8.0 L Phosphorus 2.8 Magnesium 2.3 Total Bilirubin 0.3 AST 29 ALT 37 Alkaline Phosphatase 234 H Troponin I 0.69 H* Total Protein 4.4 L Albumin 1.2 L Random Vancomycin 22.4 04/28/19 04/28/19 05:48 12:07 WBC RBC Hgb Hct MCV MCH MCHC RDW Plt Count MPV Absolute Neuts (auto) Neutrophils % Lymphocytes % Monocytes % Eosinophils % Basophils % Nucleated RBC % Sodium Potassium Chloride Carbon Dioxide Anion Gap BUN Creatinine Est GFR (CKD-EPI)AfAm Est GFR (CKD-EPI)NonAf POC Glucometer 217 294 Random Glucose Calcium Phosphorus Magnesium Total Bilirubin AST ALT Alkaline Phosphatase Troponin I Total Protein Albumin Random Vancomycin Active Medications Generic Name Dose Route Start Last Admin Trade Name Freq PRN Reason Stop Dose Admin Albuterol/Ipratropium 1 amp 04/22/19 20:00 04/28/19 12:18 Duoneb - NEB 1 amp RQID [facility] Administration Amino Acids 30 ml 04/26/19 17:30 04/28/19 09:22 Prosource No Carb Liquid Pkt GT 30 ml BID@0800,1730 [facility] Administration Amiodarone HCl 200 mg 04/27/19 10:00 04/28/19 09:23 Cordarone - PO 200 mg BID [facility] Administration Apixaban 5 mg 04/28/19 22:00 Eliquis - PEG BID [facility] Ascorbic Acid 250 mg 04/27/19 10:00 04/28/19 09:24 Vitamin C Oral Solution - GT 250 mg DAILY [facility] Administration Chlorhexidine Gluconate 1 applic 04/22/19 22:00 04/27/19 21:21 Hibiclens For Decolonization - TP 1 applic HS [facility] Administration Collagenase 1 applic 04/27/19 10:00 04/27/19 09:48 Santyl - TP 1 applic DAILY [facility] Administration Protocol Potassium Phosphate 15 mm/ 255 mls @ 62.5 mls/hr 04/28/19 09:30 04/28/19 11: 11 Dextrose IVPB 04/28/19 13:34 62.5 mls/hr ONCE ONE Administration Norepinephrine Bitartrate 8, 500 mls @ 18.75 mls/hr 04/28/19 12:15 000 mcg/ Dextrose IV TITR [facility] Protocol 5 MCG/MIN Insulin Aspart 1 vial 04/23/19 22:00 04/28/19 12:08 Novolog Vial Sliding Scale - SQ 6 units ACHS [facility] Administration Protocol Metoprolol Tartrate 5 mg 04/27/19 13:06 Lopressor Injection - IVPUSH Q4H PRN TACHYCARDIA Multi-Ingredient Ointment 1 applic 04/26/19 22:00 04/27/19 21:23 Zinc Oxide TP 1 applic BID [facility] Administration Multivitamins/Minerals 15 ml 04/27/19 10:00 04/28/19 09:23 Certavite-Antioxidant Liquid GT 15 ml DAILY [facility] Administration Nystatin 1 applic 04/24/19 16:14 04/27/19 21:22 Mycostatin Cream - TP 1 applic BID [facility] Administration Pantoprazole Sodium 40 mg 04/24/19 10:00 04/28/19 09:24 Protonix Iv IVPUSH 40 mg BID [facility] Administration Vancomycin HCl 125 mg 04/24/19 18:00 04/28/19 12:08 Vancomycin Oral Solution GT 125 mg Q6HPO [facility] Administration Zinc Sulfate 220 mg 04/27/19 10:00 04/28/19 09:24 Orazinc - GT 220 mg DAILY [facility] Administration ASSESSMENT/PLAN: 79 y/o female with hx of CAD, Afib (on Eliquis), sick sinus syndrome (s/p PPM), DMII, HTN, COPD, remote history of GI bleed, colonic angiodysplasia, sigmoid diverticulosis, internal hemorrhoids, CVA (RUE/LE paralysis, non verbal), chronic respiratory failure (s/p trach-vent dependent), chronic stage 4 sacral ulcer, presenting [facility] for T 102.3 and Afib with RVR with concern for septic shock with source of pna vs uti vs sacral ulcer. ICU course complicated with GI bleed s/p pRBC and now stable Neuro: -arouses to stimulus but does not respond or follow commands Cardio: -Afib with RVR s/p 10mg cardizem -EKG: afib with rvr, no hilton/d -ED: s/p 3L ivf -trop 0.13, 0.11 -repeat trop 0.69; cards consulted; likely demand ischemia in setting of septic shock -recommending metop PO instead of iv prn; 200mg amio, eliquis 5mg bid -BNP 7435 -CVC and pressors for HDS support; maintain MAP>65 -MAPs 40-50s unresponsive to ivf -> on levophed Pulm: -trach and vent dependent with sats 100% -CXR: bibasilar pleural effusions with atelectasis vs infiltrate, L>R; slightly worsening vascular changes -s/p 20mg iv lasix and 40mg today -empiric abx GI: -PEG in place -continuing feeds and tolerating well # GIB w/ blood per rectum and high BUN - 40mg pantoprazole BID - GI(DiGornio) consult: --suspect small bowel ectasias --in depth discussion with daughter regarding repeat colonoscopy and daughter states she will not pursue; will continue conservative GI bleed management HEME: # normocytic anemia --possibly 2/2 GIB - pRBC x2 - post-transfusion CBC stable Renal: -Cr stable -UA: turbid appearance with 3+leuks, bacteria and WBC -s/p IVF 3L; currently off ivf given edema -renal team following ID: -tmax 102.3 s/p tylenol T 102 -received empiric abx(vanc, zosyn, meropenem, levofloxacin, daptomycin) given previous sensitivities -BCx with MRSA -Cdif + -Shira DCd -PO vanc; IV vanc given dependent on levels Wound: -sacral decubitus debridement site, does not appear infected -daily wound care; frequent turns; offloading; santyl daily Dispo: ICU monitoring for pressor requirement HCP is daughter, however, after ED convo with daughter, she states she relinquishes authority to her father to make decision regarding code status. After discussion with Mr Laboy, states he would like full code Visit type - Emergency Visit Emergency Visit: No - New Patient This patient is new to me today: No - Critical Care Critical Care patient: Yes Total Critical Care Time (in minutes): 40 Critical Care Statement: The care of this patient involved high complexity decision making to prevent further life threatening deterioration of the patient 's condition and/or to evaluate & treat vital organ system(s) failure or risk of failure. ATTENDING PHYSICIAN STATEMENT I saw and evaluated the patient. I reviewed the resident's note and discussed the case with the resident. I agree with the resident's findings and plan as documented. SUBJECTIVE: OBJECTIVE: ASSESSMENT AND PLAN:
[2019-04-28] MEDS: COLLAGENASE CLOSTRIDIUM HIST. 30 GRAMS TUBE TP SCH (13:12)
[2019-04-28] MEDS: ZINC OXIDE 20% TOPICAL OINTMENT 30 GM TUBE TP SCH ×2 (13:12→21:21)
--- NOTE | 2019-04-28 14:09 | PN ---
Teaching Attending Note Name of Resident: Oneil Ashley ATTENDING PHYSICIAN STATEMENT I saw and evaluated the patient. I reviewed the resident's note and discussed the case with the resident. I agree with the resident's findings and plan as documented. SUBJECTIVE: Patient seen and examined in the ICU. Vented, poorly responsive. Hemodynamics unstable overnight and not responding to IVF resuscitation, requiring NE to be restarted. OBJECTIVE: Intake & Output 04/25/19 04/26/19 04/27/19 04/28/19 23:59 23:59 23:59 23:59 Intake Total 3939.4 3220.5 2560 550 Output Total 1050 1500 1400 250 Balance 2889.4 1720.5 1160 300 Weight 163 lb 6.4 oz 166 lb 9.6 oz 166 lb 6 oz 178 lb 12.718 oz Last Vital Signs Temp Pulse Resp BP Pulse Ox 98.2 F 62 27 H 129/44 L 99 04/28/19 10:00 04/28/19 12:00 04/28/19 12:13 04/28/19 12:00 04/28/19 10:00 Active Medications Albuterol/Ipratropium (Duoneb -) 1 amp NEB RQID [facility] Last Admin: 04/28/19 12:18 Dose: 1 amp Amino Acids (Prosource No Carb Liquid Pkt) 30 ml GT BID@0800,1730 [facility] Last Admin: 04/28/19 09:22 Dose: 30 ml Amiodarone HCl (Cordarone -) 200 mg PO BID [facility] Last Admin: 04/28/19 09:23 Dose: 200 mg Apixaban (Eliquis -) 5 mg PEG BID [facility] Ascorbic Acid (Vitamin C Oral Solution -) 250 mg GT DAILY [facility] Last Admin: 04/28/19 09:24 Dose: 250 mg Chlorhexidine Gluconate (Hibiclens For Decolonization -) 1 applic TP HS [facility] Last Admin: 04/27/19 21:21 Dose: 1 applic Collagenase (Santyl -) 1 applic TP DAILY [facility]; Protocol Last Admin: 04/28/19 13:12 Dose: 1 applic Norepinephrine Bitartrate 8, (000 mcg/ Dextrose) 500 mls @ 18.75 mls/hr IV TITR [facility]; Protocol Last Titration: 04/28/19 12:00 Dose: 5 mcg/min, 18.75 mls/hr Insulin Aspart (Novolog Vial Sliding Scale -) 1 vial SQ ACHS [facility]; Protocol Last Admin: 04/28/19 12:08 Dose: 6 units Metoprolol Tartrate (Lopressor Injection -) 5 mg IVPUSH Q4H PRN PRN Reason: TACHYCARDIA Multi-Ingredient Ointment (Zinc Oxide) 1 applic TP BID [facility] Last Admin: 04/28/19 13:12 Dose: 1 applic Multivitamins/Minerals (Certavite-Antioxidant Liquid) 15 ml GT DAILY [facility] Last Admin: 04/28/19 09:23 Dose: 15 ml Nystatin (Mycostatin Cream -) 1 applic TP BID [facility] Last Admin: 04/28/19 10:30 Dose: 1 applic Pantoprazole Sodium (Protonix Iv) 40 mg IVPUSH BID [facility] Last Admin: 04/28/19 09:24 Dose: 40 mg Vancomycin HCl (Vancomycin Oral Solution) 125 mg GT Q6HPO [facility] Last Admin: 04/28/19 12:08 Dose: 125 mg Zinc Sulfate (Orazinc -) 220 mg GT DAILY [facility] Last Admin: 04/28/19 09:24 Dose: 220 mg Gen: vented, poorly responsive Heart: irregular Lung: scattered rhonchi Abd: soft, nontender Ext: + edema Back: stage IV sacral ulcer with granulation tissue Laboratory Results - last 24 hr 04/27/19 04/27/19 04/27/19 06:00 16:38 21:28 WBC RBC Hgb Hct MCV MCH MCHC RDW Plt Count MPV Absolute Neuts (auto) Neutrophils % Lymphocytes % Monocytes % Eosinophils % Basophils % Nucleated RBC % Sodium 149 H Potassium 3.4 L Chloride 120 H Carbon Dioxide 24 Anion Gap 6 L BUN 48.4 H Creatinine 0.8 Est GFR (CKD-EPI)AfAm 82.42 Est GFR (CKD-EPI)NonAf 71.11 POC Glucometer 227 194 Random Glucose 236 H Calcium 8.4 L Phosphorus Magnesium 2.3 Total Bilirubin 0.5 AST 45 H ALT 48 Alkaline Phosphatase 247 H Troponin I Total Protein 4.7 L Albumin 1.3 L Random Vancomycin 04/28/19 04/28/19 04/28/19 05:40 05:40 05:40 WBC 14.1 H RBC 3.32 L Hgb 8.7 L Hct 27.1 L MCV 81.7 MCH 26.1 MCHC 32.0 RDW 19.9 H Plt Count 116 L MPV 9.9 Absolute Neuts (auto) 11.9 H Neutrophils % 84.5 H Lymphocytes % 7.6 L D Monocytes % 3.9 Eosinophils % 3.8 Basophils % 0.2 Nucleated RBC % 0 Sodium 150 H Potassium 3.4 L Chloride 121 H Carbon Dioxide 24 Anion Gap 5 L BUN 50.0 H Creatinine 0.8 Est GFR (CKD-EPI)AfAm 82.42 Est GFR (CKD-EPI)NonAf 71.11 POC Glucometer Random Glucose 236 H Calcium 8.0 L Phosphorus 2.8 Magnesium 2.3 Total Bilirubin 0.3 AST 29 ALT 37 Alkaline Phosphatase 234 H Troponin I 0.69 H* Total Protein 4.4 L Albumin 1.2 L Random Vancomycin 22.4 04/28/19 04/28/19 05:48 12:07 WBC RBC Hgb Hct MCV MCH MCHC RDW Plt Count MPV Absolute Neuts (auto) Neutrophils % Lymphocytes % Monocytes % Eosinophils % Basophils % Nucleated RBC % Sodium Potassium Chloride Carbon Dioxide Anion Gap BUN Creatinine Est GFR (CKD-EPI)AfAm Est GFR (CKD-EPI)NonAf POC Glucometer 217 294 Random Glucose Calcium Phosphorus Magnesium Total Bilirubin AST ALT Alkaline Phosphatase Troponin I Total Protein Albumin Random Vancomycin ASSESSMENT AND PLAN: Septic Shock UTI Pneumonia Suspected Sacral Decubitus Ulcer Infection GI Bleed likely Upper Acute Blood Loss Anemia Atrial Fibrillation with RVR CAD COPD HTN DM h/o CVA - Pressors to maintain MAP > 65 - ABX per ID - PPI - Normal transfusion thresholds - rate control - continue volume assist control - DVT/GI prophylaxis - Requires ICU monitoring for pressors Dr Stover Critical care time spent in reviewing chart, evaluating patient and formulating plan - 36 minutes.
--- NOTE | 2019-04-28 15:49 | PN ---
Progress Note (short form) - Note Progress Note: Renal follow up for CONOR/CKD Seen and examined in the ICU on vent via trach no overnight events on IVF on tube feeds Vital Signs Temperature 98.2 F 04/28/19 10:00 Pulse Rate 66 04/28/19 14:00 Respiratory Rate 29 H 04/28/19 14:00 Blood Pressure 117/43 L 04/28/19 14:00 O2 Sat by Pulse Oximetry (%) 99 04/28/19 10:00 Intake & Output 04/25/19 04/26/19 04/27/19 04/28/19 23:59 23:59 23:59 23:59 Intake Total 3939.4 3220.5 2560 550 Output Total 1050 1500 1400 750 Balance 2889.4 1720.5 1160 -200 Weight 74.117 kg 75.568 kg 75.466 kg 81.1 kg NAD on vent via trach RRR DEc BS bilaterally soft NT/ND no LE edema CBC, BMP 04/28/19 05:40 04/28/19 05:40 Current Medications Albuterol/Ipratropium (Duoneb -) 1 amp NEB RQID [facility] Last Admin: 04/28/19 12:18 Dose: 1 amp Amino Acids (Prosource No Carb Liquid Pkt) 30 ml GT BID@0800,1730 [facility] Last Admin: 04/28/19 09:22 Dose: 30 ml Amiodarone HCl (Cordarone -) 200 mg PO BID [facility] Last Admin: 04/28/19 09:23 Dose: 200 mg Apixaban (Eliquis -) 5 mg PEG BID [facility] Ascorbic Acid (Vitamin C Oral Solution -) 250 mg GT DAILY [facility] Last Admin: 04/28/19 09:24 Dose: 250 mg Chlorhexidine Gluconate (Hibiclens For Decolonization -) 1 applic TP HS [facility] Last Admin: 04/27/19 21:21 Dose: 1 applic Collagenase (Santyl -) 1 applic TP DAILY [facility]; Protocol Last Admin: 04/28/19 13:12 Dose: 1 applic Norepinephrine Bitartrate 8, (000 mcg/ Dextrose) 500 mls @ 18.75 mls/hr IV TITR [facility]; Protocol Last Titration: 04/28/19 12:00 Dose: 5 mcg/min, 18.75 mls/hr Insulin Aspart (Novolog Vial Sliding Scale -) 1 vial SQ ACHS [facility]; Protocol Last Admin: 04/28/19 12:08 Dose: 6 units Metoprolol Tartrate (Lopressor Injection -) 5 mg IVPUSH Q4H PRN PRN Reason: TACHYCARDIA Multi-Ingredient Ointment (Zinc Oxide) 1 applic TP BID [facility] Last Admin: 04/28/19 13:12 Dose: 1 applic Multivitamins/Minerals (Certavite-Antioxidant Liquid) 15 ml GT DAILY [facility] Last Admin: 04/28/19 09:23 Dose: 15 ml Nystatin (Mycostatin Cream -) 1 applic TP BID [facility] Last Admin: 04/28/19 10:30 Dose: 1 applic Pantoprazole Sodium (Protonix Iv) 40 mg IVPUSH BID [facility] Last Admin: 04/28/19 09:24 Dose: 40 mg Vancomycin HCl (Vancomycin Oral Solution) 125 mg GT Q6HPO [facility] Last Admin: 04/28/19 12:08 Dose: 125 mg Zinc Sulfate (Orazinc -) 220 mg GT DAILY [facility] Last Admin: 04/28/19 09:24 Dose: 220 mg 79-year-old female with history of chronic respiratory failure, hypertension, coronary artery disease, chronic atrial fibrillation, sick sinus syndrome, type 2 diabetes mellitus, hypertension, GI bleed, recent polymicrobial sepsis, cerebrovascular accident, status post chronic ventilatory support through tracheostomy and chronic kidney failure 1. CONOR now resolved 2. Hypernatremia 3. Sepsis/Septic shock 4. Respiratory failure on Vent 5. Hypokalemia Renal function improved and stable Increase free water with tube feeds can discontinue IVF given third spacing and pleural effusions Trend renal function and electrolytes daily Tashi Aguirre DO
[2019-04-28] MEDS ORDERED: INSULIN (NOVOLOG) ASPART 100 UNITS/ML 10ML VIAL ONE (17:56)
--- NOTE | 2019-04-28 18:29 | PN ---
Progress Note, Physician History of Present Illness: AWAKE ON VENTILATOR EYES OPEN AFEBRILE BACK ON PRESSORS BC MRSA VANCO LEVEL NOTED C DIFF+ URINE, WOUND C/S MIXED - Current Medication List Current Medications: Active Medications Albuterol/Ipratropium (Duoneb -) 1 amp NEB RQID [facility] Last Admin: 04/28/19 16:00 Dose: 1 amp Amino Acids (Prosource No Carb Liquid Pkt) 30 ml GT BID@0800,1730 [facility] Last Admin: 04/28/19 17:43 Dose: 30 ml Amiodarone HCl (Cordarone -) 200 mg PO BID [facility] Last Admin: 04/28/19 09:23 Dose: 200 mg Apixaban (Eliquis -) 5 mg PEG BID [facility] Ascorbic Acid (Vitamin C Oral Solution -) 250 mg GT DAILY [facility] Last Admin: 04/28/19 09:24 Dose: 250 mg Chlorhexidine Gluconate (Hibiclens For Decolonization -) 1 applic TP HS [facility] Last Admin: 04/27/19 21:21 Dose: 1 applic Collagenase (Santyl -) 1 applic TP DAILY [facility]; Protocol Last Admin: 04/28/19 13:12 Dose: 1 applic Norepinephrine Bitartrate 8, (000 mcg/ Dextrose) 500 mls @ 18.75 mls/hr IV TITR [facility]; Protocol Last Titration: 04/28/19 12:00 Dose: 5 mcg/min, 18.75 mls/hr Insulin Aspart (Novolog Vial Sliding Scale -) 1 vial SQ ACHS [facility]; Protocol Last Admin: 04/28/19 16:32 Dose: 6 units Metoprolol Tartrate (Lopressor Injection -) 5 mg IVPUSH Q4H PRN PRN Reason: TACHYCARDIA Multi-Ingredient Ointment (Zinc Oxide) 1 applic TP BID [facility] Last Admin: 04/28/19 13:12 Dose: 1 applic Multivitamins/Minerals (Certavite-Antioxidant Liquid) 15 ml GT DAILY [facility] Last Admin: 04/28/19 09:23 Dose: 15 ml Nystatin (Mycostatin Cream -) 1 applic TP BID [facility] Last Admin: 04/28/19 10:30 Dose: 1 applic Pantoprazole Sodium (Protonix Iv) 40 mg IVPUSH BID [facility] Last Admin: 04/28/19 09:24 Dose: 40 mg Vancomycin HCl (Vancomycin Oral Solution) 125 mg GT Q6HPO [facility] Last Admin: 02/25/20 17:57 Dose: 125 mg Zinc Sulfate (Orazinc -) 220 mg GT DAILY [facility] Last Admin: 04/28/19 09:24 Dose: 220 mg - Objective Vital Signs: Vital Signs Temperature 98.6 F 04/28/19 18:00 Pulse Rate 64 04/28/19 18:00 Respiratory Rate 18 04/28/19 18:00 Blood Pressure 139/40 L 04/28/19 18:00 O2 Sat by Pulse Oximetry (%) 99 04/28/19 10:00 Constitutional: Yes: No Distress Eyes: Yes: Conjunctiva Clear Cardiovascular: Yes: Regular Rate and Rhythm, S1, S2 Respiratory: Yes: Mechanically Ventilated Gastrointestinal: Yes: Normal Bowel Sounds, Soft. No: Tenderness Labs: CBC, BMP 04/28/19 05:40 04/28/19 05:40 INR, PTT INR 1.11 (0.83-1.09) H 04/24/19 06:00 Assessment/Plan SEPSIS/ SEPTIC SHOCK MRSA BACTEREMIA + C DIFF CHRONIC RESP FAILURE ANEMIA AZOTEMIA HX MDRO CONTINUE VANCO PER LEVELS VANCO VIA GT PRESSORS CONTACT PRECAUTIONS
[2019-04-28] MEDS: APIXABAN 5 MG TABLET PEG SCH (21:19)
[2019-04-28] MEDS: CHLORHEXIDINE GLUCONATE 4% CLEANSER FOR DECOLONIZATION TP SCH (21:21)
[2019-04-29] MEDS: VANCOMYCIN 250 MG/5 ML ORAL SOLUTION GT SCH ×5 (00:02→23:21)
[2019-04-29 05:53] LABS: BASO % 0.1 % (0-2.0); EOS % 4.6 % (0-4.5); HEMATOCRIT 27.9 % (32.4-45.2); HEMOGLOBIN 8.9 GM/dL (10.7-15.3); LYMPH % 8.3 % (8-40); MCH 26.2 pg (25.7-33.7); MEAN CELL VOLUME 81.8 fl (80-96); MEAN PLT VOLUME 9.5 fl (7.5-11.1); MONO % 4.5 % (3.8-10.2); NEUT % 82.5 % (42.8-82.8); PLATELET COUNT 121 K/MM3 (134-434); RBC 3.41 M/mm3 (3.60-5.2); RDW 19.7 % (11.6-15.6); WHITE BLOOD COUNT 14.6 K/mm3 (4.0-10.0)
[2019-04-29] MEDS: INSULIN SLIDING SCALE (NOVOLOG) 1 VIAL SQ SCH ×4 (06:32→21:10)
[2019-04-29 06:43] LABS: ALBUMIN 1.3 g/dl (3.4-5.0); BILIRUBIN,TOTAL 0.4 mg/dL (0.2-1); BLOOD UREA NITROGEN 40.5 mg/dL (7-18); CALCIUM 7.7 mg/dL (8.5-10.1); CREATININE 0.7 mg/dL (0.55-1.3); MAGNESIUM 2.1 mg/dL (1.8-2.4); PHOSPHOROUS 3.2 mg/dL (2.5-4.9); POTASSIUM 3.6 mmol/L (3.5-5.1); TOT PROT 4.8 g/dl (6.4-8.2)
[2019-04-29] MEDS: ALBUTEROL SO4 2.5/IPRATROPIUM 0.5 INH SOL 3 ML VIAL.NEB. NEB SCH ×3 (08:00→15:38)
[2019-04-29] MEDS ORDERED: PT OWN MED DRAWER 7, Y5N ONE ×3 (09:22→16:46)
[2019-04-29] MEDS: ZINC SULFATE 220 MG CAPSULE (FP) GT SCH (09:43)
[2019-04-29] MEDS: PANTOPRAZOLE SODIUM 40 MG VIAL IVPUSH SCH ×2 (09:43→21:10)
[2019-04-29] MEDS: APIXABAN 5 MG TABLET PEG SCH ×2 (09:43→21:10)
[2019-04-29] MEDS: AMINO ACIDS/PROTEIN HYDROLYS 30 ML LIQUID.PKT GT SCH ×2 (09:44→17:01)
[2019-04-29] MEDS: COLLAGENASE CLOSTRIDIUM HIST. 30 GRAMS TUBE TP SCH (09:44)
[2019-04-29] MEDS: AMIODARONE HCL 200 MG TABLET PO SCH (09:44)
[2019-04-29] MEDS: NYSTATIN 100,000 UNIT/GM TOPICAL CREAM 15 GM TUBE TP SCH ×2 (09:44→21:11)
[2019-04-29] MEDS: ZINC OXIDE 20% TOPICAL OINTMENT 30 GM TUBE TP SCH ×2 (09:45→21:11)
[2019-04-29] MEDS ORDERED: VANCOMYCIN 1 GRAM (PRE-DOCKED) 1,000 MG/250 ML BAG IVPB ONE (11:00)
--- NOTE | 2019-04-29 11:41 | PN ---
Progress Note, Physician Chief Complaint: Sepsis Septic shock Cdiff + Hypernatremia Anemia Chronic respiratory failure - Current Medication List Current Medications: Active Medications Albuterol/Ipratropium (Duoneb -) 1 amp NEB RQID [facility] Last Admin: 04/28/19 21:15 Dose: 1 amp Amino Acids (Prosource No Carb Liquid Pkt) 30 ml GT BID@0800,1730 [facility] Last Admin: 04/29/19 09:44 Dose: 30 ml Amiodarone HCl (Cordarone -) 200 mg PO DAILY [facility] Last Admin: 04/29/19 09:44 Dose: 200 mg Apixaban (Eliquis -) 5 mg PEG BID [facility] Last Admin: 04/29/19 09:43 Dose: 5 mg Ascorbic Acid (Vitamin C Oral Solution -) 250 mg GT DAILY [facility] Last Admin: 04/28/19 09:24 Dose: 250 mg Chlorhexidine Gluconate (Hibiclens For Decolonization -) 1 applic TP HS [facility] Last Admin: 04/28/19 21:21 Dose: 1 applic Collagenase (Santyl -) 1 applic TP DAILY [facility]; Protocol Last Admin: 04/29/19 09:44 Dose: 1 applic Norepinephrine Bitartrate 8, (000 mcg/ Dextrose) 500 mls @ 18.75 mls/hr IV TITR [facility]; Protocol Last Titration: 04/29/19 06:50 Dose: 3 mcg/min, 11.25 mls/hr Vancomycin HCl (Vancomycin (Pre-Docked)) 1,000 mg in 250 mls @ 166.667 mls/hr IVPB ONCE ONE; Protocol Stop: 04/29/19 12:29 Insulin Aspart (Novolog Vial Sliding Scale -) 1 vial SQ ACHS [facility]; Protocol Last Admin: 04/29/19 06:32 Dose: 6 units Metoprolol Tartrate (Lopressor Injection -) 5 mg IVPUSH Q4H PRN PRN Reason: TACHYCARDIA Multi-Ingredient Ointment (Zinc Oxide) 1 applic TP BID [facility] Last Admin: 04/29/19 09:45 Dose: 1 applic Multivitamins/Minerals (Certavite-Antioxidant Liquid) 15 ml GT DAILY [facility] Last Admin: 04/28/19 09:23 Dose: 15 ml Nystatin (Mycostatin Cream -) 1 applic TP BID [facility] Last Admin: 04/29/19 09:44 Dose: 1 applic Pantoprazole Sodium (Protonix Iv) 40 mg IVPUSH BID [facility] Last Admin: 04/29/19 09:43 Dose: 40 mg Vancomycin HCl (Vancomycin Oral Solution) 125 mg GT Q6HPO [facility] Last Admin: 04/29/19 06:30 Dose: 125 mg Zinc Sulfate (Orazinc -) 220 mg GT DAILY [facility] Last Admin: 04/29/19 09:43 Dose: 220 mg - Objective Vital Signs: Vital Signs Temperature 97.6 F 04/29/19 10:00 Pulse Rate 95 H 04/29/19 10:00 Respiratory Rate 16 04/29/19 10:00 Blood Pressure 108/43 L 04/29/19 10:00 O2 Sat by Pulse Oximetry (%) 100 04/29/19 09:00 Constitutional: Yes: Well Nourished, No Distress, Calm Cardiovascular: Yes: Regular Rate and Rhythm Respiratory: Yes: Mechanically Ventilated, Rhonchi (diffuse) Gastrointestinal: Yes: Normal Bowel Sounds, Soft Genitourinary: Yes: [place] Present Musculoskeletal: Yes: Muscle Weakness (functional weakness) Edema: No Peripheral Pulses WNL: Yes Neurological: Yes: Alert Psychiatric: Yes: Alert Labs: CBC, BMP 04/29/19 05:10 04/29/19 05:10 INR, PTT INR 1.11 (0.83-1.09) H 04/24/19 06:00 Problem List - Problems (1) CONOR (acute kidney injury) Assessment/Plan: -Cr normalized -Nephrology on board Problems reviewed: Yes Code(s): N17.9 - ACUTE KIDNEY FAILURE, UNSPECIFIED (2) Abnormal liver function tests Assessment/Plan: -chronic, asymptomatic -GI on board -Avoid hepatotoxic drugs -Statin discontinued -Pt refuses colonoscopy at this time Problems reviewed: Yes Code(s): R94.5 - ABNORMAL RESULTS OF LIVER FUNCTION STUDIES (3) Anemia Assessment/Plan: -Previously guaiac + -On AC for chronic afib, benefit>risks -H/H stable -previously low in Iron % -repeat Iron studies, B 12 and thyroid -monitor trend -Transfuse if Hg<7.0 to avoid fluid overload, since pt is chronically anemic Problems reviewed: Yes Code(s): D64.9 - ANEMIA, UNSPECIFIED (4) Atrial fibrillation with RVR Assessment/Plan: -Chronic -rate controlled -Continue Eliquis 5 mg po BID Problems reviewed: Yes Code(s): I48.91 - UNSPECIFIED ATRIAL FIBRILLATION (5) Sacral decubitus ulcer, stage III Assessment/Plan: -Local wound care -Offloading -T&P Q2H -On prosource + Multivitamin Problems reviewed: Yes Code(s): L89.153 - PRESSURE ULCER OF SACRAL REGION, STAGE 3 (6) Septic shock Assessment/Plan: -ID on board -Cultures reviewed -IV Vanco -Afebrile -leukocytes improved Problems reviewed: Yes Code(s): A41.9 - SEPSIS, UNSPECIFIED ORGANISM; R65.21 - SEVERE SEPSIS WITH SEPTIC SHOCK (7) C. difficile diarrhea Assessment/Plan: -PO Vancomycin -Contact isolation Problems reviewed: Yes Code(s): A04.72 - ENTEROCOLITIS D/T CLOSTRIDIUM DIFFICILE, NOT SPCF RECUR (8) Elevated troponin I level Assessment/Plan: -2/2 to demand ischemia in setting of septic shock Problems reviewed: Yes Code(s): R74.8 - ABNORMAL LEVELS OF OTHER SERUM ENZYMES (9) GIB (gastrointestinal bleeding) Problems reviewed: Yes Code(s): K92.2 - GASTROINTESTINAL HEMORRHAGE, UNSPECIFIED Qualifiers: GI bleed type/associated pathology: unspecified gastrointestinal hemorrhage type Qualified Code(s): K92.2 - Gastrointestinal hemorrhage, unspecified (10) Functional quadriplegia Code(s): R53.2 - FUNCTIONAL QUADRIPLEGIA Assessment/Plan see problem list
--- NOTE | 2019-04-29 12:44 | PN ---
Teaching Attending Note Name of Resident: Oneil Ashley ATTENDING PHYSICIAN STATEMENT I saw and evaluated the patient. I reviewed the resident's note and discussed the case with the resident. I agree with the resident's findings and plan as documented. SUBJECTIVE: Pt seen and examined in the ICU. Remains vented, poorly responsive. Restarted on vasopressors support for hypotension. OBJECTIVE: Vital Signs Period Temp Pulse Resp BP Sys/[place] Pulse Ox Last 24 Hr 97.6 F-98.6 F 61-98 16-29 108-139/38-65 100-100 Intake & Output 04/26/19 04/27/19 04/28/19 04/29/19 23:59 23:59 23:59 23:59 Intake Total 3220.5 2560 2704.4 683 Output Total 1500 1400 950 500 Balance 1720.5 1160 1754.4 183 Weight 75.568 kg 75.466 kg 81.1 kg 82.055 kg Gen: vented, poorly responsive Heart: RRR Lung: scattered rhonchi Abd: soft, nontender Ext: + edema CBC, BMP 04/29/19 05:10 04/29/19 05:10 Active Medications Albuterol/Ipratropium (Duoneb -) 1 amp NEB RQID [facility] Last Admin: 04/28/19 21:15 Dose: 1 amp Amino Acids (Prosource No Carb Liquid Pkt) 30 ml GT BID@0800,1730 [facility] Last Admin: 04/29/19 09:44 Dose: 30 ml Amiodarone HCl (Cordarone -) 200 mg PO DAILY [facility] Last Admin: 04/29/19 09:44 Dose: 200 mg Apixaban (Eliquis -) 5 mg PEG BID [facility] Last Admin: 04/29/19 09:43 Dose: 5 mg Ascorbic Acid (Vitamin C Oral Solution -) 250 mg GT DAILY [facility] Last Admin: 04/28/19 09:24 Dose: 250 mg Chlorhexidine Gluconate (Hibiclens For Decolonization -) 1 applic TP HS [facility] Last Admin: 04/28/19 21:21 Dose: 1 applic Collagenase (Santyl -) 1 applic TP DAILY [facility]; Protocol Last Admin: 04/29/19 09:44 Dose: 1 applic Norepinephrine Bitartrate 8, (000 mcg/ Dextrose) 500 mls @ 18.75 mls/hr IV TITR [facility]; Protocol Last Titration: 04/29/19 06:50 Dose: 3 mcg/min, 11.25 mls/hr Insulin Aspart (Novolog Vial Sliding Scale -) 1 vial SQ ACHS [facility]; Protocol Last Admin: 04/29/19 12:32 Dose: 10 units Metoprolol Tartrate (Lopressor Injection -) 5 mg IVPUSH Q4H PRN PRN Reason: TACHYCARDIA Multi-Ingredient Ointment (Zinc Oxide) 1 applic TP BID [facility] Last Admin: 04/29/19 09:45 Dose: 1 applic Multivitamins/Minerals (Certavite-Antioxidant Liquid) 15 ml GT DAILY [facility] Last Admin: 04/28/19 09:23 Dose: 15 ml Nystatin (Mycostatin Cream -) 1 applic TP BID [facility] Last Admin: 04/29/19 09:44 Dose: 1 applic Pantoprazole Sodium (Protonix Iv) 40 mg IVPUSH BID [facility] Last Admin: 04/29/19 09:43 Dose: 40 mg Vancomycin HCl (Vancomycin Oral Solution) 125 mg GT Q6HPO [facility] Last Admin: 04/29/19 12:13 Dose: 125 mg Zinc Sulfate (Orazinc -) 220 mg GT DAILY [facility] Last Admin: 04/29/19 09:43 Dose: 220 mg ASSESSMENT AND PLAN: UTI Pneumonia Suspected Sacral Decubitus Ulcer Infection C Diff Colitis Septic Shock GI Bleed likely Upper Acute Blood Loss Anemia Atrial Fibrillation with RVR CAD COPD HTN DM h/o CVA - continue antibiotics - f/u cultures - IVF to keep CVP 8-12 - titrate pressors to maintain MAP > 65 - protonix - monitor H/H - transfuse as needed - rate control - continue volume assist control - DVT/GI prophylaxis - requires ICU monitoring for hemodynamic instability - poor overall prognosis critical care time spent in reviewing chart, evaluating patient and formulating plan 35 min
--- NOTE | 2019-04-29 12:46 | PN ---
Progress Note, Physician History of Present Illness: Remains on pressors. - Current Medication List Current Medications: Active Medications Albuterol/Ipratropium (Duoneb -) 1 amp NEB RQID [facility] Last Admin: 04/28/19 21:15 Dose: 1 amp Amino Acids (Prosource No Carb Liquid Pkt) 30 ml GT BID@0800,1730 [facility] Last Admin: 04/29/19 09:44 Dose: 30 ml Amiodarone HCl (Cordarone -) 200 mg PO DAILY [facility] Last Admin: 04/29/19 09:44 Dose: 200 mg Apixaban (Eliquis -) 5 mg PEG BID [facility] Last Admin: 04/29/19 09:43 Dose: 5 mg Ascorbic Acid (Vitamin C Oral Solution -) 250 mg GT DAILY [facility] Last Admin: 04/28/19 09:24 Dose: 250 mg Chlorhexidine Gluconate (Hibiclens For Decolonization -) 1 applic TP HS [facility] Last Admin: 04/28/19 21:21 Dose: 1 applic Collagenase (Santyl -) 1 applic TP DAILY [facility]; Protocol Last Admin: 04/29/19 09:44 Dose: 1 applic Norepinephrine Bitartrate 8, (000 mcg/ Dextrose) 500 mls @ 18.75 mls/hr IV TITR [facility]; Protocol Last Titration: 04/29/19 06:50 Dose: 3 mcg/min, 11.25 mls/hr Insulin Aspart (Novolog Vial Sliding Scale -) 1 vial SQ ACHS [facility]; Protocol Last Admin: 04/29/19 12:32 Dose: 10 units Metoprolol Tartrate (Lopressor Injection -) 5 mg IVPUSH Q4H PRN PRN Reason: TACHYCARDIA Multi-Ingredient Ointment (Zinc Oxide) 1 applic TP BID [facility] Last Admin: 04/29/19 09:45 Dose: 1 applic Multivitamins/Minerals (Certavite-Antioxidant Liquid) 15 ml GT DAILY [facility] Last Admin: 04/28/19 09:23 Dose: 15 ml Nystatin (Mycostatin Cream -) 1 applic TP BID [facility] Last Admin: 04/29/19 09:44 Dose: 1 applic Pantoprazole Sodium (Protonix Iv) 40 mg IVPUSH BID [facility] Last Admin: 04/29/19 09:43 Dose: 40 mg Vancomycin HCl (Vancomycin Oral Solution) 125 mg GT Q6HPO [facility] Last Admin: 04/29/19 12:13 Dose: 125 mg Zinc Sulfate (Orazinc -) 220 mg GT DAILY [facility] Last Admin: 04/29/19 09:43 Dose: 220 mg - Objective Vital Signs: Vital Signs Temperature 97.6 F 04/29/19 10:00 Pulse Rate 96 H 04/29/19 12:00 Respiratory Rate 25 H 04/29/19 12:31 Blood Pressure 113/42 L 04/29/19 12:00 O2 Sat by Pulse Oximetry (%) 100 04/29/19 09:00 Constitutional: Yes: No Distress, Calm Neck: Yes: Other (Tracheostomy) Cardiovascular: Yes: Regular Rate and Rhythm Respiratory: Yes: Mechanically Ventilated Gastrointestinal: Yes: Normal Bowel Sounds, Soft, Other (PEG in place) Genitourinary: Yes: De [place] Present Edema: Yes Edema: LLE: 1+, RLE: 1+ Labs: CBC, BMP 04/29/19 05:10 04/29/19 05:10 INR, PTT INR 1.11 (0.83-1.09) H 04/24/19 06:00 - ....Imaging Chest X-ray: Report Reviewed (Stable) EKG: Report Reviewed (Tele: AV paced) Problem List - Problems (1) Anemia Code(s): D64.9 - ANEMIA, UNSPECIFIED Qualifiers: Iron deficiency anemia type: chronic blood loss (2) C. difficile diarrhea Code(s): A04.72 - ENTEROCOLITIS D/T CLOSTRIDIUM DIFFICILE, NOT SPCF RECUR (3) Septic shock Code(s): A41.9 - SEPSIS, UNSPECIFIED ORGANISM; R65.21 - SEVERE SEPSIS WITH SEPTIC SHOCK (4) Stage 4 skin ulcer of sacral region Code(s): L98.429 - NON-PRESSURE CHRONIC ULCER OF BACK WITH UNSPECIFIED SEVERITY (5) A-fib Code(s): I48.91 - UNSPECIFIED ATRIAL FIBRILLATION Qualifiers: Atrial fibrillation type: longstanding persistent Qualified Code(s): I48.11 - Longstanding persistent atrial fibrillation (6) Angiodysplasia of colon with hemorrhage Code(s): K55.21 - ANGIODYSPLASIA OF COLON WITH HEMORRHAGE (7) CAD (coronary artery disease) Code(s): I25.10 - ATHSCL HEART DISEASE OF [place] CORONARY ARTERY W/O ANG PCTRS Qualifiers: Coronary Disease-Associated Artery/Lesion type: [place] artery [place] vs. 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: with fpc use Diabetes mellitus complication status: with hyperglycemia Qualified Code(s): E11.65 - Type 2 diabetes mellitus with hyperglycemia; Z79.4 - intermediate project manager (current) use of insulin (11) Diastolic dysfunction Code(s): I51.89 - OTHER ILL-DEFINED HEART DISEASES (12) Elevated troponin I level Code(s): R74.8 - ABNORMAL LEVELS OF OTHER SERUM ENZYMES (13) GIB (gastrointestinal bleeding) Code(s): K92.2 - GASTROINTESTINAL HEMORRHAGE, UNSPECIFIED Qualifiers: GI bleed type/associated pathology: unspecified gastrointestinal hemorrhage type Qualified Code(s): K92.2 - Gastrointestinal hemorrhage, unspecified (14) Hemiparesis and other late effects of cerebrovascular accident Code(s): I69.359 - HEMIPLGA FOLLOWING CEREBRAL INFARCTION AFFECTING UNSP SIDE; I69.398 - OTHER SEQUELAE OF CEREBRAL INFARCTION (15) S/P mitral valve repair Code(s): Z98.890 - OTHER SPECIFIED POSTPROCEDURAL STATES (16) Ventilator dependent Code(s): Z99.11 - DEPENDENCE ON RESPIRATOR [VENTILATOR] STATUS Assessment/Plan ASSESSMENT: 1. UTI, PNA, c. diff colitis, sacral decub infxn, septic shock, clinically resolving 2. CAD with evidence of demand ischemic injury angina pectoris 3. Diastolic LV dysfunction with clinical class 0 NYHA classification LV failure 4. Paroxysmal atrial fibrillation with RVR currently in sinus rhythm- atrial pacing [id number] score of 9 off of DOAC's/Eliquis 5. Sick sinus syndrome post PPM 6. Post mitral valve repair 7. History of CVA 8. Chronic respiratory failure on mechanical ventilation post tracheostomy 9. HTN 10. Hypercholesterolemia 11. COPD 12. Hypernatremia, improving 13. Hypokalemia 14. Pre-renal azotemia 15. Acute blood loss anemia with history of gastrointestinal bleed 16. Sacral decubitus ulcer PLAN: 1. Antibiotics with f/u C&S as per the primary team 2. Titrate pressors to maintain MAP > 65 3. Resume Lopressor once hemodynamics stabilize 3. Continue Amiodarone 200 mg daily 4. Add ACEI or ARBS unless contraindicated, hemodynamics permitting 5. Resumption of A/C with Eliquis unless it is absolutely contraindicated with close monitoring of Hg, transfuse to maintain Hg equal or > 8.0, protonix 6. No intervention indicated for the above noted elevated Troponin I level consistent with demand ischemia 7. Correction of Hypernatremia/pre-renal azotemia, free water supplementation 8. Correction of Hypokalemia
--- NOTE | 2019-04-29 16:27 | PN ---
Physical Exam: SUBJECTIVE: Patient seen and examined Required levo 2mcg overnight for low MAPs. No other issues. AF. Tolerating TFs. OBJECTIVE: Vital Signs Period Temp Pulse Resp BP Sys/Okeefe Pulse Ox Last 24 Hr 97.4 F-98.6 F 61-98 16-26 108-139/40-65 100-100 GENERAL: arousable but does not follow commands. Brief eye contact HEAD: Normal with no signs of trauma. EYES: PERRLA, EOMI ENT: Ears normal, nares patent, oropharynx clear without exudates. Moist mucous membranes. NECK: trach in place without evidence of infection, normal appearing borders, trach-vent LUNGS: vented, coarse breath sounds in all lung waller HEART: tachycardic, normal S1 and S2 without murmur, rub or gallop. ABDOMEN: PEG in place, soft, nontender, not distended, no guarding, no rebound, no masses. RECTAL: no melena MUSCULOSKELETAL: limited 2/2 to patient mental status; no obvious deformities LOWER EXTREMITIES: 2+ pulses, warm, well-perfused. No calf tenderness. No peripheral edema. NEUROLOGICAL: limited 2/2 mental status, does not follow commands PSYCHIATRIC: opens eyes during examination SKIN: sacral debridement wound ~11x8cm in diameter with depth to the bone, fibrinous tissue at the bases with no evidence of bleeding or purulence Laboratory Results - last 24 hr 04/28/19 04/28/19 04/29/19 16:31 21:11 05:07 WBC RBC Hgb Hct MCV MCH MCHC RDW Plt Count MPV Absolute Neuts (auto) Neutrophils % Lymphocytes % Monocytes % Eosinophils % Basophils % Nucleated RBC % Sodium Potassium Chloride Carbon Dioxide Anion Gap BUN Creatinine Est GFR (CKD-EPI)AfAm Est GFR (CKD-EPI)NonAf POC Glucometer 274 215 276 Random Glucose Calcium Phosphorus Magnesium Iron TIBC Iron Saturation Unsaturated IBC Total Bilirubin AST ALT Alkaline Phosphatase Total Protein Albumin Vitamin B12 Random Vancomycin 04/29/19 04/29/19 04/29/19 05:10 05:10 05:10 WBC 14.6 H RBC 3.41 L Hgb 8.9 L Hct 27.9 L MCV 81.8 MCH 26.2 MCHC 32.0 RDW 19.7 H Plt Count 121 L MPV 9.5 Absolute Neuts (auto) 12.0 H Neutrophils % 82.5 Lymphocytes % 8.3 Monocytes % 4.5 Eosinophils % 4.6 H Basophils % 0.1 Nucleated RBC % 0 Sodium 146 H Potassium 3.6 Chloride 118 H Carbon Dioxide 25 Anion Gap 4 L BUN 40.5 H Creatinine 0.7 Est GFR (CKD-EPI)AfAm 96.86 Est GFR (CKD-EPI)NonAf 83.57 POC Glucometer Random Glucose 315 H Calcium 7.7 L Phosphorus 3.2 Magnesium 2.1 Iron 26 L TIBC 194 L Iron Saturation 13 L Unsaturated IBC 168 L Total Bilirubin 0.4 AST 39 H ALT 38 Alkaline Phosphatase 289 H Total Protein 4.8 L Albumin 1.3 L Vitamin B12 1548 H Random Vancomycin 18.2 04/29/19 12:29 WBC RBC Hgb Hct MCV MCH MCHC RDW Plt Count MPV Absolute Neuts (auto) Neutrophils % Lymphocytes % Monocytes % Eosinophils % Basophils % Nucleated RBC % Sodium Potassium Chloride Carbon Dioxide Anion Gap BUN Creatinine Est GFR (CKD-EPI)AfAm Est GFR (CKD-EPI)NonAf POC Glucometer 392 Random Glucose Calcium Phosphorus Magnesium Iron TIBC Iron Saturation Unsaturated IBC Total Bilirubin AST ALT Alkaline Phosphatase Total Protein Albumin Vitamin B12 Random Vancomycin Active Medications Generic Name Dose Route Start Last Admin Trade Name Freq PRN Reason Stop Dose Admin Albuterol/Ipratropium 1 amp 04/22/19 20:00 04/29/19 15:38 Duoneb - NEB 1 amp RQID BAHMAN Administration Amino Acids 30 ml 04/26/19 17:30 04/29/19 09:44 Prosource No Carb Liquid Pkt GT 30 ml BID@0800,1730 BAHMAN Administration Amiodarone HCl 200 mg 04/29/19 10:00 04/29/19 09:44 Cordarone - PO 200 mg DAILY BAHMAN Administration Apixaban 5 mg 04/28/19 22:00 04/29/19 09:43 Eliquis - PEG 5 mg BID BAHMAN Administration Ascorbic Acid 250 mg 04/27/19 10:00 04/28/19 09:24 Vitamin C Oral Solution - GT 250 mg DAILY BAHMAN Administration Chlorhexidine Gluconate 1 applic 04/22/19 22:00 04/28/19 21:21 Hibiclens For Decolonization - TP 1 applic HS BAHMAN Administration Collagenase 1 applic 04/27/19 10:00 04/29/19 09:44 Santyl - TP 1 applic DAILY BAHMAN Administration Protocol Norepinephrine Bitartrate 8, 500 mls @ 18.75 mls/hr 04/28/19 12:15 04/29/19 08:00 000 mcg/ Dextrose IV 2 mcg/min TITR BAHMAN 7.5 mls/hr Titration Protocol 5 MCG/MIN Insulin Aspart 1 vial 04/23/19 22:00 04/29/19 12:32 Novolog Vial Sliding Scale - SQ 10 units ACHS BAHMAN Administration Protocol Metoprolol Tartrate 5 mg 04/27/19 13:06 Lopressor Injection - IVPUSH Q4H PRN TACHYCARDIA Multi-Ingredient Ointment 1 applic 04/26/19 22:00 04/29/19 09:45 Zinc Oxide TP 1 applic BID BAHMAN Administration Multivitamins/Minerals 15 ml 04/27/19 10:00 04/28/19 09:23 Certavite-Antioxidant Liquid GT 15 ml DAILY BAHMAN Administration Nystatin 1 applic 04/24/19 16:14 04/29/19 09:44 Mycostatin Cream - TP 1 applic BID BAHMAN Administration Pantoprazole Sodium 40 mg 04/24/19 10:00 04/29/19 09:43 Protonix Iv IVPUSH 40 mg BID BAHMAN Administration Vancomycin HCl 125 mg 04/24/19 18:00 04/29/19 12:13 Vancomycin Oral Solution GT 125 mg Q6HPO BAHMAN Administration Zinc Sulfate 220 mg 04/27/19 10:00 04/29/19 09:43 Orazinc - GT 220 mg DAILY BAHMAN Administration ASSESSMENT/PLAN: 79 y/o female with hx of CAD, Afib (on Eliquis), sick sinus syndrome (s/p PPM), DMII, HTN, COPD, remote history of GI bleed, colonic angiodysplasia, sigmoid diverticulosis, internal hemorrhoids, CVA (RUE/LE paralysis, non verbal), chronic respiratory failure (s/p trach-vent dependent), chronic stage 4 sacral ulcer, presenting from [facility] for T 102.3 and Afib with RVR with concern for septic shock with source of pna vs uti vs sacral ulcer. ICU course complicated with GI bleed s/p pRBC and now stable Neuro: -arouses to stimulus but does not respond or follow commands Cardio: -Afib with RVR s/p 10mg cardizem and 3L ivf in the ED -EKG: afib with rvr, no hilton/d -trop 0.13, 0.11, 0.69 -cards consulted; likely demand ischemia in setting of septic shock -recommending metop PO instead of iv prn when pressures tolerating; 200mg amio, eliquis 5mg bid -BNP 7435 -CVC and pressors for HDS support; maintain MAP>65 -currently on levophed Pulm: -trach and vent dependent with sats 100% -CXR: bibasilar pleural effusions with atelectasis vs infiltrate, L>R; slightly worsening vascular changes -empiric abx GI: -PEG in place -continuing feeds and tolerating well # GIB w/ blood per rectum and high BUN - 40mg pantoprazole BID - GI(DiGornio) consult: --suspect small bowel ectasias --in depth discussion with daughter regarding repeat colonoscopy and daughter states she will not pursue; will continue conservative GI bleed management HEME: # normocytic anemia --possibly 2/2 GIB - pRBC x2 - post-transfusion CBC stable Renal: -Cr stable -UA: turbid appearance with 3+leuks, bacteria and WBC -currently off ivf given edema -renal team following ID: -received empiric abx(vanc, zosyn, meropenem, levofloxacin, daptomycin) given previous sensitivities -BCx with MRSA -Cdif + -Shira DCd -PO vanc; IV vanc per levels Wound: -sacral decubitus debridement site, does not appear infected -daily wound care; frequent turns; offloading; santyl daily Dispo: ICU monitoring for pressor requirement HCP is daughter, however, after ED convo with daughter, she states she relinquishes authority to her father to make decision regarding code status. After discussion with Mr Laboy, states he would like full code Visit type - Emergency Visit Emergency Visit: No - New Patient This patient is new to me today: No - Critical Care Critical Care patient: Yes Total Critical Care Time (in minutes): 35 Critical Care Statement: The care of this patient involved high complexity decision making to prevent further life threatening deterioration of the patient 's condition and/or to evaluate & treat vital organ system(s) failure or risk of failure. ATTENDING PHYSICIAN STATEMENT I saw and evaluated the patient. I reviewed the resident's note and discussed the case with the resident. I agree with the resident's findings and plan as documented. SUBJECTIVE: OBJECTIVE: ASSESSMENT AND PLAN:
[2019-04-29] MEDS: ASCORBIC ACID 500 MG/5 ML UNIT DOSE CUP GT SCH (17:02)
[2019-04-29] MEDS: MULTIVIT-MINERALS ORAL LIQUID GT SCH (17:02)
[2019-04-29] MEDS: CHLORHEXIDINE GLUCONATE 4% CLEANSER FOR DECOLONIZATION TP SCH (21:11)
[2019-04-30] MEDS: METOPROLOL TARTRATE 5 MG/5 ML VIAL IVPUSH PRN (02:25)
[2019-04-30] MEDS: VANCOMYCIN 250 MG/5 ML ORAL SOLUTION GT SCH ×3 (06:29→18:11)
[2019-04-30] MEDS: INSULIN SLIDING SCALE (NOVOLOG) 1 VIAL SQ SCH ×4 (06:33→21:40)
[2019-04-30 06:59] LABS: BASO % 0.1 % (0-2.0); EOS % 3.4 % (0-4.5); HEMATOCRIT 27.7 % (32.4-45.2); HEMOGLOBIN 8.7 GM/dL (10.7-15.3); LYMPH % 6.7 % (8-40); MCHC 31.6 g/dl (32.0-36.0); MEAN CELL VOLUME 82.5 fl (80-96); MEAN PLT VOLUME 9.6 fl (7.5-11.1); MONO % 4.9 % (3.8-10.2); NEUT % 84.9 % (42.8-82.8); PLATELET COUNT 117 K/MM3 (134-434); RBC 3.36 M/mm3 (3.60-5.2); RDW 20.9 % (11.6-15.6); WHITE BLOOD COUNT 15.4 K/mm3 (4.0-10.0)
[2019-04-30 07:38] LABS: ALBUMIN 1.3 g/dl (3.4-5.0); BILIRUBIN,TOTAL 0.5 mg/dL (0.2-1); BLOOD UREA NITROGEN 42.6 mg/dL (7-18); CALCIUM 8.1 mg/dL (8.5-10.1); CREATININE 0.7 mg/dL (0.55-1.3); MAGNESIUM 2.1 mg/dL (1.8-2.4); PHOSPHOROUS 2.4 mg/dL (2.5-4.9); POTASSIUM 3.9 mmol/L (3.5-5.1); TOT PROT 4.8 g/dl (6.4-8.2)
--- NOTE | 2019-04-30 07:57 | PN ---
Progress Note, Physician - Current Medication List Current Medications: Active Medications Amino Acids (Prosource No Carb Liquid Pkt) 30 ml GT BID@0800,1730 [facility] Last Admin: 04/29/19 17:01 Dose: 30 ml Amiodarone HCl (Cordarone -) 200 mg PO DAILY [facility] Last Admin: 04/29/19 09:44 Dose: 200 mg Apixaban (Eliquis -) 5 mg PEG BID [facility] Last Admin: 04/29/19 21:10 Dose: 5 mg Ascorbic Acid (Vitamin C Oral Solution -) 250 mg GT DAILY [facility] Last Admin: 04/29/19 17:02 Dose: 250 mg Chlorhexidine Gluconate (Hibiclens For Decolonization -) 1 applic TP HS [facility] Last Admin: 04/29/19 21:11 Dose: 1 applic Collagenase (Santyl -) 1 applic TP DAILY [facility]; Protocol Last Admin: 04/29/19 09:44 Dose: 1 applic Norepinephrine Bitartrate 8, (000 mcg/ Dextrose) 500 mls @ 18.75 mls/hr IV TITR [facility]; Protocol Last Titration: 04/30/19 06:00 Dose: 1 mcg/min, 3.75 mls/hr Insulin Aspart (Novolog Vial Sliding Scale -) 1 vial SQ ACHS [facility]; Protocol Last Admin: 04/30/19 06:33 Dose: 6 units Metoprolol Tartrate (Lopressor Injection -) 5 mg IVPUSH Q4H PRN PRN Reason: TACHYCARDIA Last Admin: 04/30/19 02:25 Dose: 5 mg Multi-Ingredient Ointment (Zinc Oxide) 1 applic TP BID [facility] Last Admin: 04/29/19 21:11 Dose: 1 applic Multivitamins/Minerals (Certavite-Antioxidant Liquid) 15 ml GT DAILY [facility] Last Admin: 04/29/19 17:02 Dose: 15 ml Nystatin (Mycostatin Cream -) 1 applic TP BID [facility] Last Admin: 04/29/19 21:11 Dose: 1 applic Pantoprazole Sodium (Protonix Iv) 40 mg IVPUSH BID [facility] Last Admin: 04/29/19 21:10 Dose: 40 mg Vancomycin HCl (Vancomycin Oral Solution) 125 mg GT Q6HPO [facility] Last Admin: 04/30/19 06:29 Dose: 125 mg Zinc Sulfate (Orazinc -) 220 mg GT DAILY [facility] Last Admin: 04/29/19 09:43 Dose: 220 mg - Objective Vital Signs: Vital Signs Temperature 98.4 F 04/30/19 06:00 Pulse Rate 93 H 04/30/19 06:00 Respiratory Rate 22 H 04/30/19 06:00 Blood Pressure 128/53 L 04/30/19 06:00 O2 Sat by Pulse Oximetry (%) 97 04/29/19 20:54 Cardiovascular: Yes: S1, S2 Respiratory: Yes: Mechanically Ventilated Gastrointestinal: Yes: Normal Bowel Sounds, Soft Labs: CBC, BMP 04/30/19 05:15 04/30/19 05:15 INR, PTT INR 1.11 (0.83-1.09) H 04/24/19 06:00 Problem List - Problems (1) CONOR (acute kidney injury) Code(s): N17.9 - ACUTE KIDNEY FAILURE, UNSPECIFIED (2) Anemia Code(s): D64.9 - ANEMIA, UNSPECIFIED Qualifiers: Iron deficiency anemia type: chronic blood loss (3) Atrial fibrillation with RVR Code(s): I48.91 - UNSPECIFIED ATRIAL FIBRILLATION (4) Sepsis Code(s): A41.9 - SEPSIS, UNSPECIFIED ORGANISM Qualifiers: Sepsis type: sepsis due to unspecified organism Sepsis acute organ dysfunction status: without acute organ dysfunction Qualified Code(s): A41.9 - Sepsis, unspecified organism Assessment/Plan - Problems (1) CONOR (acute kidney injury) Assessment/Plan: -Cr normalized -Nephrology on board Problems reviewed: Yes Code(s): N17.9 - ACUTE KIDNEY FAILURE, UNSPECIFIED (2) Abnormal liver function tests Assessment/Plan: -chronic, asymptomatic -GI on board -Avoid hepatotoxic drugs -Statin discontinued -Pt refuses colonoscopy at this time Problems reviewed: Yes Code(s): R94.5 - ABNORMAL RESULTS OF LIVER FUNCTION STUDIES (3) Anemia Assessment/Plan: -Previously guaiac + -On AC for chronic afib, benefit>risks -H/H stable -previously low in Iron % -repeat Iron studies, B 12 and thyroid -monitor trend -Transfuse if Hg<7.0 to avoid fluid overload, since pt is chronically anemic Problems reviewed: Yes Code(s): D64.9 - ANEMIA, UNSPECIFIED (4) Atrial fibrillation with RVR Assessment/Plan: -Chronic -rate controlled -Continue Eliquis 5 mg po BID Problems reviewed: Yes Code(s): I48.91 - UNSPECIFIED ATRIAL FIBRILLATION (5) Sacral decubitus ulcer, stage III Assessment/Plan: -Local wound care -Offloading -T&P Q2H -On prosource + Multivitamin Problems reviewed: Yes Code(s): L89.153 - PRESSURE ULCER OF SACRAL REGION, STAGE 3 (6) Septic shock Assessment/Plan: -ID on board -Cultures reviewed -IV Vanco -Afebrile -leukocytes improved Problems reviewed: Yes Code(s): A41.9 - SEPSIS, UNSPECIFIED ORGANISM; R65.21 - SEVERE SEPSIS WITH SEPTIC SHOCK (7) C. difficile diarrhea Assessment/Plan: -PO Vancomycin -Contact isolation Problems reviewed: Yes Code(s): A04.72 - ENTEROCOLITIS D/T CLOSTRIDIUM DIFFICILE, NOT SPCF RECUR (8) Elevated troponin I level Assessment/Plan: -2/2 to demand ischemia in setting of septic shock Problems reviewed: Yes Code(s): R74.8 - ABNORMAL LEVELS OF OTHER SERUM ENZYMES (9) GIB (gastrointestinal bleeding) Problems reviewed: Yes Code(s): K92.2 - GASTROINTESTINAL HEMORRHAGE, UNSPECIFIED Qualifiers: GI bleed type/associated pathology: unspecified gastrointestinal hemorrhage type Qualified Code(s): K92.2 - Gastrointestinal hemorrhage, unspecified (10) Functional quadriplegia Code(s): R53.2 - FUNCTIONAL QUADRIPLEGIA
[2019-04-30] MEDS ORDERED: POTASSIUM PHOSPHATE 15 MM in SODIUM CHLORIDE 250 ML IVPB ONE (08:45)
--- NOTE | 2019-04-30 10:30 | PN ---
Physical Exam: SUBJECTIVE: Patient seen and examined. No acute events overnight. OBJECTIVE: Vital Signs Period Temp Pulse Resp BP Sys/Okeefe Pulse Ox Last 24 Hr 97.4 F-98.4 F 64-173 16-30 93-142/35-66 97-98 GENERAL: Asleep but arousable. Not following commands. HEAD: Normal with no signs of trauma. EYES: PERRL, extraocular movements intact, sclera anicteric, conjunctiva clear. No ptosis. ENT: Ears normal, nares patent, oropharynx clear without exudates, moist mucous membranes. NECK: Trach in place without evidence of infection, normal appearing borders LUNGS: Vented, coarse breath sounds in all lung waller, no wheezes, no crackles , no accessory muscle use. HEART: Regular rate and rhythm, S1, S2 without murmur, rub or gallop. ABDOMEN: Soft, nontender, nondistended, normoactive bowel sounds, no guarding, no rebound, no hepatosplenomegaly, no masses. PEG in place EXTREMITIES: 2+ pulses, warm, well-perfused, no edema. NEUROLOGICAL: Limited due to mental status SKIN: sacral debridement wound ~11x8cm in diameter with depth to the bone, fibrinous tissue at the bases with no evidence of bleeding or purulence Laboratory Results - last 24 hr CBC, BMP 04/30/19 05:15 04/30/19 05:15 Active Medications Amino Acids (Prosource No Carb Liquid Pkt) 30 ml GT BID@0800,1730 [facility] Last Admin: 04/29/19 17:01 Dose: 30 ml Amiodarone HCl (Cordarone -) 200 mg PO DAILY [facility] Last Admin: 04/29/19 09:44 Dose: 200 mg Apixaban (Eliquis -) 5 mg PEG BID [facility] Last Admin: 04/29/19 21:10 Dose: 5 mg Ascorbic Acid (Vitamin C Oral Solution -) 250 mg GT DAILY [facility] Last Admin: 04/29/19 17:02 Dose: 250 mg Chlorhexidine Gluconate (Hibiclens For Decolonization -) 1 applic TP HS [facility] Last Admin: 04/29/19 21:11 Dose: 1 applic Collagenase (Santyl -) 1 applic TP DAILY [facility]; Protocol Last Admin: 04/29/19 09:44 Dose: 1 applic Norepinephrine Bitartrate 8, (000 mcg/ Dextrose) 500 mls @ 18.75 mls/hr IV TITR [facility]; Protocol Last Titration: 04/30/19 06:00 Dose: 1 mcg/min, 3.75 mls/hr Potassium Phosphate 15 mm/ (Sodium Chloride) 255 mls @ 62.5 mls/hr IVPB ONCE ONE Stop: 04/30/19 12:49 Insulin Aspart (Novolog Vial Sliding Scale -) 1 vial SQ ACHS [facility]; Protocol Last Admin: 04/30/19 06:33 Dose: 6 units Metoprolol Tartrate (Lopressor Injection -) 5 mg IVPUSH Q4H PRN PRN Reason: TACHYCARDIA Last Admin: 04/30/19 02:25 Dose: 5 mg Multi-Ingredient Ointment (Zinc Oxide) 1 applic TP BID [facility] Last Admin: 04/29/19 21:11 Dose: 1 applic Multivitamins/Minerals (Certavite-Antioxidant Liquid) 15 ml GT DAILY [facility] Last Admin: 04/29/19 17:02 Dose: 15 ml Nystatin (Mycostatin Cream -) 1 applic TP BID [facility] Last Admin: 04/29/19 21:11 Dose: 1 applic Pantoprazole Sodium (Protonix Iv) 40 mg IVPUSH BID [facility] Last Admin: 04/29/19 21:10 Dose: 40 mg Vancomycin HCl (Vancomycin Oral Solution) 125 mg GT Q6HPO [facility] Last Admin: 04/30/19 06:29 Dose: 125 mg Zinc Sulfate (Orazinc -) 220 mg GT DAILY [facility] Last Admin: 04/29/19 09:43 Dose: 220 mg ASSESSMENT/PLAN: Patient is a 79 year olf female with PMH of CAD, Afib (on Eliquis), sick sinus syndrome (s/p PPM), DMII, HTN, COPD, remote history of GI bleed, colonic angiodysplasia, sigmoid diverticulosis, internal hemorrhoids, CVA (RUE/LE paralysis, non verbal), chronic respiratory failure (s/p trach-vent dependent), chronic stage 4 sacral ulcer, presenting from [facility] for T 102.3 and Afib with RVR with concern for septic shock with source of pna vs uti vs sacral ulcer. ICU course complicated with GI bleed s/p pRBC and now stable Neuro -Arousable to stimulus but does not respond or follow commands Cardiovascular -Afib with RVR s/p 10mg cardizem and 3L ivf in the ED -EKG: Afib with rvr, no hilton/d -Trop 0.13, 0.11, 0.69, likely demand ischemia in setting of septic shock -Cardio following (Dr. Gaines): cont amiodarone 200mg daily and eliquis 5mg BID -BNP 7435 -Currently on 1 of levophed, will wean as tolerated -Remove and replace central line today -Closely monitor hemodynamics Pulmonary -Trach and vent dependent with sats 100% -CXR (04/30/19): congestive and infiltrative changes -Empiric abx GI -PEG in place, cont feeds -S/p GI bleed w/ blood per rectum and high BUN -40mg pantoprazole BID -GI following (Dr. García): suspect small bowel ectasias >In depth discussion w/daughter regarding repeat colonoscopy and daughter states she will not pursue; will continue conservative GI bleed management Heme -Normocytic anemia - possibly 2/2 GIB -Received pRBC x2 -Post-transfusion CBC stable -Cont to monitor CBC daily Renal -Cr stable -UA: turbid appearance with 3+leuks, bacteria and WBC -D/c IVF given edema -Nephro following ID -Received empiric abx (vanc, zosyn, meropenem, levofloxacin, daptomycin) given previous sensitivities -Blood cx: MRSA -Cdif + -Meropenem d/c'ed -Cont PO vanc; IV vanc per levels Wound -sacral decubitus debridement site, does not appear infected -daily wound care; frequent turns; offloading; santyl daily Dispo: ICU monitoring for pressor requirement HCP is daughter, however, after ED convo with daughter, she states she relinquishes authority to her father to make decision regarding code status. After discussion with Mr Laboy, states he would like full code Visit type - Emergency Visit Emergency Visit: No - New Patient This patient is new to me today: No - Critical Care Critical Care patient: Yes Total Critical Care Time (in minutes): 45 Critical Care Statement: The care of this patient involved high complexity decision making to prevent further life threatening deterioration of the patient 's condition and/or to evaluate & treat vital organ system(s) failure or risk of failure. ATTENDING PHYSICIAN STATEMENT I saw and evaluated the patient. I reviewed the resident's note and discussed the case with the resident. I agree with the resident's findings and plan as documented. SUBJECTIVE: OBJECTIVE: ASSESSMENT AND PLAN:
[2019-04-30] MEDS: AMINO ACIDS/PROTEIN HYDROLYS 30 ML LIQUID.PKT GT SCH ×2 (10:44→18:11)
--- NOTE | 2019-04-30 10:52 | PN ---
Progress Note, Physician History of Present Illness: Remains on low-dose pressors. 40% PEEP 5 - Current Medication List Current Medications: Active Medications Amino Acids (Prosource No Carb Liquid Pkt) 30 ml GT BID@0800,1730 [facility] Last Admin: 04/29/19 17:01 Dose: 30 ml Amiodarone HCl (Cordarone -) 200 mg PO DAILY [facility] Last Admin: 04/29/19 09:44 Dose: 200 mg Apixaban (Eliquis -) 5 mg PEG BID [facility] Last Admin: 04/29/19 21:10 Dose: 5 mg Ascorbic Acid (Vitamin C Oral Solution -) 250 mg GT DAILY [facility] Last Admin: 04/29/19 17:02 Dose: 250 mg Chlorhexidine Gluconate (Hibiclens For Decolonization -) 1 applic TP HS [facility] Last Admin: 04/29/19 21:11 Dose: 1 applic Collagenase (Santyl -) 1 applic TP DAILY [facility]; Protocol Last Admin: 04/29/19 09:44 Dose: 1 applic Norepinephrine Bitartrate 8, (000 mcg/ Dextrose) 500 mls @ 18.75 mls/hr IV TITR [facility]; Protocol Last Titration: 04/30/19 06:00 Dose: 1 mcg/min, 3.75 mls/hr Potassium Phosphate 15 mm/ (Sodium Chloride) 255 mls @ 62.5 mls/hr IVPB ONCE ONE Stop: 04/30/19 12:49 Insulin Aspart (Novolog Vial Sliding Scale -) 1 vial SQ ACHS [facility]; Protocol Last Admin: 04/30/19 06:33 Dose: 6 units Metoprolol Tartrate (Lopressor Injection -) 5 mg IVPUSH Q4H PRN PRN Reason: TACHYCARDIA Last Admin: 04/30/19 02:25 Dose: 5 mg Multi-Ingredient Ointment (Zinc Oxide) 1 applic TP BID [facility] Last Admin: 04/29/19 21:11 Dose: 1 applic Multivitamins/Minerals (Certavite-Antioxidant Liquid) 15 ml GT DAILY [facility] Last Admin: 04/29/19 17:02 Dose: 15 ml Nystatin (Mycostatin Cream -) 1 applic TP BID [facility] Last Admin: 04/29/19 21:11 Dose: 1 applic Pantoprazole Sodium (Protonix Iv) 40 mg IVPUSH BID [facility] Last Admin: 04/29/19 21:10 Dose: 40 mg Vancomycin HCl (Vancomycin Oral Solution) 125 mg GT Q6HPO [facility] Last Admin: 04/30/19 06:29 Dose: 125 mg Zinc Sulfate (Orazinc -) 220 mg GT DAILY [facility] Last Admin: 04/29/19 09:43 Dose: 220 mg - Objective Vital Signs: Vital Signs Temperature 98.4 F 04/30/19 06:00 Pulse Rate 117 H 04/30/19 08:23 Respiratory Rate 25 H 04/30/19 08:23 Blood Pressure 128/53 L 04/30/19 06:00 O2 Sat by Pulse Oximetry (%) 98 04/30/19 08:23 Constitutional: Yes: No Distress, Calm HENT: Yes: Other (Tracheostomy) Cardiovascular: Yes: Regular Rate and Rhythm Respiratory: Yes: Mechanically Ventilated, Rhonchi Gastrointestinal: Yes: Normal Bowel Sounds, Soft, Other (PEG in place) Edema: Yes Edema: LLE: 1+, RLE: 1+ Labs: CBC, BMP 04/30/19 05:15 04/30/19 05:15 INR, PTT INR 1.11 (0.83-1.09) H 04/24/19 06:00 - ....Imaging Chest X-ray: Report Reviewed (Congestion and pleural effusions) EKG: Report Reviewed (Tele: PAF with RVR ->SR) Problem List - Problems (1) Anemia Code(s): D64.9 - ANEMIA, UNSPECIFIED Qualifiers: Iron deficiency anemia type: chronic blood loss (2) C. difficile diarrhea Code(s): A04.72 - ENTEROCOLITIS D/T CLOSTRIDIUM DIFFICILE, NOT SPCF RECUR (3) Septic shock Code(s): A41.9 - SEPSIS, UNSPECIFIED ORGANISM; R65.21 - SEVERE SEPSIS WITH SEPTIC SHOCK (4) Stage 4 skin ulcer of sacral region Code(s): L98.429 - NON-PRESSURE CHRONIC ULCER OF BACK WITH UNSPECIFIED SEVERITY (5) A-fib Code(s): I48.91 - UNSPECIFIED ATRIAL FIBRILLATION Qualifiers: Atrial fibrillation type: longstanding persistent Qualified Code(s): I48.11 - Longstanding persistent atrial fibrillation (6) Angiodysplasia of colon with hemorrhage Code(s): K55.21 - ANGIODYSPLASIA OF COLON WITH HEMORRHAGE (7) CAD (coronary artery disease) Code(s): I25.10 - ATHSCL HEART DISEASE OF [place] CORONARY ARTERY W/O ANG PCTRS Qualifiers: Coronary Disease-Associated Artery/Lesion type: [place] artery [place] vs. transplanted heart: [place] heart Associated angina: without angina Qualified Code(s): I25.10 - Atherosclerotic heart disease of [place] coronary artery without angina pectoris (8) CVA (cerebral vascular accident) Code(s): I63.9 - CEREBRAL INFARCTION, UNSPECIFIED Qualifiers: CVA mechanism: embolism (9) Demand ischemia Code(s): I24.8 - OTHER FORMS OF ACUTE ISCHEMIC HEART DISEASE (10) Diabetes mellitus Code(s): E11.9 - TYPE 2 DIABETES MELLITUS WITHOUT COMPLICATIONS Qualifiers: Diabetes mellitus type: type 2 Diabetes mellitus correction insulin use: with correction use Diabetes mellitus complication status: with hyperglycemia Qualified Code(s): E11.65 - Type 2 diabetes mellitus with hyperglycemia; 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 (11) Diastolic dysfunction Code(s): I51.89 - OTHER ILL-DEFINED HEART DISEASES (12) Elevated troponin I level Code(s): R74.8 - ABNORMAL LEVELS OF OTHER SERUM ENZYMES (13) GIB (gastrointestinal bleeding) Code(s): K92.2 - GASTROINTESTINAL HEMORRHAGE, UNSPECIFIED Qualifiers: GI bleed type/associated pathology: unspecified gastrointestinal hemorrhage type Qualified Code(s): K92.2 - Gastrointestinal hemorrhage, unspecified (14) Hemiparesis and other late effects of cerebrovascular accident Code(s): I69.359 - HEMIPLGA FOLLOWING CEREBRAL INFARCTION AFFECTING UNSP SIDE; I69.398 - OTHER SEQUELAE OF CEREBRAL INFARCTION (15) S/P mitral valve repair Code(s): Z98.890 - OTHER SPECIFIED POSTPROCEDURAL STATES (16) Ventilator dependent Code(s): Z99.11 - DEPENDENCE ON RESPIRATOR [VENTILATOR] STATUS Assessment/Plan ASSESSMENT: 1. UTI, PNA, c. diff colitis, sacral decub infxn, septic shock, clinically resolving 2. CAD with evidence of demand ischemic injury angina pectoris 3. Diastolic LV dysfunction with clinical class 0 NYHA classification LV failure 4. Paroxysmal atrial fibrillation with RVR currently in sinus rhythm- atrial pacing [id number] score of 9 on DOAC's/Eliquis 5. Sick sinus syndrome post PPM 6. Post mitral valve repair 7. History of CVA 8. Chronic respiratory failure on mechanical ventilation post tracheostomy 9. HTN 10. Hypercholesterolemia 11. COPD 12. Hypernatremia, improving 13. Hypokalemia 14. Pre-renal azotemia 15. Acute blood loss anemia with history of gastrointestinal bleed 16. Sacral decubitus ulcer PLAN: 1. Antibiotics with f/u C&S as per the primary team 2. Titrate pressors to maintain MAP > 65 3. Resume Lopressor once hemodynamics stabilize 3. Continue Amiodarone 200 mg daily 4. Add ACEI or ARBS unless contraindicated, hemodynamics permitting 5. Continue Eliquis 5 bid with close monitoring of Hg, transfuse to maintain Hg equal or > 8.0, protonix 6. No intervention indicated for the above noted elevated Troponin I level consistent with demand ischemia 7. Correction of Hypernatremia/pre-renal azotemia, free water supplementation 8. Correction of Hypokalemia
[2019-04-30] MEDS ORDERED: PT OWN MED DRAWER 7, Y5N ONE ×2 (11:02→12:51)
[2019-04-30 11:15] LABS: ANISOCYTOSIS 1+; MACROCYTOSIS 0; OVALOCYTE 1+; PLATELET ESTIMATE DECREASED; TEAR DROP CELLS 1+
[2019-04-30] MEDS: AMIODARONE HCL 200 MG TABLET PO SCH (11:45)
[2019-04-30] MEDS: PANTOPRAZOLE SODIUM 40 MG VIAL IVPUSH SCH ×2 (11:45→21:41)
[2019-04-30] MEDS: MULTIVIT-MINERALS ORAL LIQUID GT SCH (11:45)
[2019-04-30] MEDS: APIXABAN 5 MG TABLET PEG SCH ×2 (11:45→21:41)
[2019-04-30] MEDS: ZINC SULFATE 220 MG CAPSULE (FP) GT SCH (11:45)
[2019-04-30] MEDS: ZINC OXIDE 20% TOPICAL OINTMENT 30 GM TUBE TP SCH ×2 (11:46→21:43)
[2019-04-30] MEDS: COLLAGENASE CLOSTRIDIUM HIST. 30 GRAMS TUBE TP SCH (12:00)
[2019-04-30] MEDS: NYSTATIN 100,000 UNIT/GM TOPICAL CREAM 15 GM TUBE TP SCH ×2 (12:45→21:42)
--- NOTE | 2019-04-30 13:14 | PN ---
Teaching Attending Note Name of Resident: Siena Charles ATTENDING PHYSICIAN STATEMENT I saw and evaluated the patient. I reviewed the resident's note and discussed the case with the resident. I agree with the resident's findings and plan as documented. SUBJECTIVE: Patient seen and examined in the ICU. Vented, poorly responsive. Hemodynamics still unstable requiring NE. OBJECTIVE: Intake & Output 04/27/19 04/28/19 04/29/19 04/30/19 23:59 23:59 23:59 23:59 Intake Total 2560 2704.4 2671 Output Total 1179 389 2043 Balance 1160 1754.4 1271 Weight 166 lb 6 oz 178 lb 12.718 oz 180 lb 14.4 oz 179 lb 11.2 oz Last Vital Signs Temp Pulse Resp BP Pulse Ox 98.4 F 65 20 118/39 L 98 04/30/19 06:00 04/30/19 13:04 04/30/19 13:04 04/30/19 13:04 04/30/19 11:00 Active Medications Amino Acids (Prosource No Carb Liquid Pkt) 30 ml GT BID@0800,1730 [facility] Last Admin: 04/30/19 10:44 Dose: 30 ml Amiodarone HCl (Cordarone -) 200 mg PO DAILY [facility] Last Admin: 04/30/19 11:45 Dose: 200 mg Apixaban (Eliquis -) 5 mg PEG BID [facility] Last Admin: 04/30/19 11:45 Dose: 5 mg Ascorbic Acid (Vitamin C Oral Solution -) 250 mg GT DAILY [facility] Last Admin: 04/29/19 17:02 Dose: 250 mg Chlorhexidine Gluconate (Hibiclens For Decolonization -) 1 applic TP HS [facility] Last Admin: 04/29/19 21:11 Dose: 1 applic Collagenase (Santyl -) 1 applic TP DAILY [facility]; Protocol Last Admin: 04/30/19 12:00 Dose: 1 applic Norepinephrine Bitartrate 8, (000 mcg/ Dextrose) 500 mls @ 18.75 mls/hr IV TITR [facility]; Protocol Last Titration: 04/30/19 06:00 Dose: 1 mcg/min, 3.75 mls/hr Insulin Aspart (Novolog Vial Sliding Scale -) 1 vial SQ ACHS [facility]; Protocol Last Admin: 04/30/19 06:33 Dose: 6 units Metoprolol Tartrate (Lopressor Injection -) 5 mg IVPUSH Q4H PRN PRN Reason: TACHYCARDIA Last Admin: 04/30/19 02:25 Dose: 5 mg Multi-Ingredient Ointment (Zinc Oxide) 1 applic TP BID [facility] Last Admin: 04/30/19 11:46 Dose: 1 applic Multivitamins/Minerals (Certavite-Antioxidant Liquid) 15 ml GT DAILY [facility] Last Admin: 04/30/19 11:45 Dose: 15 ml Nystatin (Mycostatin Cream -) 1 applic TP BID [facility] Last Admin: 04/30/19 12:45 Dose: 1 applic Pantoprazole Sodium (Protonix Iv) 40 mg IVPUSH BID [facility] Last Admin: 04/30/19 11:45 Dose: 40 mg Vancomycin HCl (Vancomycin Oral Solution) 125 mg GT Q6HPO [facility] Last Admin: 04/30/19 06:29 Dose: 125 mg Zinc Sulfate (Orazinc -) 220 mg GT DAILY [facility] Last Admin: 04/30/19 11:45 Dose: 220 mg Gen: vented, poorly responsive Heart: irregular Lung: scattered rhonchi Abd: soft, nontender Ext: + edema Back: stage IV sacral ulcer with granulation tissue Laboratory Results - last 24 hr 04/29/19 04/29/19 04/29/19 05:10 17:13 21:05 WBC RBC Hgb Hct MCV MCH MCHC RDW Plt Count MPV Absolute Neuts (auto) Neutrophils % Lymphocytes % Monocytes % Eosinophils % Basophils % Nucleated RBC % Hypochromia Platelet Estimate Platelet Comment Polychromasia Poikilocytosis Anisocytosis Microcytosis Macrocytosis Tear Drop Cells Ovalocytes Stomatocytes Acanthocytes (Spur) Sodium Potassium Chloride Carbon Dioxide Anion Gap BUN Creatinine Est GFR (CKD-EPI)AfAm Est GFR (CKD-EPI)NonAf POC Glucometer 363 276 Random Glucose Calcium Phosphorus Magnesium Iron 26 L TIBC 194 L Iron Saturation 13 L Unsaturated IBC 168 L Total Bilirubin AST ALT Alkaline Phosphatase Total Protein Albumin Vitamin B12 1548 H Free T4 Random Vancomycin 04/30/19 04/30/19 04/30/19 05:15 05:15 05:15 WBC 15.4 H RBC 3.36 L Hgb 8.7 L Hct 27.7 L MCV 82.5 MCH 26.0 MCHC 31.6 L RDW 20.9 H Plt Count 117 L MPV 9.6 Absolute Neuts (auto) 13.1 H Neutrophils % 84.9 H Lymphocytes % 6.7 L Monocytes % 4.9 Eosinophils % 3.4 Basophils % 0.1 Nucleated RBC % 0 Hypochromia 0 Platelet Estimate Decreased Platelet Comment Present Polychromasia 1+ Poikilocytosis 1+ Anisocytosis 1+ Microcytosis 1+ Macrocytosis 0 Tear Drop Cells 1+ Ovalocytes 1+ Stomatocytes 1+ Acanthocytes (Spur) 1+ Sodium 147 H Potassium 3.9 Chloride 118 H Carbon Dioxide 24 Anion Gap 5 L BUN 42.6 H Creatinine 0.7 Est GFR (CKD-EPI)AfAm 96.86 Est GFR (CKD-EPI)NonAf 83.57 POC Glucometer Random Glucose 265 H Calcium 8.1 L Phosphorus 2.4 L Magnesium 2.1 Iron TIBC Iron Saturation Unsaturated IBC Total Bilirubin 0.5 AST 29 ALT 35 Alkaline Phosphatase 270 H Total Protein 4.8 L Albumin 1.3 L Vitamin B12 Free T4 1.20 Random Vancomycin 22.7 04/30/19 05:42 WBC RBC Hgb Hct MCV MCH MCHC RDW Plt Count MPV Absolute Neuts (auto) Neutrophils % Lymphocytes % Monocytes % Eosinophils % Basophils % Nucleated RBC % Hypochromia Platelet Estimate Platelet Comment Polychromasia Poikilocytosis Anisocytosis Microcytosis Macrocytosis Tear Drop Cells Ovalocytes Stomatocytes Acanthocytes (Spur) Sodium Potassium Chloride Carbon Dioxide Anion Gap BUN Creatinine Est GFR (CKD-EPI)AfAm Est GFR (CKD-EPI)NonAf POC Glucometer 257 Random Glucose Calcium Phosphorus Magnesium Iron TIBC Iron Saturation Unsaturated IBC Total Bilirubin AST ALT Alkaline Phosphatase Total Protein Albumin Vitamin B12 Free T4 Random Vancomycin ASSESSMENT AND PLAN: Septic Shock UTI Pneumonia Suspected Sacral Decubitus Ulcer Infection GI Bleed likely Upper Acute Blood Loss Anemia Atrial Fibrillation with RVR CAD COPD HTN DM h/o CVA - Pressors to maintain MAP > 65 - ABX per ID - PPI - Change TLC today - Normal transfusion thresholds - rate control - continue volume assist control - DVT/GI prophylaxis - Requires ICU monitoring for pressors Dr Stover Critical care time spent in reviewing chart, evaluating patient and formulating plan - 36 minutes.
[2019-04-30] MEDS: ASCORBIC ACID 500 MG/5 ML UNIT DOSE CUP GT SCH (15:41)
--- NOTE | 2019-04-30 16:21 | PROC ---
Central Line Insertion Indication: Vasopressor Risks and Benefits Explained: Yes Consent on Chart: Yes Central Line: Triple Lumen Catheter Anesthesia: 1% Lidocaine Sterile Technique: Yes Ultrasound Guided Assistance: Yes Position: Right Internal Jugular Post Insertion: Yes: Chest X-Ray Ordered Sterile Dressing Applied: Yes
--- NOTE | 2019-04-30 20:35 | PN ---
Progress Note, Physician History of Present Illness: AWAKE EYES OPEN AFEBRILE BC MRSA VANCO LEVEL NOTED C DIFF+ URINE, WOUND C/S MIXED - Current Medication List Current Medications: Active Medications Amino Acids (Prosource No Carb Liquid Pkt) 30 ml GT BID@0800,1730 [facility] Last Admin: 04/30/19 18:11 Dose: 30 ml Amiodarone HCl (Cordarone -) 200 mg PO DAILY [facility] Last Admin: 04/30/19 11:45 Dose: 200 mg Apixaban (Eliquis -) 5 mg PEG BID [facility] Last Admin: 04/30/19 11:45 Dose: 5 mg Ascorbic Acid (Vitamin C Oral Solution -) 250 mg GT DAILY [facility] Last Admin: 04/30/19 15:41 Dose: 250 mg Chlorhexidine Gluconate (Hibiclens For Decolonization -) 1 applic TP HS [facility] Last Admin: 04/29/19 21:11 Dose: 1 applic Collagenase (Santyl -) 1 applic TP DAILY [facility]; Protocol Last Admin: 04/30/19 12:00 Dose: 1 applic Norepinephrine Bitartrate 8, (000 mcg/ Dextrose) 500 mls @ 18.75 mls/hr IV TITR [facility]; Protocol Last Titration: 04/30/19 15:42 Dose: 2 mcg/min, 7.5 mls/hr Insulin Aspart (Novolog Vial Sliding Scale -) 1 vial SQ ACHS [facility]; Protocol Last Admin: 04/30/19 18:11 Dose: 6 units Metoprolol Tartrate (Lopressor Injection -) 5 mg IVPUSH Q4H PRN PRN Reason: TACHYCARDIA Last Admin: 04/30/19 02:25 Dose: 5 mg Multi-Ingredient Ointment (Zinc Oxide) 1 applic TP BID [facility] Last Admin: 04/30/19 11:46 Dose: 1 applic Multivitamins/Minerals (Certavite-Antioxidant Liquid) 15 ml GT DAILY [facility] Last Admin: 04/30/19 11:45 Dose: 15 ml Nystatin (Mycostatin Cream -) 1 applic TP BID [facility] Last Admin: 04/30/19 12:45 Dose: 1 applic Pantoprazole Sodium (Protonix Iv) 40 mg IVPUSH BID [facility] Last Admin: 04/30/19 11:45 Dose: 40 mg Vancomycin HCl (Vancomycin Oral Solution) 125 mg GT Q6HPO [facility] Last Admin: 04/30/19 18:11 Dose: 125 mg Zinc Sulfate (Orazinc -) 220 mg GT DAILY [facility] Last Admin: 04/30/19 11:45 Dose: 220 mg - Objective Vital Signs: Vital Signs Temperature 98.4 F 04/30/19 06:00 Pulse Rate 66 04/30/19 18:12 Respiratory Rate 16 04/30/19 19:36 Blood Pressure 141/49 L 04/30/19 18:12 O2 Sat by Pulse Oximetry (%) 98 04/30/19 19:36 Constitutional: Yes: No Distress Cardiovascular: Yes: Regular Rate and Rhythm, S1, S2 Respiratory: Yes: Mechanically Ventilated Gastrointestinal: Yes: Normal Bowel Sounds, Soft Labs: CBC, BMP 04/30/19 05:15 04/30/19 05:15 INR, PTT INR 1.11 (0.83-1.09) H 04/24/19 06:00 Assessment/Plan SEPSIS/ SEPTIC SHOCK MRSA BACTEREMIA + C DIFF CHRONIC RESP FAILURE ANEMIA AZOTEMIA HX MDRO CONTINUE VANCO PER LEVELS VANCO VIA GT CONTACT PRECAUTIONS
[2019-04-30] MEDS: CHLORHEXIDINE GLUCONATE 4% CLEANSER FOR DECOLONIZATION TP SCH (21:40)
[2019-05-01] MEDS: VANCOMYCIN 250 MG/5 ML ORAL SOLUTION GT SCH ×5 (01:22→23:36)
[2019-05-01] MEDS: INSULIN SLIDING SCALE (NOVOLOG) 1 VIAL SQ SCH ×4 (06:08→22:27)
[2019-05-01 06:36] LABS: BASO % 0.4 % (0-2.0); EOS % 4.2 % (0-4.5); HEMATOCRIT 26.1 % (32.4-45.2); HEMOGLOBIN 8.3 GM/dL (10.7-15.3); LYMPH % 9.9 % (8-40); MCH 26.6 pg (25.7-33.7); MCHC 31.8 g/dl (32.0-36.0); MEAN CELL VOLUME 83.4 fl (80-96); MEAN PLT VOLUME 9.6 fl (7.5-11.1); MONO % 4.5 % (3.8-10.2); PLATELET COUNT 128 K/MM3 (134-434); RBC 3.13 M/mm3 (3.60-5.2); RDW 21.3 % (11.6-15.6); WHITE BLOOD COUNT 13.1 K/mm3 (4.0-10.0)
[2019-05-01 06:58] LABS: ALBUMIN 1.2 g/dl (3.4-5.0); BLOOD UREA NITROGEN 42.5 mg/dL (7-18); CALCIUM 7.5 mg/dL (8.5-10.1); CREATININE 0.7 mg/dL (0.55-1.3); PHOSPHOROUS 2.9 mg/dL (2.5-4.9); TOT PROT 4.8 g/dl (6.4-8.2)
--- NOTE | 2019-05-01 08:20 | PN ---
Progress Note, Physician - Current Medication List Current Medications: Active Medications Amino Acids (Prosource No Carb Liquid Pkt) 30 ml GT BID@0800,1730 [facility] Last Admin: 04/30/19 18:11 Dose: 30 ml Amiodarone HCl (Cordarone -) 200 mg PO DAILY [facility] Last Admin: 04/30/19 11:45 Dose: 200 mg Apixaban (Eliquis -) 5 mg PEG BID [facility] Last Admin: 04/30/19 21:41 Dose: 5 mg Ascorbic Acid (Vitamin C Oral Solution -) 250 mg GT DAILY [facility] Last Admin: 04/30/19 15:41 Dose: 250 mg Chlorhexidine Gluconate (Hibiclens For Decolonization -) 1 applic TP HS [facility] Last Admin: 04/30/19 21:40 Dose: 1 applic Collagenase (Santyl -) 1 applic TP DAILY [facility]; Protocol Last Admin: 04/30/19 12:00 Dose: 1 applic Norepinephrine Bitartrate 8, (000 mcg/ Dextrose) 500 mls @ 18.75 mls/hr IV TITR [facility]; Protocol Last Titration: 04/30/19 19:00 Dose: 2 mcg/min, 7.5 mls/hr Insulin Aspart (Novolog Vial Sliding Scale -) 1 vial SQ ACHS [facility]; Protocol Last Admin: 05/01/19 06:08 Dose: 8 units Metoprolol Tartrate (Lopressor Injection -) 5 mg IVPUSH Q4H PRN PRN Reason: TACHYCARDIA Last Admin: 04/30/19 02:25 Dose: 5 mg Multi-Ingredient Ointment (Zinc Oxide) 1 applic TP BID [facility] Last Admin: 04/30/19 21:43 Dose: 1 applic Multivitamins/Minerals (Certavite-Antioxidant Liquid) 15 ml GT DAILY [facility] Last Admin: 04/30/19 11:45 Dose: 15 ml Nystatin (Mycostatin Cream -) 1 applic TP BID [facility] Last Admin: 04/30/19 21:42 Dose: 1 applic Pantoprazole Sodium (Protonix Iv) 40 mg IVPUSH BID [facility] Last Admin: 04/30/19 21:41 Dose: 40 mg Vancomycin HCl (Vancomycin Oral Solution) 125 mg GT Q6HPO [facility] Last Admin: 05/01/19 06:09 Dose: 125 mg Zinc Sulfate (Orazinc -) 220 mg GT DAILY [facility] Last Admin: 04/30/19 11:45 Dose: 220 mg - Objective Vital Signs: Vital Signs Temperature 98.3 F 05/01/19 06:00 Pulse Rate 71 05/01/19 06:00 Respiratory Rate 19 05/01/19 06:00 Blood Pressure 130/45 L 05/01/19 06:00 O2 Sat by Pulse Oximetry (%) 98 04/30/19 19:36 Cardiovascular: Yes: S1, S2 Respiratory: Yes: Mechanically Ventilated Gastrointestinal: Yes: Normal Bowel Sounds, Soft Labs: CBC, BMP 05/01/19 06:00 05/01/19 06:00 INR, PTT INR 1.11 (0.83-1.09) H 04/24/19 06:00 Problem List - Problems (1) CONOR (acute kidney injury) Code(s): N17.9 - ACUTE KIDNEY FAILURE, UNSPECIFIED (2) Anemia Code(s): D64.9 - ANEMIA, UNSPECIFIED Qualifiers: Iron deficiency anemia type: chronic blood loss (3) Atrial fibrillation with RVR Code(s): I48.91 - UNSPECIFIED ATRIAL FIBRILLATION (4) Sepsis Code(s): A41.9 - SEPSIS, UNSPECIFIED ORGANISM Qualifiers: Sepsis type: sepsis due to unspecified organism Sepsis acute organ dysfunction status: without acute organ dysfunction Qualified Code(s): A41.9 - Sepsis, unspecified organism Assessment/Plan - Problems (1) CONOR (acute kidney injury) Assessment/Plan: -Cr normalized -Nephrology on board Problems reviewed: Yes Code(s): N17.9 - ACUTE KIDNEY FAILURE, UNSPECIFIED (2) Abnormal liver function tests Assessment/Plan: -chronic, asymptomatic -GI on board -Avoid hepatotoxic drugs -Statin discontinued Problems reviewed: Yes Code(s): R94.5 - ABNORMAL RESULTS OF LIVER FUNCTION STUDIES (3) Anemia Assessment/Plan: -Previously guaiac + -On AC for chronic afib, benefit>risks -H/H stable -previously low in Iron % -repeat Iron studies, B 12 and thyroid -monitor trend -Transfuse if Hg<7.0 to avoid fluid overload, since pt is chronically anemic Problems reviewed: Yes Code(s): D64.9 - ANEMIA, UNSPECIFIED (4) Atrial fibrillation with RVR Assessment/Plan: -Chronic -rate controlled -Continue Eliquis 5 mg po BID Problems reviewed: Yes Code(s): I48.91 - UNSPECIFIED ATRIAL FIBRILLATION (5) Sacral decubitus ulcer, stage III Assessment/Plan: -Local wound care -Offloading -T&P Q2H -On prosource + Multivitamin Problems reviewed: Yes Code(s): L89.153 - PRESSURE ULCER OF SACRAL REGION, STAGE 3 (6) Septic shock Assessment/Plan: -ID on board -Cultures reviewed -IV Vanco -Afebrile -leukocytes improved Problems reviewed: Yes Code(s): A41.9 - SEPSIS, UNSPECIFIED ORGANISM; R65.21 - SEVERE SEPSIS WITH SEPTIC SHOCK (7) C. difficile diarrhea Assessment/Plan: -PO Vancomycin -Contact isolation Problems reviewed: Yes Code(s): A04.72 - ENTEROCOLITIS D/T CLOSTRIDIUM DIFFICILE, NOT SPCF RECUR (8) Elevated troponin I level Assessment/Plan: -2/2 to demand ischemia in setting of septic shock Problems reviewed: Yes Code(s): R74.8 - ABNORMAL LEVELS OF OTHER SERUM ENZYMES (9) GIB (gastrointestinal bleeding) Problems reviewed: Yes Code(s): K92.2 - GASTROINTESTINAL HEMORRHAGE, UNSPECIFIED Qualifiers: GI bleed type/associated pathology: unspecified gastrointestinal hemorrhage type Qualified Code(s): K92.2 - Gastrointestinal hemorrhage, unspecified (10) Functional quadriplegia Code(s): R53.2 - FUNCTIONAL QUADRIPLEGIA
--- NOTE | 2019-05-01 09:16 | PN ---
Progress Note (short form) - Note Progress Note: Remain on trache; no cardiac issues; NSR CBC WBC 13.1 K/mm3 (4.0-10.0) H 05/01/19 06:00 RBC 3.13 M/mm3 (3.60-5.2) L 05/01/19 06:00 Hgb 8.3 GM/dL (10.7-15.3) L 05/01/19 06:00 Hct 26.1 % (32.4-45.2) L 05/01/19 06:00 MCV 83.4 fl (80-96) 05/01/19 06:00 MCH 26.6 pg (25.7-33.7) 05/01/19 06:00 MCHC 31.8 g/dl (32.0-36.0) L 05/01/19 06:00 RDW 21.3 % (11.6-15.6) H 05/01/19 06:00 Plt Count 128 K/MM3 (134-434) L 05/01/19 06:00 MPV 9.6 fl (7.5-11.1) 05/01/19 06:00 Absolute Neuts (auto) 10.6 K/mm3 (1.5-8.0) H 05/01/19 06:00 Neutrophils % 81.0 % (42.8-82.8) 05/01/19 06:00 Lymphocytes % 9.9 % (8-40) D 05/01/19 06:00 Monocytes % 4.5 % (3.8-10.2) 05/01/19 06:00 Eosinophils % 4.2 % (0-4.5) 05/01/19 06:00 Basophils % 0.4 % (0-2.0) D 05/01/19 06:00 Nucleated RBC % 0 % (0-0) 05/01/19 06:00 Hypochromia 0 04/30/19 05:15 Platelet Estimate Decreased 04/30/19 05:15 Platelet Comment Present 04/30/19 05:15 Polychromasia 1+ 04/30/19 05:15 Poikilocytosis 1+ 04/30/19 05:15 Anisocytosis 1+ 04/30/19 05:15 Microcytosis 1+ 04/30/19 05:15 Macrocytosis 0 04/30/19 05:15 Tear Drop Cells 1+ 04/30/19 05:15 Ovalocytes 1+ 04/30/19 05:15 Stomatocytes 1+ 04/30/19 05:15 Acanthocytes (Spur) 1+ 04/30/19 05:15 CMP Sodium 146 mmol/L (136-145) H 05/01/19 06:00 Potassium 4.0 mmol/L (3.5-5.1) 05/01/19 06:00 Chloride 117 mmol/L (98-107) H 05/01/19 06:00 Carbon Dioxide 26 mmol/L (21-32) 05/01/19 06:00 Anion Gap 4 MMOL/L (8-16) L 05/01/19 06:00 BUN 42.5 mg/dL (7-18) H 05/01/19 06:00 Creatinine 0.7 mg/dL (0.55-1.3) 05/01/19 06:00 Est GFR (CKD-EPI)AfAm 96.86 05/01/19 06:00 Est GFR (CKD-EPI)NonAf 83.57 05/01/19 06:00 POC Glucometer 311 UNITS (80-120) 05/01/19 06:00 Random Glucose 343 mg/dL (74-106) H 05/01/19 06:00 Lactic Acid 2.1 mmol/L (0.4-2.0) H 04/22/19 21:50 Calcium 7.5 mg/dL (8.5-10.1) L 05/01/19 06:00 Phosphorus 2.9 mg/dL (2.5-4.9) 05/01/19 06:00 Magnesium 2.0 mg/dL (1.8-2.4) 05/01/19 06:00 Iron 26 ug/dL (50-175) L 04/29/19 05:10 TIBC 194 ug/dL (250-450) L 04/29/19 05:10 Iron Saturation 13 % (17.5-39) L 04/29/19 05:10 Unsaturated IBC 168 ug/dL (200-275) L 04/29/19 05:10 Total Bilirubin 1.0 mg/dL (0.2-1) 05/01/19 06:00 AST 31 U/L (15-37) 05/01/19 06:00 ALT 32 U/L (13-61) 05/01/19 06:00 Alkaline Phosphatase 264 U/L (45-117) H 05/01/19 06:00 Creatine Kinase 39 U/L (26-192) 04/22/19 21:50 Troponin I 0.69 ng/ml (0.00-0.05) H* 04/28/19 05:40 B-Natriuretic Peptide 7435.2 pg/ml (5-450) H 04/22/19 14:42 Total Protein 4.8 g/dl (6.4-8.2) L 05/01/19 06:00 Albumin 1.2 g/dl (3.4-5.0) L 05/01/19 06:00 Vitamin B12 1548 pg/ml (193-986) H 04/29/19 05:10 Free T4 1.20 ng/dl (0.76-1.46) 04/30/19 05:15 Current Medications Amino Acids (Prosource No Carb Liquid Pkt) 30 ml GT BID@0800,1730 [facility] Last Admin: 05/01/19 10:10 Dose: 30 ml Amiodarone HCl (Cordarone -) 200 mg PO DAILY [facility] Last Admin: 05/01/19 10:11 Dose: 200 mg Apixaban (Eliquis -) 5 mg PEG BID [facility] Last Admin: 05/01/19 10:11 Dose: 5 mg Ascorbic Acid (Vitamin C Oral Solution -) 250 mg GT DAILY [facility] Last Admin: 04/30/19 15:41 Dose: 250 mg Chlorhexidine Gluconate (Hibiclens For Decolonization -) 1 applic TP HS [facility] Last Admin: 04/30/19 21:40 Dose: 1 applic Collagenase (Santyl -) 1 applic TP DAILY [facility]; Protocol Last Admin: 05/01/19 10:13 Dose: 1 applic Norepinephrine Bitartrate 8, (000 mcg/ Dextrose) 500 mls @ 18.75 mls/hr IV TITR [facility]; Protocol Last Titration: 04/30/19 19:00 Dose: 2 mcg/min, 7.5 mls/hr Insulin Aspart (Novolog Vial Sliding Scale -) 1 vial SQ ACHS [facility]; Protocol Last Admin: 05/01/19 06:08 Dose: 8 units Metoprolol Tartrate (Lopressor Injection -) 5 mg IVPUSH Q4H PRN PRN Reason: TACHYCARDIA Last Admin: 04/30/19 02:25 Dose: 5 mg Multi-Ingredient Ointment (Zinc Oxide) 1 applic TP BID [facility] Last Admin: 05/01/19 10:12 Dose: 1 applic Multivitamins/Minerals (Certavite-Antioxidant Liquid) 15 ml GT DAILY [facility] Last Admin: 04/30/19 11:45 Dose: 15 ml Nystatin (Mycostatin Cream -) 1 applic TP BID [facility] Last Admin: 05/01/19 10:13 Dose: 1 applic Pantoprazole Sodium (Protonix Iv) 40 mg IVPUSH BID [facility] Last Admin: 05/01/19 10:09 Dose: 40 mg Vancomycin HCl (Vancomycin Oral Solution) 125 mg GT Q6HPO [facility] Last Admin: 05/01/19 06:09 Dose: 125 mg Zinc Sulfate (Orazinc -) 220 mg GT DAILY [facility] Last Admin: 05/01/19 10:12 Dose: 220 mg Assessment: 1. UTI, PNA, c. diff colitis, sacral decub infxn, septic shock, clinically resolving 2. CAD with evidence of demand ischemic injury angina pectoris 3. Diastolic LV dysfunction with clinical class 0 NYHA classification LV failure 4. Paroxysmal atrial fibrillation with RVR currently in sinus rhythm- atrial pacing [id number] score of 9 on DOAC's/Eliquis 5. Sick sinus syndrome post PPM 6. Post mitral valve repair 7. History of CVA 8. Chronic respiratory failure on mechanical ventilation post tracheostomy 9. HTN 10. Hypercholesterolemia 11. COPD 12. Hypernatremia, improving 13. Hypokalemia 14. Pre-renal azotemia 15. Acute blood loss anemia with history of gastrointestinal bleed 16. Sacral decubitus ulcer PLAN: Cont same: 1. Antibiotics with f/u C&S as per the primary team 2. Titrate pressors to maintain MAP > 65 3. Resume Lopressor once hemodynamics stabilize 3. Continue Amiodarone 200 mg daily 4. Add ACEI or ARBS unless contraindicated, hemodynamics permitting 5. Continue Eliquis 5 bid with close monitoring of Hg, transfuse to maintain Hg equal or > 8.0, protonix 6. No intervention indicated for the above noted elevated Troponin I level consistent with demand ischemia
[2019-05-01] MEDS ORDERED: PT OWN MED DRAWER 7, Y5N ONE ×2 (09:32→10:31)
[2019-05-01] MEDS: PANTOPRAZOLE SODIUM 40 MG VIAL IVPUSH SCH ×2 (10:09→21:13)
[2019-05-01] MEDS: AMINO ACIDS/PROTEIN HYDROLYS 30 ML LIQUID.PKT GT SCH ×2 (10:10→16:55)
[2019-05-01] MEDS: APIXABAN 5 MG TABLET PEG SCH ×2 (10:11→21:13)
[2019-05-01] MEDS: AMIODARONE HCL 200 MG TABLET PO SCH (10:11)
[2019-05-01] MEDS: ZINC SULFATE 220 MG CAPSULE (FP) GT SCH (10:12)
[2019-05-01] MEDS: ZINC OXIDE 20% TOPICAL OINTMENT 30 GM TUBE TP SCH ×2 (10:12→22:23)
[2019-05-01] MEDS: COLLAGENASE CLOSTRIDIUM HIST. 30 GRAMS TUBE TP SCH (10:13)
[2019-05-01] MEDS: NYSTATIN 100,000 UNIT/GM TOPICAL CREAM 15 GM TUBE TP SCH ×2 (10:13→22:22)
--- NOTE | 2019-05-01 11:09 | PN ---
Teaching Attending Note Name of Resident: Oneil Ashley ATTENDING PHYSICIAN STATEMENT I saw and evaluated the patient. I reviewed the resident's note and discussed the case with the resident. I agree with the resident's findings and plan as documented. SUBJECTIVE: Patient seen and examined in the ICU. Vented, poorly responsive. Hemodynamics still unstable requiring NE @ 2 mcq. OBJECTIVE: Intake & Output 04/28/19 04/29/19 04/30/19 05/01/19 23:59 23:59 23:59 23:59 Intake Total 2704.4 2671 854 1362 Output Total 950 1400 700 350 Balance 1754.4 2630 000 8799 Weight 178 lb 12.718 oz 180 lb 14.4 oz 179 lb 11.2 oz 180 lb Last Vital Signs Temp Pulse Resp BP Pulse Ox 98.3 F 66 20 118/40 L 98 05/01/19 06:00 05/01/19 08:00 05/01/19 08:00 05/01/19 08:00 04/30/19 19:36 Active Medications Amino Acids (Prosource No Carb Liquid Pkt) 30 ml GT BID@0800,1730 [facility] Last Admin: 05/01/19 10:10 Dose: 30 ml Amiodarone HCl (Cordarone -) 200 mg PO DAILY [facility] Last Admin: 05/01/19 10:11 Dose: 200 mg Apixaban (Eliquis -) 5 mg PEG BID [facility] Last Admin: 05/01/19 10:11 Dose: 5 mg Ascorbic Acid (Vitamin C Oral Solution -) 250 mg GT DAILY [facility] Last Admin: 04/30/19 15:41 Dose: 250 mg Chlorhexidine Gluconate (Hibiclens For Decolonization -) 1 applic TP HS [facility] Last Admin: 04/30/19 21:40 Dose: 1 applic Collagenase (Santyl -) 1 applic TP DAILY [facility]; Protocol Last Admin: 05/01/19 10:13 Dose: 1 applic Norepinephrine Bitartrate 8, (000 mcg/ Dextrose) 500 mls @ 18.75 mls/hr IV TITR [facility]; Protocol Last Titration: 04/30/19 19:00 Dose: 2 mcg/min, 7.5 mls/hr Insulin Aspart (Novolog Vial Sliding Scale -) 1 vial SQ ACHS [facility]; Protocol Last Admin: 05/01/19 06:08 Dose: 8 units Metoprolol Tartrate (Lopressor Injection -) 5 mg IVPUSH Q4H PRN PRN Reason: TACHYCARDIA Last Admin: 04/30/19 02:25 Dose: 5 mg Multi-Ingredient Ointment (Zinc Oxide) 1 applic TP BID [facility] Last Admin: 05/01/19 10:12 Dose: 1 applic Multivitamins/Minerals (Certavite-Antioxidant Liquid) 15 ml GT DAILY [facility] Last Admin: 04/30/19 11:45 Dose: 15 ml Nystatin (Mycostatin Cream -) 1 applic TP BID [facility] Last Admin: 05/01/19 10:13 Dose: 1 applic Pantoprazole Sodium (Protonix Iv) 40 mg IVPUSH BID [facility] Last Admin: 05/01/19 10:09 Dose: 40 mg Vancomycin HCl (Vancomycin Oral Solution) 125 mg GT Q6HPO [facility] Last Admin: 05/01/19 06:09 Dose: 125 mg Zinc Sulfate (Orazinc -) 220 mg GT DAILY [facility] Last Admin: 05/01/19 10:12 Dose: 220 mg Gen: vented, poorly responsive Heart: irregular Lung: scattered rhonchi Abd: soft, nontender Ext: + edema Back: stage IV sacral ulcer with granulation tissue Laboratory Results - last 24 hr 04/30/19 04/30/19 04/30/19 05:15 13:16 17:39 WBC RBC Hgb Hct MCV MCH MCHC RDW Plt Count MPV Absolute Neuts (auto) Neutrophils % Lymphocytes % Monocytes % Eosinophils % Basophils % Nucleated RBC % Hypochromia 0 Platelet Estimate Decreased Platelet Comment Present Polychromasia 1+ Poikilocytosis 1+ Anisocytosis 1+ Microcytosis 1+ Macrocytosis 0 Tear Drop Cells 1+ Ovalocytes 1+ Stomatocytes 1+ Acanthocytes (Spur) 1+ Sodium Potassium Chloride Carbon Dioxide Anion Gap BUN Creatinine Est GFR (CKD-EPI)AfAm Est GFR (CKD-EPI)NonAf POC Glucometer 305 291 Random Glucose Calcium Phosphorus Magnesium Total Bilirubin AST ALT Alkaline Phosphatase Total Protein Albumin Random Vancomycin 04/30/19 05/01/19 05/01/19 21:36 06:00 06:00 WBC 13.1 H RBC 3.13 L Hgb 8.3 L Hct 26.1 L MCV 83.4 MCH 26.6 MCHC 31.8 L RDW 21.3 H Plt Count 128 L MPV 9.6 Absolute Neuts (auto) 10.6 H Neutrophils % 81.0 Lymphocytes % 9.9 D Monocytes % 4.5 Eosinophils % 4.2 Basophils % 0.4 D Nucleated RBC % 0 Hypochromia Platelet Estimate Platelet Comment Polychromasia Poikilocytosis Anisocytosis Microcytosis Macrocytosis Tear Drop Cells Ovalocytes Stomatocytes Acanthocytes (Spur) Sodium Potassium Chloride Carbon Dioxide Anion Gap BUN Creatinine Est GFR (CKD-EPI)AfAm Est GFR (CKD-EPI)NonAf POC Glucometer 236 Random Glucose Calcium Phosphorus Magnesium Total Bilirubin AST ALT Alkaline Phosphatase Total Protein Albumin Random Vancomycin 16.8 05/01/19 05/01/19 05/01/19 06:00 06:00 10:39 WBC RBC Hgb Hct MCV MCH MCHC RDW Plt Count MPV Absolute Neuts (auto) Neutrophils % Lymphocytes % Monocytes % Eosinophils % Basophils % Nucleated RBC % Hypochromia Platelet Estimate Platelet Comment Polychromasia Poikilocytosis Anisocytosis Microcytosis Macrocytosis Tear Drop Cells Ovalocytes Stomatocytes Acanthocytes (Spur) Sodium 146 H Potassium 4.0 Chloride 117 H Carbon Dioxide 26 Anion Gap 4 L BUN 42.5 H Creatinine 0.7 Est GFR (CKD-EPI)AfAm 96.86 Est GFR (CKD-EPI)NonAf 83.57 POC Glucometer 311 267 Random Glucose 343 H Calcium 7.5 L Phosphorus 2.9 Magnesium 2.0 Total Bilirubin 1.0 AST 31 ALT 32 Alkaline Phosphatase 264 H Total Protein 4.8 L Albumin 1.2 L Random Vancomycin ASSESSMENT AND PLAN: Septic Shock UTI Pneumonia Suspected Sacral Decubitus Ulcer Infection GI Bleed likely Upper Acute Blood Loss Anemia Atrial Fibrillation with RVR CAD COPD HTN DM h/o CVA - Pressors to maintain MAP > 65 - ABX per ID - PPI - Normal transfusion thresholds - rate control - continue volume assist control - DVT/GI prophylaxis - Requires ICU monitoring for pressors Dr Stover Critical care time spent in reviewing chart, evaluating patient and formulating plan - 36 minutes.
[2019-05-01] MEDS: MULTIVIT-MINERALS ORAL LIQUID GT SCH (11:19)
[2019-05-01] MEDS: ASCORBIC ACID 500 MG/5 ML UNIT DOSE CUP GT SCH (11:19)
--- NOTE | 2019-05-01 11:26 | PN ---
Progress Note (short form) - Note Progress Note: Renal follow up for CONOR/CKD Seen and examined in the ICU on vent via trach, FiO2 is 40% On levophed 1mcg no fevers Vital Signs Temperature 98.3 F 05/01/19 06:00 Pulse Rate 66 05/01/19 08:00 Respiratory Rate 20 05/01/19 08:00 Blood Pressure 118/40 L 05/01/19 08:00 O2 Sat by Pulse Oximetry (%) 98 04/30/19 19:36 Intake & Output 04/28/19 04/29/19 04/30/19 05/01/19 23:59 23:59 23:59 23:59 Intake Total 2704.4 2671 854 1362 Output Total 950 1400 700 350 Balance 1754.4 2939 774 8000 Weight 81.1 kg 82.055 kg 81.511 kg 81.647 kg NAD on vent via trach RRR DEc BS bilaterally soft NT/ND ++ edema in LE CBC, BMP 05/01/19 06:00 05/01/19 06:00 Current Medications Amino Acids (Prosource No Carb Liquid Pkt) 30 ml GT BID@0800,1730 [facility] Last Admin: 05/01/19 10:10 Dose: 30 ml Amiodarone HCl (Cordarone -) 200 mg PO DAILY [facility] Last Admin: 05/01/19 10:11 Dose: 200 mg Apixaban (Eliquis -) 5 mg PEG BID [facility] Last Admin: 05/01/19 10:11 Dose: 5 mg Ascorbic Acid (Vitamin C Oral Solution -) 250 mg GT DAILY [facility] Last Admin: 05/01/19 11:19 Dose: 250 mg Chlorhexidine Gluconate (Hibiclens For Decolonization -) 1 applic TP HS [facility] Last Admin: 04/30/19 21:40 Dose: 1 applic Collagenase (Santyl -) 1 applic TP DAILY [facility]; Protocol Last Admin: 05/01/19 10:13 Dose: 1 applic Norepinephrine Bitartrate 8, (000 mcg/ Dextrose) 500 mls @ 18.75 mls/hr IV TITR [facility]; Protocol Last Titration: 04/30/19 19:00 Dose: 2 mcg/min, 7.5 mls/hr Insulin Aspart (Novolog Vial Sliding Scale -) 1 vial SQ ACHS [facility]; Protocol Last Admin: 05/01/19 11:20 Dose: 6 units Metoprolol Tartrate (Lopressor Injection -) 5 mg IVPUSH Q4H PRN PRN Reason: TACHYCARDIA Last Admin: 04/30/19 02:25 Dose: 5 mg Multi-Ingredient Ointment (Zinc Oxide) 1 applic TP BID [facility] Last Admin: 05/01/19 10:12 Dose: 1 applic Multivitamins/Minerals (Certavite-Antioxidant Liquid) 15 ml GT DAILY [facility] Last Admin: 05/01/19 11:19 Dose: 15 ml Nystatin (Mycostatin Cream -) 1 applic TP BID [facility] Last Admin: 05/01/19 10:13 Dose: 1 applic Pantoprazole Sodium (Protonix Iv) 40 mg IVPUSH BID [facility] Last Admin: 05/01/19 10:09 Dose: 40 mg Vancomycin HCl (Vancomycin Oral Solution) 125 mg GT Q6HPO [facility] Last Admin: 05/01/19 06:09 Dose: 125 mg Zinc Sulfate (Orazinc -) 220 mg GT DAILY [facility] Last Admin: 05/01/19 10:12 Dose: 220 mg 79-year-old female with history of chronic respiratory failure, hypertension, coronary artery disease, chronic atrial fibrillation, sick sinus syndrome, type 2 diabetes mellitus, hypertension, GI bleed, recent polymicrobial sepsis, cerebrovascular accident, status post chronic ventilatory support through tracheostomy and chronic kidney failure 1. CONOR now resolved 2. Hypernatremia 3. Sepsis/Septic shock 4. Respiratory failure on Vent 5. Hypokalemia Renal function improved and stable start bolus free water Q8h pt as significant edema/3rd spacing in setting of poor nutrition status and IV fluids. Can consider diuretics once pt is hemodynamically stable will followup as needed please call with any questions or concerns. Tashi Aguirre DO
[2019-05-01] MEDS ORDERED: VANCOMYCIN 1 GRAM (PRE-DOCKED) 1,000 MG/250 ML BAG IVPB ONE (14:39)
--- NOTE | 2019-05-01 14:41 | PN ---
Progress Note, Physician History of Present Illness: AWAKE EYES OPEN AFEBRILE ON LOW DOSE PRESSORS BC MRSA VANCO LEVEL NOTED C DIFF+ URINE, WOUND C/S MIXED - Current Medication List Current Medications: Active Medications Amino Acids (Prosource No Carb Liquid Pkt) 30 ml GT BID@0800,1730 [facility] Last Admin: 05/01/19 10:10 Dose: 30 ml Amiodarone HCl (Cordarone -) 200 mg PO DAILY [facility] Last Admin: 05/01/19 10:11 Dose: 200 mg Apixaban (Eliquis -) 5 mg PEG BID [facility] Last Admin: 05/01/19 10:11 Dose: 5 mg Ascorbic Acid (Vitamin C Oral Solution -) 250 mg GT DAILY [facility] Last Admin: 05/01/19 11:19 Dose: 250 mg Chlorhexidine Gluconate (Hibiclens For Decolonization -) 1 applic TP HS [facility] Last Admin: 04/30/19 21:40 Dose: 1 applic Collagenase (Santyl -) 1 applic TP DAILY [facility]; Protocol Last Admin: 05/01/19 10:13 Dose: 1 applic Norepinephrine Bitartrate 8, (000 mcg/ Dextrose) 500 mls @ 18.75 mls/hr IV TITR [facility]; Protocol Last Titration: 04/30/19 19:00 Dose: 2 mcg/min, 7.5 mls/hr Insulin Aspart (Novolog Vial Sliding Scale -) 1 vial SQ ACHS [facility]; Protocol Last Admin: 05/01/19 11:20 Dose: 6 units Metoprolol Tartrate (Lopressor Injection -) 5 mg IVPUSH Q4H PRN PRN Reason: TACHYCARDIA Last Admin: 04/30/19 02:25 Dose: 5 mg Multi-Ingredient Ointment (Zinc Oxide) 1 applic TP BID [facility] Last Admin: 05/01/19 10:12 Dose: 1 applic Multivitamins/Minerals (Certavite-Antioxidant Liquid) 15 ml GT DAILY [facility] Last Admin: 05/01/19 11:19 Dose: 15 ml Nystatin (Mycostatin Cream -) 1 applic TP BID [facility] Last Admin: 05/01/19 10:13 Dose: 1 applic Pantoprazole Sodium (Protonix Iv) 40 mg IVPUSH BID [facility] Last Admin: 05/01/19 10:09 Dose: 40 mg Vancomycin HCl (Vancomycin Oral Solution) 125 mg GT Q6HPO [facility] Last Admin: 05/01/19 12:26 Dose: 125 mg Zinc Sulfate (Orazinc -) 220 mg GT DAILY [facility] Last Admin: 05/01/19 10:12 Dose: 220 mg - Objective Vital Signs: Vital Signs Temperature 98.7 F 05/01/19 14:00 Pulse Rate 68 05/01/19 14:00 Respiratory Rate 20 05/01/19 14:00 Blood Pressure 136/46 L 05/01/19 14:00 O2 Sat by Pulse Oximetry (%) 97 05/01/19 12:00 Constitutional: Yes: No Distress Eyes: Yes: Conjunctiva Clear Cardiovascular: Yes: Regular Rate and Rhythm, S1, S2 Respiratory: Yes: Mechanically Ventilated Gastrointestinal: Yes: Normal Bowel Sounds, Soft. No: Tenderness Labs: CBC, BMP 05/01/19 06:00 05/01/19 06:00 INR, PTT INR 1.11 (0.83-1.09) H 04/24/19 06:00 Assessment/Plan SEPSIS/ SEPTIC SHOCK MRSA BACTEREMIA + C DIFF CHRONIC RESP FAILURE ANEMIA AZOTEMIA HX MDRO CONTINUE VANCO PER LEVELS VANCO VIA GT CONTACT PRECAUTIONS
--- NOTE | 2019-05-01 15:32 | PN ---
Physical Exam: SUBJECTIVE: Patient seen and examined Central line changed yesterday. Continued to require 1-2mcg levophed overnight. No acute events OBJECTIVE: Vital Signs Period Temp Pulse Resp BP Sys/[place] Pulse Ox Last 24 Hr 98.3 F-98.9 F 62-76 12-24 116-141/38-57 97-98 GENERAL: Asleep but arousable. Not following commands. HEAD: Normal with no signs of trauma. EYES: PERRL, extraocular movements intact, sclera anicteric, conjunctiva clear. No ptosis. ENT: Ears normal, nares patent, oropharynx clear without exudates, moist mucous membranes. NECK: Trach in place without evidence of infection, normal appearing borders LUNGS: Vented, coarse breath sounds in all lung waller, no wheezes, no crackles , no accessory muscle use. HEART: Regular rate and rhythm, S1, S2 without murmur, rub or gallop. ABDOMEN: Soft, nontender, nondistended, normoactive bowel sounds, no guarding, no rebound, no hepatosplenomegaly, no masses. PEG in place EXTREMITIES: 2+ pulses, warm, well-perfused, no edema. NEUROLOGICAL: Limited due to mental status SKIN: sacral debridement wound ~11x8cm in diameter with depth to the bone, fibrinous tissue at the bases with no evidence of bleeding or purulence Laboratory Results - last 24 hr CBC, BMP 05/01/19 06:00 05/01/19 06:00 Active Medications Generic Name Dose Route Start Last Admin Trade Name Freq PRN Reason Stop Dose Admin Amino Acids 30 ml 04/26/19 17:30 05/01/19 10:10 Prosource No Carb Liquid Pkt [facility] 30 ml BID@0800,1730 [facility] Administration Amiodarone HCl 200 mg 04/29/19 10:00 05/01/19 10:11 Cordarone - PO 200 mg DAILY [facility] Administration Apixaban 5 mg 04/28/19 22:00 05/01/19 10:11 Eliquis - PEG 5 mg BID [facility] Administration Ascorbic Acid 250 mg 04/27/19 10:00 05/01/19 11:19 Vitamin C Oral Solution - GT 250 mg DAILY [facility] Administration Chlorhexidine Gluconate 1 applic 04/22/19 22:00 04/30/19 21:40 Hibiclens For Decolonization - TP 1 applic HS [facility] Administration Collagenase 1 applic 04/27/19 10:00 05/01/19 10:13 Santyl - TP 1 applic DAILY [facility] Administration Protocol Norepinephrine Bitartrate 8, 500 mls @ 18.75 mls/hr 04/28/19 12:15 04/30/19 19:00 000 mcg/ Dextrose IV 2 mcg/min TITR [facility] 7.5 mls/hr Titration Protocol 5 MCG/MIN Vancomycin HCl 1,000 mg in 250 mls @ 166.667 mls/hr 05/01/19 14:39 Vancomycin (Pre-Docked) IVPB 05/01/19 16:08 ONCE ONE Protocol Insulin Aspart 1 vial 04/23/19 22:00 05/01/19 11:20 Novolog Vial Sliding Scale - SQ 6 units ACHS [facility] Administration Protocol Metoprolol Tartrate 5 mg 04/27/19 13:06 04/30/19 02:25 Lopressor Injection - IVPUSH 5 mg Q4H PRN Administration TACHYCARDIA Multi-Ingredient Ointment 1 applic 04/26/19 22:00 05/01/19 10:12 Zinc Oxide TP 1 applic BID [facility] Administration Multivitamins/Minerals 15 ml 04/27/19 10:00 05/01/19 11:19 Certavite-Antioxidant Liquid GT 15 ml DAILY [facility] Administration Nystatin 1 applic 04/24/19 16:14 05/01/19 10:13 Mycostatin Cream - TP 1 applic BID [facility] Administration Pantoprazole Sodium 40 mg 04/24/19 10:00 05/01/19 10:09 Protonix Iv IVPUSH 40 mg BID [facility] Administration Vancomycin HCl 125 mg 04/24/19 18:00 05/01/19 12:26 Vancomycin Oral Solution GT 125 mg Q6HPO [facility] Administration Zinc Sulfate 220 mg 04/27/19 10:00 05/01/19 10:12 Orazinc - GT 220 mg DAILY [facility] Administration ASSESSMENT/PLAN: Patient is a 79 year olf female with PMH of CAD, Afib (on Eliquis), sick sinus syndrome (s/p PPM), DMII, HTN, COPD, remote history of GI bleed, colonic angiodysplasia, sigmoid diverticulosis, internal hemorrhoids, CVA (RUE/LE paralysis, non verbal), chronic respiratory failure (s/p trach-vent dependent), chronic stage 4 sacral ulcer, presenting from [facility] for T 102.3 and Afib with RVR with concern for septic shock with source of pna vs uti vs sacral ulcer. ICU course complicated with GI bleed s/p pRBC and now stable Neuro -Arousable to stimulus but does not respond or follow commands Cardiovascular -Afib with RVR s/p 10mg cardizem and 3L ivf in the ED -EKG: Afib with rvr, no hilton/d -Trop 0.13, 0.11, 0.69, likely demand ischemia in setting of septic shock -Cardio following (Dr. Gaines): cont amiodarone 200mg daily and eliquis 5mg BID -BNP 7435 -Currently on 3 of levophed -will wean as tolerated -Closely monitor hemodynamics Pulmonary -Trach and vent dependent with sats 100% -CXR (04/30/19): congestive and infiltrative changes -Empiric abx GI -PEG in place, cont feeds -S/p GI bleed w/ blood per rectum and high BUN -40mg pantoprazole BID -GI following (Dr. García): suspect small bowel ectasias >In depth discussion w/daughter regarding repeat colonoscopy and daughter states she will not pursue; will continue conservative GI bleed management Heme -Normocytic anemia - possibly 2/2 GIB s/p 2u pRBC -Cont to monitor CBC daily; today 8.3 with slight downtrend from 8.9 2 days ago Renal -Cr stable -UA: turbid appearance with 3+leuks, bacteria and WBC -D/c IVF given edema -Nephro following ID -Received empiric abx (vanc, zosyn, meropenem, levofloxacin, daptomycin) given previous sensitivities -Blood cx: MRSA -Cdif + -Meropenem d/c'ed -Cont PO vanc; IV vanc per levels Wound -sacral decubitus debridement site, does not appear infected -daily wound care; frequent turns; offloading; santyl daily Dispo: ICU monitoring for pressor requirement HCP is daughter, however, after ED convo with daughter, she states she relinquishes authority to her father to make decision regarding code status. After discussion with Mr Laboy, states he would like full code Visit type - Emergency Visit Emergency Visit: No - New Patient This patient is new to me today: No - Critical Care Critical Care patient: Yes Total Critical Care Time (in minutes): 35 Critical Care Statement: The care of this patient involved high complexity decision making to prevent further life threatening deterioration of the patient 's condition and/or to evaluate & treat vital organ system(s) failure or risk of failure. ATTENDING PHYSICIAN STATEMENT I saw and evaluated the patient. I reviewed the resident's note and discussed the case with the resident. I agree with the resident's findings and plan as documented. SUBJECTIVE: OBJECTIVE: ASSESSMENT AND PLAN:
[2019-05-01] MEDS: CHLORHEXIDINE GLUCONATE 4% CLEANSER FOR DECOLONIZATION TP SCH (21:11)
[2019-05-01] MEDS: METOPROLOL TARTRATE 5 MG/5 ML VIAL IVPUSH PRN (21:13)
[2019-05-02] MEDS ORDERED: PT OWN MED DRAWER 7, Y5N ONE ×2 (05:24→09:30)
[2019-05-02] MEDS: VANCOMYCIN 250 MG/5 ML ORAL SOLUTION GT SCH ×3 (06:07→17:32)
[2019-05-02] MEDS: INSULIN SLIDING SCALE (NOVOLOG) 1 VIAL SQ SCH ×4 (06:11→22:13)
[2019-05-02 06:49] LABS: BASO % 0.3 % (0-2.0); EOS % 4.6 % (0-4.5); HEMATOCRIT 24.9 % (32.4-45.2); LYMPH % 10.9 % (8-40); MCH 26.8 pg (25.7-33.7); MCHC 32.1 g/dl (32.0-36.0); MEAN CELL VOLUME 83.5 fl (80-96); MEAN PLT VOLUME 9.5 fl (7.5-11.1); MONO % 4.8 % (3.8-10.2); NEUT % 79.4 % (42.8-82.8); PLATELET COUNT 130 K/MM3 (134-434); RBC 2.98 M/mm3 (3.60-5.2); WHITE BLOOD COUNT 10.1 K/mm3 (4.0-10.0)
[2019-05-02 07:12] LABS: ALBUMIN 1.2 g/dl (3.4-5.0); BILIRUBIN,TOTAL 0.5 mg/dL (0.2-1); BLOOD UREA NITROGEN 42.1 mg/dL (7-18); CALCIUM 7.5 mg/dL (8.5-10.1); CREATININE 0.6 mg/dL (0.55-1.3); PHOSPHOROUS 2.7 mg/dL (2.5-4.9); TOT PROT 4.6 g/dl (6.4-8.2)
[2019-05-02] MEDS: AMINO ACIDS/PROTEIN HYDROLYS 30 ML LIQUID.PKT GT SCH ×2 (08:52→17:32)
[2019-05-02] MEDS: PANTOPRAZOLE SODIUM 40 MG VIAL IVPUSH SCH ×2 (09:32→22:01)
[2019-05-02] MEDS: AMIODARONE HCL 200 MG TABLET PO SCH (09:33)
[2019-05-02] MEDS: MULTIVIT-MINERALS ORAL LIQUID GT SCH (09:33)
[2019-05-02] MEDS: APIXABAN 5 MG TABLET PEG SCH ×2 (09:33→22:01)
[2019-05-02] MEDS: ASCORBIC ACID 500 MG/5 ML UNIT DOSE CUP GT SCH (09:33)
[2019-05-02] MEDS: ZINC SULFATE 220 MG CAPSULE (FP) GT SCH (09:33)
[2019-05-02] MEDS: NYSTATIN 100,000 UNIT/GM TOPICAL CREAM 15 GM TUBE TP SCH ×2 (09:34→22:01)
[2019-05-02] MEDS: ZINC OXIDE 20% TOPICAL OINTMENT 30 GM TUBE TP SCH ×2 (09:35→23:47)
[2019-05-02] MEDS: COLLAGENASE CLOSTRIDIUM HIST. 30 GRAMS TUBE TP SCH (09:35)
--- NOTE | 2019-05-02 09:48 | PN ---
Progress Note, Physician Chief Complaint: AWAKE IN ICU TRACH/VENT SUPPORT OFF PRESSOR SUPPORT - Current Medication List Current Medications: Active Medications Amino Acids (Prosource No Carb Liquid Pkt) 30 ml GT BID@0800,1730 [facility] Last Admin: 05/02/19 08:52 Dose: 30 ml Amiodarone HCl (Cordarone -) 200 mg PO DAILY [facility] Last Admin: 05/02/19 09:33 Dose: 200 mg Apixaban (Eliquis -) 5 mg PEG BID [facility] Last Admin: 05/02/19 09:33 Dose: 5 mg Ascorbic Acid (Vitamin C Oral Solution -) 250 mg GT DAILY [facility] Last Admin: 05/02/19 09:33 Dose: 250 mg Chlorhexidine Gluconate (Hibiclens For Decolonization -) 1 applic TP HS [facility] Last Admin: 05/01/19 21:11 Dose: 1 applic Collagenase (Santyl -) 1 applic TP DAILY [facility]; Protocol Last Admin: 05/02/19 09:35 Dose: 1 applic Norepinephrine Bitartrate 8, (000 mcg/ Dextrose) 500 mls @ 18.75 mls/hr IV TITR [facility]; Protocol Last Titration: 05/01/19 16:00 Dose: 0 mcg/min, 0 mls/hr Insulin Aspart (Novolog Vial Sliding Scale -) 1 vial SQ ACHS [facility]; Protocol Last Admin: 05/02/19 06:11 Dose: 4 units Metoprolol Tartrate (Lopressor Injection -) 5 mg IVPUSH Q4H PRN PRN Reason: TACHYCARDIA Last Admin: 05/01/19 21:13 Dose: 5 mg Multi-Ingredient Ointment (Zinc Oxide) 1 applic TP BID [facility] Last Admin: 05/02/19 09:35 Dose: 1 applic Multivitamins/Minerals (Certavite-Antioxidant Liquid) 15 ml GT DAILY [facility] Last Admin: 05/02/19 09:33 Dose: 15 ml Nystatin (Mycostatin Cream -) 1 applic TP BID [facility] Last Admin: 05/02/19 09:34 Dose: 1 applic Pantoprazole Sodium (Protonix Iv) 40 mg IVPUSH BID [facility] Last Admin: 05/02/19 09:32 Dose: 40 mg Vancomycin HCl (Vancomycin Oral Solution) 125 mg GT Q6HPO [facility] Last Admin: 05/02/19 06:07 Dose: 125 mg Zinc Sulfate (Orazinc -) 220 mg GT DAILY [facility] Last Admin: 05/02/19 09:33 Dose: 220 mg - Objective Vital Signs: Vital Signs Temperature 98.9 F 05/02/19 06:00 Pulse Rate 105 H 05/02/19 09:35 Respiratory Rate 19 05/02/19 09:35 Blood Pressure 128/65 05/02/19 09:35 O2 Sat by Pulse Oximetry (%) 100 05/02/19 09:00 Constitutional: Yes: Mild Distress Cardiovascular: Yes: Pulse Irregular Respiratory: Yes: Mechanically Ventilated Gastrointestinal: Yes: Soft Genitourinary: Yes: [place] Present Musculoskeletal: Yes: Muscle Weakness Edema: Yes Neurological: Yes: Aphasia, Pre-Existing Deficit, Weakness Psychiatric: Yes: Other Labs: CBC, BMP 05/02/19 05:40 05/02/19 05:40 INR, PTT INR 1.11 (0.83-1.09) H 04/24/19 06:00 Problem List - Problems (1) History of CVA (cerebrovascular accident) Code(s): Z86.73 - PRSNL HX OF TIA (TIA), AND CEREB INFRC W/O RESID DEFICITS (2) CONOR (acute kidney injury) Code(s): N17.9 - ACUTE KIDNEY FAILURE, UNSPECIFIED (3) Anemia Code(s): D64.9 - ANEMIA, UNSPECIFIED Qualifiers: Iron deficiency anemia type: chronic blood loss (4) Atrial fibrillation with RVR Code(s): I48.91 - UNSPECIFIED ATRIAL FIBRILLATION (5) NSTEMI (non-ST elevated myocardial infarction) Code(s): I21.4 - NON-ST ELEVATION (NSTEMI) MYOCARDIAL INFARCTION (6) Septic shock Code(s): A41.9 - SEPSIS, UNSPECIFIED ORGANISM; R65.21 - SEVERE SEPSIS WITH SEPTIC SHOCK (7) Severe sepsis Code(s): A41.9 - SEPSIS, UNSPECIFIED ORGANISM; R65.20 - SEVERE SEPSIS WITHOUT SEPTIC SHOCK (8) Stage 4 skin ulcer of sacral region Code(s): L98.429 - NON-PRESSURE CHRONIC ULCER OF BACK WITH UNSPECIFIED SEVERITY (9) Diastolic dysfunction Code(s): I51.89 - OTHER ILL-DEFINED HEART DISEASES (10) Guaiac + stool Code(s): R19.5 - OTHER FECAL ABNORMALITIES (11) Sacral decubitus ulcer Code(s): L89.159 - PRESSURE ULCER OF SACRAL REGION, UNSPECIFIED STAGE Qualifiers: Pressure injury stage: stage 4 Qualified Code(s): L89.154 - Pressure ulcer of sacral region, stage 4 (12) Ventilator dependent Code(s): Z99.11 - DEPENDENCE ON RESPIRATOR [VENTILATOR] STATUS (13) Atrial fibrillation Code(s): I48.91 - UNSPECIFIED ATRIAL FIBRILLATION Qualifiers: Atrial fibrillation type: permanent Qualified Code(s): I48.21 - Permanent atrial fibrillation (14) COPD (chronic obstructive pulmonary disease) Code(s): J44.9 - CHRONIC OBSTRUCTIVE PULMONARY DISEASE, UNSPECIFIED Qualifiers: COPD type: unspecified COPD Qualified Code(s): J44.9 - Chronic obstructive pulmonary disease, unspecified (15) Diabetes mellitus Code(s): E11.9 - TYPE 2 DIABETES MELLITUS WITHOUT COMPLICATIONS Qualifiers: Diabetes mellitus type: type 2 Diabetes mellitus supervisor intermediates insulin use: without detention use Diabetes mellitus complication status: without complication Qualified Code(s): E11.9 - Type 2 diabetes mellitus without complications (16) H/O mitral valve replacement Code(s): Z95.2 - PRESENCE OF PROSTHETIC HEART VALVE (17) Lung nodule Code(s): R91.1 - SOLITARY PULMONARY NODULE (18) Pacemaker Code(s): Z95.0 - PRESENCE OF CARDIAC PACEMAKER (19) Sacral decubitus ulcer, stage III Code(s): L89.153 - PRESSURE ULCER OF SACRAL REGION, STAGE 3 Assessment/Plan OFFLOAD SACRAL ULCER WITH PILLOWS AND FREQUENT TURNING OPTIMIZE NUTRITION FOR BETTER HEALING COLLAGENASE TO ULCER AFTER SALINE CLEANSE DAILY ABX PER ID ON VANCOMYCIN VENT DEPENDENT UNABLE TO WEAN OFF OVERALL QUALITY OF LIFE IS POOR ADVANCED DIRECTIVES, PALLIATIVE CARE CONSULT MEDS[facility] AND SNF WHEN MEDICALLY CLEARED FROM ICU
--- NOTE | 2019-05-02 10:40 | PN ---
Teaching Attending Note Name of Resident: Lisbeth Durand ATTENDING PHYSICIAN STATEMENT I saw and evaluated the patient. I reviewed the resident's note and discussed the case with the resident. I agree with the resident's findings and plan as documented. SUBJECTIVE: Patient seen and examined in the ICU. Vented, poorly responsive. Off pressors since 4PM. OBJECTIVE: Intake & Output 04/29/19 04/30/19 05/01/19 05/02/19 23:59 23:59 23:59 23:59 Intake Total 2671 854 3361 1620 Output Total 1400 272 154 9264 Balance 4713 839 5609 620 Weight 180 lb 14.4 oz 179 lb 11.2 oz 180 lb 182 lb 6 oz Last Vital Signs Temp Pulse Resp BP Pulse Ox 98.9 F 108 H 18 123/57 L 100 05/02/19 06:00 05/02/19 10:19 05/02/19 10:19 05/02/19 10:19 05/02/19 10:00 Active Medications Amino Acids (Prosource No Carb Liquid Pkt) 30 ml GT BID@0800,1730 [facility] Last Admin: 05/02/19 08:52 Dose: 30 ml Amiodarone HCl (Cordarone -) 200 mg PO DAILY [facility] Last Admin: 05/02/19 09:33 Dose: 200 mg Apixaban (Eliquis -) 5 mg PEG BID [facility] Last Admin: 05/02/19 09:33 Dose: 5 mg Ascorbic Acid (Vitamin C Oral Solution -) 250 mg GT DAILY [facility] Last Admin: 05/02/19 09:33 Dose: 250 mg Chlorhexidine Gluconate (Hibiclens For Decolonization -) 1 applic TP HS [facility] Last Admin: 05/01/19 21:11 Dose: 1 applic Collagenase (Santyl -) 1 applic TP DAILY [facility]; Protocol Last Admin: 05/02/19 09:35 Dose: 1 applic Norepinephrine Bitartrate 8, (000 mcg/ Dextrose) 500 mls @ 18.75 mls/hr IV TITR [facility]; Protocol Last Titration: 05/01/19 16:00 Dose: 0 mcg/min, 0 mls/hr Insulin Aspart (Novolog Vial Sliding Scale -) 1 vial SQ ACHS [facility]; Protocol Last Admin: 05/02/19 06:11 Dose: 4 units Metoprolol Tartrate (Lopressor Injection -) 5 mg IVPUSH Q4H PRN PRN Reason: TACHYCARDIA Last Admin: 05/01/19 21:13 Dose: 5 mg Multi-Ingredient Ointment (Zinc Oxide) 1 applic TP BID [facility] Last Admin: 05/02/19 09:35 Dose: 1 applic Multivitamins/Minerals (Certavite-Antioxidant Liquid) 15 ml GT DAILY [facility] Last Admin: 05/02/19 09:33 Dose: 15 ml Nystatin (Mycostatin Cream -) 1 applic TP BID [facility] Last Admin: 05/02/19 09:34 Dose: 1 applic Pantoprazole Sodium (Protonix Iv) 40 mg IVPUSH BID [facility] Last Admin: 05/02/19 09:32 Dose: 40 mg Vancomycin HCl (Vancomycin Oral Solution) 125 mg GT Q6HPO [facility] Last Admin: 05/02/19 06:07 Dose: 125 mg Zinc Sulfate (Orazinc -) 220 mg GT DAILY [facility] Last Admin: 05/02/19 09:33 Dose: 220 mg Gen: vented, poorly responsive Heart: irregular Lung: scattered rhonchi Abd: soft, nontender Ext: + edema Back: stage IV sacral ulcer with granulation tissue Laboratory Results - last 24 hr 05/01/19 05/01/19 05/01/19 10:39 17:43 21:02 WBC RBC Hgb Hct MCV MCH MCHC RDW Plt Count MPV Absolute Neuts (auto) Neutrophils % Lymphocytes % Monocytes % Eosinophils % Basophils % Nucleated RBC % Sodium Potassium Chloride Carbon Dioxide Anion Gap BUN Creatinine Est GFR (CKD-EPI)AfAm Est GFR (CKD-EPI)NonAf POC Glucometer 267 295 244 Random Glucose Calcium Phosphorus Magnesium Total Bilirubin AST ALT Alkaline Phosphatase Total Protein Albumin Random Vancomycin 05/02/19 05/02/19 05/02/19 05:40 05:40 06:00 WBC 10.1 H RBC 2.98 L Hgb 8.0 L Hct 24.9 L MCV 83.5 MCH 26.8 MCHC 32.1 RDW 22.0 H Plt Count 130 L MPV 9.5 Absolute Neuts (auto) 8.0 Neutrophils % 79.4 Lymphocytes % 10.9 Monocytes % 4.8 Eosinophils % 4.6 H Basophils % 0.3 Nucleated RBC % 0 Sodium 145 Potassium 4.0 Chloride 116 H Carbon Dioxide 26 Anion Gap 3 L BUN 42.1 H Creatinine 0.6 Est GFR (CKD-EPI)AfAm 101.90 Est GFR (CKD-EPI)NonAf 87.92 POC Glucometer Random Glucose 296 H Calcium 7.5 L Phosphorus 2.7 Magnesium 2.0 Total Bilirubin 0.5 AST 32 ALT 30 Alkaline Phosphatase 265 H Total Protein 4.6 L Albumin 1.2 L Random Vancomycin 21.3 05/02/19 06:04 WBC RBC Hgb Hct MCV MCH MCHC RDW Plt Count MPV Absolute Neuts (auto) Neutrophils % Lymphocytes % Monocytes % Eosinophils % Basophils % Nucleated RBC % Sodium Potassium Chloride Carbon Dioxide Anion Gap BUN Creatinine Est GFR (CKD-EPI)AfAm Est GFR (CKD-EPI)NonAf POC Glucometer 253 Random Glucose Calcium Phosphorus Magnesium Total Bilirubin AST ALT Alkaline Phosphatase Total Protein Albumin Random Vancomycin ASSESSMENT AND PLAN: Septic Shock UTI Pneumonia Suspected Sacral Decubitus Ulcer Infection GI Bleed likely Upper Acute Blood Loss Anemia Atrial Fibrillation with RVR CAD COPD HTN DM h/o CVA - Monitor off pressors - ABX per ID - PPI - Normal transfusion thresholds - rate control - continue volume assist control - DVT/GI prophylaxis Dr Stover
--- NOTE | 2019-05-02 11:28 | PN ---
Progress Note, Physician History of Present Illness: Remains off pressors. 40% PEEP 5. Increased anasarca and weight gain since admission. - Current Medication List Current Medications: Active Medications Amino Acids (Prosource No Carb Liquid Pkt) 30 ml GT BID@0800,1730 [facility] Last Admin: 05/02/19 08:52 Dose: 30 ml Amiodarone HCl (Cordarone -) 200 mg PO DAILY [facility] Last Admin: 05/02/19 09:33 Dose: 200 mg Apixaban (Eliquis -) 5 mg PEG BID [facility] Last Admin: 05/02/19 09:33 Dose: 5 mg Ascorbic Acid (Vitamin C Oral Solution -) 250 mg GT DAILY [facility] Last Admin: 05/02/19 09:33 Dose: 250 mg Chlorhexidine Gluconate (Hibiclens For Decolonization -) 1 applic TP HS [facility] Last Admin: 05/01/19 21:11 Dose: 1 applic Collagenase (Santyl -) 1 applic TP DAILY [facility]; Protocol Last Admin: 05/02/19 09:35 Dose: 1 applic Norepinephrine Bitartrate 8, (000 mcg/ Dextrose) 500 mls @ 18.75 mls/hr IV TITR [facility]; Protocol Last Titration: 05/01/19 16:00 Dose: 0 mcg/min, 0 mls/hr Insulin Aspart (Novolog Vial Sliding Scale -) 1 vial SQ ACHS [facility]; Protocol Last Admin: 05/02/19 11:14 Dose: 6 units Metoprolol Tartrate (Lopressor Injection -) 5 mg IVPUSH Q4H PRN PRN Reason: TACHYCARDIA Last Admin: 05/01/19 21:13 Dose: 5 mg Multi-Ingredient Ointment (Zinc Oxide) 1 applic TP BID [facility] Last Admin: 05/02/19 09:35 Dose: 1 applic Multivitamins/Minerals (Certavite-Antioxidant Liquid) 15 ml GT DAILY [facility] Last Admin: 05/02/19 09:33 Dose: 15 ml Nystatin (Mycostatin Cream -) 1 applic TP BID [facility] Last Admin: 05/02/19 09:34 Dose: 1 applic Pantoprazole Sodium (Protonix Iv) 40 mg IVPUSH BID [facility] Last Admin: 05/02/19 09:32 Dose: 40 mg Vancomycin HCl (Vancomycin Oral Solution) 125 mg GT Q6HPO [facility] Last Admin: 05/02/19 06:07 Dose: 125 mg Zinc Sulfate (Orazinc -) 220 mg GT DAILY [facility] Last Admin: 05/02/19 09:33 Dose: 220 mg - Objective Vital Signs: Vital Signs Temperature 98.9 F 05/02/19 06:00 Pulse Rate 108 H 05/02/19 10:19 Respiratory Rate 18 05/02/19 10:19 Blood Pressure 123/57 L 05/02/19 10:19 O2 Sat by Pulse Oximetry (%) 100 05/02/19 10:00 Constitutional: Yes: No Distress, Calm Neck: Yes: Other (Tracheostomy) Cardiovascular: Yes: Regular Rate and Rhythm Respiratory: Yes: Mechanically Ventilated Gastrointestinal: Yes: Normal Bowel Sounds, Soft, Other (PEG in place) Genitourinary: Yes: [place] Present Edema: Yes Edema: LUE: 2+, RUE: 2+, LLE: 2+, RLE: 2+ Labs: CBC, BMP 05/02/19 05:40 05/02/19 05:40 INR, PTT INR 1.11 (0.83-1.09) H 04/24/19 06:00 - ....Imaging Chest X-ray: Report Reviewed (Congestion and effusion) EKG: Report Reviewed (Tele: NSR) Problem List - Problems (1) Anemia Code(s): D64.9 - ANEMIA, UNSPECIFIED Qualifiers: Iron deficiency anemia type: chronic blood loss (2) C. difficile diarrhea Code(s): A04.72 - ENTEROCOLITIS D/T CLOSTRIDIUM DIFFICILE, NOT SPCF RECUR (3) Septic shock Code(s): A41.9 - SEPSIS, UNSPECIFIED ORGANISM; R65.21 - SEVERE SEPSIS WITH SEPTIC SHOCK (4) Stage 4 skin ulcer of sacral region Code(s): L98.429 - NON-PRESSURE CHRONIC ULCER OF BACK WITH UNSPECIFIED SEVERITY (5) A-fib Code(s): I48.91 - UNSPECIFIED ATRIAL FIBRILLATION Qualifiers: Atrial fibrillation type: longstanding persistent Qualified Code(s): I48.11 - Longstanding persistent atrial fibrillation (6) Angiodysplasia of colon with hemorrhage Code(s): K55.21 - ANGIODYSPLASIA OF COLON WITH HEMORRHAGE (7) CAD (coronary artery disease) Code(s): I25.10 - ATHSCL HEART DISEASE OF [place] CORONARY ARTERY W/O ANG PCTRS Qualifiers: Coronary Disease-Associated Artery/Lesion type: [place] artery [place] vs. transplanted heart: [place] heart Associated angina: without angina Qualified Code(s): I25.10 - Atherosclerotic heart disease of [place] coronary artery without angina pectoris (8) CVA (cerebral vascular accident) Code(s): I63.9 - CEREBRAL INFARCTION, UNSPECIFIED Qualifiers: CVA mechanism: embolism (9) Demand ischemia Code(s): I24.8 - OTHER FORMS OF ACUTE ISCHEMIC HEART DISEASE (10) Diabetes mellitus Code(s): E11.9 - TYPE 2 DIABETES MELLITUS WITHOUT COMPLICATIONS Qualifiers: Diabetes mellitus type: type 2 Diabetes mellitus senior care insulin use: with terminal makeup operator use Diabetes mellitus complication status: with hyperglycemia Qualified Code(s): E11.65 - Type 2 diabetes mellitus with hyperglycemia; Z79.4 - half-way (current) use of insulin (11) Diastolic dysfunction Code(s): I51.89 - OTHER ILL-DEFINED HEART DISEASES (12) Elevated troponin I level Code(s): R74.8 - ABNORMAL LEVELS OF OTHER SERUM ENZYMES (13) GIB (gastrointestinal bleeding) Code(s): K92.2 - GASTROINTESTINAL HEMORRHAGE, UNSPECIFIED Qualifiers: GI bleed type/associated pathology: unspecified gastrointestinal hemorrhage type Qualified Code(s): K92.2 - Gastrointestinal hemorrhage, unspecified (14) Hemiparesis and other late effects of cerebrovascular accident Code(s): I69.359 - HEMIPLGA FOLLOWING CEREBRAL INFARCTION AFFECTING UNSP SIDE; I69.398 - OTHER SEQUELAE OF CEREBRAL INFARCTION (15) S/P mitral valve repair Code(s): Z98.890 - OTHER SPECIFIED POSTPROCEDURAL STATES (16) Ventilator dependent Code(s): Z99.11 - DEPENDENCE ON RESPIRATOR [VENTILATOR] STATUS Assessment/Plan ASSESSMENT: 1. UTI, PNA, c. diff colitis, sacral decub infxn, septic shock, clinically resolving 2. CAD with evidence of demand ischemic injury angina pectoris 3. Diastolic LV dysfunction with clinical class 0 NYHA classification LV failure 4. Paroxysmal atrial fibrillation with RVR currently in sinus rhythm- atrial pacing [id number] score of 9 on DOAC's/Eliquis 5. Sick sinus syndrome post PPM 6. Post mitral valve repair 7. History of CVA 8. Chronic respiratory failure on mechanical ventilation post tracheostomy 9. HTN 10. Hypercholesterolemia 11. COPD 12. Hypernatremia resolved 13. Hypokalemia resolved 14. Pre-renal azotemia 15. Acute blood loss anemia with history of gastrointestinal bleed 16. Sacral decubitus ulcer PLAN: 1. Antibiotics with f/u C&S as per the primary team 2. Monitor off pressors 3. Resume Lopressor 25 bid with uptitration as hemodynamics tolerate 4. Continue Amiodarone 200 mg daily 5. Add ACEI or ARBS unless contraindicated, hemodynamics permitting 6. Continue Eliquis 5 bid with close monitoring of Hg, transfuse to maintain Hg equal or > 8.0, protonix 7. No intervention indicated for the above noted elevated Troponin I level consistent with demand ischemia 8. Diuresis as needed to keep even
--- NOTE | 2019-05-02 11:29 | PN ---
Progress Note, Physician History of Present Illness: LETHARGIC TODAY AFEBRILE BC MRSA VANCO LEVEL NOTED C DIFF+ URINE, WOUND C/S MIXED - Current Medication List Current Medications: Active Medications Amino Acids (Prosource No Carb Liquid Pkt) 30 ml GT BID@0800,1730 [facility] Last Admin: 05/02/19 08:52 Dose: 30 ml Amiodarone HCl (Cordarone -) 200 mg PO DAILY [facility] Last Admin: 05/02/19 09:33 Dose: 200 mg Apixaban (Eliquis -) 5 mg PEG BID [facility] Last Admin: 05/02/19 09:33 Dose: 5 mg Ascorbic Acid (Vitamin C Oral Solution -) 250 mg GT DAILY [facility] Last Admin: 05/02/19 09:33 Dose: 250 mg Chlorhexidine Gluconate (Hibiclens For Decolonization -) 1 applic TP HS [facility] Last Admin: 05/01/19 21:11 Dose: 1 applic Collagenase (Santyl -) 1 applic TP DAILY [facility]; Protocol Last Admin: 05/02/19 09:35 Dose: 1 applic Norepinephrine Bitartrate 8, (000 mcg/ Dextrose) 500 mls @ 18.75 mls/hr IV TITR [facility]; Protocol Last Titration: 05/01/19 16:00 Dose: 0 mcg/min, 0 mls/hr Insulin Aspart (Novolog Vial Sliding Scale -) 1 vial SQ ACHS [facility]; Protocol Last Admin: 05/02/19 11:14 Dose: 6 units Metoprolol Tartrate (Lopressor Injection -) 5 mg IVPUSH Q4H PRN PRN Reason: TACHYCARDIA Last Admin: 05/01/19 21:13 Dose: 5 mg Multi-Ingredient Ointment (Zinc Oxide) 1 applic TP BID [facility] Last Admin: 05/02/19 09:35 Dose: 1 applic Multivitamins/Minerals (Certavite-Antioxidant Liquid) 15 ml GT DAILY [facility] Last Admin: 05/02/19 09:33 Dose: 15 ml Nystatin (Mycostatin Cream -) 1 applic TP BID [facility] Last Admin: 05/02/19 09:34 Dose: 1 applic Pantoprazole Sodium (Protonix Iv) 40 mg IVPUSH BID [facility] Last Admin: 05/02/19 09:32 Dose: 40 mg Vancomycin HCl (Vancomycin Oral Solution) 125 mg GT Q6HPO [facility] Last Admin: 05/02/19 06:07 Dose: 125 mg Zinc Sulfate (Orazinc -) 220 mg GT DAILY [facility] Last Admin: 05/02/19 09:33 Dose: 220 mg - Objective Vital Signs: Vital Signs Temperature 98.9 F 05/02/19 06:00 Pulse Rate 108 H 05/02/19 10:19 Respiratory Rate 18 05/02/19 10:19 Blood Pressure 123/57 L 05/02/19 10:19 O2 Sat by Pulse Oximetry (%) 100 05/02/19 10:00 Constitutional: Yes: No Distress Cardiovascular: Yes: Regular Rate and Rhythm, S1, S2 Respiratory: Yes: Mechanically Ventilated Gastrointestinal: Yes: Normal Bowel Sounds, Soft. No: Tenderness Edema: Yes Labs: CBC, BMP 05/02/19 05:40 05/02/19 05:40 INR, PTT INR 1.11 (0.83-1.09) H 04/24/19 06:00 Assessment/Plan SEPSIS/ SEPTIC SHOCK MRSA BACTEREMIA + C DIFF CHRONIC RESP FAILURE ANEMIA AZOTEMIA HX MDRO CONTINUE VANCO PER LEVELS VANCO VIA GT CONTACT PRECAUTIONS
[2019-05-02] MEDS: FUROSEMIDE 40 MG/4 ML INJECTABLE VIAL IVPUSH SCH (12:39)
[2019-05-02] MEDS: METOPROLOL TARTRATE 25 MG TABLET (FP) PEG SCH ×2 (12:39→22:01)
--- NOTE | 2019-05-02 14:24 | PN ---
Physical Exam: SUBJECTIVE: Patient seen and examined OBJECTIVE: Vital Signs Period Temp Pulse Resp BP Sys/Okeefe Pulse Ox Last 24 Hr 98 F-98.9 F 62-130 12-24 102-128/39-65 97-100 GENERAL: The patient is awake, alert, and fully oriented, in no acute distress. HEAD: Normal with no signs of trauma. EYES: PERRL, extraocular movements intact, sclera anicteric, conjunctiva clear. No ptosis. ENT: Ears normal, nares patent, oropharynx clear without exudates, moist mucous membranes. NECK: Trachea midline, full range of motion, supple. LUNGS: Breath sounds equal, clear to auscultation bilaterally, no wheezes, no crackles, no accessory muscle use. HEART: Regular rate and rhythm, S1, S2 without murmur, rub or gallop. ABDOMEN: Soft, nontender, nondistended, normoactive bowel sounds, no guarding, no rebound, no hepatosplenomegaly, no masses. EXTREMITIES: 2+ pulses, warm, well-perfused, no edema. NEUROLOGICAL: Cranial nerves II through XII grossly intact. Normal speech, gait not observed. PSYCH: Normal mood, normal affect. SKIN: Warm, dry, normal turgor, no rashes or lesions noted Laboratory Results - last 24 hr 05/01/19 05/01/19 05/02/19 17:43 21:02 05:40 WBC 10.1 H RBC 2.98 L Hgb 8.0 L Hct 24.9 L MCV 83.5 MCH 26.8 MCHC 32.1 RDW 22.0 H Plt Count 130 L MPV 9.5 Absolute Neuts (auto) 8.0 Neutrophils % 79.4 Lymphocytes % 10.9 Monocytes % 4.8 Eosinophils % 4.6 H Basophils % 0.3 Nucleated RBC % 0 Sodium Potassium Chloride Carbon Dioxide Anion Gap BUN Creatinine Est GFR (CKD-EPI)AfAm Est GFR (CKD-EPI)NonAf POC Glucometer 295 244 Random Glucose Calcium Phosphorus Magnesium Total Bilirubin AST ALT Alkaline Phosphatase Total Protein Albumin Random Vancomycin 05/02/19 05/02/19 05/02/19 05:40 06:00 06:04 WBC RBC Hgb Hct MCV MCH MCHC RDW Plt Count MPV Absolute Neuts (auto) Neutrophils % Lymphocytes % Monocytes % Eosinophils % Basophils % Nucleated RBC % Sodium 145 Potassium 4.0 Chloride 116 H Carbon Dioxide 26 Anion Gap 3 L BUN 42.1 H Creatinine 0.6 Est GFR (CKD-EPI)AfAm 101.90 Est GFR (CKD-EPI)NonAf 87.92 POC Glucometer 253 Random Glucose 296 H Calcium 7.5 L Phosphorus 2.7 Magnesium 2.0 Total Bilirubin 0.5 AST 32 ALT 30 Alkaline Phosphatase 265 H Total Protein 4.6 L Albumin 1.2 L Random Vancomycin 21.3 05/02/19 11:12 WBC RBC Hgb Hct MCV MCH MCHC RDW Plt Count MPV Absolute Neuts (auto) Neutrophils % Lymphocytes % Monocytes % Eosinophils % Basophils % Nucleated RBC % Sodium Potassium Chloride Carbon Dioxide Anion Gap BUN Creatinine Est GFR (CKD-EPI)AfAm Est GFR (CKD-EPI)NonAf POC Glucometer 300 Random Glucose Calcium Phosphorus Magnesium Total Bilirubin AST ALT Alkaline Phosphatase Total Protein Albumin Random Vancomycin Active Medications Generic Name Dose Route Start Last Admin Trade Name Freq PRN Reason Stop Dose Admin Amino Acids 30 ml 04/26/19 17:30 05/02/19 08:52 Prosource No Carb Liquid Pkt GT 30 ml BID@0800,1730 [facility] Administration Amiodarone HCl 200 mg 04/29/19 10:00 05/02/19 09:33 Cordarone - PO 200 mg DAILY [facility] Administration Apixaban 5 mg 04/28/19 22:00 05/02/19 09:33 Eliquis - PEG 5 mg BID [facility] Administration Ascorbic Acid 250 mg 04/27/19 10:00 05/02/19 09:33 Vitamin C Oral Solution - GT 250 mg DAILY [facility] Administration Chlorhexidine Gluconate 1 applic 04/22/19 22:00 05/01/19 21:11 Hibiclens For Decolonization - TP 1 applic HS [facility] Administration Collagenase 1 applic 04/27/19 10:00 05/02/19 09:35 Santyl - TP 1 applic DAILY [facility] Administration Protocol Furosemide 40 mg 05/02/19 11:45 05/02/19 12:39 Lasix Injection - IVPUSH 40 mg DAILY [facility] Administration Norepinephrine Bitartrate 8, 500 mls @ 18.75 mls/hr 04/28/19 12:15 05/01/19 16:00 000 mcg/ Dextrose IV 0 mcg/min TITR [facility] 0 mls/hr Titration Protocol 5 MCG/MIN Insulin Aspart 1 vial 04/23/19 22:00 05/02/19 11:14 Novolog Vial Sliding Scale - SQ 6 units ACHS [facility] Administration Protocol Metoprolol Tartrate 5 mg 04/27/19 13:06 05/01/19 21:13 Lopressor Injection - IVPUSH 5 mg Q4H PRN Administration TACHYCARDIA Metoprolol Tartrate 25 mg 05/02/19 11:45 05/02/19 12:39 Lopressor - PEG 25 mg BID [facility] Administration Multi-Ingredient Ointment 1 applic 04/26/19 22:00 05/02/19 09:35 Zinc Oxide TP 1 applic BID [facility] Administration Multivitamins/Minerals 15 ml 04/27/19 10:00 05/02/19 09:33 Certavite-Antioxidant Liquid GT 15 ml DAILY [facility] Administration Nystatin 1 applic 04/24/19 16:14 05/02/19 09:34 Mycostatin Cream - TP 1 applic BID [facility] Administration Pantoprazole Sodium 40 mg 04/24/19 10:00 05/02/19 09:32 Protonix Iv IVPUSH 40 mg BID [facility] Administration Vancomycin HCl 125 mg 04/24/19 18:00 05/02/19 12:39 Vancomycin Oral Solution GT 125 mg Q6HPO [facility] Administration Zinc Sulfate 220 mg 04/27/19 10:00 05/02/19 09:33 Orazinc - GT 220 mg DAILY [facility] Administration ASSESSMENT/PLAN: Patient is a 79 year olf female with PMH of CAD, Afib (on Eliquis), sick sinus syndrome (s/p PPM), DMII, HTN, COPD, remote history of GI bleed, colonic angiodysplasia, sigmoid diverticulosis, internal hemorrhoids, CVA (RUE/LE paralysis, non verbal), chronic respiratory failure (s/p trach-vent dependent), chronic stage 4 sacral ulcer, presenting from [facility] for T 102.3 and Afib with RVR with concern for septic shock with source of pna vs uti vs sacral ulcer. ICU course complicated with GI bleed s/p pRBC and now stable #Neuro stable; no issues #Cardio CAD, afib (on eliquis) HTN, sick sinus syndrome -has not been on pressors for almost 24 hours -will resume lopressor PRN, amiodarone if hemodynamics permit -lasix 40 daily #Endo history of DM ISS BGMS ACHS #GI no longer having GI bleed -c/w protonix 40 BID #ID MRSA bactermia; C diff c/w vancomycin PO; vanc by level #Pulm chronic trach-vent F/E/N not on fluids tube feeds monitor electrolytes dvt ppx: eliquis transfer to floor Problem List - Problems (1) CONOR (acute kidney injury) Code(s): N17.9 - ACUTE KIDNEY FAILURE, UNSPECIFIED (2) Abnormal liver function tests Code(s): R94.5 - ABNORMAL RESULTS OF LIVER FUNCTION STUDIES (3) Atrial fibrillation with RVR Code(s): I48.91 - UNSPECIFIED ATRIAL FIBRILLATION (4) C. difficile diarrhea Code(s): A04.72 - ENTEROCOLITIS D/T CLOSTRIDIUM DIFFICILE, NOT SPCF RECUR Visit type - Emergency Visit Emergency Visit: Yes ED Registration Date: 04/22/19 Care time: The patient presented to the Emergency Department on the above date and was hospitalized for further evaluation of their emergent condition. - New Patient This patient is new to me today: No - Critical Care Critical Care patient: Yes Total Critical Care Time (in minutes): 35 Critical Care Statement: The care of this patient involved high complexity decision making to prevent further life threatening deterioration of the patient 's condition and/or to evaluate & treat vital organ system(s) failure or risk of failure. ATTENDING PHYSICIAN STATEMENT I saw and evaluated the patient. I reviewed the resident's note and discussed the case with the resident. I agree with the resident's findings and plan as documented. SUBJECTIVE: OBJECTIVE: ASSESSMENT AND PLAN:
[2019-05-02] MEDS: CHLORHEXIDINE GLUCONATE 4% CLEANSER FOR DECOLONIZATION TP SCH (22:01)
[2019-05-03] MEDS: VANCOMYCIN 250 MG/5 ML ORAL SOLUTION GT SCH ×4 (00:01→17:26)
[2019-05-03] MEDS: INSULIN SLIDING SCALE (NOVOLOG) 1 VIAL SQ SCH ×3 (06:04→16:39)
[2019-05-03 06:58] LABS: HEMATOCRIT 23.7 % (32.4-45.2); HEMOGLOBIN 7.8 GM/dL (10.7-15.3); MCH 27.3 pg (25.7-33.7); MCHC 32.7 g/dl (32.0-36.0); MEAN CELL VOLUME 83.4 fl (80-96); MEAN PLT VOLUME 9.5 fl (7.5-11.1); PLATELET COUNT 134 K/MM3 (134-434); RBC 2.84 M/mm3 (3.60-5.2); RDW 22.1 % (11.6-15.6); WHITE BLOOD COUNT 10.4 K/mm3 (4.0-10.0)
--- NOTE | 2019-05-03 07:07 | PN ---
Progress Note, Physician Chief Complaint: AWAKE EVENTS REVIEWED NON-VERBAL APHASIA WITH GTUBE - Current Medication List Current Medications: Active Medications Amino Acids (Prosource No Carb Liquid Pkt) 30 ml GT BID@0800,1730 [facility] Last Admin: 05/02/19 17:32 Dose: 30 ml Amiodarone HCl (Cordarone -) 200 mg PO DAILY [facility] Last Admin: 05/02/19 09:33 Dose: 200 mg Apixaban (Eliquis -) 5 mg PEG BID [facility] Last Admin: 05/02/19 22:01 Dose: 5 mg Ascorbic Acid (Vitamin C Oral Solution -) 250 mg GT DAILY [facility] Last Admin: 05/02/19 09:33 Dose: 250 mg Chlorhexidine Gluconate (Hibiclens For Decolonization -) 1 applic TP HS [facility] Last Admin: 05/02/19 22:01 Dose: 1 applic Collagenase (Santyl -) 1 applic TP DAILY [facility]; Protocol Last Admin: 05/02/19 09:35 Dose: 1 applic Furosemide (Lasix Injection -) 40 mg IVPUSH DAILY [facility] Last Admin: 05/02/19 12:39 Dose: 40 mg Insulin Aspart (Novolog Vial Sliding Scale -) 1 vial SQ ACHS [facility]; Protocol Last Admin: 05/03/19 06:04 Dose: 2 units Metoprolol Tartrate (Lopressor Injection -) 5 mg IVPUSH Q4H PRN PRN Reason: TACHYCARDIA Last Admin: 05/01/19 21:13 Dose: 5 mg Metoprolol Tartrate (Lopressor -) 25 mg PEG BID [facility] Last Admin: 05/02/19 22:01 Dose: 25 mg Multi-Ingredient Ointment (Zinc Oxide) 1 applic TP BID [facility] Last Admin: 05/02/19 23:47 Dose: 1 applic Multivitamins/Minerals (Certavite-Antioxidant Liquid) 15 ml GT DAILY [facility] Last Admin: 05/02/19 09:33 Dose: 15 ml Nystatin (Mycostatin Cream -) 1 applic TP BID [facility] Last Admin: 05/02/19 22:01 Dose: 1 applic Pantoprazole Sodium (Protonix Iv) 40 mg IVPUSH BID [facility] Last Admin: 05/02/19 22:01 Dose: 40 mg Vancomycin HCl (Vancomycin Oral Solution) 125 mg GT Q6HPO [facility] Last Admin: 05/03/19 05:58 Dose: 125 mg Zinc Sulfate (Orazinc -) 220 mg GT DAILY [facility] Last Admin: 05/02/19 09:33 Dose: 220 mg - Objective Vital Signs: Vital Signs Temperature 98 F 05/03/19 06:00 Pulse Rate 60 05/03/19 06:00 Respiratory Rate 16 05/03/19 06:00 Blood Pressure 112/52 L 05/03/19 06:00 O2 Sat by Pulse Oximetry (%) 98 05/02/19 19:36 Constitutional: Yes: Mild Distress Cardiovascular: Yes: Pulse Irregular Respiratory: Yes: Mechanically Ventilated (TRACHEOSTOMY) Gastrointestinal: Yes: Soft (GTUBE) ...Rectal Exam: Yes: Other (RECTAL TUBE) Genitourinary: Yes: [place] Present Musculoskeletal: Yes: Muscle Weakness Integumentary: Yes: Venous Stasis Changes Neurological: Yes: Other Labs: INR, PTT INR 1.11 (0.83-1.09) H 04/24/19 06:00 Problem List - Problems (1) History of CVA (cerebrovascular accident) Code(s): Z86.73 - PRSNL HX OF TIA (TIA), AND CEREB INFRC W/O RESID DEFICITS (2) CONOR (acute kidney injury) Code(s): N17.9 - ACUTE KIDNEY FAILURE, UNSPECIFIED (3) Anemia Code(s): D64.9 - ANEMIA, UNSPECIFIED Qualifiers: Iron deficiency anemia type: chronic blood loss (4) Atrial fibrillation with RVR Code(s): I48.91 - UNSPECIFIED ATRIAL FIBRILLATION (5) NSTEMI (non-ST elevated myocardial infarction) Code(s): I21.4 - NON-ST ELEVATION (NSTEMI) MYOCARDIAL INFARCTION (6) Septic shock Code(s): A41.9 - SEPSIS, UNSPECIFIED ORGANISM; R65.21 - SEVERE SEPSIS WITH SEPTIC SHOCK (7) Severe sepsis Code(s): A41.9 - SEPSIS, UNSPECIFIED ORGANISM; R65.20 - SEVERE SEPSIS WITHOUT SEPTIC SHOCK (8) Stage 4 skin ulcer of sacral region Code(s): L98.429 - NON-PRESSURE CHRONIC ULCER OF BACK WITH UNSPECIFIED SEVERITY (9) Diastolic dysfunction Code(s): I51.89 - OTHER ILL-DEFINED HEART DISEASES (10) Guaiac + stool Code(s): R19.5 - OTHER FECAL ABNORMALITIES (11) Sacral decubitus ulcer Code(s): L89.159 - PRESSURE ULCER OF SACRAL REGION, UNSPECIFIED STAGE Qualifiers: Pressure injury stage: stage 4 Qualified Code(s): L89.154 - Pressure ulcer of sacral region, stage 4 (12) Ventilator dependent Code(s): Z99.11 - DEPENDENCE ON RESPIRATOR [VENTILATOR] STATUS (13) Atrial fibrillation Code(s): I48.91 - UNSPECIFIED ATRIAL FIBRILLATION Qualifiers: Atrial fibrillation type: permanent Qualified Code(s): I48.21 - Permanent atrial fibrillation (14) COPD (chronic obstructive pulmonary disease) Code(s): J44.9 - CHRONIC OBSTRUCTIVE PULMONARY DISEASE, UNSPECIFIED Qualifiers: COPD type: unspecified COPD Qualified Code(s): J44.9 - Chronic obstructive pulmonary disease, unspecified (15) Diabetes mellitus Code(s): E11.9 - TYPE 2 DIABETES MELLITUS WITHOUT COMPLICATIONS Qualifiers: Diabetes mellitus type: type 2 Diabetes mellitus salvage determiner insulin use: without salvage determiner use Diabetes mellitus complication status: without complication Qualified Code(s): E11.9 - Type 2 diabetes mellitus without complications (16) H/O mitral valve replacement Code(s): Z95.2 - PRESENCE OF PROSTHETIC HEART VALVE (17) Lung nodule Code(s): R91.1 - SOLITARY PULMONARY NODULE (18) Pacemaker Code(s): Z95.0 - PRESENCE OF CARDIAC PACEMAKER (19) Sacral decubitus ulcer, stage III Code(s): L89.153 - PRESSURE ULCER OF SACRAL REGION, STAGE 3 Assessment/Plan OFFLOAD SACRAL ULCER WITH PILLOWS AND FREQUENT TURNING OPTIMIZE NUTRITION FOR BETTER HEALING COLLAGENASE TO ULCER AFTER SALINE CLEANSE DAILY ABX PER ID ON VANCOMYCIN VENT DEPENDENT UNABLE TO WEAN OFF OVERALL QUALITY OF LIFE IS POOR ADVANCED DIRECTIVES, PALLIATIVE CARE CONSULT [facility] WHEN MEDICALLY CLEARED FROM ICU IRON SUCROSE IV 300MG X 1 MONITOR LABS/ KEEP HEMOGLOBIN ABOVE 8.0
[2019-05-03 07:43] LABS: ALBUMIN 1.2 g/dl (3.4-5.0); BILIRUBIN,TOTAL 0.5 mg/dL (0.2-1); BLOOD UREA NITROGEN 46.1 mg/dL (7-18); CALCIUM 7.8 mg/dL (8.5-10.1); CREATININE 0.5 mg/dL (0.55-1.3); MAGNESIUM 1.9 mg/dL (1.8-2.4); PHOSPHOROUS 2.6 mg/dL (2.5-4.9); POTASSIUM 3.8 mmol/L (3.5-5.1); TOT PROT 4.6 g/dl (6.4-8.2)
[2019-05-03] MEDS: AMINO ACIDS/PROTEIN HYDROLYS 30 ML LIQUID.PKT GT SCH ×2 (08:00→17:26)
[2019-05-03] MEDS ORDERED: MAGNESIUM SULF 50% (8.12 MEQ/2 ML-1 GM VIAL) IVPB ONE (08:17)
--- NOTE | 2019-05-03 08:33 | PN ---
Physical Exam: SUBJECTIVE: Patient seen this morning, no events overnight. OBJECTIVE: Vital Signs Period Temp Pulse Resp BP Sys/[place]keefe Pulse Ox Last 24 Hr 97.7 F-98.6 F 60-108 15-24 107-128/39-65 98-100 GENERAL: The patient is awake, does not speak HEAD: Normal with no signs of trauma. EYES: PERRL ENT: trach LUNGS: Breath sounds equal, clear to auscultation bilaterally, HEART: Regular rate and rhythm, S1, S2 without murmur, rub or gallop. ABDOMEN: Soft, nontender, nondistended, normoactive bowel sounds, EXTREMITIES: 2+ pulses, warm, well-perfused, no edema. SKIN: large sacral ulcer, not examined today CBC, BMP 05/03/19 05:45 05/03/19 05:45 Active Medications Amino Acids (Prosource No Carb Liquid Pkt) 30 ml GT BID@0800,1730 [facility] Last Admin: 05/03/19 08:00 Dose: 30 ml Amiodarone HCl (Cordarone -) 200 mg PO DAILY [facility] Last Admin: 05/02/19 09:33 Dose: 200 mg Apixaban (Eliquis -) 5 mg PEG BID [facility] Last Admin: 05/02/19 22:01 Dose: 5 mg Ascorbic Acid (Vitamin C Oral Solution -) 250 mg GT DAILY [facility] Last Admin: 05/02/19 09:33 Dose: 250 mg Chlorhexidine Gluconate (Hibiclens For Decolonization -) 1 applic TP HS [facility] Last Admin: 05/02/19 22:01 Dose: 1 applic Collagenase (Santyl -) 1 applic TP DAILY [facility]; Protocol Last Admin: 05/02/19 09:35 Dose: 1 applic Furosemide (Lasix Injection -) 40 mg IVPUSH DAILY [facility] Last Admin: 05/02/19 12:39 Dose: 40 mg Insulin Aspart (Novolog Vial Sliding Scale -) 1 vial SQ ACHS [facility]; Protocol Last Admin: 05/03/19 06:04 Dose: 2 units Metoprolol Tartrate (Lopressor Injection -) 5 mg IVPUSH Q4H PRN PRN Reason: TACHYCARDIA Last Admin: 05/01/19 21:13 Dose: 5 mg Metoprolol Tartrate (Lopressor -) 25 mg PEG BID [facility] Last Admin: 05/02/19 22:01 Dose: 25 mg Multi-Ingredient Ointment (Zinc Oxide) 1 applic TP BID [facility] Last Admin: 05/02/19 23:47 Dose: 1 applic Multivitamins/Minerals (Certavite-Antioxidant Liquid) 15 ml GT DAILY [facility] Last Admin: 05/02/19 09:33 Dose: 15 ml Nystatin (Mycostatin Cream -) 1 applic TP BID [facility] Last Admin: 05/02/19 22:01 Dose: 1 applic Pantoprazole Sodium (Protonix Iv) 40 mg IVPUSH BID [facility] Last Admin: 05/02/19 22:01 Dose: 40 mg Vancomycin HCl (Vancomycin Oral Solution) 125 mg GT Q6HPO [facility] Last Admin: 05/03/19 05:58 Dose: 125 mg Zinc Sulfate (Orazinc -) 220 mg GT DAILY [facility] Last Admin: 05/02/19 09:33 Dose: 220 mg ASSESSMENT/PLAN: Patient is a 79 year olf female with PMH of CAD, Afib (on Eliquis), sick sinus syndrome (s/p PPM), DMII, HTN, COPD, remote history of GI bleed, colonic angiodysplasia, sigmoid diverticulosis, internal hemorrhoids, CVA (RUE/LE paralysis, non verbal), chronic respiratory failure (s/p trach-vent dependent), chronic stage 4 sacral ulcer, presenting from [facility] for T 102.3 and Afib with RVR with concern for septic shock with source of pna vs uti vs sacral ulcer. ICU course complicated with GI bleed s/p pRBC and now stable #Neuro - stable; awake #Cardio -CAD, afib (on eliquis) HTN, sick sinus syndrome -metoprolol 25 bid, amiodarone 200 daily -lasix 40 daily - followed by Dr. Gaines #Pulm - chronic trach-vent #GI - no longer having GI bleed -c/w protonix 40 BID - continue feeds - followed by Dr. Hernandez #ID - MRSA bactermia; C diff - c/w vancomycin PO; vanc by level - PO vanco 125 mg q6h - followed by Dr. Chau #Nephro - currently at baseline, monitor cr - followed by Dr. Aguirre #Endo -history of DM -ISS -BGMS ACHS #Skin - sacral wound, continue wound care - turn and position to offload F/E/N not on fluids tube feeds monitor electrolytes, repleted Magnesium today dvt ppx: eliquis Dispo: continue family discussion, can be monitored on the floors Visit type - Emergency Visit Emergency Visit: No - New Patient This patient is new to me today: No - Critical Care Critical Care patient: Yes Total Critical Care Time (in minutes): 40 Critical Care Statement: The care of this patient involved high complexity decision making to prevent further life threatening deterioration of the patient 's condition and/or to evaluate & treat vital organ system(s) failure or risk of failure. ATTENDING PHYSICIAN STATEMENT I saw and evaluated the patient. I reviewed the resident's note and discussed the case with the resident. I agree with the resident's findings and plan as documented. SUBJECTIVE: OBJECTIVE: ASSESSMENT AND PLAN:
[2019-05-03] MEDS ORDERED: PT OWN MED DRAWER 7, Y5N ONE (09:02)
[2019-05-03] MEDS: MULTIVIT-MINERALS ORAL LIQUID GT SCH (09:10)
[2019-05-03] MEDS: PANTOPRAZOLE SODIUM 40 MG VIAL IVPUSH SCH (09:10)
[2019-05-03] MEDS: APIXABAN 5 MG TABLET PEG SCH (09:13)
[2019-05-03] MEDS: FUROSEMIDE 40 MG/4 ML INJECTABLE VIAL IVPUSH SCH (09:13)
[2019-05-03] MEDS: AMIODARONE HCL 200 MG TABLET PO SCH (09:13)
[2019-05-03] MEDS: ZINC SULFATE 220 MG CAPSULE (FP) GT SCH (09:14)
[2019-05-03] MEDS: METOPROLOL TARTRATE 25 MG TABLET (FP) PEG SCH ×2 (09:14→22:30)
[2019-05-03] MEDS: ASCORBIC ACID 500 MG/5 ML UNIT DOSE CUP GT SCH (09:17)
[2019-05-03] MEDS: ZINC OXIDE 20% TOPICAL OINTMENT 30 GM TUBE TP SCH (09:18)
[2019-05-03] MEDS: NYSTATIN 100,000 UNIT/GM TOPICAL CREAM 15 GM TUBE TP SCH (09:18)
--- NOTE | 2019-05-03 10:33 | PN ---
Teaching Attending Note Name of Resident: Paola Chen ATTENDING PHYSICIAN STATEMENT I saw and evaluated the patient. I reviewed the resident's note and discussed the case with the resident. I agree with the resident's findings and plan as documented. SUBJECTIVE: Patient seen and examined in the ICU. Vented, poorly responsive. Remains off pressors. OBJECTIVE: Intake & Output 04/30/19 05/01/19 05/02/19 05/03/19 23:59 23:59 23:59 23:59 Intake Total 854 3361 3340 1720 Output Total 025 858 2616 400 Balance 154 2411 940 1320 Weight 179 lb 11.2 oz 180 lb 182 lb 6 oz 182 lb 11.2 oz Last Vital Signs Temp Pulse Resp BP Pulse Ox 98 F 60 16 116/48 L 99 05/03/19 06:00 05/03/19 08:00 05/03/19 09:00 05/03/19 08:00 05/03/19 09:00 Active Medications Amino Acids (Prosource No Carb Liquid Pkt) 30 ml GT BID@0800,1730 [facility] Last Admin: 05/03/19 08:00 Dose: 30 ml Amiodarone HCl (Cordarone -) 200 mg PO DAILY [facility] Last Admin: 05/03/19 09:13 Dose: 200 mg Apixaban (Eliquis -) 5 mg PEG BID [facility] Last Admin: 05/03/19 09:13 Dose: 5 mg Ascorbic Acid (Vitamin C Oral Solution -) 250 mg GT DAILY [facility] Last Admin: 05/03/19 09:17 Dose: 250 mg Chlorhexidine Gluconate (Hibiclens For Decolonization -) 1 applic TP HS [facility] Last Admin: 05/02/19 22:01 Dose: 1 applic Collagenase (Santyl -) 1 applic TP DAILY [facility]; Protocol Last Admin: 05/02/19 09:35 Dose: 1 applic Furosemide (Lasix Injection -) 40 mg IVPUSH DAILY [facility] Last Admin: 05/03/19 09:13 Dose: 40 mg Iron Sucrose 300 mg/ Sodium (Chloride) 250 mls @ 166.667 mls/hr IVPB ONCE ONE Stop: 05/03/19 12:29 Insulin Aspart (Novolog Vial Sliding Scale -) 1 vial SQ ACHS [facility]; Protocol Last Admin: 05/03/19 06:04 Dose: 2 units Metoprolol Tartrate (Lopressor Injection -) 5 mg IVPUSH Q4H PRN PRN Reason: TACHYCARDIA Last Admin: 05/01/19 21:13 Dose: 5 mg Metoprolol Tartrate (Lopressor -) 25 mg PEG BID [facility] Last Admin: 05/03/19 09:14 Dose: 25 mg Multi-Ingredient Ointment (Zinc Oxide) 1 applic TP BID [facility] Last Admin: 05/03/19 09:18 Dose: 1 applic Multivitamins/Minerals (Certavite-Antioxidant Liquid) 15 ml GT DAILY [facility] Last Admin: 05/03/19 09:10 Dose: 15 ml Nystatin (Mycostatin Cream -) 1 applic TP BID [facility] Last Admin: 05/03/19 09:18 Dose: 1 applic Pantoprazole Sodium (Protonix Iv) 40 mg IVPUSH BID [facility] Last Admin: 05/03/19 09:10 Dose: 40 mg Vancomycin HCl (Vancomycin Oral Solution) 125 mg GT Q6HPO [facility] Last Admin: 05/03/19 05:58 Dose: 125 mg Zinc Sulfate (Orazinc -) 220 mg GT DAILY [facility] Last Admin: 05/03/19 09:14 Dose: 220 mg Gen: vented, poorly responsive Heart: irregular Lung: scattered rhonchi Abd: soft, nontender Ext: + edema Back: stage IV sacral ulcer with granulation tissue Laboratory Results - last 24 hr 05/02/19 05/02/19 05/02/19 11:12 17:20 22:11 WBC RBC Hgb Hct MCV MCH MCHC RDW Plt Count MPV Sodium Potassium Chloride Carbon Dioxide Anion Gap BUN Creatinine Est GFR (CKD-EPI)AfAm Est GFR (CKD-EPI)NonAf POC Glucometer 300 302 209 Random Glucose Calcium Phosphorus Magnesium Total Bilirubin AST ALT Alkaline Phosphatase Total Protein Albumin Random Vancomycin 05/03/19 05/03/19 05/03/19 05:45 05:45 05:45 WBC 10.4 H RBC 2.84 L Hgb 7.8 L Hct 23.7 L MCV 83.4 MCH 27.3 MCHC 32.7 RDW 22.1 H Plt Count 134 MPV 9.5 Sodium 146 H Potassium 3.8 Chloride 113 H Carbon Dioxide 26 Anion Gap 7 L BUN 46.1 H Creatinine 0.5 L Est GFR (CKD-EPI)AfAm 108.20 Est GFR (CKD-EPI)NonAf 93.36 POC Glucometer Random Glucose 176 H Calcium 7.8 L Phosphorus 2.6 Magnesium 1.9 Total Bilirubin 0.5 AST 26 ALT 28 Alkaline Phosphatase 236 H Total Protein 4.6 L Albumin 1.2 L Random Vancomycin 16.1 05/03/19 05:48 WBC RBC Hgb Hct MCV MCH MCHC RDW Plt Count MPV Sodium Potassium Chloride Carbon Dioxide Anion Gap BUN Creatinine Est GFR (CKD-EPI)AfAm Est GFR (CKD-EPI)NonAf POC Glucometer 170 Random Glucose Calcium Phosphorus Magnesium Total Bilirubin AST ALT Alkaline Phosphatase Total Protein Albumin Random Vancomycin ASSESSMENT AND PLAN: Resolved Septic Shock UTI Pneumonia Suspected Sacral Decubitus Ulcer Infection GI Bleed likely Upper Acute Blood Loss Anemia Atrial Fibrillation with RVR CAD COPD HTN DM h/o CVA - Monitor off pressors - ABX per ID - PPI - Normal transfusion thresholds - rate control - continue volume assist control - DVT/GI prophylaxis - Vent floor Dr Stover
--- NOTE | 2019-05-03 10:53 | PN ---
Progress Note (short form) - Note Progress Note: Renal follow up for CONOR/CKD Seen and examined in the ICU on vent via trach, FiO2 is 40% On levophed 1mcg no fevers Vital Signs Temperature 98.3 F 05/01/19 06:00 Pulse Rate 66 05/01/19 08:00 Respiratory Rate 20 05/01/19 08:00 Blood Pressure 118/40 L 05/01/19 08:00 O2 Sat by Pulse Oximetry (%) 98 04/30/19 19:36 Intake & Output 04/28/19 04/29/19 04/30/19 05/01/19 23:59 23:59 23:59 23:59 Intake Total 2704.4 2671 854 1362 Output Total 950 1400 700 350 Balance 1754.4 6595 908 7419 Weight 81.1 kg 82.055 kg 81.511 kg 81.647 kg NAD on vent via trach RRR DEc BS bilaterally soft NT/ND ++ edema in LE and UE CBC, BMP 05/01/19 06:00 05/01/19 06:00 Current Medications Amino Acids (Prosource No Carb Liquid Pkt) 30 ml GT BID@0800,1730 [facility] Last Admin: 05/01/19 10:10 Dose: 30 ml Amiodarone HCl (Cordarone -) 200 mg PO DAILY [facility] Last Admin: 05/01/19 10:11 Dose: 200 mg Apixaban (Eliquis -) 5 mg PEG BID [facility] Last Admin: 05/01/19 10:11 Dose: 5 mg Ascorbic Acid (Vitamin C Oral Solution -) 250 mg GT DAILY [facility] Last Admin: 05/01/19 11:19 Dose: 250 mg Chlorhexidine Gluconate (Hibiclens For Decolonization -) 1 applic TP HS [facility] Last Admin: 04/30/19 21:40 Dose: 1 applic Collagenase (Santyl -) 1 applic TP DAILY [facility]; Protocol Last Admin: 05/01/19 10:13 Dose: 1 applic Norepinephrine Bitartrate 8, (000 mcg/ Dextrose) 500 mls @ 18.75 mls/hr IV TITR [facility]; Protocol Last Titration: 04/30/19 19:00 Dose: 2 mcg/min, 7.5 mls/hr Insulin Aspart (Novolog Vial Sliding Scale -) 1 vial SQ ACHS [facility]; Protocol Last Admin: 05/01/19 11:20 Dose: 6 units Metoprolol Tartrate (Lopressor Injection -) 5 mg IVPUSH Q4H PRN PRN Reason: TACHYCARDIA Last Admin: 04/30/19 02:25 Dose: 5 mg Multi-Ingredient Ointment (Zinc Oxide) 1 applic TP BID [facility] Last Admin: 05/01/19 10:12 Dose: 1 applic Multivitamins/Minerals (Certavite-Antioxidant Liquid) 15 ml GT DAILY [facility] Last Admin: 05/01/19 11:19 Dose: 15 ml Nystatin (Mycostatin Cream -) 1 applic TP BID [facility] Last Admin: 05/01/19 10:13 Dose: 1 applic Pantoprazole Sodium (Protonix Iv) 40 mg IVPUSH BID [facility] Last Admin: 05/01/19 10:09 Dose: 40 mg Vancomycin HCl (Vancomycin Oral Solution) 125 mg GT Q6HPO [facility] Last Admin: 05/01/19 06:09 Dose: 125 mg Zinc Sulfate (Orazinc -) 220 mg GT DAILY [facility] Last Admin: 05/01/19 10:12 Dose: 220 mg 79-year-old female with history of chronic respiratory failure, hypertension, coronary artery disease, chronic atrial fibrillation, sick sinus syndrome, type 2 diabetes mellitus, hypertension, GI bleed, recent polymicrobial sepsis, cerebrovascular accident, status post chronic ventilatory support through tracheostomy and chronic kidney failure 1. CONOR now resolved 2. Hypernatremia 3. Sepsis/Septic shock 4. Respiratory failure on Vent 5. Hypokalemia Renal function improved and stable clinically unchanged continue free water with feeds pt as significant edema/3rd spacing in setting of poor nutrition status and IV fluids. consider low dose loop diuretics for edema mangement will followup as needed please call with any questions or concerns. Tashi Aguirre DO
[2019-05-03] MEDS ORDERED: IRON SUCROSE INJECTION 300 MG in SODIUM CHLORIDE 235 ML IVPB ONE (11:00)
--- NOTE | 2019-05-03 11:01 | PN ---
Progress Note, Physician History of Present Illness: Remains off pressors. 40% PEEP 5. Increased anasarca and weight gain since admission, poorly responsive. - Current Medication List Current Medications: Active Medications Amino Acids (Prosource No Carb Liquid Pkt) 30 ml GT BID@0800,1730 [facility] Last Admin: 05/03/19 08:00 Dose: 30 ml Amiodarone HCl (Cordarone -) 200 mg PO DAILY [facility] Last Admin: 05/03/19 09:13 Dose: 200 mg Apixaban (Eliquis -) 5 mg PEG BID [facility] Last Admin: 05/03/19 09:13 Dose: 5 mg Ascorbic Acid (Vitamin C Oral Solution -) 250 mg GT DAILY [facility] Last Admin: 05/03/19 09:17 Dose: 250 mg Chlorhexidine Gluconate (Hibiclens For Decolonization -) 1 applic TP HS [facility] Last Admin: 05/02/19 22:01 Dose: 1 applic Collagenase (Santyl -) 1 applic TP DAILY [facility]; Protocol Last Admin: 05/02/19 09:35 Dose: 1 applic Furosemide (Lasix Injection -) 40 mg IVPUSH DAILY [facility] Last Admin: 05/03/19 09:13 Dose: 40 mg Iron Sucrose 300 mg/ Sodium (Chloride) 250 mls @ 166.667 mls/hr IVPB ONCE ONE Stop: 05/03/19 12:29 Insulin Aspart (Novolog Vial Sliding Scale -) 1 vial SQ ACHS [facility]; Protocol Last Admin: 05/03/19 06:04 Dose: 2 units Metoprolol Tartrate (Lopressor Injection -) 5 mg IVPUSH Q4H PRN PRN Reason: TACHYCARDIA Last Admin: 05/01/19 21:13 Dose: 5 mg Metoprolol Tartrate (Lopressor -) 25 mg PEG BID [facility] Last Admin: 05/03/19 09:14 Dose: 25 mg Multi-Ingredient Ointment (Zinc Oxide) 1 applic TP BID [facility] Last Admin: 05/03/19 09:18 Dose: 1 applic Multivitamins/Minerals (Certavite-Antioxidant Liquid) 15 ml GT DAILY [facility] Last Admin: 05/03/19 09:10 Dose: 15 ml Nystatin (Mycostatin Cream -) 1 applic TP BID [facility] Last Admin: 05/03/19 09:18 Dose: 1 applic Pantoprazole Sodium (Protonix Iv) 40 mg IVPUSH BID [facility] Last Admin: 03/01/20 09:10 Dose: 40 mg Vancomycin HCl (Vancomycin Oral Solution) 125 mg GT Q6HPO [facility] Last Admin: 05/03/19 05:58 Dose: 125 mg Zinc Sulfate (Orazinc -) 220 mg GT DAILY [facility] Last Admin: 05/03/19 09:14 Dose: 220 mg - Objective Vital Signs: Vital Signs Temperature 98 F 05/03/19 06:00 Pulse Rate 60 05/03/19 08:00 Respiratory Rate 20 05/03/19 10:53 Blood Pressure 116/48 L 05/03/19 08:00 O2 Sat by Pulse Oximetry (%) 99 05/03/19 09:00 Constitutional: Yes: No Distress, Calm Neck: Yes: Other (Tracheostomy) Cardiovascular: Yes: Regular Rate and Rhythm Respiratory: Yes: Mechanically Ventilated Gastrointestinal: Yes: Normal Bowel Sounds, Soft, Other (PEG in place) Genitourinary: Yes: [place] Present Edema: Yes Edema: LUE: 2+, RUE: 2+, LLE: 2+, RLE: 2+ Labs: CBC, BMP 05/03/19 05:45 05/03/19 05:45 INR, PTT INR 1.11 (0.83-1.09) H 04/24/19 06:00 - ....Imaging EKG: Report Reviewed (Tele: A-paced) Problem List - Problems (1) Anemia Code(s): D64.9 - ANEMIA, UNSPECIFIED Qualifiers: Iron deficiency anemia type: chronic blood loss (2) C. difficile diarrhea Code(s): A04.72 - ENTEROCOLITIS D/T CLOSTRIDIUM DIFFICILE, NOT SPCF RECUR (3) Septic shock Code(s): A41.9 - SEPSIS, UNSPECIFIED ORGANISM; R65.21 - SEVERE SEPSIS WITH SEPTIC SHOCK (4) Stage 4 skin ulcer of sacral region Code(s): L98.429 - NON-PRESSURE CHRONIC ULCER OF BACK WITH UNSPECIFIED SEVERITY (5) A-fib Code(s): I48.91 - UNSPECIFIED ATRIAL FIBRILLATION Qualifiers: Atrial fibrillation type: longstanding persistent Qualified Code(s): I48.11 - Longstanding persistent atrial fibrillation (6) Angiodysplasia of colon with hemorrhage Code(s): K55.21 - ANGIODYSPLASIA OF COLON WITH HEMORRHAGE (7) CAD (coronary artery disease) Code(s): I25.10 - ATHSCL HEART DISEASE OF [place] CORONARY ARTERY W/O ANG PCTRS Qualifiers: Coronary Disease-Associated Artery/Lesion type: [place] artery [place] vs. transplanted heart: [place] heart Associated angina: without angina Qualified Code(s): I25.10 - Atherosclerotic heart disease of [place] coronary artery without angina pectoris (8) CVA (cerebral vascular accident) Code(s): I63.9 - CEREBRAL INFARCTION, UNSPECIFIED Qualifiers: CVA mechanism: embolism (9) Demand ischemia Code(s): I24.8 - OTHER FORMS OF ACUTE ISCHEMIC HEART DISEASE (10) Diabetes mellitus Code(s): E11.9 - TYPE 2 DIABETES MELLITUS WITHOUT COMPLICATIONS Qualifiers: Diabetes mellitus type: type 2 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: with termite exterminator helper use Diabetes mellitus complication status: with hyperglycemia Qualified Code(s): E11.65 - Type 2 diabetes mellitus with hyperglycemia; 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 (11) Diastolic dysfunction Code(s): I51.89 - OTHER ILL-DEFINED HEART DISEASES (12) Elevated troponin I level Code(s): R74.8 - ABNORMAL LEVELS OF OTHER SERUM ENZYMES (13) GIB (gastrointestinal bleeding) Code(s): K92.2 - GASTROINTESTINAL HEMORRHAGE, UNSPECIFIED Qualifiers: GI bleed type/associated pathology: unspecified gastrointestinal hemorrhage type Qualified Code(s): K92.2 - Gastrointestinal hemorrhage, unspecified (14) Hemiparesis and other late effects of cerebrovascular accident Code(s): I69.359 - HEMIPLGA FOLLOWING CEREBRAL INFARCTION AFFECTING UNSP SIDE; I69.398 - OTHER SEQUELAE OF CEREBRAL INFARCTION (15) S/P mitral valve repair Code(s): Z98.890 - OTHER SPECIFIED POSTPROCEDURAL STATES (16) Ventilator dependent Code(s): Z99.11 - DEPENDENCE ON RESPIRATOR [VENTILATOR] STATUS Assessment/Plan ASSESSMENT: 1. UTI, PNA, c. diff colitis, sacral decub infxn, septic shock, clinically resolving 2. CAD with evidence of demand ischemic injury angina pectoris 3. Diastolic LV dysfunction with clinical class 0 NYHA classification LV failure 4. Paroxysmal atrial fibrillation with RVR currently in sinus rhythm- atrial pacing [id number] score of 9 on DOAC's/Eliquis 5. Sick sinus syndrome post PPM 6. Post mitral valve repair 7. History of CVA 8. Chronic respiratory failure on mechanical ventilation post tracheostomy 9. HTN 10. Hypercholesterolemia 11. COPD 12. Hypernatremia resolved 13. Hypokalemia resolved 14. Pre-renal azotemia 15. Acute blood loss anemia with history of gastrointestinal bleed 16. Sacral decubitus ulcer PLAN: 1. Antibiotics with f/u C&S as per the primary team 2. Monitor off pressors 3. Resumed Lopressor 25 bid with uptitration as hemodynamics tolerate 4. Continue Amiodarone 200 mg daily 5. Add ACEI or ARBS unless contraindicated, hemodynamics permitting 6. Continue Eliquis 5 bid with close monitoring of Hg, transfuse to maintain Hg equal or > 8.0, protonix 7. No intervention indicated for the above noted elevated Troponin I level consistent with demand ischemia 8. Diuresis as needed to keep even
[2019-05-03] MEDS: COLLAGENASE CLOSTRIDIUM HIST. 30 GRAMS TUBE TP SCH (11:37)
[2019-05-03] MEDS ORDERED: VANCOMYCIN 1 GRAM (PRE-DOCKED) 1,000 MG/250 ML BAG IVPB ONE (14:00)
[2019-05-03] MEDS ORDERED: FUROSEMIDE 40 MG/4 ML INJECTABLE VIAL IVPUSH ONE (19:17)
[2019-05-03] MEDS ORDERED: METOPROLOL TARTRATE 5 MG/5 ML VIAL IVPB PRN (19:43)
[2019-05-03] MEDS ORDERED: ALBUTEROL SO4 2.5/IPRATROPIUM 0.5 INH SOL 3 ML VIAL.NEB. NEB ONE (20:31)
--- NOTE | 2019-05-03 20:55 | HOSP ---
Subjective - Review of Symptoms Events since last encounter: Hospitalist Encounter Notified by the RN that the patient is in respiratory distress, patient is Trach - Vent Dependent. Was asked to assess. Subjective: Arrived to bedside, patient is non-verbal- at baseline. Lung waller diminished bilaterally, patient using intercostal accessory muscles, increased labored breathing. PE performed see EMR Pulmonary: Yes: Dyspnea Physical Examination Vital Signs: Vital Signs Temperature 98 F 05/03/19 10:00 Pulse Rate 60 05/03/19 16:00 Respiratory Rate 23 H 05/03/19 16:00 Blood Pressure 126/52 L 05/03/19 16:00 O2 Sat by Pulse Oximetry (%) 99 05/03/19 09:57 Constitutional: Yes: Severe Distress, Other (non-verbal- at baseline) Eyes: Yes: Conjunctiva Clear, PERRL HENT: Yes: WNL, Atraumatic, Normocephalic Neck: Yes: Supple, Other (trach-vent dependent) Cardiovascular: Yes: Regular Rate and Rhythm, S1, S2 Respiratory: Yes: Accessory Muscle Use, Diminished, Mechanically Ventilated ( Trach dependent), Rhonchi, Tachypnea Gastrointestinal: Yes: Normal Bowel Sounds, Soft, Other (G-Tube) ...Rectal Exam: Yes: Other (Rectal Tube) Renal/: Yes: [place] Present Breast(s): Yes: WNL Edema: Yes (Anasarca) Edema: LUE: 3+, RUE: 3+, LLE: 3+, RLE: 3+ Peripheral Pulses WNL: Yes Integumentary: Yes: Pressure Ulcer (Sacrum- chronic stage 4) Neurological: Yes: Aphasia, Pre-Existing Deficit Labs: CBC, BMP 05/03/19 05:45 05/03/19 05:45 Laboratory Results - last 24 hr 05/03/19 05/03/19 05/03/19 05:45 05:45 05:45 WBC 10.4 H RBC 2.84 L Hgb 7.8 L Hct 23.7 L MCV 83.4 MCH 27.3 MCHC 32.7 RDW 22.1 H Plt Count 134 MPV 9.5 Sodium 146 H Potassium 3.8 Chloride 113 H Carbon Dioxide 26 Anion Gap 7 L BUN 46.1 H Creatinine 0.5 L Est GFR (CKD-EPI)AfAm 108.20 Est GFR (CKD-EPI)NonAf 93.36 POC Glucometer Random Glucose 176 H Calcium 7.8 L Phosphorus 2.6 Magnesium 1.9 Total Bilirubin 0.5 AST 26 ALT 28 Alkaline Phosphatase 236 H Total Protein 4.6 L Albumin 1.2 L Stool Occult Blood Random Vancomycin 16.1 05/03/19 05/03/19 05/03/19 05:48 11:34 12:00 WBC RBC Hgb Hct MCV MCH MCHC RDW Plt Count MPV Sodium Potassium Chloride Carbon Dioxide Anion Gap BUN Creatinine Est GFR (CKD-EPI)AfAm Est GFR (CKD-EPI)NonAf POC Glucometer 170 243 Random Glucose Calcium Phosphorus Magnesium Total Bilirubin AST ALT Alkaline Phosphatase Total Protein Albumin Stool Occult Blood Positive Random Vancomycin 05/03/19 05/03/19 16:39 22:35 WBC RBC Hgb Hct MCV MCH MCHC RDW Plt Count MPV Sodium Potassium Chloride Carbon Dioxide Anion Gap BUN Creatinine Est GFR (CKD-EPI)AfAm Est GFR (CKD-EPI)NonAf POC Glucometer 251 278 Random Glucose Calcium Phosphorus Magnesium Total Bilirubin AST ALT Alkaline Phosphatase Total Protein Albumin Stool Occult Blood Random Vancomycin Current Medications Generic Name Dose Route Start Last Admin Trade Name Freq PRN Reason Stop Dose Admin Amino Acids 30 ml 05/04/19 08:00 Prosource No Carb Liquid Pkt GT BID@0800,1730 [facility] Amiodarone HCl 200 mg 05/04/19 10:00 Cordarone - PO DAILY [facility] Apixaban 5 mg 05/04/19 10:00 Eliquis - PEG BID [facility] Ascorbic Acid 250 mg 05/04/19 10:00 Vitamin C Oral Solution - GT DAILY [facility] Collagenase 1 applic 05/04/19 10:00 Santyl - TP DAILY [facility] Protocol Furosemide 40 mg 05/04/19 10:00 Lasix Injection - IVPUSH DAILY [facility] Insulin Aspart 1 vial 05/04/19 07:00 Novolog Vial Sliding Scale - SQ ACHS [facility] Protocol Metoprolol Tartrate 25 mg 05/04/19 10:00 Lopressor - PEG BID [facility] Metoprolol Tartrate 5 mg 05/04/19 00:36 Lopressor Injection - IVPB Q4H PRN TACHYCARDIA Multi-Ingredient Ointment 1 applic 05/04/19 10:00 Zinc Oxide TP BID [facility] Multivitamins/Minerals 15 ml 05/04/19 10:00 Certavite-Antioxidant Liquid GT DAILY [facility] Nystatin 1 applic 05/04/19 10:00 Mycostatin Cream - TP BID [facility] Pantoprazole Sodium 40 mg 05/04/19 10:00 Protonix Iv IVPUSH BID [facility] Vancomycin HCl 125 mg 05/04/19 06:00 Vancomycin Oral Solution GT Q6HPO [facility] Zinc Sulfate 220 mg 05/04/19 10:00 Orazinc - GT DAILY [facility] Microbiology 04/24/19 06:00 Blood - Central Line Blood Culture - Final NO GROWTH AFTER 5 DAYS INCUBATION 04/24/19 06:00 Blood - Central Line Blood Culture - Final NO GROWTH AFTER 5 DAYS INCUBATION 04/22/19 14:42 Blood - Peripheral Venous Blood Culture - Final NO GROWTH AFTER 5 DAYS INCUBATION 04/22/19 16:00 Urine - Urine Clean Catch Urine Culture - Final Escherichia Coli Vr Ec Faecalis Klebsiella Pneumoniae - Esbl 04/22/19 15:23 Ulcer Gram Stain - Final 04/22/19 15:23 Ulcer Wound Culture - Final Klebsiella Pneumoniae Mr S Aureus Escherichia Coli 04/24/19 06:00 Sputum - Endotrachea Suction/Ventilator Gram Stain - Final 04/24/19 06:00 Sputum - Endotrachea Suction/Ventilator Sputum Culture - Final Yeast Like Organism 04/22/19 14:42 Blood - Peripheral Venous Blood Culture - Final Mr S Aureus 04/22/19 14:50 Stool Salmonella/Shigella Culture - Final NO GROWTH OF SALMONELLA OR SHIGELLA SPECIES OBTAINED 04/22/19 14:50 Stool Campylobacter Culture - Final NO GROWTH OF CAMPYLOBACTER SPECIES OBTAINED 04/22/19 14:50 Stool Yersinia Culture - Final NO GROWTH OF YERSINIA SPECIES OBTAINED 04/22/19 14:50 Stool Vibrio Culture - Final NO GROWTH OF VIBRIO SPECIES OBTAINED 04/22/19 14:50 Stool Escherichia coli 0157 Culture - Final NO GROWTH OF E COLI 0157 OBTAINED 04/22/19 14:50 Stool Clostridioides difficile Antigen - Final 04/22/19 14:50 Stool Clostridioides difficile Toxin Assay - Final Hospitalist Encounter Assessment: This is a 79 year old female who resides at Loc[facility] within [facility], with a significant past medical history of CAD, Afib (on Eliquis), sick sinus syndrome s/p PPM, CVA (RUE /LE residual, non-verbal at baseline), chronic respiratory failure s/p trach- vent dependent, COPD, Hypertension, diabetes II, remote GI bleed, chronic stage 4 sacral wound. Admitted to ICU for Severe Sepsis, UTI, Chronic Sacral Ulcer, Afib with RVR Plan: Chest Xray- stat ABG-stat d/c Tube Feeding Outcome: Patient not improving post suctioning, Spo2 88-90. Chest Xray image reviewed, ? patchy density R-lobes RT unable to obtain ABG due to edema of patient's upper extremities 1. Acute on Chronic Respiratory Failure with Hypoxia likely due to possible Aspiration Discussed with Dr Paola Willis ICU resident patient's status, for transfer to ICU for cardiac monitoring and further management. Critical Care Total Critical Care Time (in minutes): 35 Critical Care Statement: The care of this patient involved high complexity decision making to prevent further life threatening deterioration of the patient 's condition and/or to evaluate & treat vital organ system(s) failure or risk of failure.
--- NOTE | 2019-05-03 21:13 | PN ---
Progress Note (short form) - Note Progress Note: Patient transferred from ICU to [address] [place] [address]. Patient tolerated treatment during the day. We were asked to evaluate patient for difficulty breathing. O2 sats dropped to low 80's on Vent and after being suctioned. Patient appeared volume overloaded. An extra 40 of lasix was ordered with a CXR. Called about an hour later. Patients O2 had improved but then came back down. Suctioned again. Patient still appeared to have difficulty breathing with O2 saturation in the 90 's. BP 130/60 O2 90 PE: awake and trached, edematous patient is using accessory muscles to pull breaths crackles heard diffusely Plan Acute respiratory failure - CXR minimally changed from previous Xray, continues to look fluid overloaded, received an extra dose of 40 lasix this pm - f/u ABG - try to keep patient at a 45 degree angle - low threshold for restarting pressors, especially while patient had an extra dose of lasix - try to maintain O2 above 88 on vent
[2019-05-03] MEDS ORDERED: INSULIN SLIDING SCALE (NOVOLOG) 1 VIAL SQ SCH (22:00)
[2019-05-03] MEDS ORDERED: APIXABAN 5 MG TABLET PEG SCH (22:00)
[2019-05-03] MEDS ORDERED: NYSTATIN 100,000 UNIT/GM TOPICAL CREAM 15 GM TUBE TP SCH (22:00)
[2019-05-03] MEDS ORDERED: MUPIROCIN 2% TOPICAL OINTMENT FOR DECOLONIZATION NS SCH (22:00)
[2019-05-03] MEDS ORDERED: ZINC OXIDE 20% TOPICAL OINTMENT 30 GM TUBE TP SCH (22:00)
[2019-05-03] MEDS ORDERED: CHLORHEXIDINE GLUCONATE 4% CLEANSER FOR DECOLONIZATION TP SCH ×2 (22:00)
[2019-05-03] MEDS ORDERED: PANTOPRAZOLE SODIUM 40 MG VIAL IVPUSH SCH (22:00)
--- NOTE | 2019-05-03 23:26 | PN ---
Progress Note, Physician History of Present Illness: LETHARGIC AFEBRILE BC MRSA VANCO LEVEL NOTED C DIFF+ URINE, WOUND C/S MIXED - Current Medication List Current Medications: Active Medications Amino Acids (Prosource No Carb Liquid Pkt) 30 ml GT BID@0800,1730 [facility] Amiodarone HCl (Cordarone -) 200 mg PO DAILY [facility] Apixaban (Eliquis -) 5 mg PEG BID [facility] Last Admin: 05/03/19 22:30 Dose: 5 mg Ascorbic Acid (Vitamin C Oral Solution -) 250 mg GT DAILY [facility] Collagenase (Santyl -) 1 applic TP DAILY [facility]; Protocol Furosemide (Lasix Injection -) 40 mg IVPUSH DAILY [facility] Last Admin: 05/03/19 09:13 Dose: 40 mg Insulin Aspart (Novolog Vial Sliding Scale -) 1 vial SQ ACHS [facility]; Protocol Last Admin: 05/03/19 22:40 Dose: 6 unit Metoprolol Tartrate (Lopressor -) 25 mg PEG BID [facility] Last Admin: 05/03/19 22:30 Dose: 25 mg Metoprolol Tartrate (Lopressor Injection -) 5 mg IVPB Q4H PRN PRN Reason: TACHYCARDIA Multi-Ingredient Ointment (Zinc Oxide) 1 applic TP BID [facility] Multivitamins/Minerals (Certavite-Antioxidant Liquid) 15 ml GT DAILY [facility] Nystatin (Mycostatin Cream -) 1 applic TP BID [facility] Pantoprazole Sodium (Protonix Iv) 40 mg IVPUSH BID [facility] Last Admin: 05/03/19 22:31 Dose: 40 mg Vancomycin HCl (Vancomycin Oral Solution) 125 mg GT Q6HPO [facility] Zinc Sulfate (Orazinc -) 220 mg GT DAILY [facility] - Objective Vital Signs: Vital Signs Temperature 98 F 05/03/19 10:00 Pulse Rate 60 05/03/19 16:00 Respiratory Rate 20 05/03/19 20:35 Blood Pressure 126/52 L 05/03/19 16:00 O2 Sat by Pulse Oximetry (%) 99 05/03/19 09:57 Cardiovascular: Yes: Regular Rate and Rhythm, S1, S2 Respiratory: Yes: Mechanically Ventilated Gastrointestinal: Yes: Soft Labs: CBC, BMP 05/03/19 05:45 05/03/19 05:45 INR, PTT INR 1.11 (0.83-1.09) H 04/24/19 06:00 Assessment/Plan SEPSIS/ SEPTIC SHOCK MRSA BACTEREMIA + C DIFF CHRONIC RESP FAILURE ANEMIA AZOTEMIA HX MDRO CONTINUE VANCO PER LEVELS VANCO VIA GT CONTACT PRECAUTIONS
[2019-05-04] MEDS ORDERED: VANCOMYCIN 250 MG/5 ML ORAL SOLUTION GT SCH
[2019-05-04] MEDS ORDERED: METOPROLOL TARTRATE 5 MG/5 ML VIAL IVPB PRN ×2 (00:36→18:52)
[2019-05-04 05:59] LABS: MCH 26.9 pg (25.7-33.7); MCHC 32.1 g/dl (32.0-36.0); MEAN CELL VOLUME 83.6 fl (80-96); MEAN PLT VOLUME 9.3 fl (7.5-11.1); PLATELET COUNT 150 K/MM3 (134-434); RBC 2.99 M/mm3 (3.60-5.2); RDW 22.4 % (11.6-15.6); WHITE BLOOD COUNT 12.5 K/mm3 (4.0-10.0)
[2019-05-04] MEDS: VANCOMYCIN 250 MG/5 ML ORAL SOLUTION GT SCH ×4 (06:39→23:44)
[2019-05-04 06:41] LABS: BLOOD UREA NITROGEN 44.6 mg/dL (7-18); CALCIUM 7.3 mg/dL (8.5-10.1); CREATININE 0.6 mg/dL (0.55-1.3); MAGNESIUM 1.9 mg/dL (1.8-2.4); PHOSPHOROUS 3.2 mg/dL (2.5-4.9); POTASSIUM 3.5 mmol/L (3.5-5.1)
[2019-05-04] MEDS: INSULIN SLIDING SCALE (NOVOLOG) 1 VIAL SQ SCH ×4 (06:42→21:20)
[2019-05-04] MEDS ORDERED: AMINO ACIDS/PROTEIN HYDROLYS 30 ML LIQUID.PKT GT SCH (08:00)
[2019-05-04] MEDS: AMINO ACIDS/PROTEIN HYDROLYS 30 ML LIQUID.PKT GT SCH ×2 (08:19→17:04)
[2019-05-04] MEDS ORDERED: PT OWN MED DRAWER 7, Y5N ONE ×2 (08:56→20:04)
--- NOTE | 2019-05-04 09:00 | PN ---
Progress Note, Physician - Current Medication List Current Medications: Active Medications Amino Acids (Prosource No Carb Liquid Pkt) 30 ml GT BID@0800,1730 [facility] Last Admin: 05/04/19 08:19 Dose: 30 ml Amiodarone HCl (Cordarone -) 200 mg PO DAILY [facility] Apixaban (Eliquis -) 5 mg PEG BID [facility] Ascorbic Acid (Vitamin C Oral Solution -) 250 mg GT DAILY [facility] Collagenase (Santyl -) 1 applic TP DAILY [facility]; Protocol Furosemide (Lasix Injection -) 40 mg IVPUSH DAILY [facility] Insulin Aspart (Novolog Vial Sliding Scale -) 1 vial SQ ACHS [facility]; Protocol Last Admin: 05/04/19 06:42 Dose: 2 unit Metoprolol Tartrate (Lopressor -) 25 mg PEG BID [facility] Metoprolol Tartrate (Lopressor Injection -) 5 mg IVPB Q4H PRN PRN Reason: TACHYCARDIA Multi-Ingredient Ointment (Zinc Oxide) 1 applic TP BID [facility] Multivitamins/Minerals (Certavite-Antioxidant Liquid) 15 ml GT DAILY [facility] Nystatin (Mycostatin Cream -) 1 applic TP BID [facility] Pantoprazole Sodium (Protonix Iv) 40 mg IVPUSH BID [facility] Vancomycin HCl (Vancomycin Oral Solution) 125 mg GT Q6HPO [facility] Last Admin: 05/04/19 06:39 Dose: 125 mg Zinc Sulfate (Orazinc -) 220 mg GT DAILY [facility] - Objective Vital Signs: Vital Signs Temperature 97.9 F 05/04/19 06:00 Pulse Rate 69 05/04/19 08:18 Respiratory Rate 17 05/04/19 08:18 Blood Pressure 126/56 L 05/04/19 08:00 O2 Sat by Pulse Oximetry (%) 98 05/04/19 08:18 Cardiovascular: Yes: S1, S2 Respiratory: Yes: Mechanically Ventilated Gastrointestinal: Yes: Normal Bowel Sounds, Soft Labs: CBC, BMP 05/04/19 05:28 05/04/19 05:28 INR, PTT INR 1.11 (0.83-1.09) H 04/24/19 06:00 Problem List - Problems (1) CONOR (acute kidney injury) Code(s): N17.9 - ACUTE KIDNEY FAILURE, UNSPECIFIED (2) Anemia Code(s): D64.9 - ANEMIA, UNSPECIFIED Qualifiers: Iron deficiency anemia type: chronic blood loss (3) Atrial fibrillation with RVR Code(s): I48.91 - UNSPECIFIED ATRIAL FIBRILLATION (4) Sepsis Code(s): A41.9 - SEPSIS, UNSPECIFIED ORGANISM Qualifiers: Sepsis type: sepsis due to unspecified organism Sepsis acute organ dysfunction status: without acute organ dysfunction Qualified Code(s): A41.9 - Sepsis, unspecified organism Assessment/Plan - Problems (1) CONOR (acute kidney injury) Assessment/Plan: -Cr normalized -Nephrology on board Problems reviewed: Yes Code(s): N17.9 - ACUTE KIDNEY FAILURE, UNSPECIFIED (2) Abnormal liver function tests Assessment/Plan: -chronic, asymptomatic -GI on board -Avoid hepatotoxic drugs -Statin discontinued Problems reviewed: Yes Code(s): R94.5 - ABNORMAL RESULTS OF LIVER FUNCTION STUDIES (3) Anemia Assessment/Plan: -Previously guaiac + -On AC for chronic afib, benefit>risks -H/H stable -previously low in Iron % -repeat Iron studies, B 12 and thyroid -monitor trend -Transfuse if Hg<7.0 to avoid fluid overload, since pt is chronically anemic Problems reviewed: Yes Code(s): D64.9 - ANEMIA, UNSPECIFIED (4) Atrial fibrillation with RVR Assessment/Plan: -Chronic -rate controlled -Continue Eliquis 5 mg po BID Problems reviewed: Yes Code(s): I48.91 - UNSPECIFIED ATRIAL FIBRILLATION (5) Sacral decubitus ulcer, stage III Assessment/Plan: -Local wound care -Offloading -T&P Q2H -On prosource + Multivitamin Problems reviewed: Yes Code(s): L89.153 - PRESSURE ULCER OF SACRAL REGION, STAGE 3 (6) Septic shock Assessment/Plan: -ID on board -Cultures reviewed -IV Vanco -Afebrile -leukocytes improved Problems reviewed: Yes Code(s): A41.9 - SEPSIS, UNSPECIFIED ORGANISM; R65.21 - SEVERE SEPSIS WITH SEPTIC SHOCK (7) C. difficile diarrhea Assessment/Plan: -PO Vancomycin -Contact isolation Problems reviewed: Yes Code(s): A04.72 - ENTEROCOLITIS D/T CLOSTRIDIUM DIFFICILE, NOT SPCF RECUR (8) Elevated troponin I level Assessment/Plan: -2/2 to demand ischemia in setting of septic shock Problems reviewed: Yes Code(s): R74.8 - ABNORMAL LEVELS OF OTHER SERUM ENZYMES (9) GIB (gastrointestinal bleeding) Monitor Iron given Problems reviewed: Yes Code(s): K92.2 - GASTROINTESTINAL HEMORRHAGE, UNSPECIFIED Qualifiers: GI bleed type/associated pathology: unspecified gastrointestinal hemorrhage type Qualified Code(s): K92.2 - Gastrointestinal hemorrhage, unspecified (10) Functional quadriplegia Code(s): R53.2 - FUNCTIONAL QUADRIPLEGIA
[2019-05-04] MEDS ORDERED: METOPROLOL TARTRATE 25 MG TABLET (FP) PEG SCH (10:00)
[2019-05-04] MEDS ORDERED: APIXABAN 5 MG TABLET PEG SCH (10:00)
[2019-05-04] MEDS ORDERED: NYSTATIN 100,000 UNIT/GM TOPICAL CREAM 15 GM TUBE TP SCH (10:00)
[2019-05-04] MEDS ORDERED: MULTIVIT-MINERALS ORAL LIQUID GT SCH ×2 (10:00)
[2019-05-04] MEDS ORDERED: ZINC OXIDE 20% TOPICAL OINTMENT 30 GM TUBE TP SCH (10:00)
[2019-05-04] MEDS ORDERED: ASCORBIC ACID 500 MG/5 ML UNIT DOSE CUP GT SCH ×2 (10:00)
[2019-05-04] MEDS ORDERED: COLLAGENASE CLOSTRIDIUM HIST. 30 GRAMS TUBE TP SCH ×2 (10:00)
[2019-05-04] MEDS ORDERED: AMIODARONE HCL 200 MG TABLET PO SCH ×2 (10:00)
[2019-05-04] MEDS ORDERED: PANTOPRAZOLE SODIUM 40 MG VIAL IVPUSH SCH (10:00)
[2019-05-04] MEDS ORDERED: ZINC SULFATE 220 MG CAPSULE (FP) GT SCH ×2 (10:00)
[2019-05-04] MEDS ORDERED: FUROSEMIDE 40 MG/4 ML INJECTABLE VIAL IVPUSH SCH ×2 (10:00→14:00)
--- NOTE | 2019-05-04 11:01 | PN ---
Progress Note, Physician History of Present Illness: Remains off pressors. Increased FIO2 60% PEEP 5. Increased anasarca and weight gain since admission, poorly responsive, possible aspiration. - Current Medication List Current Medications: Active Medications Amino Acids (Prosource No Carb Liquid Pkt) 30 ml GT BID@0800,1730 [facility] Last Admin: 05/04/19 08:19 Dose: 30 ml Amiodarone HCl (Cordarone -) 200 mg PO DAILY [facility] Last Admin: 05/04/19 09:06 Dose: 200 mg Apixaban (Eliquis -) 5 mg PEG BID [facility] Last Admin: 05/04/19 09:05 Dose: 5 mg Ascorbic Acid (Vitamin C Oral Solution -) 250 mg GT DAILY [facility] Last Admin: 05/04/19 09:05 Dose: 250 mg Collagenase (Santyl -) 1 applic TP DAILY [facility]; Protocol Furosemide (Lasix Injection -) 40 mg IVPUSH DAILY [facility] Insulin Aspart (Novolog Vial Sliding Scale -) 1 vial SQ ACHS [facility]; Protocol Last Admin: 05/04/19 06:42 Dose: 2 unit Metoprolol Tartrate (Lopressor -) 25 mg PEG BID [facility] Last Admin: 05/04/19 09:07 Dose: 25 mg Metoprolol Tartrate (Lopressor Injection -) 5 mg IVPB Q4H PRN PRN Reason: TACHYCARDIA Multi-Ingredient Ointment (Zinc Oxide) 1 applic TP BID [facility] Multivitamins/Minerals (Certavite-Antioxidant Liquid) 15 ml GT DAILY [facility] Last Admin: 05/04/19 09:04 Dose: 15 ml Nystatin (Mycostatin Cream -) 1 applic TP BID [facility] Pantoprazole Sodium (Protonix Iv) 40 mg IVPUSH BID [facility] Last Admin: 05/04/19 09:06 Dose: 40 mg Vancomycin HCl (Vancomycin Oral Solution) 125 mg GT Q6HPO [facility] Last Admin: 05/04/19 06:39 Dose: 125 mg Zinc Sulfate (Orazinc -) 220 mg GT DAILY [facility] Last Admin: 05/04/19 09:27 Dose: 220 mg - Objective Vital Signs: Vital Signs Temperature 97.9 F 05/04/19 06:00 Pulse Rate 69 05/04/19 08:18 Respiratory Rate 17 05/04/19 08:18 Blood Pressure 126/56 L 05/04/19 08:00 O2 Sat by Pulse Oximetry (%) 98 05/04/19 08:18 Neck: Yes: Other (Tracheostomy) Cardiovascular: Yes: Regular Rate and Rhythm Respiratory: Yes: Mechanically Ventilated Gastrointestinal: Yes: Normal Bowel Sounds, Soft, Other (PEG in place) Edema: Yes Edema: LUE: 2+, RUE: 2+, LLE: 2+, RLE: 2+ Labs: CBC, BMP 05/04/19 05:28 05/04/19 05:28 INR, PTT INR 1.11 (0.83-1.09) H 04/24/19 06:00 - ....Imaging EKG: Report Reviewed (Tele: [id number]) Problem List - Problems (1) Anemia Code(s): D64.9 - ANEMIA, UNSPECIFIED Qualifiers: Iron deficiency anemia type: chronic blood loss (2) C. difficile diarrhea Code(s): A04.72 - ENTEROCOLITIS D/T CLOSTRIDIUM DIFFICILE, NOT SPCF RECUR (3) Septic shock Code(s): A41.9 - SEPSIS, UNSPECIFIED ORGANISM; R65.21 - SEVERE SEPSIS WITH SEPTIC SHOCK (4) Stage 4 skin ulcer of sacral region Code(s): L98.429 - NON-PRESSURE CHRONIC ULCER OF BACK WITH UNSPECIFIED SEVERITY (5) A-fib Code(s): I48.91 - UNSPECIFIED ATRIAL FIBRILLATION Qualifiers: Atrial fibrillation type: longstanding persistent Qualified Code(s): I48.11 - Longstanding persistent atrial fibrillation (6) Angiodysplasia of colon with hemorrhage Code(s): K55.21 - ANGIODYSPLASIA OF COLON WITH HEMORRHAGE (7) CAD (coronary artery disease) Code(s): I25.10 - ATHSCL HEART DISEASE OF [place] CORONARY ARTERY W/O ANG PCTRS Qualifiers: Coronary Disease-Associated Artery/Lesion type: [place] artery [place] vs. transplanted heart: [place] heart Associated angina: without angina Qualified Code(s): I25.10 - Atherosclerotic heart disease of [place] coronary artery without angina pectoris (8) CVA (cerebral vascular accident) Code(s): I63.9 - CEREBRAL INFARCTION, UNSPECIFIED Qualifiers: CVA mechanism: embolism (9) Demand ischemia Code(s): I24.8 - OTHER FORMS OF ACUTE ISCHEMIC HEART DISEASE (10) Diabetes mellitus Code(s): E11.9 - TYPE 2 DIABETES MELLITUS WITHOUT COMPLICATIONS Qualifiers: Diabetes mellitus type: type 2 Diabetes mellitus alf insulin use: with oysterman use Diabetes mellitus complication status: with hyperglycemia Qualified Code(s): E11.65 - Type 2 diabetes mellitus with hyperglycemia; Z79.4 - oysterman (current) use of insulin (11) Diastolic dysfunction Code(s): I51.89 - OTHER ILL-DEFINED HEART DISEASES (12) Elevated troponin I level Code(s): R74.8 - ABNORMAL LEVELS OF OTHER SERUM ENZYMES (13) GIB (gastrointestinal bleeding) Code(s): K92.2 - GASTROINTESTINAL HEMORRHAGE, UNSPECIFIED Qualifiers: GI bleed type/associated pathology: unspecified gastrointestinal hemorrhage type Qualified Code(s): K92.2 - Gastrointestinal hemorrhage, unspecified (14) Hemiparesis and other late effects of cerebrovascular accident Code(s): I69.359 - HEMIPLGA FOLLOWING CEREBRAL INFARCTION AFFECTING UNSP SIDE; I69.398 - OTHER SEQUELAE OF CEREBRAL INFARCTION (15) S/P mitral valve repair Code(s): Z98.890 - OTHER SPECIFIED POSTPROCEDURAL STATES (16) Ventilator dependent Code(s): Z99.11 - DEPENDENCE ON RESPIRATOR [VENTILATOR] STATUS Assessment/Plan ASSESSMENT: 1. UTI, PNA, c. diff colitis, sacral decub infxn, septic shock, clinically resolving 2. CAD with evidence of demand ischemic injury angina pectoris 3. Diastolic LV dysfunction with clinical class 0 NYHA classification LV failure 4. Paroxysmal atrial fibrillation with RVR currently in sinus rhythm- atrial pacing [id number] score of 9 on DOAC's/Eliquis 5. Sick sinus syndrome post PPM 6. Post mitral valve repair 7. History of CVA 8. Chronic respiratory failure on mechanical ventilation post tracheostomy 9. HTN 10. Hypercholesterolemia 11. COPD 12. Hypernatremia resolved 13. Hypokalemia resolved 14. Pre-renal azotemia 15. Acute blood loss anemia with history of gastrointestinal bleed 16. Sacral decubitus ulcer 17. C. diff colitis PLAN: 1. Antibiotics with f/u C&S as per the primary team 2. Monitor off pressors 3. Resumed Lopressor 25 bid with uptitration as hemodynamics tolerate 4. Continue Amiodarone 200 mg daily 5. Add ACEI or ARBS unless contraindicated, hemodynamics permitting 6. Continue Eliquis 5 bid with close monitoring of Hg, transfuse to maintain Hg equal or > 8.0, protonix 7. No intervention indicated for the above noted elevated Troponin I level consistent with demand ischemia 8. IV diuresis as needed to keep even
--- NOTE | 2019-05-04 12:19 | PN ---
Physical Exam: SUBJECTIVE: Patient seen and examined Patient was txd to [facility] yesterday but ICU called to evaluate patient for desats 80s and pulling on the vent. Patient received CXR with overload and given 40iv lasix. Symptoms did not completely resolve and decision was made to tx patient back to ICU. Since arrival to ICU, patient has been stable with sats in high 90s and HDS; no other overnight events. OBJECTIVE: Vital Signs Period Temp Pulse Resp BP Sys/[place] Pulse Ox Last 24 Hr 97.2 F-97.9 F 60-69 15-23 113-127/35-66 89-98 GENERAL: Asleep but arousable. Not following commands. HEAD: Normal with no signs of trauma. EYES: PERRL, extraocular movements intact, sclera anicteric, conjunctiva clear. No ptosis. ENT: Ears normal, nares patent, oropharynx clear without exudates, moist mucous membranes. NECK: Trach in place without evidence of infection, normal appearing borders LUNGS: Vented, coarse breath sounds in all lung waller, no wheezes, no crackles , no accessory muscle use. HEART: Regular rate and rhythm, S1, S2 without murmur, rub or gallop. ABDOMEN: Soft, nontender, nondistended, normoactive bowel sounds, no guarding, no rebound, no hepatosplenomegaly, no masses. PEG in place EXTREMITIES: 2+ pulses, warm, well-perfused, no edema. NEUROLOGICAL: Limited due to mental status SKIN: sacral debridement wound ~11x8cm in diameter with depth to the bone, fibrinous tissue at the bases with no evidence of bleeding or purulence Laboratory Results - last 24 hr CBC, BMP 05/04/19 05:28 05/04/19 05:28 Active Medications Generic Name Dose Route Start Last Admin Trade Name Freq PRN Reason Stop Dose Admin Amino Acids 30 ml 05/04/19 08:00 05/04/19 08:19 Prosource No Carb Liquid Pkt GT 30 ml BID@0800,1730 [facility] Administration Amiodarone HCl 200 mg 05/04/19 10:00 05/04/19 09:06 Cordarone - PO 200 mg DAILY [facility] Administration Apixaban 5 mg 05/04/19 10:00 05/04/19 09:05 Eliquis - PEG 5 mg BID [facility] Administration Ascorbic Acid 250 mg 05/04/19 10:00 05/04/19 09:05 Vitamin C Oral Solution - GT 250 mg DAILY [facility] Administration Collagenase 1 applic 05/04/19 10:00 Santyl - TP DAILY [facility] Protocol Furosemide 40 mg 05/04/19 10:00 05/04/19 11:52 Lasix Injection - IVPUSH 40 mg DAILY [facility] Administration Insulin Aspart 1 vial 05/04/19 07:00 05/04/19 11:52 Novolog Vial Sliding Scale - SQ 2 unit ACHS [facility] Administration Protocol Metoprolol Tartrate 25 mg 05/04/19 10:00 05/04/19 09:07 Lopressor - PEG 25 mg BID [facility] Administration Metoprolol Tartrate 5 mg 05/04/19 00:36 Lopressor Injection - IVPB Q4H PRN TACHYCARDIA Multi-Ingredient Ointment 1 applic 05/04/19 10:00 Zinc Oxide TP BID [facility] Multivitamins/Minerals 15 ml 05/04/19 10:00 05/04/19 09:04 Certavite-Antioxidant Liquid GT 15 ml DAILY [facility] Administration Nystatin 1 applic 05/04/19 10:00 Mycostatin Cream - TP BID [facility] Pantoprazole Sodium 40 mg 05/04/19 10:00 05/04/19 09:06 Protonix Iv IVPUSH 40 mg BID [facility] Administration Vancomycin HCl 125 mg 05/04/19 06:00 05/04/19 11:49 Vancomycin Oral Solution GT 125 mg Q6HPO [facility] Administration Zinc Sulfate 220 mg 05/04/19 10:00 05/04/19 09:27 Orazinc - GT 220 mg DAILY [facility] Administration ASSESSMENT/PLAN: Patient is a 79 year olf female with PMH of CAD, Afib (on Eliquis), sick sinus syndrome (s/p PPM), DMII, HTN, COPD, remote history of GI bleed, colonic angiodysplasia, sigmoid diverticulosis, internal hemorrhoids, CVA (RUE/LE paralysis, non verbal), chronic respiratory failure (s/p trach-vent dependent), chronic stage 4 sacral ulcer, presenting from [facility] for T 102.3 and Afib with RVR with concern for septic shock with source of pna vs uti vs sacral ulcer. ICU course complicated with GI bleed s/p pRBC and now stable. Txd to floors on 05/03/19 however was noted to desat to 80s and appeared to be in resp distress and txd back to icu #Neuro - stable; arousable to name; unresponsive and does not follow commands #Cardio -CAD, afib (on eliquis) HTN, sick sinus syndrome -metoprolol 25 bid, amiodarone 200 daily -changed to lasix 40 bid -followed by Dr. Gaines #Pulm - chronic trach-vent - CXR: yesterday with increased vascular congestion; maintain HOB 45 degrees ; lasix 40mg iv bid #GI - no evidence of active GI bleed - c/w protonix 40 BID - continue feeds - followed by Dr. Hernandez #ID - MRSA bactermia; C diff - c/w vancomycin PO; IV vanc by level - PO vanco 125 mg q6h - followed by Dr. Chau #Nephro - currently at baseline, monitor cr - followed by Dr. Aguirre #Endo -history of DM -ISS -BGMS ACHS #Skin - sacral wound, continue wound care - turn and position to offload F/E/N not on fluids tube feeds monitor electrolytes, repleted Magnesium today dvt ppx: eliquis Dispo: family discussion today -- patient made DNR and plan for terminal wean from mechanical vent May 08, continue medical management until then and administer comfort care, palliative care order placed Visit type - Emergency Visit Emergency Visit: No - New Patient This patient is new to me today: No - Critical Care Critical Care patient: Yes Total Critical Care Time (in minutes): 40 Critical Care Statement: The care of this patient involved high complexity decision making to prevent further life threatening deterioration of the patient 's condition and/or to evaluate & treat vital organ system(s) failure or risk of failure. ATTENDING PHYSICIAN STATEMENT I saw and evaluated the patient. I reviewed the resident's note and discussed the case with the resident. I agree with the resident's findings and plan as documented. SUBJECTIVE: OBJECTIVE: ASSESSMENT AND PLAN:
--- NOTE | 2019-05-04 12:40 | PN ---
Progress Note (short form) - Note Progress Note: Renal follow up for CONOR/CKD Seen and examined in the ICU on vent via trach no overnight events no change in clinical status Vital Signs Temperature 98.3 F 05/01/19 06:00 Pulse Rate 66 05/01/19 08:00 Respiratory Rate 20 05/01/19 08:00 Blood Pressure 118/40 L 05/01/19 08:00 O2 Sat by Pulse Oximetry (%) 98 04/30/19 19:36 Intake & Output 04/28/19 04/29/19 04/30/19 05/01/19 23:59 23:59 23:59 23:59 Intake Total 2704.4 2671 854 1362 Output Total 950 1400 700 350 Balance 1754.4 6185 746 7103 Weight 81.1 kg 82.055 kg 81.511 kg 81.647 kg NAD on vent via trach RRR DEc BS bilaterally soft NT/ND ++ edema in LE and UE CBC, BMP 05/04/19 05:28 05/04/19 05:28 Current Medications Amino Acids (Prosource No Carb Liquid Pkt) 30 ml GT BID@0800,1730 [facility] Last Admin: 05/04/19 08:19 Dose: 30 ml Amiodarone HCl (Cordarone -) 200 mg PO DAILY [facility] Last Admin: 05/04/19 09:06 Dose: 200 mg Apixaban (Eliquis -) 5 mg PEG BID [facility] Last Admin: 05/04/19 09:05 Dose: 5 mg Ascorbic Acid (Vitamin C Oral Solution -) 250 mg GT DAILY [facility] Last Admin: 05/04/19 09:05 Dose: 250 mg Collagenase (Santyl -) 1 applic TP DAILY [facility]; Protocol Furosemide (Lasix Injection -) 40 mg IVPUSH BIDLASIX [facility] Insulin Aspart (Novolog Vial Sliding Scale -) 1 vial SQ ACHS [facility]; Protocol Last Admin: 05/04/19 11:52 Dose: 2 unit Metoprolol Tartrate (Lopressor -) 25 mg PEG BID [facility] Last Admin: 05/04/19 09:07 Dose: 25 mg Metoprolol Tartrate (Lopressor Injection -) 5 mg IVPB Q4H PRN PRN Reason: TACHYCARDIA Multi-Ingredient Ointment (Zinc Oxide) 1 applic TP BID [facility] Multivitamins/Minerals (Certavite-Antioxidant Liquid) 15 ml GT DAILY [facility] Last Admin: 05/04/19 09:04 Dose: 15 ml Nystatin (Mycostatin Cream -) 1 applic TP BID [facility] Pantoprazole Sodium (Protonix Iv) 40 mg IVPUSH BID [facility] Last Admin: 05/04/19 09:06 Dose: 40 mg Vancomycin HCl (Vancomycin Oral Solution) 125 mg GT Q6HPO [facility] Last Admin: 05/04/19 11:49 Dose: 125 mg Zinc Sulfate (Orazinc -) 220 mg GT DAILY [facility] Last Admin: 05/04/19 09:27 Dose: 220 mg 79-year-old female with history of chronic respiratory failure, hypertension, coronary artery disease, chronic atrial fibrillation, sick sinus syndrome, type 2 diabetes mellitus, hypertension, GI bleed, recent polymicrobial sepsis, cerebrovascular accident, status post chronic ventilatory support through tracheostomy and chronic kidney failure 1. CONOR now resolved 2. Hypernatremia 3. Sepsis/Septic shock 4. Respiratory failure on Vent 5. Hypokalemia Renal function improved and stable clinically unchanged pt as significant edema/3rd spacing in setting of poor nutrition status and IV fluids. to start IV diuretics for edema management continue free water to maintain Na levels will followup as needed please call with any questions or concerns. Tashi Aguirre DO
--- NOTE | 2019-05-04 13:24 | PN ---
Teaching Attending Note Name of Resident: Oneil Ashley ATTENDING PHYSICIAN STATEMENT I saw and evaluated the patient. I reviewed the resident's note and discussed the case with the resident. I agree with the resident's findings and plan as documented. SUBJECTIVE: Pt seen and examined in the ICU. Transferred back to ICU for respiratory distress. Vented, poorly responsive. OBJECTIVE: Vital Signs Period Temp Pulse Resp BP Sys/[place] Pulse Ox Last 24 Hr 97.2 F-98 F 60-69 15-23 120-136/52-66 89-98 Intake & Output 05/01/19 05/02/19 05/03/19 05/04/19 23:59 23:59 23:59 23:59 Intake Total 3361 3340 3730 300 Output Total 950 2400 1500 600 Balance 2411 940 2230 -300 Weight 81.647 kg 82.724 kg 82.871 kg 83.053 kg Gen: vented, poorly responsive, tachypneic Heart: RRR Lung: scattered rhonchi Abd: soft, nontender Ext: + edema CBC, BMP 05/04/19 05:28 05/04/19 05:28 Active Medications Amino Acids (Prosource No Carb Liquid Pkt) 30 ml GT BID@0800,1730 [facility] Last Admin: 05/04/19 08:19 Dose: 30 ml Amiodarone HCl (Cordarone -) 200 mg PO DAILY [facility] Last Admin: 05/04/19 09:06 Dose: 200 mg Apixaban (Eliquis -) 5 mg PEG BID [facility] Last Admin: 05/04/19 09:05 Dose: 5 mg Ascorbic Acid (Vitamin C Oral Solution -) 250 mg GT DAILY [facility] Last Admin: 05/04/19 09:05 Dose: 250 mg Collagenase (Santyl -) 1 applic TP DAILY [facility]; Protocol Furosemide (Lasix Injection -) 40 mg IVPUSH BIDLASIX [facility] Insulin Aspart (Novolog Vial Sliding Scale -) 1 vial SQ ACHS [facility]; Protocol Last Admin: 05/04/19 11:52 Dose: 2 unit Metoprolol Tartrate (Lopressor -) 25 mg PEG BID [facility] Last Admin: 05/04/19 09:07 Dose: 25 mg Metoprolol Tartrate (Lopressor Injection -) 5 mg IVPB Q4H PRN PRN Reason: TACHYCARDIA Multi-Ingredient Ointment (Zinc Oxide) 1 applic TP BID [facility] Multivitamins/Minerals (Certavite-Antioxidant Liquid) 15 ml GT DAILY [facility] Last Admin: 05/04/19 09:04 Dose: 15 ml Nystatin (Mycostatin Cream -) 1 applic TP BID [facility] Pantoprazole Sodium (Protonix Iv) 40 mg IVPUSH BID [facility] Last Admin: 05/04/19 09:06 Dose: 40 mg Vancomycin HCl (Vancomycin Oral Solution) 125 mg GT Q6HPO [facility] Last Admin: 05/04/19 11:49 Dose: 125 mg Zinc Sulfate (Orazinc -) 220 mg GT DAILY [facility] Last Admin: 05/04/19 09:27 Dose: 220 mg ASSESSMENT AND PLAN: UTI Pneumonia Suspected Sacral Decubitus Ulcer Infection C Diff Colitis Septic Shock resolving GI Bleed likely Upper Acute Blood Loss Anemia Atrial Fibrillation with RVR CAD COPD HTN DM h/o CVA - long discussion with pt's daughter/HCP, explained current condition, significant risk factors for recurrent infections from resistant organisms, co- morbidities, poor function status, malnutrition and she agrees that recovery from current clinical situation to have a meaningful life is unlikely - she wishes that pt be made DNR, continue medical treatments for now but no further blood draws - plan for withdrawal of care and comfort measures after other family members have opportunity to visit - plan for comfort measures 05/08-05/09 - palliative care eval - continue antibiotics - lasix today - off pressors, maintain MAP > 65 - protonix - rate control - continue volume assist control - DVT/GI prophylaxis - poor overall prognosis - can monitor on vent floor
--- NOTE | 2019-05-04 14:58 | PN ---
Progress Note, Physician History of Present Illness: LETHARGIC TRANSFERRED BACK TO ICU AFTER LABORED BREATHING AFEBRILE BC MRSA VANCO LEVEL NOTED C DIFF+ URINE, WOUND C/S MIXED - Current Medication List Current Medications: Active Medications Amino Acids (Prosource No Carb Liquid Pkt) 30 ml GT BID@0800,1730 [facility] Last Admin: 05/04/19 08:19 Dose: 30 ml Amiodarone HCl (Cordarone -) 200 mg PO DAILY [facility] Last Admin: 05/04/19 09:06 Dose: 200 mg Apixaban (Eliquis -) 5 mg PEG BID [facility] Last Admin: 05/04/19 09:05 Dose: 5 mg Ascorbic Acid (Vitamin C Oral Solution -) 250 mg GT DAILY [facility] Last Admin: 05/04/19 09:05 Dose: 250 mg Collagenase (Santyl -) 1 applic TP DAILY [facility]; Protocol Furosemide (Lasix Injection -) 40 mg IVPUSH DAILY [facility] Insulin Aspart (Novolog Vial Sliding Scale -) 1 vial SQ ACHS [facility]; Protocol Last Admin: 05/04/19 11:52 Dose: 2 unit Metoprolol Tartrate (Lopressor -) 25 mg PEG BID [facility] Last Admin: 05/04/19 09:07 Dose: 25 mg Metoprolol Tartrate (Lopressor Injection -) 5 mg IVPB Q4H PRN PRN Reason: TACHYCARDIA Multi-Ingredient Ointment (Zinc Oxide) 1 applic TP BID [facility] Multivitamins/Minerals (Certavite-Antioxidant Liquid) 15 ml GT DAILY [facility] Last Admin: 05/04/19 09:04 Dose: 15 ml Nystatin (Mycostatin Cream -) 1 applic TP BID [facility] Pantoprazole Sodium (Protonix Iv) 40 mg IVPUSH BID [facility] Last Admin: 05/04/19 09:06 Dose: 40 mg Vancomycin HCl (Vancomycin Oral Solution) 125 mg GT Q6HPO [facility] Last Admin: 05/04/19 11:49 Dose: 125 mg Zinc Sulfate (Orazinc -) 220 mg GT DAILY [facility] Last Admin: 05/04/19 09:27 Dose: 220 mg - Objective Vital Signs: Vital Signs Temperature 98.4 F 05/04/19 14:00 Pulse Rate 60 05/04/19 14:00 Respiratory Rate 19 05/04/19 14:00 Blood Pressure 131/51 L 05/04/19 14:00 O2 Sat by Pulse Oximetry (%) 97 05/04/19 11:46 Constitutional: Yes: No Distress Cardiovascular: Yes: Regular Rate and Rhythm, S1, S2 Respiratory: Yes: Mechanically Ventilated Gastrointestinal: Yes: Normal Bowel Sounds, Soft. No: Tenderness Edema: Yes Labs: CBC, BMP 05/04/19 05:28 05/04/19 05:28 INR, PTT INR 1.11 (0.83-1.09) H 04/24/19 06:00 Assessment/Plan SEPSIS/ SEPTIC SHOCK MRSA BACTEREMIA (04/22/19) + C DIFF CHRONIC RESP FAILURE ANEMIA AZOTEMIA HX MDRO CONTINUE VANCO PER LEVELS VANCO VIA GT CONTACT PRECAUTIONS
[2019-05-04] MEDS ORDERED: INSULIN (NOVOLOG) ASPART 100 UNITS/ML 10ML VIAL ONE (21:17)
[2019-05-04] MEDS: METOPROLOL TARTRATE 25 MG TABLET (FP) PEG SCH (21:20)
[2019-05-04] MEDS: APIXABAN 5 MG TABLET PEG SCH (21:20)
[2019-05-04] MEDS: NYSTATIN 100,000 UNIT/GM TOPICAL CREAM 15 GM TUBE TP SCH (21:20)
[2019-05-04] MEDS: PANTOPRAZOLE SODIUM 40 MG VIAL IVPUSH SCH (21:21)
[2019-05-04] MEDS: ZINC OXIDE 20% TOPICAL OINTMENT 30 GM TUBE TP SCH (21:21)
[2019-05-05] MEDS: INSULIN SLIDING SCALE (NOVOLOG) 1 VIAL SQ SCH ×4 (06:29→22:12)
[2019-05-05] MEDS: VANCOMYCIN 250 MG/5 ML ORAL SOLUTION GT SCH ×4 (06:30→23:26)
[2019-05-05] MEDS ORDERED: INSULIN (NOVOLOG) ASPART 100 UNITS/ML 10ML VIAL ONE ×2 (06:40→11:42)
[2019-05-05] MEDS ORDERED: FUROSEMIDE 40 MG/4 ML INJECTABLE VIAL IVPUSH SCH (10:00)
[2019-05-05] MEDS ORDERED: PT OWN MED DRAWER 7, Y5N ONE ×2 (10:47→12:13)
[2019-05-05] MEDS: AMINO ACIDS/PROTEIN HYDROLYS 30 ML LIQUID.PKT GT SCH ×2 (10:50→17:39)
[2019-05-05] MEDS: MULTIVIT-MINERALS ORAL LIQUID GT SCH (10:50)
[2019-05-05] MEDS: ASCORBIC ACID 500 MG/5 ML UNIT DOSE CUP GT SCH (10:50)
[2019-05-05] MEDS: APIXABAN 5 MG TABLET PEG SCH ×2 (10:50→22:18)
[2019-05-05] MEDS: ZINC SULFATE 220 MG CAPSULE (FP) GT SCH (10:50)
[2019-05-05] MEDS: METOPROLOL TARTRATE 25 MG TABLET (FP) PEG SCH ×2 (10:51→22:18)
[2019-05-05] MEDS: FUROSEMIDE 40 MG/4 ML INJECTABLE VIAL IVPUSH SCH (10:51)
[2019-05-05] MEDS: PANTOPRAZOLE SODIUM 40 MG VIAL IVPUSH SCH ×2 (10:51→22:18)
[2019-05-05] MEDS: AMIODARONE HCL 200 MG TABLET PO SCH (10:52)
[2019-05-05] MEDS: COLLAGENASE CLOSTRIDIUM HIST. 30 GRAMS TUBE TP SCH (11:01)
[2019-05-05] MEDS: ZINC OXIDE 20% TOPICAL OINTMENT 30 GM TUBE TP SCH ×2 (11:01→22:18)
[2019-05-05] MEDS: NYSTATIN 100,000 UNIT/GM TOPICAL CREAM 15 GM TUBE TP SCH ×2 (11:02→22:18)
--- NOTE | 2019-05-05 11:31 | PN ---
Progress Note (short form) - Note Progress Note: Events noted. Made DNR by the daughter. Requested comfort measures and plan is for compassionate wean likely on 05/08 or . Remains poorly responsive. Intake & Output 05/02/19 05/03/19 05/04/19 05/05/19 23:59 23:59 23:59 23:59 Intake Total 3340 3730 910 1500 Output Total 2400 1500 1300 Balance 940 2230 -390 1500 Weight 182 lb 6 oz 182 lb 11.2 oz 183 lb 1.6 oz Last Vital Signs Temp Pulse Resp BP Pulse Ox 98.3 F 60 20 106/55 L 97 05/05/19 08:00 05/05/19 08:00 05/05/19 08:00 05/05/19 08:00 05/05/19 01:22 Active Medications Amino Acids (Prosource No Carb Liquid Pkt) 30 ml GT BID@0800,1730 [facility] Last Admin: 05/05/19 10:50 Dose: 30 ml Amiodarone HCl (Cordarone -) 200 mg PO DAILY [facility] Last Admin: 05/05/19 10:52 Dose: 200 mg Apixaban (Eliquis -) 5 mg PEG BID [facility] Last Admin: 05/05/19 10:50 Dose: 5 mg Ascorbic Acid (Vitamin C Oral Solution -) 250 mg GT DAILY [facility] Last Admin: 05/05/19 10:50 Dose: 250 mg Collagenase (Santyl -) 1 applic TP DAILY [facility]; Protocol Last Admin: 05/05/19 11:01 Dose: 1 applic Furosemide (Lasix Injection -) 40 mg IVPUSH DAILY [facility] Last Admin: 05/05/19 10:51 Dose: 40 mg Insulin Aspart (Novolog Vial Sliding Scale -) 1 vial SQ ACHS [facility]; Protocol Last Admin: 05/05/19 06:29 Dose: 6 units Metoprolol Tartrate (Lopressor -) 25 mg PEG BID [facility] Last Admin: 05/05/19 10:51 Dose: 25 mg Metoprolol Tartrate (Lopressor Injection -) 5 mg IVPB Q4H PRN PRN Reason: TACHYCARDIA Multi-Ingredient Ointment (Zinc Oxide) 1 applic TP BID [facility] Last Admin: 05/05/19 11:01 Dose: 1 applic Multivitamins/Minerals (Certavite-Antioxidant Liquid) 15 ml GT DAILY [facility] Last Admin: 05/05/19 10:50 Dose: 15 ml Nystatin (Mycostatin Cream -) 1 applic TP BID [facility] Last Admin: 05/05/19 11:02 Dose: 1 applic Pantoprazole Sodium (Protonix Iv) 40 mg IVPUSH BID [facility] Last Admin: 05/05/19 10:51 Dose: 40 mg Vancomycin HCl (Vancomycin Oral Solution) 125 mg GT Q6HPO [facility] Last Admin: 05/05/19 06:30 Dose: 125 mg Zinc Sulfate (Orazinc -) 220 mg GT DAILY [facility] Last Admin: 05/05/19 10:50 Dose: 220 mg Gen: vented, poorly responsive Heart: RRR Lung: scattered rhonchi Abd: soft, nontender Ext: + edema Laboratory Results - last 24 hr 05/04/19 05/04/19 05/04/19 11:40 16:35 21:09 POC Glucometer 167 222 237 05/05/19 06:11 POC Glucometer 287 ASSESSMENT AND PLAN: UTI Pneumonia Suspected Sacral Decubitus Ulcer Infection C Diff Colitis Septic Shock resolving GI Bleed likely Upper Acute Blood Loss Anemia Atrial Fibrillation with RVR CAD COPD HTN DM h/o CVA - Patient has been made DNR / comfort measures by daughter/HCP due to overall poor condition. For eventual compassionate wean. - continue antibiotics - continue volume assist control - DVT/GI prophylaxis - poor overall prognosis Dr Stover
--- NOTE | 2019-05-05 12:18 | PN ---
Progress Note, Physician Chief Complaint: Events noted Made DNR with supportive care History of Present Illness: Patient was seen and examined. Poorly responsive. Chart was reviewed For compassionate care - Current Medication List Current Medications: Active Medications Amino Acids (Prosource No Carb Liquid Pkt) 30 ml GT BID@0800,1730 [facility] Last Admin: 05/05/19 10:50 Dose: 30 ml Amiodarone HCl (Cordarone -) 200 mg PO DAILY [facility] Last Admin: 05/05/19 10:52 Dose: 200 mg Apixaban (Eliquis -) 5 mg PEG BID [facility] Last Admin: 05/05/19 10:50 Dose: 5 mg Ascorbic Acid (Vitamin C Oral Solution -) 250 mg GT DAILY [facility] Last Admin: 05/05/19 10:50 Dose: 250 mg Collagenase (Santyl -) 1 applic TP DAILY [facility]; Protocol Last Admin: 05/05/19 11:01 Dose: 1 applic Furosemide (Lasix Injection -) 40 mg IVPUSH DAILY [facility] Last Admin: 05/05/19 10:51 Dose: 40 mg Insulin Aspart (Novolog Vial Sliding Scale -) 1 vial SQ ACHS [facility]; Protocol Last Admin: 05/05/19 11:44 Dose: 8 units Metoprolol Tartrate (Lopressor -) 25 mg PEG BID [facility] Last Admin: 05/05/19 10:51 Dose: 25 mg Metoprolol Tartrate (Lopressor Injection -) 5 mg IVPB Q4H PRN PRN Reason: TACHYCARDIA Multi-Ingredient Ointment (Zinc Oxide) 1 applic TP BID [facility] Last Admin: 05/05/19 11:01 Dose: 1 applic Multivitamins/Minerals (Certavite-Antioxidant Liquid) 15 ml GT DAILY [facility] Last Admin: 05/05/19 10:50 Dose: 15 ml Nystatin (Mycostatin Cream -) 1 applic TP BID [facility] Last Admin: 05/05/19 11:02 Dose: 1 applic Pantoprazole Sodium (Protonix Iv) 40 mg IVPUSH BID [facility] Last Admin: 05/05/19 10:51 Dose: 40 mg Vancomycin HCl (Vancomycin Oral Solution) 125 mg GT Q6HPO [facility] Last Admin: 05/05/19 06:30 Dose: 125 mg Zinc Sulfate (Orazinc -) 220 mg GT DAILY [facility] Last Admin: 05/05/19 10:50 Dose: 220 mg - Objective Vital Signs: Vital Signs Temperature 98.3 F 05/05/19 08:00 Pulse Rate 60 05/05/19 08:00 Respiratory Rate 20 05/05/19 08:00 Blood Pressure 106/55 L 05/05/19 08:00 O2 Sat by Pulse Oximetry (%) 97 05/05/19 01:22 Cardiovascular: Yes: Regular Rate and Rhythm, S1, S2 Respiratory: Yes: Diminished, Mechanically Ventilated Gastrointestinal: Yes: Normal Bowel Sounds, Soft. No: Tenderness Edema: Yes Edema: LLE: 1+, RLE: 1+ Labs: CBC, BMP 05/04/19 05:28 05/04/19 05:28 Problem List - Problems (1) CONOR (acute kidney injury) Code(s): N17.9 - ACUTE KIDNEY FAILURE, UNSPECIFIED (2) Anemia Code(s): D64.9 - ANEMIA, UNSPECIFIED Qualifiers: Iron deficiency anemia type: chronic blood loss (3) Atrial fibrillation with RVR Code(s): I48.91 - UNSPECIFIED ATRIAL FIBRILLATION (4) History of CVA (cerebrovascular accident) Code(s): Z86.73 - PRSNL HX OF TIA (TIA), AND CEREB INFRC W/O RESID DEFICITS (5) Sacral decubitus ulcer, stage III Code(s): L89.153 - PRESSURE ULCER OF SACRAL REGION, STAGE 3 (6) Septic shock Code(s): A41.9 - SEPSIS, UNSPECIFIED ORGANISM; R65.21 - SEVERE SEPSIS WITH SEPTIC SHOCK (7) Acute and chronic respiratory failure Code(s): J96.20 - ACUTE AND CHR RESP FAILURE, UNSP W HYPOXIA OR HYPERCAPNIA (8) CAD (coronary artery disease) Code(s): I25.10 - ATHSCL HEART DISEASE OF [place] CORONARY ARTERY W/O ANG PCTRS Qualifiers: Coronary Disease-Associated Artery/Lesion type: [place] artery [place] vs. transplanted heart: [place] heart Associated angina: without angina Qualified Code(s): I25.10 - Atherosclerotic heart disease of [place] coronary artery without angina pectoris (9) CKD (chronic kidney disease) Code(s): N18.9 - CHRONIC KIDNEY DISEASE, UNSPECIFIED Qualifiers: Chronic kidney disease stage: stage 2 (mild) Qualified Code(s): N18.2 - Chronic kidney disease, stage 2 (mild) (10) CVA (cerebral vascular accident) Code(s): I63.9 - CEREBRAL INFARCTION, UNSPECIFIED Qualifiers: CVA mechanism: embolism (11) Diabetes mellitus Code(s): E11.9 - TYPE 2 DIABETES MELLITUS WITHOUT COMPLICATIONS Qualifiers: Diabetes mellitus type: type 2 Diabetes mellitus fci insulin use: with fci use Diabetes mellitus complication status: with hyperglycemia Qualified Code(s): E11.65 - Type 2 diabetes mellitus with hyperglycemia; 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 (12) Diastolic dysfunction Code(s): I51.89 - OTHER ILL-DEFINED HEART DISEASES (13) S/P mitral valve repair Code(s): Z98.890 - OTHER SPECIFIED POSTPROCEDURAL STATES (14) Severe pulmonary arterial systolic hypertension Code(s): I27.21 - SECONDARY PULMONARY ARTERIAL HYPERTENSION (15) Sick sinus syndrome Code(s): I49.5 - SICK SINUS SYNDROME (16) HTN (hypertension) Code(s): I10 - ESSENTIAL (PRIMARY) HYPERTENSION Qualifiers: Hypertension type: essential hypertension Qualified Code(s): I10 - Essential (primary) hypertension (17) Hyperlipidemia Code(s): E78.5 - HYPERLIPIDEMIA, UNSPECIFIED Qualifiers: Hyperlipidemia type: pure hypercholesterolemia Qualified Code(s): E78.00 - Pure hypercholesterolemia, unspecified; E78.0 - Pure hypercholesterolemia (18) Pacemaker Code(s): Z95.0 - PRESENCE OF CARDIAC PACEMAKER Assessment/Plan 1. UTI, pneumonia, c. diff colitis, sacral decub infection and septic shock 2. CAD with evidence of demand ischemic injury angina pectoris 3. Diastolic LV dysfunction with clinical class 0 NYHA classification LV failure 4. Paroxysmal atrial fibrillation currently in sinus rhythm - atrial pacing [id number] score of 9 on DOAC's/Eliquis 5. Sick sinus syndrome post PPM 6. Post mitral valve repair 7. History of CVA 8. Chronic respiratory failure on mechanical ventilation post tracheostomy 9. HTN 10. Hypercholesterolemia 11. COPD 12. Hypernatremia resolved 13. Hypokalemia resolved 14. Pre-renal azotemia 15. Acute blood loss anemia with history of gastrointestinal bleed PLAN: 1. Antibiotics 2. Lopressor 25 mg BID with uptitration as hemodynamics tolerate 3. Continue Amiodarone 200 mg daily 4. Continue Eliquis 5 mg BID as tolerated 5. IV diuresis as needed to keep even 6. As per Pulmonary service, probable compassionate wean off the vent Supportive care Overall poor prognosis/DNR George Carlson MD
--- NOTE | 2019-05-05 15:06 | PN ---
Progress Note, Physician Chief Complaint: transferred out of ICU History of Present Illness: 79 yearo ld female with PMH CAD, AFIB, SSS S/P PPM, CVA, Chronic respiratory failure, COPD, HTN, DM, GI BLEED, SACRAL STAGE 4 presents to the ED from [facility] for severe sepsis and rapid afib. - Current Medication List Current Medications: Active Medications Amino Acids (Prosource No Carb Liquid Pkt) 30 ml GT BID@0800,1730 [facility] Last Admin: 05/05/19 10:50 Dose: 30 ml Amiodarone HCl (Cordarone -) 200 mg PO DAILY [facility] Last Admin: 05/05/19 10:52 Dose: 200 mg Apixaban (Eliquis -) 5 mg PEG BID [facility] Last Admin: 05/05/19 10:50 Dose: 5 mg Ascorbic Acid (Vitamin C Oral Solution -) 250 mg GT DAILY [facility] Last Admin: 05/05/19 10:50 Dose: 250 mg Collagenase (Santyl -) 1 applic TP DAILY [facility]; Protocol Last Admin: 05/05/19 11:01 Dose: 1 applic Furosemide (Lasix Injection -) 40 mg IVPUSH DAILY [facility] Last Admin: 05/05/19 10:51 Dose: 40 mg Insulin Aspart (Novolog Vial Sliding Scale -) 1 vial SQ ACHS [facility]; Protocol Last Admin: 05/05/19 11:44 Dose: 8 units Metoprolol Tartrate (Lopressor -) 25 mg PEG BID [facility] Last Admin: 05/05/19 10:51 Dose: 25 mg Metoprolol Tartrate (Lopressor Injection -) 5 mg IVPB Q4H PRN PRN Reason: TACHYCARDIA Multi-Ingredient Ointment (Zinc Oxide) 1 applic TP BID [facility] Last Admin: 05/05/19 11:01 Dose: 1 applic Multivitamins/Minerals (Certavite-Antioxidant Liquid) 15 ml GT DAILY [facility] Last Admin: 05/05/19 10:50 Dose: 15 ml Nystatin (Mycostatin Cream -) 1 applic TP BID [facility] Last Admin: 05/05/19 11:02 Dose: 1 applic Pantoprazole Sodium (Protonix Iv) 40 mg IVPUSH BID [facility] Last Admin: 05/05/19 10:51 Dose: 40 mg Vancomycin HCl (Vancomycin Oral Solution) 125 mg GT Q6HPO [facility] Last Admin: 05/05/19 12:14 Dose: 125 mg Zinc Sulfate (Orazinc -) 220 mg GT DAILY [facility] Last Admin: 05/05/19 10:50 Dose: 220 mg - Objective Vital Signs: Vital Signs Temperature 98.3 F 05/05/19 08:00 Pulse Rate 60 05/05/19 08:00 Respiratory Rate 19 05/05/19 12:26 Blood Pressure 106/55 L 05/05/19 08:00 O2 Sat by Pulse Oximetry (%) 96 05/05/19 09:00 Constitutional: Yes: Mild Distress HENT: Yes: Atraumatic, Normocephalic Neck: Yes: Supple, Other (trach) Cardiovascular: Yes: Regular Rate and Rhythm Respiratory: Yes: Accessory Muscle Use, Diminished, Mechanically Ventilated Gastrointestinal: Yes: Soft, Other (peg tube) ...Rectal Exam: Yes: Other (rectal tube) Genitourinary: Yes: [place] Present Musculoskeletal: Yes: Other Extremities: Yes: Other Edema: LUE: 2+, RUE: 2+ Integumentary: Yes: Pressure Ulcer Neurological: Yes: Lethargy, Other Psychiatric: Yes: Alert Labs: CBC, BMP 05/04/19 05:28 05/04/19 05:28 INR, PTT INR 1.11 (0.83-1.09) H 04/24/19 06:00 Problem List - Problems (1) CONOR (acute kidney injury) Assessment/Plan: nephrology following resolved Code(s): N17.9 - ACUTE KIDNEY FAILURE, UNSPECIFIED (2) Abnormal liver function tests Assessment/Plan: GI following lft downtrended Code(s): R94.5 - ABNORMAL RESULTS OF LIVER FUNCTION STUDIES (3) Anemia Assessment/Plan: 10/26 monitor Code(s): D64.9 - ANEMIA, UNSPECIFIED Qualifiers: Iron deficiency anemia type: chronic blood loss (4) Atrial fibrillation with RVR Assessment/Plan: cardiology following amiodarone/eliquis/lopressor Code(s): I48.91 - UNSPECIFIED ATRIAL FIBRILLATION (5) C. difficile diarrhea Assessment/Plan: po vanco ID following Code(s): A04.72 - ENTEROCOLITIS D/T CLOSTRIDIUM DIFFICILE, NOT SPCF RECUR (6) Septic shock Assessment/Plan: ID following IV antbx complete continues on PO vanco urine ecoli, klebsiella blood mrsa ulcer klebsiella, mrsa, ecoli sputum yeast Code(s): A41.9 - SEPSIS, UNSPECIFIED ORGANISM; R65.21 - SEVERE SEPSIS WITH SEPTIC SHOCK (7) Stage 4 skin ulcer of sacral region Assessment/Plan: wound care Code(s): L98.429 - NON-PRESSURE CHRONIC ULCER OF BACK WITH UNSPECIFIED SEVERITY (8) Acute and chronic respiratory failure Assessment/Plan: pulm following vent dependent compassionate weaning this week Code(s): J96.20 - ACUTE AND CHR RESP FAILURE, UNSP W HYPOXIA OR HYPERCAPNIA (9) CAD (coronary artery disease) Assessment/Plan: cont home meds Code(s): I25.10 - ATHSCL HEART DISEASE OF [place] CORONARY ARTERY W/O ANG PCTRS Qualifiers: Coronary Disease-Associated Artery/Lesion type: [place] artery [place] vs. transplanted heart: [place] heart Associated angina: without angina Qualified Code(s): I25.10 - Atherosclerotic heart disease of [place] coronary artery without angina pectoris
[2019-05-05 15:37] VITALS: BMI 27.8
[2019-05-05] MEDS ORDERED: VANCOMYCIN 1 GRAM (PRE-DOCKED) 1,000 MG/250 ML BAG IVPB ONE (17:30)
[2019-05-06] MEDS: INSULIN SLIDING SCALE (NOVOLOG) 1 VIAL SQ SCH ×4 (06:17→23:35)
[2019-05-06] MEDS: VANCOMYCIN 250 MG/5 ML ORAL SOLUTION GT SCH ×4 (06:18→23:14)
--- NOTE | 2019-05-06 10:26 | PN ---
Progress Note, Physician History of Present Illness: Remains off pressors. Increased FIO2 60% PEEP 5. Increased anasarca and weight gain since admission, poorly responsive, possible aspiration. - Current Medication List Current Medications: Active Medications Amino Acids (Prosource No Carb Liquid Pkt) 30 ml GT BID@0800,1730 [facility] Last Admin: 05/05/19 17:39 Dose: 30 ml Amiodarone HCl (Cordarone -) 200 mg PO DAILY [facility] Last Admin: 05/05/19 10:52 Dose: 200 mg Apixaban (Eliquis -) 5 mg PEG BID [facility] Last Admin: 05/05/19 22:18 Dose: 5 mg Ascorbic Acid (Vitamin C Oral Solution -) 250 mg GT DAILY [facility] Last Admin: 05/05/19 10:50 Dose: 250 mg Collagenase (Santyl -) 1 applic TP DAILY [facility]; Protocol Last Admin: 05/05/19 11:01 Dose: 1 applic Furosemide (Lasix Injection -) 40 mg IVPUSH DAILY [facility] Last Admin: 05/05/19 10:51 Dose: 40 mg Insulin Aspart (Novolog Vial Sliding Scale -) 1 vial SQ ACHS [facility]; Protocol Last Admin: 05/06/19 06:17 Dose: 8 units Metoprolol Tartrate (Lopressor -) 25 mg PEG BID [facility] Last Admin: 05/05/19 22:18 Dose: 25 mg Metoprolol Tartrate (Lopressor Injection -) 5 mg IVPB Q4H PRN PRN Reason: TACHYCARDIA Multi-Ingredient Ointment (Zinc Oxide) 1 applic TP BID [facility] Last Admin: 05/05/19 22:18 Dose: 1 applic Multivitamins/Minerals (Certavite-Antioxidant Liquid) 15 ml GT DAILY [facility] Last Admin: 05/05/19 10:50 Dose: 15 ml Nystatin (Mycostatin Cream -) 1 applic TP BID [facility] Last Admin: 05/05/19 22:18 Dose: 1 applic Pantoprazole Sodium (Protonix Iv) 40 mg IVPUSH BID [facility] Last Admin: 05/05/19 22:18 Dose: 40 mg Vancomycin HCl (Vancomycin Oral Solution) 125 mg GT Q6HPO [facility] Last Admin: 05/06/19 06:18 Dose: 125 mg Zinc Sulfate (Orazinc -) 220 mg GT DAILY [facility] Last Admin: 05/05/19 10:50 Dose: 220 mg - Objective Vital Signs: Vital Signs Temperature 97.5 F L 05/06/19 06:00 Pulse Rate 63 05/06/19 06:05 Respiratory Rate 18 05/06/19 06:05 Blood Pressure 132/88 05/06/19 06:00 O2 Sat by Pulse Oximetry (%) 97 05/06/19 06:05 Constitutional: Yes: No Distress, Calm Neck: Yes: Other (Tracheostomy) Respiratory: Yes: Mechanically Ventilated, Rhonchi Gastrointestinal: Yes: Normal Bowel Sounds, Soft, Other (PEG in place) Edema: Yes Edema: LUE: 2+, RUE: 2+, LLE: 2+, RLE: 2+ Labs: CBC, BMP 05/04/19 05:28 05/04/19 05:28 INR, PTT INR 1.11 (0.83-1.09) H 04/24/19 06:00 Problem List - Problems (1) Anemia Code(s): D64.9 - ANEMIA, UNSPECIFIED Qualifiers: Qualified Code(s): D50.0 - Iron deficiency anemia secondary to blood loss ( chronic) (2) C. difficile diarrhea Code(s): A04.72 - ENTEROCOLITIS D/T CLOSTRIDIUM DIFFICILE, NOT SPCF RECUR (3) Septic shock Code(s): A41.9 - SEPSIS, UNSPECIFIED ORGANISM; R65.21 - SEVERE SEPSIS WITH SEPTIC SHOCK (4) Stage 4 skin ulcer of sacral region Code(s): L98.429 - NON-PRESSURE CHRONIC ULCER OF BACK WITH UNSPECIFIED SEVERITY (5) A-fib Code(s): I48.91 - UNSPECIFIED ATRIAL FIBRILLATION Qualifiers: Qualified Code(s): I48.11 - Longstanding persistent atrial fibrillation (6) Angiodysplasia of colon with hemorrhage Code(s): K55.21 - ANGIODYSPLASIA OF COLON WITH HEMORRHAGE (7) CAD (coronary artery disease) Code(s): I25.10 - ATHSCL HEART DISEASE OF [place] CORONARY ARTERY W/O ANG PCTRS Qualifiers: Qualified Code(s): I25.10 - Atherosclerotic heart disease of [place] coronary artery without angina pectoris (8) CVA (cerebral vascular accident) Code(s): I63.9 - CEREBRAL INFARCTION, UNSPECIFIED (9) Demand ischemia Code(s): I24.8 - OTHER FORMS OF ACUTE ISCHEMIC HEART DISEASE (10) Diabetes mellitus Code(s): E11.9 - TYPE 2 DIABETES MELLITUS WITHOUT COMPLICATIONS Qualifiers: Qualified Code(s): E11.65 - Type 2 diabetes mellitus with hyperglycemia; Z79.4 - residential (current) use of insulin (11) Diastolic dysfunction Code(s): I51.89 - OTHER ILL-DEFINED HEART DISEASES (12) Elevated troponin I level Code(s): R74.8 - ABNORMAL LEVELS OF OTHER SERUM ENZYMES (13) GIB (gastrointestinal bleeding) Code(s): K92.2 - GASTROINTESTINAL HEMORRHAGE, UNSPECIFIED Qualifiers: Qualified Code(s): K92.2 - Gastrointestinal hemorrhage, unspecified (14) Hemiparesis and other late effects of cerebrovascular accident Code(s): I69.359 - HEMIPLGA FOLLOWING CEREBRAL INFARCTION AFFECTING UNSP SIDE; I69.398 - OTHER SEQUELAE OF CEREBRAL INFARCTION (15) S/P mitral valve repair Code(s): Z98.890 - OTHER SPECIFIED POSTPROCEDURAL STATES (16) Ventilator dependent Code(s): Z99.11 - DEPENDENCE ON RESPIRATOR [VENTILATOR] STATUS Assessment/Plan ASSESSMENT: 1. UTI, PNA, c. diff colitis, sacral decub infxn, septic shock, clinically resolving 2. CAD with evidence of demand ischemic injury angina pectoris 3. Diastolic LV dysfunction with clinical class 0 NYHA classification LV failure 4. Paroxysmal atrial fibrillation with RVR currently in sinus rhythm- atrial pacing [id number] score of 9 on DOAC's/Eliquis 5. Sick sinus syndrome post PPM 6. Post mitral valve repair 7. History of CVA 8. Chronic respiratory failure on mechanical ventilation post tracheostomy 9. HTN 10. Hypercholesterolemia 11. COPD 12. Hypernatremia resolved 13. Hypokalemia resolved 14. Pre-renal azotemia 15. Acute blood loss anemia with history of gastrointestinal bleed 16. Sacral decubitus ulcer 17. C. diff colitis PLAN: 1. Antibiotics with f/u C&S as per the primary team 2. Monitor off pressors 3. Continue Lopressor 25 bid with uptitration as hemodynamics tolerate 4. Continue Amiodarone 200 mg daily 5. Add ACEI or ARBS unless contraindicated, hemodynamics permitting 6. Continue Eliquis 5 bid with close monitoring of Hg, transfuse to maintain Hg equal or > 8.0, protonix 7. No intervention indicated for the above noted elevated Troponin I level consistent with demand ischemia 8. IV diuresis as needed to keep even 9. Patient has been made DNR / comfort measures by daughter/HCP due to overall poor condition. For eventual compassionate wean.
[2019-05-06] MEDS: AMINO ACIDS/PROTEIN HYDROLYS 30 ML LIQUID.PKT GT SCH ×2 (10:37→16:59)
[2019-05-06] MEDS: ZINC SULFATE 220 MG CAPSULE (FP) GT SCH (10:37)
[2019-05-06] MEDS: METOPROLOL TARTRATE 25 MG TABLET (FP) PEG SCH ×2 (10:38→23:15)
[2019-05-06] MEDS: AMIODARONE HCL 200 MG TABLET PO SCH (10:38)
[2019-05-06] MEDS: FUROSEMIDE 40 MG/4 ML INJECTABLE VIAL IVPUSH SCH (10:38)
[2019-05-06] MEDS: APIXABAN 5 MG TABLET PEG SCH ×2 (10:38→23:15)
[2019-05-06] MEDS: PANTOPRAZOLE SODIUM 40 MG VIAL IVPUSH SCH ×2 (10:38→23:15)
[2019-05-06] MEDS: COLLAGENASE CLOSTRIDIUM HIST. 30 GRAMS TUBE TP SCH (10:39)
[2019-05-06] MEDS: NYSTATIN 100,000 UNIT/GM TOPICAL CREAM 15 GM TUBE TP SCH ×2 (10:39→23:36)
[2019-05-06] MEDS: ZINC OXIDE 20% TOPICAL OINTMENT 30 GM TUBE TP SCH ×2 (10:39→23:35)
[2019-05-06] MEDS ORDERED: PT OWN MED DRAWER 7, Y5N ONE ×2 (10:42→11:02)
[2019-05-06] MEDS: ASCORBIC ACID 500 MG/5 ML UNIT DOSE CUP GT SCH (10:43)
[2019-05-06] MEDS ORDERED: INSULIN (NOVOLOG) ASPART 100 UNITS/ML 10ML VIAL ONE ×3 (10:54→17:20)
--- NOTE | 2019-05-06 13:26 | PN ---
Progress Note, Physician History of Present Illness: pulmonary unresponsive on vent support ac mode,hypoxic on fio2 40%,tachypneic - Current Medication List Current Medications: Active Medications Amino Acids (Prosource No Carb Liquid Pkt) 30 ml GT BID@0800,1730 [facility] Last Admin: 05/06/19 10:37 Dose: 30 ml Amiodarone HCl (Cordarone -) 200 mg PO DAILY [facility] Last Admin: 05/06/19 10:38 Dose: 200 mg Apixaban (Eliquis -) 5 mg PEG BID [facility] Last Admin: 05/06/19 10:38 Dose: 5 mg Ascorbic Acid (Vitamin C Oral Solution -) 250 mg GT DAILY [facility] Last Admin: 05/06/19 10:43 Dose: 250 mg Collagenase (Santyl -) 1 applic TP DAILY [facility]; Protocol Last Admin: 05/06/19 10:39 Dose: 1 applic Furosemide (Lasix Injection -) 40 mg IVPUSH DAILY [facility] Last Admin: 05/06/19 10:38 Dose: 40 mg Insulin Aspart (Novolog Vial Sliding Scale -) 1 vial SQ ACHS [facility]; Protocol Last Admin: 05/06/19 11:21 Dose: 6 units Metoprolol Tartrate (Lopressor -) 25 mg PEG BID [facility] Last Admin: 05/06/19 10:38 Dose: 25 mg Metoprolol Tartrate (Lopressor Injection -) 5 mg IVPB Q4H PRN PRN Reason: TACHYCARDIA Multi-Ingredient Ointment (Zinc Oxide) 1 applic TP BID [facility] Last Admin: 05/06/19 10:39 Dose: 1 applic Multivitamins/Minerals (Certavite-Antioxidant Liquid) 15 ml GT DAILY [facility] Last Admin: 05/05/19 10:50 Dose: 15 ml Nystatin (Mycostatin Cream -) 1 applic TP BID [facility] Last Admin: 05/06/19 10:39 Dose: 1 applic Pantoprazole Sodium (Protonix Iv) 40 mg IVPUSH BID [facility] Last Admin: 05/06/19 10:38 Dose: 40 mg Vancomycin HCl (Vancomycin Oral Solution) 125 mg GT Q6HPO [facility] Last Admin: 05/06/19 11:13 Dose: 125 mg Zinc Sulfate (Orazinc -) 220 mg GT DAILY [facility] Last Admin: 05/06/19 10:37 Dose: 220 mg - Objective Vital Signs: Vital Signs Temperature 97.5 F L 05/06/19 06:00 Pulse Rate 71 05/06/19 08:00 Respiratory Rate 18 05/06/19 12:23 Blood Pressure 132/88 05/06/19 06:00 O2 Sat by Pulse Oximetry (%) 97 05/06/19 08:00 Constitutional: Yes: Well Nourished, Other (unresponsive) Eyes: Yes: WNL HENT: Yes: WNL Neck: Yes: Supple (trach) Cardiovascular: Yes: Pulse Irregular, S1, S2 Respiratory: Yes: Rhonchi (scattered rhonchi) Gastrointestinal: Yes: Normal Bowel Sounds, Soft Extremities: Yes: WNL Edema: No Labs: Problem List - Problems (1) Atrial fibrillation with RVR Code(s): I48.91 - UNSPECIFIED ATRIAL FIBRILLATION (2) Severe sepsis Code(s): A41.9 - SEPSIS, UNSPECIFIED ORGANISM; R65.20 - SEVERE SEPSIS WITHOUT SEPTIC SHOCK (3) CAD (coronary artery disease) Code(s): I25.10 - ATHSCL HEART DISEASE OF [place] CORONARY ARTERY W/O ANG PCTRS Qualifiers: Coronary Disease-Associated Artery/Lesion type: [place] artery [place] vs. transplanted heart: [place] heart Associated angina: without angina Qualified Code(s): I25.10 - Atherosclerotic heart disease of [place] coronary artery without angina pectoris (4) CHF exacerbation Code(s): I50.9 - HEART FAILURE, UNSPECIFIED Qualifiers: Heart failure type: unspecified Qualified Code(s): I50.9 - Heart failure, unspecified (5) CVA (cerebral vascular accident) Code(s): I63.9 - CEREBRAL INFARCTION, UNSPECIFIED Qualifiers: CVA mechanism: embolism (6) Chronic respiratory failure Code(s): J96.10 - CHRONIC RESPIRATORY FAILURE, UNSP W HYPOXIA OR HYPERCAPNIA (7) Functional quadriplegia Code(s): R53.2 - FUNCTIONAL QUADRIPLEGIA (8) Hemiparesis and other late effects of cerebrovascular accident Code(s): I69.359 - HEMIPLGA FOLLOWING CEREBRAL INFARCTION AFFECTING UNSP SIDE; I69.398 - OTHER SEQUELAE OF CEREBRAL INFARCTION (9) Ventilator dependent Code(s): Z99.11 - DEPENDENCE ON RESPIRATOR [VENTILATOR] STATUS Assessment/Plan ASSESSMENT AND PLAN: Respiratory failure UTI Pneumonia Suspected Sacral Decubitus Ulcer Infection C Diff Colitis Septic Shock resolving GI Bleed likely Upper Acute Blood Loss Anemia Atrial Fibrillation with RVR CAD COPD HTN DM h/o CVA - Patient has been made DNR / comfort measures by daughter/HCP due to overall poor condition. For eventual compassionate wean. - continue volume assist control - DVT/GI prophylaxis - morphine for comfort - poor overall prognosis DR SALAZAR
--- NOTE | 2019-05-06 14:38 | PN ---
Progress Note, Physician Chief Complaint: transferred out of ICU comfort measures, no labs tried to reach daughter pao, left voicemail History of Present Illness: 79 yearo ld female with PMH CAD, AFIB, SSS S/P PPM, CVA, Chronic respiratory failure, COPD, HTN, DM, GI BLEED, SACRAL STAGE 4 presents to the ED from [facility] for severe sepsis and rapid afib. - Current Medication List Current Medications: Active Medications Amino Acids (Prosource No Carb Liquid Pkt) 30 ml GT BID@0800,1730 [facility] Last Admin: 05/06/19 10:37 Dose: 30 ml Amiodarone HCl (Cordarone -) 200 mg PO DAILY [facility] Last Admin: 05/06/19 10:38 Dose: 200 mg Apixaban (Eliquis -) 5 mg PEG BID [facility] Last Admin: 05/06/19 10:38 Dose: 5 mg Ascorbic Acid (Vitamin C Oral Solution -) 250 mg GT DAILY [facility] Last Admin: 05/06/19 10:43 Dose: 250 mg Collagenase (Santyl -) 1 applic TP DAILY [facility]; Protocol Last Admin: 05/06/19 10:39 Dose: 1 applic Furosemide (Lasix Injection -) 40 mg IVPUSH DAILY [facility] Last Admin: 05/06/19 10:38 Dose: 40 mg Insulin Aspart (Novolog Vial Sliding Scale -) 1 vial SQ ACHS [facility]; Protocol Last Admin: 05/06/19 11:21 Dose: 6 units Metoprolol Tartrate (Lopressor -) 25 mg PEG BID [facility] Last Admin: 05/06/19 10:38 Dose: 25 mg Metoprolol Tartrate (Lopressor Injection -) 5 mg IVPB Q4H PRN PRN Reason: TACHYCARDIA Morphine Sulfate (Morphine Sulfate) 1 mg IVPUSH Q3H PRN PRN Reason: vent dependent,resp distress Multi-Ingredient Ointment (Zinc Oxide) 1 applic TP BID [facility] Last Admin: 05/06/19 10:39 Dose: 1 applic Multivitamins/Minerals (Certavite-Antioxidant Liquid) 15 ml GT DAILY [facility] Last Admin: 05/05/19 10:50 Dose: 15 ml Nystatin (Mycostatin Cream -) 1 applic TP BID [facility] Last Admin: 05/06/19 10:39 Dose: 1 applic Pantoprazole Sodium (Protonix Iv) 40 mg IVPUSH BID [facility] Last Admin: 05/06/19 10:38 Dose: 40 mg Vancomycin HCl (Vancomycin Oral Solution) 125 mg GT Q6HPO [facility] Last Admin: 05/06/19 11:13 Dose: 125 mg Zinc Sulfate (Orazinc -) 220 mg GT DAILY [facility] Last Admin: 05/06/19 10:37 Dose: 220 mg - Objective Vital Signs: Vital Signs Temperature 97.5 F L 05/06/19 06:00 Pulse Rate 71 05/06/19 08:00 Respiratory Rate 18 05/06/19 12:23 Blood Pressure 132/88 05/06/19 06:00 O2 Sat by Pulse Oximetry (%) 97 05/06/19 08:00 Constitutional: Yes: Other HENT: Yes: Atraumatic, Normocephalic Neck: Yes: Supple, Other (trach) Cardiovascular: Yes: Tachycardia Respiratory: Yes: Mechanically Ventilated Gastrointestinal: Yes: Normal Bowel Sounds, Soft, Other (rectal tube) Genitourinary: Yes: [place] Present Musculoskeletal: Yes: Other Extremities: Yes: Other Neurological: Yes: Other Labs: CBC, BMP 05/04/19 05:28 05/04/19 05:28 INR, PTT INR 1.11 (0.83-1.09) H 04/24/19 06:00 Problem List - Problems (1) Acute and chronic respiratory failure Assessment/Plan: pulm following vent dependent compassionate weaning this week morphine added for resp distress prn pall care on case Code(s): J96.20 - ACUTE AND CHR RESP FAILURE, UNSP W HYPOXIA OR HYPERCAPNIA (2) CONOR (acute kidney injury) Assessment/Plan: nephrology following resolved Code(s): N17.9 - ACUTE KIDNEY FAILURE, UNSPECIFIED (3) Abnormal liver function tests Assessment/Plan: GI following lft downtrended no further work up Code(s): R94.5 - ABNORMAL RESULTS OF LIVER FUNCTION STUDIES (4) Anemia Assessment/Plan: 10/26 no further lab work Code(s): D64.9 - ANEMIA, UNSPECIFIED Qualifiers: Iron deficiency anemia type: chronic blood loss (5) Atrial fibrillation with RVR Assessment/Plan: cardiology following amiodarone/eliquis/lopressor Code(s): I48.91 - UNSPECIFIED ATRIAL FIBRILLATION (6) C. difficile diarrhea Assessment/Plan: po vanco ID following Code(s): A04.72 - ENTEROCOLITIS D/T CLOSTRIDIUM DIFFICILE, NOT SPCF RECUR (7) Septic shock Assessment/Plan: ID following IV antbx complete continues on PO vanco urine ecoli, klebsiella blood mrsa ulcer klebsiella, mrsa, ecoli sputum yeast Code(s): A41.9 - SEPSIS, UNSPECIFIED ORGANISM; R65.21 - SEVERE SEPSIS WITH SEPTIC SHOCK (8) Stage 4 skin ulcer of sacral region Assessment/Plan: wound care Code(s): L98.429 - NON-PRESSURE CHRONIC ULCER OF BACK WITH UNSPECIFIED SEVERITY (9) CAD (coronary artery disease) Assessment/Plan: cont home meds Code(s): I25.10 - ATHSCL HEART DISEASE OF [place] CORONARY ARTERY W/O ANG PCTRS Qualifiers: Coronary Disease-Associated Artery/Lesion type: [place] artery [place] vs. transplanted heart: [place] heart Associated angina: without angina Qualified Code(s): I25.10 - Atherosclerotic heart disease of [place] coronary artery without angina pectoris
[2019-05-06] MEDS: MORPHINE SULFATE 2 MG/ML VIAL IVPUSH PRN ×2 (17:01→23:15)
[2019-05-06] MEDS: MULTIVIT-MINERALS ORAL LIQUID GT SCH (17:20)
[2019-05-07] MEDS: MORPHINE SULFATE 2 MG/ML VIAL IVPUSH PRN ×3 (03:30→17:12)
[2019-05-07] MEDS: VANCOMYCIN 250 MG/5 ML ORAL SOLUTION GT SCH ×3 (06:20→18:29)
[2019-05-07] MEDS: INSULIN SLIDING SCALE (NOVOLOG) 1 VIAL SQ SCH ×3 (06:22→17:08)
--- NOTE | 2019-05-07 09:42 | PN ---
Progress Note, Physician History of Present Illness: Increased FIO2 60% PEEP 5. Increased anasarca and weight gain since admission, poorly responsive, possible aspiration. Requested comfort measures and plan is for compassionate wean likely on 05/08 or 05/09. - Current Medication List Current Medications: Active Medications Amino Acids (Prosource No Carb Liquid Pkt) 30 ml GT BID@0800,1730 [facility] Last Admin: 05/06/19 16:59 Dose: 30 ml Documented by: Amiodarone HCl (Cordarone -) 200 mg PO DAILY [facility] Last Admin: 05/06/19 10:38 Dose: 200 mg Documented by: Apixaban (Eliquis -) 5 mg PEG BID [facility] Last Admin: 05/06/19 23:15 Dose: 5 mg Documented by: Ascorbic Acid (Vitamin C Oral Solution -) 250 mg GT DAILY [facility] Last Admin: 05/06/19 10:43 Dose: 250 mg Documented by: Collagenase (Santyl -) 1 applic TP DAILY [facility]; Protocol Last Admin: 05/06/19 10:39 Dose: 1 applic Documented by: Furosemide (Lasix Injection -) 40 mg IVPUSH DAILY [facility] Last Admin: 05/06/19 10:38 Dose: 40 mg Documented by: Insulin Aspart (Novolog Vial Sliding Scale -) 1 vial SQ ACHS [facility]; Protocol Last Admin: 05/07/19 06:22 Dose: 8 units Documented by: Metoprolol Tartrate (Lopressor -) 25 mg PEG BID [facility] Last Admin: 05/06/19 23:15 Dose: 25 mg Documented by: Metoprolol Tartrate (Lopressor Injection -) 5 mg IVPB Q4H PRN PRN Reason: TACHYCARDIA Morphine Sulfate (Morphine Sulfate) 1 mg IVPUSH Q3H PRN PRN Reason: vent dependent,resp distress Last Admin: 05/07/19 03:30 Dose: 1 mg Documented by: Multi-Ingredient Ointment (Zinc Oxide) 1 applic TP BID [facility] Last Admin: 05/06/19 23:35 Dose: 1 applic Documented by: Multivitamins/Minerals (Certavite-Antioxidant Liquid) 15 ml GT DAILY [facility] Last Admin: 05/06/19 17:20 Dose: 15 ml Documented by: Nystatin (Mycostatin Cream -) 1 applic TP BID [facility] Last Admin: 05/06/19 23:36 Dose: 1 applic Documented by: Pantoprazole Sodium (Protonix Iv) 40 mg IVPUSH BID [facility] Last Admin: 05/06/19 23:15 Dose: 40 mg Documented by: Vancomycin HCl (Vancomycin Oral Solution) 125 mg GT Q6HPO [facility] Last Admin: 05/07/19 06:20 Dose: 125 mg Documented by: Zinc Sulfate (Orazinc -) 220 mg GT DAILY [facility] Last Admin: 05/06/19 10:37 Dose: 220 mg Documented by: - Objective Vital Signs: Vital Signs Temperature 98.1 F 05/07/19 08:57 Pulse Rate 60 05/07/19 08:57 Respiratory Rate 18 05/07/19 08:57 Blood Pressure 138/70 05/07/19 08:57 O2 Sat by Pulse Oximetry (%) 98 05/06/19 09:00 Constitutional: Yes: No Distress, Calm Neck: Yes: Other (Tracheostomy) Respiratory: Yes: Mechanically Ventilated, Rhonchi Gastrointestinal: Yes: Normal Bowel Sounds, Soft, Other (PEG in place) Genitourinary: Yes: [place] Present Edema: Yes Edema: LLE: 1+, RLE: 1+ Labs: CBC, BMP 05/04/19 05:28 05/04/19 05:28 INR, PTT INR 1.11 (0.83-1.09) H 04/24/19 06:00 Problem List - Problems (1) Anemia Code(s): D64.9 - ANEMIA, UNSPECIFIED Qualifiers: Iron deficiency anemia type: chronic blood loss (2) C. difficile diarrhea Code(s): A04.72 - ENTEROCOLITIS D/T CLOSTRIDIUM DIFFICILE, NOT SPCF RECUR (3) Septic shock Code(s): A41.9 - SEPSIS, UNSPECIFIED ORGANISM; R65.21 - SEVERE SEPSIS WITH SEPTIC SHOCK (4) Stage 4 skin ulcer of sacral region Code(s): L98.429 - NON-PRESSURE CHRONIC ULCER OF BACK WITH UNSPECIFIED SEVERITY (5) A-fib Code(s): I48.91 - UNSPECIFIED ATRIAL FIBRILLATION Qualifiers: Atrial fibrillation type: longstanding persistent Qualified Code(s): I48.11 - Longstanding persistent atrial fibrillation (6) Angiodysplasia of colon with hemorrhage Code(s): K55.21 - ANGIODYSPLASIA OF COLON WITH HEMORRHAGE (7) CAD (coronary artery disease) Code(s): I25.10 - ATHSCL HEART DISEASE OF [place] CORONARY ARTERY W/O ANG PCTRS Qualifiers: Coronary Disease-Associated Artery/Lesion type: [place] artery [place] vs. transplanted heart: [place] heart Associated angina: without angina Qualified Code(s): I25.10 - Atherosclerotic heart disease of [place] coronary artery without angina pectoris (8) CVA (cerebral vascular accident) Code(s): I63.9 - CEREBRAL INFARCTION, UNSPECIFIED Qualifiers: CVA mechanism: embolism (9) Demand ischemia Code(s): I24.8 - OTHER FORMS OF ACUTE ISCHEMIC HEART DISEASE (10) Diabetes mellitus Code(s): E11.9 - TYPE 2 DIABETES MELLITUS WITHOUT COMPLICATIONS Qualifiers: Diabetes mellitus type: type 2 Diabetes mellitus mcfp insulin use: with mcfp use Diabetes mellitus complication status: with hyperglycemia Qualified Code(s): E11.65 - Type 2 diabetes mellitus with hyperglycemia; Z79.4 - alf (current) use of insulin (11) Diastolic dysfunction Code(s): I51.89 - OTHER ILL-DEFINED HEART DISEASES (12) Elevated troponin I level Code(s): R74.8 - ABNORMAL LEVELS OF OTHER SERUM ENZYMES (13) GIB (gastrointestinal bleeding) Code(s): K92.2 - GASTROINTESTINAL HEMORRHAGE, UNSPECIFIED Qualifiers: GI bleed type/associated pathology: unspecified gastrointestinal hemorrhage type Qualified Code(s): K92.2 - Gastrointestinal hemorrhage, unspecified (14) Hemiparesis and other late effects of cerebrovascular accident Code(s): I69.359 - HEMIPLGA FOLLOWING CEREBRAL INFARCTION AFFECTING UNSP SIDE; I69.398 - OTHER SEQUELAE OF CEREBRAL INFARCTION (15) S/P mitral valve repair Code(s): Z98.890 - OTHER SPECIFIED POSTPROCEDURAL STATES (16) Ventilator dependent Code(s): Z99.11 - DEPENDENCE ON RESPIRATOR [VENTILATOR] STATUS Assessment/Plan ASSESSMENT: 1. UTI, PNA, c. diff colitis, sacral decub infxn, septic shock, clinically resolving 2. CAD with evidence of demand ischemic injury angina pectoris 3. Diastolic LV dysfunction with clinical class 0 NYHA classification LV failure 4. Paroxysmal atrial fibrillation with RVR currently in sinus rhythm- atrial pacing [id number] score of 9 on DOAC's/Eliquis 5. Sick sinus syndrome post PPM 6. Post mitral valve repair 7. History of CVA 8. Chronic respiratory failure on mechanical ventilation post tracheostomy 9. HTN 10. Hypercholesterolemia 11. COPD 12. Hypernatremia resolved 13. Hypokalemia resolved 14. Pre-renal azotemia 15. Acute blood loss anemia with history of gastrointestinal bleed 16. Sacral decubitus ulcer 17. C. diff colitis PLAN: 1. Antibiotics with f/u C&S as per the primary team 2. Monitor off pressors 3. Continue Lopressor 25 bid with uptitration as hemodynamics tolerate 4. Continue Amiodarone 200 mg daily 5. Add ACEI or ARBS unless contraindicated, hemodynamics permitting 6. Continue Eliquis 5 bid with close monitoring of Hg, transfuse to maintain Hg equal or > 8.0, protonix 7. No intervention indicated for the above noted elevated Troponin I level consistent with demand ischemia 8. IV diuresis as needed to keep even 9. Patient has been made DNR / comfort measures by daughter/HCP due to overall poor condition. For eventual compassionate wean.
--- NOTE | 2019-05-07 10:25 | PN ---
Progress Note (short form) - Note Progress Note: NAD on AC Mode of vent. Requested comfort measures and plan is for compassionate wean likely on 05/08 or 05/09. Remains poorly responsive. Intake & Output 05/04/19 05/05/19 05/06/19 05/07/19 23:59 23:59 23:59 23:59 Intake Total 910 1500 2000 Output Total 1300 1050 2100 400 Balance -390 450 -100 -400 Weight 183 lb 1.6 oz Last Vital Signs Temp Pulse Resp BP Pulse Ox 98.1 F 60 18 138/70 98 05/07/19 08:57 05/07/19 08:57 05/07/19 08:57 05/07/19 08:57 05/06/19 09:00 Active Medications Amino Acids (Prosource No Carb Liquid Pkt) 30 ml GT BID@0800,1730 [facility] Last Admin: 05/06/19 16:59 Dose: 30 ml Documented by: Amiodarone HCl (Cordarone -) 200 mg PO DAILY [facility] Last Admin: 05/06/19 10:38 Dose: 200 mg Documented by: Apixaban (Eliquis -) 5 mg PEG BID [facility] Last Admin: 05/06/19 23:15 Dose: 5 mg Documented by: Ascorbic Acid (Vitamin C Oral Solution -) 250 mg GT DAILY [facility] Last Admin: 05/06/19 10:43 Dose: 250 mg Documented by: Collagenase (Santyl -) 1 applic TP DAILY [facility]; Protocol Last Admin: 05/06/19 10:39 Dose: 1 applic Documented by: Furosemide (Lasix Injection -) 40 mg IVPUSH DAILY [facility] Last Admin: 05/06/19 10:38 Dose: 40 mg Documented by: Insulin Aspart (Novolog Vial Sliding Scale -) 1 vial SQ ACHS [facility]; Protocol Last Admin: 05/07/19 06:22 Dose: 8 units Documented by: Metoprolol Tartrate (Lopressor -) 25 mg PEG BID [facility] Last Admin: 05/06/19 23:15 Dose: 25 mg Documented by: Metoprolol Tartrate (Lopressor Injection -) 5 mg IVPB Q4H PRN PRN Reason: TACHYCARDIA Morphine Sulfate (Morphine Sulfate) 1 mg IVPUSH Q3H PRN PRN Reason: vent dependent,resp distress Last Admin: 05/07/19 03:30 Dose: 1 mg Documented by: Multi-Ingredient Ointment (Zinc Oxide) 1 applic TP BID [facility] Last Admin: 05/06/19 23:35 Dose: 1 applic Documented by: Multivitamins/Minerals (Certavite-Antioxidant Liquid) 15 ml GT DAILY [facility] Last Admin: 05/06/19 17:20 Dose: 15 ml Documented by: Nystatin (Mycostatin Cream -) 1 applic TP BID [facility] Last Admin: 05/06/19 23:36 Dose: 1 applic Documented by: Pantoprazole Sodium (Protonix Iv) 40 mg IVPUSH BID [facility] Last Admin: 05/06/19 23:15 Dose: 40 mg Documented by: Vancomycin HCl (Vancomycin Oral Solution) 125 mg GT Q6HPO [facility] Last Admin: 05/07/19 06:20 Dose: 125 mg Documented by: Zinc Sulfate (Orazinc -) 220 mg GT DAILY [facility] Last Admin: 05/06/19 10:37 Dose: 220 mg Documented by: Gen: vented, poorly responsive Heart: RRR Lung: scattered rhonchi Abd: soft, nontender Ext: + edema Laboratory Results - last 24 hr 05/06/19 05/06/19 05/06/19 11:04 16:56 23:34 POC Glucometer 262 302 254 05/07/19 06:08 POC Glucometer 310 ASSESSMENT AND PLAN: UTI Pneumonia Suspected Sacral Decubitus Ulcer Infection C Diff Colitis Septic Shock resolving GI Bleed likely Upper Acute Blood Loss Anemia Atrial Fibrillation with RVR CAD COPD HTN DM h/o CVA - Patient has been made DNR / comfort measures by daughter/HCP due to overall poor condition. For eventual compassionate wean. - ABX - continue volume assist control - DVT/GI prophylaxis - poor overall prognosis Dr Stover
[2019-05-07] MEDS: FUROSEMIDE 40 MG/4 ML INJECTABLE VIAL IVPUSH SCH (11:14)
[2019-05-07] MEDS: ZINC SULFATE 220 MG CAPSULE (FP) GT SCH (11:14)
[2019-05-07] MEDS: AMINO ACIDS/PROTEIN HYDROLYS 30 ML LIQUID.PKT GT SCH ×2 (11:15→17:03)
[2019-05-07] MEDS: AMIODARONE HCL 200 MG TABLET PO SCH (11:23)
[2019-05-07] MEDS: MULTIVIT-MINERALS ORAL LIQUID GT SCH (11:24)
[2019-05-07] MEDS: NYSTATIN 100,000 UNIT/GM TOPICAL CREAM 15 GM TUBE TP SCH (11:25)
[2019-05-07] MEDS: APIXABAN 5 MG TABLET PEG SCH (11:25)
[2019-05-07] MEDS: METOPROLOL TARTRATE 25 MG TABLET (FP) PEG SCH (11:25)
[2019-05-07] MEDS: ASCORBIC ACID 500 MG/5 ML UNIT DOSE CUP GT SCH (11:25)
[2019-05-07] MEDS: PANTOPRAZOLE SODIUM 40 MG VIAL IVPUSH SCH (11:25)
[2019-05-07] MEDS: COLLAGENASE CLOSTRIDIUM HIST. 30 GRAMS TUBE TP SCH (11:25)
[2019-05-07] MEDS: ZINC OXIDE 20% TOPICAL OINTMENT 30 GM TUBE TP SCH (12:06)
--- NOTE | 2019-05-07 14:22 | PN ---
Progress Note, Physician Chief Complaint: transferred out of ICU comfort measures, no labs tried to reach daughter pao, left voicemail History of Present Illness: 79 yearo ld female with PMH CAD, AFIB, SSS S/P PPM, CVA, Chronic respiratory failure, COPD, HTN, DM, GI BLEED, SACRAL STAGE 4 presents to the ED from [facility] for severe sepsis and rapid afib. - Current Medication List Current Medications: Active Medications Amino Acids (Prosource No Carb Liquid Pkt) 30 ml GT BID@0800,1730 [facility] Last Admin: 05/07/19 11:15 Dose: 30 ml Documented by: Amiodarone HCl (Cordarone -) 200 mg PO DAILY [facility] Last Admin: 05/07/19 11:23 Dose: 200 mg Documented by: Apixaban (Eliquis -) 5 mg PEG BID [facility] Last Admin: 05/07/19 11:25 Dose: 5 mg Documented by: Ascorbic Acid (Vitamin C Oral Solution -) 250 mg GT DAILY [facility] Last Admin: 05/07/19 11:25 Dose: 250 mg Documented by: Collagenase (Santyl -) 1 applic TP DAILY [facility]; Protocol Last Admin: 05/07/19 11:25 Dose: 1 applic Documented by: Furosemide (Lasix Injection -) 40 mg IVPUSH DAILY [facility] Last Admin: 05/07/19 11:14 Dose: 40 mg Documented by: Insulin Aspart (Novolog Vial Sliding Scale -) 1 vial SQ ACHS [facility]; Protocol Last Admin: 05/07/19 12:08 Dose: 6 units Documented by: Metoprolol Tartrate (Lopressor -) 25 mg PEG BID [facility] Last Admin: 05/07/19 11:25 Dose: 25 mg Documented by: Metoprolol Tartrate (Lopressor Injection -) 5 mg IVPB Q4H PRN PRN Reason: TACHYCARDIA Morphine Sulfate (Morphine Sulfate) 1 mg IVPUSH Q3H PRN PRN Reason: vent dependent,resp distress Last Admin: 05/07/19 11:10 Dose: 1 mg Documented by: Multi-Ingredient Ointment (Zinc Oxide) 1 applic TP BID [facility] Last Admin: 05/07/19 12:06 Dose: 1 applic Documented by: Multivitamins/Minerals (Certavite-Antioxidant Liquid) 15 ml GT DAILY [facility] Last Admin: 05/07/19 11:24 Dose: 15 ml Documented by: Nystatin (Mycostatin Cream -) 1 applic TP BID [facility] Last Admin: 05/07/19 11:25 Dose: 1 applic Documented by: Pantoprazole Sodium (Protonix Iv) 40 mg IVPUSH BID [facility] Last Admin: 05/07/19 11:25 Dose: 40 mg Documented by: Vancomycin HCl (Vancomycin Oral Solution) 125 mg GT Q6HPO [facility] Last Admin: 05/07/19 12:05 Dose: 125 mg Documented by: Zinc Sulfate (Orazinc -) 220 mg GT DAILY [facility] Last Admin: 05/07/19 11:14 Dose: 220 mg Documented by: - Objective Vital Signs: Vital Signs Temperature 98.1 F 05/07/19 08:57 Pulse Rate 60 05/07/19 08:57 Respiratory Rate 18 05/07/19 08:57 Blood Pressure 138/70 05/07/19 08:57 O2 Sat by Pulse Oximetry (%) 98 05/06/19 09:00 Constitutional: Yes: Other HENT: Yes: Atraumatic, Normocephalic Neck: Yes: Supple, Other (TRACH) Cardiovascular: Yes: Regular Rate and Rhythm Respiratory: Yes: Mechanically Ventilated ...Rectal Exam: Yes: Other (RECTAL TUBE) Genitourinary: Yes: [place] Present Edema: LUE: 2+, RUE: 2+, LLE: 1+, RLE: 1+ Neurological: Yes: Other Labs: CBC, BMP 05/04/19 05:28 05/04/19 05:28 INR, PTT INR 1.11 (0.83-1.09) H 04/24/19 06:00 Problem List - Problems (1) Acute and chronic respiratory failure Assessment/Plan: pulm following vent dependent compassionate weaning this week morphine added for resp distress prn pall care on case Code(s): J96.20 - ACUTE AND CHR RESP FAILURE, UNSP W HYPOXIA OR HYPERCAPNIA (2) CONOR (acute kidney injury) Assessment/Plan: nephrology following resolved Code(s): N17.9 - ACUTE KIDNEY FAILURE, UNSPECIFIED (3) Abnormal liver function tests Assessment/Plan: GI following lft downtrended no further work up Code(s): R94.5 - ABNORMAL RESULTS OF LIVER FUNCTION STUDIES (4) Anemia Assessment/Plan: 10/26 no further lab work Code(s): D64.9 - ANEMIA, UNSPECIFIED Qualifiers: Iron deficiency anemia type: chronic blood loss (5) Atrial fibrillation with RVR Assessment/Plan: cardiology following amiodarone/eliquis/lopressor Code(s): I48.91 - UNSPECIFIED ATRIAL FIBRILLATION (6) C. difficile diarrhea Assessment/Plan: po vanco ID following Code(s): A04.72 - ENTEROCOLITIS D/T CLOSTRIDIUM DIFFICILE, NOT SPCF RECUR (7) Septic shock Assessment/Plan: ID following IV antbx complete continues on PO vanco urine ecoli, klebsiella blood mrsa ulcer klebsiella, mrsa, ecoli sputum yeast Code(s): A41.9 - SEPSIS, UNSPECIFIED ORGANISM; R65.21 - SEVERE SEPSIS WITH SEPTIC SHOCK (8) Stage 4 skin ulcer of sacral region Assessment/Plan: wound care Code(s): L98.429 - NON-PRESSURE CHRONIC ULCER OF BACK WITH UNSPECIFIED SEVERITY (9) CAD (coronary artery disease) Assessment/Plan: cont home meds Code(s): I25.10 - ATHSCL HEART DISEASE OF [place] CORONARY ARTERY W/O ANG PCTRS Qualifiers: Coronary Disease-Associated Artery/Lesion type: [place] artery [place] vs. transplanted heart: [place] heart Associated angina: without angina Qualified Code(s): I25.10 - Atherosclerotic heart disease of [place] coronary artery without angina pectoris
[2019-05-07] MEDS ORDERED: VANCOMYCIN 1 GRAM (PRE-DOCKED) 1,000 MG/250 ML BAG IVPB ONE (17:15)
[2019-05-07] MEDS ORDERED: PT OWN MED DRAWER 7, Y5N ONE ×2 (22:37→23:00)
[2019-05-08] MEDS: METOPROLOL TARTRATE 25 MG TABLET (FP) PEG SCH ×3 (00:10→22:52)
[2019-05-08] MEDS: APIXABAN 5 MG TABLET PEG SCH ×3 (00:10→22:52)
[2019-05-08] MEDS: PANTOPRAZOLE SODIUM 40 MG VIAL IVPUSH SCH ×3 (00:11→22:52)
[2019-05-08] MEDS: ZINC OXIDE 20% TOPICAL OINTMENT 30 GM TUBE TP SCH ×3 (00:12→23:03)
[2019-05-08] MEDS: NYSTATIN 100,000 UNIT/GM TOPICAL CREAM 15 GM TUBE TP SCH ×3 (00:12→23:03)
[2019-05-08] MEDS: VANCOMYCIN 250 MG/5 ML ORAL SOLUTION GT SCH ×5 (00:14→23:43)
[2019-05-08] MEDS: INSULIN SLIDING SCALE (NOVOLOG) 1 VIAL SQ SCH ×5 (00:29→22:52)
[2019-05-08] MEDS: MORPHINE SULFATE 2 MG/ML VIAL IVPUSH PRN ×4 (03:14→22:56)
[2019-05-08] MEDS ORDERED: PT OWN MED DRAWER 7, Y5N ONE (11:22)
[2019-05-08] MEDS: AMINO ACIDS/PROTEIN HYDROLYS 30 ML LIQUID.PKT GT SCH ×2 (11:27→17:06)
[2019-05-08] MEDS: ASCORBIC ACID 500 MG/5 ML UNIT DOSE CUP GT SCH (11:28)
[2019-05-08] MEDS: MULTIVIT-MINERALS ORAL LIQUID GT SCH (11:29)
[2019-05-08] MEDS: AMIODARONE HCL 200 MG TABLET PO SCH (11:31)
[2019-05-08] MEDS: FUROSEMIDE 40 MG/4 ML INJECTABLE VIAL IVPUSH SCH (11:31)
[2019-05-08] MEDS: ZINC SULFATE 220 MG CAPSULE (FP) GT SCH (11:31)
[2019-05-08] MEDS: COLLAGENASE CLOSTRIDIUM HIST. 30 GRAMS TUBE TP SCH (11:35)
--- NOTE | 2019-05-08 14:09 | PN ---
Progress Note, Physician Chief Complaint: transferred out of ICU comfort measures, no labs long conversation with daughter/hcp pao History of Present Illness: 79 yearo ld female with PMH CAD, AFIB, SSS S/P PPM, CVA, Chronic respiratory failure, COPD, HTN, DM, GI BLEED, SACRAL STAGE 4 presents to the ED from [facility] for severe sepsis and rapid afib. - Current Medication List Current Medications: Active Medications Amino Acids (Prosource No Carb Liquid Pkt) 30 ml GT BID@0800,1730 [facility] Last Admin: 05/08/19 11:27 Dose: 30 ml Documented by: Amiodarone HCl (Cordarone -) 200 mg PO DAILY [facility] Last Admin: 05/08/19 11:31 Dose: 200 mg Documented by: Apixaban (Eliquis -) 5 mg PEG BID [facility] Last Admin: 05/08/19 11:31 Dose: 5 mg Documented by: Ascorbic Acid (Vitamin C Oral Solution -) 250 mg GT DAILY [facility] Last Admin: 05/08/19 11:28 Dose: 250 mg Documented by: Collagenase (Santyl -) 1 applic TP DAILY [facility]; Protocol Last Admin: 05/08/19 11:35 Dose: 1 applic Documented by: Furosemide (Lasix Injection -) 40 mg IVPUSH DAILY [facility] Last Admin: 05/08/19 11:31 Dose: 40 mg Documented by: Insulin Aspart (Novolog Vial Sliding Scale -) 1 vial SQ ACHS [facility]; Protocol Last Admin: 05/08/19 11:39 Dose: 6 units Documented by: Metoprolol Tartrate (Lopressor -) 25 mg PEG BID [facility] Last Admin: 05/08/19 11:30 Dose: 25 mg Documented by: Metoprolol Tartrate (Lopressor Injection -) 5 mg IVPB Q4H PRN PRN Reason: TACHYCARDIA Morphine Sulfate (Morphine Sulfate) 1 mg IVPUSH Q3H PRN PRN Reason: vent dependent,resp distress Last Admin: 05/08/19 11:31 Dose: 1 mg Documented by: Multi-Ingredient Ointment (Zinc Oxide) 1 applic TP BID [facility] Last Admin: 05/08/19 11:35 Dose: 1 applic Documented by: Multivitamins/Minerals (Certavite-Antioxidant Liquid) 15 ml GT DAILY [facility] Last Admin: 05/08/19 11:29 Dose: 15 ml Documented by: Nystatin (Mycostatin Cream -) 1 applic TP BID [facility] Last Admin: 05/08/19 11:35 Dose: 1 applic Documented by: Pantoprazole Sodium (Protonix Iv) 40 mg IVPUSH BID [facility] Last Admin: 05/08/19 11:29 Dose: 40 mg Documented by: Vancomycin HCl (Vancomycin Oral Solution) 125 mg GT Q6HPO [facility] Last Admin: 05/08/19 12:10 Dose: 125 mg Documented by: Zinc Sulfate (Orazinc -) 220 mg GT DAILY [facility] Last Admin: 05/08/19 11:31 Dose: 220 mg Documented by: - Objective Vital Signs: Vital Signs Temperature 97.9 F 05/08/19 07:12 Pulse Rate 60 05/08/19 08:37 Respiratory Rate 17 05/08/19 12:05 Blood Pressure 134/79 05/08/19 07:12 O2 Sat by Pulse Oximetry (%) 98 05/08/19 08:37 Constitutional: Yes: Other HENT: Yes: Atraumatic, Normocephalic Neck: Yes: Other (trach) Respiratory: Yes: Regular Gastrointestinal: Yes: Normal Bowel Sounds, Other (peg) Genitourinary: Yes: [place] Present Edema: LUE: 2+, RUE: 2+, LLE: 1+, RLE: 1+ Neurological: Yes: Alert Labs: CBC, BMP 05/04/19 05:28 05/04/19 05:28 INR, PTT INR 1.11 (0.83-1.09) H 04/24/19 06:00 Problem List - Problems (1) Acute and chronic respiratory failure Assessment/Plan: pulm following vent dependent compassionate weaning saturday morning morphine added for resp distress prn pall care on case Code(s): J96.20 - ACUTE AND CHR RESP FAILURE, UNSP W HYPOXIA OR HYPERCAPNIA (2) CONOR (acute kidney injury) Assessment/Plan: nephrology following resolved Code(s): N17.9 - ACUTE KIDNEY FAILURE, UNSPECIFIED (3) Abnormal liver function tests Assessment/Plan: GI following lft downtrended no further work up Code(s): R94.5 - ABNORMAL RESULTS OF LIVER FUNCTION STUDIES (4) Anemia Assessment/Plan: 10/26 no further lab work Code(s): D64.9 - ANEMIA, UNSPECIFIED Qualifiers: Iron deficiency anemia type: chronic blood loss (5) Atrial fibrillation with RVR Assessment/Plan: cardiology following amiodarone/eliquis/lopressor Code(s): I48.91 - UNSPECIFIED ATRIAL FIBRILLATION (6) C. difficile diarrhea Assessment/Plan: po vanco ID following Code(s): A04.72 - ENTEROCOLITIS D/T CLOSTRIDIUM DIFFICILE, NOT SPCF RECUR (7) Septic shock Assessment/Plan: ID following IV antbx complete continues on PO vanco urine ecoli, klebsiella blood mrsa ulcer klebsiella, mrsa, ecoli sputum yeast Code(s): A41.9 - SEPSIS, UNSPECIFIED ORGANISM; R65.21 - SEVERE SEPSIS WITH SEPTIC SHOCK (8) Stage 4 skin ulcer of sacral region Assessment/Plan: wound care Code(s): L98.429 - NON-PRESSURE CHRONIC ULCER OF BACK WITH UNSPECIFIED SEVERITY (9) CAD (coronary artery disease) Assessment/Plan: cont home meds Code(s): I25.10 - ATHSCL HEART DISEASE OF [place] CORONARY ARTERY W/O ANG PCTRS Qualifiers: Coronary Disease-Associated Artery/Lesion type: [place] artery [place] vs. transplanted heart: [place] heart Associated angina: without angina Qualified Code(s): I25.10 - Atherosclerotic heart disease of [place] coronary artery without angina pectoris
--- NOTE | 2019-05-08 14:10 | PN ---
Progress Note, Physician History of Present Illness: PULMONARY NO CHANGE ,OPENS EYES,UNRESPONSIVE ON VENT SUPPORT - Current Medication List Current Medications: Active Medications Amino Acids (Prosource No Carb Liquid Pkt) 30 ml GT BID@0800,1730 [facility] Last Admin: 05/08/19 11:27 Dose: 30 ml Documented by: Amiodarone HCl (Cordarone -) 200 mg PO DAILY [facility] Last Admin: 05/08/19 11:31 Dose: 200 mg Documented by: Apixaban (Eliquis -) 5 mg PEG BID [facility] Last Admin: 05/08/19 11:31 Dose: 5 mg Documented by: Ascorbic Acid (Vitamin C Oral Solution -) 250 mg GT DAILY [facility] Last Admin: 05/08/19 11:28 Dose: 250 mg Documented by: Collagenase (Santyl -) 1 applic TP DAILY [facility]; Protocol Last Admin: 05/08/19 11:35 Dose: 1 applic Documented by: Furosemide (Lasix Injection -) 40 mg IVPUSH DAILY [facility] Last Admin: 05/08/19 11:31 Dose: 40 mg Documented by: Insulin Aspart (Novolog Vial Sliding Scale -) 1 vial SQ ACHS [facility]; Protocol Last Admin: 05/08/19 11:39 Dose: 6 units Documented by: Metoprolol Tartrate (Lopressor -) 25 mg PEG BID [facility] Last Admin: 05/08/19 11:30 Dose: 25 mg Documented by: Metoprolol Tartrate (Lopressor Injection -) 5 mg IVPB Q4H PRN PRN Reason: TACHYCARDIA Morphine Sulfate (Morphine Sulfate) 1 mg IVPUSH Q3H PRN PRN Reason: vent dependent,resp distress Last Admin: 05/08/19 11:31 Dose: 1 mg Documented by: Multi-Ingredient Ointment (Zinc Oxide) 1 applic TP BID [facility] Last Admin: 05/08/19 11:35 Dose: 1 applic Documented by: Multivitamins/Minerals (Certavite-Antioxidant Liquid) 15 ml GT DAILY [facility] Last Admin: 05/08/19 11:29 Dose: 15 ml Documented by: Nystatin (Mycostatin Cream -) 1 applic TP BID [facility] Last Admin: 05/08/19 11:35 Dose: 1 applic Documented by: Pantoprazole Sodium (Protonix Iv) 40 mg IVPUSH BID [facility] Last Admin: 05/08/19 11:29 Dose: 40 mg Documented by: Vancomycin HCl (Vancomycin Oral Solution) 125 mg GT Q6HPO [facility] Last Admin: 05/08/19 12:10 Dose: 125 mg Documented by: Zinc Sulfate (Orazinc -) 220 mg GT DAILY [facility] Last Admin: 05/08/19 11:31 Dose: 220 mg Documented by: - Objective Vital Signs: Vital Signs Temperature 97.9 F 05/08/19 07:12 Pulse Rate 60 05/08/19 08:37 Respiratory Rate 17 05/08/19 12:05 Blood Pressure 134/79 05/08/19 07:12 O2 Sat by Pulse Oximetry (%) 98 05/08/19 08:37 Constitutional: Yes: Well Nourished, Other (UNRESPONSIVE) Eyes: Yes: WNL HENT: Yes: WNL Neck: Yes: Supple (TRACH) Cardiovascular: Yes: Pulse Irregular, S1, S2 Respiratory: Yes: Rhonchi (FEW RHONCHI) Gastrointestinal: Yes: Normal Bowel Sounds, Soft Extremities: Yes: WNL Edema: Yes Labs: CBC, BMP 05/04/19 05:28 05/04/19 05:28 INR, PTT INR 1.11 (0.83-1.09) H 04/24/19 06:00 Problem List - Problems (1) Atrial fibrillation with RVR Code(s): I48.91 - UNSPECIFIED ATRIAL FIBRILLATION (2) Severe sepsis Code(s): A41.9 - SEPSIS, UNSPECIFIED ORGANISM; R65.20 - SEVERE SEPSIS WITHOUT SEPTIC SHOCK (3) CAD (coronary artery disease) Code(s): I25.10 - ATHSCL HEART DISEASE OF [place] CORONARY ARTERY W/O ANG PCTRS Qualifiers: Coronary Disease-Associated Artery/Lesion type: [place] artery [place] vs. transplanted heart: [place] heart Associated angina: without angina Qualified Code(s): I25.10 - Atherosclerotic heart disease of [place] coronary artery without angina pectoris (4) CHF exacerbation Code(s): I50.9 - HEART FAILURE, UNSPECIFIED Qualifiers: Heart failure type: unspecified Qualified Code(s): I50.9 - Heart failure, unspecified (5) CVA (cerebral vascular accident) Code(s): I63.9 - CEREBRAL INFARCTION, UNSPECIFIED Qualifiers: CVA mechanism: embolism (6) Chronic respiratory failure Code(s): J96.10 - CHRONIC RESPIRATORY FAILURE, UNSP W HYPOXIA OR HYPERCAPNIA (7) Functional quadriplegia Code(s): R53.2 - FUNCTIONAL QUADRIPLEGIA (8) Hemiparesis and other late effects of cerebrovascular accident Code(s): I69.359 - HEMIPLGA FOLLOWING CEREBRAL INFARCTION AFFECTING UNSP SIDE; I69.398 - OTHER SEQUELAE OF CEREBRAL INFARCTION (9) Ventilator dependent Code(s): Z99.11 - DEPENDENCE ON RESPIRATOR [VENTILATOR] STATUS Assessment/Plan ASSESSMENT AND PLAN: Respiratory failure UTI Pneumonia Suspected Sacral Decubitus Ulcer Infection C Diff Colitis Septic Shock resolving GI Bleed likely Upper Acute Blood Loss Anemia Atrial Fibrillation with RVR CAD COPD HTN DM h/o CVA - Patient has been made DNR / comfort measures by daughter/HCP due to overall poor condition. For eventual compassionate wean. - continue volume assist control - DVT/GI prophylaxis - morphine for comfort - poor overall prognosis DR SALAZAR
--- NOTE | 2019-05-08 17:09 | PN ---
Progress Note (short form) - Note Progress Note: ID PT COMFORT CARE FOR COMPASSIONATE WEANING FAMILY REQUESTED NO FURTHER BLOOD WORK NO FURTHER IV VANCOMYCIN
[2019-05-08] MEDS ORDERED: INSULIN (NOVOLOG) ASPART 100 UNITS/ML 10ML VIAL ONE (22:09)
[2019-05-09] MEDS: INSULIN SLIDING SCALE (NOVOLOG) 1 VIAL SQ SCH ×4 (06:16→22:04)
[2019-05-09] MEDS: VANCOMYCIN 250 MG/5 ML ORAL SOLUTION GT SCH ×3 (06:17→17:47)
[2019-05-09] MEDS ORDERED: INSULIN (NOVOLOG) ASPART 100 UNITS/ML 10ML VIAL ONE ×3 (06:27→16:23)
[2019-05-09] MEDS: AMINO ACIDS/PROTEIN HYDROLYS 30 ML LIQUID.PKT GT SCH ×2 (09:00→17:47)
[2019-05-09] MEDS ORDERED: PT OWN MED DRAWER 7, Y5N ONE (10:06)
[2019-05-09] MEDS: METOPROLOL TARTRATE 25 MG TABLET (FP) PEG SCH ×2 (10:11→22:02)
[2019-05-09] MEDS: ZINC SULFATE 220 MG CAPSULE (FP) GT SCH (10:11)
[2019-05-09] MEDS: MULTIVIT-MINERALS ORAL LIQUID GT SCH (10:12)
[2019-05-09] MEDS: APIXABAN 5 MG TABLET PEG SCH ×2 (10:13→22:02)
[2019-05-09] MEDS: FUROSEMIDE 40 MG/4 ML INJECTABLE VIAL IVPUSH SCH (10:13)
[2019-05-09] MEDS: AMIODARONE HCL 200 MG TABLET PO SCH (10:13)
[2019-05-09] MEDS: ASCORBIC ACID 500 MG/5 ML UNIT DOSE CUP GT SCH (10:14)
[2019-05-09] MEDS: PANTOPRAZOLE SODIUM 40 MG VIAL IVPUSH SCH ×2 (10:25→22:04)
[2019-05-09] MEDS: ZINC OXIDE 20% TOPICAL OINTMENT 30 GM TUBE TP SCH ×2 (10:36→22:03)
[2019-05-09] MEDS: COLLAGENASE CLOSTRIDIUM HIST. 30 GRAMS TUBE TP SCH (10:36)
[2019-05-09] MEDS: NYSTATIN 100,000 UNIT/GM TOPICAL CREAM 15 GM TUBE TP SCH ×2 (10:36→22:03)
--- NOTE | 2019-05-09 11:07 | PN ---
Progress Note, Physician - Current Medication List Current Medications: Active Medications Amino Acids (Prosource No Carb Liquid Pkt) 30 ml GT BID@0800,1730 [facility] Last Admin: 05/09/19 09:00 Dose: 30 ml Documented by: Amiodarone HCl (Cordarone -) 200 mg PO DAILY [facility] Last Admin: 05/09/19 10:13 Dose: 200 mg Documented by: Apixaban (Eliquis -) 5 mg PEG BID [facility] Last Admin: 05/09/19 10:13 Dose: 5 mg Documented by: Ascorbic Acid (Vitamin C Oral Solution -) 250 mg GT DAILY [facility] Last Admin: 05/09/19 10:14 Dose: 250 mg Documented by: Collagenase (Santyl -) 1 applic TP DAILY [facility]; Protocol Last Admin: 05/08/19 11:35 Dose: 1 applic Documented by: Furosemide (Lasix Injection -) 40 mg IVPUSH DAILY [facility] Last Admin: 05/09/19 10:13 Dose: 40 mg Documented by: Insulin Aspart (Novolog Vial Sliding Scale -) 1 vial SQ [facility]; Protocol Last Admin: 05/09/19 06:16 Dose: 6 units Documented by: Metoprolol Tartrate (Lopressor -) 25 mg PEG BID [facility] Last Admin: 05/09/19 10:11 Dose: 25 mg Documented by: Metoprolol Tartrate (Lopressor Injection -) 5 mg IVPB Q4H PRN PRN Reason: TACHYCARDIA Morphine Sulfate (Morphine Sulfate) 1 mg IVPUSH Q3H PRN PRN Reason: vent dependent,resp distress Last Admin: 05/08/19 22:56 Dose: 1 mg Documented by: Multi-Ingredient Ointment (Zinc Oxide) 1 applic TP BID [facility] Last Admin: 05/08/19 23:03 Dose: 1 applic Documented by: Multivitamins/Minerals (Certavite-Antioxidant Liquid) 15 ml GT DAILY [facility] Last Admin: 05/09/19 10:12 Dose: 15 ml Documented by: Nystatin (Mycostatin Cream -) 1 applic TP BID [facility] Last Admin: 05/08/19 23:03 Dose: 1 applic Documented by: Pantoprazole Sodium (Protonix Iv) 40 mg IVPUSH BID [facility] Last Admin: 05/09/19 10:25 Dose: 40 mg Documented by: Vancomycin HCl (Vancomycin Oral Solution) 125 mg GT Q6HPO [facility] Last Admin: 05/09/19 06:17 Dose: 125 mg Documented by: Zinc Sulfate (Orazinc -) 220 mg GT DAILY [facility] Last Admin: 05/09/19 10:11 Dose: 220 mg Documented by: - Objective Vital Signs: Vital Signs Temperature 98.2 F 05/09/19 06:00 Pulse Rate 60 05/09/19 08:34 Respiratory Rate 16 05/09/19 08:34 Blood Pressure 163/68 05/09/19 06:00 O2 Sat by Pulse Oximetry (%) 98 05/09/19 08:34 Labs: CBC, BMP 05/04/19 05:28 05/04/19 05:28 INR, PTT INR 1.11 (0.83-1.09) H 04/24/19 06:00 Problem List - Problems (1) CONOR (acute kidney injury) Code(s): N17.9 - ACUTE KIDNEY FAILURE, UNSPECIFIED (2) Anemia Code(s): D64.9 - ANEMIA, UNSPECIFIED Qualifiers: Iron deficiency anemia type: chronic blood loss (3) Atrial fibrillation with RVR Code(s): I48.91 - UNSPECIFIED ATRIAL FIBRILLATION (4) Sepsis Code(s): A41.9 - SEPSIS, UNSPECIFIED ORGANISM Qualifiers: Sepsis type: sepsis due to unspecified organism Sepsis acute organ dysfunction status: without acute organ dysfunction Qualified Code(s): A41.9 - Sepsis, unspecified organism Assessment/Plan - Problems (1) Acute and chronic respiratory failure Assessment/Plan: pulm following vent dependent compassionate weaning saturday morning morphine added for resp distress prn pall care on case Code(s): J96.20 - ACUTE AND CHR RESP FAILURE, UNSP W HYPOXIA OR HYPERCAPNIA (2) CONOR (acute kidney injury) Assessment/Plan: nephrology following resolved Code(s): N17.9 - ACUTE KIDNEY FAILURE, UNSPECIFIED (3) Abnormal liver function tests Assessment/Plan: GI following lft downtrended no further work up Code(s): R94.5 - ABNORMAL RESULTS OF LIVER FUNCTION STUDIES (4) Anemia Assessment/Plan: 10/26 no further lab work Code(s): D64.9 - ANEMIA, UNSPECIFIED Qualifiers: Iron deficiency anemia type: chronic blood loss (5) Atrial fibrillation with RVR Assessment/Plan: cardiology following amiodarone/eliquis/lopressor Code(s): I48.91 - UNSPECIFIED ATRIAL FIBRILLATION (6) C. difficile diarrhea Assessment/Plan: po vanco ID following Code(s): A04.72 - ENTEROCOLITIS D/T CLOSTRIDIUM DIFFICILE, NOT SPCF RECUR (7) Septic shock Assessment/Plan: ID following IV antbx complete continues on PO vanco urine ecoli, klebsiella blood mrsa ulcer klebsiella, mrsa, ecoli sputum yeast Code(s): A41.9 - SEPSIS, UNSPECIFIED ORGANISM; R65.21 - SEVERE SEPSIS WITH SEPTIC SHOCK (8) Stage 4 skin ulcer of sacral region Assessment/Plan: wound care Code(s): L98.429 - NON-PRESSURE CHRONIC ULCER OF BACK WITH UNSPECIFIED SEVERITY (9) CAD (coronary artery disease) Assessment/Plan: cont home meds Code(s): I25.10 - ATHSCL HEART DISEASE OF [place] CORONARY ARTERY W/O ANG PCTRS Qualifiers: Coronary Disease-Associated Artery/Lesion type: [place] artery [place] vs. transplanted heart: [place] heart Associated angina: without angina Qualified Code(s): I25.10 - Atherosclerotic heart disease of [place] coronary artery without angina pectoris
--- NOTE | 2019-05-09 11:58 | PN ---
Progress Note (short form) - Note Progress Note: PULMONARY DNR VSS/AFEBRILE Constitutional: Yes: Well Nourished, Other (UNRESPONSIVE) Eyes: Yes: WNL HENT: Yes: WNL Neck: Yes: Supple (TRACH) Cardiovascular: Yes: Pulse Irregular, S1, S2 Respiratory: Yes: Rhonchi (FEW RHONCHI) Gastrointestinal: Yes: Normal Bowel Sounds, Soft Extremities: Yes: WNL Edema: Yes Labs: NOTED CXR REVIEWED Respiratory failure UTI Pneumonia Suspected Sacral Decubitus Ulcer Infection C Diff Colitis Septic Shock resolving GI Bleed likely Upper Acute Blood Loss Anemia Atrial Fibrillation with RVR CAD COPD HTN DM h/o CVA - continue volume assist control - DVT/GI prophylaxis - morphine for comfort - poor overall prognosis Amos ASTORGA MD
[2019-05-09] MEDS: MORPHINE SULFATE 2 MG/ML VIAL IVPUSH PRN (15:34)
[2019-05-10] MEDS: VANCOMYCIN 250 MG/5 ML ORAL SOLUTION GT SCH ×4 (00:46→17:45)
[2019-05-10] MEDS: MORPHINE SULFATE 2 MG/ML VIAL IVPUSH PRN ×3 (00:47→22:47)
[2019-05-10] MEDS: INSULIN SLIDING SCALE (NOVOLOG) 1 VIAL SQ SCH ×4 (06:59→22:47)
[2019-05-10] MEDS: AMINO ACIDS/PROTEIN HYDROLYS 30 ML LIQUID.PKT GT SCH ×2 (09:15→17:45)
[2019-05-10] MEDS ORDERED: PT OWN MED DRAWER 7, Y5N ONE (09:48)
[2019-05-10] MEDS: AMIODARONE HCL 200 MG TABLET PO SCH (09:59)
[2019-05-10] MEDS: MULTIVIT-MINERALS ORAL LIQUID GT SCH (09:59)
[2019-05-10] MEDS: APIXABAN 5 MG TABLET PEG SCH ×2 (10:00→22:46)
[2019-05-10] MEDS: FUROSEMIDE 40 MG/4 ML INJECTABLE VIAL IVPUSH SCH (10:00)
[2019-05-10] MEDS: ASCORBIC ACID 500 MG/5 ML UNIT DOSE CUP GT SCH (10:00)
[2019-05-10] MEDS: METOPROLOL TARTRATE 25 MG TABLET (FP) PEG SCH ×2 (10:00→22:46)
[2019-05-10] MEDS: ZINC SULFATE 220 MG CAPSULE (FP) GT SCH (10:01)
[2019-05-10] MEDS: PANTOPRAZOLE SODIUM 40 MG VIAL IVPUSH SCH ×2 (10:10→22:46)
[2019-05-10] MEDS: NYSTATIN 100,000 UNIT/GM TOPICAL CREAM 15 GM TUBE TP SCH ×2 (11:17→22:48)
[2019-05-10] MEDS: ZINC OXIDE 20% TOPICAL OINTMENT 30 GM TUBE TP SCH ×2 (11:18→22:49)
--- NOTE | 2019-05-10 11:23 | PN ---
Progress Note, Physician - Current Medication List Current Medications: Active Medications Amino Acids (Prosource No Carb Liquid Pkt) 30 ml GT BID@0800,1730 [facility] Last Admin: 05/10/19 09:15 Dose: 30 ml Documented by: Amiodarone HCl (Cordarone -) 200 mg PO DAILY [facility] Last Admin: 05/10/19 09:59 Dose: 200 mg Documented by: Apixaban (Eliquis -) 5 mg PEG BID [facility] Last Admin: 05/10/19 10:00 Dose: 5 mg Documented by: Ascorbic Acid (Vitamin C Oral Solution -) 250 mg GT DAILY [facility] Last Admin: 05/10/19 10:00 Dose: 250 mg Documented by: Collagenase (Santyl -) 1 applic TP DAILY [facility]; Protocol Last Admin: 05/09/19 10:36 Dose: 1 applic Documented by: Furosemide (Lasix Injection -) 40 mg IVPUSH DAILY [facility] Last Admin: 05/10/19 10:00 Dose: 40 mg Documented by: Insulin Aspart (Novolog Vial Sliding Scale -) 1 vial SQ [facility]; Protocol Last Admin: 05/10/19 06:59 Dose: 8 units Documented by: Metoprolol Tartrate (Lopressor -) 25 mg PEG BID [facility] Last Admin: 05/10/19 10:00 Dose: 25 mg Documented by: Metoprolol Tartrate (Lopressor Injection -) 5 mg IVPB Q4H PRN PRN Reason: TACHYCARDIA Morphine Sulfate (Morphine Sulfate) 1 mg IVPUSH Q3H PRN PRN Reason: vent dependent,resp distress Last Admin: 05/10/19 00:47 Dose: 1 mg Documented by: Multi-Ingredient Ointment (Zinc Oxide) 1 applic TP BID [facility] Last Admin: 05/10/19 11:18 Dose: 1 applic Documented by: Multivitamins/Minerals (Certavite-Antioxidant Liquid) 15 ml GT DAILY [facility] Last Admin: 05/10/19 09:59 Dose: 15 ml Documented by: Nystatin (Mycostatin Cream -) 1 applic TP BID [facility] Last Admin: 05/10/19 11:17 Dose: 1 applic Documented by: Pantoprazole Sodium (Protonix Iv) 40 mg IVPUSH BID [facility] Last Admin: 05/10/19 10:10 Dose: 40 mg Documented by: Vancomycin HCl (Vancomycin Oral Solution) 125 mg GT Q6HPO [facility] Last Admin: 05/10/19 06:59 Dose: 125 mg Documented by: Zinc Sulfate (Orazinc -) 220 mg GT DAILY [facility] Last Admin: 05/10/19 10:01 Dose: 220 mg Documented by: - Objective Vital Signs: Vital Signs Temperature 97.6 F 05/10/19 10:00 Pulse Rate 100 H 05/10/19 10:00 Respiratory Rate 20 05/10/19 10:00 Blood Pressure 139/89 05/10/19 10:00 O2 Sat by Pulse Oximetry (%) 97 05/10/19 08:36 Cardiovascular: Yes: S1, S2 Respiratory: Yes: Mechanically Ventilated Gastrointestinal: Yes: Normal Bowel Sounds, Soft Labs: CBC, BMP 05/04/19 05:28 05/04/19 05:28 INR, PTT INR 1.11 (0.83-1.09) H 04/24/19 06:00 Problem List - Problems (1) CONOR (acute kidney injury) Code(s): N17.9 - ACUTE KIDNEY FAILURE, UNSPECIFIED (2) Anemia Code(s): D64.9 - ANEMIA, UNSPECIFIED Qualifiers: Iron deficiency anemia type: chronic blood loss (3) Atrial fibrillation with RVR Code(s): I48.91 - UNSPECIFIED ATRIAL FIBRILLATION (4) Sepsis Code(s): A41.9 - SEPSIS, UNSPECIFIED ORGANISM Qualifiers: Sepsis type: sepsis due to unspecified organism Sepsis acute organ dysfunction status: without acute organ dysfunction Qualified Code(s): A41.9 - Sepsis, unspecified organism Assessment/Plan - Problems (1) Acute and chronic respiratory failure Assessment/Plan: pulm following vent dependent compassionate weaning Saturday morning morphine added for resp distress prn pall care on case Code(s): J96.20 - ACUTE AND CHR RESP FAILURE, UNSP W HYPOXIA OR HYPERCAPNIA (2) CONOR (acute kidney injury) Assessment/Plan: nephrology following resolved Code(s): N17.9 - ACUTE KIDNEY FAILURE, UNSPECIFIED (3) Abnormal liver function tests Assessment/Plan: GI following lft downtrended no further work up Code(s): R94.5 - ABNORMAL RESULTS OF LIVER FUNCTION STUDIES (4) Anemia Assessment/Plan: 10/26 no further lab work Code(s): D64.9 - ANEMIA, UNSPECIFIED Qualifiers: Iron deficiency anemia type: chronic blood loss (5) Atrial fibrillation with RVR Assessment/Plan: cardiology following amiodarone/eliquis/lopressor Code(s): I48.91 - UNSPECIFIED ATRIAL FIBRILLATION (6) C. difficile diarrhea Assessment/Plan: po vanco ID following Code(s): A04.72 - ENTEROCOLITIS D/T CLOSTRIDIUM DIFFICILE, NOT SPCF RECUR (7) Septic shock Assessment/Plan: ID following IV antbx complete continues on PO vanco urine ecoli, klebsiella blood mrsa ulcer klebsiella, mrsa, ecoli sputum yeast Code(s): A41.9 - SEPSIS, UNSPECIFIED ORGANISM; R65.21 - SEVERE SEPSIS WITH SEPTIC SHOCK (8) Stage 4 skin ulcer of sacral region Assessment/Plan: wound care Code(s): L98.429 - NON-PRESSURE CHRONIC ULCER OF BACK WITH UNSPECIFIED SEVERITY (9) CAD (coronary artery disease) Assessment/Plan: cont home meds Code(s): I25.10 - ATHSCL HEART DISEASE OF [place] CORONARY ARTERY W/O ANG PCTRS Qualifiers: Coronary Disease-Associated Artery/Lesion type: [place] artery [place] vs. transplanted heart: [place] heart Associated angina: without angina Qualified Code(s): I25.10 - Atherosclerotic heart disease of [place] coronary artery without angina pectoris
[2019-05-10] MEDS ORDERED: INSULIN (NOVOLOG) ASPART 100 UNITS/ML 10ML VIAL ONE (11:35)
--- NOTE | 2019-05-10 12:37 | PN ---
Progress Note (short form) - Note Progress Note: PULMONARY DNR VSS/AFEBRILE (UNRESPONSIVE) Neck: Yes: Supple (TRACH) Cardiovascular: Yes: Pulse Irregular, S1, S2 Respiratory: Yes: Rhonchi (FEW RHONCHI) Gastrointestinal: Yes: Normal Bowel Sounds, Soft Extremities: Yes: WNL Edema: Yes Labs: NOTED CXR REVIEWED Respiratory failure UTI Pneumonia C Diff Colitis Septic Shock GI Bleed likely Upper Acute Blood Loss Anemia Atrial Fibrillation with RVR CAD COPD HTN DM h/o CVA - continue volume assist control - DVT/GI prophylaxis - morphine for comfort - poor overall prognosis Amos ASTORGA MD
[2019-05-10] MEDS: COLLAGENASE CLOSTRIDIUM HIST. 30 GRAMS TUBE TP SCH (15:01)
[2019-05-11] MEDS: VANCOMYCIN 250 MG/5 ML ORAL SOLUTION GT SCH ×2 (01:25→06:58)
[2019-05-11] MEDS: MORPHINE SULFATE 2 MG/ML VIAL IVPUSH PRN ×2 (06:56→10:02)
[2019-05-11] MEDS: INSULIN SLIDING SCALE (NOVOLOG) 1 VIAL SQ SCH (07:00)
--- NOTE | 2019-05-11 08:30 | PN ---
Progress Note, Physician - Current Medication List Current Medications: Active Medications Amino Acids (Prosource No Carb Liquid Pkt) 30 ml GT BID@0800,1730 [facility] Last Admin: 05/10/19 17:45 Dose: 30 ml Documented by: Amiodarone HCl (Cordarone -) 200 mg PO DAILY [facility] Last Admin: 05/10/19 09:59 Dose: 200 mg Documented by: Apixaban (Eliquis -) 5 mg PEG BID [facility] Last Admin: 05/10/19 22:46 Dose: 5 mg Documented by: Ascorbic Acid (Vitamin C Oral Solution -) 250 mg GT DAILY [facility] Last Admin: 05/10/19 10:00 Dose: 250 mg Documented by: Collagenase (Santyl -) 1 applic TP DAILY [facility]; Protocol Last Admin: 05/10/19 15:01 Dose: 1 applic Documented by: Furosemide (Lasix Injection -) 40 mg IVPUSH DAILY [facility] Last Admin: 05/10/19 10:00 Dose: 40 mg Documented by: Insulin Aspart (Novolog Vial Sliding Scale -) 1 vial SQ [facility]; Protocol Last Admin: 05/11/19 07:00 Dose: 8 units Documented by: Metoprolol Tartrate (Lopressor -) 25 mg PEG BID [facility] Last Admin: 05/10/19 22:46 Dose: 25 mg Documented by: Metoprolol Tartrate (Lopressor Injection -) 5 mg IVPB Q4H PRN PRN Reason: TACHYCARDIA Morphine Sulfate (Morphine Sulfate) 1 mg IVPUSH Q3H PRN PRN Reason: vent dependent,resp distress Last Admin: 05/11/19 06:56 Dose: 1 mg Documented by: Multi-Ingredient Ointment (Zinc Oxide) 1 applic TP BID [facility] Last Admin: 05/10/19 22:49 Dose: 1 applic Documented by: Multivitamins/Minerals (Certavite-Antioxidant Liquid) 15 ml GT DAILY [facility] Last Admin: 05/10/19 09:59 Dose: 15 ml Documented by: Nystatin (Mycostatin Cream -) 1 applic TP BID [facility] Last Admin: 05/10/19 22:48 Dose: 1 applic Documented by: Pantoprazole Sodium (Protonix Iv) 40 mg IVPUSH BID [facility] Last Admin: 05/10/19 22:46 Dose: 40 mg Documented by: Vancomycin HCl (Vancomycin Oral Solution) 125 mg GT Q6HPO [facility] Last Admin: 05/11/19 06:58 Dose: 125 mg Documented by: Zinc Sulfate (Orazinc -) 220 mg GT DAILY [facility] Last Admin: 05/10/19 10:01 Dose: 220 mg Documented by: - Objective Vital Signs: Vital Signs Temperature 97.7 F 05/11/19 05:45 Pulse Rate 98 H 05/11/19 08:19 Respiratory Rate 19 05/11/19 08:19 Blood Pressure 139/101 H 05/11/19 05:45 O2 Sat by Pulse Oximetry (%) 98 05/11/19 08:19 Cardiovascular: Yes: S1, S2 Respiratory: Yes: Mechanically Ventilated Labs: CBC, BMP 05/04/19 05:28 05/04/19 05:28 INR, PTT INR 1.11 (0.83-1.09) H 04/24/19 06:00 Problem List - Problems (1) CONOR (acute kidney injury) Code(s): N17.9 - ACUTE KIDNEY FAILURE, UNSPECIFIED (2) Anemia Code(s): D64.9 - ANEMIA, UNSPECIFIED Qualifiers: Iron deficiency anemia type: chronic blood loss (3) Atrial fibrillation with RVR Code(s): I48.91 - UNSPECIFIED ATRIAL FIBRILLATION (4) Sepsis Code(s): A41.9 - SEPSIS, UNSPECIFIED ORGANISM Qualifiers: Sepsis type: sepsis due to unspecified organism Sepsis acute organ dysfun ction status: without acute organ dysfunction Qualified Code(s): A41.9 - Sepsis, unspecified organism Assessment/Plan - Problems (1) Acute and chronic respiratory failure Assessment/Plan: pulm following vent dependent compassionate weaning TODAY morphine added for resp distress prn pall care on case Code(s): J96.20 - ACUTE AND CHR RESP FAILURE, UNSP W HYPOXIA OR HYPERCAPNIA
[2019-05-11] MEDS: AMINO ACIDS/PROTEIN HYDROLYS 30 ML LIQUID.PKT GT SCH (09:00)
[2019-05-11] MEDS ORDERED: MORPHINE SULFATE/0.9% NACL/PF 100 MG/100 ML BAG IVPB SCH (10:30)
[2019-05-11] MEDS ORDERED: morphine SULFATE 4 MG/ML VIAL IVPUSH ONE (10:52)
[2019-05-11] MEDS: MULTIVIT-MINERALS ORAL LIQUID GT SCH (11:07)
[2019-05-11] MEDS: AMIODARONE HCL 200 MG TABLET PO SCH (11:26)
[2019-05-11] MEDS: APIXABAN 5 MG TABLET PEG SCH (11:27)
[2019-05-11] MEDS: ZINC SULFATE 220 MG CAPSULE (FP) GT SCH (11:27)
[2019-05-11] MEDS: METOPROLOL TARTRATE 25 MG TABLET (FP) PEG SCH (11:27)
[2019-05-11] MEDS: FUROSEMIDE 40 MG/4 ML INJECTABLE VIAL IVPUSH SCH (11:27)
[2019-05-11] MEDS: ASCORBIC ACID 500 MG/5 ML UNIT DOSE CUP GT SCH (11:27)
[2019-05-11] MEDS: PANTOPRAZOLE SODIUM 40 MG VIAL IVPUSH SCH (11:27)
[2019-05-11] MEDS: ZINC OXIDE 20% TOPICAL OINTMENT 30 GM TUBE TP SCH (11:28)
[2019-05-11] MEDS: NYSTATIN 100,000 UNIT/GM TOPICAL CREAM 15 GM TUBE TP SCH (11:31)
[2019-05-11] MEDS: COLLAGENASE CLOSTRIDIUM HIST. 30 GRAMS TUBE TP SCH (11:31)
[2019-05-11] MEDS ORDERED: LORazepam 2 MG/ML SDV VIAL IVPUSH PRN (11:34)
--- NOTE | 2019-05-11 11:37 | PN ---
Progress Note (short form) - Note Progress Note: PULMONARY For compassionate wean today. Vital Signs Period Temp Pulse Resp BP Sys/[place] Pulse Ox Last 24 Hr 97.7 F-99.0 F 87-107 15-24 139-158/67-101 94-99 Gen: vented, poorly responsive Heart: RRR Lung: scattered rhonchi Abd: soft, nontender Ext: + edema CBC, BMP 05/04/19 05:28 05/04/19 05:28 Active Medications Collagenase (Santyl -) 1 applic TP DAILY [facility]; Protocol Last Admin: 05/11/19 11:31 Dose: Not Given Documented by: Morphine Sulfate (Morphine 100mg/100ml-0.9% Nacl) 100 mg in 100 mls @ 1 mls/hr IVPB TITR [facility]; Protocol Lorazepam (Ativan Injection -) 2 mg IVPUSH Q1H PRN PRN Reason: ANXIETY Nystatin (Mycostatin Cream -) 1 applic TP BID [facility] Last Admin: 05/11/19 11:31 Dose: Not Given Documented by: A/P Chronic Respiratory failure UTI Pneumonia Suspected Sacral Decubitus Ulcer Infection C Diff Colitis Septic Shock resolving GI Bleed likely Upper Acute Blood Loss Anemia Atrial Fibrillation with RVR CAD COPD HTN DM h/o CVA - start morphine gtt, titrate to comfort - trach collar - ativan as needed
[2019-05-11 18:10] VITALS: BP 105/55; PULSE 104; TEMP 98.6
--- NOTE | 2019-05-11 23:36 | PN ---
Progress Note (short form) - Note Progress Note: Nursing team notified me to examine pt at 22:55. Pt unresponsive, even to painful stimuli, pupils fixed and non-reactive. Pt has no spontaneous breathing, no heart sounds or breath sounds. No carotid, or femoral pulses present. No heart sounds or breath sounds heard. Time of 23:00 05/11/19 Family not at bedside. Tried to call the daughter as she is the next of kin but was unable to reach. Primary team will be notified. Body to be released to home of family's choice once primary team asked.
[2019-05-12] MEDS: NYSTATIN 100,000 UNIT/GM TOPICAL CREAM 15 GM TUBE TP SCH (02:40)
== END 2019-05-12 01:00 | disposition expired | DRG 870 ==
LOC: JER 13:51 → JERBED 16:44 → JICU 22:03 → J5S 05-03 18:18 → JICU 05-04 00:35 → J5S 05-04 18:28
PROVIDERS: ADMIT Family Medicine; ATTEND Family Medicine
PROC: 5A1955Z Respiratory Ventilation, Greater than 96 Consecutive Hours (ICD-10-PCS; principal; 2019-04-22)
PROC: 3E0G76Z Introduction of Nutritional Substance into Upper GI, Via Natural or Artificial Opening (ICD-10-PCS; 2019-04-22)
PROC: 02HV33Z Insertion of Infusion Device into Superior Vena Cava, Percutaneous Approach (ICD-10-PCS; 2019-04-23)
PROC: B548ZZA Ultrasonography of Superior Vena Cava, Guidance (ICD-10-PCS; 2019-04-23)
PROC: 30233N1 Transfusion of Nonautologous Red Blood Cells into Peripheral Vein, Percutaneous Approach (ICD-10-PCS; 2019-04-23)
PROC: 02HV33Z Insertion of Infusion Device into Superior Vena Cava, Percutaneous Approach (ICD-10-PCS; 2019-04-30)
PROC: B548ZZA Ultrasonography of Superior Vena Cava, Guidance (ICD-10-PCS; 2019-04-30)
DX: A41.51 Sepsis due to Escherichia coli [E. coli] (principal); L89.154 Pressure ulcer of sacral region, stage 4; R65.21 Severe sepsis with septic shock; J18.9 Pneumonia, unspecified organism; R53.2 Functional quadriplegia; J96.21 Acute and chronic respiratory failure with hypoxia; E87.2 Acidosis; N17.9 Acute kidney failure, unspecified; I48.11 Longstanding persistent atrial fibrillation; K92.1 Melena; D62 Acute posthemorrhagic anemia; J98.11 Atelectasis; I69.351 Hemiplegia and hemiparesis following cerebral infarction affecting right dominant side; K92.2 Gastrointestinal hemorrhage, unspecified; N39.0 Urinary tract infection, site not specified; A04.72 Enterocolitis due to Clostridium difficile, not specified as recurrent; E87.0 Hyperosmolality and hypernatremia; Z93.0 Tracheostomy status; Z93.1 Gastrostomy status; I25.10 Atherosclerotic heart disease of native coronary artery without angina pectoris; E87.6 Hypokalemia; Z66 Do not resuscitate; I49.5 Sick sinus syndrome; I48.0 Paroxysmal atrial fibrillation; Z95.0 Presence of cardiac pacemaker; J44.9 Chronic obstructive pulmonary disease, unspecified; E11.9 Type 2 diabetes mellitus without complications; I10 Essential (primary) hypertension; E86.0 Dehydration; Z79.01 Long term (current) use of anticoagulants; D64.9 Anemia, unspecified; R74.0 Nonspecific elevation of levels of transaminase and lactic acid dehydrogenase [LDH]; R91.1 Solitary pulmonary nodule; Z95.2 Presence of prosthetic heart valve; I69.320 Aphasia following cerebral infarction; R94.5 Abnormal results of liver function studies; Z79.4 Long term (current) use of insulin; I25.2 Old myocardial infarction; F03.90 Unspecified dementia, unspecified severity, without behavioral disturbance, psychotic disturbance, mood disturbance, and anxiety
CPT/HCPCS: 36415; 36430; 36511; 71045-TC-FY; 76705-TC; 80048; 80053; 81003; 82272; 82550; 82607; 82803; 82962; 83540; 83550; 83605; 83735; 83880; 84100; 84439; 84484; 85025; 85027; 85610; 85730; 86850; 86900; 86901; 86922; 87040; 87045; 87046; 87070; 87086; 87177; 87186; 87205; 87209; 87324; 87449; 87804; 93005; 93010; 93306-TC; 94002; 94640; 99285-25; G0480; J0131; J0282; J0878; J1756; J7030; P9038; P9058